=== PATIENT | female | born 1935 | race Caucasian/White ===

== ENCOUNTER → 2016-07-31 | Outpatient (CLI) | payer OTHER, MEDICARE ==
[~2016-07-31] MED LIST: ACT30 PO; ADVIN25050 INH; ALBUAER2 INH; ASPEC81 PO; ASPI81TA28 PO; ATOR-24 PO; CLC100 PO; DOCU-94 PO; FLUO20CA35 PO; FURO-85 PO; GABA-113 PO; GABA1CAP PO; GABA300C19 PO; GLC500 PO; HYDR-4079 PO; LISI40TA PO; LSX20 PO; METF-384 PO; METO25TA3 PO; MRLP17 PO; MULT-506 PO; MULTTAB58 PO; NRN/600 PO; NTRGSL/4 SL; OXYC-57 PO; POTA10CA28 PO; PRAM1AER EXT; PRAV20TA PO; PRAV40TA PO; PRLSR20 PO; PROM25TA9 PO; SENN-65 PO; VERA240T20 PO; probiotic PO
--- NOTE | 2016-07-31 13:24 | MAMMOGRAPHY REPORT ---
BILATERAL DIGITAL SCREENING MAMMOGRAM WITH CAD: 07/31/2016 TECHNIQUE: Current study was also evaluated with a Computer Aided Detection (CAD) system. Bilatera l CC and MLO views were obtained. COMPARISON: Comparison is made to exams dated: 07/28/2015 mammogram, 05/31/2011 mammogram, 2 mammogram, 07/10/2013 mammogram, 07/22/2014 mammogram, and 07/17/2013 mammogram - [facility]. BREAST COMPOSITION: There are scattered areas of fibroglandular density in both breasts. FINDINGS: No suspicious masses, calcifications, or areas of architectural distortion are noted in e ither breast. There has been no significant interval change compared to prior exams. IMPRESSION: ACR BI-RADS CATEGORY 1: NEGATIVE There is no mammographic evidence of malignancy. A 1 year screening mammogram is recommended. The p atient will receive written notification of the results. Approximately 10% of breast cancers are not detected with mammography. A negative mammographic repor t should not delay biopsy if a clinically suggestive mass is present. Cristal Barlow M.D. ah/:07/31/2016 11:55:19 Lane Marker Installer: Caroline DACOSTA(R)(M), [facility] letter sent: Normal 1/2 BI-RADS Code: ACR BI-RADS Category 1: Negative
== END | disposition home or self-care (01) ==
LOC: C.MAMM 10:20
PROVIDERS: ATTEND Family Medicine
DX: Z12.31 Encounter for screening mammogram for malignant neoplasm of breast (principal)

== ENCOUNTER 2016-12-06 13:40 | Inpatient (IN) | payer OTHER, MEDICARE ==
[~2016-12-06] VITALS: Ht 160 cm; Wt 83.7 kg
[~2016-12-06 13:40] MED LIST changes: -ASPI81TA28 PO; -ATOR-24 PO; -DOCU-94 PO; -FURO-85 PO; -GABA-113 PO; +GABA-1218 PO; -GABA300C19 PO; -HYDR-4079 PO; -METF-384 PO; -METO25TA3 PO; -MULTTAB58 PO; -NRN/600 PO; -OXYC-57 PO; -PRAV40TA PO; -PROM25TA9 PO; -SENN-65 PO
[2016-12-06] MEDS ORDERED: SODIUM CHLORIDE 0.9% 1000ML 1,000 ML IV STA (13:59)
[2016-12-06] MEDS ORDERED: PRAV40TA PO (14:20)
[2016-12-06] MEDS ORDERED: DOCU-94 PO (14:20)
[2016-12-06] MEDS ORDERED: FLUO20CA35 PO (14:20)
[2016-12-06] MEDS ORDERED: GABA-113 PO (14:20)
[2016-12-06] MEDS ORDERED: SENN-65 PO (14:20)
[2016-12-06] MEDS ORDERED: ASPI81TA28 PO (14:20)
[2016-12-06] MEDS ORDERED: PROM25TA9 PO (14:20)
[2016-12-06] MEDS ORDERED: FURO-85 PO (14:21)
[2016-12-06] MEDS ORDERED: POTA10CA28 PO (14:21)
[2016-12-06] MEDS ORDERED: MULTTAB58 PO (14:21)
[2016-12-06] MEDS ORDERED: HYDR-4079 PO (14:21)
[2016-12-06] MEDS ORDERED: LISI40TA PO (14:21)
[2016-12-06] MEDS ORDERED: METF-384 PO (14:21)
[2016-12-06] MEDS ORDERED: VERA240T20 PO (14:21)
[2016-12-06] MEDS ORDERED: PRLSR20 PO (14:21)
[2016-12-06] MEDS ORDERED: ONDANSETRON 8 MG/54 ML D5W IV STA (14:30)
[2016-12-06 14:40] LABS: BASO % 0.2 %; BASO ABS # 0.02 K/uL (0-0.2); COMPLETE YES; EOS % 1.2 %; HEMATOCRIT 34.5 % (37-47); IG% 0.2 %; LYMPH % 15.8 %; MEAN CELL VOLUME 85.8 fL (80-100); MEAN CORPUSCULAR HEMOGLOBIN 27.6 pg (25-34); MEAN CORPUSCULAR HGB CONC 32.2 g/dl (32-36); MEAN PLATELET VOLUME 11.4 fL (7.4-10.4); MONO % 5.3 %; NEUT % 77.3 %; PLATELET COUNT 237 K/uL (130-400); RED BLOOD COUNT 4.02 M/uL (4.2-5.4); WHITE BLOOD COUNT 10.15 K/uL (4.8-10.8)
[2016-12-06] MEDS: HYDROmorphone INJ 0.5 MG/0.5 ML SYR IV PRN ×2 (14:52→16:33)
--- NOTE | 2016-12-06 15:29 | DIAGNOSTIC IMAGING REPORT ---
ABDOMEN AND PELVIS CT WITHOUT CONTRAST CT DOSE: 1327.31 mGy.cm HISTORY: Pain Acute LLQ pain, prior h/o of stones TECHNIQUE: Multiaxial CT images of the abdomen and pelvis were performed without the use of intravenous and oral contrast according to the standard department stone protocol. COMPARISON STUDY: None. FINDINGS: Nonspecific bibasilar interstitial and/or dependent atelectatic change. Findings suggesting mild hepatic cirrhosis. Spleen is uniform. External hernia is present. Adrenal glands are normal. Right kidney is negative for calcification or hydronephrosis. There is a right renal extrarenal pelvis. Left kidney demonstrates several calcifications. There is a 1 cm calcification within a distended left renal pelvis. There is a small amount of perinephric as well as periureteral infiltrative change. There is a 3 mm nonobstructing calcification at the lower aspect of left kidney with an additional 5 mm calcification in mid aspect left kidney. There is moderate left hydroureter. This distends to the level of the distal left ureter where 2 obstructing calcifications are present. These measure 2 and 4 mm respectively. Bladder is midline. There are no contained bladder calcifications. Bowel pattern is remarkable for chronic sigmoid diverticulosis. There is no evidence for acute diverticulitis. There is a trace amount of reactive fluid within the pelvic cul-de-sac region. IMPRESSION: 1.Two Obstructing calculi distal left ureter measuring 2 and 4 mm respectively. 2. 1 cm calcification within a moderately distended left renal pelvis. 3. Nonobstructing additional renal calcifications as described. 4. Mild hepatic cirrhosis. 5. Chronic sigmoid diverticulosis. 6. Trace free fluid within pelvic cul-de-sac most likely reactive Electronically signed by: Neri Shankar M.D. 12/06/2016 3:28 PM Dictated Date/Time: 12/06/2016 3:21 PM
[2016-12-06 15:39] LABS: ALKALINE PHOSPHATASE 84 U/L (45-117); ALT/SGPT 15 U/L (12-78); AST/SGOT 21 U/L (15-37); BLOOD UREA NITROGEN 24 mg/dl (7-18); BUN/CREATININE RATIO 17.3 (10-20); CALCIUM 10.1 mg/dl (8.5-10.1); CARBON DIOXIDE 28 mmol/L (21-32); CHLORIDE 106 mmol/L (98-107); GLUCOSE 116 mg/dl (70-99); POTASSIUM 4.6 mmol/L (3.5-5.1); SODIUM 142 mmol/L (136-145)
[2016-12-06 16:36] LABS: URINE APPEARANCE CLEAR (CLEAR); URINE BILIRUBIN NEG (NEG); URINE COLOR YELLOW; URINE NITRITE NEG (NEG); URINE SPECIFIC GRAVITY 1.015 (1.000-1.030); UROBILINOGEN NEG (NEG); ZZUR CULT IF INDIC CLEAN CATCH NO
[2016-12-06 16:37] LABS: MANUAL MICROSCOPIC REQUIRED? NO; REVIEW REQ? NO
[2016-12-06] MEDS ORDERED: TAMSULOSIN HCL 0.4 MG CAP PO SCH (17:30)
[2016-12-06] MEDS ORDERED: ONDANSETRON INJ 2 MG/ML 2 ML VIAL IV PRN (17:30)
[2016-12-06] MEDS ORDERED: NRN/600 PO (17:32)
[2016-12-06] MEDS ORDERED: ATOR-24 PO (17:32)
[2016-12-06] MEDS ORDERED: OXYC-57 PO (17:32)
[2016-12-06] MEDS ORDERED: METO25TA3 PO (17:32)
[2016-12-06] MEDS ORDERED: GLUCOSE 40% GEL 15 GM TUBE PO PRN (17:45)
[2016-12-06] MEDS ORDERED: GLUCOSE 10 TABS/TUBE PO PRN (17:45)
[2016-12-06] MEDS ORDERED: GLUCAGON FOR INJ 1 MG VIAL SQ PRN (17:45)
[2016-12-06] MEDS ORDERED: DEXTROSE 50% 50 ML SYR IV PRN (17:45)
--- NOTE | 2016-12-06 18:18 | History and Physical ---
History & Physical Date & Time of Service: Dec 06, 2016 ~ 17:15 Chief Complaint: Lower Left Side Pain Primary Care Physician: Steve Hooker III, M.D. History of Present Illness 81 year old female who presents to the ER with left sided back pain and LLQ abdominal pain. Patient reports she woke up this morning feeling in her usual state of health. Then around 0930, the pain came on suddenly. She reports the pain was #8/10 at its worst. She reports it started on the left lower side of her back and wrapped around to her abdomen. She reports nausea but denies vomiting. No fever or chills. She denies hematuria and urinary symptoms. No chest pain, lightheadedness, dizziness, diaphoresis, or syncope. She has chronic exertional shortness of breath which is unchanged. Chronic lower extremity edema which is unchanged as well. In the ER, CT abd/pelvis is showing two obstructing calculi distal left ureter measuring 2 and 4 mm respectively. Renal functions at baseline. She was given IVF, Zofran, and Dilaudid. Past Medical/Surgical History Medical Problems: (1) CAD (coronary artery disease) Permanent Comment: 1996 - PTCA to RCA 2011 - cath that showed patent RCA and no further disease Status: Chronic (2) Chronic back pain Status: Chronic (3) CKD stage 3 due to type 1 diabetes mellitus Status: Chronic (4) DM type 2 (diabetes mellitus, type 2) Status: Chronic (5) Dyslipidemia Status: Chronic (6) GERD (gastroesophageal reflux disease) Status: Chronic Surgical Problems: (1) S/P appendectomy Status: Chronic (2) S/P cholecystectomy Status: Chronic (3) S/P hysterectomy Status: Chronic Family History Diabetes mellitus MOTHER Social History Smoking Status: Former Smoker Alcohol Use: occasionally Immunizations History of Influenza Vaccine: Yes Influenza Vaccine Date: Feb 27, 2016 History of Tetanus Vaccine?: Yes Tetanus Immunization Date: Feb 01, 2015 History of Pneumococcal: Yes Pneumococcal Date: Dec 29, 2009 Multi-Drug Resistant Organisms History of MDRO: No Allergies Coded Allergies: Adhesives (Verified Allergy, Unknown, ALLERGY TO TAPE, 09/26/11) Home Medications Scheduled Aspirin (Aspirin Ec), 81 MG PO DAILY Atorvastatin (Lipitor), 1 TAB PO DAILY Docusate Sodium (Colace), 100 MG PO BID Fluoxetine (Prozac), 20 MG PO DAILY Gabapentin (Neurontin), 1 TAB PO BID Lisinopril (Zestril), 20 MG PO DAILY Metformin Hcl (Glucophage), 500 MG PO BID Metoprolol Succ (Toprol Xl) (Toprol-Xl), 25 MG PO DAILY Multiple Vitamin (Multivitamin), 1 TAB PO DAILY Omeprazole (Prilosec), 20 MG PO DAILY Senna/Docusate Sod (Senokot S), 1 TAB PO DAILY Scheduled PRN Furosemide (Lasix), 20 MG PO DAILY PRN for edema Oxycodone/Acetaminophen 5MG/325MG (Percocet 5MG/325MG), 1 TABLET PO Q6H PRN for Pain Potassium Chloride (Micro-K Ext Rel), 10 MEQ PO DAILY PRN for with Lasix Promethazine Hcl (Phenergan), 25 MG PO Q6H PRN for Nausea Review of Systems ROS per HPI, all other systems reviewed and negative Physical Exam Vital Signs Date Time Temp Pulse Resp B/P (MAP) Pulse Ox O2 Delivery O2 Flow Rate FiO2 12/06/16 17:06 56 20 126/69 92 Room Air 12/06/16 15:30 55 16 131/65 92 Room Air 12/06/16 14:15 52 12/06/16 13:57 36.3 51 20 150/73 96 Room Air General Appearance: no apparent distress Head: normocephalic Eyes: normal inspection ENT: hearing grossly normal Neck: supple, no JVD Respiratory/Chest: lungs clear, normal breath sounds, no respiratory distress Cardiovascular: regular rate, rhythm, normal peripheral pulses, + pertinent finding (+2-3 edema BLLE) Abdomen/GI: normal bowel sounds, soft, + tenderness (LLQ) Back: no CVA tenderness Extremities/Musculoskelatal: normal inspection, no calf tenderness Neurologic/Psych: no motor/sensory deficits, alert, normal mood/affect, oriented x 3 Skin: normal color, warm/dry Diagnostics Laboratory Results Results Past 24 Hours Test 12/06/16 14:30 12/06/16 16:23 Range/Units White Blood Count 10.15 4.8-10.8 K/uL Red Blood Count 4.02 4.2-5.4 M/uL Hemoglobin 11.1 12.0-16.0 g/dL Hematocrit 34.5 37-47 % Mean Corpuscular Volume 85.8 80-100 fL Mean Corpuscular Hemoglobin 27.6 25-34 pg Mean Corpuscular Hemoglobin Concent 32.2 32-36 g/dl Platelet Count 237 130-400 K/uL Mean Platelet Volume 11.4 7.4-10.4 fL Neutrophils (%) (Auto) 77.3 % Lymphocytes (%) (Auto) 15.8 % Monocytes (%) (Auto) 5.3 % Eosinophils (%) (Auto) 1.2 % Basophils (%) (Auto) 0.2 % Neutrophils # (Auto) 7.85 1.4-6.5 K/uL Lymphocytes # (Auto) 1.60 1.2-3.4 K/uL Monocytes # (Auto) 0.54 0.11-0.59 K/uL Eosinophils # (Auto) 0.12 0-0.5 K/uL Basophils # (Auto) 0.02 0-0.2 K/uL RDW Standard Deviation 50.1 36.4-46.3 fL RDW Coefficient of Variation 15.8 11.5-14.5 % Immature Granulocyte % (Auto) 0.2 % Immature Granulocyte # (Auto) 0.02 0.00-0.02 K/uL Sodium Level 142 136-145 mmol/L Potassium Level 4.6 3.5-5.1 mmol/L Chloride Level 106 98-107 mmol/L Carbon Dioxide Level 28 21-32 mmol/L Anion Gap 8.0 3-11 mmol/L Blood Urea Nitrogen 24 7-18 mg/dl Creatinine 1.40 0.60-1.20 mg/dl Est Creatinine Clear Calc Drug Dose 33.4 ml/min Estimated GFR () 41.3 Estimated GFR (Non- 35.6 BUN/Creatinine Ratio 17.3 10-20 Random Glucose 116 70-99 mg/dl Calcium Level 10.1 8.5-10.1 mg/dl Total Bilirubin 0.3 0.2-1 mg/dl Direct Bilirubin 0-0.2 mg/dl Aspartate Amino Transf (AST/SGOT) 21 15-37 U/L Alanine Aminotransferase (ALT/SGPT) 15 12-78 U/L Alkaline Phosphatase 84 45-117 U/L Total Protein 6.5 6.4-8.2 gm/dl Albumin 3.5 3.4-5.0 gm/dl Lipase 274 73-393 U/L Chemistry Specimen Hemolysis Urine Color YELLOW Urine Appearance CLEAR CLEAR Urine pH 5.0 4.5-7.5 Urine Specific [place] 1.015 1.000-1.030 Urine Protein NEG NEG Urine Glucose (UA) NEG NEG Urine Ketones NEG NEG Urine Occult Blood 3+ NEG Urine Nitrite NEG NEG Urine Bilirubin NEG NEG Urine Urobilinogen NEG NEG Urine Leukocyte Esterase TRACE NEG Urine WBC (Auto) 1-5 0-5 /hpf Urine RBC (Auto) 10-30 0-4 /hpf Urine Hyaline Casts (Auto) 1-5 0-5 /lpf Urine Epithelial Cells (Auto) 5-10 0-5 /lpf Urine Bacteria (Auto) NEG NEG Diagnostic Radiology CT ABD/PELVIS IMPRESSION: 1.Two Obstructing calculi distal left ureter measuring 2 and 4 mm respectively. 2. 1 cm calcification within a moderately distended left renal pelvis. 3. Nonobstructing additional renal calcifications as described. 4. Mild hepatic cirrhosis. 5. Chronic sigmoid diverticulosis. 6. Trace free fluid within pelvic cul-de-sac most likely reactive Impression Assessment and Plan RENAL CALCULI, LEFT HYDROURETER - admit to med/surg - patient presenting with left lower back and LLQ pain; CT in the ER showing 2 obstructing renal calculi with moderate hydroureter - no fever or leukocytosis, U/A does not suggest UTI, so will hold on antibiotics - renal functions at baseline - IVF, around the clock Toradol, Flomax, PRN morphine - strain urine - urology consult - NPO after midnight for possible cysto CAD - stable, no reports of chest pain - continue ASA, beta adolfo, and statin DM - hgb a1c 5.6 11/2016 - hold metformin and utilize SSI while hospitalized HTN - BP controlled, continue metoprolol and lisinopril CKD STAGE III - baseline creat runs in the low 1's - creat noted to be 1.4 today - continue to monitor, avoid nephrotoxic agents when able GERD - continue PPI DVT PROPHYLAXIS - SCDs due to microscopic hematuria in the setting of renal calculi and also due to possible cysto tomorrow DISPO - In my clinical judgment this beneficiary meets acute admission criteria, established by [facility], that includes being hospitalized through two midnights. Addendum: This is a 81 year old female with a PMH of CAD, DM2, CKD stage 3, HTN presents with L groin pain; found to have kidney stones (2mm and 4mm) with hydroureter on the L. She is comfortable now after medications Nausea, which subsided with medications no fevers/chills Plan: Give IVFs, pain control, Flomax, urology consult, strain urine VTE Prophylaxis VTE Risk Assessment Done? Y/N: Yes Risk Level: Moderate
[2016-12-06 20:45] VITALS: BP 117/68; PULSE 49; TEMP 36.9; O2SAT 96; Ht 160 cm; Wt 83.7 kg
[2016-12-06] MEDS ORDERED: INSULIN ASPART 100 UNITS/ML 3 ML PEN SC SCH (21:00)
[2016-12-06] MEDS: MoRPHine SULFATE 4 MG/ML 1 ML CARP\\VIAL IV PRN (21:53)
[2016-12-06] MEDS: SODIUM CHLORIDE 0.9% 1000ML 1,000 ML IV SCH (21:53)
[2016-12-06] MEDS: KETOROLAC TROMETHAMINE 15 MG/ML VIAL IV. SCH (21:58)
[2016-12-06] MEDS: DOCUSATE SODIUM 100 MG CAP PO SCH (22:00)
[2016-12-06] MEDS: GABAPENTIN 600 MG TAB PO SCH (22:00)
--- NOTE | 2016-12-06 22:06 | EMERGENCY ROOM VISIT NOTE ---
History Report prepared by Joel: Linnea Curiel Under the Supervision of: Dr. Steve Corea M.D. First contact with patient: 13:59 Chief Complaint: ABDOMINAL PAIN Stated Complaint: LOWER LEFT SIDE PAIN Nursing Triage Summary: triage nte: pt reports left abd pain since apporx 0900. pt reports nausea. History of Present Illness The patient is a 81 year old female who presents to the Emergency Room with complaints of constant abdominal pain starting five hours ago. The patient currently rates her pain as an 8/10 in severity. She states that she felt fine when she woke up this morning. She reports that she took a Percocet at home with no relief. She notes that she has Percocet for her back pain. She complains of nausea and chills. She denies new back pain, chest pain, shortness of breath, urinary symptoms, melena, hematochezia, fevers, and numbness of tingling in her legs. She states that she has never had this pain before. Source of History: patient Onset: five hours ago Position: abdomen Symptom Intensity: 8/10 Timing: constant Associated Symptoms: + chills, + nausea, No fevers, No chest pain, No SOB, No back pain, No melena, No hematochezia, No urinary symptoms Note: The patient denies any numbness and tingling in her legs. Review of Systems See HPI for pertinent positives and negatives. A total of ten systems were reviewed and were otherwise negative. Past Medical & Surgical Medical Problems: (1) CAD (coronary artery disease) (2) Chronic back pain (3) CKD stage 3 due to type 1 diabetes mellitus (4) DM type 2 (diabetes mellitus, type 2) (5) Dyslipidemia (6) GERD (gastroesophageal reflux disease) Surgical Problems: (1) S/P appendectomy (2) S/P cholecystectomy (3) S/P hysterectomy Family History No pertinent family history Social History Smoking Status: Former Smoker Alcohol Use: none Drug Use: none Marital Status: Housing Status: lives with significant other Occupation Status: retired Current/Historical Medications Scheduled Aspirin (Aspirin Ec), 81 MG PO DAILY Atorvastatin (Lipitor), 1 TAB PO DAILY Docusate Sodium (Colace), 100 MG PO BID Fluoxetine (Prozac), 20 MG PO DAILY Gabapentin (Neurontin), 1 TAB PO BID Lisinopril (Zestril), 20 MG PO DAILY Metformin Hcl (Glucophage), 500 MG PO BID Metoprolol Succ (Toprol Xl) (Toprol-Xl), 25 MG PO DAILY Multiple Vitamin (Multivitamin), 1 TAB PO DAILY Omeprazole (Prilosec), 20 MG PO DAILY Senna/Docusate Sod (Senokot S), 1 TAB PO DAILY Scheduled PRN Furosemide (Lasix), 20 MG PO DAILY PRN for edema Oxycodone/Acetaminophen 5MG/325MG (Percocet 5MG/325MG), 1 TABLET PO Q6H PRN for Pain Potassium Chloride (Micro-K Ext Rel), 10 MEQ PO DAILY PRN for with Lasix Promethazine Hcl (Phenergan), 25 MG PO Q6H PRN for Nausea Allergies Coded Allergies: Adhesives (Verified Allergy, Unknown, ALLERGY TO TAPE, 09/26/11) Physical Exam Vital Signs Date Time Temp Pulse Resp B/P (MAP) Pulse Ox O2 Delivery O2 Flow Rate FiO2 12/06/16 17:06 56 20 126/69 92 Room Air 12/06/16 15:30 55 16 131/65 92 Room Air 12/06/16 14:15 52 12/06/16 13:57 36.3 51 20 150/73 96 Room Air Physical Exam GENERAL: Awake, alert, uncomfortable appearing, in no distress HENT: Normocephalic, atraumatic. Oropharynx unremarkable. EYES: Normal conjunctiva. Sclera non-icteric. NECK: Supple. No nuchal rigidity. FROM. No JVD. RESPIRATORY: Clear to auscultation. CARDIAC: Bradycardiac rate, normal rhythm. Extremities warm and well perfused. Pulses equal. ABDOMEN: Soft, non-distended. Left lower quadrant tenderness to palpation. No rebound or guarding. No masses. RECTAL: Deferred. MUSCULOSKELETAL: Chest examination reveals no tenderness. The back is symmetrical on inspection without obvious abnormality. There is no CVA tenderness to palpation. No joint edema. LOWER EXTREMITIES: Calves are equal size bilaterally and non-tender. No edema. No discoloration. NEURO: Normal sensorium. No sensory or motor deficits noted. SKIN: No rash or jaundice noted. Medical Decision & Procedures ER Provider Diagnostic Interpretation: Radiology results as stated below per my review and radiologist interpretation: ABDOMEN AND PELVIS CT WITHOUT CONTRAST CT DOSE: 1327.31 mGy.cm HISTORY: Pain Acute LLQ pain, prior h/o of stones TECHNIQUE: Multiaxial CT images of the abdomen and pelvis were performed without the use of intravenous and oral contrast according to the standard department stone protocol. COMPARISON STUDY: None. FINDINGS: Nonspecific bibasilar interstitial and/or dependent atelectatic change. Findings suggesting mild hepatic cirrhosis. Spleen is uniform. External hernia is present. Adrenal glands are normal. Right kidney is negative for calcification or hydronephrosis. There is a right renal extrarenal pelvis. Left kidney demonstrates several calcifications. There is a 1 cm calcification within a distended left renal pelvis. There is a small amount of perinephric as well as periureteral infiltrative change. There is a 3 mm nonobstructing calcification at the lower aspect of left kidney with an additional 5 mm calcification in mid aspect left kidney. There is moderate left hydroureter. This distends to the level of the distal left ureter where 2 obstructing calcifications are present. These measure 2 and 4 mm respectively. Bladder is midline. There are no contained bladder calcifications. Bowel pattern is remarkable for chronic sigmoid diverticulosis. There is no evidence for acute diverticulitis. There is a trace amount of reactive fluid within the pelvic cul-de-sac region. IMPRESSION: 1.Two Obstructing calculi distal left ureter measuring 2 and 4 mm respectively. 2. 1 cm calcification within a moderately distended left renal pelvis. 3. Nonobstructing additional renal calcifications as described. 4. Mild hepatic cirrhosis. 5. Chronic sigmoid diverticulosis. 6. Trace free fluid within pelvic cul-de-sac most likely reactive Electronically signed by: Neri Shankar M.D. 12/06/2016 3:28 PM Dictated Date/Time: 12/06/2016 3:21 PM Laboratory Results 12/06/16 14:30 Red Blood Count 4.02, Mean Corpuscular Volume 85.8, Mean Corpuscular Hemoglobin 27.6, Mean Corpuscular Hemoglobin Concent 32.2, Mean Platelet Volume 11.4, Neutrophils (%) (Auto) 77.3, Lymphocytes (%) (Auto) 15.8, Monocytes (%) (Auto) 5.3, Eosinophils (%) (Auto) 1.2, Basophils (%) (Auto) 0.2, Neutrophils # (Auto) 7.85, Lymphocytes # (Auto) 1.60, Monocytes # (Auto) 0.54, Eosinophils # (Auto) 0.12, Basophils # (Auto) 0.02 12/06/16 14:30 Test 12/06/16 14:30 12/06/16 16:23 White Blood Count 10.15 K/uL (4.8-10.8) Red Blood Count 4.02 M/uL (4.2-5.4) Hemoglobin 11.1 g/dL (12.0-16.0) Hematocrit 34.5 % (37-47) Mean Corpuscular Volume 85.8 fL (80-100) Mean Corpuscular Hemoglobin 27.6 pg (25-34) Mean Corpuscular Hemoglobin Concent 32.2 g/dl (32-36) Platelet Count 237 K/uL (130-400) Mean Platelet Volume 11.4 fL (7.4-10.4) Neutrophils (%) (Auto) 77.3 % Lymphocytes (%) (Auto) 15.8 % Monocytes (%) (Auto) 5.3 % Eosinophils (%) (Auto) 1.2 % Basophils (%) (Auto) 0.2 % Neutrophils # (Auto) 7.85 K/uL (1.4-6.5) Lymphocytes # (Auto) 1.60 K/uL (1.2-3.4) Monocytes # (Auto) 0.54 K/uL (0.11-0.59) Eosinophils # (Auto) 0.12 K/uL (0-0.5) Basophils # (Auto) 0.02 K/uL (0-0.2) RDW Standard Deviation 50.1 fL (36.4-46.3) RDW Coefficient of Variation 15.8 % (11.5-14.5) Immature Granulocyte % (Auto) 0.2 % Immature Granulocyte # (Auto) 0.02 K/uL (0.00-0.02) Anion Gap 8.0 mmol/L (3-11) Est Creatinine Clear Calc Drug Dose 33.4 ml/min Estimated GFR () 41.3 Estimated GFR (Non- 35.6 BUN/Creatinine Ratio 17.3 (10-20) Calcium Level 10.1 mg/dl (8.5-10.1) Total Bilirubin 0.3 mg/dl (0.2-1) Direct Bilirubin mg/dl (0-0.2) Aspartate Amino Transf (AST/SGOT) 21 U/L (15-37) Alanine Aminotransferase (ALT/SGPT) 15 U/L (12-78) Alkaline Phosphatase 84 U/L (45-117) Total Protein 6.5 gm/dl (6.4-8.2) Albumin 3.5 gm/dl (3.4-5.0) Lipase 274 U/L (73-393) Chemistry Specimen Hemolysis Urine Color YELLOW Urine Appearance CLEAR (CLEAR) Urine pH 5.0 (4.5-7.5) Urine Specific [place] 1.015 (1.000-1.030) Urine Protein NEG (NEG) Urine Glucose (UA) NEG (NEG) Urine Ketones NEG (NEG) Urine Occult Blood 3+ (NEG) Urine Nitrite NEG (NEG) Urine Bilirubin NEG (NEG) Urine Urobilinogen NEG (NEG) Urine Leukocyte Esterase TRACE (NEG) Urine WBC (Auto) 1-5 /hpf (0-5) Urine RBC (Auto) 10-30 /hpf (0-4) Urine Hyaline Casts (Auto) 1-5 /lpf (0-5) Urine Epithelial Cells (Auto) 5-10 /lpf (0-5) Urine Bacteria (Auto) NEG (NEG) Laboratory results reviewed by me Medications Administered Medications (Trade) Dose Ordered Sig/Eunice Route Start Time Stop Time Status Last Admin Dose Admin Sodium Chloride 1,000 ml @ 125 mls/hr Q8H STAT IV 12/06/16 13:59 12/06/16 18:31 DC 12/06/16 14:52 125 MLS/HR Ondansetron HCl (Zofran 8mg Iv) 8 mg NOW STAT IV 12/06/16 14:30 12/06/16 14:32 DC 12/06/16 14:52 8 MG Hydromorphone HCl (Dilaudid Inj) 0.5 mg Q15M PRN IV 12/06/16 14:30 12/06/16 20:12 DC 12/06/16 16:33 0.5 MG ECG Indication: abdominal pain Rate (beats per minute): 54 Rhythm: sinus bradycardia Findings: no acute ischemic change, no ectopy ED Course 1359: Ordered NSS 1000 ml @ 125 mls/hr IV. 1426: The patient was evaluated in room B11. A complete history and physical exam was performed. 1430: Ordered Dilaudid Inj 0.5 mg PRN IV pain, Zofran 8mg Iv 8 mg IV. 1653: I reevaluated the patient and she was still in some pain.. 170: Discussed the patient's case Dr. Sofía Garrison. The patient will be evaluated for further treatment and disposition. Medical Decision Medication Reconciliation: I attest that I have personally reviewed the patient' s current medication list Blood pressure screening: Patient was found to have an elevated blood pressure and will be further evaluated for it by the hospitalist. Triage Nursing notes reviewed. The patient's presentation and history were concerning for LLQ abdominal pain. Etiologies such as renal colic, appendicitis, diverticulitis, mesenteric ischemia, aortic pathology, infections, inflammatory bowel disease, PUD, biliary pathology, UTI, as well as others were entertained. Be evaluated. She was uncomfortable. She had sudden onset of pain. She had an IV established and was given Dilaudid and Zofran for symptom control. She was hydrated. The patient underwent CT imaging. This showed that she had multiple stones within the left ureter. The patient did require additional analgesia. Her CBC showed a mild anemia. The patient's chem panel, LFTs, lipase and urinalysis were unremarkable except for hematuria. The patient appears to be dealing with ureterolithiasis. Given the situation she will need further evaluation and management in the hospital. I discussed this with the patient and family. They were in agreement. Consultation was made with the [facility] hospitalist. Patient was evaluated in the Emergency Room for further management. Consults Time Called: 170 Consulting Physician: Dr. Sofía Garrison Returned Call: 170 Discussed the patient's case Dr. Sofía Garrison. The patient will be evaluated for further treatment and disposition. Impression Primary Impression: Ureterolithiasis Additional Impressions: Hydronephrosis Abdominal pain, left lower quadrant Scribe Attestation The scribe's documentation has been prepared under my direction and personally reviewed by me in its entirety. I confirm that the note above accurately reflects all work, treatment, procedures, and medical decision making performed by me. Departure Information Dispostion Being Evaluated By Hospitalist Referrals Steve Hooker III, M.D. (PCP) Patient Instructions My [facility] Problem Qualifiers
[2016-12-06 22:43] VITALS: BP 100/65; PULSE 59; TEMP 36.6; O2SAT 94
[2016-12-06] MEDS ORDERED: NURSING DECISION MEDICATION ORDER SCH (23:15)
[2016-12-07] MEDS: KETOROLAC TROMETHAMINE 15 MG/ML VIAL IV. SCH ×4 (02:31→20:37)
[2016-12-07] MEDS: SODIUM CHLORIDE 0.9% 1000ML 1,000 ML IV SCH ×2 (03:54→13:36)
[2016-12-07] MEDS ORDERED: INSULIN ASPART 100 UNITS/ML 3 ML PEN SC SCH ×2 (06:00→12:00)
[2016-12-07 07:28] VITALS: BP 93/61; PULSE 53; TEMP 36.5; O2SAT 93
[2016-12-07 07:33] LABS: HEMATOCRIT 29.8 % (37-47); MEAN CELL VOLUME 86.4 fL (80-100); MEAN CORPUSCULAR HEMOGLOBIN 27.5 pg (25-34); MEAN CORPUSCULAR HGB CONC 31.9 g/dl (32-36); MEAN PLATELET VOLUME 11.5 fL (7.4-10.4); PLATELET COUNT 171 K/uL (130-400); RED BLOOD COUNT 3.45 M/uL (4.2-5.4); WHITE BLOOD COUNT 5.47 K/uL (4.8-10.8)
[2016-12-07] MEDS ORDERED: NURSING VERBAL MED ORDER ONE (08:30)
[2016-12-07 08:36] LABS: BUN/CREATININE RATIO 21.1 (10-20); CREATININE 1.3 mg/dl (0.60-1.20); POTASSIUM 4.1 mmol/L (3.5-5.1)
[2016-12-07 08:46] LABS: CALCIUM 8.4 mg/dl (8.5-10.1)
[2016-12-07] MEDS: DOCUSATE SODIUM 100 MG CAP PO SCH ×2 (08:55→20:38)
[2016-12-07] MEDS: METOPROLOL SUCC 25MG EXT REL TAB PO SCH (08:55)
[2016-12-07] MEDS: LISINOPRIL 20 MG TAB PO SCH (08:55)
[2016-12-07] MEDS: GABAPENTIN 600 MG TAB PO SCH ×2 (08:55→20:38)
[2016-12-07] MEDS: DOCUSATE SODIUM/SENNA 50/8.6MG TAB PO SCH (08:55)
[2016-12-07] MEDS: ATORVASTATIN 40 MG TAB PO SCH (08:56)
[2016-12-07] MEDS: TAMSULOSIN HCL 0.4 MG CAP PO SCH (08:56)
[2016-12-07] MEDS: FLUOXETINE HCL 20 MG CAP PO SCH (08:56)
[2016-12-07] MEDS: PANTOprazole SOD 40 MG TAB PO SCH (08:56)
[2016-12-07] MEDS: ASPIRIN 81 MG ECTAB PO SCH (08:56)
[2016-12-07] MEDS: MULTIVITAMIN TAB PO SCH (08:56)
--- NOTE | 2016-12-07 10:01 | Progress Note ---
Subjective Date of Service: Dec 07, 2016. Subjective Pt evaluation today including: conversation w/ patient, physical exam, lab review, review of studies, review of inpatient medication list Saw/examined the patient in room 381 No problems/issues to note currently No dysuria, urinary frequency, no hematuria Has not passed stones no fevers/chills, no nausea/vomiting Problem List Medical Problems: (1) Abdominal pain, left lower quadrant Status: Acute (2) Hydronephrosis Status: Acute (3) Ureterolithiasis Status: Acute Review of Systems Constitutional: No fever, No chills, No weakness Abdomen: No pain, No nausea, No vomiting, No diarrhea Female : No dysuria, No urinary frequency, No hematuria Medications Current Inpatient Medications Medications (Trade) Dose Ordered Sig/Eunice Route Start Time Stop Time Status Last Admin Dose Admin Acetaminophen (Tylenol Tab) 650 mg Q4H PRN PO 12/06/16 17:30 01/05/17 17:29 Ondansetron HCl (Zofran Inj) 4 mg Q6H PRN IV 12/06/16 17:30 01/05/17 17:29 Tamsulosin HCl (Flomax Cap) 0.4 mg QAM PO 12/07/16 09:00 01/06/17 08:59 12/07/16 08:56 0.4 MG Ketorolac Tromethamine (Toradol Inj) 15 mg Q6H IV. 12/06/16 20:00 12/11/16 19:59 12/07/16 08:58 15 MG Morphine Sulfate (MoRPHine SULFATE INJ) 4 mg Q4H PRN IV 12/06/16 17:30 12/20/16 17:29 12/06/16 21:53 4 MG Sodium Chloride 1,000 ml @ 100 mls/hr Q10H IV 12/06/16 17:30 01/05/17 17:29 12/07/16 03:54 100 MLS/HR Aspirin (Ecotrin Tab) 81 mg DAILY PO 12/07/16 09:00 01/06/17 08:59 12/07/16 08:56 81 MG Atorvastatin Calcium (Lipitor Tab) 40 mg DAILY PO 12/07/16 09:00 01/06/17 08:59 12/07/16 08:56 40 MG Docusate Sodium (coLACE CAP) 100 mg BID PO 12/06/16 21:00 01/05/17 20:59 12/07/16 08:55 100 MG Fluoxetine HCl (Prozac Cap) 20 mg DAILY PO 12/07/16 09:00 01/06/17 08:59 12/07/16 08:56 20 MG Gabapentin (Neurontin Tab) 600 mg BID PO 12/06/16 21:00 01/05/17 20:59 12/07/16 08:55 600 MG Lisinopril (Zestril Tab) 20 mg DAILY PO 12/07/16 09:00 01/06/17 08:59 12/07/16 08:55 20 MG Metoprolol Succinate (Toprol Xl Tab) 25 mg DAILY PO 12/07/16 09:00 01/06/17 08:59 Multivitamins (Multivitamin Tab) 1 tab DAILY PO 12/07/16 09:00 01/06/17 08:59 12/07/16 08:56 1 TAB Senna/Docusate Sodium (Senokot S Tab) 1 tab DAILY PO 12/07/16 09:00 01/06/17 08:59 12/07/16 08:55 1 TAB Pantoprazole Sodium (Protonix Tab) 40 mg DAILY PO 12/07/16 09:00 01/06/17 08:59 12/07/16 08:56 40 MG Glucose (Glucose 40% Gel) 15-30 GRAMS 15 GRAMS... UD PRN PO 12/06/16 17:45 01/05/17 17:44 Glucose (Glucose Chew Tab) 4-8 Tablets 4 Tabl... UD PRN PO 12/06/16 17:45 01/05/17 17:44 Dextrose (Dextrose 50% 50ML Syringe) 25-50ML OF 50% DW IV FOR... UD PRN IV 12/06/16 17:45 01/05/17 17:44 Glucagon (Glucagon Inj) 1 mg UD PRN SQ 12/06/16 17:45 01/05/17 17:44 Objective Vital Signs Date Time Temp Pulse Resp B/P (MAP) Pulse Ox O2 Delivery O2 Flow Rate FiO2 12/07/16 07:28 36.5 53 19 93/61 (72) 93 Room Air 12/07/16 07:20 Room Air 12/07/16 00:00 Room Air 12/06/16 22:55 Room Air 12/06/16 22:43 36.6 59 18 100/65 (77) 94 Room Air 12/06/16 20:45 36.9 49 16 117/68 96 Room Air 12/06/16 18:51 55 18 126/58 95 12/06/16 17:06 56 20 126/69 92 Room Air 12/06/16 15:30 55 16 131/65 92 Room Air 12/06/16 14:15 52 12/06/16 13:57 36.3 51 20 150/73 96 Room Air Physical Exam General Appearance: no apparent distress Respiratory/Chest: chest non-tender, lungs clear, normal breath sounds, no respiratory distress, no accessory muscle use Cardiovascular: regular rate, rhythm, no edema, no murmur Abdomen: normal bowel sounds, non tender, soft Extremities: normal inspection, no pedal edema Laboratory Results Last 24 Hours Test 12/06/16 14:30 12/06/16 16:23 12/06/16 19:49 12/06/16 23:48 White Blood Count 10.15 K/uL Red Blood Count 4.02 M/uL Hemoglobin 11.1 g/dL Hematocrit 34.5 % Mean Corpuscular Volume 85.8 fL Mean Corpuscular Hemoglobin 27.6 pg Mean Corpuscular Hemoglobin Concent 32.2 g/dl Platelet Count 237 K/uL Mean Platelet Volume 11.4 fL Neutrophils (%) (Auto) 77.3 % Lymphocytes (%) (Auto) 15.8 % Monocytes (%) (Auto) 5.3 % Eosinophils (%) (Auto) 1.2 % Basophils (%) (Auto) 0.2 % Neutrophils # (Auto) 7.85 K/uL Lymphocytes # (Auto) 1.60 K/uL Monocytes # (Auto) 0.54 K/uL Eosinophils # (Auto) 0.12 K/uL Basophils # (Auto) 0.02 K/uL RDW Standard Deviation 50.1 fL RDW Coefficient of Variation 15.8 % Immature Granulocyte % (Auto) 0.2 % Immature Granulocyte # (Auto) 0.02 K/uL Sodium Level 142 mmol/L Potassium Level 4.6 mmol/L Chloride Level 106 mmol/L Carbon Dioxide Level 28 mmol/L Anion Gap 8.0 mmol/L Blood Urea Nitrogen 24 mg/dl Creatinine 1.40 mg/dl Est Creatinine Clear Calc Drug Dose 33.4 ml/min Estimated GFR () 41.3 Estimated GFR (Non- 35.6 BUN/Creatinine Ratio 17.3 Random Glucose 116 mg/dl Calcium Level 10.1 mg/dl Total Bilirubin 0.3 mg/dl Direct Bilirubin mg/dl Aspartate Amino Transf (AST/SGOT) 21 U/L Alanine Aminotransferase (ALT/SGPT) 15 U/L Alkaline Phosphatase 84 U/L Total Protein 6.5 gm/dl Albumin 3.5 gm/dl Lipase 274 U/L Chemistry Specimen Hemolysis Urine Color YELLOW Urine Appearance CLEAR Urine pH 5.0 Urine Specific [place] 1.015 Urine Protein NEG Urine Glucose (UA) NEG Urine Ketones NEG Urine Occult Blood 3+ Urine Nitrite NEG Urine Bilirubin NEG Urine Urobilinogen NEG Urine Leukocyte Esterase TRACE Urine WBC (Auto) 1-5 /hpf Urine RBC (Auto) 10-30 /hpf Urine Hyaline Casts (Auto) 1-5 /lpf Urine Epithelial Cells (Auto) 5-10 /lpf Urine Bacteria (Auto) NEG Bedside Glucose 91 mg/dl 97 mg/dl Test 12/07/16 05:49 12/07/16 07:10 Bedside Glucose 107 mg/dl White Blood Count 5.47 K/uL Red Blood Count 3.45 M/uL Hemoglobin 9.5 g/dL Hematocrit 29.8 % Mean Corpuscular Volume 86.4 fL Mean Corpuscular Hemoglobin 27.5 pg Mean Corpuscular Hemoglobin Concent 31.9 g/dl RDW Standard Deviation 50.5 fL RDW Coefficient of Variation 16.0 % Platelet Count 171 K/uL Mean Platelet Volume 11.5 fL Sodium Level 140 mmol/L Potassium Level 4.1 mmol/L Chloride Level 108 mmol/L Carbon Dioxide Level 22 mmol/L Anion Gap 10.0 mmol/L Blood Urea Nitrogen 27 mg/dl Creatinine 1.30 mg/dl Est Creatinine Clear Calc Drug Dose 36.0 ml/min Estimated GFR () 45.2 Estimated GFR (Non- 39.0 BUN/Creatinine Ratio 21.1 Random Glucose 89 mg/dl Calcium Level 8.4 mg/dl Chemistry Specimen Hemolysis Assessment and Plan This is a 81 year old female with a PMH of CAD, DM2, CKD stage 3, HTN presents with L groin pain; found to have kidney stones (2mm and 4mm) with hydroureter on the L. L Renal Calculi, Hydroureter CT shows a 4mm and 2mm renal calculi on the L pain is controlled for now, continue IVFs, analgesics, Flomax strain urine appreciate urology input - will add diet for patient, no planned intervention CKD stage 3 creatinine improved from 1.4 to 1.3, which is around her baseline continue IVFs monitor creatinine CAD stable continue ASA, beta adolfo, and statin DM2 Ha1c = 5.6% we can stop the sliding scale, resume oral medications on discharge HTN BP controlled; continue lisinopril and metoprolol DVT ppx SCDs FULL CODE
[2016-12-07 15:31] VITALS: BP 97/63; PULSE 57; TEMP 36.5; O2SAT 96
--- NOTE | 2016-12-07 23:42 | Urology Consultation ---
History General Date of Service: Dec 07, 2016. Primary Care Physician: Steve Hooker III, M.D. Pt seen a urologist before?: No History of Present Illness 81 y/o Female presented to the ED with left sided flank pain which started earlier this morning. The pain was severe. 8/10. It was in the right flank and wrapped around the front of the abdomen. Nausea. No vomitting. No hematuria. No dysuria. Some SOB, stable. In the ED a CT scan was performed which showed a 2 and 4mm stone in the left distal ureter. There were also several other b/l non obstructing stones. She was admitted to the hospital and urology was consulted for eval and treat of stones. Currently her pain is better controlled. No fevers. No chills. HD stable. Cr: 1.3, WBC: 5.4 Imaging Imaging: CT Laboratory Labs were reviewed and are within normal limits unless listed below. Labs are available in the chart and at [facility] Problem List Medical Problems: (1) Abdominal pain, left lower quadrant Status: Acute (2) Hydronephrosis Status: Acute (3) Ureterolithiasis Status: Acute Past History chronic back pain, coronary artery disease, high cholesterol, hypertension Past Surgical History: appendectomy, cholecystectomy, hysterectomy Family History Diabetes mellitus MOTHER Social History Hx Tobacco Use In Past Year?: No Smoking: non-smoker Alcohol: no current use Marital status: Occupation status: retired Immunizations History of Influenza Vaccine: Yes Influenza Vaccine Date: Feb 27, 2016 History of Tetanus Vaccine?: Yes Tetanus Immunization Date: Feb 01, 2015 History of Pneumococcal: Yes Pneumococcal Date: Dec 29, 2009 History of MDRO No Allergies Coded Allergies: Adhesives (Verified Allergy, Unknown, ALLERGY TO TAPE, 09/26/11) Medications Home Medications: Home Meds and Scripts Medications Dose Route/Sig Max Daily Dose Days Date Category Dose Instructions Toprol-Xl (Metoprolol Succinate) 25 Mg Tabcr 25 Mg PO DAILY 12/06/16 Reported Lipitor (Atorvastatin Calcium) 40 Mg Tab 1 Tab PO DAILY 30 12/06/16 Reported Neurontin (Gabapentin) 600 Mg Tab 1 Tab PO BID 30 12/06/16 Reported Percocet 5MG/325MG (Oxycodone/Acetaminophen) Tab 1 Tablet PO Q6H PRN 12/06/16 Reported PAIN Lasix (Furosemide) 20 Mg Tab 20 Mg PO DAILY PRN 12/06/16 Reported Micro-K Ext Rel (Potassium Chloride) 10 Meq Capcr 10 Meq PO DAILY PRN 12/06/16 Reported Multivitamin (Multiple Vitamin) 1 Tab Tab 1 Tab PO DAILY 12/06/16 Reported Zestril (Lisinopril) 40 Mg Tab 20 Mg PO DAILY 12/06/16 Reported Prilosec (Omeprazole) 20 Mg Capcr 20 Mg PO DAILY 12/06/16 Reported Glucophage (Metformin Hcl) 1,000 Mg Tab 500 Mg PO BID 12/06/16 Reported Colace (Docusate Sodium) 100 Mg Cap 100 Mg PO BID 30 12/06/16 Reported Prozac (Fluoxetine HCl) 20 Mg Cap 20 Mg PO DAILY 12/06/16 Reported Aspirin Ec (Aspirin) 81 Mg Tab 81 Mg PO DAILY 12/06/16 Reported Senokot S (Senna/Docusate Sodium) 1 Tab Tab 1 Tab PO DAILY 12/06/16 Reported Phenergan (Promethazine HCl) 25 Mg Tab 25 Mg PO Q6H PRN 12/06/16 Reported Inpatient Medications: Current Inpatient Medications Medications (Trade) Dose Ordered Sig/Eunice Route Start Time Stop Time Status Last Admin Dose Admin Acetaminophen (Tylenol Tab) 650 mg Q4H PRN PO 12/06/16 17:30 01/05/17 17:29 Ondansetron HCl (Zofran Inj) 4 mg Q6H PRN IV 12/06/16 17:30 01/05/17 17:29 Tamsulosin HCl (Flomax Cap) 0.4 mg QAM PO 12/07/16 09:00 01/06/17 08:59 12/07/16 08:56 0.4 MG Ketorolac Tromethamine (Toradol Inj) 15 mg Q6H IV. 12/06/16 20:00 12/11/16 19:59 12/07/16 20:37 15 MG Morphine Sulfate (MoRPHine SULFATE INJ) 4 mg Q4H PRN IV 12/06/16 17:30 12/20/16 17:29 12/06/16 21:53 4 MG Sodium Chloride 1,000 ml @ 100 mls/hr Q10H IV 12/06/16 17:30 01/05/17 17:29 12/07/16 13:36 100 MLS/HR Aspirin (Ecotrin Tab) 81 mg DAILY PO 12/07/16 09:00 01/06/17 08:59 12/07/16 08:56 81 MG Atorvastatin Calcium (Lipitor Tab) 40 mg DAILY PO 12/07/16 09:00 01/06/17 08:59 12/07/16 08:56 40 MG Docusate Sodium (coLACE CAP) 100 mg BID PO 12/06/16 21:00 01/05/17 20:59 12/07/16 20:38 100 MG Fluoxetine HCl (Prozac Cap) 20 mg DAILY PO 12/07/16 09:00 01/06/17 08:59 12/07/16 08:56 20 MG Gabapentin (Neurontin Tab) 600 mg BID PO 12/06/16 21:00 01/05/17 20:59 12/07/16 20:38 600 MG Lisinopril (Zestril Tab) 20 mg DAILY PO 12/07/16 09:00 01/06/17 08:59 12/07/16 08:55 20 MG Metoprolol Succinate (Toprol Xl Tab) 25 mg DAILY PO 12/07/16 09:00 01/06/17 08:59 Multivitamins (Multivitamin Tab) 1 tab DAILY PO 12/07/16 09:00 01/06/17 08:59 12/07/16 08:56 1 TAB Senna/Docusate Sodium (Senokot S Tab) 1 tab DAILY PO 12/07/16 09:00 01/06/17 08:59 12/07/16 08:55 1 TAB Pantoprazole Sodium (Protonix Tab) 40 mg DAILY PO 12/07/16 09:00 01/06/17 08:59 12/07/16 08:56 40 MG Review of Systems Review of Systems Constitutional: No fever, No chills Eyes: No blurred vision Neurological: No dizzy Endocrine: No excessive thirst Gastrointestinal: + abdominal pain Cardiovascular: No chest pain Respiratory: + shortness of breath Skin: No rash Musculoskeletal: No joint pain Ears / Nose / Throat: No hearing loss Psychologic / Mental: No nervous Female : + frequent urination, + kidney stones All Other Systems: Reviewed and Negative Physical Exam Vital Signs: Vital Signs Past 12 Hours Date Time Temp Pulse Resp B/P (MAP) Pulse Ox O2 Delivery O2 Flow Rate FiO2 12/07/16 16:15 Room Air 12/07/16 15:31 36.5 57 18 97/63 (74) 96 Room Air Physical Exam: General Appearance: WD/WN, no apparent distress ENT: normal ENT inspection, hearing grossly normal Neck: supple, no adenopathy Respiratory/Chest: chest non-tender, lungs clear Cardiovascular: regular rate, rhythm Extremities: normal range of motion, non-tender, + pedal edema Neurologic/Psychiatric: apprentice 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 They are in the distal ureter. Her pain is better controlled. Her Cr is stable and her WBC is normal. It is possible that she will be able to pass the stones on her own. I rec observation for now. She is not an ideal surgical candidate. Increase hydration. Flomax. If she hasn't passed the stones by saturday then will order KUB to eval persistence. If stones still there and her pain continues, then will consider Ureterscopy on Saturday.
[2016-12-08 00:10] VITALS: BP 117/79; PULSE 64; TEMP 36.7; O2SAT 95
[2016-12-08] MEDS: SODIUM CHLORIDE 0.9% 1000ML 1,000 ML IV SCH ×3 (00:37→20:53)
[2016-12-08] MEDS: ACETAMINOPHEN 325 MG TAB PO PRN (00:37)
[2016-12-08] MEDS: KETOROLAC TROMETHAMINE 15 MG/ML VIAL IV. SCH ×2 (02:09→07:52)
[2016-12-08 07:15] VITALS: BP 111/71; PULSE 62; TEMP 36.6; O2SAT 96
[2016-12-08] MEDS: ASPIRIN 81 MG ECTAB PO SCH (08:28)
[2016-12-08] MEDS: METOPROLOL SUCC 25MG EXT REL TAB PO SCH (08:28)
[2016-12-08] MEDS: PANTOprazole SOD 40 MG TAB PO SCH (08:28)
[2016-12-08] MEDS: DOCUSATE SODIUM 100 MG CAP PO SCH ×2 (08:29→20:53)
[2016-12-08] MEDS: FLUOXETINE HCL 20 MG CAP PO SCH (08:29)
[2016-12-08] MEDS: DOCUSATE SODIUM/SENNA 50/8.6MG TAB PO SCH (08:29)
[2016-12-08] MEDS: LISINOPRIL 20 MG TAB PO SCH (08:29)
[2016-12-08] MEDS: TAMSULOSIN HCL 0.4 MG CAP PO SCH (08:30)
[2016-12-08] MEDS: GABAPENTIN 600 MG TAB PO SCH ×2 (08:30→20:53)
[2016-12-08] MEDS: MULTIVITAMIN TAB PO SCH (08:30)
[2016-12-08] MEDS: ATORVASTATIN 40 MG TAB PO SCH (08:30)
--- NOTE | 2016-12-08 10:36 | Progress Note ---
Subjective Date of Service: Dec 08, 2016. Subjective Pt evaluation today including: conversation w/ patient, physical exam, chart review, lab review Voiding: no voiding problems Pt states that she is feeling "miserable and terrible." She has yet to pass a sizeable stone. She is voiding w/o difficulty. Urine is clear. No hematuria. No dysuria. No fevers. No chills. No nausea. No vomitting. She is still concerning about recurrent pain and states that she continues to need to take pain medicine every few hours. Problem List Medical Problems: (1) Abdominal pain, left lower quadrant Status: Acute (2) Hydronephrosis Status: Acute (3) Ureterolithiasis Status: Acute Review of Systems All Other Systems: Reviewed and Negative Objective Vital Signs Date Time Temp Pulse Resp B/P (MAP) Pulse Ox O2 Delivery O2 Flow Rate FiO2 12/08/16 07:15 36.6 62 16 111/71 (84) 96 Room Air 12/08/16 00:33 Room Air 12/08/16 00:10 36.7 64 16 117/79 (92) 95 Room Air 12/07/16 16:15 Room Air 12/07/16 15:31 36.5 57 18 97/63 (74) 96 Room Air Physical Exam General Appearance: WD/WN Eyes: normal inspection Respiratory/Chest: lungs clear Cardiovascular: regular rate, rhythm Abdomen: non tender, soft Neurologic/Psychiatric: alert Assessment and Plan (1) Ureterolithiasis (2) Hydronephrosis She seemed to pass a few small sand pieces today. No sign of larger stones documented on CT scan. Rec repeating imaging later this afternoon. If stones are still visible and her pain is present, then proceed with cystoscopy and ureteroscopy and stent placement to remove stones in distal ureter on Saturday. She also has a large stone in the left renal pelvis which would need to be treated at a future date.
--- NOTE | 2016-12-08 11:18 | DIAGNOSTIC IMAGING REPORT ---
CT SCAN OF THE ABDOMEN AND PELVIS WITHOUT IV CONTRAST CLINICAL HISTORY: Nephrolithiasis and ureteral stone. COMPARISON STUDY: Abdominal CT dated 12/06/2016. TECHNIQUE: CT scan of the abdomen and pelvis is performed from the lung bases to the proximal femora. Images are reviewed in the axial, sagittal, and coronal planes. IV contrast was not administered for this examination. Automated dose control exposure was utilized. CT DOSE: 807.13 mGy.cm FINDINGS: Lung bases: The heart is normal in size and without pericardial effusion. There is lipomatous hypertrophy of the interatrial septum. A moderate hiatal hernia is identified. There are trace pleural effusions, right larger than left with bibasilar atelectasis. Liver: The unenhanced liver is normal in size and contour. There is questionable mild nodularity of the hepatic surface contour. Early change of cirrhosis is not excluded. There is mild central intrahepatic biliary ductal dilatation. Gallbladder: Surgically absent noting clips in the gallbladder fossa. Spleen: Normal in size and attenuation. There is a calcified splenic granuloma. Pancreas: The unenhanced pancreas is atrophic and grossly unremarkable. Adrenal glands: Unremarkable. Kidneys: The unenhanced kidneys are are atrophic. Foci of cortical scarring are seen in the left lower pole. There is a 5 mm obstructing calculus at the left vesicoureteral junction seen on image #[id number]. This causes mild to moderate left-sided hydroureteronephrosis. A 1.5 cm calculus is again seen in the left renal pelvis. There is associated stranding identified around the left renal pelvis and mild urothelial thickening. The 5 mm calculus in the interpolar left kidney seen on 12/06/2016 is no longer identified and may represent the distal ureteral calculus seen today. There is a punctate nonobstructing calculus in the left lower pole. No right renal calculi are identified and there is no right-sided hydronephrosis. There is no evidence of contour deforming renal mass lesion. Abdominal vasculature: The abdominal aorta is normal in course and caliber noting moderate to advanced atherosclerotic calcification. Bowel: The small bowel and colon are normal in course and caliber. There is mild to moderate colonic diverticulosis without CT evidence of acute diverticulitis. Colonic fecal retention is observed. The appendix is not identified and reported surgically absent. Peritoneum: There is no intraperitoneal free air or abdominal ascites. Trace fluid is again noted in the cul-de-sac. There is a small fat-containing umbilical hernia. Lymphadenopathy: None. Pelvic viscera: There is a 5 mm calculus within the bladder lumen seen on image #[id number]. This is new from previous. Foci of gas are seen within the bladder lumen, and are likely related to instrumentation. The uterus is surgically absent. No adnexal lesion is seen. There are small bilateral fat-containing inguinal hernias. Skeletal structures: The skeletal structures are osteopenic. There is mild lumbosacral spondylosis. No lytic or blastic lesions are seen. IMPRESSION: 1. There is a 5 mm calculus within the bladder lumen. This is new from 12/06/2016, and likely represents a recently passed left ureteral stone seen on 12/06/2016. 2. There is a 5 mm obstructing calculus identified at the left vesicoureteral junction on today's examination, which causes mild to moderate left-sided hydroureteronephrosis. The 5 mm calculus in the interpolar left kidney seen on 12/06/2016 is no longer present, and this likely corresponds to today's distal ureteral stone. 3. A 1.5 cm calculus is again seen in the left renal pelvis, and there is an additional punctate nonobstructing left lower pole calculus. 4. No right renal calculi are identified. 5. Trace pleural effusions, right larger left with associated atelectasis. 6. Mild to moderate colonic diverticulosis without CT evidence of acute diverticulitis. 7. Foci of gas within the bladder lumen are likely related to recent instrumentation. Clinical correlation will be required. 8. Additional findings as above. Electronically signed by: Patrick Britton M.D. 12/08/2016 11:17 AM Dictated Date/Time: 12/08/2016 11:04 AM
--- NOTE | 2016-12-08 12:40 | Progress Note ---
Internal Med Progress Note Date of Service: Dec 08, 2016. Provider Documentation: SUBJECTIVE: has mild left groin and suprapubic discomfort no nausea mentions pain is controlled with IV pain meds no fever or chills OBJECTIVE: Vital Signs-as noted below Exam: General-elderly female, pleasant , no apparent distress Eyes-sclera non icteric ENT-NAD Neck-no jVD noted Lungs-CTA Heart-regular S1/S2 Abdomen-soft ,mild left CVA tenderness/suprapubic discomfort Extremities-no lower ext edema Neuro-AAO x3, no focal neurological deficit Lab data as noted below. ASSESSMENT & PLAN: This is a 81 year old female with a PMH of CAD, DM2, CKD stage 3, HTN presents with L groin pain; found to have kidney stones (2mm and 4mm) with hydroureter on the L. L Renal Calculi, Hydroureter CT abdomen /pelvis 12/06/16 shows a 4mm and 2mm renal calculi on the L -pt is continues with IV fluids , pain control repeat CT abdomen /pelvis today 12/08/16 : 1. There is a 5 mm calculus within the bladder lumen. This is new from 12/06/2016, and likely represents a recently passed left ureteral stone seen on 12/06/2016. 2. There is a 5 mm obstructing calculus identified at the left vesicoureteral junction on today's examination, which causes mild to moderate left-sided hydroureteronephrosis. The 5 mm calculus in the interpolar left kidney seen on 12/06/2016 is no longer present, and this likely corresponds to today's distal ureteral stone. -appreciate input form Urology - plan for cystoscopy and ureteroscopy and stent placement to remove stones in distal ureter on Saturday12-09-16. -NPO past midnight - large stone 1.5 cm in the left renal pelvis -will need to be treated in a future date HARJEET on CKD stage 3 due to above creatinine improved from 1.4 to 1.3, which is around her baseline will hold ACEI /Toradol pt got Approx ~5 L of IVF so far CT abdomen /pelvis shows -bilateral trace pleural effusion R> L IVF rate reduced to 80 ml /hr DC after 1 more liter monitor renal function CAD stable continue ASA, beta adolfo, and statin DM2 Ha1c = 5.6% , resume oral medications on discharge HTN BP controlled; continue metoprolol hold ACEI DVT ppx moderate risk pharmacological anticoagulation avoided due to possible urologic procedure SCDs DISPOSITION Expected to be discharged home when medically stable Vital Signs: Date Time Temp Pulse Resp B/P (MAP) Pulse Ox O2 Delivery O2 Flow Rate FiO2 12/08/16 07:15 36.6 62 16 111/71 (84) 96 Room Air 12/08/16 00:33 Room Air 12/08/16 00:10 36.7 64 16 117/79 (92) 95 Room Air 12/07/16 16:15 Room Air 12/07/16 15:31 36.5 57 18 97/63 (74) 96 Room Air Lab Results: Results Past 24 Hours Test 12/08/16 12:22 Range/Units Bedside Glucose 123 70-90 mg/dl
[2016-12-08 15:00] VITALS: BP 97/65; PULSE 54; TEMP 36.3; O2SAT 99
[2016-12-08] MEDS: MoRPHine SULFATE 4 MG/ML 1 ML CARP\\VIAL IV PRN ×2 (15:58→23:49)
[2016-12-08 23:01] VITALS: BP 130/84; PULSE 61; TEMP 36.6; O2SAT 98
[2016-12-08 23:20] VITALS: BP 137/77; PULSE 61
--- NOTE | 2016-12-09 07:19 | DIAGNOSTIC IMAGING REPORT ---
KUB CLINICAL HISTORY: renal stone renal calcification COMPARISON STUDY: No previous studies for comparison. FINDINGS: 1.6 cm calcification mid to lower aspect left kidney. Renal and psoas shows otherwise are unremarkable. Bowel pattern is nonobstructive. Several pelvic vascular calcifications. IMPRESSION: Large solitary left renal calcification. Otherwise negative study Electronically signed by: Neri Shankar M.D. 12/09/2016 7:17 AM Dictated Date/Time: 12/09/2016 7:16 AM
[2016-12-09 07:20] VITALS: BP 132/78; PULSE 60; TEMP 36.3; O2SAT 97
[2016-12-09] MEDS: METOPROLOL SUCC 25MG EXT REL TAB PO SCH (08:13)
[2016-12-09] MEDS: MoRPHine SULFATE 4 MG/ML 1 ML CARP\\VIAL IV PRN (08:13)
[2016-12-09] MEDS: DOCUSATE SODIUM/SENNA 50/8.6MG TAB PO SCH (09:00)
[2016-12-09] MEDS: MULTIVITAMIN TAB PO SCH (09:00)
[2016-12-09] MEDS: GABAPENTIN 600 MG TAB PO SCH ×2 (09:00→20:29)
[2016-12-09] MEDS: ATORVASTATIN 40 MG TAB PO SCH (09:00)
[2016-12-09] MEDS: PANTOprazole SOD 40 MG TAB PO SCH (09:00)
[2016-12-09] MEDS: TAMSULOSIN HCL 0.4 MG CAP PO SCH (09:00)
[2016-12-09] MEDS: DOCUSATE SODIUM 100 MG CAP PO SCH ×2 (09:00→20:29)
[2016-12-09] MEDS: FLUOXETINE HCL 20 MG CAP PO SCH (09:00)
[2016-12-09] MEDS: SODIUM CHLORIDE 0.9% 1000ML 1,000 ML IV SCH ×2 (09:42→20:30)
--- NOTE | 2016-12-09 13:59 | Progress Note ---
Subjective Date of Service: Dec 09, 2016. Subjective Pt evaluation today including: conversation w/ patient, physical exam, lab review, review of studies, review of inpatient medication list Saw/examined the patient in room 381 L groin pain - intermittent, improved with meds No dysuria, no hematuria Problem List Medical Problems: (1) Abdominal pain, left lower quadrant Status: Acute (2) Hydronephrosis Status: Acute (3) Ureterolithiasis Status: Acute Review of Systems Constitutional: No fever, No chills Respiratory: No cough, No sputum, No shortness of breath Cardiac: No chest pain Abdomen: No pain, No nausea, No vomiting, No diarrhea Female : No dysuria, No urinary frequency, No hematuria Heme: No abnormal bleeding/bruising Medications Current Inpatient Medications Medications (Trade) Dose Ordered Sig/Eunice Route Start Time Stop Time Status Last Admin Dose Admin Acetaminophen (Tylenol Tab) 650 mg Q4H PRN PO 12/06/16 17:30 01/05/17 17:29 12/08/16 00:37 650 MG Ondansetron HCl (Zofran Inj) 4 mg Q6H PRN IV 12/06/16 17:30 01/05/17 17:29 Tamsulosin HCl (Flomax Cap) 0.4 mg QAM PO 12/07/16 09:00 01/06/17 08:59 12/08/16 08:30 0.4 MG Morphine Sulfate (MoRPHine SULFATE INJ) 4 mg Q4H PRN IV 12/06/16 17:30 12/20/16 17:29 12/09/16 08:13 4 MG Sodium Chloride 1,000 ml @ 80 mls/hr [id number] IV 12/06/16 17:30 01/05/17 17:29 12/08/16 20:53 80 MLS/HR Aspirin (Ecotrin Tab) 81 mg DAILY PO 12/07/16 09:00 01/06/17 08:59 Future Hold 12/08/16 08:28 81 MG Atorvastatin Calcium (Lipitor Tab) 40 mg DAILY PO 12/07/16 09:00 01/06/17 08:59 12/08/16 08:30 40 MG Docusate Sodium (coLACE CAP) 100 mg BID PO 12/06/16 21:00 01/05/17 20:59 6/24/17 20:53 100 MG Fluoxetine HCl (Prozac Cap) 20 mg DAILY PO 12/07/16 09:00 01/06/17 08:59 12/08/16 08:29 20 MG Gabapentin (Neurontin Tab) 600 mg BID PO 12/06/16 21:00 01/05/17 20:59 12/08/16 20:53 600 MG Metoprolol Succinate (Toprol Xl Tab) 25 mg DAILY PO 12/07/16 09:00 01/06/17 08:59 12/09/16 08:13 25 MG Multivitamins (Multivitamin Tab) 1 tab DAILY PO 12/07/16 09:00 01/06/17 08:59 12/08/16 08:30 1 TAB Senna/Docusate Sodium (Senokot S Tab) 1 tab DAILY PO 12/07/16 09:00 01/06/17 08:59 12/08/16 08:29 1 TAB Pantoprazole Sodium (Protonix Tab) 40 mg DAILY PO 12/07/16 09:00 01/06/17 08:59 12/08/16 08:28 40 MG Objective Vital Signs Date Time Temp Pulse Resp B/P (MAP) Pulse Ox O2 Delivery O2 Flow Rate FiO2 12/09/16 08:15 Room Air 12/09/16 07:20 36.3 60 16 132/78 (96) 97 12/08/16 23:20 61 137/77 (97) 12/08/16 23:01 36.6 61 18 130/84 (99) 98 Room Air 12/08/16 19:15 Room Air 12/08/16 15:40 Room Air 12/08/16 15:00 36.3 54 16 97/65 (76) 99 Room Air Physical Exam General Appearance: no apparent distress Respiratory/Chest: lungs clear, normal breath sounds, no respiratory distress, no accessory muscle use Cardiovascular: regular rate, rhythm, no edema, no murmur Abdomen: normal bowel sounds, non tender, soft Laboratory Results Last 24 Hours Test 12/08/16 16:49 12/08/16 20:35 12/09/16 06:13 12/09/16 12:04 Bedside Glucose 107 mg/dl 113 mg/dl 96 mg/dl 90 mg/dl Assessment and Plan This is a 81 year old female with a PMH of CAD, DM2, CKD stage 3, HTN presents with L groin pain; found to have kidney stones (2mm and 4mm) with hydroureter on the L. L Renal Calculi, Hydroureter 12/[address] shows residual stones continue Flomax + analgesics appreciate urology input possible d/c on 12/10 12/07 CT shows a 4mm and 2mm renal calculi on the L pain is controlled for now, continue IVFs, analgesics, Flomax strain urine appreciate urology input - will add diet for patient, no planned intervention CKD stage 3 creatinine improved from 1.4 to 1.3, which is around her baseline continue IVFs monitor creatinine CAD stable continue ASA, beta adolfo, and statin DM2 Ha1c = 5.6% we can stop the sliding scale, resume oral medications on discharge HTN BP controlled; continue lisinopril and metoprolol DVT ppx SCDs FULL CODE
--- NOTE | 2016-12-09 14:05 | Progress Note ---
Subjective Date of Service: Dec 09, 2016. Subjective Pt evaluation today including: conversation w/ patient Voiding: no voiding problems Pt feeling better today. Less pain and discomfort on the left side. CT scan yesterday showed that she passed 1 of the 2 distal stones. She did not notice it herself. KUB this AM did not show any distal ureteral stones. Only the large renal pelvis calcification. No nausea. No vomitting. No hem. No dys. Problem List Medical Problems: (1) Abdominal pain, left lower quadrant Status: Acute (2) Hydronephrosis Status: Acute (3) Ureterolithiasis Status: Acute Review of Systems All Other Systems: Reviewed and Negative Objective Vital Signs Date Time Temp Pulse Resp B/P (MAP) Pulse Ox O2 Delivery O2 Flow Rate FiO2 12/09/16 08:15 Room Air 12/09/16 07:20 36.3 60 16 132/78 (96) 97 12/08/16 23:20 61 137/77 (97) 12/08/16 23:01 36.6 61 18 130/84 (99) 98 Room Air 12/08/16 19:15 Room Air 12/08/16 15:40 Room Air 12/08/16 15:00 36.3 54 16 97/65 (76) 99 Room Air Physical Exam General Appearance: WD/WN Eyes: normal inspection Cardiovascular: regular rate, rhythm Abdomen: non tender Neurologic/Psychiatric: alert Skin: no rash Laboratory Results Last 24 Hours Test 12/08/16 16:49 12/08/16 20:35 12/09/16 06:13 12/09/16 12:04 Bedside Glucose 107 mg/dl 113 mg/dl 96 mg/dl 90 mg/dl Assessment and Plan (1) Ureterolithiasis (2) Hydronephrosis She is doing better today. Likely has passed both ureteral stones. Cr at baseline. Minimal discomfort. She still has a large left renal pelvis stone that will need to be treated at some point. Can f/u as outpt with Dr. Villasenor to further discuss in 2-4 weeks. OK to discharge from Urology point of view.
[2016-12-09 14:58] VITALS: BP 102/65; PULSE 57; TEMP 36.7; O2SAT 97
[2016-12-09 19:30] VITALS: O2SAT 97
[2016-12-09 23:10] VITALS: BP 147/84; PULSE 61; TEMP 36.8; O2SAT 95
[2016-12-10] MEDS: ACETAMINOPHEN 325 MG TAB PO PRN (00:03)
[2016-12-10 06:36] LABS: HEMATOCRIT 27.9 % (37-47); MEAN CELL VOLUME 86.1 fL (80-100); MEAN CORPUSCULAR HEMOGLOBIN 28.1 pg (25-34); MEAN CORPUSCULAR HGB CONC 32.6 g/dl (32-36); MEAN PLATELET VOLUME 10.9 fL (7.4-10.4); PLATELET COUNT 190 K/uL (130-400); RED BLOOD COUNT 3.24 M/uL (4.2-5.4); WHITE BLOOD COUNT 5.24 K/uL (4.8-10.8)
[2016-12-10 06:57] VITALS: BP 126/68; PULSE 58; TEMP 36.5; O2SAT 97
[2016-12-10 07:08] LABS: BUN/CREATININE RATIO 18.8 (10-20); CALCIUM 8.5 mg/dl (8.5-10.1); CREATININE 1.2 mg/dl (0.60-1.20); POTASSIUM 4.4 mmol/L (3.5-5.1)
[2016-12-10] MEDS: METOPROLOL SUCC 25MG EXT REL TAB PO SCH (09:00)
[2016-12-10] MEDS: TAMSULOSIN HCL 0.4 MG CAP PO SCH (09:12)
[2016-12-10] MEDS: MULTIVITAMIN TAB PO SCH (09:12)
[2016-12-10] MEDS: PANTOprazole SOD 40 MG TAB PO SCH (09:12)
[2016-12-10] MEDS: DOCUSATE SODIUM 100 MG CAP PO SCH (09:12)
--- NOTE | 2016-12-10 09:12 | Progress Note ---
Subjective Date of Service: Dec 10, 2016. Subjective Pt evaluation today including: conversation w/ patient, physical exam, lab review, review of studies, review of inpatient medication list Saw/examined the patient in room 381 She's doing well today, seated in a chair; reading a newspaper In no distress No pain, no nausea/vomiting, no fevers/chills Problem List Medical Problems: (1) Abdominal pain, left lower quadrant Status: Acute (2) Hydronephrosis Status: Acute (3) Ureterolithiasis Status: Acute Review of Systems Constitutional: No fever, No chills Abdomen: No pain, No nausea, No vomiting, No diarrhea Female : No dysuria, No urinary frequency, No hematuria Medications Current Inpatient Medications Medications (Trade) Dose Ordered Sig/Eunice Route Start Time Stop Time Status Last Admin Dose Admin Acetaminophen (Tylenol Tab) 650 mg Q4H PRN PO 12/06/16 17:30 01/05/17 17:29 12/10/16 00:03 650 MG Ondansetron HCl (Zofran Inj) 4 mg Q6H PRN IV 12/06/16 17:30 01/05/17 17:29 Tamsulosin HCl (Flomax Cap) 0.4 mg QAM PO 12/07/16 09:00 01/06/17 08:59 12/08/16 08:30 0.4 MG Morphine Sulfate (MoRPHine SULFATE INJ) 4 mg Q4H PRN IV 12/06/16 17:30 12/20/16 17:29 12/09/16 08:13 4 MG Aspirin (Ecotrin Tab) 81 mg DAILY PO 12/07/16 09:00 01/06/17 08:59 Future Hold 12/08/16 08:28 81 MG Atorvastatin Calcium (Lipitor Tab) 40 mg DAILY PO 12/07/16 09:00 01/06/17 08:59 12/08/16 08:30 40 MG Docusate Sodium (coLACE CAP) 100 mg BID PO 12/06/16 21:00 01/05/17 20:59 12/09/16 20:29 100 MG Fluoxetine HCl (Prozac Cap) 20 mg DAILY PO 12/07/16 09:00 01/06/17 08:59 12/08/16 08:29 20 MG Gabapentin (Neurontin Tab) 600 mg BID PO 12/06/16 21:00 01/05/17 20:59 12/09/16 20:29 600 MG Metoprolol Succinate (Toprol Xl Tab) 25 mg DAILY PO 12/07/16 09:00 01/06/17 08:59 12/09/16 08:13 25 MG Multivitamins (Multivitamin Tab) 1 tab DAILY PO 12/07/16 09:00 01/06/17 08:59 12/08/16 08:30 1 TAB Senna/Docusate Sodium (Senokot S Tab) 1 tab DAILY PO 12/07/16 09:00 01/06/17 08:59 12/08/16 08:29 1 TAB Pantoprazole Sodium (Protonix Tab) 40 mg DAILY PO 12/07/16 09:00 01/06/17 08:59 12/08/16 08:28 40 MG Objective Vital Signs Date Time Temp Pulse Resp B/P (MAP) Pulse Ox O2 Delivery O2 Flow Rate FiO2 12/10/16 07:10 Room Air 12/10/16 06:57 36.5 58 18 126/68 (87) 97 Room Air 12/10/16 00:00 Room Air 12/09/16 23:10 36.8 61 16 147/84 (105) 95 Room Air 12/09/16 19:30 97 Room Air 12/09/16 14:58 36.7 57 16 102/65 (77) 97 Room Air Physical Exam General Appearance: no apparent distress Respiratory/Chest: no respiratory distress, no accessory muscle use Abdomen: normal bowel sounds, non tender, soft Laboratory Results Last 24 Hours Test 12/09/16 12:04 12/09/16 17:02 12/09/16 20:46 12/10/16 06:01 Bedside Glucose 90 mg/dl 98 mg/dl 99 mg/dl White Blood Count 5.24 K/uL Red Blood Count 3.24 M/uL Hemoglobin 9.1 g/dL Hematocrit 27.9 % Mean Corpuscular Volume 86.1 fL Mean Corpuscular Hemoglobin 28.1 pg Mean Corpuscular Hemoglobin Concent 32.6 g/dl RDW Standard Deviation 51.0 fL RDW Coefficient of Variation 16.2 % Platelet Count 190 K/uL Mean Platelet Volume 10.9 fL Sodium Level 143 mmol/L Potassium Level 4.4 mmol/L Chloride Level 112 mmol/L Carbon Dioxide Level 24 mmol/L Anion Gap 7.0 mmol/L Blood Urea Nitrogen 23 mg/dl Creatinine 1.20 mg/dl Est Creatinine Clear Calc Drug Dose 39.0 ml/min Estimated GFR () 49.8 Estimated GFR (Non- 43.0 BUN/Creatinine Ratio 18.8 Random Glucose 85 mg/dl Calcium Level 8.5 mg/dl Test 12/10/16 08:09 Bedside Glucose 93 mg/dl Assessment and Plan This is a 81 year old female with a PMH of CAD, DM2, CKD stage 3, HTN presents with L groin pain; found to have kidney stones (2mm and 4mm) with hydroureter on the L. L Renal Calculi, Hydroureter 12/10 appreciate urology input will d/c home today outpatient urology follow-up due to the L renal pelvis stone outpatient PCP follow-up 12/[address] shows residual stones continue Flomax + analgesics appreciate urology input possible d/c on 12/10 12/07 CT shows a 4mm and 2mm renal calculi on the L pain is controlled for now, continue IVFs, analgesics, Flomax strain urine appreciate urology input - will add diet for patient, no planned intervention CKD stage 3 creatinine improved from 1.4 to 1.3, which is around her baseline continue IVFs monitor creatinine CAD stable continue ASA, beta adolfo, and statin DM2 Ha1c = 5.6% we can stop the sliding scale, resume oral medications on discharge HTN BP controlled; continue lisinopril and metoprolol DVT ppx SCDs FULL CODE
[2016-12-10] MEDS: GABAPENTIN 600 MG TAB PO SCH (09:14)
[2016-12-10] MEDS: ATORVASTATIN 40 MG TAB PO SCH (09:14)
[2016-12-10] MEDS: DOCUSATE SODIUM/SENNA 50/8.6MG TAB PO SCH (09:14)
[2016-12-10] MEDS: FLUOXETINE HCL 20 MG CAP PO SCH (09:15)
--- NOTE | 2016-12-10 09:20 | Discharge Instructions ---
Discharge Instructions Date of Service Dec 10, 2016. Admission Reason for Admission: Lower Left Side Pain Discharge Discharge Diagnosis / Problem: L renal calculi, hydroureter Discharge Goals Goal(s): Decrease discomfort, Improve function, Diagnostic testing, Therapeutic intervention Activity Recommendations Activity Limitations: resume your previous activity . Instructions / Follow-Up Instructions / Follow-Up Please follow-up with Dr. Hooker on December 14 at 11:05AM Please follow-up with Dr. Villasenor on January 03 at 12:15PM Current Hospital Diet Patient's current hospital diet: AHA Diet (Heart Healthy), Diabetes Type 2 Diet Discharge Diet Recommended Diet: AHA Diet (Heart Healthy), Diabetes Type 2 Diet Pending Studies Studies pending at discharge: no Medical Emergencies . Who to Call and When: Medical Emergencies: If at any time you feel your situation is an emergency, please call 911 immediately. . Non-Emergent Contact Non-Emergency issues call your: Primary Care Provider, Urologist . . "Provider Documentation" section prepared by Mari Lay. . VTE Core Measure Inpt VTE Proph given/why not?: SCD's
--- NOTE | 2016-12-10 09:22 | Discharge Summary ---
Discharge Summary Date of Service Dec 10, 2016. Discharge Summary Admission Date: Dec 06, 2016 at 17:26 Discharge Date: Dec 10, 2016 Discharge Disposition: Home Principal Diagnosis: L ureteral calculi, hydroureter Medication Reconciliation Continued Medications: Aspirin (Aspirin Ec) 81 Mg Tab 81 MG PO DAILY Atorvastatin (Lipitor) 40 Mg Tab 1 TAB PO DAILY for 30 Days, #30 TAB 5 Refills Docusate Sodium (Colace) 100 Mg Cap 100 MG PO BID for 30 Days, #60 CAP Fluoxetine (Prozac) 20 Mg Cap 20 MG PO DAILY, CAP Furosemide (Lasix) 20 Mg Tab 20 MG PO DAILY PRN for edema, TAB Gabapentin (Neurontin) 600 Mg Tab 1 TAB PO BID for 30 Days, #60 TAB 3 Refills Lisinopril (Zestril) 40 Mg Tab 20 MG PO DAILY, TAB Metformin Hcl (Glucophage) 1,000 Mg Tab 500 MG PO BID, TAB Metoprolol Succ (Toprol Xl) (Toprol-Xl) 25 Mg Tabcr 25 MG PO DAILY, #30 TAB Multiple Vitamin (Multivitamin) 1 Tab Tab 1 TAB PO DAILY, TAB Omeprazole (Prilosec) 20 Mg Capcr 20 MG PO DAILY, CAP Oxycodone/Acetaminophen 5MG/325MG (Percocet 5MG/325MG) Tab 1 TABLET PO Q6H PRN for Pain, TAB PAIN Potassium Chloride (Micro-K Ext Rel) 10 Meq Capcr 10 MEQ PO DAILY PRN for with Lasix, CAP Promethazine Hcl (Phenergan) 25 Mg Tab 25 MG PO Q6H PRN for Nausea, TAB Senna/Docusate Sod (Senokot S) 1 Tab Tab 1 TAB PO DAILY, TAB Admission Information HPI (per Admitting provider): 81 year old female who presents to the ER with left sided back pain and LLQ abdominal pain. Patient reports she woke up this morning feeling in her usual state of health. Then around 0930, the pain came on suddenly. She reports the pain was #8/10 at its worst. She reports it started on the left lower side of her back and wrapped around to her abdomen. She reports nausea but denies vomiting. No fever or chills. She denies hematuria and urinary symptoms. No chest pain, lightheadedness, dizziness, diaphoresis, or syncope. She has chronic exertional shortness of breath which is unchanged. Chronic lower extremity edema which is unchanged as well. In the ER, CT abd/pelvis is showing two obstructing calculi distal left ureter measuring 2 and 4 mm respectively. Renal functions at baseline. She was given IVF, Zofran, and Dilaudid. Physical Exam (per Admitting): General Appearance: no apparent distress Head: normocephalic Eyes: normal inspection ENT: hearing grossly normal Neck: supple, no JVD Respiratory/Chest: lungs clear, normal breath sounds, no respiratory distress Cardiovascular: regular rate, rhythm, normal peripheral pulses, + pertinent finding (+2-3 edema BLLE) Abdomen/GI: normal bowel sounds, soft, + tenderness (LLQ) Back: no CVA tenderness Extremities/Musculoskelatal: normal inspection, no calf tenderness Neurologic/Psych: no motor/sensory deficits, alert, normal mood/affect, oriented x 3 Skin: normal color, warm/dry Hospital Course This is a 81 year old female with a PMH of CAD, DM2, CKD stage 3, HTN presents with L groin pain; found to have kidney stones (2mm and 4mm) with hydroureter on the L. L Renal Calculi, Hydroureter 12/10 appreciate urology input will d/c home today outpatient urology follow-up due to the L renal pelvis stone outpatient PCP follow-up 12/[address] shows residual stones continue Flomax + analgesics appreciate urology input possible d/c on 12/10 12/07 CT shows a 4mm and 2mm renal calculi on the L pain is controlled for now, continue IVFs, analgesics, Flomax strain urine appreciate urology input - will add diet for patient, no planned intervention CKD stage 3 creatinine improved from 1.4 to 1.3, which is around her baseline continue IVFs monitor creatinine CAD stable continue ASA, beta adolfo, and statin DM2 Ha1c = 5.6% we can stop the sliding scale, resume oral medications on discharge HTN BP controlled; continue lisinopril and metoprolol DVT ppx SCDs FULL CODE Total time spent on discharge = 25 minutes This includes examination of the patient, discharge planning, medication reconciliation, and communication with other providers. Discharge Instructions Please follow-up with Dr. Hooker on December 14 at 11:05AM Please follow-up with Dr. Villasenor on January 03 at 12:15PM
[2016-12-10 10:25] VITALS: BP 126/68; PULSE 58; TEMP 36.5; O2SAT 97
== END 2016-12-10 11:05 | disposition home or self-care (01) | DRG 694 ==
LOC: C.EDB 13:41 → C.MSN 17:26 → EDBEDREQSVC 17:52 → ENRESERV 17:53
PROVIDERS: ADMIT Family Medicine; ATTEND Family Medicine
DX: N20.0 Calculus of kidney (principal); N13.4 Hydroureter; N18.3 Chronic kidney disease, stage 3 (moderate); I25.10 Atherosclerotic heart disease of native coronary artery without angina pectoris; G89.29 Other chronic pain; E78.5 Hyperlipidemia, unspecified; K21.9 Gastro-esophageal reflux disease without esophagitis; E11.22 Type 2 diabetes mellitus with diabetic chronic kidney disease; Z90.49 Acquired absence of other specified parts of digestive tract; Z90.710 Acquired absence of both cervix and uterus; Z87.891 Personal history of nicotine dependence; Z79.82 Long term (current) use of aspirin

== ENCOUNTER → 2017-08-02 | Outpatient (CLI) | payer OTHER, MEDICARE ==
[~2017-08-02] MED LIST changes: -ACT30 PO; -ADVIN25050 INH; -ALBUAER2 INH; -ASPEC81 PO; +ASPI81TA28 PO; +ATOR-24 PO; -CLC100 PO; +DOCU-94 PO; +FURO-85 PO; -GABA-1218 PO; -GABA1CAP PO; -GLC500 PO; -LSX20 PO; +METF-384 PO; +METO25TA3 PO; -MRLP17 PO; -MULT-506 PO; +MULTTAB58 PO; +NRN/600 PO; -NTRGSL/4 SL; +OXYC-57 PO; -PRAM1AER EXT; -PRAV20TA PO; +PROM25TA9 PO; +SENN-65 PO; -VERA240T20 PO; -probiotic PO
--- NOTE | 2017-08-02 14:59 | MAMMOGRAPHY REPORT ---
BILATERAL DIGITAL SCREENING MAMMOGRAM TOMOSYNTHESIS WITH CAD: 08/02/2017 CLINICAL HISTORY: Routine screening. Patient has no complaints. TECHNIQUE: Breast tomosynthesis in addition to standard 2D mammography was performed. Current study was also evaluated with a Computer Aided Detection (CAD) system. COMPARISON: Comparison is made to exams dated: 07/31/2016 mammogram, 07/28/2015 mammogram, 07/22/2014 ul trasound, 07/22/2014 mammogram, 01/15/2014 ultrasound, and 01/15/2014 mammogram - [facility]. BREAST COMPOSITION: There are scattered areas of fibroglandular density in both breasts. FINDINGS: No suspicious masses, calcifications, or areas of architectural distortion are noted in ei ther breast. There has been no significant interval change compared to prior exams. IMPRESSION: ACR BI-RADS CATEGORY 1: NEGATIVE There is no mammographic evidence of malignancy. A 1 year screening mammogram is recommended. The pa tient will receive written notification of the results. Approximately 10% of breast cancers are not detected with mammography. A negative mammographic report should not delay biopsy if a clinically suggestive mass is present. Cristal Barlow M.D. /:08/02/2017 12:26:22 English Language Arts Teacher: Saumya DACOSTA(Jeannine)(Lidya), [facility] letter sent: Normal 1/2 BI-RADS Code: ACR BI-RADS Category 1: Negative
== END | disposition home or self-care (01) ==
LOC: C.MAMM 10:41
PROVIDERS: ATTEND Family Medicine
DX: Z12.31 Encounter for screening mammogram for malignant neoplasm of breast (principal)

== ENCOUNTER 2019-08-20 16:27 | Inpatient (IN) ==
[2019-08-20] MEDS ORDERED: ASPIRIN CHEW 324 MG PO STA (16:38)
--- NOTE | 2019-08-20 16:59 | XRay Report ---
XR chest 2V PA/lateral HISTORY: 84 years-old Female Chest Pain acute atypical chest pain with cardiac palpitations COMPARISON: CT abdomen and pelvis 12/08/2016 TECHNIQUE: PA and lateral views of the chest FINDINGS: Cardiac silhouette is mildly enlarged. Small to moderate hiatal hernia redemonstrated. Calcified plaq ue of the thoracic aortic arch. No pneumothorax, pleural effusion, airspace consolidation or overt pu lmonary edema. Lungs are mildly hyperinflated. Cholecystectomy. Multiple healed remote left-sided rib fractures. Degenerative changes of the shoulders and spine. IMPRESSION: 1. Cardiomegaly without acute process. 2. Hiatal hernia. ACT 112: Negative or not required by law. The above report was generated using voice recognition software. It may contain grammatical, syntax o r spelling errors. Results electronically sent 08/20/2019 4:57 PM to: Isma Trinidad Electronically signed by: Edy Pierce M.D. 08/20/2019 4:57 PM
[2019-08-20 17:22] LABS: Basophils # (auto) 0.02 K/uL (0-0.2); Basophils % (auto) 0.3 %; Eosinophils # (auto) 0.19 K/uL (0-0.5); Eosinophils % (auto) 2.5 %; Hematocrit (blood only) 39.9 % (37-47); Hemoglobin 12.4 g/dL (12.0-16.0); Immature Granulocytes # (auto) 0.01 K/uL (0.00-0.02); Immature Granulocytes % (auto) 0.1 %; Lymphocytes # (auto) 2.61 K/uL (1.2-3.4); Lymphocytes % (auto) 34.2 %; Mean Corpuscular Hemoglobin 25.5 pg (25-34); Mean Corpuscular Hgb Conc 31.1 g/dL (32-36); Mean Corpuscular Volume 82.1 fL (80-100); Monocytes # (auto) 0.43 K/uL (0.11-0.59); Monocytes % (auto) 5.6 %; Neutrophils # (auto) 4.37 K/uL (1.4-6.5); Neutrophils % (auto) 57.3 %; Platelet Count 279 K/uL (130-400); RDW Coefficient of Variation 16.2 % (11.5-14.5); RDW Standard Deviation 48.5 fL (36.4-46.3); Red Blood Count 4.86 M/uL (4.2-5.4); White Blood Count 7.63 K/uL (4.8-10.8)
[2019-08-20 17:33] LABS: INR 1.2 (0.9-1.1); Partial Thromboplastin Time 28.2 Seconds (21.0-31.0)
[2019-08-20 17:38] LABS: BUN Creatinine Ratio 15.4 (10-20); Blood Urea Nitrogen 27 mg/dl (7-18); Calcium 9.2 mg/dl (8.5-10.1); Carbon Dioxide 27 mmol/L (21-32); Chloride 106 mmol/L (98-107); Est GFR (African American) 30.5; Est GFR (Non-African American) 26.3; Glucose 112 mg/dl (70-99); Lipase 196 U/L (73-393); Potassium 3.7 mmol/L (3.5-5.1); Sodium 138 mmol/L (136-145)
[2019-08-20 17:43] LABS: NT Pro B Type Natriuretic Pept 7176 pg/ml (0-1800); Troponin I < 0.015 ng/ml (0-0.045)
[2019-08-20] MEDS ORDERED: Heparin IV Standard *NO* Bolus ONE (17:52)
[2019-08-20] MEDS: HEPARIN SODIUM/DEXTROSE 25,000 UNITS/500 ML BAG IV SCH (18:33)
--- NOTE | 2019-08-20 19:11 | History & Physical Report ---
Date of Service August 20, 2019 Assessment & Plan (1) A-fib: (2) Chest pain: This is an 84-year-old female who has significant PMH of CAD, HTN, HLD, T2DM, asthma, GERD, history of sacroiliitis, CKD stage III baseline creatinine 1.7, depression who presents to ED secondary to CHOUDHARY and chest tightness x2 weeks. Patient with new onset atrial fibrillation diagnosed on 08/18/2019. She is symptomatic of this rhythm with CHOUDHARY, chest tightness and fatigue. [id number] (age, sex, HTN, DM, CAD, CHF) Admit to telemetry Consult cardiology hold eliquis Continue IV heparin drip Increase metoprolol tartrate 25 mg every 6 hours for improved rate control Replete electrolytes including magnesium and potassium keeping above 2.0 and 4.0 respectively N.p.o. after midnight must r/o DVT/PE with venous Doppler and VQ scan given recent report of travel to [place] and increased edema during trip echocardiogram done 08/17 TSH WNL on 08/17 trend troponin no s/sx of volume overload on exam (3) Hypomagnesemia: Magnesium 1.4 Replete repeat mag level in a.m. (4) CAD (coronary artery disease): History of PTCA and balloon angioplasty in Follows [facility] cardiology Continue ASA, statin, lisinopril, metoprolol, Imdur Cycle troponins Recent echocardiogram on 08/17 revealed EF 55% without wall motion abnormality (5) Diastolic CHF: euvolemic Lasix increased to 40mg daily x 3 days (starting 08/19) then to return to 20mg daily continue 40mg for now with KCL then resume to home dose pro bnp [id number] today (was [id number] in outpt clinic) continue lisinopril, metoprolol (6) DM type 2 (diabetes mellitus, type 2): Last A1c 6.2 on 03/09/2019 Admitting glucose 112 AC/at bedtime per protocol NovoLog sliding scale per protocol (7) HTN (hypertension): Blood pressure stable Continue lisinopril, Lasix, metoprolol (8) Dyslipidemia: Continue statin (9) CKD stage 3 due to type 1 diabetes mellitus: Baseline creatinine 1.7 BUN/creatinine 27 and 1.77 today Monitor BMP (10) GERD (gastroesophageal reflux disease): Continue PPI (11) Chronic back pain: hx of sacroilitis on oxycodone apap 10mg q6hr prn (12) DVT prophylaxis: IV heparin Disposition: admit to tele Follow up: PCP Dr. Hooker upon discharge along with appropriate cardiology follow up Pt was seen and examined in collaboration with Dr. Morris, please see addendum History of Present Illness Chief Complaint: CHOUDHARY and chest tightness x2 weeks. Primary Care Provider: Steve Hooker MD This is an 84-year-old female who has significant PMH of CAD, HTN, HLD, T2DM, asthma, GERD, history of sacroiliitis, CKD stage III baseline creatinine 1.7, depression who presents to ED secondary to CHOUDHARY and chest tightness x2 weeks. Over the past 2 weeks she complains of feeling overall very fatigued, dyspnea on exertion, chest tightness, "like something sitting on my chest," and overall decreased appetite. Symptoms started after she took a 300 mile trip to [place] with her son and returned at 48 hours. After the trip she complained of increased lower extremity ankle and feet swelling. It then persisted into increasingly shortness of breath with exertion. "Even walking short distances makes me extremely short of breath and I have to take a break. "Associated with the shortness of breath is chest tightness and heaviness feeling like something is sitting on her chest. She does complain of heart palpitations. She denies any recent illness, fever, chills, sweats, lightheadedness, dizziness, cough, hemoptysis, nausea, vomiting, abdominal pain, dysuria, increased urgency with urination, melena, hematochezia. She does have increased frequency with urination secondary to Lasix. She does elicit to having 2-3 episodes of diarrhea this morning. Of significance starting today she was told to increase her Lasix from 20 mg daily to 40 mg daily x3 days and then return back to 20 mg daily. Denies weight gain or loss. She was seen and evaluated by cardiology Yanna Pyle on 08/18/2019 in which she did complain of CHOUDHARY. An EKG was performed which revealed patient to be in atrial fibrillation with RVR. She was started on Eliquis 2.5 mg twice daily as well as metoprolol tartrate 25 mg twice daily and attempts to avoid hospitalization as patient was resistant. She also had a outpatient echocardiogram which revealed EF 55%, left atrium mildly enlarged, mild AV sclerosis, grade 1 diastolic dysfunction. TSH on 08/17 was 1.13. In ED she remains in atrial fibrillation with RVR. She is hemodynamically stable. ED provider discussed case with cradle slide maker who recommended stopping Eliquis and starting IV heparin. Lab studies revealed WBC 7.63, H&H 12.4 39.9, platelet 279, BUN 27, creatinine 1.77, K3.7, glucose 112, proBNP 7176, troponin WNL. Chest x-ray revealed cardiomegaly but no acute cardiopulmonary abnormality. Allergies Allergy/AdvReac Type Severity Reaction Status Date / Time metoclopramide Allergy Intermediate neuro Verified 08/20/19 18:50 complications adhesive Allergy Unknown ALLERGY TO Verified 09/26/11 10:30 TAPE naproxen [From Naprosyn] Allergy Unknown Verified 08/20/19 18:50 doxycycline AdvReac Mild n/v Verified 08/20/19 18:50 Home Medications Home Medications Medication Instructions Recorded Confirmed Type albuterol sulfate [Ventolin HFA] 2 puff INHALATION QID 08/20/19 08/20/19 History apixaban [Eliquis] 2.5 mg PO BID 08/20/19 08/20/19 History aspirin 81 mg PO MOWEFR 08/20/19 08/20/19 History atorvastatin 40 mg PO DAILY 08/20/19 08/20/19 History diclofenac sodium 4 g TOPICAL QID 08/20/19 08/20/19 History docusate sodium 100 mg PO BID 08/20/19 08/20/19 History fluoxetine 20 mg PO DAILY 08/20/19 08/20/19 History furosemide 40 mg PO DAILY 08/20/19 08/20/19 History isosorbide mononitrate 30 mg PO QAM 08/20/19 08/20/19 History lactobacillus combination no.4 0 mmu cells PO DAILY 08/20/19 08/20/19 History [Probiotic] lisinopril 5 mg PO DAILY 08/20/19 08/20/19 History magnesium oxide 400 mg PO DAILY 08/20/19 08/20/19 History metoprolol tartrate 25 mg PO BID 08/20/19 08/20/19 History omeprazole 20 mg PO QAM 08/20/19 08/20/19 History ondansetron 4 mg PO QID PRN 08/20/19 08/20/19 History oxycodone-acetaminophen 1 tab PO Q6H PRN 08/20/19 08/20/19 History potassium chloride [Klor-Con M10] 10 meq PO DAILY 08/20/19 08/20/19 History timolol maleate 1 drp OPB DAILY 08/20/19 08/20/19 History Past Med/Surg History Medical History (Updated 08/20/19 @ 19:37 by Tianna Rashid PA-C) A-fib (Acute) CAD (coronary artery disease) (Chronic) "1996 - PTCA to RCA 2011 - cath that showed patent RCA and no further disease" Chest pain (Acute) Chronic back pain (Chronic) CKD stage 3 due to type 1 diabetes mellitus (Chronic) Diastolic CHF DM type 2 (diabetes mellitus, type 2) (Chronic) DVT prophylaxis Dyslipidemia (Chronic) GERD (gastroesophageal reflux disease) (Chronic) History of nephrolithiasis Sacroiliitis Surgical History History of cystoscopy History of lithotripsy History of PTCA S/P appendectomy (Chronic) S/P cholecystectomy (Chronic) S/P hysterectomy (Chronic) Family History Aunt Breast cancer Mother Diabetes Coronary heart disease Father Silicosis Social History (Updated 08/20/19 @ 19:15 by Tianna Rashid PA-C) Preferred Language: Upper Sorbian Communication Ability: Effective Visual Impairment: Partially Limited marital status: / Current Living Situation: Alone Feels Safe at Home: Yes Smoking Status: Former smoker packs per day: 0.5 ; Years Smoked: 40 ; Smoking End Date: 1994 ; Hx Alcohol Use: No Hx Substance Use: No Review of Systems Review of Systems: All systems reviewed & are unremarkable except as noted in HPI & below Physical Exam Physical Exam: Constitutional: WD/WN, F, elderly, vitals as above, NAD, sitting up in bed, pleasant, conversing easily Head: Normocephalic, Atraumatic Eyes: PERRL, conjunctivae normal, anicteric sclerae ENMT: external ear and nose normal, oropharynx normal Neck: trachea midline, no thyromegaly normal visual inspection Respiratory: normal respiratory effort, lungs clear to auscultation, no wheeze, rales, rhonchi. Normal insp/exp effort, no accessory muscle use Cardiovascular: IRR/IRR, 1/6 [place] noted best RUSB, b/l lower trace edema, no erythema, negative homans Vessels: no JVD or carotid bruit Chest: normal inspection of chest Abdomen: obese abd, normal bowel sounds, soft, nontender, no hepatosplenomegaly Musculoskeletal: no cyanosis or clubbing, extremities motor strength 5/5 Skin: no rashes, warm and dry normal turgor Neurologic: PERRL, EOMI, accommodation nl, no face palsy, no dysarthria CN's II-XI intact bilaterally and moves all extremities Psychiatric: A+Ox3, euthymic affect Lymphatic: no cervical or axillary lymphadenopathy : deferred Results & Data Vital Signs (Past 12 Hours) Vital Signs Temp Pulse Pulse Resp BP BP Pulse Ox 08/20/19 18:50 132 H 21 99 08/20/19 18:40 118 H 17 99 08/20/19 18:30 119 H 22 94 08/20/19 18:21 125 H 22 97 08/20/19 18:13 110 H 122 H 26 H 121/86 121/86 95 08/20/19 18:10 115 H 16 98 08/20/19 18:00 119 H 17 97 08/20/19 17:50 123 H 20 97 08/20/19 17:40 128 H 16 98 08/20/19 17:31 126 H 24 121/74 98 08/20/19 17:30 122 H 20 95 08/20/19 17:20 120 H 20 95 08/20/19 17:13 120 H 23 98 08/20/19 17:11 121 H 19 139/84 97 08/20/19 16:30 36.6 C 113 H 18 109/66 96 Laboratory Results Short CBC 08/20/19 08/20/19 Range/Units 17:11 17:11 WBC 7.63 (4.8-10.8) K/uL Hgb 12.4 (12.0-16.0) g/dL Hct 39.9 (37-47) % Plt Count 279 (130-400) K/uL Creatinine 1.77 H (0.6-1.2) mg/dl BMP 08/20/19 17:11 Sodium 138 Potassium 3.7 Chloride 106 Carbon Dioxide 27 BUN 27 H Creatinine 1.77 H Glucose 112 H Calcium 9.2 Cardiac Enzymes 08/20/19 Range/Units 17:11 Troponin I < 0.015 (0-0.045) ng/ml Diagnostic Findings CXR: IMPRESSION: 1. Cardiomegaly without acute process. 2. Hiatal hernia. Medications Administered Heparin Sodium/Dextrose (Heparin Sodium/Dextrose) 25,000 units in 500 mls @ 0.02 mls/hr IV .Q24H [facility]; Protocol Stop: 09/19/19 17:59 Last Admin: 08/20/19 18:33 Dose: 1,200 units/hr, 24 mls/hr Documented by: [id number] Cosigned by: [id number] Discontinued Medications Aspirin (Aspirin) 324 mg PO NOW STA Stop: 08/20/19 16:39 Last Admin: 08/20/19 18:44 Dose: 324 mg Documented by: [id number] ECG Rate (beats per minute): 120 Rhythm: atrial fibrillation Code Status & VTE Plan Code Status Full Code VTE Prophylaxis Plan VTE Prophylaxis will be ordered: Yes Supervising Physician Co-Signing Physician Notes Attending addendum: The patient was seen and examined in telemetry unit She is an 84-year-old female with significant past medical history of CAD, hypertension, hyperlipidemia, type 2 diabetes, asthma, GERD and CKD apparently has been complaining of chest tightness with palpitation for the last 2 weeks. 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 Has been on Eliquis since start of this month We will hold Eliquis and started on intravenous heparin US legs and VQ scan ordered Beta-adolfo to control heart rate for now Cardiology consulted Agree with assessment and plan as outlined above by AMI [address] (1) A-fib Atrial fibrillation type: unspecified Qualified Code(s): I48.91 - Unspecified atrial fibrillation (2) Chest pain Chest pain type: unspecified Qualified Code(s): R07.9 - Chest pain, unspecified
[2019-08-20] MEDS ORDERED: POTASSIUM CHLORIDE 20 MEQ TABCR PO STA (19:13)
[2019-08-20 19:14] LABS: Magnesium 1.4 mg/dl (1.8-2.4)
[2019-08-20 19:25] LABS: D Dimer 1280 ug/L FEU (0-500)
[2019-08-20] MEDS: METOPROLOL TARTRATE 25 MG TAB PO SCH (19:32)
--- NOTE | 2019-08-20 19:53 | Emergency Department Note ---
Entered by Holly Fishman acting as a scribe for Isma Trinidad History of Present Illness General Chief complaint: Cardiac Assessment Stated complaint: IRREGULAR HEARTBEAT, HEAVINESS, WEAKNESS Time Seen by Provider: 08/20/19 16:33 Source: patient and family (son) History of Present Illness Onset (ago): week(s) (1) Location: head (general) Pain Consistency: + constant Quality: + other (weakness) Associated symptoms: + denies other symptoms (coughing up blood, blood in urine or stool, loss of consciousness), + chest pain and + shortness of breath The patient is a 84 year old female who presents to the Emergency Room with complaints of constant weakness beginning one week ago. She notes it is difficult to make coffee and do other tasks. The patient reports chest tightness and shortness of breath over the past week as well. She denies coughing up blood, blood in her stool or urine, and loss of consciousness. The patient reports she was diagnosed with an irregular heartbeat by Dr. Magallanes. The patient's son states the patient had an ultrasound yesterday. He notes they received a call today telling them it was normal, but because the patient still did not feel well the patient should go to the ER. Home Medications Home Medications Medication Instructions Recorded Confirmed Type albuterol sulfate [Ventolin HFA] 2 puff INHALATION QID 08/20/19 08/20/19 History apixaban [Eliquis] 2.5 mg PO BID 08/20/19 08/20/19 History aspirin 81 mg PO MOWEFR 08/20/19 08/20/19 History atorvastatin 40 mg PO DAILY 08/20/19 08/20/19 History diclofenac sodium 4 g TOPICAL QID 08/20/19 08/20/19 History docusate sodium 100 mg PO BID 08/20/19 08/20/19 History fluoxetine 20 mg PO DAILY 08/20/19 08/20/19 History furosemide 40 mg PO DAILY 08/20/19 08/20/19 History isosorbide mononitrate 30 mg PO QAM 08/20/19 08/20/19 History lactobacillus combination no.4 0 mmu cells PO DAILY 08/20/19 08/20/19 History [Probiotic] lisinopril 5 mg PO DAILY 08/20/19 08/20/19 History magnesium oxide 400 mg PO DAILY 08/20/19 08/20/19 History metoprolol tartrate 25 mg PO BID 08/20/19 08/20/19 History omeprazole 20 mg PO QAM 08/20/19 08/20/19 History ondansetron 4 mg PO QID PRN 08/20/19 08/20/19 History oxycodone-acetaminophen 1 tab PO Q6H PRN 08/20/19 08/20/19 History potassium chloride [Klor-Con M10] 10 meq PO DAILY 08/20/19 08/20/19 History timolol maleate 1 drp OPB DAILY 08/20/19 08/20/19 History Allergies Allergy/AdvReac Type Severity Reaction Status Date / Time metoclopramide Allergy Intermediate neuro Verified 08/20/19 18:50 complications adhesive Allergy Unknown ALLERGY TO Verified 09/26/11 10:30 TAPE naproxen [From Naprosyn] Allergy Unknown Verified 08/20/19 18:50 doxycycline AdvReac Mild n/v Verified 08/20/19 18:50 Past Med/Surg History Medical History (Updated 08/20/19 @ 19:37 by Tianna Rashid PA-C) A-fib (Acute) CAD (coronary artery disease) (Chronic) "1996 - PTCA to RCA 2011 - cath that showed patent RCA and no further disease" Chest pain (Acute) Chronic back pain (Chronic) CKD stage 3 due to type 1 diabetes mellitus (Chronic) Diastolic CHF DM type 2 (diabetes mellitus, type 2) (Chronic) DVT prophylaxis Dyslipidemia (Chronic) GERD (gastroesophageal reflux disease) (Chronic) History of nephrolithiasis Sacroiliitis Surgical History History of cystoscopy History of lithotripsy History of PTCA S/P appendectomy (Chronic) S/P cholecystectomy (Chronic) S/P hysterectomy (Chronic) Family History Aunt Breast cancer Mother Diabetes Coronary heart disease Father Silicosis Social History (Updated 08/20/19 @ 19:15 by Tianna Rashid PA-C) Preferred Language: Belarusian Communication Ability: Effective Visual Impairment: Partially Limited marital status: / Current Living Situation: Alone Feels Safe at Home: Yes Smoking Status: Former smoker packs per day: 0.5 ; Years Smoked: 40 ; Smoking End Date: 1994 ; Hx Alcohol Use: No Hx Substance Use: No Review of Systems See HPI for pertinent positives & negatives. and A total of 10 systems reviewed and were otherwise negative Physical Exam Vital Signs Vital Signs - 24 hr 08/20/19 16:30 08/20/19 17:11 08/20/19 17:13 Temperature 36.6 C Temperature Source Oral Pulse Rate 113 H 121 H 120 H Pulse Rate [Apical] Pulse Rate from SpO2 Sensor 135 H 92 H Respiratory Rate 18 19 23 Respiratory Effort / Characteristics Respiratory Depth Blood Pressure 109/66 139/84 Blood Pressure [Left Arm] Blood Pressure Mean 80 89 Blood Pressure Mean [Left Arm] Blood Pressure Position Sitting Pulse Oximetry 96 97 98 Oxygen Delivery Method Room Air Room Air Sepsis Recent Fever Within 48 Hours No Sepsis New/Unexplained Change in Mental Status No Sepsis Action Taken by Nursing No Action Required 08/20/19 17:20 08/20/19 17:30 08/20/19 17:31 Temperature Temperature Source Pulse Rate 120 H 122 H 126 H Pulse Rate [Apical] Pulse Rate from SpO2 Sensor 137 H 118 H 110 H Respiratory Rate 20 20 24 Respiratory Effort / Characteristics Respiratory Depth Blood Pressure 121/74 Blood Pressure [Left Arm] Blood Pressure Mean 79 Blood Pressure Mean [Left Arm] Blood Pressure Position Pulse Oximetry 95 95 98 Oxygen Delivery Method Room Air Room Air Room Air Sepsis Recent Fever Within 48 Hours Sepsis New/Unexplained Change in Mental Status Sepsis Action Taken by Nursing 08/20/19 17:40 08/20/19 17:50 08/20/19 18:00 Temperature Temperature Source Pulse Rate 128 H 123 H 119 H Pulse Rate [Apical] Pulse Rate from SpO2 Sensor 103 H 111 H 107 H Respiratory Rate 16 20 17 Respiratory Effort / Characteristics Respiratory Depth Blood Pressure Blood Pressure [Left Arm] Blood Pressure Mean Blood Pressure Mean [Left Arm] Blood Pressure Position Pulse Oximetry 98 97 97 Oxygen Delivery Method Room Air Room Air Room Air Sepsis Recent Fever Within 48 Hours Sepsis New/Unexplained Change in Mental Status Sepsis Action Taken by Nursing 08/20/19 18:10 08/20/19 18:13 08/20/19 18:21 Temperature Temperature Source Pulse Rate 115 H 110 H 125 H Pulse Rate [Apical] 122 H Pulse Rate from SpO2 Sensor 87 120 H 113 H Respiratory Rate 16 26 H 22 Respiratory Effort / Characteristics Non-Labored Respiratory Depth Normal Blood Pressure 121/86 Blood Pressure [Left Arm] 121/86 Blood Pressure Mean 96 Blood Pressure Mean [Left Arm] 97 Blood Pressure Position Pulse Oximetry 98 95 97 Oxygen Delivery Method Room Air Room Air Room Air Sepsis Recent Fever Within 48 Hours Sepsis New/Unexplained Change in Mental Status Sepsis Action Taken by Nursing 08/20/19 18:30 08/20/19 18:40 08/20/19 18:50 Temperature Temperature Source Pulse Rate 119 H 118 H 132 H Pulse Rate [Apical] Pulse Rate from SpO2 Sensor 122 H 98 H 125 H Respiratory Rate 22 17 21 Respiratory Effort / Characteristics Respiratory Depth Blood Pressure Blood Pressure [Left Arm] Blood Pressure Mean Blood Pressure Mean [Left Arm] Blood Pressure Position Pulse Oximetry 94 99 99 Oxygen Delivery Method Room Air Room Air Room Air Sepsis Recent Fever Within 48 Hours Sepsis New/Unexplained Change in Mental Status Sepsis Action Taken by Nursing 08/20/19 19:29 Temperature Temperature Source Pulse Rate Pulse Rate [Apical] Pulse Rate from SpO2 Sensor Respiratory Rate Respiratory Effort / Characteristics Respiratory Depth Blood Pressure Blood Pressure [Left Arm] Blood Pressure Mean Blood Pressure Mean [Left Arm] Blood Pressure Position Pulse Oximetry Oxygen Delivery Method Room Air Sepsis Recent Fever Within 48 Hours Sepsis New/Unexplained Change in Mental Status Sepsis Action Taken by Nursing GENERAL: She is oriented to person, place, and time. She appears well-developed and well-nourished. She does not appear distressed. HENT: Exam performed. Head: Normocephalic and atraumatic. Right Ear: External ear normal. No mastoid tenderness. Left Ear: External ear normal. No mastoid tenderness. Mouth/Throat: The oropharynx is clear and moist. No trismus in the jaw. No dental abscesses or uvula swelling. No oropharyngeal exudate or tonsillar absc esses. EYES: Conjunctivae and EOM are normal. Pupils are equal, round, and reactive to light. Right eye exhibits no discharge. Left eye exhibits no discharge. No scleral icterus. NECK: Normal range of motion. Neck supple. No JVD present. No spinous process tenderness present. No carotid bruit present. No rigidity. No tracheal deviation and normal range of motion present. No Brudzinski's sign and no Kernig's sign noted. CV: Tachycardic rate, irregular rhythm, normal heart sounds and intact distal pulses. There is no peripheral edema. Palpable radial pulses bue. PULM/CHEST: Effort normal and breath sounds normal. No respiratory distress. No stridor. She has no wheezes. She has no rales. Chest Wall: She exhibits no tenderness. ABD: The abdomen is soft. Bowel sounds are normal. She has no distension. No mass is present. There is no tenderness. There is no rebound, no guarding, no Kee's sign and no tenderness at McBurney's point. Rovsig negative MUSC/SKEL: Normal range of motion. There is no peripheral edema, tenderness or deformity. LYMPH: No cervical adenopathy. NEURO: She is alert and oriented to person, place, and time. She has normal strength. No cranial nerve deficit or sensory deficit. Coordination and gait normal. GCS eye subscore is 4. GCS verbal subscore is 5. GCS motor subscore is 6. cerbellar tests wnl. SKIN: Skin is warm and dry. She is not diaphoretic. PSYCH: She has a normal mood and affect. Her behavior is normal. Judgment and thought content normal. Course Course 1630: Past medical records reviewed. The patient has a history of CAD, hyperlipidemia, diabetes, CKD stage 3, a appendectomy and a cholecystectomy. The patient was evaluated in room B12. A complete history and physical exam was performed. 1708: I spoke with the patient's daughter at bedside. She states the patient was recently diagnosed with a-fib and was started on Eliquis and metoprolol. 1730: David, the sample case porter, obtained the patient's records from [facility]. Per the cardiology note by Yanna Hardwick on August 18, 2019: On February 14, 2017: The stress echo is negative for inducible ischemia. Equivocal 0.51 mm horizontal/down sloping ST segment depression is supraventricu lar tachycardia was noted during stress. Start Eliquis 2.5mg - 1 tablet in the morning and 1 tablet in the evening. Start metoprolol 25mg - 1 tablet in the morning and 1 tablet in the evening. Echo on August 19, 2019: The qualitative LV ejection fraction is 55-59% (normal). 1750: Vital signs stable. Labs and imaging within normal limits. I spoke with Dr. Azul - [facility] Hospitalist who agrees the patient needs to be admitted. He recommends to stop Eliquis and switch to a heparin drip with no bolus. The [facility] hospitalist team will be notified. Administered Medications Heparin Sodium/Dextrose (Heparin Sodium/Dextrose) 25,000 units in 500 mls @ 0.02 mls/hr IV .Q24H HOLA; Protocol Stop: 09/19/19 17:59 Last Admin: 08/20/19 18:33 Dose: 1,200 units/hr, 24 mls/hr Documented by: [id number] Cosigned by: [id number] Metoprolol Tartrate (Lopressor) 25 mg PO Q6H HOLA Stop: 09/19/19 18:59 Last Admin: 08/20/19 19:32 Dose: 25 mg Documented by: [id number] Discontinued Medications Aspirin (Aspirin) 324 mg PO NOW STA Stop: 08/20/19 16:39 Last Admin: 08/20/19 18:44 Dose: 324 mg Documented by: [id number] Potassium Chloride (Klor-Con M20) 40 meq PO NOW STA Stop: 08/20/19 19:14 Last Admin: 08/20/19 19:32 Dose: 40 meq Documented by: [id number] Critical Care Time Critical Care Time: Yes Total Critical Care Time: 36 I have personally spent 36 minutes of critical care time in the direct management of this patient. This includes bedside care, interpretation of diagnostic studies, and testing, discussion with consultants, patient, and family members, and other required patient management activities. This 36 minutes is in excess of all separately billable procedures. Medical Decision Making Medical Records Attestation: I reviewed the patient's medical records. Home Medications Current Medication List: was personally reviewed by me Laboratory Data Attestation: I reviewed the patient's lab results. Result diagrams: 08/20/19 17:11 08/20/19 17:11 Lab Results 08/20/19 08/20/19 08/20/19 Range/Units 17:11 17:11 17:11 WBC 7.63 (4.8-10.8) K/uL RBC 4.86 (4.2-5.4) M/uL Hgb 12.4 (12.0-16.0) g/dL Hct 39.9 (37-47) % MCV 82.1 (80-100) fL MCH 25.5 (25-34) pg MCHC 31.1 L (32-36) g/dL RDW Std Deviation 48.5 H (36.4-46.3) fL RDW Coeff of Tab 16.2 H (11.5-14.5) % Plt Count 279 (130-400) K/uL MPV 11.0 H (7.4-10.4) fL Immature Gran % (Auto) 0.1 % Neut % (Auto) 57.3 % Lymph % (Auto) 34.2 % Irion % (Auto) 5.6 % Eos % (Auto) 2.5 % Baso % (Auto) 0.3 % Immature Gran # (Auto) 0.01 (0.00-0.02) K/uL Neut # (Auto) 4.37 (1.4-6.5) K/uL Lymph # (Auto) 2.61 (1.2-3.4) K/uL Irion # (Auto) 0.43 (0.11-0.59) K/uL Eos # (Auto) 0.19 (0-0.5) K/uL Baso # (Auto) 0.02 (0-0.2) K/uL PT 12.0 (9.0-12.0) Seconds INR 1.2 H (0.9-1.1) APTT 28.2 (21.0-31.0) Seconds PTT Ratio 1.0 D-Dimer (0-500) ug/L FEU Sodium 138 (136-145) mmol/L Potassium 3.7 (3.5-5.1) mmol/L Chloride 106 (98-107) mmol/L Carbon Dioxide 27 (21-32) mmol/L Anion Gap 5.0 (3-11) BUN 27 H (7-18) mg/dl Creatinine 1.77 H (0.6-1.2) mg/dl Est Cr Clr Drug Dosing Not Reportable Est GFR ( Amer) 30.5 Est GFR (Non-Af Amer) 26.3 BUN/Creatinine Ratio 15.4 (10-20) Glucose 112 H (70-99) mg/dl Calcium 9.2 (8.5-10.1) mg/dl Magnesium 1.4 L (1.8-2.4) mg/dl Troponin I < 0.015 (0-0.045) ng/ml NT-Pro-B Natriuret Pep 7176 H (0-1800) pg/ml Lipase 196 (73-393) U/L 08/20/19 Range/Units 17:11 WBC (4.8-10.8) K/uL RBC (4.2-5.4) M/uL Hgb (12.0-16.0) g/dL Hct (37-47) % MCV (80-100) fL MCH (25-34) pg MCHC (32-36) g/dL RDW Std Deviation (36.4-46.3) fL RDW Coeff of Tab (11.5-14.5) % Plt Count (130-400) K/uL MPV (7.4-10.4) fL Immature Gran % (Auto) % Neut % (Auto) % Lymph % (Auto) % Irion % (Auto) % Eos % (Auto) % Baso % (Auto) % Immature Gran # (Auto) (0.00-0.02) K/uL Neut # (Auto) (1.4-6.5) K/uL Lymph # (Auto) (1.2-3.4) K/uL Irion # (Auto) (0.11-0.59) K/uL Eos # (Auto) (0-0.5) K/uL Baso # (Auto) (0-0.2) K/uL PT (9.0-12.0) Seconds INR (0.9-1.1) APTT (21.0-31.0) Seconds PTT Ratio D-Dimer 1280 H* (0-500) ug/L FEU Sodium (136-145) mmol/L Potassium (3.5-5.1) mmol/L Chloride (98-107) mmol/L Carbon Dioxide (21-32) mmol/L Anion Gap (3-11) BUN (7-18) mg/dl Creatinine (0.6-1.2) mg/dl Est Cr Clr Drug Dosing Est GFR ( Amer) Est GFR (Non-Af Amer) BUN/Creatinine Ratio (10-20) Glucose (70-99) mg/dl Calcium (8.5-10.1) mg/dl Magnesium (1.8-2.4) mg/dl Troponin I (0-0.045) ng/ml NT-Pro-B Natriuret Pep (0-1800) pg/ml Lipase (73-393) U/L Imaging Data Radiologist's Impression: Radiology results as stated below per my review and the radiologist's interpretation: XR chest 2V PA/lateral HISTORY: 84 years-old Female Chest Pain acute atypical chest pain with cardiac palpitations COMPARISON: CT abdomen and pelvis 12/08/2016 TECHNIQUE: PA and lateral views of the chest FINDINGS: Cardiac silhouette is mildly enlarged. Small to moderate hiatal hernia redemonstrated. Calcified plaque of the thoracic aortic arch. No pneumothorax, pleural effusion, airspace consolidation or overt pulmonary edema. Lungs are mildly hyperinflated. Cholecystectomy. Multiple healed remote left-sided rib fractures. Degenerative changes of the shoulders and spine. IMPRESSION: 1. Cardiomegaly without acute process. 2. Hiatal hernia. ACT 112: Negative or not required by law. The above report was generated using voice recognition software. It may contain grammatical, syntax or spelling errors. Results electronically sent 08/20/2019 4:57 PM to: Isma Trinidad Electronically signed by: Edy Pierce M.D. 08/20/2019 4:57 PM ECG Data Attestation: I personally reviewed and interpreted this ECG as follows: Indication: + chest pain Rate (beats per minute): 120 Rhythm: + atrial fibrillation ECG Intervals/blocks: + Normal QRS and + Normal QT-c ECG ST segments: no ST depression and no ST elevation Blood Pressure Blood Pressure Findings: Elevated blood pressure Blood Pressure Disposition: further management by hospitalist [facility] Narrative Continuous Cardiac Monitoring: An order was placed for continuous cardiac monitoring. The monitor shows a rate of 120 with a-fib. 1730: David, the sample case porter, obtained the patient's records from [facility]. Per the cardiology note by Yanna Hardwick on August 18, 2019: On February 14, 2017: The stress echo is negative for inducible ischemia. Equivocal 0.51 mm horizontal/down sloping ST segment depression is supraventricular tachycardia was noted during stress. Start Eliquis 2.5mg - 1 tablet in the morning and 1 tablet in the evening. Start metoprolol 25mg - 1 tablet in the morning and 1 tablet in the evening. Echo on August 19, 2019: The qualitative LV ejection fraction is 55-59% (normal). 1750: Vital signs stable. Labs and imaging within normal limits. I spoke with Dr. Azul - [facility] Hospitalist who agrees the patient needs to be admitted. He recommends to stop Eliquis and switch to a heparin drip with no bolus. The [facility] hospitalist team will be notified. Impression & Plan Chest pain, A-fib Discharge Plan Visit Data Chief Complaint: Cardiac Assessment Stated Complaint: IRREGULAR HEARTBEAT, HEAVINESS, WEAKNESS ED Provider: Isma Trinidad Discharge Problem: Chest pain, A-fib Patient Disposition: Being Evaluated by Hospitalist Discharge Instructions Interventions: ED Discharge Assessment Last Done: 08/20/19 19:29 Forms Stand Alone Forms: My [facility] [employer] Prescriptions Prescriptions: No Action atorvastatin 40 mg tablet 40 mg PO DAILY RF: 0 isosorbide mononitrate 30 mg tablet extended release 24 hr 30 mg PO QAM RF: 0 aspirin 81 mg Tablet,Delayed Release (Dr/Ec) 81 mg PO MOWEFR RF: 0 oxycodone-acetaminophen 10-325 mg tablet 1 tab PO Q6H PRN (Reason: Pain) RF: 0 omeprazole 20 mg capsule,delayed release(DR/EC) 20 mg PO QAM RF: 0 lisinopril 5 mg tablet 5 mg PO DAILY RF: 0 albuterol sulfate [Ventolin HFA] 90 mcg/actuation HFA aerosol inhaler 2 puff inhalation QID RF: 0 ondansetron 4 mg tablet,disintegrating 4 mg PO QID PRN (Reason: Nausea) RF: 0 fluoxetine 20 mg capsule 20 mg PO DAILY RF: 0 timolol maleate 0.25 % gel forming solution 1 drp OPB DAILY RF: 0 potassium chloride [Klor-Con M10] 10 mEq tablet,ER particles/crystals 10 meq PO DAILY RF: 0 metoprolol tartrate 25 mg tablet 25 mg PO BID RF: 0 Eliquis 2.5 mg tablet 2.5 mg PO BID RF: 0 Probiotic 3 billion cell Capsule 0 mmu cells PO DAILY RF: 0 docusate sodium 100 mg Capsule 100 mg PO BID RF: 0 furosemide 20 mg tablet 40 mg PO DAILY RF: 0 diclofenac sodium 1 % gel 4 g TOPICAL QID RF: 0 magnesium oxide 400 mg magnesium Tablet 400 mg PO DAILY RF: 0 Referrals Referrals: Steve Hooker MD [Primary Care Provider] - Discharge Problem: Chest pain Qualifiers: Chest pain type: unspecified Qualified Code(s): R07.9 - Chest pain, unspecified A-fib Qualifiers: Atrial fibrillation type: unspecified Qualified Code(s): I48.91 - Unspecified atrial fibrillation The scribe's documentation has been prepared under my direction and personally reviewed by me in its entirety. I confirm that the note above accurately reflects all work, treatment, procedures, and medical decision making performed by me.
[2019-08-20] MEDS ORDERED: GLUCOSE 10 TABS/TUBE PO PRN (20:12)
[2019-08-20] MEDS ORDERED: GLUCAGON FOR INJ 1 MG VIAL SQ PRN (20:12)
[2019-08-20] MEDS ORDERED: DEXTROSE 50% 50 ML SYRINGE IV PRN (20:12)
[2019-08-20] MEDS ORDERED: CARBOHYDRATES FOR HYPOGLYCEMIA PO PRN (20:12)
[2019-08-20] MEDS ORDERED: ONDANSETRON INJ 2 MG/ML 2 ML VIAL IV PRN (20:12)
[2019-08-20] MEDS ORDERED: ALBUTEROL HFA 8 GM INHALER INH PRN (20:12)
[2019-08-20] MEDS ORDERED: POLYETHYLENE (MIRALAX) 17 GM PACK PO PRN (20:12)
[2019-08-20] MEDS ORDERED: OXYCODONE/ACETAMINOPHEN 10-325 TAB PO PRN (20:12)
[2019-08-20] MEDS ORDERED: GLUCOSE 40% GEL 15 GM TUBE PO PRN (20:12)
[2019-08-20] MEDS: INSULIN ASPART 100 UNITS/ML 3 ML PEN SC SCH (20:48)
[2019-08-20] MEDS: MAGNESIUM SULFATE / D5W 1 GM/100 ML BAG IV SCH ×2 (21:38→23:15)
--- NOTE | 2019-08-20 22:50 | Nuclear Medicine Report ---
NM pul vent and perfuse CLINICAL HISTORY: 84 years-old Female with elevated DDIMER, new onset afib, r/o PE. Acute atrial fib rillation with elevated d-dimer COMPARISON STUDY: Chest radiographs of same day. TECHNIQUE: Initially, ventilation images of both lungs are obtained following the inhalation of 32.8 mCi of aerosolized technetium 99m DTPA. Subsequently, perfusion images of both lungs were obtained fo llowing the IV administration of 6.2 mCi of technetium 99m MAA. Ventilation and perfusion images were acquired in the anterior, posterior, and oblique projections. FINDINGS: A chest x-ray performed same day demonstrates no acute disease. Central clumping of radiotracer on the ventilation images limits the study. Additionally, there is a moderate amount of ingested tracer material within the esophagus and stomach. Moderate sized matched perfusion defects are noted within the left upper lobe and lingula. No large mismatched ventilation/p erfusion defects identified. Additionally, small matched perfusion defects are seen within the right upper lobe. IMPRESSION: 1. Limited exam as above. 2. Low probability for pulmonary embolus. ACT 112: Negative or not required by law. The above report was generated using voice recognition software. It may contain grammatical, syntax o r spelling errors. Results electronically sent 08/20/2019 10:49 PM to: Tianna Rashid PA-C Electronically signed by: Edy Pierce M.D. 08/20/2019 10:49 PM
[2019-08-20 23:50] LABS: Partial Thromboplastin Ratio 1.5; Partial Thromboplastin Time 39.5 Seconds (21.0-31.0)
[2019-08-21] MEDS ORDERED: HEPARIN IV BOLUS 5,000 UNITS in SYRINGE 0 ML IV ONE (00:06)
[2019-08-21] MEDS: METOPROLOL TARTRATE 25 MG TAB PO SCH ×3 (00:46→20:26)
[2019-08-21 06:23] LABS: Hematocrit (blood only) 37.4 % (37-47); Hemoglobin 11.7 g/dL (12.0-16.0); Mean Corpuscular Hemoglobin 25.9 pg (25-34); Mean Corpuscular Hgb Conc 31.3 g/dL (32-36); Mean Corpuscular Volume 82.7 fL (80-100); Mean Platelet Volume 11.7 fL (7.4-10.4); Platelet Count 239 K/uL (130-400); RDW Coefficient of Variation 16.3 % (11.5-14.5); RDW Standard Deviation 49.1 fL (36.4-46.3); Red Blood Count 4.52 M/uL (4.2-5.4); White Blood Count 6.69 K/uL (4.8-10.8)
[2019-08-21 06:42] LABS: Partial Thromboplastin Ratio > 5.1
[2019-08-21 06:54] LABS: Partial Thromboplastin Time > 139.0 Seconds (21.0-31.0)
[2019-08-21 06:55] LABS: BUN Creatinine Ratio 17.4 (10-20); Calcium 9.4 mg/dl (8.5-10.1); Creatinine Clr Calc Pharmacy 28.2 ml/min; Est GFR (African American) 34.4; Est GFR (Non-African American) 29.7; Potassium 4.1 mmol/L (3.5-5.1)
[2019-08-21 06:59] LABS: Troponin I 0.016 ng/ml (0-0.045)
--- NOTE | 2019-08-21 07:09 | Ultrasound Report ---
BILATERAL LOWER EXTREMITY VENOUS DOPPLER HISTORY: Leg swelling. elevated ddimer, swelling COMPARISON STUDY: None. FINDINGS: There is normal compressibility, flow, and augmentation within the bilateral lower extremit y deep venous systems. IMPRESSION: No DVT within the right or left lower extremity. ACT 112: Negative or not required by law. Results electronically sent 08/21/2019 7:07 AM to: Tianna Rashid PA-C Electronically signed by: Jean Myrick M.D. 08/21/2019 7:07 AM
[2019-08-21] MEDS ORDERED: METOPROLOL TARTRATE 1 MG/ML VIAL IV PRN (07:55)
[2019-08-21] MEDS: POTASSIUM CHLORIDE 10 MEQ TABCR PO SCH (08:19)
[2019-08-21] MEDS: ASPIRIN 81 MG ECTAB PO SCH (08:19)
[2019-08-21] MEDS: PANTOprazole 40 MG TAB PO SCH (08:19)
[2019-08-21] MEDS: MAGNESIUM OXIDE 400 MG TAB PO SCH (08:20)
[2019-08-21] MEDS: ISOSORBIDE MONO EXTENDED REL 30 MG TABCR PO SCH (08:20)
[2019-08-21] MEDS: ATORVASTATIN 40 MG TAB PO SCH (08:20)
[2019-08-21] MEDS: FLUOXETINE HCL 20 MG CAP PO SCH (08:20)
[2019-08-21] MEDS: lisinopriL 5 MG TAB PO SCH (08:20)
[2019-08-21] MEDS: FUROSEMIDE 40 MG TAB PO SCH (08:20)
[2019-08-21] MEDS: TIMOLOL GFS 0.25% OPH SOLN 74 DROPS/5 ML BTL OPB SCH (08:21)
[2019-08-21 08:41] LABS: Partial Thromboplastin Ratio 2.7
[2019-08-21] MEDS: INSULIN ASPART 100 UNITS/ML 3 ML PEN SC SCH ×4 (09:07→20:27)
--- NOTE | 2019-08-21 09:57 | Cardiology Consultation ---
Date of Consultation August 21, 2019 Assessment & Plan (1) Diastolic CHF: (2) A-fib: (3) CAD (coronary artery disease): (4) DM type 2 (diabetes mellitus, type 2): (5) CKD stage 3 due to type 1 diabetes mellitus: The patient is currently comfortable at rest but states if she gets up to walk around she rapidly becomes short of breath. Her heart rates are better controlled. For today, I am going to switch her over to IV Lasix for better diuresis. The patient is very symptomatic from her atrial fibrillation. I explained to her the various options including rate control with anticoagulation versus antiarrhythmic therapy and attempted cardioversion. In a shared decision making process the patient would like to be converted to normal sinus rhythm. I plan to load her over the weekend with amiodarone and then early next week perform a TRISH cardioversion. History of Present Illness Attending Physician: Kaelyn Huddleston MD History of Present Illness This is an 84-year-old female who recently traveled to [place] for a visit with her son. She returned the next day. Soon after returning she did not feel well having an irregular heartbeat and dyspnea on exertion. Earlier this week she was seen in our practice by Yanna Pyle and found to have atrial fibrillation with RVR. She was started on Eliquis and metoprolol. The following day an echocardiogram was obtained which showed preserved left ventricular systolic function and no significant valvular pathology. She continued to feel poorly and it was recommended that she come to the emergency department where she has been admitted. Her heart rates are better controlled but she remains in atrial fibrillation. The patient does have a history of DVT in the left lower extremity. A lung perfusion scan as well as lower extremity Dopplers were negative this admission. She has a history of prior coronary artery disease and in 1996 balloon angioplasty of the right coronary artery. She had a repeat cardiac catheterization in 2011 that showed no progression of her coronary artery disease. Problem List: 1. Coronary Atherosclerosis with prior intervention with balloon angioplasty of the right coronary artery 1996. 2. Repeat cardiac catheterization December 2011 no progression coronary disease. 3. Hypertension, hypertensive heart disease. 4. Hyperlipidemia. 5. Type II diabetes mellitus. 6. Asthmatic lung disease. 7. Irritable bowel syndrome. 8. Polymyalgia rheumatica. Allergies Allergy/AdvReac Type Severity Reaction Status Date / Time metoclopramide Allergy Intermediate neuro Verified 08/20/19 18:50 complications adhesive Allergy Unknown ALLERGY TO Verified 09/26/11 10:30 TAPE naproxen [From Naprosyn] Allergy Unknown Verified 08/20/19 18:50 doxycycline AdvReac Mild n/v Verified 08/20/19 18:50 Home Medications Home Medications Medication Instructions Recorded Confirmed Type albuterol sulfate [Ventolin HFA] 2 puff INHALATION QID 08/20/19 08/20/19 History apixaban [Eliquis] 2.5 mg PO BID 08/20/19 08/20/19 History aspirin 81 mg PO MOWEFR 08/20/19 08/20/19 History atorvastatin 40 mg PO DAILY 08/20/19 08/20/19 History diclofenac sodium 4 g TOPICAL QID 08/20/19 08/20/19 History docusate sodium 100 mg PO BID 08/20/19 08/20/19 History fluoxetine 20 mg PO DAILY 08/20/19 08/20/19 History furosemide 40 mg PO DAILY 08/20/19 08/20/19 History isosorbide mononitrate 30 mg PO QAM 08/20/19 08/20/19 History lactobacillus combination no.4 0 mmu cells PO DAILY 08/20/19 08/20/19 History [Probiotic] lisinopril 5 mg PO DAILY 08/20/19 08/20/19 History magnesium oxide 400 mg PO DAILY 08/20/19 08/20/19 History metoprolol tartrate 25 mg PO BID 08/20/19 08/20/19 History omeprazole 20 mg PO QAM 08/20/19 08/20/19 History ondansetron 4 mg PO QID PRN 08/20/19 08/20/19 History oxycodone-acetaminophen 1 tab PO Q6H PRN 08/20/19 08/20/19 History potassium chloride [Klor-Con M10] 10 meq PO DAILY 08/20/19 08/20/19 History timolol maleate 1 drp OPB DAILY 08/20/19 08/20/19 History Patient History Medical History A-fib (Acute) CAD (coronary artery disease) (Chronic) "1996 - PTCA to RCA 2011 - cath that showed patent RCA and no further disease" Chest pain (Acute) Chronic back pain (Chronic) CKD stage 3 due to type 1 diabetes mellitus (Chronic) Diastolic CHF DM type 2 (diabetes mellitus, type 2) (Chronic) DVT prophylaxis Dyslipidemia (Chronic) GERD (gastroesophageal reflux disease) (Chronic) History of nephrolithiasis Sacroiliitis Surgical History History of cystoscopy History of lithotripsy History of PTCA S/P appendectomy (Chronic) S/P cholecystectomy (Chronic) S/P hysterectomy (Chronic) Family History Aunt Breast cancer Mother Diabetes Coronary heart disease Father Silicosis Social History Preferred Language: Azeri Communication Ability: Effective Visual Impairment: Partially Limited Consumer Loan Specialist Required: No Beliefs That Will Affect Care: None marital status: / Current Living Situation: Family Other Information That Helps Us Care for You: No Feels Safe at Home: Yes Safety Concerns: Feels Safe At This Time Smoking Status: Unknown if ever smoked Hx Alcohol Use: No Hx Substance Use: No Review of Systems Review of Systems: All systems reviewed & are unremarkable except as noted in HPI & below Nothing additional to add Physical Exam Physical Exam: General: no acute distress and stated age Head: normocephalic, no masses, lesions, tenderness or abnormalities Eyes: conjunctiva are pink and non-injected, sclera clear Neck: supple, no adenopathy, no bruits, normal jugular venous pulse, no hepatojugular reflux Chest: normal shape and normal respiratory effort Lungs: clear to auscultation and percussion Cardiac Exam: - irregular rate & rhythm, no murmurs gallops or rubs - normal S1, normal S2 Pulses: 2(+) throughout Abdomen: abdomen soft, non-tender, no abnormal masses and no hepatosplenomegaly Musculoskeletal: no gait disturbance, no joint inflammation, no deforming arthritis Extremities: no edema and no cyanosis Neuro: grossly normal exam Results & Data ([facility]) Vital Signs (Past 12 Hours) Vital Signs Temp Pulse Resp BP Pulse Ox 08/21/19 06:59 36.5 C 79 17 126/59 L 97 08/21/19 06:17 97 H 100/70 08/21/19 03:27 36.4 C L 98 H 16 106/72 97 08/20/19 23:54 36.3 C L 93 H 16 103/73 98 Laboratory Results Current Inpatient Medications Acetaminophen (Tylenol) 650 mg PO Q4H PRN PRN Reason: Pain or Fever Stop: 09/19/19 20:11 Albuterol (Ventolin Hfa) 2 puffs INH QID PRN PRN Reason: sob/wheezing Stop: 09/19/19 20:11 Aspirin (Ecotrin Ectab) 81 mg PO MoWeFr@0900 [facility] Stop: 09/20/19 08:59 Last Admin: 08/21/19 08:19 Dose: 81 mg Documented by: Atorvastatin Calcium (Lipitor) 40 mg PO DAILY [facility] Stop: 09/20/19 08:59 Last Admin: 08/21/19 08:20 Dose: 40 mg Documented by: Dextrose (Dextrose 50%) 25 - 50 ml IV UD PRN; Protocol PRN Reason: Hypoglycemia Protocol Stop: 09/19/19 20:11 Fluoxetine HCl (Prozac) 20 mg PO DAILY [facility] Stop: 09/20/19 08:59 Last Admin: 08/21/19 08:20 Dose: 20 mg Documented by: Furosemide (Lasix) 40 mg PO DAILY [facility] Stop: 09/20/19 08:59 Last Admin: 08/21/19 08:20 Dose: 40 mg Documented by: Glucagon (Glucagen) 1 mg SQ UD PRN; Protocol PRN Reason: Hypoglycemia Protocol Stop: 09/19/19 20:11 Glucose (Dex4 Glucose) 4 - 8 tabs PO UD PRN; Protocol PRN Reason: Hypoglycemia Protocol Stop: 09/19/19 20:11 Glucose (Glucose 40%) 15 - 30 gm PO UD PRN; Protocol PRN Reason: Hypoglycemia Protocol Stop: 09/19/19 20:11 Heparin Sodium/Dextrose (Heparin Sodium/Dextrose) 25,000 units in 500 mls @ 0 mls/hr IV .Q0M [facility]; Protocol Stop: 09/19/19 17:59 Last Titration: 08/21/19 09:06 Dose: 1,250 units/hr, 25 mls/hr Documented by: Insulin Aspart (Novolog Flexpen) 0 units SC ACHS [facility] Stop: 09/19/19 20:59 Last Admin: 08/21/19 09:07 Dose: 1 units Documented by: Isosorbide Mononitrate (Imdur Extended Rel) 30 mg PO QAM [facility] Stop: 09/20/19 08:59 Last Admin: 08/21/19 08:20 Dose: 30 mg Documented by: Lisinopril (Zestril) 5 mg PO DAILY [facility] Stop: 09/20/19 08:59 Last Admin: 08/21/19 08:20 Dose: 5 mg Documented by: Magnesium Oxide (Mag-Ox) 400 mg PO DAILY [facility] Stop: 09/20/19 08:59 Last Admin: 08/21/19 08:20 Dose: 400 mg Documented by: Metoprolol Tartrate (Lopressor) 25 mg PO Q6H [facility] Stop: 09/19/19 18:59 Last Admin: 08/21/19 06:17 Dose: 25 mg Laboratory Results - last 24 hr 08/20/19 08/20/19 08/20/19 17:11 17:11 17:11 WBC 7.63 RBC 4.86 Hgb 12.4 Hct 39.9 MCV 82.1 MCH 25.5 MCHC 31.1 L RDW Std Deviation 48.5 H RDW Coeff of Tab 16.2 H Plt Count 279 MPV 11.0 H Immature Gran % (Auto) 0.1 Neut % (Auto) 57.3 Lymph % (Auto) 34.2 [place] % (Auto) 5.6 Eos % (Auto) 2.5 Baso % (Auto) 0.3 Immature Gran # (Auto) 0.01 Neut # (Auto) 4.37 Lymph # (Auto) 2.61 [place] # (Auto) 0.43 Eos # (Auto) 0.19 Baso # (Auto) 0.02 PT 12.0 INR 1.2 H APTT 28.2 PTT Ratio 1.0 D-Dimer Sodium 138 Potassium 3.7 Chloride 106 Carbon Dioxide 27 Anion Gap 5.0 BUN 27 H Creatinine 1.77 H Est Cr Clr Drug Dosing Not Reportable Est GFR ( Amer) 30.5 Est GFR (Non-Af Amer) 26.3 BUN/Creatinine Ratio 15.4 Glucose 112 H POC Glucose Calcium 9.2 Magnesium 1.4 L Troponin I < 0.015 NT-Pro-B Natriuret Pep 7176 H Lipase 196 03/05/20 03/05/20 03/05/20 17:11 20:16 23:24 WBC RBC Hgb Hct MCV MCH MCHC RDW Std Deviation RDW Coeff of Tab Plt Count MPV Immature Gran % (Auto) Neut % (Auto) Lymph % (Auto) [place] % (Auto) Eos % (Auto) Baso % (Auto) Immature Gran # (Auto) Neut # (Auto) Lymph # (Auto) [place] # (Auto) Eos # (Auto) Baso # (Auto) PT INR APTT PTT Ratio D-Dimer 1280 H* Sodium Potassium Chloride Carbon Dioxide Anion Gap BUN Creatinine Est Cr Clr Drug Dosing Est GFR ( Amer) Est GFR (Non-Af Amer) BUN/Creatinine Ratio Glucose POC Glucose 110 H Calcium Magnesium Troponin I < 0.015 NT-Pro-B Natriuret Pep Lipase 08/20/19 08/21/19 08/21/19 23:24 06:02 06:02 WBC 6.69 RBC 4.52 Hgb 11.7 L Hct 37.4 MCV 82.7 MCH 25.9 MCHC 31.3 L RDW Std Deviation 49.1 H RDW Coeff of Tab 16.3 H Plt Count 239 MPV 11.7 H Immature Gran % (Auto) Neut % (Auto) Lymph % (Auto) [place] % (Auto) Eos % (Auto) Baso % (Auto) Immature Gran # (Auto) Neut # (Auto) Lymph # (Auto) [place] # (Auto) Eos # (Auto) Baso # (Auto) PT INR APTT 39.5 H PTT Ratio 1.5 D-Dimer Sodium 138 Potassium 4.1 Chloride 108 H Carbon Dioxide 24 Anion Gap 7.0 BUN 28 H Creatinine 1.60 H Est Cr Clr Drug Dosing 28.2 Est GFR ( Amer) 34.4 Est GFR (Non-Af Amer) 29.7 BUN/Creatinine Ratio 17.4 Glucose 113 H POC Glucose Calcium 9.4 Magnesium 2.0 Troponin I 0.016 NT-Pro-B Natriuret Pep Lipase 08/21/19 08/21/19 08/21/19 06:02 07:22 08:09 WBC RBC Hgb Hct MCV MCH MCHC RDW Std Deviation RDW Coeff of Tab Plt Count MPV Immature Gran % (Auto) Neut % (Auto) Lymph % (Auto) [place] % (Auto) Eos % (Auto) Baso % (Auto) Immature Gran # (Auto) Neut # (Auto) Lymph # (Auto) [place] # (Auto) Eos # (Auto) Baso # (Auto) PT INR APTT > 139.0 H* 72.0 H* PTT Ratio > 5.1 2.7 D-Dimer Sodium Potassium Chloride Carbon Dioxide Anion Gap BUN Creatinine Est Cr Clr Drug Dosing Est GFR ( Amer) Est GFR (Non-Af Amer) BUN/Creatinine Ratio Glucose POC Glucose 113 H Calcium Magnesium Troponin I NT-Pro-B Natriuret Pep Lipase Diagnostic Findings Echocardiogram August 19, 2019 Interpretation Summary The examination is limited quality but adequate for evaluation of the referral indication. The rhythm during the transthoracic echo examination was atrial fibrillation with rapid ventricular response. The qualitative LV ejection fraction is 55-59% (normal). The left atrium is mildly enlarged (35-41 ml/m^2). Mild aortic valve sclerosis is present. Mild tricuspid regurgitation is present. There is no evidence of pulmonary hypertension. Compared to last available study changes are noted as follows: Atrial fibrillation now present. Medications Administered Current Inpatient Medications Documented by: (1) A-fib Atrial fibrillation type: unspecified Qualified Code(s): I48.91 - Unspecified atrial fibrillation
--- NOTE | 2019-08-21 10:11 | Hospitalist Progress Note ---
Date of Service August 21, 2019 Assessment & Plan (1) Atrial fibrillation with RVR: presented with symptomatic afib rvr ( /CHOUDHARY and chest tightness x2 weeks. started on IV heparin lopressor dose increased to 25 mg PO Q6 hrs cardiology consulted appreciate input (2) Chest pain: possible due to rapid afib History of PTCA and balloon angioplasty in Follows [facility] cardiology-consult appreciated Continue ASA, statin, lisinopril, metoprolol, Imdur Recent echocardiogram on 08/17 revealed EF 55% without wall motion abnormality (3) Hypomagnesemia: Magnesium 1.4 Replete repeat mag level in a.m. (4) CAD (coronary artery disease): (5) Diastolic CHF: hx of HFpEF -as per recent ECHO presents with vol overload possible due to rapid afib reports of increased lower ext swelling , orthopnea pro bnp [id number] ordered for Lasix 40 mg IV by cardiology continue lisinopril, metoprolol monitor vol status (6) DM type 2 (diabetes mellitus, type 2): Last A1c 6.2 on 03/09/2019 Admitting glucose 112 NovoLog sliding scale per protocol (7) HTN (hypertension): Blood pressure stable Continue lisinopril, Lasix, metoprolol (8) Dyslipidemia: Continue statin (9) CKD stage 3 due to type 1 diabetes mellitus: Baseline creatinine 1.7 Monitor BMP (10) GERD (gastroesophageal reflux disease): Continue PPI (11) Chronic back pain: hx of sacroilitis on oxycodone apap 10mg q6hr prn-continued (12) DVT prophylaxis: IV heparin Disposition: cont to monitor in PCU Follow up: PCP Dr. Hooker upon discharge along with appropriate cardiology follow up Admission and Anticipated Discharge Date Admission Date: August 20, 2019 Subjective pt reports of episode of Chest heaviness /SOB this AM feels better now , + palpitation , no dizzy spell or lightheadedness HR remains in 110 Afib - Review of Systems Review of Systems: All systems reviewed & are unremarkable except as noted in HPI & below Respiratory: + dyspnea and + dyspnea on exertion; no sputum production Cardiovascular: + chest pain, + dyspnea, + orthopnea, + palpitations and + edema; no radiating jaw, neck or arm pain and no lightheadedness Physical Exam Constitutional: WD/WN, vitals as above no acute distress Eyes: PERRL, conjunctivae normal, anicteric sclerae ENMT: external ear and nose normal, oropharynx normal Neck: trachea midline, no thyromegaly Respiratory: normal respiratory effort, lungs clear to auscultation Cardiovascular: Rate/Rhythm: + tachycardic; + abnormal rate Gastrointestinal (Abdomen): normal bowel sounds, soft, nontender, no hepatosplenomegaly Musculoskeletal: no cyanosis or clubbing, extremities motor strength 5/5 Skin: no rashes, warm and dry Neurologic: PERRL, EOMI, accommodation nl, no face palsy, no dysarthria Psychiatric: A+Ox3, euthymic affect Results & Data ([facility]) Vital Signs (Past 12 Hours) Vital Signs Temp Pulse Resp BP Pulse Ox 08/21/19 06:59 36.5 C 79 17 126/59 L 97 08/21/19 06:17 97 H 100/70 08/21/19 03:27 36.4 C L 98 H 16 106/72 97 08/20/19 23:54 36.3 C L 93 H 16 103/73 98 (1) Chest pain Chest pain type: unspecified Qualified Code(s): R07.9 - Chest pain, unspecified
[2019-08-21] MEDS: AMIODARONE 200 MG TAB PO SCH ×2 (11:05→17:09)
[2019-08-21 15:23] LABS: Partial Thromboplastin Ratio 2.5
[2019-08-21 15:28] LABS: Partial Thromboplastin Time 69.6 Seconds (21.0-31.0)
[2019-08-21] MEDS: HEPARIN SODIUM/DEXTROSE 25,000 UNITS/500 ML BAG IV SCH (15:31)
--- NOTE | 2019-08-21 15:44 | Electrocardiogram Report ---
Test Reason : Blood Pressure : / mmHG Vent. Rate : 120 BPM Atrial Rate : 147 BPM P-R Int : 000 ms QRS Dur : 066 ms QT Int : 314 ms P-R-T Axes : 000 050 079 degrees QTc Int : 443 ms Atrial fibrillation with rapid ventricular response Low voltage QRS Septal infarct , age undetermined T wave abnormality, consider inferior ischemia Abnormal ECG When compared with ECG of 06-DEC-2016 14:10, Atrial fibrillation has replaced Sinus rhythm Vent. rate has increased BY 66 BPM T wave inversion now evident in Inferior leads Nonspecific T wave abnormality now evident in Anterolateral leads Confirmed by Huey Gibbs ([id number]) on 08/21/2019 3:43:44 PM Referred By: Adam Magallanes Confirmed By:Huey Gibbs
--- NOTE | 2019-08-21 15:51 | Electrocardiogram Report ---
Test Reason : Blood Pressure : / mmHG Vent. Rate : 098 BPM Atrial Rate : 000 BPM P-R Int : 000 ms QRS Dur : 074 ms QT Int : 358 ms P-R-T Axes : 000 037 051 degrees QTc Int : 457 ms Atrial fibrillation with a competing junctional pacemaker Low voltage QRS Abnormal ECG When compared with ECG of 20-AUG-2019 17:05, (unconfirmed) Criteria for Septal infarct are no longer Present T wave inversion no longer evident in Inferior leads Nonspecific T wave abnormality no longer evident in Anterolateral leads Confirmed by Huey Gibbs ([id number]) on 08/21/2019 3:50:48 PM Referred By: Adam Magallanes Confirmed By:Huey Gibbs
[2019-08-21 22:01] LABS: Partial Thromboplastin Ratio 1.9
[2019-08-21 22:03] LABS: Partial Thromboplastin Time 53.8 Seconds (21.0-31.0)
[2019-08-22 07:32] LABS: Partial Thromboplastin Ratio 3.3
[2019-08-22 07:39] LABS: BUN Creatinine Ratio 19.5 (10-20); Calcium 9.1 mg/dl (8.5-10.1); Creatinine Clr Calc Pharmacy 26.4 ml/min; Est GFR (African American) 31.3; Potassium 4.1 mmol/L (3.5-5.1)
[2019-08-22 07:41] LABS: Partial Thromboplastin Time 90.7 Seconds (21.0-31.0)
[2019-08-22] MEDS: TIMOLOL GFS 0.25% OPH SOLN 74 DROPS/5 ML BTL OPB SCH (08:17)
[2019-08-22] MEDS: INSULIN ASPART 100 UNITS/ML 3 ML PEN SC SCH ×4 (08:18→21:22)
[2019-08-22] MEDS: FUROSEMIDE 40 MG TAB PO SCH (08:20)
[2019-08-22] MEDS: AMIODARONE 200 MG TAB PO SCH (08:20)
[2019-08-22] MEDS: ISOSORBIDE MONO EXTENDED REL 30 MG TABCR PO SCH (08:20)
[2019-08-22] MEDS: PANTOprazole 40 MG TAB PO SCH (08:20)
[2019-08-22] MEDS: lisinopriL 5 MG TAB PO SCH (08:21)
[2019-08-22] MEDS: ATORVASTATIN 40 MG TAB PO SCH (08:21)
[2019-08-22] MEDS: MAGNESIUM OXIDE 400 MG TAB PO SCH (08:21)
[2019-08-22] MEDS: METOPROLOL TARTRATE 25 MG TAB PO SCH (08:21)
[2019-08-22] MEDS: FLUOXETINE HCL 20 MG CAP PO SCH (08:21)
[2019-08-22] MEDS: POTASSIUM CHLORIDE 10 MEQ TABCR PO SCH (08:21)
--- NOTE | 2019-08-22 09:04 | Cardiology Progress Note ---
Date of Service August 22, 2019 Assessment & Plan (1) Diastolic CHF: (2) A-fib: (3) CAD (coronary artery disease): (4) DM type 2 (diabetes mellitus, type 2): (5) CKD stage 3 due to type 1 diabetes mellitus: The patient remains in atrial fibrillation. I plan to increase her amiodarone to 400 mg 3 times daily today. She will be loaded over the weekend and will undergo a TRISH guided cardioversion on Saturday. I also believe she is still in some mild diastolic heart failure and I will give her additional Lasix today. Subjective The patient feels about the same. She is short of breath with activity. Comfortable at rest. She remains in atrial fibrillation with better heart rate control. Review of Systems Review of Systems: All systems reviewed & are unremarkable except as noted in HPI & below Nothing additional to add. Physical Exam Physical Exam: General: no acute distress and stated age Head: normocephalic, no masses, lesions, tenderness or abnormalities Eyes: conjunctiva are pink and non-injected, sclera clear Neck: supple, no adenopathy, no bruits, normal jugular venous pulse, no hepatojugular reflux Chest: normal shape and normal respiratory effort Lungs: clear to auscultation and percussion Cardiac Exam: - irregular rate & rhythm, no murmurs gallops or rubs - normal S1, normal S2 Pulses: 2(+) throughout Abdomen: abdomen soft, non-tender, no abnormal masses and no hepatosplenomegaly Musculoskeletal: no gait disturbance, no joint inflammation, no deforming arthritis Extremities: no edema and no cyanosis Neuro: grossly normal exam Results & Data Vital Signs (Past 12 Hours) Vital Signs Temp Pulse Pulse Pulse Resp BP Pulse Ox 08/22/19 07:55 36.3 C L 88 97 H 20 113/75 91 08/22/19 07:37 101 H 08/22/19 03:32 36.7 C 109 H 19 112/80 99 08/22/19 01:27 117 H 08/21/19 23:23 36.7 C 83 18 114/84 95 Laboratory Results Laboratory Results - last 24 hr 08/21/19 08/21/19 08/21/19 11:17 14:54 16:06 APTT 69.6 H* PTT Ratio 2.5 Sodium Potassium Chloride Carbon Dioxide Anion Gap BUN Creatinine Est Cr Clr Drug Dosing Est GFR ( Amer) Est GFR (Non-Af Amer) BUN/Creatinine Ratio Glucose POC Glucose 136 H 100 H Calcium 08/21/19 08/21/19 08/22/19 19:55 21:22 06:50 APTT 53.8 H* PTT Ratio 1.9 Sodium 137 Potassium 4.1 Chloride 106 Carbon Dioxide 25 Anion Gap 6.0 BUN 34 H Creatinine 1.73 H Est Cr Clr Drug Dosing 26.4 Est GFR ( Amer) 31.3 Est GFR (Non-Af Amer) 27.0 BUN/Creatinine Ratio 19.5 Glucose 111 H POC Glucose 104 H Calcium 9.1 08/22/19 06:50 APTT 90.7 H* PTT Ratio 3.3 Sodium Potassium Chloride Carbon Dioxide Anion Gap BUN Creatinine Est Cr Clr Drug Dosing Est GFR ( Amer) Est GFR (Non-Af Amer) BUN/Creatinine Ratio Glucose POC Glucose Calcium Medications Administered Current Inpatient Medications Acetaminophen (Tylenol) 650 mg PO Q4H PRN PRN Reason: Pain or Fever Stop: 09/19/19 20:11 Albuterol (Ventolin Hfa) 2 puffs INH QID PRN PRN Reason: sob/wheezing Stop: 09/19/19 20:11 Amiodarone HCl (Cordarone) 400 mg PO TIDM [facility] Stop: 09/21/19 11:59 Aspirin (Ecotrin Ectab) 81 mg PO MoWeFr@0900 [facility] Stop: 09/20/19 08:59 Last Admin: 08/21/19 08:19 Dose: 81 mg Documented by: Atorvastatin Calcium (Lipitor) 40 mg PO DAILY [facility] Stop: 09/20/19 08:59 Last Admin: 08/22/19 08:21 Dose: 40 mg Documented by: Dextrose (Dextrose 50%) 25 - 50 ml IV UD PRN; Protocol PRN Reason: Hypoglycemia Protocol Stop: 09/19/19 20:11 Fluoxetine HCl (Prozac) 20 mg PO DAILY [facility] Stop: 09/20/19 08:59 Last Admin: 08/22/19 08:21 Dose: 20 mg Documented by: Furosemide (Lasix) 40 mg PO DAILY [facility] Stop: 09/20/19 08:59 Last Admin: 08/22/19 08:20 Dose: 40 mg Documented by: Glucagon (Glucagen) 1 mg SQ UD PRN; Protocol PRN Reason: Hypoglycemia Protocol Stop: 09/19/19 20:11 Glucose (Dex4 Glucose) 4 - 8 tabs PO UD PRN; Protocol PRN Reason: Hypoglycemia Protocol Stop: 09/19/19 20:11 Glucose (Glucose 40%) 15 - 30 gm PO UD PRN; Protocol PRN Reason: Hypoglycemia Protocol Stop: 09/19/19 20:11 Heparin Sodium/Dextrose (Heparin Sodium/Dextrose) 25,000 units in 500 mls @ 21 mls/hr IV .[id number] [facility]; Protocol Stop: 09/19/19 17:59 Last Titration: 08/22/19 08:13 Dose: 1,050 units/hr, 21 mls/hr Documented by: Furosemide 20 mg/ Syringe 2 mls @ 4 mls/min IV 0915 [facility] Stop: 08/22/19 09:16 Insulin Aspart (Novolog Flexpen) 0 units SC ACHS [facility] Stop: 09/19/19 20:59 Last Admin: 08/22/19 08:18 Dose: 2 units Documented by: Isosorbide Mononitrate (Imdur Extended Rel) 30 mg PO QAM [facility] Stop: 09/20/19 08:59 Last Admin: 08/22/19 08:20 Dose: 30 mg Documented by: Lisinopril (Zestril) 5 mg PO DAILY [facility] Stop: 09/20/19 08:59 Last Admin: 08/22/19 08:21 Dose: 5 mg Documented by: Magnesium Oxide (Mag-Ox) 400 mg PO DAILY [facility] Stop: 09/20/19 08:59 Last Admin: 08/22/19 08:21 Dose: 400 mg Documented by: Metoprolol Tartrate (Lopressor) 5 mg IV Q6 PRN PRN Reason: For Heartrate > 100 BPM Stop: 09/20/19 07:54 Last Admin: 08/21/19 12:00 Dose: 5 mg Documented by: Metoprolol Tartrate (Lopressor) 25 mg PO BID [facility] Stop: 09/20/19 20:59 Last Admin: 08/22/19 08:21 Dose: 25 mg Documented by: Miscellaneous (Carbohydrates For Hypoglycemia) 15 - 30 gm PO UD PRN PRN Reason: Hypoglycemia Protocol Stop: 09/19/19 20:11 Ondansetron HCl (Zofran) 4 mg IV Q6H PRN PRN Reason: Nausea Stop: 09/19/19 20:11 Oxycodone/Acetaminophen (Percocet 10/325mg) 1 tab PO Q6H PRN PRN Reason: Pain Stop: 09/03/19 20:11 Pantoprazole Sodium (Protonix) 40 mg PO QAM [facility] Stop: 09/20/19 08:59 Last Admin: 08/22/19 08:20 Dose: 40 mg Documented by: Polyethylene Glycol (Miralax Powder Packet) 17 gm PO DAILY PRN PRN Reason: Constipation Stop: 09/19/19 20:11 Last Admin: 08/21/19 20:30 Dose: 17 gm Documented by: Potassium Chloride (Klor-Con M10) 10 meq PO DAILY [facility] Stop: 09/20/19 08:59 Last Admin: 08/22/19 08:21 Dose: 10 meq Documented by: Timolol Maleate (Timoptic-Xe 0.25% Oph Soln) 1 drops OPB DAILY [facility] Stop: 09/20/19 08:59 Last Admin: 08/22/19 08:17 Dose: 1 drops Documented by: (1) A-fib Atrial fibrillation type: unspecified Qualified Code(s): I48.91 - Unspecified atrial fibrillation
[2019-08-22] MEDS ORDERED: FUROSEMIDE 20 MG in SYRINGE 0 ML IV ONE (09:15)
[2019-08-22] MEDS: HEPARIN SODIUM/DEXTROSE 25,000 UNITS/500 ML BAG IV SCH (15:51)
[2019-08-22 15:57] LABS: Partial Thromboplastin Time 55.4 Seconds (21.0-31.0)
--- NOTE | 2019-08-22 18:05 | Hospitalist Progress Note ---
Date of Service August 22, 2019 Assessment & Plan (1) Atrial fibrillation with RVR: presented with symptomatic afib rvr ( /CHOUDHARY and chest tightness x2 weeks. Patient started on p.o. amiodarone,-given amiodarone p.o. loading dose Developed marked bradycardia : Treat in low 50s with 3-second pause-patient remains symptomatic Appreciate cardiology, amiodarone and beta-adolfo Continue to monitor in telemetry Denies of any dizzy spell lightheadedness no orthopnea still have speech shortness of breath with active Continue IV heparin (2) Chest pain: No further symptoms, On admission complaint of chest heaviness possible due to rapid afib History of PTCA and balloon angioplasty in Follows [facility] cardiology-consult appreciated Continue ASA, statin, lisinopril, Imdur To adolfo kept on hold for bradycardia sinus pause Recent echocardiogram on 08/17 revealed EF 55% without wall motion abnormality (3) Hypomagnesemia: Corrected (4) CAD (coronary artery disease): History of PTCA and balloon angioplasty in Follows [facility] cardiology Continue ASA, statin, lisinopril, metoprolol, Imdur No evidence of acute cardiac ischemia Recent echocardiogram on 08/17 revealed EF 55% without wall motion abnormality (5) Diastolic CHF: hx of HFpEF -as per recent ECHO presents with vol overload possible due to rapid afib reports of increased lower ext swelling , orthopnea pro bnp [id number] ordered for Lasix 40 mg IV by cardiology continue lisinopril, metoprolol monitor vol status (6) DM type 2 (diabetes mellitus, type 2): Last A1c 6.2 on 03/09/2019 Admitting glucose 112 NovoLog sliding scale per protocol (7) HTN (hypertension): Blood pressure stable Continue lisinopril, Lasix, blood on hold for bradycardia arrhythmia/sinus pause (8) Dyslipidemia: Continue statin (9) CKD stage 3 due to type 1 diabetes mellitus: Baseline creatinine 1.7 Monitor BMP (10) GERD (gastroesophageal reflux disease): Continue PPI (11) Chronic back pain: hx of sacroilitis on oxycodone apap 10mg q6hr prn-continued (12) DVT prophylaxis: IV heparin Disposition: cont to monitor in PCU Follow up: PCP Dr. Hooker upon discharge along with appropriate cardiology follow up Admission and Anticipated Discharge Date Admission Date: August 20, 2019 Subjective The patient feels about the same. She is short of breath with activity. Comfortable at rest. She remains in atrial fibrillation with better heart rate control. Physical Exam Constitutional: WD/WN, vitals as above no acute distress Eyes: PERRL, conjunctivae normal, anicteric sclerae ENMT: external ear and nose normal, oropharynx normal Neck: trachea midline, no thyromegaly Respiratory: normal respiratory effort, lungs clear to auscultation Cardiovascular: Rate/Rhythm: + tachycardic; + abnormal rate Gastrointestinal (Abdomen): normal bowel sounds, soft, nontender, no hepatosplenomegaly Musculoskeletal: no cyanosis or clubbing, extremities motor strength 5/5 Skin: no rashes, warm and dry Neurologic: PERRL, EOMI, accommodation nl, no face palsy, no dysarthria Psychiatric: A+Ox3, euthymic affect Results & Data ([facility]) Vital Signs (Past 12 Hours) Vital Signs Temp Pulse Pulse Pulse Pulse Resp BP 08/22/19 16:00 36.5 C 65 18 97/65 L 08/22/19 15:19 80 08/22/19 13:08 08/22/19 11:40 36.4 C L 67 18 80/56 L 08/22/19 07:55 36.3 C L 88 97 H 20 113/75 08/22/19 07:37 101 H BP Pulse Ox 08/22/19 16:00 97 08/22/19 15:19 08/22/19 13:08 100/67 08/22/19 11:40 95 08/22/19 07:55 91 08/22/19 07:37 (1) Chest pain Chest pain type: unspecified Qualified Code(s): R07.9 - Chest pain, unspecified
[2019-08-23 07:26] LABS: Hemoglobin 11.5 g/dL (12.0-16.0); Mean Corpuscular Hemoglobin 25.6 pg (25-34); Mean Corpuscular Hgb Conc 31.1 g/dL (32-36); Mean Corpuscular Volume 82.4 fL (80-100); Mean Platelet Volume 11.6 fL (7.4-10.4); Platelet Count 225 K/uL (130-400); RDW Coefficient of Variation 16.1 % (11.5-14.5); RDW Standard Deviation 48.2 fL (36.4-46.3); Red Blood Count 4.49 M/uL (4.2-5.4); White Blood Count 6.61 K/uL (4.8-10.8)
[2019-08-23 07:53] LABS: BUN Creatinine Ratio 18.1 (10-20); Calcium 9.4 mg/dl (8.5-10.1); Creatinine Clr Calc Pharmacy 25.5 ml/min; Est GFR (African American) 30.7; Est GFR (Non-African American) 26.5; Partial Thromboplastin Ratio 2.2; Potassium 3.9 mmol/L (3.5-5.1)
[2019-08-23 08:01] LABS: Partial Thromboplastin Time 60.1 Seconds (21.0-31.0)
[2019-08-23] MEDS: INSULIN ASPART 100 UNITS/ML 3 ML PEN SC SCH ×4 (08:12→20:00)
[2019-08-23] MEDS: PANTOprazole 40 MG TAB PO SCH (08:56)
[2019-08-23] MEDS: POTASSIUM CHLORIDE 10 MEQ TABCR PO SCH (08:56)
[2019-08-23] MEDS: FLUOXETINE HCL 20 MG CAP PO SCH (08:56)
[2019-08-23] MEDS: ATORVASTATIN 40 MG TAB PO SCH (08:57)
[2019-08-23] MEDS: FUROSEMIDE 40 MG TAB PO SCH (08:57)
[2019-08-23] MEDS: MAGNESIUM OXIDE 400 MG TAB PO SCH (08:57)
[2019-08-23] MEDS: lisinopriL 5 MG TAB PO SCH (08:57)
[2019-08-23] MEDS: TIMOLOL GFS 0.25% OPH SOLN 74 DROPS/5 ML BTL OPB SCH (08:58)
[2019-08-23] MEDS: ISOSORBIDE MONO EXTENDED REL 30 MG TABCR PO SCH (08:58)
--- NOTE | 2019-08-23 10:14 | Cardiology Progress Note ---
Date of Service August 23, 2019 Assessment & Plan (1) Diastolic CHF: (2) A-fib: (3) CAD (coronary artery disease): (4) DM type 2 (diabetes mellitus, type 2): (5) CKD stage 3 due to type 1 diabetes mellitus: The patient's heart rates have improved today off of the metoprolol. Amiodarone will be resumed. She is in persistent atrial fibrillation which is symptomatic with chest discomfort when her heart rates are high. I discussed the option of a transesophageal echocardiogram followed by early cardioversion. I explained the risk, benefit and intent of the cardioversion and TRISH to her and she is willing to proceed. It will be scheduled tomorrow. We will consult anesthesia to help us with the procedure. She will be n.p.o. after midnight except for medications. Subjective The patient has no new complaints today. She still feels her heart racing whenever the rates are elevated. Review of Systems Review of Systems: All systems reviewed & are unremarkable except as noted in HPI & below Nothing additional. Physical Exam Physical Exam: General: no acute distress and stated age Head: normocephalic, no masses, lesions, tenderness or abnormalities Eyes: conjunctiva are pink and non-injected, sclera clear Neck: supple, no adenopathy, no bruits, normal jugular venous pulse, no hepatojugular reflux Chest: normal shape and normal respiratory effort Lungs: clear to auscultation and percussion Cardiac Exam: - irregular rate & rhythm, no murmurs gallops or rubs - normal S1, normal S2 Pulses: 2(+) throughout Abdomen: abdomen soft, non-tender, no abnormal masses and no hepatosplenomegaly Musculoskeletal: no gait disturbance, no joint inflammation, no deforming arthritis Extremities: no edema and no cyanosis Neuro: grossly normal exam Results & Data Vital Signs (Past 12 Hours) Vital Signs Temp Pulse Pulse Pulse Resp BP Pulse Ox 08/23/19 07:32 104 H 08/23/19 07:29 36.5 C 85 18 119/86 98 08/23/19 03:46 36.4 C L 92 H 18 116/79 97 08/22/19 23:34 78 08/22/19 23:20 36.4 C L 103 H 17 104/72 98 Laboratory Results Laboratory Results - last 24 hr 08/22/19 08/22/19 08/22/19 12:03 15:22 16:35 WBC RBC Hgb Hct MCV MCH MCHC RDW Std Deviation RDW Coeff of Tab Plt Count MPV APTT 55.4 H* PTT Ratio 2.0 Sodium Potassium Chloride Carbon Dioxide Anion Gap BUN Creatinine Est Cr Clr Drug Dosing Est GFR ( Amer) Est GFR (Non-Af Amer) BUN/Creatinine Ratio Glucose POC Glucose 111 H 99 Calcium 08/22/19 08/23/19 08/23/19 20:25 06:39 06:39 WBC RBC Hgb Hct MCV MCH MCHC RDW Std Deviation RDW Coeff of Tab Plt Count MPV APTT 60.1 H* PTT Ratio 2.2 Sodium 136 Potassium 3.9 Chloride 103 Carbon Dioxide 25 Anion Gap 9.0 BUN 32 H Creatinine 1.76 H Est Cr Clr Drug Dosing 25.5 Est GFR ( Amer) 30.7 Est GFR (Non-Af Amer) 26.5 BUN/Creatinine Ratio 18.1 Glucose 108 H POC Glucose 116 H Calcium 9.4 08/23/19 08/23/19 06:39 07:21 WBC 6.61 RBC 4.49 Hgb 11.5 L Hct 37.0 MCV 82.4 MCH 25.6 MCHC 31.1 L RDW Std Deviation 48.2 H RDW Coeff of Tab 16.1 H Plt Count 225 MPV 11.6 H APTT PTT Ratio Sodium Potassium Chloride Carbon Dioxide Anion Gap BUN Creatinine Est Cr Clr Drug Dosing Est GFR ( Amer) Est GFR (Non-Af Amer) BUN/Creatinine Ratio Glucose POC Glucose 109 H Calcium Medications Administered Current Inpatient Medications Acetaminophen (Tylenol) 650 mg PO Q4H PRN PRN Reason: Pain or Fever Stop: 09/19/19 20:11 Albuterol (Ventolin Hfa) 2 puffs INH QID PRN PRN Reason: sob/wheezing Stop: 09/19/19 20:11 Amiodarone HCl (Cordarone) 400 mg PO TIDM [facility] Stop: 09/21/19 11:59 Aspirin (Ecotrin Ectab) 81 mg PO MoWeFr@0900 [facility] Stop: 09/20/19 08:59 Last Admin: 08/21/19 08:19 Dose: 81 mg Documented by: Atorvastatin Calcium (Lipitor) 40 mg PO DAILY [facility] Stop: 09/20/19 08:59 Last Admin: 08/23/19 08:57 Dose: 40 mg Documented by: Dextrose (Dextrose 50%) 25 - 50 ml IV UD PRN; Protocol PRN Reason: Hypoglycemia Protocol Stop: 09/19/19 20:11 Fluoxetine HCl (Prozac) 20 mg PO DAILY [facility] Stop: 09/20/19 08:59 Last Admin: 08/23/19 08:56 Dose: 20 mg Documented by: Furosemide (Lasix) 40 mg PO DAILY [facility] Stop: 09/20/19 08:59 Last Admin: 08/23/19 08:57 Dose: 40 mg Documented by: Glucagon (Glucagen) 1 mg SQ UD PRN; Protocol PRN Reason: Hypoglycemia Protocol Stop: 09/19/19 20:11 Glucose (Dex4 Glucose) 4 - 8 tabs PO UD PRN; Protocol PRN Reason: Hypoglycemia Protocol Stop: 09/19/19 20:11 Glucose (Glucose 40%) 15 - 30 gm PO UD PRN; Protocol PRN Reason: Hypoglycemia Protocol Stop: 09/19/19 20:11 Heparin Sodium/Dextrose (Heparin Sodium/Dextrose) 25,000 units in 500 mls @ 21 mls/hr IV .[id number] [facility]; Protocol Stop: 09/19/19 17:59 Last Titration: 08/23/19 08:13 Dose: 21 units/hr, 0.4 mls/hr Documented by: Insulin Aspart (Novolog Flexpen) 0 units SC ACHS [facility] Stop: 09/19/19 20:59 Last Admin: 08/23/19 08:12 Dose: 1 units Documented by: Isosorbide Mononitrate (Imdur Extended Rel) 30 mg PO QAM [facility] Stop: 09/20/19 08:59 Last Admin: 08/23/19 08:58 Dose: 30 mg Documented by: Lisinopril (Zestril) 5 mg PO DAILY [facility] Stop: 09/20/19 08:59 Last Admin: 08/23/19 08:57 Dose: 5 mg Documented by: Magnesium Oxide (Mag-Ox) 400 mg PO DAILY [facility] Stop: 09/20/19 08:59 Last Admin: 08/23/19 08:57 Dose: 400 mg Documented by: Metoprolol Tartrate (Lopressor) 5 mg IV Q6 PRN PRN Reason: For Heartrate > 100 BPM Stop: 09/20/19 07:54 Last Admin: 08/21/19 12:00 Dose: 5 mg Documented by: Metoprolol Tartrate (Lopressor) 25 mg PO BID [facility] Stop: 09/20/19 20:59 Last Admin: 08/22/19 08:21 Dose: 25 mg Documented by: Miscellaneous (Carbohydrates For Hypoglycemia) 15 - 30 gm PO UD PRN PRN Reason: Hypoglycemia Protocol Stop: 09/19/19 20:11 Ondansetron HCl (Zofran) 4 mg IV Q6H PRN PRN Reason: Nausea Stop: 09/19/19 20:11 Oxycodone/Acetaminophen (Percocet 10/325mg) 1 tab PO Q6H PRN PRN Reason: Pain Stop: 09/03/19 20:11 Pantoprazole Sodium (Protonix) 40 mg PO QAM [facility] Stop: 09/20/19 08:59 Last Admin: 08/23/19 08:56 Dose: 40 mg Documented by: Polyethylene Glycol (Miralax Powder Packet) 17 gm PO DAILY PRN PRN Reason: Constipation Stop: 09/19/19 20:11 Last Admin: 08/21/19 20:30 Dose: 17 gm Documented by: Potassium Chloride (Klor-Con M10) 10 meq PO DAILY [facility] Stop: 09/20/19 08:59 Last Admin: 08/23/19 08:56 Dose: 10 meq Documented by: Timolol Maleate (Timoptic-Xe 0.25% Oph Soln) 1 drops OPB DAILY [facility] Stop: 09/20/19 08:59 Last Admin: 08/23/19 08:58 Dose: 1 drops Documented by: (1) A-fib Atrial fibrillation type: unspecified Qualified Code(s): I48.91 - Unspecified atrial fibrillation
--- NOTE | 2019-08-23 11:24 | Anesthesiology Consultation ---
Date of Service August 23, 2019 Assessment & Plan Chart Review Chart Review: Acceptable Risk for Surgery and Patient NOT seen in Pre Admission Testing Consults Requested none ASA ASA4 History Height/Weight Height: 5 ft 2 in Weight: 88.9 kg Allergies Allergy/AdvReac Type Severity Reaction Status Date / Time metoclopramide Allergy Intermediate neuro Verified 08/20/19 18:50 complications adhesive Allergy Unknown ALLERGY TO Verified 09/26/11 10:30 TAPE naproxen [From Naprosyn] Allergy Unknown Verified 08/20/19 18:50 doxycycline AdvReac Mild n/v Verified 08/20/19 18:50 Medications Home Medications Medication Instructions Recorded Confirmed Last Taken albuterol sulfate [Ventolin HFA] 2 puff INHALATION QID 08/20/19 08/20/19 Unknown apixaban [Eliquis] 2.5 mg PO BID 08/20/19 08/20/19 Unknown aspirin 81 mg PO MOWEFR 08/20/19 08/20/19 Unknown atorvastatin 40 mg PO DAILY 08/20/19 08/20/19 Unknown diclofenac sodium 4 g TOPICAL QID 08/20/19 08/20/19 Unknown docusate sodium 100 mg PO BID 08/20/19 08/20/19 Unknown fluoxetine 20 mg PO DAILY 08/20/19 08/20/19 Unknown furosemide 40 mg PO DAILY 08/20/19 08/20/19 Unknown isosorbide mononitrate 30 mg PO QAM 08/20/19 08/20/19 Unknown lactobacillus combination no.4 0 mmu cells PO DAILY 08/20/19 08/20/19 Unknown [Probiotic] lisinopril 5 mg PO DAILY 08/20/19 08/20/19 Unknown magnesium oxide 400 mg PO DAILY 08/20/19 08/20/19 Unknown metoprolol tartrate 25 mg PO BID 08/20/19 08/20/19 Unknown omeprazole 20 mg PO QAM 08/20/19 08/20/19 Unknown ondansetron 4 mg PO QID PRN 08/20/19 08/20/19 Unknown oxycodone-acetaminophen 1 tab PO Q6H PRN 08/20/19 08/20/19 Unknown potassium chloride [Klor-Con M10] 10 meq PO DAILY 08/20/19 08/20/19 Unknown timolol maleate 1 drp OPB DAILY 08/20/19 08/20/19 Unknown Active Medications Generic Name Dose Route Start Last Admin Trade Name Freq PRN Reason Stop Dose Admin Aspirin 81 mg 08/21/19 09:00 08/21/19 08:19 Ecotrin Ectab PO 09/20/19 08:59 81 mg MoWeFr@0900 [facility] Administration Atorvastatin Calcium 40 mg 08/21/19 09:00 08/23/19 08:57 Lipitor PO 09/20/19 08:59 40 mg DAILY [facility] Administration Fluoxetine HCl 20 mg 08/21/19 09:00 08/23/19 08:56 Prozac PO 09/20/19 08:59 20 mg DAILY [facility] Administration Furosemide 40 mg 08/21/19 09:00 08/23/19 08:57 Lasix PO 09/20/19 08:59 40 mg DAILY [facility] Administration Heparin Sodium/Dextrose 25,000 units in 500 mls @ 21 mls/hr 08/20/19 18:00 08/23/19 08:13 Heparin Sodium/Dextrose IV 09/19/19 17:59 21 units/hr .[id number] [facility] 0.4 mls/hr Titration Protocol 1,050 UNITS/HR Insulin Aspart 0 units 08/20/19 21:00 08/23/19 08:12 Novolog Flexpen SC 09/19/19 20:59 1 units ACHS [facility] Administration Isosorbide Mononitrate 30 mg 08/21/19 09:00 08/23/19 08:58 Imdur Extended Rel PO 09/20/19 08:59 30 mg QAM [facility] Administration Lisinopril 5 mg 08/21/19 09:00 08/23/19 08:57 Zestril PO 09/20/19 08:59 5 mg DAILY [facility] Administration Magnesium Oxide 400 mg 08/21/19 09:00 08/23/19 08:57 Mag-Ox PO 09/20/19 08:59 400 mg DAILY [facility] Administration Metoprolol Tartrate 5 mg 08/21/19 07:55 08/21/19 12:00 Lopressor IV 09/20/19 07:54 5 mg Q6 PRN Administration For Heartrate > 100 BPM Metoprolol Tartrate 25 mg 08/21/19 21:00 08/22/19 08:21 Lopressor PO 09/20/19 20:59 25 mg BID [facility] Administration Pantoprazole Sodium 40 mg 08/21/19 09:00 08/23/19 08:56 Protonix PO 09/20/19 08:59 40 mg QAM [facility] Administration Polyethylene Glycol 17 gm 08/20/19 20:12 08/21/19 20:30 Miralax Powder Packet PO 09/19/19 20:11 17 gm DAILY PRN Administration Constipation Potassium Chloride 10 meq 08/21/19 09:00 08/23/19 08:56 Klor-Con M10 PO 09/20/19 08:59 10 meq DAILY [facility] Administration Timolol Maleate 1 drops 08/21/19 09:00 08/23/19 08:58 Timoptic-Xe 0.25% Oph Soln OPB 09/20/19 08:59 1 drops DAILY [facility] Administration Past Medical History Medical History A-fib (Acute) CAD (coronary artery disease) (Chronic) "1996 - PTCA to RCA 2011 - cath that showed patent RCA and no further disease" Chest pain (Acute) Chronic back pain (Chronic) CKD stage 3 due to type 1 diabetes mellitus (Chronic) Diastolic CHF DM type 2 (diabetes mellitus, type 2) (Chronic) DVT prophylaxis Dyslipidemia (Chronic) GERD (gastroesophageal reflux disease) (Chronic) History of nephrolithiasis Sacroiliitis Exercise / Class Metabolic Activity III < 4 Walking/Shop/Light housework Past Family History Family History Aunt Breast cancer Mother Diabetes Coronary heart disease Father Silicosis Past Surgical History Surgical History History of cystoscopy History of lithotripsy History of PTCA S/P appendectomy (Chronic) S/P cholecystectomy (Chronic) S/P hysterectomy (Chronic) Past Anesthesia History No Hx of Anesthesia Complications and No Family Hx of Anesthesia Complications History of PONV No Hx of PONV and No Hx of Motion Sickness Social History Smoking Status: Unknown if ever smoked Smoking End Date: 1994 Hx Alcohol Use: No Hx Substance Use: No Physical Exam Vital Signs Last Vital Signs Temp 36.5 C 08/23/19 07:29 Pulse 104 H 08/23/19 07:32 Resp 18 08/23/19 07:29 BP 119/86 08/23/19 07:29 Pulse Ox 98 08/23/19 07:29 Testing Laboratory Results 08/23/19 06:39 08/23/19 06:39 PT 12.0 Seconds (9.0-12.0) 08/20/19 17:11 INR 1.2 (0.9-1.1) H 08/20/19 17:11 APTT 60.1 Seconds (21.0-31.0) H* 08/23/19 06:39 08/23/19 08/23/19 11:12 07:21 POC Glucose 149 H 109 H Electrocardiogram Date: 08/22/19 Findings: + AFIB @ (at 78;Low Voltage QRS) Chest X-Ray Date: 08/20/19 Findings: + cardiomegaly and + atherosclerosis of thoracic aorta Hiatal Hernia
--- NOTE | 2019-08-23 12:36 | Hospitalist Progress Note ---
Date of Service August 23, 2019 Assessment & Plan (1) Atrial fibrillation with RVR: Remains in A. fib/a flutter: Appreciate input from cardiology, amiodarone resumed Patient will be continued on PCU, continue IV heparin n.p.o. past midnight Plan for TRISH cardioversion in a.m. presented with symptomatic afib rvr ( /CHOUDHARY and chest tightness x2 weeks. (2) Chest pain: No further symptoms, On admission complaint of chest heaviness possible due to rapid afib History of PTCA and balloon angioplasty in Follows [facility] cardiology-consult appreciated Continue ASA, statin, lisinopril, Imdur Recent echocardiogram on 08/17 revealed EF 55% without wall motion abnormality Plan for TRISH cardioversion in a.m. (3) Hypomagnesemia: Corrected (4) CAD (coronary artery disease): History of PTCA and balloon angioplasty in Follows [facility] cardiology Continue ASA, statin, lisinopril, Imdur No evidence of acute cardiac ischemia Recent echocardiogram on 08/17 revealed EF 55% without wall motion abnormality (5) Diastolic CHF: hx of HFpEF -as per recent ECHO presents with vol overload possible due to rapid afib reports of increased lower ext swelling , orthopnea pro bnp [id number] ordered for Lasix 40 mg IV by cardiology continue lisinopril, metoprolol monitor vol status (6) DM type 2 (diabetes mellitus, type 2): Last A1c 6.2 on 03/09/2019 Admitting glucose 112 NovoLog sliding scale per protocol (7) HTN (hypertension): Blood pressure stable Continue lisinopril, Lasix, (8) Dyslipidemia: Continue statin (9) CKD stage 3 due to type 1 diabetes mellitus: Baseline creatinine 1.7 Monitor BMP (10) GERD (gastroesophageal reflux disease): Continue PPI (11) Chronic back pain: hx of sacroilitis on oxycodone apap 10mg q6hr prn-continued (12) DVT prophylaxis: IV heparin Disposition: cont to monitor in PCU Follow up: PCP Dr. Hooker upon discharge along with appropriate cardiology follow up Admission and Anticipated Discharge Date Admission Date: August 20, 2019 Subjective Patient continues to have shortness of breath, still very dyspneic with minimal activity, walking to bathroom Experiencing intermittent palpitation, No resting chest heaviness or chest pressure, no shortness of breath at rest, no orthopnea Remains in A. fib/a flutter in telemetry Review of Systems Review of Systems: All systems reviewed & are unremarkable except as noted in HPI & below Cardiovascular: + chest pain with activity, + dyspnea on exertion, + palpitations and + lightheadedness; no syncope Physical Exam Constitutional: WD/WN, vitals as above no acute distress Eyes: PERRL, conjunctivae normal, anicteric sclerae ENMT: external ear and nose normal, oropharynx normal Neck: trachea midline, no thyromegaly Respiratory: normal respiratory effort, lungs clear to auscultation Cardiovascular: Rate/Rhythm: + tachycardic; + abnormal rate Gastrointestinal (Abdomen): normal bowel sounds, soft, nontender, no hepatosplenomegaly Musculoskeletal: no cyanosis or clubbing, extremities motor strength 5/5 Skin: no rashes, warm and dry Neurologic: PERRL, EOMI, accommodation nl, no face palsy, no dysarthria Psychiatric: A+Ox3, euthymic affect Results & Data ([facility]) Vital Signs (Past 12 Hours) Vital Signs Temp Pulse Pulse Pulse Resp BP Pulse Ox 08/23/19 11:50 36.4 C L 87 17 102/69 98 08/23/19 07:32 104 H 08/23/19 07:29 36.5 C 85 18 119/86 98 08/23/19 03:46 36.4 C L 92 H 18 116/79 97 (1) Chest pain Chest pain type: unspecified Qualified Code(s): R07.9 - Chest pain, unspecified
[2019-08-23] MEDS: AMIODARONE 200 MG TAB PO SCH ×2 (13:21→17:04)
[2019-08-23] MEDS: HEPARIN SODIUM/DEXTROSE 25,000 UNITS/500 ML BAG IV SCH (15:15)
[2019-08-24 07:20] LABS: Partial Thromboplastin Ratio 2.1
[2019-08-24 07:21] LABS: Partial Thromboplastin Time 59.5 Seconds (21.0-31.0)
[2019-08-24] MEDS ORDERED: ePHEDrine sulfate 50 MG/ML AMP IV PRN (07:45)
[2019-08-24] MEDS ORDERED: ATROPINE SULFATE 0.1 MG/ML 10ML SYR IV PRN (07:45)
[2019-08-24] MEDS ORDERED: PROPOFOL IV EMULSION 10 MG/ML 20 ML VIAL IV ONE (08:34)
[2019-08-24] MEDS ORDERED: LIDOCAINE HCL 2% 2 ML VIAL/AMP(20MG/ML) INFIL ONE (08:34)
[2019-08-24] MEDS: FUROSEMIDE 40 MG TAB PO SCH (08:57)
[2019-08-24] MEDS: FLUOXETINE HCL 20 MG CAP PO SCH (08:57)
[2019-08-24] MEDS: INSULIN ASPART 100 UNITS/ML 3 ML PEN SC SCH ×4 (08:57→20:15)
[2019-08-24] MEDS: ATORVASTATIN 40 MG TAB PO SCH (08:57)
[2019-08-24] MEDS: AMIODARONE 200 MG TAB PO SCH ×3 (08:57→17:20)
[2019-08-24] MEDS: POTASSIUM CHLORIDE 10 MEQ TABCR PO SCH (08:57)
[2019-08-24] MEDS: lisinopriL 5 MG TAB PO SCH (08:58)
[2019-08-24] MEDS: PANTOprazole 40 MG TAB PO SCH (08:58)
[2019-08-24] MEDS: ASPIRIN 81 MG ECTAB PO SCH (08:58)
[2019-08-24] MEDS: ISOSORBIDE MONO EXTENDED REL 30 MG TABCR PO SCH (08:58)
[2019-08-24] MEDS: MAGNESIUM OXIDE 400 MG TAB PO SCH (08:58)
[2019-08-24] MEDS: TIMOLOL GFS 0.25% OPH SOLN 74 DROPS/5 ML BTL OPB SCH (08:59)
[2019-08-24] MEDS: APIXABAN 2.5 MG TAB PO SCH ×2 (09:15→19:14)
--- NOTE | 2019-08-24 09:52 | Cardioversion ---
Date of Service August 24, 2019 Electrical Cardioversion Rpt Electrical Cardioversion Report After informed consent was obtained, the patient was sedated by anesthesia. Transesophageal echocardiogram was performed weeks excluded contraindications to a cardioversion. Patient then received 200 J of synchronized energy which converted her to a normal sinus rhythm. The patient was recovered and returned to her room in stable condition.
--- NOTE | 2019-08-24 09:54 | Cardiology Progress Note ---
Date of Service August 24, 2019 Assessment & Plan (1) Diastolic CHF: (2) Atrial fibrillation with RVR: (3) CAD (coronary artery disease): The patient underwent a successful cardioversion today. I will stop her heparin and start her on Eliquis. If all goes well and she maintained sinus rhythm, we will arrange for discharge tomorrow. Subjective The patient was seen post cardioversion. She is doing well and has no current complaints. She is maintaining sinus rhythm. Review of Systems Review of Systems: All systems reviewed & are unremarkable except as noted in HPI & below Nothing additional to add. Physical Exam Physical Exam: General: no acute distress and stated age Head: normocephalic, no masses, lesions, tenderness or abnormalities Eyes: conjunctiva are pink and non-injected, sclera clear Neck: supple, no adenopathy, no bruits, normal jugular venous pulse, no hepatojugular reflux Chest: normal shape and normal respiratory effort Lungs: clear to auscultation and percussion Cardiac Exam: - regular rate & rhythm, no murmurs gallops or rubs - normal S1, normal S2 Pulses: 2(+) throughout Abdomen: abdomen soft, non-tender, no abnormal masses and no hepatosplenomegaly Musculoskeletal: no gait disturbance, no joint inflammation, no deforming arthritis Extremities: no edema and no cyanosis Neuro: grossly normal exam Results & Data Vital Signs (Past 12 Hours) Vital Signs Temp Pulse Pulse Pulse Resp BP Pulse Ox 08/24/19 08:45 60 14 119/74 95 08/24/19 08:30 65 14 126/95 98 08/24/19 07:36 72 16 150/103 H 99 08/24/19 04:00 36.4 C L 75 18 121/84 97 08/24/19 00:00 93 H 08/23/19 23:16 36.5 C 96 H 18 133/74 96 Laboratory Results Laboratory Results - last 24 hr 08/23/19 08/23/19 08/23/19 11:12 16:19 20:44 APTT PTT Ratio POC Glucose 149 H 106 H 102 H 08/24/19 08/24/19 06:24 07:05 APTT 59.5 H* PTT Ratio 2.1 POC Glucose 122 H Medications Administered Current Inpatient Medications Acetaminophen (Tylenol) 650 mg PO Q4H PRN PRN Reason: Pain or Fever Stop: 09/19/19 20:11 Albuterol (Ventolin Hfa) 2 puffs INH QID PRN PRN Reason: sob/wheezing Stop: 09/19/19 20:11 Amiodarone HCl (Cordarone) 400 mg PO TIDM [facility] Stop: 09/21/19 11:59 Last Admin: 08/24/19 08:57 Dose: 400 mg Documented by: Apixaban (Eliquis) 2.5 mg PO BID [facility] Stop: 09/23/19 08:59 Last Admin: 08/24/19 09:15 Dose: 2.5 mg Documented by: Aspirin (Ecotrin Ectab) 81 mg PO MoWeFr@0900 [facility] Stop: 09/20/19 08:59 Last Admin: 08/24/19 08:58 Dose: 81 mg Documented by: Atorvastatin Calcium (Lipitor) 40 mg PO DAILY [facility] Stop: 09/20/19 08:59 Last Admin: 08/24/19 08:57 Dose: 40 mg Documented by: Atropine Sulfate (Atropine Sulfate) 0.5 mg IV Q1M PRN PRN Reason: PACU Use-HR<40 &/or Bradycardi Stop: 08/24/19 15:45 Dextrose (Dextrose 50%) 25 - 50 ml IV UD PRN; Protocol PRN Reason: Hypoglycemia Protocol Stop: 09/19/19 20:11 Ephedrine Sulfate (Ephedrine Sulfate) 5 mg IV Q5M PRN PRN Reason: PACU Use Only-SBP<90 mmHg Stop: 08/24/19 15:45 Fluoxetine HCl (Prozac) 20 mg PO DAILY [facility] Stop: 09/20/19 08:59 Last Admin: 08/24/19 08:57 Dose: 20 mg Documented by: Furosemide (Lasix) 40 mg PO DAILY [facility] Stop: 09/20/19 08:59 Last Admin: 08/24/19 08:57 Dose: 40 mg Documented by: Glucagon (Glucagen) 1 mg SQ UD PRN; Protocol PRN Reason: Hypoglycemia Protocol Stop: 09/19/19 20:11 Glucose (Dex4 Glucose) 4 - 8 tabs PO UD PRN; Protocol PRN Reason: Hypoglycemia Protocol Stop: 09/19/19 20:11 Glucose (Glucose 40%) 15 - 30 gm PO UD PRN; Protocol PRN Reason: Hypoglycemia Protocol Stop: 09/19/19 20:11 Insulin Aspart (Novolog Flexpen) 0 units SC ACHS [facility] Stop: 09/19/19 20:59 Last Admin: 08/24/19 08:57 Dose: Not Given Documented by: Isosorbide Mononitrate (Imdur Extended Rel) 30 mg PO QAM [facility] Stop: 09/20/19 08:59 Last Admin: 08/24/19 08:58 Dose: 30 mg Documented by: Lisinopril (Zestril) 5 mg PO DAILY [facility] Stop: 09/20/19 08:59 Last Admin: 08/24/19 08:58 Dose: 5 mg Documented by: Magnesium Oxide (Mag-Ox) 400 mg PO DAILY [facility] Stop: 09/20/19 08:59 Last Admin: 08/24/19 08:58 Dose: 400 mg Documented by: Metoprolol Tartrate (Lopressor) 5 mg IV Q6 PRN PRN Reason: For Heartrate > 100 BPM Stop: 09/20/19 07:54 Last Admin: 08/21/19 12:00 Dose: 5 mg Documented by: Metoprolol Tartrate (Lopressor) 25 mg PO BID [facility] Stop: 09/20/19 20:59 Last Admin: 08/22/19 08:21 Dose: 25 mg Documented by: Miscellaneous (Carbohydrates For Hypoglycemia) 15 - 30 gm PO UD PRN PRN Reason: Hypoglycemia Protocol Stop: 09/19/19 20:11 Ondansetron HCl (Zofran) 4 mg IV Q6H PRN PRN Reason: Nausea Stop: 09/19/19 20:11 Oxycodone/Acetaminophen (Percocet 10/325mg) 1 tab PO Q6H PRN PRN Reason: Pain Stop: 09/03/19 20:11 Pantoprazole Sodium (Protonix) 40 mg PO QAM [facility] Stop: 09/20/19 08:59 Last Admin: 08/24/19 08:58 Dose: 40 mg Documented by: Polyethylene Glycol (Miralax Powder Packet) 17 gm PO DAILY PRN PRN Reason: Constipation Stop: 09/19/19 20:11 Last Admin: 08/21/19 20:30 Dose: 17 gm Documented by: Potassium Chloride (Klor-Con M10) 10 meq PO DAILY [facility] Stop: 09/20/19 08:59 Last Admin: 08/24/19 08:57 Dose: 10 meq Documented by: Timolol Maleate (Timoptic-Xe 0.25% Oph Soln) 1 drops OPB DAILY [facility] Stop: 09/20/19 08:59 Last Admin: 08/24/19 08:59 Dose: 1 drops Documented by:
--- NOTE | 2019-08-24 10:27 | Anesthesiology Progress Note ---
Date of Service August 24, 2019 Anesthesia Post Procedure Vital Signs Vital Signs: Temp Pulse Pulse Pulse Resp BP Pulse Ox 08/24/19 08:45 60 14 119/74 95 08/24/19 08:30 65 14 126/95 98 08/24/19 07:36 72 16 150/103 H 99 08/24/19 04:00 36.4 C L 75 18 121/84 97 08/24/19 00:00 93 H 08/23/19 23:16 36.5 C 96 H 18 133/74 96 08/23/19 19:37 36.4 C L 86 18 129/83 97 08/23/19 15:44 79 08/23/19 15:33 36.4 C L 89 17 105/72 95 08/23/19 11:50 36.4 C L 87 17 102/69 98 Transfer of Care Handoff Completed per policy Notes Mental Status: alert / awake / arousable Patient Amnestic to Procedure: Yes Nausea / Vomiting: adequately controlled Pain: adequately controlled Airway Patency, RR, SpO2: stable & adequate BP & HR: stable & adequate Hydration State: stable & adequate Anesthetic Complications: no major complications apparent
--- NOTE | 2019-08-24 11:56 | Hospitalist Progress Note ---
Date of Service August 24, 2019 Assessment & Plan (1) Atrial fibrillation with RVR: Remains in A. fib/a flutter: Appreciate input from cardiology, amiodarone resumed on 400 mg p.o. 3 times daily s/p TRISH cardioversion today IV heparin d/chikis started on Eliquis presented with symptomatic afib rvr ( /CHOUDHARY and chest tightness x2 weeks. (2) Chest pain: No further symptoms, On admission complaint of chest heaviness possible due to rapid afib History of PTCA and balloon angioplasty in Follows [facility] cardiology-consult appreciated Continue ASA, statin, lisinopril, Imdur Recent echocardiogram on 08/17 revealed EF 55% without wall motion abnormality s/p successful TRISH cardioversion today (3) Hypomagnesemia: Corrected (4) CAD (coronary artery disease): History of PTCA and balloon angioplasty in Follows [facility] cardiology Continue ASA, statin, lisinopril, Imdur No evidence of acute cardiac ischemia Recent echocardiogram on 08/17 revealed EF 55% without wall motion abnormality (5) Diastolic CHF: hx of HFpEF -as per recent ECHO presents with vol overload possible due to rapid afib reports of increased lower ext swelling , orthopnea pro bnp 7176 cont PO lasix 40 mg daily continue lisinopril, metoprolol monitor vol status (6) DM type 2 (diabetes mellitus, type 2): Last A1c 6.2 on 03/09/2019 Admitting glucose 112 NovoLog sliding scale per protocol (7) HTN (hypertension): Blood pressure stable Continue lisinopril, Lasix, (8) Dyslipidemia: Continue statin (9) CKD stage 3 due to type 1 diabetes mellitus: Baseline creatinine 1.7 Monitor BMP (10) GERD (gastroesophageal reflux disease): Continue PPI (11) Chronic back pain: hx of sacroilitis on oxycodone apap 10mg q6hr prn-continued (12) DVT prophylaxis: eliquis Disposition: cont to monitor in PCU possible dc home tomorrow Follow up: PCP Dr. Hooker upon discharge along with appropriate cardiology follow up Admission and Anticipated Discharge Date Admission Date: August 20, 2019 Anticipated date of discharge: 08/25/19 Subjective Status post cardioversion this morning Remains in sinus with rate controlled in 70s Patient reports of improvement of energy, Minimum dyspnea on exertion, no orthopnea, no complaint of palpitation dizzy spell lightheadedness Continue to monitor patient in telemetry for next 24 hours Review of Systems Review of Systems: All systems reviewed & are unremarkable except as noted in HPI & below Cardiovascular: no chest pain, no chest pain with activity, no dyspnea, no dyspnea at rest, no orthopnea, no palpitations, no lightheadedness, no syncope and no edema Physical Exam Constitutional: WD/WN, vitals as above no acute distress Eyes: PERRL, conjunctivae normal, anicteric sclerae ENMT: external ear and nose normal, oropharynx normal Neck: trachea midline, no thyromegaly Respiratory: normal respiratory effort, lungs clear to auscultation Cardiovascular: RRR, no murmur, no edema Gastrointestinal (Abdomen): normal bowel sounds, soft, nontender, no hepatosplenomegaly Musculoskeletal: no cyanosis or clubbing, extremities motor strength 5/5 Skin: no rashes, warm and dry Neurologic: PERRL, EOMI, accommodation nl, no face palsy, no dysarthria Psychiatric: A+Ox3, euthymic affect Results & Data ([facility]) Vital Signs (Past 12 Hours) Vital Signs Temp Pulse Pulse Pulse Resp BP Pulse Ox 08/24/19 08:45 60 14 119/74 95 08/24/19 08:30 65 14 126/95 98 08/24/19 07:36 72 16 150/103 H 99 08/24/19 04:00 36.4 C L 75 18 121/84 97 08/24/19 00:00 93 H (1) Chest pain Chest pain type: unspecified Qualified Code(s): R07.9 - Chest pain, unspecified
--- NOTE | 2019-08-24 12:17 | Electrocardiogram Report ---
Test Reason : Blood Pressure : / mmHG Vent. Rate : 106 BPM Atrial Rate : 312 BPM P-R Int : 000 ms QRS Dur : 068 ms QT Int : 362 ms P-R-T Axes : 000 075 071 degrees QTc Int : 480 ms Atrial fibrillation with rapid ventricular response Low voltage QRS Nonspecific ST abnormality Abnormal ECG When compared with ECG of 21-AUG-2019 06:14, No significant change was found Confirmed by Dashawn Cortez ([id number]) on 08/24/2019 12:17:11 PM Referred By: Adam Magallanes Confirmed By:Dashawn Cortez
--- NOTE | 2019-08-24 12:35 | Electrocardiogram Report ---
Test Reason : Blood Pressure : / mmHG Vent. Rate : 078 BPM Atrial Rate : 067 BPM P-R Int : 000 ms QRS Dur : 072 ms QT Int : 420 ms P-R-T Axes : 000 021 074 degrees QTc Int : 478 ms Atrial fibrillation Low voltage QRS Abnormal ECG When compared with ECG of 22-AUG-2019 06:59, (unconfirmed) No significant change was found Confirmed by Dashawn Cortez ([id number]) on 08/24/2019 12:34:57 PM Referred By: Adam Magallanes Confirmed By:Dashawn Cortez
--- NOTE | 2019-08-24 16:43 | Electrocardiogram Report ---
Test Reason : Blood Pressure : / mmHG Vent. Rate : 065 BPM Atrial Rate : 065 BPM P-R Int : 196 ms QRS Dur : 070 ms QT Int : 462 ms P-R-T Axes : 070 017 075 degrees QTc Int : 480 ms Normal sinus rhythm with sinus arrhythmia Low voltage QRS Borderline ECG When compared with ECG of 22-AUG-2019 11:03, Sinus rhythm has replaced Atrial fibrillation Confirmed by Dashawn Cortez ([id number]) on 08/24/2019 4:43:00 PM Referred By: Adam Magallanes Confirmed By:Dashawn Cortez
[2019-08-24] MEDS: ACETAMINOPHEN 325 MG TAB PO PRN ×2 (19:14→23:39)
--- NOTE | 2019-08-25 08:03 | Anesthesiology Progress Note ---
Date of Service August 25, 2019 Anesthesia Post Procedure Vital Signs Vital Signs: Temp Pulse Pulse Pulse Resp BP BP 08/25/19 07:21 64 08/25/19 07:18 36.5 C 71 20 104/67 08/25/19 03:50 36.6 C 58 L 16 104/72 08/24/19 23:23 63 08/24/19 23:07 36.3 C L 62 18 122/78 08/24/19 18:37 36.4 C L 94 H 19 120/81 08/24/19 15:29 36.8 C 63 20 97/61 L 08/24/19 11:11 36.7 C 61 19 111/72 08/24/19 08:45 60 14 119/74 08/24/19 08:30 65 14 126/95 Pulse Ox 08/25/19 07:21 08/25/19 07:18 92 08/25/19 03:50 96 08/24/19 23:23 08/24/19 23:07 96 08/24/19 18:37 95 08/24/19 15:29 95 08/24/19 11:11 96 08/24/19 08:45 95 08/24/19 08:30 98 Notes Mental Status: alert / awake / arousable and participated in evaluation Nausea / Vomiting: adequately controlled Pain: adequately controlled Airway Patency, RR, SpO2: stable & adequate BP & HR: stable & adequate Hydration State: stable & adequate
[2019-08-25] MEDS: INSULIN ASPART 100 UNITS/ML 3 ML PEN SC SCH ×2 (08:46→11:58)
[2019-08-25] MEDS: APIXABAN 2.5 MG TAB PO SCH (08:47)
[2019-08-25] MEDS: ISOSORBIDE MONO EXTENDED REL 30 MG TABCR PO SCH (08:47)
[2019-08-25] MEDS: ATORVASTATIN 40 MG TAB PO SCH (08:48)
[2019-08-25] MEDS: AMIODARONE 200 MG TAB PO SCH ×2 (08:48→11:57)
[2019-08-25] MEDS: lisinopriL 5 MG TAB PO SCH (08:48)
[2019-08-25] MEDS: MAGNESIUM OXIDE 400 MG TAB PO SCH (08:48)
[2019-08-25] MEDS: POTASSIUM CHLORIDE 10 MEQ TABCR PO SCH (08:48)
[2019-08-25] MEDS: PANTOprazole 40 MG TAB PO SCH (08:49)
[2019-08-25] MEDS: FLUOXETINE HCL 20 MG CAP PO SCH (08:49)
[2019-08-25] MEDS: FUROSEMIDE 40 MG TAB PO SCH (08:49)
[2019-08-25] MEDS: TIMOLOL GFS 0.25% OPH SOLN 74 DROPS/5 ML BTL OPB SCH (08:49)
--- NOTE | 2019-08-25 12:29 | Hospitalist Progress Note ---
Date of Service August 25, 2019 Assessment & Plan (1) Atrial fibrillation with RVR: presented with symptomatic afib rvr ( /CHOUDHARY and chest tightness x2 weeks. s/p TRISH cardioversion on 08/24/2019 Patient remains in normal sinus rhythm with rate controlled since cardioversion Cardiology consulted, appreciate input started on Eliquis Patient reports of improvement of energy, resolution of palpitation dizzy spell no dyspnea on exertion Had a good night sleep last night Patient will be discharged home with amiodarone 200 mg p.o. daily Outpatient follow-up with cardiology scheduled on 09/09/2019 with Neri Carrizales PA-C at [facility] cardiology suite (2) Chest pain: No further symptoms, On admission complaint of chest heaviness possible due to rapid afib Has completely resolved History of PTCA and balloon angioplasty in Follows [facility] cardiology-consult appreciated Continue ASA, statin, lisinopril, Imdur Recent echocardiogram on 08/17 revealed EF 55% without wall motion abnormality s/p successful TRISH cardioversion this admission (3) Hypomagnesemia: Corrected (4) CAD (coronary artery disease): History of PTCA and balloon angioplasty in Follows [facility] cardiology Continue ASA, statin, lisinopril, Imdur No evidence of acute cardiac ischemia Recent echocardiogram on 08/17 revealed EF 55% without wall motion abnormality (5) Diastolic CHF: hx of HFpEF -as per recent ECHO presents with vol overload possible due to rapid afib reports of increased lower ext swelling , orthopnea pro bnp 7176 cont PO lasix 40 mg daily continue lisinopril, metoprolol Stable volume status (6) DM type 2 (diabetes mellitus, type 2): Last A1c 6.2 on 03/09/2019 Admitting glucose 112 NovoLog sliding scale per protocol (7) HTN (hypertension): Blood pressure stable Continue lisinopril, Lasix, (8) Dyslipidemia: Continue statin (9) CKD stage 3 due to type 1 diabetes mellitus: Baseline creatinine 1.7 Monitor BMP (10) GERD (gastroesophageal reflux disease): Continue PPI (11) Chronic back pain: hx of sacroilitis on oxycodone apap 10mg q6hr prn-continued (12) DVT prophylaxis: eliquis Disposition: Plan to discharge home today Follow up: Hospital follow-up scheduled with family physician, and cardiology Admission and Anticipated Discharge Date Admission Date: August 20, 2019 Anticipated date of discharge: 08/25/19 Subjective Feels much better, able to have a good night sleep last night No complaint of shortness of breath dyspnea on exertion, Feelings of palpitation, dizzy spell has completely resolved Remains in sinus rhythm with rate controlled overnight Stable to be discharged home today Review of Systems Review of Systems: All systems reviewed & are unremarkable except as noted in HPI & below Respiratory: no cough, no dyspnea, no dyspnea on exertion, no sputum production and no wheezing Cardiovascular: no chest pain, no dyspnea at rest, no orthopnea, no palpitations, no lightheadedness and no syncope Neurologic: no dizziness and no syncope Physical Exam Constitutional: WD/WN, vitals as above no acute distress Eyes: PERRL, conjunctivae normal, anicteric sclerae ENMT: external ear and nose normal, oropharynx normal Neck: trachea midline, no thyromegaly Respiratory: normal respiratory effort, lungs clear to auscultation Cardiovascular: RRR, no murmur, no edema Gastrointestinal (Abdomen): normal bowel sounds, soft, nontender, no hepatosplenomegaly Musculoskeletal: no cyanosis or clubbing, extremities motor strength 5/5 Skin: no rashes, warm and dry Neurologic: PERRL, EOMI, accommodation nl, no face palsy, no dysarthria Psychiatric: A+Ox3, euthymic affect Results & Data ([facility]) Vital Signs (Past 12 Hours) Vital Signs Temp Pulse Pulse Resp BP BP Pulse Ox 08/25/19 11:31 36.6 C 58 L 18 113/74 96 08/25/19 07:24 36.3 C L 61 18 118/71 95 08/25/19 07:21 64 08/25/19 03:50 36.6 C 58 L 16 104/72 96 (1) Chest pain Chest pain type: unspecified Qualified Code(s): R07.9 - Chest pain, unspecified
--- NOTE | 2019-08-25 13:02 | Cardiology Progress Note ---
Date of Service August 25, 2019 Assessment & Plan (1) Diastolic CHF: (2) Atrial fibrillation with RVR: (3) CAD (coronary artery disease): The patient is maintaining sinus rhythm. She should return home on a reduced dose of amiodarone to 200 mg twice daily. Continue with the Eliquis. I will arrange follow-up as an outpatient. Subjective The patient has no complaints today. She wants to go home and I think that is appropriate. Review of Systems Review of Systems: All systems reviewed & are unremarkable except as noted in HPI & below Nothing additional to add. Physical Exam Physical Exam: General: no acute distress and stated age Head: normocephalic, no masses, lesions, tenderness or abnormalities Eyes: conjunctiva are pink and non-injected, sclera clear Neck: supple, no adenopathy, no bruits, normal jugular venous pulse, no hepatojugular reflux Chest: normal shape and normal respiratory effort Lungs: clear to auscultation and percussion Cardiac Exam: - regular rate & rhythm, no murmurs gallops or rubs - normal S1, normal S2 Pulses: 2(+) throughout Abdomen: abdomen soft, non-tender, no abnormal masses and no hepatosplenomegaly Musculoskeletal: no gait disturbance, no joint inflammation, no deforming arthritis Extremities: no edema and no cyanosis Neuro: grossly normal exam Results & Data Vital Signs (Past 12 Hours) Vital Signs Temp Pulse Pulse Resp BP BP Pulse Ox 08/25/19 11:31 36.6 C 58 L 18 113/74 96 08/25/19 07:24 36.3 C L 61 18 118/71 95 08/25/19 07:21 64 08/25/19 03:50 36.6 C 58 L 16 104/72 96 Laboratory Results Laboratory Results - last 24 hr 08/24/19 08/24/19 08/25/19 16:12 20:11 07:00 POC Glucose 121 H 108 H 129 H 08/25/19 11:03 POC Glucose 131 H Medications Administered Current Inpatient Medications Acetaminophen (Tylenol) 650 mg PO Q4H PRN PRN Reason: Pain or Fever Stop: 09/19/19 20:11 Last Admin: 08/24/19 23:39 Dose: 650 mg Documented by: Albuterol (Ventolin Hfa) 2 puffs INH QID PRN PRN Reason: sob/wheezing Stop: 09/19/19 20:11 Amiodarone HCl (Cordarone) 200 mg PO BIDM [facility] Stop: 09/24/19 16:59 Apixaban (Eliquis) 2.5 mg PO BID [facility] Stop: 09/23/19 08:59 Last Admin: 08/25/19 08:47 Dose: 2.5 mg Documented by: Aspirin (Ecotrin Ectab) 81 mg PO MoWeFr@0900 [facility] Stop: 09/20/19 08:59 Last Admin: 08/24/19 08:58 Dose: 81 mg Documented by: Atorvastatin Calcium (Lipitor) 40 mg PO DAILY [facility] Stop: 09/20/19 08:59 Last Admin: 08/25/19 08:48 Dose: 40 mg Documented by: Dextrose (Dextrose 50%) 25 - 50 ml IV UD PRN; Protocol PRN Reason: Hypoglycemia Protocol Stop: 09/19/19 20:11 Fluoxetine HCl (Prozac) 20 mg PO DAILY [facility] Stop: 09/20/19 08:59 Last Admin: 08/25/19 08:49 Dose: 20 mg Documented by: Furosemide (Lasix) 40 mg PO DAILY [facility] Stop: 09/20/19 08:59 Last Admin: 08/25/19 08:49 Dose: 40 mg Documented by: Glucagon (Glucagen) 1 mg SQ UD PRN; Protocol PRN Reason: Hypoglycemia Protocol Stop: 09/19/19 20:11 Glucose (Dex4 Glucose) 4 - 8 tabs PO UD PRN; Protocol PRN Reason: Hypoglycemia Protocol Stop: 09/19/19 20:11 Glucose (Glucose 40%) 15 - 30 gm PO UD PRN; Protocol PRN Reason: Hypoglycemia Protocol Stop: 09/19/19 20:11 Insulin Aspart (Novolog Flexpen) 0 units SC ACHS [facility] Stop: 09/19/19 20:59 Last Admin: 08/25/19 11:58 Dose: 1 units Documented by: Isosorbide Mononitrate (Imdur Extended Rel) 30 mg PO QAM [facility] Stop: 09/20/19 08:59 Last Admin: 08/25/19 08:47 Dose: 30 mg Documented by: Lisinopril (Zestril) 5 mg PO DAILY [facility] Stop: 09/20/19 08:59 Last Admin: 08/25/19 08:48 Dose: 5 mg Documented by: Magnesium Oxide (Mag-Ox) 400 mg PO DAILY [facility] Stop: 09/20/19 08:59 Last Admin: 08/25/19 08:48 Dose: 400 mg Documented by: Metoprolol Tartrate (Lopressor) 5 mg IV Q6 PRN PRN Reason: For Heartrate > 100 BPM Stop: 09/20/19 07:54 Last Admin: 08/21/19 12:00 Dose: 5 mg Documented by: Metoprolol Tartrate (Lopressor) 25 mg PO BID [facility] Stop: 09/20/19 20:59 Last Admin: 08/22/19 08:21 Dose: 25 mg Documented by: Miscellaneous (Carbohydrates For Hypoglycemia) 15 - 30 gm PO UD PRN PRN Reason: Hypoglycemia Protocol Stop: 09/19/19 20:11 Ondansetron HCl (Zofran) 4 mg IV Q6H PRN PRN Reason: Nausea Stop: 09/19/19 20:11 Oxycodone/Acetaminophen (Percocet 10/325mg) 1 tab PO Q6H PRN PRN Reason: Pain Stop: 09/03/19 20:11 Pantoprazole Sodium (Protonix) 40 mg PO QAM [facility] Stop: 09/20/19 08:59 Last Admin: 08/25/19 08:49 Dose: 40 mg Documented by: Polyethylene Glycol (Miralax Powder Packet) 17 gm PO DAILY PRN PRN Reason: Constipation Stop: 09/19/19 20:11 Last Admin: 08/21/19 20:30 Dose: 17 gm Documented by: Potassium Chloride (Klor-Con M10) 10 meq PO DAILY [facility] Stop: 09/20/19 08:59 Last Admin: 08/25/19 08:48 Dose: 10 meq Documented by: Timolol Maleate (Timoptic-Xe 0.25% Oph Soln) 1 drops OPB DAILY [facility] Stop: 09/20/19 08:59 Last Admin: 08/25/19 08:49 Dose: 1 drops Documented by:
--- NOTE | 2019-08-25 15:18 | Discharge Summary ---
Date of Service August 25, 2019 Admission HPI Per Admitting Provider This is an 84-year-old female who has significant PMH of CAD, HTN, HLD, T2DM, asthma, GERD, history of sacroiliitis, CKD stage III baseline creatinine 1.7, depression who presents to ED secondary to CHOUDHARY and chest tightness x2 weeks. Over the past 2 weeks she complains of feeling overall very fatigued, dyspnea on exertion, chest tightness, "like something sitting on my chest," and overall decreased appetite. Symptoms started after she took a 300 mile trip to [place] with her son and returned at 48 hours. After the trip she complained of increased lower extremity ankle and feet swelling. It then persisted into increasingly shortness of breath with exertion. "Even walking short distances makes me extremely short of breath and I have to take a break. "Associated with the shortness of breath is chest tightness and heaviness feeling like something is sitting on her chest. She does complain of heart palpitations. She denies any recent illness, fever, chills, sweats, lightheadedness, dizziness, cough, he moptysis, nausea, vomiting, abdominal pain, dysuria, increased urgency with urination, melena, hematochezia. She does have increased frequency with urination secondary to Lasix. She does elicit to having 2-3 episodes of diarrhea this morning. Of significance starting today she was told to increase her Lasix from 20 mg daily to 40 mg daily x3 days and then return back to 20 mg daily. Denies weight gain or loss. She was seen and evaluated by cardiology Yanna Pyle on 08/18/2019 in which she did complain of CHOUDHARY. An EKG was performed which revealed patient to be in atrial fibrillation with RVR. She was started on Eliquis 2.5 mg twice daily as well as metoprolol tartrate 25 mg twice daily and attempts to avoid hospitalization as patient was resistant. She also had a outpatient echocardiog jesús which revealed EF 55%, left atrium mildly enlarged, mild AV sclerosis, grade 1 diastolic dysfunction. TSH on 08/17 was 1.13. In ED she remains in atrial fibrillation with RVR. She is hemodynamically stable. ED provider discussed case with property management bookkeeper who recommended stopping Eliquis and starting IV heparin. Lab studies revealed WBC 7.63, H&H 12.4 39.9, platelet 279, BUN 27, creatinine 1.77, K3.7, glucose 112, proBNP 7176, troponin WNL. Chest x-ray revealed cardiomegaly but no acute cardiopulmonary abnormality. Principal Diagnosis Atrial fibrillation with RVR, Status post successful cardioversion with normal sinus heart rate and rhythm Discharge Exam Constitutional WD/WN, vitals as above no acute distress Eyes PERRL, conjunctivae normal, anicteric sclerae ENMT external ear and nose normal, oropharynx normal Neck trachea midline, no thyromegaly Respiratory normal respiratory effort, lungs clear to auscultation Cardiovascular RRR, no murmur, no edema Rate/Rhythm: + tachycardic; + abnormal rate Gastrointestinal (Abdomen) normal bowel sounds, soft, nontender, no hepatosplenomegaly Musculoskeletal no cyanosis or clubbing, extremities motor strength 5/5 Skin no rashes, warm and dry Neurologic PERRL, EOMI, accommodation nl, no face palsy, no dysarthria Psychiatric A+Ox3, euthymic affect Discharge Data Allergies Allergy/AdvReac Type Severity Reaction Status Date / Time metoclopramide Allergy Intermediate neuro Verified 08/20/19 18:50 complications adhesive Allergy Unknown ALLERGY TO Verified 09/26/11 10:30 TAPE naproxen [From Naprosyn] Allergy Unknown Verified 08/20/19 18:50 doxycycline AdvReac Mild n/v Verified 08/20/19 18:50 Consultations 08/20/19 17:53 ED Decision to Admit Stat 08/20/19 20:12 Consult Cardiology Routine 08/23/19 10:05 Consult Anesthesiology Routine 08/23/19 10:08 Consult Anesthesiology Routine Procedures Performed Operation Date: 08/24/19 07:30 Actual Procedures s Echo Color Flow - Oskar Elizabeth DO s Echo Doppler Complete - Oskar Elizabeth DO p Echo Transesophageal - DO curt Carcamo Cardioversion - Oskar Elizabeth DO Ordered Studies 08/20/19 19:25 US venous doppler [facility] Urgent Hospital Course (1) Atrial fibrillation with RVR: presented with symptomatic afib rvr ( /CHOUDHARY and chest tightness x2 weeks. s/p TRISH cardioversion on 08/24/2019 Patient remains in normal sinus rhythm with rate controlled since cardioversion Cardiology consulted, appreciate input started on Eliquis Patient reports of improvement of energy, resolution of palpitation dizzy spell no dyspnea on exertion Had a good night sleep last night Patient will be discharged home with amiodarone 200 mg p.o. daily Outpatient follow-up with cardiology scheduled on 09/09/2019 with Neri Carrizales PA-C at [facility] cardiology suite (2) Chest pain: No further symptoms, On admission complaint of chest heaviness possible due to rapid afib Has completely resolved History of PTCA and balloon angioplasty in Follows [facility] cardiology-consult appreciated Continue ASA, statin, lisinopril, Imdur Recent echocardiogram on 08/17 revealed EF 55% without wall motion abnormality s/p successful TRISH cardioversion this admission (3) Hypomagnesemia: Corrected (4) CAD (coronary artery disease): History of PTCA and balloon angioplasty in Follows [facility] cardiology Continue ASA, statin, lisinopril, Imdur No evidence of acute cardiac ischemia Recent echocardiogram on 08/17 revealed EF 55% without wall motion abnormality (5) Diastolic CHF: hx of HFpEF -as per recent ECHO presents with vol overload possible due to rapid afib reports of increased lower ext swelling , orthopnea pro bnp 7176 cont PO lasix 40 mg daily continue lisinopril, metoprolol Stable volume status (6) DM type 2 (diabetes mellitus, type 2): Last A1c 6.2 on 03/09/2019 Admitting glucose 112 NovoLog sliding scale per protocol (7) HTN (hypertension): Blood pressure stable Continue lisinopril, Lasix, (8) Dyslipidemia: Continue statin (9) CKD stage 3 due to type 1 diabetes mellitus: Baseline creatinine 1.7 Monitor BMP (10) GERD (gastroesophageal reflux disease): Continue PPI (11) Chronic back pain: hx of sacroilitis on oxycodone apap 10mg q6hr prn-continued (12) DVT prophylaxis: eliquis Disposition: Plan to discharge home today Follow up: Hospital follow-up scheduled with family physician, and cardiology Total Time Total Time Spent Total Time Spent (In Minutes): 35 minutes Total Time Includes: Examination of the Patient, Discharge Planning, Medication Reconciliation and Communication With Other Providers Discharge Plan Discharge Items Patient Disposition: Home - Self-Care Reason For Visit: AFIB RVR,CHEST PAIN,SHORTNESS OF BREATH Discharge Diagnosis: Atrial fibrillation with RVR, Status post successful cardioversion with normal sinus heart rate and rhythm Activity: Resume your previous activity Non-emergency contact: Primary Care Provider Call non-emergency contact if: you have any medication questions Follow-up/Referrals: Neri Carrizales [Physician Blood Bank Laboratory Professional] - 09/09/19 9:45 am (Please follow up at [facility] with LUIS MIGUEL Lenz on SaturdaySeptember 08 at 9:45 am. Please arrive 15 minutes early for your appointment. *If you are unable to keep this appointment, please call the office to re- schedule at [phone]. ) Steve Hooker MD [Primary Care Provider] - 08/28/19 1:15 pm (Hospital follow-up with Fe Perea PA-C on 08/28/2019 at 1:[address] Hooker is out of office till end of this month) Diet: Carb Consistent or DM2 and Heart Healthy Addtl Attending Provider Instructions: Cardiology follow-up as scheduled with Neri CALLAWAY on 09/09/2019 at [facility] cardiology suite at 9:45 AM Pending Studies at Discharge: No Stand-Alone Forms: My [facility] Vigme, Smoking Cessation Medications and DC Order Prescriptions: New amiodarone 200 mg Tablet 200 mg PO BIDM 30 Days Qty: 60 RF: 2 Continued atorvastatin 40 mg tablet 40 mg PO DAILY RF: 0 isosorbide mononitrate 30 mg tablet extended release 24 hr 30 mg PO QAM RF: 0 aspirin 81 mg Tablet,Delayed Release (Dr/Ec) 81 mg PO MOWEFR RF: 0 oxycodone-acetaminophen 10-325 mg tablet 1 tab PO Q6H PRN (Reason: Pain) RF: 0 omeprazole 20 mg capsule,delayed release(DR/EC) 20 mg PO QAM RF: 0 lisinopril 5 mg tablet 5 mg PO DAILY RF: 0 albuterol sulfate [Ventolin HFA] 90 mcg/actuation HFA aerosol inhaler 2 puff inhalation QID RF: 0 ondansetron 4 mg tablet,disintegrating 4 mg PO QID PRN (Reason: Nausea) RF: 0 fluoxetine 20 mg capsule 20 mg PO DAILY RF: 0 timolol maleate 0.25 % gel forming solution 1 drp OPB DAILY RF: 0 potassium chloride [Klor-Con M10] 10 mEq tablet,ER particles/crystals 10 meq PO DAILY RF: 0 metoprolol tartrate 25 mg tablet 25 mg PO BID RF: 0 Probiotic 3 billion cell Capsule 0 mmu cells PO DAILY RF: 0 docusate sodium 100 mg Capsule 100 mg PO BID RF: 0 furosemide 20 mg tablet 40 mg PO DAILY RF: 0 diclofenac sodium 1 % gel 4 g TOPICAL QID RF: 0 magnesium oxide 400 mg magnesium Tablet 400 mg PO DAILY RF: 0 Eliquis 2.5 mg tablet 2.5 mg PO BID 30 Days Qty: 60 RF: 0 Discharge Orders: Discharge Order (Routine); Ordered 08/25/19 Ordered By: Kaelyn Huddleston Admission Data Admit Date/Time: 08/20/19 18:17 Attending Provider: Kaelyn Huddleston Admit Provider: Mery Morris Primary Care Provider: Steve Hooker Other Providers: Mery Morris ; Alpesh Azul ; Chapo Marques Other Interventions: Discharge Summary Assessment (RN) Last Done: 08/25/19 14:17
[2019-08-25] MEDS ORDERED: AMIODARONE 200 MG TAB PO SCH (17:00)
== END 2019-08-25 15:30 | disposition home or self-care (01) | DRG 309 ==
LOC: ED 16:27 → SUATTDRO 18:17 → 2S 18:17

== ENCOUNTER 2019-11-13 12:03 | Inpatient (IN) ==
--- NOTE | 2019-11-13 12:30 | Emergency Department Note ---
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 On arrival to the emergency department the patient reports she has been short of breath for the past several days. The patient was recently admitted to [facility] over concerns of congestive heart failure as well as tachybradycardia syndrome. She denies any fevers or chills. Home Medications Home Medications Medication Instructions Recorded Confirmed Type Probiotic 3 mmu cells PO DAILY 08/20/19 11/13/19 History albuterol sulfate [Ventolin HFA] 2 puff INHALATION QID 08/20/19 11/13/19 History aspirin 81 mg PO MOWEFR 08/20/19 11/13/19 History atorvastatin 40 mg PO DAILY 08/20/19 11/13/19 History diclofenac sodium 4 g TOPICAL QID 08/20/19 11/13/19 History docusate sodium 100 mg PO BID 08/20/19 11/13/19 History fluoxetine 20 mg PO DAILY 08/20/19 11/13/19 History furosemide 40 mg PO DAILY 08/20/19 11/13/19 History isosorbide mononitrate 30 mg PO QAM 08/20/19 11/13/19 History lisinopril 5 mg PO DAILY 08/20/19 11/13/19 History magnesium oxide 400 mg PO DAILY 08/20/19 11/13/19 History metoprolol tartrate 12.5 mg PO BID 08/20/19 11/13/19 History omeprazole 20 mg PO QAM 08/20/19 11/13/19 History potassium chloride [Klor-Con M10] 10 meq PO DAILY 08/20/19 11/13/19 History timolol maleate 1 drp OPB DAILY 08/20/19 11/13/19 History Eliquis 2.5 mg PO BID 30 Days #60 tab 08/25/19 11/13/19 Rx amiodarone 200 mg PO BIDM 30 Days #60 tab 08/25/19 11/13/19 Rx oxycodone-acetaminophen 1 tab PO Q6H PRN 11/13/19 11/13/19 History Allergies Allergy/AdvReac Type Severity Reaction Status Date / Time metoclopramide Allergy Intermediate neuro Verified 11/13/19 12:56 complications adhesive Allergy Unknown ALLERGY TO Verified 11/13/19 12:56 TAPE naproxen [From Naprosyn] Allergy Unknown Verified 11/13/19 12:56 doxycycline AdvReac Mild n/v Verified 11/13/19 12:56 Past Med/Surg History Medical History CAD (coronary artery disease) (Chronic) "1996 - PTCA to RCA 2011 - cath that showed patent RCA and no further disease" Chronic back pain (Chronic) CKD stage 3 due to type 1 diabetes mellitus (Chronic) Diastolic CHF (Chronic) DM type 2 (diabetes mellitus, type 2) (Chronic) Dyslipidemia (Chronic) GERD (gastroesophageal reflux disease) (Chronic) History of nephrolithiasis Polymyalgia rheumatica (Chronic) Surgical History History of cystoscopy History of lithotripsy History of PTCA S/P appendectomy S/P cholecystectomy S/P hysterectomy Family History Aunt Breast cancer Mother Diabetes Coronary heart disease Father Silicosis Social History Preferred Language: Romanian Communication Ability: Unable Visual Impairment: Partially Limited Fire Control Technician B Required: No Beliefs That Will Affect Care: None marital status: / Current Living Situation: Alone Other Information That Helps Us Care for You: No Feels Safe at Home: Yes Safety Concerns: Feels Safe At This Time Smoking Status: Former smoker packs per day: 0.5 ; Do You Dip or Chew Tobacco: No ; Second Hand Exposure: No ; Tobacco Cessation Education Requested by Patient: No Hx Alcohol Use: No Hx Substance Use: No Review of Systems A total of 10 systems reviewed and were otherwise negative Physical Exam Vital Signs Vital Signs - 24 hr 11/13/19 12:03 11/13/19 12:05 11/13/19 12:09 Temperature 36.8 C Temperature Source Oral Pulse Rate 55 L 55 L 54 L Pulse Rate from SpO2 Sensor 52 L Pulse Rhythm Regular Regular Respiratory Rate 20 20 20 Respiratory Effort / Characteristics Spontaneous SOB on Exertion Respiratory Depth Normal Respiratory Pattern Regular Blood Pressure 107/62 107/62 Blood Pressure Mean 77 70 Pulse Oximetry 99 99 99 Oxygen Delivery Method Room Air Room Air Room Air Sepsis Recent Fever Within 48 Hours No Sepsis New/Unexplained Change in Mental Status No Sepsis Action Taken by Nursing No Action Required 11/13/19 13:02 Temperature Temperature Source Pulse Rate Pulse Rate from SpO2 Sensor 54 L Pulse Rhythm Respiratory Rate 14 Respiratory Effort / Characteristics Respiratory Depth Respiratory Pattern Blood Pressure 107/54 L Blood Pressure Mean 71 Pulse Oximetry 99 Oxygen Delivery Method Room Air Sepsis Recent Fever Within 48 Hours Sepsis New/Unexplained Change in Mental Status Sepsis Action Taken by Nursing VITAL SIGNS - Vital signs and nursing notes were reviewed. GENERAL - 84-year-old female appearing stated age who is in no acute distress. Communicates well with provider and answers questions appropriately. SKIN - Without rashes. HEAD - NC/AT. EYES - PERRL with EOMI bilaterally. Sclera anicteric. Palpebral conjunctiva pink and moist with no injection noted. EARS - No deformities of external structures noted on gross examination bilaterally. No pain elicited with palpation of the tragus bilaterally. External auditory canals without discharge or otorrhea. Tympanic membranes pearly logan without retraction or bulging. No fluid or purulent material visualized behind the TM. Handle of malleus, umbo, cone of light, pars tensa/flaccid all easily visualized. NOSE - Midline and without cyanosis. No epistaxis or purulent drainage noted. Septum midline without deviation or septal hematoma noted. MOUTH/OROPHARYNX - Without perioral cyanosis. Buccal mucosa pink and moist and without leukoplakia. Tongue midline with equal elevation of palate bilaterally. No tonsillar hypertrophy, erythema, or exudates noted. dentition noted. NECK - Neck with FROM. Supple to palpation. lymphadenopathy noted. No nuchal rigidity. LUNGS - Chest wall symmetric without accessory muscle use, intercostals retractions, or central cyanosis. Normal vesicular breath sounds CTA B/L. No wheezes, rales, or rhonchi appreciated. CARDIAC - RRR with S1/S2. No murmur, rubs, or gallops appreciated. ABDOMEN - Abdominal contour without pulsations or visible masses. BS normoactive all four quadrants. No tenderness, palpable masses, hepatosplenomegaly, or ascites noted. EXTREMITIES - No clubbing or peripheral cyanosis. No pretibial edema present. +3/5 radial, posterior tibial, and dorsalis pedis pulses palpated throughout. +5/5 strength noted in UE/LE bilaterally. NEUROLOGIC - Cranial nerves II through XII grossly intact. Sensory intact to light touch throughout. Patellar reflexes +2/4. PSYCH - A&Ox3 and cooperates fully with examiner. Pt is very pleasant and interacts well with examiner. Course Administered Medications Atorvastatin Calcium (Lipitor) 40 mg PO DAILY [facility] Stop: 12/14/19 08:59 Last Admin: 11/14/19 08:21 Dose: 40 mg Documented by: [id number] Bisacodyl (Dulcolax) 10 mg PO DAILY PRN PRN Reason: Constipation Stop: 12/13/19 21:13 Last Admin: 11/13/19 22:47 Dose: 10 mg Documented by: [id number] Docusate Sodium (Colace) 100 mg PO BID [facility] Stop: 12/13/19 20:59 Last Admin: 11/14/19 08:20 Dose: 100 mg Documented by: [id number] Admin: 11/13/19 22:08 Dose: Not Given Documented by: [id number] Fluoxetine HCl (Prozac) 20 mg PO DAILY [facility] Stop: 12/14/19 08:59 Last Admin: 11/14/19 08:21 Dose: 20 mg Documented by: [id number] Heparin Sodium/Dextrose (Heparin Sodium/Dextrose) 25,000 units in 500 mls @ 21 mls/hr IV .[id number] [facility]; Protocol Stop: 12/13/19 20:59 Last Titration: 11/14/19 11:24 Dose: 1,050 units/hr, 21 mls/hr Documented by: [id number] Cosigned by: [id number] Titration: 11/14/19 04:25 Dose: 1,100 units/hr, 22 mls/hr Documented by: [id number] Cosigned by: [id number] Titration: 11/13/19 23:14 Dose: 1,150 units/hr, 23 mls/hr Documented by: [id number] Cosigned by: [id number] Admin: 11/13/19 21:05 Dose: 1,150 units/hr, 23 mls/hr Documented by: [id number] Cosigned by: [id number] Insulin Aspart (Novolog Flexpen) 0 units SC ACHS [facility] Stop: 12/13/19 16:29 Last Admin: 11/14/19 11:47 Dose: Not Given Documented by: [id number] Admin: 11/14/19 07:58 Dose: Not Given Documented by: [id number] Cosigned by: [id number] Admin: 11/13/19 21:07 Dose: Not Given Documented by: [id number] Cosigned by: [id number] Admin: 11/13/19 17:22 Dose: Not Given Documented by: [id number] Cosigned by: [id number] Pantoprazole Sodium (Protonix) 40 mg PO QAM [facility] Stop: 12/14/19 08:59 Last Admin: 11/14/19 08:21 Dose: 40 mg Documented by: [id number] Timolol Maleate (Timoptic-Xe 0.25% Oph Soln) 1 drops OPB DAILY [facility] Stop: 12/14/19 08:59 Last Admin: 11/14/19 08:19 Dose: Not Given Documented by: [id number] Discontinued Medications Heparin Sodium/Dextrose () 1 ea IV Q30M [facility]OLA; Protocol Stop: 11/13/19 21:01 Last Admin: 11/13/19 21:07 Dose: 1 ea Documented by: [id number] Sodium Chloride (Nss) 500 mls @ 999 mls/hr IV .Q31M ONE Stop: 11/13/19 13:44 Last Infusion: 11/13/19 14:15 Dose: 0 mls/hr Documented by: [id number] Admin: 11/13/19 13:36 Dose: 999 mls/hr Documented by: [id number] Sodium Chloride (Nss 1000ml) 1,000 mls @ 80 mls/hr IV .[id number] [facility]OL[facility] Stop: 11/14/19 05:14 Last Infusion: 11/14/19 06:02 Dose: 0 mls/hr Documented by: [id number] Admin: 11/14/19 05:34 Dose: Not Given Documented by: [id number] Admin: 11/13/19 17:20 Dose: 80 mls/hr Documented by: [id number] Menthol (Nice) Confirm Administered Dose 24 paulino BUCCAL .STK-MED ONE Stop: 11/14/19 03:36 Last Admin: 11/14/19 04:25 Dose: 24 paulino Documented by: [id number] Medical Decision Making Differential Diagnosis Reactive airway disease, pneumonia, pneumothorax, COPD, CHF, infections, cardiac ischemia, pulmonary embolism, musculoskeletal, gastrointestinal, as well as other pathologies. Medical Records Attestation: I reviewed the patient's medical records. Home Medications Current Medication List: was personally reviewed by me Laboratory Data Attestation: I reviewed the patient's lab results. Result diagrams: 11/14/19 03:16 11/14/19 03:16 Lab Results 11/13/19 11/13/19 11/13/19 Range/Units 12:40 12:40 12:40 WBC 6.80 (4.8-10.8) K/uL RBC 4.16 L (4.2-5.4) M/uL Hgb 11.2 L (12.0-16.0) g/dL Hct 34.6 L (37-47) % MCV 83.2 (80-100) fL MCH 26.9 (25-34) pg MCHC 32.4 (32-36) g/dL RDW Std Deviation 53.1 H (36.4-46.3) fL RDW Coeff of Tab 17.5 H (11.5-14.5) % Plt Count 283 (130-400) K/uL MPV 10.3 (7.4-10.4) fL Immature Gran % (Auto) 0.1 % Neut % (Auto) 56.5 % Lymph % (Auto) 32.4 % [place] % (Auto) 7.4 % Eos % (Auto) 3.2 % Baso % (Auto) 0.4 % Immature Gran # (Auto) 0.01 (0.00-0.02) K/uL Neut # (Auto) 3.84 (1.4-6.5) K/uL Lymph # (Auto) 2.20 (1.2-3.4) K/uL [place] # (Auto) 0.50 (0.11-0.59) K/uL Eos # (Auto) 0.22 (0-0.5) K/uL Baso # (Auto) 0.03 (0-0.2) K/uL PT 11.8 (9.0-12.0) Seconds INR 1.1 (0.9-1.1) APTT 30.1 (21.0-31.0) Seconds PTT Ratio 1.1 Sodium 134 L (136-145) mmol/L Potassium 4.5 (3.5-5.1) mmol/L Chloride 104 (98-107) mmol/L Carbon Dioxide 24 (21-32) mmol/L Anion Gap 7.0 (3-11) BUN 38 H (7-18) mg/dl Creatinine 2.93 H (0.6-1.2) mg/dl Est Cr Clr Drug Dosing 15.5 ml/min Est GFR ( Amer) 16.6 Est GFR (Non-Af Amer) 14.3 BUN/Creatinine Ratio 13.0 (10-20) Glucose 106 H (70-99) mg/dl Calcium 9.4 (8.5-10.1) mg/dl Total Bilirubin 0.3 (0.2-1) mg/dl AST 28 (15-37) U/L ALT 59 (12-78) U/L Alkaline Phosphatase 126 H (45-117) U/L Total Creatine Kinase 32 (26-192) U/L CK-MB (CK-2) < 1.0 (0.5-3.6) ng/ml CK/CKMB % Calc TNP Troponin I < 0.015 (0-0.045) ng/ml Total Protein 6.7 (6.4-8.2) gm/dl Albumin 3.4 (3.4-5.0) gm/dl Globulin 3.3 (2.5-4.0) gm/dl Albumin/Globulin Ratio 1.0 (0.9-2) Lipase 123 (73-393) U/L Imaging Data Radiologist's Impression: [facility], [place] MIGUEL [phone] XRay Report Patient: BRUNO BAUTISTA Admit Date: 11/13/19 MR#: [id number] Address1: [address] [facility] Acct ID:[id number] Address2: Date: 1935 [facility] Zip: [place] [address] Age: 84 Location: ED Sex: F Room/Bed: Att Phy: Diagnosis: CHEST PAIN Dianna Phy: Steve Hooker III, MD Service Date: 11/13/19 Fam Phy: Interpreting Phy: Jean Myrick MD Admit Phy: Ordering Phy: Noel Sesay MD cc: ~ XR chest 1V portable HISTORY: Atypical Chest Pain COMPARISON: Chest 08/20/2019. FINDINGS: The heart remains top normal in size. No focal lung consolidations to suggest pneumonia. No evidence for pulmonary edema. No pleural effusions. No pneumothorax. Old, healed left-sided rib fractures. Small hiatus hernia is also noted. IMPRESSION: No significant change compared to the prior study. No acute process. ACT 112: Negative or not required by law. Electronically signed by: Jean Myrick M.D. 11/13/2019 12:30 PM Dictated: 11/13/19 1223 Transcribed: 11/13/19 1223 ECG Data Attestation: I personally reviewed and interpreted this ECG as follows: Indication: + bradycardia Rate (beats per minute): 53 ECG Intervals/blocks: + First degree AV block ECG ST segments: no ST depression and no ST elevation ECG Findings: + Q waves (Inferior) Comparison ECG Date: from (08/24/2019) Change: no significant change Prescription Drug Monitoring [place] Drug Monitoring [place] reviewed and no issues identified Blood Pressure Blood Pressure Findings: Low blood pressure MDM Narrative Patient was seen and evaluated as above in room C4. Review was performed of nursing notes and vital signs. I did review pertinent previous visits and patient history. After obtaining a thorough history and physical examination the above work up was performed. This is an 84-year-old female who presents to the emergency department comp laining of shortness of breath. There was concerned that the patient is in a third-degree heart block at her senior oracle adf developer office. Here in the emergency department she is in a first-degree heart block. She also has acute kidney injury. She was given a normal saline bolus here in the emergency department. I did discuss her case with both cardiology as well as the hospitalist service who did agree to admit the patient. Patient is in agreement with the treatment plan. An order was placed for continuous cardiac monitoring. The monitor shows a rate of 55 with Normal SInus rhythm. I attest that I have personally reviewed the patient medication list. The patient was evaluated during the global COVID-19 pandemic, and that diagnosis was suspected/considered upon their initial presentation. Their evaluation, treatment and testing was consistent with current guidelines for patients who present with complaints or symptoms that may be related to COVID- 19. Impression & Plan Tachy-amy syndrome, Polymyalgia rheumatica, Acute kidney injury superimposed on CKD Discharge Plan Visit Data *Final* Discharge Date/Time: 11/13/19 14:21 Chief Complaint: Shortness of Breath/Dyspnea ED Provider: Noel Sesay Discharge Problem: Tachy-amy syndrome, Polymyalgia rheumatica, Acute kidney injury superimposed on CKD Patient Disposition: Admitted As Inpatient Discharge Instructions Interventions: ED Discharge Assessment Last Done: 11/13/19 14:21
[2019-11-13 12:50] LABS: Basophils # (auto) 0.03 K/uL (0-0.2); Basophils % (auto) 0.4 %; Eosinophils # (auto) 0.22 K/uL (0-0.5); Eosinophils % (auto) 3.2 %; Hematocrit (blood only) 34.6 % (37-47); Hemoglobin 11.2 g/dL (12.0-16.0); Immature Granulocytes # (auto) 0.01 K/uL (0.00-0.02); Immature Granulocytes % (auto) 0.1 %; Lymphocytes % (auto) 32.4 %; Mean Corpuscular Hemoglobin 26.9 pg (25-34); Mean Corpuscular Hgb Conc 32.4 g/dL (32-36); Mean Corpuscular Volume 83.2 fL (80-100); Mean Platelet Volume 10.3 fL (7.4-10.4); Monocytes % (auto) 7.4 %; Neutrophils # (auto) 3.84 K/uL (1.4-6.5); Neutrophils % (auto) 56.5 %; Platelet Count 283 K/uL (130-400); RDW Coefficient of Variation 17.5 % (11.5-14.5); RDW Standard Deviation 53.1 fL (36.4-46.3); Red Blood Count 4.16 M/uL (4.2-5.4)
[2019-11-13 13:08] LABS: Alanine Aminotransferase 59 U/L (12-78); Albumin Level 3.4 gm/dl (3.4-5.0); Aspartate Aminotransferase 28 U/L (15-37); Blood Urea Nitrogen 38 mg/dl (7-18); Calcium 9.4 mg/dl (8.5-10.1); Carbon Dioxide 24 mmol/L (21-32); Chloride 104 mmol/L (98-107); Creatinine Clr Calc Pharmacy 15.5 ml/min; Est GFR (African American) 16.6; Est GFR (Non-African American) 14.3; Glucose 106 mg/dl (70-99); Lipase 123 U/L (73-393); Potassium 4.5 mmol/L (3.5-5.1); Sodium 134 mmol/L (136-145)
--- NOTE | 2019-11-13 13:09 | Cardiology Consultation ---
Date of Consultation November 13, 2019 Assessment & Plan (1) Tachy-amy syndrome: (2) Symptomatic bradycardia: The patient was admitted with symptomatic atrial fibrillation with rapid ventricular rate on 08/20/2019. At that time she was on metoprolol tartrate 25 mg twice daily, Eliquis 2.5 mg tw ice daily. She subsequently underwent direct-current cardioversion, and was discharged on low-dose metoprolol succinate 12.5 mg daily, amiodarone 200 mg twice daily. She has remained on uninterrupted Eliquis, and took her most recent dose this morning, 11/13/2019. Initial EKG performed at the office this morning is concerning for third-degree AV block with slow ventricular response, ventricular rate 45 bpm. She has since converted back to sinus bradycardia 55 bpm with first-degree AV block, [place] interval 222 ms. At this point, I think she likely has declared herself as having tachycardia-bradycardia syndrome. On physical exam, she is not volume overloaded. She does have mild ankle edema, but I think this is multifactorial and related to venous insufficiency, and the patient states that her edema is currently quite good compared to her typical baseline, she states that this is very minimal for her. At this time, I recommend admission to the [facility] service, PCU, with plans to hold her Eliquis, hold her metoprolol and hold her amiodarone for now. We will plan on initiating unfractioned heparin infusion without bolus tonight at 9 PM. I anticipate possible pacemaker early next week after the weekend. We will update her transthoracic echocardiogram. History of Present Illness History of Present Illness Rhea Quijano Jeanne is an 84 year old female seen in cardiology consultation in ED room C4 per the request of Dr Sesay for complaint of exertional fatigue and shortness of breath, with bradycardia. Rhea's primary county health officer is Dr. Magallanes of our practice. Her recent history dates back to August, when she was found to be in symptomatic atrial fibrillation with elevated ventricular rates, refractory to outpatient treatment. She eventually was hospitalized underwent transesophageal echocardiogram guided direct current cardioversion with successful conversion to sinus rhythm. In the meantime, she has been on metoprolol succinate 12.5 mg daily, and amiodarone 200 mg twice daily. At the time of her follow-up visit as an outpatient on 09/07/2019, EKG revealed sinus rhythm at 69 bpm with premature atrial complexes mild inferolateral repolarization changes. Compared to the prior tracing performed 08/18/2019, sinus rhythm has replaced atrial fibrillation and the ventricular rate had increased by 60 bpm. She had been directed to reduce her amiodarone to 200 mg daily. After the cardioversion she initially felt improved, however over the last 3 to 4 weeks, she has felt progressively worse with dizziness, activity intolerance, and exertional shortness of breath with activity such as climbing a flight of stairs. She states that if she tries to climb a flight of stairs she has to sit down and rest. She had been assessed by telemedicine appointment on 11/09 with recognition of her symptoms, and was therefore seen in person by Yanna Pyle PA-C of our practice earlier this morning. EKG on arrival to her appointment today revealed complete heart block at 45 bpm, with noted AV disassociation. Hypotension was also noted on presentation to the outpatient clinic with blood pressure of 80/54. She was transferred to the emergency department at [facility] via EMS. A 12-lead EKG was performed in route by EMS, and revealed that she had reverted back to sinus bradycardia. She was assessed by the undersigned upon arrival to the emergency department, and EKG performed at [facility] on 11/13/2019 at 12:11 PM revealed sinus bradycardia at 53 bpm with first-degree AV block, WY interval 222 ms. The previously noted inferior lateral repolarization changes had resolved. Her blood pressure is also improved to 107/62. During my assessment, she had no acute distress, with symptoms as outlined above, no resting symptoms. Problem List: 1. Coronary heart disease with prior intervention, balloon angioplasty of the right coronary artery in 1996 2. Repeat cardiac catheterization, December,, no progression of her coronary heart disease 3. Hypertension, hypertensive heart disease with chronic diastolic dysfunction diastolic heart failure 4. Chronic lower extremity edema 5. Dyslipidemia 6. Type 2 diabetes mellitus 7. Asthmatic lung disease 8. Polymyalgia rheumatica 9. Paroxysmal atrial fibrillation, status post TRISH guided direct current cardioversion, 08/24/2019, amiodarone initiation. Allergies Allergy/AdvReac Type Severity Reaction Status Date / Time metoclopramide Allergy Intermediate neuro Verified 11/13/19 12:56 complications adhesive Allergy Unknown ALLERGY TO Verified 11/13/19 12:56 TAPE naproxen [From Naprosyn] Allergy Unknown Verified 11/13/19 12:56 doxycycline AdvReac Mild n/v Verified 11/13/19 12:56 Home Medications Home Medications Medication Instructions Recorded Confirmed Type Probiotic 0 mmu cells PO DAILY 08/20/19 08/20/19 History albuterol sulfate [Ventolin HFA] 2 puff INHALATION QID 08/20/19 08/20/19 History aspirin 81 mg PO MOWEFR 08/20/19 08/20/19 History atorvastatin 40 mg PO DAILY 08/20/19 08/20/19 History diclofenac sodium 4 g TOPICAL QID 08/20/19 08/20/19 History docusate sodium 100 mg PO BID 08/20/19 08/20/19 History fluoxetine 20 mg PO DAILY 08/20/19 08/20/19 History furosemide 40 mg PO DAILY 08/20/19 08/20/19 History isosorbide mononitrate 30 mg PO QAM 08/20/19 08/20/19 History lisinopril 5 mg PO DAILY 08/20/19 08/20/19 History magnesium oxide 400 mg PO DAILY 08/20/19 08/20/19 History metoprolol tartrate 25 mg PO BID 08/20/19 08/20/19 History omeprazole 20 mg PO QAM 08/20/19 08/20/19 History potassium chloride [Klor-Con M10] 10 meq PO DAILY 08/20/19 08/20/19 History timolol maleate 1 drp OPB DAILY 08/20/19 08/20/19 History Eliquis 2.5 mg PO BID 30 Days #60 tab 08/25/19 Rx amiodarone 200 mg PO BIDM 30 Days #60 tab 08/25/19 Rx Patient History Medical History A-fib (Acute) CAD (coronary artery disease) (Chronic) "1996 - PTCA to RCA 2011 - cath that showed patent RCA and no further disease" Chest pain (Acute) Chronic back pain (Chronic) CKD stage 3 due to type 1 diabetes mellitus (Chronic) Diastolic CHF DM type 2 (diabetes mellitus, type 2) (Chronic) DVT prophylaxis Dyslipidemia (Chronic) GERD (gastroesophageal reflux disease) (Chronic) History of nephrolithiasis Sacroiliitis Surgical History History of cystoscopy History of lithotripsy History of PTCA S/P appendectomy (Chronic) S/P cholecystectomy (Chronic) S/P hysterectomy (Chronic) Family History Aunt Breast cancer Mother Diabetes Coronary heart disease Father Silicosis Social History Preferred Language: Bermudian Communication Ability: Effective Visual Impairment: Partially Limited Lathe Set Up Person Required: No Beliefs That Will Affect Care: None marital status: / Current Living Situation: Family Feels Safe at Home: Yes Smoking Status: Former smoker packs per day: 0.5 ; Hx Alcohol Use: No Hx Substance Use: No Review of Systems Review of Systems: All systems reviewed & are unremarkable except as noted in HPI & below Physical Exam Physical Exam: Temp Pulse Resp BP Pulse Ox 36.8 C 55 L 20 107/62 99 11/13/19 12:03 11/13/19 12:05 11/13/19 12:05 11/13/19 12:03 11/13/19 12:05 Constitutional: WD/WN, vitals as above Respiratory: normal respiratory effort, lungs clear to auscultation Cardiovascular: Rate/Rhythm: regular rhythm and + bradycardic Heart Sounds: no murmur Vessels: no JVD Extremities: + edema (1+ ankle edema, venous varicose veins noted) Gastrointestinal (Abdomen): normal bowel sounds, soft, nontender, no hepatosplenomegaly Neurologic: PERRL, EOMI, accommodation nl, no face palsy, no dysarthria Results & Data ([facility]) Vital Signs (Past 12 Hours) Vital Signs Temp Pulse Resp BP Pulse Ox 11/13/19 12:05 55 L 20 99 11/13/19 12:03 36.8 C 55 L 20 107/62 99 Laboratory Results CBC 11/13/19 Range/Units 12:40 WBC 6.80 (4.8-10.8) K/uL RBC 4.16 L (4.2-5.4) M/uL Hgb 11.2 L (12.0-16.0) g/dL Hct 34.6 L (37-47) % Plt Count 283 (130-400) K/uL Neut # (Auto) 3.84 (1.4-6.5) K/uL Lymph # (Auto) 2.20 (1.2-3.4) K/uL [place] # (Auto) 0.50 (0.11-0.59) K/uL Eos # (Auto) 0.22 (0-0.5) K/uL Baso # (Auto) 0.03 (0-0.2) K/uL Intake and Output 11/12/19 11/13/19 11/13/19 22:59 06:59 14:59 Other: Weight 90.3 kg Patient Weight 11/14/19 06:59 Weight 90.3 kg Diagnostic Findings Outpatient transthoracic echocardiogram performed 08/19/2019, Lisa Staton Atrial fibrillation with rapid ventricular response was present at the time of the study. Qualitative ejection fraction was normal, 55 to 59% Mild aortic valve sclerosis without stenosis was present. Mild tricuspid regurgitation was present. No evidence of pulmonary hypertension
[2019-11-13 13:13] LABS: Alkaline Phosphatase 126 U/L (45-117); Bilirubin,Total 0.3 mg/dl (0.2-1); Creatine Kinase 32 U/L (26-192); Creatine Kinase MB < 1.0 ng/ml (0.5-3.6); Globulin 3.3 gm/dl (2.5-4.0); INR 1.1 (0.9-1.1); Partial Thromboplastin Ratio 1.1; Partial Thromboplastin Time 30.1 Seconds (21.0-31.0); Prothrombin Time 11.8 Seconds (9.0-12.0); Total Protein 6.7 gm/dl (6.4-8.2); Troponin I < 0.015 ng/ml (0-0.045)
[2019-11-13] MEDS ORDERED: SODIUM CHLORIDE 0.9% 500 ML IV ONE (13:14)
--- NOTE | 2019-11-13 14:15 | History & Physical Report ---
Date of Service November 13, 2019 Assessment & Plan (1) Tachy-amy syndrome: (2) Symptomatic bradycardia: This is an 84yo F with a PMH of paroxysmal A fib on Eliquis, CAD, HTN, DM II, polymyalgia rheumatica and other medical problems listed below who presents from clinic after being found to have complete heart block. History of recent A fib with RVR, recently underwent OP cardioversion. Found to have complete heart block today in clinic Repeat EKG in [facility] with sinus bradycardia with first-degree AV block Evaluated by Dr. Sheppard in ED, planning on possible pacemaker placement early next week 2/2 tachycardia-bradycardia syndrome Admit to PCU, holding Eliquis and starting unfractionated heparin infusion without bolus tonight at 9 PM Holding metoprolol and amiodarone Pacers at bedside (3) Acute kidney injury superimposed on CKD: Cr elevated at 2.98 (was 1.76 during previous admission) In setting of poor fluid intake per patient, also with recent hypotension and bradycardia causing hypoperfusion of kidneys Hold lisinopril and Lasix. Gentle fluids in ED Monitor with daily BMP (4) CAD (coronary artery disease): H/o remote angioplasty. Repeat cardiac cath in 2011 showed stable disease No acute ST or T wave changes Continue aspirin, statin (5) DM type 2 (diabetes mellitus, type 2): Diet controlled BSG ACHS, SSI ordered (6) Diastolic CHF: Euvolemic. Holding lasix in setting of HARJEET, metoprolol in setting of heart block (7) Chronic back pain: H/o sacroiliitis. Continue home dose oxycodone DVT Ppx: IV heparin Code status: FULL PCP: Daniel Dispo: Admit to PCU. Discharge planning ordered. Patient seen in collaboration with Dr. Morris. Please see addendum. History of Present Illness Chief Complaint: bradycardia, sent from clinic Primary Care Provider: Steve Hooker MD This is an 84yo F with a PMH of paroxysmal A fib on Eliquis, CAD, HTN, DM II, polymyalgia rheumatica and other medical problems listed below who presents from clinic after being found to have complete heart block. Patient was hospitalized two months ago when she was found to be in symptomatic atrial fibrillation with RVR. Underwent outpatient cardioversion with some improvement but over the past month she has felt increasingly symptomatic with exertion. Endorses increased fatigue, lightheadedness, dizzy, intermittent chest pain and shortness of breath with exertional activities including just walking around her home. States that she is able to get up and use the restroom but then needs to rest before continuing on around her house. Feels completely asymptomatic at rest. At this morning's clinic visit, EKG on arrival revealed complete heart block at 45 bpm with associated hypotension with blood pressure 80/54. Was transferred to ED via EMS for further evaluation. EKG performed in [facility] ED showed sinus bradycardia at 53 bpm with first-degree AV block and improved blood pressure to 107/62. Was evaluated in the ED by Dr. Sheppard, who will repeat TTE and plan for pacemaker placement early next week. Will be admitted and monitored on telemetry closely until then. Upon my evaluation, patient was asymptomatic and resting comfortably. Denies any fever, chills, lightheadedness, headache, c ough, chest pain, shortness of breath, nausea, vomiting, abdominal pain, dysuria or diarrhea. Has chronic constipation with last bowel movement 2 days ago. Has been taking laxatives. Took all of her morning medications with the exception of Lasix and potassium. Allergies Allergy/AdvReac Type Severity Reaction Status Date / Time metoclopramide Allergy Intermediate neuro Verified 11/13/19 12:56 complications adhesive Allergy Unknown ALLERGY TO Verified 11/13/19 12:56 TAPE naproxen [From Naprosyn] Allergy Unknown Verified 11/13/19 12:56 doxycycline AdvReac Mild n/v Verified 11/13/19 12:56 Home Medications Home Medications Medication Instructions Recorded Confirmed Type Probiotic 3 mmu cells PO DAILY 08/20/19 11/13/19 History albuterol sulfate [Ventolin HFA] 2 puff INHALATION QID 08/20/19 11/13/19 History aspirin 81 mg PO MOWEFR 08/20/19 11/13/19 History atorvastatin 40 mg PO DAILY 08/20/19 11/13/19 History diclofenac sodium 4 g TOPICAL QID 08/20/19 11/13/19 History docusate sodium 100 mg PO BID 08/20/19 11/13/19 History fluoxetine 20 mg PO DAILY 08/20/19 11/13/19 History furosemide 40 mg PO DAILY 08/20/19 11/13/19 History isosorbide mononitrate 30 mg PO QAM 08/20/19 11/13/19 History lisinopril 5 mg PO DAILY 08/20/19 11/13/19 History magnesium oxide 400 mg PO DAILY 08/20/19 11/13/19 History metoprolol tartrate 12.5 mg PO BID 08/20/19 11/13/19 History omeprazole 20 mg PO QAM 08/20/19 11/13/19 History potassium chloride [Klor-Con M10] 10 meq PO DAILY 08/20/19 11/13/19 History timolol maleate 1 drp OPB DAILY 08/20/19 11/13/19 History Eliquis 2.5 mg PO BID 30 Days #60 tab 08/25/19 11/13/19 Rx amiodarone 200 mg PO BIDM 30 Days #60 tab 08/25/19 11/13/19 Rx oxycodone-acetaminophen 1 tab PO Q6H PRN 11/13/19 11/13/19 History Past Med/Surg History Medical History (Updated 11/13/19 @ 14:20 by Caroline Reis PA-C) CAD (coronary artery disease) (Chronic) "1996 - PTCA to RCA 2011 - cath that showed patent RCA and no further disease" Chronic back pain (Chronic) CKD stage 3 due to type 1 diabetes mellitus (Chronic) Diastolic CHF (Chronic) DM type 2 (diabetes mellitus, type 2) (Chronic) Dyslipidemia (Chronic) GERD (gastroesophageal reflux disease) (Chronic) History of nephrolithiasis Polymyalgia rheumatica (Chronic) Surgical History History of cystoscopy History of lithotripsy History of PTCA S/P appendectomy S/P cholecystectomy S/P hysterectomy Family History Aunt Breast cancer Mother Diabetes Coronary heart disease Father Silicosis Social History Preferred Language: [place] Citizen Communication Ability: Effective Visual Impairment: Partially Limited Kettle Loader Required: No Beliefs That Will Affect Care: None marital status: / Current Living Situation: Alone Other Information That Helps Us Care for You: No Feels Safe at Home: Yes Safety Concerns: Feels Safe At This Time Smoking Status: Former smoker packs per day: 0.5 ; Do You Dip or Chew Tobacco: No ; Second Hand Exposure: No ; Tobacco Cessation Education Requested by Patient: No Hx Alcohol Use: No Hx Substance Use: No Review of Systems Review of Systems: At least ten systems reviewed and negative except as noted in the HPI. Physical Exam Physical Exam: General Appearance: WD/WN, vitals as above, NAD, sitting up in bed, pleasant, conversing easily Head: normocephalic, atraumatic Eyes: normal inspection, PERRL, conjunctivae normal, anicteric sclerae ENT: external ear and nose normal, oropharynx normal Neck: trachea midline, no thyromegaly normal visual inspection Respiratory: normal respiratory effort, lungs clear to auscultation, no wheeze, rales, rhonchi. Normal insp/exp effort, no accessory muscle use Cardiovascular: bradycardic rate, regular rhythm, no murmur appreciated, normal peripheral pulses. Vessels: no JVD or carotid bruit Chest: normal inspection of chest Abdomen/GI: normal bowel sounds, soft, nontender, no hepatosplenomegaly Extremities/Musculoskeletal: no cyanosis or clubbing, extremities motor strength 5/5, BLE non-pitting edema Neurologic: PERRL, EOMI, accommodation nl, no face palsy, no dysarthria, CN's II-XI intact bilaterally and moves all extremities Psychiatric: A+Ox3, euthymic affect Skin: no rashes, normal color, warm/dry Results & Data Results & Data ([facility]) Vital Signs (Past 12 Hours) Vital Signs Temp Pulse Resp BP Pulse Ox 11/13/19 13:02 14 107/54 L 99 11/13/19 12:09 54 L 20 107/62 99 11/13/19 12:05 55 L 20 99 11/13/19 12:03 36.8 C 55 L 20 107/62 99 Laboratory Results Short CBC 11/13/19 Range/Units 12:40 WBC 6.80 (4.8-10.8) K/uL Hgb 11.2 L (12.0-16.0) g/dL Hct 34.6 L (37-47) % Plt Count 283 (130-400) K/uL BMP 11/13/19 12:40 Sodium 134 L Potassium 4.5 Chloride 104 Carbon Dioxide 24 BUN 38 H Creatinine 2.93 H Glucose 106 H Calcium 9.4 Cardiac Enzymes 11/13/19 Range/Units 12:40 Total Creatine Kinase 32 (26-192) U/L CK-MB (CK-2) < 1.0 (0.5-3.6) ng/ml Troponin I < 0.015 (0-0.045) ng/ml Liver Function 11/13/19 Range/Units 12:40 Total Bilirubin 0.3 (0.2-1) mg/dl AST 28 (15-37) U/L ALT 59 (12-78) U/L Alkaline Phosphatase 126 H (45-117) U/L Albumin 3.4 (3.4-5.0) gm/dl Diagnostic Findings IMPRESSION: No significant change compared to the prior study. No acute process. ECG Rhythm: sinus bradycardia Findings: + 1st degree AV block Code Status & VTE Plan VTE Prophylaxis Plan VTE Prophylaxis will be ordered: Yes Supervising Physician Co-Signing Physician Notes Attending addendum The patient was seen and examined in telemetry unit She came to ER with exertional fatigue and shortness of breath and noted to have significant bradyarrhythmia She denies any symptoms at rest On examination Lying in bed comfortably Hemodynamically stable Chestclear to auscultate bilaterally Heart [id number] Abdomenbenign, bowel sounds present Extremities -trace edema bilaterally SUPERVIS[employer]DEL [employer]KING-alert, awake and oriented x3 Admission labs, EKG and imaging studies reviewed She is a status post recent electrical cardioversion on 23 August for A. fib with RVR EKG showed sinus bradycardia with a rate of 53 and first-degree AV block, suggestive of tachybradycardia syndrome with heart rate of 89 We will give cautious amount of intravenous fluid for dehydration with renal impairment Cardiology consulted Agree with assessment and plan as outlined above by AMI Velasquez Dr
[2019-11-13] MEDS ORDERED: ACETAMINOPHEN 325 MG TAB PO PRN (14:48)
[2019-11-13] MEDS ORDERED: GLUCAGON FOR INJ 1 MG VIAL SQ PRN (14:56)
[2019-11-13] MEDS ORDERED: GLUCOSE 40% GEL 15 GM TUBE PO PRN (14:56)
[2019-11-13] MEDS ORDERED: CARBOHYDRATES FOR HYPOGLYCEMIA PO PRN (14:56)
[2019-11-13] MEDS ORDERED: GLUCOSE 10 TABS/TUBE PO PRN (14:56)
[2019-11-13] MEDS ORDERED: DEXTROSE 50% 50 ML SYRINGE IV PRN (14:56)
--- NOTE | 2019-11-13 16:50 | Communication Note ---
Date of Service: November 13, 2019 Pt remains in Sinus bradycardia in the 50's. Echo reveals normal LVEF. I have reduced the rate of the Normal saline IV fluids fro 125 ml/hr to 80 ml/hr x 1 liter. Can reassess volume status and renal function on 11/13.
--- NOTE | 2019-11-13 17:03 | Electrocardiogram Report ---
Test Reason : Blood Pressure : / mmHG Vent. Rate : 053 BPM Atrial Rate : 053 BPM P-R Int : 222 ms QRS Dur : 082 ms QT Int : 466 ms P-R-T Axes : 076 012 093 degrees QTc Int : 437 ms Sinus bradycardia with 1st degree A-V block Low voltage QRS Cannot rule out Inferior infarct , age undetermined Poor R wave progression, consider anterior WI vs. lead placement vs. LVH Abnormal ECG When compared with ECG of 24-AUG-2019 08:26, No significant change was found Confirmed by Huey Gibbs ([id number]) on 11/13/2019 5:02:37 PM Referred By: ED Confirmed By:Huey Gibbs
[2019-11-13] MEDS: SODIUM CHLORIDE 0.9% 1000ML 1,000 ML IV SCH (17:20)
[2019-11-13] MEDS: INSULIN ASPART 100 UNITS/ML 3 ML PEN SC SCH ×2 (17:22→21:07)
[2019-11-13] MEDS ORDERED: Heparin IV Standard *NO* Bolus IV SCH (21:00)
[2019-11-13] MEDS: HEPARIN SODIUM/DEXTROSE 25,000 UNITS/500 ML BAG IV SCH (21:05)
[2019-11-13] MEDS ORDERED: bisacodyL 5 MG TABEC PO PRN (21:14)
[2019-11-13] MEDS: DOCUSATE SODIUM 100 MG CAP PO SCH (22:08)
[2019-11-14 03:35] LABS: Hematocrit (blood only) 30.2 % (37-47); Hemoglobin 9.6 g/dL (12.0-16.0); Mean Corpuscular Hemoglobin 26.4 pg (25-34); Mean Corpuscular Hgb Conc 31.8 g/dL (32-36); Mean Corpuscular Volume 83.2 fL (80-100); Mean Platelet Volume 9.7 fL (7.4-10.4); Platelet Count 244 K/uL (130-400); RDW Coefficient of Variation 17.3 % (11.5-14.5); RDW Standard Deviation 53.2 fL (36.4-46.3); Red Blood Count 3.63 M/uL (4.2-5.4); White Blood Count 6.12 K/uL (4.8-10.8)
[2019-11-14] MEDS ORDERED: COUGH DROP (SUGAR FREE) LOZ 24 LOZ/1 BOX BUCCAL ONE (03:35)
[2019-11-14 03:55] LABS: Partial Thromboplastin Ratio 2.6
[2019-11-14 04:01] LABS: BUN Creatinine Ratio 12.5 (10-20); Calcium 8.5 mg/dl (8.5-10.1); Creatinine Clr Calc Pharmacy 18.6 ml/min; Est GFR (African American) 21.2; Est GFR (Non-African American) 18.3; Potassium 3.8 mmol/L (3.5-5.1)
[2019-11-14 04:16] LABS: Partial Thromboplastin Time 71.9 Seconds (21.0-31.0)
[2019-11-14] MEDS: SODIUM CHLORIDE 0.9% 1000ML 1,000 ML IV SCH (05:34)
[2019-11-14] MEDS: INSULIN ASPART 100 UNITS/ML 3 ML PEN SC SCH ×4 (07:58→21:09)
[2019-11-14] MEDS: TIMOLOL GFS 0.25% OPH SOLN 74 DROPS/5 ML BTL OPB SCH (08:19)
[2019-11-14] MEDS: DOCUSATE SODIUM 100 MG CAP PO SCH ×2 (08:20→20:30)
[2019-11-14] MEDS: PANTOprazole 40 MG TAB PO SCH (08:21)
[2019-11-14] MEDS: ATORVASTATIN 40 MG TAB PO SCH (08:21)
[2019-11-14] MEDS: FLUOXETINE HCL 20 MG CAP PO SCH (08:21)
[2019-11-14] MEDS ORDERED: POLYETHYLENE (MIRALAX) 17 GM PACK PO PRN (09:23)
[2019-11-14 11:20] LABS: Partial Thromboplastin Ratio 2.4
--- NOTE | 2019-11-14 11:36 | Cardiology Progress Note ---
Date of Service November 14, 2019 Assessment & Plan (1) Tachy-amy syndrome: (2) Symptomatic bradycardia: (3) Paroxysmal atrial fibrillation: The natural history and pathophysiology of atrial fibrillation and tachycardiabradycardia syndrome discussed. Recommend dual-chamber pacemaker insertion. Hold amiodarone and Eliquis at this time. Continue IV heparin bridging. Tentative plan for permanent pacemaker implantation Saturday11/16/19. Subjective Patient seen and examined at the bedside. Feeling well today. Reports significant lightheadedness, dizziness, and near syncope at home. Telemetry demonstrates sinus bradycardia since admission. No recurrent atrial fibrillation. Amiodarone on hold since admission. Eliquis discontinued in anticipation of pacemaker implantation. IV heparin infusing. Review of Systems Review of Systems: All systems reviewed & are unremarkable except as noted in HPI & below Physical Exam Constitutional: well developed, well nourished and + obese Respiratory: normal respiratory effort; no respiratory distress, no labored breathing and no retractions Cardiovascular: Rate/Rhythm: regular rate and + bradycardic Heart Sounds: normal S1 and normal S2 Vessels: no JVD and no carotid bruit Extremities: no edema Gastrointestinal (Abdomen): Inspection/Auscultation: abdomen normal to inspection and normal bowel sounds; abdomen not distended Percussion/Palpation: abdomen soft; abdomen nontender, no guarding and abdomen not rigid Skin: no rashes, warm and dry Neurologic: moves all extremities; no focal motor deficits Speech / Cognition: normal speech Motor/Sensory: no tremor Psychiatric: A+Ox3, euthymic affect Results & Data Vital Signs (Past 12 Hours) Vital Signs Temp Pulse Pulse Resp BP Pulse Ox 11/14/19 09:28 55 L 11/14/19 07:57 36.5 C 56 L 18 147/81 H 98 11/14/19 04:07 36.4 C L 54 L 18 119/75 98 11/13/19 23:58 36.5 C 54 L 18 119/75 98
--- NOTE | 2019-11-14 13:03 | Hospitalist Progress Note ---
Date of Service November 14, 2019 Assessment & Plan (1) Tachy-amy syndrome: Dizziness with lightheadedness and syncopal episode at home History of atrial fibrillation with RVR and subsequent DC cardioversion during recent admission to the hospital Was on amiodarone and small dose of beta-adolfo Noted to have bradyarrhythmias with associated symptoms as mentioned earlier Appreciate cardiology input and recommendation Likely to have PPM placement on Saturday (2) Symptomatic bradycardia: This is an 84yo F with a PMH of paroxysmal A fib on Eliquis, CAD, HTN, DM II, polymyalgia rheumatica and other medical problems listed below who presents from clinic after being found to have complete heart block. History of recent A fib with RVR, recently underwent OP cardioversion. Found to have complete heart block today in clinic Repeat EKG in [facility] with sinus bradycardia with first-degree AV block Evaluated by Dr. Sheppard in ED, planning on possible pacemaker placement early next week 2/2 tachycardia-bradycardia syndrome Admit to PCU, holding Eliquis and starting unfractionated heparin infusion without bolus tonight at 9 PM Holding metoprolol and amiodarone Pacers at bedside As above (3) Acute kidney injury superimposed on CKD: Cr elevated at 2.98 (was 1.76 during previous admission) In setting of poor fluid intake per patient, also with recent hypotension and bradycardia causing hypoperfusion of kidneys Hold lisinopril and Lasix. Gentle fluids in ED Monitor with daily BMP Creatinine is slightly improved at 2.39 Advised to drink more fluids We will continue intravenous fluid as minimum (4) CAD (coronary artery disease): H/o remote angioplasty. Repeat cardiac cath in 2011 showed stable disease No acute ST or T wave changes Continue aspirin, statin No acute cardiac symptoms (5) DM type 2 (diabetes mellitus, type 2): Diet controlled BSG ACHS, SSI ordered (6) Diastolic CHF: Euvolemic. Holding lasix in setting of HARJEET, metoprolol in setting of heart block No acute fluid overload (7) Chronic back pain: H/o sacroiliitis. Continue home dose oxycodone DVT Ppx: IV heparin for now Code status: FULL PCP: Daniel Dispo: Admit to PCU. Discharge planning ordered. Admission and Anticipated Discharge Date Admission Date: November 13, 2019 Subjective The patient was seen and examined in telemetry unit She was admitted with dizzy spells and shortness of breath while ambulating Noted to have tachybradycardia syndrome and was admitted for pacemaker placement Remains stable in the telemetry unit Monitor is showing sinus rhythm without any significant bradyarrhythmias Review of Systems Review of Systems: All systems reviewed and are unremarkable except as noted below Cardiovascular: no chest pain, no dyspnea on exertion and no palpitations Physical Exam Physical Exam: Lying in bed comfortably Constitutional: well developed, well nourished and + ill appearing; no acute distress Eyes: PERRL, conjunctivae normal, anicteric sclerae ENMT: external ear and nose normal, oropharynx normal Neck: trachea midline, no thyromegaly Respiratory: normal respiratory effort; no respiratory distress Auscult ation: lungs clear to auscultation bilaterally Cardiovascular: Rate/Rhythm: regular rate and regular rhythm Heart Sounds: no murmur Extremities: + edema (Trace edema bilaterally) Gastrointestinal (Abdomen): Inspection/Auscultation: abdomen normal to inspection and normal bowel sounds; abdomen not distended Percussion/Palpation: abdomen soft; abdomen nontender Musculoskeletal: Denies any acute arthritis in any joints Neurologic: moves all extremities; no focal motor deficits Generally weak but otherwise alert, awake and oriented x3 Lymphatic: no cervical or axillary lymphadenopathy Results & Data Results & Data ([facility]) Vital Signs (Past 12 Hours) Vital Signs Temp Pulse Pulse Resp BP Pulse Ox 11/14/19 11:51 36.7 C 72 18 120/80 93 11/14/19 09:28 55 L 11/14/19 07:57 36.5 C 56 L 18 147/81 H 98 11/14/19 04:07 36.4 C L 54 L 18 119/75 98 Laboratory Results Short CBC 11/14/19 Range/Units 03:16 WBC 6.12 (4.8-10.8) K/uL Hgb 9.6 L (12.0-16.0) g/dL Hct 30.2 L (37-47) % Plt Count 244 (130-400) K/uL BMP 11/13/19 11/14/19 12:40 03:16 Sodium 134 L 138 Potassium 4.5 3.8 D Chloride 104 109 H Carbon Dioxide 24 24 BUN 38 H 30 H Creatinine 2.93 H 2.39 H D Glucose 106 H 89 Calcium 9.4 8.5 Cardiac Enzymes 05/29/20 Range/Units 12:40 Total Creatine Kinase 32 (26-192) U/L CK-MB (CK-2) < 1.0 (0.5-3.6) ng/ml Troponin I < 0.015 (0-0.045) ng/ml Liver Function 11/13/19 Range/Units 12:40 Total Bilirubin 0.3 (0.2-1) mg/dl AST 28 (15-37) U/L ALT 59 (12-78) U/L Alkaline Phosphatase 126 H (45-117) U/L Albumin 3.4 (3.4-5.0) gm/dl Medications Administered Current Inpatient Medications Acetaminophen (Tylenol) 650 mg PO Q4H PRN PRN Reason: Pain or Fever Stop: 12/13/19 14:47 Atorvastatin Calcium (Lipitor) 40 mg PO DAILY [facility] Stop: 12/14/19 08:59 Last Admin: 11/14/19 08:21 Dose: 40 mg Documented by: Bisacodyl (Dulcolax) 10 mg PO DAILY PRN PRN Reason: Constipation Stop: 12/13/19 21:13 Last Admin: 11/13/19 22:47 Dose: 10 mg Documented by: Dextrose (Dextrose 50%) 25 - 50 ml IV UD PRN; Protocol PRN Reason: Hypoglycemia Protocol Stop: 12/13/19 14:55 Docusate Sodium (Colace) 100 mg PO BID [facility] Stop: 12/13/19 20:59 Last Admin: 11/14/19 08:20 Dose: 100 mg Documented by: Fluoxetine HCl (Prozac) 20 mg PO DAILY [facility] Stop: 12/14/19 08:59 Last Admin: 11/14/19 08:21 Dose: 20 mg Documented by: Glucagon (Glucagen) 1 mg SQ UD PRN; Protocol PRN Reason: Hypoglycemia Protocol Stop: 12/13/19 14:55 Glucose (Dex4 Glucose) 4 - 8 tabs PO UD PRN; Protocol PRN Reason: Hypoglycemia Protocol Stop: 12/13/19 14:55 Glucose (Glucose 40%) 15 - 30 gm PO UD PRN; Protocol PRN Reason: Hypoglycemia Protocol Stop: 12/13/19 14:55 Heparin Sodium/Dextrose (Heparin Sodium/Dextrose) 25,000 units in 500 mls @ 21 mls/hr IV .[id number] [facility]; Protocol Stop: 12/13/19 20:59 Last Titration: 11/14/19 11:24 Dose: 1,050 units/hr, 21 mls/hr Documented by: Insulin Aspart (Novolog Flexpen) 0 units SC ACHS [facility] Stop: 12/13/19 16:29 Last Admin: 11/14/19 11:47 Dose: Not Given Documented by: Lactobacillus Acidophilus (Floranex) 4 tab PO TIDM [facility] Stop: 12/14/19 16:59 Miscellaneous (Carbohydrates For Hypoglycemia) 15 - 30 gm PO UD PRN PRN Reason: Hypoglycemia Protocol Stop: 12/13/19 14:55 Oxycodone/Acetaminophen (Percocet 10/325mg) 1 tab PO Q6H PRN PRN Reason: Pain Stop: 11/27/19 14:53 Pantoprazole Sodium (Protonix) 40 mg PO QAM [facility] Stop: 12/14/19 08:59 Last Admin: 11/14/19 08:21 Dose: 40 mg Documented by: Polyethylene Glycol (Miralax Powder Packet) 17 gm PO DAILY PRN PRN Reason: Constipation Stop: 12/14/19 09:22 Timolol Maleate (Timoptic-Xe 0.25% Oph Soln) 1 drops OPB DAILY [facility] Stop: 12/14/19 08:59 Last Admin: 11/14/19 08:19 Dose: Not Given Documented by:
--- NOTE | 2019-11-14 14:23 | Cardiology Consultation ---
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 When she was in atrial fibrillation her heart rate was fast, she was having difficulty with chest discomfort due to her coronary artery disease and she was very short of breath. With control of her heart rate she still felt very poorly in atrial fibrillation. With conversion to sinus rhythm even on low doses of medications her heart rate was slow and she felt poorly. Now off of rate controlling medications (although there is some lingering effect of amiodarone) she still is bradycardic and still feels poorly with activities. I do not think we will be able to control her rhythm and her rate with medications alone. (2) Paroxysmal atrial fibrillation: She developed atrial fibrillation which required conversion, we do not know that she has had other episodes unless they were brief. Over the long run she should be on anticoagulation and will need medications for rate control as it is very likely she will go back into atrial fibrillation. Low doses of medications however cause sinus bradycardia. (3) Symptomatic bradycardia: She has symptomatic bradycardia with fatigue and difficulty with exertion and presented to the office on low-dose beta-blockade and amiodarone in a junctional rhythm. At this point I do not see a reasonable option other than pacemaker implantation. I think she has intact AV conduction therefore a standard dual-chamber system would be in order, and that would allow use of medications for control of her atrial arrhythmia. I have tentatively scheduled her for pacemaker implantation on the morning of November 16, 2019. (4) CAD (coronary artery disease): She has coronary artery disease and with rapid heart rate was having symptoms suggestive of ischemia. We need to make sure her heart rate is controlled. (5) CKD stage 3 due to type 1 diabetes mellitus: Her creatinine was somewhat elevated on admission this time, this may have been due to her bradycardia and hypoperfusion of her kidneys. Pacing may help with this as well History of Present Illness Reason for Consultation: Tachybradycardia syndrome Attending Physician: Mery Morris MD History of Present Illness This is an 84-year-old woman who has a history of diabetes mellitus, chronic kidney disease and coronary artery disease including angioplasty of her right coronary artery in 1996, repeat catheterization 2011 showed patent vessels. She presented with a feeling of an irregular heartbeat, dyspnea on exertion and just in general feeling poorly in early August 2019. She was found to have atrial fibrillation with a rapid heart rate and was started on Eliquis and metoprolol as an outpatient, echocardiography showed normal left ventricular function and no significant valvular abnormalities. She continued to feel poorly and was sent to the emergency room on August 20, 2019. There she was in atrial fibrillation with a heart rate averaging around 100 bpm on electrocardiography. She was started on oral amiodarone but developed bradycardia (during atrial fibrillation) including a 3-second pause. She therefore underwent cardioversion on August 24, 2019. She was discharged on August 25, 2019 metoprolol tartrate 25 mg twice a day for rate control and amiodarone 200 mg twice daily. She was sent to the emergency room on November 13, 2019 with symptomatic bradycardia that has continued. Her beta-blockade and her amiodarone have been discontinued on admission. Her Eliquis was stopped and she is now on heparin. At the time of my evaluation she was still feeling fatigued, she tells me that she has extremely low energy ever since the atrial fibrillation started in early August, having very little ability to even walk her normal distances and having some lightheadedness and dizziness and shortness of breath as well. She has not had any palpitations or feelings of irregular heart rate since her cardioversion. Allergies Allergy/AdvReac Type Severity Reaction Status Date / Time metoclopramide Allergy Intermediate neuro Verified 11/13/19 12:56 complications adhesive Allergy Unknown ALLERGY TO Verified 11/13/19 12:56 TAPE naproxen [From Naprosyn] Allergy Unknown Verified 11/13/19 12:56 doxycycline AdvReac Mild n/v Verified 11/13/19 12:56 Home Medications Home Medications Medication Instructions Recorded Confirmed Type Probiotic 3 mmu cells PO DAILY 08/20/19 11/13/19 History albuterol sulfate [Ventolin HFA] 2 puff INHALATION QID 08/20/19 11/13/19 History aspirin 81 mg PO MOWEFR 08/20/19 11/13/19 History atorvastatin 40 mg PO DAILY 08/20/19 11/13/19 History diclofenac sodium 4 g TOPICAL QID 08/20/19 11/13/19 History docusate sodium 100 mg PO BID 08/20/19 11/13/19 History fluoxetine 20 mg PO DAILY 08/20/19 11/13/19 History furosemide 40 mg PO DAILY 08/20/19 11/13/19 History isosorbide mononitrate 30 mg PO QAM 08/20/19 11/13/19 History lisinopril 5 mg PO DAILY 08/20/19 11/13/19 History magnesium oxide 400 mg PO DAILY 08/20/19 11/13/19 History metoprolol tartrate 12.5 mg PO BID 08/20/19 11/13/19 History omeprazole 20 mg PO QAM 08/20/19 11/13/19 History potassium chloride [Klor-Con M10] 10 meq PO DAILY 08/20/19 11/13/19 History timolol maleate 1 drp OPB DAILY 08/20/19 11/13/19 History Eliquis 2.5 mg PO BID 30 Days #60 tab 08/25/19 11/13/19 Rx amiodarone 200 mg PO BIDM 30 Days #60 tab 08/25/19 11/13/19 Rx oxycodone-acetaminophen 1 tab PO Q6H PRN 11/13/19 11/13/19 History Patient History Medical History CAD (coronary artery disease) (Chronic) "1996 - PTCA to RCA 2011 - cath that showed patent RCA and no further disease" Chronic back pain (Chronic) CKD stage 3 due to type 1 diabetes mellitus (Chronic) Diastolic CHF (Chronic) DM type 2 (diabetes mellitus, type 2) (Chronic) Dyslipidemia (Chronic) GERD (gastroesophageal reflux disease) (Chronic) History of nephrolithiasis Polymyalgia rheumatica (Chronic) Surgical History History of cystoscopy History of lithotripsy History of PTCA S/P appendectomy S/P cholecystectomy S/P hysterectomy Family History Aunt Breast cancer Mother Diabetes Coronary heart disease Father Silicosis Social History Preferred Language: Kiswahili Communication Ability: Unable Visual Impairment: Partially Limited Assistant Director Of Nursing Required: No Beliefs That Will Affect Care: None marital status: / Current Living Situation: Alone Other Information That Helps Us Care for You: No Feels Safe at Home: Yes Safety Concerns: Feels Safe At This Time Smoking Status: Former smoker packs per day: 0.5 ; Do You Dip or Chew Tobacco: No ; Second Hand Exposure: No ; Tobacco Cessation Education Requested by Patient: No Hx Alcohol Use: No Hx Substance Use: No Physical Exam Physical Exam: Constitutional: Alert, cooperative and in no distress. HEENT: Unremarkable Neck: No jugular venous distention, carotid pulses are normal and equal bilaterally without bruits. Pulmonary: Clear to auscultation bilaterally. Cardiac: Regular slow rhythm with no murmur, gallop or rub. Abdomen: Soft, nontender with normal bowel sounds. Extremities: No edema. Distal pulses intact. Neurologic: No focal findings. Gait is steady. Skin: No rash, ecchymoses or petechiae. Results & Data ([facility]) Vital Signs (Past 12 Hours) Vital Signs Temp Pulse Pulse Resp BP Pulse Ox 11/14/19 11:51 36.7 C 72 18 120/80 93 11/14/19 09:28 55 L 11/14/19 07:57 36.5 C 56 L 18 147/81 H 98 11/14/19 04:07 36.4 C L 54 L 18 119/75 98 Laboratory Results Coagulation 11/14/19 11/14/19 Range/Units 03:16 10:26 APTT 71.9 H* 67.0 H* (21.0-31.0) Seconds CBC 11/14/19 Range/Units 03:16 WBC 6.12 (4.8-10.8) K/uL RBC 3.63 L (4.2-5.4) M/uL Hgb 9.6 L (12.0-16.0) g/dL Hct 30.2 L (37-47) % Plt Count 244 (130-400) K/uL Comprehensive Metabolic Panel 11/14/19 Range/Units 03:16 Sodium 138 (136-145) mmol/L Potassium 3.8 D (3.5-5.1) mmol/L Chloride 109 H (98-107) mmol/L Carbon Dioxide 24 (21-32) mmol/L BUN 30 H (7-18) mg/dl Creatinine 2.39 H D (0.6-1.2) mg/dl Glucose 89 (70-99) mg/dl Calcium 8.5 (8.5-10.1) mg/dl Intake and Output 11/13/19 11/14/19 11/14/19 22:59 06:59 14:59 Intake Total 1218.667 / 1718.667 153.633 / 153.633 Output Total 0 / 0 Balance 0 / 5795.272 3853.667 / 1718.667 153.633 / 153.633 Intake: IV 1168.667 / 1668.667 153.633 / 153.633 HEPARIN SODIUM/DEXTROSE 25,000 168.667 / 168.667 153.633 / 153.633 units In 500 ml @ 1,100 UNITS/ HR 22 mls/hr IV .[id number] [facility] Rx #:[id number] Nss 1000ML 1,000 ml @ 80 mls/hr 1000 / 1000 IV .[id number] [facility] Rx#:[id number] Oral 50 / 50 Output: Stool 0 / 0 Emesis 0 / 0 Other: # Unmeasured Voids 2 2 Weight 87.6 kg Diagnostic Findings Review of electrocardiograms includes August 20, 2019 when she presented in atrial fibrillation with a heart rate of 120 bpm. Subsequently she had cardioversion. September 07, 2019 her electrocardiogram shows sinus rhythm at 70 bpm. On presentation to the [facility] office on November 13, 2019 she was in a junctional rhythm with conducted PACs and an overall heart rate of 45 bpm. Here she has been in sinus bradycardia, 11/13/2019 she was in sinus bradycardia at 53 bpm, 11/14/2019 bradycardia at 58 bpm. Telemetry monitoring demonstrates sinus bradycardia typically in the 50s. No significant arrhythmias, no atrial fibrillation. PG Care Time/CCT Total # of Minutes Spent Total Time Spent with Patient: Total time spent is greater than 50% in coordination of care (as documented) at patient's floor/unit and/or counseling patient: Coding Level of Care Code 47969 Initial Inpt Care Lvl 3 Diagnoses Tachy-amy syndrome I49.5 Paroxysmal atrial fibrillation I48.0 Symptomatic bradycardia R00.1 CAD (coronary artery disease) I25.10 CKD stage 3 due to type 1 diabetes mellitus E10.22; N18.3
[2019-11-14] MEDS: LACTOBACILLUS ACIDOPHILUS (FLORANEX) TAB PO SCH (16:56)
[2019-11-14 18:33] LABS: Partial Thromboplastin Ratio 2.3
[2019-11-14 18:34] LABS: Partial Thromboplastin Time 63.7 Seconds (21.0-31.0)
[2019-11-14] MEDS: HEPARIN SODIUM/DEXTROSE 25,000 UNITS/500 ML BAG IV SCH (20:29)
--- NOTE | 2019-11-15 07:32 | Electrocardiogram Report ---
Test Reason : Blood Pressure : / mmHG Vent. Rate : 058 BPM Atrial Rate : 058 BPM P-R Int : 230 ms QRS Dur : 088 ms QT Int : 408 ms P-R-T Axes : 083 078 103 degrees QTc Int : 400 ms Sinus bradycardia with 1st degree A-V block Low voltage QRS Cannot rule out Anterior infarct (cited on or before 13-NOV-2019) Abnormal ECG When compared with ECG of 13-NOV-2019 12:11, Minimal criteria for Inferior infarct are no longer Present Confirmed by Dashawn Cortez ([id number]) on 11/15/2019 7:31:57 AM Referred By: REFERRED SELF Confirmed By:Dashawn Cortez
[2019-11-15 07:41] LABS: Hematocrit (blood only) 31.4 % (37-47); Hemoglobin 10.2 g/dL (12.0-16.0); Mean Corpuscular Hemoglobin 26.6 pg (25-34); Mean Corpuscular Hgb Conc 32.5 g/dL (32-36); Mean Corpuscular Volume 81.8 fL (80-100); Mean Platelet Volume 9.8 fL (7.4-10.4); Platelet Count 240 K/uL (130-400); RDW Coefficient of Variation 17.2 % (11.5-14.5); RDW Standard Deviation 51.6 fL (36.4-46.3); Red Blood Count 3.84 M/uL (4.2-5.4); White Blood Count 5.21 K/uL (4.8-10.8)
[2019-11-15 08:01] LABS: Partial Thromboplastin Ratio 2.6
[2019-11-15 08:04] LABS: Partial Thromboplastin Time 71.5 Seconds (21.0-31.0)
[2019-11-15 08:08] LABS: BUN Creatinine Ratio 13.1 (10-20); Calcium 9.2 mg/dl (8.5-10.1); Creatinine Clr Calc Pharmacy 27.8 ml/min; Est GFR (African American) 34.4; Est GFR (Non-African American) 29.7
[2019-11-15] MEDS: INSULIN ASPART 100 UNITS/ML 3 ML PEN SC SCH ×4 (08:09→20:17)
[2019-11-15] MEDS: ATORVASTATIN 40 MG TAB PO SCH (08:10)
[2019-11-15] MEDS: LACTOBACILLUS ACIDOPHILUS (FLORANEX) TAB PO SCH ×3 (08:10→16:32)
[2019-11-15] MEDS: DOCUSATE SODIUM 100 MG CAP PO SCH ×2 (08:10→20:16)
[2019-11-15] MEDS: PANTOprazole 40 MG TAB PO SCH (08:10)
[2019-11-15] MEDS: FLUOXETINE HCL 20 MG CAP PO SCH (08:10)
[2019-11-15] MEDS: TIMOLOL GFS 0.25% OPH SOLN 74 DROPS/5 ML BTL OPB SCH (08:11)
--- NOTE | 2019-11-15 08:27 | Cardiology Progress Note ---
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 When she was in atrial fibrillation her heart rate was fast, she was having difficulty with chest discomfort due to her coronary artery disease and she was very short of breath. With control of her heart rate she still felt very poorly in atrial fibrillation. With conversion to sinus rhythm even on low doses of medications her heart rate was slow and she felt poorly. Now off of rate controlling medications (although there is some lingering effect of amiodarone) she still is bradycardic and still feels poorly with activities. I do not think we will be able to control her rhythm and her rate with medications alone. (2) Paroxysmal atrial fibrillation: She developed atrial fibrillation which required conversion, we do not know that she has had other episodes unless they were brief. Over the long run she should be on anticoagulation and will need medications for rate control as it is very likely she will go back into atrial fibrillation. Low doses of medications however cause sinus bradycardia. (3) Symptomatic bradycardia: She has symptomatic bradycardia with fatigue and difficulty with exertion and presented to the office on low-dose beta-blockade and amiodarone in a junctional rhythm. At this point I do not see a reasonable option other than pacemaker implantation. I think she has intact AV conduction therefore a standard dual-chamber system would be in order, and that would allow use of medications for control of her atrial arrhythmia. I discussed the indications, procedure, risks and alternatives of pacemaker implantation with her and she understands and agrees to proceed. Consent obtained. I also discussed sedation with her and she is agreeable and signed consent. I have tentatively scheduled her for pacemaker implantation on the morning of November 16, 2019. I will discontinue her heparin this evening as she has remained in sinus rhythm so far. (4) CAD (coronary artery disease): She has coronary artery disease and with rapid heart rate was having symptoms suggestive of angina. We need to make sure her heart rate is controlled. (5) CKD stage 3 due to type 1 diabetes mellitus: Her creatinine was somewhat elevated over baseline on admission this time, this may have been due to her bradycardia and hypoperfusion of her kidneys. Pacing may help with this as well Admission and Anticipated Discharge Date Admission Date: November 13, 2019 Subjective She continues to feel tired and fatigued, she is on sotalol and her heart rate is in the 50s. Otherwise she has no cardiac complaints. Physical Exam Physical Exam: Constitutional: Alert, cooperative and in no distress. HEENT: Unremarkable Neck: No jugular venous distention, carotid pulses are normal and equal bilaterally without bruits. Pulmonary: Clear to auscultation bilaterally. Cardiac: Regular slow rhythm with no murmur, gallop or rub. Abdomen: Soft, nontender with normal bowel sounds. Extremities: No edema. Distal pulses intact. Neurologic: No focal findings. Gait is steady. Skin: No rash, ecchymoses or petechiae. Results & Data ([facility]) Vital Signs (Past 12 Hours) Vital Signs Temp Pulse Pulse Resp BP Pulse Ox 11/15/19 08:01 36.5 C 51 L 18 133/85 97 11/15/19 07:21 55 L 11/15/19 04:27 36.4 C L 53 L 18 120/78 97 11/15/19 00:13 36.5 C 58 L 18 126/81 97 Laboratory Results Coagulation 11/14/19 11/14/19 11/15/19 Range/Units 10:26 17:55 07:32 APTT 67.0 H* 63.7 H* 71.5 H* (21.0-31.0) Seconds CBC 11/15/19 Range/Units 07:32 WBC 5.21 (4.8-10.8) K/uL RBC 3.84 L (4.2-5.4) M/uL Hgb 10.2 L (12.0-16.0) g/dL Hct 31.4 L (37-47) % Plt Count 240 (130-400) K/uL Comprehensive Metabolic Panel 11/15/19 Range/Units 07:32 Sodium 139 (136-145) mmol/L Potassium 4.0 (3.5-5.1) mmol/L Chloride 108 H (98-107) mmol/L Carbon Dioxide 25 (21-32) mmol/L BUN 21 H (7-18) mg/dl Creatinine 1.60 H D (0.6-1.2) mg/dl Glucose 93 (70-99) mg/dl Calcium 9.2 (8.5-10.1) mg/dl Intake and Output 11/14/19 11/15/19 11/15/19 22:59 06:59 14:59 Intake Total 657.70 / 1491.483 270.15 / 1491.483 25.55 / 25.55 Balance 657.70 / 1486.483 270.15 / 1486.483 25.55 / 25.55 Intake: IV 177.70 / 551.483 220.15 / 551.483 25.55 / 25.55 HEPARIN SODIUM/DEXTROSE 25,000 177.70 / 551.483 220.15 / 551.483 25.55 / 25.55 units In 500 ml @ 1,050 UNITS/ HR 21 mls/hr IV .[id number] [facility] Rx #:[id number] Oral 480 / 940 50 / 940 Other: # Unmeasured Voids 2 Weight 87.3 kg Diagnostic Findings Telemetry: Sinus bradycardia predominantly in the 50s. No atrial fibrillation. PG Care Time/CCT Total # of Minutes Spent Total Time Spent with Patient: Total time spent is greater than 50% in coordination of care (as documented) at patient's floor/unit and/or counseling patient: Coding Level of Care Code 97126 Subseq Hosp Care Lvl 3 Diagnoses Tachy-amy syndrome I49.5 Paroxysmal atrial fibrillation I48.0 Symptomatic bradycardia R00.1 CAD (coronary artery disease) I25.10 CKD stage 3 due to type 1 diabetes mellitus E10.22; N18.3
[2019-11-15] MEDS: HEPARIN SODIUM/DEXTROSE 25,000 UNITS/500 ML BAG IV SCH (09:27)
--- NOTE | 2019-11-15 11:56 | Electrocardiogram Report ---
Test Reason : Blood Pressure : / mmHG Vent. Rate : 056 BPM Atrial Rate : 056 BPM P-R Int : 212 ms QRS Dur : 084 ms QT Int : 440 ms P-R-T Axes : 083 076 100 degrees QTc Int : 424 ms Sinus bradycardia with 1st degree A-V block Low voltage QRS Nonspecific T wave abnormality Abnormal ECG When compared with ECG of 14-NOV-2019 07:24, Minimal criteria for Anterior infarct are no longer Present Nonspecific T wave abnormality, improved in Lateral leads Confirmed by Dashawn Cortez ([id number]) on 11/15/2019 11:56:02 AM Referred By: REFERRED SELF Confirmed By:Dashawn Cortez
--- NOTE | 2019-11-15 12:02 | Cardiology Progress Note ---
Date of Service November 15, 2019 Assessment & Plan (1) Tachy-amy syndrome: (2) Symptomatic bradycardia: (3) Acute kidney injury superimposed on CKD: (4) Paroxysmal atrial fibrillation: Patient remains in sinus rhythm since admission. Creatinine trending downward today with IV hydration and bedrest. Metoprolol and amiodarone on hold since admission. Scheduled for dual-chamber pacemaker implantation in a.m. IV heparin discontinued. N.p.o. except medications after midnight. Subjective Patient seen and examined at the bedside. Sinus bradycardia on telemetry overnight. No symptoms at rest. IV heparin discontinued. Offers no co ncerns/complaints this time. Review of Systems Review of Systems: All systems reviewed & are unremarkable except as noted in HPI & below Physical Exam Constitutional: well developed, well nourished and + obese Respiratory: normal respiratory effort; no respiratory distress, no labored breathing and no retractions Cardiovascular: Rate/Rhythm: regular rate and + bradycardic Heart Sounds: normal S1 and normal S2 Vessels: no JVD and no carotid bruit Extremities: no edema Gastrointestinal (Abdomen): Inspection/Auscultation: abdomen normal to inspection and normal bowel sounds; abdomen not distended Percussion/Palpation: abdomen soft; abdomen nontender, no guarding and abdomen not rigid Skin: no rashes, warm and dry Neurologic: moves all extremities; no focal motor deficits Speech / Cognition: normal speech Motor/Sensory: no tremor Psychiatric: A+Ox3, euthymic affect Results & Data Vital Signs (Past 12 Hours) Vital Signs Temp Pulse Pulse Resp BP Pulse Ox 11/15/19 08:01 36.5 C 51 L 18 133/85 97 11/15/19 07:21 55 L 11/15/19 04:27 36.4 C L 53 L 18 120/78 97 11/15/19 00:13 36.5 C 58 L 18 126/81 97
--- NOTE | 2019-11-15 14:09 | Hospitalist Progress Note ---
Date of Service November 15, 2019 Assessment & Plan (1) Tachy-amy syndrome: Dizziness with lightheadedness and syncopal episode at home History of atrial fibrillation with RVR and subsequent DC cardioversion during recent admission to the hospital Was on amiodarone and small dose of beta-adolfo Noted to have bradyarrhythmias with associated symptoms as mentioned earlier Appreciate cardiology input and recommendation Will have permanent pacemaker placement tomorrow He will be n.p.o. after midnight (2) Symptomatic bradycardia: This is an 84yo F with a PMH of paroxysmal A fib on Eliquis, CAD, HTN, DM II, polymyalgia rheumatica and other medical problems listed below who presents from clinic after being found to have complete heart block. History of recent A fib with RVR, recently underwent OP cardioversion. Found to have complete heart block today in clinic Repeat EKG in [facility] with sinus bradycardia with first-degree AV block Evaluated by Dr. Sheppard in ED, planning on possible pacemaker placement early next week 2/2 tachycardia-bradycardia syndrome Admit to PCU, holding Eliquis and starting unfractionated heparin infusion without bolus tonight at 9 PM Holding metoprolol and amiodarone Pacers at bedside As above (3) Acute kidney injury superimposed on CKD: Cr elevated at 2.98 (was 1.76 during previous admission) In setting of poor fluid intake per patient, also with recent hypotension and bradycardia causing hypoperfusion of kidneys Hold lisinopril and Lasix. Gentle fluids in ED Monitor with daily BMP Creatinine is slightly improved at 2.39 Advised to drink more fluids We will continue intravenous fluid as minimum Kidney function has improved a lot (4) CAD (coronary artery disease): H/o remote angioplasty. Repeat cardiac cath in 2011 showed stable disease No acute ST or T wave changes Continue aspirin, statin No acute cardiac symptoms (5) DM type 2 (diabetes mellitus, type 2): Diet controlled BSG ACHS, SSI ordered (6) Diastolic CHF: Euvolemic. Holding lasix in setting of HARJEET, metoprolol in setting of heart block No acute fluid overload (7) Chronic back pain: H/o sacroiliitis. Continue home dose oxycodone DVT Ppx: IV heparin for now Code status: FULL PCP: Daniel Dispo: Admit to PCU. Discharge planning ordered. Likely to go home following insertion of pacemaker Admission and Anticipated Discharge Date Admission Date: November 13, 2019 Subjective The patient was seen and examined in telemetry unit She was admitted with dizzy spells and shortness of breath while ambulating Noted to have tachybradycardia syndrome and was admitted for pacemaker placement Remains stable in the telemetry unit Monitor is showing sinus rhythm without any significant bradyarrhythmias 11/15/2019 The patient was seen and examined in telemetry unit She remains stable at rest No significant arrhythmias noted on monitor and she denies any symptoms Review of Systems Review of Systems: All systems reviewed and are unremarkable except as noted below Cardiovascular: no chest pain, no dyspnea at rest and no palpitations Physical Exam Physical Exam: Lying in bed comfortably Constitutional: well developed, well nourished and + ill appearing; no acute distress Eyes: PERRL, conjunctivae normal, anicteric sclerae ENMT: external ear and nose normal, oropharynx normal Neck: trachea midline, no thyromegaly Respiratory: normal respiratory effort; no respiratory distress Auscultation: lungs clear to auscultation bilaterally Cardiovascular: Rate/Rhythm: regular rate and regular rhythm Heart Sounds: no murmur Extremities: + edema (Trace edema bilaterally) Gastrointestinal (Abdomen): Inspection/Auscultation: abdomen normal to inspection and normal bowel sounds; abdomen not distended Percussion/Pa lpation: abdomen soft; abdomen nontender Musculoskeletal: No acute arthritis involving any joints Neurologic: moves all extremities; no focal motor deficits Lymphatic: no cervical or axillary lymphadenopathy Results & Data Results & Data ([facility]) Vital Signs (Past 12 Hours) Vital Signs Temp Pulse Pulse Resp BP Pulse Ox 11/15/19 11:56 36.6 C 57 L 20 152/85 H 97 11/15/19 08:01 36.5 C 51 L 18 133/85 97 11/15/19 07:21 55 L 11/15/19 04:27 36.4 C L 53 L 18 120/78 97 Laboratory Results Short CBC 11/15/19 Range/Units 07:32 WBC 5.21 (4.8-10.8) K/uL Hgb 10.2 L (12.0-16.0) g/dL Hct 31.4 L (37-47) % Plt Count 240 (130-400) K/uL BMP 11/15/19 07:32 Sodium 139 Potassium 4.0 Chloride 108 H Carbon Dioxide 25 BUN 21 H Creatinine 1.60 H D Glucose 93 Calcium 9.2 Medications Administered Current Inpatient Medications Acetaminophen (Tylenol) 650 mg PO Q4H PRN PRN Reason: Pain or Fever Stop: 12/13/19 14:47 Atorvastatin Calcium (Lipitor) 40 mg PO DAILY HOLA Stop: 12/14/19 08:59 Last Admin: 11/15/19 08:10 Dose: 40 mg Documented by: Bisacodyl (Dulcolax) 10 mg PO DAILY PRN PRN Reason: Constipation Stop: 12/13/19 21:13 Last Admin: 11/13/19 22:47 Dose: 10 mg Documented by: Cefazolin Sodium (Ancef) 2,000 mg IV PREOP HOLA; Protocol Stop: 11/16/19 12:00 Dextrose (Dextrose 50%) 25 - 50 ml IV UD PRN; Protocol PRN Reason: Hypoglycemia Protocol Stop: 12/13/19 14:55 Docusate Sodium (Colace) 100 mg PO BID HOLA Stop: 12/13/19 20:59 Last Admin: 11/15/19 08:10 Dose: 100 mg Documented by: Fluoxetine HCl (Prozac) 20 mg PO DAILY HOLA Stop: 12/14/19 08:59 Last Admin: 11/15/19 08:10 Dose: 20 mg Documented by: Glucagon (Glucagen) 1 mg SQ UD PRN; Protocol PRN Reason: Hypoglycemia Protocol Stop: 12/13/19 14:55 Glucose (Dex4 Glucose) 4 - 8 tabs PO UD PRN; Protocol PRN Reason: Hypoglycemia Protocol Stop: 12/13/19 14:55 Glucose (Glucose 40%) 15 - 30 gm PO UD PRN; Protocol PRN Reason: Hypoglycemia Protocol Stop: 12/13/19 14:55 Lactated Ringer's (Lr) 1,000 mls @ 15 mls/hr IV .Q24H HOLA Stop: 11/19/19 02:39 Insulin Aspart (Novolog Flexpen) 0 units SC ACHS HOLA Stop: 12/13/19 16:29 Last Admin: 11/15/19 11:49 Dose: Not Given Documented by: Lactobacillus Acidophilus (Floranex) 4 tab PO TIDM HOLA Stop: 12/14/19 16:59 Last Admin: 11/15/19 11:48 Dose: 4 tab Documented by: Miscellaneous (Carbohydrates For Hypoglycemia) 15 - 30 gm PO UD PRN PRN Reason: Hypoglycemia Protocol Stop: 12/13/19 14:55 Oxycodone/Acetaminophen (Percocet 10/325mg) 1 tab PO Q6H PRN PRN Reason: Pain Stop: 11/27/19 14:53 Pantoprazole Sodium (Protonix) 40 mg PO QAM HOLA Stop: 12/14/19 08:59 Last Admin: 11/15/19 08:10 Dose: 40 mg Documented by: Polyethylene Glycol (Miralax Powder Packet) 17 gm PO DAILY PRN PRN Reason: Constipation Stop: 12/14/19 09:22 Timolol Maleate (Timoptic-Xe 0.25% Oph Soln) 1 drops OPB DAILY HOLA Stop: 12/14/19 08:59 Last Admin: 11/15/19 08:11 Dose: Not Given Documented by:
[2019-11-16] MEDS ORDERED: CEFAZOLIN 250 MG/ML 1 GM VIAL IV SCH (06:00)
[2019-11-16 07:26] LABS: Calcium 9.1 mg/dl (8.5-10.1); Creatinine Clr Calc Pharmacy 28.5 ml/min; Est GFR (African American) 35.5; Est GFR (Non-African American) 30.6; Potassium 4.2 mmol/L (3.5-5.1)
[2019-11-16] MEDS ORDERED: LACTATED RINGER'S 1,000 ML IV SCH (08:00)
[2019-11-16] MEDS: FLUOXETINE HCL 20 MG CAP PO SCH (08:10)
[2019-11-16] MEDS: ATORVASTATIN 40 MG TAB PO SCH (08:10)
[2019-11-16] MEDS: DOCUSATE SODIUM 100 MG CAP PO SCH ×2 (08:11→20:56)
[2019-11-16] MEDS: LACTOBACILLUS ACIDOPHILUS (FLORANEX) TAB PO SCH ×3 (08:11→16:56)
[2019-11-16] MEDS: PANTOprazole 40 MG TAB PO SCH (08:11)
[2019-11-16] MEDS: TIMOLOL GFS 0.25% OPH SOLN 74 DROPS/5 ML BTL OPB SCH (08:13)
[2019-11-16] MEDS: INSULIN ASPART 100 UNITS/ML 3 ML PEN SC SCH ×4 (09:30→20:57)
--- NOTE | 2019-11-16 09:42 | Cardiology Progress Note ---
Date of Service November 16, 2019 Assessment & Plan (1) Tachy-amy syndrome: She has classic symptomatic tachybradycardia syndrome. When she was in atrial fibrillation her heart rate was fast, she was having difficulty with chest discomfort due to her coronary artery disease and she was very short of breath. With control of her heart rate she still felt very poorly in atrial fibrillation. With conversion to sinus rhythm even on low doses of medications her heart rate was slow and she felt poorly. Now off of rate controlling medications (although there is some lingering effect of amiodarone) she still is bradycardic and still feels poorly with activities. I do not think we will be able to control her rhythm and her rate with medications alone. (2) Paroxysmal atrial fibrillation: She developed atrial fibrillation which required conversion, we do not know that she has had other episodes unless they were brief. Over the long run she should be on anticoagulation and will need medications for rate control as it is very likely she will go back into atrial fibrillation. Low doses of medications however cause sinus bradycardia. (3) Symptomatic bradycardia: She has symptomatic bradycardia with fatigue and difficulty with exertion and presented to the office on low-dose beta-blockade and amiodarone in a junctional rhythm. At this point I do not see a reasonable option other than pacemaker implantation. I think she has intact AV conduction therefore a standard dual-chamber system would be in order, and that would allow use of medications for control of her atrial arrhythmia. I discussed the procedure and sedation yesterday with her and obtained consent, she has no questions today and is agreeable to proceed. (4) CAD (coronary artery disease): She has coronary artery disease and with rapid heart rate was having symptoms suggestive of angina. We need to make sure her heart rate is controlled. (5) CKD stage 3 due to type 1 diabetes mellitus: Her creatinine was somewhat elevated over baseline on admission this time, this may have been due to her bradycardia and hypoperfusion of her kidneys. That has improved substantially. Pacing may maintain appropriate renal perfusion. Admission and Anticipated Discharge Date Admission Date: November 13, 2019 Subjective She continues to feel fatigue, no other complaints. Physical Exam Physical Exam: Constitutional: Alert, cooperative and in no distress. HEENT: Unremarkable Neck: No jugular venous distention, carotid pulses are normal and equal bilaterally without bruits. Pulmonary: Clear to auscultation bilaterally. Cardiac: Regular slow rhythm with no murmur, gallop or rub. Abdomen: Soft, nontender with normal bowel sounds. Extremities: No edema. Distal pulses intact. Neurologic: No focal findings. Gait is steady. Skin: No rash, ecchymoses or petechiae. Results & Data ([facility]) Vital Signs (Past 12 Hours) Vital Signs Temp Pulse Resp BP BP Pulse Ox 11/16/19 07:06 36.8 C 56 L 18 165/87 H 97 11/16/19 03:15 36.6 C 64 17 136/84 96 11/15/19 23:48 36.7 C 59 L 18 135/74 97 Laboratory Results Comprehensive Metabolic Panel 11/16/19 Range/Units 06:37 Sodium 141 (136-145) mmol/L Potassium 4.2 (3.5-5.1) mmol/L Chloride 110 H (98-107) mmol/L Carbon Dioxide 24 (21-32) mmol/L BUN 19 H (7-18) mg/dl Creatinine 1.56 H (0.6-1.2) mg/dl Glucose 100 H (70-99) mg/dl Calcium 9.1 (8.5-10.1) mg/dl Intake and Output 11/15/19 11/16/19 11/16/19 22:59 06:59 14:59 Other: Other Intake Source NPO Weight 87.1 kg Diagnostic Findings Telemetry: Sinus bradycardia predominantly, some sinus rhythm. No atrial fibrillation. PG Care Time/CCT Total # of Minutes Spent Total Time Spent with Patient: Total time spent is greater than 50% in coordination of care (as documented) at patient's floor/unit and/or counseling patient: Coding Level of Care Code 15925 Subseq Hosp Care Lvl 2 Diagnoses Tachy-amy syndrome I49.5 Paroxysmal atrial fibrillation I48.0 Symptomatic bradycardia R00.1 CAD (coronary artery disease) I25.10 CKD stage 3 due to type 1 diabetes mellitus E10.22; N18.3
[2019-11-16] MEDS ORDERED: BACITRACIN OINT 0.9 GM PKT ONE (09:55)
[2019-11-16] MEDS ORDERED: LIDOCAINE HCL 1% 20 ML VIAL ONE ×2 (09:55→10:51)
[2019-11-16] MEDS ORDERED: BACITRACIN INJ 50,000 UNIT VIAL ONE (09:55)
[2019-11-16] MEDS ORDERED: MIDAZOLAM HCL 5 MG/ML 1 ML VIAL ONE (10:07)
[2019-11-16] MEDS ORDERED: CEFAZOLIN 250 MG/ML 1 GM VIAL ONE (10:07)
[2019-11-16] MEDS ORDERED: fentaNYL citrate 100 MCG/2 ML VIAL ONE (10:07)
--- NOTE | 2019-11-16 10:18 | Pre Anesthesia Assessment ---
Date of Service November 16, 2019 Pre Sedation Assessment Vital Signs Temp Pulse Pulse Resp BP BP Pulse Ox 11/16/19 07:30 51 L 11/16/19 07:06 36.8 C 56 L 18 165/87 H 97 11/16/19 03:15 36.6 C 64 17 136/84 96 11/15/19 23:48 36.7 C 59 L 18 135/74 97 11/15/19 19:55 37.2 C 62 20 158/84 H 93 11/15/19 15:43 36.9 C 51 L 16 132/78 99 11/15/19 14:47 56 L 11/15/19 11:56 36.6 C 57 L 20 152/85 H 97 Cardiovascular RRR, no murmur, no edema Respiratory normal respiratory effort, lungs clear to auscultation Pre-Sedation Airway Assessment Smoking Status: Former smoker Short, Thick Neck: No Thyromental Distance: > or= 3.5 Finger Breadths Oral Cavity: + Dentures Mallampati Class: III ASA: ASA3 NPO Status Date of Last Intake of Fluids: 11/15/19 Date of Last Intake of Solid Food: 11/15/19 Procedure Planning Contraindications for Sedation: none Current Medications Reviewed: Yes Notes The planned sedation has been discussed with the patient. Informed Consent was obtained. I have identified the patient, determined the appropriateness of sedation and have assessed the patient immediately prior to the procedure. All medicine(s) and interventions are by my order.
[2019-11-16] MEDS ORDERED: ACETAMINOPHEN W/CODEINE #3 1 TAB PO PRN (11:49)
[2019-11-16] MEDS ORDERED: ACETAMINOPHEN 325 MG TAB PO PRN (11:49)
--- NOTE | 2019-11-16 11:49 | Electrophysiology Report ---
Date of Service November 16, 2019 Electrophysiology Procedure Electrophysiology Procedure Report Preoperative diagnosis: Sick sinus syndrome Postoperative diagnosis: Same Procedure: Dual-chamber pacemaker implantation Surgeon: Dashawn Cortez MD Estimated blood loss: 30 cc Complications: None Disposition: [employer] recovery Procedure details: After obtaining informed consent for the procedure, the patient was brought to the laboratory and prepped and draped in the standard sterile manner. The left prepectoral region was anesthetized with 1% lidocaine local anesthetic and left axillary venipuncture was performed by percutaneous technique and a guidewire placed through the left subclavian vein into the superior vena cava. The area was further infiltrated with 1% lidocaine local anesthetic and a 5 cm incision was made parallel to the left clavicle and 2 cm below it and carried down to the anterior pectoralis fascia. A pacemaker pocket was formed by blunt dissection anterior to the pectoralis fascia and a bacitracin-soaked sponge (50,000 units in 50 cc normal saline solution) was placed in the pocket. An 8 [employer] Medtronic lead introducer was placed over the guidewire into the left subclavian vein, the dilator and guidewire were removed and a bipolar active fixation steroid tipped ventricular lead was advanced through the introducer into the superior vena cava. A guidewire was placed through the introducer and the introducer was stripped from the lead and guidewire. Another 8 [employer] Medtronic lead introducer was placed over the guidewire into the left subclavian vein, the dilator and guidewire were removed and a bipolar active fixation steroid tipped atrial lead was advanced through the introducer into the superior vena cava. A guidewire was placed back through the introducer and the introducer was stripped from the lead and guidewire. Using a curved stylette the ventricular lead was advanced through the right ventricular outflow tract into the pulmonary artery and then using a straight stylette was positioned in the right ventricular apex. The screw was extended fixing the lead in position. Pacing and sensing thresholds were evaluated in bipolar configuration and are recorded on the implant data sheet. Using a curved stylette the atrial lead was positioned in the region of the atrial appendage and the screw extended fixing the lead in position. Pacing and sensing thresholds were evaluated in bipolar configuration and are recorded on the impl ant data sheet. Once the leads were in position they were attached to the anterior pectoralis fascia using 2 sutures of 2-0 silk around each lead collar. The bacitracin- soaked sponge was removed from the pocket, hemostasis was obtained, the pacemaker was attached to the leads and placed in the pocket with the leads coiled beneath it. The incision was closed with a running double subcutaneous closure of 3-0 Vicryl absorbable suture, followed by running subcuticular skin closure of 4-0 Vicryl absorbable suture. Bacitracin ointment was placed on the incision and a pressure dressing applied. [facility] Electrophysiology codes Indication for Procedure (1) Tachy-amy syndrome: Pacing Procedure 1: Pacin Insert/Replace Pacer A & V PG Moderate Sedation Codes Moderate Sedation Codes Procedure 1: Sedation/Anesthesia: 20303 Mod Sedation by the same physician;Init15 Min Child Age 5 & Up Procedure 2: Sedation/Anesthesia: 19677 Mod Sedation by the same physician; Ea [id number] Minutes
--- NOTE | 2019-11-16 12:08 | Post Anesthesia Assessment ---
Date of Service November 16, 2019 Post Sedation Assessment Vital Signs Temp Pulse Pulse Resp BP BP Pulse Ox 11/16/19 12:04 60 20 165/88 H 99 11/16/19 11:50 63 20 179/102 H 99 11/16/19 07:30 51 L 11/16/19 07:06 36.8 C 56 L 18 165/87 H 97 11/16/19 03:15 36.6 C 64 17 136/84 96 11/15/19 23:48 36.7 C 59 L 18 135/74 97 11/15/19 19:55 37.2 C 62 20 158/84 H 93 11/15/19 15:43 36.9 C 51 L 16 132/78 99 11/15/19 14:47 56 L Recovery Score Activity: Moves 4 extremities Respiration: Deep Breath/Cough Circulation: +/-20% PreAnes Value Consciousness: Fully Awake Oxygen Saturation: > 92% On Room Air Post Anesthesia Score: 10 Discharge Sedation Level of Care: Fast Track Phase II Post Sedation Plan On clinical assessment, the patient appears to have tolerated the sedation without complications. Patient is recovering as anticipated. Patient will continue to be monitored by nursing and may be discharged when sedation discharge criteria are met per below protocol. Upon Completions of procedure up to 15 minutes continue every 5 minute vital signs and the P.A.R. score; then discharge to a Phase I or Fast Track to Phase II per the following guidelines: * Discharge Patient to appropriate Phase II area if PAR is 8 or greater or return to pre- procedure baseline. The post - procedure orders will be as directed. * If PAR score is less than 8 or not return to pre-procedure baseline then patient will follow Phase I monitoring till PAR is reached for Phase II. The Phase I may be done in procedure room or may call to secure a Phase I area. * If naloxone or flumazenil are used for reversal, hold in Phase I for continued monitoring from when last reversal dose was given for a minimum of 60 minutes or longer pending the nurse and/or physician discretion of patient condition before discharge to Phase II. Please call the Sedation Physician to re-evaluate and complete post-note for discharge to Phase II area. Do NOT discharge from procedure sedation or Phase 1 until post- sedation evaluation note is complete by procedure /sedation MD Sedation Discharge Instructions to be given to the patient at discharge to home.
[2019-11-16] MEDS: METOPROLOL TARTRATE 25 MG TAB PO SCH ×2 (12:30→20:56)
--- NOTE | 2019-11-16 13:32 | Hospitalist Progress Note ---
Date of Service November 16, 2019 Assessment & Plan (1) Tachy-amy syndrome: Dizziness with lightheadedness and syncopal episode at home History of atrial fibrillation with RVR and subsequent DC cardioversion during recent admission to the hospital Was on amiodarone and small dose of beta-adolfo Noted to have bradyarrhythmias with associated symptoms as mentioned earlier Appreciate cardiology input and recommendation Will have permanent pacemaker placement tomorrow He will be n.p.o. after midnight Status post permanent pacemaker placement Complains some pain at surgery site Likely be discharged tomorrow (2) Symptomatic bradycardia: This is an 84yo F with a PMH of paroxysmal A fib on Eliquis, CAD, HTN, DM II, polymyalgia rheumatica and other medical problems listed below who presents from clinic after being found to have complete heart block. History of recent A fib with RVR, recently underwent OP cardioversion. Found to have complete heart block today in clinic Repeat EKG in [facility] with sinus bradycardia with first-degree AV block Evaluated by Dr. Sheppard in ED, planning on possible pacemaker placement early next week 2/2 tachycardia-bradycardia syndrome Admit to PCU, holding Eliquis and starting unfractionated heparin infusion wi thout bolus tonight at 9 PM Holding metoprolol and amiodarone Pacers at bedside Will get EKG-showed atrial paced rhythm (3) Acute kidney injury superimposed on CKD: Cr elevated at 2.98 (was 1.76 during previous admission) In setting of poor fluid intake per patient, also with recent hypotension and bradycardia causing hypoperfusion of kidneys Hold lisinopril and Lasix. Gentle fluids in ED Monitor with daily BMP Creatinine is slightly improved at 2.39 Advised to drink more fluids We will continue intravenous fluid as minimum Kidney function has improved a lot Kidney function is at her baseline (4) CAD (coronary artery disease): H/o remote angioplasty. Repeat cardiac cath in 2011 showed stable disease No acute ST or T wave changes Continue aspirin, statin No acute cardiac symptoms (5) DM type 2 (diabetes mellitus, type 2): Diet controlled BSG ACHS, SSI ordered (6) Diastolic CHF: Euvolemic. Holding lasix in setting of HARJEET, metoprolol in setting of heart block No acute fluid overload (7) Chronic back pain: H/o sacroiliitis. Continue home dose oxycodone DVT Ppx: IV heparin for now Code status: FULL PCP: Daniel Dispo: Admit to PCU. Discharge planning ordered. Discharge home tomorrow Admission and Anticipated Discharge Date Admission Date: November 13, 2019 Subjective The patient was seen and examined in telemetry unit She was admitted with dizzy spells and shortness of breath while ambulating Noted to have tachybradycardia syndrome and was admitted for pacemaker placement Remains stable in the telemetry unit Monitor is showing sinus rhythm without any significant bradyarrhythmias 11/15/2019 The patient was seen and examined in telemetry unit She remains stable at rest No significant arrhythmias noted on monitor and she denies any symptoms 11/16/2019 The patient was seen and examined in telemetry unit She is a status post permanent pacemaker placement Complains to have some pain at the insertion site but otherwise denies any other symptoms Review of Systems Review of Systems: All systems reviewed and are unremarkable except as noted below Cardiovascular: + chest pain (At the operation site for PPM ) Physical Exam Physical Exam: Lying in a bed without any acute symptoms Constitutional: well developed, well nourished and + ill appearing; no acute distress Eyes: PERRL, conjunctivae normal, anicteric sclerae ENMT: external ear and nose normal, oropharynx normal Neck: trachea midline, no thyromegaly Respiratory: normal respiratory effort; no respiratory distress Auscu ltation: lungs clear to auscultation bilaterally and + diminished lung sounds (At the bases) Cardiovascular: Rate/Rhythm: regular rate and regular rhythm Heart Sounds: no murmur Extremities: + edema (Trace edema bilaterally) Status post permanent pacemaker placement left anterior upper chest wall Gastrointestinal (Abdomen): Inspection/Auscultation: abdomen normal to inspection and normal bowel sounds; abdomen not distended Percussion/Palpation: abdomen soft; abdomen nontender Musculoskeletal: Denies any acute arthritis involving any joints Neurologic: moves all extremities; no focal motor deficits Alert, awake and oriented x3 Lymphatic: no cervical or axillary lymphadenopathy Results & Data Results & Data ([facility]) Vital Signs (Past 12 Hours) Vital Signs Temp Pulse Pulse Resp BP BP Pulse Ox 11/16/19 13:05 62 16 137/74 98 11/16/19 12:35 55 L 16 149/81 H 96 11/16/19 12:20 71 14 170/99 H 94 11/16/19 12:17 36.6 C 71 14 170/99 H 94 11/16/19 12:04 60 20 165/88 H 99 11/16/19 11:50 63 20 179/102 H 99 11/16/19 07:30 51 L 11/16/19 07:06 36.8 C 56 L 18 165/87 H 97 11/16/19 03:15 36.6 C 64 17 136/84 96 Laboratory Results BMP 11/16/19 06:37 Sodium 141 Potassium 4.2 Chloride 110 H Carbon Dioxide 24 BUN 19 H Creatinine 1.56 H Glucose 100 H Calcium 9.1 Medications Administered Current Inpatient Medications Acetaminophen (Tylenol) 650 mg PO Q4H PRN PRN Reason: Pain or Fever Stop: 12/13/19 14:47 Acetaminophen (Tylenol) 650 mg PO Q4H PRN PRN Reason: Mild pain (rating 1,2,3) Stop: 12/16/19 11:48 Acetaminophen/Codeine Phosphate (Tylenol W/Codeine #3) 1 - 2 tab PO Q4H PRN PRN Reason: Moderate-Severe Pain Stop: 12/16/19 11:48 Atorvastatin Calcium (Lipitor) 40 mg PO DAILY [facility] Stop: 12/14/19 08:59 Last Admin: 11/16/19 08:10 Dose: 40 mg Documented by: Bisacodyl (Dulcolax) 10 mg PO DAILY PRN PRN Reason: Constipation Stop: 12/13/19 21:13 Last Admin: 11/13/19 22:47 Dose: 10 mg Documented by: Dextrose (Dextrose 50%) 25 - 50 ml IV UD PRN; Protocol PRN Reason: Hypoglycemia Protocol Stop: 12/13/19 14:55 Docusate Sodium (Colace) 100 mg PO BID [facility] Stop: 12/13/19 20:59 Last Admin: 11/16/19 08:11 Dose: 100 mg Documented by: Fluoxetine HCl (Prozac) 20 mg PO DAILY [facility] Stop: 12/14/19 08:59 Last Admin: 11/16/19 08:10 Dose: 20 mg Documented by: Glucagon (Glucagen) 1 mg SQ UD PRN; Protocol PRN Reason: Hypoglycemia Protocol Stop: 12/13/19 14:55 Glucose (Dex4 Glucose) 4 - 8 tabs PO UD PRN; Protocol PRN Reason: Hypoglycemia Protocol Stop: 12/13/19 14:55 Glucose (Glucose 40%) 15 - 30 gm PO UD PRN; Protocol PRN Reason: Hypoglycemia Protocol Stop: 12/13/19 14:55 Insulin Aspart (Novolog Flexpen) 0 units SC ACHS [facility] Stop: 12/13/19 16:29 Last Admin: 11/16/19 12:31 Dose: Not Given Documented by: Lactobacillus Acidophilus (Floranex) 4 tab PO TIDM [facility] Stop: 12/14/19 16:59 Last Admin: 11/16/19 12:30 Dose: 4 tab Documented by: Metoprolol Tartrate (Lopressor) 12.5 mg PO BID [facility] Stop: 12/16/19 11:59 Last Admin: 11/16/19 12:30 Dose: 12.5 mg Documented by: Miscellaneous (Carbohydrates For Hypoglycemia) 15 - 30 gm PO UD PRN PRN Reason: Hypoglycemia Protocol Stop: 12/13/19 14:55 Oxycodone/Acetaminophen (Percocet 10/325mg) 1 tab PO Q6H PRN PRN Reason: Pain Stop: 11/27/19 14:53 Pantoprazole Sodium (Protonix) 40 mg PO QAM [facility] Stop: 12/14/19 08:59 Last Admin: 11/16/19 08:11 Dose: 40 mg Documented by: Polyethylene Glycol (Miralax Powder Packet) 17 gm PO DAILY PRN PRN Reason: Constipation Stop: 12/14/19 09:22 Timolol Maleate (Timoptic-Xe 0.25% Oph Soln) 1 drops OPB DAILY [facility] Stop: 12/14/19 08:59 Last Admin: 11/16/19 08:13 Dose: Not Given Documented by:
--- NOTE | 2019-11-16 13:36 | Cardiology Progress Note ---
Date of Service November 16, 2019 Assessment & Plan (1) Tachy-amy syndrome: (2) Symptomatic bradycardia: (3) Acute kidney injury superimposed on CKD: (4) Paroxysmal atrial fibrillation: Pacemaker implanted today without complication. Restart amiodarone at reduced dose, 200 mg daily. Continue metoprolol 12.5 mg twice daily. Restart Eliquis in 48 hours per discussion with electrophysiology. Repeat BMP in a.m. Plan discharge in 24 hours. Subjective Patient seen and examined at the bedside. Pacemaker implanted this a.m. without complication. Low-dose beta-adolfo restarted. Patient tolerating midday meal. Denies chest discomfort, abdominal discomfort, nausea, palpitations, lightheadedness, or dizziness. Sinus rhythm / Atrial paced on telemetry. Offers no other concerns or complaints at this time. Review of Systems Review of Systems: All systems reviewed & are unremarkable except as noted in HPI & below Physical Exam Constitutional: well developed, well nourished and + obese Respiratory: normal respiratory effort; no respiratory distress, no labored breathing and no retractions Cardiovascular: Rate/Rhythm: regular rate and + bradycardic Heart Sounds: normal S1 and normal S2 Vessels: no JVD and no carotid bruit Extremities: no edema Chest (Breasts): Additional Comments: Left sided pacemaker surgical site clean, dry, intact. Gastrointestinal (Abdomen): Inspection/Auscultation: abdomen normal to inspection and normal bowel sounds; abdomen not distended Percussion/Palpation: abdomen soft; abdomen nontender, no guarding and abdomen not rigid Skin: no rashes, warm and dry Neurologic: moves all extremities; no focal motor deficits Speech / Cognition: normal speech Motor/Sensory: no tremor Psychiatric: A+Ox3, euthymic affect Results & Data Vital Signs (Past 12 Hours) Vital Signs Temp Pulse Pulse Resp BP BP Pulse Ox 11/16/19 13:05 62 16 137/74 98 11/16/19 12:35 55 L 16 149/81 H 96 11/16/19 12:20 71 14 170/99 H 94 11/16/19 12:17 36.6 C 71 14 170/99 H 94 11/16/19 12:04 60 20 165/88 H 99 11/16/19 11:50 63 20 179/102 H 99 11/16/19 07:30 51 L 11/16/19 07:06 36.8 C 56 L 18 165/87 H 97 11/16/19 03:15 36.6 C 64 17 136/84 96
[2019-11-16] MEDS: OXYCODONE/ACETAMINOPHEN 10-325 TAB PO PRN ×2 (17:01→23:25)
[2019-11-17] MEDS: OXYCODONE/ACETAMINOPHEN 10-325 TAB PO PRN ×2 (06:26→12:59)
[2019-11-17] MEDS: INSULIN ASPART 100 UNITS/ML 3 ML PEN SC SCH ×2 (07:45→11:43)
--- NOTE | 2019-11-17 08:37 | XRay Report ---
TWO VIEW CHEST CLINICAL HISTORY: Cardiac pacemaker implantation. FINDINGS: PA and lateral chest radiographs are compared to study dated 11/13/2019. A 2-lead cardiac pa cemaker has been placed. Leads project over the right atrial appendage and the right ventricle. The h eart is mildly enlarged noting atherosclerotic calcification of the thoracic aorta. The pulmonary vas culature is noncongested. A hiatal hernia is noted. Chronic interstitial thickening is similar to pre vious. There is bibasilar scarring/atelectasis. No airspace consolidation or pleural effusion is iden tified. There is no pneumothorax. The skeletal structures are osteopenic. There are healed left-sided rib fractures. Surgical clips are noted in the upper abdomen. IMPRESSION: 1. A 2-lead cardiac pacemaker has been placed as above. No pneumothorax is seen post procedure. 2. There is no radiographic evidence of congestive failure. 3. No airspace consolidation or pleural effusion is identified. 4. Hiatal hernia. ACT 112: Negative or not required by law. Electronically signed by: Patrick Britton M.D. 11/17/2019 8:35 AM
[2019-11-17] MEDS: DOCUSATE SODIUM 100 MG CAP PO SCH (08:43)
[2019-11-17] MEDS: METOPROLOL TARTRATE 25 MG TAB PO SCH (08:43)
[2019-11-17] MEDS: FLUOXETINE HCL 20 MG CAP PO SCH (08:43)
[2019-11-17] MEDS: TIMOLOL GFS 0.25% OPH SOLN 74 DROPS/5 ML BTL OPB SCH (08:44)
[2019-11-17] MEDS: PANTOprazole 40 MG TAB PO SCH (08:44)
[2019-11-17] MEDS: ATORVASTATIN 40 MG TAB PO SCH (08:44)
[2019-11-17] MEDS: LACTOBACILLUS ACIDOPHILUS (FLORANEX) TAB PO SCH ×2 (08:44→11:34)
[2019-11-17] MEDS ORDERED: AMIODARONE 200 MG TAB PO SCH (09:00)
--- NOTE | 2019-11-17 09:17 | Cardiology Progress Note ---
Date of Service November 17, 2019 Assessment & Plan (1) Status post placement of cardiac pacemaker: She is doing very well post pacemaker implantation, the device is working well and there appear to be no complications. She is stable for discharge from my standpoint. Follow-up with Lisa. (2) Tachy-amy syndrome: She has classic symptomatic tachybradycardia syndrome. When she was in atrial fibrillation her heart rate was fast, she was having difficulty with chest discomfort due to her coronary artery disease and she was very short of breath. With control of her heart rate she still felt very poorly in atrial fibrillation. With conversion to sinus rhythm even on low doses of medications her heart rate was slow and she felt poorly. Prior to pacemaker implantation off of rate controlling medications (although there is some lingering effect of amiodarone) she still was bradycardic and still felt poorly with activities. She seems to feel better now with appropriate heart rate control. Admission and Anticipated Discharge Date Admission Date: November 13, 2019 Subjective She feels well and is anxious to go home. She has no significant incisional discomfort and feels good. Physical Exam Physical Exam: The incision is clean and dry, no drainage, no swelling. No bleeding. Dressing changed. Results & Data ([facility]) Vital Signs (Past 12 Hours) Vital Signs Temp Pulse Pulse Resp BP Pulse Ox 11/17/19 07:51 36.9 C 59 L 17 136/80 94 11/17/19 07:01 61 11/17/19 02:31 37.1 C 60 18 137/78 97 11/16/19 23:46 36.4 C L 60 18 127/75 98 11/16/19 23:37 60 Diagnostic Findings Postop ECG: Atrial pacing with intact AV conduction. Telemetry: Predominantly atrial pacing, intact AV conduction, normal operation. Chest x-ray: Good lead position, no pneumothorax Device evaluation: Excellent pacing and sensing characteristics. PG Care Time/CCT Total # of Minutes Spent Total Time Spent with Patient: Total time spent is greater than 50% in cool roofing installer rdination of care (as documented) at patient's floor/unit and/or counseling patient: Coding Level of Care Code 97433 Post Operative Follow-Up Diagnoses Status post placement of cardiac pacemaker Z95.0 Tachy-amy syndrome I49.5 CPT Codes Implantable Defib dual lead programming - 59120 ([id number])
--- NOTE | 2019-11-17 11:44 | Electrocardiogram Report ---
Test Reason : Blood Pressure : / mmHG Vent. Rate : 060 BPM Atrial Rate : 060 BPM P-R Int : 222 ms QRS Dur : 078 ms QT Int : 424 ms P-R-T Axes : 000 026 078 degrees QTc Int : 424 ms Atrial-paced rhythm with prolonged AV conduction Low voltage QRS Cannot rule out Anterior infarct , age undetermined Abnormal ECG When compared with ECG of 15-NOV-2019 06:38, Electronic atrial pacemaker has replaced Sinus rhythm Minimal criteria for Anterior infarct are now Present Nonspecific T wave abnormality no longer evident in Anterior leads Confirmed by Dashawn Cortez ([id number]) on 11/17/2019 11:44:16 AM Referred By: REFERRED SELF Confirmed By:Dashawn Cortez
--- NOTE | 2019-11-17 12:07 | Hospitalist Progress Note ---
Date of Service November 17, 2019 Assessment & Plan (1) Tachy-amy syndrome: Dizziness with lightheadedness and syncopal episode at home History of atrial fibrillation with RVR and subsequent DC cardioversion during recent admission to the hospital Was on amiodarone and small dose of beta-adolfo Noted to have bradyarrhythmias with associated symptoms as mentioned earlier Appreciate cardiology input and recommendation Will have permanent pacemaker placement tomorrow He will be n.p.o. after midnight Status post permanent pacemaker placement Complains some pain at surgery site Likely be discharged tomorrow No events in telemetry, pacemaker is working and check Will be discharged home this afternoon (2) Symptomatic bradycardia: This is an 84yo F with a PMH of paroxysmal A fib on Eliquis, CAD, HTN, DM II, polymyalgia rheumatica and other medical problems listed below who presents from clinic after being found to have complete heart block. History of recent A fib with RVR, recently underwent OP cardioversion. Found to have complete heart block today in clinic Repeat EKG in [facility] with sinus bradycardia with first-degree AV block Evaluated by Dr. Sheppard in ED, planning on possible pacemaker placement early next week 2/2 tachycardia-bradycardia syndrome Admit to PCU, holding Eliquis and starting unfractionated heparin infusion without bolus tonight at 9 PM Holding metoprolol and amiodarone Pacers at bedside Will get EKG-showed atrial paced rhythm No more bradycardia (3) Acute kidney injury superimposed on CKD: Cr elevated at 2.98 (was 1.76 during previous admission) In setting of poor fluid intake per patient, also with recent hypotension and bradycardia causing hypoperfusion of kidneys Hold lisinopril and Lasix. Gentle fluids in ED Monitor with daily BMP Creatinine is slightly improved at 2.39 Advised to drink more fluids We will continue intravenous fluid as minimum Kidney function has improved a lot Kidney function is at her baseline Kidney function has been improving and is back to her baseline (4) CAD (coronary artery disease): H/o remote angioplasty. Repeat cardiac cath in 2011 showed stable disease No acute ST or T wave changes Continue aspirin, statin No acute cardiac symptoms (5) DM type 2 (diabetes mellitus, type 2): Diet controlled BSG ACHS, SSI ordered (6) Diastolic CHF: Euvolemic. Holding lasix in setting of HARJEET, metoprolol in setting of heart block No acute fluid overload (7) Chronic back pain: H/o sacroiliitis. Continue home dose oxycodone DVT Ppx: IV heparin for now Code status: FULL PCP: Daniel Dispo: Admit to PCU. Discharge planning ordered. Discharge home this afternoon Admission and Anticipated Discharge Date Admission Date: November 13, 2019 Subjective The patient was seen and examined in telemetry unit She was admitted with dizzy spells and shortness of breath while ambulating Noted to have tachybradycardia syndrome and was admitted for pacemaker placement Remains stable in the telemetry unit Monitor is showing sinus rhythm without any significant bradyarrhythmias 11/15/2019 The patient was seen and examined in telemetry unit She remains stable at rest No significant arrhythmias noted on monitor and she denies any symptoms 11/16/2019 The patient was seen and examined in telemetry unit She is a status post permanent pacemaker placement Complains to have some pain at the insertion site but otherwise denies any other symptoms 11/17/2019 Patient was seen and examined in telemetry unit She has been feeling a lot better and denies any pain and wants to go home today She has been ambulating without any dizziness Review of Systems Review of Systems: All systems reviewed and are unremarkable except as noted below Cardiovascular: + chest pain (At the operation site for PPM ) Physical Exam Physical Exam: Lying in a bed without any acute symptoms Constitutional: well developed, well nourished and + ill appearing; no acute distress Eyes: PERRL, conjunctivae normal, anicteric sclerae ENMT: external ear and nose normal, oropharynx normal Neck: trachea midline, no thyromegaly Respiratory: normal respiratory effort; no respiratory distress Auscultation: lungs clear to auscultation bilaterally and + diminished lung sounds (At the bases) Cardiovascular: Rate/Rhythm: regular rate and regular rhythm Heart Sounds: no murmur Extremities: + edema (Trace to 1+ edema bilaterally) Gastrointestinal (Abdomen): Inspection/Auscultation: abdomen normal to inspection and normal bowel sounds; abdomen not distended Percussion/Palpation: abdomen soft; abdomen nontender Neurologic: moves all extremities; no focal motor deficits Lymphatic: no cervical or axillary lymphadenopathy Results & Data Results & Data ([facility]) Vital Signs (Past 12 Hours) Vital Signs Temp Pulse Pulse Resp BP BP Pulse Ox 11/17/19 11:59 36.8 C 59 L 18 124/77 93 11/17/19 07:51 36.9 C 59 L 17 136/80 94 11/17/19 07:01 61 11/17/19 02:31 37.1 C 60 18 137/78 97 Medications Administered Current Inpatient Medications Acetaminophen (Tylenol) 650 mg PO Q4H PRN PRN Reason: Pain or Fever Stop: 12/13/19 14:47 Acetaminophen (Tylenol) 650 mg PO Q4H PRN PRN Reason: Mild pain (rating 1,2,3) Stop: 12/16/19 11:48 Acetaminophen/Codeine Phosphate (Tylenol W/Codeine #3) 1 - 2 tab PO Q4H PRN PRN Reason: Moderate-Severe Pain Stop: 12/16/19 11:48 Amiodarone HCl (Cordarone) 200 mg PO QAM [facility] Stop: 12/17/19 08:59 Last Admin: 11/17/19 08:43 Dose: 200 mg Documented by: Atorvastatin Calcium (Lipitor) 40 mg PO DAILY [facility] Stop: 12/14/19 08:59 Last Admin: 11/17/19 08:44 Dose: 40 mg Documented by: Bisacodyl (Dulcolax) 10 mg PO DAILY PRN PRN Reason: Constipation Stop: 12/13/19 21:13 Last Admin: 11/13/19 22:47 Dose: 10 mg Documented by: Dextrose (Dextrose 50%) 25 - 50 ml IV UD PRN; Protocol PRN Reason: Hypoglycemia Protocol Stop: 12/13/19 14:55 Docusate Sodium (Colace) 100 mg PO BID [facility] Stop: 12/13/19 20:59 Last Admin: 11/17/19 08:43 Dose: 100 mg Documented by: Fluoxetine HCl (Prozac) 20 mg PO DAILY [facility] Stop: 12/14/19 08:59 Last Admin: 11/17/19 08:43 Dose: 20 mg Documented by: Glucagon (Glucagen) 1 mg SQ UD PRN; Protocol PRN Reason: Hypoglycemia Protocol Stop: 12/13/19 14:55 Glucose (Dex4 Glucose) 4 - 8 tabs PO UD PRN; Protocol PRN Reason: Hypoglycemia Protocol Stop: 12/13/19 14:55 Glucose (Glucose 40%) 15 - 30 gm PO UD PRN; Protocol PRN Reason: Hypoglycemia Protocol Stop: 12/13/19 14:55 Insulin Aspart (Novolog Flexpen) 0 units SC ACHS [facility] Stop: 12/13/19 16:29 Last Admin: 11/17/19 11:43 Dose: Not Given Documented by: Lactobacillus Acidophilus (Floranex) 4 tab PO TIDM [facility] Stop: 12/14/19 16:59 Last Admin: 11/17/19 11:34 Dose: Not Given Documented by: Metoprolol Tartrate (Lopressor) 12.5 mg PO BID [facility] Stop: 12/16/19 11:59 Last Admin: 11/17/19 08:43 Dose: 12.5 mg Documented by: Miscellaneous (Carbohydrates For Hypoglycemia) 15 - 30 gm PO UD PRN PRN Reason: Hypoglycemia Protocol Stop: 12/13/19 14:55 Oxycodone/Acetaminophen (Percocet 10/325mg) 1 tab PO Q6H PRN PRN Reason: Pain Stop: 11/27/19 14:53 Last Admin: 11/17/19 06:26 Dose: 1 tab Documented by: Pantoprazole Sodium (Protonix) 40 mg PO QAM [facility] Stop: 12/14/19 08:59 Last Admin: 11/17/19 08:44 Dose: 40 mg Documented by: Polyethylene Glycol (Miralax Powder Packet) 17 gm PO DAILY PRN PRN Reason: Constipation Stop: 12/14/19 09:22 Timolol Maleate (Timoptic-Xe 0.25% Oph Soln) 1 drops OPB DAILY [facility] Stop: 12/14/19 08:59 Last Admin: 11/17/19 08:44 Dose: Not Given Documented by:
--- NOTE | 2019-11-17 13:00 | Cardiology Progress Note ---
Date of Service November 17, 2019 Assessment & Plan (1) Tachy-amy syndrome: (2) Symptomatic bradycardia: (3) Acute kidney injury superimposed on CKD: (4) Paroxysmal atrial fibrillation: Pacemaker implanted 11/16/19 without complication. Continue amiodarone at reduced dose, 200 mg daily. Continue metoprolol 12.5 mg twice daily. Restart Eliquis in tomorrow 11/18/19. Wound check in 1 week. Pacemaker threshold testing in 6 weeks. No further inpatient cardiology testing or intervention at this time. Cardiology will sign off. Subjective Patient seen and examined at the bedside. Denies chest pain or shortness of breath. Telemetry demonstrates atrial paced rhythm. No evidence of recurrent atrial fibrillation. Chest x-ray without evidence of pneumothorax. Tolerating diet medications. Offers no other concerns/complaints at this time. Review of Systems Review of Systems: All systems reviewed & are unremarkable except as noted in HPI & below Physical Exam Constitutional: well developed, well nourished and + obese Respiratory: normal respiratory effort; no respiratory distress, no labored breathing and no retractions Cardiovascular: Rate/Rhythm: regular rate and + bradycardic Heart Sounds: normal S1 and normal S2 Vessels: no JVD and no carotid bruit Extremities: no edema Gastrointestinal (Abdomen): Inspection/Auscultation: abdomen normal to inspection and normal bowel sounds; abdomen not distended Percussion/P alpation: abdomen soft; abdomen nontender, no guarding and abdomen not rigid Skin: no rashes, warm and dry Neurologic: moves all extremities; no focal motor deficits Speech / Cognition: normal speech Motor/Sensory: no tremor Psychiatric: A+Ox3, euthymic affect Results & Data Vital Signs (Past 12 Hours) Vital Signs Temp Pulse Pulse Resp BP BP Pulse Ox 11/17/19 11:59 36.8 C 59 L 18 124/77 93 11/17/19 07:51 36.9 C 59 L 17 136/80 94 11/17/19 07:01 61 11/17/19 02:31 37.1 C 60 18 137/78 97
--- NOTE | 2019-11-17 17:49 | Discharge Summary ---
Date of Service November 17, 2019 Admission HPI Per Admitting Provider This is an 84yo F with a PMH of paroxysmal A fib on Eliquis, CAD, HTN, DM II, polymyalgia rheumatica and other medical problems listed below who presents from clinic after being found to have complete heart block. Patient was hospitalized two months ago when she was found to be in symptomatic atrial fibrillation with RVR. Underwent outpatient cardioversion with some improvement but over the past month she has felt increasingly symptomatic with exertion. Endorses increased fatigue, lightheadedness, dizzy, intermittent chest pain and shortness of breath with exertional activities including just walking around her home. States that she is able to get up and use the restroom but then needs to rest before continuing on around her house. Feels completely asymptomatic at rest. At this morning's clinic visit, EKG on arrival revealed complete heart block at 45 bpm with associated hypotension with blood pressure 80/54. Was transferred to ED via EMS for further evaluation. EKG performed in [facility] ED showed sinus bradycardia at 53 bpm with first-degree AV block and improved blood pressure to 107/62. Was evaluated in the ED by Dr. Sheppard, who will repeat TTE and plan for pacemaker placement early next week. Will be admitted and monitored on telemetry closely until then. Upon my evaluation, patient was asymptomatic and resting comfortably. Denies any fever, chills, lightheadedness, headache, cough, chest pain, shortness of breath, nausea, vomiting, abdominal pain, dysuria or diarrhea. Has chronic constipation with last bowel movement 2 days ago. Has been taking laxatives. Took all of her morning medications with the exception of Lasix and potassium. Admission Exam Per Admitting Provider Physical Exam: General Appearance: WD/WN, vitals as above, NAD, sitting up in bed, pleasant, conversing easily Head: normocephalic, atraumatic Eyes: normal inspection, PERRL, conjunctivae normal, anicteric sclerae ENT: external ear and nose normal, oropharynx normal Neck: trachea midline, no thyromegaly normal visual inspection Respiratory: normal respiratory effort, lungs clear to auscultation, no wheeze, rales, rhonchi. Normal insp/exp effort, no accessory muscle use Cardiovascular: bradycardic rate, regular rhythm, no murmur appreciated, normal peripheral pulses. Vessels: no JVD or carotid bruit Chest: normal inspection of chest Abdomen/GI: normal bowel sounds, soft, nontender, no hepatosplenomegaly Extremities/Musculoskeletal: no cyanosis or clubbing, extremities motor strength 5/5, BLE non-pitting edema Neurologic: PERRL, EOMI, accommodation nl, no face palsy, no dysarthria, CN's II-XI intact bilaterally and moves all extremities Psychiatric: A+Ox3, euthymic affect Skin: no rashes, normal color, warm/dry Principal Diagnosis Tachybradycardia syndrome status post PPM placement Discharge Exam Constitutional well developed, well nourished and + ill appearing; no acute distress Eyes PERRL, conjunctivae normal, anicteric sclerae ENMT external ear and nose normal, oropharynx normal Neck trachea midline, no thyromegaly Respiratory normal respiratory effort; no respiratory distress Auscultation: lungs clear to auscultation bilaterally and + diminished lung sounds (At the bases) Cardiovascular Rate/Rhythm: regular rate and regular rhythm Heart Sounds: no murmur Extremities: + edema (Trace to 1+ edema bilaterally) Gastrointestinal (Abdomen) Inspection/Auscultation: abdomen normal to inspection and normal bowel sounds; abdomen not distended Percussion/Palpation: abdomen soft; abdomen nontender Neurologic moves all extremities; no focal motor deficits Lymphatic no cervical or axillary lymphadenopathy Discharge Data Allergies Allergy/AdvReac Type Severity Reaction Status Date / Time metoclopramide Allergy Intermediate neuro Verified 11/13/19 12:56 complications adhesive Allergy Unknown ALLERGY TO Verified 11/13/19 12:56 TAPE naproxen [From Naprosyn] Allergy Unknown Verified 11/13/19 12:56 doxycycline AdvReac Mild n/v Verified 11/13/19 12:56 Consultations 11/13/19 12:11 Consult Cardiology Stat 11/13/19 13:05 ED Decision to Admit Stat 11/13/19 14:48 Consult Case Management - Discharge Planning Routine 11/13/19 16:19 Consult Cardiac Electrophysiology Routine Procedures Performed Operation Date: 11/16/19 10:00 Actual Procedures p Pacer with A/V Leads (Dual) - Dashawn Cortez MD Ordered Studies 11/16/19 06:52 CL Cath Imgs for PACS use only Routine Hospital Course (1) Tachy-amy syndrome: Dizziness with lightheadedness and syncopal episode at home History of atrial fibrillation with RVR and subsequent DC cardioversion during recent admission to the hospital Was on amiodarone and small dose of beta-adolfo Noted to have bradyarrhythmias with associated symptoms as mentioned earlier Appreciate cardiology input and recommendation Will have permanent pacemaker placement tomorrow He will be n.p.o. after midnight Status post permanent pacemaker placement Complains some pain at surgery site Likely be discharged tomorrow No events in telemetry, pacemaker is working and check Will be discharged home this afternoon (2) Symptomatic bradycardia: This is an 84yo F with a PMH of paroxysmal A fib on Eliquis, CAD, HTN, DM II, polymyalgia rheumatica and other medical problems listed below who presents from clinic after being found to have complete heart block. History of recent A fib with RVR, recently underwent OP cardioversion. Found to have complete heart block today in clinic Repeat EKG in [facility] with sinus bradycardia with first-degree AV block Evaluated by Dr. Sheppard in ED, planning on possible pacemaker placement early next week 2/2 tachycardia-bradycardia syndrome Admit to PCU, holding Eliquis and starting unfractionated heparin infusion without bolus tonight at 9 PM Holding metoprolol and amiodarone Pacers at bedside Will get EKG-showed atrial paced rhythm No more bradycardia (3) Acute kidney injury superimposed on CKD: Cr elevated at 2.98 (was 1.76 during previous admission) In setting of poor fluid intake per patient, also with recent hypotension and bradycardia causing hypoperfusion of kidneys Hold lisinopril and Lasix. Gentle fluids in ED Monitor with daily BMP Creatinine is slightly improved at 2.39 Advised to drink more fluids We will continue intravenous fluid as minimum Kidney function has improved a lot Kidney function is at her baseline Kidney function has been improving and is back to her baseline (4) CAD (coronary artery disease): H/o remote angioplasty. Repeat cardiac cath in 2011 showed stable disease No acute ST or T wave changes Continue aspirin, statin No acute cardiac symptoms (5) DM type 2 (diabetes mellitus, type 2): Diet controlled BSG ACHS, SSI ordered (6) Diastolic CHF: Euvolemic. Holding lasix in setting of HARJEET, metoprolol in setting of heart block No acute fluid overload (7) Chronic back pain: H/o sacroiliitis. Continue home dose oxycodone DVT Ppx: IV heparin for now Code status: FULL PCP: Daniel Dispo: Admit to PCU. Discharge planning ordered. Discharge home this afternoon Total Time Total Time Spent Total Time Spent (In Minutes): 35 minutes Total Time Includes: Examination of the Patient, Discharge Planning, Medication Reconciliation and Communication With Other Providers Discharge Plan Discharge Items Patient Disposition: Home - Home Health Services Reason For Visit: CHEST PAIN Discharge Diagnosis: Tachybradycardia syndrome status post PPM placement Condition on Discharge: Good Activity: As commented below Non-emergency contact: Primary Care Provider Call non-emergency contact if: you have any medication questions and your symptoms worsen Follow-up/Referrals: Steve Hooker MD [Primary Care Provider] - 11/24/19 10:20 am (11/24/2019 10:20 AM Provider Naima Cho MD Department General Internal Medicine [facility] Please check pacemaker wound during follow-up. Please have regular follow-up appointment with access services representative ) Diet: Carb Consistent or DM2 and Heart Healthy Addtl Attending Provider Instructions: Please take precaution to avoid falls Addtl Ripper Operator Provider Instructions: ACTIVITY RECOMMENDATIONS: * Do not raise affected arm over head for 2 weeks. SPECIAL CARE INSTRUCTIONS: * If bleeding occurs, apply direct pressure to area for 5 minutes. * Call your doctor if you have severe pain, fever, drainage or bleeding at site. * Keep dressing on and dry for 48 hours then remove. * Keep any scheduled doctor's appointment. * Implant Card - hand held device with website information given. SKIN IRRITATION: * You may experience some redness and/or swelling in the area where radiation was administered. If any skin irritation occurs, please contact your family physician. FOLLOW UP VISIT: Keep any scheduled doctor appointments. Pending Studies at Discharge: No Stand-Alone Forms: [facility] knowNormal, Smoking Cessation Medications and DC Order Prescriptions: Continued atorvastatin 40 mg tablet 40 mg PO DAILY RF: 0 isosorbide mononitrate 30 mg tablet extended release 24 hr 30 mg PO QAM RF: 0 aspirin 81 mg Tablet,Delayed Release (Dr/Ec) 81 mg PO MOWEFR RF: 0 omeprazole 20 mg capsule,delayed release(DR/EC) 20 mg PO QAM RF: 0 lisinopril 5 mg tablet 5 mg PO DAILY RF: 0 albuterol sulfate [Ventolin HFA] 90 mcg/actuation HFA aerosol inhaler 2 puff inhalation QID RF: 0 fluoxetine 20 mg capsule 20 mg PO DAILY RF: 0 timolol maleate 0.25 % gel forming solution 1 drp OPB DAILY RF: 0 potassium chloride [Klor-Con M10] 10 mEq tablet,ER particles/crystals 10 meq PO DAILY RF: 0 metoprolol tartrate 25 mg tablet 12.5 mg PO BID RF: 0 Probiotic 3 billion cell Capsule 3 mmu cells PO DAILY RF: 0 docusate sodium 100 mg Capsule 100 mg PO BID RF: 0 furosemide 20 mg tablet 40 mg PO DAILY RF: 0 diclofenac sodium 1 % gel 4 g TOPICAL QID RF: 0 magnesium oxide 400 mg magnesium Tablet 400 mg PO DAILY RF: 0 Eliquis 2.5 mg tablet 2.5 mg PO BID 30 Days Qty: 60 RF: 0 oxycodone-acetaminophen 10-325 mg tablet 1 tab PO Q6H PRN (Reason: Pain) RF: 0 Changed amiodarone 200 mg Tablet 200 mg PO DAILY 30 Days Qty: 60 RF: 2 Discharge Orders: Discharge Order (Routine); Ordered 11/17/19 Ordered By: Mery Mooney/Other Patient Handouts: Discharge Instructions for Pacemaker Implantation Admission Data Admit Date/Time: 11/13/19 13:23 Attending Provider: Mery Morris Admit Provider: Mery Morris Primary Care Provider: Steve Hooker Other Providers: Carson Sheppard ; Mery Morris ; Dashawn Cortez ; [facility] Other Interventions: Discharge Summary Assessment (RN) Last Done: 11/17/19 13:11 DC Date/Time DO NOT enter until pt leaves facility: 11/17/19 15:17
== END 2019-11-17 15:17 | disposition home health service (06) | DRG 243 ==
LOC: ED 12:03 → 2S 13:23

== ENCOUNTER 2020-06-10 13:46 | Inpatient (IN) ==
--- NOTE | 2020-06-10 14:15 | Emergency Department Note ---
History of Present Illness General Chief complaint: Illness Stated complaint: ILLNESS Time Seen by Provider: 06/10/20 13:55 Source: patient History of Present Illness Provider complaint: Left-sided weakness and pain Onset (ago): day(s) Location: head, upper extremity, lower extremity and left Severity: moderate Pain Consistency: + intermittent Maximum Pain Intensity: 5 Quality: + other ("pain") Relieved By: + none Exacerbated By: + none Associated symptoms: + shortness of breath (Chronic shortness of breath which is unchanged) and + weakness; no chest pain, no cough, no fever/chills, no headaches and no nausea/vomiting This is an 85-year-old female who presents with pain and shaking to the left side of her head, arm and leg. She states it started about a week ago. She states initially it was just her leg. She would get intermittent episodes where she will have pain from her toes all the way up into her hip. She cannot describe the pain. She rates it as severe. It was associated with some weakness to the leg. She states the episodes last about 2 to 3 minutes. She was having them infrequently but yesterday had 7 episodes and had 1 prior to arrival. She states over the past 2 days it also involved her left arm and her head. She states she does not have a headache but she feels like the left side of her head is shaking. She denies any visual complaints, difficulty swallowing or numbness. She states she normally walks with a cane. [facility] She denies any fever, vomiting, chest pain, abdominal pain, diarrhea, cough or cold symptoms, headache or known exposure to COVID-19. She does state that she has a history of chronic back pain and was told she had sciatica in the past but this does not feel similar. She states she was seen by her doctor who has her scheduled for an MRI on the of her lumbar spine. She states that she h as chronic shortness of breath which is unchanged. Home Medications Medication Instructions Recorded Confirmed Type Probiotic 3 mmu cells PO QAM 08/20/19 06/10/20 History albuterol sulfate [Ventolin HFA] 2 puff INHALATION QID 08/20/19 06/10/20 History aspirin 81 mg PO MOWEFR 08/20/19 06/10/20 History atorvastatin 40 mg PO QAM 08/20/19 06/10/20 History diclofenac sodium 4 g TOPICAL QID 08/20/19 06/10/20 History docusate sodium 100 mg PO BID 08/20/19 06/10/20 History fluoxetine 20 mg PO QAM 08/20/19 06/10/20 History furosemide 40 mg PO QAM 08/20/19 06/10/20 History isosorbide mononitrate 30 mg PO QAM 08/20/19 06/10/20 History lisinopril 5 mg PO QAM 08/20/19 06/10/20 History magnesium oxide 400 mg PO QAM 08/20/19 06/10/20 History metoprolol tartrate 12.5 mg PO BID 08/20/19 06/10/20 History omeprazole 20 mg PO QAM 08/20/19 06/10/20 History potassium chloride [Klor-Con M10] 10 meq PO QAM 08/20/19 06/10/20 History Eliquis 2.5 mg PO BID 30 Days #60 tab 08/25/19 06/10/20 Rx oxycodone-acetaminophen 1 tab PO Q6H PRN 11/13/19 06/10/20 History amiodarone 200 mg PO QAM 06/03/20 06/10/20 History Allergies Allergy/AdvReac Type Severity Reaction Status Date / Time metoclopramide Allergy Intermediate neuro Verified 06/10/20 14:49 complications adhesive Allergy Unknown ALLERGY TO Verified 06/10/20 14:49 TAPE naproxen [From Naprosyn] Allergy Unknown Verified 06/10/20 14:49 doxycycline AdvReac Mild n/v Verified 06/10/20 14:49 Past Med/Surg History Medical History (Updated 06/10/20 @ 18:06 by Elmer Kramer MD) CAD (coronary artery disease) "1996 - PTCA to RCA 2011 - cath that showed patent RCA and no further disease" Chronic back pain CKD stage 3 due to type 1 diabetes mellitus Diastolic CHF DM type 2 (diabetes mellitus, type 2) Dyslipidemia GERD (gastroesophageal reflux disease) History of nephrolithiasis Polymyalgia rheumatica Surgical History History of cystoscopy History of lithotripsy History of PTCA S/P appendectomy S/P cholecystectomy S/P hysterectomy Family History Aunt Breast cancer Mother Diabetes Coronary heart disease Father Silicosis Social History Smoking Status: Former smoker packs per day: 0.5; Years Smoked: 40; Second Hand Exposure: No; Hx Alcohol Use: No Hx Substance Use: No Preferred Language: Estonian Communication Ability: Unable Visual Impairment: Partially Limited 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 and A total of 10 systems reviewed and were otherwise negative Physical Exam Vital Signs Vital Signs - 24 hr 06/10/20 13:47 06/10/20 14:28 06/10/20 14:30 Temperature 36.2 C L Temperature Source Temporal Artery Scan Pulse Rate 119 H 60 60 Pulse Rate from SpO2 Sensor Respiratory Rate 20 17 16 Blood Pressure 173/91 H Blood Pressure Mean 118 Pulse Oximetry 94 Oxygen Delivery Method Room Air Room Air Room Air Sepsis Recent Fever Within 48 Hours No Sepsis New/Unexplained Change in Mental Status No Sepsis Action Taken by Nursing No Action Required 06/10/20 14:32 06/10/20 14:40 06/10/20 14:50 Temperature Temperature Source Pulse Rate 60 60 60 Pulse Rate from SpO2 Sensor 60 60 60 Respiratory Rate 15 15 16 Blood Pressure 181/95 H Blood Pressure Mean 129 Pulse Oximetry 98 97 94 Oxygen Delivery Method Room Air Room Air Room Air Sepsis Recent Fever Within 48 Hours Sepsis New/Unexplained Change in Mental Status Sepsis Action Taken by Nursing 06/10/20 15:00 06/10/20 15:10 06/10/20 15:19 Temperature Temperature Source Pulse Rate 60 60 66 Pulse Rate from SpO2 Sensor 60 60 66 Respiratory Rate 16 15 22 Blood Pressure 164/91 H Blood Pressure Mean 123 Pulse Oximetry 95 97 98 Oxygen Delivery Method Room Air Room Air Room Air Sepsis Recent Fever Within 48 Hours Sepsis New/Unexplained Change in Mental Status Sepsis Action Taken by Nursing 06/10/20 15:20 06/10/20 15:30 06/10/20 15:31 Temperature Temperature Source Pulse Rate 68 60 60 Pulse Rate from SpO2 Sensor 68 60 60 Respiratory Rate 16 13 14 Blood Pressure 167/93 H Blood Pressure Mean 125 Pulse Oximetry 97 97 97 Oxygen Delivery Method Room Air Room Air Room Air Sepsis Recent Fever Within 48 Hours Sepsis New/Unexplained Change in Mental Status Sepsis Action Taken by Nursing 06/10/20 15:40 06/10/20 15:50 06/10/20 16:00 Temperature Temperature Source Pulse Rate 60 60 104 H Pulse Rate from SpO2 Sensor 60 60 Respiratory Rate 13 12 14 Blood Pressure Blood Pressure Mean Pulse Oximetry 97 99 Oxygen Delivery Method Room Air Room Air Room Air Sepsis Recent Fever Within 48 Hours Sepsis New/Unexplained Change in Mental Status Sepsis Action Taken by Nursing 06/10/20 16:01 06/10/20 16:10 06/10/20 16:20 Temperature Temperature Source Pulse Rate 75 97 H Pulse Rate from SpO2 Sensor 74 60 73 Respiratory Rate 17 19 18 Blood Pressure 186/111 H Blood Pressure Mean 139 Pulse Oximetry 94 98 97 Oxygen Delivery Method Room Air Room Air Room Air Sepsis Recent Fever Within 48 Hours Sepsis New/Unexplained Change in Mental Status Sepsis Action Taken by Nursing 06/10/20 16:30 06/10/20 16:40 06/10/20 16:50 Temperature Temperature Source Pulse Rate 63 60 59 L Pulse Rate from SpO2 Sensor 63 60 60 Respiratory Rate 18 20 14 Blood Pressure Blood Pressure Mean Pulse Oximetry 99 99 98 Oxygen Delivery Method Room Air Room Air Room Air Sepsis Recent Fever Within 48 Hours Sepsis New/Unexplained Change in Mental Status Sepsis Action Taken by Nursing 06/10/20 17:00 06/10/20 17:01 Temperature Temperature Source Pulse Rate 60 60 Pulse Rate from SpO2 Sensor Respiratory Rate 15 15 Blood Pressure 200/91 H Blood Pressure Mean 105 Pulse Oximetry Oxygen Delivery Method Room Air Room Air Sepsis Recent Fever Within 48 Hours Sepsis New/Unexplained Change in Mental Status Sepsis Action Taken by Nursing Constitutional: Vital signs reviewed. Eyes: Pupils are equal round reactive to light. Conjunctiva are noninjected. ENT: Pharynx is clear without erythema or exudate. Mucous membranes are moist. Neck supple without meningeal signs. Respiratory: Clear to auscultation bilaterally. Breath sounds are equal bilaterally. Cardiovascular: Regular rate and rhythm. No rubs or gallops. GI: Soft, nondistended and nontender. Bowel sounds are present. Musculoskeletal: Bilateral lower extremity edema. No lower extremity tenderness. Integumentary: No cyanosis. or jaundice. Neurologic: The patient is awake and alert. Cranial nerves II-XII are intact. Motor is 5 out of 5 all extremities, although difficult to assess proximal lower extremities. Sensation is intact to light touch all extremities. Normal speech. No pronator drift. No limb ataxia. Psychiatric: Anxious. Course Administered Medications Discontinued Medications Ioversol (Optiray 320 125ml) 116 ml IV ONCE ONE Stop: 06/10/20 17:09 Last Admin: 06/10/20 17:09 Dose: 116 ml Documented by: [id number] Critical Care Time Critical Care Time: Yes Total Critical Care Time: 35 I have personally spent approximately 35 minutes of critical care time in the direct management of this patient. This includes bedside care, interpretation of diagnostic studies, and testing, discussion with consultants, patient, and family members, and other required patient management activities. These minutes are in excess of all separately billable procedures. Medical Decision Making Differential Diagnosis Neuropathy, intracranial mass, intracranial hemorrhage, CVA, simple partial seizure, metabolic derangement Medical Records Attestation: I reviewed the patient's medical records. I did perform a limited focused review of portions of the patient's old chart on the electronic medical record. The patient was seen here on the for leg shaking and pain. She had a work-up here including x-rays of her lumbar spine and chest, CT of the head and Doppler of her left leg. She also had blood work as well. She was seen by Dr. Hooker in follow-up on the . She has an MRI of her lumbar spine planned. Home Medications Current Medication List: was personally reviewed by me Laboratory Data Attestation: I reviewed the patient's lab results. Result diagrams: 06/10/20 14:19 06/10/20 14:19 Lab Results 06/10/20 06/10/20 06/10/20 Range/Units 14:19 14:19 14:19 WBC 6.32 (4.8-10.8) K/uL RBC 4.55 (4.2-5.4) M/uL Hgb 12.9 (12.0-16.0) g/dL Hct 40.4 (37-47) % MCV 88.8 (80-100) fL MCH 28.4 (25-34) pg MCHC 31.9 L (32-36) g/dL RDW Std Deviation 49.5 H (36.4-46.3) fL RDW Coeff of Tab 15.4 H (11.5-14.5) % Plt Count 200 (130-400) K/uL MPV 10.9 H (7.4-10.4) fL Immature Gran % (Auto) 0.2 % Neut % (Auto) 64.6 % Lymph % (Auto) 24.1 % Young % (Auto) 8.1 % Eos % (Auto) 2.7 % Baso % (Auto) 0.3 % Neut # (Auto) 4.09 (1.4-6.5) K/uL Lymph # (Auto) 1.52 (1.2-3.4) K/uL Young # (Auto) 0.51 (0.11-0.59) K/uL Eos # (Auto) 0.17 (0-0.5) K/uL Baso # (Auto) 0.02 (0-0.2) K/uL Immature Gran # (Auto) 0.01 (0.00-0.02) K/uL PT 11.3 (9.0-12.0) Seconds INR 1.1 (0.9-1.1) APTT 25.6 (21.0-31.0) Seconds PTT Ratio 0.9 Sodium 137 (136-145) mmol/L Potassium 4.5 (3.5-5.1) mmol/L Chloride 104 (98-107) mmol/L Carbon Dioxide 27 (21-32) mmol/L Anion Gap 6.0 (3-11) BUN 18 (7-18) mg/dl Creatinine 1.43 H (0.6-1.2) mg/dl Est Cr Clr Drug Dosing 31.8 ml/min Est GFR ( Amer) 39.2 Est GFR (Non-Af Amer) 33.8 BUN/Creatinine Ratio 12.7 (10-20) Glucose 99 (70-99) mg/dl Calcium 9.2 (8.5-10.1) mg/dl Magnesium 1.9 (1.8-2.4) mg/dl Total Bilirubin 0.4 (0.2-1) mg/dl AST 23 (15-37) U/L ALT 21 (12-78) U/L Alkaline Phosphatase 98 (45-117) U/L Troponin I < 0.015 (0-0.045) ng/ml Total Protein 6.8 (6.4-8.2) gm/dl Albumin 3.4 (3.4-5.0) gm/dl Globulin 3.4 (2.5-4.0) gm/dl Albumin/Globulin Ratio 1.0 (0.9-2) Specimen Hemolysis Imaging Data Radiologist's Impression: CT head/brain wo con CLINICAL HISTORY: Left arm and leg weakness. Suspected acute stroke. COMPARISON STUDY: Head CT dated 06/03/2020 TECHNIQUE: Axial CT of the brain is performed from the vertex to the skull base. IV contrast was not administered for this examination. A dose lowering technique was utilized adhering to the principles of ALARA. CT DOSE: FINDINGS: There is a right parietal apex hypodensity which was not present on the preceding examination. This likely represents a subacute infarct. An MRI could be obtained in follow-up to confirm this impression as deemed clinically necessary. There is no evidence of acute hemorrhage. There is no evidence of midline shift. No calvarial fractures are visualized. There are patchy white matter hypodensities likely on a small vessel basis. There is no evidence of pathologic ventricular dilatation. There is a polyp/retention cyst within the right sphenoid. IMPRESSION: 1. Interval development of a right parietal apex hypodensity, likely representing a subacute infarct. An MRI could be obtained in follow-up as deemed clinically necessary. 2. No evidence of acute hemorrhage. ACT 112: Negative or not required by law. Electronically signed by: Trav Jefferson M.D. 06/10/2020 5:22 PM Dictated: 06/10/201718 Transcribed: 06/10/201718 CT angio neck with con CLINICAL HISTORY: Acute right hemispheric stroke COMPARISON STUDY: No previous studies for comparison. TECHNIQUE: CT angiography was performed from the aortic arch to the skull base. MIP imaging was performed. The patient was scanned in a dynamic helical fashion during intravenous administration of 116 cc of Optiray 320. A dose lowering technique was utilized adhering to the principles of ALARA. CT DOSE: Technique: CT angiogram of the carotid and vertebral arteries was obtained using intravenous contrast and 3-D reconstruction. NASCET criteria was utilized. Findings: The right carotid revealed no evidence of aneurysm and no evidence of dissection. There is no evidence of hemodynamic significant stenosis. Atheromatous calcifications are visualized in the region of the carotid siphon The left carotid revealed no evidence of hemodynamic significant stenosis. There is no evidence of aneurysm. There is no evidence of dissection. Atheromatous calcifications are visualized in the region of the carotid siphon. The right vertebral artery is dominant. There is no evidence of hemodynamically significant vertebral artery stenosis. The left vertebral artery originates from the aortic arch. 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 IMPRESSION: No evidence of hemodynamically significant carotid or vertebral artery stenosis. No evidence of dissection. ACT 112: Negative or not required by law. Electronically signed by: Trav Jefferson M.D. 06/10/2020 5:27 PM Dictated: 06/10/201721 Transcribed: 06/10/201721 CT angio head w con CLINICAL HISTORY: Acute right hemispheric stroke TECHNIQUE: CT angiography of the head was performed in a dynamic helical fashion during intravenous administration of 116 cc of Optiray 320. MIP imaging was performed. A dose lowering technique was utilized adhering to the principles of ALARA. CT DOSE: 1078.29 mGy.cm COMPARISON STUDY: No previous studies for comparison. FINDINGS: Incidental note is made of a right vertebral artery fenestration near the level of the foramen magnum. There is a right parietal vertex hyperdensity suspicious for a subacute infarct. There are no lesion suspicious for aneurysm. There are no major intracranial branch occlusions. The dural venous sinuses appear patent. There is subtle "luxury perfusion" in the region of the suspected subacute right parietal infarct. IMPRESSION: 1. No evidence of aneurysm 2. No evidence of major intracranial branch occlusion or stenosis 3. Subtle luxury perfusion in the region of the suspected subacute right parietal infarct ACT 112: Negative or not required by law. Electronically signed by: Trav Jefferson M.D. 06/10/2020 5:33 PM Dictated: 06/10/201726 Transcribed: 06/10/201726 [facility] Narrative I did evaluate the patient as noted above. The patient is presenting with strokelike symptoms which started about 8 days ago. She had 7 episodes of pain with weakness and shaking in her left arm leg and head yesterday. She had an episode prior to arrival. On exam she has no neurologic deficit except lorri ateral proximal limb weakness. She has good distal strength in both legs. There is no sensory deficit. Cranial nerves are intact. IV access was established. I did place an order for continuous cardiac monitoring. The monitor showed a paced rhythm with a rate of 61 bpm. I did order and personally review the patient's 12-lead EKG as described above. She has a paced rhythm without any obvious signs of ischemia. I did order and review the patient's blood work as noted in the electronic medical record. CBC and electrolytes are unremarkable. Creatinine is at baseline at 1.4. I did order a CT of the head and CT angiogram of the head and neck. I did review the images myself as well as the radiology report as described above. She appears to have a subacute infarct in the right parietal apex. I did discuss the test results with the patient. I did discuss case with Dr. Segal of neurology. She is on Eliquis and aspirin. He recommended loading her on a gram of Keppra. I did order a gram of IV Keppra. I did order a rapid Covid test. I did discuss the case with the hospitalist and family independence case manager. The patient is not a IV TPA candidate due to the timeframe of her symptoms. Impression & Plan Acute cerebrovascular accident, Anticoagulated, Seizure-like activity Discharge Plan Visit Data Chief Complaint: Illness Stated Complaint: ILLNESS ED Provider: Elmer Kramer Discharge Problem: Acute cerebrovascular accident, Anticoagulated, Seizure-like activity Patient Disposition: Being Evaluated by Hospitalist Forms Stand Alone Forms: My [facility] Prescriptions Prescriptions: No Action atorvastatin 40 mg tablet 40 mg PO QAM RF: 0 isosorbide mononitrate 30 mg tablet extended release 24 hr 30 mg PO QAM RF: 0 aspirin 81 mg Tablet,Delayed Release (Dr/Ec) 81 mg PO MOWEFR RF: 0 omeprazole 20 mg capsule,delayed release(DR/EC) 20 mg PO QAM RF: 0 lisinopril 5 mg tablet 5 mg PO QAM RF: 0 albuterol sulfate [Ventolin HFA] 90 mcg/actuation HFA aerosol inhaler 2 puff inhalation QID RF: 0 fluoxetine 20 mg capsule 20 mg PO QAM RF: 0 potassium chloride [Klor-Con M10] 10 mEq tablet,ER particles/crystals 10 meq PO QAM RF: 0 metoprolol tartrate 25 mg tablet 12.5 mg PO BID RF: 0 Probiotic 3 billion cell Capsule 3 mmu cells PO QAM RF: 0 docusate sodium 100 mg Capsule 100 mg PO BID RF: 0 furosemide 20 mg tablet 40 mg PO QAM RF: 0 diclofenac sodium 1 % gel 4 g TOPICAL QID RF: 0 magnesium oxide 400 mg magnesium Tablet 400 mg PO QAM RF: 0 Eliquis 2.5 mg tablet 2.5 mg PO BID 30 Days Qty: 60 RF: 0 oxycodone-acetaminophen 10-325 mg tablet 1 tab PO Q6H PRN (Reason: Pain) RF: 0 amiodarone 200 mg tablet 200 mg PO QAM RF: 0 Referrals Referrals: Steve Hooker MD [Primary Care Provider] -
[2020-06-10 14:36] LABS: Basophils # (auto) 0.02 K/uL (0-0.2); Basophils % (auto) 0.3 %; Eosinophils # (auto) 0.17 K/uL (0-0.5); Eosinophils % (auto) 2.7 %; Hematocrit (blood only) 40.4 % (37-47); Hemoglobin 12.9 g/dL (12.0-16.0); Immature Granulocytes # (auto) 0.01 K/uL (0.00-0.02); Immature Granulocytes % (auto) 0.2 %; Lymphocytes # (auto) 1.52 K/uL (1.2-3.4); Lymphocytes % (auto) 24.1 %; Mean Corpuscular Hemoglobin 28.4 pg (25-34); Mean Corpuscular Hgb Conc 31.9 g/dL (32-36); Mean Corpuscular Volume 88.8 fL (80-100); Mean Platelet Volume 10.9 fL (7.4-10.4); Monocytes # (auto) 0.51 K/uL (0.11-0.59); Monocytes % (auto) 8.1 %; Neutrophils # (auto) 4.09 K/uL (1.4-6.5); Neutrophils % (auto) 64.6 %; Platelet Count 200 K/uL (130-400); RDW Coefficient of Variation 15.4 % (11.5-14.5); RDW Standard Deviation 49.5 fL (36.4-46.3); Red Blood Count 4.55 M/uL (4.2-5.4); White Blood Count 6.32 K/uL (4.8-10.8)
[2020-06-10 14:47] LABS: INR 1.1 (0.9-1.1); Partial Thromboplastin Ratio 0.9; Partial Thromboplastin Time 25.6 Seconds (21.0-31.0); Prothrombin Time 11.3 Seconds (9.0-12.0)
[2020-06-10 15:19] LABS: Alanine Aminotransferase 21 U/L (12-78); Albumin Level 3.4 gm/dl (3.4-5.0); Alkaline Phosphatase 98 U/L (45-117); Aspartate Aminotransferase 23 U/L (15-37); BUN Creatinine Ratio 12.7 (10-20); Bilirubin,Total 0.4 mg/dl (0.2-1); Blood Urea Nitrogen 18 mg/dl (7-18); Calcium 9.2 mg/dl (8.5-10.1); Carbon Dioxide 27 mmol/L (21-32); Chloride 104 mmol/L (98-107); Creatinine Clr Calc Pharmacy 31.8 ml/min; Est GFR (African American) 39.2; Est GFR (Non-African American) 33.8; Globulin 3.4 gm/dl (2.5-4.0); Glucose 99 mg/dl (70-99); Magnesium 1.9 mg/dl (1.8-2.4); Potassium 4.5 mmol/L (3.5-5.1); Sodium 137 mmol/L (136-145); Total Protein 6.8 gm/dl (6.4-8.2); Troponin I < 0.015 ng/ml (0-0.045)
[2020-06-10] MEDS ORDERED: OPTIRAY 320 125ml IV ONE (17:08)
--- NOTE | 2020-06-10 17:23 | CT Scan Report ---
CT head/brain wo con CLINICAL HISTORY: Left arm and leg weakness. Suspected acute stroke. COMPARISON STUDY: Head CT dated 06/03/2020 TECHNIQUE: Axial CT of the brain is performed from the vertex to the skull base. IV contrast was not administered for this examination. A dose lowering technique was utilized adhering to the principles of ALARA. CT DOSE: FINDINGS: There is a right parietal apex hypodensity which was not present on the preceding examination. This l ikely represents a subacute infarct. An MRI could be obtained in follow-up to confirm this impression as deemed clinically necessary. There is no evidence of acute hemorrhage. There is no evidence of mi dline shift. No calvarial fractures are visualized. There are patchy white matter hypodensities likely on a small vessel basis. There is no evidence of pathologic ventricular dilatation. There is a polyp/retention cyst within the right sphenoid. IMPRESSION: 1. Interval development of a right parietal apex hypodensity, likely representing a subacute infarct. An MRI could be obtained in follow-up as deemed clinically necessary. 2. No evidence of acute hemorrhage. ACT 112: Negative or not required by law. Electronically signed by: Trav Jefferson M.D. 06/10/2020 5:22 PM
--- NOTE | 2020-06-10 17:28 | CT Scan Report ---
CT angio neck with con CLINICAL HISTORY: Acute right hemispheric stroke COMPARISON STUDY: No previous studies for comparison. TECHNIQUE: CT angiography was performed from the aortic arch to the skull base. MIP imaging was perfo rmed. The patient was scanned in a dynamic helical fashion during intravenous administration of 116 c c of Optiray 320. A dose lowering technique was utilized adhering to the principles of ALARA. CT DOSE: Technique: CT angiogram of the carotid and vertebral arteries was obtained using intravenous contrast and 3-D reconstruction. NASCET criteria was utilized. Findings: The right carotid revealed no evidence of aneurysm and no evidence of dissection. There is no evidenc e of hemodynamic significant stenosis. Atheromatous calcifications are visualized in the region of th e carotid siphon The left carotid revealed no evidence of hemodynamic significant stenosis. There is no evidence of an eurysm. There is no evidence of dissection. Atheromatous calcifications are visualized in the region of the carotid siphon. The right vertebral artery is dominant. There is no evidence of hemodynamically significant vertebral artery stenosis. The left vertebral artery originates from the aortic arch. There is a right vertebr al artery fenestration near the level the foramen magnum. IMPRESSION: No evidence of hemodynamically significant carotid or vertebral artery stenosis. No evidence of disse ction. ACT 112: Negative or not required by law. Electronically signed by: Trav Jefferson M.D. 06/10/2020 5:27 PM
--- NOTE | 2020-06-10 17:34 | CT Scan Report ---
CT angio head w con CLINICAL HISTORY: Acute right hemispheric stroke TECHNIQUE: CT angiography of the head was performed in a dynamic helical fashion during intravenous a dministration of 116 cc of Optiray 320. MIP imaging was performed. A dose lowering technique was util ized adhering to the principles of ALARA. CT DOSE: 1078.29 mGy.cm COMPARISON STUDY: No previous studies for comparison. FINDINGS: Incidental note is made of a right vertebral artery fenestration near the level of the foramen magnum . There is a right parietal vertex hyperdensity suspicious for a subacute infarct. There are no lesio n suspicious for aneurysm. There are no major intracranial branch occlusions. The dural venous sinuse s appear patent. There is subtle "luxury perfusion" in the region of the suspected subacute right par ietal infarct. IMPRESSION: 1. No evidence of aneurysm 2. No evidence of major intracranial branch occlusion or stenosis 3. Subtle luxury perfusion in the region of the suspected subacute right parietal infarct ACT 112: Negative or not required by law. Electronically signed by: Trav Jefferson M.D. 06/10/2020 5:33 PM
--- NOTE | 2020-06-10 17:41 | Emergency Department Note ---
History of Present Illness General Chief complaint: Illness Stated complaint: ILLNESS Time Seen by Provider: 06/10/20 13:55 Source: patient History of Present Illness Maximum Pain Intensity: 5 Home Medications Medication Instructions Recorded Confirmed Type Probiotic 3 mmu cells PO QAM 08/20/19 06/10/20 History albuterol sulfate [Ventolin HFA] 2 puff INHALATION QID 08/20/19 06/10/20 History aspirin 81 mg PO MOWEFR 08/20/19 06/10/20 History atorvastatin 40 mg PO QAM 08/20/19 06/10/20 History diclofenac sodium 4 g TOPICAL QID 08/20/19 06/10/20 History docusate sodium 100 mg PO BID 08/20/19 06/10/20 History fluoxetine 20 mg PO QAM 08/20/19 06/10/20 History furosemide 40 mg PO QAM 08/20/19 06/10/20 History isosorbide mononitrate 30 mg PO QAM 08/20/19 06/10/20 History lisinopril 5 mg PO QAM 08/20/19 06/10/20 History magnesium oxide 400 mg PO QAM 08/20/19 06/10/20 History metoprolol tartrate 12.5 mg PO BID 08/20/19 06/10/20 History omeprazole 20 mg PO QAM 08/20/19 06/10/20 History potassium chloride [Klor-Con M10] 10 meq PO QAM 08/20/19 06/10/20 History Eliquis 2.5 mg PO BID 30 Days #60 tab 08/25/19 06/10/20 Rx oxycodone-acetaminophen 1 tab PO Q6H PRN 11/13/19 06/10/20 History amiodarone 200 mg PO QAM 06/03/20 06/10/20 History Allergies Allergy/AdvReac Type Severity Reaction Status Date / Time metoclopramide Allergy Intermediate neuro Verified 06/10/20 14:49 complications adhesive Allergy Unknown ALLERGY TO Verified 06/10/20 14:49 TAPE naproxen [From Naprosyn] Allergy Unknown Verified 06/10/20 14:49 doxycycline AdvReac Mild n/v Verified 06/10/20 14:49 Past Med/Surg History Medical History CAD (coronary artery disease) "1997 - PTCA to RCA 2012 - cath that showed patent RCA and no further disease" Chronic back pain CKD stage 3 due to type 1 diabetes mellitus Diastolic CHF DM type 2 (diabetes mellitus, type 2) Dyslipidemia GERD (gastroesophageal reflux disease) History of nephrolithiasis Polymyalgia rheumatica Surgical History History of cystoscopy History of lithotripsy History of PTCA S/P appendectomy S/P cholecystectomy S/P hysterectomy Family History Aunt Breast cancer Mother Diabetes Coronary heart disease Father Silicosis Social History Smoking Status: Former smoker packs per day: 0.5; Years Smoked: 40; Second Hand Exposure: No; Hx Alcohol Use: No Hx Substance Use: No Preferred Language: Maltese Communication Ability: Unable Visual Impairment: Partially Limited Geophysics Scientist Required: No Beliefs That Will Affect Care: None marital status: / Current Living Situation: Alone Feels Safe at Home: Yes Assistive Devices: Walker Physical Exam Vital Signs Vital Signs - 24 hr 06/10/20 13:47 06/10/20 14:28 06/10/20 14:30 Temperature 36.2 C L Temperature Source Temporal Artery Scan Pulse Rate 119 H 60 60 Pulse Rate from SpO2 Sensor Respiratory Rate 20 17 16 Blood Pressure 173/91 H Blood Pressure Mean 118 Pulse Oximetry 94 Oxygen Delivery Method Room Air Room Air Room Air Sepsis Recent Fever Within 48 Hours No Sepsis New/Unexplained Change in Mental Status No Sepsis Action Taken by Nursing No Action Required 06/10/20 14:32 06/10/20 14:40 06/10/20 14:50 Temperature Temperature Source Pulse Rate 60 60 60 Pulse Rate from SpO2 Sensor 60 60 60 Respiratory Rate 15 15 16 Blood Pressure 181/95 H Blood Pressure Mean 129 Pulse Oximetry 98 97 94 Oxygen Delivery Method Room Air Room Air Room Air Sepsis Recent Fever Within 48 Hours Sepsis New/Unexplained Change in Mental Status Sepsis Action Taken by Nursing 06/10/20 15:00 06/10/20 15:10 06/10/20 15:19 Temperature Temperature Source Pulse Rate 60 60 66 Pulse Rate from SpO2 Sensor 60 60 66 Respiratory Rate 16 15 22 Blood Pressure 164/91 H Blood Pressure Mean 123 Pulse Oximetry 95 97 98 Oxygen Delivery Method Room Air Room Air Room Air Sepsis Recent Fever Within 48 Hours Sepsis New/Unexplained Change in Mental Status Sepsis Action Taken by Nursing 06/10/20 15:20 06/10/20 15:30 06/10/20 15:31 Temperature Temperature Source Pulse Rate 68 60 60 Pulse Rate from SpO2 Sensor 68 60 60 Respiratory Rate 16 13 14 Blood Pressure 167/93 H Blood Pressure Mean 125 Pulse Oximetry 97 97 97 Oxygen Delivery Method Room Air Room Air Room Air Sepsis Recent Fever Within 48 Hours Sepsis New/Unexplained Change in Mental Status Sepsis Action Taken by Nursing 06/10/20 15:40 06/10/20 15:50 06/10/20 16:00 Temperature Temperature Source Pulse Rate 60 60 104 H Pulse Rate from SpO2 Sensor 60 60 Respiratory Rate 13 12 14 Blood Pressure Blood Pressure Mean Pulse Oximetry 97 99 Oxygen Delivery Method Room Air Room Air Room Air Sepsis Recent Fever Within 48 Hours Sepsis New/Unexplained Change in Mental Status Sepsis Action Taken by Nursing 06/10/20 16:01 06/10/20 16:10 06/10/20 16:20 Temperature Temperature Source Pulse Rate 75 97 H Pulse Rate from SpO2 Sensor 74 60 73 Respiratory Rate 17 19 18 Blood Pressure 186/111 H Blood Pressure Mean 139 Pulse Oximetry 94 98 97 Oxygen Delivery Method Room Air Room Air Room Air Sepsis Recent Fever Within 48 Hours Sepsis New/Unexplained Change in Mental Status Sepsis Action Taken by Nursing 06/10/20 16:30 06/10/20 16:40 06/10/20 16:50 Temperature Temperature Source Pulse Rate 63 60 59 L Pulse Rate from SpO2 Sensor 63 60 60 Respiratory Rate 18 20 14 Blood Pressure Blood Pressure Mean Pulse Oximetry 99 99 98 Oxygen Delivery Method Room Air Room Air Room Air Sepsis Recent Fever Within 48 Hours Sepsis New/Unexplained Change in Mental Status Sepsis Action Taken by Nursing 06/10/20 17:00 06/10/20 17:01 Temperature Temperature Source Pulse Rate 60 60 Pulse Rate from SpO2 Sensor Respiratory Rate 15 15 Blood Pressure 200/91 H Blood Pressure Mean 105 Pulse Oximetry Oxygen Delivery Method Room Air Room Air Sepsis Recent Fever Within 48 Hours Sepsis New/Unexplained Change in Mental Status Sepsis Action Taken by Nursing Course Administered Medications Discontinued Medications Ioversol (Optiray 320 125ml) 116 ml IV ONCE ONE Stop: 06/10/20 17:09 Last Admin: 06/10/20 17:09 Dose: 116 ml Documented by: [id number] Medical Decision Making Laboratory Data Result diagrams: 06/10/20 14:19 06/10/20 14:19 Lab Results 06/10/20 06/10/20 06/10/20 Range/Units 14:19 14:19 14:19 WBC 6.32 (4.8-10.8) K/uL RBC 4.55 (4.2-5.4) M/uL Hgb 12.9 (12.0-16.0) g/dL Hct 40.4 (37-47) % MCV 88.8 (80-100) fL MCH 28.4 (25-34) pg MCHC 31.9 L (32-36) g/dL RDW Std Deviation 49.5 H (36.4-46.3) fL RDW Coeff of Tab 15.4 H (11.5-14.5) % Plt Count 200 (130-400) K/uL MPV 10.9 H (7.4-10.4) fL Immature Gran % (Auto) 0.2 % Neut % (Auto) 64.6 % Lymph % (Auto) 24.1 % [place] % (Auto) 8.1 % Eos % (Auto) 2.7 % Baso % (Auto) 0.3 % Neut # (Auto) 4.09 (1.4-6.5) K/uL Lymph # (Auto) 1.52 (1.2-3.4) K/uL [place] # (Auto) 0.51 (0.11-0.59) K/uL Eos # (Auto) 0.17 (0-0.5) K/uL Baso # (Auto) 0.02 (0-0.2) K/uL Immature Gran # (Auto) 0.01 (0.00-0.02) K/uL PT 11.3 (9.0-12.0) Seconds INR 1.1 (0.9-1.1) APTT 25.6 (21.0-31.0) Seconds PTT Ratio 0.9 Sodium 137 (136-145) mmol/L Potassium 4.5 (3.5-5.1) mmol/L Chloride 104 (98-107) mmol/L Carbon Dioxide 27 (21-32) mmol/L Anion Gap 6.0 (3-11) BUN 18 (7-18) mg/dl Creatinine 1.43 H (0.6-1.2) mg/dl Est Cr Clr Drug Dosing 31.8 ml/min Est GFR ( Amer) 39.2 Est GFR (Non-Af Amer) 33.8 BUN/Creatinine Ratio 12.7 (10-20) Glucose 99 (70-99) mg/dl Calcium 9.2 (8.5-10.1) mg/dl Magnesium 1.9 (1.8-2.4) mg/dl Total Bilirubin 0.4 (0.2-1) mg/dl AST 23 (15-37) U/L ALT 21 (12-78) U/L Alkaline Phosphatase 98 (45-117) U/L Troponin I < 0.015 (0-0.045) ng/ml Total Protein 6.8 (6.4-8.2) gm/dl Albumin 3.4 (3.4-5.0) gm/dl Globulin 3.4 (2.5-4.0) gm/dl Albumin/Globulin Ratio 1.0 (0.9-2) Specimen Hemolysis Imaging Data Radiologist's Impression: CT head/brain wo con CLINICAL HISTORY: Left arm and leg weakness. Suspected acute stroke. COMPARISON STUDY: Head CT dated 06/03/2020 TECHNIQUE: Axial CT of the brain is performed from the vertex to the skull base. IV contrast was not administered for this examination. A dose lowering technique was utilized adhering to the principles of ALARA. CT DOSE: FINDINGS: There is a right parietal apex hypodensity which was not present on the preceding examination. This likely represents a subacute infarct. An MRI could be obtained in follow-up to confirm this impression as deemed clinically necessary. There is no evidence of acute hemorrhage. There is no evidence of mi dline shift. No calvarial fractures are visualized. There are patchy white matter hypodensities likely on a small vessel basis. There is no evidence of pathologic ventricular dilatation. There is a polyp/retention cyst within the right sphenoid. IMPRESSION: 1. Interval development of a right parietal apex hypodensity, likely representing a subacute infarct. An MRI could be obtained in follow-up as deemed clinically necessary. 2. No evidence of acute hemorrhage. ACT 112: Negative or not required by law. Electronically signed by: Trav Jefferson M.D. 06/10/2020 5:22 PM Dictated: 06/10/201718 Transcribed: 06/10/201718 Discharge Plan Visit Data Chief Complaint: Illness Stated Complaint: ILLNESS ED Provider: Elmer Kramer Prescriptions Prescriptions: No Action atorvastatin 40 mg tablet 40 mg PO QAM RF: 0 isosorbide mononitrate 30 mg tablet extended release 24 hr 30 mg PO QAM RF: 0 aspirin 81 mg Tablet,Delayed Release (Dr/Ec) 81 mg PO MOWEFR RF: 0 omeprazole 20 mg capsule,delayed release(DR/EC) 20 mg PO QAM RF: 0 lisinopril 5 mg tablet 5 mg PO QAM RF: 0 albuterol sulfate [Ventolin HFA] 90 mcg/actuation HFA aerosol inhaler 2 puff inhalation QID RF: 0 fluoxetine 20 mg capsule 20 mg PO QAM RF: 0 potassium chloride [Klor-Con M10] 10 mEq tablet,ER particles/crystals 10 meq PO QAM RF: 0 metoprolol tartrate 25 mg tablet 12.5 mg PO BID RF: 0 Probiotic 3 billion cell Capsule 3 mmu cells PO QAM RF: 0 docusate sodium 100 mg Capsule 100 mg PO BID RF: 0 furosemide 20 mg tablet 40 mg PO QAM RF: 0 diclofenac sodium 1 % gel 4 g TOPICAL QID RF: 0 magnesium oxide 400 mg magnesium Tablet 400 mg PO QAM RF: 0 Eliquis 2.5 mg tablet 2.5 mg PO BID 30 Days Qty: 60 RF: 0 oxycodone-acetaminophen 10-325 mg tablet 1 tab PO Q6H PRN (Reason: Pain) RF: 0 amiodarone 200 mg tablet 200 mg PO QAM RF: 0
[2020-06-10] MEDS ORDERED: levETIRAcetam 1,000 MG in 0.9 % SODIUM CHLORIDE 100 ML IV STA (18:02)
--- NOTE | 2020-06-10 18:54 | History & Physical Report ---
Date of Service June 10, 2020 Assessment & Plan (1) Seizure-like activity: Episodes of shaking involving the left-sided extremities likely secondary to partial seizures Likely secondary to acute right parietal infarct Discussed with the neurologist and she has been started with intravenous Keppra Seizure precaution (2) Acute cerebrovascular accident: CT scan of the head on 03 June for a similar presentation was negative CT scan of the head today showed right parietal apex hypodensity likely representing a subacute infarct Has minimal weakness involving the left-sided extremities without any other symptoms and/or sequelae CTA of the head and neck have been unremarkable She does not have any problem with swallowing We will get MRI of the brain and echocardiogram She has been on Eliquis and aspirin and getting statin as well PT and OT evaluation (3) Paroxysmal atrial fibrillation: Rate is controlled Continue with current medications (4) Diastolic CHF: No evidence of CHF on chest x-ray We will continue the diuretics (5) CKD stage 3 due to type 1 diabetes mellitus: CKD seems to be stable (6) DM type 2 (diabetes mellitus, type 2): We will put her on sliding scale insulin coverage (7) CAD (coronary artery disease): No acute symptoms (8) HTN (hypertension): Remains on the upper side We will continue her current medications and maintain blood pressure towards the upper side (9) Chronic back pain: Has history of chronic back pain No signs of radiculopathy at this time Outpatient work-up (10) Polymyalgia rheumatica: Acute findings DVT prophylaxis Has been on Eliquis CODE STATUS Full Discussed with the daughter History of Present Illness Chief Complaint: Episodes of shaking involving the left-sided extremities Primary Care Provider: Steve Hooker MD She is an 85-year-old female significant past medical history of atrial fibrillation on anticoagulation, diastolic CHF, CKD stage III, type 2 diabetes, CAD, hyperlipidemia, hypertension, polymyalgia rheumatica and chronic back pain apparently has been complaining of shaking episodes involving the left-sided extremities more than 1 week. She has had pain involving the left lower extremity with shaking episode and was seen in the ER with 18 of this month. She has had CT of the head and ultrasound of the lower extremities which were unremarkable and she was sent home with an appointment with the primary care physician for outpatient work-up. She has had a few episodes of shaking involving the left-sided extremities and during one of the episode she suffered a fall without any significant injury or loss of consciousness. She has been having frequent episodes of shaking with last for about 2 to 3 minutes and this morning she has had 7 episodes of that kind without any loss of consciousness. She denies any visual symptoms, any nausea and/or vomiting, any chest pain or shortness of breath, and she does not have any significant weakness following any of the episodes. Her only associated symptoms where mild headache and numbness involving the left-sided extremities following the episode. Denies any significant weakness involving the left side extremities as well and she does not have any problem with swallowing or any facial asymmetry. Her CT scan of the head did show right parietal subacute/acute infarct and from that point she was admitted to telemetry unit for continuation of care with the diagnosis of seizure. Her COVID-19 test was negative. Allergies Allergy/AdvReac Type Severity Reaction Status Date / Time metoclopramide Allergy Intermediate neuro Verified 06/10/20 14:49 complications adhesive Allergy Unknown ALLERGY TO Verified 06/10/20 14:49 TAPE naproxen [From Naprosyn] Allergy Unknown Verified 06/10/20 14:49 doxycycline AdvReac Mild n/v Verified 06/10/20 14:49 Home Medications Medication Instructions Recorded Confirmed Type Probiotic 3 mmu cells PO QAM 08/20/19 06/10/20 History albuterol sulfate [Ventolin HFA] 2 puff INHALATION QID 08/20/19 06/10/20 History aspirin 81 mg PO MOWEFR 08/20/19 06/10/20 History atorvastatin 40 mg PO QAM 08/20/19 06/10/20 History diclofenac sodium 4 g TOPICAL QID 08/20/19 06/10/20 History docusate sodium 100 mg PO BID 08/20/19 06/10/20 History fluoxetine 20 mg PO QAM 08/20/19 06/10/20 History furosemide 40 mg PO QAM 08/20/19 06/10/20 History isosorbide mononitrate 30 mg PO QAM 08/20/19 06/10/20 History lisinopril 5 mg PO QAM 08/20/19 06/10/20 History magnesium oxide 400 mg PO QAM 08/20/19 06/10/20 History metoprolol tartrate 12.5 mg PO BID 08/20/19 06/10/20 History omeprazole 20 mg PO QAM 08/20/19 06/10/20 History potassium chloride [Klor-Con M10] 10 meq PO QAM 08/20/19 06/10/20 History Eliquis 2.5 mg PO BID 30 Days #60 tab 08/25/19 06/10/20 Rx oxycodone-acetaminophen 1 tab PO Q6H PRN 11/13/19 06/10/20 History amiodarone 200 mg PO QAM 06/03/20 06/10/20 History Past Med/Surg History Medical History (Updated 06/10/20 @ 18:06 by Elmer Kramer MD) CAD (coronary artery disease) "1996 - PTCA to RCA 2011 - cath that showed patent RCA and no further disease" Chronic back pain CKD stage 3 due to type 1 diabetes mellitus Diastolic CHF DM type 2 (diabetes mellitus, type 2) Dyslipidemia GERD (gastroesophageal reflux disease) History of nephrolithiasis Polymyalgia rheumatica Surgical History History of cystoscopy History of lithotripsy History of PTCA S/P appendectomy S/P cholecystectomy S/P hysterectomy Family History Aunt Breast cancer Mother Diabetes Coronary heart disease Father Silicosis Social History Smoking Status: Former smoker packs per day: 0.5; Years Smoked: 40; Second Hand Exposure: No; Hx Alcohol Use: No Hx Substance Use: No Preferred Language: Occitan Communication Ability: Unable Visual Impairment: Partially Limited Offal Trimmer Required: No Beliefs That Will Affect Care: None marital status: / Current Living Situation: Alone Feels Safe at Home: Yes Assistive Devices: Walker Review of Systems Review of Systems: All systems reviewed & are unremarkable except as noted in HPI & below Physical Exam Physical Exam: Lying in bed comfortably but very anxious Constitutional: well developed, well nourished and + obese; no acute distress and not ill appearing Eyes: PERRL, conjunctivae normal, anicteric sclerae ENMT: external ear and nose normal, oropharynx normal Neck: trachea midline, no thyromegaly Respiratory: no respiratory distress Auscultation: lungs clear to auscultation bilaterally Cardiovascular: Rate/Rhythm: + irregularly irregular Heart Sounds: no murmur Extremities: + edema (1+ edema bilaterally) Gastrointestinal (Abdomen): Inspection/Auscultation: abdomen normal to inspection and normal bowel sounds; abdomen not distended Percuss ion/Palpation: abdomen soft; abdomen nontender Musculoskeletal: Moderate arthritis involving the left knee Neurologic: Alert, awake and oriented x3. Minimal weakness involving the left sided extremities and possible decreased sensation involving left-sided extremities mostly the leg. Psychiatric: A+Ox3, euthymic affect Lymphatic: no cervical or axillary lymphadenopathy Results & Data Results & Data ([facility]) Vital Signs (Past 12 Hours) Vital Signs Temp Pulse Resp BP Pulse Ox 06/10/20 17:01 60 15 200/91 H 06/10/20 17:00 60 15 06/10/20 16:50 59 L 14 98 06/10/20 16:40 60 20 99 06/10/20 16:30 63 18 99 06/10/20 16:20 97 H 18 97 06/10/20 16:10 19 98 06/10/20 16:01 75 17 186/111 H 94 06/10/20 16:00 104 H 14 06/10/20 15:50 60 12 99 06/10/20 15:40 60 13 97 06/10/20 15:31 60 14 97 06/10/20 15:30 60 13 167/93 H 97 06/10/20 15:20 68 16 97 06/10/20 15:19 66 22 164/91 H 98 06/10/20 15:10 60 15 97 06/10/20 15:00 60 16 95 06/10/20 14:50 60 16 94 06/10/20 14:40 60 15 97 06/10/20 14:32 60 15 181/95 H 98 06/10/20 14:30 60 16 06/10/20 14:28 60 17 06/10/20 13:47 36.2 C L 119 H 20 173/91 H 94 Laboratory Results Short CBC 06/10/20 Range/Units 14:19 WBC 6.32 (4.8-10.8) K/uL Hgb 12.9 (12.0-16.0) g/dL Hct 40.4 (37-47) % Plt Count 200 (130-400) K/uL BMP 06/10/20 14:19 Sodium 137 Potassium 4.5 Chloride 104 Carbon Dioxide 27 BUN 18 Creatinine 1.43 H Glucose 99 Calcium 9.2 Cardiac Enzymes 06/10/20 Range/Units 14:19 Troponin I < 0.015 (0-0.045) ng/ml Liver Function 06/10/20 Range/Units 14:19 Total Bilirubin 0.4 (0.2-1) mg/dl AST 23 (15-37) U/L ALT 21 (12-78) U/L Alkaline Phosphatase 98 (45-117) U/L Albumin 3.4 (3.4-5.0) gm/dl
[2020-06-10] MEDS ORDERED: lisinopril 5 MG TAB PO ONE (19:24)
[2020-06-10] MEDS ORDERED: levETIRAcetam 500 MG in 0.9 % SODIUM CHLORIDE 100 ML IV SCH (21:00)
[2020-06-10] MEDS ORDERED: oxyCODONE/ACETAMINOPHEN 10-325 TAB ONE (21:05)
[2020-06-10] MEDS: METOPROLOL TARTRATE 25 MG TAB PO SCH (23:18)
[2020-06-10] MEDS: DOCUSATE SODIUM 100 MG CAP PO SCH (23:18)
[2020-06-10] MEDS: ASPIRIN 81 MG ECTAB PO SCH (23:18)
[2020-06-10] MEDS: APIXABAN 2.5 MG TAB PO SCH (23:18)
[2020-06-10] MEDS: DICLOFENAC SOD 1% GEL 100 GM TUBE EXT SCH (23:21)
[2020-06-10] MEDS: ALBUTEROL HFA 8 GM INHALER INH SCH (23:31)
[2020-06-11] MEDS ORDERED: PERFLUTREN LIPID MICROSPHERE (DEFINITY) IV ONE (07:38)
[2020-06-11] MEDS: ALBUTEROL HFA 8 GM INHALER INH SCH ×4 (07:49→19:55)
[2020-06-11] MEDS: DOCUSATE SODIUM 100 MG CAP PO SCH ×2 (08:03→19:53)
[2020-06-11] MEDS: METOPROLOL TARTRATE 25 MG TAB PO SCH ×2 (08:03→19:54)
[2020-06-11] MEDS: FUROSEMIDE 40 MG TAB PO SCH (08:04)
[2020-06-11] MEDS: ISOSORBIDE MONO EXTENDED REL 30 MG TABCR PO SCH (08:04)
[2020-06-11] MEDS: APIXABAN 2.5 MG TAB PO SCH ×2 (08:04→19:54)
[2020-06-11] MEDS: FLUoxetine HCL 20 MG CAP PO SCH (08:05)
[2020-06-11] MEDS: lisinopril 5 MG TAB PO SCH (08:05)
[2020-06-11] MEDS: AMIODARONE 200 MG TAB PO SCH (08:05)
[2020-06-11] MEDS: POTASSIUM CHLORIDE 10 MEQ TABCR PO SCH (08:05)
[2020-06-11] MEDS: ADVANCED PROBIOTIC 1250 MG CAPSULE PO SCH (08:06)
[2020-06-11] MEDS: MAGNESIUM OXIDE 400 MG TAB PO SCH (08:06)
[2020-06-11] MEDS: ATORVASTATIN 40 MG TAB PO SCH (08:06)
[2020-06-11] MEDS: PANTOprazole 40 MG TAB PO SCH (08:07)
[2020-06-11] MEDS: levETIRAcetam 500 MG in 0.9 % SODIUM CHLORIDE 100 ML IV SCH ×2 (08:07→21:15)
[2020-06-11 09:09] LABS: Basophils # (auto) 0.01 K/uL (0-0.2); Basophils % (auto) 0.2 %; Eosinophils # (auto) 0.13 K/uL (0-0.5); Hematocrit (blood only) 38.8 % (37-47); Hemoglobin 12.3 g/dL (12.0-16.0); Immature Granulocytes # (auto) 0.01 K/uL (0.00-0.02); Immature Granulocytes % (auto) 0.2 %; Lymphocytes # (auto) 1.09 K/uL (1.2-3.4); Lymphocytes % (auto) 25.5 %; Mean Corpuscular Hemoglobin 28.2 pg (25-34); Mean Corpuscular Hgb Conc 31.7 g/dL (32-36); Mean Platelet Volume 10.6 fL (7.4-10.4); Monocytes # (auto) 0.27 K/uL (0.11-0.59); Monocytes % (auto) 6.3 %; Neutrophils # (auto) 2.76 K/uL (1.4-6.5); Neutrophils % (auto) 64.8 %; Platelet Count 193 K/uL (130-400); RDW Coefficient of Variation 15.4 % (11.5-14.5); RDW Standard Deviation 49.5 fL (36.4-46.3); Red Blood Count 4.36 M/uL (4.2-5.4); White Blood Count 4.27 K/uL (4.8-10.8)
--- NOTE | 2020-06-11 09:20 | Hospitalist Progress Note ---
Date of Service June 11, 2020 Assessment & Plan (1) Seizure-like activity: Episodes of shaking involving the left-sided extremities likely secondary to partial seizures Likely secondary to acute right parietal infarct seen on CT head Continue Cyril Appreciate neurologist recommendation Get EEG Follow-up MRI (2) Acute cerebrovascular accident: CT scan of the head on 03 June 2020 for a similar presentation was negative CT scan of the head today showed right parietal apex hypodensity likely representing a subacute infarct Has minimal weakness involving the left-sided extremities CTA of the head and neck have been unremarkable We will follow-up MRI findings Get MRI brain with contrast We will follow-up neurologist recommendations Continue aspirin, Eliquis and statin PT/OT Echo result noted (3) Paroxysmal atrial fibrillation: Rate is controlled Continue with current medications (4) Diastolic CHF: No evidence of CHF on chest x-ray Continue the diuretics (5) CKD stage 3 due to type 1 diabetes mellitus: Stable (6) DM type 2 (diabetes mellitus, type 2): Continue insulin coverage per sliding scale (7) CAD (coronary artery disease): Continue home meds (8) HTN (hypertension): Controlled (9) Chronic back pain: Has history of chronic back pain No signs of radiculopathy at this time Outpatient work-up (10) Polymyalgia rheumatica: DVT prophylaxis On Eliquis CODE STATUS Full Admission and Anticipated Discharge Date Admission Date: June 10, 2020 Subjective Patient seen and examined Still reports mild left lower leg weakness. Reports left extremity facial numbness has resolved Has not had any more shaking episodes since admission Denies any headache, dizziness Denies any slurred speech Denies any difficulty swallowing or painful swallowing Denied any loss of consciousness Review of Systems Review of Systems: All systems reviewed & are unremarkable except as noted in Subjective Physical Exam Constitutional: + well hydrated and + obese; no acute distress Elderly woman Eyes: PERRL, conjunctivae normal, anicteric sclerae ENMT: external ear and nose normal, oropharynx normal Respiratory: normal respiratory effort, lungs clear to auscultation Cardiovascular: Rate/Rhythm: regular rate and regular rhythm S1-S2 Gastrointestinal (Abdomen): normal bowel sounds, soft, nontender, no hepatosplenomegaly Musculoskeletal: No pedal edema Neurologic: PERRL Normal accommodation. No dysdiadochokinesia Sensation intact on face and extremities Strength appears normal in all extremities Psychiatric: A+Ox3, euthymic affect Results & Data Results & Data ([facility]) Vital Signs (Past 12 Hours) Vital Signs Temp Pulse Pulse Resp BP BP Pulse Ox 06/11/20 07:55 36.6 C 60 18 147/82 H 96 06/11/20 07:15 61 06/11/20 04:23 36.5 C 61 18 119/78 93 06/10/20 23:34 60 16 96 06/10/20 21:50 36.6 C 60 20 154/79 H 96 06/10/20 21:37 61 19 177/89 H 06/10/20 21:30 65 19 97 Laboratory Results Laboratory Results - last 24 hr 06/10/20 06/11/20 06/11/20 Unknown 08:30 08:30 WBC 4.27 L RBC 4.36 Hgb 12.3 Hct 38.8 MCV 89.0 MCH 28.2 MCHC 31.7 L RDW Std Deviation 49.5 H RDW Coeff of Tab 15.4 H Plt Count 193 MPV 10.6 H Immature Gran % (Auto) 0.2 Neut % (Auto) 64.8 Lymph % (Auto) 25.5 [place] % (Auto) 6.3 Eos % (Auto) 3.0 Baso % (Auto) 0.2 Neut # (Auto) 2.76 Lymph # (Auto) 1.09 L [place] # (Auto) 0.27 Eos # (Auto) 0.13 Baso # (Auto) 0.01 Immature Gran # (Auto) 0.01 Sodium 139 Potassium 4.0 Chloride 105 Carbon Dioxide 29 Anion Gap 6.0 BUN 17 Creatinine 1.39 H Est Cr Clr Drug Dosing 32.1 Est GFR ( Amer) 40.5 Est GFR (Non-Af Amer) 35.0 BUN/Creatinine Ratio 12.0 Glucose 113 H Calcium 9.5 Phosphorus 3.6 Magnesium 1.7 L Triglycerides 101 Cholesterol 157 LDL Cholesterol, Calc 63 VLDL Cholesterol, Calc 20 HDL Cholesterol 74 Cholesterol/HDL Ratio 2 SARS-CoV-2 Ag (Rapid) Negative Diagnostic Findings CT Head There is a right parietal apex hypodensity which was not present on the pr eceding examination. This likely represents a subacute infarct. An MRI could be obtained in follow-up to confirm this impression as deemed clinically necessary. There is no evidence of acute hemorrhage. There is no evidence of midline shift. No calvarial fractures are visualized. There are patchy white matter hypodensities likely on a small vessel basis. There is no evidence of pathologic ventricular dilatation. There is a polyp/retention cyst within the right sphenoid. IMPRESSION: 1. Interval development of a right parietal apex hypodensity, likely representing a subacute infarct. An MRI could be obtained in follow-up as deemed clinically necessary. 2. No evidence of acute hemorrhage.
[2020-06-11 09:37] LABS: Calcium 9.5 mg/dl (8.5-10.1); Creatinine Clr Calc Pharmacy 32.1 ml/min; Est GFR (African American) 40.5; Magnesium 1.7 mg/dl (1.8-2.4); Phosphorus 3.6 mg/dl (2.5-4.9)
[2020-06-11] MEDS: DICLOFENAC SOD 1% GEL 100 GM TUBE EXT SCH ×4 (10:57→19:55)
--- NOTE | 2020-06-11 13:05 | Consultation Report ---
DATE OF CONSULTATION: 06/11/2020 NEUROLOGY CONSULTATION NOTE CHIEF COMPLAINT: Involuntary jerking of the left upper and lower extremity. HISTORY OF PRESENT ILLNESS: An 85-year-old woman with a history of atrial fibrillation on Eliquis, diastolic congestive heart failure, chronic kidney disease stage III, type 2 diabetes, coronary artery disease, hyperlipidemia, and hypertension, presenting to the Emergency Department yesterday for shaking episodes involving the left arm and the left leg. These episodes have been going on for about 1 week. She also noted having pain in the left leg with shaking and was seen in the ER on June 03 of this month. At that time, she did have a head CT noncontrast as well as an ultrasound of the lower extremities. There were no acute findings noted on the CT of the head. There was no evidence of a venous clot. The patient noted having one shaking episode involving the left upper and lower extremity, which caused her to fall without any loss of consciousness. She has been having frequent episodes of shaking that last anywhere from 2-3 minutes and this morning, she had an episode lasting for almost several minutes. None of these episodes involve a loss of consciousness. She did note having a mild headache and numbness involving the left upper and lower extremity with the episode. She denies any significant weakness involving the left side. She had no dysphagia or facial asymmetry. A CT head noncontrast was performed in the ER upon arrival and showed a hypodensity in the right parietal lobe or MCA distribution concerning for a subacute to acute ischemic stroke. COVID testing was negative. Neurology was consulted upon admission, patient was admitted for further stroke evaluation and loaded with [facility] for concern for symptomatic seizures. ALLERGIES: INCLUDE METOCLOPRAMIDE, ADHESIVE TAPE, NAPROXEN, DOXYCYCLINE. HOME MEDICATIONS: Probiotic, albuterol, aspirin 81 mg daily, atorvastatin 40 mg daily, diclofenac, Colace, fluoxetine 20 mg daily, Lasix 40 mg in the morning, isosorbide mononitrate, lisinopril, magnesium oxide, metoprolol, omeprazole, potassium, Eliquis 2.5 mg twice daily, oxycodone as needed, amiodarone 200 mg in the morning. PAST MEDICAL HISTORY: Coronary artery disease status post stent, chronic back pain, chronic kidney disease stage III, type 1 diabetes, diastolic heart failure, gastroesophageal reflux disease, nephrolithiasis, polymyalgia rheumatica. PAST SURGICAL HISTORY: Cystoscopy, lithotripsy, PTCA, appendectomy, cholecystectomy, hysterectomy. FAMILY HISTORY: Her aunt has breast cancer. Her mother is and had diabetes and coronary artery disease. Her father is and had scoliosis. SOCIAL HISTORY: She is a former smoker. She has [id number] smoking history and smoked half a pack a day. She denies any alcohol. She is . She uses a walker. REVIEW OF SYSTEMS: All systems was reviewed and unremarkable except as noted above in the HPI. PHYSICAL EXAMINATION: VITAL SIGNS: Blood pressure 147/82, pulse is 60, respiratory rate is 18, temperature is 36.6 degrees Celsius, oxygen saturation is 96% on room air. GENERAL: The patient appears normally developed, appears stated age, no distress. Obese woman. HEENT: Face is normocephalic and atraumatic. Normal conjunctivae. NECK: Supple. LUNGS: Respiratory effort is normal. CARDIOVASCULAR: Normal cardiac pulses. ABDOMEN: Nondistended. SKIN: No skin rash. PSYCHIATRIC: Normal mood and normal affect. NEUROLOGIC: She is awake, alert and oriented to person, place and time. Her attention is normal. Her knowledge is appropriate. Comprehension is intact and she can repeat. Her speech is clear. Eyes are midline. Extraocular muscles are intact. Pupils are symmetric. Facial sensation is intact. Chronic left facial droop. Intact hearing. Palate is symmetric. Shoulder shrug is normal. Tongue is midline. Gait deferred. No ataxia with [id number] testing, no tremor or myoclonic jerks. Sensation is intact to light touch. Muscle tone is normal. Motor strength testing shows intact strength in the upper and lower extremities with some give way weakness in both legs, no ankle clonus, negative Malachi sign. DIAGNOSTIC TESTING AND LABORATORY VALUES: WBC 4.27, hemoglobin 12.3, platelet count is 193. INR is 1.1. Sodium is 139, potassium 4.0, chloride is 105, carbon dioxide 29, BUN is 17, creatinine 1.39, glucose is 113, magnesium is 1.7, AST and ALT are normal, alkaline phosphatase is normal. Troponin is negative. Triglycerides are 101. LDL cholesterol 63, HDL cholesterol 74. Urinalysis on 06/03/2020 showed 2+ leukocyte esterase and calcium oxalate crystals were present. Cardiac echocardiogram performed this morning, the ejection fraction was 60-65% with no evidence of a cardiac thrombus. IMAGING: Head CT noncontrast performed on 06/03/2020 showed no acute intracranial findings. Head CT noncontrast on 06/10/2020 showed interval development of a right parietal apex hypodensity likely representing a subacute infarct. No evidence of acute hemorrhage. Head and neck CTA performed on 06/10/2020 showed no evidence of an aneurysm. There was no evidence of major intracranial branch occlusion or stenosis. There was a subtle luxury perfusion in the region of the suspected subacute right parietal infarct. There was no evidence of hemodynamically significant carotid or vertebral artery stenosis. No evidence of a dissection. 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 Head and neck CTA showed no evidence of any high grade stenosis or large vessel occlusion. The appearance and location of the stroke would support an embolic etiology. I would recommend switching her NOAC (Eliquis) to Coumadin. I believe the patient would benefit from a Cardiology consultation particularly weighing in on the consideration of switching to Coumadin . In regards to presumed symptomatic seizures likely due to the subacute ischemic stroke, I agree with continuing Keppra at a dose of 500 mg twice daily. If the episodes persist, may need to increase Keppra as tolerated and may need to consider an ambulatory EEG. The patient will require Neurology followup in 8 weeks after discharge. CHELLED
--- NOTE | 2020-06-11 13:25 | Electrocardiogram Report ---
Test Reason : Blood Pressure : / mmHG Vent. Rate : 061 BPM Atrial Rate : 061 BPM P-R Int : 242 ms QRS Dur : 076 ms QT Int : 432 ms P-R-T Axes : 065 029 042 degrees QTc Int : 434 ms Poor data quality, interpretation may be adversely affected Atrial-paced rhythm with prolonged AV conduction Low voltage QRS Poor R wave progression, consider anterior IL vs. lead placement vs. LVH Abnormal ECG When compared with ECG of 03-JUN-2020 16:09, Minimal criteria for Anterior infarct are now Present Confirmed by Huey Gibbs ([id number]) on 06/11/2020 1:25:22 PM Referred By: REFERRED SELF Confirmed By:Huey Gibbs
--- NOTE | 2020-06-11 14:13 | Magnetic Resonance Report ---
MRI OF THE BRAIN WITHOUT CONTRAST CLINICAL HISTORY: Acute stroke. COMPARISON STUDY: Head CT and CTA of the head June 10, 2020. TECHNIQUE: Utilizing a 1.5 Juanis magnet and dedicated coil, multiplanar, multiecho imaging of the bra in was performed without IV contrast. FINDINGS: There are no foci of restricted diffusion to suggest acute infarct. No acute intracranial h emorrhage is present. Note is made of moderate white matter T2 hyperintensity within the right pariet al lobe which corresponds to the finding on head CT and CTA of the head of June 10, 2020. Cortex appears preserved. Calvarial signal is normal. Mucous retention cyst within the sinuses are noted. Ve ntricular system is unremarkable. Basal cisterns are patent. There are no extra axial collections. Fl ow-voids for the major intracranial vessels are present. No intracranial masses are identified on thi s unenhanced examination. IMPRESSION: 1. No evidence for acute infarction. 2. Moderate white matter T2 hyperintensity within the right parietal lobe which corresponds to the fi nding on head CT and CTA of the head of June 10, 2020. Preserved cortex. This may reflect a subac demetrius infarct. However, the MR appearance is nonspecific and other etiologies such as an infectious pro cess with cerebritis is within the differential. Short-term follow-up MRI of the brain with and witho ut contrast is recommended. ACT 112: Negative or not required by law. Electronically signed by: Hardik Fernandez M.D. 06/11/2020 2:12 PM
--- NOTE | 2020-06-11 15:30 | Neurology Progress Note ---
Date of Service June 11, 2020 Assessment & Plan Admission and Anticipated Discharge Date Admission Date: June 10, 2020 Subjective MRI brain completed. Lesion in right parietal lobe shows T2 and FLAIR hyperintensity without diffusion restriction. This would be atypical for acute embolic stroke given the CT head findings on 06/03. Differential diagnosis certainly includes signal changes secondary to recurrent seizure given the clinical history. - Recommend to continue home Eliquis for secondary stroke prevention. - Recommend MRI brain with contrast - Recommend Routine EEG. Discussed with sound effects technician scientific publications editor. - Continue Keppra 500 mg twice daily - Please check a CK level. - Seizure precautions - Neurology will continue to follow. Results & Data ([facility]) Vital Signs (Past 12 Hours) Vital Signs Temp Pulse Pulse Resp BP Pulse Ox 06/11/20 12:52 36.7 C 61 18 103/61 95 06/11/20 11:03 65 14 96 06/11/20 07:55 36.6 C 60 18 147/82 H 96 06/11/20 07:15 61 06/11/20 04:23 36.5 C 61 18 119/78 93
[2020-06-11] MEDS ORDERED: MAGNESIUM SULFATE / D5W 1 GM/100 ML BAG IV ONE (15:45)
[2020-06-11 16:39] LABS: C Reactive Protein 0.34 mg/dl (0-0.29)
[2020-06-11] MEDS: oxyCODONE/ACETAMINOPHEN 10-325 TAB PO PRN (19:51)
[2020-06-12] MEDS: ALBUTEROL HFA 8 GM INHALER INH SCH ×4 (07:02→18:31)
[2020-06-12 07:41] LABS: Hemoglobin 11.8 g/dL (12.0-16.0); Mean Corpuscular Hemoglobin 28.6 pg (25-34); Mean Corpuscular Hgb Conc 32.8 g/dL (32-36); Mean Corpuscular Volume 87.4 fL (80-100); Platelet Count 192 K/uL (130-400); RDW Coefficient of Variation 15.6 % (11.5-14.5); RDW Standard Deviation 50.4 fL (36.4-46.3); Red Blood Count 4.12 M/uL (4.2-5.4); White Blood Count 6.16 K/uL (4.8-10.8)
[2020-06-12 08:01] LABS: BUN Creatinine Ratio 15.2 (10-20); Calcium 9.5 mg/dl (8.5-10.1); Creatinine Clr Calc Pharmacy 30.7 ml/min; Est GFR (African American) 38.5; Est GFR (Non-African American) 33.2
[2020-06-12] MEDS: levETIRAcetam 500 MG in 0.9 % SODIUM CHLORIDE 100 ML IV SCH (08:40)
[2020-06-12] MEDS: AMIODARONE 200 MG TAB PO SCH (08:41)
[2020-06-12] MEDS: MAGNESIUM OXIDE 400 MG TAB PO SCH (08:41)
[2020-06-12] MEDS: PANTOprazole 40 MG TAB PO SCH (08:41)
[2020-06-12] MEDS: ATORVASTATIN 40 MG TAB PO SCH (08:41)
[2020-06-12] MEDS: APIXABAN 2.5 MG TAB PO SCH ×2 (08:41→20:44)
[2020-06-12] MEDS: DOCUSATE SODIUM 100 MG CAP PO SCH ×2 (08:41→20:44)
[2020-06-12] MEDS: lisinopril 5 MG TAB PO SCH (08:41)
[2020-06-12] MEDS: FLUoxetine HCL 20 MG CAP PO SCH (08:41)
[2020-06-12] MEDS: ISOSORBIDE MONO EXTENDED REL 30 MG TABCR PO SCH (08:41)
[2020-06-12] MEDS: FUROSEMIDE 40 MG TAB PO SCH (08:41)
[2020-06-12] MEDS: POTASSIUM CHLORIDE 10 MEQ TABCR PO SCH (08:41)
[2020-06-12] MEDS: ADVANCED PROBIOTIC 1250 MG CAPSULE PO SCH (08:41)
[2020-06-12] MEDS: METOPROLOL TARTRATE 25 MG TAB PO SCH ×2 (08:42→20:44)
[2020-06-12] MEDS: DICLOFENAC SOD 1% GEL 100 GM TUBE EXT SCH ×4 (08:42→20:45)
[2020-06-12] MEDS: oxyCODONE/ACETAMINOPHEN 10-325 TAB PO PRN ×2 (08:45→16:33)
--- NOTE | 2020-06-12 10:44 | Hospitalist Progress Note ---
Date of Service June 12, 2020 Assessment & Plan (1) Seizure-like activity: Episodes of shaking involving the left-sided extremities likely secondary to partial seizures EEG routine this morning did not show epileptiform activity Neurologist recommendations appreciated Continue asael (2) Acute cerebrovascular accident: CT scan of the head on 03 June 2020 for a similar presentation was negative CT scan of the head today showed right parietal apex hypodensity likely representing a subacute infarct Has minimal weakness involving the left-sided extremities CTA of the head and neck have been unremarkable MRI brain w/o co showed T2 white matter lesion in right parietal lobe Discussed with neurologist. Recommended MRI brain w co for better evaluation PT/OT evaluation noted. Patient lives alone and will need home care CM to arrange for that tomorrow Continue aspirin, Eliquis and statin Echo result noted (3) Paroxysmal atrial fibrillation: Rate is controlled Continue with current medications (4) Diastolic CHF: No evidence of CHF on chest x-ray Continue the diuretics (5) CKD stage 3 due to type 1 diabetes mellitus: Stable (6) DM type 2 (diabetes mellitus, type 2): Continue insulin coverage per sliding scale (7) CAD (coronary artery disease): Continue home meds (8) HTN (hypertension): Controlled (9) Chronic back pain: Has history of chronic back pain No signs of radiculopathy at this time Outpatient work-up (10) Polymyalgia rheumatica: DVT prophylaxis On Eliquis Bowel regimen for constipation CODE STATUS Full Admission and Anticipated Discharge Date Admission Date: June 10, 2020 Subjective Patient seen and examined Patient has not had any more shaking episodes since admission. She does report mild weakness in the legs Patient also reports constipation today. Denies nausea, vomiting, abdominal pain, anorexia Review of Systems Review of Systems: All systems reviewed & are unremarkable except as noted in Subjective Physical Exam Constitutional: + well hydrated and + obese; no acute distress Eyes: PERRL, conjunctivae normal, anicteric sclerae ENMT: external ear and nose normal, oropharynx normal Respiratory: normal respiratory effort, lungs clear to auscultation Cardiovascular: Rate/Rhythm: regular rate and regular rhythm S1-S2 Gastrointestinal (Abdomen): normal bowel sounds, soft, nontender, no hepatosplenomegaly Musculoskeletal: no cyanosis or clubbing, extremities motor strength 5/5 Neurologic: PERRL, EOMI, accommodation nl, no face palsy, no dysarthria Sensation intact on face and extremities Strength appears normal in all extremities Psychiatric: A+Ox3, euthymic affect Results & Data Results & Data ([facility]) Vital Signs (Past 12 Hours) Vital Signs Temp Pulse Pulse Resp BP BP Pulse Ox 06/12/20 08:05 36.5 C 60 18 137/81 95 06/12/20 07:03 80 16 95 06/12/20 04:05 36.5 C 79 18 144/80 H 96 06/11/20 23:40 36.4 C L 65 16 135/71 97 Laboratory Results Laboratory Results - last 24 hr 06/11/20 06/11/20 06/12/20 15:45 15:45 07:26 WBC 6.16 RBC 4.12 L Hgb 11.8 L Hct 36.0 L MCV 87.4 MCH 28.6 MCHC 32.8 RDW Std Deviation 50.4 H RDW Coeff of Tab 15.6 H Plt Count 192 MPV 10.0 ESR 9 Sodium Potassium Chloride Carbon Dioxide Anion Gap BUN Creatinine Est Cr Clr Drug Dosing Est GFR ( Amer) Est GFR (Non-Af Amer) BUN/Creatinine Ratio Glucose Calcium Total Creatine Kinase 63 C-Reactive Protein 0.34 H 06/12/20 07:26 WBC RBC Hgb Hct MCV MCH MCHC RDW Std Deviation RDW Coeff of Tab Plt Count MPV ESR Sodium 140 Potassium 4.0 Chloride 104 Carbon Dioxide 31 Anion Gap 5.0 BUN 22 H Creatinine 1.45 H Est Cr Clr Drug Dosing 30.7 Est GFR ( Amer) 38.5 Est GFR (Non-Af Amer) 33.2 BUN/Creatinine Ratio 15.2 Glucose 92 Calcium 9.5 Total Creatine Kinase C-Reactive Protein Diagnostic Findings MRI Brain w/co There are no foci of restricted diffusion to suggest acute infarct. No acute intracranial hemorrhage is present. Note is made of moderate white matter T2 hyperintensity within the right parietal lobe which corresponds to the finding on head CT and CTA of the head of June 10, 2020. Cortex appears preserved. Calvarial signal is normal. Mucous retention cyst within the sinuses are noted. Ventricular system is unremarkable. Basal cisterns are patent. There are no extra axial collections. Flow-voids for the major intracranial vessels are present. No intracranial masses are identified on this unenhanced examination. IMPRESSION: 1. No evidence for acute infarction. 2. Moderate white matter T2 hyperintensity within the right parietal lobe which corresponds to the finding on head CT and CTA of the head of June 10, 2020. Preserved cortex. This may reflect a subacute infarct. However, the MR appearance is nonspecific and other etiologies such as an infectious process with cerebritis is within the differential. Short-term follow-up MRI of the brain with and without contrast is recommended.
--- NOTE | 2020-06-12 10:48 | Electroencephalogram ---
EEG Procedure Note Date of Service June 12, 2020 Start / End Times Start Time: 10:01 End Time: 10:21 Referring Physician David Raymundo, DO History An 85 year old woman admitted with presumed focal seizures from a right parietal lesion. EEG performed for evaluation of epileptiform activity. Home Medication List Medication Instructions Recorded Confirmed Type Probiotic 3 mmu cells PO QAM 08/20/19 06/10/20 History albuterol sulfate [Ventolin HFA] 2 puff INHALATION QID 08/20/19 06/10/20 History aspirin 81 mg PO MOWEFR 08/20/19 06/10/20 History atorvastatin 40 mg PO QAM 08/20/19 06/10/20 History diclofenac sodium 4 g TOPICAL QID 08/20/19 06/10/20 History docusate sodium 100 mg PO BID 08/20/19 06/10/20 History fluoxetine 20 mg PO QAM 08/20/19 06/10/20 History furosemide 40 mg PO QAM 08/20/19 06/10/20 History isosorbide mononitrate 30 mg PO QAM 08/20/19 06/10/20 History lisinopril 5 mg PO QAM 08/20/19 06/10/20 History magnesium oxide 400 mg PO QAM 08/20/19 06/10/20 History metoprolol tartrate 12.5 mg PO BID 08/20/19 06/10/20 History omeprazole 20 mg PO QAM 08/20/19 06/10/20 History potassium chloride [Klor-Con M10] 10 meq PO QAM 08/20/19 06/10/20 History Eliquis 2.5 mg PO BID 30 Days #60 tab 08/25/19 06/10/20 Rx oxycodone-acetaminophen 1 tab PO Q6H PRN 11/13/19 06/10/20 History amiodarone 200 mg PO QAM 06/03/20 06/10/20 History Inpatient Medication List Albuterol (Albuterol Hfa 8 Gm Inhaler) 2 puffs INH QIDR [facility] Stop: 07/10/20 22:21 Last Admin: 06/12/20 07:02 Dose: 2 puffs Documented by: [id number] Admin: 06/11/20 19:55 Dose: 2 puffs Documented by: [id number] Admin: 06/11/20 15:29 Dose: 2 puffs Documented by: [id number] Admin: 06/11/20 11:02 Dose: 2 puffs Documented by: [id number] Admin: 06/11/20 07:49 Dose: Not Given Documented by: [id number] Admin: 06/10/20 23:31 Dose: 2 puffs Documented by: [id number] Amiodarone HCl ([facility]arone 200 Mg Tab) [facility] Stop: 07/11/20 08:59 Last Admin: 06/12/20 08:41 Dose: 200 mg Documented by: [id number] Admin: 06/11/20 08:05 Dose: 200 mg Documented by: [id number] Apixaban (Apixaban 2.5 Mg Tab) 2.5 mg PO BID [facility] Stop: 07/10/20 22:21 Last Admin: 06/12/20 08:41 Dose: 2.5 mg Documented by: [id number] Admin: 06/11/20 19:54 Dose: 2.5 mg Documented by: [id number] Admin: 06/11/20 08:04 Dose: 2.5 mg Documented by: [id number] Admin: 06/10/20 23:18 Dose: 2.5 mg Documented by: [id number] Aspirin (Aspirin 81 Mg Ectab) 81 mg PO [id number] [facility] Stop: 07/10/20 22:21 Last Admin: 06/10/20 23:18 Dose: 81 mg Documented by: [id number] Atorvastatin Calcium (Atorvastatin 40 Mg Tab) 40 mg PO [facility] Stop: 07/11/20 08:59 Last Admin: 06/12/20 08:41 Dose: 40 mg Documented by: [id number] Admin: 06/11/20 08:06 Dose: 40 mg Documented by: [id number] Diclofenac Sodium (Diclofenac Sod 1% Gel 100 Gm Tube) 4 gm EXT QID [facility] Stop: 07/10/20 22:21 Last Admin: 06/12/20 08:42 Dose: 4 gm Documented by: [id number] Admin: 06/11/20 19:55 Dose: 4 gm Documented by: [id number] Admin: 06/11/20 17:13 Dose: 4 gm Documented by: [id number] Admin: 06/11/20 13:55 Dose: 4 gm Documented by: [id number] Admin: 06/11/20 10:57 Dose: Not Given Documented by: [id number] Admin: 06/10/20 23:21 Dose: Not Given Documented by: [id number] Docusate Sodium (Docusate Sodium 100 Mg Cap) 100 mg PO BID [facility] Stop: 07/10/20 22:21 Last Admin: 06/12/20 08:41 Dose: 100 mg Documented by: [id number] Admin: 06/11/20 19:53 Dose: 100 mg Documented by: [id number] Admin: 06/11/20 08:03 Dose: 100 mg Documented by: [id number] Admin: 06/10/20 23:18 Dose: 100 mg Documented by: [id number] Fluoxetine HCl (Fluoxetine Hcl 20 Mg Cap) 20 mg PO QAM [facility] Stop: 07/11/20 08:59 Last Admin: 06/12/20 08:41 Dose: 20 mg Documented by: [id number] Admin: 06/11/20 08:05 Dose: 20 mg Documented by: [id number] Furosemide (Furosemide 40 Mg Tab) [facility] Stop: 07/11/20 08:59 Last Admin: 06/12/20 08:41 Dose: 40 mg Documented by: [id number] Admin: 06/11/20 08:04 Dose: 40 mg Documented by: [id number] Levetiracetam 500 mg/ Sodium (Chloride) 105 mls @ 440 mls/hr IV BID [facility] Stop: 07/11/20 08:59 Last Infusion: 06/12/20 09:30 Dose: 0 mls/hr Documented by: [id number] Admin: 06/12/20 08:40 Dose: 440 mls/hr Documented by: [id number] Infusion: 06/11/20 21:34 Dose: 0 mls/hr Documented by: [id number] Admin: 06/11/20 21:15 Dose: 440 mls/hr Documented by: [id number] Infusion: 06/11/20 09:22 Dose: 0 mls/hr Documented by: [id number] Admin: 06/11/20 08:07 Dose: 440 mls/hr Documented by: [id number] Isosorbide Mononitrate (Isosorbide Martin Extended Rel 30 Mg Tabcr) 30 mg PO QAM [facility] Stop: 07/11/20 08:59 Last Admin: 06/12/20 08:41 Dose: 30 mg Documented by: [id number] Admin: 06/11/20 08:04 Dose: 30 mg Documented by: [id number] Lactobacillus Acidoph/Casei/Rhamnos (Advanced Probiotic 1250 Mg Capsule) 2 cap PO [facility] Stop: 07/11/20 08:59 Last Admin: 06/12/20 08:41 Dose: 2 cap Documented by: [id number] Admin: 06/11/20 08:06 Dose: 2 cap Documented by: [id number] Lisinopril (Lisinopril 5 Mg Tab) 5 mg PO [facility] Stop: 07/11/20 08:59 Last Admin: 06/12/20 08:41 Dose: 5 mg Documented by: [id number] Admin: 06/11/20 08:05 Dose: 5 mg Documented by: [id number] Magnesium Oxide (Magnesium Oxide 400 Mg Tab) 400 mg PO [facility] Stop: 07/11/20 08:59 Last Admin: 06/12/20 08:41 Dose: 400 mg Documented by: [id number] Admin: 06/11/20 08:06 Dose: 400 mg Documented by: [id number] Metoprolol Tartrate (Metoprolol Tartrate 25 Mg Tab) 12.5 mg PO BID [facility] Stop: 07/10/20 22:21 Last Admin: 06/12/20 08:42 Dose: 12.5 mg Documented by: [id number] Admin: 06/11/20 19:54 Dose: 12.5 mg Documented by: [id number] Admin: 06/11/20 08:03 Dose: 12.5 mg Documented by: [id number] Admin: 06/10/20 23:18 Dose: 12.5 mg Documented by: [id number] Oxycodone/Acetaminophen (Oxycodone/Acetaminophen 10-325 Tab) 1 tab PO Q6H PRN PRN Reason: Pain Stop: 06/24/20 22:21 Last Admin: 06/12/20 08:45 Dose: 1 tab Documented by: [id number] Admin: 06/11/20 19:51 Dose: 1 tab Documented by: [id number] Pantoprazole Sodium (Pantoprazole 40 Mg Tab) 40 mg PO [facility] Stop: 07/11/20 08:59 Last Admin: 06/12/20 08:41 Dose: 40 mg Documented by: [id number] Admin: 06/11/20 08:07 Dose: 40 mg Documented by: [id number] Potassium Chloride (Potassium Chloride 10 Meq Tabcr) 10 meq PO [facility] Stop: 07/11/20 08:59 Last Admin: 06/12/20 08:41 Dose: 10 meq Documented by: [id number] Admin: 06/11/20 08:05 Dose: 10 meq Documented by: [id number] Discontinued Medications Levetiracetam 1,000 mg/ Sodium (Chloride) 110 mls @ 440 mls/hr IV NOW STA Stop: 06/10/20 18:16 Last Infusion: 06/10/20 19:36 Dose: 0 mls/hr Documented by: [id number] Admin: 06/10/20 18:46 Dose: 440 mls/hr Documented by: [id number] Levetiracetam 500 mg/ Sodium (Chloride) 105 mls @ 440 mls/hr IV BID [facility] Stop: 07/10/20 20:59 Last Admin: 06/10/20 22:50 Dose: Not Given Documented by: [id number] Magnesium Sulfate/Dextrose (Magnesium Sulfate / D5w) 1 gm in 100 mls @ 50 mls/hr IV ONE ONE Stop: 06/11/20 17:44 Last Infusion: 06/11/20 18:12 Dose: 0 mls/hr Documented by: [id number] Admin: 06/11/20 16:12 Dose: 50 mls/hr Documented by: [id number] Ioversol (Optiray 320 125ml) 116 ml IV ONCE ONE Stop: 06/10/20 17:09 Last Admin: 06/10/20 17:09 Dose: 116 ml Documented by: [id number] Lisinopril (Lisinopril 5 Mg Tab) 5 mg PO NOW ONE Stop: 06/10/20 19:25 Last Admin: 06/10/20 20:05 Dose: 5 mg Documented by: [id number] Oxycodone/Acetaminophen (Oxycodone/Acetaminophen 10-325 Tab) Confirm Administered Dose 1 tab .ROUTE .STK-MED ONE Stop: 06/10/20 21:06 Last Admin: 06/10/20 21:06 Dose: 1 tab Documented by: [id number] Perflutren Lipid Microsphere (Perflutren Lipid Microsphere (Definity)) 2 ml IV ONCE ONE Stop: 06/11/20 07:39 Last Admin: 06/11/20 07:38 Dose: 2 ml Documented by: [id number] Description This is a 21 electrode EEG with a single channel dedicated to limited EKG. The electrodes were placed in accordance with the International 10-20 system. REPORT: At the onset of the EEG the patient is drowsy. The background is symmetric. The posterior dominant rhythm is 7 Hz. There is some intermittent 2-3 Hz delta activity. Drowsiness is characterized by reduced eye blink, increased theta/delta activity, and decreased myogenic artifact. No stage II sleep transient are recorded. Photic stimulation does not induce any abnormalities. IMPRESSION: This is an abnormal awake and drowsy routine EEG due to mild background slowing suggestive of a mild non specific encephalopathy. There is no evidence of focal slowing or epileptiform activity.
[2020-06-12] MEDS: POLYETHYLENE (MIRALAX) 17 GM PACK PO SCH (11:34)
--- NOTE | 2020-06-12 11:44 | Progress Notes ---
DATE: 06/12/2020 CHIEF COMPLAINT: Seizure like activity. SUBJECTIVE: The patient was seen and examined. No acute events overnight. The patient had a routine EEG performed this morning. MRI brain was completed yesterday. Has had no noted seizure-like events since admission. OBJECTIVE: VITAL SIGNS: Blood pressure 137/81, pulse 60, respiratory rate 18, temperature is 36.5 degrees Celsius, oxygen saturation is 95% on room air. PHYSICAL EXAMINATION: GENERAL: The patient appears normally developed and appears her stated age. She is an obese woman. She is in no acute distress. LUNGS: Respiratory effort is normal. NEUROLOGIC: She is awake, alert and oriented to person, place and time. Her attention is normal. Knowledge is appropriate. Comprehension is intact. Pupils are symmetric. Facial sensation is intact. Shoulder shrug is normal. Tongue is midline. No ataxia with jbryal-qi-vwai testing, no tremor. Sensation is intact to light touch. Muscle tone is normal. Motor strength testing reveals no focal weakness, although giveway weakness in both legs. No ankle clonus and a negative Malachi sign. DIAGNOSTIC TESTING AND LABORATORY VALUES: WBC 6.16, hemoglobin 11.8, platelet count 192. ESR is 9. Sodium 140, potassium 4.0, BUN 22, creatinine 1.45, glucose is 92. CRP is 0.34. Patient had a routine EEG performed this morning which showed no evidence of epileptiform activity or focal slowing. There was mild generalized background slowing suggestive of a mild nonspecific encephalopathy. MRI of the brain performed on 06/11/2020. This was performed without contrast. This was an abnormal study. There was no evidence of an acute infarction. There was a moderate white matter T2 hyperintensity within the right parietal lobe, which corresponds to the recent CT head findings. There was some preservation of the cortex. This may reflect a subacute infarct. However, the MRI appearance is nonspecific. Another etiology such as an infectious process such as a cerebritis is within the differential. Short-term follow up with the MRI of the brain is recommended. ASSESSMENT AND PLAN: An 85-year-old woman with multiple medical comorbidities including paroxysmal atrial fibrillation, on Eliquis 2.5 mg twice daily as well as known coronary artery disease on aspirin, admitted with a presumed seizure-like activity involving the left side of her body. Recent MRI of the brain without contrast shows a T2 white matter lesion in the right parietal lobe, which is nonspecific. This is new since 05/2018. MRI of the brain shows no diffusion restriction with cortical enhancement suggestive of a subacute stroke. Recommend to continue Keppra 500 mg twice daily for seizure prophylaxis. Routine EEG showed no evidence of epileptiform activity or focal slowing. Recommend switching Eliquis to coumadin for secondary stroke prevention, goal INR 2-3. Will need repeat MRI brain w/wo in 2-3 months. Neurology will continue to follow. MTDD
[2020-06-12] MEDS ORDERED: GADOBUTROL 65ML VIAL IV ONE (14:34)
--- NOTE | 2020-06-12 14:38 | Magnetic Resonance Report ---
MRI OF THE BRAIN WITHOUT AND WITH IV CONTRAST CLINICAL HISTORY: Stroke. Abnormal noncontrast MRI study. COMPARISON STUDY: MRI dated 04/11/2020 TECHNIQUE: Pre and postcontrast images were acquired in the axial sagittal and coronal planes. Follow ing the IV administration of 9 mL of Gadavist contrast, additional enhanced images were obtained. FINDINGS: There is cortical gyriform enhancement within the right parietal vertex corresponding to the focus of T2 hyperintensity described on the noncontrast MRI study dated 06/11/2020. This likely represents gy ral enhancement in a subacute infarct. While infectious/inflammatory conditions, and neoplastic lesio ns can appear similar, these are felt to be statistically less likely. A two-month follow-up contrast enhanced MRI study is recommended. IMPRESSION: 1. Cortical gyriform enhancement within the right parietal vertex corresponding to the recently descr ibed focus of T2 hyperintensity. As stated above, gyral enhancement in a subacute infarct is favored. Clinical correlation, and a two-month follow-up contrast-enhanced MRI study is recommended. ACT 112: Negative or not required by law. Electronically signed by: Trav Jefferson M.D. 06/12/2020 2:37 PM
[2020-06-12] MEDS ORDERED: SODIUM CHLORIDE 0.9% 500 ML IV SCH (19:45)
[2020-06-12] MEDS: levETIRAcetam 500 MG TAB PO SCH (20:43)
[2020-06-13] MEDS: oxyCODONE/ACETAMINOPHEN 10-325 TAB PO PRN ×2 (04:26→15:13)
[2020-06-13] MEDS: ALBUTEROL HFA 8 GM INHALER INH SCH ×3 (07:27→14:41)
[2020-06-13] MEDS: APIXABAN 2.5 MG TAB PO SCH (08:00)
[2020-06-13] MEDS: DOCUSATE SODIUM 100 MG CAP PO SCH (08:01)
[2020-06-13] MEDS: ISOSORBIDE MONO EXTENDED REL 30 MG TABCR PO SCH (08:01)
[2020-06-13] MEDS: ATORVASTATIN 40 MG TAB PO SCH (08:01)
[2020-06-13] MEDS: POLYETHYLENE (MIRALAX) 17 GM PACK PO SCH (08:01)
[2020-06-13] MEDS: FLUoxetine HCL 20 MG CAP PO SCH (08:02)
[2020-06-13] MEDS: PANTOprazole 40 MG TAB PO SCH (08:02)
[2020-06-13] MEDS: METOPROLOL TARTRATE 25 MG TAB PO SCH (08:03)
[2020-06-13] MEDS: POTASSIUM CHLORIDE 10 MEQ TABCR PO SCH (08:05)
[2020-06-13] MEDS: lisinopril 5 MG TAB PO SCH (08:05)
[2020-06-13] MEDS: ASPIRIN 81 MG ECTAB PO SCH (08:05)
[2020-06-13] MEDS: AMIODARONE 200 MG TAB PO SCH (08:05)
[2020-06-13] MEDS: FUROSEMIDE 40 MG TAB PO SCH (08:06)
[2020-06-13] MEDS: MAGNESIUM OXIDE 400 MG TAB PO SCH (08:06)
[2020-06-13] MEDS: levETIRAcetam 500 MG TAB PO SCH (08:06)
[2020-06-13] MEDS: ADVANCED PROBIOTIC 1250 MG CAPSULE PO SCH (08:06)
[2020-06-13] MEDS: DICLOFENAC SOD 1% GEL 100 GM TUBE EXT SCH ×3 (08:07→17:24)
--- NOTE | 2020-06-13 11:22 | Hospitalist Progress Note ---
Date of Service June 13, 2020 Assessment & Plan (1) Seizure-like activity: Episodes of shaking involving the left-sided extremities likely secondary to partial seizures EEG did not show epileptiform activity Neurologist recommendations appreciated Continue keppra 500mg twice daily on discharge (2) Acute cerebrovascular accident: CT scan of the head on 03 June 2020 for a similar presentation was negative CT scan of the head today showed right parietal apex hypodensity likely representing a subacute infarct CTA of the head and neck have been unremarkable MRI brain w/o co showed T2 white matter lesion in right parietal lobe Reviewed images including MRI brain with contrast with neurologist Neurologist recommend changing Eliquis to Coumadin. Discussed this with patient Eliquis discontinued. Coumadin started Monitor INR Will need follow-up with anticoagulation clinic Continue aspirin, statin Echo report noted PT/OT evaluation noted Patient and family wants to be discharged to rehab. sustainable products marketing manager working on this (3) Paroxysmal atrial fibrillation: Rate is controlled Continue with current medications (4) Diastolic CHF: No evidence of CHF on chest x-ray Continue the diuretics (5) CKD stage 3 due to type 1 diabetes mellitus: Stable (6) DM type 2 (diabetes mellitus, type 2): Continue insulin coverage per sliding scale A1c from 02/2019 was 6.2 Not on any antidiabetic Get A1c (7) CAD (coronary artery disease): Continue home meds Aspirin, statin (8) HTN (hypertension): Controlled Continue home med Lisinopril. metoprolol (9) Chronic back pain: Has history of chronic back pain No signs of radiculopathy at this time Outpatient work-up (10) Polymyalgia rheumatica: DVT prophylaxis Warfarin started Continue Bowel regimen for constipation CODE STATUS Full Called son and updated him on the plan, findings and medication changes sustainable products marketing manager working on placement Admission and Anticipated Discharge Date Admission Date: June 10, 2020 Subjective Patient seen and examined. Reports no new complaints. Reports occasional tremors especially in the left leg. No more seizure episode Review of Systems Review of Systems: All systems reviewed & are unremarkable except as noted in Subjective Physical Exam Constitutional: + well hydrated and + obese; no acute distress Eyes: PERRL, conjunctivae normal, anicteric sclerae ENMT: external ear and nose normal, oropharynx normal Respiratory: normal respiratory effort, lungs clear to auscultation Cardiovascular: Rate/Rhythm: regular rate and regular rhythm S1-S2 Gastrointestinal (Abdomen): normal bowel sounds, soft, nontender, no hepatosplenomegaly Musculoskeletal: no cyanosis or clubbing, extremities motor strength 5/5 Neurologic: PERRL, EOMI, accommodation nl, no face palsy, no dysarthria Psychiatric: A+Ox3, euthymic affect Results & Data Results & Data ([facility]) Vital Signs (Past 12 Hours) Vital Signs Temp Pulse Pulse Resp BP Pulse Ox 06/13/20 10:42 36.6 C 73 18 134/77 95 06/13/20 07:40 36.9 C 59 L 18 130/77 94 06/13/20 07:28 60 16 93 06/13/20 03:33 36.8 C 20 125/73 94 06/13/20 01:32 61 06/13/20 01:03 128/77
[2020-06-13 13:01] LABS: Estimated Average Glucose 128 mg/dl; Hemoglobin A1C 6.1 % (4.5-5.6)
[2020-06-13] MEDS ORDERED: WARFARIN SOD 5 MG TAB PO SCH (16:00)
--- NOTE | 2020-06-13 16:32 | Discharge Summary ---
Date of Service June 13, 2020 Admission HPI Per Admitting Provider She is an 85-year-old female significant past medical history of atrial fibrillation on anticoagulation, diastolic CHF, CKD stage III, type 2 diabetes, CAD, hyperlipidemia, hypertension, polymyalgia rheumatica and chronic back pain apparently has been complaining of shaking episodes involving the left-sided extremities more than 1 week. She has had pain involving the left lower extremity with shaking episode and was seen in the ER with 18th of this month. She has had CT of the head and ultrasound of the lower extremities which were unremarkable and she was sent home with an appointment with the primary care physician for outpatient work-up. She has had a few episodes of shaking involving the left-sided extremities and during one of the episode she suffered a fall without any significant injury or loss of consciousness. She has been having frequent episodes of shaking with last for about 2 to 3 minutes and this morning she has had 7 episodes of that kind without any loss of consciousness. She denies any visual symptoms, any nausea and/or vomiting, any chest pain or shortness of breath, and she does not have any significant weakness following any of the episodes. Her only associated symptoms where mild headache and numbness involving the left-sided extremities following the episode. Denies any significant weakness involving the left side extremities as well and she does not have any problem with swallowing or any facial asymmetry. Her CT scan of the head did show right parietal subacute/acute infarct and from that point she was admitted to telemetry unit for continuation of care with the diagnosis of seizure. Her COVID-19 test was negative. Admission Exam Per Admitting Provider Physical Exam: Lying in bed comfortably but very anxious Constitutional: well developed, well nourished and + obese; no acute distress and not ill appearing Eyes: PERRL, conjunctivae normal, anicteric sclerae ENMT: external ear and nose normal, oropharynx normal Neck: trachea midline, no thyromegaly Respiratory: no respiratory distress Auscultation: lungs clear to auscultation bilaterally Cardiovascular: Rate/Rhythm: + irregularly irregular Heart Sounds: no murmur Extremities: + edema (1+ edema bilaterally) Gastrointestinal (Abdomen): Inspection/Auscultation: abdomen normal to inspection and normal bowel sounds; abdomen not distended Percussion/Palpation: abdomen soft; abdomen nontender Musculoskeletal: Moderate arthritis involving the left knee Neurologic: Alert, awake and oriented x3. Minimal weakness involving the left sided extremities and possible decreased sensation involving left-sided extremities mostly the leg. Psychiatric: A+Ox3, euthymic affect Lymphatic: no cervical or axillary lymphadenopathy Principal Diagnosis Right parietal CVA Possible seizure Discharge Exam Constitutional + well hydrated and + obese; no acute distress Eyes PERRL, conjunctivae normal, anicteric sclerae ENMT external ear and nose normal, oropharynx normal Respiratory normal respiratory effort, lungs clear to auscultation Cardiovascular Rate/Rhythm: regular rate and regular rhythm S1 S2 Gastrointestinal (Abdomen) normal bowel sounds, soft, nontender, no hepatosplenomegaly Musculoskeletal no cyanosis or clubbing, extremities motor strength 5/5 Neurologic PERRL, EOMI, accommodation nl, no face palsy, no dysarthria Psychiatric A+Ox3, euthymic affect Discharge Data Allergies Allergy/AdvReac Type Severity Reaction Status Date / Time metoclopramide Allergy Intermediate neuro Verified 06/10/20 14:49 complications adhesive Allergy Unknown ALLERGY TO Verified 06/10/20 14:49 TAPE naproxen [From Naprosyn] Allergy Unknown Verified 06/10/20 14:49 doxycycline AdvReac Mild n/v Verified 06/10/20 14:49 Consultations 06/10/20 18:02 ED Decision to Admit Stat 06/11/20 07:44 Consult Neurology Routine Ordered Studies 06/10/20 14:13 CT angio head w con Stat Incidental note is made of a right vertebral artery fenestration near the level of the foramen magnum. There is a right parietal vertex hyperdensity suspicious for a subacute infarct. There are no lesion suspicious for aneurysm. There are no major intracranial branch occlusions. The dural venous sinuses appear patent. There is subtle "luxury perfusion" in the region of the suspected subacute right parietal infarct. IMPRESSION: 1. No evidence of aneurysm 2. No evidence of major intracranial branch occlusion or stenosis 3. Subtle luxury perfusion in the region of the suspected subacute right parietal infarct CT angio neck with con Stat The right carotid revealed no evidence of aneurysm and no evidence of dissection. There is no evidence of hemodynamic significant stenosis. Atheromatous calcifications are visualized in the region of the carotid siphon The left carotid revealed no evidence of hemodynamic significant stenosis. There is no evidence of aneurysm. There is no evidence of dissection. Atheromatous calcifications are visualized in the region of the carotid siphon. The right vertebral artery is dominant. There is no evidence of hemodynamically significant vertebral artery stenosis. The left vertebral artery originates from the aortic arch. 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 IMPRESSION: No evidence of hemodynamically significant carotid or vertebral artery stenosis. No evidence of dissection. CT head/brain wo con Stat There is a right parietal apex hypodensity which was not present on the preceding examination. This likely represents a subacute infarct. An MRI could be obtained in follow-up to confirm this impression as deemed clinically necessary. There is no evidence of acute hemorrhage. There is no evidence of midline shift. No calvarial fractures are visualized. There are patchy white matter hypodensities likely on a small vessel basis. There is no evidence of pathologic ventricular dilatation. There is a polyp/retention cyst within the right sphenoid. IMPRESSION: 1. Interval development of a right parietal apex hypodensity, likely representing a subacute infarct. An MRI could be obtained in follow-up as deemed clinically necessary. 2. No evidence of acute hemorrhage. 06/11/20 13:15 MR brain wo con Routine There are no foci of restricted diffusion to suggest acute infarct. No acute intracranial hemorrhage is present. Note is made of moderate white matter T2 hyperintensity within the right parietal lobe which corresponds to the finding on head CT and CTA of the head of June 10, 2020. Cortex appears preserved. Calvarial signal is normal. Mucous retention cyst within the sinuses are noted. Ventricular system is unremarkable. Basal cisterns are patent. There are no extra axial collections. Flow-voids for the major intracranial vessels are present. No intracranial masses are identified on this unenhanced examination. IMPRESSION: 1. No evidence for acute infarction. 2. Moderate white matter T2 hyperintensity within the right parietal lobe which corresponds to the finding on head CT and CTA of the head of June 10, 2020. Preserved cortex. This may reflect a subacute infarct. However, the MR appearance is nonspecific and other etiologies such as an infectious process with cerebritis is within the differential. Short-term follow-up MRI of the brain with and without contrast is recommended. 06/12/20 09:00 MR brain wo/w con Routine There is cortical gyriform enhancement within the right parietal vertex corresponding to the focus of T2 hyperintensity described on the noncontrast MRI study dated 06/11/2020. This likely represents gyral enhancement in a subacute infarct. While infectious/inflammatory conditions, and neoplastic lesions can appear similar, these are felt to be statistically less likely. A two-month follow-up contrast enhanced MRI study is recommended. IMPRESSION: 1. Cortical gyriform enhancement within the right parietal vertex corresponding to the recently described focus of T2 hyperintensity. As stated above, gyral enhancement in a subacute infarct is favored. Clinical correlation, and a two- month follow-up contrast-enhanced MRI study is recommended. Hospital Course (1) Seizure-like activity: Episodes of shaking involving the left-sided extremities likely secondary to partial seizures EEG did not show epileptiform activity Neurologist recommendations appreciated Continue keppra 500mg twice daily on discharge (2) CVA (cerebral vascular accident): Subacute Right parietal infarct CT scan of the head on 03 June 2020 for a similar presentation was negative CT scan of the head today showed right parietal apex hypodensity likely representing a subacute infarct CTA of the head and neck have been unremarkable MRI brain w/o co showed T2 white matter lesion in right parietal lobe Was evaluated by Neurologist Neurologist recommend changing Eliquis to Coumadin. Discussed this with patient Eliquis discontinued. Coumadin started at 5mg daily Will need follow-up with anticoagulation clinic Continue aspirin, statin Other stroke work up including Echo, PT/OT evaluation completed Patient discharged to rehab Needs to follow up with Neurology outpatient (3) Paroxysmal atrial fibrillation: Rate is controlled Continue with current medications (4) Diastolic CHF: Euvolemic Continue the diuretics (5) CKD stage 3 due to type 1 diabetes mellitus: Stable (6) DM type 2 (diabetes mellitus, type 2): Diet controlled A1c was 6.1 (7) CAD (coronary artery disease): Continue home meds Aspirin, statin (8) HTN (hypertension): Controlled Continue home med Lisinopril and metoprolol (9) Polymyalgia rheumatica: DVT prophylaxis Warfarin started Continue Bowel regimen for constipation CODE STATUS Full Called son and updated him on the plan, findings and medication changes manager rail working on placement (10) Chronic back pain: Has history of chronic back pain No signs of radiculopathy at this time Outpatient work-up Total Time Total Time Spent Total Time Spent (In Minutes): 45 Total Time Includes: Examination of the Patient, Discharge Planning, Medication Reconciliation and Communication With Other Providers Discharge Plan Discharge Items Patient Disposition: Transfer Inpatient Rehab Fac Reason For Visit: Seizure like episode Discharge Diagnosis: Stroke Possible seizure Activity: As commented below Activity Comment: Per PT recommendations Driving/Machine Use: Patient does not drive Non-emergency contact: Primary Care Provider and Neurologist Call non-emergency contact if: you have any medication questions and your symptoms worsen Follow-up/Referrals: Steve Hooker MD [Primary Care Provider] - Diet: Carb Consistent or DM2 and Heart Healthy Ambulatory Orders: Prothrombin Time INR (Routine) Timeframe: 2 Days Location: Determined by Patient Ordered By: Carmen Beaulieu Attending Provider Instructions: Mrs Angel. You came to the hospital complaining of leg shaking You were extensively evaluated and noted to have a stroke. Your eliquis was discontinued and you were started on warfarin. As we discussed, warfarin is a blood thinner. A blood test called INR is used to monitor levels and adjust warfarin dose as needed. The goal INR for you is 2 - 3. You were evaluated by Physical therapist and being discharged to rehab. It is very important that they check your INR in 2 days to monitor and adjust warfarin as needed. They may need to also check more frequently while you are at rehab. You also need to follow up with Anticoagulation clinic for management of the warfarin. You were also started on Keppra 500mg twice daily. Please follow up with Neurology in office in 4-6 weeks It was a pleasure taking care of you. Pending Studies at Discharge: No Stand-Alone Forms: My [facility] Skilled Items Patient informed of condition?: Yes DNR: No Discharge Level of Care: Acute rehab Communicable Disease: No Discharge Prognosis: Stable Lines: None Urinary Catheter: No Medications and DC Order Prescriptions: New warfarin 5 mg Tablet 5 mg PO DAILY@1600 30 Days Qty: 30 RF: 0 polyethylene glycol 3350 [Miralax] 17 gram Powder In Packet 17 g PO DAILY PRN (Reason: constipation) Qty: 30 RF: 0 levetiracetam [Keppra] 500 mg Tablet 500 mg PO BID 30 Days Qty: 60 RF: 0 Continued oxycodone-acetaminophen 10-325 mg tablet 1 tab PO Q6H PRN (Reason: Pain) Qty: 8 RF: 0 atorvastatin 40 mg tablet 40 mg PO QAM RF: 0 isosorbide mononitrate 30 mg tablet extended release 24 hr 30 mg PO QAM RF: 0 aspirin 81 mg Tablet,Delayed Release (Dr/Ec) 81 mg PO MOWEFR RF: 0 omeprazole 20 mg capsule,delayed release(DR/EC) 20 mg PO QAM RF: 0 lisinopril 5 mg tablet 5 mg PO QAM RF: 0 albuterol sulfate [Ventolin HFA] 90 mcg/actuation HFA aerosol inhaler 2 puff inhalation QID RF: 0 fluoxetine 20 mg capsule 20 mg PO QAM RF: 0 potassium chloride [Klor-Con M10] 10 mEq tablet,ER particles/crystals 10 meq PO QAM RF: 0 metoprolol tartrate 25 mg tablet 12.5 mg PO BID RF: 0 Probiotic 3 billion cell Capsule 3 mmu cells PO QAM RF: 0 docusate sodium 100 mg Capsule 100 mg PO BID RF: 0 furosemide 20 mg tablet 40 mg PO QAM RF: 0 diclofenac sodium 1 % gel 4 g TOPICAL QID RF: 0 magnesium oxide 400 mg magnesium Tablet 400 mg PO QAM RF: 0 amiodarone 200 mg tablet 200 mg PO QAM RF: 0 Discontinued Eliquis 2.5 mg tablet 2.5 mg PO BID 30 Days Qty: 60 RF: 0 Discharge Orders: Discharge Order (Routine); Ordered 06/13/20 Ordered By: Carmen Mooney/Other Patient Handouts: Managing Type 2 Diabetes Admission Data Admit Date/Time: 06/10/20 18:54 Attending Provider: Carmen Lemon I. Admit Provider: Mery Morris Primary Care Provider: Steve Hooker Other Providers: Mery Morris ; David Raymundo ; [facility] Other Interventions: Discharge Summary Assessment (RN) Last Done: 06/13/20 16:50
--- NOTE | 2020-06-13 17:46 | Progress Notes ---
DATE: 06/13/2020 NEUROLOGY PROGRESS NOTE An 85-year-old woman. SUBJECTIVE: The patient was seen and examined at bedside this afternoon. She was taking a nap prior to entering the room. She reports feeling better today and hopeful that she may be able to go to a rehab in the next day or so. She denies any new complaints or concerns. Eliquis was stopped today with plans to initiate warfarin tonight. The patient is agreeable. I did review her recent MRI brain with her this afternoon. She had no further questions. OBJECTIVE: VITAL SIGNS: Blood pressure 91/56, pulse is 60, respiratory rate 18, temperature is 36.4 degrees Celsius. NEUROLOGIC: The patient is awake, alert, oriented to person, place and time. She appears stated age, in no distress. She is following commands and her speech is clear. Sensation is intact to light touch. She has no tremor or myoclonic jerks. She has no ataxia with [id number] testing. Her face is symmetric. Her eyes are midline. Extraocular muscles are intact. She has no neglect on the left or right side. DIAGNOSTIC TESTING AND LABORATORY VALUES: WBC 6.16, hemoglobin is 11.8, platelet count is 192. Sodium 140, potassium 4.0, chloride 104, BUN 22, creatinine 1.45. Hemoglobin A1c 6.1. MRI of the brain with contrast performed on 06/12/2020: There is cortical gyriform enhancement within the right parietal vertex corresponding to the recently described focus of T2 hyperintensity. Gyral enhancement in a subacute infarct is favored. ASSESSMENT AND PLAN: Ms. Diaz is an 85-year-old woman with multiple medical comorbidities including paroxysmal atrial fibrillation, on Eliquis, coronary artery disease, on aspirin and chronic kidney disease, admitted with presumed symptomatic seizure due to an embolic right middle cerebral artery or parietal lobe ischemic stroke. The patient was compliant with her Eliquis. Therefore, this would be a failure of Eliquis for secondary stroke prevention. We will switch to Coumadin starting today. Goal INR is 2-3. Dose will need to be titrated after leaving the hospital, [facility] The patient follows here in [facility] and the [facility] clinic will be able to assist with this. The patient is agreeable to the use of Coumadin. I will plan to see the patient back in 8 weeks. We will continue Keppra 500 mg twice daily. I will plan to repeat her MRI brain with and without contrast in about 3 months. The patient is okay to be discharged from a neurological standpoint. Please contact me with any additional questions or concerns.
== END 2020-06-13 17:45 | DRG 66 ==
LOC: ED 13:46 → SUATTDRO 18:54 → 2S 18:54 → 2W 06-12 14:59

== ENCOUNTER 2022-06-28 13:12 | Inpatient (IN) ==
--- NOTE | 2022-06-28 13:55 | Emergency Department Note ---
Impression & Plan Weakness, Need for physical therapy assessment ED Provider Note NAME: BRUNO BAUTISTA AGE: 87 SEX: F : 1935 ARRIVES VIA: Walk-In INFORMANT: Patient, ED PROVIDER(S): Luis Armando Ceja MD CHIEF COMPLAINT: Weakness, fatigue MEDICAL DECISION MAKING: Patient presents with her son at bedside events and they are concerned she has had progressively worsening weakness and fatigue. Blood work is obtained. They did iterate that they would like to consider [facility] additional rehab and PT and OT. EKG obtained. Patient has a normal white count hemoglobin and platelet count. The patient had complained of some mild headache and was ordered some Tylenol. The patient's INR is therapeutic 2.5. The patient's kidney function with creatinine 1.39. Calcium 10.6. Urinalysis does show blood no bacteria. COVID-negative. I did have case management speak with the patient. They would like to pursue rehab. The patient was admitted to the medicine service for PT OT and likely rehab. I did speak with Carola Lancaster PA-C and the patient was admitted by Dr. Peters. Prior /Outside records reviewed: None Differential diagnosis: Infection, dehydration, metabolic abnormality, hypo/hyperglycemia, electrolyte disturbance, anemia, hypoxia, cardiac sources, intracerebral event, toxicologic, neurologic, as well as other pathologies. Diagnostics, as interpreted by me: ECG: None Cardiac monitoring: An order was placed for continuous cardiac monitoring. The monitor shows a rate of 75 with sinus rhythm. Patient was placed on pulse oximetry Medical decision rules: None Imaging studies: See below HPI: Patient presents due to concern for weakness and fatigue which is gotten progressively worse over months. The patient denies any chest pain shortness of breath and has had associated nausea but no vomiting. Occasional loose stools and the patient does admit to occasional blood with wiping which she thinks is related to hemorrhoids. Patient [place] any abdominal pains. The patient may have lost several pounds over the last several months but no significant weight loss. Patient states that she is drinking well but not eating well. Patient denies any chest pains or shortness of breath patient will occasionally have a nonproductive cough. No head or neck pain. No numbness ting or focal weakness. No recent falls. Patient does live by her self PAST MEDICAL HISTORY: See Below PAST SURGICAL HISTORY: See Below SOCIAL HISTORY: See Below HOME MEDICATIONS: See Below ALLERGIES: See Below VITALS: See Below PHYSICAL EXAMINATION: GENERAL: NAD, wearing a mask, non-toxic. EYE EXAM: Normal conjunctiva. PERRL, no anisocoria and EOM's grossly intact w/o pain. NECK: Supple, no nuchal rigidity, no adenopathy, non-tender. No signs of meningismus. FROM of the neck with good chin to chest and neck extension. No stridor. LUNGS: Clear to auscultation. Normal chest wall mechanics. HEART: NSR, no MRG. ABDOMEN: Abdomen soft, non-tender, normo-active bowel sounds, no masses, no r ebound or guarding. BACK: No CVA TTP. SKIN: No rashes and no bruising. UPPER EXTREMITIES: Upper extremities are grossly normal. LOWER EXTREMITIES: Grossly normal, no edema. NEURO EXAM: A&O x3, cranial nerves II-XII grossly intact, normal speech, moves all 4 extremities. Past Med/Surg History Medical History (Updated 06/28/22 @ 19:30 by Luis Armando Ceja MD) CAD (coronary artery disease) "1996 - PTCA to RCA 2012 - cath that showed patent RCA and no further disease" Chronic back pain CKD stage 3 due to type 1 diabetes mellitus Diastolic CHF DM type 2 (diabetes mellitus, type 2) Dyslipidemia GERD (gastroesophageal reflux disease) History of nephrolithiasis Polymyalgia rheumatica Surgical History History of cystoscopy History of lithotripsy History of PTCA S/P appendectomy S/P cholecystectomy S/P hysterectomy Family History Aunt Breast cancer Mother Diabetes Coronary heart disease Father Silicosis Social History Smoking Status: Former smoker Tobacco Type: Cigarettes packs per day: 0.5; Second Hand Exposure: No; Hx Alcohol Use: Yes Alcohol type: other Hx Substance Use: No Preferred Language: Turkish Communication Ability: Effective Visual Impairment: Partially Limited Cob Sawyer Required: No Beliefs That Will Affect Care: None marital status: / Current Living Situation: Alone Other Information That Helps Us Care for You: No Feels Safe at Home: Yes Safety Concerns: Feels Safe At This Time Assistive Devices: Cane, Denture - Upper, Denture - Lower and Walker Allergies Allergies Allergy/AdvReac Type Severity Reaction Status Date / Time metoclopramide Allergy Intermediate neuro Verified 06/28/22 16:58 complications adhesive Allergy Unknown ALLERGY TO Verified 06/28/22 16:58 TAPE naproxen [From Naprosyn] AdvReac Intermediate CAN'T Verified 06/28/22 16:58 TOLERATE, DEPRESSED, EMOTIONAL doxycycline AdvReac Mild n/v Verified 06/28/22 16:58 Home Meds Home Medications Medication Instructions Recorded Confirmed albuterol sulfate 90 mcg/actuation 2 puff inhalation QID PRN 08/20/19 06/28/22 aerosol inhaler (Ventolin HFA) Shortness Of Breath aspirin 81 mg tablet,delayed 81 mg PO 3XWK 08/20/19 06/28/22 release atorvastatin 40 mg tablet 40 mg PO QAM 08/20/19 06/28/22 diclofenac sodium 1 % topical gel 4 g topical QID PRN Pain 08/20/19 06/28/22 isosorbide mononitrate 30 mg 30 mg PO QAM 08/20/19 06/28/22 tablet,extended release 24 hr lactobacillus combination no.4 3 3 mmu cells PO QAM 08/20/19 06/28/22 billion cell capsule (Probiotic) magnesium oxide 400 mg PO QAM 08/20/19 06/28/22 omeprazole 20 mg capsule,delayed 20 mg PO DAILYBB 08/20/19 06/28/22 release potassium chloride 10 mEq 10 meq PO QAM 08/20/19 06/28/22 tablet,extended release(part/cryst) (Klor-Con M) amiodarone 200 mg tablet 100 mg PO QAM 06/03/20 06/28/22 acetaminophen 500 mg tablet 1,000 mg PO Q6H PRN Pain 06/20/21 06/28/22 (Tylenol Extra Strength) biotin 10,000 mcg capsule 10,000 mcg PO DAILY 06/20/21 06/28/22 levetiracetam 500 mg tablet 500 mg PO BID 06/20/21 06/28/22 metoprolol succinate 25 mg 12.5 mg PO DAILY 06/20/21 06/28/22 tablet,extended release 24 hr multivitamin-ferrous 1 tab PO DAILY 06/20/21 06/28/22 fumarate-folic acid 18 mg-400 mcg tablet (Centrum) oxycodone-acetaminophen 10 mg-325 1 tab PO Q6H PRN Pain 06/20/21 06/28/22 mg tablet simethicone 80 mg chewable tablet 80 mg PO Q8H PRN Gastric Reflux 06/20/21 06/28/22 trazodone 50 mg tablet 25 mg PO HS 06/20/21 06/28/22 warfarin 4 mg tablet See Rx Instructions .Route .COMPLEX 06/20/21 06/28/22 docusate sodium 100 mg capsule 200 mg PO DAILY 06/28/22 06/28/22 duloxetine 60 mg capsule,delayed 60 mg PO QAM 06/28/22 06/28/22 release Previous Rx's Medication Instructions Recorded polyethylene glycol 3350 17 gram 17 g PO DAILY PRN constipation #30 06/13/20 oral powder packet (Miralax) ea Results & Data (ED) Vital Signs Vital Signs - 24 hr 06/28/22 13:20 06/28/22 14:04 06/28/22 14:13 Temperature 36.0 C L Temperature Source Temporal Artery Scan Pulse Rate 81 Pulse Rate [Apical] Respiratory Rate 18 Respiratory Effort / Characteristics Respiratory Depth Blood Pressure 138/104 H Blood Pressure [Left Arm] Blood Pressure Mean 115 Blood Pressure Mean [Left Arm] Pulse Oximetry 95 95 Oxygen Delivery Method Room Air Room Air Sepsis Recent Fever Within 48 Hours No Sepsis New/Unexplained Change in Mental Status No Sepsis Action Taken by Nursing No Action Required 06/28/22 14:13 Temperature Temperature Source Pulse Rate Pulse Rate [Apical] 71 Respiratory Rate 18 Respiratory Effort / Characteristics Non-Labored Spontaneous Respiratory Depth Normal Blood Pressure Blood Pressure [Left Arm] 164/103 H Blood Pressure Mean Blood Pressure Mean [Left Arm] 123 Pulse Oximetry 95 Oxygen Delivery Method Room Air Sepsis Recent Fever Within 48 Hours Sepsis New/Unexplained Change in Mental Status Sepsis Action Taken by [place] Medications Current Medication List: was personally reviewed by me Laboratory Data Attestation: I reviewed the patient's lab results. 06/28/22 13:43 06/28/22 13:43 Lab Results 06/28/22 06/28/22 06/28/22 Range/Units 13:43 13:43 13:43 WBC 8.29 (4.8-10.8) K/ul RBC 5.25 H (3.93-5.22) M/uL Hgb 15.1 (12.0-16.0) g/dl Hct 46.6 H (34.1-44.9) % MCV 88.8 (80.0-100.0) fL MCH 28.8 (25.0-34.0) pg MCHC 32.4 (32.0-36.0) g/dL RDW Std Deviation 46.1 (36.4-46.3) fL RDW Coeff of Tab 14.4 (11.5-14.5) % Plt Count 356 (130-400) K/uL MPV 10.0 (9.4-12.3) fL Immature Gran % (Auto) 0.4 % Neut % (Auto) 55.4 % Lymph % (Auto) 31.5 % [place] % (Auto) 6.8 % Eos % (Auto) 5.3 % Baso % (Auto) 0.6 % Neut # (Auto) 4.60 (1.4-6.5) K/uL Lymph # (Auto) 2.61 (1.2-3.4) K/uL [place] # (Auto) 0.56 (0.24-0.82) K/uL Eos # (Auto) 0.44 (0-0.50) K/uL Baso # (Auto) 0.05 (0-0.2) K/uL Immature Gran # (Auto) 0.03 H (0.00-0.02) K/uL PT (9.0-12.0) Seconds INR (0.9-1.1) Sodium 139 (136-145) mmol/L Potassium 4.4 (3.5-5.1) mmol/L Chloride 105 (98-107) mmol/L Carbon Dioxide 28 (21-32) mmol/L Anion Gap 6 (3-11) BUN 18 (6-23) mg/dl Creatinine 1.39 H (0.6-1.2) mg/dl Est Cr Clr Drug Dosing 30.3 ml/min Est GFR ( Amer) 40.0 ml/min Est GFR (Non-Af Amer) 34.5 ml/min BUN/Creatinine Ratio 12.9 (10-20) Glucose 114 H (70-99(Fasting)) mg/dl Calcium 10.6 H (8.5-10.1) mg/dl Total Bilirubin 0.6 (0.2-1.0) mg/dl AST 21 (13-39) U/L ALT 18 (7-52) U/L Alkaline Phosphatase 123 H (34-104) U/L Troponin I High Sens 9.9 (0-14) pg/ml Total Protein 6.6 (6.0-8.3) gm/dl Albumin 3.6 (3.4-5.0) gm/dl Globulin 3.0 (2.5-4.0) gm/dl Albumin/Globulin Ratio 1.2 (0.9-2) TSH 2.101 (0.300-4.500) uIu/ml Urine Color Urine Appearance (Clear) Urine pH (4.5-7.5) Ur Specific [place] (1.000-1.030) Urine Protein (Negative) Urine Glucose (UA) (Negative) Urine Ketones (Negative) Urine Blood (Negative) Urine Nitrite (Negative) Urine Bilirubin (Negative) Urine Urobilinogen (Negative) Ur Leukocyte Esterase (Negative) Urine WBC (Auto) (0-5) /hpf Urine RBC (Auto) (0-4) /hpf U Hyaline Cast (Auto) (0-5) /lpf U Epithel Cells (Auto) (0-5) /lpf Urine Bacteria (Auto) (Negative) SARS-CoV-2, RNA, NAAT (NEGATIVE) 06/28/22 06/28/22 06/28/22 Range/Units 13:43 14:15 16:23 WBC (4.8-10.8) K/ul RBC (3.93-5.22) M/uL Hgb (12.0-16.0) g/dl Hct (34.1-44.9) % MCV (80.0-100.0) fL MCH (25.0-34.0) pg MCHC (32.0-36.0) g/dL RDW Std Deviation (36.4-46.3) fL RDW Coeff of Tab (11.5-14.5) % Plt Count (130-400) K/uL MPV (9.4-12.3) fL Immature Gran % (Auto) % Neut % (Auto) % Lymph % (Auto) % [place] % (Auto) % Eos % (Auto) % Baso % (Auto) % Neut # (Auto) (1.4-6.5) K/uL Lymph # (Auto) (1.2-3.4) K/uL [place] # (Auto) (0.24-0.82) K/uL Eos # (Auto) (0-0.50) K/uL Baso # (Auto) (0-0.2) K/uL Immature Gran # (Auto) (0.00-0.02) K/uL PT 25.1 H (9.0-12.0) Seconds INR 2.5 H (0.9-1.1) Sodium (136-145) mmol/L Potassium (3.5-5.1) mmol/L Chloride (98-107) mmol/L Carbon Dioxide (21-32) mmol/L Anion Gap (3-11) BUN (6-23) mg/dl Creatinine (0.6-1.2) mg/dl Est Cr Clr Drug Dosing ml/min Est GFR ( Amer) ml/min Est GFR (Non-Af Amer) ml/min BUN/Creatinine Ratio (10-20) Glucose (70-99(Fasting)) mg/dl Calcium (8.5-10.1) mg/dl Total Bilirubin (0.2-1.0) mg/dl AST (13-39) U/L ALT (7-52) U/L Alkaline Phosphatase (34-104) U/L Troponin I High Sens (0-14) pg/ml Total Protein (6.0-8.3) gm/dl Albumin (3.4-5.0) gm/dl Globulin (2.5-4.0) gm/dl Albumin/Globulin Ratio (0.9-2) TSH (0.300-4.500) uIu/ml Urine Color Dark Yellow Urine Appearance Cloudy A (Clear) Urine pH 5.5 (4.5-7.5) Ur Specific [place] 1.025 (1.000-1.030) Urine Protein 1+ H (Negative) Urine Glucose (UA) Negative (Negative) Urine Ketones Negative (Negative) Urine Blood 3+ H (Negative) Urine Nitrite Negative (Negative) Urine Bilirubin Negative (Negative) Urine Urobilinogen Negative (Negative) Ur Leukocyte Esterase Trace H (Negative) Urine WBC (Auto) 10-30 H (0-5) /hpf Urine RBC (Auto) >30 H (0-4) /hpf U Hyaline Cast (Auto) 5-10 H (0-5) /lpf U Epithel Cells (Auto) >30 H (0-5) /lpf Urine Bacteria (Auto) Negative (Negative) SARS-CoV-2, RNA, NAAT NEGATIVE (NEGATIVE) Administered Medications Discontinued Medications Acetaminophen (Acetaminophen 500 Mg Tab) 500 mg PO NOW STA Stop: 06/28/22 15:47 Last Admin: 06/28/22 15:51 Dose: 500 mg Documented By: HJW Imaging Data Radiologist's Impression: Chest X-Ray 06/28/22 14:04 XR chest 1V portable CLINICAL HISTORY: weakness COMPARISON STUDY: Chest radiograph June 03, 2020. FINDINGS: Dual lead left subclavian pacer is in place. Lung volumes are normal. Lungs are clear. There is no pneumothorax or pleural effusion. Cardiac size is normal. Hiatal hernia is again noted. There is no evidence for pulmonary edema. Several old left-sided rib fractures are incidentally noted. IMPRESSION: No acute cardiopulmonary findings. ACT 112: Negative or not required by law. Electronically signed by: Hardik Fernandez M.D. 06/28/2022 2:57 PM Discharge Plan Visit Data Chief Complaint: Weakness Stated Complaint: WEAKNESS, GENERALIZED PAIN, CAT BITE, DIZZY ED Provider: Luis Armando Ceja Discharge Problem: Weakness, Need for physical therapy assessment Patient Disposition: Admitted As Inpatient Discharge Instructions Interventions: ED Discharge Assessment Last Done: 06/28/22 18:31
[2022-06-28 14:24] LABS: Basophils # (auto) 0.05 K/uL (0-0.2); Basophils % (auto) 0.6 %; Eosinophils # (auto) 0.44 K/uL (0-0.50); Eosinophils % (auto) 5.3 %; Hematocrit (blood only) 46.6 % (34.1-44.9); Hemoglobin 15.1 g/dl (12.0-16.0); Immature Granulocytes # (auto) 0.03 K/uL (0.00-0.02); Immature Granulocytes % (auto) 0.4 %; Lymphocytes # (auto) 2.61 K/uL (1.2-3.4); Lymphocytes % (auto) 31.5 %; Mean Corpuscular Hemoglobin 28.8 pg (25.0-34.0); Mean Corpuscular Hgb Conc 32.4 g/dL (32.0-36.0); Mean Corpuscular Volume 88.8 fL (80.0-100.0); Monocytes # (auto) 0.56 K/uL (0.24-0.82); Monocytes % (auto) 6.8 %; Neutrophils % (auto) 55.4 %; Platelet Count 356 K/uL (130-400); RDW Coefficient of Variation 14.4 % (11.5-14.5); RDW Standard Deviation 46.1 fL (36.4-46.3); Red Blood Count 5.25 M/uL (3.93-5.22); White Blood Count 8.29 K/ul (4.8-10.8)
[2022-06-28 14:51] LABS: Troponin I High Sensitivity 9.9 pg/ml (0-14)
[2022-06-28 14:55] LABS: Albumin Globulin Ratio 1.2 (0.9-2); Albumin Level 3.6 gm/dl (3.4-5.0); BUN Creatinine Ratio 12.9 (10-20); Bilirubin,Total 0.6 mg/dl (0.2-1.0); Calcium 10.6 mg/dl (8.5-10.1); Creatinine Clr Calc Pharmacy 30.3 ml/min; Est GFR (Non-African American) 34.5 ml/min; Potassium 4.4 mmol/L (3.5-5.1); Total Protein 6.6 gm/dl (6.0-8.3)
--- NOTE | 2022-06-28 14:58 | XRay Report ---
XR chest 1V portable CLINICAL HISTORY: weakness COMPARISON STUDY: Chest radiograph June 03, 2020. FINDINGS: Dual lead left subclavian pacer is in place. Lung volumes are normal. Lungs are clear. Ther e is no pneumothorax or pleural effusion. Cardiac size is normal. Hiatal hernia is again noted. There is no evidence for pulmonary edema. Several old left-sided rib fractures are incidentally noted. IMPRESSION: No acute cardiopulmonary findings. ACT 112: Negative or not required by law. Electronically signed by: Hardik Fernandez M.D. 06/28/2022 2:57 PM
--- NOTE | 2022-06-28 15:09 | Electrocardiogram Report ---
Test Reason : Blood Pressure : / mmHG Vent. Rate : 063 BPM Atrial Rate : 050 BPM P-R Int : 000 ms QRS Dur : 070 ms QT Int : 400 ms P-R-T Axes : 000 011 195 degrees QTc Int : 409 ms Poor data quality, interpretation may be adversely affected Ventricular-paced rhythm Underlying rhythm atrial fibrillation Abnormal ECG When compared with ECG of 20-JUN-2021 20:00, Electronic ventricular pacemaker now present Sinus rhythm no longer present Confirmed by Sarthak Dickson ([id number]) on 06/28/2022 3:09:23 PM Referred By: Confirmed By:Sarthak Dickson
[2022-06-28] MEDS ORDERED: ACETAMINOPHEN 500 MG TAB PO STA (15:46)
--- NOTE | 2022-06-28 16:33 | History & Physical Report ---
Date of Service June 28, 2022 Assessment & Plan (1) Weakness: Plan: - Admit to med surg - PT/OT consults placed - pt at least will need inpatient rehab with possible placement - Follow urine culture as pt notes increased incontinence. UA appears slightly dirty but no bacteria, WBC 10-30, Does not appear to be infectious, afebrile, no wbc, cxr negative, does not endorse any infectious-like symptoms on admission. - no fall history but will place on fall precautions (2) Paroxysmal atrial fibrillation: (3) Diastolic CHF: (4) CAD (coronary artery disease): (5) Dyslipidemia: (6) HTN (hypertension): (7) Anticoagulated: Plan: - Rate controlled, ventricularly paced - Cont home meds including amiodarone, aspirin, isosorbide mononitrate - Continue coumadin - Daily INR - EKG reviewed personally, ventricularly paced with underlying afib (8) DM type 2 (diabetes mellitus, type 2): Plan: - ISS with accuchecks achs - Last a1c 6.2 on 11/14/21 - recheck with am labs - Patient is not on any medications, and does not use diabetic diet, monitor glucose (9) CKD stage 3 due to type 1 diabetes mellitus: Plan: -History of such, creatinine 1.39, BUN 18 appears to be at baseline (10) GERD (gastroesophageal reflux disease): Plan: - Stable (11) Polymyalgia rheumatica: Plan: - Noted, no recent needs for prednisone for any flares DVT PPx: - teds, scds, Coumadin CODE: Full code Dispo: From home, likely to remain in the hospital x 1-2 days. PT/OT consults A total of 77 minutes were spent with greater than 50% of that time face to face with the patient, personally reviewing all current laboratories, imaging studies, past medication reconciliation, outpatient chart review, and discussion with specialists to collaborate care for the patient with attending. Please see attending documentation for corrections and/or additions. History of Present Illness Primary Care Provider: Steve Hooker MD This is a 87-year-old female with PMHx of Atrial fib on coumadin, chronic diastolic CHF, HTN, HLD, DM type II, cardiac pacemaker, hx of TIA in 2020, polymyalgia rheumatica, asthma, osteoporosis, GERD, urinary incontinence, who presents to the hospital with worsening weakness. Pt lives at home by herself and her daughter, Saray, has urged her to come to the ER. Pt reports feeling like she is "washed up and falling apart". She says things at home have been worsening over the past few months. About 1 week ago pt was scratched by a cat, and has a right hand blister and her skin was bright red with infection streaking up her arm. She went to [facility] and was given an IV antibiotic there and sent home with a course of antibiotics x 5 days (Augmentin 875 mg BID x 5d) - finished that this morning or last night. Pt denies fever, chills or sweats now and reports her arm does not hurt anymore. She admits to having headaches on a daily basis for the past 1-2 weeks, location is all over, and is taking tylenol which alleviates some of the pain. Her headache currently is better now s/p Tylenol in the ER, and rates it 5/10. Pt also reports that her memory is not great, feels forgetful. Generalized weakness has been worsening over the past few months as well. Denies any falls, uses a cane/walker and/or rollator for ambulation assistance. In the past she has participated with outpatient PT/OT and where the therapist comes to her house. The last time she had PT was a few months ago, and does not participate in it herself because a lot of the therapy moves hurt her, therefore she doesn't want to do them without motivation. She has chronic back, hip, knee pain which she takes Tylenol for. Allergies Allergy/AdvReac Type Severity Reaction Status Date / Time metoclopramide Allergy Intermediate neuro Verified 06/28/22 16:58 complications adhesive Allergy Unknown ALLERGY TO Verified 06/28/22 16:58 TAPE naproxen [From Naprosyn] AdvReac Intermediate CAN'T Verified 06/28/22 16:58 TOLERATE, DEPRESSED, EMOTIONAL doxycycline AdvReac Mild n/v Verified 06/28/22 16:58 Home Medications Medication Instructions Recorded Confirmed Type albuterol sulfate 90 mcg/actuation 2 puff inhalation QID PRN 08/20/19 06/28/22 History aerosol inhaler (Ventolin HFA) Shortness Of Breath aspirin 81 mg tablet,delayed 81 mg PO [id number] 08/20/19 06/28/22 History release atorvastatin 40 mg tablet 40 mg PO QAM 08/20/19 06/28/22 History diclofenac sodium 1 % topical gel 4 g topical QID PRN Pain 08/20/19 06/28/22 His tory isosorbide mononitrate 30 mg 30 mg PO QAM 08/20/19 06/28/22 History tablet,extended release 24 hr lactobacillus combination no.4 3 3 mmu cells PO QAM 08/20/19 06/28/22 History billion cell capsule (Probiotic) magnesium oxide 400 mg PO QAM 08/20/19 06/28/22 History omeprazole 20 mg capsule,delayed 20 mg PO DAILYBB 08/20/19 06/28/22 History release potassium chloride 10 mEq 10 meq PO QAM 08/20/19 06/28/22 History tablet,extended release(part/cryst) (Klor-Con M) amiodarone 200 mg tablet 100 mg PO QAM 06/03/20 06/28/22 History polyethylene glycol 3350 17 gram 17 g PO DAILY PRN constipation #30 06/13/20 06/28/22 Rx oral powder packet (Miralax) ea acetaminophen 500 mg tablet 1,000 mg PO Q6H PRN Pain 06/20/21 06/28/22 History (Tylenol Extra Strength) biotin 10,000 mcg capsule 10,000 mcg PO DAILY 06/20/21 06/28/22 History levetiracetam 500 mg tablet 500 mg PO BID 06/20/21 06/28/22 History metoprolol succinate 25 mg 12.5 mg PO DAILY 06/20/21 06/28/22 History tablet,extended release 24 hr multivitamin-ferrous 1 tab PO DAILY 06/20/21 06/28/22 History fumarate-folic acid 18 mg-400 mcg tablet (Centrum) oxycodone-acetaminophen 10 mg-325 1 tab PO Q6H PRN Pain 06/20/21 06/28/22 History mg tablet simethicone 80 mg chewable tablet 80 mg PO Q8H PRN Gastric Reflux 06/20/21 06/28/22 History trazodone 50 mg tablet 25 mg PO HS 06/20/21 06/28/22 History warfarin 4 mg tablet See Rx Instructions .Route .COMPLEX 06/20/21 06/28/22 History docusate sodium 100 mg capsule 200 mg PO DAILY 06/28/22 06/28/22 History duloxetine 60 mg capsule,delayed 60 mg PO QAM 06/28/22 06/28/22 History release Past Med/Surg History Medical History CAD (coronary artery disease) "1996 - PTCA to RCA 2011 - cath that showed patent RCA and no further disease" Chronic back pain CKD stage 3 due to type 1 diabetes mellitus Diastolic CHF DM type 2 (diabetes mellitus, type 2) Dyslipidemia GERD (gastroesophageal reflux disease) History of nephrolithiasis Polymyalgia rheumatica Surgical History History of cystoscopy History of lithotripsy History of PTCA S/P appendectomy S/P cholecystectomy S/P hysterectomy Family History Aunt Breast cancer Mother Diabetes Coronary heart disease Father Silicosis Social History Smoking Status: Former smoker Tobacco Type: Cigarettes packs per day: 0.5; Second Hand Exposure: No; Hx Alcohol Use: Yes Alcohol type: other Hx Substance Use: No Preferred Language: Mozambican Communication Ability: Effective Visual Impairment: Partially Limited Clinical Documentation Consultant Required: No Beliefs That Will Affect Care: None marital status: / Current Living Situation: Alone Other Information That Helps Us Care for You: No Feels Safe at Home: Yes Safety Concerns: Feels Safe At This Time Assistive Devices: Cane, Denture - Upper, Denture - Lower and Walker Review of Systems Review of Systems: Constitutional: No fever, sweats or chills Eyes: No diplopia, no worsening or blurred vision ENT: normal hearing, no trouble swallowing Respiratory: No cough, sputum, dyspnea at rest or on exertion Cardiovascular: No chest pain, tightness or palpitations Abdomen: No pain, nausea, vomiting, diarrhea or constipation Musculoskeletal: +chronic hip, back and knee joint pain, no calf pain, swelling Neurologic: + generalized weakness, numbness/tingling, as per HPI re balance problems Psychiatric: No anxiety or depression Skin: No rash or itch Physical Exam Physical Exam: General: awake, alert, no apparent distress, obese with BMI of 32.6 Head: Normocephalic, atraumatic ENT: PERRL, EOMI, no pharyngeal exudate, mucous membranes moist Chest: Clear to auscultation, on room air, no adventitious breath sounds Cardiac: Ventricularly paced rhythm, no murmur, no JVD, normal peripheral pulses, good capillary refill Abdominal: NABS x 4 quadrants, soft, nondistended, nontender to palpation, no rebound or guarding Extremities: Normal inspection, +peripheral edema BLE at feet and ankles, non pitting, + chronic skin changes from coumadin, no erythema, calfs nontender to palpation Psych: Normal mood and affect Neuro: AAO x 3, strength intact bilaterally and rated 5/5, no motor deficits, speech is clear, no peripheral sensory deficits Results & Data Results & Data ([facility]) Vital Signs (Past 12 Hours) Vital Signs Temp Pulse Pulse Resp BP BP Pulse Ox 06/28/22 14:13 71 18 164/103 H 95 06/28/22 14:13 95 06/28/22 14:04 95 06/28/22 13:20 36.0 C L 81 18 138/104 H O2 Del Method 06/28/22 14:13 Room Air 06/28/22 14:13 Room Air 06/28/22 14:04 Room Air 06/28/22 13:20 Laboratory Results 06/28/22 06/28/22 06/28/22 14:15 13:43 13:43 WBC RBC Hgb Hct MCV MCH MCHC RDW Std Deviation RDW Coeff of Tab Plt Count MPV Immature Gran % (Auto) Neut % (Auto) Lymph % (Auto) [place] % (Auto) Eos % (Auto) Baso % (Auto) Neut # (Auto) Lymph # (Auto) [place] # (Auto) Eos # (Auto) Baso # (Auto) Immature Gran # (Auto) Sodium 139 Potassium 4.4 Chloride 105 Carbon Dioxide 28 Anion Gap 6 BUN 18 Creatinine 1.39 H Est Cr Clr Drug Dosing 30.3 Est GFR ( Amer) 40.0 Est GFR (Non-Af Amer) 34.5 BUN/Creatinine Ratio 12.9 Glucose 114 H Calcium 10.6 H Total Bilirubin 0.6 AST 21 ALT 18 Alkaline Phosphatase 123 H Troponin I High Sens 9.9 Total Protein 6.6 Albumin 3.6 Globulin 3.0 Albumin/Globulin Ratio 1.2 TSH 2.101 SARS-CoV-2, RNA, NAAT NEGATIVE 06/28/22 13:43 WBC 8.29 RBC 5.25 H Hgb 15.1 Hct 46.6 H MCV 88.8 MCH 28.8 MCHC 32.4 RDW Std Deviation 46.1 RDW Coeff of Tab 14.4 Plt Count 356 MPV 10.0 Immature Gran % (Auto) 0.4 Neut % (Auto) 55.4 Lymph % (Auto) 31.5 [place] % (Auto) 6.8 Eos % (Auto) 5.3 Baso % (Auto) 0.6 Neut # (Auto) 4.60 Lymph # (Auto) 2.61 [place] # (Auto) 0.56 Eos # (Auto) 0.44 Baso # (Auto) 0.05 Immature Gran # (Auto) 0.03 H Sodium Potassium Chloride Carbon Dioxide Anion Gap BUN Creatinine Est Cr Clr Drug Dosing Est GFR ( Amer) Est GFR (Non-Af Amer) BUN/Creatinine Ratio Glucose Calcium Total Bilirubin AST ALT Alkaline Phosphatase Troponin I High Sens Total Protein Albumin Globulin Albumin/Globulin Ratio TSH SARS-CoV-2, RNA, NAAT Diagnostic Findings Chest X-Ray 06/28/22 14:04 XR chest 1V portable CLINICAL HISTORY: weakness COMPARISON STUDY: Chest radiograph June 03, 2020. FINDINGS: Dual lead left subclavian pacer is in place. Lung volumes are normal. Lungs are clear. There is no pneumothorax or pleural effusion. Cardiac size is normal. Hiatal hernia is again noted. There is no evidence for pulmonary edema. Several old left-sided rib fractures are incidentally noted. IMPRESSION: No acute cardiopulmonary findings. ACT 112: Negative or not required by law. Electronically signed by: Hardik Fernandez M.D. 06/28/2022 2:57 PM ECG Additional Comments: 28-JUN-2022 13:35:24 [facility]-EDSTAT ROUTINE RETRIEVAL Poor data quality, interpretation may be adversely affected Ventricular-paced rhythm Underlying rhythm atrial fibrillation Abnormal ECG When compared with ECG of 20-JUN-2021 20:00, Electronic ventricular pacemaker now present Sinus rhythm no longer present Confirmed by Sarthak Dickson ([id number]) on 06/28/2022 3:09:23 PM 25mm/s10mm/[id number] 241CID: 3Confirmed By: Sarthak Laurent. rate 63 BPM DC interval * ms QRS duration 70 ms QT/QTc 400/409 ms Code Status & VTE Plan Code Status Full code-discussed with the patient at bedside Supervising Physician Co-Signing Physician Notes I have seen and examined the patient and have discussed the case with the provider above. I agree with the assessment and plan as stated with the following exceptions. 87 yo F who feels she is deteriorating physically and mentally over the past month. She reports urinating "all the time because of my kidney issue" and she is reporting memory loss that is concerning her. She is on coumadin for a history of atrial fibrillation and her right arm is a dark purple color compared with her right. She reports that a cat scratched her two weeks ago and she took a course of oral antibiotics. There are no other symptoms that are concerning her at this point. Her blood pressure was reading high, however, when it is being taken she is grimacing and tensing against the pressure of the cuff. On the left side, she did this and her BP reading was >170, however, on the right she was calm and did not tense up and BP was 156/89. On physical she is in NAD, obese and elderly. She has some erythema on her face in patches including her eyebrows and skin on right arm is erythematous/purple as noted above. Color change appears chronic and is cool to touch as opposed to any acute cellulitis. Cardiac auscultation reveals S1/2 without m/g/r and there is no peripheral edema or JVD. She examines as euvolemic. Lungs are clear to auscultation throughout. Axillary LNs were not palpable on her right axilla. Workup for her generalized weakness and nonspecific symptoms included normal CBC, INR 2.5 on coumadin, normal chemistry with a chemistry of 1.4 which is her baseline. Blood glucose is normal. Calcium slightly elevated at 10.6, liver panel WNL with mild elevation of alk phos. HS trop is normal and urinalysis reveals active sediment with blood and protein. No bacteria and trace LE is seen. (She has a h/o gross hematuria last fall and her doctor of nursing practice ordered renal US that showed a probable left renal stone. She has consistently had microscopic hematuria for at least two years per record review. She also had proteinuria at that time and PTH was elevated to 162.) 87 yo female with generalized weakness and memory issues. Her blood pressure is likely elevated as a result of the situation. Will add a low dose norvasc to her regimen for now and continue to monitor. Regarding her history of cat scratch with subsequent infection, will order blood cultures to ensure no bacteria got into her blood. Her arm is dark purple in color likely related to recent inflammation in the setting of coumadin use. It is concerning that she has ongoing hematuria and proteinuria. She may benefit from cystoscopy to rule out concerning causes of her hematuria which has traditionally been blamed on a renal stone, given her overall decline. Consider urology consult. Additionally, will repeat protein/creat ratio now for monitoring of her proteinuria. Consider nephrology consult. Will assess her functional status with PT and OT to better understand her needs and go from there. TSH within norm al limits. Will order additional workup to evaluate her hypercalcemia. Also, Keppra may be causing side effects, although she has been on this fdc. Would keep on board now but consider in the differential. Trazodone may also be causing some issues with side effects or polypharmacy. Otherwise continue plan as noted above. DO Fran
[2022-06-28 16:44] LABS: Appearance Urine Cloudy (Clear); Bacteria Urine Automated Negative (Negative); Bilirubin Urine Negative (Negative); Blood Urine 3+ (Negative); Color Urine Dark Yellow; Epithelial Cell Urine Auto >30 /lpf (0-5); Glucose Urine UA Negative (Negative); Ketones Urine Negative (Negative); Leukocyte Esterase Urine Trace (Negative); Nitrite Urine Negative (Negative); Protein Urine 1+ (Negative); RBC Urine Automated >30 /hpf (0-4); Specific Gravity Urine 1.025 (1.000-1.030); Urobilinogen Urine Negative (Negative); pH Urine 5.5 (4.5-7.5)
[2022-06-28 18:09] LABS: INR 2.5 (0.9-1.1); Prothrombin Time 25.1 Seconds (9.0-12.0)
[2022-06-28] MEDS ORDERED: oxyCODONE/ACETAMINOPHEN 10-325 TAB PO PRN (19:13)
[2022-06-28] MEDS ORDERED: ALBUTEROL HFA 8 GM INHALER INH PRN (19:13)
[2022-06-28] MEDS ORDERED: WARFARIN SOD 4 MG TAB PO ONE (19:13)
[2022-06-28] MEDS ORDERED: DICLOFENAC SOD 1% GEL 100 GM TUBE EXT PRN (19:13)
[2022-06-28] MEDS: traZODone HCL 50 MG TAB PO SCH (20:30)
[2022-06-28] MEDS: levETIRAcetam 500 MG TAB PO SCH (20:31)
[2022-06-28] MEDS: amLODIPine BESYLATE 5 MG TAB PO SCH (20:31)
[2022-06-28 21:27] LABS: Bacteria Urine Automated Negative (Negative); Epithelial Cell Urine Auto >30 /lpf (0-5); RBC Urine Automated >30 /hpf (0-4)
[2022-06-28 21:29] LABS: Creatinine Urine Random 169.5 mg/dl; Protein Creatinine Ratio Urine 0.3 (0-0.2); Total Protein Urine Random 49.5 mg/dl (0-11.9)
[2022-06-29] MEDS: ACETAMINOPHEN 500 MG TAB PO PRN ×2 (03:02→22:44)
[2022-06-29] MEDS: PANTOprazole 40 MG TAB PO SCH (06:02)
[2022-06-29] MEDS: ISOSORBIDE MONO EXTENDED REL 30 MG TABCR PO SCH (08:52)
[2022-06-29] MEDS: levETIRAcetam 500 MG TAB PO SCH ×2 (08:52→20:21)
[2022-06-29] MEDS: METOPROLOL SUCC 25MG EXT REL TAB PO SCH (08:53)
[2022-06-29] MEDS: DOCUSATE SODIUM 100 MG CAP PO SCH (08:53)
[2022-06-29] MEDS: MAGNESIUM OXIDE 400 MG TAB PO SCH (08:53)
[2022-06-29] MEDS: AMIODARONE 200 MG TAB PO SCH (08:53)
[2022-06-29] MEDS: ATORVASTATIN 40 MG TAB PO SCH (08:54)
[2022-06-29] MEDS: DULoxetine HCL 60 MG CAP PO SCH (08:54)
[2022-06-29] MEDS: ASPIRIN 81 MG ECTAB PO SCH (08:54)
[2022-06-29] MEDS ORDERED: POTASSIUM CHLORIDE 10 MEQ TABCR PO SCH (09:00)
[2022-06-29] MEDS ORDERED: INFLUENZA VACCINE HIGH DOSE PF 65+ 0.7 ML SYR IM ONE (09:00)
[2022-06-29] MEDS ORDERED: cefTRIAXone SODIUM 1,000 MG in DEXTROSE 5% AD-VAN 50 ML IV SCH (09:30)
[2022-06-29] MEDS ORDERED: cefTRIAXone SODIUM 2,000 MG in DEXTROSE 5% 50 ML IV SCH (09:45)
[2022-06-29 10:11] LABS: INR 2.2 (0.9-1.1); Prothrombin Time 22.1 Seconds (9.0-12.0)
--- NOTE | 2022-06-29 12:49 | Consultation Report ---
NEPHROLOGY CONSULTATION NOTE DATE OF SERVICE: 06/29/2022. REASON FOR CONSULTATION: Microscopic hematuria and proteinuria. HISTORY OF PRESENT ILLNESS: The patient is an 87-year-old female who was admitted yesterday through the Emergency Department where she presented with weakness of generalized type. The patient lives at home by herself and her daughter, was advised to come to the Emergency Department. It seems like she has been getting progressively weak for the last few months and unable to take care of herself at home. She also had a scratch by a cat about a week ago for which she has been taking antibiotics. Workup done in the Emergency Department showed some microscopic hematuria as well as mild proteinuria with a protein to creatinine ratio of 0.3. She recently did have a urinary tract infection back in 06/20/2022, and did receive antibiotics. Recently had a CT abdomen and pelvis done, which also showed mild left hydronephrosis with recently passed kidney stone. The patient is really not able to give me any meaningful history. Her creatinine is about 1.4, which is close to her baseline. At this point, she appears to be hemodynamically stable and arrangements are being done to transfer to a rehab place. She does not have any significant lower extremity edema and her albumin is close to normal. ALLERGIES: Reviewed. MEDICATIONS: Home medication list was reviewed in detail and is as per the reconciliation list and H and P. PAST MEDICAL AND SURGICAL HISTORY: Includes coronary artery disease with history of angioplasty, chronic back pain, CKD stage III, due to diabetes, with a baseline creatinine, which fluctuates, but in the low 1s, history of diastolic congestive heart failure, dyslipidemia, gastroesophageal reflux disease, history of kidney stone with history of lithotripsy in the past as well as history of cystoscopy, history of angioplasty, appendicectomy, cholecystectomy and hysterectomy. FAMILY HISTORY: Negative for renal disease or dialysis. SOCIAL HISTORY: Former smoker. No regular alcohol now. No smoking. She is a , lives alone. She uses cane as well as walker for ambulation. REVIEW OF SYSTEMS: Very hard to obtain as the patient really does not recall anything that happened prior to hospital admission. She says she was getting very weak and unable to take care of herself at home. PHYSICAL EXAMINATION: GENERAL: Elderly white female who is awake, alert and oriented x3, but unable to recall recent events that led to hospitalization. Unable to tell me any meaningful history as well as her medical history. VITAL SIGNS: Blood pressure 160/82, pulse rate 63, temperature 36.5, 95% on room air, respiratory rate 18. HEENT: Mucous membrane is moist. NECK: Supple. No jugular venous distention. CHEST: Bilaterally clear to auscultation. CARDIOVASCULAR: S1 and S2, regular. ABDOMEN: Soft, nontender, slightly obese. EXTREMITIES: Show trace edema. LABORATORY TEST: Urine test shows blood, lots of WBCs, RBCs, hyaline casts, epithelial cells. Urine protein to creatinine ratio was 0.3. Serum albumin is 3.6. Creatinine on admission yesterday was 1.39. Electrolytes were otherwise unremarkable other than slightly high calcium of 10.6, but the ionized calcium was normal this morning. PTH is also pending. Phosphorus is pending. ASSESSMENT AND PLAN: An 87-year-old female admitted with nonspecific symptoms including generalized weakness. I have been consulted for microscopic hematuria and proteinuria. 1. Microscopic hematuria. 2. Proteinuria. However, both of these findings are very nonspecific and of no significant clinical relevance at this point of time. Proteinuria is only 0.3 by the ratio which in an 87-year-old is really not significant and does not signify any underlying kidney disease. This is not a case of nephrotic syndrome and does not warrant any further workup. Also the presence of microscopic hematuria is very common in female at this age. Also she recently passed a kidney stone as well as had a urinary tract infection. It is quite possible she has urinary tract infection at this time also, but the urine culture is pending at this time. No further workup is needed other than to follow the urine culture report as well as blood culture report and treat if positive. Given that she had a left sided hydronephrosis on the recent CT scan done 10 days ago, I do want to repeat a renal ultrasound just to rule out hydronephrosis. She had kidney stone on the CT scan, which in itself can cause some microscopic hematuria. However, this does not need a full serological workup to rule out glomerulonephritis. Job ID: [id number] [facility]
[2022-06-29] MEDS ORDERED: WARFARIN SOD 6 MG TAB PO SCH (16:00)
--- NOTE | 2022-06-29 17:42 | Hospitalist Progress Note ---
Date of Service June 29, 2022 Assessment & Plan (1) Weakness: Plan: Patient is an 87-year-old female with history of generalized weakness, ongoing memory issues. Generalized weakness Ongoing memory issues ? Undiagnosed dementia ? Meds contributing Urine culture not suggestive of UTI Normal TSH Check vitamin B12 May need neurology evaluation as outpatient PT/OT Fall precautions check CT head Avoid narcotics as able Recent cat scratch Completed p.o. antibiotic course as outpatient Blood cultures pending No indication for antibiotics currently Mild hematuria Mild proteinuria H/O Obstructive uropathy secondary to recent renal calculus Hematuria, proteinuria likely secondary to elderly, renal stone --CT ABD from 06/20/21:Mild left-sided hydroureteronephrosis is likely secondary to a recently passed 5 mm calculus within the dependent urinary bladder. Nonobstructing bilateral nephrolithiasis. No bowel obstruction or bowel wall thickening. Moderate hiatal hernia. Single focus of air within the urinary bladder lumen may be secondary to instrumentation versus gas forming organism. Correlate with urinalysis. -- Urine culture negative for UTI Renal ultrasound pending Appreciate nephrology input (2) Paroxysmal atrial fibrillation: Plan: Continue amiodarone, metoprolol On Coumadin for anticoagulation Monitor INR (3) Diastolic CHF: Plan: Previously on Lasix Patient stopped taking Lasix voluntarily Advised to take Lasix as needed if leg edema worsens (4) CAD (coronary artery disease): Plan: Continue aspirin, statin, metoprolol, isosorbide (5) Dyslipidemia: Plan: On statin (6) HTN (hypertension): Plan: Added amlodipine for better blood pressure control Continue metoprolol Also on isosorbide (7) Anticoagulated: Plan: Management as above (8) DM type 2 (diabetes mellitus, type 2): Plan: - Last a1c 6.2 on 11/14/21 - - Patient is not on any medications, and does not use diabetic diet, monitor glucose -Update HbA1C - (9) CKD stage 3 due to type 1 diabetes mellitus: Plan: Monitor renal function Mild hypercalcemia Ionized calcium within normal limits Phosphorus normal PTH Normal Vitamin D levels normal Monitor calcium levels (10) GERD (gastroesophageal reflux disease): Plan: On PPI (11) Polymyalgia rheumatica: Plan: Stable DVT Px: Coumadin CODE STATUS: Full code Disposition PT OT prior to discharge Admission and Anticipated Discharge Date Admission Date: June 28, 2022 Subjective Patient is seen and examined at bedside States having generalized weakness Ongoing memory issues ~ 2 yrs as per patient Also mild leg edema Denies any chest pain, dyspnea, dizziness, nausea, abdominal pain No other complaints Review of Systems Review of Systems: All systems reviewed & are unremarkable except as noted in Subjective Physical Exam Physical Exam: Physical Exam: Vitals signs as noted above General Appearance:Moderately built and nourished, no apparent distress, Elderly Head: normocephalic, Atraumatic Eyes: normal inspection, EOMI Neck: supple, Trachea midline Respiratory/Chest: Normal breath sounds, CTA, No accessory muscle use Cardiovascular: S1, S2, No murmur Abdomen/GI:Soft, Non tender, Bowel sounds present Extremities/Musculoskeletal:normal inspection, Trace edema Neurologic/Psych:AAOX1, grossly no focal neurological deficits, +Memory issues Skin: normal color, warm Results & Data Results & Data ([facility]) Vital Signs (Past 12 Hours) Vital Signs Temp Pulse Resp BP Pulse Ox O2 Del Method 06/29/22 15:25 65 18 170/98 H 96 Room Air 06/29/22 15:23 97 06/29/22 08:34 160/82 H 06/29/22 08:18 36.5 C 63 18 186/103 H 95 Room Air
[2022-06-29] MEDS: POLYETHYLENE (MIRALAX) 17 GM PACK PO PRN (18:03)
[2022-06-29] MEDS: traZODone HCL 50 MG TAB PO SCH (20:20)
[2022-06-29] MEDS: amLODIPine BESYLATE 5 MG TAB PO SCH (20:21)
--- NOTE | 2022-06-29 20:43 | Ultrasound Report ---
US renal/blad retro comp HISTORY: 87 years-old Female kiney stone and f/u ecent Hydronephrosis follow-up study in a patient w ith nephrolithiasis and left hydronephrosis. COMPARISON: CT June 20, 2021 TECHNIQUE: Multiple real-time sonographic images of the kidneys and bladder were obtained assessing g rayscale appearance and color flow FINDINGS: Limited exam secondary to patient body habitus. The right kidney measures 9.0 cm in length. The left kidney measures 9.5 cm in length. Resolution of the previously described left-sided hydronephrosis. No renal calculi are identified by ultrasound. Decompressed or bladder. Ureteral jets are not identified. IMPRESSION: 1. Resolution of the previously described left-sided hydronephrosis. 2. No renal calculi are identified by ultrasound. 3. Decompressed urinary bladder. ACT 112: Negative or not required by law. The above report was generated using voice recognition software. It may contain grammatical, syntax o r spelling errors. Electronically signed by: Andrea Pierce M.D. 06/29/2022 8:41 PM
[2022-06-30] MEDS ORDERED: MELATONIN 3 MG TAB PO PRN (02:02)
[2022-06-30] MEDS: PANTOprazole 40 MG TAB PO SCH (05:35)
[2022-06-30 07:26] LABS: Hematocrit (blood only) 41.1 % (34.1-44.9); Hemoglobin 13.7 g/dl (12.0-16.0); Mean Corpuscular Hemoglobin 28.7 pg (25.0-34.0); Mean Corpuscular Hgb Conc 33.3 g/dL (32.0-36.0); Mean Corpuscular Volume 86.2 fL (80.0-100.0); Mean Platelet Volume 9.9 fL (9.4-12.3); Platelet Count 292 K/uL (130-400); RDW Coefficient of Variation 14.1 % (11.5-14.5); RDW Standard Deviation 43.8 fL (36.4-46.3); Red Blood Count 4.77 M/uL (3.93-5.22); White Blood Count 8.08 K/ul (4.8-10.8)
[2022-06-30 07:41] LABS: Prothrombin Time 30.3 Seconds (9.0-12.0)
[2022-06-30 07:52] LABS: BUN Creatinine Ratio 16.1 (10-20); Calcium 9.7 mg/dl (8.5-10.1); Creatinine Clr Calc Pharmacy 28.8 ml/min; Est GFR (African American) 38.6 ml/min; Est GFR (Non-African American) 33.3 ml/min; Magnesium 1.6 mg/dl (1.7-2.4); Potassium 3.9 mmol/L (3.5-5.1)
[2022-06-30] MEDS: POLYETHYLENE (MIRALAX) 17 GM PACK PO PRN (08:03)
[2022-06-30] MEDS: METOPROLOL SUCC 25MG EXT REL TAB PO SCH (09:25)
[2022-06-30] MEDS: DOCUSATE SODIUM 100 MG CAP PO SCH (09:26)
[2022-06-30] MEDS: amLODIPine BESYLATE 5 MG TAB PO SCH (09:26)
[2022-06-30] MEDS: levETIRAcetam 500 MG TAB PO SCH ×2 (09:26→20:03)
[2022-06-30] MEDS: MAGNESIUM OXIDE 400 MG TAB PO SCH (09:26)
[2022-06-30] MEDS: AMIODARONE 200 MG TAB PO SCH (09:26)
[2022-06-30] MEDS: DULoxetine HCL 60 MG CAP PO SCH (09:26)
[2022-06-30] MEDS: ATORVASTATIN 40 MG TAB PO SCH (09:26)
[2022-06-30] MEDS: ISOSORBIDE MONO EXTENDED REL 30 MG TABCR PO SCH (09:26)
[2022-06-30 09:59] LABS: Estimated Average Glucose 128 mg/dl; Hemoglobin A1C 6.1 % (4.5-5.6)
[2022-06-30] MEDS ORDERED: MAGNESIUM SULFATE / D5W 1 GM/100 ML BAG IV ONE (10:27)
[2022-06-30] MEDS: LIDOCAINE 5% 1 PATCH TD SCH (12:54)
--- NOTE | 2022-06-30 13:18 | CT Scan Report ---
CT head/brain wo con CLINICAL HISTORY: H/O CVA, worsening memory Technique: Contiguous axial CT images of the head were acquired from the base of the skull to the danielle dg without intravenous contrast administration. Images were viewed in brain, subdural and bone windo ws. Automated dose lowering techniques and/or adjustment according to patient size were utilized for this exam. Comparison: Comparison is made to CTA head 06/10/2020 Findings: Areas of decreased attenuation are present in the periventricular and subcortical white matter bilate rally consistent with small vessel ischemic disease. Generalized cerebral atrophy with commensurate e nlargement of the ventricles, sulci, and cisterns is also present. There is no acute intracranial hem orrhage or evidence of acute territorial infarction. No shift of the midline structures, mass effect, or extra-axial abnormalities are shown. Atherosclerotic calcifications are present in the intracran ial segments of the internal carotid arteries. Mucous retention cyst is seen in the right sphenoid sinus. The orbits appear normal. There are no ac demetrius fractures of the calvaria or scalp swelling. Impression: No acute intracranial hemorrhage, no evidence of acute territorial infarction or other acute intracra nial disease process. ACT 112: Negative or not required by law. Electronically signed by: Niraj Chamorro M.D. 06/30/2022 1:16 PM
[2022-06-30] MEDS: FUROSEMIDE 20 MG TAB PO SCH (14:15)
[2022-06-30] MEDS ORDERED: WARFARIN SOD 4 MG TAB PO ONE (16:00)
--- NOTE | 2022-06-30 16:03 | Hospitalist Progress Note ---
Date of Service June 30, 2022 Assessment & Plan (1) Weakness: Plan: Patient is an 87-year-old female with history of generalized weakness, ongoing memory issues. Generalized weakness Ongoing memory issues ? Undiagnosed dementia ? Meds contributing Urine culture not suggestive of UTI CT head:No acute intracranial hemorrhage, no evidence of acute territorial infarction or other acute intracranial disease process. Normal TSH, vitamin B12 May need neurology evaluation as outpatient PT/OT Fall precautions Avoid narcotics as able Recent cat scratch Completed p.o. antibiotic course as outpatient Blood cultures: No growth to date No indication for antibiotics currently Mild hematuria Mild proteinuria H/O Obstructive uropathy secondary to recent renal calculus Hematuria, proteinuria likely secondary to elderly, renal stone --CT ABD from 06/20/21:Mild left-sided hydroureteronephrosis is likely secondary to a recently passed 5 mm calculus within the dependent urinary bladder. Nonobstructing bilateral nephrolithiasis. No bowel obstruction or bowel wall thickening. Moderate hiatal hernia. Single focus of air within the urinary bladder lumen may be secondary to instrumentation versus gas forming organism. Correlate with urinalysis. -- Urine culture negative for UTI -Renal ultrasound:Resolution of the previously described left-sided hydronephrosis. No renal calculi are identified by ultrasound. Decompressed urinary bladder. Appreciate nephrology input Hypomagnesemia Chronic Replete electrolytes as needed Monitor (2) Paroxysmal atrial fibrillation: Plan: Continue amiodarone, metoprolol On Coumadin for anticoagulation Monitor INR (3) Diastolic CHF: Plan: Previously on Lasix Patient stopped taking Lasix voluntarily Advised to take Lasix as needed if leg edema worsens Restarted lasix 20mg Q72H (4) CAD (coronary artery disease): Plan: Continue aspirin, statin, metoprolol, isosorbide (5) Dyslipidemia: Plan: On statin (6) HTN (hypertension): Plan: Added amlodipine for better blood pressure control Continue metoprolol Also on isosorbide (7) Anticoagulated: Plan: Management as above (8) DM type 2 (diabetes mellitus, type 2): Plan: -HbA1C:6.1 - Patient is not on any medications, and does not use diabetic diet, monitor glucose (9) CKD stage 3 due to type 1 diabetes mellitus: Plan: Monitor renal function Mild hypercalcemia Ionized calcium within normal limits Phosphorus normal PTH Normal Vitamin D levels normal Monitor calcium levels (10) GERD (gastroesophageal reflux disease): Plan: On PPI (11) Polymyalgia rheumatica: Plan: Stable DVT Px: Coumadin CODE STATUS: Full code Disposition PT OT prior to discharge Admission and Anticipated Discharge Date Admission Date: June 28, 2022 Subjective Patient is seen and examined at bedside Reports generalized body ache and weakness Chronic leg edema Denies any chest pain, dyspnea, dizziness, nausea, abdominal pain No other complaints Review of Systems Review of Systems: All systems reviewed & are unremarkable except as noted in Subjective Physical Exam Physical Exam: Physical Exam: Vitals signs as noted above General Appearance:Moderately built and nourished, no apparent distress, Elderly Head: normocephalic, Atraumatic Eyes: normal inspection, EOMI Neck: supple, Trachea midline Respiratory/Chest: Normal breath sounds, CTA, No accessory muscle use Cardiovascular: S1, S2, No murmur Abdomen/GI:Soft, Non tender, Bowel sounds present Extremities/Musculoskeletal:normal inspection, Trace edema Neurologic/Psych:AAOX1, grossly no focal neurological deficits, +Memory issues Skin: normal color, warm Results & Data Results & Data ([facility]) Vital Signs (Past 12 Hours) Vital Signs Temp Pulse Resp BP Pulse Ox O2 Del Method 06/30/22 07:19 36.5 C 64 18 145/81 H 95 Room Air Laboratory Results Short CBC 06/30/22 Range/Units 06:44 WBC 8.08 (4.8-10.8) K/ul Hgb 13.7 (12.0-16.0) g/dl Hct 41.1 (34.1-44.9) % Plt Count 292 (130-400) K/uL BMP 06/30/22 06:44 Sodium 140 Potassium 3.9 Chloride 105 Carbon Dioxide 30 BUN 23 Creatinine 1.43 H Glucose 103 H Calcium 9.7
[2022-06-30] MEDS: WARFARIN SOD 4 MG TAB PO SCH (18:05)
[2022-06-30] MEDS: predniSONE 10 MG TABLET PO SCH (18:05)
[2022-06-30] MEDS: WARFARIN SOD 2 MG TAB PO SCH (18:05)
[2022-06-30] MEDS: traZODone HCL 50 MG TAB PO SCH (20:02)
[2022-07-01] MEDS: PANTOprazole 40 MG TAB PO SCH (05:57)
[2022-07-01] MEDS ORDERED: SIMETHICONE 80 MG CHEW PO STA (06:39)
[2022-07-01 06:55] LABS: Hemoglobin 14.8 g/dl (12.0-16.0); Mean Corpuscular Hemoglobin 29.1 pg (25.0-34.0); Mean Corpuscular Hgb Conc 33.6 g/dL (32.0-36.0); Mean Corpuscular Volume 86.4 fL (80.0-100.0); Mean Platelet Volume 9.9 fL (9.4-12.3); Platelet Count 337 K/uL (130-400); RDW Coefficient of Variation 14.1 % (11.5-14.5); RDW Standard Deviation 44.3 fL (36.4-46.3); Red Blood Count 5.09 M/uL (3.93-5.22); White Blood Count 8.76 K/ul (4.8-10.8)
[2022-07-01 07:16] LABS: BUN Creatinine Ratio 21.6 (10-20); Calcium 10.1 mg/dl (8.5-10.1); Est GFR (African American) 45.4 ml/min; Est GFR (Non-African American) 39.2 ml/min; Magnesium 1.8 mg/dl (1.7-2.4); Potassium 4.3 mmol/L (3.5-5.1)
[2022-07-01 07:33] LABS: INR 3.4 (0.9-1.1); Prothrombin Time 33.5 Seconds (9.0-12.0)
[2022-07-01] MEDS: predniSONE 10 MG TABLET PO SCH (09:36)
[2022-07-01] MEDS: METOPROLOL SUCC 25MG EXT REL TAB PO SCH (09:36)
[2022-07-01] MEDS: ATORVASTATIN 40 MG TAB PO SCH (09:36)
[2022-07-01] MEDS: MAGNESIUM OXIDE 400 MG TAB PO SCH (09:36)
[2022-07-01] MEDS: ISOSORBIDE MONO EXTENDED REL 30 MG TABCR PO SCH (09:36)
[2022-07-01] MEDS: AMIODARONE 200 MG TAB PO SCH (09:37)
[2022-07-01] MEDS: LIDOCAINE 5% 1 PATCH TD SCH (09:37)
[2022-07-01] MEDS: DOCUSATE SODIUM 100 MG CAP PO SCH (09:37)
[2022-07-01] MEDS: DULoxetine HCL 60 MG CAP PO SCH (09:37)
[2022-07-01] MEDS: levETIRAcetam 500 MG TAB PO SCH ×2 (09:42→20:00)
--- NOTE | 2022-07-01 10:54 | Nephrology Progress Note ---
Date of Service July 01, 2022 Assessment & Plan (1) Acute kidney injury superimposed on CKD: Plan: Patient with acute kidney injury in setting of recent ureteral stone. Creatinine increased to 1.4 but downtrending to 1.2 today. Electrolytes are stable. -Encourage adequate hydration. Patient should be drinking at least 64 ounces of fluids daily even on discharge. (2) Hematuria: Plan: Patient with microscopic hematuria likely related to the recent kidney stone which passed. Repeat renal ultrasound did not show obstructive kidney stones. From renal standpoint patient can be discharged and will need a repeat urine microscopy as an outpatient a week from discharge. -Renal will sign off case. Patient can be booked to follow-up with nephrology as an outpatient for additional work-up. Admission and Anticipated Discharge Date Admission Date: June 28, 2022 Subjective Seen for hematuria and proteinuria. She feels better today. Her energy level is improving. Appetite is good. No gross hematuria Review of Systems Review of Systems: All other systems were reviewed and negative except as noted in HPI Physical Exam Physical Exam: General exam: Appears comfortable, no acute distress HEENT: Pupils are equal and reactive to light Neck: No JVD, neck is supple trachea is midline Respiratory system: Clear breath sounds bilaterally. Gastrointestinal: Abdomen is soft, non distended, non tender, bowel sounds are present CVS: Regular rate and rhythm. No murmurs, rubs or gallops Musculoskeletal: No joint or muscle tenderness Extremities: Non tender, no edema, peripheral pulses are present Neuro: Oriented, no tremors, no focal neurological deficits Skin: No rashes Results & Data ([facility]) Vital Signs (Past 12 Hours) Vital Signs Temp Pulse Resp BP Pulse Ox O2 Del Method 07/01/22 08:06 36.7 C 67 18 141/95 H 96 Room Air Laboratory Results 07/01/22 06:37 07/01/22 06:37 WBC 8.76 RBC 5.09 MCV 86.4 MCH 29.1 MCHC 33.6 RDW Std Deviation 44.3 RDW Coeff of Tab 14.1 Plt Count 337 MPV 9.9
--- NOTE | 2022-07-01 16:16 | Hospitalist Progress Note ---
Date of Service July 01, 2022 Assessment & Plan (1) Weakness: Plan: Patient is an 87-year-old female with history of generalized weakness, ongoing memory issues. Generalized weakness Ongoing memory issues ? Undiagnosed dementia ? Meds contributing Urine culture not suggestive of UTI CT head:No acute intracranial hemorrhage, no evidence of acute territorial infarction or other acute intracranial disease process. Normal TSH, vitamin B12 May need neurology evaluation as outpatient PT/OT Fall precautions Avoid narcotics as able Likely needs Rehab placement Recent cat scratch Completed p.o. antibiotic course as outpatient Blood cultures: No growth to date No indication for antibiotics currently Mild hematuria Mild proteinuria H/O Obstructive uropathy secondary to recent renal calculus Hematuria, proteinuria likely secondary to elderly, renal stone --CT ABD from 06/20/21:Mild left-sided hydroureteronephrosis is likely secondary to a recently passed 5 mm calculus within the dependent urinary bladder. Nonobstructing bilateral nephrolithiasis. No bowel obstruction or bowel wall thickening. Moderate hiatal hernia. Single focus of air within the urinary bladder lumen may be secondary to instrumentation versus gas forming organism. Correlate with urinalysis. -- Urine culture negative for UTI -Renal ultrasound:Resolution of the previously described left-sided hydronephrosis. No renal calculi are identified by ultrasound. Decompressed urinary bladder. Appreciate nephrology input -Needs UA rechecked in 1 week as outpatient Hypomagnesemia Chronic Replete electrolytes as needed Monitor (2) Paroxysmal atrial fibrillation: Plan: Continue amiodarone, metoprolol On Coumadin for anticoagulation Monitor INR: 3.4 (3) Diastolic CHF: Plan: Previously on Lasix Patient stopped taking Lasix voluntarily Advised to take Lasix as needed if leg edema worsens Restarted lasix 20mg Q72H (4) CAD (coronary artery disease): Plan: Continue aspirin, statin, metoprolol, isosorbide (5) Dyslipidemia: Plan: On statin (6) HTN (hypertension): Plan: Added amlodipine for better blood pressure control Continue metoprolol Also on isosorbide (7) Anticoagulated: Plan: Management as above (8) DM type 2 (diabetes mellitus, type 2): Plan: -HbA1C:6.1 - Patient is not on any medications, and does not use diabetic diet, monitor glucose (9) CKD stage 3 due to type 1 diabetes mellitus: Plan: Monitor renal function Mild hypercalcemia Ionized calcium within normal limits Phosphorus normal PTH Normal Vitamin D levels normal Monitor calcium levels (10) GERD (gastroesophageal reflux disease): Plan: On PPI (11) Polymyalgia rheumatica: Plan: Stable Continue Prednisone 10mg for now DVT Px: Hold Coumadin INR supratherapeutic CODE STATUS: Full code Disposition PT OT prior to discharge Admission and Anticipated Discharge Date Admission Date: June 28, 2022 Subjective Patient is seen and examined at bedside No new complaints Less generalized pain today Chronic leg edema Denies any chest pain, dyspnea, dizziness, nausea, abdominal pain Review of Systems Review of Systems: All systems reviewed & are unremarkable except as noted in Subjective Physical Exam Physical Exam: Physical Exam: Vitals signs as noted above General Appearance:Moderately built and nourished, no apparent distress, Elderly Head: normocephalic, Atraumatic Eyes: normal inspection, EOMI Neck: supple, Trachea midline Respiratory/Chest: Normal breath sounds, CTA, No accessory muscle use Cardiovascular: S1, S2, No murmur Abdomen/GI:Soft, Non tender, Bowel sounds present Extremities/Musculoskeletal:normal inspection, Trace edema Neurologic/Psych:AAOX1, grossly no focal neurological deficits, +Memory issues Skin: normal color, warm Results & Data Results & Data ([facility]) Vital Signs (Past 12 Hours) Vital Signs Temp Pulse Resp BP Pulse Ox O2 Del Method 07/01/22 15:20 36.4 C L 61 18 151/92 H 98 Room Air 07/01/22 08:06 36.7 C 67 18 141/95 H 96 Room Air Laboratory Results Short CBC 07/01/22 Range/Units 06:37 WBC 8.76 (4.8-10.8) K/ul Hgb 14.8 (12.0-16.0) g/dl Hct 44.0 (34.1-44.9) % Plt Count 337 (130-400) K/uL BMP 07/01/22 06:37 Sodium 137 Potassium 4.3 Chloride 103 Carbon Dioxide 28 BUN 27 H Creatinine 1.25 H Glucose 127 H Calcium 10.1
[2022-07-01] MEDS: amLODIPine BESYLATE 5 MG TAB PO SCH (19:59)
[2022-07-01] MEDS: traZODone HCL 50 MG TAB PO SCH (20:01)
[2022-07-02] MEDS: PANTOprazole 40 MG TAB PO SCH (05:40)
[2022-07-02 08:05] LABS: Creatinine Clr Calc Pharmacy 30.5 ml/min; Est GFR (African American) 41.4 ml/min; Est GFR (Non-African American) 35.7 ml/min; Potassium 3.9 mmol/L (3.5-5.1)
[2022-07-02] MEDS: ASPIRIN 81 MG ECTAB PO SCH (08:07)
[2022-07-02] MEDS: ATORVASTATIN 40 MG TAB PO SCH (08:07)
[2022-07-02] MEDS: AMIODARONE 200 MG TAB PO SCH (08:07)
[2022-07-02] MEDS: DOCUSATE SODIUM 100 MG CAP PO SCH (08:07)
[2022-07-02] MEDS: ISOSORBIDE MONO EXTENDED REL 30 MG TABCR PO SCH (08:07)
[2022-07-02] MEDS: levETIRAcetam 500 MG TAB PO SCH ×2 (08:07→19:57)
[2022-07-02] MEDS: LIDOCAINE 5% 1 PATCH TD SCH (08:08)
[2022-07-02] MEDS: METOPROLOL SUCC 25MG EXT REL TAB PO SCH (08:09)
[2022-07-02] MEDS: MAGNESIUM OXIDE 400 MG TAB PO SCH (08:09)
[2022-07-02] MEDS: predniSONE 10 MG TABLET PO SCH (08:10)
[2022-07-02] MEDS: DULoxetine HCL 60 MG CAP PO SCH (08:11)
[2022-07-02 08:13] LABS: INR 4.8 (0.9-1.1); Prothrombin Time 47.3 Seconds (9.0-12.0)
[2022-07-02] MEDS ORDERED: WARFARIN SOD 6 MG TAB PO SCH (16:00)
--- NOTE | 2022-07-02 17:48 | Hospitalist Progress Note ---
Date of Service July 02, 2022 Assessment & Plan (1) Weakness: Plan: Patient is an 87-year-old female with history of generalized weakness, ongoing memory issues. Generalized weakness Ongoing memory issues ? Undiagnosed dementia ? Meds contributing Urine culture not suggestive of UTI CT head:No acute intracranial hemorrhage, no evidence of acute territorial infarction or other acute intracranial disease process. Normal TSH, vitamin B12 May need neurology evaluation as outpatient PT/OT Fall precautions Avoid narcotics as able Waiting for placement Recent cat scratch Completed p.o. antibiotic course as outpatient Blood cultures: No growth to date No indication for antibiotics currently Mild hematuria Mild proteinuria H/O Obstructive uropathy secondary to recent renal calculus Hematuria, proteinuria likely secondary to elderly, renal stone --CT ABD from 06/20/21:Mild left-sided hydroureteronephrosis is likely secondary to a recently passed 5 mm calculus within the dependent urinary bladder. Nonobstructing bilateral nephrolithiasis. No bowel obstruction or bowel wall thickening. Moderate hiatal hernia. Single focus of air within the urinary bladder lumen may be secondary to instrumentation versus gas forming organism. Correlate with urinalysis. -- Urine culture negative for UTI -Renal ultrasound:Resolution of the previously described left-sided hydronephrosis. No renal calculi are identified by ultrasound. Decompressed urinary bladder. Appreciate nephrology input -Needs UA rechecked in 1 week as outpatient Hypomagnesemia Chronic Replete electrolytes as needed Monitor (2) Paroxysmal atrial fibrillation: Plan: Continue amiodarone, metoprolol On Coumadin for anticoagulation Monitor INR: 3.4>4.8 Denies any bleeding issues (3) Diastolic CHF: Plan: Previously on Lasix Patient stopped taking Lasix voluntarily Advised to take Lasix as needed if leg edema worsens Restarted lasix 20mg Q72H (4) CAD (coronary artery disease): Plan: Continue aspirin, statin, metoprolol, isosorbide (5) Dyslipidemia: Plan: On statin (6) HTN (hypertension): Plan: Added amlodipine for better blood pressure control Continue metoprolol Also on isosorbide (7) Anticoagulated: Plan: Management as above (8) DM type 2 (diabetes mellitus, type 2): Plan: -HbA1C:6.1 - Patient is not on any medications, and does not use diabetic diet, monitor glucose (9) CKD stage 3 due to type 1 diabetes mellitus: Plan: Monitor renal function Mild hypercalcemia Ionized calcium within normal limits Phosphorus normal PTH Normal Vitamin D levels normal Monitor calcium levels (10) GERD (gastroesophageal reflux disease): Plan: On PPI (11) Polymyalgia rheumatica: Plan: Stable Taper down prednisone as able DVT Px: Hold Coumadin INR supratherapeutic CODE STATUS: Full code Disposition PT OT prior to discharge Admission and Anticipated Discharge Date Admission Date: June 28, 2022 Subjective Patient is seen and examined at bedside States feeling tired and feels sleepy this morning " I watched game overnight" Denies any significant generalized pain Chronic leg edema Denies any chest pain, dyspnea, dizziness, nausea, abdominal pain Waiting for placement Review of Systems Review of Systems: All systems reviewed & are unremarkable except as noted in Subjective Physical Exam Physical Exam: Physical Exam: Vitals signs as noted above General Appearance:Moderately built and nourished, no apparent distress, Elderly Head: normocephalic, Atraumatic Eyes: normal inspection, EOMI Neck: supple, Trachea midline Respiratory/Chest: Normal breath sounds, CTA, No accessory muscle use Cardiovascular: S1, S2, No murmur Abdomen/GI:Soft, Non tender, Bowel sounds present Extremities/Musculoskeletal:normal inspection, Trace edema Neurologic/Psych:AAOX1, grossly no focal neurological deficits, +Memory issues Skin: normal color, warm Results & Data Results & Data ([facility]) Vital Signs (Past 12 Hours) Vital Signs Temp Pulse Resp BP BP Pulse Ox O2 Del Method 07/02/22 14:31 36.5 C 60 18 149/82 H 95 Room Air 07/02/22 06:59 36.4 C L 74 18 168/98 H 97 Room Air Laboratory Results [facility] 07/02/22 07:24 Sodium 138 Potassium 3.9 Chloride 105 Carbon Dioxide 30 BUN 31 H Creatinine 1.35 H Glucose 103 H Calcium 10.0
[2022-07-02] MEDS: traZODone HCL 50 MG TAB PO SCH (19:58)
[2022-07-02] MEDS: amLODIPine BESYLATE 5 MG TAB PO SCH (19:58)
[2022-07-03] MEDS: PANTOprazole 40 MG TAB PO SCH (05:42)
[2022-07-03 08:03] LABS: INR 4.2 (0.9-1.1); Prothrombin Time 41.7 Seconds (9.0-12.0)
[2022-07-03] MEDS: ACETAMINOPHEN 500 MG TAB PO PRN ×2 (08:17→19:41)
[2022-07-03] MEDS: ATORVASTATIN 40 MG TAB PO SCH (08:18)
[2022-07-03] MEDS: DULoxetine HCL 60 MG CAP PO SCH (08:18)
[2022-07-03] MEDS: METOPROLOL SUCC 25MG EXT REL TAB PO SCH (08:18)
[2022-07-03] MEDS: predniSONE 5 MG TAB PO SCH (08:18)
[2022-07-03] MEDS: levETIRAcetam 500 MG TAB PO SCH ×2 (08:18→19:43)
[2022-07-03] MEDS: DOCUSATE SODIUM 100 MG CAP PO SCH (08:19)
[2022-07-03] MEDS: MAGNESIUM OXIDE 400 MG TAB PO SCH (08:19)
[2022-07-03] MEDS: ISOSORBIDE MONO EXTENDED REL 30 MG TABCR PO SCH (08:19)
[2022-07-03] MEDS: LIDOCAINE 5% 1 PATCH TD SCH (08:19)
[2022-07-03] MEDS: AMIODARONE 200 MG TAB PO SCH (08:19)
[2022-07-03] MEDS: ALUMINUM/MAGNESIUM/SIMETH (MAALOX MAX) 30 ML UDC PO PRN (10:49)
[2022-07-03] MEDS: FUROSEMIDE 20 MG TAB PO SCH (11:56)
--- NOTE | 2022-07-03 17:09 | Hospitalist Progress Note ---
Date of Service July 03, 2022 Assessment & Plan (1) Weakness: Plan: Patient is an 87-year-old female with history of generalized weakness, ongoing memory issues. Generalized weakness Ongoing memory issues ? Undiagnosed dementia ? Meds contributing Urine culture not suggestive of UTI CT head:No acute intracranial hemorrhage, no evidence of acute territorial infarction or other acute intracranial disease process. Normal TSH, vitamin B12 May need neurology evaluation as outpatient PT/OT Fall precautions Avoid narcotics as able Waiting for placement Monitor Recent cat scratch Completed p.o. antibiotic course as outpatient Blood cultures: No growth to date No indication for antibiotics currently Mild hematuria Mild proteinuria H/O Obstructive uropathy secondary to recent renal calculus Hematuria, proteinuria likely secondary to elderly, renal stone --CT ABD from 06/20/21:Mild left-sided hydroureteronephrosis is likely secondary to a recently passed 5 mm calculus within the dependent urinary bladder. Nonobstructing bilateral nephrolithiasis. No bowel obstruction or bowel wall thickening. Moderate hiatal hernia. Single focus of air within the urinary bladder lumen may be secondary to instrumentation versus gas forming organism. Correlate with urinalysis. -- Urine culture negative for UTI -Renal ultrasound:Resolution of the previously described left-sided hydronephrosis. No renal calculi are identified by ultrasound. Decompressed urinary bladder. Appreciate nephrology input -Needs UA rechecked in 1 week as outpatient Hypomagnesemia Chronic Replete electrolytes as needed Monitor (2) Paroxysmal atrial fibrillation: Plan: Continue amiodarone, metoprolol On Coumadin for anticoagulation Monitor INR: 3.4>4.8>4.2 Denies any bleeding issues (3) Diastolic CHF: Plan: Previously on Lasix Patient stopped taking Lasix voluntarily Advised to take Lasix as needed if leg edema worsens Restarted lasix 20mg Q72H (4) CAD (coronary artery disease): Plan: Continue aspirin, statin, metoprolol, isosorbide (5) Dyslipidemia: Plan: On statin (6) HTN (hypertension): Plan: Added amlodipine for better blood pressure control Continue metoprolol Also on isosorbide (7) Anticoagulated: Plan: Management as above (8) DM type 2 (diabetes mellitus, type 2): Plan: -HbA1C:6.1 - Patient is not on any medications, and does not use diabetic diet, monitor glucose (9) CKD stage 3 due to type 1 diabetes mellitus: Plan: Monitor renal function Mild hypercalcemia Ionized calcium within normal limits Phosphorus normal PTH Normal Vitamin D levels normal Monitor calcium levels (10) GERD (gastroesophageal reflux disease): Plan: On PPI (11) Polymyalgia rheumatica: Plan: Stable On prednisone taper course DVT Px: Hold Coumadin INR supratherapeutic CODE STATUS: Full code Disposition PT OT prior to discharge Admission and Anticipated Discharge Date Admission Date: June 28, 2022 Subjective Patient is seen and examined at bedside States having headache earlier this morning which improved with Tylenol No other complaints Denies any chest pain, dyspnea, dizziness, nausea, abdominal pain Waiting for placement Review of Systems Review of Systems: All systems reviewed & are unremarkable except as noted in Subjective Physical Exam Physical Exam: Physical Exam: Vitals signs as noted above General Appearance:Moderately built and nourished, no apparent distress, Elderly Head: normocephalic, Atraumatic Eyes: normal inspection, EOMI Neck: supple, Trachea midline Respiratory/Chest: Normal breath sounds, CTA, No accessory muscle use Cardiovascular: S1, S2, No murmur Abdomen/GI:Soft, Non tender, Bowel sounds present Extremities/Musculoskeletal:normal inspection, Trace edema Neurologic/Psych:AAOX1, grossly no focal neurological deficits, +Memory issues Skin: normal color, warm Results & Data Results & Data ([facility]) Vital Signs (Past 12 Hours) Vital Signs Temp Pulse Resp BP BP Pulse Ox O2 Del Method 07/03/22 15:25 36.4 C L 61 18 142/84 H 95 Room Air 07/03/22 10:29 143/86 H 07/03/22 07:39 36.4 C L 66 18 163/110 H 96 Room Air
[2022-07-03] MEDS: traZODone HCL 50 MG TAB PO SCH (19:43)
[2022-07-03] MEDS: amLODIPine BESYLATE 5 MG TAB PO SCH (19:44)
[2022-07-04] MEDS: PANTOprazole 40 MG TAB PO SCH (05:46)
[2022-07-04] MEDS: LIDOCAINE 5% 1 PATCH TD SCH (07:54)
[2022-07-04] MEDS: AMIODARONE 200 MG TAB PO SCH (07:55)
[2022-07-04] MEDS: MAGNESIUM OXIDE 400 MG TAB PO SCH (07:55)
[2022-07-04] MEDS: ISOSORBIDE MONO EXTENDED REL 30 MG TABCR PO SCH (07:55)
[2022-07-04] MEDS: DULoxetine HCL 60 MG CAP PO SCH (07:55)
[2022-07-04] MEDS: DOCUSATE SODIUM 100 MG CAP PO SCH (07:55)
[2022-07-04] MEDS: METOPROLOL SUCC 25MG EXT REL TAB PO SCH (07:55)
[2022-07-04] MEDS: hydrALAZINE 10 MG TAB PO PRN (07:56)
[2022-07-04] MEDS: ASPIRIN 81 MG ECTAB PO SCH (07:56)
[2022-07-04] MEDS: ATORVASTATIN 40 MG TAB PO SCH (07:56)
[2022-07-04] MEDS: predniSONE 5 MG TAB PO SCH (07:57)
[2022-07-04] MEDS: levETIRAcetam 500 MG TAB PO SCH ×2 (07:57→19:45)
[2022-07-04 08:15] LABS: INR 2.2 (0.9-1.1); Prothrombin Time 22.4 Seconds (9.0-12.0)
[2022-07-04 08:35] LABS: Calcium 9.5 mg/dl (8.5-10.1)
[2022-07-04 08:41] LABS: BUN Creatinine Ratio 31.3 (10-20); Creatinine Clr Calc Pharmacy 32.2 ml/min; Est GFR (African American) 44.1 ml/min; Est GFR (Non-African American) 38.1 ml/min
[2022-07-04] MEDS: ACETAMINOPHEN 500 MG TAB PO PRN ×2 (12:15→18:58)
--- NOTE | 2022-07-04 15:38 | Hospitalist Progress Note ---
Date of Service July 04, 2022 Assessment & Plan (1) Weakness: Plan: Patient is an 87-year-old female with history of generalized weakness, ongoing memory issues. Generalized weakness Ongoing memory issues ? Undiagnosed dementia ? Meds contributing Urine culture not suggestive of UTI CT head:No acute intracranial hemorrhage, no evidence of acute territorial infarction or other acute intracranial disease process. Normal TSH, vitamin B12 May need neurology evaluation as outpatient Continue PT/OT Fall precautions Avoid narcotics as able Waiting for placement Recent cat scratch Completed p.o. antibiotic course as outpatient Blood cultures: No growth to date No indication for antibiotics currently Mild hematuria Mild proteinuria H/O Obstructive uropathy secondary to recent renal calculus Hematuria, proteinuria likely secondary to elderly, renal stone --CT ABD from 06/20/21:Mild left-sided hydroureteronephrosis is likely secondary to a recently passed 5 mm calculus within the dependent urinary bladder. Nonobstructing bilateral nephrolithiasis. No bowel obstruction or bowel wall thickening. Moderate hiatal hernia. Single focus of air within the urinary bladder lumen may be secondary to instrumentation versus gas forming organism. Correlate with urinalysis. -- Urine culture negative for UTI -Renal ultrasound:Resolution of the previously described left-sided hydronephrosis. No renal calculi are identified by ultrasound. Decompressed urinary bladder. Appreciate nephrology input -Needs UA rechecked in 1 week as outpatient Hypomagnesemia Chronic Replete electrolytes as needed Monitor (2) Paroxysmal atrial fibrillation: Plan: Continue amiodarone, metoprolol On Coumadin for anticoagulation Monitor INR: 3.4>4.8>4.2>2.2 Denies any bleeding issues Resume Coumadin at lower dose today (3) Diastolic CHF: Plan: Previously on Lasix Patient stopped taking Lasix voluntarily Advised to take Lasix as needed if leg edema worsens Restarted lasix 20mg Q72H (4) CAD (coronary artery disease): Plan: Continue aspirin, statin, metoprolol, isosorbide (5) Dyslipidemia: Plan: On statin (6) HTN (hypertension): Plan: Added amlodipine for better blood pressure control Continue metoprolol Also on isosorbide (7) Anticoagulated: Plan: Management as above (8) DM type 2 (diabetes mellitus, type 2): Plan: -HbA1C:6.1 - Patient is not on any medications, and does not use diabetic diet, monitor glucose (9) CKD stage 3 due to type 1 diabetes mellitus: Plan: Monitor renal function Mild hypercalcemia Ionized calcium within normal limits Phosphorus normal PTH Normal Vitamin D levels normal Monitor calcium levels (10) GERD (gastroesophageal reflux disease): Plan: On PPI (11) Polymyalgia rheumatica: Plan: Stable On prednisone taper course DVT Px: Coumadin CODE STATUS: Full code Disposition Waiting for placement Admission and Anticipated Discharge Date Admission Date: June 28, 2022 Subjective Patient is seen and examined at bedside Generalized pain has improved per patient Denies any chest pain, dyspnea, dizziness, nausea, abdominal pain Waiting for placement Review of Systems Review of Systems: All systems reviewed & are unremarkable except as noted in Subjective Physical Exam Physical Exam: Physical Exam: Vitals signs as noted above General Appearance:Moderately built and nourished, no apparent distress, Elderly Head: normocephalic, Atraumatic Eyes: normal inspection, EOMI Neck: supple, Trachea midline Respiratory/Chest: Normal breath sounds, CTA, No accessory muscle use Cardiovascular: S1, S2, No murmur Abdomen/GI:Soft, Non tender, Bowel sounds present Extremities/Musculoskeletal:normal inspection, Trace edema Neurologic/Psych:AAOX1, grossly no focal neurological deficits, +Memory issues Skin: normal color, warm Results & Data Results & Data ([facility]) Vital Signs (Past 12 Hours) Vital Signs Temp Pulse Resp BP Pulse Ox O2 Del Method 07/04/22 15:14 36.5 C 60 16 132/75 95 Room Air 07/04/22 07:25 36.4 C L 61 16 143/86 H 93 Room Air Laboratory Results [facility] 07/04/22 07:19 Sodium 138 Potassium 4.0 Chloride 105 Carbon Dioxide 28 BUN 40 H Creatinine 1.28 H Glucose 95 Calcium 9.5
[2022-07-04] MEDS: WARFARIN SOD 2 MG TAB PO SCH (15:49)
[2022-07-04] MEDS: amLODIPine BESYLATE 5 MG TAB PO SCH (19:45)
[2022-07-04] MEDS: traZODone HCL 50 MG TAB PO SCH (19:45)
[2022-07-05] MEDS: PANTOprazole 40 MG TAB PO SCH (05:42)
[2022-07-05] MEDS: levETIRAcetam 500 MG TAB PO SCH (08:16)
[2022-07-05] MEDS: ATORVASTATIN 40 MG TAB PO SCH (08:16)
[2022-07-05] MEDS: DULoxetine HCL 60 MG CAP PO SCH (08:16)
[2022-07-05] MEDS: AMIODARONE 200 MG TAB PO SCH (08:17)
[2022-07-05] MEDS: hydrALAZINE 10 MG TAB PO PRN (08:17)
[2022-07-05] MEDS: METOPROLOL SUCC 25MG EXT REL TAB PO SCH (08:18)
[2022-07-05] MEDS: ISOSORBIDE MONO EXTENDED REL 30 MG TABCR PO SCH (08:18)
[2022-07-05] MEDS: MAGNESIUM OXIDE 400 MG TAB PO SCH (08:18)
[2022-07-05] MEDS: DOCUSATE SODIUM 100 MG CAP PO SCH (08:19)
[2022-07-05] MEDS: LIDOCAINE 5% 1 PATCH TD SCH (08:19)
[2022-07-05 09:14] LABS: INR 1.5 (0.9-1.1); Prothrombin Time 16.1 Seconds (9.0-12.0)
[2022-07-05] MEDS: ALUMINUM/MAGNESIUM/SIMETH (MAALOX MAX) 30 ML UDC PO PRN (10:45)
[2022-07-05] MEDS: ACETAMINOPHEN 500 MG TAB PO PRN (10:46)
--- NOTE | 2022-07-05 11:11 | Hospitalist Progress Note ---
Date of Service July 05, 2022 Assessment & Plan (1) Weakness: Plan: Patient is an 87-year-old female with history of generalized weakness, ongoing memory issues. Generalized weakness Ongoing memory issues ? Undiagnosed dementia ? Meds contributing Urine culture not suggestive of UTI CT head:No acute intracranial hemorrhage, no evidence of acute territorial infarction or other acute intracranial disease process. Normal TSH, vitamin B12 May need neurology evaluation as outpatient Continue PT/OT Fall precautions Avoid narcotics as able Likely discharge to Rehab today Recent cat scratch Completed p.o. antibiotic course as outpatient Blood cultures: No growth to date No indication for antibiotics currently Mild hematuria Mild proteinuria H/O Obstructive uropathy secondary to recent renal calculus Hematuria, proteinuria likely secondary to elderly, renal stone --CT ABD from 06/20/21:Mild left-sided hydroureteronephrosis is likely secondary to a recently passed 5 mm calculus within the dependent urinary bladder. Nonobstructing bilateral nephrolithiasis. No bowel obstruction or bowel wall thickening. Moderate hiatal hernia. Single focus of air within the urinary bladder lumen may be secondary to instrumentation versus gas forming organism. Correlate with urinalysis. -- Urine culture negative for UTI -Renal ultrasound:Resolution of the previously described left-sided hydronephros is. No renal calculi are identified by ultrasound. Decompressed urinary bladder. Appreciate nephrology input -Needs UA rechecked in 1 week as outpatient Hypomagnesemia Chronic Replete electrolytes as needed Monitor (2) Paroxysmal atrial fibrillation: Plan: Continue amiodarone, metoprolol On Coumadin for anticoagulation Monitor INR: 3.4>4.8>4.2>2.2>1.5 Denies any bleeding issues Adjusted Coumadin dose (3) Diastolic CHF: Plan: Previously on Lasix Patient stopped taking Lasix voluntarily Advised to take Lasix as needed if leg edema worsens Restarted lasix 20mg Q72H (4) CAD (coronary artery disease): Plan: Continue aspirin, statin, metoprolol, isosorbide (5) Dyslipidemia: Plan: On statin (6) HTN (hypertension): Plan: Added amlodipine for better blood pressure control Continue metoprolol Also on isosorbide (7) Anticoagulated: Plan: Management as above (8) DM type 2 (diabetes mellitus, type 2): Plan: -HbA1C:6.1 - Patient is not on any medications, and does not use diabetic diet, monitor glucose (9) CKD stage 3 due to type 1 diabetes mellitus: Plan: Monitor renal function Mild hypercalcemia Ionized calcium within normal limits Phosphorus normal PTH Normal Vitamin D levels normal Monitor calcium levels Resolved (10) GERD (gastroesophageal reflux disease): Plan: On PPI (11) Polymyalgia rheumatica: Plan: Stable Completed low dose prednisone taper course DVT Px: Coumadin CODE STATUS: Full code Disposition Rehab once accepted Admission and Anticipated Discharge Date Admission Date: June 28, 2022 Subjective Patient is seen and examined at bedside Feels sleepy No other complaints Denies any chest pain, dyspnea, dizziness, nausea, abdominal pain Plan to discharge to Rehab once accepted Review of Systems Review of Systems: All systems reviewed & are unremarkable except as noted in Subjective Physical Exam Physical Exam: Physical Exam: Vitals signs as noted above General Appearance:Moderately built and nourished, no apparent distress, Elderly Head: normocephalic, Atraumatic Eyes: normal inspection, EOMI Neck: supple, Trachea midline Respiratory/Chest: Normal breath sounds, CTA, No accessory muscle use Cardiovascular: S1, S2, No murmur Abdomen/GI:Soft, Non tender, Bowel sounds present Extremities/Musculoskeletal:normal inspection, Trace edema Neurologic/Psych:AAOX1, grossly no focal neurological deficits, +Memory issues Skin: normal color, warm Results & Data Results & Data ([facility]) Vital Signs (Past 12 Hours) Vital Signs Temp Pulse Resp BP Pulse Ox O2 Del Method 07/05/22 07:15 36.4 C L 68 18 154/85 H 97 Room Air
--- NOTE | 2022-07-05 15:03 | Discharge Summary ---
Date of Service July 05, 2022 Admission HPI Per Admitting Provider This is a 87-year-old female with PMHx of Atrial fib on coumadin, chronic diastolic CHF, HTN, HLD, DM type II, cardiac pacemaker, hx of TIA in 2020, polymyalgia rheumatica, asthma, osteoporosis, GERD, urinary incontinence, who presents to the hospital with worsening weakness. Pt lives at home by herself and her daughter, Saray, has urged her to come to the ER. Pt reports feeling like she is "washed up and falling apart". She says things at home have been worsening over the past few months. About 1 week ago pt was scratched by a cat, and has a right hand blister and her skin was bright red with infection streaking up her arm. She went to [facility] and was given an IV antibiotic there and sent home with a course of antibiotics x 5 days (Augmentin 875 mg BID x 5d) - finished that this morning or last night. Pt denies fever, chills or sweats now and reports her arm does not hurt anymore. She admits to having headaches on a daily basis for the past 1-2 weeks, location is all over, and is taking tylenol which alleviates some of the pain. Her headache currently is better now s/p Tylenol in the ER, and rates it 5/10. Pt also reports that her memory is not great, feels forgetful. Generalized weakness has been worsening over the past few months as well. Denies any falls, uses a cane/walker and/or rollator for ambulation assistance. In the past she has participated with outpatient PT/OT and where the therapist comes to her house. The last time she had PT was a few months ago, and does not participate in it herself because a lot of the therapy moves hurt her, therefore she doesn't want to do them without motivation. She has chronic back, hip, knee pain which she takes Tylenol for. Admission Exam Per Admitting Provider Physical Exam Physical Exam: General: awake, alert, no apparent distress, obese with BMI of 32.6 Head: Normocephalic, atraumatic ENT: PERRL, EOMI, no pharyngeal exudate, mucous membranes moist Chest: Clear to auscultation, on room air, no adventitious breath sounds Cardiac: Ventricularly paced rhythm, no murmur, no JVD, normal peripheral pulses, good capillary refill Abdominal: NABS x 4 quadrants, soft, nondistended, nontender to palpation, no rebound or guarding Extremities: Normal inspection, +peripheral edema BLE at feet and ankles, non pitting, + chronic skin changes from coumadin, no erythema, calfs nontender to palpation Psych: Normal mood and affect Neuro: AAO x 3, strength intact bilaterally and rated 5/5, no motor deficits, speech is clear, no peripheral sensory deficits Principal Diagnosis Generalized weakness Polymyalgia rheumatica Hematuria, proteinuria Suspected dementia Discharge Data Allergies Allergy/AdvReac Type Severity Reaction Status Date / Time metoclopramide Allergy Intermediate neuro Verified 06/28/22 16:58 complications adhesive Allergy Unknown ALLERGY TO Verified 06/28/22 16:58 TAPE naproxen [From Naprosyn] AdvReac Intermediate CAN'T Verified 06/28/22 16:58 TOLERATE, DEPRESSED, EMOTIONAL doxycycline AdvReac Mild n/v Verified 06/28/22 16:58 Consultations 06/28/22 16:15 ED Decision to Admit Stat 06/29/22 09:33 Consult Nephrology Routine Procedures Performed Laboratory Results WBC 8.76 K/ul (4.8-10.8) 07/01/22 06:37 RBC 5.09 M/uL (3.93-5.22) 07/01/22 06:37 Hgb 14.8 g/dl (12.0-16.0) 07/01/22 06:37 Hct 44.0 % (34.1-44.9) 07/01/22 06:37 MCV 86.4 fL (80.0-100.0) 07/01/22 06:37 MCH 29.1 pg (25.0-34.0) 07/01/22 06:37 MCHC 33.6 g/dL (32.0-36.0) 07/01/22 06:37 RDW Std Deviation 44.3 fL (36.4-46.3) 07/01/22 06:37 RDW Coeff of Tab 14.1 % (11.5-14.5) 07/01/22 06:37 Plt Count 337 K/uL (130-400) 07/01/22 06:37 MPV 9.9 fL (9.4-12.3) 07/01/22 06:37 Immature Gran % (Auto) 0.4 % 06/28/22 13:43 Neut % (Auto) 55.4 % 06/28/22 13:43 Lymph % (Auto) 31.5 % 06/28/22 13:43 [place] % (Auto) 6.8 % 06/28/22 13:43 Eos % (Auto) 5.3 % 06/28/22 13:43 Baso % (Auto) 0.6 % 06/28/22 13:43 Neut # (Auto) 4.60 K/uL (1.4-6.5) 06/28/22 13:43 Lymph # (Auto) 2.61 K/uL (1.2-3.4) 06/28/22 13:43 [place] # (Auto) 0.56 K/uL (0.24-0.82) 06/28/22 13:43 Eos # (Auto) 0.44 K/uL (0-0.50) 06/28/22 13:43 Baso # (Auto) 0.05 K/uL (0-0.2) 06/28/22 13:43 Immature Gran # (Auto) 0.03 K/uL (0.00-0.02) H 06/28/22 13:43 PT 16.1 Seconds (9.0-12.0) H 07/05/22 08:11 INR 1.5 (0.9-1.1) H 07/05/22 08:11 Sodium 138 mmol/L (136-145) 07/04/22 07:19 Potassium 4.0 mmol/L (3.5-5.1) 07/04/22 07:19 Chloride 105 mmol/L (98-107) 07/04/22 07:19 Carbon Dioxide 28 mmol/L (21-32) 07/04/22 07:19 Anion Gap 5 (3-11) 07/04/22 07:19 BUN 40 mg/dl (6-23) H 07/04/22 07:19 Creatinine 1.28 mg/dl (0.6-1.2) H 07/04/22 07:19 Est Cr Clr Drug Dosing 32.2 ml/min 07/04/22 07:19 Est GFR ( Amer) 44.1 ml/min 07/04/22 07:19 Est GFR (Non-Af Amer) 38.1 ml/min 07/04/22 07:19 BUN/Creatinine Ratio 31.3 (10-20) H 07/04/22 07:19 Glucose 95 mg/dl (70-99(Fasting)) 07/04/22 07:19 POC Glucose 92 mg/dl (70-99) 07/04/22 08:07 Estimat Average Glucose 128 mg/dl 06/30/22 06:44 Hemoglobin A1c 6.1 % (4.5-5.6) H 06/30/22 06:44 Calcium 9.5 mg/dl (8.5-10.1) 07/04/22 07:19 Ionized Calcium 1.29 mmol/L (1.12-1.32) 06/29/22 08:36 Phosphorus 2.9 mg/dl (2.5-4.9) 06/29/22 11:19 Magnesium 1.8 mg/dl (1.7-2.4) 07/01/22 06:37 Total Bilirubin 0.6 mg/dl (0.2-1.0) 06/28/22 13:43 AST 21 U/L (13-39) 06/28/22 13:43 ALT 18 U/L (7-52) 06/28/22 13:43 Alkaline Phosphatase 123 U/L (34-104) H 06/28/22 13:43 Troponin I High Sens 9.9 pg/ml (0-14) 06/28/22 13:43 Total Protein 6.6 gm/dl (6.0-8.3) 06/28/22 13:43 Albumin 3.6 gm/dl (3.4-5.0) 06/28/22 13:43 Globulin 3.0 gm/dl (2.5-4.0) 06/28/22 13:43 Albumin/Globulin Ratio 1.2 (0.9-2) 06/28/22 13:43 Vitamin B12 732 pg/ml (180-914) 06/30/22 06:44 25-OH Vitamin D Total 58.6 ng/ml (30-100) 06/29/22 08:36 TSH 2.101 uIu/ml (0.300-4.500) 06/28/22 13:43 PTH Intact 77.7 pg/ml (12.0-88.0) 06/29/22 11:19 Urine Color Dark Yellow 06/28/22 16:23 Urine Appearance Cloudy (Clear) A 06/28/22 16: Urine pH 5.5 (4.5-7.5) 06/28/22 16:23 Ur Specific [place] 1.025 (1.000-1.030) 06/28/22 16:23 Urine Protein 1+ (Negative) H 06/28/22 16:23 Urine Glucose (UA) Negative (Negative) 06/28/22 16: Urine Ketones Negative (Negative) 06/28/22 16: Urine Blood 3+ (Negative) H 06/28/22 16: Urine Nitrite Negative (Negative) 06/28/22 16: Urine Bilirubin Negative (Negative) 06/28/22 16: Urine Urobilinogen Negative (Negative) 06/28/22 16:23 Ur Leukocyte Esterase Trace (Negative) H 06/28/22 16:23 Urine WBC (Auto) 10-30 /hpf (0-5) H 06/28/22 20:55 Urine RBC (Auto) >30 /hpf (0-4) H 06/28/22 20:55 U Hyaline Cast (Auto) 1-5 /lpf (0-5) 06/28/22 20:55 U Epithel Cells (Auto) >30 /lpf (0-5) H 06/28/22 20:55 Urine Bacteria (Auto) Negative (Negative) 06/28/22 20:55 Ur Random Creatinine 169.5 mg/dl 06/28/22 20:55 U Random Total Protein 49.5 mg/dl (0-11.9) H 06/28/22 20:55 Protein/Creatinin Ratio 0.3 (0-0.2) H 06/28/22 20:55 SARS-CoV-2, RNA, NAAT NEGATIVE (NEGATIVE) 06/28/22 14:15 Impressions Chest X-Ray 06/28/22 14:04 XR chest 1V portable CLINICAL HISTORY: weakness COMPARISON STUDY: Chest radiograph June 03, 2020. FINDINGS: Dual lead left subclavian pacer is in place. Lung volumes are normal. Lungs are clear. There is no pneumothorax or pleural effusion. Cardiac size is normal. Hiatal hernia is again noted. There is no evidence for pulmonary edema. Several old left-sided rib fractures are incidentally noted. IMPRESSION: No acute cardiopulmonary findings. ACT 112: Negative or not required by law. Electronically signed by: Hardik Fernandez M.D. 06/28/2022 2:57 PM Renal Ultrasound 06/29/22 11:51 US renal/blad retro comp HISTORY: 87 years-old Female kiney stone and f/u ecent Hydronephrosis follow-up study in a patient with nephrolithiasis and left hydronephrosis. COMPARISON: CT June 20, 2021 TECHNIQUE: Multiple real-time sonographic images of the kidneys and bladder were obtained assessing grayscale appearance and color flow FINDINGS: Limited exam secondary to patient body habitus. The right kidney measures 9.0 cm in length. The left kidney measures 9.5 cm in length. Resolution of the previously described left-sided hydronephrosis. No renal calculi are identified by ultrasound. Decompressed or bladder. Ureteral jets are not identified. IMPRESSION: 1. Resolution of the previously described left-sided hydronephrosis. 2. No renal calculi are identified by ultrasound. 3. Decompressed urinary bladder. ACT 112: Negative or not required by law. The above report was generated using voice recognition software. It may contain grammatical, syntax or spelling errors. Electronically signed by: Andrea Pierce M.D. 06/29/2022 8:[address] 06/29/22 18:01 CT head/brain wo con CLINICAL HISTORY: H/O CVA, worsening memory Technique: Contiguous axial CT images of the head were acquired from the base of the skull to the vertex without intravenous contrast administration. Images were viewed in brain, subdural and bone windows. Automated dose lowering techniques and/or adjustment according to patient size were utilized for this exam. Comparison: Comparison is made to CTA head 06/10/2020 Findings: Areas of decreased attenuation are present in the periventricular and subcortical white matter bilaterally consistent with small vessel ischemic disease. Generalized cerebral atrophy with commensurate enlargement of the ventricles, sulci, and cisterns is also present. There is no acute intracranial hemorrhage or evidence of acute territorial infarction. No shift of the midline structures, mass effect, or extra-axial abnormalities are shown. Atherosclerotic calcifications are present in the intracranial segments of the internal carotid arteries. Mucous retention cyst is seen in the right sphenoid sinus. The orbits appear normal. There are no acute fractures of the calvaria or scalp swelling. Impression: No acute intracranial hemorrhage, no evidence of acute territorial infarction or other acute intracranial disease process. ACT 112: Negative or not required by law. Electronically signed by: Niraj Chamorro M.D. 06/30/2022 1:16 PM Ordered Studies 06/29/22 11:51 US renal/blad retro comp Routine 06/29/22 18:01 CT head/brain wo con Routine Hospital Course (1) Weakness: Patient is an 87-year-old female with history of generalized weakness, ongoing memory issues. Generalized weakness Ongoing memory issues ? Undiagnosed dementia ? Meds contributing Urine culture not suggestive of UTI CT head:No acute intracranial hemorrhage, no evidence of acute territorial infarction or other acute intracranial disease process. Normal TSH, vitamin B12 May need neurology evaluation as outpatient Continue PT/OT Fall precautions Avoid narcotics as able Likely discharge to Rehab today Recent cat scratch Completed p.o. antibiotic course as outpatient Blood cultures: No growth to date No indication for antibiotics currently Mild hematuria Mild proteinuria H/O Obstructive uropathy secondary to recent renal calculus Hematuria, proteinuria likely secondary to elderly, renal stone --CT ABD from 06/20/21:Mild left-sided hydroureteronephrosis is likely secondary to a recently passed 5 mm calculus within the dependent urinary bladder. Nonobstructing bilateral nephrolithiasis. No bowel obstruction or bowel wall thickening. Moderate hiatal hernia. Single focus of air within the urinary bladder lumen may be secondary to instrumentation versus gas forming organism. Correlate with urinalysis. -- Urine culture negative for UTI -Renal ultrasound:Resolution of the previously described left-sided hydronephrosis. No renal calculi are identified by ultrasound. Decompressed uri nary bladder. Appreciate nephrology input -Needs UA rechecked in 1 week as outpatient Hypomagnesemia Chronic Replete electrolytes as needed Monitor (2) Paroxysmal atrial fibrillation: Continue amiodarone, metoprolol On Coumadin for anticoagulation Monitor INR: 3.4>4.8>4.2>2.2>1.5 Denies any bleeding issues Adjusted Coumadin dose (3) Diastolic CHF: Previously on Lasix Patient stopped taking Lasix voluntarily Advised to take Lasix as needed if leg edema worsens Restarted lasix 20mg Q72H (4) CAD (coronary artery disease): Continue aspirin, statin, metoprolol, isosorbide (5) Dyslipidemia: On statin (6) HTN (hypertension): Added amlodipine for better blood pressure control Continue metoprolol Also on isosorbide (7) Anticoagulated: Management as above (8) DM type 2 (diabetes mellitus, type 2): -HbA1C:6.1 - Patient is not on any medications, and does not use diabetic diet, monitor glucose (9) CKD stage 3 due to type 1 diabetes mellitus: Monitor renal function Mild hypercalcemia Ionized calcium within normal limits Phosphorus normal PTH Normal Vitamin D levels normal Monitor calcium levels Resolved (10) GERD (gastroesophageal reflux disease): On PPI (11) Polymyalgia rheumatica: Stable Completed low dose prednisone taper course DVT Px: Coumadin CODE STATUS: Full code Disposition Rehab once accepted Total Time Total Time Spent Total Time Spent (In Minutes): 45 minutes Discharge Plan Discharge Items Patient Disposition: Transfer Assisted Fac Reason For Visit: WEAKNESS Discharge Diagnosis: Generalized weakness Polymyalgia rheumatica Hematuria, proteinuria Suspected dementia Activity: Per Instructions section Exercise/Sports: Gradually increase as tolerated Non-emergency contact: Primary Care Provider Call non-emergency contact if: you have any medication questions, your symptoms worsen, your pain is concerning for you and you have a fever Follow-up/Referrals: Steve Hooker MD [Primary Care Provider] - Diet: Carb Consistent or DM2 and Heart Healthy Addtl Attending Provider Instructions: Follow-up with your primary care physician Dr. Hooker in 1 week Follow-up with Coumadin clinic for monitoring of PT/INR and adjusting Coumadin dose as needed Consider following with your grocery carrier for polymyalgia rheumatica as needed --- Repeat urinalysis in 1 week to monitor hematuria/proteinuria as recommended by your appeals reviewer veteran. If abnormal, follow-up with your primary care physician/appeals reviewer veteran for further recommendations --- Get blood test (PT/INR) in 2 days and follow-up with Coumadin clinic for adjustment of your Coumadin dose. Your PT/INR today (07/05/22) is 1.5 -- Medication changes 1) start taking amlodipine 5 mg daily for better control of blood pressure. 2) Take Lasix 20 mg 2 times a week as advised (Saturday, Saturday) Seek immediate medical attention if your symptoms reoccur or worsen Please take all medications as instructed on discharge list below. Please call if you have any questions or problems. You can reach a [facility] hospitalist on duty at [facility] 24 hours a day by calling [phone] Pending Studies at Discharge: No Stand-Alone Forms: My [facility] Skilled Items Patient informed of condition?: Yes DNR: No Discharge Level of Care: Skilled Communicable Disease: No Discharge Prognosis: Stable Lines: None Urinary Catheter: No Medications and DC Order Prescriptions: New amlodipine [Norvasc] 5 mg Tablet 5 mg PO HS Qty: 30 0RF furosemide 20 mg Tablet 20 mg PO Q72H Qty: 30 0RF Continued polyethylene glycol 3350 [Miralax] 17 gram Powder In Packet 17 g PO DAILY PRN (Reason: constipation) Qty: 30 0RF atorvastatin 40 mg tablet 40 mg PO QAM isosorbide mononitrate 30 mg tablet extended release 24 hr 30 mg PO QAM aspirin 81 mg Tablet,Delayed Release (Dr/Ec) 81 mg PO [id number] Rx Instructions: TAKE THIS MEDICATION EVERY SATURDAY,SATURDAY AND SATURDAY omeprazole 20 mg capsule,delayed release(DR/EC) 20 mg PO DAILYBB albuterol sulfate [Ventolin HFA] 90 mcg/actuation HFA aerosol inhaler 2 puff inhalation QID PRN (Reason: Shortness Of Breath) potassium chloride [Klor-Con M10] 10 mEq tablet,ER particles/crystals 10 meq PO QAM Rx Instructions: TAKE DAILY WITH FUROSEMIDE, TAKE AN ADDITIONAL TABLET WHEN TAKING ADDITIONAL FUROSEMIDE Probiotic 3 billion cell Capsule 3 mmu cells PO QAM diclofenac sodium 1 % gel 4 g TOPICAL QID PRN (Reason: Pain) Rx Instructions: APPLY DIRECTED TO RIGHT HIP magnesium oxide 400 mg magnesium Tablet 400 mg PO QAM amiodarone 200 mg tablet 100 mg PO QAM duloxetine 60 mg capsule,delayed release(DR/EC) 60 mg PO QAM docusate sodium [Doc-Q-Lace] 100 mg Capsule 200 mg PO DAILY trazodone 50 mg tablet 25 mg PO HS simethicone 80 mg Tablet,Chewable 80 mg PO Q8H PRN (Reason: Gastric Reflux) levetiracetam 500 mg tablet 500 mg PO BID acetaminophen [Tylenol Extra Strength] 500 mg Tablet 1,000 mg PO Q6H PRN (Reason: Pain) warfarin 4 mg Tablet See Rx Instructions .ROUTE .COMPLEX Rx Instructions: 4 mg orally; TAKES 6 MG ON MONDAYS ONLY, THEN 4 MG ALL OTHER DAYS. oxycodone-acetaminophen 10-325 mg Tablet 1 tab PO Q6H PRN (Reason: Pain) biotin 10,000 mcg Capsule 10,000 mcg PO DAILY metoprolol succinate 25 mg tablet extended release 24 hr 12.5 mg PO DAILY Centrum 18-400 mg-mcg Tablet 1 tab PO DAILY Discharge Orders: Discharge Order (Routine); Ordered 07/05/22 Ordered By: Italo Mooney/Other Patient Handouts: Managing Type 2 Diabetes, [facility] for Diabetes Admission Data Admit Date/Time: 06/28/22 17:35 Attending Provider: Italo Dennis Admit Provider: Aranza Peters Primary Care Provider: Steve Hooker Other Providers: Aranza Peters ; [facility] ; [place]
[2022-07-05] MEDS: WARFARIN SOD 4 MG TAB PO SCH (15:23)
== END 2022-07-05 16:40 | DRG 948 ==
LOC: ED 13:12 → SUATTDRO 17:35 → 3N 17:35

== ENCOUNTER 2022-09-21 13:25 | Inpatient (IN) ==
[2022-09-21] MEDS: MoRPHine SULFATE 2 MG/ML CARP IV PRN ×3 (14:00→16:15)
--- NOTE | 2022-09-21 14:07 | Emergency Department Note ---
Impression & Plan Closed fracture of left hip, Fall ED Provider Note CHIEF COMPLAINT: Left hip pain, fall HISTORY OF PRESENT ILLNESS: This 87-year-old female patient presents to the emergency department via ambulance for evaluation of left hip pain after fall. The patient was getting up from her recliner when she stumbled on a blanket that was on the floor. She fell, striking her left hip on the ground. At that time, she was unable to get up so EMS was summoned. The patient has a shortened and externally rotated left lower extremity with pain at the left hip which radiates toward the knee. No history of hip fracture or replacement. She denies any dizziness, lightheadedness, nausea, vomiting, chest pain. She does chronically take oxycodone, but is uncertain whether or not she took it today. The patient did not have breakfast or lunch yet today. The patient was unable to ambulate and is unable to move the left hip. The patient states she did not strike her head. REVIEW OF SYSTEMS: A 10 system review of systems was performed with positives and pertinent negatives listed in the history of present illness. All other systems were reviewed and are negative. ALLERGIES: Reglan, adhesive, naproxen, doxycycline PHYSICAL EXAM: VITALS: Vitals are noted on the nurse's note and reviewed by myself. Vital signs stable. GENERAL: This is an 87-year-old female, in no acute distress, nondiaphoretic, well-developed well-nourished. SKIN: The skin was without rashes, erythema, edema, or bruising. There is no tenting of the skin. Capillary refill less than 2 seconds. HEAD: Normocephalic atraumatic. EYES: Conjunctivae without injection, sclerae without icterus. NOSE: Patent, turbinates without inflammation or discharge. No sinus tenderness. MOUTH: Mucous membranes moist. Tonsils are not enlarged. Pharynx without erythema or exudate. Uvula midline. Airway patent. Tongue does not deviate. NECK: Supple without nuchal rigidity. No lymphadenopathy. Cervical spine is nontender. No JVD. HEART: Regular rate and rhythm without murmurs gallops or rubs. LUNGS: Clear to auscultation bilaterally without wheezes, rales or rhonchi. No retractions or accessory muscle use. ABDOMEN: Positive bowel sounds x 4. Soft, nontender, without masses or organomegaly. Kee sign negative. No guarding or rebound tenderness. MUSCULOSKELETAL: There is tenderness to palpation over the left hip. Limited range of motion of the left lower extremity at the hip due to pain. The left lower extremity is shortened and externally rotated. No muscle atrophy, erythema, or edema noted. Otherwise, full range of motion without joint tenderness in all extremities. Strength 5/5 throughout. NEURO: Patient was alert and oriented to person place and time. Normal sensation to light and sharp touch. Deep tendon reflexes 2+ throughout. No focal neurological deficits. EMERGENCY DEPARTMENT COURSE: The patient was seen and evaluated as above. Patient presents via ambulance for evaluation of left hip pain. She also notes later on throughout her stay some left lower leg pain below the knee. X-rays were performed and reviewed by myself and radiologist as noted. IV access obtained, labs drawn. Patient was medicated with IV morphine. X-rays were concerning for left hip fracture, per my interpretation. I did consult with the general manager in training. I spoke with Sabine Colvin PA-C with [facility] hospitalist who agreed to the admission. I did reach out to Dr. Burgess, [facility] orthopedic surgeon on-call. He did agree to consult on the patient. I discussed case with my attending physician. Labs reviewed and without leukocytosis, anemia, thrombocytopenia. Renal, hepati c function and electrolytes without significant abnormality. Urinalysis appears to be contaminated specimen. COVID-19 testing was negative. Please see hospitalist and orthopedics dictation regarding ongoing management care of this patient Differential diagnosis include fracture, subluxation, dislocation, contusion, ligamentous injury, neurovascular, infection, as well as other pathologies. I attest that I have personally reviewed the patient's current medication list. Patient was found to have normal blood pressure on screening and does not require follow-up. The chart was completed utilizing [employer] Speech voice recognition software. Grammatical errors, random word insertions, pronoun errors, and incomplete sentences are an occasional consequence of this system due to software limit ations, ambient noise, and hardware issues. Any formal questions or concerns about the content, text, or information contained within the body of this dictation should be directly addressed to the provider for clarification. Past Med/Surg History Medical History (Updated 09/21/22 @ 18:13 by Nuria Springer PA-C) CAD (coronary artery disease) "1996 - PTCA to RCA 2012 - cath that showed patent RCA and no further disease" Chronic back pain CKD stage 3 due to type 1 diabetes mellitus Diastolic CHF DM type 2 (diabetes mellitus, type 2) Dyslipidemia GERD (gastroesophageal reflux disease) History of nephrolithiasis Polymyalgia rheumatica Surgical History History of cystoscopy History of lithotripsy History of PTCA S/P appendectomy S/P cholecystectomy S/P hysterectomy Family History Aunt Breast cancer Mother Diabetes Coronary heart disease Father Silicosis Social History Smoking Status: Former smoker Tobacco Type: Cigarettes packs per day: 0.5; Smoking End Date: Quit in 1994; Second Hand Exposure: No; Hx Alcohol Use: Yes Alcohol type: other Alcohol Intake Frequency: Monthly or Less Hx Substance Use: No Preferred Language: Lao Communication Ability: Effective Visual Impairment: Partially Limited Regulatory Affairs Associate Required: No Beliefs That Will Affect Care: None marital status: / Current Living Situation: Alone Feels Safe at Home: Yes Assistive Devices: Cane and Walker Allergies Allergies Allergy/AdvReac Type Severity Reaction Status Date / Time metoclopramide Allergy Intermediate neuro Verified 06/28/22 16:58 complications adhesive Allergy Unknown ALLERGY TO Verified 06/28/22 16:58 TAPE naproxen [From Naprosyn] AdvReac Intermediate CAN'T Verified 06/28/22 16:58 TOLERATE, DEPRESSED, EMOTIONAL doxycycline AdvReac Mild n/v Verified 06/28/22 16:58 Home Meds Home Medications Medication Instructions Recorded Confirmed albuterol sulfate 90 mcg/actuation 2 puff inhalation QID PRN 08/20/19 09/21/22 aerosol inhaler (Ventolin HFA) Shortness Of Breath aspirin 81 mg tablet,delayed 81 mg PO 3XWK 08/20/19 09/21/22 release atorvastatin 40 mg tablet 40 mg PO QAM 08/20/19 09/21/22 diclofenac sodium 1 % topical gel 4 g topical QID 08/20/19 09/21/22 isosorbide mononitrate 30 mg 30 mg PO QAM 08/20/19 09/21/22 tablet,extended release 24 hr magnesium oxide 400 mg PO QAM 08/20/19 09/21/22 omeprazole 20 mg capsule,delayed 20 mg PO DAILYBB 08/20/19 09/21/22 release potassium chloride 10 mEq 10 meq PO UD 08/20/19 09/21/22 tablet,extended release(part/cryst) (Klor-Con M) amiodarone 200 mg tablet 100 mg PO QAM 06/03/20 09/21/22 acetaminophen 500 mg tablet 1,000 mg PO Q6H PRN Pain 06/20/21 09/21/22 (Tylenol Extra Strength) biotin 10,000 mcg capsule 10,000 mcg PO DAILY 06/20/21 09/21/22 levetiracetam 500 mg tablet 500 mg PO BID 06/20/21 09/21/22 metoprolol succinate 25 mg 12.5 mg PO DAILY 06/20/21 09/21/22 tablet,extended release 24 hr multivitamin-ferrous 1 tab PO DAILY 06/20/21 09/21/22 fumarate-folic acid 18 mg-400 mcg tablet (Centrum) oxycodone-acetaminophen 10 mg-325 1 tab PO Q6H PRN Severe Pain 06/20/21 09/21/22 mg tablet (Scale Score 7-10) trazodone 50 mg tablet 25 mg PO HS 06/20/21 09/21/22 warfarin 4 mg tablet 4 mg PO UD 06/20/21 09/21/22 docusate sodium 100 mg capsule 200 mg PO DAILY 06/28/22 09/21/22 duloxetine 60 mg capsule,delayed 60 mg PO QAM 06/28/22 09/21/22 release Previous Rx's Medication Instructions Recorded furosemide 20 mg tablet 20 mg PO Q72H #30 tabs 07/05/22 Results & Data (ED) Vital Signs Vital Signs - 24 hr 09/21/22 13:30 09/21/22 13:31 09/21/22 13:59 Temperature 36.3 C L Temperature Source Oral Pulse Rate 70 74 55 L Pulse Rhythm Regular Respiratory Rate 20 Respiratory Effort / Characteristics Non-Labored Respiratory Depth Normal Blood Pressure 148/94 H Blood Pressure Mean 112 Pulse Oximetry 94 95 Oxygen Delivery Method Room Air Room Air Sepsis Recent Fever Within 48 Hours No Sepsis New/Unexplained Change in Mental Status N/A Sepsis Action Taken by Nursing No Action Required Laboratory Data 09/21/22 14:03 09/21/22 14:03 Lab Results 09/21/22 09/21/22 09/21/22 Range/Units 13:54 14:03 14:03 WBC 8.10 (4.8-10.8) K/ul RBC 4.60 (4.20-5.40) M/uL Hgb 13.7 (12.0-16.0) g/dl Hct 40.4 (37.0-47.0) % MCV 87.8 (80.0-100.0) fL MCH 29.8 (25.0-34.0) pg MCHC 33.9 (32.0-36.0) g/dL RDW Std Deviation 48.5 H (36.4-46.3) fL RDW Coeff of Tab 15.1 H (11.5-14.5) % Plt Count 190 (130-400) K/uL MPV 11.2 (9.4-12.4) fL Immature Gran % (Auto) 0.4 % Neut % (Auto) 72.5 % Lymph % (Auto) 19.9 % Gilliam % (Auto) 4.9 % Eos % (Auto) 1.9 % Baso % (Auto) 0.4 % Neut # (Auto) 5.88 (1.40-6.50) K/uL Lymph # (Auto) 1.61 (1.2-3.4) K/uL Gilliam # (Auto) 0.40 (0.11-0.59) K/uL Eos # (Auto) 0.15 (0-0.50) K/uL Baso # (Auto) 0.03 (0-0.2) K/uL Immature Gran # (Auto) 0.03 (0.01-0.20) K/uL PT 26.6 H (9.0-12.0) Seconds INR 2.6 H (0.9-1.1) APTT 30.5 (21.0-31.0) Seconds PTT Ratio 1.1 Sodium (136-145) mmol/L Potassium (3.5-5.1) mmol/L Chloride (98-107) mmol/L Carbon Dioxide (21-32) mmol/L Anion Gap (3-11) BUN (6-23) mg/dl Creatinine (0.6-1.2) mg/dl Est Cr Clr Drug Dosing ml/min Est GFR ( Amer) ml/min Est GFR (Non-Af Amer) ml/min BUN/Creatinine Ratio (10-20) Glucose (70-99(Fasting)) mg/dl Calcium (8.6-10.3) mg/dl Total Bilirubin (0.2-1.0) mg/dl AST (13-39) U/L ALT (7-52) U/L Alkaline Phosphatase (34-104) U/L Total Protein (6.0-8.3) gm/dl Albumin (3.4-5.0) gm/dl Globulin (2.5-4.0) gm/dl Albumin/Globulin Ratio (0.9-2) Urine Color Yellow Urine Appearance Cloudy A (Clear) Urine pH 5.0 (4.5-7.5) Ur Specific [place] 1.013 (1.000-1.030) Urine Protein 1+ H (Negative) Urine Glucose (UA) Negative (Negative) Urine Ketones Negative (Negative) Urine Blood 2+ H (Negative) Urine Nitrite Negative (Negative) Urine Bilirubin Negative (Negative) Urine Urobilinogen Negative (Negative) Ur Leukocyte Esterase 2+ H (Negative) Urine WBC (Auto) >30 H (0-5) /hpf Urine RBC (Auto) 0-4 (0-4) /hpf U Hyaline Cast (Auto) 1-5 (0-5) /lpf U Epithel Cells (Auto) 5-10 H (0-5) /lpf Urine Bacteria (Auto) Negative (Negative) Urine Yeast Not Reportable SARS-CoV-2, RNA, NAAT (NEGATIVE) 09/21/22 09/21/22 Range/Units 14:03 15:00 WBC (4.8-10.8) K/ul RBC (4.20-5.40) M/uL Hgb (12.0-16.0) g/dl Hct (37.0-47.0) % MCV (80.0-100.0) fL MCH (25.0-34.0) pg MCHC (32.0-36.0) g/dL RDW Std Deviation (36.4-46.3) fL RDW Coeff of Tab (11.5-14.5) % Plt Count (130-400) K/uL MPV (9.4-12.4) fL Immature Gran % (Auto) % Neut % (Auto) % Lymph % (Auto) % Gilliam % (Auto) % Eos % (Auto) % Baso % (Auto) % Neut # (Auto) (1.40-6.50) K/uL Lymph # (Auto) (1.2-3.4) K/uL Gilliam # (Auto) (0.11-0.59) K/uL Eos # (Auto) (0-0.50) K/uL Baso # (Auto) (0-0.2) K/uL Immature Gran # (Auto) (0.01-0.20) K/uL PT (9.0-12.0) Seconds INR (0.9-1.1) APTT (21.0-31.0) Seconds PTT Ratio Sodium 138 (136-145) mmol/L Potassium 4.0 (3.5-5.1) mmol/L Chloride 107 (98-107) mmol/L Carbon Dioxide 23 (21-32) mmol/L Anion Gap 8 (3-11) BUN 26 H (6-23) mg/dl Creatinine 1.36 H (0.6-1.2) mg/dl Est Cr Clr Drug Dosing 32.0 ml/min Est GFR ( Amer) 41.0 ml/min Est GFR (Non-Af Amer) 35.4 ml/min BUN/Creatinine Ratio 19.1 (10-20) Glucose 119 H (70-99(Fasting)) mg/dl Calcium 9.5 (8.6-10.3) mg/dl Total Bilirubin 0.5 (0.2-1.0) mg/dl AST 17 (13-39) U/L ALT 8 (7-52) U/L Alkaline Phosphatase 77 (34-104) U/L Total Protein 5.9 L (6.0-8.3) gm/dl Albumin 3.7 (3.4-5.0) gm/dl Globulin 2.2 L (2.5-4.0) gm/dl Albumin/Globulin Ratio 1.7 (0.9-2) Urine Color Urine Appearance (Clear) Urine pH (4.5-7.5) Ur Specific [place] (1.000-1.030) Urine Protein (Negative) Urine Glucose (UA) (Negative) Urine Ketones (Negative) Urine Blood (Negative) Urine Nitrite (Negative) Urine Bilirubin (Negative) Urine Urobilinogen (Negative) Ur Leukocyte Esterase (Negative) Urine WBC (Auto) (0-5) /hpf Urine RBC (Auto) (0-4) /hpf U Hyaline Cast (Auto) (0-5) /lpf U Epithel Cells (Auto) (0-5) /lpf Urine Bacteria (Auto) (Negative) Urine Yeast SARS-CoV-2, RNA, NAAT NEGATIVE (NEGATIVE) Administered Medications Acetaminophen (Ofirmev) 1,000 mg in 100 mls @ 400 mls/hr IV Q8H HOLA Stop: 09/22/22 17:14 Last Admin: 09/21/22 17:31 Dose: 400 mls/hr Documented By: [id number] Discontinued Medications Morphine Sulfate (Morphine Sulfate 2 Mg/Ml Carp) 2 mg IV Q1H PRN PRN Reason: Moderate Pain (Rating 3,4,5,6) Stop: 10/05/22 13:37 Last Admin: 09/21/22 16:15 Dose: 2 mg Documented By: Admin: 09/21/22 15:27 Dose: 2 mg Documented By: Admin: 09/21/22 14:00 Dose: 2 mg Documented By: [facility] [place] Imaging Data Radiologist's Impression: Hip X-Ray 09/21/22 13:38 XR hip LT min 2V CLINICAL HISTORY: fall, short/ext rotated left leg, hip pain TECHNIQUE: 2 views of the left hip and single frontal view of the pelvis were obtained. Comparison: None available at the time of this dictation. FINDINGS: There is a comminuted intratrochanteric fracture of the left hip. Evaluation is limited by body habitus. Soft tissue swelling is seen. IMPRESSION: Comminuted fracture of the left hip is seen. ACT 112: Negative or not required by law. Electronically signed by: Niraj Chamorro M.D. 09/21/2022 2:50 PM Chest X-Ray 09/21/22 13:39 XR chest 1V portable CLINICAL HISTORY: fall TECHNIQUE: Single frontal radiograph of the chest was obtained. Comparison: Comparison is made to chest radiograph 06/28/2022 FINDINGS: Dual lead pacemaker is seen. The cardiomediastinal silhouette is normal. The lungs are clear. No evidence of pleural effusion or pneumothorax. IMPRESSION: No acute chest disease. ACT 112: Negative or not required by law. Electronically signed by: Niraj Chamorro M.D. 09/21/2022 2:48 PM Tibia/Fibula X-Ray 09/21/22 15:20 XR tibia fibula LT 2V CLINICAL HISTORY: proximal tib/fib pain, fall TECHNIQUE: 2 radiographic views of the left leg were obtained. Comparison: None available at the time of this dictation. FINDINGS: There is no evidence of an acute fracture. Old healed mid shaft fibular fracture Osteophyte formation and joint space narrowing is seen. Soft tissue swelling is seen in the anterior proximal portion of the leg. Vascular calcifications are also noted. IMPRESSION: Soft tissue swelling and degenerative changes without evidence of acute fracture. ACT 112: Negative or not required by law. Electronically signed by: Niraj Chamorro M.D. 09/21/2022 4:10 PM Discharge Plan Visit Data Chief Complaint: Hip Pain Stated Complaint: FALL, L HIP PAIN ED Provider: Cj Mazariegos ED Midlevel Provider: Nuria Springer Discharge Problem: Closed fracture of left hip, Fall Patient Disposition: Admitted As Inpatient Discharge Instructions Interventions: ED Discharge Assessment Last Done: 09/21/22 16:12
[2022-09-21 14:29] LABS: Basophils # (auto) 0.03 K/uL (0-0.2); Basophils % (auto) 0.4 %; Eosinophils # (auto) 0.15 K/uL (0-0.50); Eosinophils % (auto) 1.9 %; Hematocrit (blood only) 40.4 % (37.0-47.0); Hemoglobin 13.7 g/dl (12.0-16.0); Immature Granulocytes # (auto) 0.03 K/uL (0.01-0.20); Immature Granulocytes % (auto) 0.4 %; Lymphocytes # (auto) 1.61 K/uL (1.2-3.4); Lymphocytes % (auto) 19.9 %; Mean Corpuscular Hemoglobin 29.8 pg (25.0-34.0); Mean Corpuscular Hgb Conc 33.9 g/dL (32.0-36.0); Mean Corpuscular Volume 87.8 fL (80.0-100.0); Mean Platelet Volume 11.2 fL (9.4-12.4); Monocytes % (auto) 4.9 %; Neutrophils # (auto) 5.88 K/uL (1.40-6.50); Neutrophils % (auto) 72.5 %; Platelet Count 190 K/uL (130-400); RDW Coefficient of Variation 15.1 % (11.5-14.5); RDW Standard Deviation 48.5 fL (36.4-46.3)
[2022-09-21 14:36] LABS: Appearance Urine Cloudy (Clear); Bacteria Urine Automated Negative (Negative); Bilirubin Urine Negative (Negative); Blood Urine 2+ (Negative); Color Urine Yellow; Glucose Urine UA Negative (Negative); Ketones Urine Negative (Negative); Leukocyte Esterase Urine 2+ (Negative); Nitrite Urine Negative (Negative); Protein Urine 1+ (Negative); Specific Gravity Urine 1.013 (1.000-1.030); Urobilinogen Urine Negative (Negative); WBC Urine Automated >30 /hpf (0-5)
[2022-09-21 14:44] LABS: Albumin Globulin Ratio 1.7 (0.9-2); Albumin Level 3.7 gm/dl (3.4-5.0); BUN Creatinine Ratio 19.1 (10-20); Bilirubin,Total 0.5 mg/dl (0.2-1.0); Calcium 9.5 mg/dl (8.6-10.3); Est GFR (Non-African American) 35.4 ml/min; Globulin 2.2 gm/dl (2.5-4.0); Total Protein 5.9 gm/dl (6.0-8.3)
--- NOTE | 2022-09-21 14:49 | XRay Report ---
XR chest 1V portable CLINICAL HISTORY: fall TECHNIQUE: Single frontal radiograph of the chest was obtained. Comparison: Comparison is made to chest radiograph 06/28/2022 FINDINGS: Dual lead pacemaker is seen. The cardiomediastinal silhouette is normal. The lungs are clear. No evid ence of pleural effusion or pneumothorax. IMPRESSION: No acute chest disease. ACT 112: Negative or not required by law. Electronically signed by: Niraj Chamorro M.D. 09/21/2022 2:48 PM
--- NOTE | 2022-09-21 14:52 | XRay Report ---
XR hip LT min 2V CLINICAL HISTORY: fall, short/ext rotated left leg, hip pain TECHNIQUE: 2 views of the left hip and single frontal view of the pelvis were obtained. Comparison: None available at the time of this dictation. FINDINGS: There is a comminuted intratrochanteric fracture of the left hip. Evaluation is limited by body habit us. Soft tissue swelling is seen. IMPRESSION: Comminuted fracture of the left hip is seen. ACT 112: Negative or not required by law. Electronically signed by: Niraj Chamorro M.D. 09/21/2022 2:50 PM
[2022-09-21 14:54] LABS: INR 2.6 (0.9-1.1); Partial Thromboplastin Ratio 1.1; Partial Thromboplastin Time 30.5 Seconds (21.0-31.0); Prothrombin Time 26.6 Seconds (9.0-12.0)
[2022-09-21 14:58] LABS: RBC Urine Automated 0-4 /hpf (0-4)
--- NOTE | 2022-09-21 15:41 | History & Physical Report ---
Date of Service September 21, 2022 Assessment & Plan (1) Fall: (2) Closed fracture of left hip: Plan: Patient is 87 y/o F with PMH PAF s/p cardioversion in 2019 anticoagulated on Coumadin, CAD s/p balloon angioplasty RCA in 1996, chronic diastolic heart failure, tachybrady syndrome s/p pacemaker, HTN, dyslipidemia, DM II, CKD III, CVA, seizure, PMR, GERD presented to ER with c/o tripping on blanket today causing fall and left hip pain today. CT head: No acute intracranial hemorrhage or skull fractures. Scalp swelling is seen in the left frontal soft tissues. CT C-spine: No acute fracture or subluxation CXR: No acute infiltrate Hip x-ray:Comminuted fracture of the left hip Left tibia/fibular x-ray: Soft tissue swelling and degenerative changes without evidence of acute fracture Mechanical fall causing left hip fracture Scheduled Tylenol for the first 24 hours, oxycodone, morphine as needed pain Bedrest N.p.o. midnight Ortho consult Cardiology consult for preop evaluation CBC, BMP, INR in a.m. (3) Abnormal finding on urinalysis: Plan: UA: 2+ leuk esterase,>30 WBC, 5-10 epithelial. No urinary symptoms reported Urine culture pending Rocephin pending culture results (4) Paroxysmal atrial fibrillation: Plan: S/p cardioversion 2019. Anticoagulated on Coumadin INR: 2.6 Hold Coumadin. Pending Ortho evaluation and consideration for possible surgery may need to allow INR to trend down vs giving vitamin K Continue amiodarone, metoprolol succinate (5) Chronic diastolic heart failure: Plan: Appears euvolemic Hold Lasix (6) CAD (coronary artery disease): Plan: S/p balloon angioplasty to RCA in 1996. Cardiac cath 2011 no progression coronary artery disease EKG: Paced rhythm Continue aspirin, atorvastatin, isosorbide, and metoprolol succinate (7) DM type 2 (diabetes mellitus, type 2): Plan: A1c: 6.1 on 06/30/2022 Not on medications at home NovoLog sliding scale per protocol (8) Tachy-amy syndrome: Plan: S/p pacemaker in 2019 Paced rhythm on EKG (9) HTN (hypertension): Plan: Continue metoprolol succinate (10) CKD (chronic kidney disease), stage III: Plan: Cr: 1.36. Baseline~1.3 Monitor renal functions, avoid nephrotoxic agents when possible (11) CVA (cerebral vascular accident): Plan: Continue aspirin, statin Coumadin on hold secondary to possible surgical procedure (12) Seizure-like activity: Plan: History of seizure-like activity Continue Keppra DVT Prophylaxis SCDs Full Code as per discussion with pt Follows with Dr Hooker for routine care Pt was seen and care coordinated with Dr Lemon. See addendum I spent a total of 78 minutes reviewing notes, outpatient records, labs, medication, coordinating, documenting and providing care for this patient excluding time spent in the performance of separately billed services. History of Present Illness Chief Complaint: Fall, left hip pain Primary Care Provider: [facility] Patient is 87 y/o F with PMH PAF s/p cardioversion in 2019 anticoagulated on Coumadin, CAD s/p balloon angioplasty RCA in 1996, chronic diastolic heart failure, tachybrady syndrome s/p pacemaker, HTN, dyslipidemia, DM II, CKD III, CVA, seizure, PMR, GERD presented to ER with c/o fall and left hip pain today. Patient states tripped over blanket when getting up out of chair and fell onto left side/left buttock. Had immediate pain to left hip. Patient unsure if hit her head. She is unsure if had syncope, LOC. She denies dizziness, chest pain, shortness of breath. Patient reports her son was in house and heard patient fall and was able to get to patient fairly quickly. Patient unable to stand, she was transported to ER via EMS. Uses cane and walker at home. Reports last fall over 1 year ago. Last BM 2 days ago. Patient with limited activity at baseline. Reports chronic SOB when walking around the house. Denies fever/chills, diaphoresis, N/V/D/C, CAI, dizziness, vision changes, neck pain, CP, SOB, palpitations, cough, rhinorrhea, abdominal pain, paresthesias, extremity edema, rashes, urinary symptoms. In ER found to have left hip fracture. Allergies Allergy/AdvReac Type Severity Reaction Status Date / Time metoclopramide Allergy Intermediate neuro Verified 06/28/22 16:58 complications adhesive Allergy Unknown ALLERGY TO Verified 06/28/22 16:58 TAPE naproxen [From Naprosyn] AdvReac Intermediate CAN'T Verified 06/28/22 16:58 TOLERATE, DEPRESSED, EMOTIONAL doxycycline AdvReac Mild n/v Verified 06/28/22 16:58 Home Medications Medication Instructions Recorded Confirmed Type albuterol sulfate 90 mcg/actuation 2 puff inhalation QID PRN 08/20/19 09/21/22 History aerosol inhaler (Ventolin HFA) Shortness Of Breath aspirin 81 mg tablet,delayed 81 mg PO [id number] 08/20/19 09/21/22 History release atorvastatin 40 mg tablet 40 mg PO QAM 08/20/19 09/21/22 History diclofenac sodium 1 % topical gel 4 g topical QID 08/20/19 09/21/22 History isosorbide mononitrate 30 mg 30 mg PO QAM 08/20/19 09/21/22 History tablet,extended release 24 hr magnesium oxide 400 mg PO QAM 08/20/19 09/21/22 History omeprazole 20 mg capsule,delayed 20 mg PO DAILYBB 08/20/19 09/21/22 History release potassium chloride 10 mEq 10 meq PO UD 08/20/19 09/21/22 History tablet,extended release(part/cryst) (Klor-Con M) amiodarone 200 mg tablet 100 mg PO QAM 06/03/20 09/21/22 History acetaminophen 500 mg tablet 1,000 mg PO Q6H PRN Pain 06/20/21 09/21/22 History (Tylenol Extra Strength) biotin 10,000 mcg capsule 10,000 mcg PO DAILY 06/20/21 09/21/22 History levetiracetam 500 mg tablet 500 mg PO BID 06/20/21 09/21/22 History metoprolol succinate 25 mg 12.5 mg PO DAILY 06/20/21 09/21/22 History tablet,extended release 24 hr multivitamin-ferrous 1 tab PO DAILY 06/20/21 09/21/22 History fumarate-folic acid 18 mg-400 mcg tablet (Centrum) oxycodone-acetaminophen 10 mg-325 1 tab PO Q6H PRN Severe Pain 06/20/21 09/21/22 History mg tablet (Scale Score 7-10) trazodone 50 mg tablet 25 mg PO HS 06/20/21 09/21/22 History warfarin 4 mg tablet 4 mg PO UD 06/20/21 09/21/22 History docusate sodium 100 mg capsule 200 mg PO DAILY 06/28/22 09/21/22 History duloxetine 60 mg capsule,delayed 60 mg PO QAM 06/28/22 09/21/22 History release furosemide 20 mg tablet 20 mg PO Q72H #30 tabs 07/05/22 09/21/22 Rx Past Med/Surg History Medical History (Updated 09/21/22 @ 20:01 by Patsy Colvin PA-C) CAD (coronary artery disease) "1996 - PTCA to RCA 2011 - cath that showed patent RCA and no further disease" Chronic back pain Chronic diastolic heart failure CKD stage 3 due to type 1 diabetes mellitus Diastolic CHF DM type 2 (diabetes mellitus, type 2) Dyslipidemia GERD (gastroesophageal reflux disease) History of nephrolithiasis Polymyalgia rheumatica Surgical History History of cystoscopy History of lithotripsy History of PTCA S/P appendectomy S/P cholecystectomy S/P hysterectomy Family History Aunt Breast cancer Mother Diabetes Coronary heart disease Father Silicosis Social History Smoking Status: Former smoker Tobacco Type: Cigarettes packs per day: 0.5; Smoking End Date: Quit in 1994; Second Hand Exposure: No; Hx Alcohol Use: No Hx Substance Use: No Preferred Language: Albanian Communication Ability: Effective Visual Impairment: Partially Limited Bag Turner Required: No Beliefs That Will Affect Care: None marital status: / Current Living Situation: Alone Current Living Situation Comment: daughter/ son has been staying with her for past month. Feels Safe at Home: Yes Safety Concerns: Feels Safe At This Time Assistive Devices: Cane, Denture - Upper, Denture - Lower, Glasses and Walker Review of Systems Review of Systems: All systems reviewed & are unremarkable except as noted in HPI & below Physical Exam Physical Exam: PE per Dr Lemon Results & Data Results & Data Vital Signs (Past 12 Hours) Vital Signs Temp Pulse Resp BP Pulse Ox O2 Del Method 09/21/22 13:59 55 L 95 Room Air 09/21/22 13:31 74 09/21/22 13:30 36.3 C L 70 20 148/94 H 94 Room Air Laboratory Results Short CBC 09/21/22 Range/Units 14:03 WBC 8.10 (4.8-10.8) K/ul Hgb 13.7 (12.0-16.0) g/dl Hct 40.4 (37.0-47.0) % Plt Count 190 (130-400) K/uL BMP 09/21/22 14:03 Sodium 138 Potassium 4.0 Chloride 107 Carbon Dioxide 23 BUN 26 H Creatinine 1.36 H Glucose 119 H Calcium 9.5 Liver Function 09/21/22 Range/Units 14:03 Total Bilirubin 0.5 (0.2-1.0) mg/dl AST 17 (13-39) U/L ALT 8 (7-52) U/L Alkaline Phosphatase 77 (34-104) U/L Albumin 3.7 (3.4-5.0) gm/dl Urine 09/21/22 Range/Units 13:54 Urine Color Yellow Urine Appearance Cloudy A (Clear) Urine pH 5.0 (4.5-7.5) Ur Specific Doran 1.013 (1.000-1.030) Urine Protein 1+ H (Negative) Urine Glucose (UA) Negative (Negative) Diagnostic Findings Hip X-Ray 09/21/22 13:38 XR hip LT min 2V CLINICAL HISTORY: fall, short/ext rotated left leg, hip pain TECHNIQUE: 2 views of the left hip and single frontal view of the pelvis were obtained. Comparison: None available at the time of this dictation. FINDINGS: There is a comminuted intratrochanteric fracture of the left hip. Evaluation is limited by body habitus. Soft tissue swelling is seen. IMPRESSION: Comminuted fracture of the left hip is seen. ACT 112: Negative or not required by law. Electronically signed by: Niraj Chamorro M.D. 09/21/2022 2:50 PM Chest X-Ray 09/21/22 13:39 XR chest 1V portable CLINICAL HISTORY: fall TECHNIQUE: Single frontal radiograph of the chest was obtained. Comparison: Comparison is made to chest radiograph 06/28/2022 FINDINGS: Dual lead pacemaker is seen. The cardiomediastinal silhouette is normal. The lungs are clear. No evidence of pleural effusion or pneumothorax. IMPRESSION: No acute chest disease. ACT 112: Negative or not required by law. Electronically signed by: Niraj Chamorro M.D. 09/21/2022 2:48 PM Tibia/Fibula X-Ray 09/21/22 15:20 XR tibia fibula LT 2V CLINICAL HISTORY: proximal tib/fib pain, fall TECHNIQUE: 2 radiographic views of the left leg were obtained. Comparison: None available at the time of this dictation. FINDINGS: There is no evidence of an acute fracture. Old healed mid shaft fibular fracture Osteophyte formation and joint space narrowing is seen. Soft tissue swelling is seen in the anterior proximal portion of the leg. Vascular calcifications are also noted. IMPRESSION: Soft tissue swelling and degenerative changes without evidence of acute fracture. ACT 112: Negative or not required by law. Electronically signed by: Niraj Chamorro M.D. 09/21/2022 4:[address] 09/21/22 15:54 CT OF THE CERVICAL SPINE WITHOUT CONTRAST CLINICAL HISTORY: Fall. Evaluate for fracture. COMPARISON STUDY: Cervical spine CT October 25, 2010 and CTA of the neck June 10, 2020. TECHNIQUE: Helical axial images of the cervical spine were obtained without IV contrast. Sagittal and coronal reconstructions were viewed. Automated exposure control was utilized for the study. A dose lowering technique was utilized adhering to the principles of ALARA. FINDINGS: Alignment of the cervical spine is anatomic. Vertebral body heights are maintained. No acute cervical spine fracture or subluxation is present. There is no prevertebral edema. Facet joints are intact. Moderate multilevel degenerative disc disease and facet arthrosis is present. Left subclavian pacer is incidentally noted. IMPRESSION: No acute cervical spine fracture or subluxation. ACT 112: Negative or not required by law. Electronically signed by: Hardik Fernandez M.D. 09/21/2022 4:[address] 09/21/22 15:54 CT head/brain wo con CLINICAL HISTORY: fall Technique: Contiguous axial CT images of the head were acquired from the base of the skull to the vertex without intravenous contrast administration. Images were viewed in brain, subdural and bone windows. Automated dose lowering techniques and/or adjustment according to patient size were utilized for this exam. Comparison: Comparison is made to CT head 06/30/2022 Findings: Areas of decreased attenuation are present in the periventricular and subcortical white matter bilaterally consistent with small vessel ischemic disease. Generalized cerebral atrophy with commensurate enlargement of the ventricles, sulci, and cisterns is also present. There is no acute intracranial hemorrhage or evidence of acute territorial infarction. No shift of the midline structures, mass effect, or extra-axial abnormalities are shown. Atherosclerotic calcifications are present in the intracranial segments of the internal carotid arteries. Imaged portions of the paranasal sinuses and mastoid air cells are clear. The orbits appear normal. There are no acute fractures of the calvaria. Scalp swelling is seen in the left frontal soft tissues. Impression: No acute intracranial hemorrhage or skull fractures. Scalp swelling is seen in the left frontal soft tissues. ACT 112: Negative or not required by law. Electronically signed by: Niraj Chamorro M.D. 09/21/2022 4:35 PM ECG Rate (beats per minute): 70 Findings: + paced rhythm Supervising Physician Co-Signing Physician Notes History and physical exam performed by me notable for 32-fadq-wyg-year-old woman who presents with fall and left hip pain. Reported mechanical fall after tripping on her blanket falling on her left side. Denies head trauma or loss of consciousness. Reports chronic exertional dyspnea On exam, General: Obese elderly woman in no distress Eyes: PERRL, conjunctivae normal, not pale, anicteric sclerae, EOM intact bilaterally ENMT: External ear and nose normal, oropharynx normal Respiratory: Normal respiratory effort, no respiratory distress, lungs clear to auscultation, no crackles and no wheezes Cardiovascular: RRR S1 S2 Gastrointestinal (Abdomen): Abdomen is not distended, soft, non-tender to palpation, no guarding, no palpable hepatosplenomegaly, normal bowel sounds Musculoskeletal: Tenderness over left hip. Trace pedal edema Genitourinary: [place] in situ Neurologic: Alert and oriented x 3, No focal weakness, sensation grossly intact Psychiatric: Euthymic affect Labs notable for INR of 2.6 [on warfarin], creatinine of 1.36 [baseline] UA had 2+ leukocyte esterase, more than 30 WBC X-ray showed comminuted left hip fracture. Fall Fall appears mechanical based on history. Left hip fracture. We will hold patient's Coumadin for now in view of possible surgical procedure. Ortho consult Get CT head/Neck Will need cardiology clearance for surgery based on patient's history Will get PT/OT eval later Will give empirical ceftriaxone for possible UTI for now based on UA. Follow up urine culture Other plans as detailed by Patsy Colvin PA-C
--- NOTE | 2022-09-21 16:11 | XRay Report ---
XR tibia fibula LT 2V CLINICAL HISTORY: proximal tib/fib pain, fall TECHNIQUE: 2 radiographic views of the left leg were obtained. Comparison: None available at the time of this dictation. FINDINGS: There is no evidence of an acute fracture. Old healed mid shaft fibular fracture Osteophyte formation and joint space narrowing is seen. Soft tissue swelling is seen in the anterior proximal portion of the leg. Vascular calcifications are also noted. IMPRESSION: Soft tissue swelling and degenerative changes without evidence of acute fracture. ACT 112: Negative or not required by law. Electronically signed by: Niraj Chamorro M.D. 09/21/2022 4:10 PM
--- NOTE | 2022-09-21 16:36 | CT Scan Report ---
CT head/brain wo con CLINICAL HISTORY: fall Technique: Contiguous axial CT images of the head were acquired from the base of the skull to the danielle dg without intravenous contrast administration. Images were viewed in brain, subdural and bone [facility]. Automated dose lowering techniques and/or adjustment according to patient size were utilized for this exam. Comparison: Comparison is made to CT head 06/30/2022 Findings: Areas of decreased attenuation are present in the periventricular and subcortical white matter bilate rally consistent with small vessel ischemic disease. Generalized cerebral atrophy with commensurate e nlargement of the ventricles, sulci, and cisterns is also present. There is no acute intracranial hem orrhage or evidence of acute territorial infarction. No shift of the midline structures, mass effect, or extra-axial abnormalities are shown. Atherosclerotic calcifications are present in the intracran ial segments of the internal carotid arteries. Imaged portions of the paranasal sinuses and mastoid air cells are clear. The orbits appear normal. There are no acute fractures of the calvaria. Scalp swelling is seen in the left frontal soft tissue s. Impression: No acute intracranial hemorrhage or skull fractures. Scalp swelling is seen in the left frontal soft tissues. ACT 112: Negative or not required by law. Electronically signed by: Niraj Chamorro M.D. 09/21/2022 4:35 PM
--- NOTE | 2022-09-21 16:37 | CT Scan Report ---
CT OF THE CERVICAL SPINE WITHOUT CONTRAST CLINICAL HISTORY: Fall. Evaluate for fracture. COMPARISON STUDY: Cervical spine CT October 25, 2010 and CTA of the neck June 10, 2020. TECHNIQUE: Helical axial images of the cervical spine were obtained without IV contrast. Sagittal a nd coronal reconstructions were viewed. Automated exposure control was utilized for the study. A do se lowering technique was utilized adhering to the principles of ALARA. FINDINGS: Alignment of the cervical spine is anatomic. Vertebral body heights are maintained. No acut e cervical spine fracture or subluxation is present. There is no prevertebral edema. Facet joints are intact. Moderate multilevel degenerative disc disease and facet arthrosis is present. Left subclavi an pacer is incidentally noted. IMPRESSION: No acute cervical spine fracture or subluxation. ACT 112: Negative or not required by law. Electronically signed by: Hardik Fernandez M.D. 09/21/2022 4:36 PM
[2022-09-21] MEDS ORDERED: ONDANSETRON INJ 2 MG/ML 2 ML VIAL IV PRN (16:43)
[2022-09-21] MEDS ORDERED: MAGNESIUM HYDROXIDE SUSP 30 ML UDC PO PRN (16:43)
--- NOTE | 2022-09-21 16:52 | Electrocardiogram Report ---
Test Reason : Blood Pressure : / mmHG Vent. Rate : 070 BPM Atrial Rate : 441 BPM P-R Int : 000 ms QRS Dur : 164 ms QT Int : 480 ms P-R-T Axes : 000 269 082 degrees QTc Int : 518 ms Ventricular-paced rhythm Abnormal ECG When compared with ECG of 28-JUN-2022 13:35, Vent. rate has increased BY 7 BPM Confirmed by Sarthak Dickson ([id number]) on 09/21/2022 4:52:26 PM Referred By: REFERRED SELF Confirmed By:Sarthak Dickson
[2022-09-21] MEDS ORDERED: NALOXONE HCL 0.4 MG/1 ML VIAL/CARP IV PRN (16:59)
[2022-09-21] MEDS ORDERED: bisacodyL 10 MG SUPP PR PRN (16:59)
[2022-09-21] MEDS ORDERED: GLUCOSE 10 TAB/TUBE PO PRN (17:10)
[2022-09-21] MEDS ORDERED: DEXTROSE 50% 50 ML SYRINGE IV PRN (17:10)
[2022-09-21] MEDS ORDERED: GLUCOSE 40% GEL 15 GM TUBE PO PRN (17:10)
[2022-09-21] MEDS ORDERED: CARBOHYDRATES FOR HYPOGLYCEMIA PO PRN (17:10)
[2022-09-21] MEDS ORDERED: GLUCAGON FOR INJ 1 MG VIAL SQ PRN (17:10)
[2022-09-21] MEDS: ACETAMINOPHEN 1,000 MG/100 ML VIAL IV SCH (17:31)
[2022-09-21] MEDS: cefTRIAXone SODIUM 2,000 MG in DEXTROSE 5% 50 ML IV SCH (18:13)
[2022-09-21] MEDS ORDERED: TRANEXAMIC ACID / 0.7% NACL 1,000 MG/100 ML BAG IV ONE (19:13)
[2022-09-21] MEDS ORDERED: TRANEXAMIC ACID IV ONE (19:30)
[2022-09-21] MEDS ORDERED: SODIUM CHLORIDE 0.9% IV ONE (19:30)
--- NOTE | 2022-09-21 20:37 | Orthopedic Consultation ---
Date of Service September 21, 2022 Assessment & Plan (1) Closed intertrochanteric fracture of left femur: 87-year-old female community ambulator with walker sustained fall at home resulting immediate pain and inability to bear weight. She has an unstable intertrochanteric fracture of the left hip. Reviewed the diagnosis, prognosis and recommended treatment of surgery with the patient and her son Neal by phone. I recommend surgical stabilization with a trochanteric fixation nail as soon as medically safe to do so. -N.p.o. at midnight possible surgery tomorrow -Appreciate medical work-up and clearance for surgery -Recommend vitamin K this evening to reverse Coumadin. -I ordered TXA for this evening and will use perioperatively. -Currently nonweightbearing to the left lower extremity, likely will need bedrest until surgery -Informed consent reviewed and documented with both the patient and her son by phone. -Tentatively posted for surgery tomorrow, pending clearance I reviewed the risks and benefits surgery in detail. The risks we discussed included but not limited to infection, blood loss requiring transfusion, neurovascular injury, nonunion, malunion, hardware complications, pain syndromes, blood clots, and complications related to anesthesia. The patient and her son asked appropriate questions, demonstrated a good understanding, and desire to proceed with surgery as I recommend. History of Present Illness Reason for Consultation: Left hip fracture Requesting Physician: . Attending Physician: Carmen Lemon MD 87 y/o F with PMH PAF s/p cardioversion in 2019 anticoagulated on Coumadin, CAD s/p balloon angioplasty RCA in 1996, chronic diastolic heart failure, tachybrady syndrome s/p pacemaker, HTN, dyslipidemia, DM II, CKD III, CVA, seizure, PMR, GERD presented to ER with c/o tripping on blanket today causing fall and left hip pain today. She reports that she is a household walker with a cane and a community ambulator with a walker. Primarily use for back pain and other medical issues. She denies previous hip arthritis symptoms requiring treatment. She is in si gnificant pain with any movement. Pain is isolated to the left hip. Allergies Allergy/AdvReac Type Severity Reaction Status Date / Time metoclopramide Allergy Intermediate neuro Verified 06/28/22 16:58 complications adhesive Allergy Unknown ALLERGY TO Verified 06/28/22 16:58 TAPE naproxen [From Naprosyn] AdvReac Intermediate CAN'T Verified 06/28/22 16:58 TOLERATE, DEPRESSED, EMOTIONAL doxycycline AdvReac Mild n/v Verified 06/28/22 16:58 Home Medications Medication Instructions Recorded Confirmed Type albuterol sulfate 90 mcg/actuation 2 puff inhalation QID PRN 08/20/19 09/21/22 History aerosol inhaler (Ventolin HFA) Shortness Of Breath aspirin 81 mg tablet,delayed 81 mg PO 3XWK 08/20/19 09/21/22 History release atorvastatin 40 mg tablet 40 mg PO QAM 08/20/19 09/21/22 History diclofenac sodium 1 % topical gel 4 g topical QID 08/20/19 09/21/22 History isosorbide mononitrate 30 mg 30 mg PO QAM 08/20/19 09/21/22 History tablet,extended release 24 hr magnesium oxide 400 mg PO QAM 08/20/19 09/21/22 History omeprazole 20 mg capsule,delayed 20 mg PO DAILYBB 08/20/19 09/21/22 History release potassium chloride 10 mEq 10 meq PO UD 08/20/19 09/21/22 History tablet,extended release(part/cryst) (Klor-Con M) amiodarone 200 mg tablet 100 mg PO QAM 06/03/20 09/21/22 History acetaminophen 500 mg tablet 1,000 mg PO Q6H PRN Pain 06/20/21 09/21/22 History (Tylenol Extra Strength) biotin 10,000 mcg capsule 10,000 mcg PO DAILY 06/20/21 09/21/22 History levetiracetam 500 mg tablet 500 mg PO BID 06/20/21 09/21/22 History metoprolol succinate 25 mg 12.5 mg PO DAILY 06/20/21 09/21/22 History tablet,extended release 24 hr multivitamin-ferrous 1 tab PO DAILY 06/20/21 09/21/22 History fumarate-folic acid 18 mg-400 mcg tablet (Centrum) oxycodone-acetaminophen 10 mg-325 1 tab PO Q6H PRN Severe Pain 06/20/21 09/21/22 History mg tablet (Scale Score 7-10) trazodone 50 mg tablet 25 mg PO HS 06/20/21 09/21/22 History warfarin 4 mg tablet 4 mg PO UD 06/20/21 09/21/22 History docusate sodium 100 mg capsule 200 mg PO DAILY 06/28/22 09/21/22 History duloxetine 60 mg capsule,delayed 60 mg PO QAM 06/28/22 09/21/22 History release furosemide 20 mg tablet 20 mg PO Q72H #30 tabs 07/05/22 09/21/22 Rx Past Med/Surg History Medical History CAD (coronary artery disease) "1996 - PTCA to RCA 2011 - cath that showed patent RCA and no further disease" Chronic back pain Chronic diastolic heart failure CKD stage 3 due to type 1 diabetes mellitus Diastolic CHF DM type 2 (diabetes mellitus, type 2) Dyslipidemia GERD (gastroesophageal reflux disease) History of nephrolithiasis Polymyalgia rheumatica Surgical History History of cystoscopy History of lithotripsy History of PTCA S/P appendectomy S/P cholecystectomy S/P hysterectomy Family History Aunt Breast cancer Mother Diabetes Coronary heart disease Father Silicosis Social History Smoking Status: Former smoker Tobacco Type: Cigarettes packs per day: 0.5; Smoking End Date: Quit in 1994; Second Hand Exposure: No; Hx Alcohol Use: No Hx Substance Use: No Preferred Language: [place]atian Communication Ability: Effective Visual Impairment: Partially Limited Ingredient Mixer Required: No Beliefs That Will Affect Care: None marital status: / Current Living Situation: Alone Current Living Situation Comment: daughter/ son has been staying with her for past month. Feels Safe at Home: Yes Safety Concerns: Feels Safe At This Time Assistive Devices: Cane, Denture - Upper, Denture - Lower, Glasses and Walker Review of Systems All systems reviewed & are unremarkable except as noted in HPI & below. Physical Exam Overall good insight of her diagnosis and treatment options. LLE: No obvious bruising or skin compromise about the hip. Irritable with logroll. Positive DF/PF/EHL. DNVI. Bilateral upper extremities: Mild chronic bruising, full active range of motion without pain. RLE: Atraumatic and neurovascular intact Constitutional WD/WN, vitals as above Respiratory normal respiratory effort; no respiratory distress Cardiovascular Extremities: normal capillary refill; no edema Chest (Breasts) Chest: normal inspection of chest Skin no rashes, warm and dry Psychiatric A+Ox3, euthymic affect Results & Data Results & Data Laboratory Results H & H 09/21/22 Range/Units 14:03 Hgb 13.7 (12.0-16.0) g/dl Hct 40.4 (37.0-47.0) % Coagulation 09/21/22 Range/Units 14:03 INR 2.6 H (0.9-1.1) Diagnostic Findings Radiographs of the left hip demonstrate a displaced peritrochanteric fracture extending to the lesser trochanter with moderate comminution. PG Care Time/CCT Total # of Minutes Spent Total Time Spent with Patient: Total time spent is greater than 50% in coordination of care (as documented) at patient's floor/unit and/or counseling patient: Coding Level of Care Code 91615 IN/OBS CONSULT LVL 4,60M (57 - DECISION FOR SURGERY) Diagnoses Closed intertrochanteric fracture of left femur S72.142A
[2022-09-21] MEDS ORDERED: PHYTONADIONE 5 MG TAB PO STA (20:44)
[2022-09-21] MEDS: traZODone HCL 50 MG TAB PO SCH (21:46)
[2022-09-21] MEDS: levETIRAcetam 500 MG TAB PO SCH (21:46)
[2022-09-21] MEDS: DOCUSATE SODIUM/SENNA 50/8.6MG TAB PO SCH (21:46)
[2022-09-21] MEDS: INSULIN ASPART PER UNIT CHARGE SC SCH (21:46)
[2022-09-22] MEDS: ACETAMINOPHEN 1,000 MG/100 ML VIAL IV SCH ×2 (01:04→09:15)
[2022-09-22] MEDS ORDERED: Nursing to Pharmacy Communication SCH (05:00)
[2022-09-22] MEDS ORDERED: ceFAZolin 2000MG 2,000 MG/15 ML SYR IV SCH (06:00)
[2022-09-22] MEDS ORDERED: TRANEXAMIC ACID / 0.7% NACL 1,000 MG/100 ML BAG IV SCH ×2 (06:00→06:30)
[2022-09-22 06:47] LABS: Hematocrit (blood only) 36.9 % (37.0-47.0); Hemoglobin 12.2 g/dl (12.0-16.0); Mean Corpuscular Hgb Conc 33.1 g/dL (32.0-36.0); Mean Corpuscular Volume 90.7 fL (80.0-100.0); Mean Platelet Volume 11.2 fL (9.4-12.4); Platelet Count 188 K/uL (130-400); RDW Coefficient of Variation 15.5 % (11.5-14.5); RDW Standard Deviation 50.4 fL (36.4-46.3); Red Blood Count 4.07 M/uL (4.20-5.40); White Blood Count 8.25 K/ul (4.8-10.8)
[2022-09-22] MEDS: MoRPHine SULFATE 2 MG/ML CARP IV PRN ×4 (06:49→20:22)
[2022-09-22 06:56] LABS: BUN Creatinine Ratio 18.8 (10-20); Calcium 8.8 mg/dl (8.6-10.3); Creatinine Clr Calc Pharmacy 27.9 ml/min; Est GFR (African American) 35.3 ml/min; Est GFR (Non-African American) 30.5 ml/min; Potassium 3.9 mmol/L (3.5-5.1)
[2022-09-22 07:02] LABS: Prothrombin Time 30.5 Seconds (9.0-12.0)
[2022-09-22 07:11] LABS: Estimated Average Glucose 123 mg/dl; Hemoglobin A1C 5.9 % (4.5-5.6)
[2022-09-22] MEDS ORDERED: PHYTONADIONE 5 MG in DEXTROSE 5% 50 ML IV STA (07:18)
[2022-09-22] MEDS ORDERED: SODIUM CHLORIDE 0.9% 250 ML IV PRN (07:21)
[2022-09-22] MEDS: INSULIN ASPART PER UNIT CHARGE SC SCH ×4 (07:37→20:52)
[2022-09-22] MEDS: MAGNESIUM OXIDE 400 MG TAB PO SCH (07:38)
[2022-09-22] MEDS: AMIODARONE 200 MG TAB PO SCH (07:38)
[2022-09-22] MEDS: levETIRAcetam 500 MG TAB PO SCH ×2 (07:41→20:51)
[2022-09-22] MEDS: ATORVASTATIN 40 MG TAB PO SCH (07:41)
[2022-09-22] MEDS: DULoxetine HCL 60 MG CAP PO SCH (07:41)
[2022-09-22] MEDS: PANTOprazole 40 MG TAB PO SCH (07:41)
[2022-09-22] MEDS: ISOSORBIDE MONO EXTENDED REL 30 MG TABCR PO SCH (07:41)
[2022-09-22] MEDS: METOPROLOL SUCC 25MG EXT REL TAB PO SCH (07:41)
--- NOTE | 2022-09-22 08:03 | Orthopedic Progress Note ---
Date of Service September 22, 2022 Assessment & Plan (1) Closed intertrochanteric fracture of left femur: 87 yo F w CAD, CHF, Warfarin anticoag for Afib, Pacemaker, DM2 admitted with Left Intertrochanteric Femur Fracture. Indicated for fracture stabilization with cephalomedullary nail. Surgery pending anticoagulation reversal. - Surgery postponed for INR 3.0 this am - Diet can resume today. NPO tomorrow - INR check at 1700 - If INR above 2, recommend IV Vit K dosing to avoid delay of surgery greater than 48 hrs - INR check at 0600 tomorrow Subjective 'Miserable' because she is stuck in bed. Pain tolerable unless she moves. Appetite ok. Review of Systems All systems reviewed & are unremarkable except as noted in HPI & below. Physical Exam RLE: exam unchanged. DNVI Constitutional WD/WN, vitals as above no acute distress and not intoxicated appearing Respiratory normal respiratory effort; no labored breathing Cardiovascular Extremities: normal capillary refill Results & Data Results & Data Laboratory Results H & H 09/21/22 09/22/22 Range/Units 14:03 06:11 Hgb 13.7 12.2 (12.0-16.0) g/dl Hct 40.4 36.9 L (37.0-47.0) % Coagulation 09/21/22 09/22/22 Range/Units 14:03 06:11 INR 2.6 H 3.0 H (0.9-1.1) Diagnostic Findings . PG Care Time/CCT Total # of Minutes Spent Total Time Spent with Patient: Total time spent is greater than 50% in coordination of care (as documented) at patient's floor/unit and/or counseling patient: Coding Level of Care Code 02982 SUB INP/OBS CARE 3/50MIN Diagnoses Closed intertrochanteric fracture of left femur S72.142A
[2022-09-22] MEDS: oxyCODONE HCL IR 5 MG TAB (IMMEDIATE RELEASE) PO PRN ×2 (11:04→22:52)
--- NOTE | 2022-09-22 11:31 | Cardiology Consultation ---
Date of Consultation September 22, 2022 Assessment & Plan (1) Preop cardiovascular exam: (2) Closed intertrochanteric fracture of left femur: (3) Chronic diastolic heart failure: (4) Chronic atrial fibrillation: (5) Anticoagulated: Plan 87-year-old female appears stable/compensated from a cardiovascular perspective. No signs/symptoms of volume overload. Heart rate controlled with ventricular paced rhythm on telemetry. Her INR is 3.0 today and she received 1 dose of vitamin K this morning. A repeat INR is planned for this afternoon with additional vitamin K if needed. Perioperative cardiovascular risk is considered moderate. No further cardiac testing or intervention is recommended at this time prior to surgery. Continue beta-adolfo uninterrupted perioperatively. Resume anticoagulation when bleeding risk is deemed acceptable by the operating surgeon. Thank you for allow me to participate in the care of your patient. History of Present Illness Reason for Consultation: Preoperative cardiovascular evaluation Requesting Physician: Dr. Olvera Attending Physician: Butch Olvera MD History of Present Illness 87-year-old female presented to the emergency department secondary to mechanical fall with resultant left hip fracture. Complex cardiovascular history noted below. She is chronically anticoagulated due to history of atrial fibrillation. INR 3.0 today. Surgery postponed until tomorrow 09/23/2022. Feeling well from a cardiovascular perspective. Denies chest pain or unusual shortness of breath. Function capacity and chronic dyspnea on exertion unchanged over the past several months. Recently evaluated in the cardiology clinic 09/13/2022 with stable cardiac status reported at that time. Complex cardiovascular history listed below. Patient is currently resting comfortably. Lying supine. Aside from left hip discomfort, she offers no concerns/complaints. Cardiac history is copied from the [facility] record: 1. Coronary Atherosclerosis with prior intervention with balloon angioplasty of the right coronary artery 1996. 2. Repeat cardiac catheterization December 2011 no progression coronary disease. 3. Hypertension, hypertensive heart disease with chronic diastolic heart failure 4. Hyperlipidemia. 5. Type II diabetes mellitus. 6. Asthmatic lung disease. 7. Irritable bowel syndrome. 8. Polymyalgia rheumatica. 9. Paroxysmal atrial fibrillation status post TRISH guided synchronized cardioversion August 24, 2019 on antiarrhythmic therapy with amiodarone 10. Tachy-amy syndrome status post dual-chamber pacemaker insertion November 16, 2019, [employer] [place] XT DR MONIQUE 11. 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 CKD stage 3 Allergies Allergy/AdvReac Type Severity Reaction Status Date / Time metoclopramide Allergy Intermediate neuro Verified 06/28/22 16:58 complications adhesive Allergy Unknown ALLERGY TO Verified 06/28/22 16:58 TAPE naproxen [From Naprosyn] AdvReac Intermediate CAN'T Verified 06/28/22 16:58 TOLERATE, DEPRESSED, EMOTIONAL doxycycline AdvReac Mild n/v Verified 06/28/22 16:58 Home Medications Medication Instructions Recorded Confirmed Type albuterol sulfate 90 mcg/actuation 2 puff inhalation QID PRN 08/20/19 09/21/22 History aerosol inhaler (Ventolin HFA) Shortness Of Breath aspirin 81 mg tablet,delayed 81 mg PO 3XWK 08/20/19 09/21/22 History release atorvastatin 40 mg tablet 40 mg PO QAM 08/20/19 09/21/22 History diclofenac sodium 1 % topical gel 4 g topical QID 08/20/19 09/21/22 History isosorbide mononitrate 30 mg 30 mg PO QAM 08/20/19 09/21/22 History tablet,extended release 24 hr magnesium oxide 400 mg PO QAM 08/20/19 09/21/22 History omeprazole 20 mg capsule,delayed 20 mg PO DAILYBB 08/20/19 09/21/22 History release potassium chloride 10 mEq 10 meq PO UD 08/20/19 09/21/22 History tablet,extended release(part/cryst) (Klor-Con M) amiodarone 200 mg tablet 100 mg PO QAM 06/03/20 09/21/22 History acetaminophen 500 mg tablet 1,000 mg PO Q6H PRN Pain 06/20/21 09/21/22 History (Tylenol Extra Strength) biotin 10,000 mcg capsule 10,000 mcg PO DAILY 06/20/21 09/21/22 History levetiracetam 500 mg tablet 500 mg PO BID 06/20/21 09/21/22 History metoprolol succinate 25 mg 12.5 mg PO DAILY 06/20/21 09/21/22 History tablet,extended release 24 hr multivitamin-ferrous 1 tab PO DAILY 06/20/21 09/21/22 History fumarate-folic acid 18 mg-400 mcg tablet (Centrum) oxycodone-acetaminophen 10 mg-325 1 tab PO Q6H PRN Severe Pain 06/20/21 09/21/22 History mg tablet (Scale Score 7-10) trazodone 50 mg tablet 25 mg PO HS 06/20/21 09/21/22 History warfarin 4 mg tablet 4 mg PO UD 06/20/21 09/21/22 History docusate sodium 100 mg capsule 200 mg PO DAILY 06/28/22 09/21/22 History duloxetine 60 mg capsule,delayed 60 mg PO QAM 06/28/22 09/21/22 History release furosemide 20 mg tablet 20 mg PO Q72H #30 tabs 07/05/22 09/21/22 Rx Patient History Medical History CAD (coronary artery disease) "1996 - PTCA to RCA 2011 - cath that showed patent RCA and no further disease" Chronic back pain Chronic diastolic heart failure CKD stage 3 due to type 1 diabetes mellitus Diastolic CHF DM type 2 (diabetes mellitus, type 2) Dyslipidemia GERD (gastroesophageal reflux disease) History of nephrolithiasis Polymyalgia rheumatica Surgical History History of cystoscopy History of lithotripsy History of PTCA S/P appendectomy S/P cholecystectomy S/P hysterectomy Family History Aunt Breast cancer Mother Diabetes Coronary heart disease Father Silicosis Social History Smoking Status: Former smoker Tobacco Type: Cigarettes packs per day: 0.5; Smoking End Date: Quit in 1994; Second Hand Exposure: No; Hx Alcohol Use: No Hx Substance Use: No Preferred Language: American Communication Ability: Effective Visual Impairment: Partially Limited Plodder Operator Required: No Beliefs That Will Affect Care: None marital status: / Current Living Situation: Alone Current Living Situation Comment: daughter/ son has been staying with her for past month. Feels Safe at Home: Yes Safety Concerns: Feels Safe At This Time Assistive Devices: Cane, Denture - Upper, Denture - Lower, Glasses and Walker Review of Systems Review of Systems: All systems reviewed & are unremarkable except as noted in Subjective Physical Exam Constitutional: well developed and well nourished; no acute distress Respiratory: normal respiratory effort; no respiratory distress, no labored breathing and no retractions Auscultation: lungs clear to auscultation bilaterally; no crackles, no rales, no rhonchi and no wheezes Cardiovascular: Rate/Rhythm: regular rate Heart Sounds: normal S1 and normal S2; no murmur Vessels: radial pulses present; no JVD and no carotid bruit Gastrointestinal (Abdomen): Inspection/Auscultation: abdomen normal to inspection and normal bowel sounds; abdomen not distended Neurologic: CN's II-XI intact bilaterally and moves all extremities; no focal motor deficits Motor/Sensory: no tremor Psychiatric: A+Ox3, euthymic affect Results & Data Vital Signs (Past 12 Hours) Vital Signs Temp Pulse Pulse Resp BP BP Pulse Ox 09/22/22 09:42 60 09/22/22 07:46 36.5 C 68 19 136/77 95 09/22/22 04:00 36.5 C 60 18 128/74 95 09/22/22 01:24 60 O2 Del Method 09/22/22 09:42 09/22/22 07:46 Room Air 09/22/22 04:00 Room Air 09/22/22 01:24 Laboratory Results Cardiac Enzymes 09/21/22 Range/Units 14:03 AST 17 (13-39) U/L Coagulation 09/21/22 09/22/22 Range/Units 14:03 06:11 PT 26.6 H 30.5 H (9.0-12.0) Seconds APTT 30.5 (21.0-31.0) Seconds CBC 09/21/22 09/22/22 Range/Units 14:03 06:11 WBC 8.10 8.25 (4.8-10.8) K/ul RBC 4.60 4.07 L (4.20-5.40) M/uL Hgb 13.7 12.2 (12.0-16.0) g/dl Hct 40.4 36.9 L (37.0-47.0) % Plt Count 190 188 (130-400) K/uL Neut # (Auto) 5.88 (1.40-6.50) K/uL Lymph # (Auto) 1.61 (1.2-3.4) K/uL [place] # (Auto) 0.40 (0.11-0.59) K/uL Eos # (Auto) 0.15 (0-0.50) K/uL Baso # (Auto) 0.03 (0-0.2) K/uL Comprehensive Metabolic Panel 09/21/22 09/22/22 Range/Units 14:03 06:11 Sodium 138 138 (136-145) mmol/L Potassium 4.0 3.9 (3.5-5.1) mmol/L Chloride 107 104 (98-107) mmol/L Carbon Dioxide 23 27 (21-32) mmol/L BUN 26 H 29 H (6-23) mg/dl Creatinine 1.36 H 1.54 H (0.6-1.2) mg/dl Glucose 119 H 96 (70-99(Fasting)) mg/dl Calcium 9.5 8.8 (8.6-10.3) mg/dl AST 17 (13-39) U/L ALT 8 (7-52) U/L Alkaline Phosphatase 77 (34-104) U/L Total Protein 5.9 L (6.0-8.3) gm/dl Albumin 3.7 (3.4-5.0) gm/dl Intake and Output 09/21/22 09/22/22 09/22/22 22:59 06:59 14:59 Intake Total 228.7 / 428.7 200 / 428.7 150.5 / 150.5 Output Total 550 / 550 Balance 228.7 / -121.3 -350 / -121.3 150.5 / 150.5 Intake: IV 228.7 / 328.7 100 / 328.7 150.5 / 150.5 Acetaminophen 1,000 mg In 100 100 / 200 100 / 200 100 / 100 ml @ 400 mls/hr IV Q8H [facility] Rx#: [id number] Phytonadione 5 mg In Dextrose 5 50.5 / 50.5 % 50 ml @ 101 mls/hr IV NOW STA Rx#:[id number] Tranexamic Acid 870 mg In 58.7 / 58.7 Sodium Chloride 0.9% 50 ml @ 234.8 mls/hr IV ONCE ONE Rx#: [id number] cefTRIAXone SODIUM 2,000 mg In 70 / 70 Dextrose 5% 50 ml @ 100 mls/hr IV Q24H [facility] Rx#:[id number] Oral 100 / 100 Output: Urine Amount (Catheter) 550 / 550 [place]/Indwelling 550 / 550 Other: Other Intake Source NPO/SIPS/WITH MEDS Weight 86.8 kg 84.5 kg 84.5 kg Weight Measurement Method Built in [facility] Built in [facility] Patient Weight 09/23/22 06:59 Weight 84.5 kg Diagnostic Findings Telemetry reveals atrial fibrillation with a ventricular paced rhythm at 60 bpm. Pseudofusion beats noted. ECG: Atrial fibrillation with ventricular pacing.
--- NOTE | 2022-09-22 11:31 | Hospitalist Progress Note ---
Date of Service September 22, 2022 Assessment & Plan (1) Fall: (2) Closed fracture of left hip: (3) Abnormal finding on urinalysis: (4) Paroxysmal atrial fibrillation: (5) Chronic diastolic heart failure: (6) CAD (coronary artery disease): (7) DM type 2 (diabetes mellitus, type 2): (8) Tachy-amy syndrome: (9) HTN (hypertension): (10) CKD (chronic kidney disease), stage III: (11) CVA (cerebral vascular accident): (12) Seizure-like activity: Plan Patient is 87 y/o F with PMH PAF s/p cardioversion in 2019 anticoagulated on Coumadin, CAD s/p balloon angioplasty RCA in 1996, chronic diastolic heart failure, tachybrady syndrome s/p pacemaker, HTN, dyslipidemia, DM II, CKD III, CVA, seizure, PMR, GERD presented to ER 09/21 with c/o tripping on blanket today causing fall and left hip fracture. CT head: No acute intracranial hemorrhage or skull fractures. Scalp swelling is seen in the left frontal soft tissues. CT C-spine: No acute fracture or subluxation CXR: No acute infiltrate Hip x-ray:Comminuted fracture of the left hip Left tibia/fibular x-ray: Soft tissue swelling and degenerative changes without evidence of acute fracture Mechanical fall with closed left hip fracture -Seen by orthopedics- Surgery could not be done today because of elevated INR still at 3 despite 5 mg of vitamin K yesterday. Another 5 mg vitamin K was given earlier this morning in anticipation of surgery today, however surgery postponed for tomorrow. Recheck INR. -Continue pain management, bowel regimen, bedrest, n.p.o. after midnight -OR tomorrow -PT OT evaluation afterwards Abnormal UA-concern for UTI. On Rocephin pending urine culture results Paroxysmal atrial fibrillation:S/p cardioversion 2019. Anticoagulated on Coumadin - Holding Coumadin for surgery, reversing INR. - Continue amiodarone, metoprolol succinate Chronic diastolic heart failure: Appears euvolemic, Hold Lasix tomorrow for surgery. Patient takes Lasix every 72 hours at home. CAD (coronary artery disease): S/p balloon angioplasty to RCA in 1996. Cardiac cath 2011 no progression coronary artery disease; EKG: Paced rhythm - Continue aspirin, atorvastatin, isosorbide, and metoprolol succinate DM type 2 (diabetes mellitus, type 2): A1c: 6.1 on 06/30/2022; Not on medications at home - NovoLog sliding scale per protocol Tachy-amy syndrome: S/p pacemaker in 2019; Paced rhythm on EKG HTN (hypertension): Continue metoprolol succinate CKD (chronic kidney disease), stage III: Cr: 1.36. Baseline~1.3; Monitor renal functions, avoid nephrotoxic agents when possible CVA (cerebral vascular accident): Continue aspirin, statin History of seizure disorder: Continue Keppra DVT prophylaxis-INR therapeutic, Coumadin on hold, SCD Disposition- Hip surgery tomorrow, will need PT OT evaluation and rehab afterwards Admission and Anticipated Discharge Date Admission Date: September 21, 2022 Subjective Patient was seen and examined at bedside. Complaining of pain whenever she tries to move. States her pain is unbearable and would like to get the surgery done as soon as possible. She is surprised she has no ecchymosis given that she bruises easily and is on anticoagulation. Surgery could not be done today because of elevated INR despite overnight vitamin K. Denies any chest pain, palpitations, dizziness, shortness of breath, nausea or vomiting. Review of Systems Review of Systems: All systems reviewed & are unremarkable except as noted in Subjective Physical Exam Physical Exam: General: Lying comfortably in bed, not in distress, on room air HEENT: EOMI, LASHA, MMM Chest: Clear breath sounds bilaterally, no wheezes or crackles CVS: Regular rate and rhythm, normal heart sounds, no murmur Abdomen: Soft, non tender, not distended, normal bowel sounds Neuro: Awake, alert, oriented, conversing well, non focal Extremities: No cyanosis, clubbing or edema Genitourinary: [place] with clear urine Skin: No ecchymosis noted Results & Data Results & Data Vital Signs (Past 12 Hours) Vital Signs Temp Pulse Pulse Resp BP BP Pulse Ox 09/22/22 09:42 60 09/22/22 07:46 36.5 C 68 19 136/77 95 09/22/22 04:00 36.5 C 60 18 128/74 95 09/22/22 01:24 60 O2 Del Method 09/22/22 09:42 09/22/22 07:46 Room Air 09/22/22 04:00 Room Air 09/22/22 01:24 Laboratory Results Short CBC 09/21/22 09/22/22 Range/Units 14:03 06:11 WBC 8.10 8.25 (4.8-10.8) K/ul Hgb 13.7 12.2 (12.0-16.0) g/dl Hct 40.4 36.9 L (37.0-47.0) % Plt Count 190 188 (130-400) K/uL BMP 09/21/22 09/22/22 14:03 06:11 Sodium 138 138 Potassium 4.0 3.9 Chloride 107 104 Carbon Dioxide 23 27 BUN 26 H 29 H Creatinine 1.36 H 1.54 H Glucose 119 H 96 Calcium 9.5 8.8 Liver Function 09/21/22 Range/Units 14:03 Total Bilirubin 0.5 (0.2-1.0) mg/dl AST 17 (13-39) U/L ALT 8 (7-52) U/L Alkaline Phosphatase 77 (34-104) U/L Albumin 3.7 (3.4-5.0) gm/dl Urine 09/21/22 Range/Units 13:54 Urine Color Yellow Urine Appearance Cloudy A (Clear) Urine pH 5.0 (4.5-7.5) Ur Specific [place] 1.013 (1.000-1.030) Urine Protein 1+ H (Negative) Urine Glucose (UA) Negative (Negative) Medications Administered Current Inpatient Medications Amiodarone HCl (Amiodarone 200 Mg Tab) [facility] [place] Stop: 10/22/22 08:59 Last Admin: 09/22/22 07:38 Dose: 100 mg Aspirin (Aspirin 81 Mg Ectab) 81 mg PO MoWeFr@0900 [facility] Stop: 10/24/22 08:59 Atorvastatin Calcium (Atorvastatin 40 Mg Tab) 40 mg PO QAM [facility] Stop: 10/22/22 08:59 Last Admin: 09/22/22 07:41 Dose: 40 mg Bisacodyl (Bisacodyl 10 Mg Supp) 10 mg RI DAILY PRN PRN Reason: Constipation Stop: 10/21/22 16:58 Dextrose (Dextrose 50% 50 Ml Syringe) 25 - 50 ml IV UD PRN; Protocol PRN Reason: Hypoglycemia Protocol Stop: 10/21/22 17:09 Duloxetine HCl (Duloxetine Hcl 60 Mg Cap) 60 mg PO QAM [facility] Stop: 10/22/22 08:59 Last Admin: 09/22/22 07:41 Dose: 60 mg Glucagon (Glucagon For Inj 1 Mg Vial) 1 mg SQ UD PRN; Protocol PRN Reason: Hypoglycemia Protocol Stop: 10/21/22 17:09 Glucose (Glucose 10 Tab/Tube) 4 - 8 tab PO UD PRN; Protocol PRN Reason: Hypoglycemia Treatment Stop: 10/21/22 17:09 Glucose (Glucose 40% Gel 15 Gm Tube) 15 - 30 gm PO UD PRN; Protocol PRN Reason: Hypoglycemia Protocol Stop: 10/21/22 17:09 Cefazolin Sodium (Ancef 2000mg) 2,000 mg in 15 mls @ 3.75 mls/min IV PREOP [facility]; Protocol Stop: 09/22/22 14:00 Tranexamic Acid (Tranexamic Acid / 0.7% Nacl) 1,000 mg in 100 mls @ 600 mls/hr IV TODAY@0630 [facility] Stop: 09/22/22 14:00 Tranexamic Acid (Tranexamic Acid / 0.7% Nacl) 1,000 mg in 100 mls @ 600 mls/hr IV TODAY@06 [facility] Stop: 09/22/22 14:00 Ceftriaxone Sodium 2,000 mg/ (Dextrose) 70 mls @ 100 mls/hr IV Q24H [facility]; Protocol Stop: 09/26/22 17:14 Last Infusion: 09/21/22 22:32 Dose: Infused Acetaminophen (Ofirmev) 1,000 mg in 100 mls @ 400 mls/hr IV Q8H [facility] Stop: 09/22/22 17:14 Last Infusion: 09/22/22 09:53 Dose: Infused Sodium Chloride (Nss) 250 mls @ 15 mls/hr IV .[id number] PRN PRN Reason: For Transfusion Duration Stop: 09/22/22 17:21 Insulin Aspart (Insulin Aspart Per Unit Charge) 0 units SC ACHS [facility] Stop: 10/21/22 20:59 Last Admin: 09/22/22 07:37 Dose: Not Given Isosorbide Mononitrate (Isosorbide [place] Extended Rel 30 Mg Tabcr) 30 mg PO QAM [facility] Stop: 10/22/22 08:59 Last Admin: 09/22/22 07:41 Dose: 30 mg Levetiracetam (Levetiracetam 500 Mg Tab) 500 mg PO BID [facility] Stop: 10/21/22 20:59 Last Admin: 09/22/22 07:41 Dose: 500 mg Magnesium Hydroxide (Magnesium Hydroxide Susp 30 Ml Udc) 30 ml PO Q12H PRN PRN Reason: Constipation Stop: 10/21/22 16:42 Magnesium Oxide (Magnesium Oxide 400 Mg Tab) 400 mg PO QAM [facility] Stop: 10/22/22 08:59 Last Admin: 09/22/22 07:38 Dose: 400 mg Metoprolol Succinate (Metoprolol Succ 25mg Ext Rel Tab) 12.5 mg PO DAILY [facility] Stop: 10/22/22 08:59 Last Admin: 09/22/22 07:41 Dose: 12.5 mg Miscellaneous (Carbohydrates For Hypoglycemia ) 15 - 30 gm PO UD PRN PRN Reason: Hypoglycemia Protocol Stop: 10/21/22 17:09 Morphine Sulfate (Morphine Sulfate 2 Mg/Ml Carp) 2 mg IV Q3H PRN PRN Reason: Severe Pain (Scale 7, 8, 9,10) Stop: 10/05/22 16:58 Last Admin: 09/22/22 10:24 Dose: 2 mg Naloxone HCl (Naloxone Hcl 0.4 Mg/1 Ml Vial/Carp) 0.1 mg IV UD PRN PRN Reason: Opiate Overdose Stop: 10/21/22 16:58 Ondansetron HCl (Ondansetron Inj 2 Mg/Ml 2 Ml Vial) 4 mg IV Q6H PRN PRN Reason: Nausea Stop: 10/21/22 16:42 Oxycodone HCl (Oxycodone Hcl Ir 5 Mg Tab (Immediate Release)) 5 mg PO Q4H PRN PRN Reason: MODERATE Pain (4,5,6) & Pre PT Stop: 10/05/22 16:58 Last Admin: 09/22/22 11:04 Dose: 5 mg Pantoprazole Sodium (Pantoprazole 40 Mg Tab) 40 mg PO DAILYBB [facility] Stop: 10/22/22 06:29 Last Admin: 09/22/22 07:41 Dose: 40 mg Polyethylene Glycol (Polyethylene (Miralax) 17 Gm Pack) 17 gm PO DAILY PRN PRN Reason: Constipation Stop: 10/21/22 16:42 Senna/Docusate Sodium (Docusate Sodium/Senna 50/8.6mg Tab) 2 tab PO HS [facility] Stop: 10/21/22 20:59 Last Admin: 09/21/22 21:46 Dose: 2 tab Trazodone HCl (Trazodone Hcl 50 Mg Tab) 25 mg PO [facility] Stop: 10/21/22 20:59 Last Admin: 09/21/22 21:46 Dose: 25 mg
[2022-09-22] MEDS: POLYETHYLENE (MIRALAX) 17 GM PACK PO PRN (12:47)
--- NOTE | 2022-09-22 17:03 | Anesthesiology Consultation ---
Date of Service September 22, 2022 Assessment & Plan Chart Review Chart Review: Acceptable Risk for Surgery and Patient NOT seen in Pre Admission Testing Consults Requested none ASA ASA4 Proposed Anesthesia Anesthesia Type: General Anesthesia Line Insertion: Arterial line History Surgery Operation Date: 09/23/22 07:30 Proposed Procedures p Intramedullary Sergio Femur(Left) - Noel Burgess MD Height/Weight Height: 5 ft 3 in Weight: 84.5 kg Allergies Allergy/AdvReac Type Severity Reaction Status Date / Time metoclopramide Allergy Intermediate neuro Verified 06/28/22 16:58 complications adhesive Allergy Unknown ALLERGY TO Verified 06/28/22 16:58 TAPE naproxen [From Naprosyn] AdvReac Intermediate CAN'T Verified 06/28/22 16:58 TOLERATE, DEPRESSED, EMOTIONAL doxycycline AdvReac Mild n/v Verified 06/28/22 16:58 Medications Home Medications Medication Instructions Recorded Confirmed Last Taken albuterol sulfate 90 mcg/actuation 2 puff inhalation QID PRN 08/20/19 09/21/22 06/07/20 aerosol inhaler (Ventolin HFA) Shortness Of Breath aspirin 81 mg tablet,delayed 81 mg PO 3XWK 08/20/19 09/21/22 06/19/21 release atorvastatin 40 mg tablet 40 mg PO QAM 08/20/19 09/21/22 06/20/21 diclofenac sodium 1 % topical gel 4 g topical QID 08/20/19 09/21/22 06/10/20 11:30 isosorbide mononitrate 30 mg 30 mg PO QAM 08/20/19 09/21/22 06/20/21 tablet,extended release 24 hr magnesium oxide 400 mg PO QAM 08/20/19 09/21/22 06/20/21 omeprazole 20 mg capsule,delayed 20 mg PO DAILYBB 08/20/19 09/21/22 06/20/21 release potassium chloride 10 mEq 10 meq PO UD 08/20/19 09/21/22 06/20/21 tablet,extended release(part/cryst) (Klor-Con M) amiodarone 200 mg tablet 100 mg PO QAM 06/03/20 09/21/22 06/20/21 acetaminophen 500 mg tablet 1,000 mg PO Q6H PRN Pain 06/20/21 09/21/22 Unknown (Tylenol Extra Strength) biotin 10,000 mcg capsule 10,000 mcg PO DAILY 06/20/21 09/21/22 06/20/21 levetiracetam 500 mg tablet 500 mg PO BID 06/20/21 09/21/22 06/20/21 metoprolol succinate 25 mg 12.5 mg PO DAILY 06/20/21 09/21/22 06/20/21 tablet,extended release 24 hr multivitamin-ferrous 1 tab PO DAILY 06/20/21 09/21/22 06/20/21 fumarate-folic acid 18 mg-400 mcg tablet (Centrum) oxycodone-acetaminophen 10 mg-325 1 tab PO Q6H PRN Severe Pain 06/20/21 09/21/22 Unknown mg tablet (Scale Score 7-10) trazodone 50 mg tablet 25 mg PO HS 06/20/21 09/21/22 06/20/21 warfarin 4 mg tablet 4 mg PO UD 06/20/21 09/21/22 06/20/21 docusate sodium 100 mg capsule 200 mg PO DAILY 06/28/22 09/21/22 Unknown duloxetine 60 mg capsule,delayed 60 mg PO QAM 06/28/22 09/21/22 Unknown release furosemide 20 mg tablet 20 mg PO Q72H #30 tabs 07/05/22 09/21/22 Unknown Active Medications Generic Name Dose Route Start Last Admin Trade Name Filippoq PRN Reason Stop Dose Admin Amiodarone HCl 100 mg 09/22/22 09:00 09/22/22 07:38 Amiodarone 200 Mg Tab PO 10/22/22 08:59 100 mg QAM [facility] Administration Atorvastatin Calcium 40 mg 09/22/22 09:00 09/22/22 07:41 Atorvastatin 40 Mg Tab PO 10/22/22 08:59 40 mg QAM [facility] Administration Duloxetine HCl 60 mg 09/22/22 09:00 09/22/22 07:41 Duloxetine Hcl 60 Mg Cap PO 10/22/22 08:59 60 mg QAM [facility] Administration Ceftriaxone Sodium 2,000 mg/ 70 mls @ 100 mls/hr 09/21/22 17:15 09/21/22 22:32 Dextrose IV 09/26/22 17:14 Infused Q24H [facility] Infusion Protocol Acetaminophen 1,000 mg in 100 mls @ 400 mls/hr 09/21/22 17:15 09/22/22 09:53 Ofirmev IV 09/22/22 17:14 Infused Q8H [facility] Infusion Insulin Aspart 0 units 09/21/22 21:00 09/22/22 12:42 Insulin Aspart Per Unit Charge SC 10/21/22 20:59 3 units ACHS [facility] Administration Isosorbide Mononitrate 30 mg 09/22/22 09:00 09/22/22 07:41 Isosorbide [place] Extended Rel 30 Mg Tabcr PO 10/22/22 08:59 30 mg QAM [facility] Administration Levetiracetam 500 mg 09/21/22 21:00 09/22/22 07:41 Levetiracetam 500 Mg Tab PO 10/21/22 20:59 500 mg BID [facility] Administration Magnesium Oxide 400 mg 09/22/22 09:00 09/22/22 07:38 Magnesium Oxide 400 Mg Tab PO 10/22/22 08:59 400 mg QAM [facility] Administration Metoprolol Succinate 12.5 mg 09/22/22 09:00 09/22/22 07:41 Metoprolol Succ 25mg Ext Rel Tab PO 10/22/22 08:59 12.5 mg DAILY [facility] Administration Morphine Sulfate 2 mg 09/21/22 16:59 09/22/22 16:37 Morphine Sulfate 2 Mg/Ml Carp IV 10/05/22 16:58 2 mg Q3H PRN Administration Severe Pain (Scale 7, 8, 9,10) Oxycodone HCl 5 mg 09/21/22 16:59 09/22/22 11:04 Oxycodone Hcl Ir 5 Mg Tab (Immediate Release) PO 10/05/22 16:58 5 mg Q4H PRN Administration MODERATE Pain (4,5,6) & Pre PT Pantoprazole Sodium 40 mg 09/22/22 06:30 09/22/22 07:41 Pantoprazole 40 Mg Tab PO 10/22/22 06:29 40 mg DAILYBB [facility] Administration Polyethylene Glycol 17 gm 09/21/22 16:43 09/22/22 12:47 Polyethylene (Miralax) 17 Gm Pack PO 10/21/22 16:42 17 gm DAILY PRN Administration Constipation Senna/Docusate Sodium 2 tab 09/21/22 21:00 09/21/22 21:46 Docusate Sodium/Senna 50/8.6mg Tab PO 10/21/22 20:59 2 tab HS [facility] Administration Trazodone HCl 25 mg 09/21/22 21:00 09/21/22 21:46 Trazodone Hcl 50 Mg Tab PO 10/21/22 20:59 25 mg HS [facility] Administration Past Medical History Medical History CAD (coronary artery disease) "1996 - PTCA to RCA 2011 - cath that showed patent RCA and no further disease" Chronic back pain Chronic diastolic heart failure CKD stage 3 due to type 1 diabetes mellitus Diastolic CHF DM type 2 (diabetes mellitus, type 2) Dyslipidemia GERD (gastroesophageal reflux disease) History of nephrolithiasis Polymyalgia rheumatica Exercise / Class Metabolic Activity III < 4 Walking/Shop/Light housework Past Family History Family History Aunt Breast cancer Mother Diabetes Coronary heart disease Father Silicosis Past Surgical History Surgical History History of cystoscopy History of lithotripsy History of PTCA S/P appendectomy S/P cholecystectomy S/P hysterectomy Past Anesthesia History No Hx of Anesthesia Complications and No Family Hx of Anesthesia Complications History of PONV No Hx of PONV and No Hx of Motion Sickness Social History Smoking Status: Former smoker Smoking End Date: Quit in 1994 Hx Alcohol Use: No Alcohol type: other alcohol intake frequency: holidays/special occasions only Hx Substance Use: No substance use type: does not use Physical Exam Vital Signs Last Vital Signs Temp 36.6 C 09/22/22 16:27 Pulse 58 L 09/22/22 16:27 Resp 20 09/22/22 16:27 BP 124/76 09/22/22 16:27 Pulse Ox 93 09/22/22 16:27 O2 Del Method Room Air 09/22/22 16:27 Testing Laboratory Results 09/22/22 06:11 09/22/22 06:11 PT 30.5 Seconds (9.0-12.0) H 09/22/22 06:11 INR 3.0 (0.9-1.1) H 09/22/22 06:11 APTT 30.5 Seconds (21.0-31.0) 09/21/22 14:03 Hemoglobin A1c 5.9 % (4.5-5.6) H 09/22/22 06:11 Urine Color Yellow 09/21/22 13:54 Urine Appearance Cloudy (Clear) A 09/21/22 13:54 Urine pH 5.0 (4.5-7.5) 09/21/22 13:54 Ur Specific [place] 1.013 (1.000-1.030) 09/21/22 13:54 Urine Protein 1+ (Negative) H 09/21/22 13:54 Urine Glucose (UA) Negative (Negative) 09/21/22 13:54 Urine Ketones Negative (Negative) 09/21/22 13:54 Urine Nitrite Negative (Negative) 09/21/22 13:54 Ur Leukocyte Esterase 2+ (Negative) H 09/21/22 13:54 Urine WBC (Auto) >30 /hpf (0-5) H 09/21/22 13:54 Urine RBC (Auto) 0-4 /hpf (0-4) 09/21/22 13:54 U Hyaline Cast (Auto) 1-5 /lpf (0-5) 09/21/22 13:54 U Epithel Cells (Auto) 5-10 /lpf (0-5) H 09/21/22 13:54 Urine Bacteria (Auto) Negative (Negative) 09/21/22 13:54 Blood Type O Positive 09/21/22 17:41 Antibody Screen NEGATIVE 09/21/22 17:41 09/21/22 13:54 Urine Culture - Preliminary Urine,Straight Cath Proteus species 09/22/22 09/22/22 09/22/22 16:49 12:06 07:31 POC Glucose 113 H 165 H 86 Electrocardiogram Date: 09/21/22 V-Paced @ 70 Chest X-Ray Date: 09/21/22 Findings: + NAD dual lead pacer present Echocardiogram Date: 06/11/20 EF: 60% LV Function: normal RWMA: + none Other Findings: + LVH (mild) Valvular Disease: + no significant valvular disease, + AI (mild) and + MR (mild)
[2022-09-22] MEDS: cefTRIAXone SODIUM 2,000 MG in DEXTROSE 5% 50 ML IV SCH (17:42)
--- NOTE | 2022-09-22 18:39 | Communication Note ---
Date of Service: September 22, 2022 Awaiting correction of INR for surgery to proceed. INR this am,3.0.
[2022-09-22 18:50] LABS: INR 1.7 (0.9-1.1); Prothrombin Time 17.2 Seconds (9.0-12.0)
[2022-09-22] MEDS: DOCUSATE SODIUM/SENNA 50/8.6MG TAB PO SCH (20:51)
[2022-09-22] MEDS: traZODone HCL 50 MG TAB PO SCH (20:51)
[2022-09-23] MEDS: MoRPHine SULFATE 2 MG/ML CARP IV PRN ×4 (00:25→22:49)
[2022-09-23] MEDS: PANTOprazole 40 MG TAB PO SCH (05:47)
[2022-09-23] MEDS ORDERED: INSULIN ASPART PER UNIT CHARGE SC SCH (06:00)
[2022-09-23 06:53] LABS: Hemoglobin 12.1 g/dl (12.0-16.0); Mean Corpuscular Hemoglobin 30.3 pg (25.0-34.0); Mean Corpuscular Hgb Conc 33.6 g/dL (32.0-36.0); Mean Platelet Volume 11.3 fL (9.4-12.4); Platelet Count 177 K/uL (130-400); RDW Coefficient of Variation 15.1 % (11.5-14.5); RDW Standard Deviation 49.4 fL (36.4-46.3); White Blood Count 8.61 K/ul (4.8-10.8)
[2022-09-23 07:13] LABS: Creatinine Clr Calc Pharmacy 34.3 ml/min; Est GFR (African American) 45.4 ml/min; Est GFR (Non-African American) 39.2 ml/min
[2022-09-23] MEDS: DULoxetine HCL 60 MG CAP PO SCH (07:14)
[2022-09-23] MEDS: levETIRAcetam 500 MG TAB PO SCH ×2 (07:14→20:34)
[2022-09-23 07:15] LABS: INR 1.2 (0.9-1.1); Prothrombin Time 12.4 Seconds (9.0-12.0)
[2022-09-23] MEDS: ISOSORBIDE MONO EXTENDED REL 30 MG TABCR PO SCH (07:15)
[2022-09-23] MEDS: MAGNESIUM OXIDE 400 MG TAB PO SCH (07:15)
[2022-09-23] MEDS: ATORVASTATIN 40 MG TAB PO SCH (07:15)
[2022-09-23] MEDS: METOPROLOL SUCC 25MG EXT REL TAB PO SCH (07:15)
[2022-09-23] MEDS: AMIODARONE 200 MG TAB PO SCH (07:15)
[2022-09-23] MEDS ORDERED: fentaNYL citrate PF 100 MCG/2 ML VIAL ONE ×3 (07:40→10:17)
--- NOTE | 2022-09-23 07:46 | Orthopedic Progress Note ---
Date of Service September 23, 2022 Assessment & Plan (1) Closed intertrochanteric fracture of left femur: 87 yo F w CAD, CHF, Warfarin anticoag for Afib, Pacemaker, DM2 admitted with Left Intertrochanteric Femur Fracture. Indicated for fracture stabilization with cephalomedullary nail. Cleared for surgery today. -Expect weightbearing as tolerated -Resume warfarin therapy postoperatively and will need to be bridged -PT/OT: We will need their recommendations for further disposition postop -Antibiotic perioperative prophylaxis for 24 hours today Subjective Reports she is ready to go to surgery today. No issues overnight. Review of Systems All systems reviewed & are unremarkable except as noted in HPI & below. Physical Exam RLE: Exam is unchanged. Neurovascular intact. Constitutional WD/WN, vitals as above no acute distress and not intoxicated appearing Respiratory normal respiratory effort; no labored breathing Cardiovascular Extremities: normal capillary refill Results & Data Results & Data Laboratory Results H & H 09/21/22 09/22/22 09/23/22 Range/Units 14:03 06:11 06:19 Hgb 13.7 12.2 12.1 (12.0-16.0) g/dl Hct 40.4 36.9 L 36.0 L (37.0-47.0) % Coagulation 09/21/22 09/22/22 09/22/22 Range/Units 14:03 06:11 18:00 INR 2.6 H 3.0 H 1.7 H (0.9-1.1) 09/23/22 Range/Units 06:19 INR 1.2 H (0.9-1.1) Diagnostic Findings . PG Care Time/CCT Total # of Minutes Spent Total Time Spent with Patient: Total time spent is greater than 50% in coordination of care (as documented) at patient's floor/unit and/or counseling patient: Coding Level of Care Code 73885 SUB INP/OBS CARE 3/50MIN Diagnoses Closed intertrochanteric fracture of left femur S72.142A
[2022-09-23] MEDS ORDERED: ePHEDrine sulfate 50 MG/ML AMP IV PRN (07:57)
[2022-09-23] MEDS ORDERED: PROMETHAZINE HCL 12.5 MG in SODIUM CHLORIDE 0.9% 50 ML IV PRN (07:57)
[2022-09-23] MEDS ORDERED: NALOXONE HCL 0.4 MG/1 ML VIAL/CARP IV PRN (07:57)
[2022-09-23] MEDS ORDERED: ONDANSETRON INJ 2 MG/ML 2 ML VIAL IV PRN (07:57)
[2022-09-23] MEDS ORDERED: FLUMAZENIL 0.1 MG/1 ML 10 ML VIAL IV PRN (07:57)
[2022-09-23] MEDS ORDERED: ATROPINE SULFATE 0.1 MG/ML 10ML SYR IV PRN (07:57)
[2022-09-23] MEDS ORDERED: HYDROmorphone INJ 1 MG/ML SYRINGE IV PRN (07:57)
[2022-09-23] MEDS ORDERED: ceFAZolin 330 MG/ML 1 GM VIAL ONE (08:25)
[2022-09-23] MEDS ORDERED: BUPIVACAINE/EPINEPHRINE 0.5% MPF 1:200,000 30 ML VIAL ONE ×2 (08:29→08:42)
[2022-09-23] MEDS ORDERED: ONDANSETRON INJ 2 MG/ML 2 ML VIAL ONE (08:48)
[2022-09-23] MEDS ORDERED: PROPOFOL IV EMULSION 10 MG/ML 20 ML VIAL IV ONE (08:48)
[2022-09-23] MEDS ORDERED: PHENYLEPHRINE 100MCG/ML 5ML SYR ONE (08:48)
[2022-09-23] MEDS ORDERED: LIDOCAINE 2% MPF LOCAL 5 ML VIAL ONE (08:48)
[2022-09-23] MEDS ORDERED: TRANEXAMIC ACID / 0.7% NACL 1000MG/100ML BAG IV ONE (09:03)
[2022-09-23] MEDS ORDERED: ceFAZolin 2000MG 2,000 MG/15 ML SYR IV ONE (09:09)
--- NOTE | 2022-09-23 09:34 | Fluoroscopy Report ---
FL hip LT 2-3V CLINICAL HISTORY: LEFT HIP IN NAIL COMPARISON STUDY: Left hip radiographs September 21, 2022. FLUOROSCOPY TIME: 1 minute and 48 seconds. Ka, r: 21.12 mGy FLUOROSCOPIC IMAGES: 4 FINDINGS: Fluoroscopy was provided during open reduction and internal fixation of the intertrochanter ic fracture of the left femur with intramedullary kelley and trochanteric nail. Fracture alignment has i mproved. Lesser trochanter is displaced. A linear density projecting over the subtrochanteric region of the left femur on AP image was on the patient. IMPRESSION: Fluoroscopy provided during open reduction and internal fixation of the intertrochanteri c fracture of the left femur. ACT 112: Negative or not required by law. Electronically signed by: Hardik Fernandez M.D. 09/23/2022 9:32 AM
--- NOTE | 2022-09-23 10:07 | Operative Report ---
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 11.0 mm titanium helical blade of 100 mm length. Distal interlock screw measuring 50 mm. Specimens none Anesthesia Type MAC Spinal Regional Complications none Disposition Accompanied Patient To Recovery: No Disposition: Surgical ICU Indications 87-year-old female admitted with a displaced comminuted intertrochanteric femur fracture on the left. She was evaluated and I recommended surgical stabilization with a cephalomedullary nail. Surgery was delayed due to chronic anticoagulation. Once vitamin K therapy achieved appropriate INR, we proceeded with surgery. I reviewed the risks and benefits of surgery in detail with the patient and her son, Neal, and informed consent was obtained as they wish to proceed. Description of Procedure On the day of surgery should be was greeted in the preoperative holding area and the informed consent was reviewed and confirmed. The surgical site was then identified by the patient and signed by myself. The patient was taken to the operating placed by the OR table and anesthesia was induced. The patient is then positioned on the fracture table. All ciera prominences were well padded. The operative foot was placed in the fracture boot with abundant padding. The well leg was secured. We then positioned the lower extremities in a scissor fashion with a non-op leg flexed down to allow visualization with fluoroscopy which was confirmed before we prepped and draped. Surgical timeout was called and verified by all present. Antibiotics were infused, and equipment was available and functional. The procedure was initiated with a closed reduction maneuvers. Gentle in-line traction pulled the fracture out to length. The limb was then internally rotated to reduce the proximal femur. Flexion and adduction were used to adjust the reduction and allow access to the greater trochanter. We had adequate reduction prior to prepping and draping. The leg was then prepped and draped in usual sterile fashion. Surgical timeout was reconfirmed. We initiated the surgical internal fixation portion with finding the start point with the tip of the greater trochanter. Fluoroscopic guidance was used and a small poke hole was established. The start point was confirmed on fluoroscopy in AP and lateral planes and the pin was advanced using a mallet. An incision was made about the pin to allow access for the reamers. The pin was then advanced past the lesser trochanter, and its position was confirmed using AP and lateral fluoroscopy. Using the protective sleeve, the opening reamer was advanced under power with fluoroscopic guidance over the guidepin. It was advanced slowly. The reduction wire was then advanced down the distal femur to the level of the superior pole of the patella. Measurement was taken from the tip of the trochanter down to the end of the guidewire, and the nail length was selected. We then began sequential reaming. We started with 11 and used fluoroscopy to guide our reaming. We advanced the reaming in gradual increments up to a 12.5. An 11 mm nail was loaded onto the jig and advanced manually down the canal, while ensuring maintenance of the reduction on fluoroscopy. We then tapped it down into place until we achieve the good position for our cephalo-medullary screw. The cannula was placed on the jig to allow positioning of the cephalo-medullary screw. The skin incision was made in the appropriate spot. The jig cannulas were then placed against the lateral cortex. The cephalo-medullary screw guidepin was advanced towards the femoral head. The center-center position was confirmed on fluoroscopy in AP and lateral planes. The length of the screw was measured off the guide. The helical blade screw was then opened on the back table and prepared on the screwdriver. The lateral cortical opening drill, followed by the triple drill reamer for the helical blade was advanced under fluoroscopic guidance. The helical blade was advanced over the guidepin to appropriate position. The helical blade was locked in rotation and then the traction was taken off. Fluoroscopy confirmed maintenance of reduction and adequate position of the implant. The compression sleeve was then advanced against the lateral femur to improve the trochanteric-shaft reduction and compress the intertrochanteric region fracture. Attention was then directed distally to perform the interlock screws in using perfect [place] technique. 1 interlock screw was placed with a 5 mm diameter. The length was measured using a depth gauge, with fluoroscopic guidance. This completed the fixation. This completed the fixation of the fracture. Fluoroscopy was used in both AP and lateral planes to evaluate the entirety of the fracture and implant. Reduction and implant positions were acceptable. The wounds were then thoroughly irrigated with bulb syringe and normal saline. The deep fascial layer was approximated with #1 Vicryl suture. The dermal layer was approximated using 2-0 Vicryl suture. The final skin closure was completed with guicho. Wounds were dressed with sterile Xeroform, sterile gauze, and Ioban/Tegaderm over ABDs. The patient tolerated procedure well, awoke from anesthesia without complication, was extubated in the operating room, and transferred to the PACU in stable condition. Disposition: The patient be weightbearing as tolerated. I recommended routine DVT prophylaxis consisting of low molecular weight heparin to bridge until she r eaches therapeutic level of Coumadin. 24 hours of antibiotic prophylaxis should be continued. I attest to the content of the Intraoperative Record and any orders documented therein. Any exceptions are noted below.
[2022-09-23] MEDS: fentaNYL citrate PF 100 MCG/2 ML VIAL IV PRN ×2 (10:23→10:28)
--- NOTE | 2022-09-23 11:11 | XRay Report ---
XR femur LT 2V routine CLINICAL HISTORY: Postoperative evaluation. COMPARISON: Left hip radiograph September 21, 2022. FINDINGS: There are postoperative findings consistent with open reduction and internal fixation of t he intertrochanteric fracture of the left femur with intramedullary kelley and trochanteric nail. Fractu re alignment has improved. Lesser trochanter remains displaced. There is a distal screw. No unexpecte d radiopaque foreign bodies are present. There are skin guicho. IMPRESSION: Postoperative findings consistent with internal fixation of the intertrochanteric fractur e of the left femur. ACT 112: Negative or not required by law. Electronically signed by: Hardik Fernandez M.D. 09/23/2022 11:10 AM
--- NOTE | 2022-09-23 11:17 | Anesthesiology Progress Note ---
Date of Service September 23, 2022 Anesthesia Post Procedure Vital Signs Vital Signs: Temp Pulse Pulse Pulse Resp BP BP 09/23/22 10:55 83 13 138/71 09/23/22 10:45 36.4 C L 87 15 136/64 09/23/22 10:35 79 16 139/81 09/23/22 10:25 85 20 127/82 09/23/22 10:15 76 18 153/90 H 09/23/22 10:05 79 16 151/88 H 09/23/22 09:55 36.0 C L 85 18 168/90 H 09/23/22 07:13 36.8 C 65 19 139/85 09/23/22 07:00 66 09/23/22 03:08 37.1 C 75 18 159/82 H 09/22/22 22:14 65 09/22/22 23:07 36.8 C 69 18 145/83 H 09/22/22 19:24 36.6 C 68 18 157/93 H 09/22/22 16:27 36.6 C 58 L 20 124/76 09/22/22 16:08 62 09/22/22 11:51 36.7 C 64 20 157/82 H Pulse Ox O2 Del Method O2 Flow Rate 09/23/22 10:55 96 Oxymask 2 09/23/22 10:45 97 Oxymask 2 09/23/22 10:35 100 Oxymask 2 09/23/22 10:25 97 Oxymask 2 09/23/22 10:15 96 Oxymask 4 09/23/22 10:05 100 Oxymask 4 09/23/22 09:55 100 Oxymask 6 09/23/22 07:13 95 Room Air 09/23/22 07:00 09/23/22 03:08 94 Room Air 09/22/22 22:14 09/22/22 23:07 95 Room Air 09/22/22 19:24 93 Room Air 09/22/22 16:27 93 Room Air 09/22/22 16:08 09/22/22 11:51 95 Room Air Pain Intensity Left Hip: Pain Intensity: 6 Transfer of Care Handoff Completed per policy Notes Mental Status: alert / awake / arousable Patient Amnestic to Procedure: Yes Nausea / Vomiting: adequately controlled Pain: adequately controlled Airway Patency, RR, SpO2: stable & adequate BP & HR: stable & adequate Hydration State: stable & adequate Anesthetic Complications: no major complications apparent
[2022-09-23] MEDS ORDERED: Nursing to Pharmacy Communication SCH (11:30)
--- NOTE | 2022-09-23 13:38 | Hospitalist Progress Note ---
Date of Service September 23, 2022 Assessment & Plan (1) Closed fracture of left hip: (2) Paroxysmal atrial fibrillation: (3) Chronic diastolic heart failure: (4) CAD (coronary artery disease): (5) DM type 2 (diabetes mellitus, type 2): (6) Tachy-amy syndrome: (7) HTN (hypertension): (8) CKD (chronic kidney disease), stage III: (9) CVA (cerebral vascular accident): (10) Seizure-like activity: (11) Urinary tract infection due to Proteus: Plan Patient is 87 y/o F with PMH PAF s/p cardioversion in 2019 anticoagulated on Coumadin, CAD s/p balloon angioplasty RCA in 1996, chronic diastolic heart failure, tachybrady syndrome s/p pacemaker, HTN, dyslipidemia, DM II, CKD III, CVA, seizure, PMR, GERD presented to ER 09/21 with c/o tripping on blanket today causing fall and left hip fracture. CT head: No acute intracranial hemorrhage or skull fractures. Scalp swelling is seen in the left frontal soft tissues. CT C-spine: No acute fracture or subluxation CXR: No acute infiltrate Hip x-ray:Comminuted fracture of the left hip Left tibia/fibular x-ray: Soft tissue swelling and degenerative changes without evidence of acute fracture Mechanical fall with closed left hip fracture status post ORIF 09/23 - Surgery was delayed due to elevated INR requiring reversal of Coumadin with vitamin K. -Status post open reduction and internal fixation of fracture today by orthopedics -Recommendations noted. Pain management, bowel regimen, PT evaluation. sc lovenox resumed by orthopedics along with coumadin Proteus UTI. Pansensitive. On Rocephin D3/5 pending sensitivities Paroxysmal atrial fibrillation:S/p cardioversion 2019. Anticoagulated on Coumadin - Resuming Coumadin - Continue amiodarone, metoprolol succinate Chronic diastolic heart failure: Appears euvolemic, on intermittent Lasix at home. CAD (coronary artery disease): S/p balloon angioplasty to RCA in 1996. Cardiac cath 2011 no progression coronary artery disease; EKG: Paced rhythm - Continue aspirin, atorvastatin, isosorbide, and metoprolol succinate DM type 2 (diabetes mellitus, type 2): A1c: 6.1 on 06/30/2022; Not on medications at home - NovoLog sliding scale per protocol Tachy-amy syndrome: S/p pacemaker in 2020; Paced rhythm on EKG HTN (hypertension): Continue metoprolol succinate CKD (chronic kidney disease), stage III: Cr at baseline. Baseline~1.3; Monitor renal functions, avoid nephrotoxic agents when possible CVA (cerebral vascular accident): Continue aspirin, statin History of seizure disorder: Continue Keppra DVT prophylaxis- sc lovenox with Coumadin until INR therapeutic as per ortho Disposition- pending PT/OT evaluation Updated son at bedside Admission and Anticipated Discharge Date Admission Date: September 21, 2022 Subjective Patient was seen and examined after the surgery. Patient is drowsy from anesthesia. She wakes up to voice-states she would like to get more sleep. Denies any issues. No fever, nausea or vomiting. Review of Systems Review of Systems: All systems reviewed & are unremarkable except as noted in Subjective Physical Exam Physical Exam: General: Drowsy, lying comfortably in bed, not in distress, on supplemental oxygen Chest: Clear breath sounds bilaterally, no wheezes or crackles CVS: Irregular, normal heart sounds, no murmur Abdomen: Soft, non tender, not distended, normal bowel sounds Neuro: Drowsy, awakes to verbal stimuli and answers briefly appropriately Extremities: No cyanosis, clubbing or edema Genitourinary: [place] with clear urine Skin: Left thigh incision site clean dry covered with dressing and ice pack Results & Data Results & Data Vital Signs (Past 12 Hours) Vital Signs Temp Pulse Pulse Pulse Pulse Resp BP 09/23/22 13:16 79 09/23/22 12:30 36.8 C 83 17 143/92 H 09/23/22 13:13 36.1 C L 68 16 134/83 09/23/22 11:52 35.8 C L 82 17 152/89 H 09/23/22 11:36 36.5 C 82 20 146/88 H 09/23/22 11:21 36.8 C 78 17 135/72 09/23/22 11:04 36.6 C 79 19 135/88 09/23/22 10:55 83 13 138/71 09/23/22 10:45 36.4 C L 87 15 136/64 09/23/22 10:35 79 16 139/81 09/23/22 10:25 85 20 127/82 09/23/22 10:15 76 18 153/90 H 09/23/22 10:05 79 16 151/88 H 09/23/22 09:55 36.0 C L 85 18 168/90 H 09/23/22 07:13 36.8 C 65 19 09/23/22 07:00 66 09/23/22 03:08 37.1 C 75 18 159/82 H BP Pulse Ox O2 Del Method O2 Flow Rate 09/23/22 13:16 09/23/22 12:30 95 Oxymask 2 09/23/22 13:13 96 Room Air 09/23/22 11:52 98 Oxymask 2 09/23/22 11:36 97 Room Air 09/23/22 11:21 98 Oxymask 2 09/23/22 11:04 95 Oxymask 2 09/23/22 10:55 96 Oxymask 2 09/23/22 10:45 97 Oxymask 2 09/23/22 10:35 100 Oxymask 2 09/23/22 10:25 97 Oxymask 2 09/23/22 10:15 96 Oxymask 4 09/23/22 10:05 100 Oxymask 4 09/23/22 09:55 100 Oxymask 6 09/23/22 07:13 139/85 95 Room Air 09/23/22 07:00 09/23/22 03:08 94 Room Air Laboratory Results Short CBC 09/23/22 Range/Units 06:19 WBC 8.61 (4.8-10.8) K/ul Hgb 12.1 (12.0-16.0) g/dl Hct 36.0 L (37.0-47.0) % Plt Count 177 (130-400) K/uL BMP 09/23/22 06:19 Sodium 138 Potassium 4.0 Chloride 104 Carbon Dioxide 29 BUN 25 H Creatinine 1.25 H Glucose 120 H Calcium 9.0 Medications Administered Current Inpatient Medications Amiodarone HCl (Amiodarone 200 Mg Tab) 100 mg PO [facility] Stop: 10/22/22 08:59 Last Admin: 09/23/22 07:15 Dose: 100 mg Aspirin (Aspirin 81 Mg Ectab) 81 mg PO [id number] [facility] Stop: 10/24/22 08:59 Atorvastatin Calcium ([facility]atin 40 Mg Tab) [facility] Stop: 10/22/22 08:59 Last Admin: 09/23/22 07:15 Dose: 40 mg Atropine Sulfate (Atropine Sulfate 0.1 Mg/Ml 10ml Syr) 0.5 mg IV Q1M PRN PRN Reason: PACU Use-HR<40 &/or Bradycardi Stop: 09/23/22 15:58 Bisacodyl (Bisacodyl 10 Mg Supp) 10 mg NM DAILY PRN PRN Reason: Constipation Stop: 10/21/22 16:58 Dextrose (Dextrose 50% 50 Ml Syringe) 25 - 50 ml IV UD PRN; Protocol PRN Reason: Hypoglycemia Protocol Stop: 10/21/22 17:09 Duloxetine HCl (Duloxetine Hcl 60 Mg Cap) 60 mg PO QAM [facility] Stop: 10/22/22 08:59 Last Admin: 09/23/22 07:14 Dose: 60 mg Enoxaparin Sodium (Enoxaparin Inj 40 Mg/0.4 Ml Syr) 40 mg SQ Q24H [facility] Stop: 10/23/22 21:59 Ephedrine Sulfate (Ephedrine Sulfate 50 Mg/Ml Amp) 5 mg IV Q5M PRN PRN Reason: PACU Use Only-SBP<90 mmHg Stop: 09/23/22 15:58 Fentanyl Citrate (Fentanyl Citrate Pf 100 Mcg/2 Ml Vial) 25 mcg IV Q5M PRN PRN Reason: PACU Use Only-Pain Stop: 09/23/22 15:58 Last Admin: 09/23/22 10:28 Dose: 25 mcg Flumazenil (Flumazenil 0.1 Mg/1 Ml 10 Ml Vial) 0.2 mg IV Q2M PRN PRN Reason: PACU Use Only-Benzo Reversal Stop: 09/23/22 15:58 Glucagon (Glucagon For Inj 1 Mg Vial) 1 mg SQ UD PRN; Protocol PRN Reason: Hypoglycemia Protocol Stop: 10/21/22 17:09 Glucose (Glucose 10 Tab/Tube) 4 - 8 tab PO UD PRN; Protocol PRN Reason: Hypoglycemia Treatment Stop: 10/21/22 17:09 Glucose (Glucose 40% Gel 15 Gm Tube) 15 - 30 gm PO UD PRN; Protocol PRN Reason: Hypoglycemia Protocol Stop: 10/21/22 17:09 Hydromorphone HCl (Hydromorphone Inj 1 Mg/Ml Syringe) 0.25 mg IV Q5M PRN PRN Reason: PACU Use Only-Pain Stop: 09/23/22 15:58 Promethazine HCl 12.5 mg/ (Sodium Chloride) 50.5 mls @ 204 mls/hr IV ONCE PRN PRN Reason: PACU Use Only-Nausea/Vomiting Stop: 09/23/22 15:58 Cefazolin Sodium (Ancef 2000mg) 2,000 mg in 15 mls @ 3.75 mls/min IV Q8H [facility]; Protocol Stop: 09/24/22 00:03 Insulin Aspart (Insulin Aspart Per Unit Charge) 0 units SC ACHS [facility] Stop: 10/23/22 16:29 Isosorbide Mononitrate (Isosorbide [place] Extended Rel 30 Mg Tabcr) 30 mg PO QAM [facility] Stop: 10/22/22 08:59 Last Admin: 09/23/22 07:15 Dose: 30 mg Levetiracetam (Levetiracetam 500 Mg Tab) 500 mg PO BID [facility] Stop: 10/21/22 20:59 Last Admin: 09/23/22 07:14 Dose: 500 mg Magnesium Hydroxide (Magnesium Hydroxide Susp 30 Ml Udc) 30 ml PO Q12H PRN PRN Reason: Constipation Stop: 10/21/22 16:42 Magnesium Oxide (Magnesium Oxide 400 Mg Tab) [facility] Stop: 10/22/22 08:59 Last Admin: 09/23/22 07:15 Dose: 400 mg Metoprolol Succinate (Metoprolol Succ 25mg Ext Rel Tab) 12.5 mg PO DAILY [facility] Stop: 10/22/22 08:59 Last Admin: 09/23/22 07:15 Dose: 12.5 mg Miscellaneous (Carbohydrates For Hypoglycemia ) 15 - 30 gm PO UD PRN PRN Reason: Hypoglycemia Protocol Stop: 10/21/22 17:09 Morphine Sulfate (Morphine Sulfate 2 Mg/Ml Carp) 2 mg IV Q3H PRN PRN Reason: Severe Pain (Scale 7, 8, 9,10) Stop: 10/05/22 16:58 Last Admin: 09/23/22 12:41 Dose: 2 mg Naloxone HCl (Naloxone Hcl 0.4 Mg/1 Ml Vial/Carp) 0.1 mg IV UD PRN PRN Reason: Opiate Overdose Stop: 10/21/22 16:58 Naloxone HCl (Naloxone Hcl 0.4 Mg/1 Ml Vial/Carp) 0.2 mg IV Q2M PRN PRN Reason: PACU Use Only-Opiate Reversal Stop: 09/23/22 15:58 Ondansetron HCl (Ondansetron Inj 2 Mg/Ml 2 Ml Vial) 4 mg IV Q6H PRN PRN Reason: Nausea Stop: 10/21/22 16:42 Ondansetron HCl (Ondansetron Inj 2 Mg/Ml 2 Ml Vial) 4 mg IV ONCE PRN PRN Reason: PACU Use Only-Nausea/Vomiting Stop: 09/23/22 15:58 Oxycodone HCl (Oxycodone Hcl Ir 5 Mg Tab (Immediate Release)) 5 mg PO Q4H PRN PRN Reason: MODERATE Pain (4,5,6) & Pre PT Stop: 10/05/22 16:58 Last Admin: 09/22/22 22:52 Dose: 5 mg Pantoprazole Sodium (Pantoprazole 40 Mg Tab) [facility] Stop: 10/22/22 06:29 Last Admin: 09/23/22 05:47 Dose: 40 mg Polyethylene Glycol (Polyethylene (Miralax) 17 Gm Pack) 17 gm PO DAILY PRN PRN Reason: Constipation Stop: 10/21/22 16:42 Last Admin: 09/22/22 12:47 Dose: 17 gm Senna/Docusate Sodium (Docusate Sodium/Senna 50/8.6mg Tab) 2 tab PO [facility] Stop: 10/21/22 20:59 Last Admin: 09/22/22 20:51 Dose: 2 tab Trazodone HCl (Trazodone Hcl 50 Mg Tab) 25 mg PO [facility] Stop: 10/21/22 20:59 Last Admin: 09/22/22 20:51 Dose: 25 mg Warfarin Sodium (Warfarin Sod 4 Mg Tab) 4 mg PO [id number] [facility] Stop: 10/23/22 15:59 Warfarin Sodium (Warfarin Sod 6 Mg Tab) 6 mg PO [id number] [facility] Stop: 10/24/22 15:59
[2022-09-23] MEDS: oxyCODONE HCL IR 5 MG TAB (IMMEDIATE RELEASE) PO PRN (15:24)
[2022-09-23] MEDS: WARFARIN SOD 4 MG TAB PO SCH (17:21)
[2022-09-23] MEDS: ceFAZolin 2000MG 2,000 MG/15 ML SYR IV SCH ×2 (17:21→23:03)
[2022-09-23] MEDS: INSULIN ASPART PER UNIT CHARGE SC SCH ×2 (17:22→20:35)
[2022-09-23] MEDS: traZODone HCL 50 MG TAB PO SCH (20:34)
[2022-09-23] MEDS: DOCUSATE SODIUM/SENNA 50/8.6MG TAB PO SCH (20:35)
[2022-09-23] MEDS: ENOXAPARIN INJ 40 MG/0.4 ML SYR SQ SCH (21:30)
[2022-09-24] MEDS: oxyCODONE HCL IR 5 MG TAB (IMMEDIATE RELEASE) PO PRN ×3 (02:18→14:43)
[2022-09-24] MEDS: PANTOprazole 40 MG TAB PO SCH (06:05)
[2022-09-24] MEDS: MoRPHine SULFATE 2 MG/ML CARP IV PRN ×2 (06:07→11:10)
[2022-09-24 07:45] LABS: Basophils # (auto) 0.02 K/uL (0-0.2); Basophils % (auto) 0.2 %; Eosinophils # (auto) 0.03 K/uL (0-0.50); Eosinophils % (auto) 0.3 %; Hematocrit (blood only) 32.8 % (37.0-47.0); Hemoglobin 10.9 g/dl (12.0-16.0); Immature Granulocytes # (auto) 0.05 K/uL (0.01-0.20); Immature Granulocytes % (auto) 0.6 %; Lymphocytes # (auto) 2.11 K/uL (1.2-3.4); Lymphocytes % (auto) 23.8 %; Mean Corpuscular Hgb Conc 33.2 g/dL (32.0-36.0); Mean Corpuscular Volume 90.4 fL (80.0-100.0); Neutrophils # (auto) 5.84 K/uL (1.40-6.50); Neutrophils % (auto) 66.1 %; Platelet Count 195 K/uL (130-400); RDW Coefficient of Variation 15.1 % (11.5-14.5); RDW Standard Deviation 49.6 fL (36.4-46.3); Red Blood Count 3.63 M/uL (4.20-5.40); White Blood Count 8.85 K/ul (4.8-10.8)
[2022-09-24] MEDS: INSULIN ASPART PER UNIT CHARGE SC SCH ×4 (07:58→20:53)
[2022-09-24 08:02] LABS: BUN Creatinine Ratio 22.8 (10-20); Est GFR (African American) 46.3 ml/min; Magnesium 1.7 mg/dl (1.7-2.4); Phosphorus 2.8 mg/dl (2.5-4.9); Potassium 4.2 mmol/L (3.5-5.1)
[2022-09-24 08:20] LABS: INR 1.1 (0.9-1.1); Prothrombin Time 12.1 Seconds (9.0-12.0)
[2022-09-24] MEDS: AMIODARONE 200 MG TAB PO SCH (08:22)
[2022-09-24] MEDS: ISOSORBIDE MONO EXTENDED REL 30 MG TABCR PO SCH (08:23)
[2022-09-24] MEDS: ASPIRIN 81 MG ECTAB PO SCH (08:23)
[2022-09-24] MEDS: DULoxetine HCL 60 MG CAP PO SCH (08:23)
[2022-09-24] MEDS: ATORVASTATIN 40 MG TAB PO SCH (08:23)
[2022-09-24] MEDS: MAGNESIUM OXIDE 400 MG TAB PO SCH (08:23)
[2022-09-24] MEDS: levETIRAcetam 500 MG TAB PO SCH ×2 (08:24→20:52)
[2022-09-24] MEDS: METOPROLOL SUCC 25MG EXT REL TAB PO SCH (08:24)
--- NOTE | 2022-09-24 12:39 | Hospitalist Progress Note ---
Date of Service September 24, 2022 Assessment & Plan (1) Closed fracture of left hip: (2) Paroxysmal atrial fibrillation: (3) Chronic diastolic heart failure: (4) CAD (coronary artery disease): (5) DM type 2 (diabetes mellitus, type 2): (6) Tachy-amy syndrome: (7) HTN (hypertension): (8) CKD (chronic kidney disease), stage III: (9) CVA (cerebral vascular accident): (10) Seizure-like activity: (11) Urinary tract infection due to Proteus: Plan Patient is 87 y/o F with PMH PAF s/p cardioversion in 2019 anticoagulated on Coumadin, CAD s/p balloon angioplasty RCA in 1996, chronic diastolic heart failure, tachybrady syndrome s/p pacemaker, HTN, dyslipidemia, DM II, CKD III, CVA, seizure, PMR, GERD presented to ER 09/21 with c/o tripping on blanket today causing fall and left hip fracture. CT head: No acute intracranial hemorrhage or skull fractures. Scalp swelling is seen in the left frontal soft tissues. CT C-spine: No acute fracture or subluxation CXR: No acute infiltrate Hip x-ray:Comminuted fracture of the left hip Left tibia/fibular x-ray: Soft tissue swelling and degenerative changes without evidence of acute fracture Mechanical fall with closed left hip fracture status post ORIF 09/23 - Surgery was delayed due to elevated INR requiring reversal of Coumadin with vitamin K. -Status post closed reduction and internal fixation of fracture 09/23 by orthopedics -Recommendations noted. Pain management, bowel regimen, PT evaluation Proteus UTI. Pansensitive. On Rocephin D3/5. Change to keflex at discharge Paroxysmal atrial fibrillation:S/p cardioversion 2019. Anticoagulated on Coumadin - Resumed on Coumadin - Continue amiodarone, metoprolol succinate Chronic diastolic heart failure: Appears euvolemic, on intermittent Lasix at home. CAD (coronary artery disease): S/p balloon angioplasty to RCA in 1996. Cardiac cath 2011 no progression coronary artery disease; EKG: Paced rhythm - Continue aspirin, atorvastatin, isosorbide, and metoprolol succinate DM type 2 (diabetes mellitus, type 2): A1c: 6.1 on 06/30/2022; Not on medications at home - NovoLog sliding scale per protocol Tachy-amy syndrome: S/p pacemaker in 2019; Paced rhythm on EKG HTN (hypertension): Continue metoprolol succinate CKD (chronic kidney disease), stage III: Cr at baseline. Baseline~1.3; Monitor renal functions, avoid nephrotoxic agents when possible CVA (cerebral vascular accident): Continue aspirin, statin History of seizure disorder: Continue Keppra DVT prophylaxis- sc lovenox with Coumadin until INR therapeutic as per ortho Disposition- pending PT/OT evaluation Admission and Anticipated Discharge Date Admission Date: September 21, 2022 Subjective Patient was seen and examined at bedside. She feels tired. She had physical therapy and could not do much. Pain is controlled. She had decent oral intake. Passing gas but not had a bowel movement yet. Review of Systems Review of Systems: All systems reviewed & are unremarkable except as noted in Subjective Physical Exam Physical Exam: General: Lying comfortably in bed, not in distress, on room air Chest: Clear breath sounds bilaterally, no wheezes or crackles CVS: Irregular, normal heart sounds, no murmur Abdomen: Soft, non tender, not distended, normal bowel sounds Neuro: Awake, alert, answers questions appropriately Extremities: No cyanosis, clubbing or edema Genitourinary: [place] with clear urine Skin: Left thigh incision site clean dry covered with dressing and ice pack Results & Data Results & Data Vital Signs (Past 12 Hours) Vital Signs Temp Pulse Pulse Resp BP Pulse Ox O2 Del Method 09/24/22 09:30 36.5 C 73 16 141/83 H 94 Room Air 09/24/22 07:35 Room Air 09/24/22 06:01 76 09/24/22 04:03 36.7 C 70 20 142/83 H 93 Room Air Laboratory Results Short CBC 09/24/22 Range/Units 07:06 WBC 8.85 (4.8-10.8) K/ul Hgb 10.9 L (12.0-16.0) g/dl Hct 32.8 L (37.0-47.0) % Plt Count 195 (130-400) K/uL BMP 09/24/22 07:06 Sodium 134 L Potassium 4.2 Chloride 102 Carbon Dioxide 25 BUN 28 H Creatinine 1.23 H Glucose 127 H Calcium 9.0 Medications Administered Current Inpatient Medications Amiodarone HCl (Amiodarone 200 Mg Tab) 100 mg PO QAM [facility] Stop: 10/22/22 08:59 Last Admin: 09/24/22 08:22 Dose: 100 mg Aspirin (Aspirin 81 Mg Ectab) 81 mg PO MoWeFr@0900 [facility] Stop: 10/24/22 08:59 Last Admin: 09/24/22 08:23 Dose: 81 mg Atorvastatin Calcium (Atorvastatin 40 Mg Tab) [facility] Stop: 10/22/22 08:59 Last Admin: 09/24/22 08:23 Dose: 40 mg Bisacodyl (Bisacodyl 10 Mg Supp) 10 mg IA DAILY PRN PRN Reason: Constipation Stop: 10/21/22 16:58 Dextrose (Dextrose 50% 50 Ml Syringe) 25 - 50 ml IV UD PRN; Protocol PRN Reason: Hypoglycemia Protocol Stop: 10/21/22 17:09 Duloxetine HCl (Duloxetine Hcl 60 Mg Cap) 60 mg PO [facility] Stop: 10/22/22 08:59 Last Admin: 09/24/22 08:23 Dose: 60 mg Enoxaparin Sodium (Enoxaparin Inj 40 Mg/0.4 Ml Syr) 40 mg SQ Q24H [facility] Stop: 10/23/22 21:59 Last Admin: 09/23/22 21:30 Dose: 40 mg Glucagon (Glucagon For Inj 1 Mg Vial) 1 mg SQ UD PRN; Protocol PRN Reason: Hypoglycemia Protocol Stop: 10/21/22 17:09 Glucose (Glucose 10 Tab/Tube) 4 - 8 tab PO UD PRN; Protocol PRN Reason: Hypoglycemia Treatment Stop: 10/21/22 17:09 Glucose (Glucose 40% Gel 15 Gm Tube) 15 - 30 gm PO UD PRN; Protocol PRN Reason: Hypoglycemia Protocol Stop: 10/21/22 17:09 Insulin Aspart (Insulin Aspart Per Unit Charge) 0 units SC [facility] Stop: 10/23/22 16:29 Last Admin: 09/24/22 12:10 Dose: 3 units Isosorbide Mononitrate (Isosorbide [place] Extended Rel 30 Mg Tabcr) [facility] Stop: 10/22/22 08:59 Last Admin: 09/24/22 08:23 Dose: 30 mg Levetiracetam (Levetiracetam 500 Mg Tab) 500 mg PO BID [facility] Stop: 10/21/22 20:59 Last Admin: 09/24/22 08:24 Dose: 500 mg Magnesium Hydroxide (Magnesium Hydroxide Susp 30 Ml Udc) 30 ml PO Q12H PRN PRN Reason: Constipation Stop: 10/21/22 16:42 Magnesium Oxide (Magnesium Oxide 400 Mg Tab) 400 mg PO QAM [facility] Stop: 10/22/22 08:59 Last Admin: 09/24/22 08:23 Dose: 400 mg Metoprolol Succinate (Metoprolol Succ 25mg Ext Rel Tab) 12.5 mg PO DAILY [facility] Stop: 10/22/22 08:59 Last Admin: 09/24/22 08:24 Dose: 12.5 mg Miscellaneous (Carbohydrates For Hypoglycemia ) 15 - 30 gm PO UD PRN PRN Reason: Hypoglycemia Protocol Stop: 10/21/22 17:09 Morphine Sulfate (Morphine Sulfate 2 Mg/Ml Carp) 2 mg IV Q3H PRN PRN Reason: Severe Pain (Scale 7, 8, 9,10) Stop: 10/05/22 16:58 Last Admin: 09/24/22 11:10 Dose: 2 mg Naloxone HCl (Naloxone Hcl 0.4 Mg/1 Ml Vial/Carp) 0.1 mg IV UD PRN PRN Reason: Opiate Overdose Stop: 10/21/22 16:58 Ondansetron HCl (Ondansetron Inj 2 Mg/Ml 2 Ml Vial) 4 mg IV Q6H PRN PRN Reason: Nausea Stop: 10/21/22 16:42 Oxycodone HCl (Oxycodone Hcl Ir 5 Mg Tab (Immediate Release)) 5 mg PO Q4H PRN PRN Reason: MODERATE Pain (4,5,6) & Pre PT Stop: 10/05/22 16:58 Last Admin: 09/24/22 08:21 Dose: 5 mg Pantoprazole Sodium (Pantoprazole 40 Mg Tab) 40 mg PO DAILYBB [facility] Stop: 10/22/22 06:29 Last Admin: 09/24/22 06:05 Dose: 40 mg Polyethylene Glycol (Polyethylene (Miralax) 17 Gm Pack) 17 gm PO DAILY PRN PRN Reason: Constipation Stop: 10/21/22 16:42 Last Admin: 09/22/22 12:47 Dose: 17 gm Senna/Docusate Sodium (Docusate Sodium/Senna 50/8.6mg Tab) 2 tab PO HS [facility] Stop: 10/21/22 20:59 Last Admin: 09/23/22 20:35 Dose: 2 tab Trazodone HCl (Trazodone Hcl 50 Mg Tab) 25 mg PO [facility] Stop: 10/21/22 20:59 Last Admin: 09/23/22 20:34 Dose: 25 mg Warfarin Sodium (Warfarin Sod 4 Mg Tab) 4 mg PO SuTuThSa@1600 [facility] Stop: 10/23/22 15:59 Last Admin: 09/23/22 17:21 Dose: 4 mg Warfarin Sodium (Warfarin Sod 6 Mg Tab) 6 mg PO MoWeFr@1600 [facility] Stop: 10/24/22 15:59
[2022-09-24] MEDS ORDERED: cefTRIAXone SODIUM 1,000 MG in DEXTROSE 5% AD-VAN 50 ML IV SCH (12:45)
--- NOTE | 2022-09-24 12:55 | Orthopedic Progress Note ---
Date of Service September 24, 2022 Assessment & Plan (1) Closed intertrochanteric fracture of left femur: 87 yo F w POD 1 from left cephalomedullary nail for intertrochanteric fracture. Making progress as expected. -PT/OT: Weightbearing and range of motion as tolerated. -Complete 24 antibiotic prophylaxis today -Pain control per the primary team -Bridge Lovenox to Coumadin and then discontinue Lovenox for DVT prophylaxis -Leave dressing in place/reinforce until postop day 3 or before transfer. At that point, dressing change can be done daily or with hygiene. Dispo: Per PT/OT recommendations. She will follow-up with orthopedics in 2-3 weeks for staple removal and repeat x-rays. Discharge instructions placed. Please contact me via [place] text for any questions. Subjective Reports she still has continued pain in the left hip but only when she tries to move. Appetite is good. Review of Systems All systems reviewed & are unremarkable except as noted in HPI & below. Physical Exam LLE: Dressing is clean and dry and intact. Distally neurovascular intact. Constitutional WD/WN, vitals as above no acute distress and not intoxicated appearing Respiratory normal respiratory effort; no labored breathing Cardiovascular Extremities: normal capillary refill Results & Data Results & Data Laboratory Results . Diagnostic Findings Postoperative radiographs show no complications PG Care Time/CCT Total # of Minutes Spent Total Time Spent with Patient: Total time spent is greater than 50% in coordination of care (as documented) at patient's floor/unit and/or counseling patient: Coding Level of Care Code 12005 Post Operative Follow-Up Diagnoses Closed intertrochanteric fracture of left femur S72.142A
[2022-09-24] MEDS: cefTRIAXone SODIUM 2,000 MG in DEXTROSE 5% 50 ML IV SCH (13:34)
[2022-09-24] MEDS: WARFARIN SOD 6 MG TAB PO SCH (16:37)
[2022-09-24] MEDS: traZODone HCL 50 MG TAB PO SCH (20:52)
[2022-09-24] MEDS: DOCUSATE SODIUM/SENNA 50/8.6MG TAB PO SCH (20:52)
[2022-09-24] MEDS: ENOXAPARIN INJ 40 MG/0.4 ML SYR SQ SCH (21:08)
[2022-09-25] MEDS: oxyCODONE HCL IR 5 MG TAB (IMMEDIATE RELEASE) PO PRN ×2 (05:22→15:50)
[2022-09-25] MEDS: PANTOprazole 40 MG TAB PO SCH (05:47)
[2022-09-25 06:14] LABS: Hematocrit (blood only) 30.9 % (37.0-47.0); Hemoglobin 10.3 g/dl (12.0-16.0); Mean Corpuscular Hemoglobin 30.2 pg (25.0-34.0); Mean Corpuscular Hgb Conc 33.3 g/dL (32.0-36.0); Mean Corpuscular Volume 90.6 fL (80.0-100.0); Mean Platelet Volume 11.6 fL (9.4-12.4); Nucleated RBC # (auto) 0.03 K/uL (0-0.12); Nucleated RBC % (auto) 0.3 %; Platelet Count 226 K/uL (130-400); RDW Coefficient of Variation 15.4 % (11.5-14.5); RDW Standard Deviation 50.1 fL (36.4-46.3); Red Blood Count 3.41 M/uL (4.20-5.40); White Blood Count 10.35 K/ul (4.8-10.8)
[2022-09-25 06:23] LABS: BUN Creatinine Ratio 23.8 (10-20); Calcium 9.3 mg/dl (8.6-10.3); Creatinine Clr Calc Pharmacy 34.2 ml/min; Est GFR (Non-African American) 38.8 ml/min; Potassium 4.2 mmol/L (3.5-5.1)
[2022-09-25 06:35] LABS: INR 1.3 (0.9-1.1); Prothrombin Time 14.1 Seconds (9.0-12.0)
[2022-09-25] MEDS: INSULIN ASPART PER UNIT CHARGE SC SCH ×4 (08:15→20:59)
[2022-09-25] MEDS: POLYETHYLENE (MIRALAX) 17 GM PACK PO PRN (08:39)
[2022-09-25] MEDS: AMIODARONE 200 MG TAB PO SCH (08:39)
[2022-09-25] MEDS: DULoxetine HCL 60 MG CAP PO SCH (08:39)
[2022-09-25] MEDS: levETIRAcetam 500 MG TAB PO SCH ×2 (08:40→20:59)
[2022-09-25] MEDS: MAGNESIUM OXIDE 400 MG TAB PO SCH (08:40)
[2022-09-25] MEDS: ATORVASTATIN 40 MG TAB PO SCH (08:40)
[2022-09-25] MEDS: ISOSORBIDE MONO EXTENDED REL 30 MG TABCR PO SCH (08:40)
[2022-09-25] MEDS: METOPROLOL SUCC 25MG EXT REL TAB PO SCH (08:40)
[2022-09-25] MEDS: MoRPHine SULFATE 2 MG/ML CARP IV PRN (10:00)
[2022-09-25] MEDS: cefTRIAXone SODIUM 2,000 MG in DEXTROSE 5% 50 ML IV SCH (12:09)
[2022-09-25] MEDS: WARFARIN SOD 4 MG TAB PO SCH (15:48)
--- NOTE | 2022-09-25 16:39 | Hospitalist Progress Note ---
Date of Service September 25, 2022 Assessment & Plan (1) Closed fracture of left hip: (2) Paroxysmal atrial fibrillation: (3) Chronic diastolic heart failure: (4) CAD (coronary artery disease): (5) DM type 2 (diabetes mellitus, type 2): (6) Tachy-amy syndrome: (7) HTN (hypertension): (8) CKD (chronic kidney disease), stage III: (9) CVA (cerebral vascular accident): (10) Seizure-like activity: (11) Urinary tract infection due to Proteus: Plan Patient is 87 y/o F with PMH PAF s/p cardioversion in 2019 anticoagulated on Coumadin, CAD s/p balloon angioplasty RCA in 1996, chronic diastolic heart failure, tachybrady syndrome s/p pacemaker, HTN, dyslipidemia, DM II, CKD III, CVA, seizure, PMR, GERD presented to ER 09/21 with c/o tripping on blanket today causing fall and left hip fracture. CT head: No acute intracranial hemorrhage or skull fractures. Scalp swelling is seen in the left frontal soft tissues. CT C-spine: No acute fracture or subluxation CXR: No acute infiltrate Hip x-ray:Comminuted fracture of the left hip Left tibia/fibular x-ray: Soft tissue swelling and degenerative changes without evidence of acute fracture Mechanical fall with closed left hip fracture status post ORIF 09/23 - Surgery was delayed due to elevated INR requiring reversal of Coumadin with vitamin K. -Status post closed reduction and internal fixation of fracture 09/23 by orthopedics -Recommendations noted. Pain management, bowel regimen, PT evaluation- recommended however family would like her to go to [facility]. CM following. Proteus UTI. Pansensitive. On Rocephin D4/5. Paroxysmal atrial fibrillation:S/p cardioversion 2019. Anticoagulated on Coumadin - Resumed on Coumadin 09/23. INR daily to adjust coumadin - Continue amiodarone, metoprolol succinate Chronic diastolic heart failure: Appears euvolemic, on intermittent Lasix at home. CAD (coronary artery disease): S/p balloon angioplasty to RCA in 1996. Cardiac cath 2011 no progression coronary artery disease; EKG: Paced rhythm - Continue aspirin, atorvastatin, isosorbide, and metoprolol succinate DM type 2 (diabetes mellitus, type 2): A1c: 6.1 on 06/30/2022; Not on medications at home - NovoLog sliding scale per protocol Tachy-amy syndrome: S/p pacemaker in 2019; Paced rhythm on EKG HTN (hypertension): Continue metoprolol succinate CKD (chronic kidney disease), stage III: Cr at baseline. Baseline~1.3; Monitor renal functions, avoid nephrotoxic agents when possible CVA (cerebral vascular accident): Continue aspirin, statin History of seizure disorder: Continue Keppra DVT prophylaxis- sc lovenox with Coumadin until INR therapeutic as per ortho Disposition- Stable for discharge to rehab. CM following. Admission and Anticipated Discharge Date Admission Date: September 21, 2022 Subjective Patient was seen and examined at bedside. States she is tired. Pain is controlled. Denies any fever, chills, chest pain or shortness of breath. Appetite is fair. Normal oral intake. Passed gas but no bowel movement yet Review of Systems Review of Systems: All systems reviewed & are unremarkable except as noted in Subjective Physical Exam Physical Exam: General: Sitting in chair, not in distress, on room air Chest: Clear breath sounds bilaterally, no wheezes or crackles CVS: Irregular, normal heart sounds, no murmur Abdomen: Soft, non tender, not distended, normal bowel sounds Neuro: Awake, alert, answers questions appropriately Extremities: No cyanosis, clubbing or edema Genitourinary: [place] with clear urine Skin: Left thigh incision site clean dry Results & Data Results & Data Vital Signs (Past 12 Hours) Vital Signs Temp Pulse Pulse Resp BP BP Pulse Ox 09/25/22 16:00 36.4 C L 74 20 131/68 09/25/22 14:18 85 09/25/22 11:59 36.4 C L 89 18 107/73 95 09/25/22 08:39 141/86 H 09/25/22 08:00 36.7 C 75 20 151/113 H 95 09/25/22 06:00 76 O2 Del Method 09/25/22 16:00 09/25/22 14:18 09/25/22 11:59 Room Air 09/25/22 08:39 09/25/22 08:00 Room Air 09/25/22 06:00 Laboratory Results Short CBC 09/25/22 Range/Units 05:44 WBC 10.35 (4.8-10.8) K/ul Hgb 10.3 L (12.0-16.0) g/dl Hct 30.9 L (37.0-47.0) % Plt Count 226 (130-400) K/uL BMP 09/25/22 05:44 Sodium 135 L Potassium 4.2 Chloride 101 Carbon Dioxide 27 BUN 30 H Creatinine 1.26 H Glucose 136 H Calcium 9.3 Medications Administered Current Inpatient Medications Amiodarone HCl ([facility] 200 Mg Tab) [facility] Stop: 10/22/22 08:59 Last Admin: 09/25/22 08:39 Dose: 100 mg Aspirin (Aspirin 81 Mg Ectab) 81 mg PO MoWeFr@0900 [facility] Stop: 10/24/22 08:59 Last Admin: 09/24/22 08:23 Dose: 81 mg Atorvastatin Calcium (Atorvastatin 40 Mg Tab) [facility] Stop: 10/22/22 08:59 Last Admin: 09/25/22 08:40 Dose: 40 mg Bisacodyl (Bisacodyl 10 Mg Supp) 10 mg MD DAILY PRN PRN Reason: Constipation Stop: 10/21/22 16:58 Dextrose (Dextrose 50% 50 Ml Syringe) 25 - 50 ml IV UD PRN; Protocol PRN Reason: Hypoglycemia Protocol Stop: 10/21/22 17:09 Duloxetine HCl (Duloxetine Hcl 60 Mg Cap) 60 mg PO [facility] Stop: 10/22/22 08:59 Last Admin: 09/25/22 08:39 Dose: 60 mg Enoxaparin Sodium (Enoxaparin Inj 40 Mg/0.4 Ml Syr) 40 mg SQ Q24H [facility] Stop: 10/23/22 21:59 Last Admin: 09/24/22 21:08 Dose: 40 mg Glucagon (Glucagon For Inj 1 Mg Vial) 1 mg SQ UD PRN; Protocol PRN Reason: Hypoglycemia Protocol Stop: 10/21/22 17:09 Glucose (Glucose 10 Tab/Tube) 4 - 8 tab PO UD PRN; Protocol PRN Reason: Hypoglycemia Treatment Stop: 10/21/22 17:09 Glucose (Glucose 40% Gel 15 Gm Tube) 15 - 30 gm PO UD PRN; Protocol PRN Reason: Hypoglycemia Protocol Stop: 10/21/22 17:09 Ceftriaxone Sodium 2,000 mg/ (Dextrose) 70 mls @ 140 mls/hr IV Q24H [facility] Stop: 09/27/22 12:59 Last Infusion: 09/25/22 12:39 Dose: Infused Insulin Aspart (Insulin Aspart Per Unit Charge) 0 units SC ACHS [facility] Stop: 10/23/22 16:29 Last Admin: 09/25/22 12:13 Dose: 1 units Isosorbide Mononitrate (Isosorbide [place] Extended Rel 30 Mg Tabcr) 30 mg PO QAM [facility] Stop: 10/22/22 08:59 Last Admin: 09/25/22 08:40 Dose: 30 mg Levetiracetam (Levetiracetam 500 Mg Tab) 500 mg PO BID [facility] Stop: 10/21/22 20:59 Last Admin: 09/25/22 08:40 Dose: 500 mg Magnesium Hydroxide (Magnesium Hydroxide Susp 30 Ml Udc) 30 ml PO Q12H PRN PRN Reason: Constipation Stop: 10/21/22 16:42 Last Admin: 09/25/22 08:42 Dose: 30 ml Magnesium Oxide (Magnesium Oxide 400 Mg Tab) 400 mg PO QAM [facility] Stop: 10/22/22 08:59 Last Admin: 09/25/22 08:40 Dose: 400 mg Metoprolol Succinate (Metoprolol Succ 25mg Ext Rel Tab) 12.5 mg PO DAILY [facility] Stop: 10/22/22 08:59 Last Admin: 09/25/22 08:40 Dose: 12.5 mg Miscellaneous (Carbohydrates For Hypoglycemia ) 15 - 30 gm PO UD PRN PRN Reason: Hypoglycemia Protocol Stop: 10/21/22 17:09 Morphine Sulfate (Morphine Sulfate 2 Mg/Ml Carp) 2 mg IV Q3H PRN PRN Reason: Severe Pain (Scale 7, 8, 9,10) Stop: 10/05/22 16:58 Last Admin: 09/25/22 10:00 Dose: 2 mg Naloxone HCl (Naloxone Hcl 0.4 Mg/1 Ml Vial/Carp) 0.1 mg IV UD PRN PRN Reason: Opiate Overdose Stop: 10/21/22 16:58 Ondansetron HCl (Ondansetron Inj 2 Mg/Ml 2 Ml Vial) 4 mg IV Q6H PRN PRN Reason: Nausea Stop: 10/21/22 16:42 Oxycodone HCl (Oxycodone Hcl Ir 5 Mg Tab (Immediate Release)) 5 mg PO Q4H PRN PRN Reason: MODERATE Pain (4,5,6) & Pre PT Stop: 10/05/22 16:58 Last Admin: 09/25/22 15:50 Dose: 5 mg Pantoprazole Sodium (Pantoprazole 40 Mg Tab) [facility] Stop: 10/22/22 06:29 Last Admin: 09/25/22 05:47 Dose: 40 mg Polyethylene Glycol (Polyethylene (Miralax) 17 Gm Pack) 17 gm PO DAILY PRN PRN Reason: Constipation Stop: 10/21/22 16:42 Last Admin: 09/25/22 08:39 Dose: 17 gm Senna/Docusate Sodium (Docusate Sodium/Senna 50/8.6mg Tab) 2 tab PO [facility] Stop: 10/21/22 20:59 Last Admin: 09/24/22 20:52 Dose: 2 tab Trazodone HCl (Trazodone Hcl 50 Mg Tab) 25 mg PO [facility] Stop: 10/21/22 20:59 Last Admin: 09/24/22 20:52 Dose: 25 mg Warfarin Sodium (Warfarin Sod 4 Mg Tab) 4 mg PO SuTuThSa@1600 [facility] Stop: 10/23/22 15:59 Last Admin: 09/25/22 15:48 Dose: 4 mg Warfarin Sodium (Warfarin Sod 6 Mg Tab) 6 mg PO MoWeFr@1600 [facility] Stop: 10/24/22 15:59 Last Admin: 09/24/22 16:37 Dose: 6 mg
[2022-09-25] MEDS ORDERED: POLYETHYLENE (MIRALAX) 17 GM PACK PO ONE (17:15)
[2022-09-25] MEDS: traZODone HCL 50 MG TAB PO SCH (20:58)
[2022-09-25] MEDS: DOCUSATE SODIUM/SENNA 50/8.6MG TAB PO SCH (20:58)
[2022-09-25] MEDS: ENOXAPARIN INJ 40 MG/0.4 ML SYR SQ SCH (21:01)
[2022-09-26] MEDS: PANTOprazole 40 MG TAB PO SCH (05:34)
[2022-09-26 07:58] LABS: Hemoglobin 10.1 g/dl (12.0-16.0); Mean Corpuscular Hemoglobin 30.6 pg (25.0-34.0); Mean Corpuscular Hgb Conc 33.7 g/dL (32.0-36.0); Mean Corpuscular Volume 90.9 fL (80.0-100.0); Mean Platelet Volume 11.3 fL (9.4-12.4); Nucleated RBC # (auto) 0.04 K/uL (0-0.12); Nucleated RBC % (auto) 0.4 %; Platelet Count 271 K/uL (130-400); RDW Coefficient of Variation 15.7 % (11.5-14.5); RDW Standard Deviation 51.7 fL (36.4-46.3); White Blood Count 10.09 K/ul (4.8-10.8)
[2022-09-26 08:18] LABS: BUN Creatinine Ratio 27.4 (10-20); Calcium 9.4 mg/dl (8.6-10.3); Creatinine Clr Calc Pharmacy 38.5 ml/min; Est GFR (African American) 51.3 ml/min; Est GFR (Non-African American) 44.3 ml/min; Potassium 4.6 mmol/L (3.5-5.1)
[2022-09-26 08:23] LABS: INR 2.1 (0.9-1.1); Prothrombin Time 21.7 Seconds (9.0-12.0)
--- NOTE | 2022-09-26 08:37 | Orthopedic Progress Note ---
Date of Service September 26, 2022 Assessment & Plan (1) Closed intertrochanteric fracture of left femur: 87 yo F w POD 3 from left cephalomedullary nail for intertrochanteric fracture. Making progress as expected. Slow to make progress due to blood loss and pain, as expected. -PT/OT: Weightbearing and range of motion as tolerated. -Pain control per the primary team -Bridge Lovenox to Coumadin and then discontinue Lovenox for DVT prophylaxis -Daily dressing as needed. Dispo: She will follow-up with orthopedics in 2-3 weeks postop for staple removal and repeat x-rays. Discharge instructions placed. Please contact me via [place] text for any questions. Subjective Reports expected pain. Difficult to use bedside commode. Feels fatigued Review of Systems All systems reviewed & are unremarkable except as noted in HPI & below. Physical Exam LLE: dressing without evidence of drainage. Compartments soft. DNVI. Constitutional WD/WN, vitals as above no acute distress and not intoxicated appearing Respiratory normal respiratory effort; no labored breathing Cardiovascular Extremities: normal capillary refill Results & Data Results & Data Laboratory Results . H & H 09/21/22 09/22/22 09/23/22 Range/Units 14:03 06:11 06:19 Hgb 13.7 12.2 12.1 (12.0-16.0) g/dl Hct 40.4 36.9 L 36.0 L (37.0-47.0) % 09/24/22 09/25/22 09/26/22 Range/Units 07:06 05:44 07:17 Hgb 10.9 L 10.3 L 10.1 L (12.0-16.0) g/dl Hct 32.8 L 30.9 L 30.0 L (37.0-47.0) % Coagulation 09/21/22 09/22/22 09/22/22 Range/Units 14:03 06:11 18:00 INR 2.6 H 3.0 H 1.7 H (0.9-1.1) 09/23/22 09/24/22 09/25/22 Range/Units 06:19 07:06 05:44 INR 1.2 H 1.1 1.3 H (0.9-1.1) 09/26/22 Range/Units 07:17 INR 2.1 H (0.9-1.1) Diagnostic Findings . PG Care Time/CCT Total # of Minutes Spent Total Time Spent with Patient: Total time spent is greater than 50% in coordination of care (as documented) at patient's floor/unit and/or counseling patient: Coding Level of Care Code 93392 Post Operative Follow-Up Diagnoses Closed intertrochanteric fracture of left femur S72.142A
[2022-09-26] MEDS: levETIRAcetam 500 MG TAB PO SCH ×2 (08:43→21:52)
[2022-09-26] MEDS: AMIODARONE 200 MG TAB PO SCH (08:43)
[2022-09-26] MEDS: METOPROLOL SUCC 25MG EXT REL TAB PO SCH (08:44)
[2022-09-26] MEDS: ASPIRIN 81 MG ECTAB PO SCH (08:45)
[2022-09-26] MEDS: ATORVASTATIN 40 MG TAB PO SCH (08:45)
[2022-09-26] MEDS: DULoxetine HCL 60 MG CAP PO SCH (08:45)
[2022-09-26] MEDS: MAGNESIUM OXIDE 400 MG TAB PO SCH (08:45)
[2022-09-26] MEDS: ISOSORBIDE MONO EXTENDED REL 30 MG TABCR PO SCH (08:46)
[2022-09-26] MEDS: oxyCODONE HCL IR 5 MG TAB (IMMEDIATE RELEASE) PO PRN ×2 (08:51→14:20)
--- NOTE | 2022-09-26 09:01 | Hospitalist Progress Note ---
Date of Service September 26, 2022 Assessment & Plan (1) Closed fracture of left hip: (2) Paroxysmal atrial fibrillation: (3) Chronic diastolic heart failure: (4) CAD (coronary artery disease): (5) DM type 2 (diabetes mellitus, type 2): (6) Tachy-amy syndrome: (7) HTN (hypertension): (8) CKD (chronic kidney disease), stage III: (9) CVA (cerebral vascular accident): (10) Seizure-like activity: (11) Urinary tract infection due to Proteus: Plan Patient is 87 y/o F with PMH PAF s/p cardioversion in 2019 anticoagulated on Coumadin, CAD s/p balloon angioplasty RCA in 1996, chronic diastolic heart failure, tachybrady syndrome s/p pacemaker, HTN, dyslipidemia, DM II, CKD III, CVA, seizure, PMR, GERD presented to ER 09/21 with c/o tripping on blanket causing fall and left hip fracture. CT head: No acute intracranial hemorrhage or skull fractures. Scalp swelling is seen in the left frontal soft tissues. CT C-spine: No acute fracture or subluxation CXR: No acute infiltrate Hip x-ray:Comminuted fracture of the left hip Left tibia/fibular x-ray: Soft tissue swelling and degenerative changes without evidence of acute fracture Mechanical fall with closed left hip fracture status post ORIF 09/23 - Surgery was delayed due to elevated INR requiring reversal of Coumadin with vitamin K. -Status post closed reduction and internal fixation of fracture 09/23 by orthopedics -Recommendations noted. Pain management, bowel regimen, PT evaluation- recommended SNF (vs. poss[facility]). CM following. Likely DC to [facility] UTI. Pansensitive. On Rocephin D5/5. Paroxysmal atrial fibrillation:S/p cardioversion 2019. Anticoagulated on Coumadin - Resumed on Coumadin 09/23. INR daily to adjust coumadin - Continue amiodarone, metoprolol succinate Chronic diastolic heart failure: Appears euvolemic, on intermittent Lasix at home. CAD (coronary artery disease): S/p balloon angioplasty to RCA in 1996. Cardiac cath 2011 no progression coronary artery disease; EKG: Paced rhythm - Continue aspirin, atorvastatin, isosorbide, and metoprolol succinate DM type 2 (diabetes mellitus, type 2): A1c: 6.1 on 06/30/2022; Not on medications at home - NovoLog sliding scale per protocol Tachy-amy syndrome: S/p pacemaker in 2019; Paced rhythm on EKG HTN (hypertension): Continue metoprolol succinate CKD (chronic kidney disease), stage III: Cr at baseline. Baseline~1.3; Monitor renal functions, avoid nephrotoxic agents when possible CVA (cerebral vascular accident): Continue aspirin, statin History of seizure disorder: Continue Keppra DVT prophylaxis- sc lovenox with Coumadin until INR therapeutic as per ortho, INR therap. today Disposition- Stable for discharge to rehab. CM following. Admission and Anticipated Discharge Date Admission Date: September 21, 2022 Subjective Patient seen in follow-up of left hip fracture, status postsurgical repair Currently sitting up in the chair, in no acute distress. Reports pain in left hip. Denies any fever, chills, chest pain or shortness of breath. Denies abd. pain. Review of Systems Review of Systems: All systems reviewed & are unremarkable except as noted in Subjective Physical Exam Physical Exam: General: elderly obese F , sitting up in chair, in NAD, on room air Chest: Clear breath sounds bilaterally, no wheezes or crackles CVS: Irregular, normal heart sounds, no murmur Abdomen: Soft, non tender, not distended, normal bowel sounds Neuro: Awake, alert, answers questions appropriately Extremities: moves extremities, +LLE edema, surgical dressings applied over L hip Skin: warm, dry Results & Data Results & Data Vital Signs (Past 12 Hours) Vital Signs Temp Pulse Pulse Resp BP Pulse Ox O2 Del Method 09/26/22 08:00 36.7 C 88 18 148/76 H 94 Room Air 09/26/22 07:24 75 09/26/22 03:04 36.7 C 74 18 159/85 H 97 Room Air 09/25/22 22:12 77 09/25/22 22:54 36.7 C 79 18 140/82 97 Room Air Laboratory Results 09/26/22 09/26/22 09/26/22 Range/Units 08:04 07:17 07:17 WBC (4.8-10.8) K/ul RBC (4.20-5.40) M/uL Hgb (12.0-16.0) g/dl Hct (37.0-47.0) % MCV (80.0-100.0) fL MCH (25.0-34.0) pg MCHC (32.0-36.0) g/dL RDW Std Deviation (36.4-46.3) fL RDW Coeff of Tab (11.5-14.5) % Plt Count (130-400) K/uL MPV (9.4-12.4) fL Absolute Nucleated RBC (0-0.12) K/uL Nucleated RBC % (auto) % PT 21.7 H (9.0-12.0) Seconds INR 2.1 H (0.9-1.1) Sodium 136 (136-145) mmol/L Potassium 4.6 (3.5-5.1) mmol/L Chloride 100 (98-107) mmol/L Carbon Dioxide 31 (21-32) mmol/L Anion Gap 5 (3-11) BUN 31 H (6-23) mg/dl Creatinine 1.13 (0.6-1.2) mg/dl Est Cr Clr Drug Dosing 38.5 ml/min Est GFR ( Amer) 51.3 ml/min Est GFR (Non-Af Amer) 44.3 ml/min BUN/Creatinine Ratio 27.4 H (10-20) Glucose 140 H (70-99(Fasting)) mg/dl POC Glucose 140 H (70-99) mg/dl Calcium 9.4 (8.6-10.3) mg/dl 09/26/22 09/25/22 09/25/22 Range/Units 07:17 20:19 16:38 WBC 10.09 (4.8-10.8) K/ul RBC 3.30 L (4.20-5.40) M/uL Hgb 10.1 L (12.0-16.0) g/dl Hct 30.0 L (37.0-47.0) % MCV 90.9 (80.0-100.0) fL MCH 30.6 (25.0-34.0) pg MCHC 33.7 (32.0-36.0) g/dL RDW Std Deviation 51.7 H (36.4-46.3) fL RDW Coeff of Tab 15.7 H (11.5-14.5) % Plt Count 271 (130-400) K/uL MPV 11.3 (9.4-12.4) fL Absolute Nucleated RBC 0.04 (0-0.12) K/uL Nucleated RBC % (auto) 0.4 % PT (9.0-12.0) Seconds INR (0.9-1.1) Sodium (136-145) mmol/L Potassium (3.5-5.1) mmol/L Chloride (98-107) mmol/L Carbon Dioxide (21-32) mmol/L Anion Gap (3-11) BUN (6-23) mg/dl Creatinine (0.6-1.2) mg/dl Est Cr Clr Drug Dosing ml/min Est GFR ( Amer) ml/min Est GFR (Non-Af Amer) ml/min BUN/Creatinine Ratio (10-20) Glucose (70-99(Fasting)) mg/dl POC Glucose 137 H 117 H (70-99) mg/dl Calcium (8.6-10.3) mg/dl 09/25/22 Range/Units 11:50 WBC (4.8-10.8) K/ul RBC (4.20-5.40) M/uL Hgb (12.0-16.0) g/dl Hct (37.0-47.0) % MCV (80.0-100.0) fL MCH (25.0-34.0) pg MCHC (32.0-36.0) g/dL RDW Std Deviation (36.4-46.3) fL RDW Coeff of Tab (11.5-14.5) % Plt Count (130-400) K/uL MPV (9.4-12.4) fL Absolute Nucleated RBC (0-0.12) K/uL Nucleated RBC % (auto) % PT (9.0-12.0) Seconds INR (0.9-1.1) Sodium (136-145) mmol/L Potassium (3.5-5.1) mmol/L Chloride (98-107) mmol/L Carbon Dioxide (21-32) mmol/L Anion Gap (3-11) BUN (6-23) mg/dl Creatinine (0.6-1.2) mg/dl Est Cr Clr Drug Dosing ml/min Est GFR ( Amer) ml/min Est GFR (Non-Af Amer) ml/min BUN/Creatinine Ratio (10-20) Glucose (70-99(Fasting)) mg/dl POC Glucose 154 H (70-99) mg/dl Calcium (8.6-10.3) mg/dl Medications Administered Current Inpatient Medications Amiodarone HCl (Amiodarone 200 Mg Tab) 100 mg PO QAM [facility] Stop: 10/22/22 08:59 Last Admin: 09/26/22 08:43 Dose: 100 mg Aspirin (Aspirin 81 Mg Ectab) 81 mg PO [id number]@0900 [facility] Stop: 10/24/22 08:59 Last Admin: 09/26/22 08:45 Dose: 81 mg Atorvastatin Calcium (Atorvastatin 40 Mg Tab) 40 mg PO QAM [facility] Stop: 10/22/22 08:59 Last Admin: 09/26/22 08:45 Dose: 40 mg Bisacodyl (Bisacodyl 10 Mg Supp) 10 mg [place] DAILY PRN PRN Reason: Constipation Stop: 10/21/22 16:58 Last Admin: 09/26/22 03:15 Dose: 10 mg Dextrose (Dextrose 50% 50 Ml Syringe) 25 - 50 ml IV UD PRN; Protocol PRN Reason: Hypoglycemia Protocol Stop: 10/21/22 17:09 Duloxetine HCl (Duloxetine Hcl 60 Mg Cap) 60 mg PO [facility] Stop: 10/22/22 08:59 Last Admin: 09/26/22 08:45 Dose: 60 mg Enoxaparin Sodium (Enoxaparin Inj 40 Mg/0.4 Ml Syr) 40 mg SQ Q24H [facility] Stop: 10/23/22 21:59 Last Admin: 09/25/22 21:01 Dose: 40 mg Glucagon (Glucagon For Inj 1 Mg Vial) 1 mg SQ UD PRN; Protocol PRN Reason: Hypoglycemia Protocol Stop: 10/21/22 17:09 Glucose (Glucose 10 Tab/Tube) 4 - 8 tab PO UD PRN; Protocol PRN Reason: Hypoglycemia Treatment Stop: 10/21/22 17:09 Glucose (Glucose 40% Gel 15 Gm Tube) 15 - 30 gm PO UD PRN; Protocol PRN Reason: Hypoglycemia Protocol Stop: 10/21/22 17:09 Ceftriaxone Sodium 2,000 mg/ (Dextrose) 70 mls @ 140 mls/hr IV Q24H [facility] Stop: 09/27/22 12:59 Last Infusion: 09/25/22 12:39 Dose: Infused Insulin Aspart (Insulin Aspart Per Unit Charge) 0 units SC ACHS [facility] Stop: 10/23/22 16:29 Last Admin: 09/25/22 20:59 Dose: Not Given Isosorbide Mononitrate (Isosorbide Henry Extended Rel 30 Mg Tabcr) 30 mg PO QAM [facility] Stop: 10/22/22 08:59 Last Admin: 09/26/22 08:46 Dose: 30 mg Levetiracetam (Levetiracetam 500 Mg Tab) 500 mg PO BID [facility] Stop: 10/21/22 20:59 Last Admin: 09/26/22 08:43 Dose: 500 mg Magnesium Hydroxide (Magnesium Hydroxide Susp 30 Ml Udc) 30 ml PO Q12H PRN PRN Reason: Constipation Stop: 10/21/22 16:42 Last Admin: 09/25/22 08:42 Dose: 30 ml Magnesium Oxide (Magnesium Oxide 400 Mg Tab) 400 mg PO QAM [facility] Stop: 10/22/22 08:59 Last Admin: 09/26/22 08:45 Dose: 400 mg Metoprolol Succinate (Metoprolol Succ 25mg Ext Rel Tab) 12.5 mg PO DAILY [facility] Stop: 10/22/22 08:59 Last Admin: 09/26/22 08:44 Dose: 12.5 mg Miscellaneous (Carbohydrates For Hypoglycemia ) 15 - 30 gm PO UD PRN PRN Reason: Hypoglycemia Protocol Stop: 10/21/22 17:09 Morphine Sulfate (Morphine Sulfate 2 Mg/Ml Carp) 2 mg IV Q3H PRN PRN Reason: Severe Pain (Scale 7, 8, 9,10) Stop: 10/05/22 16:58 Last Admin: 09/25/22 10:00 Dose: 2 mg Naloxone HCl (Naloxone Hcl 0.4 Mg/1 Ml Vial/Carp) 0.1 mg IV UD PRN PRN Reason: Opiate Overdose Stop: 10/21/22 16:58 Ondansetron HCl (Ondansetron Inj 2 Mg/Ml 2 Ml Vial) 4 mg IV Q6H PRN PRN Reason: Nausea Stop: 10/21/22 16:42 Oxycodone HCl (Oxycodone Hcl Ir 5 Mg Tab (Immediate Release)) 5 mg PO Q4H PRN PRN Reason: MODERATE Pain (4,5,6) & Pre PT Stop: 10/05/22 16:58 Last Admin: 09/25/22 15:50 Dose: 5 mg Pantoprazole Sodium ([facility] 40 Mg Tab) [facility]: 10/22/22 06:29 Last Admin: 09/26/22 05:34 Dose: 40 mg Polyethylene Glycol (Polyethylene (Miralax) 17 Gm Pack) 17 gm PO DAILY PRN PRN Reason: Constipation Stop: 10/21/22 16:42 Last Admin: 09/25/22 08:39 Dose: 17 gm Senna/Docusate Sodium (Docusate Sodium/Senna 50/8.6mg Tab) 2 tab PO [facility] Stop: 10/21/22 20:59 Last Admin: 09/25/22 20:58 Dose: 2 tab Trazodone HCl (Trazodone Hcl 50 Mg Tab) 25 mg PO [facility] Stop: 10/21/22 20:59 Last Admin: 09/25/22 20:58 Dose: 25 mg Warfarin Sodium (Warfarin Sod 4 Mg Tab) 4 mg PO SuTuThSa@1600 [facility] Stop: 10/23/22 15:59 Last Admin: 09/25/22 15:48 Dose: 4 mg Warfarin Sodium (Warfarin Sod 6 Mg Tab) 6 mg PO MoWeFr@1600 [facility] Stop: 10/24/22 15:59 Last Admin: 09/24/22 16:37 Dose: 6 mg
[2022-09-26] MEDS: INSULIN ASPART PER UNIT CHARGE SC SCH ×4 (09:21→21:44)
[2022-09-26] MEDS: cefTRIAXone SODIUM 2,000 MG in DEXTROSE 5% 50 ML IV SCH (12:10)
[2022-09-26] MEDS: WARFARIN SOD 6 MG TAB PO SCH (16:29)
[2022-09-26] MEDS: ADVANCED PROBIOTIC 1250 MG CAPSULE PO SCH (17:08)
[2022-09-26] MEDS: traZODone HCL 50 MG TAB PO SCH (21:53)
[2022-09-26] MEDS: DOCUSATE SODIUM/SENNA 50/8.6MG TAB PO SCH (21:53)
[2022-09-27] MEDS: oxyCODONE HCL IR 5 MG TAB (IMMEDIATE RELEASE) PO PRN ×2 (00:52→09:36)
[2022-09-27] MEDS: PANTOprazole 40 MG TAB PO SCH (05:50)
[2022-09-27 06:31] LABS: Hematocrit (blood only) 29.1 % (37.0-47.0); Hemoglobin 9.6 g/dl (12.0-16.0); Mean Corpuscular Hemoglobin 30.6 pg (25.0-34.0); Mean Corpuscular Volume 92.7 fL (80.0-100.0); Mean Platelet Volume 10.8 fL (9.4-12.4); Nucleated RBC # (auto) 0.08 K/uL (0-0.12); Platelet Count 262 K/uL (130-400); RDW Coefficient of Variation 15.9 % (11.5-14.5); RDW Standard Deviation 52.4 fL (36.4-46.3); Red Blood Count 3.14 M/uL (4.20-5.40); White Blood Count 8.29 K/ul (4.8-10.8)
[2022-09-27 06:50] LABS: BUN Creatinine Ratio 29.2 (10-20); Calcium 9.4 mg/dl (8.6-10.3); Creatinine Clr Calc Pharmacy 40.5 ml/min; Est GFR (African American) 55.4 ml/min; Est GFR (Non-African American) 47.8 ml/min; Magnesium 1.9 mg/dl (1.7-2.4); Phosphorus 2.5 mg/dl (2.5-4.9); Potassium 4.5 mmol/L (3.5-5.1)
[2022-09-27 07:02] LABS: INR 2.7 (0.9-1.1); Prothrombin Time 27.2 Seconds (9.0-12.0)
[2022-09-27] MEDS: ATORVASTATIN 40 MG TAB PO SCH (08:00)
[2022-09-27] MEDS: levETIRAcetam 500 MG TAB PO SCH (08:01)
[2022-09-27] MEDS: ADVANCED PROBIOTIC 1250 MG CAPSULE PO SCH (08:02)
[2022-09-27] MEDS: METOPROLOL SUCC 25MG EXT REL TAB PO SCH (08:03)
[2022-09-27] MEDS: DULoxetine HCL 60 MG CAP PO SCH (08:05)
[2022-09-27] MEDS: ISOSORBIDE MONO EXTENDED REL 30 MG TABCR PO SCH (08:05)
[2022-09-27] MEDS: AMIODARONE 200 MG TAB PO SCH (08:06)
[2022-09-27] MEDS: MAGNESIUM OXIDE 400 MG TAB PO SCH (08:07)
[2022-09-27] MEDS: INSULIN ASPART PER UNIT CHARGE SC SCH ×2 (09:35→13:24)
[2022-09-27] MEDS ORDERED: ACETAMINOPHEN 325 MG TAB PO PRN (09:38)
--- NOTE | 2022-09-27 09:57 | Discharge Summary ---
Date of Service September 27, 2022 Admission HPI Per Admitting Provider Patient is 87 y/o F with PMH PAF s/p cardioversion in 2019 anticoagulated on Coumadin, CAD s/p balloon angioplasty RCA in 1996, chronic diastolic heart failure, tachybrady syndrome s/p pacemaker, HTN, dyslipidemia, DM II, CKD III, CVA, seizure, PMR, GERD presented to ER with c/o fall and left hip pain today. Patient states tripped over blanket when getting up out of chair and fell onto left side/left buttock. Had immediate pain to left hip. Patient unsure if hit her head. She is unsure if had syncope, LOC. She denies dizziness, chest pain, shortness of breath. Patient reports her son was in house and heard patient fall and was able to get to patient fairly quickly. Patient unable to stand, she was transported to ER via EMS. Uses cane and walker at home. Reports last fall over 1 year ago. Last BM 2 days ago. Patient with limited activity at baseline. Reports chronic SOB when walking around the house. Denies fever/chills, diaphoresis, N/V/D/C, CAI, dizziness, vision changes, neck pain, CP, SOB, palpitations, cough, rhinorrhea, abdominal pain, paresthesias, extremity edema, rashes, urinary symptoms. In ER found to have left hip fracture. Admission Exam Per Admitting Provider General: Obese elderly woman in no distress Eyes: PERRL, conjunctivae normal, not pale, anicteric sclerae, EOM intact bilaterally ENMT: External ear and nose normal, oropharynx normal Respiratory: Normal respiratory effort, no respiratory distress, lungs clear to auscultation, no crackles and no wheezes Cardiovascular: RRR S1 S2 Gastrointestinal (Abdomen): Abdomen is not distended, soft, non-tender to palpation, no guarding, no palpable hepatosplenomegaly, normal bowel sounds Musculoskeletal: Tenderness over left hip. Trace pedal edema Genitourinary: [place] in situ Neurologic: Alert and oriented x 3, No focal weakness, sensation grossly intact Psychiatric: Euthymic affect Principal Diagnosis Left hip fracture s/p surgical repair UTI Discharge Exam General: elderly obese F, in NAD, on room air Chest: Clear breath sounds bilaterally, no wheezes or crackles CVS: Irregular, normal heart sounds, no murmur Abdomen: Soft, non tender, not distended, normal bowel sounds Neuro: Awake, alert, answers questions appropriately Extremities: moves extremities, +LLE edema, surgical dressings applied over L hip Skin: warm, dry Discharge Data Allergies Allergy/AdvReac Type Severity Reaction Status Date / Time metoclopramide Allergy Intermediate neuro Verified 06/28/22 16:58 complications adhesive Allergy Unknown ALLERGY TO Verified 06/28/22 16:58 TAPE naproxen [From Naprosyn] AdvReac Intermediate CAN'T Verified 06/28/22 16:58 TOLERATE, DEPRESSED, EMOTIONAL doxycycline AdvReac Mild n/v Verified 06/28/22 16:58 Procedures Performed Operation Date: 09/23/22 07:30 Actual Procedures p Left hip fracture closed reduction and internal fixation(Left) - Noel Burgess MD Ordered Studies 09/21/22 15:54 CT cervical spine wo con Stat FINDINGS: Alignment of the cervical spine is anatomic. Vertebral body heights are maintained. No acute cervical spine fracture or subluxation is present. There is no prevertebral edema. Facet joints are intact. Moderate multilevel degenerative disc disease and facet arthrosis is present. Left subclavian pacer is incidentally noted. IMPRESSION: No acute cervical spine fracture or subluxation. CT head/brain wo con Stat Findings: Areas of decreased attenuation are present in the periventricular and subcortical white matter bilaterally consistent with small vessel ischemic disease. Generalized cerebral atrophy with commensurate enlargement of the ventricles, sulci, and cisterns is also present. There is no acute intracranial hemorrhage or evidence of acute territorial infarction. No shift of the midline structures, mass effect, or extra-axial abnormalities are shown. Atherosclerotic calcifications are present in the intracranial segments of the internal carotid arteries. Imaged portions of the paranasal sinuses and mastoid air cells are clear. The orbits appear normal. There are no acute fractures of the calvaria. Scalp swelling is seen in the left frontal soft tissues. Impression: No acute intracranial hemorrhage or skull fractures. Scalp swelling is seen in the left frontal soft tissues. 09/23/22 FL hip LT 2-3V Routine Hospital Course (1) Closed fracture of left hip: (2) Paroxysmal atrial fibrillation: (3) Chronic diastolic heart failure: (4) CAD (coronary artery disease): (5) DM type 2 (diabetes mellitus, type 2): (6) Tachy-amy syndrome: (7) HTN (hypertension): (8) CKD (chronic kidney disease), stage III: (9) CVA (cerebral vascular accident): (10) Seizure-like activity: (11) Urinary tract infection due to Proteus: Plan Patient is 87 y/o F with PMH PAF s/p cardioversion in 2019 anticoagulated on Coumadin, CAD s/p balloon angioplasty RCA in 1996, chronic diastolic heart failure, tachybrady syndrome s/p pacemaker, HTN, dyslipidemia, DM II, CKD III, CVA, seizure, PMR, GERD presented to ER 09/21 with c/o tripping on blanket causing fall and left hip fracture. CT head: No acute intracranial hemorrhage or skull fractures. Scalp swelling is seen in the left frontal soft tissues. CT C-spine: No acute fracture or subluxation CXR: No acute infiltrate Hip x-ray:Comminuted fracture of the left hip Left tibia/fibular x-ray: Soft tissue swelling and degenerative changes without evidence of acute fracture Mechanical fall with closed left hip fracture status post ORIF 09/23 - Surgery was delayed due to elevated INR requiring reversal of Coumadin with vitamin K. -Status post closed reduction and internal fixation of fracture 09/23 by orthopedics -Recommendations noted. Pain management, bowel regimen, PT evaluation- plan to DC to [facility] UTI. Pansensitive. Finished Abx treatment w/ Rocephin. Paroxysmal atrial fibrillation:S/p cardioversion 2019. Anticoagulated on Coumadin - Resumed on Coumadin 09/23. INR daily to adjust coumadin while inpt, current INR 2.7 - recommend frequent check of INR after DC, recommend 4 mg warfarin daily for now - adjust as needed - Continue amiodarone, metoprolol succinate Chronic diastolic heart failure: Appears euvolemic, on intermittent Lasix at home. CAD (coronary artery disease): S/p balloon angioplasty to RCA in 1996. Cardiac cath 2011 no progression coronary artery disease; EKG: Paced rhythm - Continue aspirin, atorvastatin, isosorbide, and metoprolol succinate DM type 2 (diabetes mellitus, type 2): A1c: 6.1 on 06/30/2022; Not on medications at home - NovoLog sliding scale per protocol Tachy-amy syndrome: S/p pacemaker in 2019; Paced rhythm on EKG HTN (hypertension): Continue metoprolol succinate CKD (chronic kidney disease), stage III: Cr at baseline. Baseline~1.3; Monitor renal functions, avoid nephrotoxic agents when possible. Current Cr 1 CVA (cerebral vascular accident): Continue aspirin, statin History of seizure disorder: Continue Keppra DVT prophylaxis- Coumadin, INR therapeutic Disposition- Plan to DC to [facility] Total Time Total Time Spent Total Time Spent (In Minutes): 40 Discharge Plan Discharge Items Patient Disposition: Transfer [facility] Fac Reason For Visit: HIP FRACTURE Discharge Diagnosis: Left hip fracture s/p surgical repair UTI Activity: Per Instructions section Non-emergency contact: Primary Care Provider and Surgeon Call non-emergency contact if: you have any medication questions and your symptoms worsen Follow-up/Referrals: Noel Burgess MD [Surgeon] - (Lorie removed at 2-3 weeks after Surgery. Please call for a followup appointment.) [facility] [Non-Staff] - Diet: Carb Consistent or DM2 and Heart Healthy Addtl Attending Provider Instructions: Orthopaedic Instructions after Hip Fracture Surgery: Please keep your wound clean and dry. Do not remove any of the lorie. [place] were removed at your follow-up appointment with orthopedic surgery. Please continue daily dressing changes until your follow-up appointment. If there is no drainage onto the dressing for total of 24 hours, you may shower after 5 days from surgery. Allow soap and water to run over the incision, no scrubbing, and pat dry. Do not submerse (sitting in bathtub, hot tub, jacuzzi, pool, etc) the wound for at least 3 weeks. You may bear weight on your lower extremities as tolerated. Please use the walker or as instructed by physical therapy. For pain control please use Tylenol as needed. You may also have a stronger pain medication prescribed to you at discharge. You can also apply ice to the surgical site. Resume your previous Coumadin medication, which should also protect against dangerous blood clot development (DVT). Orthopedic clinic follow-up should be in 2-3 weeks after surgery for repeat x- ray. Placitas can be removed at the orthopedic follow-up. If necessary, lorie can be removed by a nurse at home or at a nursing facility upon our order. Please contact the clinic. Addtl Tsa Screener Provider Instructions: Please read instructions per orthopedic surgery, as above. For pain, you can take Tylenol up to 3000 mg a day. For more severe pain, you can take oxycodone, as prescribed. Recommend taking probiotics for next several days. For now recommend to continue with warfarin 4 mg daily. Check INR frequently, for now, about every other day to make sure that INR is not supratherapeutic. Adjust warfarin as needed. Pending Studies at Discharge: No Stand-Alone Forms: My [facility] Skilled Items Patient informed of condition?: Yes DNR: No Discharge Level of Care: Skilled Communicable Disease: No Discharge Prognosis: Stable Lines: None Urinary Catheter: No Medications and DC Order Prescriptions: New acetaminophen 325 mg Tablet 650 mg PO Q4H PRN (Reason: pain) Qty: 20 0RF oxycodone 5 mg Tablet 5 mg PO Q4H PRN (Reason: pain) Qty: 7 0RF Advanced Probiotic 625 mg (10 billion cell) Capsule 2 cap PO DAILY Qty: 10 0RF Continued atorvastatin 40 mg tablet 40 mg PO QAM isosorbide mononitrate 30 mg tablet extended release 24 hr 30 mg PO QAM aspirin 81 mg Tablet,Delayed Release (Dr/Ec) 81 mg PO [id number] Rx Instructions: TAKE THIS MEDICATION EVERY SATURDAY,SATURDAY AND SATURDAY omeprazole 20 mg capsule,delayed release(DR/EC) 20 mg PO DAILYBB albuterol sulfate [Ventolin HFA] 90 mcg/actuation HFA aerosol inhaler 2 puff inhalation QID PRN (Reason: Shortness Of Breath) potassium chloride [Klor-Con M10] 10 mEq tablet,ER particles/crystals 10 meq PO UD Rx Instructions: TAKE WHEN TAKING FUROSEMIDE, TAKE AN ADDITIONAL TABLET WHEN TAKING ADDITIONAL FUROSEMIDE diclofenac sodium 1 % gel 4 g TOPICAL QID Rx Instructions: APPLY DIRECTED TO RIGHT HIP magnesium oxide 400 mg magnesium Tablet 400 mg PO QAM amiodarone 200 mg tablet 100 mg PO QAM duloxetine 60 mg capsule,delayed release(DR/EC) 60 mg PO QAM docusate sodium 100 mg Capsule 200 mg PO DAILY furosemide 20 mg Tablet 20 mg PO Q72H Qty: 30 0RF trazodone 50 mg tablet 25 mg PO HS levetiracetam 500 mg tablet 500 mg PO BID acetaminophen [Tylenol Extra Strength] 500 mg Tablet 1,000 mg PO Q6H PRN (Reason: Pain) warfarin 4 mg Tablet 4 mg PO UD Rx Instructions: 6mg on Sat, Sat, Fri. 4mg sun, , dick, sat oxycodone-acetaminophen 10-325 mg Tablet 1 tab PO Q6H PRN (Reason: Severe Pain (Scale Score 7-10)) biotin 10,000 mcg Capsule 10,000 mcg PO DAILY metoprolol succinate 25 mg tablet extended release 24 hr 12.5 mg PO DAILY Centrum 18-400 mg-mcg Tablet 1 tab PO DAILY Discharge Orders: Discharge Order (Routine); Ordered 09/27/22 Ordered By: Ludin Mooney/Other Patient Handouts: Managing Type 2 Diabetes Admission Data Admit Date/Time: 09/21/22 15:43 Attending Provider: Ludin Hall Admit Provider: Carmen Lemon I. Primary Care Provider: Steve Hooker Other Providers: [facility] ; Moon Portillo [facility] ; [facility] ; Butch Olvera
== END 2022-09-27 14:00 | DRG 481 ==
LOC: ED 13:25 → SUATTDRO 15:43 → 2N 15:43

== ENCOUNTER 2023-06-26 17:50 | Inpatient (IN) ==
[2023-06-26] MEDS ORDERED: SODIUM CHLORIDE 0.9% 1,000 ML IV SCH (18:15)
--- NOTE | 2023-06-26 18:16 | Emergency Department Note ---
Impression & Plan Acute confusion, HARJEET (acute kidney injury), Acute UTI, Dehydration ED Provider Note NAME: BRUNO BAUTISTA AGE: 88 SEX: F : 1935 ARRIVES VIA: Ambulance INFORMANT: [Patient][nursing, ems] ED PROVIDER(S): [Patrick Burr MD] CHIEF COMPLAINT: Altered mental status HISTORY OF PRESENT ILLNESS: The patient is an 88-year-old female who presents with a few days of increasing confusion and some complaints of burning with urination. The patient has a history of confusion with UTI and the family was concerned that there may be infection. The patient complains of allover body pain but this is chronic. She denies fever or cough. No fever reported by EMS. No reported vomiting. The patient is a poor historian, no further history obtainable at this point. PMHx/PSHx/Social Hx: See Below PHYSICAL EXAM: GENERAL: Patient is in no acute distress. HEENT: No acute trauma, normocephalic atraumatic, mucous membranes dry, no nasal congestion. NECK: No stridor, no adenopathy, no meningismus, trachea is midline. LUNGS: Clear to auscultation bilaterally, no wheeze, no rhonchi, breath sounds equal. HEART: Without murmurs gallops or rubs, rhythm seems regular with an occasional extra beat. ABDOMEN: Soft, nontender, no peritonitis. EXTREMITIES: No cyanosis, full range of motion of all the joints without pain or difficulty. Mild bilateral pedal edema with some chronic skin change. NEUROLOGIC: Awake, follows simple commands, no speech slur. She does seem sleepy. No obvious extremity deficit. SKIN: No jaundice, no diaphoresis. DIFFERENTIAL DIAGNOSIS: Dehydration, renal or liver failure, UTI, sepsis or bacteremia, stroke or TIA, among others. EMERGENCY DEPARTMENT PROCEDURES: MEDICAL DECISION MAKING: There is no leukocytosis or concerning anemia. There is a normal platelet count. INR is elevated at 2.4, consistent with her warfarin use. There was evidence for some acute kidney injury with a creatinine of 1.55. No electrolyte abnormality in need of emergent correction. Lactic acid level was not elevated making severe sepsis less likely. There were some very subtle liver enzyme elevations. Ammonia level was not elevated. The patient appeared to be in a euthyroid state. ECG shows a ventricular pacemaker, no obvious ischemia. Cardiac enzyme testing x 1 is not consistent with acute cardiac injury. Urinalysis does show findings of infection. COVID, influenza and RSV test were negative. Chest film does not show mediastinal widening, pneumonia or pneumothorax. Brain CT shows no acute bleed or mass effect. Patient received IV saline, 1 L. She was given IV ceftriaxone as antibiotic coverage. Patient presents with some confusion. She appears to be dehydrated, she has a UTI. She has had similar presentations in the past secondary to urinary infections. Given her confusion and findings of infection, hospitalization is indicated. I spoke with the patient and her son. I spoke with case management and the on- call hospitalist. Prior/Outside records/notes reviewed: Today's EMS notes. ECG per my interpretation: Indication was weakness. The ECG shows a ventricular pacemaker with a rate of 68. No concerning ST elevation, no PVCs. The QTc was 504. Continuous Cardiac Monitoring per my interpretation: An order was placed for continuous cardiac monitoring. The monitor shows a rate of 77 with ventricular pacing. Imaging/x-ray results per my interpretation: Chest x-ray does not show pneumonia, CHF or mediastinal widening. Chronic Medical/Social conditions affecting care: Advanced age. Care/Management discussed with: Case management, the on-call hospitalist. Level of care consideration(s): After review of the information above and other included data: --I believe the patient requires escalation of care to admission DISPOSITION: Admission Past Med/Surg History Medical History Chronic diastolic heart failure Polymyalgia rheumatica Diastolic CHF History of nephrolithiasis Chronic back pain GERD (gastroesophageal reflux disease) CKD stage 3 due to type 1 diabetes mellitus DM type 2 (diabetes mellitus, type 2) Dyslipidemia CAD (coronary artery disease) "1996 - PTCA to RCA 2011 - cath that showed patent RCA and no further disease" Surgical History History of cystoscopy History of lithotripsy History of PTCA S/P appendectomy S/P cholecystectomy S/P hysterectomy Family History Aunt Breast cancer Mother Diabetes Coronary heart disease Father Silicosis Social History Smoking Status: Former smoker Tobacco Type: Cigarettes packs per day: 0.5; Second Hand Exposure: No; Do You Dip or Chew Tobacco: No; Hx Alcohol Use: No Hx Substance Use: No Preferred Language: Monegasque Communication Ability: Effective Visual Impairment: Partially Limited Bridge Saw Operator Required: No Beliefs That Will Affect Care: None marital status: / Current Living Situation: Alone Current Living Situation Comment: daughter/ son has been staying with her for past month. Feels Safe at Home: Yes Assistive Devices: Cane, Denture - Upper, Denture - Lower, Glasses and Walker Allergies Allergies Allergy/AdvReac Type Severity Reaction Status Date / Time metoclopramide Allergy Intermediate neuro Verified 06/26/23 18:42 complications adhesive Allergy Unknown ALLERGY TO Verified 06/26/23 18:42 TAPE doxycycline AdvReac Intermediate NAUSEA/VOMI Verified 06/26/23 18:42 TING naproxen [From Naprosyn] AdvReac Intermediate CAN'T Verified 06/26/23 18:42 TOLERATE, DEPRESSED, EMOTIONAL Home Meds Home Medications Medication Instructions Recorded Confirmed albuterol sulfate 90 mcg/actuation 2 puff inhalation QID PRN 08/20/19 06/26/23 aerosol inhaler (Ventolin HFA) Shortness Of Breath aspirin 81 mg tablet,delayed 81 mg PO 3XWK 08/20/19 06/26/23 release atorvastatin 40 mg tablet 40 mg PO HS 08/20/19 06/26/23 diclofenac sodium 1 % topical gel 4 g topical QID 08/20/19 06/26/23 isosorbide mononitrate 30 mg 30 mg PO QAM 08/20/19 06/26/23 tablet,extended release 24 hr magnesium oxide 400 mg PO QAM 08/20/19 06/26/23 omeprazole 20 mg capsule,delayed 20 mg PO DAILYBB 08/20/19 06/26/23 release potassium chloride 10 mEq 10 meq PO UD 08/20/19 06/26/23 tablet,extended release(part/cryst) (Klor-Con M) acetaminophen 500 mg tablet 1,000 mg PO Q6H PRN Pain 06/20/21 06/26/23 (Tylenol Extra Strength) biotin 10,000 mcg capsule 10,000 mcg PO DAILY 06/20/21 06/26/23 levetiracetam 500 mg tablet 500 mg PO BID 06/20/21 06/26/23 metoprolol succinate 25 mg 6.25 mg PO DAILY 06/20/21 06/26/23 tablet,extended release 24 hr multivitamin-ferrous 1 tab PO HS 06/20/21 06/26/23 fumarate-folic acid 18 mg-400 mcg tablet (Centrum) oxycodone-acetaminophen 10 mg-325 1 tab PO Q6H PRN Severe Pain 06/20/21 06/26/23 mg tablet (Scale Score 7-10) trazodone 50 mg tablet 25 mg PO HS 06/20/21 06/26/23 warfarin 4 mg tablet 4 - 6 mg PO DIRECTED 06/20/21 06/26/23 docusate sodium 100 mg capsule 200 mg PO BID 06/28/22 06/26/23 duloxetine 60 mg capsule,delayed 60 mg PO QAM 06/28/22 06/26/23 release L.acidop,casei,lactis,rham-B.lact,trisha 1 cap PO HS 06/26/23 06/26/23 625 mg (10 billion cell) capsule (Advanced Probiotic) cetirizine 10 mg tablet (Zyrtec) 10 mg PO HS 06/26/23 06/26/23 cholecalciferol (vitamin D3) 50 50 mcg PO DAILY 06/26/23 06/26/23 mcg (2,000 unit) capsule (Vitamin D3) polyethylene glycol 3350 17 17 g PO DAILY PRN Constipation 06/26/23 06/26/23 gram/dose oral powder (Miralax) simethicone 80 mg chewable tablet 80 mg PO Q8H PRN GAS DISCOMFORT 06/26/23 06/26/23 torsemide 20 mg tablet 20 mg PO BID 06/26/23 06/26/23 Results & Data (ED) Vital Signs Vital Signs - 24 hr 06/26/23 17:56 06/26/23 17:57 06/26/23 17:57 Temperature Temperature Source Pulse Rate Pulse Rate from SpO2 Sensor Respiratory Rate Respiratory Depth Blood Pressure 129/90 Blood Pressure Mean 95 Pulse Oximetry Oxygen Delivery Method Room Air Room Air Sepsis Recent Fever Within 48 Hours Sepsis New/Unexplained Change in Mental Status Sepsis Action Taken by Nursing 06/26/23 17:57 06/26/23 17:58 06/26/23 18:00 Temperature Temperature Source Pulse Rate 77 74 Pulse Rate from SpO2 Sensor Respiratory Rate 15 Respiratory Depth Blood Pressure 133/87 Blood Pressure Mean 97 Pulse Oximetry Oxygen Delivery Method Sepsis Recent Fever Within 48 Hours Sepsis New/Unexplained Change in Mental Status Sepsis Action Taken by Nursing 06/26/23 18:00 06/26/23 18:03 06/26/23 18:10 Temperature 36.9 C Temperature Source Oral Pulse Rate 68 77 77 Pulse Rate from SpO2 Sensor 78 Respiratory Rate 16 12 21 Respiratory Depth Normal Blood Pressure 129/90 Blood Pressure Mean 103 Pulse Oximetry 93 96 Oxygen Delivery Method Room Air Sepsis Recent Fever Within 48 Hours No Sepsis New/Unexplained Change in Mental Status No Sepsis Action Taken by Nursing No Action Required 06/26/23 18:12 06/26/23 18:20 06/26/23 18:30 Temperature Temperature Source Pulse Rate 73 77 Pulse Rate from SpO2 Sensor 76 Respiratory Rate 15 20 Respiratory Depth Blood Pressure Blood Pressure Mean Pulse Oximetry 93 95 Oxygen Delivery Method Room Air Sepsis Recent Fever Within 48 Hours Sepsis New/Unexplained Change in Mental Status Sepsis Action Taken by Nursing 06/26/23 18:40 06/26/23 18:42 06/26/23 18:42 Temperature Temperature Source Pulse Rate 77 75 Pulse Rate from SpO2 Sensor Respiratory Rate 14 22 Respiratory Depth Blood Pressure 147/96 H Blood Pressure Mean 109 Pulse Oximetry Oxygen Delivery Method Sepsis Recent Fever Within 48 Hours Sepsis New/Unexplained Change in Mental Status Sepsis Action Taken by Nursing 06/26/23 18:50 06/26/23 19:10 06/26/23 19:11 Temperature Temperature Source Pulse Rate 64 76 Pulse Rate from SpO2 Sensor Respiratory Rate 22 12 Respiratory Depth Blood Pressure 149/87 H Blood Pressure Mean 103 Pulse Oximetry Oxygen Delivery Method Sepsis Recent Fever Within 48 Hours Sepsis New/Unexplained Change in Mental Status Sepsis Action Taken by Nursing 06/26/23 19:11 06/26/23 19:20 06/26/23 19:30 Temperature Temperature Source Pulse Rate 85 76 78 Pulse Rate from SpO2 Sensor 80 75 81 Respiratory Rate 17 14 14 Respiratory Depth Blood Pressure Blood Pressure Mean Pulse Oximetry 91 95 96 Oxygen Delivery Method Sepsis Recent Fever Within 48 Hours Sepsis New/Unexplained Change in Mental Status Sepsis Action Taken by Nursing 06/26/23 19:40 06/26/23 19:48 06/26/23 19:48 Temperature Temperature Source Pulse Rate 74 75 Pulse Rate from SpO2 Sensor 75 77 Respiratory Rate 22 16 Respiratory Depth Blood Pressure 132/94 Blood Pressure Mean 110 Pulse Oximetry 96 97 Oxygen Delivery Method Sepsis Recent Fever Within 48 Hours Sepsis New/Unexplained Change in Mental Status Sepsis Action Taken by Nursing 06/26/23 19:50 06/26/23 20:00 06/26/23 20:00 Temperature Temperature Source Pulse Rate 79 73 Pulse Rate from SpO2 Sensor 76 Respiratory Rate 19 15 Respiratory Depth Blood Pressure 146/96 H Blood Pressure Mean 109 Pulse Oximetry 96 76 L Oxygen Delivery Method Room Air Sepsis Recent Fever Within 48 Hours Sepsis New/Unexplained Change in Mental Status Sepsis Action Taken by Nursing 06/26/23 20:10 06/26/23 20:20 06/26/23 20:30 Temperature Temperature Source Pulse Rate 79 78 73 Pulse Rate from SpO2 Sensor 75 76 77 Respiratory Rate 20 18 18 Respiratory Depth Blood Pressure Blood Pressure Mean Pulse Oximetry 95 92 89 L Oxygen Delivery Method Sepsis Recent Fever Within 48 Hours Sepsis New/Unexplained Change in Mental Status Sepsis Action Taken by Nursing 06/26/23 20:40 06/26/23 20:50 06/26/23 21:00 Temperature Temperature Source Pulse Rate 78 114 H 95 H Pulse Rate from SpO2 Sensor 77 77 Respiratory Rate 17 12 18 Respiratory Depth Blood Pressure Blood Pressure Mean Pulse Oximetry 93 95 Oxygen Delivery Method Sepsis Recent Fever Within 48 Hours Sepsis New/Unexplained Change in Mental Status Sepsis Action Taken by Nursing 06/26/23 21:00 06/26/23 21:10 06/26/23 21:20 Temperature Temperature Source Pulse Rate 80 71 Pulse Rate from SpO2 Sensor 80 80 Respiratory Rate 16 16 Respiratory Depth Blood Pressure 127/81 Blood Pressure Mean 99 Pulse Oximetry 97 96 Oxygen Delivery Method Room Air Sepsis Recent Fever Within 48 Hours Sepsis New/Unexplained Change in Mental Status Sepsis Action Taken by Nursing 06/26/23 21:30 06/26/23 21:40 06/26/23 21:58 Temperature Temperature Source Pulse Rate 79 75 81 Pulse Rate from SpO2 Sensor Respiratory Rate 21 16 15 Respiratory Depth Blood Pressure Blood Pressure Mean Pulse Oximetry Oxygen Delivery Method Sepsis Recent Fever Within 48 Hours Sepsis New/Unexplained Change in Mental Status Sepsis Action Taken by Nursing 06/26/23 22:00 06/26/23 22:10 06/26/23 22:20 Temperature Temperature Source Pulse Rate 82 Pulse Rate from SpO2 Sensor Respiratory Rate 10 L 16 16 Respiratory Depth Blood Pressure Blood Pressure Mean Pulse Oximetry Oxygen Delivery Method Sepsis Recent Fever Within 48 Hours Sepsis New/Unexplained Change in Mental Status Sepsis Action Taken by Nursing 06/26/23 22:30 06/26/23 22:40 06/26/23 22:50 Temperature Temperature Source Pulse Rate 81 75 Pulse Rate from SpO2 Sensor Respiratory Rate 14 21 14 Respiratory Depth Blood Pressure Blood Pressure Mean Pulse Oximetry Oxygen Delivery Method Sepsis Recent Fever Within 48 Hours Sepsis New/Unexplained Change in Mental Status Sepsis Action Taken by Nursing 06/26/23 22:56 06/26/23 22:56 Temperature Temperature Source Pulse Rate 77 Pulse Rate from SpO2 Sensor Respiratory Rate 15 Respiratory Depth Blood Pressure 131/79 Blood Pressure Mean 89 Pulse Oximetry 97 Oxygen Delivery Method Room Air Sepsis Recent Fever Within 48 Hours Sepsis New/Unexplained Change in Mental Status Sepsis Action Taken by [facility] Medications Current Medication List: was personally reviewed by me Laboratory Data Attestation: I reviewed the patient's lab results. 06/26/23 18:06 06/26/23 18:40 Lab Results 06/26/23 06/26/23 06/26/23 Range/Units 18:06 18:10 18:13 WBC 7.07 (4.8-10.8) K/ul RBC 4.86 (4.20-5.40) M/uL Hgb 15.2 (12.0-16.0) g/dl Hct 45.9 (37.0-47.0) % MCV 94.4 (80.0-100.0) fL MCH 31.3 (25.0-34.0) pg MCHC 33.1 (32.0-36.0) g/dL RDW Std Deviation 48.4 H (36.4-46.3) fL RDW Coeff of Tab 14.0 (11.5-14.5) % Plt Count 224 (130-400) K/uL MPV 10.6 (9.4-12.4) fL Immature Gran % (Auto) 0.3 % Neut % (Auto) 55.0 % Lymph % (Auto) 33.2 % [place] % (Auto) 7.4 % Eos % (Auto) 3.7 % Baso % (Auto) 0.4 % Neut # (Auto) 3.89 (1.40-6.50) K/uL Lymph # (Auto) 2.35 (1.20-3.40) K/uL [place] # (Auto) 0.52 (0.11-0.59) K/uL Eos # (Auto) 0.26 (0.00-0.50) K/uL Baso # (Auto) 0.03 (0.00-0.20) K/uL Immature Gran # (Auto) 0.02 (0.01-0.20) K/uL PT (9.0-12.0) Seconds INR (0.9-1.1) APTT (21-31) Seconds PTT Ratio Sodium Cancelled Potassium Cancelled Chloride Cancelled Carbon Dioxide Cancelled Anion Gap Cancelled BUN Cancelled Creatinine Cancelled Est Cr Clr Drug Dosing Cancelled Est GFR ( Amer) Cancelled Est GFR (Non-Af Amer) Cancelled BUN/Creatinine Ratio Cancelled Glucose Cancelled Lactate (0.4-2.0) mmol/L Calcium Cancelled Magnesium Cancelled Total Bilirubin Cancelled AST Cancelled ALT Cancelled Alkaline Phosphatase Cancelled Ammonia (18-72) umol/L Troponin I High Sens 6.3 (0-14) pg/ml Total Protein Cancelled Albumin Cancelled Globulin Cancelled Albumin/Globulin Ratio Cancelled TSH 1.903 (0.300-4.500) uIu/ml Urine Color Yellow Urine Appearance Clear (Clear) Urine pH 7.5 (4.5-7.5) Ur Specific [place] 1.008 (1.000-1.030) Urine Protein Negative (Negative) Urine Glucose (UA) Negative (Negative) Urine Ketones Negative (Negative) Urine Blood Negative (Negative) Urine Nitrite Negative (Negative) Urine Bilirubin Negative (Negative) Urine Urobilinogen Negative (Negative) Ur Leukocyte Esterase 2+ H (Negative) Urine WBC (Auto) >30 H (0-5) /hpf Urine RBC (Auto) 0-4 (0-4) /hpf U Hyaline Cast (Auto) 5-10 H (0-5) /lpf U Epithel Cells (Auto) 0-5 (0-5) /lpf Urine Bacteria (Auto) Negative (Negative) SARS-CoV-2 (PCR) NEGATIVE (Negative) Influenza Type A (PCR) Negative (Neg) Influenza Type B (PCR) Negative (Neg) RSV (RT-PCR) Negative (Neg) 06/26/23 Range/Units 18:40 WBC (4.8-10.8) K/ul RBC (4.20-5.40) M/uL Hgb (12.0-16.0) g/dl Hct (37.0-47.0) % MCV (80.0-100.0) fL MCH (25.0-34.0) pg MCHC (32.0-36.0) g/dL RDW Std Deviation (36.4-46.3) fL RDW Coeff of Tab (11.5-14.5) % Plt Count (130-400) K/uL MPV (9.4-12.4) fL Immature Gran % (Auto) % Neut % (Auto) % Lymph % (Auto) % [place] % (Auto) % Eos % (Auto) % Baso % (Auto) % Neut # (Auto) (1.40-6.50) K/uL Lymph # (Auto) (1.20-3.40) K/uL [place] # (Auto) (0.11-0.59) K/uL Eos # (Auto) (0.00-0.50) K/uL Baso # (Auto) (0.00-0.20) K/uL Immature Gran # (Auto) (0.01-0.20) K/uL PT 25.2 H (9.0-12.0) Seconds INR 2.4 H (0.9-1.1) APTT 37 H (21-31) Seconds PTT Ratio 1.3 Sodium 141 Potassium 3.8 Chloride 101 Carbon Dioxide 33 H Anion Gap 7 BUN 29 H Creatinine 1.55 H Est Cr Clr Drug Dosing 25.5 Est GFR ( Amer) 34.8 Est GFR (Non-Af Amer) 30.0 BUN/Creatinine Ratio 18.7 Glucose 112 H Lactate 1.4 (0.4-2.0) mmol/L Calcium 9.6 Magnesium 2.1 Total Bilirubin 0.4 AST 49 H ALT 21 Alkaline Phosphatase 120 H Ammonia 26.0 (18-72) umol/L Troponin I High Sens (0-14) pg/ml Total Protein 6.4 Albumin 3.7 Globulin 2.7 Albumin/Globulin Ratio 1.4 TSH (0.300-4.500) uIu/ml Urine Color Urine Appearance (Clear) Urine pH (4.5-7.5) Ur Specific [place] (1.000-1.030) Urine Protein (Negative) Urine Glucose (UA) (Negative) Urine Ketones (Negative) Urine Blood (Negative) Urine Nitrite (Negative) Urine Bilirubin (Negative) Urine Urobilinogen (Negative) Ur Leukocyte Esterase (Negative) Urine WBC (Auto) (0-5) /hpf Urine RBC (Auto) (0-4) /hpf U Hyaline Cast (Auto) (0-5) /lpf U Epithel Cells (Auto) (0-5) /lpf Urine Bacteria (Auto) (Negative) SARS-CoV-2 (PCR) (Negative) Influenza Type A (PCR) (Neg) Influenza Type B (PCR) (Neg) RSV (RT-PCR) (Neg) Administered Medications Sodium Chloride (1/2 Nss) 1,000 mls @ 60 mls/hr IV .[id number] ONE Stop: 06/27/23 13:24 Last Admin: 06/26/23 21:26 Dose: 60 mls/hr Documented By: MARIA DEL ROSARIO Discontinued Medications Sodium Chloride (Nss) 1,000 mls @ 999 mls/hr IV .[id number] HOLA Stop: 06/26/23 19:15 Last Infusion: 06/26/23 19:21 Dose: Infused Documented By: MARIA DEL ROSARIO Admin: 06/26/23 18:22 Dose: 999 mls/hr Documented By: ALONA Ceftriaxone Sodium (Rocephin) 2,000 mg in 50 mls @ 100 mls/hr IV NOW STA Stop: 06/26/23 19:31 Last Infusion: 06/26/23 19:54 Dose: Infused Documented By: MARIA DEL ROSARIO Admin: 06/26/23 19:11 Dose: 100 mls/hr Documented By: MARIA DEL ROSARIO Imaging Data Radiologist's Impression: Chest X-Ray 06/26/23 18:12 XR chest 1V portable CLINICAL HISTORY: weakness COMPARISON STUDY: Chest radiograph September 21, 2022. FINDINGS: Lung volumes are normal. Lungs are clear. There is no pneumothorax or pleural effusion. Cardiac size is stable. Left subclavian pacer is in place. Mediastinal contours are normal. There is no evidence for pulmonary edema. Old left-sided rib fractures are incidentally noted. IMPRESSION: No acute cardiopulmonary findings. ACT 112: Negative or not required by law. Electronically signed by: Hardik Fernandez M.D. 06/26/2023 6:[address] 06/26/23 18:12 CT OF THE HEAD WITHOUT CONTRAST CLINICAL HISTORY: Confusion. COMPARISON STUDY: MRI of the brain June 12, 2020. Head CT September 18, 2022. CT DOSE: 547.75 mGy.cm TECHNIQUE: Helical axial images of the head were obtained without IV contrast. Automated exposure control was utilized for the study. A dose lowering technique was utilized adhering to the principles of ALARA. FINDINGS: No acute intracranial hemorrhage, midline shift or mass effect is present. The ventricular system is stable. White matter hypodensities are unchanged and favor small vessel disease. The basal cisterns are patent. No extra-axial collections are present. There are no findings to suggest acute dural sinus thrombosis or acute territorial infarct. No calvarial fractures are identified IMPRESSION: No acute intracranial findings. ACT 112: Negative or not required by law. Electronically signed by: Hardik Fernandez M.D. 06/26/2023 7:35 PM Discharge Plan Visit Data Chief Complaint: Altered Mental Status Stated Complaint: CONFUSION, URINARY SYMPTOMS ED Provider: Patrick Burr Discharge Problem: Acute confusion, HARJEET (acute kidney injury), Acute UTI, Dehydration Patient Disposition: Admitted As Inpatient Condition: Fair Forms Stand Alone Forms: [facility] Prescriptions Prescriptions: No Action atorvastatin 40 mg tablet 40 mg PO HS isosorbide mononitrate 30 mg tablet extended release 24 hr 30 mg PO QAM aspirin 81 mg Tablet,Delayed Release (Dr/Ec) 81 mg PO 3XWK Rx Instructions: TAKE THIS MEDICATION EVERY SATURDAY,SATURDAY AND SATURDAY omeprazole 20 mg capsule,delayed release(DR/EC) 20 mg PO DAILYBB albuterol sulfate [Ventolin HFA] 90 mcg/actuation HFA aerosol inhaler 2 puff inhalation QID PRN (Reason: Shortness Of Breath) potassium chloride [Klor-Con M10] 10 mEq tablet,ER particles/crystals 10 meq PO UD Rx Instructions: TAKE WHEN TAKING FUROSEMIDE, TAKE AN ADDITIONAL TABLET WHEN TAKING ADDITIONAL FUROSEMIDE diclofenac sodium 1 % gel 4 g TOPICAL QID Rx Instructions: APPLY DIRECTED TO RIGHT HIP magnesium oxide 400 mg magnesium Tablet 400 mg PO QAM duloxetine 60 mg capsule,delayed release(DR/EC) 60 mg PO QAM docusate sodium 100 mg Capsule 200 mg PO BID trazodone 50 mg tablet 25 mg PO HS levetiracetam 500 mg tablet 500 mg PO BID acetaminophen [Tylenol Extra Strength] 500 mg Tablet 1,000 mg PO Q6H PRN (Reason: Pain) warfarin 4 mg Tablet 4 - 6 mg PO DIRECTED oxycodone-acetaminophen 10-325 mg Tablet 1 tab PO Q6H PRN (Reason: Severe Pain (Scale Score 7-10)) biotin 10,000 mcg Capsule 10,000 mcg PO DAILY metoprolol succinate 25 mg tablet extended release 24 hr 6.25 mg PO DAILY Centrum 18-400 mg-mcg Tablet 1 tab PO HS torsemide 20 mg tablet 20 mg PO BID cetirizine [Zyrtec] 10 mg Tablet 10 mg PO HS polyethylene glycol 3350 [Miralax] 17 gram/dose Powder 17 g PO DAILY PRN (Reason: Constipation) simethicone 80 mg Tablet,Chewable 80 mg PO Q8H PRN (Reason: GAS DISCOMFORT) cholecalciferol (vitamin D3) [Vitamin D3] 50 mcg (2,000 unit) Capsule 50 mcg PO DAILY Advanced Probiotic 625 mg (10 billion cell) capsule 1 cap PO HS Referrals Referrals: Steve Hooker MD [Primary Care Provider] -
--- NOTE | 2023-06-26 18:32 | XRay Report ---
XR chest 1V portable CLINICAL HISTORY: weakness COMPARISON STUDY: Chest radiograph September 21, 2022. FINDINGS: Lung volumes are normal. Lungs are clear. There is no pneumothorax or pleural effusion. Car diac size is stable. Left subclavian pacer is in place. Mediastinal contours are normal. There is no evidence for pulmonary edema. Old left-sided rib fractures are incidentally noted. IMPRESSION: No acute cardiopulmonary findings. ACT 112: Negative or not required by law. Electronically signed by: Hardik Fernandez M.D. 06/26/2023 6:31 PM
[2023-06-26 18:43] LABS: Appearance Urine Clear (Clear); Bacteria Urine Automated Negative (Negative); Bilirubin Urine Negative (Negative); Blood Urine Negative (Negative); Color Urine Yellow; Epithelial Cell Urine Auto 0-5 /lpf (0-5); Glucose Urine UA Negative (Negative); Ketones Urine Negative (Negative); Leukocyte Esterase Urine 2+ (Negative); Nitrite Urine Negative (Negative); Protein Urine Negative (Negative); RBC Urine Automated 0-4 /hpf (0-4); Specific Gravity Urine 1.008 (1.000-1.030); Urobilinogen Urine Negative (Negative); WBC Urine Automated >30 /hpf (0-5); pH Urine 7.5 (4.5-7.5)
[2023-06-26 18:55] LABS: Basophils # (auto) 0.03 K/uL (0.00-0.20); Basophils % (auto) 0.4 %; Eosinophils # (auto) 0.26 K/uL (0.00-0.50); Eosinophils % (auto) 3.7 %; Hematocrit (blood only) 45.9 % (37.0-47.0); Hemoglobin 15.2 g/dl (12.0-16.0); Immature Granulocytes # (auto) 0.02 K/uL (0.01-0.20); Immature Granulocytes % (auto) 0.3 %; Lymphocytes # (auto) 2.35 K/uL (1.20-3.40); Lymphocytes % (auto) 33.2 %; Mean Corpuscular Hemoglobin 31.3 pg (25.0-34.0); Mean Corpuscular Hgb Conc 33.1 g/dL (32.0-36.0); Mean Corpuscular Volume 94.4 fL (80.0-100.0); Mean Platelet Volume 10.6 fL (9.4-12.4); Monocytes # (auto) 0.52 K/uL (0.11-0.59); Monocytes % (auto) 7.4 %; Neutrophils # (auto) 3.89 K/uL (1.40-6.50); Platelet Count 224 K/uL (130-400); RDW Standard Deviation 48.4 fL (36.4-46.3); Red Blood Count 4.86 M/uL (4.20-5.40); White Blood Count 7.07 K/ul (4.8-10.8)
[2023-06-26] MEDS ORDERED: cefTRIAXone SODIUM 2,000 MG/50 ML BAG IV STA (19:02)
[2023-06-26 19:10] LABS: Troponin I High Sensitivity 6.3 pg/ml (0-14)
[2023-06-26 19:16] LABS: Thyroid Stimulating Hormone 1.903 uIu/ml (0.300-4.500)
[2023-06-26 19:17] LABS: Influenza A virus by PCR Negative (Neg); Influenza B virus by PCR Negative (Neg); RSV by PCR Negative (Neg); SARS CoV2 RNA(COVID-19) Ceph NEGATIVE (Negative)
--- NOTE | 2023-06-26 19:37 | CT Scan Report ---
CT OF THE HEAD WITHOUT CONTRAST CLINICAL HISTORY: Confusion. COMPARISON STUDY: MRI of the brain June 12, 2020. Head CT September 18, 2022. CT DOSE: 547.75 mGy.cm TECHNIQUE: Helical axial images of the head were obtained without IV contrast. Automated exposure con trol was utilized for the study. A dose lowering technique was utilized adhering to the principles o f ALARA. FINDINGS: No acute intracranial hemorrhage, midline shift or mass effect is present. The ventricular system is stable. White matter hypodensities are unchanged and favor small vessel disease. The basal cisterns are patent. No extra-axial collections are present. There are no findings to suggest acute d ural sinus thrombosis or acute territorial infarct. No calvarial fractures are identified IMPRESSION: No acute intracranial findings. ACT 112: Negative or not required by law. Electronically signed by: Hardik Fernandez M.D. 06/26/2023 7:35 PM
[2023-06-26 20:08] LABS: Albumin Globulin Ratio 1.4 (0.9-2); Albumin Level 3.7 gm/dl (3.4-5.0); BUN Creatinine Ratio 18.7 (10-20); Bilirubin,Total 0.4 mg/dl (0.2-1.0); Calcium 9.6 mg/dl (8.6-10.3); Creatinine Clr Calc Pharmacy 25.5 ml/min; Est GFR (African American) 34.8 ml/min; Globulin 2.7 gm/dl (2.5-4.0); Magnesium 2.1 mg/dl (1.7-2.4); Potassium 3.8 mmol/L (3.5-5.1); Total Protein 6.4 gm/dl (6.0-8.3)
[2023-06-26 20:12] LABS: INR 2.4 (0.9-1.1); Partial Thromboplastin Ratio 1.3; Partial Thromboplastin Time 37 Seconds (21-31); Prothrombin Time 25.2 Seconds (9.0-12.0)
[2023-06-26] MEDS ORDERED: SODIUM CHLORIDE 0.45 % 1,000 ML IV ONE (20:45)
--- NOTE | 2023-06-27 02:00 | History & Physical Report ---
Date of Service June 27, 2023 Assessment & Plan (1) Encephalopathy: Plan: Delirium on dementia Secondary to complicated UTI No sepsis for now chronic diastolic heart failure (EF 60 to 65%, TTE 2019), patient on the dry side hx CAD SSS status post PPM on Coumadin, INR therapeutic valvular heart disease (mild AR/MR/TR) hx CVA hypertension, elevated secondary to discomfort hyperlipidemia on statin Rx COPD, stable lung status DM 2 diet-controlled, well-controlled as of recent hemoglobin A1c of 5.21 November 2022 hypothyroidism, euthyroid as of today's TSH CRI, at baseline seizure disorder, stable on regimen past tobacco abuse Medical telemetry Urine CS, Ceftriaxone PT OT eval once medically stable DVT prophylaxis. Coumadin INR goal between 2 and 3 Full code as per son, Mr. Daniel Diaz. He requests updates from providers through [phone]. Text document was generated using [employer] voice recognition software. It may contain grammatical or spelling errors. Kindly contact undersigned for clarification of any documentation item in question. History of Present Illness Chief Complaint: I do not know as per patient UTI, confusion as per family Primary Care Provider: Steve Hooker MD History obtained from patient, family, and records. Limited history from patient secondary to confusion. Medical history significant for chronic diastolic heart failure (EF 60 to 65%, TTE 2019), CAD status post angioplasty, SSS status post PPM on Coumadin, valvular heart disease (mild AR/MR/TR), CVA, hypertension, hyperlipidemia, COPD, GERD, DM 2 diet-controlled, hypothyroidism, CRI (baseline creatinine 1.4-1.5), recurrent UTIs, PMR, seizure disorder, dementia as per records, anxiety/mood disorder, past tobacco abuse. Last confinement September 2022 for left hip fracture status post surgery and Proteus UTI status post antibiotic Rx. [facility] before transitioning home. Patient noted to be more confused than usual the last few days. Patient with dysuria and transient abdominal and back pain complaints. Patient denies headache, chest pain. Transient SOB as per patient. Does not know why she is in the hospital. Patient brought to ER for evaluation. IV ceftriaxone administered at the ER. Patient mentation much better after antibiotics as per son. 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 Allergies Allergy/AdvReac Type Severity Reaction Status Date / Time metoclopramide Allergy Intermediate neuro Verified 06/26/23 18:42 complications adhesive Allergy Unknown ALLERGY TO Verified 06/26/23 18:42 TAPE doxycycline AdvReac Intermediate NAUSEA/VOMI Verified 06/26/23 18:42 TING naproxen [From Naprosyn] AdvReac Intermediate CAN'T Verified 06/26/23 18:42 TOLERATE, DEPRESSED, EMOTIONAL Home Medications Medication Instructions Recorded Confirmed Type albuterol sulfate 90 mcg/actuation 2 puff inhalation QID PRN 08/20/19 06/26/23 History aerosol inhaler (Ventolin HFA) Shortness Of Breath aspirin 81 mg tablet,delayed 81 mg PO 3XWK 08/20/19 06/26/23 History release atorvastatin 40 mg tablet 40 mg PO HS 08/20/19 06/26/23 History diclofenac sodium 1 % topical gel 4 g topical QID 08/20/19 06/26/23 History isosorbide mononitrate 30 mg 30 mg PO QAM 08/20/19 06/26/23 History tablet,extended release 24 hr magnesium oxide 400 mg PO QAM 08/20/19 06/26/23 History omeprazole 20 mg capsule,delayed 20 mg PO DAILYBB 08/20/19 06/26/23 History release potassium chloride 10 mEq 10 meq PO UD 08/20/19 06/26/23 History tablet,extended release(part/cryst) (Klor-Con M) acetaminophen 500 mg tablet 1,000 mg PO Q6H PRN Pain 06/20/21 06/26/23 History (Tylenol Extra Strength) biotin 10,000 mcg capsule 10,000 mcg PO DAILY 06/20/21 06/26/23 History levetiracetam 500 mg tablet 500 mg PO BID 06/20/21 06/26/23 History metoprolol succinate 25 mg 6.25 mg PO DAILY 06/20/21 06/26/23 History tablet,extended release 24 hr multivitamin-ferrous 1 tab PO HS 06/20/21 06/26/23 History fumarate-folic acid 18 mg-400 mcg tablet (Centrum) oxycodone-acetaminophen 10 mg-325 1 tab PO Q6H PRN Severe Pain 06/20/21 06/26/23 History mg tablet (Scale Score 7-10) trazodone 50 mg tablet 25 mg PO HS 06/20/21 06/26/23 History warfarin 4 mg tablet 4 - 6 mg PO DIRECTED 06/20/21 06/26/23 History docusate sodium 100 mg capsule 200 mg PO BID 06/28/22 06/26/23 History duloxetine 60 mg capsule,delayed 60 mg PO QAM 06/28/22 06/26/23 History release L.acidop,casei,lactis,rham-B.lact,trisha 1 cap PO HS 06/26/23 06/26/23 History 625 mg (10 billion cell) capsule (Advanced Probiotic) cetirizine 10 mg tablet (Zyrtec) 10 mg PO HS 06/26/23 06/26/23 History cholecalciferol (vitamin D3) 50 50 mcg PO DAILY 06/26/23 06/26/23 History mcg (2,000 unit) capsule (Vitamin D3) polyethylene glycol 3350 17 17 g PO DAILY PRN Constipation 06/26/23 06/26/23 History gram/dose oral powder (Miralax) simethicone 80 mg chewable tablet 80 mg PO Q8H PRN GAS DISCOMFORT 06/26/23 06/26/23 History torsemide 20 mg tablet 20 mg PO BID 06/26/23 06/26/23 History Past Med/Surg History Medical History Chronic diastolic heart failure Polymyalgia rheumatica Diastolic CHF History of nephrolithiasis Chronic back pain GERD (gastroesophageal reflux disease) CKD stage 3 due to type 1 diabetes mellitus DM type 2 (diabetes mellitus, type 2) Dyslipidemia CAD (coronary artery disease) "1996 - PTCA to RCA 2011 - cath that showed patent RCA and no further disease" Surgical History History of cystoscopy History of lithotripsy History of PTCA S/P appendectomy S/P cholecystectomy S/P hysterectomy Family History Aunt Breast cancer Mother Diabetes Coronary heart disease Father Silicosis Social History Smoking Status: Former smoker Tobacco Type: Cigarettes packs per day: 0.5; Second Hand Exposure: No; Do You Dip or Chew Tobacco: No; Tobacco Cessation Education Requested by Patient: No Hx Alcohol Use: No Hx Substance Use: No Preferred Language: Icelandic Communication Ability: Effective Visual Impairment: Partially Limited Melt Down Furnace Operator Required: No Beliefs That Will Affect Care: None marital status: / Current Living Situation: Alone Current Living Situation Comment: Daugher/son staying with her Other Information That Helps Us Care for You: No Feels Safe at Home: Yes Safety Concerns: Feels Safe At This Time Assistive Devices: Cane, Denture - Upper, Denture - Lower, Glasses and Walker Review of Systems Review of Systems: Could not be reliably obtained secondary to confusion Physical Exam Physical Exam: GENERAL: Disoriented, no respiratory distress SKIN: Normal color, warm HEENT: [place] palpebral conjunctivae, no ptosis, dry buccal mucosa NECK : Supple, no tenderness CHEST : Decreased breath sounds, no tenderness HEART : RRR, systolic murmur ABDOMEN: Some distention, nontender EXTREMITIES : Minimal LE swelling, no LE tenderness, no other conspicuous deformities noted NEUROLOGIC : Disoriented, no facial asymmetry, gait and stance not assessed Results & Data Results & Data Vital Signs (Past 12 Hours) Vital Signs Temp Pulse Resp BP Pulse Ox O2 Del Method 06/27/23 01:15 66 06/26/23 22:56 131/79 97 Room Air 06/26/23 22:56 77 15 06/26/23 22:50 75 14 06/26/23 22:40 81 21 06/26/23 22:30 14 06/26/23 22:20 16 06/26/23 22:10 16 06/26/23 22:00 82 10 L 06/26/23 21:58 81 15 06/26/23 21:40 75 16 06/26/23 21:30 79 21 06/26/23 21:20 71 16 96 Room Air 06/26/23 21:10 80 16 97 06/26/23 21:00 127/81 06/26/23 21:00 95 H 18 95 06/26/23 20:50 114 H 12 06/26/23 20:40 78 17 93 06/26/23 20:30 73 18 89 L 06/26/23 20:20 78 18 92 06/26/23 20:10 79 20 95 06/26/23 20:00 146/96 H 06/26/23 20:00 73 15 76 L 06/26/23 19:50 79 19 96 Room Air 06/26/23 19:48 132/94 06/26/23 19:48 75 16 97 06/26/23 19:40 74 22 96 06/26/23 19:30 78 14 96 06/26/23 19:20 76 14 95 06/26/23 19:11 85 17 91 06/26/23 19:11 149/87 H 06/26/23 19:10 76 12 06/26/23 18:50 64 22 06/26/23 18:42 147/96 H 06/26/23 18:42 75 22 06/26/23 18:40 77 14 06/26/23 18:30 77 20 06/26/23 18:20 73 15 95 06/26/23 18:12 93 Room Air 06/26/23 18:10 77 21 96 06/26/23 18:03 36.9 C 77 12 129/90 93 Room Air 06/26/23 18:00 68 16 06/26/23 18:00 133/87 06/26/23 17:58 74 06/26/23 17:57 77 15 06/26/23 17:57 Room Air 06/26/23 17:57 Room Air 06/26/23 17:56 129/90 Laboratory Results Laboratory Results WBC 7.07 K/ul (4.8-10.8) 06/26/23 18:06 RBC 4.86 M/uL (4.20-5.40) 06/26/23 18:06 Hgb 15.2 g/dl (12.0-16.0) 06/26/23 18:06 Hct 45.9 % (37.0-47.0) 06/26/23 18:06 MCV 94.4 fL (80.0-100.0) 06/26/23 18:06 MCH 31.3 pg (25.0-34.0) 06/26/23 18:06 MCHC 33.1 g/dL (32.0-36.0) 06/26/23 18:06 RDW Std Deviation 48.4 fL (36.4-46.3) H 06/26/23 18:06 RDW Coeff of Tab 14.0 % (11.5-14.5) 06/26/23 18:06 Plt Count 224 K/uL (130-400) 06/26/23 18:06 MPV 10.6 fL (9.4-12.4) 06/26/23 18:06 Immature Gran % (Auto) 0.3 % 06/26/23 18:06 Neut % (Auto) 55.0 % 06/26/23 18:06 Lymph % (Auto) 33.2 % 06/26/23 18:06 [place] % (Auto) 7.4 % 06/26/23 18:06 Eos % (Auto) 3.7 % 06/26/23 18:06 Baso % (Auto) 0.4 % 06/26/23 18:06 Neut # (Auto) 3.89 K/uL (1.40-6.50) 06/26/23 18:06 Lymph # (Auto) 2.35 K/uL (1.20-3.40) 06/26/23 18:06 [place] # (Auto) 0.52 K/uL (0.11-0.59) 06/26/23 18:06 Eos # (Auto) 0.26 K/uL (0.00-0.50) 06/26/23 18:06 Baso # (Auto) 0.03 K/uL (0.00-0.20) 06/26/23 18:06 Immature Gran # (Auto) 0.02 K/uL (0.01-0.20) 06/26/23 18:06 PT 25.2 Seconds (9.0-12.0) H 06/26/23 18:40 INR 2.4 (0.9-1.1) H 06/26/23 18:40 APTT 37 Seconds (21-31) H 06/26/23 18:40 PTT Ratio 1.3 06/26/23 18:40 Sodium 141 mmol/L (136-145) 06/26/23 18:40 Potassium 3.8 mmol/L (3.5-5.1) 06/26/23 18:40 Chloride 101 mmol/L (98-107) 06/26/23 18:40 Carbon Dioxide 33 mmol/L (21-32) H 06/26/23 18:40 Anion Gap 7 (3-11) 06/26/23 18:40 BUN 29 mg/dl (6-23) H 06/26/23 18:40 Creatinine 1.55 mg/dl (0.6-1.2) H 06/26/23 18:40 Est Cr Clr Drug Dosing 25.5 ml/min 06/26/23 18:40 Est GFR ( Amer) 34.8 ml/min 06/26/23 18:40 Est GFR (Non-Af Amer) 30.0 ml/min 06/26/23 18:40 BUN/Creatinine Ratio 18.7 (10-20) 06/26/23 18:40 Glucose 112 mg/dl (70-99(Fasting)) H 06/26/23 18:40 Lactate 1.4 mmol/L (0.4-2.0) 06/26/23 18:40 Calcium 9.6 mg/dl (8.6-10.3) 06/26/23 18:40 Magnesium 2.1 mg/dl (1.7-2.4) 06/26/23 18:40 Total Bilirubin 0.4 mg/dl (0.2-1.0) 06/26/23 18:40 AST 49 U/L (13-39) H 06/26/23 18:40 ALT 21 U/L (7-52) 06/26/23 18:40 Alkaline Phosphatase 120 U/L (34-104) H 06/26/23 18:40 Ammonia 26.0 umol/L (18-72) 06/26/23 18:40 Troponin I High Sens 6.3 pg/ml (0-14) 06/26/23 18:06 Total Protein 6.4 gm/dl (6.0-8.3) 06/26/23 18:40 Albumin 3.7 gm/dl (3.4-5.0) 06/26/23 18:40 Globulin 2.7 gm/dl (2.5-4.0) 06/26/23 18:40 Albumin/Globulin Ratio 1.4 (0.9-2) 06/26/23 18:40 TSH 1.903 uIu/ml (0.300-4.500) 06/26/23 18:06 Urine Color Yellow 06/26/23 18:10 Urine Appearance Clear (Clear) 06/26/23 18:10 Urine pH 7.5 (4.5-7.5) 06/26/23 18:10 Ur Specific [place] 1.008 (1.000-1.030) 06/26/23 18:10 Urine Protein Negative (Negative) 06/26/23 18:10 Urine Glucose (UA) Negative (Negative) 06/26/23 18:10 Urine Ketones Negative (Negative) 06/26/23 18:10 Urine Blood Negative (Negative) 06/26/23 18:10 Urine Nitrite Negative (Negative) 06/26/23 18:10 Urine Bilirubin Negative (Negative) 06/26/23 18:10 Urine Urobilinogen Negative (Negative) 06/26/23 18:10 Ur Leukocyte Esterase 2+ (Negative) H 06/26/23 18:10 Urine WBC (Auto) >30 /hpf (0-5) H 06/26/23 18:10 Urine RBC (Auto) 0-4 /hpf (0-4) 06/26/23 18:10 U Hyaline Cast (Auto) 5-10 /lpf (0-5) H 06/26/23 18:10 U Epithel Cells (Auto) 0-5 /lpf (0-5) 06/26/23 18:10 Urine Bacteria (Auto) Negative (Negative) 06/26/23 18:10 SARS-CoV-2 (PCR) NEGATIVE (Negative) 06/26/23 18:13 Influenza Type A (PCR) Negative (Neg) 06/26/23 18:13 Influenza Type B (PCR) Negative (Neg) 06/26/23 18:13 RSV (RT-PCR) Negative (Neg) 06/26/23 18:13 Impressions Chest X-Ray 06/26/23 18:12 XR chest 1V portable CLINICAL HISTORY: weakness COMPARISON STUDY: Chest radiograph September 21, 2022. FINDINGS: Lung volumes are normal. Lungs are clear. There is no pneumothorax or pleural effusion. Cardiac size is stable. Left subclavian pacer is in place. Mediastinal contours are normal. There is no evidence for pulmonary edema. Old l eft-sided rib fractures are incidentally noted. IMPRESSION: No acute cardiopulmonary findings. ACT 112: Negative or not required by law. Electronically signed by: Hardik Fernandez M.D. 06/26/2023 6:[address] 06/26/23 18:12 CT OF THE HEAD WITHOUT CONTRAST CLINICAL HISTORY: Confusion. COMPARISON STUDY: MRI of the brain June 12, 2020. Head CT September 18, 2022. CT DOSE: 547.75 mGy.cm TECHNIQUE: Helical axial images of the head were obtained without IV contrast. Automated exposure control was utilized for the study. A dose lowering techni que was utilized adhering to the principles of ALARA. FINDINGS: No acute intracranial hemorrhage, midline shift or mass effect is present. The ventricular system is stable. White matter hypodensities are unchanged and favor small vessel disease. The basal cisterns are patent. No extra-axial collections are present. There are no findings to suggest acute dural sinus thrombosis or acute territorial infarct. No calvarial fractures are identified IMPRESSION: No acute intracranial findings. ACT 112: Negative or not required by law. Electronically signed by: Hardik Fernandez M.D. 06/26/2023 7:[address] abdomen pelvis: 1. Interval resolution of the previously noted left perinephric fat stranding. Similar left pelviectasis without calyceal dilatation. Interval increase in size in the previously noted nephrolithiasis in the inferior pole the left kidney, now measuring 9 mm. Punctate nonobstructive nephrolithiasis also noted bilaterally. Right pelviectasis without calyceal dilatation. No ureteral stones. No bladder calcifications. 2. No evidence for bowel obstruction. Evaluation of the bowel mucosa is slightly limited without contrast; however, no definite focal asymmetry suggested. At least moderate stool burden. No free intraperitoneal fluid or pneumoperitoneum. 3. Common bile duct is prominent measuring 12 cm in diameter. Intrahepatic biliary dilatation is new from the previous examination. This is likely related to cholecystectomy; however, please correlate with bilirubin levels. If there is concern for biliary stasis, MRCP or endoscopic evaluation is recommended. 4. Patchy opacities in the right lower lobe, new from the previous exam. This may represent atelectasis; however, right lower lobe pneumonia is not excluded. Diagnostic Findings EKG as per my interpretation : Rate 70, paced rhythm
[2023-06-27] MEDS ORDERED: PROMETHAZINE HCL 6.25 MG in SODIUM CHLORIDE 0.9% 50 ML IV PRN (02:09)
--- OUTSIDE RECORDS SUMMARY | 2023-06-27 02:51 | External Medical Summary | Summary of Care ---
Author Name Unknown Organization [facility] Address [address] [place] [address] Phone [phone] Care Team Providers Care Ring Packer Name Role Phone Nhung LOPEZ MD, Steve Langston Primary Care Provider [phone] Reason for Visit * Reason Onset Date Comments Medication Refill 06/13/2023 Encounter Details Date Type Department Care Team (Late st Contact Info) Description 06/13/2023 Refill Family Practice [facility] [place] [address] [facility] [place] [address] Steve Hooker III, MD [address] [facility] [place] [address] Pain Allergies Active Allergy Reactions Criticality Noted Date Comments Adhesive Tape 07/05/2022 Doxycycline Nausea/vomiting 11/03/2010 Metoclopramide Hcl Neuro complications (Please comment) 12/07/2010 Developed worsening tremor and lip smacking. Naproxen 01/23/2012 Can not tolerate-gets very emotional and depressed documented as of this encounter (statuses as of 06/14/2023) Medications Medication Sig Dispensed Refills Start Date End Date Status ASPIRIN 81 MG PO TABS 1 TABLET BY MOUTH MWF 0 0 6 Active PROBIOTIC PO CAPS daily 0 Active DOCQLACE 100 MG PO CAPSIndications:Ab dominal pain, right upper quadrant TAKE TWO CAPSULES BY MOUTH DAILY 120 Cap 3 3 Active Additional Information Patient taking differently: 200 mgOralBID (.AM/PM), Reported on 09/13/2022 Polyethylene Glycol 3350 17 GM/SCOOP Oral Powder Take 17 g by mouth daily as needed for Constipation. 0 Active acetaminophen (TYLENOL) 500 MG Tablet Take 2 Tablets by mouth every 6 hours as needed for Pain. 100 Tab 0 0 Active Multiple Vitamins-Minerals (CENTRUM ADULTS) TABS Take by mouth daily. 0 Active Simethicone 80 MG Oral Tablet Chewable (Mylicon) Take 1 Tablet by mouth every 8 hours as needed for Gas. 0 Active OneTouch Delica Lancets 30GIndications:Typ e 2 diabetes mellitus with hemoglobin A1c goal of less than 8.0% ([facility]) Use to test once daily DX E11.9 100 Each 3 1 Active Biotin 94528 MCG Oral Tablet Take 1 Tablet by mouth daily. 0 Active OneTouch Ultra Blue In Vitro Strip (Glucose Blood) Use to test once daily DX E11.9 100 Strip 3 2 Active Cetirizine HCl 10 MG Oral Tablet Take 1 Tablet by mouth in the morning. 0 3 Active DULoxetine HCl 60 MG Oral Capsule Delayed Release Particles (Cymbalta)Indicati ons:Moderate persistent asthma without complication TAKE ONE CAPSULE BY MOUTH EVERY MORNING DO NOT CUT, CRUSH OR CHEW 90 Capsule 3 3 09/18/19 24 Active Magnesium Oxide 400 MG Oral TabletIndications: ASCVD (arteriosclerotic cardiovascular disease) TAKE ONE TABLET BY MOUTH EVERY MORNING 90 Tablet 3 3 09/13/19 24 Active Diclofenac Sodium 1 % External Gel (Voltaren) APPLY 4 GRAMS TOPICALLY TO RIGHT HIP FOUR TIMES A DAY 350 g 3 3 09/03/19 24 Active Potassium Chloride Elvi ER 10 MEQ Oral Tablet Extended ReleaseIndications :ASCVD (arteriosclerotic cardiovascular disease) TAKE ONE TABLET BY MOUTH EVERY DAY WITH FUROSEMIDE. TAKE AND ADDITIONAL TABLET WHEN TAKING ADDITIONAL FUROSEMIDE 135 Tablet 2 3 08/26/19 24 Active Additional Information Patient taking differently: Taking 1 tab daily, Reported on 03/13/2023 Vitamin D 50 MCG (2000 UT) Oral Tablet Take 2,000 Units by mouth in the morning. 0 Active traZODone HCl 50 MG Oral Tablet (Desyrel) TAKE 1/2 TABLET BY MOUTH AT BEDTIME 45 Tablet 2 3 Active Metoprolol Succinate ER 25 MG Oral Tablet Extended Release 24 Hour (toPROL XL) Take 1 Tablet by mouth in the morning. 100 Tablet 3 3 Active Albuterol Sulfate HFA 108 (90 Base) MCG/ACT Inhalation Aerosol Solution INHALE TWO PUFFS BY MOUTH FOUR TIMES A DAY NEEDED FOR SHORTNESS OF BREATH 54 g 1 3 04/12/20 24 Active Warfarin Sodium 4 MG Oral Tablet (Coumadin) TAKE ONE TO ONE AND ONE-HALF TABLETS BY MOUTH EVERY DAY DIRECTED BY ANTICOAGULATION PHARMACIST 135 Tablet 2 3 Active Omeprazole 20 MG Oral Capsule Delayed Release (PriLOSEC) TAKE ONE CAPSULE BY MOUTH IN THE MORNING. 30 MINUTES BEFORE THE FIRST MEAL OF THE DAY 100 Capsule 1 3 05/19/20 24 Active DIURETIC TITRATION PLAN If no improvement on day 3, contact heart failure managing provider. 1 Each 0 3 Active Isosorbide Mononitrate ER 30 MG Oral Tablet Extended Release 24 Hour (Imdur)Indications :CHOUDHARY (dyspnea on exertion) TAKE ONE TABLET BY MOUTH EVERY DAY IN THE MORNING 100 Tablet 3 3 Active Atorvastatin Calcium 40 MG Oral Tablet (Lipitor) TAKE ONE TABLET BY MOUTH EVERY DAY 100 Tablet 3 3 Active levETIRAcetam 500 MG Oral Tablet (Keppra) Take 1 Tablet by mouth in the morning and 1 Tablet before bedtime. 180 Tablet 1 3 Active Torsemide 20 MG Oral Tablet (Demadex) Take 1 Tablet by mouth in the morning and 1 Tablet in the evening. 90 Tablet 1 3 Active oxyCODONE-Acetamin ophen 10-325 MG Oral TabletIndications: Pain Take 1 Tablet by mouth every 6 hours as needed for Severe Pain 120 Tablet 0 3 Active oxyCODONE-Acetamin ophen 10-325 MG Oral TabletIndications: Pain Take 1 Tablet by mouth every 6 hours as needed for Pain, Severe. 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 07/19/2021 Last Assessment & Plan: "RED FLAG" Diabetic symptoms: Other: none Goal HgbA1c <8 Diabetic Complications Vascular (examples: PVD, PAD, CAD, CVA) Renal (example: CKD, Proteinuria, Dialysis) Medication Regimen Lifestyle Modification / Monitoring ONLY DM Secondary Prevention Moderate-High Intensity Statin Aspirin Additional Comments Stable 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 07/19/2021 Last Assessment & Plan: "RED FLAG" HF Symptoms: Leg Swelling (Examples: "I can't wear certain socks or shoes", "My pants feel tight") Medication Regimen: Beta Zayra Therapy: Metoprolol Succinate (ER) MARISABEL Inhibitor/ARB Therapy: none Diuretic therapy: Torsemide SGLT2 Inhibitor: none Remote Patient Monitoring Vendor: [facility] Device(s): Connected Scale Self - Management Plan Double dose of Torsemide for 3 days Exacerbation Plan BMP Additional Comments: Stable today Cardiac pacemaker in situ 03/25/2020 Unspecified open-angle glaucoma, stage unspecifi ed 12/09/2019 Gastroesophageal reflux disease without esophagi tis 07/24/2019 Hyperparathyroidism, secondary renal 10/17/2018 Moderate persistent asthma without complication 03/11/2018 Last Assessment & Plan: -use albuterol MDI as needed -no recent exacerbation Spondylosis of lumbar region without myelopathy or radiculopathy 03/11/2018 Venous insufficiency 12/14/2016 MEDICATION USE AGREEMENT 06/22/2014 Overview: Signed 12/22/13 Steve Hooker III, MD [facility] [place] Facet arthropathy, lumbar 10/07/2013 Type 2 diabetes mellitus wit h hemoglobin A1c goal of less than 8.0% 07/15/2013 Overview: ICD-10 update of inactive term History of tobacco use 02/18/2013 Hearing loss 02/18/2013 ADVANCE DIRECTIVE INFORMATION 08/09/2010 Overview: No, Advance Directive brochure given to patient at prior appointment. DYSLIPIDEMIA, GOAL LDL BELOW 70 05/30/2009 Overview: Per Lipid Taxonomy. 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, not intractable, without status epilepticus 07/06/2020 07/19/2021 Chronic diastolic heart failure 05/31/2020 05/26/2023 Type 2 diabetes mellitus wit h diabetic peripheral angiopathy without gangrene 12/09/2019 0 07/19/2021 Atrial fibrillation with RVR 12/09/2019 05/26/2023 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 3 chronic kidney disease 12/09/201906/26 Sacroiliitis 07/24/2019 11/21/2022 Nephrolithiasis 04/08/2018 04/21/2019 Type 2 diabetes mellitus wit h stage 3 chronic kidney disease and hypertension 03/11/2018 06/26/19 Inflammatory spondylopathy of lumbar region 09/05/2017 11/21/2022 Type 2 diabetes mellitus wit h chronic kidney disease and hypertension 05/29/2017 03/11/2018 Chronic kidney disease due t o type 2 diabetes mellitus 11/16/2016 03/11/2018 HTN, goal below 130/80 11/28/201502/26 Overview: Per HTN Protocol Kidney disease, chronic, sta ge III (GFR 30-59 ml/min) 10/03/2015 01/22/2017 Overview: Per CKD protocol #1 Asthma in remission 08/04/2014 03/11/20 18 Hypertension goal BP (blood pressure) < 140/80 10/12/2013 12/01/2015 Overview: Per HTN Protocol Right facial swelling 02/18/20132017 Chronic rhinitis 02/18/2013 06/13/2018 COPD, moderate 12/29/2012 12/29/2012 HTN, goal below 140/90 06/30/201210/07 HTN, goal below 140/80 02/04/201206/30 Overview: Per HTN Protocol #27. Asthma, mild persistent. Mod restrictive ds. 1 08/04/2014 Benign neoplasm of colon 02/24/2010 Overview: adenomatousa/repeat colonoscopy in 5 yrs HTN, GOAL BELOW 130/80 07/13/200902/06 Overview: Per HTN Taxonomy. Type 2 diabetes mellitus wit h hemoglobin A1c goal of less than 7.0% 04/14/2009 07/15/2013 Overview: Per Diabetes Taxonomy. ICD-10 update of inactive term Type 2 diabetes mellitus wit h hemoglobin A1c goal of less than 7.0% 01/03/2005 04/14/2009 Overview: Per Diabetes Taxonomy. ICD-10 update of inactive term Other specified glaucoma 05/05/2003 HYPERTENSIVE HRT DIS NOS 09/05/2002 Overview: Per Heart Failure Taxonomy Protocol. COPD, severity to be determined 12/10/2000 12/29/2012 Overview: PFT 10/2009 -- Moderate restrictive/obstructive lung disease, significant response to albuterol, mild hyperinflation HTN, goal below 140/90 07/13 Overview: Per HTN Taxonomy. Mixed dyslipidemia Overview: Per Lipid Taxonomy. Polymyalgia rheumatica 06/30 DEEP PHLEBITIS-LEG NEC 05/04 BENIGN NEOPLASM LG BOWEL documented as of this encounter (statuses as of 06/14/2023) Immunizations Name Administration Dates Next Due COVID-19 mRNA, LNP-s, No Pre serve, 2-Dose Series ([employer]) 06/01/2021,10/15/2020,09/24/2020 Covid-19, Mrna, Lnp-s, Pf, B ivalent, 10 Mcg, IM, 5-11 yrs (Pfizer) 07/12/2022 H1N1 2009 Influenza, IM 06/28/2009 PPD 07/06/2022 Pneumococcal Conjugate Vacc, 13 Valent (Prevnar) 08/04/2014 Pneumococcal Polysaccharide PPV23 (Pneumovax) 12/29/2009 Season Influenza, Quad, PF, Adjuvanted, 65+ Yrs, IM (FLUAD) 06/08/2020 Seasonal Influenza, PF, 6 M & above, IM , (FluLaval or Fluzone) 03/11/2018,05/29/2017 Seasonal Influenza, Quadriva lent Hd (Fluzone Hd) 04/03/2023,03/27/2021 Seasonal Influenza, Quadriva lent Hd, 65+ Yrs 07/10/2022 Seasonal Influenza, Quadriva lent, No Preserve, IM 02/27/2016 Seasonal Influenza, Split, I IV3, With Preserve, Inj 05/04/2014,02/25/2013,02/27/2012,04/11,04/04/2010,06/13/2009,04/05/2008 ,03/26/2007,04/15/2006 Seasonal Influenza, Trivalen t, Adjuvanted, 65+ yrs 04/21/2019 TD - Tetanus/Diptheria (ADULT) 11/20/2007 TDAP (age 10 and older)(Boostrix) 02/01/2015 Varicella Zoster Vaccine (Adult) 02/23/2015 Zoster Vaccine Recombinant (Shingrix) 11/14/2018 ,10/30/2018,05/30/2018 documented as of this encounter Social History Tobacco Use Types Packs/Day Years Used Date Smoking Tobacco: Former Cigarettes 0.5 40 Q uit: 02/11/1995 Smokeless Tobacco: Never Alcohol Use Standard Drinks/Week Comments Yes 0 (1 standard drink = 0.6 oz pur e alcohol) every now and then per patient PHQ-2 Answer Date Recorded PHQ-2 Score 0 04/19/2018 Hunger Vital Sign Answer Date Recorded Within the past 12 months, y ou worried that your food would run out before you got the money to buy more. Never true 05/24/20 23 Within the past 12 months, t he food you bought just didn't last and you didn't have money to get more. Never true 05/24/2023 Sex and Gender Information Value Date Recorded Sex Assigned at Female 09/15/2018 10:33 AM EDT Gender Identity Female 09/15/2018 10:33 AM EDT Sexual Orientation Straight 09/15/2018 10 :33 AM EDT Job Start Date Occupation Industry Not on file Not on file Not on file documented as of this encounter Miscellaneous Notes * Telephone Encounter - Lindsey Smart MD - 06/14/2023 10:09 AM ESTSigned Prescriptions: Disp Refills oxyCODONE-Acetaminophen 10-325 MG Oral Tab*120 Ta*0 Sig: Take 1 Tablet by mouth every 6 hours as needed for Pain, Severe. Authorizing Provider: LINDSEY SMART * Telephone Encounter - Andrea Cabral [facility] - 06/14/2023 9:57 AM ESTPending Prescriptions: Disp Refills oxyCODONE-Acetaminophen 10-325 MG Oral Tab*120 Ta*0 Sig: Take 1 Tablet by mouth every 6 hours as needed for Pain, Severe. * Telephone Encounter - Andrea Cabral RPh - 06/14/2023 9:55 AM EST I have reviewed the patients controlled substance dispensing history in the Prescription Drug Monitoring Program in compliance with the [facility] regulations before prescribing a controlled substance. PDMP checked on 06/14/2023. Pending Prescriptions: Disp Refills oxyCODONE-Acetaminophen 10-325 MG Oral Ta*120 Ta*0 Sig: Take 1 Tablet by mouth every 6 hours as needed for Pain, Severe. Last Visit: 08/21/2022 (in office), 11/21/2022 (telemedicine) Next Visit: Visit date not found Date medication was last filled: 05/18 Date medication is due for refill: 06/16 Pharmacy: [facility] Is this request for a controlled substance? Yes and Urine Drug Screen Not completed Toxicology results: Results for orders placed or performed in visit on 10/09/18 TOX SCREEN, URINE, W/ CONFIRMATION Result Value Amphetamine NEGATIVE Benzodiazepines NEGATIVE Cannabinoids NEGATIVE Cocaine Metabolite NEGATIVE HYDROCODONE NEGATIVE Morphine / Codeine NEGATIVE METHADONE METABOLITE NEGATIVE OXYCODONE POSITIVE (A) TOX COMMENT THE ABOVE SCREENING RESULTS ARE PRESUMPTIVE AND CAN ONLY BE USED FOR MEDICAL PURPOSES. POSITIVE RESULTS REFLEX TO CONFIRMATORY TESTING. Cutoff Concentration *Note: Due to a large number of results and/or encounters for the requested time period, some results have not been displayed. A complete set of results can be found in Results Review. Please approve if appropriate. Thanks, Edy Cabral, PharmD Clinical Pharmacist [facility]) ([facility]) [phone] 06/14/2023 9:55 AM * Telephone Encounter - Brooke Robledo, cooker casing - 06/13/2023 3:45 PM EST Did you pend patient's preferred pharmacy and medication before forwarding?yes Pharmacy: [facility] Pending Prescriptions: Disp Refills oxyCODONE-Acetaminophen 10-325 MG Oral Ta*120 Ta*0 Sig: Take 1 Tablet by mouth every 6 hours as needed for Pain, Severe. Last Visit: 08/21/2022 (in office), 11/21/2022 (telemedicine) Next Visit: Visit date not found If no future appointments scheduled, and last appointment is greater than a year ago, please schedule patient for a follow-up appointment Last date the medication was ordered: 05/17 Is this request for a controlled substance?Yes, What was the last refill date 05/18 w/ quantity 120 and dosage 10 325 mg and Urine Drug Screen Not completed Urine Drug Screen: Results for orders placed or performed in visit on 10/09/18 TOX SCREEN, URINE, W/ CONFIRMATION Result Value Amphetamine NEGATIVE Benzodiazepines NEGATIVE Cannabinoids NEGATIVE Cocaine Metabolite NEGATIVE HYDROCODONE NEGATIVE Morphine / Codeine NEGATIVE METHADONE METABOLITE NEGATIVE OXYCODONE POSITIVE (A) TOX COMMENT THE ABOVE SCREENING RESULTS ARE PRESUMPTIVE AND CAN ONLY BE USED FOR MEDICAL PURPOSES. POSITIVE RESULTS REFLEX TO CONFIRMATORY TESTING. Cutoff Concentration *Note: Due to a large number of results and/or encounters for the requested time period, some results have not been displayed. A complete set of results can be found in Results Review. Patient Phone Numbers Labs: Lab Results Component Value Date/Time CREAT 1.4 (H) 12/17/2022 10:44 AM CREAT 1.30 (A) 06/03/2020 12:00 AM CREAT 1.5 (H) 03/23/2020 03:39 PM CREAT 0.7 08/21/1996 08:30 AM POTASSIUM 4.3 12/17/2022 10:44 AM POTASSIUM 4.2 06/03/2020 12:00 AM POTASSIUM 4.2 03/23/2020 03:39 PM POTASSIUM 4.3 08/21/1996 08:30 AM TSH 2.04 12/21/2021 12:27 PM TSH 1.320 06/03/2020 12:00 AM TSH 1.79 03/23/2020 03:39 PM TSH 1.24 08/28/1996 02:50 PM LDLCALC 65 01/14/2023 10:05 AM LDLCALC 69 03/23/2020 03:39 PM LDLCALC 111. 08/21/1996 08:30 AM LDLDIRECT NOT APPLICABLE 03/23/2020 03:39 PM LDLDIRECT 102 03/09/2019 03:08 PM ALT 16 12/21/2021 12:27 PM ALT 18 03/23/2020 03:39 PM ALT 21 08/21/1996 08:30 AM HGBA1C 5.7 (H) 11/27/2022 10:55 AM HGBA1C 5.6 03/27/2021 11:49 AM HGBA1C 6.1 (A) 11/26/2019 12:00 AM HGBA1C 6.2 (H) 03/09/2019 03:08 PM documented in this encounter Plan of Treatment Upcoming Encounters Date Type Department Care Team (Late st Contact Info) Description 06/25/2023 8:40 AM EST Laboratory Lab Mobile Phlebotomy [facility] [address] [place] [address] [facility] [address] [place] [address] 06/26/2023 6:00 AM EST Anticoagulation Pharmacy Call Center [phone] [facility] [place] [address] [address], [facility] [address] [facility] [place] [phone] 07/01/2023 8:30 AM EST Home Visit [facility], [facility] [address] [facility] [place] [address] RN [address] [facility] [place] [address] Health Maintenance Due Date Last Done Comments Hepatitis B (1 of 3 - Risk 3-dose series) 1997 Depression Screening 09/16/2019 09/15/2018 Diabetic Foot Exam 09/12/2021 09/12/2020, 0 12/09/2019, 01/07/2019, Additional history exists *BISPHONATE OR OTHER ACCEPTABLE MEDICATION NEEDED FOR OSTEOPOROSIS (REFER TO SMARTSET #1146) 02/17/2022 Albumin/Creatinine Ratio 07/27/2022 022, 01/15/2020, 04/07/2019, Additional history exists COVID-19 Vaccine ( season) 2023 07/12/2022, 06/01/2021, 10/15/2020, Additional history exists CKD PHOS USE SMARTSET 67665 03/02/202302/15, 07/04/2021, 09/12/2020, Additional history exists HbA1c 05/29/2023 11/27/2022, 10/17, 07/25/2021, Additional history exists CKD HGB USE SMARTSET 38408 12/18/202312/17, 12/17/2022, 11/27/2022, Additional history exists DXA Scan 12/27/2023 12/26/2021, 05/17, 05/26/2014, Additional history exists Diabetic Eye Exam 06/07/2024 06/07/2023, , 01/13/2021, Additional history exists DTaP,Tdap,and Td Vaccines (2 - Td or Tdap) 02/01/2025 02/01/2015, 11/20/2007, 09/21/1998 Pneumococcal Vaccine: 65+ Years Completed 08/04/2014, 12/29/2009 Zoster Vaccines Completed 11/14/2018, 10/15, 05/30/2018, Additional history exists VITAMIN D LEVEL ONCE IN A LIFETIME-USE SMARTSET# [id number] Completed 07/04/2021, 09/12/2020, 01/11/2020, Additional history exists Influenza Vaccine (FLU shot) Completed , 07/10/2022, 03/27/2021, Additional history exists GARDASIL-HPV IMMUNIZATION SERIES Aged Out No longer eligible based on patient's age to complete this topic MENINGOCOCCAL (MENACTRA/MENVEO) Aged Out No longer eligible based on patient's age to complete this topic documented as of this encounter Medical Devices Not on filedocumented as of this encounter Visit Diagnoses Diagnosis Pain Generalized pain documented in this encounter Advance Directives Latest Code Status on File Code Status Date Activated Date Inactivated Comments Full Code 03/22/2017 8:49 AM 03/22/2017 4:00 PM This order reflects the patients wishes and were consensually agreed upon. Code Status History Code Status Date Activated Date Inactivated Comments Full Code 03/08/2017 6:30 AM 03/08/2017 2:35 PM This order reflects the patients wishes and were consensually agreed upon. Care Teams Ring Packer Relationship Specialty Start Date End Date Steve Hooker III, MD [address] [facility] [place] [address] PCP - General 01/30/1996 documented as of this encounter
--- OUTSIDE RECORDS SUMMARY | 2023-06-27 02:51 | External Medical Summary ---
Author Name Unknown Address Unknown Organization [id number]:[facility] [place] [address] Laboratory Report Ordering Provider Test Date Status LOURDES DE GUZMAN 06/11/2023 12:15:00 Final Standing order for pt/inr. < br/>Please draw pt/inr every 1 to 4 weeks as requested
Results to [facility]

Warfarin Therapy
INR: 2.0-3.0 conventional anticoagulation
INR: 2.5-3.5 high intensity anticoagulation Observation Date Value Abnormality Reference (Units ) Status PT 06/11/2023 12:15:00 24.2 Above high normal 11 .6-15.2 (seconds) Final INR 06/11/2023 12:15:00 2.1 Above high normal 0. 8-1.2 Final Performing Location [place] [address]
--- OUTSIDE RECORDS SUMMARY | 2023-06-27 02:51 | External Medical Summary | Summary of Care ---
Author Name Unknown Organization [facility] Address [address] [place] [address] Phone [phone] Care Team Providers Care Hospital Receptionist Name Role Phone Nhung LOPEZ MD, Steve Langston Primary Care Provider [phone] Reason for Visit * Reason Comments Dosage Adjustment Via Phone (anticoag Cl inic) Encounter Details Date Type Department Care Team (Latest Contact Info) Description 06/12/2023 6:00 AM [facility] Anticoagulation Pharmacy Call Center WB [phone] [facility] [place] [address] [facility] [address] [facility] [place] [address] Anticoagulation management encounter* Allergies Active Allergy Reactions Criticality Noted Date Comments Adhesive Tape 07/05/2022 Doxycycline Nausea/vomiting 11/03/2010 Metoclopramide Hcl Neuro complications (Please comment) 12/07/2010 Developed worsening tremor and lip smacking. Naproxen 01/23/2012 Can not tolerate-gets very emotional and depressed documented as of this encounter (statuses as of 06/12/2023) Medications Medication Sig Dispensed Refills Start Date End Date Status ASPIRIN 81 MG PO TABS 1 TABLET BY MOUTH MWF 0 0 6 Active PROBIOTIC PO CAPS daily 0 Active DOCQLACE 100 MG PO CAPSIndications:Abd ominal pain, right upper quadrant TAKE TWO CAPSULES [...] ADULTS) TABS Take by mouth daily. 0 Acti ve Simethicone 80 MG Oral Tablet Chewable (Mylicon) Take 1 Tablet by mouth every 8 hours as needed for Gas. 0 Active OneTouch Delica Lancets 30GIndications:Type 2 diabetes mellitus with hemoglobin A1c goal of less than 8.0% ([facility]) Use to test once daily DX E11.9 100 Each 3 1 Active Biotin 00224 MCG Oral Tablet Take 1 Tablet by mouth daily. 0 Active OneTouch Ultra Blue In Vitro Strip (Glucose Blood) Use to test once daily DX E11.9 100 Strip 3 2 Active Cetirizine HCl 10 MG Oral Tablet Take 1 Tablet by mouth in the morning. 0 3 Active DULoxetine HCl 60 MG Oral Capsule Delayed Release Particles (Cymbalta)Indicatio ns:Moderate persistent asthma without complication TAKE ONE CAPSULE BY MOUTH EVERY MORNING DO NOT CUT, CRUSH OR CHEW 90 Capsule 3 3 09/18/19 24 Active Magnesium Oxide 400 MG Oral TabletIndications:A SCVD (arteriosclerotic cardiovascular disease) TAKE ONE TABLET BY MOUTH EVERY MORNING 90 Tablet 3 3 09/13/19 24 Active Diclofenac Sodium 1 % External Gel (Voltaren) APPLY 4 GRAMS TOPICALLY TO RIGHT HIP FOUR TIMES A DAY 350 g 3 3 09/03/19 24 Active Potassium Chloride Elvi ER 10 MEQ Oral Tablet Extended ReleaseIndications: ASCVD (arteriosclerotic cardiovascular disease) TAKE ONE TABLET [...] ANTICOAGULATION PHARMACIST 135 Tablet 2 3 Active oxyCODONE-Acetamino phen 10-325 MG Oral TabletIndications:P ain Take 1 Tablet by mouth every 6 hours as needed for Pain, Severe. 120 Tablet 0 3 Active Omeprazole 20 MG Oral Capsule [...] MG Oral Tablet Extended Release 24 Hour (Imdur)Indications: CHOUDHARY (dyspnea on exertion) TAKE ONE TABLET BY [...] the evening. 90 Tablet 1 3 Active documented as of this encounter (statuses as of 06/12/2023) Active Problems Problem Noted Date Diagnosed Date [...] SGLT2 Inhibitor: none Remote Patient Monitoring Vendor: [facility] Device(s): Connected Scale Self - Management Plan [...] 12/22/13 Steve Hooker III, MD [facility] [place] Facet arthropathy, lumbar 10/07/2013 Type 2 diabetes [...] as of this encounter (statuses as of 06/12/2023) Resolved Problems Problem Noted Date Diagnosed Date [...] as of this encounter (statuses as of 06/12/2023) Immunizations Name Administration Dates Next Due COVID-19 mRNA, LNP-s, No Pre serve, 2-Dose Series (Pfizer) 06/01/2021,10/15/2020,09/24/2020 Covid-19, Mrna, Lnp-s, Pf, B ivalent, [...] on file documented as of this encounter Progress Notes * Lea Campos CPhT - 06/12/2023 11:50 AM EST Contacts Type Contact Phone/Fax 06/12/2023 11:48 AM EST Phone (Outgoing) RUFINO BARRIENTOS (Emergency Contact) [phone] Left Message Subjective Advised patient to contact Anticoagulation Clinic if any unusual bruising or bleeding, recent illness, changes in medication, or questions/concerns. PT/INR results, Coumadin dose instructions, and next PT/INR date communicated as noted by Pharmacist: Yes Lea Campos CPhT 06/12/2023, 11:50 AM * Lea Espana [facility] - 06/12/2023 9:10 AM EST Coumadin Clinic (region specific) Objective Current Warfarin Dose As of 06/12/2023 Warfarin maintenance plan: 6 mg (4 mg x 1.5) every Mon; 4 mg (4 mg x 1) all other days INR Result As of 06/12/2023 INR goal: 2.0-3.0 INR used for dosin.1 (06/11/2023) Assessment & Plan Warfarin Plan As of 06/12/2023 Full warfarin instructions: 6 mg every Mon; 4 mg all other days No change documented: Lea Espana RPh Next INR check: 06/25/2023 Repeat PT/INR in 2 week(s) Weekly dose: not changed Additional Dosing Information: Description GML - Call Rufino with results/dosing Amiodarone decreased 01/2021 Tech to contact patient with dose instructions as noted. Lea Espana RPh 06/12/2023, 9:10 AM documented in this encounter Plan of Treatment Upcoming Encounters Date Type Department Care Team (Late st Contact Info) Description 06/25/2023 8:40 AM EST Laboratory Lab Mobile Phlebotomy [facility] [address] [place] [address] [facility] Mobile Home Draw [address] [place] [address] 06/26/2023 6:00 AM EST Anticoagulation Pharmacy Call Center [phone] [place] [address] [facility] [address] [place] [address] Health Maintenance Due Date Last Done Comments Hepatitis B (1 of 3 - Risk 3-dose series) 1997 Depression Screening 09/16/2019 09/15/2018 Diabetic Foot Exam 09/12/2021 09/12/2020, 0 12/09/2019, 01/07/2019, Additional history exists *BISPHONATE OR OTHER ACCEPTABLE MEDICATION NEEDED FOR OSTEOPOROSIS (REFER TO SMARTSET #1146) 02/17/2022 Albumin/Creatinine Ratio 07/27/20222 022, 01/15/2020, 04/07/2019, Additional history exists COVID-19 Vaccine ( season) 2023 07/12/2022, 06/01/2021, 10/15/2020, Additional history exists CKD PHOS USE SMARTSET 09459 03/02/202302/15, 07/04/2021, 09/12/2020, Additional history exists HbA1c 05/29/2023 11/27/2022, 10/17, 07/25/2021, Additional history exists CKD HGB USE SMARTSET 40610 12/18/202312/17, 12/17/2022, 11/27/2022, Additional history exists DXA Scan 12/27/2023 12/26/2021, 05/17, 05/26/2014, Additional history exists Diabetic Eye Exam 06/07/2024 06/07/2023, , 01/13/2021, Additional history exists DTaP,Tdap,and Td Vaccines (2 - Td or Tdap) 02/01/2025 02/01/2015, 11/20/2007, 09/21/1998 Pneumococcal Vaccine: 65+ Years Completed 08/04/2014, 12/29/2009 Zoster Vaccines Completed 11/14/2018, 10/15, 05/30/2018, Additional history exists VITAMIN D LEVEL ONCE IN A LIFETIME-USE SMARTSET# 13386 Completed 07/04/2021, 09/12/2020, 01/11/2020, Additional history exists [...] as of this encounter Visit Diagnoses Diagnosis Anticoagulation management encounter- Primary Encounter for therapeutic drug monitoring documented in this encounter Advance Directives Latest [...] and were consensually agreed upon. Care Teams Hospital Receptionist Relationship Specialty Start Date End Date Steve Hooker III, MD [address] [facility] [place] [facility] [place] [address] PCP - General 01/30/1996 documented as of this encounter
--- OUTSIDE RECORDS SUMMARY | 2023-06-27 02:51 | External Medical Summary | Summary of Care ---
Author Name Unknown Organization [facility] Address [address] [place] [address] Phone [phone] Care Team Providers Care Gritting Machine Operator Name Role Phone Nhung LOPEZ MD, John E Primary Care Provider [phone] Encounter Details Date Type Department Care Team (Late st Contact Info) Description 06/11/2023 Orders Only Family Practice [facility] [place] [address] [place] [address] Steve Hooker III, MD [address] [facility] [place] [address] Allergies Active Allergy Reactions Criticality Noted Date Comments Adhesive Tape 07/05/2022 Doxycycline Nausea/vomiting 11/03/2010 Metoclopramide Hcl Neuro complications (Please comment) 12/07/2010 Developed worsening tremor and lip smacking. Naproxen 01/23/2012 Can not tolerate-gets very emotional and depressed documented as of this encounter (statuses as of 06/11/2023) Medications Medication Sig Dispensed Refills Start Date [...] hemoglobin A1c goal of less than 8.0% ([facility]) Use to test once daily DX E11.9 100 Each 3 1 Active Biotin 52613 MCG Oral Tablet Take 1 Tablet by [...] as of this encounter (statuses as of 06/11/2023) Active Problems Problem Noted Date Diagnosed Date [...] SGLT2 Inhibitor: none Remote Patient Monitoring Vendor: [facility] Device(s): Connected Scale Self - Management Plan [...] 12/22/13 Steve Hooker III, MD [facility] [place] Facet arthropathy, lumbar 10/07/2013 Type 2 diabetes [...] as of this encounter (statuses as of 06/11/2023) Resolved Problems Problem Noted Date Diagnosed Date [...] as of this encounter (statuses as of 06/11/2023) Immunizations Name Administration Dates Next Due COVID-19 mRNA, LNP-s, No Pre serve, 2-Dose Series ([employer]o) 06/01/2021,10/15/2020,09/24/2020 Covid-19, Mrna, Lnp-s, Pf, B ivalent, [...] on file documented as of this encounter Plan of Treatment Upcoming Encounters Date Type Department Care Team (Latest Contact Info) Description 06/11/2023 9:30 AM EST Laboratory Lab Mobile Phlebotomy [facility] [place] [place] [address] [place] [address] [facility], [facility] Mobile Home Draw [address] [place] [address] rodent exterminator current use of anticoagulant therapy 06/13/2023 6:00 AM EST Anticoagulation Pharmacy Call Center WB [phone] Public [place] [address] [facility] [address] [facility] [place] [address] Health Maintenance Due Date Last Done Comments [...] Additional history exists CKD PHOS USE SMARTSET 30685 03/02/202302/15, 07/04/2021, 09/12/2020, Additional history exists HbA1c 05/29/2023 11/27/2022, 10/17, 07/25/2021, Additional history exists CKD HGB USE SMARTSET 66574 12/18/202312/17, 12/17/2022, 11/27/2022, Additional history exists DXA Scan 12/27/2023 12/26/2021, 05/17, 05/26/2014, Additional history exists Diabetic Eye Exam 06/11/2024 06/07/2023, , 01/13/2021, Additional history exists DTaP,Tdap,and Td Vaccines (2 - Td or Tdap) 02/01/2025 02/01/2015, 11/20/2007, 09/21/1998 Pneumococcal Vaccine: 65+ Years Completed 08/04/2014, 12/29/2009 Zoster Vaccines Completed 11/14/2018, 10/15, 05/30/2018, Additional history exists VITAMIN D LEVEL ONCE IN A LIFETIME-USE SMARTSET# 60672 Completed 07/04/2021, 09/12/2020, 01/11/2020, Additional history exists Influenza Vaccine (FLU shot) Completed , 07/10/2022, 03/27/2021, Additional history exists GARDASIL-HPV IMMUNIZATION SERIES Aged Out No longer eligible based on patient's age to complete this topic MENINGOCOCCAL (MENACTRA/MENVEO) Aged Out No longer eligible based on patient's age to complete this topic documented as of this encounter Medical Devices Not on filedocumented as of this encounter Procedures Procedure Name Priority Date/Time Associated Diagnosis Comments DIABETIC EYE EXAM Routine 06/07/2023 documented in this encounter Results * DIABETIC EYE EXAM (06/07/2023) 06/07/2023 History Per Patient OTHER OUTSIDE LAB (SEE SCANNED REPORT) documented in this encounter Advance Directives Latest [...] and were consensually agreed upon. Care Teams Gritting Machine Operator Relationship Specialty Start Date End Date Steve Hooker III, MD [address] [place] [address] PCP - General 01/30/1996 documented as of this encounter
--- OUTSIDE RECORDS SUMMARY | 2023-06-27 02:52 | External Medical Summary | Summary of Care ---
Author Name Unknown Organization [facility] Address [address] [place] [address] Phone [phone] Care Team Providers Care Property Controller Name Role Phone Nhung LOPEZ MD, Christiano Langston Primary Care Provider [phone] Reason for Visit * Reason Comments Medication Refill Encounter Details Date Type Department Care Team (Late st Contact Info) Description 06/03/2023 Refill Family Practice [facility] [address] [place] [address] Christiano Harkins III, MD [address] [place] [address] CHOUDHARY (dyspnea on exertion) Allergies Active Allergy Reactions Criticality Noted Date Comments Adhesive Tape 07/05/2022 Doxycycline Nausea/vomiting 11/03/2010 Metoclopramide Hcl Neuro complications (Please comment) 12/07/2010 Developed worsening tremor and lip smacking. Naproxen 01/23/2012 Can not tolerate-gets very emotional and depressed documented as of this encounter (statuses as of 06/04/2023) Medications Medication Sig Dispensed Refills Start Date [...] hemoglobin A1c goal of less than 8.0% ([facility]) Use to test once daily DX E11.9 100 Each 3 1 Active Biotin 05728 MCG Oral Tablet Take 1 Tablet by [...] AT BEDTIME 45 Tablet 2 3 Active Torsemide 20 MG Oral Tablet (Demadex) Take 1 Tablet by mouth in the morning and 1 Tablet in the evening. 90 Tablet 1 3 Active Metoprolol Succinate ER 25 MG [...] ANTICOAGULATION PHARMACIST 135 Tablet 2 3 Active oxyCODONE-Acetamin ophen 10-325 MG Oral [...] (Lipitor) TAKE ONE TABLET BY MOUTH EVERY MORNING 100 Tablet 3 3 Active levETIRAcetam 500 MG Oral Tablet (Keppra) Take 1 Tablet by mouth in the morning and 1 Tablet before bedtime. 180 Tablet 1 3 Active Isosorbide Mononitrate ER 30 MG Oral Tablet Extended Release 24 Hour (Imdur)Indications :CHOUDHARY (dyspnea on exertion) TAKE ONE TABLET BY MOUTH EVERY DAY IN THE MORNING 90 Tablet 2 3 06/03/20 23 Discontinu ed(Refill) Atorvastatin Calcium 40 MG Oral Tablet (Lipitor) TAKE ONE TABLET BY MOUTH EVERY MORNING 90 Tablet 1 3 06/03/20 23 Discontinu ed(Refill) documented as of this encounter (statuses as of 06/04/2023) Active Problems Problem Noted Date Diagnosed Date [...] SGLT2 Inhibitor: none Remote Patient Monitoring Vendor: [facility] Device(s): Connected Scale Self - Management Plan [...] MEDICATION USE AGREEMENT 06/22/2014 Overview: Signed 12/22/13 Christiano Harkins III, MD [facility] [place] Facet arthropathy, lumbar 10/07/2013 Type 2 diabetes [...] as of this encounter (statuses as of 06/04/2023) Resolved Problems Problem Noted Date Diagnosed Date Resolved Date Hypothyroidism 09/12/2020 11/08/2021 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 07/06/2020 0508/2020 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 [...] as of this encounter (statuses as of 06/04/2023) Immunizations Name Administration Dates Next Due COVID-19 mRNA, LNP-s, No Pre serve, 2-Dose Series ([employer]) 06/01/2021,10/15/2020,09/24/2020 Covid-19, Mrna, Lnp-s, Pf, B ivalent, [...] encounter Miscellaneous Notes * Telephone Encounter - Stefanie Pfeiffer, [facility] - 06/04/2023 1:55 PM ESTSigned Prescriptions: Disp Refills Isosorbide Mononitrate ER 30 MG Oral Table*100 Ta*3 Sig: TAKE ONE TABLET BY MOUTH EVERY DAY IN THE MORNINGAuthorizing Provider: CHRISTIANO HARKINS III User: STEFANIE PFEIFFER Atorvastatin Calcium 40 MG Oral Tablet (Li*100 Ta*3 Sig: TAKE ONE TABLET BY MOUTH EVERY MORNINGAuthorizing Provider: CHRISTIANO HARKINS III User: STEFANIE PFEIFFER documented in this encounter Plan of Treatment Upcoming Encounters Date Type Department Care Team (Late st Contact Info) Description 06/11/2023 9:30 AM EST Laboratory Lab Mobile Phlebotomy [facility] [address] [place] [address] [facility], [facility] Mobile Home Draw [address] [place] [address] 06/13/2023 6:00 AM EST Anticoagulation Pharmacy Call Center [address] [place] [address] [facility], [facility] [address] [place] [address] Health Maintenance Due Date Last Done Comments Hepatitis B (1 of 3 - Risk 3-dose series) 1997 Depression Screening 09/16/2019 09/15/2018 Diabetic Foot Exam 09/12/2021 09/12/2020, 0 12/09/2019, 01/07/2019, Additional history exists *BISPHONATE OR OTHER ACCEPTABLE MEDICATION NEEDED FOR OSTEOPOROSIS (REFER TO SMARTSET #1146) 02/17/2022 Albumin/Creatinine Ratio 07/27/20222 022, 01/15/2020, 04/07/2019, Additional history exists COVID-19 Vaccine () 02/15/2023 07/12/2022, 06/01/2021, 10/15/2020, Additional history exists CKD PHOS USE SMARTSET 91624 03/02/202302/15, 07/04/2021, 09/12/2020, Additional history exists HbA1c 05/29/2023 11/27/2022, 10/17, 07/25/2021, Additional history exists Diabetic Eye Exam 07/20/2023 07/20/2022, , 07/13/2019, Additional history exists CKD HGB USE SMARTSET 84586 12/18/202312/17, 12/17/2022, 11/27/2022, Additional history exists DXA Scan 12/27/2023 12/26/2021, 05/17, 05/26/2014, Additional history exists DTaP,Tdap,and Td Vaccines (2 - Td or Tdap) 02/01/2025 02/01/2015, 11/20/2007, 09/21/1998 Pneumococcal Vaccine: 65+ Years Completed 08/04/2014, 12/29/2009 Zoster Vaccines Completed 11/14/2018, 10/15, 05/30/2018, Additional history exists VITAMIN D LEVEL ONCE IN A LIFETIME-USE SMARTSET# 75068 Completed 07/04/2021, 09/12/2020, 01/11/2020, Additional history exists [...] as of this encounter Visit Diagnoses Diagnosis CHOUDHARY (dyspnea on exertion) Other dyspnea and respiratory abnormality documented in this encounter Advance Directives Latest [...] and were consensually agreed upon. Care Teams Property Controller Relationship Specialty Start Date End Date Christiano Harkins III, MD [address] [place] [address] [place] [address] PCP - General 01/30/1996 documented as of this encounter
--- OUTSIDE RECORDS SUMMARY | 2023-06-27 02:52 | External Medical Summary | Summary of Care ---
Author Name Unknown Organization [facility] Address [address] [place] [address] Phone [phone] Care Team Providers Care Drying And Winding Supervisor Name Role Phone Nhung LOPEZ MD, Christiano Langston Primary Care Provider [phone] Reason for Visit * Reason Comments Medication Refill Encounter Details Date Type Department Care Team (Late st Contact Info) Description 06/03/2023 Refill [facility] [address] [place] [address] Paul Anderson PA-C [address] [place] [address] Allergies Active Allergy Reactions Criticality Noted Date Comments Adhesive Tape 07/05/2022 Doxycycline Nausea/vomiting 11/03/2010 Metoclopramide Hcl Neuro complications (Please comment) 12/07/2010 Developed worsening tremor and lip smacking. Naproxen 01/23/2012 Can not tolerate-gets very emotional and depressed documented as of this encounter (statuses as of 06/05/2023) Medications Medication Sig Dispensed Refills Start Date [...] goal of less than 8.0% ([facility]) Use to test once daily DX E11.9 100 Each 3 1 Active Biotin 82240 MCG Oral Tablet Take 1 Tablet by [...] the evening. 90 Tablet 1 3 Active Torsemide 20 MG Oral Tablet (Demadex) Take 1 Tablet by mouth in the morning and 1 Tablet in the evening. 90 Tablet 1 3 06/03/20 23 Discontinu ed(Refill) documented as of this encounter (statuses as of 06/05/2023) Active Problems Problem Noted Date Diagnosed Date [...] SGLT2 Inhibitor: none Remote Patient Monitoring Vendor: [facility] Device(s): Connected Scale Self - Management Plan [...] 12/22/13 Christiano Harkins III, MD [facility] [place] Facet arthropathy, lumbar 10/07/2013 Type 2 diabetes [...] as of this encounter (statuses as of 06/05/2023) Resolved Problems Problem Noted Date Diagnosed Date [...] chronic kidney disease and hypertension 03/11/2018 06/26/19 23 Inflammatory spondylopathy of lumbar region 09/05/2017 11/21/2022 [...] as of this encounter (statuses as of 06/05/2023) Immunizations Name Administration Dates Next Due COVID-19 mRNA, LNP-s, No Pre serve, 2-Dose Series ([employer]up) 06/01/2021,10/15/2020,09/24/2020 Covid-19, Mrna, Lnp-s, Pf, B ivalent, [...] encounter Miscellaneous Notes * Telephone Encounter - Christiano Harkins III, MD - 06/05/2023 7:42 AM ESTSigned Prescriptions: Disp Refills Torsemide 20 MG Oral Tablet (Demadex) 90 Tab*1 Sig: Take 1 Tablet by mouth in the morning and 1 Tablet in the evening. Authorizing Provider: CHRISTIANO HARKINS III * Telephone Encounter - Jeni Alicea LPN - 06/04/2023 3:55 PM ESTPending Prescriptions: Disp Refills Torsemide 20 MG Oral Tablet (Demadex) 90 Tab*1 Sig: Take 1 Tablet by mouth in the morning and 1 Tablet in the evening. * Telephone Encounter - Urbano Parham [facility] - 06/04/2023 7:49 AM EST Pending Prescriptions: Disp Refills Torsemide 20 MG Oral Tablet (Demadex) 90 Tab*1 Sig: Take 1 Tablet by mouth in the morning and 1 Tablet in the evening. documented in this encounter Plan of Treatment Upcoming Encounters Date Type Department Care Team (Late st Contact Info) Description 06/11/2023 9:30 AM EST Laboratory Lab [place] [facility] [address] [place] [address] [facility], [facility] Mobile Home Draw [address] [place] [address] 06/13/2023 6:00 AM EST Anticoagulation Pharmacy Call Center [phone] [facility] [place] [address] [facility] [address] [place] [address] Health Maintenance Due Date Last Done Comments [...] Additional history exists CKD PHOS USE SMARTSET 75100 03/02/202302/15, 07/04/2021, 09/12/2020, Additional history exists HbA1c 05/29/2023 11/27/2022, 10/17, 07/25/2021, Additional history exists Diabetic Eye Exam 07/20/2023 07/20/2022, , 07/13/2019, Additional history exists CKD HGB USE SMARTSET 31346 12/18/202312/17, 12/17/2022, 11/27/2022, Additional history exists DXA Scan 12/27/2023 12/26/2021, 05/17, 05/26/2014, Additional history exists DTaP,Tdap,and Td Vaccines (2 - Td or Tdap) 02/01/2025 02/01/2015, 11/20/2007, 09/21/1998 Pneumococcal Vaccine: 65+ Years Completed 08/04/2014, 12/29/2009 Zoster Vaccines Completed 11/14/2018, 10/15, 05/30/2018, Additional history exists VITAMIN D LEVEL ONCE IN A LIFETIME-USE SMARTSET# 78099 Completed 07/04/2021, 09/12/2020, 01/11/2020, Additional history exists Influenza Vaccine (FLU shot) Completed , 07/10/2022, 03/27/2021, Additional history exists GARDASIL-HPV IMMUNIZATION SERIES Aged Out No longer eligible based on patient's age to complete this topic MENINGOCOCCAL (MENACTRA/MENVEO) Aged Out No longer eligible based on patient's age to complete this topic documented as of this encounter Medical Devices Not on filedocumented as of this encounter Advance Directives Latest Code Status [...] and were consensually agreed upon. Care Teams Drying And Winding Supervisor Relationship Specialty Start Date End Date Christiano Harkins III, MD [address] [place] [address] PCP - General 01/30/1996 documented as of this encounter
--- OUTSIDE RECORDS SUMMARY | 2023-06-27 02:52 | External Medical Summary ---
Author Name Unknown Address Unknown Organization [id number]:[facility] [place] [address] Laboratory Report Ordering Provider Test Date Status LOURDES DE GUZMAN 05/30/2023 11:20:41 Final Standing order for pt/inr. < br/>Please draw pt/inr every 1 to 4 weeks as requested
Results to [facility]

Warfarin Therapy
INR: 2.0-3.0 conventional anticoagulation
INR: 2.5-3.5 high intensity anticoagulation Observation Date Value Abnormality Reference (Units ) Status PT 05/30/2023 11:20:41 17.8 Above high normal 11 .6-15.2 (seconds) Final INR 05/30/2023 11:20:41 1.4 Above high normal 0. 8-1.2 Final Performing Location [facility] [place] [address]
--- OUTSIDE RECORDS SUMMARY | 2023-06-27 02:52 | External Medical Summary | Summary of Care ---
Author Name Unknown Organization [facility] Address [address] [place] [address] Phone [phone] Care Team Providers Care Color Mixer Name Role Phone Nhung LOPEZ MD, Steve Langston Primary Care Provider [phone] Encounter Details Date Type Department Care Team (Late st Contact Info) Description 06/07/2023 Result Scan Unspecified Department Adam Magallanes MD [address] [place] [address] <No scans attached> Allergies Active Allergy Reactions Criticality Noted Date Comments Adhesive Tape 07/05/2022 Doxycycline Nausea/vomiting 11/03/2010 Metoclopramide Hcl Neuro complications (Please comment) 12/07/2010 Developed worsening tremor and lip smacking. 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 DM peripheral angiopathy 05/26/2023 Advanced care planning/counseling discussion Last Assessment & Plan: -patient does not have living will in writing -would like to make decisions based on the circumstances of the situation -encouraged patient and family to fill out documentation left by IMER GONSALEZ Unspecified dementia, unspec ified severity, without behavioral [...] Inhibitor: none Remote Patient Monitoring Vendor: [facility] [place] Device(s): Digital River Scale Self - Management Plan Double dose [...] 12/22/13 Steve Hooker III, MD [facility] Facet arthropathy, lumbar 10/07/2013 Type 2 diabetes [...] as of this encounter (statuses as of 06/07/2023) Resolved Problems Problem Noted Date Diagnosed Date [...] 07/13 Overview: Per HTN Taxonomy. Mixed dyslipidemia 9 Overview: Per Lipid Taxonomy. Polymyalgia rheumatica 06/30 DEEP PHLEBITIS-LEG NEC 05/04 BENIGN NEOPLASM LG BOWEL documented as of this encounter (statuses as of 06/07/2023) Immunizations Name Administration Dates Next Due COVID-19 mRNA, LNP-s, No Pre serve, 2-Dose Series (Armut) 06/01/2021,10/15/2020,09/24/2020 Covid-19, Mrna, Lnp-s, Pf, B ivalent, [...] 9:30 AM EST Laboratory Lab Mobile Phlebotomy [facility] [address] [place] [address] [facility], [facility] Mobile Home Draw [address] [place] [address] 06/13/2023 6:00 AM EST Anticoagulation Pharmacy Call Center [address] [place] [address] [facility] [address] [place] [address] Health Maintenance Due Date Last Done Comments [...] Additional history exists CKD PHOS USE SMARTSET 87013 03/02/202302/15, 07/04/2021, 09/12/2020, Additional history exists HbA1c 05/29/2023 11/27/2022, 10/17, 07/25/2021, Additional history exists Diabetic Eye Exam 07/20/2023 07/20/2022, , 07/13/2019, Additional history exists CKD HGB USE SMARTSET 78843 12/18/202312/17, 12/17/2022, 11/27/2022, Additional history exists DXA Scan 12/27/2023 12/26/2021, 05/17, 05/26/2014, Additional history exists DTaP,Tdap,and Td Vaccines (2 - Td or Tdap) 02/01/2025 02/01/2015, 11/20/2007, 09/21/1998 Pneumococcal Vaccine: 65+ Years Completed 08/04/2014, 12/29/2009 Zoster Vaccines Completed 11/14/2018, 10/15, 05/30/2018, Additional history exists VITAMIN D LEVEL ONCE IN A LIFETIME-USE SMARTSET# 84975 Completed 07/04/2021, 09/12/2020, 01/11/2020, Additional history exists [...] Procedure Name Priority Date/Time Associated Diagnosis Comments CARDIOLOGY SCANNED RESULT 06/07/2023 documented in this encounter Results * CARDIOLOGY SCANNED RESULT (06/07/2023) 06/07/2023 Adam Magallanes MD OTHER documented in this encounter Advance Directives Latest [...] and were consensually agreed upon. Care Teams Color Mixer Relationship Specialty Start Date End Date Steve Hooker III, MD [address] [place] [address] PCP - General 01/30/1996 documented as of this encounter
--- OUTSIDE RECORDS SUMMARY | 2023-06-27 02:52 | External Medical Summary | Summary of Care ---
Author Name Unknown Organization [facility] Address [address] [place] [address] Phone [phone] Care Team Providers Care Color Sprayer Name Role Phone Nhung LOPEZ MD, Steve Langston Primary Care Provider [phone] Reason for Visit * Reason Comments Dosage Adjustment Via Phone (anticoag Cl inic) Encounter Details Date Type Department Care Team (Latest Contact Info) Description 05/31/2023 6:00 AM [facility] Anticoagulation Pharmacy Call Center [facility] [phone] [facility] [address] [facility] [address] [facility] [place] [address] Anticoagulation management encounter* Allergies Active Allergy Reactions Criticality Noted Date Comments Adhesive Tape 07/05/2022 Doxycycline Nausea/vomiting 11/03/2010 Metoclopramide Hcl Neuro complications (Please comment) 12/07/2010 Developed worsening tremor and lip smacking. Naproxen 01/23/2012 Can not tolerate-gets very emotional and depressed documented as of this encounter (statuses as of 05/31/2023) Medications Medication Sig Dispensed Refills Start Date [...] E11.9 100 Each 3 1 Active Biotin 22418 MCG Oral Tablet Take 1 Tablet by [...] Taking 1 tab daily, Reported on 03/13/2023 Isosorbide Mononitrate ER 30 MG Oral Tablet Extended Release 24 Hour (Imdur)Indications: CHOUDHARY (dyspnea on exertion) TAKE ONE TABLET BY MOUTH EVERY DAY IN THE MORNING 90 Tablet 2 3 08/26/19 24 Active Atorvastatin Calcium 40 MG Oral Tablet (Lipitor) TAKE ONE TABLET BY MOUTH EVERY MORNING 90 Tablet 1 3 12/25/19 24 Active Vitamin D 50 MCG (2000 UT) Oral Tablet Take 2,000 Units by mouth in the morning. 0 Active traZODone HCl 50 MG Oral Tablet (Desyrel) TAKE 1/2 TABLET BY MOUTH AT BEDTIME 45 Tablet 2 3 Active levETIRAcetam 500 MG Oral Tablet [...] managing provider. 1 Each 0 3 Active documented as of this encounter (statuses as of 05/31/2023) Active Problems Problem Noted Date Diagnosed Date [...] SGLT2 Inhibitor: none Remote Patient Monitoring Vendor: [facility] [place] Device(s): Connected Scale Self - Management Plan [...] 12/22/13 Steve Hooker III, MD [facility] Facet arthropathy, lumbar 10/07/2013 Type 2 diabetes [...] as of this encounter (statuses as of 05/31/2023) Resolved Problems Problem Noted Date Diagnosed Date [...] as of this encounter (statuses as of 05/31/2023) Immunizations Name Administration Dates Next Due COVID-19 mRNA, LNP-s, No Pre serve, 2-Dose Series (SonicPollen) 06/01/2021,10/15/2020,09/24/2020 Covid-19, Mrna, Lnp-s, Pf, B ivalent, [...] Progress Notes * Lea Campos CPhT - 05/31/2023 8:44 AM EST Contacts Type Contact Phone/Fax 05/31/2023 08:41 AM EST Phone (Outgoing) RUFINO BARRIENTOS (Emergency Contact) [phone] Left Message Subjective Advised patient to contact Anticoagulation Clinic if any unusual bruising or bleeding, recent illness, changes in medication, or questions/concerns. PT/INR results, Coumadin dose instructions, and next PT/INR date communicated as noted by Pharmacist: Yes Lea Campos CPhT 05/31/2023, 8:44 AM * Lea Espana [facility] - 05/31/2023 7:47 AM EST Images from the original note were not included. Coumadin Clinic (region specific) Objective Current Warfarin Dose As of 05/31/2023 Warfarin maintenance plan: 4 mg (4 mg x 1) every day INR Result As of 05/31/2023 INR goal: 2.0-3.0 INR used for dosin.4 (05/30/2023) Assessment & Plan Warfarin Plan As of 05/31/2023 Full warfarin instructions: 05/31: 8 mg; Otherwise 6 mg every Mon; 4 mg all other days Next INR check: 06/12/2023 Repeat PT/INR in 1.5 week(s) Weekly dose: increased Additional Dosing Information: Description [facility] - Call Rufino with results/dosing Amiodarone decreased 01/2021 Tech to contact patient with dose instructions as noted. Lea Espana RPh 05/31/2023, 7:47 AM documented in this encounter Plan of Treatment Upcoming Encounters Date Type Department Care Team (Late st Contact Info) Description 06/11/2023 9:30 AM EST Laboratory Lab Mobile Phlebotomy [facility] [address] [place] [address] [facility] [place] [place], [facility] Mobile Home Draw [address] [place] [address] Health Maintenance Due Date Last Done Comments [...] Additional history exists CKD PHOS USE SMARTSET 55923 03/02/202302/15, 07/04/2021, 09/12/2020, Additional history exists HbA1c 05/29/2023 11/27/2022, 05/06/2021, 07/25/2021, Additional history exists Diabetic Eye Exam 07/20/2023 07/20/2022, , 07/13/2019, Additional history exists CKD HGB USE SMARTSET 39119 12/18/202312/17, 12/17/2022, 11/27/2022, Additional history exists DXA Scan 12/27/2023 12/26/2021, 05/17, 05/26/2014, Additional history exists DTaP,Tdap,and Td Vaccines (2 - Td or Tdap) 02/01/2025 02/01/2015, 11/20/2007, 09/21/1998 Pneumococcal Vaccine: 65+ Years Completed 08/04/2014, 12/29/2009 Zoster Vaccines Completed 11/14/2018, 10/15, 05/30/2018, Additional history exists VITAMIN D LEVEL ONCE IN A LIFETIME-USE SMARTSET# 82810 Completed 07/04/2021, 09/12/2020, 01/11/2020, Additional history exists [...] were consensually agreed upon. Care Teams Color Sprayer Relationship Specialty Start Date End Date Steve Hooker III, MD [address] [place] [address] PCP - General 01/30/1996 documented as of this encounter
--- OUTSIDE RECORDS SUMMARY | 2023-06-27 02:52 | External Medical Summary | Summary of Care ---
Author Name Unknown Organization [facility] Address [address] [place] [address] Phone [phone] Care Team Providers Care Tool Filer Hand Name Role Phone Nhung LOPEZ MD, Christiano Langston Primary Care Provider [phone] Reason for Visit * Reason Comments Medication Refill Encounter Details Date Type Department Care Team (Late st Contact Info) Description 06/03/2023 Refill Family Practice [facility] [place] [address] [facility] [place] [address] Fe Perea PA-C [address] [facility] [place] [address] Allergies Active Allergy Reactions Criticality Noted Date [...] hemoglobin A1c goal of less than 8.0% ([facility]) Use to test once daily DX E11.9 100 Each 3 1 Active Biotin 75171 MCG Oral Tablet Take 1 Tablet by [...] managing provider. 1 Each 0 3 Active levETIRAcetam 500 MG Oral Tablet (Keppra) Take 1 Tablet by mouth in the morning and 1 Tablet before bedtime. 180 Tablet 1 3 Active levETIRAcetam 500 MG Oral Tablet (Keppra) Take 1 Tablet by mouth in the morning and 1 Tablet before bedtime. 180 Tablet 1 3 06/03/20 23 Discontinu ed(Refill) [...] Inhibitor: none Remote Patient Monitoring Vendor: [facility] [place] Device(s): Connected Scale Self - Management [...] 12/22/13 Christiano Harkins III, MD [facility] [place] Facet arthropathy, lumbar 10/07/2013 Type 2 diabetes [...] of inactive term Other specified glaucoma 05/05/2003 09/ HYPERTENSIVE HRT DIS NOS 09/05/2002 Overview: Per [...] mRNA, LNP-s, No Pre serve, 2-Dose Series ([employer]) 06/01/2021,10/15/2020,09/24/2020 Covid-19, Mrna, Lnp-s, Pf, B ivalent, [...] Encounter - Christiano Harkins III, MD - 06/04/2023 12:11 PM ESTSigned Prescriptions: Disp Refills levETIRAcetam 500 MG Oral Tablet (Keppra) 180 Ta*1 Sig: Take 1 Tablet by mouth in the morning and 1 Tablet before bedtime. Authorizing Provider: CHRISTIANO HARKINS III * Telephone Encounter - Marisel Chavez LPN - 06/04/2023 8:08 AM ESTPending Prescriptions: Disp Refills levETIRAcetam 500 MG Oral Tablet (Keppra) 180 Ta*1 Sig: Take 1 Tablet by mouth in the morning and 1 Tablet before bedtime. * Telephone Encounter - Marisel Chavez LPN - 06/04/2023 8:08 AM ESTPending Prescriptions: Disp Refills levETIRAcetam 500 MG Oral Tablet (Keppra) 180 Ta*1 Sig: Take 1 Tablet by mouth in the morning and 1 Tablet before bedtime. * Telephone Encounter - Marisel Chavez LPN - 06/04/2023 8:06 AM EST Pending Prescriptions: Disp Refills levETIRAcetam 500 MG Oral Tablet (Keppra) 180 Ta*1 Sig: Take 1 Tablet by mouth in the morning and 1 Tablet before bedtime. Last Visit: 08/21/2022 (in office), 11/21/2022 (telemedicine) Next Visit: Visit date not found Last date the medication was ordered: 01/23/23 Patient Active Problem List Diagnosis Code S/P angioplasty with stent Z95.820 ADVANCE DIRECTIVE INFORMATION ATHEROSCLEROTIC CORONARY DISEASE I25.10 DYSLIPIDEMIA, GOAL LDL BELOW 70 E78.5 History of tobacco use Z87.891 Hearing loss H91.90 Type 2 diabetes mellitus with hemoglobin A1c goal of less than 8.0% ([facility]) E11.9 Facet arthropathy, lumbar M47.816 MEDICATION USE AGREEMENT SK4871 Venous insufficiency I87.2 Moderate persistent asthma without complication J45.40 Spondylosis of lumbar region without myelopathy or radiculopathy M47.816 Hyperparathyroidism, 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 Gastroesophageal reflux disease without esophagitis K21.9 Unspecified open-angle glaucoma, stage unspecified H40.10X0 Cardiac pacemaker in situ Z95.0 Hemiplegia, 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[facility]) I69.359 Major depressive disorder, recurrent episode, mild ([facility]) F33.0 Paroxysmal atrial fibrillation ([facility]) I48.0 Polymyalgia rheumatica ([facility]) M35.3 Type 2 diabetes mellitus with stage 3b chronic kidney disease ([facility]) E11.22, N18.32 Hypertensive heart and kidney 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 and stage 3b chronic kidney disease ([facility]) I13.0, I50.32, N18.32 Age-related osteoporosis without current pathological fracture M81.0 Unspecified dementia, unspecified severity, without behavioral disturbance, psychotic disturbance, mood disturbance, and anxiety ([facility]) F03.90 Advanced care planning/counseling discussion Z71.89 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 DM peripheral angiopathy ([facility]) E11.51 Labs: Lab Results Component Value Date/Time CREATININE 0.7 08/21/1996 08:30 AM CREATININE - [facility] 1.4 (H) 12/17/2022 10:44 AM CREATININE - [facility] 1.5 (H) 03/23/2020 03:39 PM CREATININE MARIZA 298 03/11/2018 10:38 AM CREATININE, RANDOM URINE - [facility] 225 03/05/2022 02:33 PM CREATININE, RANDOM URINE - [facility] 357 01/15/2020 12:29 PM CREATININE-OUTSIDE LAB 1.30 (A) 06/03/2020 12:00 AM Lab Results Component Value Date/Time POTASSIUM 4.3 08/21/1996 08:30 AM POTASSIUM - [facility] 4.3 12/17/2022 10:44 AM POTASSIUM - [facility] 4.2 03/23/2020 03:39 PM POTASSIUM-OUTSIDE LAB 4.2 06/03/2020 12:00 AM Lab Results Component Value Date/Time TSH - [facility] 2.04 12/21/2021 12:27 PM TSH - [facility] 1.79 03/23/2020 03:39 PM TSH - OUTSIDE LAB 1.320 06/03/2020 12:00 AM Lab Results Component Value Date/Time LDL (CALCULATED) 111. 08/21/1996 08:30 AM LDL (DIRECT MEASURE)-OUTSIDE LAB 82 11/26/2019 12:00 AM LDL CHOLESTEROL (CALCULATED) - [facility] 65 01/14/2023 10:05 AM LDL CHOLESTEROL (CALCULATED) - [facility] 69 03/23/2020 03:39 PM LDL CHOLESTEROL (CALCULATED) - [facility] 64 03/09/2016 10:02 AM LDL CHOLESTEROL (DIRECT MEASURE) - [facility] NOT APPLICABLE 03/23/2020 03:39 PM LDL CHOLESTEROL (DIRECT MEASURE) - [facility] 102 03/09/2019 03:08 PM LDL CHOLESTEROL (DIRECT MEASURE) - [facility] 100 03/11/2018 10:33 AM Lab Results Component Value Date/Time ALT 21 08/21/1996 08:30 AM ALT - [facility] 16 12/21/2021 12:27 PM ALT - [facility] 18 03/23/2020 03:39 PM Hemoglobin AIC Results: Lab Results Component Value Date/Time HEMOGLOBIN A1C - [facility] 5.7 (H) 11/27/2022 10:55 AM HEMOGLOBIN A1C - [facility] 6.2 (H) 11/14/2021 09:36 AM HEMOGLOBIN A1C - [facility] 6.0 (H) 07/25/2021 10:09 AM HEMOGLOBIN A1C - [facility] 6.2 (H) 03/09/2019 03:08 PM HEMOGLOBIN A1C - [facility] 6.2 (H) 09/30/2018 11:49 AM HEMOGLOBIN A1C - [facility] 6.1 (H) 03/11/2018 10:33 AM HEMOGLOBIN A1C POCT - [facility] 5.6 03/27/2021 11:49 AM * Telephone Encounter - Koki [place] - 06/03/2023 9:30 PM ESTPending Prescriptions: Disp Refills levETIRAcetam 500 MG Oral Tablet (Keppra) 180 Ta*1 Sig: Take 1 Tablet by mouth in the morning and 1 Tablet before bedtime. documented in this encounter Plan of Treatment Upcoming Encounters Date Type Department Care Team (Late st Contact Info) Description 06/11/2023 9:30 AM EST Laboratory Lab Mobile Phlebotomy [facility] [address] [place] [address] [facility] [place], [facility] Mobile Home Draw [address] [place] [address] 06/13/2023 6:00 AM EST Anticoagulation Pharmacy Call Center [address] [place] [address] [facility] [address] [place] [address] Health Maintenance Due Date Last Done Comments [...] Additional history exists CKD PHOS USE SMARTSET 26892 03/02/202302/15, 07/04/2021, 09/12/2020, Additional history exists HbA1c 05/29/2023 11/27/2022, 10/17, 07/25/2021, Additional history exists Diabetic Eye Exam 07/20/2023 07/20/2022, , 07/13/2019, Additional history exists CKD HGB USE SMARTSET 20768 12/18/202312/17, 12/17/2022, 11/27/2022, Additional history exists DXA Scan 12/27/2023 12/26/2021, 05/17, 05/26/2014, Additional history exists DTaP,Tdap,and Td Vaccines (2 - Td or Tdap) 02/01/2025 02/01/2015, 11/20/2007, 09/21/1998 Pneumococcal Vaccine: 65+ Years Completed 08/04/2014, 12/29/2009 Zoster Vaccines Completed 11/14/2018, 10/15, 05/30/2018, Additional history exists VITAMIN D LEVEL ONCE IN A LIFETIME-USE SMARTSET# 05923 Completed 07/04/2021, 09/12/2020, 01/11/2020, Additional history exists [...] and were consensually agreed upon. Care Teams Tool Filer Hand Relationship Specialty Start Date End Date Christiano Harkins III, MD [address] [facility] [place] [address] PCP - General 01/30/1996 documented as of this encounter
--- OUTSIDE RECORDS SUMMARY | 2023-06-27 02:53 | External Medical Summary | Summary of Care ---
Author Name Unknown Organization [facility] Address [address] [place] [address] Phone [phone] Care Team Providers Care Information Systems Audit Manager Name Role Phone Nhung LOPEZ MD, Steve Langston Primary Care Provider [phone] Reason for Visit * Reason Comments [facility]: Telehealth Encounter Details Date Type Department Care Team ([facility] st Contact Info) Description 05/24/2023 1:30 PM EST Telemedicine [facility], [facility] [address] [place] [address] Vanessa Cullen CRNP [address] [place] [address] Lea Pace, [facility] [employer] [address], [place] [id number] Hypertensive heart and kidney 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 and stage 3b chronic kidney disease (HCC)*; Advanced care planning/counseling discussion; ATHEROSCLEROTIC CORONARY DISEASE; Paroxysmal atrial fibrillation (HCC); 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HCC); Cardiac pacemaker in situ; Type 2 diabetes mellitus with stage 3b chronic kidney disease, without long-term current use of insulin (HCC); DM peripheral angiopathy (HCC) Allergies Active Allergy Reactions Criticality Noted Date Comments Adhesive Tape 07/05/2022 Doxycycline Nausea/vomiting 11/03/2010 Metoclopramide Hcl Neuro complications (Please comment) 12/07/2010 Developed worsening tremor and lip smacking. Naproxen 01/23/2012 Can not tolerate-gets very emotional and depressed documented as of this encounter (statuses as of 05/26/2023) Medications Medication Sig Dispensed Refills Start Date [...] hemoglobin A1c goal of less than 8.0% ([facility]) Use to test once daily DX E11.9 100 Each 3 1 Active Biotin 76425 MCG Oral Tablet Take 1 Tablet by [...] managing provider. 1 Each 0 3 Active Diclofenac Sodium 1 % External Gel Apply topically to affected area once for [address] Apply [address] PLACE 4 GRAM TOPICALLY ON THE SKIN 4 TIMES A DAY TO RIGHT HIP 350 g 3 1 05/24/20 23 Discontinu ed(Medicat ion List Clean Up) oxyCODONE-Acetamin ophen 5-325 MG Oral Tablet (Percocet) Take 2 Tablets by mouth every 6 hours as needed for Pain, Moderate (Pain). Can take 1 regular strength Tylenol every 6 hours as well 240 Tablet 0 3 05/24/20 Discontinu ed(Medicat ion List Clean Up) documented as of this encounter (statuses as of 05/26/2023) Active Problems Problem Noted Date Diagnosed Date [...] SGLT2 Inhibitor: none Remote Patient Monitoring Vendor: [facility] Device(s): Connected Scale Self - Management Plan [...] 12/22/13 Steve Hooker III, MD [facility] Facet arthropathy, lumbar 10/07/2013 Type 2 diabetes [...] as of this encounter (statuses as of 05/26/2023) Resolved Problems Problem Noted Date Diagnosed Date [...] as of this encounter (statuses as of 05/26/2023) Immunizations Name Administration Dates Next Due COVID-19 mRNA, LNP-s, No Pre serve, 2-Dose Series ([facility]) 06/01/2021,10/15/2020,09/24/2020 Covid-19, Mrna, Lnp-s, Pf, B ivalent, 10 Mcg, IM, 5-11 yrs (Pfizer) 07/12/2022 H1N1 2009 Influenza, IM 06/28/2009 PPD 07/06/2022 Pneumococcal Conjugate Vacc, 13 Valent (Prevnar) 08/04/2014 Pneumococcal Polysaccharide PPV23 (Pneumovax) 12/29/2009 SEASONAL INFLUENZA, PF, 6 M & Above, IM , (FLULAVAL or FLUZONE) 03/11/2018,05/29/2017 Season Influenza, Quad, PF, Adjuvanted, 65+ Yrs, IM (FLUAD) 06/08/2020 Seasonal Influenza, Quadriva lent Hd (Fluzone Hd) [...] on file documented as of this encounter Last Filed Vital Signs Vital Sign Reading Time Taken Comments Blood Pressure 120/70 05/24/2023 1:54 PM EST Pulse 81 05/24/2023 1:54 PM EST Temperature 36.5 C (97.7 F) 05/24/2023 1:54 PM ES T Respiratory Rate - - Oxygen Saturation 95% 05/24/2023 1:54 PM EST Inhaled Oxygen Concentration - - Weight - - Height - - Body Mass Index - - documented in this encounter Progress Notes * Lea Pace [facility] [employer] [facility] - 05/24/2023 2:38 PM EST Telemedicine visit: Yes Patient location: HOME. I was in a hospital or clinic location. After connecting through televideo,patient was verified with two unique identifiers. Patient (or authorized legal dental sales representative) was then informed that this was a Telemedicine visit and being conducted confidentially over secure lines. Methods to assure confidentiality were taken. Patient acknowledged consent and understanding of pr ivacy and security of the Telemedicine visit. The patient agreed to participate. [facility] [employer] [facility] ([place]) documentation: LELAND facilitated telehealth visit with provider Vanessa Cullen- LELAND gave number for [facility] for patients daughter to call to help get services in the home Lea Bonilla [facility] [employer] [facility] [email or web address] * Vanessa Cullen CRNP - 05/24/2023 1:30 PM EST Images from the original note were not included. [facility] Problem Oriented Charting Provider Visit Date: 05/24/2023 Time: 2:01 PM [facility] Sub-Program: Focused Care Management (3-9 months) [facility] Episode Start Date: No linked episodes Assessment and Plan #1 Hypertensive heart and kidney 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 and stage 3b chronic kidney disease (HCC) (Primary) Assessment & Plan: "RED FLAG" HF Symptoms: Leg Swelling (Examples: "I can't wear certain socks or shoes", "My pants feel tight") Medication Regimen: Beta Zayra Therapy: Metoprolol Succinate (ER) MARISABEL Inhibitor/ARB Therapy: none Diuretic therapy: Torsemide SGLT2 Inhibitor: none Remote Patient Monitoring Vendor: [facility] Device(s): Connected Scale Self - Management Plan Double dose of Torsemide for 3 days Exacerbation Plan BMP Additional Comments: Stable today #2 Advanced care planning/counseling discussion #3 ATHEROSCLEROTIC CORONARY DISEASE Assessment & Plan: Followed by cardiology Continue imdur, atorvastatin, asa and metoprolol #4 Paroxysmal atrial fibrillation (HCC) Assessment & Plan: Rate controlled metoprolol Warfarin stroke prophylaxis #5 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HCC) #6 Cardiac pacemaker in situ #7 Type 2 diabetes mellitus with stage 3b chronic kidney disease, without long- term current use of insulin ([facility]) Assessment & Plan: "RED FLAG" Diabetic symptoms: Other: none Goal HgbA1c <8 Diabetic Complications Vascular (examples: PVD, PAD, CAD, CVA) Renal (example: CKD, Proteinuria, Dialysis) Medication Regimen Lifestyle Modification / Monitoring ONLY DM Secondary Prevention Moderate-High Intensity Statin Aspirin Additional Comments Stable #8 DM peripheral angiopathy ([facility]) Other orders - DIURETIC TITRATION PLAN; If no improvement on day 3, contact heart failure managing provider. Dispense: 1 Each; Refill: 0 Additional Medical Decision Making: Stable, RN to monitor. Will plan provider recheck in 8 weeks. Pt plans to keep all scheduled appts. Reports family is very supportive. Check-out note: [facility] scheduling--please schedule 8 week telemedicine recheck with Luis Armando Clemons Scheduled appointments in the next 60 days: Future Appointments-next 60 days Date/Time Provider Specialty Dept Phone 05/24/2023 1:30 PM Lea Pace, Community Health Solder Cream Maker; Vanessa Cullen CRNP [facility] [phone] A total of 22 minutes was spent face to face (via video-based telemedicine if designated as a telemedicine visit) Subjective Subjective Is this a Telemedicine Visit? Yes, Patient location: HOME. I was not in a hospital or clinic location. After connecting through televideo, patient was verified with two unique identifiers. Patient (or authorized legal dental sales representative) was then informed that this was a Telemedicine visit and being conducted confidentially over secure lines. Methods to assure confidentiality were taken. Patient acknowledged consent and understanding of privacy and security of the Telemedicine visit. The patient agreed to participate. Reason For [facility] Visit: Follow-Up 3 month Current Concerns: Rhea Diaz is a 88 year old female [facility]. PMH--hospitalized in September 2022 with mechanical fall/left hip fracture with closed reduction internal fixation, CAD, hypertension, chronic diastolic heart failure, P AFib status post TRISH guided synchronized cardioversion on antiarrhythmic therapy with amiodarone, tachy-amy syndrome status post pac emaker 2019, parietal stroke 2019, CKD 3, hyperlipidemia, dm 2, asthma, polymyalgia rheumatica, dementia She was last seen by nephrology in February 2022-felt CKD likely due to diabetic nephropathy, hypertension advanced age. Followed by Cardiology with last appointment in March Today's concerns are: Feels crappy. Does not feel sick, "I feel like this most days. Just getting to be old." Lives in home alone in one story home. Son helps with groceries. Her son stopped this am got her cereal and prepared her bowl fruit. Son stops at least 5 days a week, every day after work Independent with dressing, sponge bath--afraid to get in bathtub/shower, Has shower bench but does not feel comfortable using it. Wt--[facility]-- 05/23-165.6 05/21 166.6 05/18 167.4 Additional Review of Systems Constitutional: Negative for activity change and appetite change. Respiratory: Positive for shortness of breath (with exertion). Cardiovascular: Negative for chest pain. Gastrointestinal: Negative for constipation and diarrhea. Genitourinary: Negative for difficulty urinating. Musculoskeletal: Positive for arthralgias (since L hip fracture). Negative for gait problem and myalgias. Denies any falls since hip fracture Objective Objective Vitals: 05/24/23 1354 Temp: 36.5 C (97.7 F) Pulse: 81 SpO2: 95% BP: 120/70 Last Weights: Wt Readings from Last 10 Encounters: 04/03/23 76.4 kg (168 lb 8 oz) 12/27/22 79.4 kg (175 lb) 09/13/22 82.3 kg (181 lb 8 oz) 08/21/22 82.2 kg (181 lb 1.9 oz) 07/20/22 82 kg (180 lb 12.8 oz) 03/02/22 85 kg (187 lb 6.4 oz) 02/14/22 86.4 kg (190 lb 6.4 oz) 12/21/21 85.7 kg (189 lb) 11/08/21 86.2 kg (190 lb) 10/09/21 86.9 kg (191 lb 8 oz) ] Last BPs: BP Readings from Last 4 Encounters: 05/24/23 120/70 04/03/23 124/68 03/13/23 120/64 02/26/23 144/80 Physical Exam Vitals reviewed. Constitutional: General: She is not in acute distress. Appearance: She is not toxic-appearing. HENT: Head: Normocephalic. Cardiovascular: Comments: Unable to auscultate heart sounds Pulmonary: Effort: Pulmonary effort is normal. No respiratory distress. Breath sounds: Normal breath sounds. Musculoskeletal: Right lower leg: No edema. Left lower leg: No edema. Skin: Coloration: Skin is not pale. Neurological: General: No focal deficit present. Mental Status: She is alert. Psychiatric: Mood and Affect: Mood normal. Behavior: Behavior normal. Thought Content: Thought content normal. Judgment: Judgment normal. Lab Review: I have reviewed the following results: BMP results Recent Labs Units 12/17/22 1044 11/27/22 1055 03/02/22 1614 SODIUM - [facility] mmol/L 141 141 138 POTASSIUM - [facility] mmol/L 4.3 3.9 4.2 CHLORIDE - [facility] mmol/L 102 103 101 CO2 - [facility] mmol/L 29 27 30 CREATININE - [facility] mg/dL 1.4* 1.5* 1.3* BUN - [facility] mg/dL 22* 20 23* Lipid panel results Recent Labs Units 01/14/23 1005 CHOLESTEROL - [facility] mg/dL 144 LDL CHOLESTEROL (CALCULATED) - [facility] mg/dL 65 HDL CHOLESTEROL - [facility] mg/dL 50 TRIGLYCERIDES - [facility] mg/dL 146 CBC results Recent Labs Units 12/17/22 1044 11/27/22 1055 03/02/22 1614 WBC AUTO - [facility] K/uL 5.98 5.85 7.78 HGB - [facility] g/dL 13.6 14.1 15.2 HCT - [facility] % 43.8 44.8 46.9* PLATELET AUTO - [facility] K/uL 226 252 208 HbA1c results Recent Labs Units 11/27/22 1055 11/14/21 0936 07/25/21 1009 HEMOGLOBIN A1C - [facility] % 5.7* 6.2* 6.0* TSH results Recent Labs Units 12/21/21 1227 10/09/21 1401 TSH - [facility] uIU/mL 2.04 2.34 Vitamin D results Recent Labs Units 07/04/21 1038 25-HYDROXY VITAMIN D - [facility] ng/mL 46 Hepatic panel results Recent Labs Units 12/21/21 1227 10/09/21 1401 PROTEIN - [facility] g/dL 6.1 6.3 BILIRUBIN, TOTAL - [facility] mg/dL 0.4 0.3 ALKALINE PHOSPHATASE - [facility] U/L 117 191* AST - [facility] U/L 16 145* ALT - [facility] U/L 16 203* Protein/cr ratio results No results for input(s): "PROCRRATIO" in the last 15826 hours. Medication Review "Bottles Out" medication review performed today and medication list in EMR updated Mobility Evaluation: MAHC10 Assessment: Assistive Devices Used in the Home: Walker (standard or rollator) SDoH: NO SOCIAL DETERMINATE NEEDS IDENTIFIED Advance Care Planning Advance Care Planning Negrete Information: Aligning Care With What Matters Most: After reviewing the preceding "Discerning What Matters Most" conversation, the following decisions were discussed: Interventions/Choices:: CPR; Intubation/mechanical ventilation; Non-invasive ventilation or BIPAP; Antibiotic therapy (05/26/2023 8:34 AM) CPR decision: : Patient chooses CPR (05/26/2023 8:34 AM) Intubation/Mechanical Ventilation decision: : Patient chooses Intubation/mechanical ventilation (05/26/2023 8:34 AM) Non-invasive ventilation or BIPAP decision: : Patient chooses non-invasive ventilation. Select interventions below (12/03/2022 11:13 AM) Non-Invasive Ventilation Interventions:: NIV (12/03/2022 11:13 AM) Antibiotic therapy decision: : Patient chooses Antibiotic therapy (05/26/2023 8:34 AM) Artificial nutrition decision: : Undecided about Artificial nutrition (12/03/2022 11:13 AM) IV hydration decision: : Patient chooses IV hydration (12/03/2022 11:13 AM) Surgical procedure(s) decision: : Patient chooses Surgical procedure (12/03/2022 11:13 AM) Blood transfusion decision: : Patient chooses Blood transfusion (12/03/2022 11:13 AM) Lab draw decision: : Patient chooses Lab draws (12/03/2022 11:13 AM) Dialysis decision: : Undecided about Dialysis (12/03/2022 11:13 AM) Source: Content from [employer] Program KACI Mosley 8:58 AM *Communication sent to PCP (via [facility] if non[facility]), [facility] Care Team members,relevant Specialty Care Physicians* documented in this encounter Miscellaneous Notes * Assessment & Plan Note - Vanessa Cullen CRNP - 05/26/2023 8:47 AM EST Associated Problem(s): Unspecified dementia, unspecified severity, without behavioral disturbance, psychotic disturbance, mood disturbance, and anxiety (HCC) No medication Appropriate today--stable, no safety concerns at this time. * Assessment & Plan Note - Vanessa Cullen CRNP - 05/26/2023 8:46 AM EST Associated Problem(s): Type 2 diabetes mellitus with stage 3b chronic kidney disease (HCC) "RED FLAG" Diabetic symptoms: Other: none Goal HgbA1c <8 Diabetic Complications Vascular (examples: PVD, PAD, CAD, CVA) Renal (example: CKD, Proteinuria, Dialysis) Medication Regimen Lifestyle Modification / Monitoring ONLY DM Secondary Prevention Moderate-High Intensity Statin Aspirin Additional Comments Stable * Assessment & Plan Note - Vanesas Cullen CRNP - 05/26/2023 8:44 AM EST Associated Problem(s): Paroxysmal atrial fibrillation (HCC) Rate controlled metoprolol Warfarin stroke prophylaxis * Assessment & Plan Note - Vanessa Cullen CRNP - 05/26/2023 8:42 AM EST Associated Problem(s): Hypertensive heart and kidney 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 and stage 3b chronic kidney disease (HCC) "RED FLAG" HF Symptoms: Leg Swelling (Examples: "I can't wear certain socks or shoes", "My pants feel tight") Medication Regimen: Beta Zayra Therapy: Metoprolol Succinate (ER) MARISABEL Inhibitor/ARB Therapy: none Diuretic therapy: Torsemide SGLT2 Inhibitor: none Remote Patient Monitoring Vendor: [facility] Device(s): Connected Scale Self - Management Plan Double dose of Torsemide for 3 days Exacerbation Plan BMP Additional Comments: Stable today * Assessment & Plan Note - Vanessa Cullen CRNP - 05/26/2023 8:38 AM EST Associated Problem(s): ATHEROSCLEROTIC CORONARY DISEASE Followed by cardiology Continue imdur, atorvastatin, asa and metoprolol * ACP (Advance Care Planning) - Vanessa Cullen CRNP - 05/26/2023 8:34 AM EST Patient-centered Communication 05/26/2023 The patient/surrogate voluntarily agreed to participate in advance care planning discussion. They were advised that this is a separate service which may incur out of pocket cost in the form of copayment and/or deductibles. Location: Home Individual(s) present for conversation: Patient Decisions Synopsis SmartLink Most Recent Value Past ~10 years 05/26/2023 08:34 Decisions CPR decision: Patient chooses CPR 05/26/2023 Patient chooses CPR Intubation/Mechanical Ventilation decision: Patient chooses Intubation/mechanical ventilation 05/26/2023 Patient chooses Intubation/mechanical ventilation Non-invasive ventilation or BIPAP decision: Patient chooses non-invasive ventilation. Select interventions below 12/03/2022 Non-Invasive Ventilation Interventions: NIV 12/03/2022 Antibiotic therapy decision: Patient chooses Antibiotic therapy 05/26/2023 Patient chooses Antibiotic therapy Artificial nutrition decision: Undecided about Artificial nutrition 12/03/2022 IV hydration decision: Patient chooses IV hydration 12/03/2022 Surgical procedure(s) decision: Patient chooses Surgical procedure 12/03/2022 Blood transfusion decision: Patient chooses Blood transfusion 12/03/2022 Lab draw decision: Patient chooses Lab draws 12/03/2022 Dialysis decision: Undecided about Dialysis 12/03/2022 Additional Comments Synopsis Clixtr Most Recent Value Past ~10 years 05/26/2023 08:34 Additional Comments Additional Comments: Pt would like interventions, would not want life prolonged if no hope of recovery. 05/26/2023 Pt would like interventions, would not want life prolonged if no hope of recovery. Discerning What Matters Most to the Patient: Tink Most Recent Value Past ~10 years 12/27/2022 16:41 Discerning What Matters Most to the Patient In their own words, patient's UNDERSTANDING of their illness is: patient and family have good understanding of patients chronic medical condtions 12/27/2022 patient and family have good understanding of patients chronic medical condtions Their current SYMPTOMS include: Reduced overall well being 12/27/2022 Reduced overall well being They say their illness has CHANGED THEIR LIFE by: Less enjoyment (quality of life) 12/27/2022 Less enjoyment (quality of life) The patient thinks COMPLICATIONS in the future may be: More hospitalizations 12/27/2022 More hospitalizations The patient's HOPES are: Maintain current functional abilities 12/27/2022 Maintain current functional abilities Source: Content from [employer] Program Aligning Care With What Matters Most: Tink Most Recent Value Past ~10 years 05/26/2023 08:34 Aligning Care With What Matters Most Interventions/Choices: CPR;Intubation/mechanical ventilation;Non-invasive ventilation or BIPAP;Antibiotic therapy 05/26/2023 CPR;Intubation/mechanical ventilation;Non-invasive ventilation or BIPAP;Antibiotic therapy Rationale for Decisions Source: Content from [employer] Cho[employer] Program 15 minutes spent in direct [id number] discussion today, KACI Mosley documented in this encounter Plan of Treatment Upcoming Encounters Date Type Department Care Team (Late st Contact Info) Description 05/30/2023 8:40 AM EST Laboratory Lab [place] [facility] [address] [place] [address] [facility] [place] Mobile Home Draw [address] [place] [address] 05/31/2023 6:00 AM EST Anticoagulation Pharmacy Call Center [phone] [place] [address] [facility], [facility] [address] [place] [address] Health Maintenance Due Date Last Done Comments [...] Additional history exists CKD PHOS USE SMARTSET 49927 03/02/202302/15, 07/04/2021, 09/12/2020, Additional history exists HbA1c 05/29/2023 11/27/2022, 10/17, 07/25/2021, Additional history exists Diabetic Eye Exam 07/20/2023 07/20/2022, , 07/13/2019, Additional history exists CKD HGB USE SMARTSET 14558 12/18/202312/17, 12/17/2022, 11/27/2022, Additional history exists DXA Scan 12/27/2023 12/26/2021, 05/17, 05/26/2014, Additional history exists DTaP,Tdap,and Td Vaccines (2 - Td or Tdap) 02/01/2025 02/01/2015, 11/20/2007, 09/21/1998 Pneumococcal Vaccine: 65+ Years Completed 08/04/2014, 12/29/2009 Zoster Vaccines Completed 11/14/2018, 10/15, 05/30/2018, Additional history exists VITAMIN D LEVEL ONCE IN A LIFETIME-USE SMARTSET# [id number] Completed 07/04/2021, 09/12/2020, 01/11/2020, Additional history exists [...] as of this encounter Visit Diagnoses Diagnosis Hypertensive heart and kidney 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 and stage 3b chronic kidney disease (HCC)- Primary Advanced care planning/counseling discussion Other specified counseling ATHEROSCLEROTIC CORONARY DISEASE Unspecified cardiovascular disease Paroxysmal atrial fibrillation (HCC) Atrial fibrillation 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HCC) Sinoatrial node dysfunction Cardiac pacemaker in situ Type 2 diabetes mellitus with stage 3b chronic kidney disease, without long-term current use of insulin (HCC) DM peripheral angiopathy (HCC) Type II or unspecified type diabetes mellitus with peripheral circulatory disorders, not stated as uncontrolled documented in this encounter Advance Directives Latest [...] and were consensually agreed upon. Care Teams Information Systems Audit Manager Relationship Specialty Start Date End Date Nhung III, Steve E, MD [address] [facility] [place] [address] PCP - General 01/30/1996 documented as of this encounter
--- OUTSIDE RECORDS SUMMARY | 2023-06-27 02:53 | External Medical Summary | Summary of Care ---
Author Name Unknown Organization [facility] Address [address] [place] [address] Phone [phone] Care Team Providers Care Quality Measurement Specialist Name Role Phone Nhugn LOPEZ MD, Steve Langston Primary Care Provider [phone] Reason for Visit * Reason Comments Dosage Adjustment Via Phone (anticoag Cl inic) Encounter Details Date Type Department Care Team (Latest Contact Info) Description 05/15/2023 6:00 AM EST Anticoagulation Pharmacy Call Center [phone] [place] [address] [facility], [facility] [address] [facility] [place] [address] Atrial fibrillation with RVR ([facility])* Allergies Active Allergy Reactions Criticality Noted Date Comments Adhesive Tape 07/05/2022 Doxycycline Nausea/vomiting 11/03/2010 Metoclopramide Hcl Neuro complications (Please comment) 12/07/2010 Developed worsening tremor and lip smacking. Naproxen 01/23/2012 Can not tolerate-gets very emotional and depressed documented as of this encounter (statuses as of 05/15/2023) Medications Medication Sig Dispensed Refills Start Date [...] DX E11.9 100 Each 3 1 Active Diclofenac Sodium 1 % External Gel Apply topically to affected area once for [address] 4 GRAM TOPICALLY ON THE SKIN 4 TIMES A DAY TO RIGHT HIP 350 g 3 1 Active Biotin 12023 MCG Oral Tablet Take 1 Tablet by mouth daily. 0 Active OneTouch Ultra Blue In Vitro Strip (Glucose Blood) Use to test once daily DX E11.9 100 Strip 3 2 Active Cetirizine HCl 10 MG Oral Tablet Take 1 Tablet by mouth in the morning. 0 3 Active Omeprazole 20 MG Oral Capsule Delayed Release (PriLOSEC) TAKE ONE CAPSULE BY MOUTH IN THE MORNING. 30 MINUTES BEFORE THE FIRST MEAL OF THE DAY 100 Capsule 1 3 12/08/19 24 Active DULoxetine HCl 60 MG Oral Capsule [...] by mouth in the morning. 0 Active oxyCODONE-Acetamino phen 5-325 MG Oral Tablet (Percocet) Take 2 Tablets by mouth every 6 hours as needed for Pain, Moderate (Pain). Can take 1 regular strength Tylenol every 6 hours as well 240 Tablet 0 3 Active traZODone HCl 50 MG Oral Tablet [...] 54 g 1 3 04/12/20 24 Active oxyCODONE-Acetamino phen 10-325 MG Oral TabletIndications:P ain Take 1 Tablet by mouth every 6 hours as needed for Pain, Severe. 120 Tablet 0 3 Active Warfarin Sodium 4 MG Oral Tablet (Coumadin) Take 1 to 1&1/2 tablets daily as directed by anticoagulation pharmacist 135 Tablet 2 3 Active documented as of this encounter (statuses as of 05/15/2023) Active Problems Problem Noted Date Diagnosed Date Advanced care planning/counseling discussion Last Assessment & Plan: -patient does not have living will in writing -would like to make decisions based on the circumstances of the situation -encouraged patient and family to fill out documentation left by RN CM Unspecified dementia, unspec ified severity, without behavioral disturbance, psychotic disturbance, mood disturbance, and anxiety 07/20/2022 Last Assessment & Plan: Stable, interactive today Age-related osteoporosis wit hout current pathological fracture 02/14/2022 Hemiplegia, 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, recurrent episode, mi ld 07/19/2021 Paroxysmal atrial fibrillation 07/19/2021 Last Assessment & Plan: Amiodarone, coumadin Polymyalgia rheumatica 07/19/2021 Type 2 diabetes 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 07/19/2021 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 07/19/2021 Last Assessment & Plan: "RED FLAG" HF Symptoms: Leg Swelling (Examples: "I can't wear certain socks or shoes", "My pants feel tight") Abdominal Bloating (Examples: "I can't wear certain pants", "My belly feels hard", "I look ") Medication Regimen: Beta Zayra Therapy: Metoprolol Succinate (ER) MARISABEL Inhibitor/ARB Therapy: Other: imdur Diuretic therapy: Torsemide Self - Management Plan Add additional 1 tab to morning dose of Torsemide x 3 days Exacerbation Plan BMP Pro-BNP Chest X-Ray Additional Comments: Chronic diastolic heart failure 05/31/2020 Cardiac pacemaker in situ 03/25/2020 Atrial fibrillation with RVR 12/09/2019 Unspecified open-angle glaucoma, stage unspecifi ed 12/09/2019 Gastroesophageal reflux disease without esophagi tis 07/24/2019 Hyperparathyroidism, secondary renal 10/17/2018 Moderate persistent asthma without complication 03/11/2018 Last Assessment & Plan: -use albuterol MDI as needed -no recent exacerbation Spondylosis of lumbar region without myelopathy or radiculopathy 03/11/2018 Venous insufficiency 12/14/2016 MEDICATION USE AGREEMENT 06/22/2014 Overview: Signed 12/22/13 Steve Hooker III, MD [facility] Facet arthropathy, lumbar 10/07/2013 Type 2 diabetes [...] angioplasty with stent 09/05/2002 ATHEROSCLEROTIC CORONARY DISEASE documented as of this encounter (statuses as of 05/15/2023) Resolved Problems Problem Noted Date Diagnosed Date Resolved Date Hypothyroidism 09/12/2020 11/08/2021 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 07/06/202010/15 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, not intractable, without status epilepticus 07/06/2020 07/19/2021 Type 2 diabetes mellitus wit h diabetic peripheral angiopathy without gangrene 12/09/2019 0 07/19/2021 Hypertensive heart and kidne y disease with [...] as of this encounter (statuses as of 05/15/2023) Immunizations Name Administration Dates Next Due COVID-19 mRNA, LNP-s, No Pre serve, 2-Dose Series ([employer]) 06/01/2021,10/15/2020,09/24/2020 Covid-19, Mrna, Lnp-s, Pf, B ivalent, [...] Answer Date Recorded PHQ-2 Score 0 04/19/2018 Sex and Gender Information Value Date Recorded Sex Assigned at Female 09/15/2018 10:33 AM EDT Gender Identity Female 09/15/2018 10:33 AM EDT Sexual Orientation Straight 09/15/2018 10 :33 AM EDT Job Start Date Occupation Industry Not on file Not on file Not on file documented as of this encounter Progress Notes * Lea Campos CPhT - 05/15/2023 11:00 AM EST Contacts Type Contact Phone/Fax 05/15/2023 10:58 AM EST Phone (Outgoing) RUFINO BARRIENTOS (Emergency Contact) [phone] Left Message Subjective Advised patient to contact Anticoagulation Clinic if any unusual bruising or bleeding, recent illness, changes in medication, or questions/concerns. PT/INR results, Coumadin dose instructions, and next PT/INR date communicated as noted by Pharmacist: Yes Lea Campos CPhT 05/15/2023, 11:00 AM * Lea Espana RPh - 05/15/2023 8:52 AM EST Coumadin Clinic (region specific) Objective Current Warfarin Dose As of 05/15/2023 Warfarin maintenance plan: 4 mg (4 mg x 1) every day INR Result As of 05/15/2023 INR goal: 2.0-3.0 INR used for dosin.5 (05/14/2023) Assessment & Plan Warfarin Plan As of 05/15/2023 Full warfarin instructions: 4 mg every day No change documented: Lea Espana RP Next INR check: 05/21/2023 Repeat PT/INR in 1 week(s) Weekly dose: not changed Additional Dosing Information: Description GML - Call Rufino with results/dosing Amiodarone decreased 01/2021 Tech to contact patient with dose instructions as noted. Lea Espana RPh 05/15/2023, 8:52 AM documented in this encounter Plan of Treatment Upcoming Encounters Date Type Department Care Team (Late st Contact Info) Description 05/21/2023 9:10 AM EST Laboratory Lab Mobile Phlebotomy [facility] [address] [place] [address] [facility], [facility] Mobile Home Draw [address] [place] [address] 05/22/2023 6:00 AM EST Anticoagulation Pharmacy Call Center [phone] [place] [address] [facility] [address] [place] [address] 05/24/2023 1:30 PM EST Telemedicine [facility] 132 [facility] [place] [address] Vanessa Cullen CRNP [address] [place] [address] Lea Pace, Community Health Echocardiography Tech [address] [place] [address] 09/23/2023 3:30 PM EDT Office Visit Cardiology, [facility] 132 [facility] [place] [address] Adam Magallanes MD 132 [facility] [place] [address] Health Maintenance Due Date Last Done Comments [...] Additional history exists CKD PHOS USE SMARTSET 72697 03/02/202302/15, 07/04/2021, 09/12/2020, Additional history exists HbA1c 05/29/2023 11/27/2022, 10/17, 07/25/2021, Additional history exists Diabetic Eye Exam 07/20/2023 07/20/2022, , 07/13/2019, Additional history exists CKD HGB USE SMARTSET 76740 12/18/202312/17, 12/17/2022, 11/27/2022, Additional history exists DXA Scan 12/27/2023 12/26/2021, 05/17, 05/26/2014, Additional history exists DTaP,Tdap,and Td Vaccines (2 - Td or Tdap) 02/01/2025 02/01/2015, 11/20/2007, 09/21/1998 Pneumococcal Vaccine: 65+ Years Completed 08/04/2014, 12/29/2009 Zoster Vaccines Completed 11/14/2018, 10/15, 05/30/2018, Additional history exists VITAMIN D LEVEL ONCE IN A LIFETIME-USE SMARTSET# 77101 Completed 07/04/2021, 09/12/2020, 01/11/2020, Additional history exists [...] as of this encounter Visit Diagnoses Diagnosis Atrial fibrillation with RVR (HCC)- Primary Atrial fibrillation documented in this encounter Advance Directives Latest [...] and were consensually agreed upon. Care Teams Quality Measurement Specialist Relationship Specialty Start Date End Date Steve Hooker III, MD [address] [place] [address] PCP - General 01/30/1996 documented as of this encounter
--- OUTSIDE RECORDS SUMMARY | 2023-06-27 02:53 | External Medical Summary | Summary of Care ---
Author Name Unknown Organization [facility] Address [address] [place] [address] Phone [phone] Care Team Providers Care Assignment Editor Name Role Phone Nhung LOPEZ MD, Christiano Langston Primary Care Provider [phone] Reason for Visit * Reason Comments Medication Refill Encounter Details Date Type Department Care Team (Late st Contact Info) Description 05/20/2023 Refill Family Practice [facility] 200 [facility] [place] [address] Christiano Harkins III, MD 200 [facility] [address] Allergies Active Allergy Reactions Criticality Noted Date Comments Adhesive Tape 07/05/2022 Doxycycline Nausea/vomiting 11/03/2010 Metoclopramide Hcl Neuro complications (Please comment) 12/07/2010 Developed worsening tremor and lip smacking. Naproxen 01/23/2012 Can not tolerate-gets very emotional and depressed documented as of this encounter (statuses as of 05/20/2023) Medications Medication Sig Dispensed Refills Start Date [...] goal of less than 8.0% ([facility]) Use to test once daily DX E11.9 100 Each 3 1 Active Diclofenac Sodium 1 % External Gel Apply topically to affected area once for [address] GRAM TOPICALLY ON THE SKIN 4 TIMES A DAY TO RIGHT HIP 350 g 3 1 Active Biotin 44741 MCG Oral Tablet Take 1 Tablet by [...] by mouth in the morning. 0 Active oxyCODONE-Acetamin ophen 5-325 MG Oral Tablet (Percocet) [...] 100 Capsule 1 3 05/19/20 24 Active Omeprazole 20 MG Oral Capsule Delayed Release (PriLOSEC) TAKE ONE CAPSULE BY MOUTH IN THE MORNING. 30 MINUTES BEFORE THE FIRST MEAL OF THE DAY 100 Capsule 1 3 05/20/20 23 Discontinu ed(Refill) documented as of this encounter (statuses as of 05/20/2023) Active Problems Problem Noted Date Diagnosed Date [...] Plan: Stable, interactive today Age-related osteoporosis wit justine current pathological fracture 02/14/2022 Hemiplegia, post-stroke 07/19/2021 [...] 12/22/13 Christiano Harkins III, MD [facility] [place] Facet arthropathy, lumbar 10/07/2013 Type 2 diabetes [...] as of this encounter (statuses as of 05/20/2023) Resolved Problems Problem Noted Date Diagnosed Date Resolved Date Hypothyroidism 09/12/2020 11/08/2021 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 07/06/2020 05/08/2020 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 30 MINUTES BEFORE THE FIRST MEAL OF THE DAYAuthorizing Provider: CHRISTIANO HARKINS III User: CHITO CHO * Telephone Encounter - Chiot Cho RPh - 05/20/2023 1:09 PM EST Per refill protocol patient needs magnesium and vitamin B-12 labs on file within the past 2 years while using PPIs. Lab work ordered. Patient may obtain with next routine labs. Thanks, Chito Cho, PharmD Clinical Pharmacist [facility] ([facility]) [phone] 05/20/2023 1:09 PM documented in this encounter Plan of Treatment Upcoming Encounters Date Type Department Care Team (Late st Contact Info) Description 05/21/2023 9:10 AM EST Laboratory Lab Mobile Phlebotomy [facility] [address] [place] [address] [facility], [facility] Mobile Home Draw [address] [place] [address] 05/22/2023 6:00 AM EST Anticoagulation Pharmacy Call Center [address] [place] [address] [facility] [address] [place] [address] 05/24/2023 1:30 PM EST Telemedicine [facility], [facility] [address] [place] [address] Vanessa Cullen CRNP [address] [place] [address] Lea Pace, Community Health Relay Operator [address] [place] [address] Health Maintenance Due Date Last Done Comments [...] Additional history exists CKD PHOS USE SMARTSET 98771 03/02/202302/15, 07/04/2021, 09/12/2020, Additional history exists HbA1c 05/29/2023 11/27/2022, 05/3 06/2021, 07/25/2021, Additional history exists Diabetic Eye Exam 07/20/2023 07/20/2022, , 07/13/2019, Additional history exists CKD HGB USE SMARTSET 99709 12/18/202312/17, 12/17/2022, 11/27/2022, Additional history exists DXA Scan 12/27/2023 12/26/2021, 05/17, 05/26/2014, Additional history exists DTaP,Tdap,and Td Vaccines (2 - Td or Tdap) 02/01/2025 02/01/2015, 11/20/2007, 09/21/1998 Pneumococcal Vaccine: 65+ Years Completed 08/04/2014, 12/29/2009 Zoster Vaccines Completed 11/14/2018, 10/15, 05/30/2018, Additional history exists VITAMIN D LEVEL ONCE IN A LIFETIME-USE SMARTSET# 21074 Completed 07/04/2021, 09/12/2020, 01/11/2020, Additional history exists [...] and were consensually agreed upon. Care Teams Assignment Editor Relationship Specialty Start Date End Date Christiano Harkins III, MD [address] [facility] [address] PCP - General 01/30/1996 documented as of this encounter
--- OUTSIDE RECORDS SUMMARY | 2023-06-27 02:53 | External Medical Summary ---
Author Name Unknown Address Unknown Organization K01:[facility] [address] [place] [place] [address] Laboratory Report Ordering Provider Test Date Status LOURDES DE GUZMAN 05/23/2023 12:23:00 Final Standing order for pt/inr. < br/>Please draw pt/inr every 1 to 4 weeks as requested
Results to [facility]

Warfarin Therapy
INR: 2.0-3.0 conventional anticoagulation
INR: 2.5-3.5 high intensity anticoagulation Observation Date Value Abnormality Reference (Units ) Status PT 05/23/2023 12:23:00 14.2 11.6-15.2 (seconds) Final INR 05/23/2023 12:23:00 1.1 0.8-1.2 Final Performing Location [facility] [address] [place] [address]
--- OUTSIDE RECORDS SUMMARY | 2023-06-27 02:53 | External Medical Summary | Summary of Care ---
Author Name Unknown Organization [facility] Address [address] [place] [address] Phone [phone] Care Team Providers Care Commissioned Security Officer Name Role Phone Nhung LOPEZ MD, Christiano Langsotn Primary Care Provider [phone] Reason for Visit * Reason Onset Date Comments Medication Refill 05/14/2023 Encounter Details Date Type Department Care Team (Late st Contact Info) Description 05/14/2023 Refill Family Practice [facility] [place] 200 [facility] [place] [address] Christiano Harkins III, MD [address] [facility] [place] [address] Allergies Active Allergy Reactions Criticality Noted Date Comments Adhesive Tape 07/05/2022 Doxycycline Nausea/vomiting 11/03/2010 Metoclopramide Hcl Neuro complications (Please comment) 12/07/2010 Developed worsening tremor and lip smacking. Naproxen 01/23/2012 Can not tolerate-gets very emotional and depressed documented as of this encounter (statuses as of 05/14/2023) Medications Medication Sig Dispensed Refills Start Date [...] goal of less than 8.0% ([facility]) Use to test once daily DX E11.9 100 Each 3 1 Active Diclofenac Sodium 1 % External Gel Apply topically to affected area once for [address] dose. [address] 4 GRAM TOPICALLY ON THE SKIN 4 TIMES A DAY TO RIGHT HIP 350 g 3 1 Active Biotin 54740 MCG Oral Tablet Take 1 Tablet by [...] 54 g 1 3 04/12/20 24 Active oxyCODONE-Acetamin ophen 10-325 MG Oral TabletIndications: Pain Take 1 Tablet by mouth every 6 hours as needed for Pain, Severe. 120 Tablet 0 3 Active Warfarin Sodium 4 MG Oral Tablet (Coumadin) Take 1 to 1&1/2 tablets daily as directed by anticoagulation pharmacist 135 Tablet 2 3 Active Warfarin Sodium 4 MG Oral Tablet (Coumadin) Take 1 to 1&1/2 tablets daily as directed by anticoagulation pharmacist 135 Tablet 3 2 05/14/20 23 Discontinu ed(Refill) documented as of this encounter (statuses as of 05/14/2023) Active Problems Problem Noted Date Diagnosed Date [...] 12/22/13 Christiano Harkins III, MD [facility] [place] Facet arthropathy, lumbar 10/07/2013 Type 2 diabetes [...] as of this encounter (statuses as of 05/14/2023) Resolved Problems Problem Noted Date Diagnosed Date [...] as of this encounter (statuses as of 05/14/2023) Immunizations Name Administration Dates Next Due COVID-19 mRNA, LNP-s, No Pre serve, 2-Dose Series ([employer]) 06/01/2021,10/15/2020,09/24/2020 Covid-19, Mrna, Lnp-s, Pf, B ivalent, [...] encounter Miscellaneous Notes * Telephone Encounter - Jono [facility] - 05/14/2023 5:21 PM ESTSigned Prescriptions: Disp Refills Warfarin Sodium 4 MG Oral Tablet (Coumadin)135 Ta*2 Sig: Take 1 to 1&1/2 tablets daily as directed by anticoagulation pharmacistAuthorizing Provider: CHRISTIANO HARKINS III User: JONO YORK documented in this encounter Plan of Treatment Upcoming Encounters Date Type Department Care Team (Late st Contact Info) Description 05/15/2023 6:00 AM EST Anticoagulation Pharmacy Call Center [address] [place] [address] [facility] [address] 60 [facility] [place] [address] 05/24/2023 1:30 PM EST Telemedicine [facility], [facility] [address] [facility] [place] [address] Vanessa Cullen CRNP [address] [place] [address] Lea Pace, Community Health Basket Patcher [address] [place] [address] 09/23/2023 3:30 PM EDT Office Visit [facility] [place] [address] Adam Magallanes MD [address] [place] [address] Health Maintenance Due Date Last Done Comments [...] Additional history exists CKD PHOS USE SMARTSET 91727 03/02/202302/15, 07/04/2021, 09/12/2020, Additional history exists HbA1c 05/29/2023 11/27/2022, 10/17, 07/25/2021, Additional history exists Diabetic Eye Exam 07/20/2023 07/20/2022, , 07/13/2019, Additional history exists CKD HGB USE SMARTSET 16908 12/18/202312/17, 12/17/2022, 11/27/2022, Additional history exists DXA Scan 12/27/2023 12/26/2021, 05/17, 05/26/2014, Additional history exists DTaP,Tdap,and Td Vaccines (2 - Td or Tdap) 02/01/2025 02/01/2015, 11/20/2007, 09/21/1998 Pneumococcal Vaccine: 65+ Years Completed 08/04/2014, 12/29/2009 Zoster Vaccines Completed 11/14/2018, 10/15, 05/30/2018, Additional history exists VITAMIN D LEVEL ONCE IN A LIFETIME-USE SMARTSET# [id number] Completed 07/04/2021, 09/12/2020, 01/11/2020, Additional history exists [...] and were consensually agreed upon. Care Teams Commissioned Security Officer Relationship Specialty Start Date End Date Christiano Harkins III, MD [address] [facility] [place] [address] PCP - General 01/30/1996 documented as of this encounter
--- OUTSIDE RECORDS SUMMARY | 2023-06-27 02:53 | External Medical Summary | Summary of Care ---
Author Name Unknown Organization [facility] Address [address] [place] [address] Phone [phone] Care Team Providers Care Research Statistician Name Role Phone Nhung LOPEZ MD, Steve Langston Primary Care Provider [phone] Reason for Visit * Reason Comments Dosage Adjustment Via Phone (anticoag Cl inic) Encounter Details Date Type Department Care Team (Latest Contact Info) Description 05/24/2023 6:00 AM EST Anticoagulation Pharmacy Call Center [phone] [address] [address] [facility], [facility] [address] [place] [address] Atrial fibrillation with RVR ([facility])* Allergies Active Allergy Reactions Criticality Noted Date Comments Adhesive Tape 07/05/2022 Doxycycline Nausea/vomiting 11/03/2010 Metoclopramide Hcl Neuro complications (Please comment) 12/07/2010 Developed worsening tremor and lip smacking. Naproxen 01/23/2012 Can not tolerate-gets very emotional and depressed documented as of this encounter (statuses as of 05/24/2023) Medications Medication Sig Dispensed Refills Start Date [...] goal of less than 8.0% ([facility]) Use to test once daily DX E11.9 100 Each 3 1 Active Diclofenac Sodium 1 % External Gel Apply topically to affected area once for [address] GRAM TOPICALLY ON THE SKIN 4 TIMES A DAY TO RIGHT HIP 350 g 3 1 Active Biotin 57301 MCG Oral Tablet Take 1 Tablet by [...] 100 Capsule 1 3 05/19/20 24 Active documented as of this encounter (statuses as of 05/24/2023) Active Problems Problem Noted Date Diagnosed Date [...] 12/22/13 Steve Hooker III, MD [facility] [place] Facet arthropathy, lumbar 10/07/2013 Type 2 diabetes [...] as of this encounter (statuses as of 05/24/2023) Resolved Problems Problem Noted Date Diagnosed Date [...] as of this encounter (statuses as of 05/24/2023) Immunizations Name Administration Dates Next Due COVID-19 mRNA, LNP-s, No Pre serve, 2-Dose Series (LoopNet) 06/01/2021,10/15/2020,09/24/2020 Covid-19, Mrna, Lnp-s, Pf, B ivalent, [...] as of this encounter Progress Notes * Lacey Herr PHARM Tech - 05/24/2023 10:20 AM EST Contacts Type Contact Phone/Fax 05/24/2023 10:17 AM EST Phone (Outgoing) RUFINO BARRIENTOS (Emergency Contact) [phone] Left Message Subjective Advised patient to contact Anticoagulation Clinic if any unusual bruising or bleeding, recent illness, changes in medication, or questions/concerns. PT/INR results, Coumadin dose instructions, and next PT/INR date communicated as noted by Pharmacist: Yes SARAI DOUGLASS 05/24/2023, 10:20 AM * Lea Espana [facility] - 05/24/2023 9:44 AM EST Images from the original note were not included. Coumadin Clinic (region specific) Objective Current Warfarin Dose As of 05/24/2023 Warfarin maintenance plan: 4 mg (4 mg x 1) every day INR Result As of 05/24/2023 INR goal: 2.0-3.0 INR used for dosin.1 (05/23/2023) Assessment & Plan Warfarin Plan As of 05/24/2023 Full warfarin instructions: 12/8: 8 mg; 05/25: 8 mg; Otherwise 4 mg every day Next INR check: 05/30/2023 Repeat PT/INR in 1 week(s) Weekly dose: not changed Additional Dosing Information: Description GML - Call Rufino with results/dosing Amiodarone decreased 01/2021 Tech to contact patient with dose instructions as noted. Lea Espana RPh 05/24/2023, 9:45 AM documented in this encounter Plan of Treatment Upcoming Encounters Date Type Department Care Team (Late st Contact Info) Description 05/24/2023 1:30 PM EST Telemedicine [facility], [facility] [address] [place] [address] Vanessa Cullen CRNP [address] [facility] [address] Lea Pace, [facility] [employer] [address] [place] [address] 05/30/2023 8:40 AM EST Laboratory Lab Mobile Phlebotomy [facility] [place] [address] [place] [address] [facility], [facility] Mobile Home Draw [address] [place] [address] Health Maintenance Due Date Last Done Comments [...] Additional history exists CKD PHOS USE SMARTSET 00234 03/02/202302/15, 07/04/2021, 09/12/2020, Additional history exists HbA1c 05/29/2023 11/27/2022, 0506/2021, 07/25/2021, Additional history exists Diabetic Eye Exam 07/20/2023 07/20/2022, , 07/13/2019, Additional history exists CKD HGB USE SMARTSET 62644 12/18/202312/17, 12/17/2022, 11/27/2022, Additional history exists DXA Scan 12/27/2023 12/26/2021, 05/17, 05/26/2014, Additional history exists DTaP,Tdap,and Td Vaccines (2 - Td or Tdap) 02/01/2025 02/01/2015, 11/20/2007, 09/21/1998 Pneumococcal Vaccine: 65+ Years Completed 08/04/2014, 12/29/2009 Zoster Vaccines Completed 11/14/2018, 10/15, 05/30/2018, Additional history exists VITAMIN D LEVEL ONCE IN A LIFETIME-USE SMARTSET# 21024 Completed 07/04/2021, 09/12/2020, 01/11/2020, Additional history exists [...] and were consensually agreed upon. Care Teams Research Statistician Relationship Specialty Start Date End Date Steve Hooker III, MD [address] [place] [address] PCP - General 01/30/1996 documented as of this encounter
--- OUTSIDE RECORDS SUMMARY | 2023-06-27 02:53 | External Medical Summary | Summary of Care ---
Author Name Unknown Organization [facility] Address [address] [place] [address] Phone [phone] Care Team Providers Care Global Consumer Sector Vice President Name Role Phone Nhung LOPEZ MD, Steve Langston Primary Care Provider [phone] Reason for Visit * Reason Onset Date Comments Medication Refill 05/16/2023 Encounter Details Date Type Department Care Team (Late st Contact Info) Description 05/16/2023 Refill Family Practice [facility] [place] [address] [facility] [place] [address] Steve Hooker III, MD [address] [facility] [place] [address] Pain Allergies Active Allergy Reactions Criticality Noted Date Comments Adhesive Tape 07/05/2022 Doxycycline Nausea/vomiting 11/03/2010 Metoclopramide Hcl Neuro complications (Please comment) 12/07/2010 Developed worsening tremor and lip smacking. Naproxen 01/23/2012 Can not tolerate-gets very emotional and depressed documented as of this encounter (statuses as of 05/17/2023) Medications Medication Sig Dispensed Refills Start Date [...] hemoglobin A1c goal of less than 8.0% ([facility]) Use to test once daily DX E11.9 100 Each 3 1 Active Diclofenac Sodium 1 % External Gel Apply topically to affected area once for [address] dose. [address] 4 GRAM TOPICALLY ON THE SKIN 4 TIMES A DAY TO RIGHT HIP 350 g 3 1 Active Biotin 98218 MCG Oral Tablet Take 1 Tablet by [...] Pain, Severe. 120 Tablet 0 3 Active oxyCODONE-Acetamin ophen 10-325 MG Oral TabletIndications: Pain Take 1 Tablet by mouth every 6 hours as needed for Pain, Severe. 120 Tablet 0 3 05/16/20 23 Discontinu ed(Refill) documented as of this encounter (statuses as of 05/17/2023) Active Problems Problem Noted Date Diagnosed Date [...] 12/22/13 Steve Hooker III, MD [facility] [place] Facet arthropathy, lumbar 10/07/2013 Type 2 diabetes [...] as of this encounter (statuses as of 05/17/2023) Resolved Problems Problem Noted Date Diagnosed Date [...] as of this encounter (statuses as of 05/17/2023) Immunizations Name Administration Dates Next Due COVID-19 mRNA, LNP-s, No Pre serve, 2-Dose Series (Quosis) 06/01/2021,10/15/2020,09/24/2020 Covid-19, Mrna, Lnp-s, Pf, B ivalent, [...] encounter Miscellaneous Notes * Telephone Encounter - Sierra Benton DO - 05/17/2023 4:28 PM EST Signed Prescriptions: Disp Refills oxyCODONE-Acetaminophen 10-325 MG Oral Tab*120 Ta*0 Sig: Take 1 Tablet by mouth every 6 hours as needed for Pain, Severe. Authorizing Provider: SIERRA BENTON * Telephone Encounter - Sofía Thompson [facility] - 05/16/2023 3:22 PM ESTPending Prescriptions: Disp Refills oxyCODONE-Acetaminophen 10-325 MG Oral Tab*120 Ta*0 Sig: Take 1 Tablet by mouth every 6 hours as needed for Pain, Severe. * Telephone Encounter - Sofía Thompson [facility] - 05/16/2023 3:21 PM EST I have reviewed the patients controlled substance dispensing history in the Prescription Drug Monitoring Program in compliance with the [facility] regulations before prescribing a controlled substance. PDMP checked on 05/16/2023. Pending Prescriptions: Disp Refills oxyCODONE-Acetaminophen 10-325 MG Oral Ta*120 Ta*0 Sig: Take 1 Tablet by mouth every 6 hours as needed for Pain, Severe. Last Visit: 08/21/2022 (in office), 11/21/2022 (telemedicine) Next Visit: Visit date not found Date medication was last filled: 04/20/23 Date medication is due for refill: 05/19/23 Pharmacy: [facility] Is this request for a controlled [...] RESULTS REFLEX TO CONFIRMATORY TESTING. Cutoff Concentration Results for orders placed or performed in visit on 03/11/18 OPIOIDS/BENZO COMPLIANCE MONITORING TEST Result Value URINE DRUG SCREEN RESULT Amphetamine NEGATIVE Barbiturates NEGATIVE Benzodiazepines NEGATIVE Cannabinoids NEGATIVE Cocaine Metabolite NEGATIVE METHADONE METABOLITE NEGATIVE Morphine / Codeine NEGATIVE OXYCODONE POSITIVE (A) COMMENT THE ABOVE SCREENING RESULTS ARE PRESUMPTIVE AND CAN ONLY BE USED FOR MEDICAL PURPOSES. CONFIRMATORY TESTING IS AVAILABLE UPON REQUEST. Cutoff Concentration URINE VALID INTERP NORMAL CREATININE MARIZA [address] MARIZA 52 pH MARIZA 4.7 *Note: Due to a large number of results and/or encounters for the requested time period, some results have not been displayed. A complete set of results can be found in Results Review. Please approve if appropriate. Thank you, Sofía Thompson, PharmD Clinical Pharmacist Centralized Clinical Pharmacy Services (CCPS) 05/16/23 3:21 PM [phone] * Telephone Encounter - Daniela [place] PHARM Tech - 05/16/2023 12:13 PM EST Did you pend patient's preferred pharmacy and medication before forwarding?yes Pharmacy: [facility] Pending Prescriptions: Disp Refills oxyCODONE-Acetaminophen 10-325 [...] appointment Last date the medication was ordered: 04/17/2023 Is this request for a controlled substance?Yes, What was the last refill date 04/17/2023 w/ [id number] and dosage 10-325mg and Urine Drug Screen was completed Urine Drug Screen: Results for orders [...] RESULTS REFLEX TO CONFIRMATORY TESTING. Cutoff Concentration Results for orders placed or performed in visit on 03/11/18 OPIOIDS/BENZO COMPLIANCE MONITORING TEST Result Value URINE DRUG SCREEN RESULT Amphetamine NEGATIVE Barbiturates NEGATIVE Benzodiazepines NEGATIVE Cannabinoids NEGATIVE Cocaine Metabolite NEGATIVE METHADONE METABOLITE NEGATIVE Morphine / Codeine NEGATIVE OXYCODONE POSITIVE (A) COMMENT THE ABOVE SCREENING RESULTS ARE PRESUMPTIVE AND CAN ONLY BE USED FOR MEDICAL PURPOSES. CONFIRMATORY TESTING IS AVAILABLE UPON REQUEST. Cutoff Concentration URINE VALID INTERP NORMAL CREATININE MARIZA 298 [address] MARIZA 52 pH MARIZA 4.7 *Note: Due to a large number of [...] 9:10 AM EST Laboratory Lab Mobile Phlebotomy [facility] [address] [place] [facility] [place] [address] [facility], [facility] Mobile Home Draw [address] [place] [address] 05/22/2023 6:00 AM EST Anticoagulation Pharmacy Call Center WB [phone] [place] [address] [facility] 58 60 [facility] [place] [address] 05/24/2023 1:30 PM EST Telemedicine [facility], [facility] [address] [place] [address] Vanessa Cullen CRNP [address] [place] [address] Lea Pace, [facility] Private Inquiry Agent [address] [place] [address] Health Maintenance Due Date Last Done Comments [...] Additional history exists CKD PHOS USE SMARTSET 04815 03/02/202302/15, 07/04/2021, 09/12/2020, Additional history exists HbA1c 05/29/2023 11/27/2022, 10/17, 07/25/2021, Additional history exists Diabetic Eye Exam 07/20/2023 07/20/2022, , 07/13/2019, Additional history exists CKD HGB USE SMARTSET 27252 12/18/202312/17, 12/17/2022, 11/27/2022, Additional history exists DXA Scan 12/27/2023 12/26/2021, 05/17, 05/26/2014, Additional history exists DTaP,Tdap,and Td Vaccines (2 - Td or Tdap) 02/01/2025 02/01/2015, 11/20/2007, 09/21/1998 Pneumococcal Vaccine: 65+ Years Completed 08/04/2014, 12/29/2009 Zoster Vaccines Completed 11/14/2018, 10/15, 05/30/2018, Additional history exists VITAMIN D LEVEL ONCE IN A LIFETIME-USE SMARTSET# 92573 Completed 07/04/2021, 09/12/2020, 01/11/2020, Additional history exists [...] and were consensually agreed upon. Care Teams Global Consumer Sector Vice President Relationship Specialty Start Date End Date Steve Hooker III, MD [address] [place] [address] PCP - General 01/30/1996 documented as of this encounter
--- OUTSIDE RECORDS SUMMARY | 2023-06-27 02:54 | External Medical Summary ---
Author Name Unknown Address Unknown Organization K01:[facility] - [address] [place] [address] Laboratory Report Ordering Provider Test Date Status LOURDES DE GUZMAN 04/29/2023 10:14:00 Final Standing order for pt/inr. < br/>Please draw pt/inr every 1 to 4 weeks as requested
Results to [facility] Anticoagulation Clinic

Warfarin Therapy
INR: 2.0-3.0 conventional anticoagulation
INR: 2.5-3.5 high intensity anticoagulation Observation Date Value Abnormality Reference (Units ) Status PT 04/29/2023 10:14:00 50.5 Above high normal 11.6-15.2 (seconds) Final INR 04/29/2023 10:14:00 5.5 Above upper panic limits 0.8-1.2 Final Performing Location [facility] - [address] [place] [address]
--- OUTSIDE RECORDS SUMMARY | 2023-06-27 02:54 | External Medical Summary | Summary of Care ---
Author Name Unknown Organization [facility] Address [address] [place] [address] Phone [phone] Care Team Providers Care Customer Account Executive Name Role Phone Nhung LOPEZ MD, Steve Langston Primary Care Provider [phone] Reason for Visit * Reason Comments Dosage Adjustment Via Phone (anticoag Cl inic) Encounter Details Date Type Department Care Team (Latest Contact Info) Description 04/23/2023 6:00 AM EST Anticoagulation Pharmacy Call Center [phone] [place] [address] [address] [facility] [address] [facility] [place] [address] Atrial fibrillation with RVR ([facility])* Allergies Active Allergy Reactions Criticality Noted Date Comments Adhesive Tape 07/05/2022 Doxycycline Nausea/vomiting 11/03/2010 Metoclopramide Hcl Neuro complications (Please comment) 12/07/2010 Developed worsening tremor and lip smacking. Naproxen 01/23/2012 Can not tolerate-gets very emotional and depressed documented as of this encounter (statuses as of 04/23/2023) Medications Medication Sig Dispensed Refills Start Date [...] hemoglobin A1c goal of less than 8.0% ([facility]) Use to test once daily DX E11.9 100 Each 3 1 Active Diclofenac Sodium 1 % External Gel Apply topically to affected area once for [address]. [address] GRAM TOPICALLY ON THE SKIN 4 TIMES A DAY TO RIGHT HIP 350 g 3 1 Active Biotin 05511 MCG Oral Tablet Take 1 Tablet by mouth daily. 0 Active Warfarin Sodium 4 MG Oral Tablet (Coumadin) Take 1 to 1&1/2 tablets daily as directed by anticoagulation pharmacist 135 Tablet 3 2 Active OneTouch Ultra Blue In Vitro Strip [...] Pain, Severe. 120 Tablet 0 3 Active documented as of this encounter (statuses as of 04/23/2023) Active Problems Problem Noted Date Diagnosed Date [...] 12/22/13 Steve Hooker III, MD [facility] [place] Facet arthropathy, lumbar 10/07/2013 Type 2 diabetes [...] as of this encounter (statuses as of 04/23/2023) Resolved Problems Problem Noted Date Diagnosed Date [...] as of this encounter (statuses as of 04/23/2023) Immunizations Name Administration Dates Next Due COVID-19 mRNA, LNP-s, No Pre serve, 2-Dose Series (Boxever) 06/01/2021,10/15/2020,09/24/2020 Covid-19, Mrna, Lnp-s, Pf, B ivalent, [...] as of this encounter Progress Notes * Gracie Bauer PHARM Tech - 04/23/2023 9:46 AM EST Contacts Type Contact Phone/Fax 04/23/2023 09:44 AM EST Phone (Outgoing) RUFINO BARRIENTOS (Emergency Contact) [phone] Left Message Subjective Advised patient to contact Anticoagulation Clinic if any unusual bruising or bleeding, recent illness, changes in medication, or questions/concerns. PT/INR results, Coumadin dose instructions, and next PT/INR date communicated as noted by Pharmacist: Yes SARAI GORDON 04/23/2023, 9:46 AM * Lea Espana [facility] - 04/23/2023 7:56 AM EST Images from the original note were not included. Coumadin Clinic (region specific) Objective Current Warfarin Dose As of 04/23/2023 Warfarin maintenance plan: 6 mg (4 mg x 1.5) every Mon, Fri; 4 mg (4 mg x 1) all other days INR Result As of 04/23/2023 INR goal: 2.0-3.0 INR used for dosin.8 (04/22/2023) Assessment & Plan Warfarin Plan As of 04/23/2023 Full warfarin instructions: 04/23: Hold; 04/24: Hold; Otherwise 6 mg every Mon; 4 mg all other days Next INR check: 04/29/2023 Repeat PT/INR in 1 week(s) Weekly dose: decreased Additional Dosing Information: Description GML - Call Rufino with results/dosing Amiodarone decreased 01/2021 Tech to contact patient with dose instructions as noted. Lea Espana RPh 04/23/2023, 7:56 AM documented in this encounter Plan of Treatment Upcoming Encounters Date Type Department Care Team (Late st Contact Info) Description 04/29/2023 9:40 AM EST Laboratory Lab Mobile [place]bot[place] [facility] [address] [place] [address] [facility] Mobile Home Draw [address] [place] [address] 04/30/2023 6:00 AM EST Anticoagulation Pharmacy Call Center [address] [place] [address] [facility] [address] [place] [address] 04/30/2023 4:00 PM EST Home Visit [facility] [address] [place] [address] [place] [address] 09/23/2023 3:30 PM EDT Office Visit Cardiology, [facility] [address] [address] Adam Magallanes MD [address] [place] [address] Health Maintenance Due Date Last Done Comments [...] Additional history exists CKD PHOS USE SMARTSET 26097 03/02/202302/15, 07/04/2021, 09/12/2020, Additional history exists HbA1c 05/29/2023 11/27/2022, 10/17, 07/25/2021, Additional history exists Diabetic Eye Exam 07/20/2023 07/20/2022, , 07/13/2019, Additional history exists CKD HGB USE SMARTSET 14724 12/18/202312/17, 12/17/2022, 11/27/2022, Additional history exists DXA Scan 12/27/2023 12/26/2021, 05/17, 05/26/2014, Additional history exists DTaP,Tdap,and Td Vaccines (2 - Td or Tdap) 02/01/2025 02/01/2015, 11/20/2007, 09/21/1998 Pneumococcal Vaccine: 65+ Years Completed 08/04/2014, 12/29/2009 Zoster Vaccines Completed 11/14/2018, 10/15, 05/30/2018, Additional history exists VITAMIN D LEVEL ONCE IN A LIFETIME-USE SMARTSET# 29343 Completed 07/04/2021, 09/12/2020, 01/11/2020, Additional history exists [...] and were consensually agreed upon. Care Teams Customer Account Executive Relationship Specialty Start Date End Date Steve Hooker III, MD [address] [facility] [place] [address] PCP - General 01/30/1996 documented as of this encounter
--- OUTSIDE RECORDS SUMMARY | 2023-06-27 02:54 | External Medical Summary | Summary of Care ---
Author Name Unknown Organization [facility] Address [address] [place] [address] Phone [phone] Care Team Providers Care Inside Polisher Name Role Phone Nhung LOPEZ MD, Steve Langston Primary Care Provider [phone] Reason for Visit * Reason Onset Date Comments Hospital Call 04/22/2023 Encounter Details Date Type Department Care Team ([facility] st Contact Info) Description 04/22/2023 Telephone Pharmacy, [place] [address] [place], [place] [id number] [facility] [address] [place] [address] Hospital Call Allergies Active Allergy Reactions Criticality Noted Date [...] hemoglobin A1c goal of less than 8.0% ([facility]) Use to test once daily DX E11.9 100 Each 3 1 Active Diclofenac Sodium 1 % External Gel Apply topically to affected area once for [address] dose. [address] 4 GRAM TOPICALLY ON THE SKIN 4 TIMES A DAY TO RIGHT HIP 350 g 3 1 Active Biotin 09220 MCG Oral Tablet Take 1 Tablet by [...] 12/22/13 Steve Hooker III, MD [facility] [place] Facet arthropathy, lumbar 10/07/2013 Type 2 diabetes [...] mRNA, LNP-s, No Pre serve, 2-Dose Series (Kontron) 06/01/2021,10/15/2020,09/24/2020 Covid-19, Mrna, Lnp-s, Pf, B ivalent, 10 Mcg, IM, 5-11 yrs (Pfizer) 07/12/2022 H1N1 2009 Influenza, IM 06/28/2009 PPD 07/06/2022 Pneumococcal Conjugate Vacc, 13 Valent (Prevnar) 08/04/2014 Pneumococcal Conjugate Vacci ne, 7 Valent 03/27/2002 Pneumococcal Polysaccharide PPV23 (Pneumovax) 12/29/2009 SEASONAL INFLUENZA, PF, 6 M & Above, IM , (FLULAVAL or FLUZONE) 03/11/2018,05/29/2017 Season Influenza, Quad, PF, Adjuvanted, 65+ Yrs, IM (FLUAD) 06/08/2020 Seasonal Influenza, Quadriva lent Hd (Fluzone Hd) 04/03/2023,03/27/2021 Seasonal Influenza, Quadriva lent Hd, 65+ Yrs 07/10/2022 Seasonal Influenza, Quadriva lent, No Preserve, IM 02/27/2016 Seasonal Influenza, Split, I IV3, With Preserve, Inj 05/04/2014,02/25/2013,02/27/2012,03/18,04/04/2010,06/13/2009,04/05/20 08,03/26/2007,04/15/2006,03/27/2005,1 06/21/2002,03/27/2002,05/27/2000 05/28/2001 Seasonal Influenza, Trivalen t, Adjuvanted, 65+ yrs 04/21/2019 TD - Tetanus/Diptheria (ADULT) 11/20/2007,1998 TDAP (age 10 and older)(Boostrix) 02/01/2015 Varicella [...] encounter Miscellaneous Notes * Telephone Encounter - Nini Berg RPh - 04/23/2023 7:59 AM EST Noted - thank you; please see ACC encounter from today for warfarin dosing plan and communication with patient/EC. Thanks, Nini Berg PharmD Clinical Pharmacist Centralized Clinical Pharmacy Services (CCPS) (Formerly Telepharmacy) [phone] 04/23/2023 7:59 AM * Telephone Encounter - Kian Singleton RPh - 04/22/2023 11:27 PM EST [phone] (home) INR= 5.8 Goal INR 2-3 Received a call from lab at 2329 re elevated INR. Did not call pt due to the lateness of the call. Anticoagulation Clinic pharmacist will contact patient in morning with further dosing instructions. Kian Singleton RPh Clinical Pharmacist Medication Therapy Management Clinic 04/22/2023, 11:28 PM documented in this encounter Plan of Treatment Upcoming Encounters Date Type Department Care Team (Late st Contact Info) Description 04/30/2023 4:00 PM EST Home Visit [facility], [facility] [address] [place] [address], RN [address] [place] [address] 09/23/2023 3:30 PM EDT Office Visit Cardiology, [facility] [address] [place] [address] Adam Magallanes MD [address] [place] [address] Health Maintenance Due Date Last Done Comments [...] Additional history exists CKD PHOS USE SMARTSET 61832 03/02/202302/15, 07/04/2021, 09/12/2020, Additional history exists HbA1c 05/29/2023 11/27/2022, 10/17, 07/25/2021, Additional history exists Diabetic Eye Exam 07/20/2023 07/20/2022, , 07/13/2019, Additional history exists CKD HGB USE SMARTSET 98876 12/18/202312/17, 12/17/2022, 11/27/2022, Additional history exists DXA Scan 12/27/2023 12/26/2021, 05/17, 05/26/2014, Additional history exists DTaP,Tdap,and Td Vaccines (2 - Td or Tdap) 02/01/2025 02/01/2015, 11/20/2007, 09/21/1998 Pneumococcal Vaccine: 65+ Years Completed 08/04/2014, 12/29/2009 Zoster Vaccines Completed 11/14/2018, 10/15, 05/30/2018, Additional history exists VITAMIN D LEVEL ONCE IN A LIFETIME-USE SMARTSET# 17492 Completed 07/04/2021, 09/12/2020, 01/11/2020, Additional history exists [...] and were consensually agreed upon. Care Teams Inside Polisher Relationship Specialty Start Date End Date Steve Hooker III, MD [address] [place] [address] PCP - General 01/30/1996 documented as of this encounter
--- OUTSIDE RECORDS SUMMARY | 2023-06-27 02:54 | External Medical Summary | Summary of Care ---
Author Name Unknown Organization [facility] Address [address] [place] [address] Phone [phone] Care Team Providers Care Adult School Teacher Name Role Phone Nhung LOPEZ MD, Steve Langston Primary Care Provider [phone] Reason for Visit * Reason Comments Dosage Adjustment Via Phone (anticoag Cl inic) Encounter Details Date Type Department Care Team (Latest Contact Info) Description 05/07/2023 6:00 PM EST Anticoagulation Pharmacy Call Center WB [address] [facility] [place] [address] [facility], [facility] [address] [place] [address] Atrial fibrillation with RVR ([facility])* Allergies Active Allergy Reactions Criticality Noted Date Comments Adhesive Tape 07/05/2022 Doxycycline Nausea/vomiting 11/03/2010 Metoclopramide Hcl Neuro complications (Please comment) 12/07/2010 Developed worsening tremor and lip smacking. Naproxen 01/23/2012 Can not tolerate-gets very emotional and depressed documented as of this encounter (statuses as of 05/07/2023) Medications Medication Sig Dispensed Refills Start Date [...] A1c goal of less than 8.0% ([facility]) Use to test once daily DX E11.9 100 Each 3 1 Active Diclofenac Sodium 1 % External Gel Apply topically to affected area once for [address] GRAM TOPICALLY ON THE SKIN 4 TIMES A DAY TO RIGHT HIP 350 g 3 1 Active Biotin 48187 MCG Oral Tablet Take 1 Tablet by [...] as of this encounter (statuses as of 05/07/2023) Active Problems Problem Noted Date Diagnosed Date [...] 12/22/13 Steve Hooker III, MD [facility] [place] Facet arthropathy, lumbar 10/07/2013 Type 2 diabetes [...] as of this encounter (statuses as of 05/07/2023) Resolved Problems Problem Noted Date Diagnosed Date [...] as of this encounter (statuses as of 05/07/2023) Immunizations Name Administration Dates Next Due COVID-19 mRNA, LNP-s, No Pre serve, 2-Dose Series (2,10E+07) 06/01/2021,10/15/2020,09/24/2020 Covid-19, Mrna, Lnp-s, Pf, B ivalent, [...] as of this encounter Progress Notes * Urbano Kurtz PHARM Tech - 05/07/2023 4:27 PM EST Contacts Type Contact Phone/Fax 05/07/2023 04:25 PM EST Phone (Outgoing) RUFINO BARRIENTOS (Emergency Contact) [phone] Left Message Subjective Advised patient to contact Anticoagulation Clinic if any unusual bruising or PT/INR results, Coumadin dose instructions, and next PT/INR date communicated as noted by Pharmacist: Yes SARAI Holden 05/07/2023, 4:27 PM * Lea Espana [facility] - 05/07/2023 3:51 PM EST Images from the original note were not included. Coumadin Clinic (region specific) Objective Current Warfarin Dose As of 05/07/2023 Warfarin maintenance plan: 4 mg (4 mg x 1) every day INR Result As of 05/07/2023 INR goal: 2.0-3.0 INR used for dosin.3 (05/07/2023) Assessment & Plan Warfarin Plan As of 05/07/2023 Full warfarin instructions: 05/07: 6 mg; Otherwise 4 mg every day Next INR check: 05/14/2023 Repeat PT/INR in 1 week(s) Weekly dose: not changed Additional Dosing Information: Description GML - Call Rufino with results/dosing Amiodarone decreased 01/2021 Tech to contact patient with dose instructions as noted. Lea Espana RPh 05/07/2023, 3:51 PM documented in this encounter Plan of Treatment Upcoming Encounters Date Type Department Care Team (Late st Contact Info) Description 05/15/2023 6:00 AM EST Anticoagulation Pharmacy Call Center [address] [place] [address] Ccps, [facility] 58 60 [facility] [address] 05/24/2023 1:30 PM EST Telemedicine [facility], [facility] [address] [place] [address] Vanessa Cullen CRNP [address] [place] [address] Lea Pace, Community Health Chief Commercial Officer [address] [place], [place] [id number] 09/23/2023 3:30 PM EDT Office Visit Cardiology, [facility] [address] [place] [address] Adam Magallanes MD [address] [place] [address] Health Maintenance Due Date Last Done Comments [...] Additional history exists CKD PHOS USE SMARTSET 56329 03/02/202302/15, 07/04/2021, 09/12/2020, Additional history exists HbA1c 05/29/2023 11/27/2022, 10/17, 07/25/2021, Additional history exists Diabetic Eye Exam 07/20/2023 07/20/2022, , 07/13/2019, Additional history exists CKD HGB USE SMARTSET 36004 12/18/202312/17, 12/17/2022, 11/27/2022, Additional history exists DXA Scan 12/27/2023 12/26/2021, 05/17, 05/26/2014, Additional history exists DTaP,Tdap,and Td Vaccines (2 - Td or Tdap) 02/01/2025 02/01/2015, 11/20/2007, 09/21/1998 Pneumococcal Vaccine: 65+ Years Completed 08/04/2014, 12/29/2009 Zoster Vaccines Completed 11/14/2018, 10/15, 05/30/2018, Additional history exists VITAMIN D LEVEL ONCE IN A LIFETIME-USE SMARTSET# 06295 Completed 07/04/2021, 09/12/2020, 01/11/2020, Additional history exists [...] and were consensually agreed upon. Care Teams Adult School Teacher Relationship Specialty Start Date End Date Steve Hooker III, MD [address] [place] [address] PCP - General 01/30/1996 documented as of this encounter
--- OUTSIDE RECORDS SUMMARY | 2023-06-27 02:54 | External Medical Summary | Summary of Care ---
Author Name Unknown Organization [facility] Address [address] [place] [address] Phone [phone] Care Team Providers Care Nuclear Radiation Engineer Name Role Phone Nhung LOPEZ MD, Steve Langston Primary Care Provider [phone] Reason for Visit * Reason Comments Dosage Adjustment Via Phone (anticoag Cl inic) Encounter Details Date Type Department Care Team (Latest Contact Info) Description 04/30/2023 6:00 AM EST Anticoagulation Pharmacy Call Center [address] Public [place] [address] [facility] [address] [facility] [place] [address] Atrial fibrillation with RVR ([facility])* Allergies Active Allergy Reactions Criticality Noted Date Comments Adhesive Tape 07/05/2022 Doxycycline Nausea/vomiting 11/03/2010 Metoclopramide Hcl Neuro complications (Please comment) 12/07/2010 Developed worsening tremor and lip smacking. Naproxen 01/23/2012 Can not tolerate-gets very emotional and depressed documented as of this encounter (statuses as of 04/30/2023) Medications Medication Sig Dispensed Refills Start Date [...] hemoglobin A1c goal of less than 8.0% ([facility]) Use to test once daily DX E11.9 100 Each 3 1 Active Diclofenac Sodium 1 % External Gel Apply topically to affected area once for [address] dose. [address] GRAM TOPICALLY ON THE SKIN 4 TIMES A DAY TO RIGHT HIP 350 g 3 1 Active Biotin 46535 MCG Oral Tablet Take 1 Tablet by [...] as of this encounter (statuses as of 04/30/2023) Active Problems Problem Noted Date Diagnosed Date [...] 12/22/13 Steve Hooker III, MD [facility] [place] Facet arthropathy, lumbar 10/07/2013 Type 2 diabetes [...] as of this encounter (statuses as of 04/30/2023) Resolved Problems Problem Noted Date Diagnosed Date [...] as of this encounter (statuses as of 04/30/2023) Immunizations Name Administration Dates Next Due COVID-19 mRNA, LNP-s, No Pre serve, 2-Dose Series ([employer]) 06/01/2021,10/15/2020,09/24/2020 Covid-19, Mrna, Lnp-s, Pf, B ivalent, [...] as of this encounter Progress Notes * Kristen Howell PHARM Tech - 04/30/2023 8:16 AM EST Subjective Advised patient to contact Anticoagulation Clinic if any unusual bruising or bleeding, recent illness, changes in medication, or questions/concerns. PT/INR results, Coumadin dose instructions, and next PT/INR date communicated as noted by Pharmacist: Yes SARAI SCHAFFER 04/30/2023, 8:16 AM * Lea Espana [facility] - 04/30/2023 7:44 AM EST Images from the original note were not included. Coumadin Clinic (region specific) Objective Current Warfarin Dose As of 04/30/2023 Warfarin maintenance plan: 4 mg (4 mg x 1) every day INR Result As of 04/30/2023 INR goal: 2.0-3.0 INR used for dosin.5 (04/29/2023) Assessment & Plan Warfarin Plan As of 04/30/2023 Full warfarin instructions: 04/30: Hold; 05/01: Hold; Otherwise 4 mg every day Next INR check: 05/08/2023 Repeat PT/INR in 1.5 week(s) Weekly dose: decreased Additional Dosing Information: Description GML - Call Saray with results/dosing Amiodarone decreased 01/2021 Tech to contact patient with dose instructions as noted. Lea Espana RPh 04/30/2023, 7:45 AM documented in this encounter Plan of Treatment Upcoming Encounters Date Type Department Care Team (Late st Contact Info) Description 04/30/2023 4:00 PM EST Home Visit [facility], [facility] 132 [facility] [place] [address] [facility] Nurse Triage 132 [facility] [place] [address] 05/07/2023 9:10 AM EST Laboratory Lab Mobile Phlebotomy [facility] [address] [place] [address] [facility], [facility] Mobile Home Draw [address] [place] [address] 05/08/2023 6:00 PM EST Anticoagulation Pharmacy Call Center [address] [place] [address] [facility], [facility] [address] [place] [address] 05/24/2023 1:30 PM EST Telemedicine [facility], [facility] 132 [facility] [place] [address] Vanessa Cullen CRNP [address] [facility] [place] [address] Lea Pace, Community Health Police Investigator [address] [place] [address] 09/23/2023 3:30 PM EDT Office Visit Cardiology, [facility] [address] [place] [address] Adam Magallanes MD [address] [facility] [place] [address] Health Maintenance Due Date Last Done Comments [...] Additional history exists CKD PHOS USE SMARTSET 27756 03/02/202302/15, 07/04/2021, 09/12/2020, Additional history exists HbA1c 05/29/2023 11/27/2022, 0506/2021, 07/25/2021, Additional history exists Diabetic Eye Exam 07/20/2023 07/20/2022, , 07/13/2019, Additional history exists CKD HGB USE SMARTSET 80734 12/18/202312/17, 12/17/2022, 11/27/2022, Additional history exists DXA Scan 12/27/2023 12/26/2021, 05/17, 05/26/2014, Additional history exists DTaP,Tdap,and Td Vaccines (2 - Td or Tdap) 02/01/2025 02/01/2015, 11/20/2007, 09/21/1998 Pneumococcal Vaccine: 65+ Years Completed 08/04/2014, 12/29/2009 Zoster Vaccines Completed 11/14/2018, 10/15, 05/30/2018, Additional history exists VITAMIN D LEVEL ONCE IN A LIFETIME-USE SMARTSET# 88925 Completed 07/04/2021, 09/12/2020, 01/11/2020, Additional history exists [...] and were consensually agreed upon. Care Teams Nuclear Radiation Engineer Relationship Specialty Start Date End Date Steve Hooker III, MD [address] [place] [address] PCP - General 01/30/1996 documented as of this encounter
--- OUTSIDE RECORDS SUMMARY | 2023-06-27 02:54 | External Medical Summary | Summary of Care ---
Author Name Unknown Organization [facility] Address [address] [place] [address] Phone [phone] Care Team Providers Care Health Information Assistant Name Role Phone Nhung LOPEZ MD, Steve Langston Primary Care Provider [phone] Reason for Visit * Reason Onset Date Comments [facility]: Maintenance 05/01/2023 Encounter Details Date Type Department Care Team ([facility] Contact Info) Description 05/01/2023 3:00 PM EST Scheduled Telephone [facility], [facility] [address] [place] [address] [facility] Nurse Triage [address] [place] [address] Allergies Active Allergy Reactions Criticality Noted Date Comments Adhesive Tape 07/05/2022 Doxycycline Nausea/vomiting 11/03/2010 Metoclopramide Hcl Neuro complications (Please comment) 12/07/2010 Developed worsening tremor and lip smacking. Naproxen 01/23/2012 Can not tolerate-gets very emotional and depressed documented as of this encounter (statuses as of 05/01/2023) Medications Medication Sig Dispensed Refills Start Date [...] goal of less than 8.0% ([facility]) Use to test once daily DX E11.9 100 Each 3 1 Active Diclofenac Sodium 1 % External Gel Apply topically to affected area once for [address]. [address] GRAM TOPICALLY ON THE SKIN 4 TIMES A DAY TO RIGHT HIP 350 g 3 1 Active Biotin 75595 MCG Oral Tablet Take 1 Tablet by [...] as of this encounter (statuses as of 05/01/2023) Active Problems Problem Noted Date Diagnosed Date [...] 12/22/13 Steve Hooker III, MD [facility] [place] Facet arthropathy, lumbar 10/07/2013 Type 2 diabetes [...] as of this encounter (statuses as of 05/01/2023) Resolved Problems Problem Noted Date Diagnosed Date [...] as of this encounter (statuses as of 05/01/2023) Immunizations Name Administration Dates Next Due COVID-19 mRNA, LNP-s, No Pre serve, 2-Dose Series ([employer]) 06/01/2021,10/15/2020,09/24/2020 Covid-19, Mrna, Lnp-s, Pf, B ivalent, [...] encounter Miscellaneous Notes * Telephone Encounter - Nerissa Soto RN - 05/01/2023 3:31 PM EST Images from the original note were not included. [facility] Access Services Representative Monthly Visit Date: 05/01/2023 Time: 3:31 PM Name: Rhea Diaz : 1935 Spoke with Rhea, introduced myself, agreed to telephonic assessment, aware that call is being recorded for training purposes. Problems/Symptoms: HPI: Rhea reports having pain in her left hip/leg, aching, 8/10 pain since she had her surgery several months ago, takes oxycodone, voltaren gel with some relief. Denies fever/chills, no open areas/rashes to body, appetite is good, sleeps good at night Constitutional: no weight loss, reports weight fluctuates 2-3 lbs, denies any HF symptoms, no weakness, and + fatigue, sleeps well at night and takes naps all day Resp: no cough, no sputum, no wheezing, no hemoptysis, and + dyspnea with exertion Cardiac: no chest pain, no orthopnea, no dyspnea on exertion, no palpitations, + PND, and + mild edema to BLE's, legs wrapped weekly by [employer] [facility] GI: no pain, no heartburn, no diarrhea, no constipation, no blood/melena, no nausea, no vomiting, LBM was today, urinating wnl's Musculoskeletal: no swelling and + joint pain of left hip and back pain, left knee pain Neuro: no falling, no numbness or tingling, no vertigo, and + memory loss forgetful at times Medication Reconciliation: Does patient take medications as ordered: Yes, daughter was managing her medications but had surgery and now her son is managing her medications Per last [facility] HV, patient is taking Torsemide twice daily Follow up with Vanessa Cullen in May Nerissa Soto RN 05/01/2023 documented in this encounter Plan of Treatment Upcoming Encounters Date Type Department Care Team (Late st Contact Info) Description 05/07/2023 9:10 AM EST Laboratory Lab Mobile Phlebotomy [facility] [address] [place] [address] [facility], [facility] Mobile Home Draw [address] [place] [address] 05/08/2023 6:00 PM EST Anticoagulation Pharmacy Call Center [address] [place] [address] Ccps, [facility] [address] [place] [address] 05/24/2023 1:30 PM EST Telemedicine [facility], [facility] [address] [place] [address] Vanessa Cullen CRNP 132 [facility] [place] [address] Lea Pace, Community Health Knurling Machine Operator [address] [place] [address] 09/23/2023 3:30 PM EDT Office Visit Cardiology, [facility] [address] [place] [address] Adam Magallanes MD 132 [facility] [place] [address] Health Maintenance Due Date Last Done Comments [...] Additional history exists CKD PHOS USE SMARTSET 96917 03/02/202302/15, 07/04/2021, 09/12/2020, Additional history exists HbA1c 05/29/2023 11/27/2022, 0506/2021, 07/25/2021, Additional history exists Diabetic Eye Exam 07/20/2023 07/20/2022, , 07/13/2019, Additional history exists CKD HGB USE SMARTSET 90607 12/18/202312/17, 12/17/2022, 11/27/2022, Additional history exists DXA Scan 12/27/2023 12/26/2021, 05/17, 05/26/2014, Additional history exists DTaP,Tdap,and Td Vaccines (2 - Td or Tdap) 02/01/2025 02/01/2015, 11/20/2007, 09/21/1998 Pneumococcal Vaccine: 65+ Years Completed 08/04/2014, 12/29/2009 Zoster Vaccines Completed 11/14/2018, 10/15, 05/30/2018, Additional history exists VITAMIN D LEVEL ONCE IN A LIFETIME-USE SMARTSET# 24751 Completed 07/04/2021, 09/12/2020, 01/11/2020, Additional history exists [...] and were consensually agreed upon. Care Teams Health Information Assistant Relationship Specialty Start Date End Date Steve Hooker III, MD [address] [place] [address] PCP - General 01/30/1996 documented as of this encounter
--- OUTSIDE RECORDS SUMMARY | 2023-06-27 02:54 | External Medical Summary ---
Author Name Unknown Address Unknown Organization [facility] [address] [place] [address] Laboratory Report Ordering Provider Test Date Status LOURDES DE GUZMAN 05/07/2023 11:08:00 Final Standing order for pt/inr. < br/>Please draw pt/inr every 1 to 4 weeks as requested
Results to [facility] Anticoagulation Clinic

Warfarin Therapy
INR: 2.0-3.0 conventional anticoagulation
INR: 2.5-3.5 high intensity anticoagulation Observation Date Value Abnormality Reference (Units ) Status PT 05/07/2023 11:08:00 16.0 Above high normal 11 .6-15.2 (seconds) Final INR 05/07/2023 11:08:00 1.3 Above high normal 0. 8-1.2 Final Performing Location [facility] [address] [place] [address]
--- OUTSIDE RECORDS SUMMARY | 2023-06-27 02:54 | External Medical Summary | Summary of Care ---
Author Name Unknown Organization [facility] Address [address] [place] [address] Phone [phone] Care Team Providers Care Poultry Trimmer Name Role Phone Nhung LOPEZ MD, Steve Langston Primary Care Provider [phone] Reason for Visit * Reason Onset Date Comments [facility]: Maintenance 04/30/2023 Encounter Details Date Type Department Care Team ([facility] Contact Info) Description 04/30/2023 11:00 AM EST Scheduled Telephone [facility], [facility] [address] [place] [address] [facility] Nurse Triage [address] [place] [address] Allergies Active Allergy Reactions Criticality Noted Date [...] goal of less than 8.0% ([facility]) Use to test once daily DX E11.9 100 Each 3 1 Active Biotin 43073 MCG Oral Tablet Take 1 Tablet by [...] 12/22/13 Steve Hooker III, MD [facility] [place] Facet arthropathy, lumbar 10/07/2013 Type 2 diabetes [...] mRNA, LNP-s, No Pre serve, 2-Dose Series ([employer]) 06/01/2021,10/15/2020,09/24/2020 Covid-19, Mrna, Lnp-s, Pf, B ivalent, [...] Telephone Encounter - Nerissa Soto RN - 04/30/2023 3:00 PM EST [facility] Digital Sales Director Monthly Visit Date: 04/30/2023 Time: 3:00 PM Name: Rhea Diaz : 1935 Phone call to Rhea, numerous attempts, no answer, left message requesting a return call [facility] Triage case work aide. Will attempt to call patient tomorrow. Nerissa Soto RN 04/30/2023 documented in this encounter Plan of Treatment Upcoming Encounters Date Type Department Care Team (Late st Contact Info) Description 05/01/2023 3:00 PM EST Scheduled Telephone [facility], [facility] 132 [facility] [place] [address] [facility]riage [facility] [address] 05/07/2023 9:10 AM EST Laboratory Lab Mobile Phlebotomy [facility] [address] [place] [address] [facility], [facility] Mobile Home Draw [address] [place] [address] 05/08/2023 6:00 PM EST Anticoagulation Pharmacy Call Center [address] [facility] [place] [address] Ccps, [facility] [address] 60 [facility] [place] [address] 05/24/2023 1:30 PM EST Telemedicine [facility], [facility] 132 [facility] [place] [address] Vanessa Cullen CRNP 132 [facility] [place] [address] Lea Pace, Community Health Commercial Green Retrofit Architect [address] [facility], [place] [address] 09/23/2023 3:30 PM EDT Office Visit Cardiology, [facility] 132 [facility] [place] [address] Adam aMgallanes MD 132 [facility] [place] [address] Health Maintenance Due Date Last Done Comments [...] Additional history exists CKD PHOS USE SMARTSET 37941 03/02/202302/15, 07/04/2021, 09/12/2020, Additional history exists HbA1c 05/29/2023 11/27/2022, 10/17, 07/25/2021, Additional history exists Diabetic Eye Exam 07/20/2023 07/20/2022, , 07/13/2019, Additional history exists CKD HGB USE SMARTSET 08547 12/18/202312/17, 12/17/2022, 11/27/2022, Additional history exists DXA Scan 12/27/2023 12/26/2021, 05/17, 05/26/2014, Additional history exists DTaP,Tdap,and Td Vaccines (2 - Td or Tdap) 02/01/2025 02/01/2015, 11/20/2007, 09/21/1998 Pneumococcal Vaccine: 65+ Years Completed 08/04/2014, 12/29/2009 Zoster Vaccines Completed 11/14/2018, 10/15, 05/30/2018, Additional history exists VITAMIN D LEVEL ONCE IN A LIFETIME-USE SMARTSET# 69443 Completed 07/04/2021, 09/12/2020, 01/11/2020, Additional history exists [...] and were consensually agreed upon. Care Teams Poultry Trimmer Relationship Specialty Start Date End Date Steve Hooker III, MD [address] [facility] [place] [address] PCP - General 01/30/1996 documented as of this encounter
--- OUTSIDE RECORDS SUMMARY | 2023-06-27 02:54 | External Medical Summary | Summary of Care ---
Author Name Unknown Organization [facility] Address [address] [place] [address] Phone [phone] Care Team Providers Care Qualified Craft Worker Electrician Name Role Phone Nhung LOPEZ MD, Steve Langston Primary Care Provider [phone] Reason for Visit * Reason Onset Date Comments Health Maintenance 05/14/2023 Encounter Details Date Type Department Care Team ([facility] st Contact Info) Description 05/14/2023 Telephone Family Practice [facility] [place] [address] [facility] [place] [address] Steve Hooker III, MD [address] [facility] [place] [address] Health Maintenance Allergies Active Allergy Reactions Criticality Noted Date [...] hemoglobin A1c goal of less than 8.0% ([facility]) Use to test once daily DX E11.9 100 Each 3 1 Active Diclofenac Sodium 1 % External Gel Apply topically to affected area once for [address] 4 GRAM TOPICALLY ON THE SKIN 4 TIMES A DAY TO RIGHT HIP 350 g 3 1 Active Biotin 21292 MCG Oral Tablet Take 1 Tablet by [...] 12/22/13 Steve Hooker III, MD [facility] [place] Facet arthropathy, lumbar 10/07/2013 Type 2 diabetes [...] mRNA, LNP-s, No Pre serve, 2-Dose Series ([employer]) 06/01/2021,10/15/2020,09/24/2020 Covid-19, Mrna, Lnp-s, Pf, B ivalent, [...] encounter Miscellaneous Notes * Telephone Encounter - Alicia LongLETTY - 05/14/2023 8:20 AM EST Care Gaps Comprehensive Care Outreach Last Office/Telemedicine Visit: 08/21/2022 (in office), 11/21/2022 (telemedicine) Next Office Visit: Visit date not found Hemoglobin AIC Results: Lab Results Component Value [...] POCT - [facility] 5.6 03/27/2021 11:49 AM Reviewed Health Maintenance below: Health Maintenance Topic Date Due Hepatitis B (1 of 3 - Risk 3-dose series) Never done Depression Screening 09/16/2019 Diabetic Foot Exam 09/12/2021 *BISPHONATE OR OTHER ACCEPTABLE MEDICATION NEEDED FOR OSTEOPOROSIS (REFER TO SMARTSET #1146) Never done Albumin/Creatinine Ratio 07/27/2022 COVID-19 Vaccine () 02/15/2023 CKD PHOS USE SMARTSET 99310 03/02/2023 HbA1c 05/29/2023 Diabetic Eye Exam 07/20/2023 Ov labs Care Gap Outreach Action Taken: spoke to daughter about appt. She said she wasn't awake yet to takemy number. documented in this encounter Plan of Treatment Upcoming Encounters Date Type Department Care Team (Late st Contact Info) Description 05/14/2023 12:50 PM EST Laboratory Lab Mobile Phlebotomy [facility] [address] [place] [address] [facility], [facility] Mobile Home Draw [address] [place] [address] intermediate current use of anticoagulant therapy 05/15/2023 6:00 AM EST Anticoagulation Pharmacy Call Center [address] [place] [address] [facility] [address] [facility] [place] [address] 05/24/2023 1:30 PM EST Telemedicine [facility] [place], [facility] [address] [place] [address] Vanessa Cullen CRNP [address] [place] [address] Lea Pace, Community Health Privacy Attorney [address] [facility] [place] [address] 09/23/2023 3:30 PM EDT Office Visit Cardiology, [facility] [address] [place] [address] Adam Magallanes MD [address] [place] [address] Health Maintenance Due Date Last Done Comments [...] Additional history exists CKD PHOS USE SMARTSET 04305 03/02/202302/15, 07/04/2021, 09/12/2020, Additional history exists HbA1c 05/29/2023 11/27/2022, 10/17, 07/25/2021, Additional history exists Diabetic Eye Exam 07/20/2023 07/20/2022, , 07/13/2019, Additional history exists CKD HGB USE SMARTSET 12970 12/18/202312/17, 12/17/2022, 11/27/2022, Additional history exists DXA Scan 12/27/2023 12/26/2021, 05/17, 05/26/2014, Additional history exists DTaP,Tdap,and Td Vaccines (2 - Td or Tdap) 02/01/2025 02/01/2015, 11/20/2007, 09/21/1998 Pneumococcal Vaccine: 65+ Years Completed 08/04/2014, 12/29/2009 Zoster Vaccines Completed 11/14/2018, 10/15, 05/30/2018, Additional history exists VITAMIN D LEVEL ONCE IN A LIFETIME-USE SMARTSET# [id number] Completed 07/04/2021, 09/12/2020, 01/11/2020, Additional history exists [...] and were consensually agreed upon. Care Teams Qualified Craft Worker Electrician Relationship Specialty Start Date End Date Steve Hooker III, MD [address] [place] [address] PCP - General 01/30/1996 documented as of this encounter
--- OUTSIDE RECORDS SUMMARY | 2023-06-27 02:54 | External Medical Summary ---
Author Name Unknown Address Unknown Organization K01:[facility] - [address] [place] [address] Laboratory Report Ordering Provider Test Date Status LOURDES DE GUZMAN 05/14/2023 11:48:00 Final Standing order for pt/inr. < br/>Please draw pt/inr every 1 to 4 weeks as requested
Results to [facility]

Warfarin Therapy
INR: 2.0-3.0 conventional anticoagulation
INR: 2.5-3.5 high intensity anticoagulation Observation Date Value Abnormality Reference (Units ) Status PT 05/14/2023 11:48:00 27.2 Above high normal 11 .6-15.2 (seconds) Final INR 05/14/2023 11:48:00 2.5 Above high normal 0. 8-1.2 Final Performing Location [facility] - [address] [place] [address]
--- OUTSIDE RECORDS SUMMARY | 2023-06-27 02:54 | External Medical Summary | Summary of Care ---
Author Name Unknown Organization [facility] Address [address] [place] [address] Phone [phone] Care Team Providers Care Occupational Health Technician Name Role Phone Nhung LOPEZ MD, Steve Langston Primary Care Provider [phone] Reason for Visit * Reason Onset Date Comments Appointment 04/24/2023 Encounter Details Date Type Department Care Team ([facility] Contact Info) Description 04/24/2023 Telephone [facility], [facility] [address] [place] [address] Services, Scheduling [address] [place] [address] Appointment (/) Allergies Active Allergy Reactions Criticality Noted Date Comments Adhesive Tape 07/05/2022 Doxycycline Nausea/vomiting 11/03/2010 Metoclopramide Hcl Neuro complications (Please comment) 12/07/2010 Developed worsening tremor and lip smacking. Naproxen 01/23/2012 Can not tolerate-gets very emotional and depressed documented as of this encounter (statuses as of 04/24/2023) Medications Medication Sig Dispensed Refills Start Date [...] hemoglobin A1c goal of less than 8.0% ([facility]) Use to test once daily DX E11.9 100 Each 3 1 Active Diclofenac Sodium 1 % External Gel Apply topically to affected area once for [address] GRAM TOPICALLY ON THE SKIN 4 TIMES A DAY TO RIGHT HIP 350 g 3 1 Active Biotin 86467 MCG Oral Tablet Take 1 Tablet by [...] as of this encounter (statuses as of 04/24/2023) Active Problems Problem Noted Date Diagnosed Date [...] 12/22/13 Steve Hooker III, MD [facility] [place] Facet arthropathy, lumbar 10/07/2013 Type 2 diabetes [...] as of this encounter (statuses as of 04/24/2023) Resolved Problems Problem Noted Date Diagnosed Date [...] as of this encounter (statuses as of 04/24/2023) Immunizations Name Administration Dates Next Due COVID-19 [...] encounter Miscellaneous Notes * Telephone Encounter - Yajaira De La Torre OSA - 04/24/2023 9:18 AM EST Per Request to schedule 3 month telemed... Called lmom to confirm if 05/24 at 1:30pm is a good date and time. documented in this encounter Plan of Treatment Upcoming Encounters Date Type Department Care Team (Late st Contact Info) Description 04/29/2023 9:40 AM EST Laboratory Lab [place] [facility] [address] [place] [address] [facility], [facility] Mobile Home Draw [address] [place] [address] 04/30/2023 6:00 AM EST Anticoagulation Pharmacy Call Center [address] [facility] [place] [address] [facility] [address] [facility] [place] [address] 04/30/2023 4:00 PM EST [facility] [address] [place] [address], [facility] [address] [place] [address] 05/24/2023 1:30 PM EST Telemedicine [facility], [facility] [address] [place] [address] Vanessa Cullen CRNP [address] [place] [address] Lea Pace, Community Health Paperboard Machine Operator [address] [place] [address] 09/23/2023 3:30 PM EDT Office Visit Cardiology, [facility] [address] [place] [address] Adam Magallanes MD [address] [place] [address] Health Maintenance Due Date Last Done Comments [...] Additional history exists CKD PHOS USE SMARTSET 75831 03/02/202302/15, 07/04/2021, 09/12/2020, Additional history exists HbA1c 05/29/2023 11/27/2022, 10/17, 07/25/2021, Additional history exists Diabetic Eye Exam 07/20/2023 07/20/2022, , 07/13/2019, Additional history exists CKD HGB USE SMARTSET 40403 12/18/202312/17, 12/17/2022, 11/27/2022, Additional history exists DXA Scan 12/27/2023 12/26/2021, 05/17, 05/26/2014, Additional history exists DTaP,Tdap,and Td Vaccines (2 - Td or Tdap) 02/01/2025 02/01/2015, 11/20/2007, 09/21/1998 Pneumococcal Vaccine: 65+ Years Completed 08/04/2014, 12/29/2009 Zoster Vaccines Completed 11/14/2018, 10/15, 05/30/2018, Additional history exists VITAMIN D LEVEL ONCE IN A LIFETIME-USE SMARTSET# 95460 Completed 07/04/2021, 09/12/2020, 01/11/2020, Additional history exists [...] and were consensually agreed upon. Care Teams Occupational Health Technician Relationship Specialty Start Date End Date Steve Hooker III, MD [address] [place] [address] PCP - General 01/30/1996 documented as of this encounter
--- OUTSIDE RECORDS SUMMARY | 2023-06-27 02:55 | External Medical Summary | Summary of Care ---
Author Name Unknown Organization [facility] Address [address] [place] [address] Phone [phone] Care Team Providers Care Paper And Pulp Mill Operator Name Role Phone Nhung LOPEZ MD, Steve Langston Primary Care Provider [phone] Reason for Visit * Reason Onset Date Comments Hospital Call 04/22/2023 Encounter Details Date Type Department Care Team ([facility] st Contact Info) Description 04/22/2023 Telephone Pharmacy, [place] [address], [place] [id number] [facility] [address] [place] [address] Hospital Call Allergies Active Allergy Reactions Criticality Noted Date Comments Adhesive Tape 07/05/2022 Doxycycline Nausea/vomiting 11/03/2010 Metoclopramide Hcl Neuro complications (Please comment) 12/07/2010 Developed worsening tremor and lip smacking. Naproxen 01/23/2012 Can not tolerate-gets very emotional and depressed documented as of this encounter (statuses as of 04/22/2023) Medications Medication Sig Dispensed Refills Start Date [...] A1c goal of less than 8.0% ([facility]) Use to test once daily DX E11.9 100 Each 3 1 Active Diclofenac Sodium 1 % External Gel Apply topically to affected area once for [address] GRAM TOPICALLY ON THE SKIN 4 TIMES A DAY TO RIGHT HIP 350 g 3 1 Active Biotin 52725 MCG Oral Tablet Take 1 Tablet by [...] as of this encounter (statuses as of 04/22/2023) Active Problems Problem Noted Date Diagnosed Date [...] 12/22/13 Steve Hooker III, MD [facility] [place] Facet arthropathy, lumbar 10/07/2013 Type 2 diabetes [...] as of this encounter (statuses as of 04/22/2023) Resolved Problems Problem Noted Date Diagnosed Date [...] as of this encounter (statuses as of 04/22/2023) Immunizations Name Administration Dates Next Due COVID-19 mRNA, LNP-s, No Pre serve, 2-Dose Series ([employer]) 06/01/2021,10/15/2020,09/24/2020 Covid-19, Mrna, Lnp-s, Pf, B ivalent, [...] encounter Miscellaneous Notes * Telephone Encounter - Kian Singleton RPh - 04/22/2023 11:27 PM EST [phone] (home) INR= 5.8 Goal INR 2-3 Received a call from lab at 2329 re elevated INR. Did not call pt due to the lateness of the call. Anticoagulation Clinic pharmacist will contact patient in morning with further dosing instructions. Kian Singleton [facility] Clinical Pharmacist Med[facility] Therapy [facility] 04/22/2023, 11:28 PM documented in this encounter Plan of Treatment Upcoming Encounters Date Type Department Care Team (Late st Contact Info) Description 04/23/2023 6:00 AM EST Anticoagulation Pharmacy Call Center [address] [facility] [place] [address] [facility] [address] [facility] [place] [address] 04/30/2023 4:00 PM EST Home Visit [facility] [address] [place] [address], [facility] [address] [place] [address] 09/23/2023 3:30 PM EDT Office Visit Cardiology, [facility] [address] [place] [address] Adam Magallanes MD [address] [place] [address] Health Maintenance Due Date Last Done Comments [...] Additional history exists CKD PHOS USE SMARTSET 32649 03/02/202302/15, 07/04/2021, 09/12/2020, Additional history exists HbA1c 05/29/2023 11/27/2022, 10/17, 07/25/2021, Additional history exists Diabetic Eye Exam 07/20/2023 07/20/2022, , 07/13/2019, Additional history exists CKD HGB USE SMARTSET 30018 12/18/202312/17, 12/17/2022, 11/27/2022, Additional history exists DXA Scan 12/27/2023 12/26/2021, 05/17, 05/26/2014, Additional history exists DTaP,Tdap,and Td Vaccines (2 - Td or Tdap) 02/01/2025 02/01/2015, 11/20/2007, 09/21/1998 Pneumococcal Vaccine: 65+ Years Completed 08/04/2014, 12/29/2009 Zoster Vaccines Completed 11/14/2018, 10/15, 05/30/2018, Additional history exists VITAMIN D LEVEL ONCE IN A LIFETIME-USE SMARTSET# 36453 Completed 07/04/2021, 09/12/2020, 01/11/2020, Additional history exists [...] and were consensually agreed upon. Care Teams Paper And Pulp Mill Operator Relationship Specialty Start Date End Date Steve Hooker III, MD [address] [place] [address] PCP - General 01/30/1996 documented as of this encounter
--- OUTSIDE RECORDS SUMMARY | 2023-06-27 02:55 | External Medical Summary | Summary of Care ---
Author Name Unknown Organization [facility] Address [address] [place] [address] Phone [phone] Care Team Providers Care Tmd Teacher Name Role Phone Nhung LOPEZ MD, Steve Langston Primary Care Provider [phone] Reason for Visit * Reason Onset Date Comments Follow Up 6 1/2 month foll ow up. Edema and SOB ongoing but no worse. Denies chest pain, palpitations and dizziness. Medication Administration 04/03/2023 Flu an d/or Pneumo Inj Encounter Details Date Type Department Care Team Description 04/03/2023 Office Visit Cardiology, [facility] [address] [facility] [id number] Neri Carrizales PA-C [address] [facility] [place] [address] Need for prophylactic vaccination and inoculation against influenza*; Persistent atrial fibrillation (HCC); Cardiac pacemaker in situ; ASCVD (arteriosclerotic cardiovascular disease); Sinoatrial node dysfunction (HCC); Chronic diastolic heart failure (HCC) Allergies Active Allergy Reactions Severity Noted Date Comments Adhesive Tape 07/05/2022 Doxycycline Nausea/vomiting 11/03/2010 Metoclopramide Hcl Neuro complications (Please comment) 12/07/2010 Developed worsening tremor and lip smacking. Naproxen 01/23/2012 Can not tolerate-gets very emotional and depressed documented as of this encounter (statuses as of 04/05/2023) Medications Medication Sig Dispensed Refills Start Date End Date Status ASPIRIN 81 MG PO TABS 1 TABLET BY MOUTH MWF 0 0 03/27/20 06 Active PROBIOTIC PO CAPS daily 0 Active DOCQLACE 100 MG PO CAPSIndications:A bdominal pain, right upper quadrant TAKE TWO CAPSULES BY MOUTH DAILY 120 Cap 3 02/26/20 13 Active Additional Information Patient taking differently: 200 mgOralBID (.AM/PM), Reported on 09/13/2022 Polyethylene Glycol 3350 17 GM/SCOOP Oral Powder Take 17 g by mouth daily as needed for Constipation. 0 Active acetaminophen (TYLENOL) 500 MG Tablet Take 2 Tablets by mouth every 6 hours as needed for Pain. 100 Tab 0 12/25/19 20 Active Multiple Vitamins-Minerals (CENTRUM ADULTS) TABS Take by mouth daily. 0 Active Simethicone 80 MG Oral Tablet Chewable (Mylicon) Take 1 Tablet by mouth every 8 hours as needed for Gas. 0 Active OneTouch Delica Lancets 30GIndications:Ty pe 2 diabetes mellitus with hemoglobin A1c goal of less than 8.0% ([facility]) Use to test once daily DX E11.9 100 Each 3 07/20/19 21 Active Diclofenac Sodium 1 % External Gel Apply topically to affected area once for [address] dose[address] Apply to PLACE 4 GRAM TOPICALLY ON THE SKIN 4 TIMES A DAY TO RIGHT HIP 350 g 3 12/09/19 21 Active Biotin 16655 MCG Oral Tablet Take 1 Tablet by mouth daily. 0 Active Warfarin Sodium 4 MG Oral Tablet (Coumadin) Take 1 to 1&1/2 tablets daily as directed by anticoagulation pharmacist 135 Tablet 3 11/26/19 22 Active OneTouch Ultra Blue In Vitro Strip (Glucose Blood) Use to test once daily DX E11.9 100 Strip 3 12/20/19 22 Active Cetirizine HCl 10 MG Oral Tablet Take 1 Tablet by mouth in the morning. 0 07/16/19 23 Active Omeprazole 20 MG Oral Capsule Delayed Release (PriLOSEC) TAKE ONE CAPSULE BY MOUTH IN THE MORNING. 30 MINUTES BEFORE THE FIRST MEAL OF THE DAY 100 Capsule 1 12/09/19 23 024 Active DULoxetine HCl 60 MG Oral Capsule Delayed Release Particles (Cymbalta)Indicat ions:Moderate persistent asthma without complication TAKE ONE CAPSULE BY MOUTH EVERY MORNING DO NOT CUT, CRUSH OR CHEW 90 Capsule 3 09/19/19 23 024 Active Magnesium Oxide 400 MG Oral TabletIndications :ASCVD (arteriosclerotic cardiovascular disease) TAKE ONE TABLET BY MOUTH EVERY MORNING 90 Tablet 3 09/14/19 23 024 Active Diclofenac Sodium 1 % External Gel (Voltaren) APPLY 4 GRAMS TOPICALLY TO RIGHT HIP FOUR TIMES A DAY 350 g 3 09/04/19 23 024 Active Albuterol Sulfate HFA 108 (90 Base) MCG/ACT Inhalation Aerosol Solution INHALE TWO PUFFS BY MOUTH FOUR TIMES A DAY NEEDED FOR SHORTNESS OF BREATH 54 g 1 09/04/19 23 024 Active Potassium Chloride Elvi ER 10 MEQ Oral Tablet Extended ReleaseIndication s:ASCVD (arteriosclerotic cardiovascular disease) TAKE ONE TABLET BY MOUTH EVERY DAY WITH FUROSEMIDE. TAKE AND ADDITIONAL TABLET WHEN TAKING ADDITIONAL FUROSEMIDE 135 Tablet 2 08/27/19 23 024 Active Additional Information Patient taking differently: Taking 1 tab daily, Reported on 03/13/2023 Isosorbide Mononitrate ER 30 MG Oral Tablet Extended Release 24 Hour (Imdur)Indication s:CHOUDHARY (dyspnea on exertion) TAKE ONE TABLET BY MOUTH EVERY DAY IN THE MORNING 90 Tablet 2 08/27/19 23 024 Active Atorvastatin Calcium 40 MG Oral Tablet (Lipitor) TAKE ONE TABLET BY MOUTH EVERY MORNING 90 Tablet 1 12/26/19 23 024 Active Vitamin D 50 MCG (2000 UT) Oral Tablet Take 2,000 Units by mouth in the morning. 0 Active oxyCODONE-Acetami nophen 5-325 MG Oral Tablet (Percocet) Take 2 Tablets by mouth every 6 hours as needed for Pain, Moderate (Pain). Can take 1 regular strength Tylenol every 6 hours as well 240 Tablet 0 01/15/20 23 Active traZODone HCl 50 MG Oral Tablet (Desyrel) TAKE 1/2 TABLET BY MOUTH AT BEDTIME 45 Tablet 2 01/17/20 23 Active levETIRAcetam 500 MG Oral Tablet (Keppra) Take 1 Tablet by mouth in the morning and 1 Tablet before bedtime. 180 Tablet 1 01/24/20 23 Active Torsemide 20 MG Oral Tablet (Demadex) Take 1 Tablet by mouth in the morning and 1 Tablet in the evening. 90 Tablet 1 02/28/20 23 Active oxyCODONE-Acetami nophen 10-325 MG Oral TabletIndications :Pain Take 1 Tablet by mouth every 6 hours as needed for Severe Pain 120 Tablet 0 03/19/20 23 Active Metoprolol Succinate ER 25 MG Oral Tablet Extended Release 24 Hour (toPROL XL) Take 1 Tablet by mouth in the morning. 100 Tablet 3 04/03/20 23 Active Tacrolimus 0.1 % External Ointment (Protopic) APPLY TOPICALLY TO AFFECTED AREA TWICE DAILY APPLY TO FACE 60 g 5 04/04/20 22 023 Additional Information Patient not taking.Reported on 09/13/2022 Amiodarone HCl 200 MG Oral Tablet (Cordarone)Indica tions:Paroxysmal atrial fibrillation (HCC) TAKE ONE -HALF TABLET BY MOUTH EVERY DAY 50 Tablet 3 12/26/19 23 023 Discontinued Metoprolol Succinate ER 25 MG Oral Tablet Extended Release 24 Hour (toPROL XL) TAKE ONE-HALF TABLET BY MOUTH EVERY DAY 50 Tablet 0 12/28/19 23 023 Discontinued(Re fill) documented as of this encounter (statuses as of 04/05/2023) Active Problems Problem Noted Date Advanced care planning/counseling lj dutton 12/27/2022 Last Assessment & Plan: -patient does not have living will in writing -would like to make decisions based on the circumstances of the situation -encouraged patient and family to fill out documentation left by RN WALLACE Unspecified dementia, unspec ified severity, without behavioral disturbance, psychotic disturbance, mood disturbance, and anxiety 07/20/2022 Last Assessment & Plan: Stable, interactive today Age-related osteoporosis without current pathological fracture 02/14/2022 Hemiplegia, 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, recurrent epi sode, mild 07/19/2021 Paroxysmal atrial fibrillation Last Assessment & Plan: Amiodarone, coumadin Polymyalgia rheumatica 07/19/2021 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 07/19/2021 Hypertensive heart and kidne [...] X-Ray Additional Comments: Chronic diastolic heart failure 05/31/20 Cardiac pacemaker in situ 03/25/2020 Atrial fibrillation with RVR 12/09/2019 Unspecified open-angle glaucoma, stage u nspecified 12/09/2019 Gastroesophageal reflux disease without esophagitis 07/24/2019 Hyperparathyroidism, secondary renal 08/2018 Moderate persistent asthma without compl ication 03/11/2018 Last Assessment & Plan: -use albuterol MDI as needed -no recent exacerbation Spondylosis of lumbar region without mye lopathy or radiculopathy 03/11/2018 Venous insufficiency 12/14/2016 MEDICATION USE AGREEMENT 06/22/2014 Overview: Signed 12/22/13 Steve Hooker III, MD [facility] [place] Facet arthropathy, lumbar 10/07/2013 Type 2 diabetes mellitus with hemoglobin A1c goal of less than 8.0% 07/15/2013 Overview: ICD-10 update of inactive term History of tobacco use 02/18/2013 Hearing loss 02/18/2013 ADVANCE DIRECTIVE INFORMATION 08/09/2010 Overview: No, Advance Directive brochure given to patient at prior appointment. DYSLIPIDEMIA, GOAL LDL BELOW 70 05/30/20 Overview: Per Lipid Taxonomy. 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, not intractable, without status epilepticus 07/06/2020 07/19/2021 Type 2 diabetes mellitus wit h diabetic peripheral angiopathy without gangrene 12/09/2019 07/19/2021 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 3 chronic kidney disease 12/09/2019 06/26/2022 Sacroiliitis 07/24/2019 11/21/2022 Nephrolithiasis 04/08/2018 04/21/2019 Type 2 diabetes mellitus wit h stage 3 chronic kidney disease and hypertension 03/11/2018 06/26/2022 Inflammatory spondylopathy of lumbar region 08/1611/21/2022 Type 2 diabetes mellitus wit h chronic kidney disease and hypertension 05/29/2017 03/11/2018 Chronic kidney disease due to type 2 diabetes me llitus 11/16/2016 03/11/2018 HTN, goal below 130/80 11/28/2015 6 Overview: Per HTN Protocol Kidney disease, chronic, stage III (GFR 30-59 ml /min) 10/03/2015 01/22/2017 Overview: Per CKD protocol #1 Asthma in remission 08/04/2014 03/11/2018 Hypertension goal BP (blood pressure) < 140/80 0 10/12/2013 12/01/2015 Overview: Per HTN Protocol Right facial swelling 02/18/2013 12/06/2017 Chronic rhinitis 02/18/2013 06/13/2018 COPD, moderate 12/29/2012 12/29/2012 HTN, goal below 140/90 06/30/2012 4 HTN, goal below 140/80 02/04/2012 3 Overview: Per HTN Protocol #27. Asthma, mild persistent. Mod restrictive ds. 08/04/2014 Benign neoplasm of colon 02/24/2010 018 Overview: adenomatousa/repeat colonoscopy in 5 yrs HTN, GOAL BELOW 130/80 07/13/2009 2 Overview: Per HTN Taxonomy. Type 2 diabetes mellitus wit h hemoglobin A1c goal of less than 7.0% 04/14/2009 07/15/2013 Overview: Per Diabetes Taxonomy. ICD-10 update of inactive term Type 2 diabetes mellitus wit h hemoglobin A1c goal of less than 7.0% 01/03/2005 04/14/2009 Overview: Per Diabetes Taxonomy. ICD-10 update of inactive term Other specified glaucoma 05/05/2003 018 HYPERTENSIVE HRT DIS NOS 09/05/2002 009 Overview: Per Heart Failure Taxonomy Protocol. COPD, severity to be determined 12/10/2000 12/29/2012 Overview: PFT 10/2009 -- Moderate restrictive/obstructive lung disease, significant response to albuterol, mild hyperinflation HTN, goal below 140/90 0 Overview: Per HTN Taxonomy. Mixed dyslipidemia 05/30/2009 Overview: Per Lipid Taxonomy. Polymyalgia rheumatica 3 DEEP PHLEBITIS-LEG NEC 4 BENIGN NEOPLASM LG BOWEL 018 documented as of this encounter (statuses as of 04/05/2023) Immunizations Name Administration Dates Next Due COVID-19 mRNA, LNP-s, No Pre serve, 2-Dose Series ([employer]) 06/01/2021,10/15/2020,09/24/2020 Covid-19, Mrna, Lnp-s, Pf, B ivalent, [...] alcohol) every now and then per patient Sex Assigned at Date Recorded Female 09/15/2018 10:33 AM EDT Job Start Date Occupation Industry Not on file Not on file Not on file documented as of this encounter Last Filed Vital Signs Vital Sign Reading Time Taken Comments Blood Pressure 124/68 04/03/2023 2:35 PM EDT Pulse 64 04/03/2023 2:35 PM EDT Temperature - - Respiratory Rate 18 04/03/2023 2:35 PM EDT Oxygen Saturation - - Inhaled Oxygen Concentration - - Weight 76.4 kg (168 lb 8 oz) 04/03/2023 2:35 PM EDT Height - - Body Mass Index 30.33 08/21/2022 1:08 PM EST documented in this encounter Patient Instructions * Patient Instructions* Noel Hart LPN - 04/03/2023 2:37 PM EDT ~~PATIENT INSTRUCTIONS FOR FLU SHOT~~ Possible side effects of influenza vaccine, (flu shot), are usually mild and include: 1. Soreness or redness at injection site 2. Low grade fever 3. Body aches You may use Tylenol/Acetaminophen as needed for these symptoms. LET YOUR DOCTOR KNOW IMMEDIATELY IF YOU HAVE DIFFICULTY BREATHING OR SWALLOWING, EXPERIENCE ITCHINGOF FEET OR HANDS, HAVE SWELLING OF EYES, FACE OR INSIDE OF NOSE. documented in this encounter Progress Notes * Noel Hart LPN - 04/03/2023 2:37 PM EDT PRE - ADMINISTRATION DOCUMENTATION Are you experiencing any cold symptoms or fever? No Have you had Guillain-[place] Syndrome (an illness that causes paralysis) within the last 6 weeks? No Have you had the flu shot in the past? YES Have you ever had a reaction to the flu shot? No Noel Hart LPN, 04/03/2023 2:37 PM Immunization Administration Documentation Time Out Procedure Performed: Yes Patient Identified (Ask Name/Date of ): Yes Does the patient have a fever greater than 101 degrees today? No Patient allergic to latex? No VFC Stock: No Immunization(s) verified: Yes, Immunization Name: Flu, VIS Sheet(s) given: Yes Verified Side and Site: Yes Verified Shot(s) with Parent(s)/Patient: Yes * Neri Carrizales PA-C - 04/03/2023 2:34 PM EDT History of Present Illness: Rhea Diaz is a 88-year-old female followed by Dr. Magallanes, heretoday for routine cardiology follow-up. Patient last seen in this office by Dr. Magallanes on September 13, 2022. Patient hospitalized in September 2022 with a mechanical fall with resultant left hip fracture status post September 23, 2022 closed reduction and internal fixation with a long trochanteric fixation nailby Dr. Burgess. Course complicated by UTI. Went to [facility] x 3 weeks post discharge. Considerable memory impairment noted. Chest pressure every now and then, without rhyme or reason, not associated with activity. No palpitations. No unusual shortness of breath. Legs are wrapped every week via Home Health. Notes not liking to take diuretic therapy due to urinary incontinence/frequency. No nocturnal cough, orthopnea, or PND. No lightheadedness, dizziness, near syncope, or syncope. No epistaxis, hemoptysis, melena, hematochezia, or hematuria. Medications managed by daughter (not present today). Chronic stable myalgias and arthralgias. Issues Coronary Atherosclerosis with prior intervention with balloon angioplasty of the right coronary artery 1996. Repeat cardiac catheterization December 2011 no progression coronary disease. 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 Type II diabetes mellitus. Asthmatic lung disease. Irritable bowel syndrome. Polymyalgia rheumatica. Patient Active Problem List Diagnosis Code S/P angioplasty with stent Z95.820 ADVANCE DIRECTIVE INFORMATION ATHEROSCLEROTIC CORONARY DISEASE I25.10 DYSLIPIDEMIA, GOAL LDL BELOW 70 E78.5 History of tobacco use Z87.891 Hearing loss H91.90 Type 2 diabetes mellitus with hemoglobin A1c goal of less than 8.0% ([facility]) E11.9 Facet arthropathy, lumbar M47.816 MEDICATION USE AGREEMENT [id number] Venous insufficiency I87.2 Moderate persistent asthma without complication J45.40 Spondylosis of lumbar region without myelopathy or radiculopathy M47.816 Hyperparathyroidism, secondary renal ([facility]) N25.81 Gastroesophageal reflux disease without esophagitis K21.9 Atrial fibrillation with RVR ([facility]) I48.91 Unspecified open-angle glaucoma, stage unspecified H40.10X0 Cardiac pacemaker in situ Z95.0 Chronic diastolic heart failure ([facility]) I50.32 Hemiplegia, 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[facility]) I69.359 Major depressive disorder, recurrent episode, mild ([facility]) F33.0 Paroxysmal atrial fibrillation ([facility]) I48.0 Polymyalgia rheumatica ([facility]) M35.3 Type 2 diabetes mellitus with stage 3b chronic kidney disease (HCC) E11.22, N18.32 Hypertensive heart and kidney 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 and stage 3b chronic kidney disease (HCC) I13.0, I50.32, N18.32 Age-related osteoporosis without current pathological fracture M81.0 Unspecified dementia, unspecified severity, without behavioral disturbance, psychotic disturbance, mood disturbance, and anxiety (HCC) F03.90 Advanced care planning/counseling discussion Z71.89 Past Medical History: Diagnosis Date Asthma, mild persistent. Mod restrictive ds. 02/05/2011 Benign neoplasm of colon 02/24/10 adenomatousa/repeat colonoscopy in 5 yrs CAD (coronary artery disease) 1994 s/p angioplasty Closed fracture of fibula Diaphragmatic hernia DM type 2, goal A1c below 7 Esophageal reflux GLAUCOMA NEC 05/05/2003 Intermittent asthma with reliever use up to twice per week 10/2009 Other, multiple and ill-defined closed fractures of lower limb 09/2009 Phlebitis and thrombophlebitis of other deep vessels of lower extremities was on coumadin Past Surgical History: Procedure Laterality Date COLONOSCOPY 08/06/03 negative for residual/no new polyps/[place] COLONOSCOPY THRU STOMA, W/BIOPSY 02/24/10 adenomatousa/repeat colonoscopy in 5 yrs COLONOSCOPY, DIAGNOSTIC (RECTUM) 09/29/2013 COLONOSCOPY FLEXIBLE PROXIMAL DIAGNOSTIC performed by Aidan Ferrera DO at ENDOSCOPY [facility] CORONARY ARTERY DILATION, BALLOON 1994 PTC CYSTO/URETERO W/LITHOTRIPSY Left 03/08/2017 CYSTOURETHROSCOPY URETEROSCOPY WITH LITHOTRIPSY AND STENT INSERTION performed by Lea Villasenor MD at OR [facility] CYSTO/URETERO W/LITHOTRIPSY Left 03/22/2017 CYSTOURETHROSCOPY URETEROSCOPY WITH LITHOTRIPSY AND STENT INSERTION performed by Lea Villasenor MD at OR [facility] CYSTOSCOPY 05-16-2015 DIABETIC EYE EXAM 03/10/13 EGD, FLEXIBLE, DIAGNOSTIC 10/09/2010 hiatal hernia HEMORRHOIDECTOMY, SIMPLE, 1 COLUMN 10/16/2013 HEMORRHOIDECTOMY EXTERNAL AND INTERNAL SIMPLE performed by Neri Heaton MD at OR [facility] INFORMATION 11.7.02 intravitreal kenalog injection left eye for macular edema INFORMATION foot surgery bilateral INJECT DX/THER SUBSTANCE INTERLAMINAR LUMBAR/SACRAL W IMAGE GUIDE 04/13/2019 INJECTION SPINE LUMBAR OR SACRAL performed by Fredrick Mcdaniels DO at OR [facility] KNEE ARTHROSCOPY, DIAGNOSTIC Left L-/S-SPINE PARAVERTEBRAL FACET INJ,1 LEVEL 03/02/2019 L-/S-SPINE PARAVERTEBRAL FACET INJ, 1 LEVEL performed by Fredrick Deansins, DO at OR [facility] L-/S-SPINE PARAVERTEBRAL FACET INJ,1 LEVEL 06/01/2019 L-/S-SPINE PARAVERTEBRAL FACET INJ, 1 LEVEL performed by Fredrick Lus, DO at OR [facility] LAPAROSCOPY; CHOLECYSTECTOMY 08/17/10 Dr. Messina LIGATE/CUT OVIDUCT(S) 1965 Tubal Ligation MAMMOGRAM - BILATERAL 05/07/03 birad code 2 MAMMOGRAM - BILATERAL 05/13/06 Birad code 2/benign findings MAMMOGRAM - BILATERAL 05/17/08 birad 2 MAMMOGRAM DIAGNOSTIC BILATERAL 05/21/09 birad code 2 MAMMOGRAM OUTSIDE PROCEDURE 01/15/14 MAMMOGRAM SCREENING BILATERAL 05/30/10 birad code 2 MAMMOGRAM SCREENING-BILATERAL 05/08/04 birad code 2/yearly MAMMOGRAM SCREENING-BILATERAL 05/09/05 birad code 2/yearly mammograms MAMMOGRAM SCREENING-BILATERAL 05/14/07 birad code 2, benign, yearly recommended PFT COMPLETE B/A 10/26/09 moderate restrictive lung ds, sig reversibility, mild hyperinflation REMOVAL OF APPENDIX 1960 Appendectomy SACROILIAC JOINT INJECT W/GUIDANCE 06/18/2019 INJECTION SACROILIAC JOINT performed by Fredrick Mcdaniels, DO at OR [facility] SLEEP STUDY, W/O CPAP (APNEA SCREEN) 03/2007 negative STRESS ECHO (DOBUTAMINE) 10/26/09 LVH, EF 65-70%, mild L ventricular wall thickness, LV diastolic dysfunction- stage I, L atrium mildenlarged TOTAL HYSTERECTOMY 1977 [place] (Total Abdominal Hysterectomy) Family History Problem Relation Age of Onset Heart Disorder Mother Diabetes Mother @74 Lung Disorder Father silicosis-@55 Dementia Brother Lung Disorder Brother Diabetes Daughter Depression Son Depression Son Other (Other) Son neck problems, hernia Depression Son Anxiety Disorder Son Breast Cancer Aunt (Unspecified) Breast Cancer Aunt (Unspecified) breast-@67 Social History Socioeconomic History Marital status: Spouse name: Not on file Number of children: 4 Years of education: 12 Highest education level: Not on file Occupational History 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: [employer]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 04/11/2011 Steve Hooker III, MD Social Determinants of Health Financial Resource Strain: Not on file Food Insecurity: Not on file Transportation Needs: Not on file Physical Activity: Not on file Stress: Not on file Social Connections: Not on file Intimate Partner Violence: Not on file Housing Stability: Not on file Complete Review of Systems is as stated above, negative, or noncontributory. Review of patient's allergies indicates: Allergen Reactions Adhesive Tape Doxycycline Nausea/vomiting Metoclopramide Hcl Neuro complications (Please comment) Developed worsening tremor and lip smacking. Naprosyn [Naproxen] Can not tolerate-gets very emotional and depressed Current Outpatient Medications Medication Sig Dispense Refill ASPIRIN 81 MG PO TABS 1 TABLET BY MOUTH MWF 0 0 DOCQLACE 100 MG PO CAPS TAKE TWO CAPSULES BY MOUTH DAILY (Patient taking differently: Take 2 Capsules by mouth in the morning and 2 Capsules before bedtime.) 120 Cap 3 Polyethylene Glycol 3350 17 GM/SCOOP Oral Powder Take 17 g by mouth daily as needed for Constipation. acetaminophen (TYLENOL) 500 MG Tablet Take 2 Tablets by mouth every 6 hours as needed for Pain. 100Tab 0 Multiple Vitamins-Minerals (CENTRUM ADULTS) TABS Take by mouth daily. Simethicone 80 MG Oral Tablet Chewable (Mylicon) Take 1 Tablet by mouth every 8 hours as needed forGas. Biotin 93069 MCG Oral Tablet Take 1 Tablet by mouth daily. Warfarin Sodium 4 MG Oral Tablet (Coumadin) Take 1 to 1&1/2 tablets daily as directed by anticoagulation pharmacist 135 Tablet 3 Cetirizine HCl 10 MG Oral Tablet Take 1 Tablet by mouth in the morning. Omeprazole 20 MG Oral Capsule Delayed Release (PriLOSEC) TAKE ONE CAPSULE BY MOUTH IN THE MORNING. 30 MINUTES BEFORE THE FIRST MEAL OF THE DAY 100 Capsule 1 DULoxetine HCl 60 MG Oral Capsule Delayed Release Particles (Cymbalta) TAKE ONE CAPSULE BY MOUTH EVERY MORNING DO NOT CUT, CRUSH OR CHEW 90 Capsule 3 Magnesium Oxide 400 MG Oral Tablet TAKE ONE TABLET BY MOUTH EVERY MORNING 90 Tablet 3 Diclofenac Sodium 1 % External Gel (Voltaren) APPLY 4 GRAMS TOPICALLY TO RIGHT HIP FOUR TIMES A NXA888 g 3 Albuterol Sulfate HFA 108 (90 Base) MCG/ACT Inhalation Aerosol Solution INHALE TWO PUFFS BY MOUTH FOUR TIMES A DAY NEEDED FOR SHORTNESS OF BREATH 54 g 1 Potassium Chloride Elvi ER 10 MEQ Oral Tablet Extended Release TAKE ONE TABLET BY MOUTH EVERY DAY WITH FUROSEMIDE. TAKE AND ADDITIONAL TABLET WHEN TAKING ADDITIONAL FUROSEMIDE (Patient taking differently: Taking 1 tab daily) 135 Tablet 2 Isosorbide Mononitrate ER 30 MG Oral Tablet Extended Release 24 Hour (Imdur) TAKE ONE TABLET BY MOUTH EVERY DAY IN THE MORNING 90 Tablet 2 Atorvastatin Calcium 40 MG Oral Tablet (Lipitor) TAKE ONE TABLET BY MOUTH EVERY MORNING 90 Tablet 1 Amiodarone HCl 200 MG Oral Tablet (Cordarone) TAKE ONE -HALF TABLET BY MOUTH EVERY DAY 50 Tablet 3 Metoprolol Succinate ER 25 MG Oral Tablet Extended Release 24 Hour (toPROL XL) TAKE ONE-HALF TABLETBY MOUTH EVERY DAY (Patient taking differently: 0.5 Tablets.) 50 Tablet 0 Vitamin D 50 MCG (2000 UT) Oral Tablet Take 2,000 Units by mouth in the morning. oxyCODONE-Acetaminophen 5-325 MG Oral Tablet (Percocet) Take 2 Tablets by mouth every 6 hours as needed for Pain, Moderate (Pain). Can take 1 regular strength Tylenol every 6 hours as well 240 Tablet0 traZODone HCl 50 MG Oral Tablet (Desyrel) TAKE 1/2 TABLET BY MOUTH AT BEDTIME 45 Tablet 2 levETIRAcetam 500 MG Oral Tablet (Keppra) Take 1 Tablet by mouth in the morning and 1 Tablet beforebedtime. 180 Tablet 1 Torsemide 20 MG Oral Tablet (Demadex) Take 1 Tablet by mouth in the morning and 1 Tablet in the evening. 90 Tablet 1 oxyCODONE-Acetaminophen 10-325 MG Oral Tablet Take 1 Tablet by mouth every 6 hours as needed for Severe Pain 120 Tablet 0 PROBIOTIC PO CAPS daily OneTouch Delica Lancets 30G Use to test once daily DX E11.9 100 Each 3 Diclofenac Sodium 1 % External Gel Apply topically to affected area once for 1 dose. Apply to [address]4 GRAM TOPICALLY ON THE SKIN 4 TIMES A DAY TO RIGHT HIP 350 g 3 OneTouch Ultra Blue In Vitro Strip (Glucose Blood) Use to test once daily DX E11.9 100 Strip 3 Tacrolimus 0.1 % External Ointment (Protopic) APPLY TOPICALLY TO AFFECTED AREA TWICE DAILY APPLY TOFACE (Patient not taking: Reported on 09/13/2022) 60 g 5 No current facility-administered medications for this visit. OBJECTIVE/PHYSICAL EXAMINATION: BP 124/68 | Pulse 64 | Resp 18 | Wt 76.4 kg (168 lb 8 oz) | BMI 30.33 kg/m | BSA 1.84 m General: Alert and oriented to person and place. Accompanied by son. No acute distress. Pleasant. Comfortable. Cooperative. Eyes: PER. Conjunctiva pink, sclera clear. HENT: Normocephalic. Atraumatic. Neck: No carotid bruits. No JVD. No HJR. Heart: Irregularly irregular. Systolic murmur. Lungs: Diminished. Clear to auscultation. Abdomen: +BS. Soft. Nontender. No masses. No organomegaly. Extremities: Legs wrapped bilaterally. Mild edema only. No clubbing. No cyanosis Pulses: radial=2/4, posterior tibial=0/4. Limited neurological examination: No focal deficit. IMPRESSION: Complex 88-year-old female returning today in routine follow-up. Pacemaker interrogation on February 28, 2023 personally reviewed, revealing persistent atrial fibrillation since December 2021 with a controlled average ventricular response. AP 0.5%. 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 Options of management discussedwith patient and son. Blood pressure appropriately controlled. Volume status is compensated. Patient without significant anginal symptoms. Via shared decision making will discontinue amiodarone, concurrently increasing metoprolol succinate from 12.5 mg/day to 25 mg/day. CC: [facility], RE: above changes. Cardiology follow-up as previously scheduled with Dr. Magallanes in September 2023 or as needed. ER with emergencies. Neri Carrizales PA-C Department of Cardiology documented in this encounter Nursing Notes * Noel Hart LPN - 04/03/2023 2:34 PM EDT Patient identified by full name and date of Chief Complaint Patient presents with Follow Up 6 1/2 month follow up. Edema and SOB ongoing but no worse. Denies chest pain, palpitations and dizziness. Examination Room: 1 Name: Rhea Diaz Date of : (1935). Reason for Visit: 6 month follow up Interim Hospitalization(s): Denies Problems/Concerns: See chief complaint Chest Pain/SOB: See chief complaint [facility] Discussed: Yes [facility] is a way you can talk to your provider online through e-mail. Would you like to sign up? I can activate it for you? ALREADY ACTIVE Patient was instructed to not get up on the exam table until directed and assisted by their provider; patient is to remain seated in the chair/ wheelchair/ exam table for fall prevention and safety reasons. Patient is aware to have assistance to step down off exam table with personnel. Patient voiced full comprehension of instructions. documented in this encounter Plan of Treatment Upcoming Encounters Date Type Specialty Care Team Description 04/08/2023 Laboratory Laboratory Processing [facility] Mobile Home Draw [address] [place] [address] 04/09/2023 Anticoagulation Pharmacy [facility] [address] [place] [address] 04/17/2023 [facility] Visit [facility] [address] RN [address] [place] [address] 09/23/2023 Office Visit Cardiology Adam Magallanes MD [address] [place] [address] Health Maintenance Due Date Last Done Comments Depression Screening 09/16/2019 09/15/2018 Diabetic Foot Exam 09/12/2021 09/12/2020, 0 12/09/2019, 01/07/2019, Additional history exists *BISPHONATE OR OTHER ACCEPTABLE MEDICATION NEEDED FOR OSTEOPOROSIS (REFER TO SMARTSET #1146) 02/17/2022 Albumin/Creatinine Ratio 07/27/2022 022, 01/15/2020, 04/07/2019, Additional history exists COVID-19 Vaccine ( season) 2023 07/12/2022, 06/01/2021, 10/15/2020, Additional history exists CKD PHOS USE SMARTSET 72282 03/02/202302/15, 07/04/2021, 09/12/2020, Additional history exists HbA1c 05/29/2023 11/27/2022, 10/17, 07/25/2021, Additional history exists DIABETES-EYE EXAM 07/20/2023 07/20/2022, , 07/13/2019, Additional history exists CKD HGB USE SMARTSET 61992 12/18/202312/17, 12/17/2022, 11/27/2022, Additional history exists DXA Scan 12/27/2023 12/26/2021, 05/17, 05/26/2014, Additional history exists DTaP,Tdap,and Td Vaccines (2 - Td or Tdap) 02/01/2025 02/01/2015, 11/20/2007, 09/21/1998 Pneumococcal Vaccine: 65+ Years Completed 08/04/2014, 12/29/2009 Zoster Vaccines Completed 11/14/2018, 10/15, 05/30/2018, Additional history exists VITAMIN D LEVEL ONCE IN A LIFETIME-USE SMARTSET# 54316 Completed 07/04/2021, 09/12/2020, 01/11/2020, Additional history exists Influenza Vaccine (FLU shot) Completed , 07/10/2022, 03/27/2021, Additional history exists GARDASIL-HPV IMMUNIZATION SERIES Aged Out No longer eligible based on patient's age to complete this topic Hepatitis B Aged Out No longer eligi ble based on patient's age to complete this topic MENINGOCOCCAL (MENACTRA/MENVEO) Aged Out No longer eligible based on patient's age to complete this topic documented as of this encounter Medical Devices Not on filedocumented as of this encounter Visit Diagnoses Diagnosis Need for prophylactic vaccination and inoculation against influenza- Primary Persistent atrial fibrillation (HCC) Atrial fibrillation Cardiac pacemaker in situ ASCVD (arteriosclerotic cardiovascular disease) Unspecified cardiovascular disease Sinoatrial node dysfunction (HCC) Sinoatrial node dysfunction Chronic diastolic heart failure (HCC) Chronic diastolic heart failure documented in this encounter Advance Directives Latest [...] and were consensually agreed upon. Care Teams Tmd Teacher Relationship Specialty Start Date End Date Steve Hooker III, MD [address] [place] [address] PCP - General 01/30/1996 documented as of this encounter
--- OUTSIDE RECORDS SUMMARY | 2023-06-27 02:55 | External Medical Summary | Summary of Care ---
Author Name Unknown Organization [facility] Address [address] [place] [address] Phone [phone] Care Team Providers Care Career Services Manager Name Role Phone Nhung LOPEZ MD, Steve Langston Primary Care Provider [phone] Reason for Visit * Reason Comments Dosage Adjustment Via Phone (anticoag Cl inic) Encounter Details Date Type Department Care Team (Latest Contact Info) Description 04/09/2023 6:00 AM EDT Anticoagulation Pharmacy Call Center [phone] [place] [address] [facility] [address] [facility] [place] [address] Atrial fibrillation with RVR ([facility])* Allergies Active Allergy Reactions Criticality Noted Date Comments Adhesive Tape 07/05/2022 Doxycycline Nausea/vomiting 11/03/2010 Metoclopramide Hcl Neuro complications (Please comment) 12/07/2010 Developed worsening tremor and lip smacking. Naproxen 01/23/2012 Can not tolerate-gets very emotional and depressed documented as of this encounter (statuses as of 04/09/2023) Medications Medication Sig Dispensed Refills Start Date [...] A1c goal of less than 8.0% ([facility]) Use to test once daily DX E11.9 100 Each 3 1 Active Diclofenac Sodium 1 % External Gel Apply topically to affected area once for [address] GRAM TOPICALLY ON THE SKIN 4 TIMES A DAY TO RIGHT HIP 350 g 3 1 Active Biotin 01058 MCG Oral Tablet Take 1 Tablet by [...] 350 g 3 3 09/03/19 24 Active Albuterol Sulfate HFA 108 (90 Base) MCG/ACT Inhalation Aerosol Solution INHALE TWO PUFFS BY MOUTH FOUR TIMES A DAY NEEDED FOR SHORTNESS OF BREATH 54 g 1 3 09/03/19 24 Active Potassium Chloride Elvi [...] the evening. 90 Tablet 1 3 Active oxyCODONE-Acetamino phen 10-325 MG Oral TabletIndications:P ain Take 1 Tablet by mouth every 6 hours as needed for Severe Pain 120 Tablet 0 3 Active Metoprolol Succinate ER 25 MG Oral Tablet Extended Release 24 Hour (toPROL XL) Take 1 Tablet by mouth in the morning. 100 Tablet 3 3 Active documented as of this encounter (statuses as of 04/09/2023) Active Problems Problem Noted Date Diagnosed Date [...] 12/22/13 Steve Hooker III, MD [facility] Facet arthropathy, lumbar 10/07/2013 Type 2 diabetes [...] as of this encounter (statuses as of 04/09/2023) Resolved Problems Problem Noted Date Diagnosed Date [...] as of this encounter (statuses as of 04/09/2023) Immunizations Name Administration Dates Next Due COVID-19 mRNA, LNP-s, No Pre serve, 2-Dose Series ([employer]) 06/01/2021,10/15/2020,09/24/2020 Covid-19, Mrna, Lnp-s, Pf, B [...] as of this encounter Progress Notes * Miguel A De La Rosa CPhT - 04/09/2023 2:29 PM EDT Contacts Type Contact Phone/Fax 04/09/2023 02:23 PM EDT Phone (Outgoing) RUFINO BARRIENTOS (Emergency Contact) [phone] Left Message Subjective Advised patient to contact Anticoagulation Clinic if any unusual bruising or bleeding, recent illness, changes in medication, or questions/concerns. PT/INR results, Coumadin dose instructions, and next PT/INR date communicated as noted by Pharmacist: Yes Miguel A De La Rosa CPhT 04/09/2023, 2:29 PM * Lea Espana [facility] - 04/09/2023 9:53 AM EDT Images from the original note were not included. Coumadin Clinic (region specific) Objective Current Warfarin Dose As of 04/09/2023 Warfarin maintenance plan: 6 mg (4 mg x 1.5) every Mon, Fri; 4 mg (4 mg x 1) all other days INR Result As of 04/09/2023 INR goal: 2.0-3.0 INR used for dosin.1 (04/08/2023) Assessment & Plan Warfarin Plan As of 04/09/2023 Full warfarin instructions: 04/09: Hold; Otherwise 6 mg every Mon, Fri; 4 mg all other days Next INR check: 04/22/2023 Repeat PT/INR in 2 week(s) Weekly dose: not changed Additional Dosing Information: Description GML - Call Rufino with results/dosing Amiodarone decreased 01/2021 Tech to contact patient with dose instructions as noted. Lea Espana RPh 04/09/2023, 9:53 AM documented in this encounter Plan of Treatment Upcoming Encounters Date Type Department Care Team (Late st Contact Info) Description 04/17/2023 10:00 AM EDT Home Visit [facility] [address] [place] [address], [facility] [address] [place] [address] 04/22/2023 9:40 AM EST Laboratory Lab Mobile Phlebotomy [facility] [address] [place] [address] [facility] Mobile Home Draw [address] [place] [address] 04/23/2023 6:00 AM EST Anticoagulation Pharmacy Call Center [phone] [facility] [place] [address] [facility] [address] [facility] [place] [address] 09/23/2023 3:30 PM EDT Office Visit Cardiology, [facility] [address] [place] [address] Adam Magallanes MD [address] [place] [address] Health Maintenance Due Date Last Done Comments [...] Additional history exists CKD PHOS USE SMARTSET 61044 03/02/202302/15, 07/04/2021, 09/12/2020, Additional history exists HbA1c 05/29/2023 11/27/2022, 10/17, 07/25/2021, Additional history exists DIABETES-EYE EXAM 07/20/2023 07/20/2022, , 07/13/2019, Additional history exists CKD HGB USE SMARTSET 41182 12/18/202312/17, 12/17/2022, 11/27/2022, Additional history exists DXA Scan 12/27/2023 12/26/2021, 05/17, 05/26/2014, Additional history exists DTaP,Tdap,and Td Vaccines (2 - Td or Tdap) 02/01/2025 02/01/2015, 11/20/2007, 09/21/1998 Pneumococcal Vaccine: 65+ Years Completed 08/04/2014, 12/29/2009 Zoster Vaccines Completed 11/14/2018, 10/15, 05/30/2018, Additional history exists VITAMIN D LEVEL ONCE IN A LIFETIME-USE SMARTSET# 52405 Completed 07/04/2021, 09/12/2020, 01/11/2020, Additional history exists [...] and were consensually agreed upon. Care Teams Career Services Manager Relationship Specialty Start Date End Date Setve Hooker III, MD [address] [place] [address] PCP - General 01/30/1996 documented as of this encounter
--- OUTSIDE RECORDS SUMMARY | 2023-06-27 02:55 | External Medical Summary ---
Author Name Unknown Address Unknown Organization K01:LABORATORY [facility] [place] - [address] [place] [address] Laboratory Report Ordering Provider Test Date Status LOURDES DE GUZMAN 04/08/2023 10:52:00 Final Standing order for pt/inr. < br/>Please draw pt/inr every 1 to 4 weeks as requested
Results to [facility]tico[facility]

Warfarin Therapy
INR: 2.0-3.0 conventional anticoagulation
INR: 2.5-3.5 high intensity anticoagulation Observation Date Value Abnormality Reference (Units ) Status PT 04/08/2023 10:52:00 31.8 Above high normal 11 .6-15.2 (seconds) Final INR 04/08/2023 10:52:00 3.1 Above high normal 0. 8-1.2 Final Performing Location LABORATORY [facility] - [address] [place] [address]
--- OUTSIDE RECORDS SUMMARY | 2023-06-27 02:55 | External Medical Summary | Summary of Care ---
Author Name Unknown Organization [facility] Address [address] [place] [address] Phone [phone] Care Team Providers Care Java Technical Architect Name Role Phone Nhung LOPEZ MD, Steve Langston Primary Care Provider [phone] Reason for Visit * Reason Onset Date Comments Appointment 04/16/2023 Encounter Details Date Type Department Care Team ([facility] Contact Info) Description 04/16/2023 Telephone [facility] [address] [place] [address] Lisa Kim, Community Health Senior Manager [place] Appointment Allergies Active Allergy Reactions Criticality Noted Date Comments Adhesive Tape 07/05/2022 Doxycycline Nausea/vomiting 11/03/2010 Metoclopramide Hcl Neuro complications (Please comment) 12/07/2010 Developed worsening tremor and lip smacking. Naproxen 01/23/2012 Can not tolerate-gets very emotional and depressed documented as of this encounter (statuses as of 04/16/2023) Medications Medication Sig Dispensed Refills Start Date [...] goal of less than 8.0% ([facility]) Use to test once daily DX E11.9 100 Each 3 1 Active Diclofenac Sodium 1 % External Gel Apply topically to affected area once for [address] dose. [address] 4 GRAM TOPICALLY ON THE SKIN 4 TIMES A DAY TO RIGHT HIP 350 g 3 1 Active Biotin 82534 MCG Oral Tablet Take 1 Tablet by [...] 54 g 1 3 04/12/20 24 Active documented as of this encounter (statuses as of 04/16/2023) Active Problems Problem Noted Date Diagnosed Date [...] 12/22/13 Steve Hooker III, MD [facility] Facet arthropathy, lumbar 10/07/2013 Type 2 diabetes [...] as of this encounter (statuses as of 04/16/2023) Resolved Problems Problem Noted Date Diagnosed Date [...] as of this encounter (statuses as of 04/16/2023) Immunizations Name Administration Dates Next Due COVID-19 [...] encounter Miscellaneous Notes * Telephone Encounter - Lisa Kim, Community Health Senior Manager [place] - 04/16/2023 12:14 PM EDT Outbound call to Saray to make her aware we had to reschedule the appointment for 04/17/23 to 04/30/23 @ 4:00 pm. Left a voicemail asking them to call and confirm the appointment ROSELINE Alejandro documented in this encounter Plan of Treatment Upcoming Encounters Date Type Department Care Team (Late st Contact Info) Description 04/22/2023 9:40 AM EST Laboratory Lab [place] [address] [place] [address] [facility] Mobile Home Draw [address] [place] [address] 04/23/2023 6:00 AM EST Anticoagulation Pharmacy Call Center [phone] [place] [address] [facility], [facility] [place] [address] [facility] [place] [address] 04/30/2023 4:00 PM EST [facility] Visit [facility], [facility] [address] [facility] [place] [address], [facility] [address] [place] [address] 09/23/2023 3:30 PM EDT Office Visit Cardiology, [facility] [address] [place] [address] Adam Magallanes MD [address] [place] [address] Health Maintenance Due Date Last Done Comments [...] Additional history exists CKD PHOS USE SMARTSET 84759 03/02/202302/15, 07/04/2021, 09/12/2020, Additional history exists HbA1c 05/29/2023 11/27/2022, 0506/2021, 07/25/2021, Additional history exists Diabetic Eye Exam 07/20/2023 07/20/2022, , 07/13/2019, Additional history exists CKD HGB USE SMARTSET 65363 12/18/202312/17, 12/17/2022, 11/27/2022, Additional history exists DXA Scan 12/27/2023 12/26/2021, 05/17, 05/26/2014, Additional history exists DTaP,Tdap,and Td Vaccines (2 - Td or Tdap) 02/01/2025 02/01/2015, 11/20/2007, 09/21/1998 Pneumococcal Vaccine: 65+ Years Completed 08/04/2014, 12/29/2009 Zoster Vaccines Completed 11/14/2018, 10/15, 05/30/2018, Additional history exists VITAMIN D LEVEL ONCE IN A LIFETIME-USE SMARTSET# 00336 Completed 07/04/2021, 09/12/2020, 01/11/2020, Additional history exists [...] and were consensually agreed upon. Care Teams Java Technical Architect Relationship Specialty Start Date End Date Steve Hooker III, MD [address] [facility] [place] [address] PCP - General 01/30/1996 documented as of this encounter
--- OUTSIDE RECORDS SUMMARY | 2023-06-27 02:55 | External Medical Summary | Summary of Care ---
Author Name Unknown Organization [facility] Address [address] [place] [address] Phone [phone] Care Team Providers Care Personnel Technician Name Role Phone Nhung LOPEZ MD, Christiano Langston Primary Care Provider [phone] Reason for Visit * Reason Comments Medication Refill Encounter Details Date Type Department Care Team (Late st Contact Info) Description 04/13/2023 Refill Family Practice [facility] [address] [facility] [address] Christiano Harkins III, MD [address] [place] [address] Allergies Active Allergy Reactions Criticality Noted Date Comments Adhesive Tape 07/05/2022 Doxycycline Nausea/vomiting 11/03/2010 Metoclopramide Hcl Neuro complications (Please comment) 12/07/2010 Developed worsening tremor and lip smacking. Naproxen 01/23/2012 Can not tolerate-gets very emotional and depressed documented as of this encounter (statuses as of 04/13/2023) Medications Medication Sig Dispensed Refills Start Date [...] HIP 350 g 3 1 Active Biotin 98681 MCG Oral Tablet Take 1 Tablet by [...] 54 g 1 3 04/12/20 24 Active Albuterol Sulfate HFA 108 (90 Base) MCG/ACT Inhalation Aerosol Solution INHALE TWO PUFFS BY MOUTH FOUR TIMES A DAY NEEDED FOR SHORTNESS OF BREATH 54 g 1 3 04/13/20 23 Discontinu ed(Refill) documented as of this encounter (statuses as of 04/13/2023) Active Problems Problem Noted Date Diagnosed Date [...] hard", "I look ") Medication Regimen: Beta Zayar Therapy: Metoprolol Succinate (ER) MARISABEL Inhibitor/ARB Therapy: [...] 12/22/13 Christiano Harkins III, MD [facility] [place] Facet arthropathy, lumbar 10/07/2013 Type 2 diabetes [...] as of this encounter (statuses as of 04/13/2023) Resolved Problems Problem Noted Date Diagnosed Date [...] as of this encounter (statuses as of 04/13/2023) Immunizations Name Administration Dates Next Due COVID-19 mRNA, LNP-s, No Pre serve, 2-Dose Series ([employer]) 06/01/2021,10/15/2020,09/24/2020 Covid-19, Mrna, Lnp-s, Pf, B [...] encounter Miscellaneous Notes * Telephone Encounter - Jean Paul Clancy [facility] - 04/13/2023 10:35 AM EDT Signed Prescriptions: Disp Refills Albuterol Sulfate HFA 108 (90 Base) MCG/AC*54 g 1 Sig: INHALE TWO PUFFS BY MOUTH FOUR TIMES A DAY NEEDED FOR SHORTNESS OF BREATHAuthorizing Provider: CHRISTIANO HARKINS III User: JEAN PAUL CLANCY Electronically signed by Jean Paul Clancy [facility] at 04/13/2023 10:35 AM EDT documented in this encounter Plan of Treatment Upcoming Encounters Date Type Department Care Team (Late st Contact Info) Description 04/17/2023 10:00 AM EDT Home Visit [facility] at [facility] [address] [place] [address] [place] [address] 04/22/2023 9:40 AM EST Laboratory Lab Mobile Phlebotomy [facility] [address] [place] [address] [facility] Mobile Home Draw [address] [facility] [place] [address] 04/23/2023 6:00 AM EST Anticoagulation Pharmacy Call Center [phone] [place] [address] [facility], [facility] [address] [facility] [place] [address] 09/23/2023 3:30 PM EDT Office Visit Cardiology, [facility] [address] [place] [address] Adam Magallanes MD [address] [place] [address] Health Maintenance Due Date Last Done Comments [...] Additional history exists CKD PHOS USE SMARTSET 83304 03/02/202302/15, 07/04/2021, 09/12/2020, Additional history exists HbA1c 05/29/2023 11/27/2022, 0506/2021, 07/25/2021, Additional history exists DIABETES-EYE EXAM 07/20/2023 07/20/2022, , 07/13/2019, Additional history exists CKD HGB USE SMARTSET 08085 12/18/202312/17, 12/17/2022, 11/27/2022, Additional history exists DXA Scan 12/27/2023 12/26/2021, 05/17, 05/26/2014, Additional history exists DTaP,Tdap,and Td Vaccines (2 - Td or Tdap) 02/01/2025 02/01/2015, 11/20/2007, 09/21/1998 Pneumococcal Vaccine: 65+ Years Completed 08/04/2014, 12/29/2009 Zoster Vaccines Completed 11/14/2018, 10/15, 05/30/2018, Additional history exists VITAMIN D LEVEL ONCE IN A LIFETIME-USE SMARTSET# 07297 Completed 07/04/2021, 09/12/2020, 01/11/2020, Additional history exists [...] and were consensually agreed upon. Care Teams Personnel Technician Relationship Specialty Start Date End Date Nhung LOPEZ, Christiano Langston MD [address] [facility] [place] [address] PCP - General 01/30/1996 documented as of this encounter
--- OUTSIDE RECORDS SUMMARY | 2023-06-27 02:55 | External Medical Summary ---
Author Name Unknown Address Unknown Organization K01:LABORATORY [facility] [place] - [address] [place] [address] Laboratory Report Ordering Provider Test Date Status LOURDES DE GUZMAN 04/22/2023 11:05:00 Final Standing order for pt/inr. < br/>Please draw pt/inr every 1 to 4 weeks as requested
Results to [facility]ticoagulation [facility]

Warfarin Therapy
INR: 2.0-3.0 conventional anticoagulation
INR: 2.5-3.5 high intensity anticoagulation Observation Date Value Abnormality Reference (Units ) Status PT 04/22/2023 11:05:00 52.4 Above high normal 11.6-15.2 (seconds) Final INR 04/22/2023 11:05:00 5.8 Above upper panic limits 0.8-1.2 Final Performing Location LABORATORY [facility] [place] - [address] [place] [address]
--- OUTSIDE RECORDS SUMMARY | 2023-06-27 02:56 | External Medical Summary | Summary of Care ---
Author Name Unknown Organization [facility] Address [address] [place] [address] Phone [phone] Care Team Providers Care Ancillary Services Manager Therapy Name Role Phone Nhung LOPEZ MD, Steve Langston Primary Care Provider [phone] Reason for Visit * Reason Onset Date Comments Medication Problem 01/11/2023 Encounter Details Date Type Department Care Team Description 01/11/2023 Telephone Pharmacy, [facility] [address] [place] [address] Juan Diego Vee, [facility] [address] [place] [address] Medication Problem Allergies Active Allergy Reactions Severity Noted Date Comments Adhesive Tape 07/05/2022 Doxycycline Nausea/vomiting 11/03/2010 Metoclopramide Hcl Neuro complications (Please comment) 12/07/2010 Developed worsening tremor and lip smacking. Naproxen 01/23/2012 Can not tolerate-gets very emotional and depressed documented as of this encounter (statuses as of 03/13/2023) Medications Medication Sig Dispensed Refills Start Date [...] A1c goal of less than 8.0% ([facility]) Use to test once daily DX E11.9 100 Each 3 1 Active Diclofenac Sodium 1 % External Gel Apply topically to affected area once for [address] PLACE 4 GRAM TOPICALLY ON THE SKIN 4 TIMES A DAY TO RIGHT HIP 350 g 3 1 Active Biotin 28385 MCG Oral Tablet Take 1 Tablet by mouth daily. 0 Active Warfarin Sodium 4 MG Oral Tablet (Coumadin) Take 1 to 1&1/2 tablets daily as directed by anticoagulation pharmacist 135 Tablet 3 2 Active OneTouch Ultra Blue In Vitro Strip (Glucose Blood) Use to test once daily DX E11.9 100 Strip 3 2 Active Tacrolimus 0.1 % External Ointment (Protopic) APPLY TOPICALLY TO AFFECTED AREA TWICE DAILY APPLY TO FACE 60 g 5 2 04/04/20 23 Active Additional Information Patient not taking.Reported on 09/13/2022 Pimecrolimus 1 % External Cream (Elidel) APPLY TOPICALLY TO AFFECTED AREA 2 TIMES PER DAY 60 g 2 2 03/30/20 23 Active Additional Information Patient not taking.Reported on 09/13/2022 Cetirizine HCl 10 MG Oral Tablet Take [...] 90 Tablet 1 3 12/25/19 24 Active Amiodarone HCl 200 MG Oral Tablet (Cordarone)Indicat ions:Paroxysmal atrial fibrillation (HCC) TAKE ONE -HALF TABLET BY MOUTH EVERY DAY 50 Tablet 3 3 12/25/19 24 Active Metoprolol Succinate ER 25 MG Oral Tablet Extended Release 24 Hour (toPROL XL) TAKE ONE-HALF TABLET BY MOUTH EVERY DAY 50 Tablet 0 3 12/27/19 24 Active Additional Information Patient taking differently: 12.5 mg, Reported on 03/13/2023 Vitamin D 50 MCG (1999 UT) Oral Tablet Take 2,000 Units by mouth in the morning. 0 Active oxyCODONE-Acetamin ophen 5-325 MG Oral Tablet (Percocet) Take 2 Tablets by mouth every 6 hours as needed for Pain, Moderate (Pain). Can take 1 regular strength Tylenol every 6 hours as well 240 Tablet 0 3 Active Torsemide 20 MG Oral Tablet (Demadex) Take 1 Tablet by mouth in the morning and 1 Tablet in the evening. 90 Tablet 1 3 02/28/20 23 Discontinu ed(Refill) traZODone HCl 50 MG Oral Tablet (Desyrel) TAKE 1/2 TABLET BY MOUTH AT BEDTIME 45 Tablet 2 2 01/15/20 23 Discontinu ed(Refill) levETIRAcetam 500 MG Oral Tablet (Keppra) TAKE ONE TABLET BY MOUTH TWICE A DAY 180 Tablet 1 2 01/23/20 23 Discontinu ed(Refill) oxyCODONE-Acetamin ophen 10-325 MG Oral TabletIndications: Pain Take 1 Tablet by mouth every 6 hours as needed for severe Pain 120 Tablet 0 3 02/16/20 23 Discontinu ed(Refill) documented as of this encounter (statuses as of 03/13/2023) Active Problems Problem Noted Date Advanced care [...] epi sode, mild 07/19/2021 Paroxysmal atrial fibrillation 2 Last Assessment & Plan: Amiodarone, coumadin Polymyalgia [...] Overview: Signed 12/22/13 Steve Hooker III, MD [facility] [place] Facet arthropathy, lumbar 10/07/2013 Type 2 diabetes [...] as of this encounter (statuses as of 03/13/2023) Resolved Problems Problem Noted Date Resolved Date [...] as of this encounter (statuses as of 03/13/2023) Immunizations Name Administration Dates Next Due COVID-19 mRNA, LNP-s, No Pre serve, 2-Dose Series (Pfizer) 06/01/2021,10/15/2020,09/24/2020 Covid-19, Mrna, Lnp-s, Pf, B ivalent, 10 Mcg, IM, 5-11 yrs (Pfizer) 07/12/2022 H1N1 2009 Influenza, IM 06/28/2009 PPD 07/06/2022 Pneumococcal Conjugate Vacc, 13 Valent (Prevnar) 08/04/2014 Pneumococcal Polysaccharide PPV23 (Pneumovax) 12/29/2009 Season Influenza, Quad, PF, Adjuvanted, 65+ Yrs, IM (FLUAD) 06/08/2020 Seasonal Influenza, PF, 6 mo ns & Above, IM , (Flulaval) 03/11/2018,05/29/2017 Seasonal Influenza, Quadriva lent Hd (Fluzone Hd) 03/27/2021 Seasonal Influenza, Quadriva lent Hd, 65+ Yrs [...] encounter Miscellaneous Notes * Telephone Encounter - Juan Diego Vee RPh - 01/11/2023 12:39 PM EDT Oxycodone is on backorder. I have none in stock. Please advise. documented in this encounter Plan of Treatment Upcoming Encounters Date Type Specialty Care Team Description 03/25/2023 Laboratory Laboratory Processing [facility] [place], [facility] Mobile Home Draw [address] [place] [address] 03/26/2023 [facility] [address] [facility] [place] [address] 04/03/2023 Office Visit Cardiology Neri Carrizales PA-C [address] [place] [address] 04/17/2023 Home Visit [facility] [address] RN [address] [place] [address] 09/23/2023 Office Visit Cardiology Adam Magallanes MD [address] [place] [address] Health Maintenance Due Date Last Done Comments Depression Screening 09/16/2019 09/15/2018 Diabetic Foot Exam 09/12/2021 09/12/2020, 0 12/09/2019, 01/07/2019, Additional history exists *BISPHONATE OR OTHER ACCEPTABLE MEDICATION NEEDED FOR OSTEOPOROSIS (REFER TO SMARTSET #1146) 02/17/2022 Albumin/Creatinine Ratio 07/27/20222 022, 01/15/2020, 04/07/2019, Additional history exists COVID-19 Vaccine (4 - Pfizer risk series) 09/06/2022 07/12/2022, 06/01/2021, 10/15/2020, Additional history exists Influenza Vaccine (FLU shot) (#1) 2023 07/10/2022, 03/27/2021, 06/08/2020, Additional history exists CKD PHOS USE SMARTSET 47516 03/02/202302/15, 07/04/2021, 09/12/2020, Additional history exists HbA1c 05/29/2023 11/27/2022, 10/17, 07/25/2021, Additional history exists DIABETES-EYE EXAM 07/20/2023 07/20/2022, , 07/13/2019, Additional history exists CKD HGB USE SMARTSET 85039 12/18/202312/17, 12/17/2022, 11/27/2022, Additional history exists DXA Scan 12/27/2023 12/26/2021, 05/17, 05/26/2014, Additional history exists DTaP,Tdap,and Td Vaccines (2 - Td or Tdap) 02/01/2025 02/01/2015, 11/20/2007, 09/21/1998 Pneumococcal Vaccine: 65+ Years Completed 08/04/2014, 12/29/2009 Zoster Vaccines Completed 11/14/2018, 10/15, 05/30/2018, Additional history exists VITAMIN D LEVEL ONCE IN A LIFETIME-USE SMARTSET# 30113 Completed 07/04/2021, 09/12/2020, 01/11/2020, Additional history exists GARDASIL-HPV IMMUNIZATION SERIES Aged [...] and were consensually agreed upon. Care Teams Ancillary Services Manager Therapy Relationship Specialty Start Date End Date Steve Hooker III, MD [address] [place] [address] PCP - General 01/30/1996 documented as of this encounter
--- OUTSIDE RECORDS SUMMARY | 2023-06-27 02:56 | External Medical Summary ---
Author Name Unknown Address Unknown Organization K01:[facility] [address] [place] [address] Laboratory Report Ordering Provider Test Date Status LOURDES DE GUZMAN 03/25/2023 10:57:00 Final Standing order for pt/inr. < br/>Please draw pt/inr every 1 to 4 weeks as requested
Results to [facility]

Warfarin Therapy
INR: 2.0-3.0 conventional anticoagulation
INR: 2.5-3.5 high intensity anticoagulation Observation Date Value Abnormality Reference (Units ) Status PT 03/25/2023 10:57:00 27.6 Above high normal 11 .6-15.2 (seconds) Final INR 03/25/2023 10:57:00 2.5 Above high normal 0. 8-1.2 Final Performing Location [facility] [address] [place] [address]
--- OUTSIDE RECORDS SUMMARY | 2023-06-27 02:56 | External Medical Summary | Summary of Care ---
Author Name Unknown Organization [facility] Address [address] [place] [address] Phone [phone] Care Team Providers Care Cherry Cutter Name Role Phone Nhung LOPEZ MD, Steve Langston Primary Care Provider [phone] Encounter Details Date Type Department Care Team Description 03/18/2023 Result Scan Unspecified Department Adam Magallanes MD [address] [facility] [place] [address] <No scans attached> Allergies Active Allergy Reactions Severity Noted Date Comments Adhesive Tape 07/05/2022 Doxycycline Nausea/vomiting 11/03/2010 Metoclopramide Hcl Neuro complications (Please comment) 12/07/2010 Developed worsening tremor and lip smacking. Naproxen 01/23/2012 Can not tolerate-gets very emotional and depressed documented as of this encounter (statuses as of 03/18/2023) Medications Medication Sig Dispensed Refills Start Date [...] HIP 350 g 3 1 Active Biotin 28226 MCG Oral Tablet Take 1 Tablet by [...] Active Amiodarone HCl 200 MG Oral Tablet (Cordarone)Indicati ons:Paroxysmal atrial fibrillation (HCC) TAKE ONE -HALF TABLET [...] BY MOUTH AT BEDTIME 45 Tablet 2 08/02/202 3 Active levETIRAcetam 500 MG Oral Tablet (Keppra) Take 1 Tablet by mouth in the morning and 1 Tablet before bedtime. 180 Tablet 1 3 Active oxyCODONE-Acetamino phen 10-325 MG Oral TabletIndications:P ain Take 1 Tablet by mouth every 6 hours as needed for Pain, Severe. 120 Tablet 0 3 Active Torsemide 20 MG Oral Tablet (Demadex) Take 1 Tablet by mouth in the morning and 1 Tablet in the evening. 90 Tablet 1 3 Active documented as of this encounter (statuses as of 03/18/2023) Active Problems Problem Noted Date Advanced care planning/counseling gerry nato 12/27/2022 Last Assessment & Plan: -patient does [...] 12/22/13 Steve Hooker III, MD [facility] [place] Facet arthropathy, lumbar 10/07/2013 Type 2 diabetes mellitus with hemoglobin A1c goal of less than 8.0% 07/15/2013 Overview: ICD-10 update of inactive term History of tobacco use 02/18/2013 Hearing loss 02/18/2013 ADVANCE DIRECTIVE INFORMATION 08/09/2010 Overview: No, Advance Directive brochure given to patient at prior appointment. DYSLIPIDEMIA, GOAL LDL BELOW 70 05/30/20 09 Overview: Per Lipid Taxonomy. S/P angioplasty with stent 09/05/2002 ATHEROSCLEROTIC CORONARY DISEASE documented as of this encounter (statuses as of 03/18/2023) Resolved Problems Problem Noted Date Resolved Date [...] as of this encounter (statuses as of 03/18/2023) Immunizations Name Administration Dates Next Due COVID-19 mRNA, LNP-s, No Pre serve, 2-Dose Series ([employer]) 06/01/2021,10/15/2020,09/24/2020 Covid-19, Mrna, Lnp-s, Pf, B ivalent, [...] Care Team Description 03/25/2023 Laboratory Laboratory Processing [facility] [place], [facility] Mobile Home Draw [address] [place] [address] 03/26/2023 [facility] [address] [place] [address] 04/03/2023 Office Visit Cardiology Neri Carrizales PA-C [address] [place] [address] 04/17/2023 Home Visit [facility] [address] RN [address] [place] [address] 09/23/2023 Office Visit Cardiology Adam Magallanes MD [address] [place] [address] Health Maintenance Due Date Last Done Comments [...] Additional history exists CKD PHOS USE SMARTSET 90071 03/02/202302/15, 07/04/2021, 09/12/2020, Additional history exists HbA1c 05/29/2023 11/27/2022, 10/17, 07/25/2021, Additional history exists DIABETES-EYE EXAM 07/20/2023 07/20/2022, , 07/13/2019, Additional history exists CKD HGB USE SMARTSET 73336 12/18/202312/17, 12/17/2022, 11/27/2022, Additional history exists DXA Scan 12/27/2023 12/26/2021, 05/17, 05/26/2014, Additional history exists DTaP,Tdap,and Td Vaccines (2 - Td or Tdap) 02/01/2025 02/01/2015, 11/20/2007, 09/21/1998 Pneumococcal Vaccine: 65+ Years Completed 08/04/2014, 12/29/2009 Zoster Vaccines Completed 11/14/2018, 10/15, 05/30/2018, Additional history exists VITAMIN D LEVEL ONCE IN A LIFETIME-USE SMARTSET# 63253 Completed 07/04/2021, 09/12/2020, 01/11/2020, Additional history exists [...] Date/Time Associated Diagnosis Comments CARDIOLOGY SCANNED RESULT 03/18/2023 documented in this encounter Results * CARDIOLOGY SCANNED RESULT (03/18/2023) 03/18/2023 Adam Magallanes MD OTHER documented in this [...] and were consensually agreed upon. Care Teams Cherry Cutter Relationship Specialty Start Date End Date Steve Hooker III, MD [address] [place] [address], [place] [address] PCP - General 01/30/1996 documented as of this encounter
--- OUTSIDE RECORDS SUMMARY | 2023-06-27 02:56 | External Medical Summary | Summary of Care ---
Author Name Unknown Organization [facility] Address [address] [place] [address] Phone [phone] Care Team Providers Care Chemistry Research Assistant Name Role Phone Nhung LOPEZ MD, Steve Langston Primary Care Provider [phone] Reason for Visit * Reason Comments Dosage Adjustment Via Phone (anticoag Cl inic) Encounter Details Date Type Department Care Team Description 03/13/2023 Anticoagulation Pharmacy Call Center [address] [place] [address] [facility] [address] [place] [address] Atrial fibrillation with RVR ([facility])* Allergies Active Allergy Reactions Severity Noted Date [...] goal of less than 8.0% ([facility]) Use to test once daily DX E11.9 100 Each 3 1 Active Diclofenac Sodium 1 % External Gel Apply topically to affected area once for 1 dose. Apply to PL[address] 4 GRAM TOPICALLY ON THE SKIN 4 TIMES A DAY TO RIGHT HIP 350 g 3 1 Active Biotin 71870 MCG Oral Tablet Take 1 Tablet by [...] 24 Active Additional Information Patient taking differently: TAKE TWO TABLET BY MOUTH DAILY WITH FUROSEMIDE., Reported on 12/03/2022 Isosorbide Mononitrate ER 30 MG Oral Tablet [...] 24 Active Additional Information Patient taking differently: 3.125 mg, Reported on 12/27/2022 Vitamin D 50 MCG (1999 UT) Oral [...] 12/22/13 Steve Hooker III, MD [facility] [place] Facet arthropathy, lumbar 10/07/2013 Type 2 diabetes [...] mRNA, LNP-s, No Pre serve, 2-Dose Series ([employer] DTS) 06/01/2021,10/15/2020,09/24/2020 Covid-19, Mrna, Lnp-s, Pf, B ivalent, [...] of this encounter Progress Notes * Lea Espana RPh - 03/13/2023 9:10 AM EDT Noted, will continue to monitor and adjust accordingly. Lea Espana Rph, Pharm.D. Clinical Pharmacist [facility] ([facility]) (formerly Telepharmacy) [phone] 03/13/2023,9:10 AM g * SARAI Ramirez Tech - 03/13/2023 8:27 AM EDT Contacts Type Contact Phone/Fax 03/13/2023 08:09 AM EDT Phone (Outgoing) RUFINO BARRIENTOS (Emergency Contact) [phone] Subjective Patient Findings Positives: Change in health (Pt has gradually been losing weight going from 187 in May to 170 currently and seems to contiunue to gradually lose over time (pt is still eating and has an appetite, just gradually losing weight per Rufino)), Change in medications (Changed from Furosemide to torsemide about a month or 2 ago) Negatives: Signs/symptoms of thrombosis, Signs/symptoms of bleeding, Change in alcohol use, Change in activity, Upcoming invasive procedure, Missed doses, Extra doses, Change in diet/appetite, Bruising Advised patient to contact Anticoagulation Clinic if any unusual bruising or bleeding, recent illness, changes in medication, or questions/concerns. PT/INR results, Coumadin dose instructions, and next PT/INR date communicated as noted by Pharmacist: Yes SARAI RAMIREZ 03/13/2023, 8:27 AM * Lea Espana RPh - 03/13/2023 7:54 AM EDT Images from the original note were not included. Coumadin Clinic (region specific) Objective Current Warfarin Dose As of 03/13/2023 Warfarin maintenance plan: 6 mg (4 mg x 1.5) every Mon, Wed, Fri; 4 mg (4 mg x 1) all other days INR Result As of 03/13/2023 INR goal: 2.0-3.0 INR used for dosin.3 (03/12/2023) Assessment & Plan Warfarin Plan As of 03/13/2023 Full warfarin instructions: 03/13: Hold; Otherwise 6 mg every Mon, Fri; 4 mg all other days Next INR check: 03/25/2023 Repeat PT/INR in 1.5 week(s) Weekly dose: decreased Additional Dosing Information: Description GML - Call Rufino with results/dosing Amiodarone decreased 01/2021 Tech to contact patient with dose instructions as noted. Lea Espana RPh 03/13/2023, 7:54 AM documented in this encounter Plan of Treatment Upcoming Encounters Date Type Specialty Care Team Description 03/13/2023 Home Visit [facility] [address], [facility] [address] [place] [address] 03/25/2023 Laboratory Laboratory Processing [facility], [facility] Mobile Home Draw [address] [place] [address] 03/26/2023 [facility] [address] [place] [address] 04/03/2023 Office Visit Cardiology Neri Carrizales PA-C [address] [place] [address] 09/23/2023 Office Visit Cardiology Adam Magallanes MD [address] [place] [address] Health Maintenance Due Date Last Done Comments [...] Additional history exists CKD PHOS USE SMARTSET 93806 03/02/2023 09/11/2021, 07/04/2021, 09/12/2020, Additional history exists HbA1c 05/29/2023 11/27/2022, 10/17, 07/25/2021, Additional history exists DIABETES-EYE EXAM 07/20/2023 07/20/2022, , 07/13/2019, Additional history exists CKD HGB USE SMARTSET 13966 12/18/202312/17, 12/17/2022, 11/27/2022, Additional history exists DXA Scan 12/27/2023 12/26/2021, 05/17, 05/26/2014, Additional history exists DTaP,Tdap,and Td Vaccines (2 - Td or Tdap) 02/01/2025 02/01/2015, 11/20/2007, 09/21/1998 Pneumococcal Vaccine: 65+ Years Completed 08/04/2014, 12/29/2009 Zoster Vaccines Completed 11/14/2018, 10/15, 05/30/2018, Additional history exists VITAMIN D LEVEL ONCE IN A LIFETIME-USE SMARTSET# [id number] Completed 07/04/2021, 09/12/2020, 01/11/2020, Additional history exists [...] and were consensually agreed upon. Care Teams Chemistry Research Assistant Relationship Specialty Start Date End Date Steve Hooker III, MD [address] [place] [address] [place] [address] PCP - General 01/30/1996 documented as of this encounter
--- OUTSIDE RECORDS SUMMARY | 2023-06-27 02:56 | External Medical Summary | Summary of Care ---
Author Name Unknown Organization [facility] Address [address] [place] [facility] [place] [address] Phone [phone] Care Team Providers Care Client Services Director Name Role Phone Nhung LOPEZ MD, Steve Langston Primary Care Provider [phone] Reason for Visit * Reason Comments [facility]: Maintenance Encounter Details Date Type Department Care Team Description 03/13/2023 Home Visit [facility], [facility] [place] [address], [facility] [address] [facility], [place] [address] Allergies Active Allergy Reactions Severity Noted Date Comments Adhesive Tape 07/05/2022 Doxycycline Nausea/vomiting 11/03/2010 Metoclopramide Hcl Neuro complications (Please comment) 12/07/2010 Developed worsening tremor and lip smacking. Naproxen 01/23/2012 Can not tolerate-gets very emotional and depressed documented as of this encounter (statuses as of 03/15/2023) Medications Medication Sig Dispensed Refills Start Date [...] HIP 350 g 3 1 Active Biotin 80100 MCG Oral Tablet Take 1 Tablet by [...] as of this encounter (statuses as of 03/15/2023) Active Problems Problem Noted Date Advanced care [...] 12/22/13 Steve Hooker III, MD [facility] Facet arthropathy, lumbar 10/07/2013 Type 2 diabetes [...] as of this encounter (statuses as of 03/15/2023) Resolved Problems Problem Noted Date Resolved Date [...] as of this encounter (statuses as of 03/15/2023) Immunizations Name Administration Dates Next Due COVID-19 mRNA, LNP-s, No Pre serve, 2-Dose Series ([employer]) 06/01/2021,10/15/2020,09/24/2020 Covid-19, Mrna, Lnp-s, Pf, B ivalent, [...] Sign Reading Time Taken Comments Blood Pressure 120/64 03/13/2023 10:57 AM EDT Pulse 60 03/13/2023 10:57 AM EDT Temperature 36.6 C (97.8 F) 03/13/2023 10:57 AM E DT Respiratory Rate 18 03/13/2023 10:57 AM EDT Oxygen Saturation 94% 03/13/2023 10:57 AM EDT Inhaled Oxygen Concentration - - Weight - - Height - - Body Mass Index - - documented in this encounter Progress Notes * Fernanda Lane RN - 03/13/2023 10:23 AM EDT Images from the original note were not included. [facility] [employer] Rig [employer] Helper Visit Date: 03/13/2023 Time: 10:23 AM Name: Rhea Quijano Joe : 1935 Current Concerns: Patient seen for follow up- CHF, Afib, Pacemaker, DM2 [facility] seeing patient weekly per daughter. Coban wraps to BLE- edema much improved. Taking Torsemide BID- confirmed by daughter over the phone along with potassium daily. Receives medications through [employer] mail order- not a local pharmacy. Discrepancy- see t/e encounter 02/27- questioning if patient taking diuretic. Daughter unable to be present d/t issues with back- having surgery 03/22. Daughter fills pillbox weekly. VS wnl Lungs clear bilaterally Sob with exertion Wraps intact to BLE Weights fluctuate but reports being asymptomatic Voiding without difficulty Bowels wnl- per report Appetite good Taking fluids well Problems/Symptoms: Review of Systems Constitutional: Negative. HENT: Negative. Eyes: Negative. Respiratory: Positive for shortness of breath. Cardiovascular: Positive for leg swelling. Gastrointestinal: Negative. Endocrine: Negative. Genitourinary: Negative. Musculoskeletal: Negative. Allergic/Immunologic: Negative. Neurological: Negative. Hematological: Negative. Psychiatric/Behavioral: Negative. Physical Exam: BP 120/64 (BP Site: Left Arm, BP Position: Sitting, BP Cuff Size: Regular) | Pulse 60 | Temp 36.6 C (97.8 F) (Tympanic) | Resp 18 | SpO2 94% Pain 6- left leg from hip to ankle- chronic per patient Physical Exam Constitutional: Appearance: Normal appearance. Cardiovascular: Rate and Rhythm: Normal rate. Pulses: Normal pulses. Heart sounds: Normal heart sounds. Pulmonary: Effort: Pulmonary effort is normal. Breath sounds: Normal breath sounds. Abdominal: General: Bowel sounds are normal. Palpations: Abdomen is soft. Musculoskeletal: General: Normal range of motion. Right lower leg: Edema present. Left lower leg: Edema present. Skin: General: Skin is warm and dry. Neurological: General: No focal deficit present. Mental Status: She is alert and oriented to person, place, and time. Psychiatric: Mood and Affect: Mood normal. Behavior: Behavior normal. [facility] [place] Completed this Visit: No. Routine visit Treatment/Plan: Low na diet Elevate ble- edema [facility]- wraps Continue medications as prescribed Keep all upcoming MD appointments Fall precautions- walker Home Interventions Provided: Reinforced current Plan of Care, including self-management and medication regimen Patient's Goals of Care: To be able to move around Pain control Walk by myself Patient's 'Red Flags': Increased swelling in LE Redness/warmth/discomfort in BLE Sob above baseline Patient Needs to Remember: Call [facility] with any medical concerns/ red flags Referrals Needed: N/a Follow Up: Is there cellular connectivity/connectivity in the home? Yes Does the patient have internet in the home? No Patient encouraged to call the intake phone number for all urgent but not emergent issues. Scheduled to follow up with patient in 6 weeks. Fernanda Davis RN 03/13/2023 10:23 AM documented in this encounter Plan of Treatment Upcoming Encounters Date Type Specialty Care Team Description 03/25/2023 Laboratory Laboratory Processing [facility] [facility] Draw [address] [place] [address] 03/26/2023 [facility] [address] [place] [address] 04/03/2023 Office Visit Cardiology Neri Carrizales PA-C [address] [place] [address] 04/17/2023 Home Visit [facility] Fernanda Lane RN [address] [place] [address] 09/23/2023 Office Visit Cardiology Adam Magallanes MD [address] [place] [address] Health Maintenance Due Date Last Done Comments [...] Additional history exists CKD PHOS USE SMARTSET 25159 03/02/202302/15, 07/04/2021, 09/12/2020, Additional history exists HbA1c 05/29/2023 11/27/2022, 10/17, 07/25/2021, Additional history exists DIABETES-EYE EXAM 07/20/2023 07/20/2022, , 07/13/2019, Additional history exists CKD HGB USE SMARTSET 50561 12/18/202312/17, 12/17/2022, 11/27/2022, Additional history exists DXA Scan 12/27/2023 12/26/2021, 05/17, 05/26/2014, Additional history exists DTaP,Tdap,and Td Vaccines (2 - Td or Tdap) 02/01/2025 02/01/2015, 11/20/2007, 09/21/1998 Pneumococcal Vaccine: 65+ Years Completed 08/04/2014, 12/29/2009 Zoster Vaccines Completed 11/14/2018, 10/15, 05/30/2018, Additional history exists VITAMIN D LEVEL ONCE IN A LIFETIME-USE SMARTSET# 61182 Completed 07/04/2021, 09/12/2020, 01/11/2020, Additional history exists [...] and were consensually agreed upon. Care Teams Client Services Director Relationship Specialty Start Date End Date Steve Hooker III, MD [address] [place] [address], [place] [address] PCP - General 01/30/1996 documented as of this encounter
--- OUTSIDE RECORDS SUMMARY | 2023-06-27 02:56 | External Medical Summary | Summary of Care ---
Author Name Unknown Organization [facility] Address [address] [place] [address] Phone [phone] Care Team Providers Care Quality Assurance Director Name Role Phone Nhung LOPEZ MD, Christiano Langston Primary Care Provider [phone] Reason for Visit * Reason Onset Date Comments Medication Refill 03/18/2023 Encounter Details Date Type Department Care Team Description 03/18/2023 Refill [facility] [place] [address] [place] [address] Christiano Harkins III, MD [address] [place] [address] Pain Allergies Active Allergy Reactions Severity Noted Date Comments Adhesive Tape 07/05/2022 Doxycycline Nausea/vomiting 11/03/2010 Metoclopramide Hcl Neuro complications (Please comment) 12/07/2010 Developed worsening tremor and lip smacking. Naproxen 01/23/2012 Can not tolerate-gets very emotional and depressed documented as of this encounter (statuses as of 03/19/2023) Medications Medication Sig Dispensed Refills Start Date [...] hemoglobin A1c goal of less than 8.0% ([facility]) Use to test once daily DX E11.9 100 Each 3 1 Active Diclofenac Sodium 1 % External Gel Apply topically to affected area once for [address] Apply to PLACE 4 GRAM TOPICALLY ON THE SKIN 4 TIMES A DAY TO RIGHT HIP 350 g 3 1 Active Biotin 41117 MCG Oral Tablet Take 1 Tablet by [...] for Pain, Severe. 120 Tablet 0 3 03/18/20 23 Discontinu ed(Refill) documented as of this encounter (statuses as of 03/19/2023) Active Problems Problem Noted Date Advanced care [...] Overview: Signed 12/22/13 Christiano Harkins III, MD [facility] [place] Facet arthropathy, lumbar 10/07/2013 Type 2 diabetes [...] as of this encounter (statuses as of 03/19/2023) Resolved Problems Problem Noted Date Resolved Date [...] 5 yrs HTN, GOAL BELOW 130/80 07/13/2009 08/23/201 2 Overview: Per HTN Taxonomy. Type 2 [...] as of this encounter (statuses as of 03/19/2023) Immunizations Name Administration Dates Next Due COVID-19 mRNA, LNP-s, No Pre serve, 2-Dose Series ([employer]) 06/01/2021,10/15/2020,09/24/2020 Covid-19, Mrna, Lnp-s, Pf, B ivalent, [...] Encounter - Christiano Harkins III, MD - 03/19/2023 12:53 PM EDTSigned Prescriptions: Disp Refills oxyCODONE-Acetaminophen 10-325 MG Oral Tab*120 Ta*0 Sig: Take 1 Tablet by mouth every 6 hours as needed for Pain, Severe.Authorizing Provider: CHRISTIANO HARKINS III----- * Telephone Encounter - Sarthak Lopez [facility] - 03/19/2023 12:47 PM EDT Pending Prescriptions: Disp Refills oxyCODONE-Acetaminophen 10-325 MG Oral Tab*120 Ta*0 Sig: Take 1 Tablet by mouth every 6 hours as needed for Pain, Severe. * Telephone Encounter - Sarthak Lopez [facility] - 03/19/2023 12:47 PM EDT I have reviewed the patients controlled substance dispensing history in the Prescription Drug Monitoring Program in compliance with the [facility] regulations before prescribing a controlled substance. PDMP checked on 03/19/2023. Pending Prescriptions: Disp Refills oxyCODONE-Acetaminophen 10-325 MG Oral Ta*120 Ta*0 Sig: Take 1 Tablet by mouth every 6 hours as needed for Pain, Severe. Last Visit: 08/21/2022 (in office), 11/21/2022 (telemedicine) Next Visit: Visit date not found Date medication was last filled: 02/19 Date medication is due for refill: 03/19 Pharmacy: [facility] Is this request for a [...] Results Review. Please approve if appropriate. Thanks, Sarthak Lopez, PharmD Clinical Pharmacist [facility](formerly telepharmacy) [phone] 03/19/2023, 12:47 PM * Telephone Encounter - Beth Denson CPhT - 03/18/2023 12:49 PM EDT Did you pend patient's preferred pharmacy and medication before forwarding?yes [facility] Pending Prescriptions: Disp Refills oxyCODONE-Acetaminophen 10-325 [...] appointment Last date the medication was ordered: 02/18/2023 Is this request for a controlled substance?Yes, What was the last refill date 02/18/2023 w/ quantity 120 and dosage 10-325 and Urine Drug Screen was completed Urine [...] Care Team Description 03/25/2023 Laboratory Laboratory Processing [facility] [place] Home Draw [address] [facility] [place] [address] 03/26/2023 [facility] [address] [facility] [place] [address] 04/03/2023 Office Visit Cardiology Neri Carrizales PA-C [address] [place] [address] 04/17/2023 Home Visit [facility] Fernanda Lane RN [address] [place] [address] 09/23/2023 Office Visit Cardiology Adam Magallanes MD [address] [place] [address] Health Maintenance Due Date Last Done Comments Depression Screening 09/16/2019 09/15/2018 Diabetic Foot Exam 09/12/2021 09/12/2020, 0 12/09/2019, 01/07/2019, Additional history exists *BISPHONATE OR OTHER ACCEPTABLE MEDICATION NEEDED FOR OSTEOPOROSIS (REFER TO SMARTSET #1146) 02/17/2022 Albumin/Creatinine Ratio 07/27/20222 022, 01/15/2020, 04/07/2019, Additional history exists COVID-19 Vaccine ( season) 2023 07/12/2022, 06/01/2021, 10/15/2020, Additional history exists Influenza Vaccine (FLU shot) (#1) 2023 07/10/2022, 03/27/2021, 06/08/2020, Additional history exists CKD PHOS USE SMARTSET 72792 03/02/202302/15, 07/04/2021, 09/12/2020, Additional history exists HbA1c 05/29/2023 11/27/2022, 10/17, 07/25/2021, Additional history exists DIABETES-EYE EXAM 07/20/2023 07/20/2022, , 07/13/2019, Additional history exists CKD HGB USE SMARTSET 75536 12/18/202312/17, 12/17/2022, 11/27/2022, Additional history exists DXA Scan 12/27/2023 12/26/2021, 05/17, 05/26/2014, Additional history exists DTaP,Tdap,and Td Vaccines (2 - Td or Tdap) 02/01/2025 02/01/2015, 11/20/2007, 09/21/1998 Pneumococcal Vaccine: 65+ Years Completed 08/04/2014, 12/29/2009 Zoster Vaccines Completed 11/14/2018, 10/15, 05/30/2018, Additional history exists VITAMIN D LEVEL ONCE IN A LIFETIME-USE SMARTSET# [id number] Completed 07/04/2021, 09/12/2020, 01/11/2020, Additional history exists [...] were consensually agreed upon. Care Teams Quality Assurance Director Relationship Specialty Start Date End Date Christiano Harkins III, MD [address] [place] [address] PCP - General 01/30/1996 documented as of this encounter
--- OUTSIDE RECORDS SUMMARY | 2023-06-27 02:56 | External Medical Summary | Summary of Care ---
Author Name Unknown Organization [facility] Address [address] [place] [address] Phone [phone] Care Team Providers Care Stone Decorator Name Role Phone Nhung LOPEZ MD, Steve Langston Primary Care Provider [phone] Reason for Visit * Reason Comments Dosage Adjustment Via Phone (anticoag Cl inic) Encounter Details Date Type Department Care Team Description 03/26/2023 Anticoagulation Pharmacy Call Center [address] [place] [address] [facility] [address] [place] [address] Atrial fibrillation with RVR ([facility])* Allergies Active Allergy Reactions Severity Noted Date Comments Adhesive Tape 07/05/2022 Doxycycline Nausea/vomiting 11/03/2010 Metoclopramide Hcl Neuro complications (Please comment) 12/07/2010 Developed worsening tremor and lip smacking. Naproxen 01/23/2012 Can not tolerate-gets very emotional and depressed documented as of this encounter (statuses as of 03/26/2023) Medications Medication Sig Dispensed Refills Start Date [...] HIP 350 g 3 1 Active Biotin 70993 MCG Oral Tablet Take 1 Tablet by [...] Severe Pain 120 Tablet 0 3 Active documented as of this encounter (statuses as of 03/26/2023) Active Problems Problem Noted Date Advanced care [...] 12/22/13 Steve Hooker III, MD [facility] [place] Facet arthropathy, lumbar 10/07/2013 Type 2 diabetes [...] as of this encounter (statuses as of 03/26/2023) Resolved Problems Problem Noted Date Resolved Date [...] as of this encounter (statuses as of 03/26/2023) Immunizations Name Administration Dates Next Due COVID-19 mRNA, LNP-s, No Pre serve, 2-Dose Series ([employer]) 06/01/2021,10/15/2020,09/24/2020 Covid-19, Mrna, Lnp-s, Pf, B ivalent, [...] Progress Notes * Lea Campos CPhT - 03/26/2023 8:21 AM EDT Contacts Type Contact Phone/Fax 03/26/2023 08:19 AM EDT Phone (Outgoing) RUFINO BARRIENTOS (Emergency Contact) [phone] Left Message Subjective Advised patient to contact Anticoagulation Clinic if any unusual bruising or bleeding, recent illness, changes in medication, or questions/concerns. PT/INR results, Coumadin dose instructions, and next PT/INR date communicated as noted by Pharmacist: Yes Lea Campos CPhT 03/26/2023, 8:21 AM * Lea Espana RP - 03/26/2023 8:10 AM EDT Coumadin Clinic (region specific) Objective Current Warfarin Dose As of 03/26/2023 Warfarin maintenance plan: 6 mg (4 mg x 1.5) every Mon, Fri; 4 mg (4 mg x 1) all other days INR Result As of 03/26/2023 INR goal: 2.0-3.0 INR used for dosin.5 (03/25/2023) Assessment & Plan Warfarin Plan As of 03/26/2023 Full warfarin instructions: 6 mg every Mon, Fri; 4 mg all other days No change documented: Lea Espana RPh Next INR check: 04/08/2023 Repeat PT/INR in 2 week(s) Weekly dose: not changed Additional Dosing Information: Description GML - Call Rufino with results/dosing Amiodarone decreased 01/2021 Tech to contact patient with dose instructions as noted. Lea Espana RPh 03/26/2023, 8:10 AM documented in this encounter Plan of Treatment Upcoming Encounters Date Type Specialty Care Team Description 04/03/2023 Office Visit Cardiology Neri Carrizales PA-C [address] [place] [address] 04/17/2023 Home Visit [facility] [address]anda [address] RN [address] [place] [address] 09/23/2023 Office Visit Cardiology Adam Magallanes MD [address] [place] [address] Health Maintenance Due Date Last Done Comments [...] Additional history exists CKD PHOS USE SMARTSET 90658 03/02/202302/15, 07/04/2021, 09/12/2020, Additional history exists HbA1c 05/29/2023 11/27/2022, 10/17, 07/25/2021, Additional history exists DIABETES-EYE EXAM 07/20/2023 07/20/2022, , 07/13/2019, Additional history exists CKD HGB USE SMARTSET 14635 12/18/202312/17, 12/17/2022, 11/27/2022, Additional history exists DXA Scan 12/27/2023 12/26/2021, 05/17, 05/26/2014, Additional history exists DTaP,Tdap,and Td Vaccines (2 - Td or Tdap) 02/01/2025 02/01/2015, 11/20/2007, 09/21/1998 Pneumococcal Vaccine: 65+ Years Completed 08/04/2014, 12/29/2009 Zoster Vaccines Completed 11/14/2018, 10/15, 05/30/2018, Additional history exists VITAMIN D LEVEL ONCE IN A LIFETIME-USE SMARTSET# [id number] Completed 07/04/2021, 09/12/2020, 01/11/2020, Additional history exists [...] and were consensually agreed upon. Care Teams Stone Decorator Relationship Specialty Start Date End Date Steve Hooker III, MD [address] [place] [address] PCP - General 01/30/1996 documented as of this encounter
--- OUTSIDE RECORDS SUMMARY | 2023-06-27 02:56 | External Medical Summary ---
Author Name Unknown Address Unknown Organization [id number]:[facility] [place] [address] [place] [address] Laboratory Report Ordering Provider Test Date Status LOURDES DE GUZMAN 03/12/2023 11:00:00 Final Standing order for pt/inr. < br/>Please draw pt/inr every 1 to 4 weeks as requested
Results to [facility]

Warfarin Therapy
INR: 2.0-3.0 conventional anticoagulation
INR: 2.5-3.5 high intensity anticoagulation Observation Date Value Abnormality Reference (Units ) Status PT 03/12/2023 11:00:00 33.6 Above high normal 11 .6-15.2 (seconds) Final INR 03/12/2023 11:00:00 3.3 Above high normal 0. 8-1.2 Final Performing Location [facility] [place] [facility] [address] [place] [address]
--- OUTSIDE RECORDS SUMMARY | 2023-06-27 02:57 | External Medical Summary | Summary of Care ---
Author Name Unknown Organization [facility] Address [address] [place] [address] Phone [phone] Care Team Providers Care Rollway Man Name Role Phone Nhung LOPEZ MD, Steve Langston Primary Care Provider [phone] Reason for Visit * Reason Comments Dosage Adjustment Via Phone (anticoag Cl inic) Encounter Details Date Type Department Care Team Description 02/13/2023 Anticoagulation Pharmacy Call Center [address] [place] [address] [facility] [address] [place] [address] Atrial fibrillation with RVR ([facility])* Allergies Active Allergy Reactions Severity Noted Date Comments Adhesive Tape 07/05/2022 Doxycycline Nausea/vomiting 11/03/2010 Metoclopramide Hcl Neuro complications (Please comment) 12/07/2010 Developed worsening tremor and lip smacking. Naproxen 01/23/2012 Can not tolerate-gets very emotional and depressed documented as of this encounter (statuses as of 02/13/2023) Medications Medication Sig Dispensed Refills Start Date End Date Status ASPIRIN 81 MG PO TABS 1 TABLET BY MOUTH MWF 0 0 6 Active PROBIOTIC PO CAPS daily 0 Active DOCQLACE 100 MG PO CAPSIndications:Abd ominal pain, right upper quadrant TAKE TWO CAPSULES BY MOUTH DAILY 120 Cap 3 3 Active Additional Information Patient taking differently: 200 mgOralBID(AM/PM), Reported on 09/13/2022 Polyethylene Glycol 3350 17 [...] HIP 350 g 3 1 Active Biotin 16259 MCG Oral Tablet Take 1 Tablet by [...] mouth in the morning. 0 3 Active Torsemide 20 MG Oral Tablet (Demadex) Take 1 Tablet by mouth in the morning and 1 Tablet in the evening. 90 Tablet 1 3 Active Omeprazole 20 MG Oral Capsule [...] Reported on 12/27/2022 Vitamin D 50 MCG (2000 UT) Oral Tablet Take 2,000 Units by mouth in the morning. 0 Active oxyCODONE-Acetamino phen 10-325 MG Oral TabletIndications:P ain Take 1 Tablet by mouth every 6 hours as needed for severe Pain 120 Tablet 0 3 Active oxyCODONE-Acetamino phen 5-325 MG Oral Tablet [...] before bedtime. 180 Tablet 1 3 Active documented as of this encounter (statuses as of 02/13/2023) Active Problems Problem Noted Date Advanced care planning/counseling lj gardneron 12/27/2022 Last Assessment & Plan: -patient does not have living will in writing -would like to make decisions based on the circumstances of the situation -encouraged patient and family to fill out documentation left by RN CM Unspecified dementia, unspec ified severity, without behavioral disturbance, psychotic disturbance, mood disturbance, and anxiety 07/20/2022 Age-related osteoporosis without current pathological fracture 02/14/2022 Hemiplegia, 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, recurrent epi sode, mild 07/19/2021 Paroxysmal atrial fibrillation 2 Polymyalgia rheumatica 07/19/2021 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 07/19/2021 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 07/19/2021 Chronic diastolic heart failure 05/31/20 20 Cardiac pacemaker in situ 03/25/2020 Atrial fibrillation [...] Steve Hooker III, MD [facility] [place] Facet arthropathy, lumbar 10/07/2013 Type 2 diabetes [...] as of this encounter (statuses as of 02/13/2023) Resolved Problems Problem Noted Date Resolved Date [...] as of this encounter (statuses as of 02/13/2023) Immunizations Name Administration Dates Next Due COVID-19 mRNA, LNP-s, No Pre serve, 2-Dose Series ([employer]) 06/01/2021,10/15/2020,09/24/2020 Covid-19, Mrna, Lnp-s, Pf, B ivalent, [...] as of this encounter Progress Notes * SARAI Cristina - 02/13/2023 8:03 AM EDT Contacts Type Contact Phone/Fax 02/13/2023 07:59 AM EDT Phone (Outgoing) RUFINO BARRIENTOS (Emergency Contact) [phone] Left Message Subjective Advised patient to contact Anticoagulation Clinic if any unusual bruising or bleeding, recent illness, changes in medication, or questions/concerns. PT/INR results, Coumadin dose instructions, and next PT/INR date communicated as noted by Pharmacist: Yes SARAI CRISTINA 02/13/2023, 8:03 AM * Lea Espana RPh - 02/13/2023 7:49 AM EDT Coumadin Clinic (region specific) Objective Current Warfarin Dose As of 02/13/2023 Warfarin maintenance plan: 6 mg (4 mg x 1.5) every Mon, Wed, Fri; 4 mg (4 mg x 1) all other days INR Result As of 02/13/2023 INR goal: 2.0-3.0 INR used for dosin.9 (2023) Assessment & Plan Warfarin Plan As of 02/13/2023 Full warfarin instructions: 6 mg every Mon, Wed, Fri; 4 mg all other days No change documented: Lea Espana RPh Next INR check: 02/26/2023 Repeat PT/INR in 2 week(s) Weekly dose: not changed Additional Dosing Information: Description GML - Call Rufino with results/dosing Amiodarone decreased 01/2021 Tech to contact patient with dose instructions as noted. Lea Espana RPh 02/13/2023, 7:49 AM documented in this encounter Plan of Treatment Upcoming Encounters Date Type Specialty Care Team Description 02/26/2023 Laboratory Laboratory Processing [facility], [facility] Mobile Home Draw [address], [place] [id number] 02/26/2023 Telemedicine [facility] Mickie Berry PA-C [address] [place] [address] Sheyla Bauer, Community Health Education Coordinator [address] [place] [address] 02/27/2023 [facility] [address] [place] [address] 03/13/2023 Home Visit [facility] [address], RN [address] [place] [address] 04/03/2023 Office Visit Cardiology Neri Carrizales PA-C [address] [place] [address] 09/23/2023 Office Visit Cardiology Adam Magallanes MD [address] [place] [address] Health Maintenance Due Date Last Done Comments Depression Screening, Annual for Pts 12 and Over 09/16/2019 09/15/2018 DIABETES-FOOT EXAM 09/12/2021 09/12/2020, 0 12/09/2019, 01/07/2019, Additional history exists *BISPHONATE OR OTHER ACCEPTABLE MEDICATION NEEDED FOR OSTEOPOROSIS (REFER TO SMARTSET #1146) 02/17/2022 Albumin/Creatinine Ratio 07/27/2022 022, 01/15/2020, 04/07/2019, Additional history exists COVID-19 Vaccine (4 - Pfizer risk series) 09/06/2022 07/12/2022, 06/01/2021, 10/15/2020, Additional history exists Influenza Vaccine (FLU shot) (#1) 2023 07/10/2022, 03/27/2021, 06/08/2020, Additional history exists CKD PHOS USE SMARTSET 02824 03/02/202302/15, 07/04/2021, 09/12/2020, Additional history exists HbA1c 05/29/2023 11/27/2022, 10/17, 07/25/2021, Additional history exists DIABETES-EYE EXAM 07/20/2023 07/20/2022, , 07/13/2019, Additional history exists CKD HGB USE SMARTSET 28715 12/18/202312/17, 12/17/2022, 11/27/2022, Additional history exists DXA Scan 12/27/2023 12/26/2021, 05/17, 05/26/2014, Additional history exists DTaP,Tdap,and Td Vaccines (2 - Td or Tdap) 02/01/2025 02/01/2015, 11/20/2007, 09/21/1998 Pneumococcal Vaccine: 65+ Years Completed 08/04/2014, 12/29/2009 Zoster Vaccines Completed 11/14/2018, 10/15, 05/30/2018, Additional history exists VITAMIN D LEVEL ONCE IN A LIFETIME-USE SMARTSET# [id number] Completed 07/04/2021, 09/12/2020, 01/11/2020, Additional history exists [...] and were consensually agreed upon. Care Teams Rollway Man Relationship Specialty Start Date End Date Steve Hooker III, MD [address] [place] [address] PCP - General 01/30/1996 documented as of this encounter
--- OUTSIDE RECORDS SUMMARY | 2023-06-27 02:57 | External Medical Summary ---
Author Name Unknown Address Unknown Organization K01:[facility] [place] [address] [place] [address] Laboratory Report Ordering Provider Test Date Status LOURDES DE GUZMAN 02/26/2023 10:45:00 Final Standing order for pt/inr. < br/>Please draw pt/inr every 1 to 4 weeks as requested
Results to [facility]

Warfarin Therapy
INR: 2.0-3.0 conventional anticoagulation
INR: 2.5-3.5 high intensity anticoagulation Observation Date Value Abnormality Reference (Units ) Status PT 02/26/2023 10:45:00 35.0 Above high normal 11 .6-15.2 (seconds) Final INR 02/26/2023 10:45:00 3.5 Above high normal 0. 8-1.2 Final Performing Location [facility] [place] [address] [place] [address]
--- OUTSIDE RECORDS SUMMARY | 2023-06-27 02:57 | External Medical Summary | Summary of Care ---
Author Name Unknown Organization [facility] Address [address] [place] [facility] [place] [place] [address] Phone [phone] Care Team Providers Care Reading Intervention Teacher Name Role Phone Nhung LOPEZ MD, Steve Langston Primary Care Provider [phone] Reason for Visit * Reason Onset Date Comments [facility]: Maintenance 02/27/2023 Encounter Details Date Type Department Care Team Description 02/27/2023 Telephone [facility], [place] [address] [place] [address] [facility], Nurse [facility] [address] [place] [address] [facility]: Maintenance Allergies Active Allergy Reactions Severity Noted Date Comments Adhesive Tape 07/05/2022 Doxycycline Nausea/vomiting 11/03/2010 Metoclopramide Hcl Neuro complications (Please comment) 12/07/2010 Developed worsening tremor and lip smacking. Naproxen 01/23/2012 Can not tolerate-gets very emotional and depressed documented as of this encounter (statuses as of 02/27/2023) Medications Medication Sig Dispensed Refills Start Date [...] HIP 350 g 3 1 Active Biotin 24870 MCG Oral Tablet Take 1 Tablet by [...] before bedtime. 180 Tablet 1 3 Active oxyCODONE-Acetamin ophen 10-325 [...] Tablet 1 3 02/28/20 23 Discontinu ed(Refill) documented as of this encounter (statuses as of 02/27/2023) Active Problems Problem Noted Date Advanced care [...] 12/22/13 Steve Hooker III, MD [facility] [place] Facet arthropathy, lumbar 10/07/2013 Type 2 diabetes [...] as of this encounter (statuses as of 02/27/2023) Resolved Problems Problem Noted Date Resolved Date [...] as of this encounter (statuses as of 02/27/2023) Immunizations Name Administration Dates Next Due COVID-19 mRNA, LNP-s, No Pre serve, 2-Dose Series ([employer] 06/01/2021,10/15/2020,09/24/2020 Covid-19, Mrna, Lnp-s, Pf, B ivalent, 10 Mcg, IM, 5-11 yrs (Pfizer) 07/12/2022 H1N1 2009 Influenza, IM 06/28/2009 PPD 07/06/2022 Pneumococcal Conjugate Vacc, 13 Valent (Prevnar) 08/04/2014 Pneumococcal Conjugate Vacci ne, 7 Valent 03/27/2002 Pneumococcal Polysaccharide PPV23 (Pneumovax) 12/29/2009 Season Influenza, [...] as of this encounter Miscellaneous Notes * Addendum Note - Paul Anderson PA-C - 02/27/2023 1:56 PM EDTAddended by: PAUL ANDERSON on: 02/27/2023 01:56 PM Modules accepted: Orders * Telephone Encounter - Paul Anderson PA-C - 02/27/2023 1:50 PM EDT [facility] [place] [facility] Phone Encounter Thank you for your assistance in the care of this patient today. It appears that the patient may not have picked up her prescription refill in December. If this is correct she has done very well over last month and half. I renewed the prescription however I am not sure that she really going to need. I would jorge the primary [facility] team to evaluate the situation before she actually starts taking the diuretic again. That point I raw for encourage the primary [facility] team to developed a DTP if appropriate. At this time I am not recommending any medicine changes. This note was prepared with the help of fluency and if there is any mis-spelled words , sentences or something which doesn't represent the content of the subject that could be technical error and please refer to the author for clarification. * Telephone Encounter - Bernadette Méndez LPN - 02/27/2023 11:18 AM EDT Images from the original note were not included. AMC (Advanced Monitored Caregiving) Weight Trigger AMC Data: Baseline Weight: none Trigger Weight: 167.4 lbs; weight increased 5 lbs in 1 days. Spoke to patient Denies any increased SOB or edema Last BM 2 days ago is taking laxatives and watching salt sodium intake Patient hasn't taken her torsemide for awhile not sure when last had dose. She never received it Iplaced call to pharmacy to follow up regarding torsemide spoke to [facility] they state they need new script sent to them will forward to [facility]/Care team Symptom review: Increased or worsening SOB from baseline: No Increased or worsening cough from baseline: No Orthopnea: No Increased or worsening edema in BLE/abdominal fullness: No Reviewed current diuretic use: Name of Medication: Torsemide Dose: 20mg Frequency: BID Patient has a DTP (Diuretic Titration Protocol (DTP) ordered: No Diet review: Patient has had any foods high in sodium: No Fluid review: Fluid restriction: Yes, adherent to restriction: Yes Plan/Treatment: Route to RMC (Remote Medical Coordinator) Education Review: Reviewed HF symptom monitoring: -Weigh self daily in am, post-void and record -Do not add salt to food, avoid foods high in sodium -Limit fluids to 2 liters per day -Report the following: ->2 lb weight gain in one day or 5 lbs in a week to PCP -increased edema in feet, abdomen or hands -increased SOB and cough, especially if at night -increased fatigue or vertigo Call back instructions discussed with patient. documented in this encounter Plan of Treatment Upcoming Encounters Date Type Specialty Care Team Description 03/12/2023 Laboratory Laboratory Processing [facility], [facility] Mobile Home Draw [address] [place] [address] 03/13/2023 [facility] [address] [facility] [place] [address] 03/13/2023 Home Visit [facility] [address], RN [address] [place] [address] 04/03/2023 Office Visit Cardiology Neri Carrizales PA-C [address] [place] [address] 09/23/2023 Office Visit Cardiology Adam Magallanes MD [address] [place] [address] Health Maintenance Due Date Last Done Comments [...] Additional history exists CKD PHOS USE SMARTSET 24766 03/02/202302/15, 07/04/2021, 09/12/2020, Additional history exists HbA1c 05/29/2023 11/27/2022, 10/17, 07/25/2021, Additional history exists DIABETES-EYE EXAM 07/20/2023 07/20/2022, , 07/13/2019, Additional history exists CKD HGB USE SMARTSET 52266 12/18/202312/17, 12/17/2022, 11/27/2022, Additional history exists DXA Scan 12/27/2023 12/26/2021, 05/17, 05/26/2014, Additional history exists DTaP,Tdap,and Td Vaccines (2 - Td or Tdap) 02/01/2025 02/01/2015, 11/20/2007, 09/21/1998 Pneumococcal Vaccine: 65+ Years Completed 08/04/2014, 12/29/2009 Zoster Vaccines Completed 11/14/2018, 10/15, 05/30/2018, Additional history exists VITAMIN D LEVEL ONCE IN A LIFETIME-USE SMARTSET# [id number] Completed 07/04/2021, 09/12/2020, 01/11/2020, Additional history exists [...] and were consensually agreed upon. Care Teams Reading Intervention Teacher Relationship Specialty Start Date End Date Steve Hooker III, MD [address] [facility] [place] [address] PCP - General 01/30/1996 documented as of this encounter
--- OUTSIDE RECORDS SUMMARY | 2023-06-27 02:57 | External Medical Summary | Summary of Care ---
Author Name Unknown Organization [facility] Address [address] [place] [address] Phone [phone] Care Team Providers Care Parts Driver Name Role Phone Nhung LOPEZ MD, Steve Langston Primary Care Provider [phone] Reason for Visit * Reason Onset Date Comments [facility]: Maintenance 02/27/2023 Encounter Details Date Type Department Care Team Description 02/27/2023 Telephone [facility], [place] [address] [place] [address] [facility], Nurse [facility] [address] [place] [address] [facility]: Maintenance Allergies Active Allergy [...] A1c goal of less than 8.0% ([facility]) Use to test once daily DX E11.9 100 Each 3 1 Active Diclofenac Sodium 1 % External Gel Apply topically to affected area once for [address] 4 GRAM TOPICALLY ON THE SKIN 4 TIMES A DAY TO RIGHT HIP 350 g 3 1 Active Biotin 85396 MCG Oral Tablet Take 1 Tablet by [...] 12/22/13 Steve Hooker III, MD [facility] [place] Facet arthropathy, lumbar 10/07/2013 Type 2 diabetes [...] mRNA, LNP-s, No Pre serve, 2-Dose Series ([employer]) 06/01/2021,10/15/2020,09/24/2020 Covid-19, Mrna, Lnp-s, Pf, B ivalent, [...] encounter Miscellaneous Notes * Telephone Encounter - Bernadette Méndez, CARGO TRIMMER - 02/27/2023 11:18 AM EDT Images from [...] last had dose. She never received it I placed call to pharmacy to follow up regarding torsemide spoke to [facility] they state theyneed new script sent to them will forward to [facility]/Care team Symptom review: Increased or worsening SOB [...] Care Team Description 03/12/2023 Laboratory Laboratory Processing [facility], [facility] Mobile [facility] Draw [address] [facility] [address] 03/13/2023 [facility] [address] [facility] [place] [address] 03/13/2023 Home Visit [facility] [address], IMRE [address] [place] [address] 04/03/2023 Office Visit Cardiology Neri Carrizales PA-C [address] [place] [address] 09/23/2023 Office Visit Cardiology Adam Magallanes MD [address] [place] [address] Health Maintenance Due Date Last Done Comments [...] Additional history exists CKD PHOS USE SMARTSET 22763 03/02/202302/15, 07/04/2021, 09/12/2020, Additional history exists HbA1c 05/29/2023 11/27/2022, 10/17, 07/25/2021, Additional history exists DIABETES-EYE EXAM 07/20/2023 07/20/2022, , 07/13/2019, Additional history exists CKD HGB USE SMARTSET 66310 12/18/202312/17, 12/17/2022, 11/27/2022, Additional history exists DXA Scan 12/27/2023 12/26/2021, 05/17, 05/26/2014, Additional history exists DTaP,Tdap,and Td Vaccines (2 - Td or Tdap) 02/01/2025 02/01/2015, 11/20/2007, 09/21/1998 Pneumococcal Vaccine: 65+ Years Completed 08/04/2014, 12/29/2009 Zoster Vaccines Completed 11/14/2018, 10/15, 05/30/2018, Additional history exists VITAMIN D LEVEL ONCE IN A LIFETIME-USE SMARTSET# [id number] Completed 07/04/2021, 09/12/2020, 01/11/2020, Additional history exists [...] and were consensually agreed upon. Care Teams Parts Driver Relationship Specialty Start Date End Date Steve Hooker III, MD [address] [place] [address], [place] [address] PCP - General 01/30/1996 documented as of this encounter
--- OUTSIDE RECORDS SUMMARY | 2023-06-27 02:57 | External Medical Summary | Summary of Care ---
Author Name Unknown Organization [facility] Address [address] [place] [address] Phone [phone] Care Team Providers Care Elevator Operator Freight Name Role Phone Nhung LOPEZ MD, Steve Langston Primary Care Provider [phone] Reason for Visit * Reason Comments [facility]: Telehealth [facility]: Maintenance Encounter Details Date Type Department Care Team Description 02/26/2023 Telemedicine [facility], [place] [address] [place] [address] Mickie Berry, PAElverC [address] [place] [address] Sheyla Bauer, Community Health Chemical Treatment Operator [address] [place] [address] Paroxysmal atrial fibrillation (HCC)*; Hypertensive heart and kidney 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 and stage 3b chronic kidney disease (HCC); 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 disturbance, psychotic disturbance, mood disturbance, or anxiety, unspecified dementia severity (HCC); Cardiac pacemaker in situ; Hemiplegia, 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HCC); Major depressive disorder, recurrent episode, mild (HCC); Polymyalgia rheumatica (HCC) Allergies Active Allergy Reactions Severity Noted [...] hemoglobin A1c goal of less than 8.0% ([facility]) Use to test once daily DX E11.9 100 Each 3 1 Active Diclofenac Sodium 1 % External Gel Apply topically to affected area once for [address] PLACE 4 GRAM TOPICALLY ON THE SKIN 4 TIMES A DAY TO RIGHT HIP 350 g 3 1 Active Biotin 90856 MCG Oral Tablet Take 1 Tablet by [...] Additional Comments: Chronic diastolic heart failure 05/31/20 20 Cardiac [...] 12/22/13 Steve Hooker III, MD [facility] Facet arthropathy, lumbar 10/07/2013 Type 2 diabetes [...] mRNA, LNP-s, No Pre serve, 2-Dose Series (Nasseo) 06/01/2021,10/15/2020,09/24/2020 Covid-19, Mrna, Lnp-s, Pf, B ivalent, [...] Sign Reading Time Taken Comments Blood Pressure 144/80 02/26/2023 10:00 AM EDT Pulse 68 02/26/2023 10:00 AM EDT Temperature 36 C (96.8 F) 02/26/2023 10:00 AM EDT Respiratory Rate 18 02/26/2023 10:00 AM EDT Oxygen Saturation 98% 02/26/2023 10:00 AM EDT Inhaled Oxygen Concentration - - Weight - - Height - - Body Mass Index - - documented in this encounter Progress Notes * Mickie Berry PA-C - 02/26/2023 10:15 AM EDT Images from the original note were not included. [facility] Problem Oriented Charting Provider Visit Date: 02/26/2023 Time: 10:15 AM [facility] Sub-Program: Focused Care Management (3-9 months) [facility] Episode Start Date: Noted: 11/20/2022 Assessment and Plan #1 Paroxysmal atrial fibrillation (HCC) Assessment & Plan: Amiodarone, coumadin #2 Hypertensive heart and kidney 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 and stage 3b chronic kidney disease (HCC) Assessment & Plan: "RED FLAG" HF Symptoms: [...] Plan BMP Pro-BNP Chest X-Ray Additional Comments: #3 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 disturbance, psychotic disturbance, mood disturbance, or anxiety, unspecified dementia severity (HCC) Assessment & Plan: Stable, interactive today #4 Cardiac pacemaker in situ #5 Hemiplegia, 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HCC) #6 Major depressive disorder, recurrent episode, mild (HCC) #7 Polymyalgia rheumatica (HCC) Check-out note: Please help in scheduling the recommended follow up as listed below: [facility] AP (see care team) within approx 3 months for Telemedicine Visit Scheduled appointments in the next 60 days: Future Appointments-next 60 days Date/Time Provider Specialty Dept Phone 02/27/2023 6:00 AM [facility] [phone] 03/13/2023 11:[address] RN [facility] [phone] 04/03/2023 2:30 PM (Arrive by 2:15 PM) Nrei Carrizales PA-C Cardiology [phone] 09/23/2023 3:30 PM (Arrive by 3:15 PM) Adam Magallanes MD Cardiology [phone] A total of 25 minutes was spent face to face (via video-based telemedicine if designated as a telemedicine visit) Subjective Subjective Is this a Telemedicine Visit? Yes, Patient location: HOME. I was not in a hospital or clinic location. After connecting through televideo, patient was verified with two unique identifiers. Patient (or authorized legal customer service representative) was then informed that this was a Telemedicine visit and being conducted confidentially over secure lines. Methods to assure confidentiality were taken. Patient acknowledged consent and understanding of privacy and security of the Telemedicine visit. The patient agreed to participate. Reason For [facility] Visit: Follow-Up Current Concerns: Dementia, A. Fib, CHF Rhea Diaz is a 88 year old female seen today for a [facility] provider visit. No recent utilization Today's concerns are: Left leg pain, not new. Additional Review of Systems Constitutional: Positive for fatigue. Negative for activity change and appetite change. HENT: Positive for dental problem (dentures, leaves them in). Negative for rhinorrhea, sinus pressure, sinus pain, sore throat and trouble swallowing. Eyes: Negative for visual disturbance. + glasses Respiratory: Negative for cough, shortness of breath and wheezing. Cardiovascular: Negative for leg swelling. Legs are wrapped with unna boots, changed weekly Gastrointestinal: Negative for blood in stool, constipation, diarrhea, nausea and vomiting. Endocrine: Negative. Genitourinary: Negative. Musculoskeletal: Positive for back pain and gait problem (uses a walker). Left leg pain Skin: Negative. Allergic/Immunologic: Negative. Neurological: Positive for dizziness and weakness. Negative for light-headedness and headaches. Hematological: Negative. Psychiatric/Behavioral: Negative. Objective Objective Vitals: 02/26/23 1000 Temp: 36 C (96.8 F) Pulse: 68 Resp: 18 SpO2: 98% BP: 144/80 Last Weights: Wt Readings from Last 3 Encounters: 12/27/22 79.4 kg (175 lb) 09/13/22 82.3 kg (181 lb 8 oz) 08/21/22 82.2 kg (181 lb 1.9 oz) Last BPs: BP Readings from Last 4 Encounters: 02/26/23 144/80 01/23/23 124/78 12/27/22 128/72 12/17/22 138/88 PE NOT COMPLETED BECAUSE OF CONNECTIVITY ISSUES Physical Exam Cardiovascular: Rate and Rhythm: Normal rate. Rhythm irregular. Lab Review: I have reviewed the following results: BMP results Recent Labs Units 12/17/22 1044 11/27/22 1055 03/02/22 1614 SODIUM - [facility] mmol/L 141 141 138 POTASSIUM - [facility] mmol/L 4.3 3.9 4.2 CHLORIDE - [facility] mmol/L 102 103 101 CO2 - [facility] mmol/L 29 27 30 CREATININE - [facility] mg/dL 1.4* 1.5* 1.3* BUN - [facility] mg/dL 22* 20 23* CBC results Recent Labs Units 12/17/22 1044 [...] 1401 TSH - [facility] uIU/mL 2.04 2.34 Medication Review "Bottles Out" medication review not performed today due to telehealth, but with medication list reviewed and updated in the EMR as appropriate Mobility Evaluation: MAHC10 Assessment: MAHC-10 ([facility]) Fall Risk Assessment Tool Age 65+: Yes (02/26/23 1000) Diagnosis (3 or more co-existing): Yes (02/26/23 1000) Prior history of falls within 3 months: No (02/26/23 1000) Incontinence: Yes (02/26/23 1000) Visual impairment: No (02/26/23999) Impaired functional mobility: No (02/26/23999) Environmental hazards: No (02/26/23999) Poly Pharmacy (4 or more prescriptions - any type): Yes (02/26/23999) Pain affecting level of function: No (02/26/23999) Cognitive impairment: No (02/26/23999) Score - a score of 4 or more is considered at risk for fallin (02/26/23999) Assistive Devices Used in the Home: Walker (standard or rollator) Mickie Berry PA-C 10:15 AM *Communication sent to PCP (via [employer] if [facility]), [facility] Care Team members,relevant Specialty Care Physicians* * Sheyla Bauer, [facility] Health Chemical Treatment Operator - 02/26/2023 10:13 AM EDT Community Health Chemical Treatment Operator Visit Date: 02/26/2023 Time: 10:13 AM Name: Rhea Diaz : 1935 Rhea was reclining in her lift chair when I arrived. Her son Neal was there helping her aroundthe house. Referral Source: Provider Source of Information: Patient Spoken language: barbadian Patient can read in [place]: Yes. Administrative Technician needed: No. COVID-19 screening completed: Yes Vitals: Vital signs completed: Yes, vital signs within normal range. BP 144/80 | Pulse 68 | Temp 36 C (96.8 F) (Infrared ) | Resp 18 | SpO2 98% Condition Changes: Changes in health or social status since last visit: na The patient has new concerns since last visit: No Progress towards goals since last visit: To be able to move around-somewhat able to move around Pain control-so so Walk by myself-uses walker Medications: Medication review completed? No, provider [facility] They are in a weekly pill box Does the patient have barriers to medication adherence? No. Patient reports difficulty paying for medications or might in the future: No. Telehealth: This is a telehealth visit: Yes. Type of telehealth visit: Return/Routine Visit conducted with: Physician/AP Symptoms Surveys and Evaluations: MAHC10 completed this visit: Yes. Score is 4 or more? No Last flowsheet values for MAHC10: Age 65+: 1 (02/26/2023 10:00 AM) Diagnosis (3 or more co-existing): 1 (02/26/2023 10:00 AM) Prior history of falls within 3 months: 0 (02/26/2023 10:00 AM) Incontinence: 1 (02/26/2023 10:00 AM) Visual impairment: 0 (02/26/2023 10:00 AM) Impaired functional mobility: 0 (02/26/2023 10:00 AM) Environmental hazards: 0 (02/26/2023 10:00 AM) Poly Pharmacy (4 or more prescriptions - any type): 1 (02/26/2023 10:00 AM) Pain affecting level of function: 0 (02/26/2023 10:00 AM) Cognitive impairment: 0 (02/26/2023 10:00 AM) Score - a score of 4 or more is considered at risk for fallin (02/26/2023 10:00 AM) Transition of Care: Discharge instructions reviewed with patient/caregiver Plan: Reinforced patient's three red flags by the care team Increased swelling in LE Redness/warmth/discomfort in BLE Sob above baseline Reviewed red flags through teach back method. . Reviewed fall prevention and safety education. She admits she doesn;t always use her walker. She has been having left leg pain from him hip all the waydown. Reviewed the POC for exacerbation. Follow Up: Patient encouraged to call the intake phone number for all urgent but not emergent issues. Scheduled to follow up with patient on 03/13/2023 with Fernanda. Sheyla Bauer Community Health Chemical Treatment Operator 02/26/2023 10:13 AM documented in this encounter Miscellaneous Notes * Assessment & Plan Note - Mickie Berry PA-C - 02/27/2023 10:12 PM EDTAssociated Problem(s): Paroxysmal atrial fibrillation (HCC) Amiodarone, coumadin * Assessment & Plan Note - Mickie Berry PA-C - 02/27/2023 10:11 PM EDTAssociated Problem(s): Hypertensive heart and kidney disease with [...] Plan BMP Pro-BNP Chest X-Ray Additional Comments: * Assessment & Plan Note - Mickie Berry PA-C - 02/27/2023 10:10 PM EDTAssociated Problem(s): Unspecified dementia, unspecified severity, without behavioral disturbance, psychotic disturbance, mood disturbance, and anxiety (HCC) Stable, interactive today documented in this encounter Plan of Treatment Upcoming Encounters Date Type Specialty Care Team Description 03/12/2023 Laboratory Laboratory Processing [facility], [facility] Mobile Home Draw [address] [place] [address] 03/13/2023 [facility] [address] [facility] [place] [address] 03/13/2023 Home Visit [facility] Fernanda [address] RN [address] [facility] [place] [address] 04/03/2023 Office Visit Cardiology Neri Carrizales PA-C [address] [place] [address] 09/23/2023 Office Visit Cardiology Adam Magallanes MD [address] [place] [address] Health Maintenance Due Date Last Done Comments [...] Additional history exists CKD PHOS USE SMARTSET 80345 03/02/202302/15, 07/04/2021, 09/12/2020, Additional history exists HbA1c 05/29/2023 11/27/2022, 0506/2021, 07/25/2021, Additional history exists DIABETES-EYE EXAM 07/20/2023 07/20/2022, , 07/13/2019, Additional history exists CKD HGB USE SMARTSET 06614 12/18/202312/17, 12/17/2022, 11/27/2022, Additional history exists DXA Scan 12/27/2023 12/26/2021, 05/17, 05/26/2014, Additional history exists DTaP,Tdap,and Td Vaccines (2 - Td or Tdap) 02/01/2025 02/01/2015, 11/20/2007, 09/21/1998 Pneumococcal Vaccine: 65+ Years Completed 08/04/2014, 12/29/2009 Zoster Vaccines Completed 11/14/2018, 10/15, 05/30/2018, Additional history exists VITAMIN D LEVEL ONCE IN A LIFETIME-USE SMARTSET# [id number] Completed 07/04/2021, 09/12/2020, 01/11/2020, Additional history exists [...] as of this encounter Visit Diagnoses Diagnosis Paroxysmal atrial fibrillation (HCC)- Primary Atrial fibrillation Hypertensive heart and kidney 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 and stage 3b chronic kidney disease (HCC) 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 disturbance, psychotic disturbance, mood disturbance, or anxiety, unspecified dementia severity (HCC) Cardiac pacemaker in situ Hemiplegia, 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HCC) Hemiplegia affecting unspecified side, 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 Care Teams Elevator Operator Freight Relationship Specialty Start Date End Date Nhung LOPEZ, Steve Langston MD [address] [place] [address], [place] [address] PCP - General 01/30/1996 documented as of this encounter
--- OUTSIDE RECORDS SUMMARY | 2023-06-27 02:57 | External Medical Summary | Summary of Care ---
Author Name Unknown Organization [facility] Address [address] [facility] [place] [address] Phone [phone] Care Team Providers Care Lead Generation Marketing Manager Name Role Phone Nhung LOPEZ MD, Steve Langston Primary Care Provider [phone] Reason for Visit * Reason Onset Date Comments [facility]: Maintenance 02/26/2023 Encounter Details Date Type Department Care Team Description 02/26/2023 Telephone [facility], [facility] [address] [facility] [place] [address] [facility], Nurse [facility] [address] [place] [address] [facility]: Maintenance Allergies Active Allergy Reactions Severity Noted Date Comments Adhesive Tape 07/05/2022 Doxycycline Nausea/vomiting 11/03/2010 Metoclopramide Hcl Neuro complications (Please comment) 12/07/2010 Developed worsening tremor and lip smacking. Naproxen 01/23/2012 Can not tolerate-gets very emotional and depressed documented as of this encounter (statuses as of 02/26/2023) Medications Medication Sig Dispensed Refills Start Date [...] HIP 350 g 3 1 Active Biotin 86613 MCG Oral Tablet Take 1 Tablet by [...] as of this encounter (statuses as of 02/26/2023) Active Problems Problem Noted Date Advanced care [...] 12/22/13 Steve Hooker III, MD [facility] [place] Facet arthropathy, lumbar 10/07/2013 Type 2 diabetes [...] as of this encounter (statuses as of 02/26/2023) Resolved Problems Problem Noted Date Resolved Date [...] as of this encounter (statuses as of 02/26/2023) Immunizations Name Administration Dates Next Due COVID-19 mRNA, LNP-s, No Pre serve, 2-Dose Series (quietrevolution) 06/01/2021,10/15/2020,09/24/2020 Covid-19, Mrna, Lnp-s, Pf, B ivalent, [...] encounter Miscellaneous Notes * Telephone Encounter - Hanh Alexander RN - 02/26/2023 11:47 AM EDT Daniel, patient son calling that the person who was just there left a bag. She was heading to [place]. to make aware. Hanh Alexander. RN [facility] mat sewer [phone] documented in this encounter Plan of Treatment Upcoming Encounters Date Type Specialty Care Team Description 02/27/20[facility] [address] [facility] [place] [address] 03/13/2023 Home Visit [facility] Fernanda Lane RN [address] [place] [address] 04/03/2023 Office Visit Cardiology Neri Carrizales PA-C [address] [place] [address] 09/23/2023 Office Visit Cardiology Adam Magallanes MD [address] [place] [address] Health Maintenance Due Date Last Done Comments [...] Additional history exists CKD PHOS USE SMARTSET 67850 03/02/202302/15, 07/04/2021, 09/12/2020, Additional history exists HbA1c 05/29/2023 11/27/2022, 10/17, 07/25/2021, Additional history exists DIABETES-EYE EXAM 07/20/2023 07/20/2022, , 07/13/2019, Additional history exists CKD HGB USE SMARTSET 73035 12/18/202312/17, 12/17/2022, 11/27/2022, Additional history exists DXA Scan 12/27/2023 12/26/2021, 05/17, 05/26/2014, Additional history exists DTaP,Tdap,and Td Vaccines (2 - Td or Tdap) 02/01/2025 02/01/2015, 11/20/2007, 09/21/1998 Pneumococcal Vaccine: 65+ Years Completed 08/04/2014, 12/29/2009 Zoster Vaccines Completed 11/14/2018, 10/15, 05/30/2018, Additional history exists VITAMIN D LEVEL ONCE IN A LIFETIME-USE SMARTSET# 68544 Completed 07/04/2021, 09/12/2020, 01/11/2020, Additional history exists [...] and were consensually agreed upon. Care Teams Lead Generation Marketing Manager Relationship Specialty Start Date End Date Steve Hooker III, MD [address] [place] [address] PCP - General 01/30/1996 documented as of this encounter
--- OUTSIDE RECORDS SUMMARY | 2023-06-27 02:57 | External Medical Summary | Summary of Care ---
Author Name Unknown Organization [facility] Address [address] [place] [address] Phone [phone] Care Team Providers Care Nail Setter Name Role Phone Nhung LOPEZ MD, Christiano Langston Primary Care Provider [phone] Reason for Visit * Reason Onset Date Comments Medication Refill 02/15/2023 Encounter Details Date Type Department Care Team Description 02/15/2023 Refill [facility] [place] [address] [place] [address] Christiano Harkins III, MD [address] [place] [address] Pain Allergies Active Allergy Reactions Severity Noted Date Comments Adhesive Tape 07/05/2022 Doxycycline Nausea/vomiting 11/03/2010 Metoclopramide Hcl Neuro complications (Please comment) 12/07/2010 Developed worsening tremor and lip smacking. Naproxen 01/23/2012 Can not tolerate-gets very emotional and depressed documented as of this encounter (statuses as of 02/18/2023) Medications Medication Sig Dispensed Refills Start Date [...] HIP 350 g 3 1 Active Biotin 90868 MCG Oral Tablet Take 1 Tablet by [...] as of this encounter (statuses as of 02/18/2023) Active Problems Problem Noted Date Advanced care [...] 12/22/13 Christiano Harkins III, MD [facility] [place] Facet arthropathy, lumbar 10/07/2013 Type 2 diabetes [...] as of this encounter (statuses as of 02/18/2023) Resolved Problems Problem Noted Date Resolved Date [...] as of this encounter (statuses as of 02/18/2023) Immunizations Name Administration Dates Next Due COVID-19 [...] Encounter - Christiano Harkins III, MD - 02/18/2023 6:17 AM EDTSigned Prescriptions: Disp Refills oxyCODONE-Acetaminophen 10-325 MG Oral Tab*120 Ta*0 Sig: Take 1 Tablet by mouth every 6 hours as needed for Pain, Severe.Authorizing Provider: CHRISTIANO HARKINS III----- * Telephone Encounter - Paul Villarreal [facility] - 02/15/2023 3:51 PM EDT Pending Prescriptions: Disp Refills oxyCODONE-Acetaminophen 10-325 MG Oral Tab*120 Ta*0 Sig: Take 1 Tablet by mouth every 6 hours as needed for Pain, Severe. * Telephone Encounter - Paul Villarreal [facility] - 02/15/2023 3:50 PM EDT I have reviewed the patients controlled substance dispensing history in the Prescription Drug Monitoring Program in compliance with the [facility] regulations before prescribing a controlled substance. PDMP checked on 02/15/2023. Pending Prescriptions: Disp Refills oxyCODONE-Acetaminophen 10-325 MG Oral Ta*120 Ta*0 Sig: Take 1 Tablet by mouth every 6 hours as needed for Pain, Severe. Last Visit: 08/21/2022 (in office), 11/21/2022 (telemedicine) Next Visit: Visit date not found Date medication was last filled: 01/14/23 Date medication is due for refill: 02/11/23 Pharmacy: [facility] Is this request for a controlled substance? Yes and Urine Drug Screen Not completed Please approve if appropriate. Thanks, Paul Villarreal, RadhaD Clinical Pharmacist [facility] ([facility]) (formerly Telepharmacy) [phone] 02/15/2023, 3:50 PM * Telephone Encounter - RADHA Verma Tech - 02/15/2023 2:36 PM EDT Did you pend patient's preferred pharmacy and medication before forwarding?yes Pharmacy: [facility] Pending Prescriptions: Disp Refills oxyCODONE-Acetaminophen 10-325 [...] appointment Last date the medication was ordered: 01/11 Is this request for a controlled substance?Yes, What was the last refill date 01/11 w/ quantity 120 and dosage 48538 and Urine Drug Screen Not completed Urine [...] Care Team Description 02/26/2023 Laboratory Laboratory Processing [facility] Mobile Home Draw [address] [place] [address] 02/26/2023 Telemedicine [facility] Mickie Berry PA-C [address] [place] [address] Sheyla Bauer, Community Health Nurse Gynecology [address] [place] [address] 02/27/2023 [facility] [address] [place] [address] 03/13/2023 Home Visit [facility] [address], RN [address] [place] [address] 04/03/2023 Office Visit Cardiology Neri Carrizales PA-C [address] [place] [address] 09/23/2023 Office Visit Cardiology Adam Magallanes MD [address] [place] [address] Health Maintenance Due Date Last Done Comments [...] Additional history exists CKD PHOS USE SMARTSET 16797 03/02/202302/15, 07/04/2021, 09/12/2020, Additional history exists HbA1c 05/29/2023 11/27/2022, 10/17, 07/25/2021, Additional history exists DIABETES-EYE EXAM 07/20/2023 07/20/2022, , 07/13/2019, Additional history exists CKD HGB USE SMARTSET 58360 12/18/202312/17, 12/17/2022, 11/27/2022, Additional history exists DXA Scan 12/27/2023 12/26/2021, 05/17, 05/26/2014, Additional history exists DTaP,Tdap,and Td Vaccines (2 - Td or Tdap) 02/01/2025 02/01/2015, 11/20/2007, 09/21/1998 Pneumococcal Vaccine: 65+ Years Completed 08/04/2014, 12/29/2009 Zoster Vaccines Completed 11/14/2018, 10/15, 05/30/2018, Additional history exists VITAMIN D LEVEL ONCE IN A LIFETIME-USE SMARTSET# 47735 Completed 07/04/2021, 09/12/2020, 01/11/2020, Additional history exists [...] and were consensually agreed upon. Care Teams Nail Setter Relationship Specialty Start Date End Date Christiano Harkins III, MD [address] [place] [address] PCP - General 01/30/1996 documented as of this encounter
--- OUTSIDE RECORDS SUMMARY | 2023-06-27 02:57 | External Medical Summary | Summary of Care ---
Author Name Unknown Organization [facility] Address [address] [place] [address] Phone [phone] Care Team Providers Care Maintenance Service Supervisor Name Role Phone Nhung LOPEZ MD, Steve Langston Primary Care Provider [phone] Reason for Visit * Reason Comments Dosage Adjustment Via Phone (anticoag Cl inic) Encounter Details Date Type Department Care Team Description 01/29/2023 Anticoagulation Pharmacy Call Center [address] [place] [address] [facility] [address] [place] [address] Atrial fibrillation with RVR ([facility])* Allergies Active Allergy Reactions Severity Noted Date Comments Adhesive Tape 07/05/2022 Doxycycline Nausea/vomiting 11/03/2010 Metoclopramide Hcl Neuro complications (Please comment) 12/07/2010 Developed worsening tremor and lip smacking. Naproxen 01/23/2012 Can not tolerate-gets very emotional and depressed documented as of this encounter (statuses as of 01/29/2023) Medications Medication Sig Dispensed Refills Start Date [...] HIP 350 g 3 1 Active Biotin 64611 MCG Oral Tablet Take 1 Tablet by [...] as of this encounter (statuses as of 01/29/2023) Active Problems Problem Noted Date Advanced care [...] 12/22/13 Steve Hooker III, MD [facility] Facet arthropathy, lumbar 10/07/2013 Type 2 diabetes [...] as of this encounter (statuses as of 01/29/2023) Resolved Problems Problem Noted Date Resolved Date [...] as of this encounter (statuses as of 01/29/2023) Immunizations Name Administration Dates Next Due COVID-19 mRNA, LNP-s, No Pre serve, 2-Dose Series (Kidzloop) 06/01/2021,10/15/2020,09/24/2020 Covid-19, Mrna, Lnp-s, Pf, B ivalent, 10 Mcg, IM, 5-11 yrs (Kidzloop) 07/12/2022 H1N1 2009 Influenza, IM 06/28/2009 PPD 07/06/2022 Pneumococcal Conjugate Vacc, 13 Valent (Prevnar) 08/04/2014 Pneumococcal Polysaccharide PPV23 (Pneumovax) 12/29/2009 Seasonal Influenza, Quadriva lent Hd (Fluzone Hd) 03/27/2021 Seasonal Influenza, Quadriva lent Hd, 65+ Yrs 07/10/2022 Seasonal Influenza, Quadriva lent, No Preserve, 6 Mons & Above, IM 03/11/2018,05/29/2017 Seasonal Influenza, Quadriva lent, No Preserve, Adjuvanted, 65+ Yrs, IM 06/08/2020 Seasonal Influenza, Quadriva lent, No Preserve, IM [...] this encounter Progress Notes * Lea Espana [facility] - 01/29/2023 9:28 AM EDT Agree with plan. Lea Espana [facility], Pharm.D. Clinical Pharmacist Telepharmacy [phone] 01/29/2023,9:28 AM * Tim Higgins, Pharmacy Special Education Science Teacher - 01/29/2023 9:20 AM EDT Images from the original note were not included. Medication Therapy Disease Management - Anticoagulation Patient: Rhea Greerutcheon | : 1935 Subjective Contacts Type Contact Phone/Fax 01/29/2023 10:55 AM EDT Phone (Outgoing) RUFINO BARRIENTOS (Emergency Contact) [phone] Left Message Patient-Reported Symptoms: Objective Current Warfarin Dose As of 01/29/2023 Warfarin maintenance plan: 6 mg (4 mg x 1.5) every Mon, Wed, Fri; 4 mg (4 mg x 1) all other days INR Result As of 01/29/2023 INR goal: 2.0-3.0 INR used for dosin.2 (01/28/2023) Assessment & Plan Warfarin Plan As of 01/29/2023 Full warfarin instructions: 01/29: Hold; Otherwise 6 mg every Mon, Wed, Fri; 4 mg all other days Next INR check: 2023 Repeat PT/INR in 2 week(s) Weekly dose: not changed Additional Dosing Information: Description GML - Call Rufino with results/dosing Amiodarone decreased 01/2021 Tim Higgins, Pharmacy Special Education Science Teacher Clinical Pharmacist 01/29/2023, 9:20 AM documented in this encounter Plan of Treatment Upcoming Encounters Date Type Specialty Care Team Description 2023 Laboratory Laboratory Processing [facility], [facility] Home Draw [address] [place], [place] [id number] 02/13/2023 [facility] [address] [place] [address] 02/15/2023 Telemedicine [facility] Vanessa Cullen CRNP [address] [place] [address] [facility] Aisle Cashier [address] [place] [address] 03/13/2023 Home Visit [facility] [address], IMER [address] [place] [address] 04/03/2023 Office Visit Cardiology Neri Carrizales PA-C [address] [place] [address] 09/23/2023 Office Visit Cardiology Adam Magallanes MD [address] [place] [address] Health Maintenance Due Date Last Done Comments [...] Additional history exists CKD PHOS USE SMARTSET 68426 03/02/202302/15, 07/04/2021, 09/12/2020, Additional history exists HbA1c 05/29/2023 11/27/2022, 10/17, 07/25/2021, Additional history exists DIABETES-EYE EXAM 07/20/2023 07/20/2022, , 07/13/2019, Additional history exists CKD HGB USE SMARTSET 06381 12/18/202312/17, 12/17/2022, 11/27/2022, Additional history exists DXA Scan 12/27/2023 12/26/2021, 05/17, 05/26/2014, Additional history exists DTaP,Tdap,and Td Vaccines (2 - Td or Tdap) 02/01/2025 02/01/2015, 11/20/2007, 09/21/1998 Pneumococcal Vaccine: 65+ Years Completed 08/04/2014, 12/29/2009 Zoster Vaccines Completed 11/14/2018, 10/15, 05/30/2018, Additional history exists VITAMIN D LEVEL ONCE IN A LIFETIME-USE SMARTSET# [id number] Completed 07/04/2021, 09/12/2020, 01/11/2020, Additional history exists [...] and were consensually agreed upon. Care Teams Maintenance Service Supervisor Relationship Specialty Start Date End Date Steve Hooker III, MD [address] [place] [address], [place] [address] PCP - General 01/30/1996 documented as of this encounter"
--- OUTSIDE RECORDS SUMMARY | 2023-06-27 02:57 | External Medical Summary | Summary of Care ---
Author Name Unknown Organization [facility] Address [address] [place] [address] Phone [phone] Care Team Providers Care Mortgage Loan Funder Name Role Phone Nhung LOPEZ MD, Steve Langston Primary Care Provider [phone] Reason for Visit * Reason Comments Dosage Adjustment Via Phone (anticoag Cl inic) Encounter Details Date Type Department Care Team Description 02/27/2023 Anticoagulation Pharmacy Call Center [address] [place] [address] [facility] [address] [place] [address] Atrial fibrillation with RVR ([facility])* Allergies Active Allergy Reactions Severity Noted Date [...] HIP 350 g 3 1 Active Biotin 07218 MCG Oral Tablet Take 1 Tablet by [...] TO FACE 60 g 5 2 04/04/20 Active Additional Information Patient not taking.Reported on 09/13/2022 Pimecrolimus 1 % External Cream (Elidel) APPLY TOPICALLY TO AFFECTED AREA 2 TIMES PER DAY 60 g 2 2 03/30/20 Active Additional Information Patient not taking.Reported on [...] 12/22/13 Steve Hooker III, MD [facility] [place] [facility] Facet arthropathy, lumbar 10/07/2013 Type 2 diabetes [...] Miguel A De La Rosa CPhT - 02/27/2023 8:07 AM EDT Contacts Type Contact Phone/Fax 02/27/2023 08:02 AM EDT Phone (Outgoing) RUFINO BARRIENTOS (Emergency Contact) [phone] spoke with rufino Subjective Patient Findings Negatives: Signs/symptoms of thrombosis, Signs/symptoms of bleeding, Change in health, Change in alcohol use, Change in activity, Upcoming invasive procedure, Missed doses, Extra doses, Change in medications, Change in diet/appetite, Bruising Advised patient to contact Anticoagulation Clinic if any unusual bruising or bleeding, recent illness, changes in medication, or questions/concerns. PT/INR results, Coumadin dose instructions, and next PT/INR date communicated as noted by Pharmacist: Yes Miguel A De La Rosa CPhT 02/27/2023, 8:07 AM * Lea Espan[facility] - 02/27/2023 7:58 AM EDT Coumadin Clinic (region specific) Objective Current Warfarin Dose As of 02/27/2023 Warfarin maintenance plan: 6 mg (4 mg x 1.5) every Mon, Wed, Fri; 4 mg (4 mg x 1) all other days INR Result As of 02/27/2023 INR goal: 2.0-3.0 INR used for dosin.5 (02/26/2023) Assessment & Plan Warfarin Plan As of 02/27/2023 Full warfarin instructions: 02/27: Hold; Otherwise 6 mg every Mon, Wed, Fri; 4 mg all other days Next INR check: 03/12/2023 Repeat PT/INR in 2 week(s) Weekly dose: not changed Additional Dosing Information: Description GML - Call Rufino with results/dosing Amiodarone decreased 01/2021 Tech to contact patient with dose instructions as noted. Lea Espana RPh 02/27/2023, 7:58 AM documented in this encounter Plan of Treatment Upcoming Encounters Date Type Specialty Care Team Description 03/13[facility] [address] [facility] [place] [address] 03/13/2023 Home Visit [facility] Fernanda Lane RN [address] [place] [address] 04/03/2023 Office Visit Cardiology Neri Carrizales PA-C [address] [place] [address] 09/23/2023 Office Visit Cardiology Adam Magallanes MD [address] [place] [address] Health Maintenance Due Date Last Done Comments [...] Additional history exists CKD PHOS USE SMARTSET 13068 03/02/202302/15, 07/04/2021, 09/12/2020, Additional history exists HbA1c 05/29/2023 11/27/2022, 05/06/2021, 07/25/2021, Additional history exists DIABETES-EYE EXAM 07/20/2023 07/20/2022, , 07/13/2019, Additional history exists CKD HGB USE SMARTSET 63702 12/18/202312/17, 12/17/2022, 11/27/2022, Additional history exists DXA Scan 12/27/2023 12/26/2021, 05/17, 05/26/2014, Additional history exists DTaP,Tdap,and Td Vaccines (2 - Td or Tdap) 02/01/2025 02/01/2015, 11/20/2007, 09/21/1998 Pneumococcal Vaccine: 65+ Years Completed 08/04/2014, 12/29/2009 Zoster Vaccines Completed 11/14/2018, 10/15, 05/30/2018, Additional history exists VITAMIN D LEVEL ONCE IN A LIFETIME-USE SMARTSET# [id number] Completed 07/04/2021, 09/12/2020, 01/11/2020, Additional history exists [...] and were consensually agreed upon. Care Teams Mortgage Loan Funder Relationship Specialty Start Date End Date Steve Hooker III, MD [address] [place] [address] PCP - General 01/30/1996 documented as of this encounter
--- OUTSIDE RECORDS SUMMARY | 2023-06-27 02:57 | External Medical Summary ---
Author Name Unknown Address Unknown Organization K01:[facility] [place] [address] [place] [address] Laboratory Report Ordering Provider Test Date Status LOURDES DE GUZMAN 2023 10:02:00 Final Standing order for pt/inr. < br/>Please draw pt/inr every 1 to 4 weeks as requested
Results to [facility]

Warfarin Therapy
INR: 2.0-3.0 conventional anticoagulation
INR: 2.5-3.5 high intensity anticoagulation Observation Date Value Abnormality Reference (Units ) Status PT 2023 10:02:00 30.7 Above high normal 11 .6-15.2 (seconds) Final INR 2023 10:02:00 2.9 Above high normal 0. 8-1.2 Final Performing Location [facility] [place] [address] [place] [address]
--- OUTSIDE RECORDS SUMMARY | 2023-06-27 02:58 | External Medical Summary ---
Author Name Unknown Address Unknown Organization [id number]:[facility] [place] - [address] [facility] [address] Laboratory Report Ordering Provider Test Date Status BABATUNDE FERRARI 01/14/2023 10:05:00 Final Observation Date Value Abnormality Reference (Units ) Status Triglyceride 01/14/2023 10:05:00 146 <=174 ( mg/dL) Final Triglyceride Reference Range s (mg/dL):
<150 Acceptable
150-174 Borderline high
175-499 High
>=500 Very high Cholesterol 01/14/2023 10:05:00 144 <200 (mg /dL) Final Total Cholesterol Reference Ranges (mg/dL):
<200 Desirable
200-239 Borderline high
>=240 High HDL 01/14/2023 10:05:00 50 >49 (mg/dL ) Final HDL Cholesterol Reference Ra nges (mg/dL):
>=60 High (Desirable)
<50 Low (Undesirable) For Females
<40 Low (Undesirable) For Males NON-HDL CHOLESTEROL 01/14/2023 10:05:00 94 <=159 (mg/dL) Final Non-HDL Cholesterol Referenc e Range (mg/dL):
<100 Target level for high risk ASCVD patient
<130 Optimal for general population
130-159 Near optimal for general population
160-189 Borderline High
190-219 High
>=220 Very High LDL, (calculated) 01/14/2023 10:05:00 65 <= 129 (mg/dL) Final LDL Cholesterol Reference Ra nges (mg/dL):
<70 Target level for high risk ASCVD patient
<100 Optimal for general population
100-129 Near optimal for general population
130-159 Borderline high
160-189 High
>=190 Very high Performing Location [facility] [place] - [address] [facility] [address]
--- OUTSIDE RECORDS SUMMARY | 2023-06-27 02:58 | External Medical Summary | Summary of Care ---
Author Name Unknown Organization [facility] Address [address] [place] [address] Phone [phone] Care Team Providers Care Ingot Supervisor Name Role Phone Nhung LOPEZ MD, John E Primary Care Provider [phone] Reason for Visit * Reason Comments Medication Refill Encounter Details Date Type Department Care Team Description 01/15/2023 Refill Family Practice [facility] [place] [address] [facility] [place] [address] Christiano Harkins III, MD [address] [place] [address] Allergies Active Allergy Reactions Severity Noted Date Comments Adhesive Tape 07/05/2022 Doxycycline Nausea/vomiting 11/03/2010 Metoclopramide Hcl Neuro complications (Please comment) 12/07/2010 Developed worsening tremor and lip smacking. Naproxen 01/23/2012 Can not tolerate-gets very emotional and depressed documented as of this encounter (statuses as of 01/16/2023) Medications Medication Sig Dispensed Refills Start Date [...] A1c goal of less than 8.0% ([facility]) Use to test once daily DX E11.9 100 Each 3 1 Active Biotin 90662 MCG Oral Tablet Take 1 Tablet by [...] 90 Tablet 2 3 08/26/19 24 Active levETIRAcetam 500 MG Oral Tablet (Keppra) TAKE ONE TABLET BY MOUTH TWICE A DAY 180 Tablet 1 2 04/30/20 23 Active Atorvastatin Calcium 40 MG Oral Tablet [...] in the morning. 0 Active oxyCODONE-Acetamin ophen 10-325 MG Oral TabletIndications: Pain Take 1 Tablet by mouth every 6 hours as needed for severe Pain 120 Tablet 0 3 Active oxyCODONE-Acetamin ophen 5-325 MG Oral Tablet (Percocet) Take 2 Tablets by mouth every 6 hours as needed for Pain, Moderate (Pain). Can take 1 regular strength Tylenol every 6 hours as well 240 Tablet 0 3 Active traZODone HCl 50 MG Oral Tablet (Desyrel) TAKE 1/2 TABLET BY MOUTH AT BEDTIME 45 Tablet 2 3 Active traZODone HCl 50 MG Oral Tablet (Desyrel) Take 1 Tablet by mouth at bedtime. TAKE 1/2 TABLET BY MOUTH AT BEDTIME 45 Tablet 2 3 01/16/20 23 Discontinu ed(Refill) documented as of this encounter (statuses as of 01/16/2023) Active Problems Problem Noted Date Advanced care [...] 12/22/13 Christiano Harkins III, MD [facility] [place] Facet arthropathy, lumbar 10/07/2013 Type 2 diabetes [...] as of this encounter (statuses as of 01/16/2023) Resolved Problems Problem Noted Date Resolved Date [...] as of this encounter (statuses as of 01/16/2023) Immunizations Name Administration Dates Next Due COVID-19 mRNA, LNP-s, No Pre serve, 2-Dose Series (Pinstant Karma) 06/01/2021,10/15/2020,09/24/2020 Covid-19, Mrna, Lnp-s, Pf, B ivalent, [...] Notes * Telephone Encounter - Jean Paul Fatima [facility] - 01/16/2023 12:35 PM EDTSigned Prescriptions: Disp Refills traZODone HCl 50 MG Oral Tablet (Desyrel) 45 Tab*2 Sig: TAKE 1/2 TABLET BY MOUTH AT BEDTIME Authorizing Provider: CHRISTIANO HARKINS III User: JEAN PAUL FATIMA * Telephone Encounter - Jean Paul Fatima [facility] - 01/16/2023 12:33 PM EDT No dosage change noted on yesterdays refill encounter. Resent at current dose. Thank you, Jean Paul Fatima, PharmD Clinical Pharmacist [facility] ([facility]) (Formerly Telepharmacy) [phone] 01/16/2023, 12:34 PM documented in this encounter Plan of Treatment Upcoming Encounters Date Type Specialty Care Team Description 01/23/2023 Home Visit [facility] [address], RN [address] [place] [address] 01/28/2023 Laboratory Laboratory Processing [facility] Draw [address] [place] [address] 01/29/2023 [facility] [address] [facility] [address] 02/15/2023 Telemedicine [facility] Vanessa Cullen CRNP [address] [place] [address] [facility] [address] [place] [address] 04/03/2023 Office Visit Cardiology Neri Carrizales PA-C [address] [place] [address] 09/23/2023 Office Visit Cardiology Adam Magallanes MD [address] [place] [address] Health Maintenance Due Date Last Done Comments [...] Additional history exists CKD PHOS USE SMARTSET 46482 03/02/202302/15, 07/04/2021, 09/12/2020, Additional history exists HbA1c 05/29/2023 11/27/2022, 05/3 06/2021, 07/25/2021, Additional history exists DIABETES-EYE EXAM 07/20/2023 07/20/2022, , 07/13/2019, Additional history exists CKD HGB USE SMARTSET 05466 12/18/202312/17, 12/17/2022, 11/27/2022, Additional history exists DXA Scan 12/27/2023 12/26/2021, 05/17, 05/26/2014, Additional history exists DTaP,Tdap,and Td Vaccines (2 - Td or Tdap) 02/01/2025 02/01/2015, 11/20/2007, 09/21/1998 Pneumococcal Vaccine: 65+ Years Completed 08/04/2014, 12/29/2009 Zoster Vaccines Completed 11/14/2018, 10/15, 05/30/2018, Additional history exists VITAMIN D LEVEL ONCE IN A LIFETIME-USE SMARTSET# 58127 Completed 07/04/2021, 09/12/2020, 01/11/2020, Additional history exists [...] and were consensually agreed upon. Care Teams Ingot Supervisor Relationship Specialty Start Date End Date Christiano Harkins III, MD [address] [place] [address] PCP - General 01/30/1996 documented as of this encounter
--- OUTSIDE RECORDS SUMMARY | 2023-06-27 02:58 | External Medical Summary | Summary of Care ---
Author Name Unknown Organization [facility] Address [address] [place] [address] Phone [phone] Care Team Providers Care Cyber Systems Engineer Name Role Phone Nhung LOPEZ MD, Christiano Langston Primary Care Provider [phone] Reason for Visit * Reason Onset Date Comments Medication Refill 01/10/2023 Encounter Details Date Type Department Care Team Description 01/10/2023 Refill [facility] Practice [facility] [place] [address] [place] [address] Christiano Harkins III, MD [address] [place] [address] Pain Allergies Active Allergy Reactions Severity Noted Date Comments Adhesive Tape 07/05/2022 Doxycycline Nausea/vomiting 11/03/2010 Metoclopramide Hcl Neuro complications (Please comment) 12/07/2010 Developed worsening tremor and lip smacking. Naproxen 01/23/2012 Can not tolerate-gets very emotional and depressed documented as of this encounter (statuses as of 01/12/2023) Medications Medication Sig Dispensed Refills Start Date [...] hemoglobin A1c goal of less than 8.0% ([facility]) Use to test once daily DX E11.9 100 Each 3 1 Active Diclofenac Sodium 1 % External Gel Apply topically to affected area once for [address] 4 GRAM TOPICALLY ON THE SKIN 4 TIMES A DAY TO RIGHT HIP 350 g 3 1 Active Biotin 00719 MCG Oral Tablet Take 1 Tablet by [...] 90 Tablet 2 3 08/26/19 24 Active traZODone HCl 50 MG Oral Tablet (Desyrel) TAKE 1/2 TABLET BY MOUTH AT BEDTIME 45 Tablet 2 2 06/05/20 23 Active levETIRAcetam 500 MG Oral Tablet [...] every 6 hours as needed for severe pain. 120 Tablet 0 3 01/11/20 23 Discontinu ed(Refill) documented as of this encounter (statuses as of 01/12/2023) Active Problems Problem Noted Date Advanced care [...] 12/22/13 Christiano Harkins III, MD [facility] [place] Facet arthropathy, lumbar 10/07/2013 Type 2 diabetes [...] as of this encounter (statuses as of 01/12/2023) Resolved Problems Problem Noted Date Resolved Date [...] as of this encounter (statuses as of 01/12/2023) Immunizations Name Administration Dates Next Due COVID-19 mRNA, LNP-s, No Pre serve, 2-Dose Series (Goodreads) 06/01/2021,10/15/2020,09/24/2020 Covid-19, Mrna, Lnp-s, Pf, B ivalent, 10 Mcg, IM, 5-11 yrs (Pfizer) 07/12/2022 H1N1 2009 Influenza, IM 06/28/2009 PPD 07/06/2022 Pneumococcal Conjugate Vacc, 13 Valent (Prevnar) 08/04/2014 Pneumococcal Conjugate Vacci ne, 7 Valent 03/27/2002 Pneumococcal Polysaccharide PPV23 (Pneumovax) 12/29/2009 Seasonal Influenza, [...] encounter Miscellaneous Notes * Telephone Encounter - Vesta Mancilla CPhT - 01/12/2023 10:40 AM EDT Pt's daughter calling stating the pharmacy does not have her mothers medication in stock. Advised daughter to call pharmacies that would be the most convenient to see if they have the medication in stock. Pt's daughter stated she will call around. Thank you, Shannan Mancilla Injection Operator I [facility] (Formerly Telepharmacy) 01/12/2023,10:41 AM * Telephone Encounter - Christiano Harkins III, MD - 01/11/2023 12:17 PM EDTSigned Prescriptions: Disp Refills oxyCODONE-Acetaminophen 10-325 MG Oral Tab*120 Ta*0 Sig: Take 1 Tablet by mouth every 6 hours as needed for Pain, Severe.Authorizing Provider: CHRISTIANO HARKINS III----- * Telephone Encounter - Katherine Vides [facility] - 01/11/2023 11:45 AM EDTPending Prescriptions: Disp Refills oxyCODONE-Acetaminophen 10-325 MG Oral Tab*120 Ta*0 Sig: Take 1 Tablet by mouth every 6 hours as needed for Pain, Severe. * Telephone Encounter - Katherine Vides [facility] - 01/11/2023 11:45 AM EDT I have reviewed the patients controlled substance dispensing history in the Prescription Drug Monitoring Program in compliance with the [facility] regulations before prescribing a controlled substance. PDMP checked on 01/11/2023. Pending Prescriptions: Disp Refills oxyCODONE-Acetaminophen 10-325 MG Oral Ta*120 Ta*0 Sig: Take 1 Tablet by mouth every 6 hours as needed for Pain, Severe. Last Visit: 08/21/2022 (in office), 11/21/2022 (telemedicine) Next Visit: Visit date not found Date medication was last filled: 12/10/22 Date medication is due for refill: 01/08/23 Pharmacy: [facility] Is this request for a [...] Results Review. Please approve if appropriate. Thanks, Katherine Vides Clinical Pharmacist [facility] ([facility]) (Formerly Telepharmacy) [phone] 01/11/2023, 11:45 AM * Telephone Encounter - Brooke Robledo - 01/10/2023 1:12 PM EDT Did you pend patient's preferred pharmacy and medication before forwarding?yes Pharmacy: [facility] Pending Prescriptions: Disp Refills oxyCODONE-Acetaminophen [...] appointment Last date the medication was ordered: *12/10 Is this request for a controlled substance?Yes, What was the last refill date 12/10 w/ quantity 120 and dosage 10 325 [...] PM TSH 1.24 08/28/1996 02:50 PM LDLCALC 69 03/23/2020 03:39 PM LDLCALC 111. [...] Encounters Date Type Specialty Care Team Description 01/14/2023 Laboratory Laboratory Processing [facility], [facility] Mobile Home Draw [address] [facility] [place] [address] 01/15/2023 [facility] [address] [facility] [place] [address] 01/23/2023 Home Visit [facility] Fernanda Lane, RN [address] [place] [address] 02/15/2023 Telemedicine [facility] Vanessa Cullen CRNP [address] [place] [address] Ruben Trinidad Community Health Binder Selector [address] [place], [place] [id number] 04/03/2023 Office Visit Cardiology Neri Carrizales PA-C [address] [place] [address] 09/23/2023 Office Visit Cardiology Adam Magallanes MD [address] [place] [address] Health Maintenance Due Date Last Done Comments [...] Additional history exists CKD PHOS USE SMARTSET 43478 03/02/2023 09/11/2021, 07/04/2021, 09/12/2020, Additional history exists HbA1c 05/29/2023 11/27/2022, 10/17, 07/25/2021, Additional history exists DIABETES-EYE EXAM 07/20/2023 07/20/2022, , 07/13/2019, Additional history exists CKD HGB USE SMARTSET 60411 12/18/202312/17, 12/17/2022, 11/27/2022, Additional history exists DXA Scan 12/27/2023 12/26/2021, 05/17, 05/26/2014, Additional history exists DTaP,Tdap,and Td Vaccines (2 - Td or Tdap) 02/01/2025 02/01/2015, 11/20/2007, 09/21/1998 Pneumococcal Vaccine: 65+ Years Completed 08/04/2014, 12/29/2009 Zoster Vaccines Completed 11/14/2018, 10/15, 05/30/2018, Additional history exists VITAMIN D LEVEL ONCE IN A LIFETIME-USE SMARTSET# [id number] Completed 07/04/2021, 09/12/2020, 01/11/2020, Additional history exists [...] and were consensually agreed upon. Care Teams Cyber Systems Engineer Relationship Specialty Start Date End Date Christiano Harkins III, MD [address] [place] [address], [place] [address] PCP - General 01/30/1996 documented as of this encounter
--- OUTSIDE RECORDS SUMMARY | 2023-06-27 02:58 | External Medical Summary | Summary of Care ---
Author Name Unknown Organization [facility] Address [address] [place] [address] Phone [phone] Care Team Providers Care Ram Car Operator Name Role Phone Nhung LOPEZ MD, Steve Langston Primary Care Provider [phone] Reason for Visit * Reason Comments [facility]: Maintenance Encounter Details Date Type Department Care Team Description 01/23/2023 Home Visit [facility], [facility] [address] [place] [address], IMER [address] [place] [address] Allergies Active Allergy Reactions Severity Noted Date Comments Adhesive Tape 07/05/2022 Doxycycline Nausea/vomiting 11/03/2010 Metoclopramide Hcl Neuro complications (Please comment) 12/07/2010 Developed worsening tremor and lip smacking. Naproxen 01/23/2012 Can not tolerate-gets very emotional and depressed documented as of this encounter (statuses as of 01/25/2023) Medications Medication Sig Dispensed Refills Start Date [...] goal of less than 8.0% ([facility]) Use to test once daily DX E11.9 100 Each 3 1 Active Diclofenac Sodium 1 % External Gel Apply topically to affected area once for 1 dose. Apply [address] 4 GRAM TOPICALLY ON THE SKIN 4 TIMES A DAY TO RIGHT HIP 350 g 3 1 Active Biotin 28068 MCG Oral Tablet Take 1 Tablet by [...] AT BEDTIME 45 Tablet 2 3 Active documented as of this encounter (statuses as of 01/25/2023) Active Problems Problem Noted Date Advanced care [...] 12/22/13 Steve Hooker III, MD [facility] [place] Facet arthropathy, lumbar 10/07/2013 Type 2 diabetes [...] as of this encounter (statuses as of 01/25/2023) Resolved Problems Problem Noted Date Resolved Date [...] as of this encounter (statuses as of 01/25/2023) Immunizations Name Administration Dates Next Due COVID-19 mRNA, LNP-s, No Pre serve, 2-Dose Series ([employer]) 06/01/2021,10/15/2020,09/24/2020 Covid-19, Mrna, Lnp-s, Pf, B ivalent, [...] Sign Reading Time Taken Comments Blood Pressure 124/78 01/23/2023 11:12 AM EDT Pulse 62 01/23/2023 11:12 AM EDT Temperature 36.6 C (97.8 F) 01/23/2023 11:12 AM E DT Respiratory Rate 18 01/23/2023 11:12 AM EDT Oxygen Saturation 98% 01/23/2023 11:12 AM EDT Inhaled Oxygen Concentration - - Weight - - Height - - Body Mass Index - - documented in this encounter Progress Notes * Fernanda Lane, IMER - 01/23/2023 10:56 AM EDT Images from the original note were not included. [facility] Revenue Accounting Manager Visit Date: 01/23/2023 Time: 10:56 AM Name: Rhea Diaz : 1935 Current Concerns: Patient seen for follow up- CHF, Afib, Pacemaker, DM2 Continues with [facility]- last PT visit this week per patient. Unna boots to BLE weekly. Reports doing well Pain in left hip controlled with prn Percocet VS wnl Lungs clear bilaterally Sob with exertion Nonpitting edema to BLE- improved since switching to Torsemide and addition of Unna Boots Voiding without difficulty Bowels wnl Appetite good Taking fluids well. Problems/Symptoms: Review of Systems Constitutional: Negative. HENT: Negative. Eyes: Negative. Respiratory: Positive for shortness of breath. Cardiovascular: Positive for leg swelling. Gastrointestinal: Negative. Endocrine: Negative. Genitourinary: Negative. Musculoskeletal: Positive for arthralgias and gait problem. Skin: Negative. Hematological: Negative. Psychiatric/Behavioral: Negative. Physical Exam: BP 124/78 (BP Site: Left Arm, BP Position: Sitting, BP Cuff Size: Regular) | Pulse 62 | Temp 36.6 C (97.8 F) (Tympanic) | Resp 18 | SpO2 98% Pain 6- left hip Physical Exam Constitutional: Appearance: Normal appearance. Cardiovascular: Rate and Rhythm: Normal rate and regular rhythm. Pulses: Normal pulses. Heart sounds: Normal heart sounds. Pulmonary: Effort: Pulmonary effort is normal. Breath sounds: Normal breath sounds. Abdominal: General: Bowel sounds are normal. Palpations: Abdomen is soft. Musculoskeletal: General: Normal range of motion. Skin: General: Skin is warm and dry. Capillary Refill: Capillary refill takes 2 to 3 seconds. Neurological: General: No focal deficit present. Mental Status: She is oriented to person, place, and time. Psychiatric: Mood and Affect: Mood normal. Behavior: Behavior normal. [facility] Completed this Visit: No. Routine visit Treatment/Plan: Continue medications as prescribed Keep all upcoming MD appointments Fall precautions- walker Fluids encouraged Low na diet Elevate ble- edema RN CM follow up in 6 weeks Home Interventions Provided: Reinforced current Plan of Care, including self-management and medication regimen Patient's Goals of Care: 1. To be able to move around 2. Pain control 3. Walk by myself Patient's 'Red Flags': 4. Increased swelling in LE 5. Redness/warmth/discomfort in BLE 6. Sob above baseline Patient Needs to Remember: Call [facility] with any medical concerns/ red flags Referrals Needed: n/a Follow Up: Is there cellular connectivity/connectivity in the home? Yes Does the patient have internet in the home? Yes Patient encouraged to call the intake phone number for all urgent but not emergent issues. Scheduled to follow up with patient in 6 weeks. Fernanda Davis RN 01/23/2023 10:56 AM documented in this encounter Plan of Treatment Upcoming Encounters Date Type Specialty Care Team Description 01/28/2023 Laboratory Laboratory Processing [facility] Mobile Home Draw [address] [place] [address] 01/29/2023 Anticoagulation Pharmacy [facility] [address] [place] [address] 02/15/2023 Telemedicine [facility] Vanessa Cullen CRNP [address] [place] [address] Ruben Trinidad, Community Health Bag Builder [address] [place] [address] 03/13/2023 Home Visit [facility] [address], [facility] [address] [place] [address] 04/03/2023 Office Visit Cardiology Neri Carrizales PA-C [address] [place] [address] 09/23/2023 Office Visit Cardiology Adam Magallanes MD [address] [place] [address] Health Maintenance Due Date Last Done Comments [...] Additional history exists CKD PHOS USE SMARTSET 61638 03/02/202302/15, 07/04/2021, 09/12/2020, Additional history exists HbA1c 05/29/2023 11/27/2022, 0506/2021, 07/25/2021, Additional history exists DIABETES-EYE EXAM 07/20/2023 07/20/2022, , 07/13/2019, Additional history exists CKD HGB USE SMARTSET 22061 12/18/202312/17, 12/17/2022, 11/27/2022, Additional history exists DXA Scan 12/27/2023 12/26/2021, 05/17, 05/26/2014, Additional history exists DTaP,Tdap,and Td Vaccines (2 - Td or Tdap) 02/01/2025 02/01/2015, 11/20/2007, 09/21/1998 Pneumococcal Vaccine: 65+ Years Completed 08/04/2014, 12/29/2009 Zoster Vaccines Completed 11/14/2018, 10/15, 05/30/2018, Additional history exists VITAMIN D LEVEL ONCE IN A LIFETIME-USE SMARTSET# 30174 Completed 07/04/2021, 09/12/2020, 01/11/2020, Additional history exists [...] and were consensually agreed upon. Care Teams Ram Car Operator Relationship Specialty Start Date End Date Steve Hooker III, MD [address] [place] [address] [place] [address] PCP - General 01/30/1996 documented as of this encounter"
--- OUTSIDE RECORDS SUMMARY | 2023-06-27 02:58 | External Medical Summary ---
Author Name Unknown Address Unknown Organization [id number]:LABORATORY [facility] - [address] [place] [address] Laboratory Report Ordering Provider Test Date Status LOURDES DE GUZMAN 01/14/2023 10:05:00 Final Standing order for pt/inr. < br/>Please draw pt/inr every 1 to 4 weeks as requested
Results to [facility]

Warfarin Therapy
INR: 2.0-3.0 conventional anticoagulation
INR: 2.5-3.5 high intensity anticoagulation Observation Date Value Abnormality Reference (Units ) Status PT 01/14/2023 10:05:00 27.2 Above high normal 11 .6-15.2 (seconds) Final INR 01/14/2023 10:05:00 2.5 Above high normal 0. 8-1.2 Final Performing Location LABORATORY [facility] - [address] [place] [address]
--- OUTSIDE RECORDS SUMMARY | 2023-06-27 02:58 | External Medical Summary ---
Author Name Unknown Address Unknown Organization K01:LABORATORY [facility] - [address] [place] [address] Laboratory Report Ordering Provider Test Date Status LOURDES DE GUZMAN 01/28/2023 11:11:57 Final Standing order for pt/inr. < br/>Please draw pt/inr every 1 to 4 weeks as requested
Results to [facility]

Warfarin Therapy
INR: 2.0-3.0 conventional anticoagulation
INR: 2.5-3.5 high intensity anticoagulation Observation Date Value Abnormality Reference (Units ) Status PT 01/28/2023 11:11:57 33.1 Above high normal 11 .6-15.2 (seconds) Final INR 01/28/2023 11:11:57 3.2 Above high normal 0. 8-1.2 Final Performing Location LABORATORY [facility] - [address] [place] [address]
--- OUTSIDE RECORDS SUMMARY | 2023-06-27 02:58 | External Medical Summary | Summary of Care ---
Author Name Unknown Organization [facility] Address [address] [place] [address] Phone [phone] Care Team Providers Care Wax Cutter Name Role Phone Nhung LOPEZ MD, Steve Langston Primary Care Provider [phone] Reason for Visit * Reason Comments Dosage Adjustment Via Phone (anticoag Cl inic) Encounter Details Date Type Department Care Team Description 01/15/2023 Anticoagulation Pharmacy Call Center [address] [facility] [place] [address] [facility] [address] [place] [address] Atrial fibrillation with RVR ([facility] Allergies Active Allergy Reactions Severity Noted Date Comments Adhesive Tape 07/05/2022 Doxycycline Nausea/vomiting 11/03/2010 Metoclopramide Hcl Neuro complications (Please comment) 12/07/2010 Developed worsening tremor and lip smacking. Naproxen 01/23/2012 Can not tolerate-gets very emotional and depressed documented as of this encounter (statuses as of 01/15/2023) Medications Medication Sig Dispensed Refills Start Date [...] hemoglobin A1c goal of less than 8.0% ([facility]) Use to test once daily DX E11.9 100 Each 3 1 Active Diclofenac Sodium 1 % External Gel Apply topically to affected area once for [address]. [address] GRAM TOPICALLY ON THE SKIN 4 TIMES A DAY TO RIGHT HIP 350 g 3 1 Active Biotin 61988 MCG Oral Tablet Take 1 Tablet by [...] as of this encounter (statuses as of 01/15/2023) Active Problems Problem Noted Date Advanced care [...] 12/22/13 Steve Hooker III, MD [facility] [place] Facet arthropathy, lumbar 10/07/2013 Type 2 diabetes [...] as of this encounter (statuses as of 01/15/2023) Resolved Problems Problem Noted Date Resolved Date [...] as of this encounter (statuses as of 01/15/2023) Immunizations Name Administration Dates Next Due COVID-19 mRNA, LNP-s, No Pre serve, 2-Dose Series (ALENTY) 06/01/2021,10/15/2020,09/24/2020 Covid-19, Mrna, Lnp-s, Pf, B ivalent, [...] of this encounter Progress Notes * SARAI Ramirez - 01/15/2023 10:06 AM EDT Contacts Type Contact Phone/Fax 01/15/2023 10:05 AM EDT Phone (Outgoing) RUFINO BARRIENTOS (Emergency Contact) [phone] Left Message Advised patient to contact Anticoagulation Clinic if any unusual bruising or bleeding, recent illness, changes in medication, or questions/concerns. PT/INR results, Coumadin dose instructions, and next PT/INR date communicated as noted by Pharmacist: Yes SARAI RAMIREZ 01/15/2023, 10:06 AM * Lea Espana RPh - 01/15/2023 8:25 AM EDT Coumadin Clinic (region specific) Current Warfarin Dose As of 01/15/2023 Warfarin maintenance plan: 6 mg (4 mg x 1.5) every Mon, Wed, Fri; 4 mg (4 mg x 1) all other days INR Result As of 01/15/2023 INR goal: 2.0-3.0 INR used for dosin.5 (01/14/2023) Warfarin Plan As of 01/15/2023 Full warfarin instructions: 6 mg every Mon, Wed, Fri; 4 mg all other days No change documented: Lea Espana RPh Next INR check: 01/28/2023 Repeat PT/INR in 2 week(s) Weekly dose: not changed Additional Dosing Information: Description GML - Call Rufino with results/dosing Amiodarone decreased 01/2021 Tech to contact patient with dose instructions as noted. Lea Espana RPh 01/15/2023, 8:25 AM documented in this encounter Plan of Treatment Upcoming Encounters Date Type Specialty Care Team Description 01/23/2023 Home Visit [facility] Fernanda aLne, IMER [address] [facility] [place] [address] 01/28/2023 Laboratory Laboratory Processing [facility], [facility] Mobile Home Draw [address] [place], [place] [id number] 01/29/2023 [facility] [address] [place] [address] 02/15/2023 Telemedicine [facility] Vanessa Cullen CRNP [address] [place] [address] Ruben Trinidad [facility] Metallurgical Specialist [address] [place] [address] 04/03/2023 Office Visit Cardiology Neri Carrizales PA-C [address] [place] [address] 09/23/2023 Office Visit Cardiology Adam Magallanes MD [address] [place] [address] Health Maintenance Due Date Last Done Comments [...] Additional history exists CKD PHOS USE SMARTSET 43230 03/02/202302/15, 07/04/2021, 09/12/2020, Additional history exists HbA1c 05/29/2023 11/27/2022, 10/17, 07/25/2021, Additional history exists DIABETES-EYE EXAM 07/20/2023 07/20/2022, , 07/13/2019, Additional history exists CKD HGB USE SMARTSET 21934 12/18/202312/17, 12/17/2022, 11/27/2022, Additional history exists DXA Scan 12/27/2023 12/26/2021, 05/17, 05/26/2014, Additional history exists DTaP,Tdap,and Td Vaccines (2 - Td or Tdap) 02/01/2025 02/01/2015, 11/20/2007, 09/21/1998 Pneumococcal Vaccine: 65+ Years Completed 08/04/2014, 12/29/2009 Zoster Vaccines Completed 11/14/2018, 10/15, 05/30/2018, Additional history exists VITAMIN D LEVEL ONCE IN A LIFETIME-USE SMARTSET# [id number] Completed 07/04/2021, 09/12/2020, 01/11/2020, Additional history exists [...] and were consensually agreed upon. Care Teams Wax Cutter Relationship Specialty Start Date End Date Steve Hooker III, MD [address] [place] [address] PCP - General 01/30/1996 documented as of this encounter
--- OUTSIDE RECORDS SUMMARY | 2023-06-27 02:59 | External Medical Summary | Summary of Care ---
Author Name Unknown Organization [facility] Address [address] [place] [address] Phone [phone] Care Team Providers Care Customer Sales Distributor Name Role Phone Nhung LOPEZ MD, Steve Langston Primary Care Provider [phone] Reason for Visit * Reason Onset Date Comments Appointment 01/04/2023 Encounter Details Date Type Department Care Team Description 01/04/2023 Telephone [facility] [place] [address] [place], [place] [id number] Services, Scheduling [address] [place] [address] Appointment (//) Allergies Active Allergy Reactions Severity Noted Date Comments Adhesive Tape 07/05/2022 Doxycycline Nausea/vomiting 11/03/2010 Metoclopramide Hcl Neuro complications (Please comment) 12/07/2010 Developed worsening tremor and lip smacking. Naproxen 01/23/2012 Can not tolerate-gets very emotional and depressed documented as of this encounter (statuses as of 01/04/2023) Medications Medication Sig Dispensed Refills Start Date [...] hemoglobin A1c goal of less than 8.0% ([facility]) Use to test once daily DX E11.9 100 Each 3 1 Active Diclofenac Sodium 1 % External Gel Apply topically to affected area once for [address] GRAM TOPICALLY ON THE SKIN 4 TIMES A DAY TO RIGHT HIP 350 g 3 1 Active Biotin 84495 MCG Oral Tablet Take 1 Tablet by [...] mouth in the morning. 0 3 Active oxyCODONE-Acetamino phen 10-325 MG Oral TabletIndications:P ain Take 1 Tablet by mouth every 6 hours as needed for severe pain. 120 Tablet 0 3 Active Torsemide 20 [...] by mouth in the morning. 0 Active documented as of this encounter (statuses as of 01/04/2023) Active Problems Problem Noted Date Advanced care [...] 12/22/13 Steve Hooker III, MD [facility] Facet arthropathy, lumbar 10/07/2013 Type 2 diabetes [...] as of this encounter (statuses as of 01/04/2023) Resolved Problems Problem Noted Date Resolved Date [...] 05/30/2009 Overview: Per Lipid Taxonomy. Polymyalgia rheumatica 01/14/201 3 DEEP PHLEBITIS-LEG NEC 4 BENIGN NEOPLASM LG BOWEL 018 documented as of this encounter (statuses as of 01/04/2023) Immunizations Name Administration Dates Next Due COVID-19 mRNA, LNP-s, No Pre serve, 2-Dose Series ([employer]) 06/01/2021,10/15/2020,09/24/2020 Covid-19, Mrna, Lnp-s, Pf, B ivalent, [...] encounter Miscellaneous Notes * Telephone Encounter - ROSELINE Sanches - 01/04/2023 9:10 AM EDT Request to ayesha Pickard form this appt on 02/15 with K H?arris and I did and entered Jeannine Trinidad as her fill infor same day and time documented in this encounter Plan of Treatment Upcoming Encounters Date Type Specialty Care Team Description 01/08/2023 Home Visit [facility] [address], IMER [address] [facility], [place] [address] 01/08/2023 Laboratory Laboratory Processing [facility] Draw [address] [place] [address] 01/09/2023 [facility] [address] [place] [address] 02/15/2023 Telemedicine [facility] Vanessa Cullen CRNP [address] [place] [address] Ruben Trinidad Community [facility] Skylights Assembler [address] [place] [address] 04/03/2023 Office Visit Cardiology Neri Carrizales PA-C [address] [place] [address] 09/23/2023 Office Visit Cardiology Adam Magallanes MD [address] [place] [address] Health Maintenance Due Date Last Done Comments [...] Additional history exists CKD PHOS USE SMARTSET 34378 03/02/202302/15, 07/04/2021, 09/12/2020, Additional history exists HbA1c 05/29/2023 11/27/2022, 0506/2021, 07/25/2021, Additional history exists DIABETES-EYE EXAM 07/20/2023 07/20/2022, , 07/13/2019, Additional history exists CKD HGB USE SMARTSET 64583 12/18/202312/17, 12/17/2022, 11/27/2022, Additional history exists DXA Scan 12/27/2023 12/26/2021, 05/17, 05/26/2014, Additional history exists DTaP,Tdap,and Td Vaccines (2 - Td or Tdap) 02/01/2025 02/01/2015, 11/20/2007, 09/21/1998 Pneumococcal Vaccine: 65+ Years Completed 08/04/2014, 12/29/2009 Zoster Vaccines Completed 11/14/2018, 10/15, 05/30/2018, Additional history exists VITAMIN D LEVEL ONCE IN A LIFETIME-USE SMARTSET# 53349 Completed 07/04/2021, 09/12/2020, 01/11/2020, Additional history exists [...] were consensually agreed upon. Care Teams Customer Sales Distributor Relationship Specialty Start Date End Date Steve Hooker III, MD [address] [place] [address], [place] [address] PCP - General 01/30/1996 documented as of this encounter
--- OUTSIDE RECORDS SUMMARY | 2023-06-27 02:59 | External Medical Summary | Summary of Care ---
Author Name Unknown Organization [facility] Address [address] [place] [address] Phone [phone] Care Team Providers Care Coating Machine Helper Name Role Phone Nhung LOPEZ MD, Christiano Langston Primary Care Provider [phone] Reason for Visit * Reason Onset Date Comments Medication Refill 01/10/2023 Encounter Details Date Type Department Care Team Description 01/10/2023 Refill [facility] [place] [address] [place] [address] Christiano Harkins III, MD [address] [facility] [place] [address] Pain Allergies Active Allergy Reactions Severity Noted Date Comments Adhesive Tape 07/05/2022 Doxycycline Nausea/vomiting 11/03/2010 Metoclopramide Hcl Neuro complications (Please comment) 12/07/2010 Developed worsening tremor and lip smacking. Naproxen 01/23/2012 Can not tolerate-gets very emotional and depressed documented as of this encounter (statuses as of 01/11/2023) Medications Medication Sig Dispensed Refills Start Date [...] goal of less than 8.0% ([facility]) Use to test once daily DX E11.9 100 Each 3 1 Active Diclofenac Sodium 1 % External Gel Apply topically to affected area once for [address] dose. Apply [address] 4 GRAM TOPICALLY ON THE SKIN 4 TIMES A DAY TO RIGHT HIP 350 g 3 1 Active Biotin 45101 MCG Oral Tablet Take 1 Tablet by [...] as of this encounter (statuses as of 01/11/2023) Active Problems Problem Noted Date Advanced care [...] 12/22/13 Christiano Harkins III, MD [facility] [place] Facet arthropathy, lumbar 10/07/2013 Type 2 diabetes [...] as of this encounter (statuses as of 01/11/2023) Resolved Problems Problem Noted Date Resolved Date [...] as of this encounter (statuses as of 01/11/2023) Immunizations Name Administration Dates Next Due COVID-19 mRNA, LNP-s, No Pre serve, 2-Dose Series ([employer]) 06/01/2021,10/15/2020,09/24/2020 Covid-19, Mrna, Lnp-s, Pf, B ivalent, [...] III----- * Telephone Encounter - Katherine Vides [facility] - 01/11/2023 11:45 AM EDTPending Prescriptions: Disp Refills oxyCODONE-Acetaminophen 10-325 MG Oral Tab*120 Ta*0 Sig: Take 1 Tablet by mouth every 6 hours as needed for Pain, Severe. * Telephone Encounter - Katherine Vides [facility] - 01/11/2023 11:45 AM EDT I have reviewed the patients controlled substance dispensing history in the Prescription Drug Monitoring Program in compliance with the [facility] regulations before prescribing a controlled substance. PDMP checked on 01/11/2023. Pending Prescriptions: Disp Refills oxyCODONE-Acetaminophen 10-325 MG Oral Ta*120 Ta*0 Sig: Take 1 Tablet by mouth every 6 hours as needed for Pain, Severe. Last Visit: 08/21/2022 (in office), 11/21/2022 (telemedicine) Next Visit: Visit date not found Date medication was last filled: 12/10/22 Date medication is due for refill: 01/08/23 [facility] Is this request for a [...] Centralized Clinical Pharmacy Services (CCPS) (Formerly Telepharmacy) [phone] 01/11/2023, 11:45 AM * Telephone Encounter - Brooke Robledo - 01/10/2023 1:12 PM EDT Did you pend patient's preferred pharmacy and medication before forwarding?yes Pharmacy: [facility] Pending Prescriptions: Disp Refills oxyCODONE-Acetaminophen 10-325 [...] Care Team Description 01/14/2023 Laboratory Laboratory [place] [facility] [facility] Mobile Home Draw [address] [place] [address] 01/15/2023 [facility] [address] [place] [address] 01/23/2023 Home Visit [facility] [address] [place] [address] 02/15/2023 Telemedicine [facility] Vanessa Cullen CRNP [address] [place] [address] Ruben Trinidad Community Health Supervisor Jewelry Department [address] [place] [address] 04/03/2023 Office Visit Cardiology Neri Carrizales PA-C [address] [place] [address] 09/23/2023 Office Visit Cardiology Adam Magallanes MD [address] [place] [address] Health Maintenance Due Date Last Done Comments [...] Additional history exists CKD PHOS USE SMARTSET 22497 03/02/202302/15, 07/04/2021, 09/12/2020, Additional history exists HbA1c 05/29/2023 11/27/2022, 0506/2021, 07/25/2021, Additional history exists DIABETES-EYE EXAM 07/20/2023 07/20/2022, , 07/13/2019, Additional history exists CKD HGB USE SMARTSET 86983 12/18/202312/17, 12/17/2022, 11/27/2022, Additional history exists DXA Scan 12/27/2023 12/26/2021, 05/17, 05/26/2014, Additional history exists DTaP,Tdap,and Td Vaccines (2 - Td or Tdap) 02/01/2025 02/01/2015, 11/20/2007, 09/21/1998 Pneumococcal Vaccine: 65+ Years Completed 08/04/2014, 12/29/2009 Zoster Vaccines Completed 11/14/2018, 10/15, 05/30/2018, Additional history exists VITAMIN D LEVEL ONCE IN A LIFETIME-USE SMARTSET# [id number] Completed 07/04/2021, 09/12/2020, 01/11/2020, Additional history exists [...] and were consensually agreed upon. Care Teams Coating Machine Helper Relationship Specialty Start Date End Date Christiano Harkins III, MD [address] [place] [address], [place] [address] PCP - General 01/30/1996 documented as of this encounter
--- OUTSIDE RECORDS SUMMARY | 2023-06-27 02:59 | External Medical Summary | Summary of Care ---
Author Name Unknown Organization [facility] Address [address] [place] [address] Phone [phone] Care Team Providers Care Agricultural Chemist Name Role Phone Nhung LOPEZ MD, Steve Langston Primary Care Provider [phone] Reason for Visit * Reason Onset Date Comments Home Health 01/04/2023 Encounter Details Date Type Department Care Team Description 01/04/2023 Telephone Family Practice [facility] [place] [address] [facility] [address] Steve Hooker III, MD [address] [place] [address] Home Health Allergies Active Allergy Reactions Severity Noted Date [...] HIP 350 g 3 1 Active Biotin 66351 MCG Oral Tablet Take 1 Tablet by [...] Steve Hooker III, MD [facility] [place] Facet arthropathy, lumbar 10/07/2013 Type 2 diabetes [...] mRNA, LNP-s, No Pre serve, 2-Dose Series ([employer]) 06/01/2021,10/15/2020,09/24/2020 Covid-19, Mrna, Lnp-s, Pf, B ivalent, [...] encounter Miscellaneous Notes * Telephone Encounter - Racheal Boo LPN - 01/04/2023 2:31 PM EDT Provider to address: NA . Reason for Call: Home Health Contact: Telephone Call Contact Type: Care Coordination Outcome: Titi Mendez nurse calling to see when patient had her last PT INR done and when the nextdraw is. Informed, no further questions. Total Time including non face to face (minutes): 5 * Telephone Encounter - ROSELINE Wan - 01/04/2023 2:28 PM EDT Reason for patient's call: INR questions Caller was transferred to Racheal at the nurse line. documented in this encounter Plan of Treatment Upcoming Encounters Date Type Specialty Care Team Description 01/08/2023 Home Visit [facility] [address], RN [address] [facility] [place] [address] 01/08/2023 Laboratory Laboratory Processing [facility] Mobile Home Draw [address] [place] [address] 01/09/2023 Anticoagulation Pharmacy Telepharmacy, [facility] [address] [facility] [place] [address] 02/15/2023 Telemedicine [facility] Vanessa Cullen CRNP [address] [facility] [address] Ruben Trinidad Community [facility] Broaching Machine Operator [address] [place] [address] 04/03/2023 Office Visit Cardiology Neri Carrizales PA-C [address] [place] [address] 09/23/2023 Office Visit Cardiology Adam Magallanes MD [address] [place] [address] Health Maintenance Due Date Last Done Comments [...] Additional history exists CKD PHOS USE SMARTSET 31198 03/02/202302/15, 07/04/2021, 09/12/2020, Additional history exists HbA1c 05/29/2023 11/27/2022, 10/17, 07/25/2021, Additional history exists DIABETES-EYE EXAM 07/20/2023 07/20/2022, , 07/13/2019, Additional history exists CKD HGB USE SMARTSET 25971 12/18/202312/17, 12/17/2022, 11/27/2022, Additional history exists DXA Scan 12/27/2023 12/26/2021, 05/17, 05/26/2014, Additional history exists DTaP,Tdap,and Td Vaccines (2 - Td or Tdap) 02/01/2025 02/01/2015, 11/20/2007, 09/21/1998 Pneumococcal Vaccine: 65+ Years Completed 08/04/2014, 12/29/2009 Zoster Vaccines Completed 11/14/2018, 10/15, 05/30/2018, Additional history exists VITAMIN D LEVEL ONCE IN A LIFETIME-USE SMARTSET# 71438 Completed 07/04/2021, 09/12/2020, 01/11/2020, Additional history exists [...] and were consensually agreed upon. Care Teams Agricultural Chemist Relationship Specialty Start Date End Date Steve Hooker III, MD [address] [place] [address] PCP - General 01/30/1996 documented as of this encounter
--- OUTSIDE RECORDS SUMMARY | 2023-06-27 02:59 | External Medical Summary | Summary of Care ---
Author Name Unknown Organization [facility] Address [address] [place] [address] Phone [phone] Care Team Providers Care Investigator Welfare Name Role Phone Nhung LOPEZ MD, Steve Langston Primary Care Provider [phone] Reason for Visit * Reason Onset Date Comments Appointment 01/08/2023 Encounter Details Date Type Department Care Team Description 01/08/2023 Telephone [facility], [facility] [address] [place] [address] Lisa Kim, Community Health Pet Care Worker Appointment Allergies Active Allergy Reactions Severity Noted Date Comments Adhesive Tape 07/05/2022 Doxycycline Nausea/vomiting 11/03/2010 Metoclopramide Hcl Neuro complications (Please comment) 12/07/2010 Developed worsening tremor and lip smacking. Naproxen 01/23/2012 Can not tolerate-gets very emotional and depressed documented as of this encounter (statuses as of 01/08/2023) Medications Medication Sig Dispensed Refills Start Date [...] HIP 350 g 3 1 Active Biotin 97600 MCG Oral Tablet Take 1 Tablet by [...] as of this encounter (statuses as of 01/08/2023) Active Problems Problem Noted Date Advanced care [...] 12/22/13 Steve Hooker III, MD [facility] [place] Facet arthropathy, lumbar 10/07/2013 Type 2 diabetes [...] as of this encounter (statuses as of 01/08/2023) Resolved Problems Problem Noted Date Resolved Date [...] as of this encounter (statuses as of 01/08/2023) Immunizations Name Administration Dates Next Due COVID-19 mRNA, LNP-s, No Pre serve, 2-Dose Series ([employer]) 06/01/2021,10/15/2020,09/24/2020 Covid-19, Mrna, Lnp-s, Pf, B ivalent, [...] encounter Miscellaneous Notes * Telephone Encounter - Mayito [facility] Pet Care Worker - 01/08/2023 8:56 AM EDT Outbound call to daughter to make her aware we needed to schedule appointment, daughter wanted me to call back and leave a voicemail for her as she was driving Left her the voicemail with time and date 01/23/2023 @ 2:00 pm Asked her to call back and confirm appointment is ok Lisa Kim, ROSELINE documented in this encounter Plan of Treatment Upcoming Encounters Date Type Specialty Care Team Description 01/09/2023 [facility] Tele[facility], [facility] [address] [place] [address] 01/10/2023 Laboratory Laboratory Processing [facility] [facility] Mobile Home Draw [address] [place] [address] 01/23/2023 Home Visit [facility] [place] [address] [address] [place] [address] 02/15/2023 Telemedicine [facility] Vanessa Cullen CRNP [address] [place] [address] Ruben Trinidad [facility] Health Pet Care Worker [address] [place] [address] 04/03/2023 Office Visit Cardiology Neri Carrizales PA-C [address] [place] [address] 09/23/2023 Office Visit Cardiology Adam Magallanes MD [address] [place] [address] Health Maintenance Due Date Last Done Comments [...] Additional history exists CKD PHOS USE SMARTSET 13485 03/02/202302/15, 07/04/2021, 09/12/2020, Additional history exists HbA1c 05/29/2023 11/27/2022, 10/17, 07/25/2021, Additional history exists DIABETES-EYE EXAM 07/20/2023 07/20/2022, , 07/13/2019, Additional history exists CKD HGB USE SMARTSET 84900 12/18/202312/17, 12/17/2022, 11/27/2022, Additional history exists DXA Scan 12/27/2023 12/26/2021, 05/17, 05/26/2014, Additional history exists DTaP,Tdap,and Td Vaccines (2 - Td or Tdap) 02/01/2025 02/01/2015, 11/20/2007, 09/21/1998 Pneumococcal Vaccine: 65+ Years Completed 08/04/2014, 12/29/2009 Zoster Vaccines Completed 11/14/2018, 10/15, 05/30/2018, Additional history exists VITAMIN D LEVEL ONCE IN A LIFETIME-USE SMARTSET# 08430 Completed 07/04/2021, 09/12/2020, 01/11/2020, Additional history exists [...] and were consensually agreed upon. Care Teams Investigator Welfare Relationship Specialty Start Date End Date Steve Hooker III, MD [address] [place] [address] PCP - General 01/30/1996 documented as of this encounter
--- OUTSIDE RECORDS SUMMARY | 2023-06-27 02:59 | External Medical Summary | Summary of Care ---
Author Name Unknown Organization [facility] Address [address] [place] [facility] [place] [address] Phone [phone] Care Team Providers Care Inspector Watch Train Name Role Phone Nhung LOPEZ MD, Steve Langston Primary Care Provider [phone] Reason for Visit * Reason Onset Date Comments [facility]: Maintenance 01/03/2023 Encounter Details Date Type Department Care Team Description 01/03/2023 Telephone [facility], [place] [address] [place] [address] [facility], Nurse [facility] [address] [place] [address] [facility]: Maintenance Allergies Active Allergy Reactions Severity Noted Date Comments Adhesive Tape 07/05/2022 Doxycycline Nausea/vomiting 11/03/2010 Metoclopramide Hcl Neuro complications (Please comment) 12/07/2010 Developed worsening tremor and lip smacking. Naproxen 01/23/2012 Can not tolerate-gets very emotional and depressed documented as of this encounter (statuses as of 01/03/2023) Medications Medication Sig Dispensed Refills Start Date [...] hemoglobin A1c goal of less than 8.0% ([facility]) Use to test once daily DX E11.9 100 Each 3 1 Active Diclofenac Sodium 1 % External Gel Apply topically to affected area once for [address] dose. [address] GRAM TOPICALLY ON THE SKIN 4 TIMES A DAY TO RIGHT HIP 350 g 3 1 Active Biotin 51508 MCG Oral Tablet Take 1 Tablet by [...] as of this encounter (statuses as of 01/03/2023) Active Problems Problem Noted Date Advanced care [...] 12/22/13 Steve Hooker III, MD [facility] [place] Facet arthropathy, lumbar 10/07/2013 Type 2 diabetes [...] as of this encounter (statuses as of 01/03/2023) Resolved Problems Problem Noted Date Resolved Date [...] as of this encounter (statuses as of 01/03/2023) Immunizations Name Administration Dates Next Due COVID-19 mRNA, LNP-s, No Pre serve, 2-Dose Series ([employer]) 06/01/2021,10/15/2020,09/24/2020 Covid-19, Mrna, Lnp-s, Pf, B ivalent, [...] Miscellaneous Notes * Telephone Encounter - Bernadette Méndez LPN - 01/03/2023 9:20 AM EDT Images from the original note were not included. [facility] Weight Trigger [facility] Data: Baseline Weight: None Trigger Weight: 172.2 lbs; Spoke to daughter who states weight not accurate on 01/02 They were having issues with power States she is fine Denies any increased SOB, edema or chest pain Taking medications as directed No bowel or bladder issues Encouraged to call with any urgent issue Weight adjusted in [facility] documented in this encounter Plan of Treatment Upcoming Encounters Date Type Specialty Care Team Description 01/08/2023 Home Visit [facility] [address], RN [address] [facility] [address] 01/08/2023 Laboratory Laboratory Processing [facility], [facility] Mobile Home Draw [address] [place] [address] 01/09/2023 [facility] Pharmacy Telepharmacy, [facility] [address] [facility] [address] 02/15/2023 Telemedicine [facility] Vanessa Cullen CRNP [address] [place] [address] Emily Pickard, Community Health Mobile Health Vehicle Operator [address] [place] [address] [place] [address] 04/03/2023 Office Visit Cardiology Neri Carrizales PAElverC [address] [place] [address] 09/23/2023 Office Visit Cardiology Adam Magallanes MD [address] [place] [address] Health Maintenance Due Date Last Done Comments [...] Additional history exists CKD PHOS USE SMARTSET 93585 03/02/202302/15, 07/04/2021, 09/12/2020, Additional history exists HbA1c 05/29/2023 11/27/2022, 10/17, 07/25/2021, Additional history exists DIABETES-EYE EXAM 07/20/2023 07/20/2022, , 07/13/2019, Additional history exists CKD HGB USE SMARTSET 84239 12/18/202312/17, 12/17/2022, 11/27/2022, Additional history exists DXA Scan 12/27/2023 12/26/2021, 05/17, 05/26/2014, Additional history exists DTaP,Tdap,and Td Vaccines (2 - Td or Tdap) 02/01/2025 02/01/2015, 11/20/2007, 09/21/1998 Pneumococcal Vaccine: 65+ Years Completed 08/04/2014, 12/29/2009 Zoster Vaccines Completed 11/14/2018, 10/15, 05/30/2018, Additional history exists VITAMIN D LEVEL ONCE IN A LIFETIME-USE SMARTSET# 15190 Completed 07/04/2021, 09/12/2020, 01/11/2020, Additional history exists [...] and were consensually agreed upon. Care Teams Inspector Watch Train Relationship Specialty Start Date End Date Steve Hooker III, MD [address] [place] [address], [place] [address] PCP - General 01/30/1996 documented as of this encounter
--- NOTE | 2023-06-27 03:58 | CT Scan Report ---
Exam(s): CT ABDOMEN + PELVIS Without Contrast EXAM: CT Abdomen and Pelvis Without Intravenous Contrast CLINICAL HISTORY: abd/back pain, recurrent uti. TECHNIQUE: Axial computed tomography images of the abdomen and pelvis without intravenous contrast. Automated exposure control was utilized for the study. A dose lowering technique was utilized adhering to the principles of ALARA. COMPARISON: CT abdomen and pelvis without contrast dated 06/20/2021 FINDINGS: Lung bases: Patchy opacities in the right lower lobe, new.. ABDOMEN: Liver: Unremarkable. Gallbladder and bile ducts: Cholecystectomy. Common bile duct is prominent measuring 12 cm in diameter. Intrahepatic biliary dilatation is new from the previous examination. No common bile duct stone is seen. Pancreas: Unremarkable. No ductal dilation. Spleen: Unremarkable. No splenomegaly. Adrenals: Unremarkable. No mass. Kidneys and ureters: Interval resolution of the previously noted left perinephric fat stranding. Similar left pelviectasis without calyceal dilatation. Interval increase in size in the previously noted nephrolithiasis in the inferior pole the left kidney, now measuring 9 mm. Punctate nonobstructive nephrolithiasis also noted bilaterally. Right pelviectasis without calyceal dilatation. No ureteral stones. Stomach and bowel: Similar hiatal hernia. No evidence for bowel obstruction. Evaluation of the bowel mucosa is slightly limited without contrast; however, no definite focal asymmetry suggested. At least moderate stool burden. PELVIS: Appendix: The appendix is not clearly delineated. No secondary findings to suggest acute appendicitis. Bladder: Unremarkable. No stones. Reproductive: Unremarkable as visualized. ABDOMEN and PELVIS: Intraperitoneal space: Unremarkable. No free air. No significant fluid collection. Bones/joints: No acute fracture. No dislocation. Soft tissues: Unremarkable. Vasculature: Extensive atherosclerotic calcification aorta, stable. No abdominal aortic aneurysm. Lymph nodes: Unremarkable. No enlarged lymph nodes. IMPRESSION: 1. Interval resolution of the previously noted left perinephric fat stranding. Similar left pelviectasis without calyceal dilatation. Interval increase in size in the previously noted nephrolithiasis in the inferior pole the left kidney, now measuring 9 mm. Punctate nonobstructive nephrolithiasis also noted bilaterally. Right pelviectasis without calyceal dilatation. No ureteral stones. No bladder calcifications. 2. No evidence for bowel obstruction. Evaluation of the bowel mucosa is slightly limited without contrast; however, no definite focal asymmetry suggested. At least moderate stool burden. No free intraperitoneal fluid or pneumoperitoneum. 3. Common bile duct is prominent measuring 12 cm in diameter. Intrahepatic biliary dilatation is new from the previous examination. This is likely related to cholecystectomy; however, please correlate with bilirubin levels. If there is concern for biliary stasis, MRCP or endoscopic evaluation is recommended. 4. Patchy opacities in the right lower lobe, new from the previous exam. This may represent atelectasis; however, right lower lobe pneumonia is not excluded. Electronically signed by: Urbano Miller MD 06/27/23 03:58 AM
[2023-06-27] MEDS ORDERED: GLUCOSE 40% GEL 15 GM TUBE PO PRN (04:47)
[2023-06-27] MEDS ORDERED: CARBOHYDRATES FOR HYPOGLYCEMIA PO PRN (04:47)
[2023-06-27] MEDS ORDERED: DEXTROSE 50% 50 ML SYRINGE IV PRN (04:47)
[2023-06-27] MEDS ORDERED: POLYETHYLENE (MIRALAX) 17 GM PACK PO PRN (04:47)
[2023-06-27] MEDS ORDERED: GLUCAGON FOR INJ 1 MG VIAL SQ PRN (04:47)
[2023-06-27] MEDS ORDERED: GLUCOSE 10 TAB/TUBE PO PRN (04:47)
[2023-06-27] MEDS ORDERED: ACETAMINOPHEN 325 MG TAB PO PRN (04:47)
[2023-06-27] MEDS: PANTOprazole 40 MG TAB PO SCH (05:32)
[2023-06-27] MEDS: INSULIN ASPART PER UNIT CHARGE SC SCH ×2 (05:37→13:45)
[2023-06-27 07:11] LABS: Basophils # (auto) 0.04 K/uL (0.00-0.20); Basophils % (auto) 0.7 %; Eosinophils % (auto) 3.5 %; Hematocrit (blood only) 44.9 % (37.0-47.0); Hemoglobin 15.2 g/dl (12.0-16.0); Immature Granulocytes # (auto) 0.02 K/uL (0.01-0.20); Immature Granulocytes % (auto) 0.4 %; Lymphocytes # (auto) 2.05 K/uL (1.20-3.40); Lymphocytes % (auto) 36.2 %; Mean Corpuscular Hemoglobin 31.7 pg (25.0-34.0); Mean Corpuscular Hgb Conc 33.9 g/dL (32.0-36.0); Mean Corpuscular Volume 93.7 fL (80.0-100.0); Mean Platelet Volume 10.2 fL (9.4-12.4); Monocytes # (auto) 0.49 K/uL (0.11-0.59); Monocytes % (auto) 8.7 %; Neutrophils # (auto) 2.86 K/uL (1.40-6.50); Neutrophils % (auto) 50.5 %; Platelet Count 207 K/uL (130-400); RDW Coefficient of Variation 14.1 % (11.5-14.5); RDW Standard Deviation 48.3 fL (36.4-46.3); Red Blood Count 4.79 M/uL (4.20-5.40); White Blood Count 5.66 K/ul (4.8-10.8)
[2023-06-27 07:32] LABS: BUN Creatinine Ratio 18.4 (10-20); Calcium 9.5 mg/dl (8.6-10.3); Est GFR (Non-African American) 33.6 ml/min; Potassium 3.9 mmol/L (3.5-5.1)
[2023-06-27 07:51] LABS: INR 3.3 (0.9-1.1); Prothrombin Time 33.5 Seconds (9.0-12.0)
[2023-06-27] MEDS: DOCUSATE SODIUM 100 MG CAP PO SCH ×2 (08:55→20:18)
[2023-06-27] MEDS: DULoxetine HCL 60 MG CAP PO SCH (08:56)
[2023-06-27] MEDS: METOPROLOL SUCC 25MG EXT REL TAB PO SCH (08:56)
[2023-06-27] MEDS: levETIRAcetam 500 MG TAB PO SCH ×2 (08:56→20:18)
[2023-06-27] MEDS: ISOSORBIDE MONO EXTENDED REL 30 MG TABCR PO SCH (08:56)
[2023-06-27] MEDS: DICLOFENAC SOD 1% GEL 100 GM TUBE EXT SCH ×4 (09:08→20:18)
--- NOTE | 2023-06-27 12:47 | Electrocardiogram Report ---
Test Reason : Blood Pressure : / mmHG Vent. Rate : 068 BPM Atrial Rate : 064 BPM P-R Int : 000 ms QRS Dur : 164 ms QT Int : 474 ms P-R-T Axes : 000 -85 080 degrees QTc Int : 504 ms Ventricular-paced rhythm Abnormal ECG When compared with ECG of 21-SEP-2022 13:31, Vent. rate has decreased BY 2 BPM Confirmed by Sarthak Dickson ([id number]) on 06/27/2023 12:47:12 PM Referred By: REFERRED SELF Confirmed By:Sarthak Dickson
--- NOTE | 2023-06-27 17:42 | Communication Note ---
Date of Service: June 27, 2023 Pt seen in the early AM. Was AAOx3 (knew name, hospital and location, year and month but was fuzzy on the date). Denied acute concerns. ISS discontinued due to episodes of hypoglycemia Blood and urine cultures pending-follow. Continue Rocephin. PT/OT orders placed. For further details, please see H & P from the same date of service.
[2023-06-27] MEDS: cefTRIAXone SODIUM 2,000 MG in DEXTROSE 5 % MINI-B 50 ML IV SCH (19:02)
[2023-06-27] MEDS: CEROVITE ADV FORMULA TAB PO SCH (20:18)
[2023-06-27] MEDS: ADVANCED PROBIOTIC 1250 MG CAPSULE PO SCH (20:18)
[2023-06-27] MEDS: ATORVASTATIN 40 MG TAB PO SCH (20:18)
[2023-06-27] MEDS: CETIRIZINE HCL 10 MG TABLET PO SCH (20:18)
[2023-06-28] MEDS: PANTOprazole 40 MG TAB PO SCH (05:35)
[2023-06-28 07:19] LABS: Basophils # (auto) 0.02 K/uL (0.00-0.20); Basophils % (auto) 0.3 %; Eosinophils # (auto) 0.24 K/uL (0.00-0.50); Eosinophils % (auto) 3.6 %; Hematocrit (blood only) 43.6 % (37.0-47.0); Hemoglobin 14.2 g/dl (12.0-16.0); Immature Granulocytes # (auto) 0.02 K/uL (0.01-0.20); Immature Granulocytes % (auto) 0.3 %; Lymphocytes # (auto) 2.15 K/uL (1.20-3.40); Lymphocytes % (auto) 32.3 %; Mean Corpuscular Hemoglobin 31.1 pg (25.0-34.0); Mean Corpuscular Hgb Conc 32.6 g/dL (32.0-36.0); Mean Corpuscular Volume 95.6 fL (80.0-100.0); Mean Platelet Volume 10.2 fL (9.4-12.4); Monocytes # (auto) 0.52 K/uL (0.11-0.59); Monocytes % (auto) 7.8 %; Neutrophils # (auto) 3.71 K/uL (1.40-6.50); Neutrophils % (auto) 55.7 %; Platelet Count 211 K/uL (130-400); RDW Coefficient of Variation 14.1 % (11.5-14.5); RDW Standard Deviation 48.9 fL (36.4-46.3); Red Blood Count 4.56 M/uL (4.20-5.40); White Blood Count 6.66 K/ul (4.8-10.8)
[2023-06-28 07:42] LABS: INR 3.3 (0.9-1.1); Prothrombin Time 33.7 Seconds (9.0-12.0)
[2023-06-28 08:07] LABS: BUN Creatinine Ratio 15.9 (10-20); Calcium 9.9 mg/dl (8.6-10.3); Creatinine Clr Calc Pharmacy 26.1 ml/min; Est GFR (African American) 35.9 ml/min; Magnesium 1.9 mg/dl (1.7-2.4); Phosphorus 2.9 mg/dl (2.5-4.9)
[2023-06-28] MEDS: ISOSORBIDE MONO EXTENDED REL 30 MG TABCR PO SCH ×2 (08:25→19:58)
[2023-06-28] MEDS: levETIRAcetam 500 MG TAB PO SCH ×2 (08:25→19:58)
[2023-06-28] MEDS: METOPROLOL SUCC 25MG EXT REL TAB PO SCH (08:26)
[2023-06-28] MEDS: DOCUSATE SODIUM 100 MG CAP PO SCH ×2 (08:27→20:13)
[2023-06-28] MEDS: DULoxetine HCL 60 MG CAP PO SCH ×2 (08:27→19:58)
[2023-06-28] MEDS: DICLOFENAC SOD 1% GEL 100 GM TUBE EXT SCH ×4 (08:29→20:00)
[2023-06-28] MEDS ORDERED: ASPIRIN 81 MG ECTAB PO SCH (09:00)
--- NOTE | 2023-06-28 19:14 | Hospitalist Progress Note ---
Date of Service June 28, 2023 Assessment & Plan (1) Encephalopathy: (2) Acute UTI: (3) HARJEET (acute kidney injury): (4) Acute confusion: (5) DM type 2 (diabetes mellitus, type 2): (6) CAD (coronary artery disease): (7) Dyslipidemia: (8) Seizure-like activity: (9) Chronic diastolic heart failure: Plan Pt is an 88yoF with PMHx significant for chronic diastolic heart failure (EF 60 to 65%, TTE 2019), CAD status post angioplasty, SSS status post PPM on Coumadin, valvular heart disease (mild AR/MR/TR), CVA, hypertension, hyperlipidemia, COPD, GERD, DM 2 diet-controlled, hypothyroidism, CRI (baseline creatinine 1.4-1.5), recurrent UTIs, PMR, seizure disorder, dementia per records, anxiety/mood disorder admitted with concerns for AMS in setting of complicated UTI. Altered Mental Status Delirium on dementia Complicated UTI WBC wnl Secondary to complicated UTI UA suggestive of infection, urine Cx pending Chest XRAY and Head CT unremarkable Abd/pelvis CT with no acute changes, does note atelactasis> possible pneumonia at lung bases Consider a procalcitonin level On IV Rocephin, continue. Narrow based on culture results Pt currently AAOx3 chronic diastolic heart failure EF 60 to 65%, TTE 2019 Appears on the dry side gentle limited fluid rehydration Holding home torsemide Acute on Chronic Kidney Disease Cr 1.55 on admission Was 1 in September 2022 Holding home torsemide as above gentle limited fluid rehydration as above Avoid nephrotoxic meds and contrast as able Otherwise as above hx CAD SSS status post PPM hx of atrial fibrillation on Coumadin and BB INR therapeutic on admission at 2.2, now elevated at 3.3 Holding home coumadin at this time hyperlipidemia Continue statin Rx COPD stable DM 2 diet-controlled well-controlled as of recent hemoglobin A1c of 5.21 November 2022 Holding ISS at this time due to episodes of hypoglycemia Hypoglycemia protocol hypothyroidism euthyroid as of today's TSH Stable seizure disorder stable on regimen PT OT eval once medically stable DVT prophylaxis. Coumadin INR goal between 2 and 3 Full code as per son, Mr. Daniel Diaz. He requests updates from providers through [phone] Admission and Anticipated Discharge Date Admission Date: June 27, 2023 Subjective Pt was upset about not being able to go home. Discussed reasons for staying including culture results, and agreeable to staying. She is AAOx3. States that the dysuria at the end of her stream is improving. Son also called and updated, agreeable with mother staying. Review of Systems Review of Systems: All systems reviewed & are unremarkable except as noted in Subjective Physical Exam Physical Exam: General: Alert, oriented. No acute distress Skin: Areas of erythema on face, bruises noted on skin Psych: Appropriate mood and affect HEENT: NC/AT CV: RRR Resp: Breath sounds clear bilaterally, no increased effort of breathing. Abdomen: Soft, nontender Extremities: edema in lower extremities bilaterally. Results & Data Results & Data Vital Signs (Past 12 Hours) Vital Signs Temp Pulse Pulse Resp BP Pulse Ox O2 Del Method 06/28/23 15:30 36.4 C L 78 20 159/95 H 93 Room Air 06/28/23 11:55 36.5 C 62 18 139/88 97 Room Air 06/28/23 07:30 36.5 C 85 16 166/90 H 95 Room Air 06/28/23 05:38 79 06/28/23 04:18 36.6 C 86 20 136/86 100 Room Air
[2023-06-28] MEDS ORDERED: FAMOTIDINE 20 MG in SYRINGE 3 ML IV ONE (19:24)
[2023-06-28] MEDS ORDERED: oxyCODONE/ACETAMINOPHEN 5mg/325mg TAB PO STA (19:54)
[2023-06-28] MEDS ORDERED: MELATONIN 3 MG TAB PO PRN (19:55)
[2023-06-28] MEDS: ATORVASTATIN 40 MG TAB PO SCH (19:57)
[2023-06-28] MEDS: cefTRIAXone SODIUM 2,000 MG in DEXTROSE 5 % MINI-B 50 ML IV SCH (19:57)
[2023-06-28] MEDS: CETIRIZINE HCL 10 MG TABLET PO SCH (19:58)
[2023-06-28] MEDS: ADVANCED PROBIOTIC 1250 MG CAPSULE PO SCH (19:59)
[2023-06-28] MEDS: CEROVITE ADV FORMULA TAB PO SCH (20:00)
[2023-06-29] MEDS: PANTOprazole 40 MG TAB PO SCH (06:39)
[2023-06-29 06:51] LABS: Basophils # (auto) 0.03 K/uL (0.00-0.20); Basophils % (auto) 0.5 %; Eosinophils # (auto) 0.24 K/uL (0.00-0.50); Eosinophils % (auto) 3.6 %; Hematocrit (blood only) 39.5 % (37.0-47.0); Hemoglobin 13.1 g/dl (12.0-16.0); Immature Granulocytes # (auto) 0.02 K/uL (0.01-0.20); Immature Granulocytes % (auto) 0.3 %; Lymphocytes # (auto) 2.14 K/uL (1.20-3.40); Lymphocytes % (auto) 32.3 %; Mean Corpuscular Hgb Conc 33.2 g/dL (32.0-36.0); Mean Corpuscular Volume 93.6 fL (80.0-100.0); Mean Platelet Volume 10.3 fL (9.4-12.4); Monocytes # (auto) 0.51 K/uL (0.11-0.59); Monocytes % (auto) 7.7 %; Neutrophils # (auto) 3.68 K/uL (1.40-6.50); Neutrophils % (auto) 55.6 %; Platelet Count 215 K/uL (130-400); RDW Coefficient of Variation 13.9 % (11.5-14.5); Red Blood Count 4.22 M/uL (4.20-5.40); White Blood Count 6.62 K/ul (4.8-10.8)
[2023-06-29 07:06] LABS: BUN Creatinine Ratio 18.6 (10-20); Calcium 9.6 mg/dl (8.6-10.3); Creatinine Clr Calc Pharmacy 25.1 ml/min; Est GFR (African American) 34.5 ml/min; Est GFR (Non-African American) 29.8 ml/min; Magnesium 1.8 mg/dl (1.7-2.4); Phosphorus 3.3 mg/dl (2.5-4.9); Potassium 3.7 mmol/L (3.5-5.1)
[2023-06-29 07:16] LABS: Prothrombin Time 21.3 Seconds (9.0-12.0)
[2023-06-29] MEDS ORDERED: SODIUM CHLORIDE 0.9% 1,000 ML IV SCH (08:15)
[2023-06-29] MEDS: DOCUSATE SODIUM 100 MG CAP PO SCH (09:46)
[2023-06-29] MEDS: DICLOFENAC SOD 1% GEL 100 GM TUBE EXT SCH ×2 (09:46→15:01)
[2023-06-29] MEDS: METOPROLOL SUCC 25MG EXT REL TAB PO SCH (09:47)
[2023-06-29] MEDS: levETIRAcetam 500 MG TAB PO SCH (09:47)
[2023-06-29] MEDS ORDERED: NITROFURANTOIN MONOHYDRATE 100 MG CAP PO STA (13:48)
[2023-06-29] MEDS ORDERED: AMOXICILLIN 500 MG CAP PO STA (14:00)
--- NOTE | 2023-06-29 14:14 | Discharge Summary ---
Discharge Summary Date of Service June 29, 2023 Notes For Next Care Provider Please follow up on pt's INR. Was 2.0 on discharge. Please consider nephrology follow up for pt's kidney function. Please ensure resolution of UTI symptoms and stability of mental status. Intrahepatic biliary dilatation noted incidentally on CT abdomen pelvis, pt s/p cholecystectomy. Correlation with bilirubin levels recommended, bilirubin was 0.4 (normal). No concerns at this time but per radiology, "If there is concern for biliary stasis, MRCP or endoscopic evaluation is recommended." Medication Changes From Visit Amoxicillin 500mg BID x 5 days (renally dosed) Admission HPI Per Admitting Provider History obtained from patient, family, and records. Limited history from patient secondary to confusion. Medical history significant for chronic diastolic heart failure (EF 60 to 65%, TTE 2019), CAD status post angioplasty, SSS status post PPM on Coumadin, valvular heart disease (mild AR/MR/TR), CVA, hypertension, hyperlipidemia, COPD, GERD, DM 2 diet-controlled, hypothyroidism, CRI (baseline creatinine 1.4-1.5), recurrent UTIs, PMR, seizure disorder, dementia as per records, anxiety/mood disorder, past tobacco abuse. Last confinement September 2022 for left hip fracture status post surgery and Proteus UTI status post antibiotic Rx. [facility] before transitioning home. Patient noted to be more confused than usual the last few days. Patient with dysuria and transient abdominal and back pain complaints. Patient denies headache, chest pain. Transient SOB as per patient. Does not know why she is in the hospital. Patient brought to ER for evaluation. IV ceftriaxone administered at the ER. Patient mentation much better after antibiotics as per son. 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 Admission Exam Per Admitting Provider GENERAL: Disoriented, no respiratory distress SKIN: Normal color, warm HEENT: [place] palpebral conjunctivae, no ptosis, dry buccal mucosa NECK : Supple, no tenderness CHEST : Decreased breath sounds, no tenderness HEART : RRR, systolic murmur ABDOMEN: Some distention, nontender EXTREMITIES : Minimal LE swelling, no LE tenderness, no other conspicuous deformities noted NEUROLOGIC : Disoriented, no facial asymmetry, gait and stance not assessed Principal Dx & Hospital Course #1 = Principal Diagnosis (1) Encephalopathy: (2) Acute UTI: (3) HARJEET (acute kidney injury): (4) Acute confusion: (5) DM type 2 (diabetes mellitus, type 2): (6) CAD (coronary artery disease): (7) Dyslipidemia: (8) Seizure-like activity: (9) Chronic diastolic heart failure: Plan Pt is an 88yoF with PMHx significant for chronic diastolic heart failure (EF 60 to 65%, TTE 2019), CAD status post angioplasty, SSS status post PPM on Coumadin, valvular heart disease (mild AR/MR/TR), CVA, hypertension, hyperlipidemia, COPD, GERD, DM 2 diet-controlled, hypothyroidism, CRI (baseline creatinine 1.4-1.5), recurrent UTIs, PMR, seizure disorder, dementia per records, anxiety/mood disorder admitted with concerns for AMS in setting of complicated UTI. Altered Mental Status Delirium on dementia Complicated UTI WBC wnl Secondary to complicated UTI UA suggestive of infection, urine Cx grew E faecalis Chest XRAY and Head CT unremarkable Abd/pelvis CT with no acute changes, does note atelectasis> possible pneumonia at lung bases Treated with IV Rocephin, and discharged with 5 days of Amoxicillin (renally dosed) for treatment of E. Faecalis UTI. Pt AAOx3 on discharge PCP followup chronic diastolic heart failure EF 60 to 65%, TTE 2019 Appeared on the dry side gentle limited fluid rehydration Held home torsemide, resume at discharge PCP followup Acute on Chronic Kidney Disease Cr 1.55 on admission Was 1 in September 2022 Held home torsemide as above gentle limited fluid rehydration as above Avoid nephrotoxic meds and contrast as able Medications renally dosed Cr ~1.5 appears to be her new baseline PCP followup,consider nephrology follow up as well hx CAD SSS status post PPM hx of atrial fibrillation on Coumadin and BB INR therapeutic on admission at 2.2 Was elevated during hospitalization to 3.3 and warfarin was held Warfarin resumed on discharge PCP and coumadin clinic followup Intrahepatic biliary dilatation s/p cholecystectomy Noted incidentally on CT abdomen pelvis Correlation with bilirubin levels recommended, bilirubin was 0.4 (normal) No concerns at this time but per radiology, "If there is concern for biliary stasis, MRCP or endoscopic evaluation is recommended." hyperlipidemia Continue statin Rx COPD stable DM 2 diet-controlled well-controlled as of recent hemoglobin A1c of 5.21 November 2022 Holding ISS at this time due to episodes of hypoglycemia Hypoglycemia protocol initiated PCP followup hypothyroidism euthyroid as of TSH while hospitalized Stable seizure disorder stable on regimen, continue Discharge Exam General: Alert, oriented. No acute distress Skin: Areas of erythema on face, bruises noted on skin Psych: Appropriate mood and affect HEENT: NC/AT CV: RRR Resp: Breath sounds clear bilaterally, no increased effort of breathing. Abdomen: Soft, nontender Extremities: edema in lower extremities bilaterally. Updated Medication List Medication Instructions Recorded Confirmed Type albuterol sulfate 90 mcg/actuation 2 puff inhalation QID PRN 08/20/19 06/26/23 History aerosol inhaler (Ventolin HFA) Shortness Of Breath aspirin 81 mg tablet,delayed 81 mg PO 3XWK 08/20/19 06/26/23 History release atorvastatin 40 mg tablet 40 mg PO HS 08/20/19 06/26/23 History diclofenac sodium 1 % topical gel 4 g topical QID 08/20/19 06/26/23 History isosorbide mononitrate 30 mg 30 mg PO QAM 08/20/19 06/26/23 History tablet,extended release 24 hr magnesium oxide 400 mg PO QAM 08/20/19 06/26/23 History omeprazole 20 mg capsule,delayed 20 mg PO DAILYBB 08/20/19 06/26/23 History release potassium chloride 10 mEq 10 meq PO UD 08/20/19 06/26/23 History tablet,extended release(part/cryst) (Klor-Con M) acetaminophen 500 mg tablet 1,000 mg PO Q6H PRN Pain 06/20/21 06/26/23 History (Tylenol Extra Strength) biotin 10,000 mcg capsule 10,000 mcg PO DAILY 06/20/21 06/26/23 History levetiracetam 500 mg tablet 500 mg PO BID 06/20/21 06/26/23 History metoprolol succinate 25 mg 6.25 mg PO DAILY 06/20/21 06/26/23 History tablet,extended release 24 hr multivitamin-ferrous 1 tab PO HS 06/20/21 06/26/23 History fumarate-folic acid 18 mg-400 mcg tablet (Centrum) oxycodone-acetaminophen 10 mg-325 1 tab PO Q6H PRN Severe Pain 06/20/21 06/26/23 History mg tablet (Scale Score 7-10) trazodone 50 mg tablet 25 mg PO HS 06/20/21 06/26/23 History warfarin 4 mg tablet 4 - 6 mg PO DIRECTED 06/20/21 06/26/23 History docusate sodium 100 mg capsule 200 mg PO BID 06/28/22 06/26/23 History duloxetine 60 mg capsule,delayed 60 mg PO QAM 06/28/22 06/26/23 History release L.acidop,casei,lactis,rham-B.lact,trisha 1 cap PO HS 06/26/23 06/26/23 History 625 mg (10 billion cell) capsule (Advanced Probiotic) cetirizine 10 mg tablet (Zyrtec) 10 mg PO HS 06/26/23 06/26/23 History cholecalciferol (vitamin D3) 50 50 mcg PO DAILY 06/26/23 06/26/23 History mcg (2,000 unit) capsule (Vitamin D3) polyethylene glycol 3350 17 17 g PO DAILY PRN Constipation 06/26/23 06/26/23 History gram/dose oral powder (Miralax) simethicone 80 mg chewable tablet 80 mg PO Q8H PRN GAS DISCOMFORT 06/26/23 06/26/23 History torsemide 20 mg tablet 20 mg PO BID 06/26/23 06/26/23 History amoxicillin 500 mg tablet 500 mg PO BID #10 tabs 06/29/23 Rx Hospital Stay Data Consultations 06/26/23 19:38 ED Decision to Admit Stat Diagnostic Imagining Performed 06/26/23 18:12 CT head/brain wo con Stat 06/27/23 01:59 CT abd pelvis wo con Stat Chest X-Ray 06/26/23 18:12 XR chest 1V portable CLINICAL HISTORY: weakness COMPARISON STUDY: Chest radiograph September 21, 2022. FINDINGS: Lung volumes are normal. Lungs are clear. There is no pneumothorax or pleural effusion. Cardiac size is stable. Left subclavian pacer is in place. Mediastinal contours are normal. There is no evidence for pulmonary edema. Old left-sided rib fractures are incidentally noted. IMPRESSION: No acute cardiopulmonary findings. ACT 112: Negative or not required by law. Electronically signed by: Hardik Fernandez M.D. 06/26/2023 6:[address] 06/26/23 18:12 CT OF THE HEAD WITHOUT CONTRAST CLINICAL HISTORY: Confusion. COMPARISON STUDY: MRI of the brain June 12, 2020. Head CT September 18, 2022. CT DOSE: 547.75 mGy.cm TECHNIQUE: Helical axial images of the head were obtained without IV contrast. Automated exposure control was utilized for the study. A dose lowering technique was utilized adhering to the principles of ALARA. FINDINGS: No acute intracranial hemorrhage, midline shift or mass effect is present. The ventricular system is stable. White matter hypodensities are unchanged and favor small vessel disease. The basal cisterns are patent. No extra-axial collections are present. There are no findings to suggest acute dural sinus thrombosis or acute territorial infarct. No calvarial fractures are identified IMPRESSION: No acute intracranial findings. ACT 112: Negative or not required by law. Electronically signed by: Hardik Fernandez M.D. 06/26/2023 7:35 PM Abdomen/Pelvis CT 06/27/23 01:59 Exam(s): CT ABDOMEN + PELVIS Without Contrast EXAM: CT Abdomen and Pelvis Without Intravenous Contrast CLINICAL HISTORY: abd/back pain, recurrent uti. TECHNIQUE: Axial computed tomography images of the abdomen and pelvis without intravenous contrast. Automated exposure control was utilized for the study. A dose lowering technique was utilized adhering to the principles of ALARA. COMPARISON: CT abdomen and pelvis without contrast dated 06/20/2021 FINDINGS: Lung bases: Patchy opacities in the right lower lobe, new.. ABDOMEN: Liver: Unremarkable. Gallbladder and bile ducts: Cholecystectomy. Common bile duct is prominent measuring 12 cm in diameter. Intrahepatic biliary dilatation is new from the previous examination. No common bile duct stone is seen. Pancreas: Unremarkable. No ductal dilation. Spleen: Unremarkable. No splenomegaly. Adrenals: Unremarkable. No mass. Kidneys and ureters: Interval resolution of the previously noted left perinephric fat stranding. Similar left pelviectasis without calyceal dilatation. Interval increase in size in the previously noted nephrolithiasis in the inferior pole the left kidney, now measuring 9 mm. Punctate nonobstructive nephrolithiasis also noted bilaterally. Right pelviectasis without calyceal dilatation. No ureteral stones. Stomach and bowel: Similar hiatal hernia. No evidence for bowel obstruction. Evaluation of the bowel mucosa is slightly limited without contrast; however, no definite focal asymmetry suggested. At least moderate stool burden. PELVIS: Appendix: The appendix is not clearly delineated. No secondary findings to suggest acute appendicitis. Bladder: Unremarkable. No stones. Reproductive: Unremarkable as visualized. ABDOMEN and PELVIS: Intraperitoneal space: Unremarkable. No free air. No significant fluid collection. Bones/joints: No acute fracture. No dislocation. Soft tissues: Unremarkable. Vasculature: Extensive atherosclerotic calcification aorta, stable. No abdominal aortic aneurysm. Lymph nodes: Unremarkable. No enlarged lymph nodes. IMPRESSION: 1. Interval resolution of the previously noted left perinephric fat stranding. Similar left pelviectasis without calyceal dilatation. Interval increase in size in the previously noted nephrolithiasis in the inferior pole the left kidney, now measuring 9 mm. Punctate nonobstructive nephrolithiasis also noted bilaterally. Right pelviectasis without calyceal dilatation. No ureteral stones. No bladder calcifications. 2. No evidence for bowel obstruction. Evaluation of the bowel mucosa is slightly limited without contrast; however, no definite focal asymmetry suggested. At least moderate stool burden. No free intraperitoneal fluid or pneumoperitoneum. 3. Common bile duct is prominent measuring 12 cm in diameter. Intrahepatic biliary dilatation is new from the previous examination. This is likely related to cholecystectomy; however, please correlate with bilirubin levels. If there is concern for biliary stasis, MRCP or endoscopic evaluation is recommended. 4. Patchy opacities in the right lower lobe, new from the previous exam. This may represent atelectasis; however, right lower lobe pneumonia is not excluded. Electronically signed by: Urbano Miller MD 06/27/23 03:58 AM Discharge Instructions Given to Patient (Per Discharging Provider) Ms. Angel, You were admitted with confusion in the setting of a urinary tract infection. We are discharging you with 5 more days of the antibiotic amoxicillin to be taken twice a day. Your INR is 2.0 on the day of discharge, please resume your home warfarin on discharge. Please keep close follow up with the coumadin clinic and your primary care provider after discharge for continued monitoring. Please do not hesitate to come back to the emergency room should your symptoms return or worsen. It was a pleasure taking care of you while you were here. Total Time Total Time Spent Total Time Spent (In Minutes): > 30 minutes
== END 2023-06-29 16:53 | disposition home health service (06) | DRG 690 ==
LOC: ED 17:50 → EDINP 06-27 02:06 → SUATTDRO 06-27 02:06 → 2N 06-27 04:47
DX: M35.3 Polymyalgia rheumatica; E11.649 Type 2 diabetes mellitus with hypoglycemia without coma; E11.22 Type 2 diabetes mellitus with diabetic chronic kidney disease; Z87.891 Personal history of nicotine dependence; R41.0 Disorientation, unspecified; G40.909 Epilepsy, unspecified, not intractable, without status epilepticus; K21.9 Gastro-esophageal reflux disease without esophagitis; N39.0 Urinary tract infection, site not specified; E03.9 Hypothyroidism, unspecified; N18.30 Chronic kidney disease, stage 3 unspecified; E86.0 Dehydration; Z79.82 Long term (current) use of aspirin; Z79.01 Long term (current) use of anticoagulants; F03.90 Unspecified dementia, unspecified severity, without behavioral disturbance, psychotic disturbance, mood disturbance, and anxiety; N17.9 Acute kidney failure, unspecified; Z91.048 Other nonmedicinal substance allergy status; Z88.6 Allergy status to analgesic agent; I50.32 Chronic diastolic (congestive) heart failure; I13.0 Hypertensive heart and chronic kidney disease with heart failure and stage 1 through stage 4 chronic kidney disease, or unspecified chronic kidney disease; E78.5 Hyperlipidemia, unspecified; Z88.8 Allergy status to other drugs, medicaments and biological substances; G93.40 Encephalopathy, unspecified; Z95.5 Presence of coronary angioplasty implant and graft; Z79.899 Other long term (current) drug therapy; I25.10 Atherosclerotic heart disease of native coronary artery without angina pectoris

== ENCOUNTER 2024-10-05 17:01 | Inpatient (IN) ==
--- NOTE | 2024-10-05 18:12 | Emergency Department Note ---
Impression & Plan Generalized weakness, Acute kidney injury superimposed on chronic kidney disease, Acute confusion, Acute UTI (urinary tract infection) ED Provider Note HISTORY OF PRESENT ILLNESS: Patient is an 89-year-old female presenting with confusion and generalized weakness. Son reports that the patient has been progressively weaker and weaker over the last few days. He reports that today with occupational and physical therapy came to her house, she was too confused and too weak to participate in therapy. He states the patient was recently treated for urinary tract infection with outpatient antibiotics. Reports her last dose of antibiotics was 2 days ago. Reports that the patient's urine is still foul-smelling and they did an at-home urine test that showed concern for infection. Patient reports she feels like she is confused and sometimes gets confused as to what is going on. Denies any abdominal pain. No reported fevers. Denies any chest pain or shortness of breath. Son expresses concern about the patient's safety at home and they are requesting that the patient be admitted for PT/OT assessment and potential rehab placement. No reported falls or recent head injuries. Patient denies any numbness, tingling or focal weakness in extremities. Patient is on Coumadin. ROS: as above PHYSICAL EXAM: Constitutional: Patient appears in no acute distress. HENT: Head: Normocephalic and atraumatic. Eyes: EOMI, PERRL Mouth/Throat: Mucous membranes moist. Neck: Trachea midline. Neck supple. Cardiovascular: Paced rhythm. No murmurs, rubs or gallops. Intact distal pulses. Pulmonary/Chest: No respiratory distress. Breath sounds clear and equal bilaterally. No wheezes or rales. Abdominal: Abdomen soft, no tenderness, rebound or guarding. Musculoskeletal: No edema, tenderness or deformity noted. Skin: Warm and dry. No rash, erythema, pallor or cyanosis Psychiatric: Appropriate mood and affect for situation. Neurological: Alert and keenly responsive. CN II-XII grossly intact, moving all extremities equally and fully. MDM: - Vitals signs stable. - History obtained via patient and patient's son, given patient's confusion. History as above. - Chronic conditions affecting care: CAD (s/p PCI); DM-2; HLD; HTN; CHF; polymyalgia rheumatica - Differential diagnoses include, but are not limited to: UTI; pneumonia; viral syndrome; ACS; electrolyte abnormality; CVA; intracranial hemorrhage - Order placed for continuous cardiac monitoring. At this time, monitor showed rate of 83 bpm with paced rhythm, per my interpretation. - External medical records reviewed. Discharge summary dated 06/29/2023 was reviewed. Patient was admitted that time for acute encephalopathy secondary to UTI. Urine cultures from previous visits in the emergency department have been reviewed. Patient grew Enterococcus faecalis on 06/26/2023. She grew Citrobacter in 2022 and Proteus in 2022. The Enterococcus that grew on most recent culture was pansensitive except for tetracycline. - EKG image interpreted by myself showed ventricular paced rhythm. Rate 61 bpm. - Laboratory workup interpreted by myself showed normal WBC; stable electrolytes; HARJEET on CKD (Cr 1.88 - baseline around 1.5); normal troponin; subtherapeutic INR (1.4) - CXR image reviewed by myself is negative for pneumonia, per my interpretation. - CT head wo contrast negative for intracranial hemorrhage, per my interpretation. - UA showed evidence of infection. Patient given 2 g IV Rocephin. - Patient given 1L NS in ER for HARJEET. - Discussion was had with special education case manager about patient's case and need for admission - Hospitalist, Dr. Hensley, consulted for admission - Patient admitted to [facility] for further evaluation and management. ASSESSMENT AND PLAN: Diagnosis: generalized weakness; acute confusion; HARJEET on CKD; acute UTI Plan: admit Past Med/Surg History Problem List (Updated 10/05/24 @ 19:41 by Katherine Nguyễn MD) Acute UTI (urinary tract infection) (Acute) Acute confusion (Acute) Acute kidney injury superimposed on chronic kidney disease (Acute) Generalized weakness (Acute) Encephalopathy Dehydration (Acute) Acute UTI (Acute) HARJEET (acute kidney injury) (Acute) Acute confusion (Acute) Localized osteoarthritis of left knee Knee injury Urinary tract infection due to Proteus Chronic atrial fibrillation Preop cardiovascular exam Closed intertrochanteric fracture of left femur CKD (chronic kidney disease), stage III Chronic diastolic heart failure Abnormal finding on urinalysis Fall (Acute) Hematuria Weakness (Acute) Need for physical therapy assessment (Acute) Weakness (Acute) Chronic pain CVA (cerebral vascular accident) Warfarin therapy started Anticoagulated (Acute) Seizure-like activity (Acute) Status post placement of cardiac pacemaker Paroxysmal atrial fibrillation Acute kidney injury superimposed on CKD (Acute) Polymyalgia rheumatica (Chronic) 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Acute) Symptomatic bradycardia (Acute) Diastolic CHF (Chronic) Hypomagnesemia (Chronic) HTN (hypertension) (Chronic) Chronic back pain (Chronic) GERD (gastroesophageal reflux disease) (Chronic) CKD stage 3 due to type 1 diabetes mellitus (Chronic) DM type 2 (diabetes mellitus, type 2) (Chronic) Dyslipidemia (Chronic) CAD (coronary artery disease) (Chronic) "1996 - PTCA to RCA 2011 - cath that showed patent RCA and no further disease" Medical History History of nephrolithiasis Surgical History S/P hysterectomy S/P appendectomy S/P cholecystectomy History of lithotripsy History of cystoscopy History of PTCA Family History Aunt Breast cancer Mother Diabetes Coronary heart disease Father Silicosis Social History Smoking Status: Former smoker Tobacco Type: Cigarettes packs per day: 0.5; Second Hand Exposure: No; Do You Dip or Chew Tobacco: No; Hx Alcohol Use: No Hx Substance Use: No Preferred Language: Uzbek Communication Ability: Effective Visual Impairment: Partially Limited Ear Flap Binder Required: No Beliefs That Will Affect Care: None marital status: / Current Living Situation: Alone Current Living Situation Comment: Daugher/son staying with her Feels Safe at Home: Yes Assistive Devices: Walker Allergies Allergies Allergy/AdvReac Type Severity Reaction Status Date / Time metoclopramide Allergy Intermediate neuro Verified 06/26/23 18:42 complications adhesive Allergy Unknown ALLERGY TO Verified 06/26/23 18:42 TAPE doxycycline AdvReac Intermediate NAUSEA/VOMI Verified 06/26/23 18:42 TING naproxen [From Naprosyn] AdvReac Intermediate CAN'T Verified 06/26/23 18:42 TOLERATE, DEPRESSED, EMOTIONAL Home Meds Home Medications Medication Instructions Recorded Confirmed albuterol sulfate 90 mcg/actuation 2 puff inhalation QID PRN 08/20/19 06/26/23 aerosol inhaler (Ventolin HFA) Shortness Of Breath aspirin 81 mg tablet,delayed 81 mg PO 3XWK 08/20/19 06/26/23 release atorvastatin 40 mg tablet 40 mg PO HS 08/20/19 06/26/23 diclofenac sodium 1 % topical gel 4 g topical QID 08/20/19 06/26/23 isosorbide mononitrate 30 mg 30 mg PO QAM 08/20/19 06/26/23 tablet,extended release 24 hr magnesium oxide 400 mg PO QAM 08/20/19 06/26/23 omeprazole 20 mg capsule,delayed 20 mg PO DAILYBB 08/20/19 06/26/23 release potassium chloride 10 mEq 10 meq PO UD 08/20/19 06/26/23 tablet,extended release(part/cryst) (Klor-Con M) acetaminophen 500 mg tablet 1,000 mg PO Q6H PRN Pain 06/20/21 06/26/23 (Tylenol Extra Strength) biotin 10,000 mcg capsule 10,000 mcg PO DAILY 06/20/21 06/26/23 levetiracetam 500 mg tablet 500 mg PO BID 06/20/21 06/26/23 metoprolol succinate 25 mg 6.25 mg PO DAILY 06/20/21 06/26/23 tablet,extended release 24 hr multivitamin-ferrous 1 tab PO HS 06/20/21 06/26/23 fumarate-folic acid 18 mg-400 mcg tablet (Centrum) oxycodone-acetaminophen 10 mg-325 1 tab PO Q6H PRN Severe Pain 06/20/21 06/26/23 mg tablet (Scale Score 7-10) trazodone 50 mg tablet 25 mg PO HS 06/20/21 06/26/23 warfarin 4 mg tablet 4 - 6 mg PO DIRECTED 06/20/21 06/26/23 docusate sodium 100 mg capsule 200 mg PO BID 06/28/22 06/26/23 duloxetine 60 mg capsule,delayed 60 mg PO QAM 06/28/22 06/26/23 release L.acidop,casei,lactis,rham-B.lact,trisha 1 cap PO HS 06/26/23 06/26/23 625 mg (10 billion cell) capsule (Advanced Probiotic) cetirizine 10 mg tablet (Zyrtec) 10 mg PO HS 06/26/23 06/26/23 cholecalciferol (vitamin D3) 50 50 mcg PO DAILY 06/26/23 06/26/23 mcg (2,000 unit) capsule (Vitamin D3) polyethylene glycol 3350 17 17 g PO DAILY PRN Constipation 06/26/23 06/26/23 gram/dose oral powder (Miralax) simethicone 80 mg chewable tablet 80 mg PO Q8H PRN GAS DISCOMFORT 06/26/23 06/26/23 torsemide 20 mg tablet 20 mg PO BID 06/26/23 06/26/23 Previous Rx's Medication Instructions Recorded amoxicillin 500 mg tablet 500 mg PO BID #10 tabs 06/29/23 Results & Data (ED) Vital Signs Vital Signs - 24 hr 10/05/24 17:02 10/05/24 18:11 10/05/24 18:31 Temperature 36.7 C Temperature Source Temporal Artery Scan Pulse Rate 83 61 Pulse Rate [Apical] 60 Pulse Rhythm [Apical] Regular Pulse Strength [Apical] Normal Respiratory Rate 18 18 Respiratory Effort / Characteristics Non-Labored Spontaneous Non-Labored Spontaneous Respiratory Depth Normal Normal Respiratory Pattern Regular Regular Blood Pressure 122/81 Blood Pressure [Right Arm] 137/89 Blood Pressure Mean 94 Blood Pressure Mean [Right Arm] 105 Blood Pressure Position Sitting Blood Pressure Position [Right Arm] Lying Pulse Oximetry 99 98 Oxygen Delivery Method Room Air Room Air Sepsis Recent Fever Within 48 Hours No Sepsis New/Unexplained Change in Mental Status N/A Sepsis Action Taken by Nursing No Action Required 10/05/24 18:31 Temperature Temperature Source Pulse Rate Pulse Rate [Apical] Pulse Rhythm [Apical] Pulse Strength [Apical] Respiratory Rate Respiratory Effort / Characteristics Respiratory Depth Respiratory Pattern Blood Pressure Blood Pressure [Right Arm] Blood Pressure Mean Blood Pressure Mean [Right Arm] Blood Pressure Position Blood Pressure Position [Right Arm] Pulse Oximetry 98 Oxygen Delivery Method Room Air Sepsis Recent Fever Within 48 Hours Sepsis New/Unexplained Change in Mental Status Sepsis Action Taken by Nursing Laboratory Data 10/05/24 18:29 10/05/24 18:29 Lab Results 10/05/24 10/05/24 Range/Units 18:29 18:54 WBC 7.09 (4.8-10.8) K/ul RBC 4.65 (4.20-5.40) M/uL Hgb 13.8 (12.0-16.0) g/dl Hct 42.4 (37.0-47.0) % MCV 91.2 (80.0-100.0) fL MCH 29.7 (25.0-34.0) pg MCHC 32.5 (32.0-36.0) g/dL RDW Std Deviation 47.6 H (36.4-46.3) fL RDW Coeff of Tab 14.3 (11.5-14.5) % Plt Count 190 (130-400) K/uL MPV 11.0 (9.4-12.4) fL Immature Gran % (Auto) 0.1 % Neut % (Auto) 62.7 % Lymph % (Auto) 26.2 % [place] % (Auto) 6.6 % Eos % (Auto) 4.1 % Baso % (Auto) 0.3 % Neut # (Auto) 4.44 (1.40-6.50) K/uL Lymph # (Auto) 1.86 (1.20-3.40) K/uL [place] # (Auto) 0.47 (0.11-0.59) K/uL Eos # (Auto) 0.29 (0.00-0.50) K/uL Baso # (Auto) 0.02 (0.00-0.20) K/uL Immature Gran # (Auto) 0.01 (0.01-0.20) K/uL PT 15.1 H (9.0-12.0) Seconds INR 1.4 H (0.9-1.1) Sodium 138 (136-145) mmol/L Potassium 4.5 (3.5-5.1) mmol/L Chloride 102 (98-107) mmol/L Carbon Dioxide 34 H (21-32) mmol/L Anion Gap 2 L (3-11) BUN 32 H (6-23) mg/dl Creatinine 1.88 H (0.6-1.2) mg/dl Est Cr Clr Drug Dosing 21.1 ml/min eGFR 25.56 BUN/Creatinine Ratio 17.0 (10-20) Glucose 171 H (70-99(Fasting)) mg/dl Calcium 10.3 (8.6-10.3) mg/dl Total Bilirubin 0.5 (0.2-1.0) mg/dl AST 21 (13-39) U/L ALT 15 (7-52) U/L Alkaline Phosphatase 116 H (34-104) U/L Troponin I High Sens 3.6 (0-14) pg/ml Total Protein 6.3 (6.0-8.3) gm/dl Albumin 3.9 (3.4-5.0) gm/dl Globulin 2.4 L (2.5-4.0) gm/dl Albumin/Globulin Ratio 1.6 (0.9-2) Lipase 28 (11-82) U/L Urine Color Yellow Urine Appearance Slightly Cloudy (Clear) Urine pH 6.0 (4.5-7.5) Ur Specific [place] 1.015 (1.000-1.030) Urine Protein 1+ H (Negative) Urine Glucose (UA) Negative (Negative) Urine Ketones Negative (Negative) Urine Blood 2+ H (Negative) Urine Nitrite Negative (Negative) Urine Bilirubin Negative (Negative) Urine Urobilinogen Negative (Negative) Ur Leukocyte Esterase 1+ H (Negative) Urine RBC 6-10 H (0-2) /hpf Urine WBC >50 H (0-5) /hpf Ur Epithelial Cells 0-2 (0-2) /hpf Urine Bacteria 1+ H (None Seen) Administered Medications Sodium Chloride (Nss) 1,000 mls @ 999 mls/hr IV .Q1H1M ONE Stop: 10/05/24 20:17 Last Admin: 10/05/24 19:26 Dose: 999 mls/hr Documented By: ALEJANDRA Discharge Plan Visit Data Chief Complaint: Urinary Symptoms Stated Complaint: UTI ED Provider: Katherine Nguyễn Discharge Problem: Generalized weakness, Acute kidney injury superimposed on chronic kidney disease, Acute confusion, Acute UTI (urinary tract infection) Forms Stand Alone Forms: [facility] Prescriptions Prescriptions: No Action atorvastatin 40 mg tablet 40 mg PO HS isosorbide mononitrate 30 mg tablet extended release 24 hr 30 mg PO QAM aspirin 81 mg Tablet,Delayed Release (Dr/Ec) 81 mg PO 3XWK Rx Instructions: TAKE THIS MEDICATION EVERY SATURDAY,SATURDAY AND SATURDAY omeprazole 20 mg capsule,delayed release(DR/EC) 20 mg PO DAILYBB albuterol sulfate [Ventolin HFA] 90 mcg/actuation HFA aerosol inhaler 2 puff inhalation QID PRN (Reason: Shortness Of Breath) potassium chloride [Klor-Con M10] 10 mEq tablet,ER particles/crystals 10 meq PO UD Rx Instructions: TAKE WHEN TAKING FUROSEMIDE, TAKE AN ADDITIONAL TABLET WHEN TAKING ADDITIONAL FUROSEMIDE diclofenac sodium 1 % gel 4 g TOPICAL QID Rx Instructions: APPLY DIRECTED TO RIGHT HIP magnesium oxide 400 mg magnesium Tablet 400 mg PO QAM duloxetine 60 mg capsule,delayed release(DR/EC) 60 mg PO QAM docusate sodium 100 mg Capsule 200 mg PO BID trazodone 50 mg tablet 25 mg PO HS levetiracetam 500 mg tablet 500 mg PO BID acetaminophen [Tylenol Extra Strength] 500 mg Tablet 1,000 mg PO Q6H PRN (Reason: Pain) warfarin 4 mg Tablet 4 - 6 mg PO DIRECTED oxycodone-acetaminophen 10-325 mg Tablet 1 tab PO Q6H PRN (Reason: Severe Pain (Scale Score 7-10)) biotin 10,000 mcg Capsule 10,000 mcg PO DAILY metoprolol succinate 25 mg tablet extended release 24 hr 6.25 mg PO DAILY Centrum 18-400 mg-mcg Tablet 1 tab PO HS torsemide 20 mg tablet 20 mg PO BID cetirizine [Zyrtec] 10 mg Tablet 10 mg PO HS polyethylene glycol 3350 [Miralax] 17 gram/dose Powder 17 g PO DAILY PRN (Reason: Constipation) simethicone 80 mg Tablet,Chewable 80 mg PO Q8H PRN (Reason: GAS DISCOMFORT) cholecalciferol (vitamin D3) [Vitamin D3] 50 mcg (2,000 unit) Capsule 50 mcg PO DAILY Advanced Probiotic 625 mg (10 billion cell) capsule 1 cap PO HS amoxicillin 500 mg tablet 500 mg PO BID Qty: 10 0RF Referrals Referrals: Steve Hooker MD [Primary Care Provider] -
[2024-10-05 18:48] LABS: Basophils # (auto) 0.02 K/uL (0.00-0.20); Basophils % (auto) 0.3 %; Eosinophils # (auto) 0.29 K/uL (0.00-0.50); Eosinophils % (auto) 4.1 %; Hematocrit (blood only) 42.4 % (37.0-47.0); Hemoglobin 13.8 g/dl (12.0-16.0); Immature Granulocytes # (auto) 0.01 K/uL (0.01-0.20); Immature Granulocytes % (auto) 0.1 %; Lymphocytes # (auto) 1.86 K/uL (1.20-3.40); Lymphocytes % (auto) 26.2 %; Mean Corpuscular Hemoglobin 29.7 pg (25.0-34.0); Mean Corpuscular Hgb Conc 32.5 g/dL (32.0-36.0); Mean Corpuscular Volume 91.2 fL (80.0-100.0); Monocytes # (auto) 0.47 K/uL (0.11-0.59); Monocytes % (auto) 6.6 %; Neutrophils # (auto) 4.44 K/uL (1.40-6.50); Neutrophils % (auto) 62.7 %; Platelet Count 190 K/uL (130-400); RDW Coefficient of Variation 14.3 % (11.5-14.5); RDW Standard Deviation 47.6 fL (36.4-46.3); Red Blood Count 4.65 M/uL (4.20-5.40); White Blood Count 7.09 K/ul (4.8-10.8)
[2024-10-05 18:59] LABS: Albumin Globulin Ratio 1.6 (0.9-2); Albumin Level 3.9 gm/dl (3.4-5.0); Bilirubin,Total 0.5 mg/dl (0.2-1.0); Calcium 10.3 mg/dl (8.6-10.3); Creatinine Clr Calc Pharmacy 21.1 ml/min; Globulin 2.4 gm/dl (2.5-4.0); Potassium 4.5 mmol/L (3.5-5.1); Total Protein 6.3 gm/dl (6.0-8.3)
[2024-10-05 19:06] LABS: Troponin I High Sensitivity 3.6 pg/ml (0-14)
[2024-10-05 19:11] LABS: INR 1.4 (0.9-1.1); Prothrombin Time 15.1 Seconds (9.0-12.0)
[2024-10-05 19:13] LABS: Appearance Urine Slightly Cloudy (Clear); Bilirubin Urine Negative (Negative); Blood Urine 2+ (Negative); Color Urine Yellow; Glucose Urine UA Negative (Negative); Ketones Urine Negative (Negative); Leukocyte Esterase Urine 1+ (Negative); Nitrite Urine Negative (Negative); Protein Urine 1+ (Negative); Specific Gravity Urine 1.015 (1.000-1.030); Urobilinogen Urine Negative (Negative)
[2024-10-05 19:25] LABS: Epithelial Cell Urine 0-2 /hpf (0-2)
[2024-10-05 19:26] LABS: Bacteria Urine 1+ (None Seen); WBC Urine >50 /hpf (0-5)
[2024-10-05] MEDS: SODIUM CHLORIDE 0.9% 1,000 ML IV ONE (19:26)
[2024-10-05] MEDS: cefTRIAXone SODIUM 2,000 MG/50 ML BAG IV STA (19:41)
--- NOTE | 2024-10-05 19:46 | XRay Report ---
EXAM: XR chest 1V portable CLINICAL HISTORY: weakness TECHNIQUE: An X-ray image of the chest is obtained in PA projection. COMPARISON: 06/26/2023 CR FINDINGS: Pulmonary Parenchyma: Bilateral exaggerated bronchovascular markings with prominent pulmonary interstitium. No evidence of pleural effusion or pleural thickening. Heart and Mediastinum: Heart size and shape are normal. No mediastinal widening or masses. No hilar or mediastinal lymphadenopathy. Bony Thorax: Bony thorax appears intact without fractures or deformities. Soft Tissues: Soft tissues overlying the chest wall are unremarkable. A pacemaker is noted IMPRESSION: 1. Bilateral exaggerated bronchovascular markings with prominent pulmonary interstitium. 2. A pacemaker is noted 3. No interval changes detected. Electronically signed by Fili Red 10-05-2024 7:45 PM
--- NOTE | 2024-10-05 20:08 | History & Physical Report ---
Date of Service October 05, 2024 Assessment & Plan (1) Encephalopathy: Plan: Encephalopathy: Plan: Delirium on dementia Multifactorial complicated UTI/mild diverticulitis, no sepsis for now Uncontrolled hypertension ARF on CKD Narcotic/neuropsychotropic medications contributory chronic diastolic heart failure (EF 60 to 65%, TTE 2019), equivocal volume status hx CAD status post angioplasty SSS status post PPM on Coumadin, INR subtherapeutic valvular heart disease (mild AR/MR/TR) hx CVA hyperlipidemia, on statin Rx COPD, lung status at baseline DM 2 diet-controlled, well-controlled as of last hemoglobin A1c of 5.6 2022 hypothyroidism, euthyroid as of recent TSH last June, seizure disorder, stable on Keppra Need for placement past tobacco abuse Admit to med/tele CS, Zosyn Clear liquid diet for now Titrate home BP meds Monitor creatinine response to IVF Hold narcotics/neuropsychotropic medications until mentation back to baseline ISS BG goal 110-140, carb count coverage PT OT eval Social service re: discharge planning, patient family requesting for placement. DVT prophylaxis. Coumadin INR goal between 2 and 3 DNR as per son, Mr. Daniel Diaz. He requests updates from providers through [phone]. Text document was generated using [employer] voice recognition software. It may contain grammatical or spelling errors. Kindly contact undersigned for clarification of any documentation item in question. History of Present Illness Chief Complaint: Confusion as per records Primary Care Provider: Steve Hooker MD History obtained from patient, family, and records. Limited history from patient secondary to confusion. Medical history significant for chronic diastolic heart failure (EF 60 to 65%, TTE 2019), CAD status post angioplasty, SSS status post PPM on Coumadin, valvular heart disease (mild AR/MR/TR), CVA, hypertension, hyperlipidemia, COPD, GERD, DM 2 diet-controlled, hypothyroidism, CRI (baseline creatinine 1.4-1.5), recurrent UTIs, PMR, seizure disorder, dementia as per records, anxiety/mood di sorder, past tobacco abuse. Last confinement June 2023 for encephalopathy secondary to Enterococcus faecalis UTI. Patient with dysuria symptoms 3 weeks ago. Outpatient UA grew Enterococcus. Patient completed amoxicillin course. Patient noted to be increasingly confused over the last 2 days. Patient not eating well. Denies headache, chest pain, SOB. Achy abdominal pain. Patient brought to ER for evaluation. SBP 170s upon arrival at the ER. IV ceftriaxone administered at the ER. 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 Allergies Allergy/AdvReac Type Severity Reaction Status Date / Time metoclopramide Allergy Intermediate neuro Verified 06/26/23 18:42 complications adhesive Allergy Unknown ALLERGY TO Verified 06/26/23 18:42 TAPE doxycycline AdvReac Intermediate NAUSEA/VOMI Verified 06/26/23 18:42 TING naproxen [From Naprosyn] AdvReac Intermediate CAN'T Verified 06/26/23 18:42 TOLERATE, DEPRESSED, EMOTIONAL Home Medications Medication Instructions Recorded Confirmed Type aspirin 81 mg tablet,delayed 81 mg PO 3XWK 08/20/19 10/05/24 History release atorvastatin 40 mg tablet 40 mg PO HS 08/20/19 10/05/24 History isosorbide mononitrate 30 mg 30 mg PO QAM 08/20/19 10/05/24 History tablet,extended release 24 hr magnesium oxide 400 mg PO QAM 08/20/19 10/05/24 History omeprazole 20 mg capsule,delayed 20 mg PO DAILYBB 08/20/19 10/05/24 History release potassium chloride 10 mEq 10 meq PO UD 08/20/19 10/05/24 History tablet,extended release(part/cryst) (Klor-Con M) acetaminophen 500 mg tablet 1,000 mg PO Q6H PRN Pain 06/20/21 10/05/24 History (Tylenol Extra Strength) biotin 10,000 mcg capsule 10,000 mcg PO DAILY 06/20/21 10/05/24 History levetiracetam 500 mg tablet 500 mg PO BID 06/20/21 10/05/24 History metoprolol succinate 25 mg 25 mg PO DAILY 06/20/21 10/05/24 History tablet,extended release 24 hr multivitamin-ferrous 1 tab PO HS 06/20/21 10/05/24 History fumarate-folic acid 18 mg-400 mcg tablet (Centrum) oxycodone-acetaminophen 10 mg-325 1 tab PO Q6H PRN Severe Pain 06/20/21 10/05/24 History mg tablet (Scale Score 7-10) trazodone 50 mg tablet 25 mg PO HS 06/20/21 10/05/24 History warfarin 4 mg tablet 4 - 6 mg PO DIRECTED 06/20/21 10/05/24 History docusate sodium 100 mg capsule 200 mg PO BID 06/28/22 10/05/24 History duloxetine 60 mg capsule,delayed 60 mg PO QAM 06/28/22 10/05/24 History release L.acidop,casei,lactis,rham-B.lact,trisha 1 cap PO HS 06/26/23 10/05/24 History 625 mg (10 billion cell) capsule (Advanced Probiotic) cetirizine 10 mg tablet (Zyrtec) 10 mg PO HS 06/26/23 10/05/24 History cholecalciferol (vitamin D3) 50 50 mcg PO DAILY 06/26/23 10/05/24 History mcg (2,000 unit) capsule (Vitamin D3) polyethylene glycol 3350 17 17 g PO DAILY PRN Constipation 06/26/23 10/05/24 History gram/dose oral powder (Miralax) simethicone 80 mg chewable tablet 80 mg PO Q8H PRN GAS DISCOMFORT 06/26/23 10/05/24 History torsemide 20 mg tablet 20 mg PO BID 06/26/23 10/05/24 History bupropion HCl 100 mg tablet,12 hr 100 mg PO DAILY 10/05/24 10/05/24 History sustained-release triamcinolone acetonide 0.1 % 1 applic topical BID 10/05/24 10/05/24 History topical ointment Past Med/Surg History Problem List (Updated 10/06/24 @ 00:06 by Background Daemon) Acute UTI (urinary tract infection) (Acute) Acute confusion (Acute) Acute kidney injury superimposed on chronic kidney disease (Acute) Generalized weakness (Acute) Encephalopathy Dehydration (Acute) Acute UTI (Acute) HARJEET (acute kidney injury) (Acute) Acute confusion (Acute) Localized osteoarthritis of left knee Knee injury Urinary tract infection due to Proteus Chronic atrial fibrillation Preop cardiovascular exam Closed intertrochanteric fracture of left femur CKD (chronic kidney disease), stage III Chronic diastolic heart failure Abnormal finding on urinalysis Fall (Acute) Hematuria Weakness (Acute) Need for physical therapy assessment (Acute) Weakness (Acute) Chronic pain CVA (cerebral vascular accident) Warfarin therapy started Anticoagulated (Acute) Seizure-like activity (Acute) Status post placement of cardiac pacemaker Paroxysmal atrial fibrillation Acute kidney injury superimposed on CKD (Acute) Polymyalgia rheumatica (Chronic) 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Acute) Symptomatic bradycardia (Acute) Diastolic CHF (Chronic) Hypomagnesemia (Chronic) HTN (hypertension) (Chronic) Chronic back pain (Chronic) GERD (gastroesophageal reflux disease) (Chronic) CKD stage 3 due to type 1 diabetes mellitus (Chronic) DM type 2 (diabetes mellitus, type 2) (Chronic) Dyslipidemia (Chronic) CAD (coronary artery disease) (Chronic) "1996 - PTCA to RCA 2011 - cath that showed patent RCA and no further disease" Medical History History of nephrolithiasis Surgical History S/P hysterectomy S/P appendectomy S/P cholecystectomy History of lithotripsy History of cystoscopy History of PTCA Family History Aunt Breast cancer Mother Diabetes Coronary heart disease Father Silicosis Social History Smoking Status: Former smoker Tobacco Type: Cigarettes packs per day: 0.5; Second Hand Exposure: No; Do You Dip or Chew Tobacco: No; Hx Alcohol Use: No Hx Substance Use: No Preferred Language: Bangladeshi Communication Ability: Effective Visual Impairment: Partially Limited Operation Specialist Required: No Beliefs That Will Affect Care: None marital status: / Current Living Situation: Alone Current Living Situation Comment: children help with care but do not live with her Feels Safe at Home: Yes Assistive Devices: Denture - Upper, Denture - Lower, Glasses, Hearing Aid - Bilateral and Walker Review of Systems Review of Systems: Could not be reliably obtained secondary to confusion Physical Exam Physical Exam: GENERAL: Confused, morbidly obese, no respiratory distress SKIN: Pallor, warm HEENT: B spectacle, pale palpebral conjunctivae, no ptosis, dry buccal mucosa NECK : Supple, no tenderness CHEST : CTA, no tenderness HEART : RRR, systolic murmur ABDOMEN: Some distention, hypogastric tenderness EXTREMITIES : No LE swelling/tenderness, palpable pulses, no other conspicuous deformities noted NEUROLOGIC : Disoriented, no facial asymmetry, no other gross focality Results & Data Results & Data Vital Signs (Past 12 Hours) Vital Signs Temp Pulse Pulse Resp BP BP Pulse Ox 10/05/24 18:31 98 10/05/24 18:31 60 18 137/89 98 10/05/24 18:11 61 10/05/24 17:02 36.7 C 83 18 122/81 99 O2 Del Method 10/05/24 18:31 Room Air 10/05/24 18:31 Room Air 10/05/24 18:11 10/05/24 17:02 Room Air Laboratory Results Laboratory Results WBC 7.09 K/ul (4.8-10.8) 10/05/24 18: RBC 4.65 M/uL (4.20-5.40) 10/05/24 18: Hgb 13.8 g/dl (12.0-16.0) 10/05/24 18: Hct 42.4 % (37.0-47.0) 10/05/24 18: MCV 91.2 fL (80.0-100.0) 10/05/24 18: MCH 29.7 pg (25.0-34.0) 10/05/24 18: MCHC 32.5 g/dL (32.0-36.0) 10/05/24 18: RDW Std Deviation 47.6 fL (36.4-46.3) H 10/05/24: RDW Coeff of Tab 14.3 % (11.5-14.5) 10/05/24 18: Plt Count 190 K/uL (130-400) 10/05/24 18: MPV 11.0 fL (9.4-12.4) 10/05/24: Immature Gran % (Auto) 0.1 % 10/05/24 18: Neut % (Auto) 62.7 % 10/05/24: Lymph % (Auto) 26.2 % 10/05/24: [place] % (Auto) 6.6 % 10/05/24 18: Eos % (Auto) 4.1 % 10/05/24: Baso % (Auto) 0.3 % 10/05/24 18: Neut # (Auto) 4.44 K/uL (1.40-6.50) 10/05/24 18: Lymph # (Auto) 1.86 K/uL (1.20-3.40) 10/05/24 18: [place] # (Auto) 0.47 K/uL (0.11-0.59) 10/05/24 18: Eos # (Auto) 0.29 K/uL (0.00-0.50) 10/05/24 18: Baso # (Auto) 0.02 K/uL (0.00-0.20) 10/05/24 18: Immature Gran # (Auto) 0.01 K/uL (0.01-0.20) 10/05/24 18: PT 15.1 Seconds (9.0-12.0) H 10/05/24 18: INR 1.4 (0.9-1.1) H 10/05/24 18: Sodium 138 mmol/L (136-145) 10/05/24 18: Potassium 4.5 mmol/L (3.5-5.1) 10/05/24 18: Chloride 102 mmol/L (98-107) 10/05/24 18: Carbon Dioxide 34 mmol/L (21-32) H 10/05/24 18: Anion Gap 2 (3-11) L 10/05/24: BUN 32 mg/dl (6-23) H 10/05/24 18: Creatinine 1.88 mg/dl (0.6-1.2) H 10/05/24 18: Est Cr Clr Drug Dosing 21.1 ml/min 10/05/24 18: eGFR 25.56 10/05/24 18: BUN/Creatinine Ratio 17.0 (10-20) 10/05/24 18: Glucose 171 mg/dl (70-99(Fasting)) H 10/05/24 18: Calcium 10.3 mg/dl (8.6-10.3) 10/05/24 18: Magnesium 2.0 mg/dl (1.7-2.4) 10/05/24 18:29 Total Bilirubin 0.5 mg/dl (0.2-1.0) 10/05/24 18: AST 21 U/L (13-39) 10/05/24 18: ALT 15 U/L (7-52) 10/05/24 18: Alkaline Phosphatase 116 U/L (34-104) H 10/05/24 18: Troponin I High Sens 3.6 pg/ml (0-14) 10/05/24 18: Total Protein 6.3 gm/dl (6.0-8.3) 10/05/24 18: Albumin 3.9 gm/dl (3.4-5.0) 10/05/24 18: Globulin 2.4 gm/dl (2.5-4.0) L 10/05/24 18: Albumin/Globulin Ratio 1.6 (0.9-2) 10/05/24 18: Lipase 28 U/L (11-82) 10/05/24 18:29 Urine Color Yellow 10/05/24 18:54 Urine Appearance Slightly Cloudy (Clear) 10/05/24 18:54 Urine pH 6.0 (4.5-7.5) 10/05/24 18:54 Ur Specific [place] 1.015 (1.000-1.030) 10/05/24 18:54 Urine Protein 1+ (Negative) H 10/05/24 18:54 Urine Glucose (UA) Negative (Negative) 10/05/24 18:54 Urine Ketones Negative (Negative) 10/05/24 18:54 Urine Blood 2+ (Negative) H 10/05/24 18:54 Urine Nitrite Negative (Negative) 10/05/24 18:54 Urine Bilirubin Negative (Negative) 10/05/24 18:54 Urine Urobilinogen Negative (Negative) 10/05/24 18:54 Ur Leukocyte Esterase 1+ (Negative) H 10/05/24 18:54 Urine RBC 6-10 /hpf (0-2) H 10/05/24 18:54 Urine WBC >50 /hpf (0-5) H 10/05/24 18:54 Ur Epithelial Cells 0-2 /hpf (0-2) 10/05/24 18:54 Urine Bacteria 1+ (None Seen) H 10/05/24 18:54 Impressions Chest X-Ray 10/05/24 17:36 EXAM: XR chest 1V portable CLINICAL HISTORY: weakness TECHNIQUE: An X-ray image of the chest is obtained in PA projection. COMPARISON: 06/26/2023 CR FINDINGS: Pulmonary Parenchyma: Bilateral exaggerated bronchovascular markings with prominent pulmonary interstitium. No evidence of pleural effusion or pleural thickening. Heart and Mediastinum: Heart size and shape are normal. No mediastinal widening or masses. No hilar or mediastinal lymphadenopathy. Bony Thorax: Bony thorax appears intact without fractures or deformities. Soft Tissues: Soft tissues overlying the chest wall are unremarkable. A pacemaker is noted IMPRESSION: 1. Bilateral exaggerated bronchovascular markings with prominent pulmonary interstitium. 2. A pacemaker is noted 3. No interval changes detected. Electronically signed by Fili Red 10-05-2024 7:[address] head: 1. Microvascular white matter ischemic changes and senile changes. 2. No intra- or extra-axial hematomas or parenchymal territorial hypodense areas suggest an acute ischemic insult. 3. Early changes of stroke may not be detected on a CT scan. If there is a strong clinical suspicion of stroke, then an MRI with diffusion-weighted imaging is suggested. 4. Compared to the previous no significant interval change is seen. CT abdomen pelvis: 1. Mild acute diverticulitis of the terminal ileum. 2. Nonobstructing stone in the left renal pelvis measuring 1.1 cm. 3. Moderate hiatal hernia. Diagnostic Findings EKG as per my interpretation : Rate 60, paced rhythm
--- NOTE | 2024-10-05 20:24 | CT Scan Report ---
EXAM: CT head/brain wo con CLINICAL HISTORY: Weakness. TECHNIQUE: An axial non-contrast CT scan of the brain was performed from the skull base to the high parietal region. One of the following dose-reduction techniques was utilized for this exam. Automated exposure control, adjustment of the mA and/or kV according to patient size, and use of iterative reconstruction. "CT scan performed according to ALARA principles. Automated exposure control used during the exam." COMPARISON: 06/26/2023,09/21/2022 FINDINGS: Patchy hypodensities are seen in the bilateral cerebral deep and subcortical white matter regions and are non-specific but may represent chronic microvascular white matter ischemic changes. The ventricular system, cortical sulci, and basal cisterns are prominent and consistent with senile changes. Old lacunar infarct in the bilateral basal ganglia Anderson-white matter differentiation is maintained. Focal faint hyperdensity in the right frontal lobe could be partial voluming/artifact No midline shifts or deformity. No intracerebral or extra axial hematoma. Normal CT appearance of the posterior fossa structures, namely the cerebellar hemispheres, brainstem, and cerebellar peduncles. The bony structures in the skull base are unremarkable. There are no definite calvarium fractures. The scanned paranasal sinuses are clear. Hyperostosis frontalis interna noted IMPRESSION: 1. Microvascular white matter ischemic changes and senile changes. 2. No intra- or extra-axial hematomas or parenchymal territorial hypodense areas suggest an acute ischemic insult. 3. Early changes of stroke may not be detected on a CT scan. If there is a strong clinical suspicion of stroke, then an MRI with diffusion-weighted imaging is suggested. 4. Compared to the previous no significant interval change is seen. Electronically signed by Fili Red 10-05-2024 8:24 PM
[2024-10-05] MEDS: 4.5GM X1 IV STA (20:36)
[2024-10-05] MEDS ORDERED: POLYETHYLENE (MIRALAX) 17 GM PACK PO PRN (21:16)
[2024-10-05] MEDS ORDERED: oxyCODONE HCL IR 5 MG TAB (IMMEDIATE RELEASE) PO PRN (21:17)
[2024-10-05] MEDS ORDERED: PROMETHAZINE 6.25 MG/50.25 ML BAG IV PRN (21:17)
[2024-10-05] MEDS: METOPROLOL TARTRATE 1 MG/ML VIAL IV STA (22:40)
[2024-10-05] MEDS: DOCUSATE SODIUM 100 MG CAP PO SCH (22:40)
[2024-10-05] MEDS: levETIRAcetam 500 MG TAB PO SCH (23:30)
--- NOTE | 2024-10-05 23:35 | CT Scan Report ---
Exam(s): CT ABDOMEN + PELVIS Without Contrast EXAM: CT Abdomen and Pelvis Without Intravenous Contrast CLINICAL HISTORY: Reason for exam: abd back pain. TECHNIQUE: Axial computed tomography images of the abdomen and pelvis without intravenous contrast. CTDI is 25.73 mGy and DLP is 1057.19 mGy-cm. Automated exposure control was utilized for the study. A dose lowering technique was utilized adhering to the principles of ALARA. COMPARISON: 06/27/2023 FINDINGS: Mediastinum: Moderate hiatal hernia. ABDOMEN: Liver: Unremarkable. Gallbladder and bile ducts: Cholecystectomy. Pancreas: Unremarkable. Spleen: Unremarkable. Adrenals: Unremarkable. Kidneys and ureters: Nonobstructing stone in the left renal pelvis measuring 1.1 cm. No ureteral stone or obstructive uropathy. Stomach and bowel: Mild acute diverticulitis of the terminal ileum. PELVIS: Appendix: No findings to suggest acute appendicitis. Bladder: Unremarkable. Reproductive: Hysterectomy. ABDOMEN and PELVIS: Intraperitoneal space: Unremarkable. No free air. No significant fluid collection. Bones/joints: No acute fracture. Soft tissues: Unremarkable. Vasculature: Unremarkable. Lymph nodes: Unremarkable. IMPRESSION: 1. Mild acute diverticulitis of the terminal ileum. 2. Nonobstructing stone in the left renal pelvis measuring 1.1 cm. 3. Moderate hiatal hernia. Electronically signed by: Toro Herr MD 10/05/24 23:34 PM
--- OUTSIDE RECORDS SUMMARY | 2024-10-06 00:18 | External Medical Summary | Summary of Care ---
Author Name Unknown Organization [facility] Address [address] [place] [address] Phone [phone] Care Team Providers Care Assistant Office Manager Name Role Phone Nhung LOPEZ MD, Steve Langston Primary Care Provider [phone] Encounter Details Date Type Department Care Team (Late st Contact Info) Description 10/01/2024 4:20 PM EDT Home Visit Care Coordination and Integration [address], [place] [id number] Lea Pace, Community Health Optics Engineer [address] [place] [address] Allergies Active Allergy Reactions Criticality Noted Date Comments Adhesive Tape 07/05/2022 Doxycycline Nausea/vomiting 11/03/2010 Metoclopramide Hcl Neuro complications (Please comment) 12/07/2010 Developed worsening tremor and lip smacking. Naproxen 01/23/2012 Can not tolerate-gets very emotional and depressed documented as of this encounter (statuses as of 10/02/2024) Medications ASPIRIN 81 MG PO TABS Take by mouth. On Saturday, Saturday, Saturday only 0 0 03/27/20 06 Active PROBIOTIC PO CAPS daily Ac tive DOCQLACE 100 MG PO CAPSIndications:A bdominal pain, right upper quadrant TAKE TWO CAPSULES BY MOUTH DAILY 120 Cap 3 02/26/20 13 Active Additional Information Patient taking differently: 200 mgOralBID (.AM/PM), Reported on 09/30/2024 Polyethylene Glycol 3350 17 GM/SCOOP Oral Powder Take 17 g by mouth daily as needed for Constipation. Active acetaminophen (TYLENOL) 500 MG Tablet Take 2 Tablets by mouth every 6 hours as needed for Pain. 100 Tab 12/25/19 20 Active Multiple Vitamins-Minerals (CENTRUM ADULTS) TABS Take by mouth daily. Active Simethicone 80 MG Oral Tablet Chewable (Mylicon) Take 1 Tablet by mouth every 8 hours as needed for Gas. Active OneTouch Delica Lancets 30GIndications:Ty pe 2 diabetes mellitus with hemoglobin A1c goal of less than 8.0% ([facility]) Use to test once daily DX E11.9 100 Each 3 07/20/19 21 Active Additional Information Patient not taking.Reported on 05/29/2024 Biotin 44190 MCG Oral Tablet Take 1 Tablet by mouth daily. Active OneTouch Ultra Blue In Vitro Strip (Glucose Blood) Use to test once daily DX E11.9 100 Strip 3 12/20/19 22 Active Additional Information Patient not taking.Reported on 05/29/2024 Cetirizine HCl 10 MG Oral Tablet Take 1 Tablet by mouth in the morning. 07/16/19 23 Active Vitamin D 50 MCG (2000 UT) Oral Tablet Take 2,000 Units by mouth in the morning. Active DIURETIC TITRATION PLAN If no improvement on day 3, contact heart failure managing provider. 1 Each 05/26/20 23 Active Depend [id number] Use as directed. 30 Each 11 07/03/19 24 Active Triamcinolone Acetonide 0.1 % External Ointment (Aristocort)Indic ations:Atopic dermatitis, unspecified type Apply topically to affected area 2 times a day. 60 g 5 4 9:30 AM EDT 01/04/20 24 Active Warfarin Sodium 4 MG Oral Tablet (Coumadin) TAKE ONE TO ONE AND ONE-HALF TABLETS BY MOUTH EVERY DAY DIRECTED BY ANTICOAGULATION PHARMACIST 135 Tablet 3 5 12:55 PM EST 02/06/20 24 Active Omeprazole 20 MG Oral Capsule Delayed Release (PriLOSEC) TAKE ONE CAPSULE BY MOUTH IN THE MORNING 30 MINUTES BEFORE THE FIRST MEAL OF THE DAY 100 Capsule 1 5 2:33 PM EDT 06/19/19 25 026 Active Magnesium Oxide -Mg Supplement 400 (240 Mg) MG Oral Tablet (Mag-Ox) take 1 tablet by mouth every morning 90 Tablet 2 5 12:05 PM EST 10/10/19 24 Active levETIRAcetam 500 MG Oral Tablet (Keppra) Take 1 Tablet by mouth in the morning and 1 Tablet before bedtime. 180 Tablet 1 5 10:22 AM EST 07/14/19 25 Active Isosorbide Mononitrate ER 30 MG Oral Tablet Extended Release 24 Hour (Imdur)Indication s:CHOUDHARY (dyspnea on exertion) TAKE ONE TABLET BY MOUTH EVERY DAY IN THE MORNING 100 Tablet 1 5 2:13 PM EST 07/23/19 25 Active Atorvastatin Calcium 40 MG Oral Tablet (Lipitor) TAKE ONE TABLET BY MOUTH EVERY DAY 100 Tablet 3 5 12:55 PM EST 07/30/19 25 Active Metoprolol Succinate ER 25 MG Oral Tablet Extended Release 24 Hour (toPROL XL) Take 1 Tablet by mouth in the morning. 100 Tablet 5 10:09 AM EST 08/05/19 25 Active Potassium Chloride Elvi ER 10 MEQ Oral Tablet Extended ReleaseIndication s:ASCVD (arteriosclerotic cardiovascular disease) Take 1 Tablet by mouth daily. 100 Tablet 3 5 9:07 AM EST 08/10/19 25 Active DULoxetine HCl 60 MG Oral Capsule Delayed Release Particles (Cymbalta)Indicat ions:Moderate persistent asthma without complication TAKE ONE CAPSULE BY MOUTH EVERY MORNING DO NOT CUT, CRUSH OR CHEW 90 Capsule 3 5 3:41 PM EST 08/20/19 25 Active Torsemide 20 MG Oral Tablet (Demadex) Take 1 Tablet by mouth in the morning and 1 Tablet in the evening. 90 Tablet 1 5 7:40 AM EDT 08/25/19 25 Active oxyCODONE-Acetami nophen 10-325 MG Oral TabletIndications :Pain Take 1 Tablet by mouth every 6 hours as needed for Pain, Severe. 120 Tablet 5 11:47 AM EDT 09/30/19 25 Active buPROPion HCl ER (SR) 100 MG Oral Tablet Extended Release 12 Hour (Wellbutrin SR) Take 1 Tablet by mouth in the morning. 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 DM peripheral angiopathy 05/26/2023 Atherosclerosis of [place] ronary artery without angina pectoris 05/26/2023 Assessment & Plan (06/29/2024 12:17 PM EST): Advanced care planning/counseling discussion Assessment & Plan (09/01/2024 8:54 PM EDT): Assessment & Plan (12/27/2022 12:44 PM EDT): -patient does not have living will in writing -would like to make decisions based on the circumstances of the situation -encouraged patient and family to fill out documentation left by RN WALLACE Unspecified dementia, unspec ified severity, without behavioral disturbance, psychotic disturbance, mood disturbance, and anxiety 07/20/2022 Assessment & Plan (09/01/2024 8:54 PM EDT): Family assisting with IADLs Orders: HOME HEALTH REFERRAL OP Assessment & Plan (06/29/2024 12:17 PM EST): Mild, family assists with care and IADLs Assessment & Plan (08/07/2023 2:28 PM EST): Mild No safety concerns Assessment & Plan (05/26/2023 8:47 AM EST): No medication Appropriate today--stable, no safety concerns at this time. Assessment & Plan (02/27/2023 10:10 PM EDT): Stable, interactive today Age-related osteoporosis wit hout current pathological fracture 02/14/2022 Assessment & Plan (06/30/2024 8:36 AM EST): Continues vit d Looks like she was offered fosamax in the past, but did not start Hemiplegia, post-stroke 07/19/2021 Assessment & Plan (06/29/2024 12:17 PM EST): Using walker Assessment & Plan (08/07/2023 2:33 PM EST): Will order new rollator walker Major depressive disorder, recurrent episode, mi ld 07/19/2021 Assessment & Plan (06/29/2024 3:10 PM EST): Mood stable on cymbalta, wellbutrin Paroxysmal atrial fibrillation 07/19/2021 Assessment & Plan (06/29/2024 12:17 PM EST): Rate controlled Continue coumadin Assessment & Plan (08/07/2023 2:31 PM EST): Rate controlled metoprolol Warfarin stroke prophylaxis Assessment & Plan (05/26/2023 8:44 AM EST): Rate controlled metoprolol Warfarin stroke prophylaxis Assessment & Plan (02/27/2023 10:12 PM EDT): Amiodarone, coumadin 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 07/19/2021 Assessment & Plan (09/01/2024 8:54 PM EDT): Stable, continue torsemide Chronic leg swelling/lymphedema Assessment & Plan (06/29/2024 12:17 PM EST): "RED FLAG" HF Symptoms: Leg Swelling Increased dyspnea on exertion Medication Regimen: Beta Zayra Therapy: Metoprolol Succinate (ER) MARISABEL Inhibitor/ARB Therapy: No MARISABEL/ARB/ARNI secondary to: orthostasis Diuretic therapy: Torsemide SGLT2 Inhibitor: No Current SGLT2 (Describe in the Comments) Remote Patient Monitoring Vendor: RABT Device(s): Connected Scale Self - Management Plan Double dose of Torsemide for 3 days Exacerbation Plan Anticipated IV Lasix dose: 100 mg Additional Comments: Euvolemic today Chronic leg swelling Assessment & Plan (08/07/2023 2:28 PM EST): "RED FLAG" HF Symptoms: Leg Swelling (Examples: "I can't wear certain socks or shoes", "My pants feel tight") Medication Regimen: Beta Zayra Therapy: Metoprolol Succinate (ER) MARISABEL Inhibitor/ARB Therapy: none Diuretic therapy: Torsemide SGLT2 Inhibitor: none Remote Patient Monitoring Vendor: RABT Device(s): Connected Scale Self - Management Plan Double dose of Torsemide for 3 days Exacerbation Plan BMP Additional Comments: Stable today Ongoing leg swelling, wraps legs and elevates during the day Assessment & Plan (05/26/2023 8:42 AM EST): "RED FLAG" HF Symptoms: Leg Swelling (Examples: "I can't wear certain socks or shoes", "My pants feel tight") Medication Regimen: Beta Zayra Therapy: Metoprolol Succinate (ER) MARISABEL Inhibitor/ARB Therapy: none Diuretic therapy: Torsemide SGLT2 Inhibitor: none Remote Patient Monitoring Vendor: RABT Device(s): Connected Scale Self - Management Plan Double dose of Torsemide for 3 days Exacerbation Plan BMP Additional Comments: Stable today Assessment & Plan (02/27/2023 10:11 PM EDT): "RED FLAG" HF Symptoms: Leg Swelling (Examples: [...] Plan BMP Pro-BNP Chest X-Ray Additional Comments: Type 2 diabetes 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, without long-term current use of insulin 07/19/2021 Assessment & Plan (06/30/2024 10:22 AM EST): >>ASSESSMENT AND PLAN FOR TYPE 2 DIABETES MELLITUS WITH STAGE 3B CHRONIC KIDNEY DISEASE (HCC) WRITTEN ON 05/26/2023 8:46 AM BY MAYCO SOTO CRNP "RED FLAG" Diabetic symptoms: Other: none Goal HgbA1c <8 Diabetic Complications Vascular (examples: PVD, PAD, CAD, CVA) Renal (example: CKD, Proteinuria, Dialysis) Medication Regimen Lifestyle Modification / Monitoring ONLY DM Secondary Prevention Moderate-High Intensity Statin Aspirin Additional Comments Stable Assessment & Plan (06/30/2024 10:22 AM EST): >>ASSESSMENT AND PLAN FOR TYPE 2 DIABETES MELLITUS WITH STAGE 3B CHRONIC KIDNEY DISEASE (HCC) WRITTEN ON 06/29/2024 3:10 PM BY ALMA ROSA WASHBURN PA-C Hgba1c at goal Diet controlled Cardiac pacemaker in situ 03/25/2020 Unspecified open-angle glaucoma, stage unspecifi ed 12/09/2019 Assessment & Plan (06/29/2024 12:17 PM EST): Gastroesophageal reflux disease without esophagi tis 07/24/2019 Hyperparathyroidism, secondary renal 10/17/2018 Assessment & Plan (06/30/2024 8:36 AM EST): Continue vit d Moderate persistent asthma without complication 03/11/2018 Assessment & Plan (12/27/2022 4:41 PM EDT): -use albuterol MDI as needed -no recent exacerbation Spondylosis of lumbar region without myelopathy or radiculopathy 03/11/2018 Venous insufficiency 12/14/2016 MEDICATION USE AGREEMENT 06/22/2014 Overview (06/22/2014): Signed 12/22/13 Steve Hooker III, MD [facility] [place] Facet arthropathy, lumbar 10/07/2013 Type 2 diabetes mellitus wit h hemoglobin A1c goal of less than 8.0% 07/15/2013 Overview (10/13/2015): ICD-10 update of inactive term History of tobacco use 02/18/2013 Hearing loss 02/18/2013 DYSLIPIDEMIA, GOAL LDL BELOW 70 05/30/2009 Overview (05/30/2009): Per Lipid Taxonomy. S/P angioplasty with stent 09/05/2002 documented as of this encounter (statuses as of 10/02/2024) Resolved Problems Problem Noted Date Diagnosed Date Resolved Date 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 behavi oral disturbance, psychotic disturbance, mood disturbance, or anxiety 06/29/2024 07/29/2024 Type 2 diabetes mellitus wit h diabetic chronic kidney disease 08/07/2023 12/16/2023 Assessment & Plan (08/07/2023 2:30 PM EST): "RED FLAG" Diabetic symptoms: Rapid Weight Loss and Confusion Goal HgbA1c <8 Diabetic Complications Vascular (examples: PVD, PAD, CAD, CVA) Renal (example: CKD, Proteinuria, Dialysis) Medication Regimen Lifestyle Modification / Monitoring ONLY DM Secondary Prevention Moderate-High Intensity Statin Additional Comments A1c at goal Hypothyroidism 08/07/2023 08/07/2023 Polymyalgia rheumatica 07/19/202107/29 Hypothyroidism 09/12/2020 11/08/2021 Hypertensive heart and kidne [...] protocol #1 Asthma in remission 08/04/2014 03/11/20 Hypertension goal BP (blood pressure) < 140/80 10/12/2013 12/01/2015 Overview: Per HTN Protocol Right facial swelling 02/18/20132017 Chronic rhinitis 02/18/2013 06/13/2018 COPD, moderate 12/29/2012 12/29/2012 HTN, goal below 140/90 06/30/201210/07 HTN, goal below 140/80 02/04/201206/30 Overview: Per HTN Protocol #27. Asthma, mild persistent. Mod restrictive ds. 1 08/04/2014 ADVANCE DIRECTIVE INFORMATION 08/09/2010 04/20/2024 Overview (10/11/2004): No, Advance Directive brochure given to patient at prior appointment. Benign neoplasm of colon 02/24/2010 Overview (03/09/2010): adenomatousa/repeat colonoscopy in 5 yrs HTN, GOAL BELOW 130/80 07/13/200902/06 Overview (07/13/2009): Per HTN Taxonomy. Type 2 diabetes mellitus wit h hemoglobin A1c goal of less than 7.0% 04/14/2009 07/15/2013 Overview (10/11/2015): Per Diabetes Taxonomy. ICD-10 update of inactive term Type 2 diabetes mellitus wit h hemoglobin A1c goal of less than 7.0% 01/03/2005 04/14/2009 Overview (10/11/2015): Per Diabetes Taxonomy. ICD-10 update of inactive term Other specified glaucoma 05/05/2003 HYPERTENSIVE HRT DIS NOS 09/05/2002 Overview (02/03/2009): Per Heart Failure Taxonomy Protocol. COPD, severity to be determined 12/10/2000 12/29/2012 Overview (07/10/2010): PFT 10/2009 -- Moderate restrictive/obstructive lung disease, significant response to albuterol, mild hyperinflation ATHEROSCLEROTIC CORONARY DISEASE 12/16/2023 Assessment & Plan (05/26/2023 8:38 AM EST): Followed by cardiology Continue imdur, atorvastatin, asa and metoprolol HTN, goal below 140/90 07/13 Overview (07/13/2009): Per HTN Taxonomy. Mixed dyslipidemia 9 Overview (05/30/2009): Per Lipid Taxonomy. Polymyalgia rheumatica 06/30 DEEP PHLEBITIS-LEG NEC 05/04 BENIGN NEOPLASM LG BOWEL documented as of this encounter (statuses as of 10/02/2024) Immunizations Name Administration Dates Next Due COVID-19 mRNA, LNP-s, No Pre serve, 2-Dose Series (Re Pet) 06/01/2021,10/15/2020,09/24/2020 Covid-19, Mrna, Lnp-s, Pf, B ivalent, 10 Mcg, IM, 5-11 yrs (Re Pet) 07/12/2022 H1N1 2009 Influenza, IM 06/28/2009 PPD 07/06/2022 Pneumococcal Conjugate Vacc, 13 Valent (Prevnar) 08/04/2014 Pneumococcal Polysaccharide PPV23 (Pneumovax) 12/29/2009 RSV Vac., Bivalent, Perfusio n F, Pf,0.5 Ml (Abrysvo) 07/03/2023 Season Influenza, Quad, PF, Adjuvanted, 65+ Yrs, IM (FLUAD) 06/08/2020 Seasonal Influenza Vac., MDV , IM, 0.5 mL (Fluzone) 05/04/2014,02/25/2013,02/27/2012,04/11,04/04/2010,06/13/2009,04/05/2008 ,03/26/2007,04/15/2006 Seasonal Influenza, High Dos e, Trivalent, PF, IM (Fluzone HD) 05/29/2024 Seasonal Influenza, PF, 6 M & above, IM , (FluLaval or Fluzone) 03/11/2018,05/29/2017 Seasonal Influenza, Quadriva lent Hd (Fluzone Hd) 04/03/2023,03/27/2021 Seasonal Influenza, Quadriva lent Hd, 65+ Yrs 07/10/2022 Seasonal Influenza, Quadriva lent, No Preserve, IM 02/27/2016 Seasonal Influenza, Trivalen t, Adjuvanted, 65+ YRS, PF, (Fluad) 04/21/2019 TD - Tetanus/Diptheria (ADULT) 11/20/2007 TDAP (age 10 and older)(Boostrix) 02/01/2015 Varicella Zoster Vaccine Ariel lt (Zostavax) 02/23/2015 Zoster Vaccine Recombinant (Shingrix) 11/14/2018 ,10/30/2018,05/30/2018 documented as of this encounter Social History Tobacco Use Types Packs/Day Years Used Date Smoking Tobacco: Former Cigarettes 0.5 40 0 [birth year]11/1955 - 02/11/1995 Smokeless Tobacco: Never Alcohol Use Standard [...] the money to buy more. Never true 05/07/20 24 Within the past 12 months, t he food you bought just didn't last and you didn't have money to get more. Never true 05/07/2024 Childcare Answer Date Recorded Do you feel overwhelmed with taking care of a child, family member or friend? No 05/07/2024 Does your family need help f inding childcare? (Household - for ages 0-17 years) Not on file 05/07/2024 Clothing Answer Date Recorded Have you been unable to get clothing when it was really needed? No 05/07/2024 Is your family able to get c lothes or diapers when needed? (Household - for ages 0-17 years) Not on file 05/07/2024 Personal Safety Answer Date Recorded Do you feel unsafe or have concerns for your saf ety? No 05/07/2024 Do you have concerns for you r family's safety? (Household - for ages 0-17 years) Not on file 05/07/2024 Utilities Answer Date Recorded Do you have trouble paying y our heating, water, or electric bill? No 05/07/2024 Is your family able to pay t he heat, water, or electric bill? (Household - for ages 0-17 years) Not on file 05/07/2024 Does your family have access to good internet? (Household - for ages 0-17 years) Not on file 05/07/2024 Employment Status Answer Date Recorded Are you unemployed or without regular income? No 05/07/2024 Does the household have a re gular source of income? (Household - for ages 0-17 years) Not on file 05/07/2024 Social Connections Answer Date Recorded How often do you feel lonely or isolated from th ose around you? Never 05/07/2024 Financial Resource Strain Answer Date R ecorded Do you have any trouble payi ng for your medications, or do you think you might in the future? No 05/07/2024 Does your family have troubl e paying for medicine? (Household - for ages 0-17 years) Not on file 05/07/2024 Transportation Needs Answer Date Record ed Do you have trouble getting a ride to medical visits or work? (Adult - for ages 18 years and over) Not on file 05/07/2024 Does your family have a hard time getting a ride to doctors visits? (Household - for ages 0-17 years) Not on file 05/07/2024 Has lack of transportation k ept you from medical appointments, meetings, work, or from getting things needed for daily living? Check all that apply. No 05/07/2024 Do you (or your family) have trouble finding or paying for a ride (transportation)? (Household - for ages 0-17 years) Not on file 05/07/2024 Housing Stability Answer Date Recorded Do you currently live in a s helter or have no steady place to sleep at night? No 05/07/2024 Do you think you are at risk of becoming homeless? (Adult - for ages 18 years and over) Not on file 05/07/2024 Does your family worry about paying for your home or becoming homeless? (Household - for ages 0-17 years) Not on file 1 07/07/2023 Are you homeless or worried that you might be in the future? No 05/07/2024 Are you (or your family) vanessa eless or worried that you might be in the future? (Household - for ages 0-17 years) Not on file Food Insecurity Answer Date Recorded Do you need food for this week? No 05/07/2024 Are you able to get enough f ood for your family? (Household - for ages 0-17 years) Not on file 05/07/2024 Does your family need food t his week? (Household - for ages 0-17 years) Not on file 05/07/2024 Do you always have enough fo od for your family? (Household - for ages 0-17 years) Not on file 05/07/2024 Food Insecurity Answer Date Recorded Within the past 12 months, y ou worried that your food would run out before you got the money to buy more. Never true 05/07/20 24 Within the past 12 months, t he food you bought just didn't last and you didn't have money to get more. Never true 05/07/2024 Do you need food for this week? 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 Patient did not have return box or label. ThisCHW will take to [facility] and have it processed for return. Lea Pace- Community Health Worker 1 Support Services/[facility] [facility] [email or web address] documented in this encounter Plan of Treatment Upcoming Encounters Date Type Department Care Team (Late st Contact Info) Description 10/12/2024 7:05 AM EDT Laboratory Lab Mobile Phlebotomy [address] [place] [address] [facility] Mobile Home Draw [address] [place] [address] [place] [address] 10/13/2024 6:00 AM EDT Anticoagulation [facility], Alfredabhishek Guevara [address] [place] [address] [place] [address] [place] [address] 11/11/2024 9:30 AM EDT Home Visit [facility], [facility] [address] [place] [address], [facility] [address] [place] [address] Health Maintenance Due Date Last Done Comments Adult Wellness Visit 09/16/2019 09/15/2018 Depression Monitoring 09/16/2019 09/15/2018 Diabetic Foot Exam 09/12/2021 09/12/2020, 0 12/09/2019, 01/07/2019, Additional history exists *BISPHONATE OR OTHER ACCEPTABLE MEDICATION NEEDED FOR OSTEOPOROSIS (REFER TO SMARTSET #1146) 02/17/2022 DXA Scan 12/27/2023 12/26/2021, 12/15, 05/26/2014, Additional history exists COVID-19 Vaccine ( season) 2024 07/12/2022, 06/01/2021, 10/15/2020, Additional history exists Diabetic Eye Exam 06/07/2024 06/07/2023, , 06/07/2023, Additional history exists HbA1c 01/26/2025 07/29/2024, 04/17, 10/21/2023, Additional history exists DTap/Tdap Vaccines (2 - Td or Tdap) 02/01/2025 02/01/2015, 11/20/2007, 09/21/1998 CKD HGB USE SMARTSET 09747 05/29/202505/29, 08/27/2023, 08/27/2023, Additional history exists Albumin/Creatinine Ratio 07/29/2025 025, 07/27/2021, 01/15/2020, Additional history exists CKD PHOS USE SMARTSET 98798 07/29/202507/18, 10/21/2023, 03/02/2022, Additional history exists Pneumococcal Vaccine: 50+ Years Completed 08/04/2014, 12/29/2009 Zoster Vaccines Completed 11/14/2018, 10/15, 05/30/2018, Additional history exists VITAMIN D LEVEL ONCE IN A LIFETIME-USE SMARTSET# [id number] Completed 07/04/2021, 09/12/2020, 01/11/2020, Additional history exists Influenza Vaccine (FLU shot) Completed , 04/03/2023, 07/10/2022, Additional history exists HPV (Gardasil) Vaccine Aged Out No lo nger eligible based on patient's age to complete this topic Hepatitis B Vaccine Aged Out No longe r eligible based on patient's age to complete this topic MENINGOCOCCAL (MENACTRA/MENVEO) Aged Out No longer eligible based on patient's age to complete this topic Meningitis B Vaccine (Bexsero/Trumemba) Aged Out No longer eligible based on patient's age to complete this topic documented as of this encounter Medical Devices Implanted Type Area Director Dance Device Identifier Shelf Expiration Date Model / Serial / Lot Shoshana Xt Dr Mri-11/16/2019 Implanted: by Unique Hook DO (Quantity not on file) [employer] : CARDIAC SURGERY [id number] / [id number] / Description:[email or web address] AJR 09/30/24 1.5 OR 3T 1.5T - NOM 3T - NOM OR FLCOM, B1+YOAN MUST BE LESS THAN OR EQUAL TO 2.8 MICROTESLA WHEN THE ISOCENTER IS INFERIOR TO THE C7 VERTEBRA. SCANS CAN BE PERFORMED WITHOUT B1+YOAN RESTRICTION WHEN THE ISOCENTER IS AT OR SUPERIOR TO THE C7 VERTEBRA [facility] C[employer] Nov[employer] Mri-11/16/2019 Implanted: 020 by Unique Hook DO (Quantity not on file) [employer] : CARDIAC SURGERY [id number] / [id number] / Description:[email or web address] AJR 09/30/24 1.5 OR 3T 1.5T - NOM 3T - NOM OR FLCOM, B1+YOAN MUST BE LESS THAN OR EQUAL TO 2.8 MICROTESLA WHEN THE ISOCENTER IS INFERIOR TO THE C7 VERTEBRA. SCANS CAN BE PERFORMED WITHOUT B1+YOAN RESTRICTION WHEN THE ISOCENTER IS AT OR SUPERIOR TO THE C7 VERTEBRA 50 Capsurefix Novus Mri-11/16/2019 Implanted: 020 by Unique Hook DO (Quantity not on file) MED[employer] : CARDIAC SURGERY 5076-52 / [id number] / Description:[email or web address]://[email or web address].com/content/[email or web address] df AJR 09/30/24 1.5 OR 3T 1.5T - NOM 3T - NOM OR FLCOM, B1+YOAN MUST BE LESS THAN OR EQUAL TO 2.8 MICROTESLA WHEN THE ISOCENTER IS INFERIOR TO THE C7 VERTEBRA. SCANS CAN BE PERFORMED WITHOUT B1+YOAN RESTRICTION WHEN THE ISOCENTER IS AT OR SUPERIOR TO THE C7 VERTEBRA documented as of this encounter Advance Directives * Full Code (Latest Code Status on File) Date Activated Date Inactivated Comments 03/22/2017 8:49 AM 03/22/2017 4:00 PM This order r eflects the patients wishes and were consensually agreed upon. * Full Code Date Activated Date Inactivated Comments 03/08/2017 6:30 AM 03/08/2017 2:35 PM This order r eflects the patients wishes and were consensually agreed upon. Care Teams Assistant Office Manager Relationship Specialty Start Date End Date Steve Hooker III, MD [address] [place] [address] PCP - General 01/30/1996 documented as of this encounter
--- OUTSIDE RECORDS SUMMARY | 2024-10-06 00:18 | External Medical Summary | Summary of Care ---
Author Name Unknown Organization [facility] Address [address] [place] [address] Phone [phone] Care Team Providers Care Java Developer Name Role Phone Nhung LOPEZ MD, Steve Langston Primary Care Provider [phone] Reason for Visit * Reason Onset Date Comments Appointment 10/02/2024 MRI SCREEN/PACEM IFTIKHAR Encounter Details Date Type Department Care Team ([facility] Contact Info) Description 10/02/2024 Telephone Radiology, [address] [address] Ruben Pedro, RT Appointment (MRI SCREEN/PACEMAKER) Allergies Active Allergy Reactions Criticality Noted Date [...] Information Patient not taking.Reported on 05/29/2024 Biotin 74071 MCG Oral Tablet Take 1 Tablet by [...] provider. 1 Each 05/26/20 23 Active Depend Hnr-Zyvl-Rbavf-M Use as directed. 30 Each 11 07/03/19 [...] 05/26/2023 DM peripheral angiopathy 05/26/2023 Atherosclerosis of [place] ronary artery without angina pectoris 05/26/2023 [...] in the Comments) Remote Patient Monitoring Vendor: Tunii Device(s): Connected Scale Self - Management Plan [...] SGLT2 Inhibitor: none Remote Patient Monitoring Vendor: Tunii Device(s): Connected Scale Self - Management Plan [...] SGLT2 Inhibitor: none Remote Patient Monitoring Vendor: Tunii Device(s): Connected Scale Self - Management Plan [...] ON 06/29/2024 3:10 PM BY ALMA ROSA WSAHBURN PA-C Hgba1c at goal Diet controlled Cardiac [...] 12/22/13 Steve Hooker III, MD [facility] [place] Facet arthropathy, lumbar 10/07/2013 Type 2 diabetes [...] mRNA, LNP-s, No Pre serve, 2-Dose Series ([employer]) 06/01/2021,10/15/2020,09/24/2020 Covid-19, Mrna, Lnp-s, Pf, B ivalent, [...] 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 Not on file Not on 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 Not on file Not on file [employer] Not on file Not on file Not on file documented as of this encounter Miscellaneous Notes * Telephone Encounter - Ruben Pedro RT - 10/02/2024 8:31 AM EDT LEFT MESSAGE FOR PRE MRI SCREENING documented in this encounter Plan of Treatment Upcoming Encounters Date Type Department Care Team (Late st Contact Info) Description 10/12/2024 7:05 AM EDT Laboratory Lab Mobile Phlebotomy [address] [place] [address] [facility] Mobile Home Draw [address] [place] [address] [place] [address] 10/13/2024 6:00 AM EDT Anticoagulation Centralized [facility], Alfred Guevara [address] [place] [address] [place] [address] Ccps, [address] [place] [address] 11/11/2024 9:30 AM EDT [facility] [address] [place] [address], IM[facility] [address] [place] [address] Health Maintenance Due Date Last Done Comments [...] 02/01/2015, 11/20/2007, 09/21/1998 CKD HGB USE SMARTSET 34593 05/29/202505/29, 08/27/2023, 08/27/2023, Additional history exists Albumin/Creatinine Ratio 07/29/2025 025, 07/27/2021, 01/15/2020, Additional history exists CKD PHOS USE SMARTSET 37342 07/29/202507/18, 10/21/2023, 03/02/2022, Additional history exists Pneumococcal Vaccine: 50+ Years Completed 08/04/2014, 12/29/2009 Zoster Vaccines Completed 11/14/2018, 10/15, 05/30/2018, Additional history exists VITAMIN D LEVEL ONCE IN A LIFETIME-USE SMARTSET# 36658 Completed 07/04/2021, 09/12/2020, 01/11/2020, Additional history exists [...] this encounter Medical Devices Implanted Type Area Motor Vehicle Technician Device Identifier Shelf Expiration Date Model / Serial / Lot Shoshana Xt Mri-11/16/2019 Implanted: by Unique Hook DO (Quantity not on file) MEDTR[employer] : CARDIAC SURGERY [id number] / [id number] / Description:[email or web address]://[email or web address]/content/[email or web address] df AJR 09/30/24 1.5 OR 3T 1.5T - NOM 3T - NOM OR FLCOM, B1+YOAN MUST BE LESS THAN OR EQUAL TO 2.8 MICROTESLA WHEN THE ISOCENTER IS INFERIOR TO THE C7 VERTEBRA. SCANS CAN BE PERFORMED WITHOUT B1+YOAN RESTRICTION WHEN THE ISOCENTER IS AT OR SUPERIOR TO THE C7 VERTEBRA 5076 Jelani Watts Mri-11/16/2019 Implanted: 020 by Unique Hook DO (Quantity not on file) [employer] : CARDIAC SURGERY 5076-45 / [id number] / Description:[email or web address]://[email or web address]/content/[email or web address] df AJR 09/30/24 1.5 OR 3T 1.5T - NOM 3T - NOM OR FLCOM, B1+YOAN MUST BE LESS THAN OR EQUAL TO 2.8 MICROTESLA WHEN THE ISOCENTER IS INFERIOR TO THE C7 VERTEBRA. SCANS CAN BE PERFORMED WITHOUT B1+YOAN RESTRICTION WHEN THE ISOCENTER IS AT OR SUPERIOR TO THE C7 VERTEBRA 5076 Rohanfix Alexandrous Mri-11/16/2019 Implanted: 020 by Unique Hook DO (Quantity not on file) [employer] : CARDIAC SURGERY 5076-52 / [id number] / Description:[email or web address]://www.[email or web address].com/content/[email or web address] df AJR 09/30/24 1.5 OR [...] were consensually agreed upon. Care Teams Java Developer Relationship Specialty Start Date End Date Steve Hooker III, MD [address] [place] [address] PCP - General 01/30/1996 documented as of this encounter
--- OUTSIDE RECORDS SUMMARY | 2024-10-06 00:18 | External Medical Summary | Summary of Care ---
Author Name Unknown Organization [facility] Address [address] [place] [address] Phone [phone] Care Team Providers Care Bander Hand Name Role Phone Nhnug LOPEZ MD, Steve Langston Primary Care Provider [phone] Encounter Details Date Type Department Care Team (Late st Contact Info) Description 10/03/2024 Orders Only PATIENT PORTAL DO NOT DELETE THIS DEPT USED BY [place] [id number] Allergies Active Allergy Reactions Criticality Noted Date Comments Adhesive Tape 07/05/2022 Doxycycline Nausea/vomiting 11/03/2010 Metoclopramide Hcl Neuro complications (Please comment) 12/07/2010 Developed worsening tremor and lip smacking. Naproxen 01/23/2012 Can not tolerate-gets very emotional and depressed documented as of this encounter (statuses as of 10/03/2024) Medications ASPIRIN 81 MG PO TABS Take [...] hemoglobin A1c goal of less than 8.0% ([facility]) Use to test once daily DX E11.9 100 Each 3 07/20/19 21 Active Additional Information Patient not taking.Reported on 05/29/2024 Biotin 86081 MCG Oral Tablet Take 1 Tablet by [...] provider. 1 Each 05/26/20 23 Active Depend Snd-Uppe-Knatt-M Use as directed. 30 Each 11 07/03/19 [...] mouth in the morning. 100 Tablet 3 5 8:54 AM EDT 10/01/19 25 Active traZODone HCl 50 MG Oral Tablet (Desyrel) TAKE one-half TABLET BY MOUTH AT BEDTIME 50 Tablet 3 5 8:54 AM EDT 10/01/19 25 Active documented as of this encounter (statuses as of 10/03/2024) Active Problems Problem Noted Date Diagnosed Date [...] 05/26/2023 DM peripheral angiopathy 05/26/2023 Atherosclerosis of [place] ronary artery without angina pectoris 05/26/2023 [...] EDT): Stable, interactive today Age-related osteoporosis wit justine current pathological fracture 02/14/2022 Assessment & Plan [...] in the Comments) Remote Patient Monitoring Vendor: We R Interactive Device(s): Connected Scale Self - Management Plan [...] SGLT2 Inhibitor: none Remote Patient Monitoring Vendor: We R Interactive Device(s): Connected Scale Self - Management Plan [...] SGLT2 Inhibitor: none Remote Patient Monitoring Vendor: We R Interactive Device(s): Connected Scale Self - Management Plan [...] 12/22/13 Steve Hooker III, MD [facility] [place] Facet arthropathy, lumbar 10/07/2013 Type 2 diabetes mellitus wit h hemoglobin A1c goal of less than 8.0% 07/15/2013 Overview (10/13/2015): ICD-10 update of inactive term History of tobacco use 02/18/2013 Hearing loss 02/18/2013 DYSLIPIDEMIA, GOAL LDL BELOW 70 05/30/2009 Overview (05/30/2009): Per Lipid Taxonomy. 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 on file Not on vanda 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 Not on file Not on file [employer] Not on file Not on file Not on file documented as of this encounter Plan of Treatment Upcoming Encounters Date Type Department Care Team (Late st Contact Info) Description 10/12/2024 7:05 AM EDT Laboratory Lab Mobile Phlebotomy [address] [place] [address] [place], [facility] Mobile Home Draw [address] [place] [address] [place] [address] 10/13/2024 6:00 AM EDT Anticoagulation Centralized Clinical Pharmacy Services, Alfred Guevara [address] [place] [address] [place] [address] Ccps, [address] [place] [address] 11/11/2024 9:30 AM EDT [facility], [facility] [address] [place] [address], [facility] [address] [place] [address] Health Maintenance Due Date Last Done Comments [...] 02/01/2015, 11/20/2007, 09/21/1998 CKD HGB USE SMARTSET 15981 05/29/202505/29, 08/27/2023, 08/27/2023, Additional history exists Albumin/Creatinine Ratio 07/29/2025 025, 07/27/2021, 01/15/2020, Additional history exists CKD PHOS USE SMARTSET 20592 07/29/202507/18, 10/21/2023, 03/02/2022, Additional history exists Pneumococcal Vaccine: 50+ Years Completed 08/04/2014, 12/29/2009 Zoster Vaccines Completed 11/14/2018, 10/15, 05/30/2018, Additional history exists VITAMIN D LEVEL ONCE IN A LIFETIME-USE SMARTSET# 86082 Completed 07/04/2021, 09/12/2020, 01/11/2020, Additional history exists [...] this encounter Medical Devices Implanted Type Area Textile Coating Machine Operator Device Identifier Shelf Expiration Date Model / Serial / Lot Shoshana Xt Dr Mri-11/16/2019 Implanted: 020 by Unique Hook DO (Quantity not on file) [employer] : CARDIAC SURGERY [id number] / [id number] / Description:[email or web address]://[email or web address]/content/[email or web address] df AJR 09/30/24 1.5 OR 3T 1.5T - NOM 3T - NOM OR FLCOM, B1+YOAN MUST BE LESS THAN OR EQUAL TO 2.8 MICROTESLA WHEN THE ISOCENTER IS INFERIOR TO THE C7 VERTEBRA. SCANS CAN BE PERFORMED WITHOUT B1+YOAN RESTRICTION WHEN THE ISOCENTER IS AT OR SUPERIOR TO THE C7 VERTEBRA 5076 Capsurefix Novus Mri-11/16/2019 Implanted: 020 by Unique Hook DO (Quantity not on file) [employer] : CARDIAC SURGERY 5076-45 / [id number] / Description:[email or web address] df R 09/30/24 1.5 OR 3T 1.5T - NOM 3T - NOM OR FLCOM, B1+YOAN MUST BE LESS THAN OR EQUAL TO 2.8 MICROTESLA WHEN THE ISOCENTER IS INFERIOR TO THE C7 VERTEBRA. SCANS CAN BE PERFORMED WITHOUT B1+YOAN RESTRICTION WHEN THE ISOCENTER IS AT OR SUPERIOR TO THE C7 VERTEBRA 5076 Capsurefix Novus Mri-11/16/2019 Implanted: 020 by Unique Hook DO (Quantity not on file) [employer] : CARDIAC SURGERY 5076-52 / [id number] / Description:[email or web address]://www.[email or web address]/content/[email or web address] df R 09/30/24 1.5 OR 3T 1.5T - NOM [...] and were consensually agreed upon. Care Teams Bander Hand Relationship Specialty Start Date End Date Nhung III, Steve E, MD [address] [place] [address] PCP - General 01/30/1996 documented as of this encounter
--- OUTSIDE RECORDS SUMMARY | 2024-10-06 00:19 | External Medical Summary | Summary of Care ---
Author Name Unknown Organization [facility] Address [address] [facility] [place] [address] Phone [phone] Care Team Providers Care Solar Water Heater Installer Name Role Phone Nhung LOPEZ MD, Steve Langston Primary Care Provider [phone] Reason for Visit * Reason Comments Dosage Adjustment Via Phone (anticoag Cl inic) Encounter Details Date Type Department Care Team ([facility] st Contact Info) Description 09/29/2024 6:00 AM EDT Anticoagulation Centralized Clinical Pharmacy Services, Alfred Guevara [address] [place] [address] [place] [address] [place] [address] care home current use of anticoagulant therapy* Allergies Active Allergy Reactions Criticality Noted Date Comments Adhesive Tape 07/05/2022 Doxycycline Nausea/vomiting 11/03/2010 Metoclopramide Hcl Neuro complications (Please comment) 12/07/2010 Developed worsening tremor and lip smacking. Naproxen 01/23/2012 Can not tolerate-gets very emotional and depressed documented as of this encounter (statuses as of 09/29/2024) Medications ASPIRIN 81 MG PO TABS Take by mouth. On Saturday, Saturday, Saturday only 0 0 03/27/20 06 Active PROBIOTIC PO CAPS daily Ac tive DOCQLACE 100 MG PO CAPSIndications:A bdominal pain, right upper quadrant TAKE TWO CAPSULES BY MOUTH DAILY 120 Cap 3 02/26/20 13 Active Additional Information Patient taking differently: 200 mgOralBID (.AM/PM), Reported on 06/19/2024 Polyethylene Glycol 3350 17 GM/SCOOP Oral Powder [...] Information Patient not taking.Reported on 05/29/2024 Biotin 84282 MCG Oral Tablet Take 1 Tablet by [...] provider. 1 Each 05/26/20 23 Active Depend Smo-Igon-Xluwx-M Use as directed. 30 Each 11 07/03/19 24 Active buPROPion HCl ER (SR) 100 MG Oral Tablet Extended Release 12 Hour (Wellbutrin SR) Take 1 Tablet by mouth in the morning. 30 Tablet 11 5 12:05 PM EDT 09/08/19 24 Active Triamcinolone Acetonide 0.1 % External [...] 5 12:55 PM EST 02/06/20 24 Active traZODone HCl 50 MG Oral Tablet (Desyrel) TAKE 1/2 TABLET BY MOUTH AT BEDTIME 45 Tablet 1 5 12:05 PM EST 04/03/20 24 Active Omeprazole 20 MG Oral Capsule Delayed Release (PriLOSEC) TAKE ONE CAPSULE BY MOUTH IN THE MORNING 30 MINUTES BEFORE THE FIRST MEAL OF THE DAY 100 Capsule 1 5 9:11 AM EST 06/19/19 25 026 Active Magnesium Oxide -Mg [...] needed for Pain, Severe. 120 Tablet 5 12:05 PM EDT 08/30/19 25 Active documented as of this encounter (statuses as of 09/29/2024) Active Problems Problem Noted Date Diagnosed Date [...] 05/26/2023 DM peripheral angiopathy 05/26/2023 Atherosclerosis of [place] co ronary artery without angina pectoris 05/26/2023 [...] in the Comments) Remote Patient Monitoring Vendor: Futon Device(s): Connected Scale Self - Management Plan [...] SGLT2 Inhibitor: none Remote Patient Monitoring Vendor: Futon Device(s): Connected Scale Self - Management Plan [...] SGLT2 Inhibitor: none Remote Patient Monitoring Vendor: Futon Device(s): Connected Scale Self - Management Plan [...] 12/22/13 Steve Hooker III, MD [facility] [employer] Facet arthropathy, lumbar 10/07/2013 Type 2 diabetes mellitus wit h hemoglobin A1c goal of less than 8.0% 07/15/2013 Overview (10/13/2015): ICD-10 update of inactive term History of tobacco use 02/18/2013 Hearing loss 02/18/2013 DYSLIPIDEMIA, GOAL LDL BELOW 70 05/30/2009 Overview (05/30/2009): Per Lipid Taxonomy. S/P angioplasty with stent 09/05/2002 documented as of this encounter (statuses as of 09/29/2024) Resolved Problems Problem Noted Date Diagnosed Date [...] as of this encounter (statuses as of 09/29/2024) Immunizations Name Administration Dates Next Due COVID-19 mRNA, LNP-s, No Pre serve, 2-Dose Series ([employer]) 06/01/2021,10/15/2020,09/24/2020 Covid-19, Mrna, Lnp-s, Pf, B ivalent, [...] 05/07/2024 Does the household have a re lar source of income? 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 PT/INR results, Coumadin dose instructions, and next PT/INR date communicated as noted by Pharmacist: Yes Miguel A De La Rosa CPhT 09/29/2024, 8:14 AM * Lea Espana [facility] - 09/29/2024 8:05 AM EDT Images from the original note were not included. Coumadin Clinic (region specific) Objective Current Warfarin Dose As of 09/29/2024 Warfarin maintenance plan: 4 mg (4 mg x 1) every Tue, Myrna; 6 mg (4 mg x 1.5) all other days INR Result As of 09/29/2024 INR goal: 2.0-3.0 INR used for dosin.6 (09/28/2024) Assessment & Plan Warfarin Plan As of 09/29/2024 Full warfarin instructions: 09/29: Hold; Otherwise 4 mg every Tue, Myrna; 6 mg all other days Next INR check: 10/12/2024 Repeat PT/INR in 2 week(s) Weekly dose: not changed Additional Dosing Information: Description GML - Call Rufino with results/dosing Amiodarone decreased 01/2021 Tech to contact patient with dose instructions as noted. Lea Espana RPh 09/29/2024, 8:06 AM documented in this encounter Plan of Treatment Upcoming Encounters Date Type Department Care Team (Late st Contact Info) Description 10/01/2024 4:20 PM EDT Home Visit [facility] Coordination and Integration [address] [place] [address] Lea Pace, Community Health Sales Service Manager [address] [place] [address] 10/13/2024 6:00 AM EDT Anticoagulation Centralized Clinical Pharmacy Services, Alfred Guevara [address] [place] [address] [place] [address] [place] [address] 11/11/2024 9:30 AM EDT [facility] Visit [facility] [address] [place] [address], RN [address] [place] [address] Health Maintenance Due Date Last Done Comments [...] 02/01/2015, 11/20/2007, 09/21/1998 CKD HGB USE SMARTSET 59804 05/29/202505/29, 08/27/2023, 08/27/2023, Additional history exists Albumin/Creatinine Ratio 07/29/2025 025, 07/27/2021, 01/15/2020, Additional history exists CKD PHOS USE SMARTSET 86123 07/29/202507/18, 10/21/2023, 03/02/2022, Additional history exists Pneumococcal Vaccine: 50+ Years Completed 08/04/2014, 12/29/2009 Zoster Vaccines Completed 11/14/2018, 10/15, 05/30/2018, Additional history exists VITAMIN D LEVEL ONCE IN A LIFETIME-USE SMARTSET# 41630 Completed 07/04/2021, 09/12/2020, 01/11/2020, Additional history exists [...] as of this encounter Visit Diagnoses Diagnosis Advanced care planning/counseling discussion- Primary Other specified counseling Moderate persistent asthma without complication Unspecified asthma Paroxysmal atrial fibrillation (HCC)- Primary Atrial fibrillation Hypertensive heart and kidney 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 and stage 3b chronic kidney disease ([facility]) 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 disturbance, psychotic disturbance, mood disturbance, or anxiety, unspecified dementia severity ([facility]) Cardiac pacemaker in situ Hemiplegia, 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HCC) Hemiplegia affecting unspecified side, late effect of cerebrovascular disease Major depressive disorder, recurrent episode, mild (HCC) Major depressive disorder, recurrent episode, mild Polymyalgia rheumatica (HCC) Polymyalgia rheumatica Hypertensive heart and kidney 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 and stage 3b chronic kidney disease ([facility])- Primary Advanced care planning/counseling discussion Other specified counseling ATHEROSCLEROTIC CORONARY DISEASE Unspecified cardiovascular disease Paroxysmal atrial fibrillation (HCC) Atrial fibrillation 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[facility]) Sinoatrial node dysfunction Cardiac pacemaker in situ Type 2 diabetes mellitus with stage 3b chronic kidney disease, without long-term current use of insulin ([facility]) DM peripheral angiopathy ([facility]) Type II or unspecified type diabetes mellitus with peripheral circulatory disorders, not stated as uncontrolled Hypertensive heart and kidney 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 and stage 3b chronic kidney disease ([facility])- Primary 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 behavioral disturbance, psychotic disturbance, mood disturbance, or anxiety, unspecified dementia type ([facility]) Paroxysmal atrial fibrillation (HCC) Atrial fibrillation 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 status epilepticus, unspecified epilepsy type ([facility]) Type 2 diabetes mellitus with diabetic chronic kidney disease, unspecified CKD stage, unspecified whether longterm insulin use ([facility]) Open-angle glaucoma, unspecified glaucoma stage, unspecified laterality, unspecified open-angle glaucoma type Atherosclerosis of [place] coronary artery without angina pectoris, unspecified whether [place] or transplanted heart Hyperparathyroidism, secondary renal (HCC) Secondary hyperparathyroidism (of renal origin) Hemiplegia, 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HCC) Hemiplegia affecting unspecified side, late effect of cerebrovascular disease Urinary incontinence, unspecified type Hypertensive heart and kidney 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 and stage 3b chronic kidney disease ([facility])- Primary Hemiplegia, 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HCC) Hemiplegia affecting unspecified side, late effect of cerebrovascular disease 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 behavioral disturbance, psychotic disturbance, mood disturbance, or anxiety, unspecified dementia type ([facility]) Paroxysmal atrial fibrillation (HCC) Atrial fibrillation 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 status epilepticus, unspecified epilepsy type ([facility]) Type 2 diabetes mellitus with stage 3b chronic kidney disease, without long-term current use of insulin (HCC) Open-angle glaucoma, unspecified glaucoma stage, unspecified laterality, unspecified open-angle glaucoma type Major depressive disorder, recurrent episode, mild (HCC) Major depressive disorder, recurrent episode, mild Atherosclerosis of [place] coronary artery of [place] heart without angina pectoris Hyperparathyroidism, secondary renal (HCC) Secondary hyperparathyroidism (of renal origin) Age-related osteoporosis without current pathological fracture Senile osteoporosis Lymphedema Other lymphedema Fall in home, initial encounter- Primary Traumatic ecchymosis of right hip, initial encounter 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 behavioral disturbance, psychotic disturbance, mood disturbance, or anxiety, unspecified dementia type (HCC) Hypertensive heart and kidney 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 and stage 3b chronic kidney disease ([facility]) Advanced care planning/counseling discussion Other specified counseling lobsterman current use of anticoagulant therapy- Primary documented in this encounter Advance Directives * Full Code (Latest Code Status on File) Date Activated Date Inactivated Comments 03/22/2017 8:49 AM 03/22/2017 4:00 PM This order r eflects the patients wishes and were consensually agreed upon. * Full Code Date Activated Date Inactivated Comments 03/08/2017 6:30 AM 03/08/2017 2:35 PM This order r eflects the patients wishes and were consensually agreed upon. Care Teams Solar Water Heater Installer Relationship Specialty Start Date End Date Steve Hooker III, MD [address] [place] [address] PCP - General 01/30/1996 documented as of this encounter
--- OUTSIDE RECORDS SUMMARY | 2024-10-06 00:19 | External Medical Summary | Summary of Care ---
Author Name Unknown Organization [facility] Address [address] [place] [address] Phone [phone] Care Team Providers Care Acoustical Material Worker Name Role Phone Nhung LOPEZ MD, Steve Langston Primary Care Provider [phone] Reason for Visit * Reason Onset Date Comments Test Results 09/16/2024 Encounter Details Date Type Department Care Team ([facility] st Contact Info) Description 09/16/2024 Telephone Family Practice [facility] [place] [address] [facility] [place] [address] Steve Hooker III, MD [address] [place] [address] Test Results Allergies Active Allergy Reactions Criticality Noted Date Comments Adhesive Tape 07/05/2022 Doxycycline Nausea/vomiting 11/03/2010 Metoclopramide Hcl Neuro complications (Please comment) 12/07/2010 Developed worsening tremor and lip smacking. Naproxen 01/23/2012 Can not tolerate-gets very emotional and depressed documented as of this encounter (statuses as of 09/19/2024) Medications ASPIRIN 81 MG PO TABS Take [...] Information Patient not taking.Reported on 05/29/2024 Biotin 92353 MCG Oral Tablet Take 1 Tablet by [...] provider. 1 Each 05/26/20 23 Active Depend Xgn-Dcpy-Ulicw-M Use as directed. 30 Each 11 07/03/19 [...] Tablet in the evening. 90 Tablet 1 7:40 AM EDT 08/25/19 25 Active oxyCODONE-Acetami nophen 10-325 MG Oral TabletIndications :Pain Take 1 Tablet by mouth every 6 hours as needed for Pain, Severe. 120 Tablet 12:05 PM EDT 08/30/19 25 Active documented as of this encounter (statuses as of 09/19/2024) Active Problems Problem Noted Date Diagnosed Date [...] 05/26/2023 DM peripheral angiopathy 05/26/2023 Atherosclerosis of [place] co ronary artery without angina pectoris 05/26/2023 [...] in the Comments) Remote Patient Monitoring Vendor: Chestnut Medical Device(s): Connected Scale Self - Management Plan [...] SGLT2 Inhibitor: none Remote Patient Monitoring Vendor: [employer] Medical Device(s): Connected Scale Self - Management Plan [...] SGLT2 Inhibitor: none Remote Patient Monitoring Vendor: Chestnut Medical Device(s): Connected Scale Self - Management Plan [...] 12/22/13 Steve Hooker III, MD [facility] [place] Facet arthropathy, lumbar 10/07/2013 Type 2 diabetes mellitus wit h hemoglobin A1c goal of less than 8.0% 07/15/2013 Overview (10/13/2015): ICD-10 update of inactive term History of tobacco use 02/18/2013 Hearing loss 02/18/2013 DYSLIPIDEMIA, GOAL LDL BELOW 70 05/30/2009 Overview (05/30/2009): Per Lipid Taxonomy. S/P angioplasty with stent 09/05/2002 documented as of this encounter (statuses as of 09/19/2024) Resolved Problems Problem Noted Date Diagnosed Date [...] as of this encounter (statuses as of 09/19/2024) Immunizations Name Administration Dates Next Due COVID-19 mRNA, LNP-s, No Pre serve, 2-Dose Series ([employer]) 06/01/2021,10/15/2020,09/24/2020 Covid-19, Mrna, Lnp-s, Pf, B ivalent, 10 Mcg, IM, 5-11 yrs ([employer]) 07/12/2022 H1N1 2009 Influenza, IM 06/28/2009 PPD [...] 10 and older)(Boostrix) 02/01/2015 Varicella Zoster Vaccine Raiel lt (Zostavax) 02/23/2015 Zoster Vaccine Recombinant ([employer]) [...] 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 * Telephone Encounter - Tita Thomas LPN - 09/19/2024 12:35 PM EDT ----- Message from Steve Hooker MD sent at 09/19/2024 11:00 AM EDT ----- Call please UTI amoxicillin sent to [facility] pharmacy thank you * Telephone Encounter - Veronica Landeros LPN - 09/16/2024 8:19 AM EDT [facility] message sent. * Telephone Encounter - Veronica Landeros LPN - 09/16/2024 8:15 AM EDT ----- Message from Steve Hooker MD sent at 09/15/2024 2:04 PM EDT ----- Call please ?having urinary symptoms urine culture bacteria in the urine but not a specific organism to be treated documented in this encounter Plan of Treatment Upcoming Encounters Date Type Department Care Team (Late st Contact Info) Description 09/24/2024 7:00 AM EDT Laboratory Lab Mobile Phlebot[facility] [address] [place] [address] [facility] Mobile Home Draw [address] [place] [address] [place] [address] 09/25/2024 6:00 AM EDT Anticoagulation Centralized Clinical Pharmacy Services, Searcyabhishek Guevara [address] [place] [address] [place] [address] [address], [address] [place] [address] 10/01/2024 4:20 PM EDT Home Visit Care Coordination and Integration [address] [place] [address] Lea Pace, Community Health Brake Linings Coater [address] [place] [address] 11/11/2024 9:30 AM EDT [facility] [address] [place] [address], RN [address] [place] [address] Health Maintenance Due Date Last Done Comments [...] 02/01/2015, 11/20/2007, 09/21/1998 CKD HGB USE SMARTSET 94028 05/29/202505/29, 08/27/2023, 08/27/2023, Additional history exists Albumin/Creatinine Ratio 07/29/2025 025, 07/27/2021, 01/15/2020, Additional history exists CKD PHOS USE SMARTSET 84043 07/29/202507/18, 10/21/2023, 03/02/2022, Additional history exists Pneumococcal Vaccine: 50+ Years Completed 08/04/2014, 12/29/2009 Zoster Vaccines Completed 11/14/2018, 10/15, 05/30/2018, Additional history exists VITAMIN D LEVEL ONCE IN A LIFETIME-USE SMARTSET# 21873 Completed 07/04/2021, 09/12/2020, 01/11/2020, Additional history exists [...] filedocumented as of this encounter Advance Directives * [...] and were consensually agreed upon. Care Teams Acoustical Material Worker Relationship Specialty Start Date End Date Steve Hooker III, MD [address] [place] [address] PCP - General 01/30/1996 documented as of this encounter
--- OUTSIDE RECORDS SUMMARY | 2024-10-06 00:19 | External Medical Summary | Summary of Care ---
Author Name Unknown Organization [facility] [address] [place] [address] Phone [phone] Care Team Providers Care Microfilm Machine Operator Name Role Phone Nhung LOPEZ MD, Steve Langston Primary Care Provider [phone] Encounter Details Date Type Department Care Team (Late st Contact Info) Description 09/15/2024 Medication Management [facility] [address] [place] [address] Gracie Chávez, [facility] [address] [place], [place] [id number] Allergies Active Allergy Reactions Criticality Noted Date Comments Adhesive Tape 07/05/2022 Doxycycline Nausea/vomiting 11/03/2010 Metoclopramide Hcl Neuro complications (Please comment) 12/07/2010 Developed worsening tremor and lip smacking. Naproxen 01/23/2012 Can not tolerate-gets very emotional and depressed documented as of this encounter (statuses as of 09/16/2024) Medications ASPIRIN 81 MG PO TABS Take [...] Information Patient not taking.Reported on 05/29/2024 Biotin 04150 MCG Oral Tablet Take 1 Tablet by [...] provider. 1 Each 05/26/20 23 Active Depend Nxx-Pxvb-Xfdts-M Use as directed. 30 Each 11 07/03/19 [...] as of this encounter (statuses as of 09/16/2024) Active Problems Problem Noted Date Diagnosed Date [...] 05/26/2023 DM peripheral angiopathy 05/26/2023 Atherosclerosis of [place] co ronary artery without angina pectoris 05/26/2023 [...] in the Comments) Remote Patient Monitoring Vendor: [employer] Device(s): Connected Scale Self - Management Plan [...] SGLT2 Inhibitor: none Remote Patient Monitoring Vendor: C[employer] Device(s): Connected Scale Self - Management Plan [...] SGLT2 Inhibitor: none Remote Patient Monitoring Vendor: C[employer] Device(s): Connected Scale Self - Management Plan [...] 12/22/13 Steve Hooker III, MD [facility] [place] Facet arthropathy, lumbar 10/07/2013 Type 2 diabetes mellitus wit h hemoglobin A1c goal of less than 8.0% 07/15/2013 Overview (10/13/2015): ICD-10 update of inactive term History of tobacco use 02/18/2013 Hearing loss 02/18/2013 DYSLIPIDEMIA, GOAL LDL BELOW 70 05/30/2009 Overview (05/30/2009): Per Lipid Taxonomy. 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 [address] [place] [address], RN [address] [place] [address] Urinary frequency* 09/24/2024 7:00 AM EDT Laboratory Lab Mobile Phlebotomy [address] [place] [address] [facility] Mobile Home Draw [address] [place] [address] [place] [address] 09/25/2024 6:00 AM EDT Anticoagulation Centralized Clinical Pharmacy Services, Alfred Guevara [address] [place] [address] [place] [address] Ccps, [address] [place] [address] 11/11/2024 9:30 AM EDT [facility] Visit [facility] [address] [place] [address], RN [address] [place] [address] Health Maintenance Due Date Last Done Comments [...] 02/01/2015, 11/20/2007, 09/21/1998 CKD HGB USE SMARTSET 91042 05/29/202505/29, 08/27/2023, 08/27/2023, Additional history exists Albumin/Creatinine Ratio 07/29/2025 025, 07/27/2021, 01/15/2020, Additional history exists CKD PHOS USE SMARTSET 56476 07/29/202507/18, 10/21/2023, 03/02/2022, Additional history exists Pneumococcal Vaccine: 50+ Years Completed 08/04/2014, 12/29/2009 Zoster Vaccines Completed 11/14/2018, 10/15, 05/30/2018, Additional history exists VITAMIN D LEVEL ONCE IN A LIFETIME-USE SMARTSET# 25812 Completed 07/04/2021, 09/12/2020, 01/11/2020, Additional history exists [...] and were consensually agreed upon. Care Teams Microfilm Machine Operator Relationship Specialty Start Date End Date Steve Hooker III, MD [address] [facility] [place] [address] PCP - General 01/30/1996 documented as of this encounter
--- OUTSIDE RECORDS SUMMARY | 2024-10-06 00:19 | External Medical Summary ---
Author Name Unknown Address Unknown Organization K01:[facility] [place] [address] [place] [address] Laboratory Report Ordering Provider Test Date Status TORIN ALVARADO III 09/16/2024 10:11:56 Final <10,000 colonies/ml mixed no rmal jack Observation Date Value Abnormality Reference (Units ) Status Bacteria identified in Specimen by Culture 09/16/2024 10:11:56 [id number]^ENTEROC OCCUS SPECIES Abnormal Final 10,000 to 100,000 colonies/m L Enterococcus species Performing Location [facility] [place] [address] [place] [address] Ordering Provider Test Date Status TORIN ALVARADO III 09/16/2024 10:11:56 Final Observation Date Value Abnormality Reference (Units ) Status Ampicillin 09/16/2024 10:11:56 <=2 Susceptible Final Nitrofurantoin susceptibility 09/16/2024 10:11:56 <=16 Susceptible Final Tetracyclinesusceptibility 09/16/2024 10:11:56 >=16 Resistant Final Vancomycinsusceptibility 09/16/2024 10:11:56 1 Susceptible Final Test: Culture, Urine, Quanti tative
Specimen Source: Urine, Clean Catch
Specimen Type: Urine
Specimen Date: 09/16/2024 1011
Result Date: 09/19/2024 0753
Result Status: Final result
Abnormal: Yes
Resulting Lab: [facility] [place]
[address]
[place] [address]

CULTURE

10,000 to 100,000 colonies/mL Enterococcus species (Abnormal)

<10,000 colonies/ml mixed normal jack

SUSCEPTIBILITY

Enterococcus
species
METHOD MICROBROTH
DILUTIONS

AMPICILLIN <=2 Susceptible
NITROFURANTOIN <=16 Susceptible
TETRACYCLINE >=16 Resistant
VANCOMYCIN 1 Susceptible

null Performing Location [facility] [place] [address] [facility] [address]
--- OUTSIDE RECORDS SUMMARY | 2024-10-06 00:19 | External Medical Summary | Summary of Care ---
Author Name Unknown Organization [facility] Address [address] [place] [address] Phone [phone] Care Team Providers Care Service Order Taker Name Role Phone Nhung LOPEZ MD, Steve Langston Primary Care Provider [phone] Encounter Details Date Type Department Care Team ([facility] st Contact Info) Description 09/16/2024 1:30 PM EDT [facility] [address] [place] [address], RN [address] [facility] [place] [address] Urinary frequency* Allergies Active Allergy Reactions Criticality Noted Date Comments Adhesive Tape 07/05/2022 Doxycycline Nausea/vomiting 11/03/2010 Metoclopramide Hcl Neuro complications (Please comment) 12/07/2010 Developed worsening tremor and lip smacking. Naproxen 01/23/2012 Can not tolerate-gets very emotional and depressed documented as of this encounter (statuses as of 09/17/2024) Medications ASPIRIN 81 MG PO TABS Take [...] hemoglobin A1c goal of less than 8.0% ([facility]) Use to test once daily DX E11.9 100 Each 3 07/20/19 21 Active Additional Information Patient not taking.Reported on 05/29/2024 Biotin 26124 MCG Oral Tablet Take 1 Tablet by [...] provider. 1 Each 05/26/20 23 Active Depend Eqt-Dhyc-Yhkro-M Use as directed. 30 Each 11 07/03/19 [...] as of this encounter (statuses as of 09/17/2024) Active Problems Problem Noted Date Diagnosed Date [...] 05/26/2023 DM peripheral angiopathy 05/26/2023 Atherosclerosis of [place] co ronary artery without angina pectoris 05/26/2023 [...] in the Comments) Remote Patient Monitoring Vendor: Kutoto Device(s): Connected Scale Self - Management Plan [...] SGLT2 Inhibitor: none Remote Patient Monitoring Vendor: Kutoto Device(s): Connected Scale Self - Management Plan [...] SGLT2 Inhibitor: none Remote Patient Monitoring Vendor: Kutoto Device(s): Connected Scale Self - Management Plan [...] 12/22/13 Steve Hooker III, MD [facility] Facet arthropathy, lumbar 10/07/2013 Type 2 diabetes mellitus wit h hemoglobin A1c goal of less than 8.0% 07/15/2013 Overview (10/13/2015): ICD-10 update of inactive term History of tobacco use 02/18/2013 Hearing loss 02/18/2013 DYSLIPIDEMIA, GOAL LDL BELOW 70 05/30/2009 Overview (05/30/2009): Per Lipid Taxonomy. 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 Not on file Not on file [employer] Not on file Not on file Not on file documented as of this encounter Last Filed Vital Signs Vital Sign Reading Time Taken Comments Blood Pressure 128/80 09/16/2024 9:44 AM EDT Pulse 64 09/16/2024 9:44 AM EDT Temperature 36.1 °C (97 °F) 09/16/2024 9:44 AM EDT Respiratory Rate 18 09/16/2024 9:44 AM EDT Oxygen Saturation 99% 09/16/2024 9:44 AM EDT Inhaled Oxygen Concentration - - Weight - - Height - - Body Mass Index - - documented in this encounter Progress Notes * Fernanda Lane RN - 09/16/2024 9:34 AM EDT Current Concerns: Patient seen for follow up- CHF, Afib, Pacemaker, left hemiplegia post stroke, DM2, H/O UTI's. Receiving home health services- [facility] health- Unna boots Reports frequency- intermittent burning. Some odor noted. Per patient- she is to give urine specimen. UA obtained- dropped off at [facility] VS wnl Lungs clear bilaterally Sob with exertion Unna boots/ wraps intact LE Bowels wnl Appetite good Taking fluids well Physical Exam: Physical Exam Constitutional: Appearance: Normal appearance. Cardiovascular: Rate and Rhythm: Normal rate and regular rhythm. Pulses: Normal pulses. Pulmonary: Effort: Pulmonary effort is normal. Breath [...] and Affect: Mood normal. Behavior: Behavior normal. Review of Systems: Review of Systems Constitutional: Negative. Respiratory: Positive for shortness of breath. Cardiovascular: Positive for leg swelling. Gastrointestinal: Negative. Genitourinary: Positive for frequency. Musculoskeletal: Positive for arthralgias and gait problem. Hematological: Negative. Psychiatric/Behavioral: Negative. Care Plan Goal Progress: Orders Placed: Plan Urinalysis, Reflex to Culture (Not for Neutropenic Patients) Urinalysis, Reflex to Culture (Cup Only) Urinalysis, Reflex to Culture Medications Given: Care Gaps: Care Gaps Care gaps closed this contact: Education (09/16/24 1607) Type of education: Clinical/disease (09/16/24 3181) documented in this encounter Plan of Treatment Upcoming Encounters Date Type Department Care Team (Late st Contact Info) Description 09/24/2024 7:00 AM EDT Laboratory Lab [facility]le[facility] [address] [place] [address] [facility] Mobile Home Draw [address] [place] [address] [place] [address] 09/25/2024 6:00 AM EDT Anticoagulation [facility], [place] [address] [place] [address] [place] [address] [place] [address] 11/11/2024 9:30 AM EDT Home Visit [facility] [address] [place] [address] RN [address] [place] [address] Pending Results Name Type Priority Associated Diagnoses Date /Time CULTURE, URINE, QUANTITATIVE Lab Routine Urinary frequency 09/16/2024 10:11 AM EDT Health Maintenance Due Date Last Done Comments [...] 02/01/2015, 11/20/2007, 09/21/1998 CKD HGB USE SMARTSET 27064 05/29/202505/29, 08/27/2023, 08/27/2023, Additional history exists Albumin/Creatinine Ratio 07/29/2025 025, 07/27/2021, 01/15/2020, Additional history exists CKD PHOS USE SMARTSET 06536 07/29/202507/18, 10/21/2023, 03/02/2022, Additional history exists Pneumococcal Vaccine: 50+ Years Completed 08/04/2014, 12/29/2009 Zoster Vaccines Completed 11/14/2018, 10/15, 05/30/2018, Additional history exists VITAMIN D LEVEL ONCE IN A LIFETIME-USE SMARTSET# 34487 Completed 07/04/2021, 09/12/2020, 01/11/2020, Additional history exists [...] Procedure Name Priority Date/Time Associated Diagnosis Comments URINALYSIS, REFLEX TO CULTURE Routine 09/16/2024 10:11 AM EDT Urinary frequency URINALYSIS, REFLEX TO CULTURE (CUP ONLY) Routine 09/16/2024 10:11 AM EDT Urinary frequency URINALYSIS, REFLEX TO CULTURE (NOT FOR NEUTROPENIC PATIENTS) Routine 09/16/2024 10:11 AM EDT Urinary frequency documented in this encounter Results * (ABNORMAL) URINALYSIS, REFLEX TO CULTURE (09/16/2024 10:11 AM EDT) Color, Urine Light Yellow Colorless, Light Yellow, Yellow, Dark Yellow 09/16/2024 10:41 PM EDT LAB[facility]ORY [facility] Clarity, Urine Slightly Cloudy(A) Clear 09/16/2024 10:41 PM EDT [facility] Glucose, Urine Negative Negative mg/dL 09/16/2024 10:41 PM EDT [facility] Bilirubin, Urine Negative Negative 09/16/2024 10:41 PM EDT [facility] Ketone, Urine Negative Negative mg/dL 09/16/2024 10:41 PM EDT [facility] Specific [place], Urine 1.015 1.003 - 1.030 09/16/2024 10:41 PM EDT [facility] Blood, Urine Negative Negative 09/16/2024 10:41 PM EDT [facility] pH, Urine 8.0(H) 5.0 - 7.5 Units 09/16/2024 10:41 PM EDT [facility] Protein, Urine Trace(A) Negative mg/dL 09/16/2024 10:41 PM EDT [facility] Urobilinogen, Urine Normal Normal mg/dL 09/16/2024 10:41 PM EDT [facility] Nitrite, Urine Negative Negative 09/16/2024 10:41 PM EDT [place] [facility] [place] Esterase, Urine Large(A) Negative 09/16/2024 10:41 PM EDT [facility] [place] RBC, Urine 0-2 0 - 2 /HPF 09/16/2024 10:41 PM EDT [facility] [place] WBC, Urine 20-29(A) 0 - 2 /HPF 09/16/2024 10:41 PM EDT [facility] [facility] [place] Bacteria, Urine 101-150(A) 0 - 25 /HPF 09/16/2024 10:41 PM EDT [facility] [place] Amorphous Crystals, Urine Many(A) None /HPF 09/16/2024 10:41 PM EDT [facility] [place] Culture, Urine 09/16/2024 10:41 PM EDT [facility] [place] Comment:Quantitative urine c ulture to be performed Urine Urine specimen obtained by clean catch procedure / Unknown Non-blood Collection / Unknown 09/16/2024 10:11 AM EDT 09/16/2024 10:17 AM EDT us Steve Hooker III, MD LAB URINE ORDERABLES Final Result [facility] [facility] [place] [address] [place] [address] * URINALYSIS, REFLEX TO CULTURE (CUP ONLY) (09/16/2024 10:11 AM EDT) Urinalysis, Reflex to Culture Specimen Specimen collected and received 09/16/2024 12:01 PM EDT LABORATORY [facility] Urine Urine specimen obtained by clean catch procedure / Unknown Non-blood Collection / Unknown 09/16/2024 10:11 AM EDT 09/16/2024 10:17 AM EDT Steve Hooker III, MD LAB URINE ORDERABLES Final Result LABORATORY [address] [address] documented in this encounter Visit Diagnoses Diagnosis Advanced care planning/counseling discussion- Primary Other specified counseling Moderate persistent asthma without complication Unspecified asthma Paroxysmal atrial fibrillation (HCC)- Primary Atrial fibrillation Hypertensive heart and kidney 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 and stage 3b chronic kidney disease ([facility]) 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 disturbance, psychotic disturbance, mood disturbance, or anxiety, unspecified dementia severity ([facility]) Cardiac pacemaker in situ Hemiplegia, 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[facility]) Hemiplegia affecting unspecified side, late effect of cerebrovascular disease Major depressive disorder, recurrent episode, mild ([facility]) Major depressive disorder, recurrent episode, mild Polymyalgia rheumatica ([facility]) Polymyalgia rheumatica Hypertensive heart and kidney 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 and stage 3b chronic kidney disease ([facility])- Primary Advanced care planning/counseling discussion Other specified counseling ATHEROSCLEROTIC CORONARY DISEASE Unspecified cardiovascular disease Paroxysmal atrial fibrillation ([facility]) Atrial fibrillation 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[facility]) Sinoatrial node dysfunction Cardiac pacemaker in situ Type 2 diabetes mellitus with stage 3b chronic kidney disease, without long-term current use of insulin ([facility]) DM peripheral angiopathy ([facility]) Type II or unspecified type diabetes mellitus with peripheral circulatory disorders, not stated as uncontrolled Hypertensive heart and kidney 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 and stage 3b chronic kidney disease ([facility])- Primary 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 behavioral disturbance, psychotic disturbance, mood disturbance, or anxiety, unspecified dementia type ([facility]) Paroxysmal atrial fibrillation ([facility]) Atrial fibrillation 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 status epilepticus, unspecified epilepsy type ([facility]) Type 2 diabetes mellitus with diabetic chronic kidney disease, unspecified CKD stage, unspecified whether watermaster insulin use ([facility]) Open-angle glaucoma, unspecified glaucoma stage, unspecified laterality, unspecified open-angle glaucoma type Atherosclerosis of [place] si[place] coronary artery without angina pectoris, unspecified whether ogl[place] si[place] or transplanted heart Hyperparathyroidism, secondary renal (HCC) Secondary hyperparathyroidism (of renal origin) Hemiplegia, 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[facility]) Hemiplegia affecting unspecified side, late effect of cerebrovascular disease Urinary incontinence, unspecified type Hypertensive heart and kidney 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 and stage 3b chronic kidney disease ([facility])- Primary Hemiplegia, 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[facility]) Hemiplegia affecting unspecified side, late effect of cerebrovascular disease 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 behavioral disturbance, psychotic disturbance, mood disturbance, or anxiety, unspecified dementia type ([facility]) Paroxysmal atrial fibrillation (HCC) Atrial fibrillation 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 status epilepticus, unspecified epilepsy type ([facility]) Type 2 diabetes mellitus with stage 3b chronic kidney disease, without long-term current use of insulin ([facility]) Open-angle glaucoma, unspecified glaucoma stage, unspecified laterality, unspecified open-angle glaucoma type Major depressive disorder, recurrent episode, mild (HCC) Major depressive disorder, recurrent episode, mild Atherosclerosis of [place] si[place] coronary artery of [place]gl[place] sioux heart without angina pectoris Hyperparathyroidism, secondary renal [...] and stage 3b chronic kidney disease (HCC) Advanced care planning/counseling discussion Other specified counseling Urinary frequency- Primary documented in this encounter Advance Directives [...] and were consensually agreed upon. Care Teams Service Order Taker Relationship Specialty Start Date End Date Steve Hooker III, MD [address] [facility] [place] [address] PCP - General 01/30/1996 documented as of this encounter
--- OUTSIDE RECORDS SUMMARY | 2024-10-06 00:19 | External Medical Summary | Summary of Care ---
Author Name Unknown Organization [facility] Address [address] [place] [address] Phone [phone] Care Team Providers Care Crotch Piece Baster Name Role Phone Nhung LOPEZ MD, Steve Langston Primary Care Provider [phone] Reason for Visit * Reason Onset Date Comments FYI 09/09/2024 Encounter Details Date Type Department Care Team ([facility] Contact Info) Description 09/09/2024 Telephone Family Practice [facility] [place] [address] [facility] [place] [address] Steve Hooker III, MD [address] [place] [address] FYI Allergies Active Allergy Reactions Criticality Noted Date [...] Information Patient not taking.Reported on 05/29/2024 Biotin 26640 MCG Oral Tablet Take 1 Tablet by [...] provider. 1 Each 05/26/20 23 Active Depend Xln-Afse-Npdrz-M Use as directed. 30 Each 11 07/03/19 [...] 1 5 9:11 AM EST 06/19/19 25 2025 Active Magnesium Oxide -Mg Supplement 400 (240 [...] 5 12:05 PM EDT 08/30/19 25 Active Diclofenac Sodium 1 % External Gel (Voltaren) APPLY 4 GRAMS TOPICALLY TO RIGHT HIP FOUR TIMES A DAY 400 g 3 09/16/19 24 2024 documented as of this encounter (statuses as [...] 05/26/2023 DM peripheral angiopathy 05/26/2023 Atherosclerosis of enterprise co ronary artery without angina pectoris 05/26/2023 [...] in the Comments) Remote Patient Monitoring Vendor: Paratek Device(s): Connected Scale Self - Management Plan [...] SGLT2 Inhibitor: none Remote Patient Monitoring Vendor: Paratek Device(s): Connected Scale Self - Management Plan [...] SGLT2 Inhibitor: none Remote Patient Monitoring Vendor: Paratek Device(s): Connected Scale Self - Management Plan [...] 12/22/13 Steve Hooker III, MD [facility] [place] Facet arthropathy, lumbar 10/07/2013 Type 2 diabetes [...] mRNA, LNP-s, No Pre serve, 2-Dose Series (LaunchKey) 06/01/2021,10/15/2020,09/24/2020 Covid-19, Mrna, Lnp-s, Pf, B ivalent, [...] 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 * Telephone Encounter - Jeannette Gay LPN - 09/13/2024 3:21 PM EDT Left message for patient to return call to clinic. * Telephone Encounter - Steve Hooker III, MD - 09/13/2024 3:01 PM EDT Would want a urine call wonder patient's symptoms? Do not treat asymptomatic bacteriuria * Telephone Encounter - Ranjana Payne OSA - 09/09/2024 2:50 PM EDT Yvon from [employer] did a at home UTI test on the pt and it came back positive asking for something to be called in. If needing a Urine test, it would be be able to get done till next week saumyaey have no availability from other nurses. Please advise. Please call with plan of action before hand * Telephone Encounter - Tonya Martinez OSA - 09/09/2024 2:20 PM EDT Lissette from [facility] calling to advise that Pt had a 2-lb weight gain since visit with nurse yesterday; she reports that yesterday's weight was 161.4 and today's weight is 163.6. Phone number for Lissette is [phone] documented in this encounter Plan of Treatment Upcoming Encounters Date Type Department Care Team (Late st Contact Info) Description 09/16/2024 1:30 PM EDT [facility] [address] [facility] [place] [address], RN [address] [place] [address] 09/24/2024 7:00 AM EDT Laboratory Lab [facility] Phlebotomy [address] [place] [address] [facility] Mobile Home Draw [address] [place] [address] [place] [address] 09/25/2024 6:00 AM EDT Anticoagulation [facility], [facility] [address] [place] [address] [place] [address] [facility], [address] [place] [address] Health Maintenance Due Date Last Done Comments [...] 02/01/2015, 11/20/2007, 09/21/1998 CKD HGB USE SMARTSET 52723 05/29/202505/29, 08/27/2023, 08/27/2023, Additional history exists Albumin/Creatinine Ratio 07/29/2025 025, 07/27/2021, 01/15/2020, Additional history exists CKD PHOS USE SMARTSET 82492 07/29/202507/18, 10/21/2023, 03/02/2022, Additional history exists Pneumococcal Vaccine: 50+ Years Completed 08/04/2014, 12/29/2009 Zoster Vaccines Completed 11/14/2018, 10/15, 05/30/2018, Additional history exists VITAMIN D LEVEL ONCE IN A LIFETIME-USE SMARTSET# 84533 Completed 07/04/2021, 09/12/2020, 01/11/2020, Additional history exists [...] and were consensually agreed upon. Care Teams Crotch Piece Baster Relationship Specialty Start Date End Date Nhung LOPEZ, Steve Langston MD [address] [place] [address] PCP - General 01/30/1996 documented as of this encounter
--- OUTSIDE RECORDS SUMMARY | 2024-10-06 00:19 | External Medical Summary ---
Author Name Unknown Address Unknown Organization K01:LABORATORY [facility] [place] [address] [facility] [address] Laboratory Report Ordering Provider Test Date Status CHRISTIANOTORIN III 09/16/2024 10:11:56 Final Observation Date Value Abnormality Reference (Units) Status Color of Urine by Auto 09/16/2024 10:11:56 Light Yellow Colorless, Light Yellow, Yellow, Dark Yellow Final Clarity, Urine 09/16/2024 10:11:56 Slightly Cloudy Abnormal Clear Final Glucose [Mass/volume] in Urine by Automated test strip 09/16/2024 10:11:56 Negative Negative (mg/dL) Final Bilirubin.total [Presence] in Urine by Automated test strip 09/16/2024 10:11:56 Negative Negative Final Ketones [Mass/volume] in Urine by Automated test strip 09/16/2024 10:11:56 Negative Negative (mg/dL) Final Specific gravity, Urine 09/16/2024 10:11:56 1.015 1.003-1.030 Final Hemoglobin [Presence] in Urine by Automated test strip 09/16/2024 10:11:56 Negative Negative Final pH, Urine 09/16/2024 10:11:56 8.0 Above high normal 5.0-7.5 (Units) Final Protein [Mass/volume] in Urine by Automated test strip 09/16/2024 10:11:56 Trace Abnormal Negative (mg/dL) Final Urobilinogen [Mass/volume] in Urine by Automated test strip 09/16/2024 10:11:56 Normal Normal (mg/dL) Final Nitrite [Presence] in Urine by Automated test strip 09/16/2024 10:11:56 Negative Negative Final Leukocyte esterase [Presence] in Urine by Automated test strip 09/16/2024 10:11:56 Large Abnormal Negative Final RBC, Urine 09/16/2024 10:11:56 0-2 0-2 (/HPF) Final WBC, Urine 09/16/2024 10:11:56 20-29 Abnormal 0-2 (/HPF) Final Bacteria [#/area] in Urine sediment by Microscopy high power field 09/16/2024 10:11:56 101-150 Abnormal 0-25 (/HPF) Final Crystals.amorphous [#/area] in Urine sediment by Microscopy high power field 09/16/2024 10:11:56 Many Abnormal None (/HPF) Final CULTURE, URINE - [facility] 09/16/2024 10:11:56 Final Quantitative urine culture t o be performed Performing Location LABORATORY [facility] [place] - [address] [facility] [address]
--- OUTSIDE RECORDS SUMMARY | 2024-10-06 00:19 | External Medical Summary ---
Author Name Unknown Address Unknown Organization K01:LABORATORY [facility] [place] - [address] [place] [address] Laboratory Report Ordering Provider Test Date Status LOURDES DE GUZMAN 09/28/2024 09:00:00 Final Standing order for pt/inr. < br/>Please draw pt/inr every 1 to 4 weeks as requested
Results to [facility]

Warfarin Therapy
INR: 2.0-3.0 conventional anticoagulation
INR: 2.5-3.5 high intensity anticoagulation Observation Date Value Abnormality Reference (Units ) Status PT 09/28/2024 09:00:00 36.6 Above high normal 11 .6-15.2 (seconds) Final INR 09/28/2024 09:00:00 3.6 Above high normal 0. 8-1.2 Final Performing Location LABORATORY [facility] [place] - [address] [place] [address]
--- OUTSIDE RECORDS SUMMARY | 2024-10-06 00:19 | External Medical Summary | Summary of Care ---
Author Name Unknown Organization [facility] Address [address] [place] [address] Phone [phone] Care Team Providers Care Agronomist Name Role Phone Nhung LOPEZ MD, John E Primary Care Provider [phone] Reason for Referral * Precert (Within 10 days (routine)) - Authorized Specialty Diagnoses / Procedures Referred By Contfélix sim Referred To Contact Radiology Diagnoses Memory loss Abnormal mini-mental status exam Procedures MRI BRAIN MEMORY COGNITION WO CONTRAST Steve Hooker III, MD [address] [place] [address] Phone: tel: fax: Referral ID Status Reason Start Date Expiration Date V isits Requested Visits Authorized [id number] Authorized 09/30/2024 999 999 Reason for Visit * Reason Comments Memory Loss Encounter Details Date Type Department Care Team ([facility] Contact Info) Description 09/30/2024 12:00 PM EDT Office Visit Family Practice [facility] [place] [address] [place] [phone] Steve Hooker III, MD [address] [place] [id number] Memory loss*; Abnormal mini-mental status exam Allergies Active Allergy Reactions Criticality Noted Date Comments Adhesive Tape 07/05/2022 Doxycycline Nausea/vomiting 11/03/2010 Metoclopramide Hcl Neuro complications (Please comment) 12/07/2010 Developed worsening tremor and lip smacking. Naproxen 01/23/2012 Can not tolerate-gets very emotional and depressed documented as of this encounter (statuses as of 09/30/2024) Medications ASPIRIN 81 MG PO TABS Take [...] hemoglobin A1c goal of less than 8.0% ([facility]) Use to test once daily DX E11.9 100 Each 3 07/20/19 21 Active Additional Information Patient not taking.Reported on 05/29/2024 Biotin 88252 MCG Oral Tablet Take 1 Tablet by [...] provider. 1 Each 05/26/20 23 Active Depend Uii-Ymby-Seytk-M Use as directed. 30 Each 11 07/03/19 [...] 1 5 2:33 PM EDT 06/19/19 25 2025 Active Magnesium Oxide -Mg [...] TAKE 1/2 TABLET BY MOUTH AT BEDTIME 50 Tablet 3 10/01/19 25 Active buPROPion HCl ER (SR) 100 MG Oral Tablet Extended Release 12 Hour (Wellbutrin SR) Take 1 Tablet by mouth in the morning. 30 Tablet 11 5 12:05 PM EDT 09/08/19 24 2024 Disconti nued(Ref ill) traZODone HCl 50 MG Oral Tablet (Desyrel) TAKE 1/2 TABLET BY MOUTH AT BEDTIME 45 Tablet 1 5 12:05 PM EST 04/03/20 24 2024 Disconti nued(Ref ill) documented as of this encounter (statuses as of 09/30/2024) Active Problems Problem Noted Date Diagnosed Date [...] 05/26/2023 DM peripheral angiopathy 05/26/2023 Atherosclerosis of squaxin co ronary artery without angina pectoris 05/26/2023 [...] in the Comments) Remote Patient Monitoring Vendor: [facility] Device(s): Connected Scale [...] SGLT2 Inhibitor: none Remote Patient Monitoring Vendor: [employer] Device(s): Connected Scale Self - Management Plan [...] SGLT2 Inhibitor: none Remote Patient Monitoring Vendor: [employer] Device(s): Connected Scale Self - Management Plan [...] 12/22/13 Steve Hooker III, MD [facility] [place] Facet arthropathy, lumbar 10/07/2013 Type 2 diabetes mellitus wit h hemoglobin A1c goal of less than 8.0% 07/15/2013 Overview (10/13/2015): ICD-10 update of inactive term History of tobacco use 02/18/2013 Hearing loss 02/18/2013 DYSLIPIDEMIA, GOAL LDL BELOW 70 05/30/2009 Overview (05/30/2009): Per Lipid Taxonomy. S/P angioplasty with stent 09/05/2002 documented as of this encounter (statuses as of 09/30/2024) Resolved Problems Problem Noted Date Diagnosed Date [...] Overview (07/13/2009): Per HTN Taxonomy. Mixed dyslipidemia Overview (05/30/2009): Per Lipid Taxonomy. 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, secondary renal ([facility]) Gastroesophageal reflux disease without esophagitis Unspecified open-angle glaucoma, stage unspecified Cardiac pacemaker in situ Hemiplegia, 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[facility]) Major depressive disorder, recurrent episode, mild ([facility]) Paroxysmal atrial fibrillation ([facility]) Hypertensive heart and kidney 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 and stage 3b chronic kidney disease ([facility]) Age-related osteoporosis without current pathological fracture Unspecified dementia, unspecified severity, without behavioral disturbance, psychotic disturbance, mood disturbance, and anxiety ([facility]) Advanced care planning/counseling discussion 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 On Saturday, Saturday, Saturday only 0 0 PROBIOTIC PO CAPS daily DOCQLACE 100 MG PO CAPS TAKE TWO [...] every 8 hours as needed forGas. Biotin 35768 MCG Oral Tablet Take 1 Tablet by mouth daily. Cetirizine HCl 10 MG Oral Tablet Take 1 Tablet by mouth in the morning. Vitamin D 50 MCG (2000 UT) Oral Tablet Take 2,000 Units by mouth in the morning. DIURETIC TITRATION PLAN If no improvement on day 3, contact heart failure managing provider. 1 Each0 Depend Vcq-Ttra-Rhftz-M Use as directed. 30 Each 11 Triamcinolone Acetonide 0.1 % External Ointment (Aristocort) Apply topically to affected area 2 times a day. 60 g 5 Warfarin Sodium 4 MG Oral Tablet (Coumadin) TAKE ONE TO ONE AND ONE-HALF TABLETS BY MOUTH EVERY DAYAS DIRECTED BY ANTICOAGULATION PHARMACIST 135 Tablet 3 Omeprazole 20 MG Oral Capsule Delayed Release (PriLOSEC) TAKE ONE CAPSULE BY MOUTH IN THE MORNING 30 MINUTES BEFORE THE FIRST MEAL OF THE DAY 100 Capsule 1 Magnesium Oxide -Mg Supplement 400 (240 Mg) MG Oral Tablet (Mag-Ox) take 1 tablet by mouth every morning 90 Tablet 2 levETIRAcetam 500 MG Oral Tablet (Keppra) Take 1 Tablet by mouth in the morning and 1 Tablet beforebedtime. 180 Tablet 1 Isosorbide Mononitrate ER 30 MG Oral Tablet Extended Release 24 Hour (Imdur) TAKE ONE TABLET BY MOUTH EVERY DAY IN THE MORNING 100 Tablet 1 Atorvastatin Calcium 40 MG Oral Tablet (Lipitor) TAKE ONE TABLET BY MOUTH EVERY DAY 100 Tablet 3 Metoprolol Succinate ER 25 MG Oral Tablet Extended Release 24 Hour (toPROL XL) Take 1 Tablet by mouth in the morning. 100 Tablet 0 Potassium Chloride Elvi ER 10 MEQ Oral Tablet Extended Release Take 1 Tablet by mouth daily. 100 Tablet 3 DULoxetine HCl 60 MG Oral Capsule Delayed Release Particles (Cymbalta) TAKE ONE CAPSULE BY MOUTH EVERY MORNING DO NOT CUT, CRUSH OR CHEW 90 Capsule 3 Torsemide 20 MG Oral Tablet (Demadex) Take 1 Tablet by mouth in the morning and 1 Tablet in the evening. 90 Tablet 1 oxyCODONE-Acetaminophen 10-325 MG Oral Tablet Take 1 Tablet by mouth every 6 hours as needed for Pain, Severe. 120 Tablet 0 buPROPion HCl ER (SR) 100 MG Oral Tablet Extended Release 12 Hour (Wellbutrin SR) Take 1 Tablet by mouth in the morning. 100 Tablet 3 traZODone HCl 50 MG Oral Tablet (Desyrel) TAKE 1/2 TABLET BY MOUTH AT BEDTIME 50 Tablet 3 [employer] Lancets 30G Use to test once daily DX E11.9 (Patient not taking: Reported on 05/29/2024) 100 Each 3 OneTouch Ultra Blue In Vitro Strip (Glucose Blood) Use to test once daily DX E11.9 (Patient not taking: Reported on 05/29/2024) 100 Strip 3 No current facility-administered medications for this visit. Past Medical History: Diagnosis Date Asthma, mild [...] 09/29/2013 COLONOSCOPY FLEXIBLE PROXIMAL DIAGNOSTIC performed by Aiadn Ferrera DO at ENDOSCOPY [facility] CORONARY ARTERY DILATION, BALLOON 1994 PTCA CYSTO/URETERO W/LITHOTRIPSY Left 03/08/2017 CYSTOURETHROSCOPY URETEROSCOPY WITH LITHOTRIPSY AND STENT INSERTION performed by Lea Villasenor MD at OR [facility] CYSTO/URETERO W/LITHOTRIPSY Left 03/22/2017 CYSTOURETHROSCOPY URETEROSCOPY WITH LITHOTRIPSY AND STENT INSERTION performed by Lea Villasenor MD at OR [facility] CYSTOSCOPY 05-16-2015 DIABETIC EYE EXAM 03/10/13 EGD, FLEXIBLE, DIAGNOSTIC 10/09/2010 hiatal hernia HEMORRHOIDECTOMY, SIMPLE, 1 COLUMN 10/16/2013 HEMORRHOIDECTOMY EXTERNAL AND INTERNAL SIMPLE performed by Neri Heaton MD at OR [facility] INFORMATION 11.7.02 intravitreal kenalog injection left eye for macular edema INFORMATION foot surgery bilateral INJECT DX/THER SUBSTANCE INTERLAMINAR LUMBAR/SACRAL W IMAGE GUIDE 04/13/2019 INJECTION SPINE LUMBAR OR SACRAL performed by Fredrick Mcdaniels DO at OR [facility] KNEE ARTHROSCOPY, DIAGNOSTIC Left L-/S-SPINE PARAVERTEBRAL FACET INJ,1 LEVEL 03/02/2019 L-/S-SPINE PARAVERTEBRAL FACET INJ, 1 LEVEL performed by Fredrick Mcdaniels, at OR [facility] L-/S-SPINE PARAVERTEBRAL FACET INJ,1 LEVEL 06/01/2019 L-/S-SPINE PARAVERTEBRAL FACET INJ, 1 LEVEL performed by Fredrick Mcdaniels, at OR [facility] LAPAROSCOPY; CHOLECYSTECTOMY 08/17/10 Dr. Messina LIGATE/CUT OVIDUCT(S) [...] INJECTION SACROILIAC JOINT performed by Fredrick Mcdaniels, at OR [facility] SLEEP STUDY, W/O CPAP (APNEA SCREEN) 03/2007 negative STRESS ECHO (DOBUTAMINE) 10/26/09 LVH, EF 65-70%, mild L ventricular wall thickness, LV diastolic dysfunction- stage I, L atrium mildenlarged TOTAL HYSTERECTOMY 1977 [place] (Total Abdominal Hysterectomy) Review of patient's allergies indicates: Allergen Reactions Adhesive Tape Doxycycline Nausea/vomiting Metoclopramide Hcl Neuro complications (Please comment) Developed worsening tremor and lip smacking. Naprosyn [Naproxen] Can not tolerate-gets very emotional and depressed Objective: BP 135/85 | Pulse 60 | Wt 165 lb (74.8 kg) | BMI 29.70 kg/m² | BSA 1.82 m² Physical Exam: General: alert and no distress Heart: regular rate & rhythm, no murmur, and no gallops Lungs: lungs clear to auscultation ASSESSMENT/PLAN: Memory loss (Primary) - TSH WITH FREE T4 IF INDICATED; Future; Expected date: 09/30/2024 - VITAMIN B12; Future; Expected date: 09/30/2024 - CBC; Future; Expected date: 09/30/2024 - MRI BRAIN MEMORY COGNITION WO CONTRAST; Future; Expected date: 09/30/2024 Abnormal mini-mental status exam - TSH WITH FREE T4 IF INDICATED; Future; Expected date: 09/30/2024 - VITAMIN B12; Future; Expected date: 09/30/2024 - CBC; Future; Expected date: 09/30/2024 - MRI BRAIN MEMORY COGNITION WO CONTRAST; Future; Expected date: 09/30/2024 Other orders - buPROPion HCl ER (SR) 100 MG Oral Tablet Extended Release 12 Hour (Wellbutrin SR); Take 1 Tablet by mouth in the morning. - traZODone HCl 50 MG Oral Tablet (Desyrel); TAKE 1/2 TABLET BY MOUTH AT BEDTIME Further recommendations after studies discussed Aricept Steve Hooker III, MD * Aaliyah Centeno RN - 09/30/2024 11:54 AM EDT Pt has forgetfulness and confusion. documented in this encounter Plan of Treatment Upcoming Encounters Date Type Department Care Team (Late st Contact Info) Description 10/01/2024 4:20 PM EDT Home Visit Care Coordination and Integration [address] [place] [address] Lea Pace, [facility] Day Light Relief Operator [address] [place] [place] [address] 10/12/2024 7:05 AM EDT Laboratory Lab Mobile Phlebotomy [address] [place] [address] [facility] Mobile Home Draw [address] [place] [address] [place] [address] 10/13/2024 6:00 AM EDT Anticoagulation [facility], Alfred Guevara [address] [place] [address] [place] [address] [place] [address] 11/11/2024 9:30 AM EDT Home Visit [facility], [facility] [address] [place] [address], RN [address] [place] [address] [id number] Scheduled Orders Name Type Priority Associated Diagnoses Orde r Schedule TSH WITH FREE T4 IF INDICATED Lab Routine Memory loss Abnormal mini-mental status exam Expected: 09/30/2024 (Approximate), Expires: 09/30/2025 VITAMIN B12 Lab Routine Memory loss Abnormal mini-mental status exam Expected: 09/30/2024 (Approximate), Expires: 09/30/2025 CBC Lab Routine Memory loss Abnormal mini-mental status exam Expected: 09/30/2024 (Approximate), Expires: 09/30/2025 MRI BRAIN MEMORY COGNITION WO CONTRAST Medical Imaging Routine Memory loss Abnormal mini-mental status exam Expected: 09/30/2024, Expires: 10/30/2025 Health Maintenance Due Date Last Done Comments [...] 02/01/2015, 11/20/2007, 09/21/1998 CKD HGB USE SMARTSET 72075 05/29/202505/29, 08/27/2023, 08/27/2023, Additional history exists Albumin/Creatinine Ratio 07/29/2025 025, 07/27/2021, 01/15/2020, Additional history exists CKD PHOS USE SMARTSET 36897 07/29/202507/18, 10/21/2023, 03/02/2022, Additional history exists Pneumococcal Vaccine: 50+ Years Completed 08/04/2014, 12/29/2009 Zoster Vaccines Completed 11/14/2018, 10/15, 05/30/2018, Additional history exists VITAMIN D LEVEL ONCE IN A LIFETIME-USE SMARTSET# [id number] Completed 07/04/2021, 09/12/2020, 01/11/2020, Additional history exists [...] this encounter Medical Devices Implanted Type Area Nut Roaster Device Identifier Shelf Expiration Date Model / Serial / Lot Shoshana Xt Dr Mri-11/16/2019 Implanted: 020 by Unique Hook DO (Quantity not on file) [employer] : CARDIAC SURGERY [id number] / [id number] / Description:[email or web address] 09/30/24 1.5 OR [...] file) [employer] : CARDIAC SURGERY 5076-45 / [id number] / Description:[email or web address] AJR 09/30/24 1.5 OR [...] file) [employer] : CARDIAC SURGERY [id number] / [id number] / Description:[email or web address] AJR 09/30/24 1.5 OR 3T 1.5T - NOM 3T - NOM OR FLCOM, B1+YOAN MUST BE LESS THAN OR EQUAL TO 2.8 MICROTESLA WHEN THE ISOCENTER IS INFERIOR TO THE C7 VERTEBRA. 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[facility]) Sinoatrial node dysfunction Cardiac pacemaker in situ Type 2 diabetes mellitus with stage 3b chronic kidney disease, without long-term current use of insulin ([facility]) DM peripheral angiopathy ([facility]) Type II or unspecified type diabetes mellitus with peripheral circulatory disorders, not stated as uncontrolled Hypertensive heart and kidney 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 and stage 3b chronic kidney disease ([facility])- Primary 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 behavioral disturbance, psychotic disturbance, mood disturbance, or anxiety, unspecified dementia type ([facility]) Paroxysmal atrial fibrillation ([facility]) Atrial fibrillation 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 status epilepticus, unspecified epilepsy type ([facility]) Type 2 diabetes mellitus with diabetic chronic kidney disease, unspecified CKD stage, unspecified whether terminal press operator insulin use ([facility]) Open-angle glaucoma, unspecified glaucoma stage, unspecified laterality, unspecified open-angle glaucoma type 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, unspecified whether squaxin or transplanted heart Hyperparathyroidism, secondary renal ([facility]) Secondary hyperparathyroidism (of renal origin) Hemiplegia, 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[facility]) Hemiplegia affecting unspecified side, late effect of cerebrovascular disease Urinary incontinence, unspecified type Hypertensive heart and kidney 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 and stage 3b chronic kidney disease ([facility])- Primary Hemiplegia, 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[facility]) Hemiplegia affecting unspecified side, late effect of cerebrovascular disease 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 behavioral disturbance, psychotic disturbance, mood disturbance, or anxiety, unspecified dementia type ([facility]) Paroxysmal atrial fibrillation ([facility]) Atrial fibrillation 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 status epilepticus, unspecified epilepsy type ([facility]) Type 2 diabetes mellitus with stage 3b chronic kidney disease, without long-term current use of insulin ([facility]) Open-angle glaucoma, unspecified glaucoma stage, unspecified laterality, unspecified open-angle glaucoma type Major depressive disorder, recurrent episode, mild ([facility]) Major depressive disorder, recurrent episode, mild Atherosclerosis of squaxin coronary artery of squaxin heart without angina pectoris Hyperparathyroidism, secondary renal (HCC) Secondary hyperparathyroidism (of renal origin) Age-related osteoporosis without current pathological fracture Senile osteoporosis Lymphedema Other lymphedema Fall in home, initial encounter- Primary Traumatic ecchymosis of right hip, initial encounter 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 behavioral disturbance, psychotic disturbance, mood disturbance, or anxiety, unspecified dementia type ([facility]) Hypertensive heart and kidney 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 and stage 3b chronic kidney disease (HCC) Advanced care planning/counseling discussion Other specified counseling Memory loss- Primary Abnormal mini-mental status exam Altered mental status documented in this encounter Advance Directives * [...] and were consensually agreed upon. Care Teams Agronomist Relationship Specialty Start Date End Date Steve Hooker III, MD [address] [place] [address] PCP - General 01/30/1996 documented as of this encounter
--- OUTSIDE RECORDS SUMMARY | 2024-10-06 00:20 | External Medical Summary | Summary of Care ---
Author Name Unknown Organization [facility] Address [address] [place] [address] Phone [phone] Care Team Providers Care Pantry Cook Name Role Phone Nhung LOPEZ MD, Steve Langston Primary Care Provider [phone] Encounter Details Date Type Department Care Team ([facility] st Contact Info) Description 09/03/2024 Result Scan Unspecified Department Adam Magallanes MD [address] [place] [address] <No scans attached> Allergies Active Allergy Reactions Criticality Noted Date Comments Adhesive Tape 07/05/2022 Doxycycline Nausea/vomiting 11/03/2010 Metoclopramide Hcl Neuro complications (Please comment) 12/07/2010 Developed worsening tremor and lip smacking. Naproxen 01/23/2012 Can not tolerate-gets very emotional and depressed documented as of this encounter (statuses as of 09/04/2024) Medications ASPIRIN 81 MG PO TABS Take [...] goal of less than 8.0% ([facility]) Use to test once daily DX E11.9 100 Each 3 07/20/19 21 Active Additional Information Patient not taking.Reported on 05/29/2024 Biotin 81293 MCG Oral Tablet Take 1 Tablet by [...] provider. 1 Each 05/26/20 23 Active Depend Ahd-Hovh-Lyxee-M Use as directed. 30 Each 11 07/03/19 24 Active buPROPion HCl ER (SR) 100 MG Oral Tablet Extended Release 12 Hour (Wellbutrin SR) Take 1 Tablet by mouth in the morning. 30 Tablet 11 5 12:05 PM EDT 09/08/19 24 Active Diclofenac Sodium 1 % External Gel (Voltaren) APPLY 4 GRAMS TOPICALLY TO RIGHT HIP FOUR TIMES A DAY 400 g 3 09/16/19 24 025 Active Triamcinolone Acetonide 0.1 % External Ointment [...] as of this encounter (statuses as of 09/04/2024) Active Problems Problem Noted Date Diagnosed Date [...] 05/26/2023 DM peripheral angiopathy 05/26/2023 Atherosclerosis of [place] co ronary artery without angina pectoris 05/26/2023 [...] in the Comments) Remote Patient Monitoring Vendor: [employer] Device(s): Connected Scale Self - Management Plan [...] SGLT2 Inhibitor: none Remote Patient Monitoring Vendor: [employer] Device(s): Connected Scale Self - Management Plan [...] SGLT2 Inhibitor: none Remote Patient Monitoring Vendor: [employer] Device(s): Connected Scale Self - Management Plan [...] 12/22/13 Steve Hooker III, MD [facility] [place] Facet arthropathy, lumbar 10/07/2013 Type 2 diabetes mellitus wit h hemoglobin A1c goal of less than 8.0% 07/15/2013 Overview (10/13/2015): ICD-10 update of inactive term History of tobacco use 02/18/2013 Hearing loss 02/18/2013 DYSLIPIDEMIA, GOAL LDL BELOW 70 05/30/2009 Overview (05/30/2009): Per Lipid Taxonomy. 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 Not on file Not on file Not on file [employer] Not on file Not on file Not on file documented as of this encounter Plan of Treatment Upcoming Encounters Date Type Department Care Team (Late st Contact Info) Description 09/08/2024 7:30 AM EDT Laboratory Lab [facility] [address] [place] [address] [facility] Mobile Home Draw [address] [place] [address] [place] [address] 09/11/2024 6:00 AM EDT Anticoagulation Centralized Clinical Pharmacy Services, Alfred [address] [place] [address] [place] [address] 09/16/2024 1:30 PM EDT Home Visit ising at [facility] [address] [facility] [place] [address], RN 132 [facility] [place] [id number] Health Maintenance Due Date Last Done Comments [...] 02/01/2015, 11/20/2007, 09/21/1998 CKD HGB USE SMARTSET 43640 05/29/202505/29, 08/27/2023, 08/27/2023, Additional history exists Albumin/Creatinine Ratio 07/29/2025 025, 07/27/2021, 01/15/2020, Additional history exists CKD PHOS USE SMARTSET 36605 07/29/202507/18, 10/21/2023, 03/02/2022, Additional history exists Pneumococcal Vaccine: 50+ Years Completed 08/04/2014, 12/29/2009 Zoster Vaccines Completed 11/14/2018, 10/15, 05/30/2018, Additional history exists VITAMIN D LEVEL ONCE IN A LIFETIME-USE SMARTSET# 08732 Completed 07/04/2021, 09/12/2020, 01/11/2020, Additional history exists [...] Date/Time Associated Diagnosis Comments CARDIOLOGY SCANNED RESULT 09/03/2024 documented in this encounter Results * CARDIOLOGY SCANNED RESULT (09/03/2024) 09/03/2024 Adam Magallanes MD OTHER Final Result documented in this encounter Advance Directives * [...] and were consensually agreed upon. Care Teams Pantry Cook Relationship Specialty Start Date End Date Steve Hooker III, MD [address] [place] [address] PCP - General 01/30/1996 documented as of this encounter
--- OUTSIDE RECORDS SUMMARY | 2024-10-06 00:20 | External Medical Summary | Summary of Care ---
Author Name Unknown Organization [facility] Address [address] [place] [address] Phone [phone] Care Team Providers Care Answerer Name Role Phone Nhung LOPEZ MD, Steve Langston Primary Care Provider [phone] Reason for Visit * Reason Onset Date Comments Advice 08/28/2024 Encounter Details Date Type Department Care Team ([facility] st Contact Info) Description 08/28/2024 Telephone Family Practice [facility] [place] [address] [facility] [place] [address] Steve Hooker III, MD [address] [facility] [place] [address] Advice Allergies Active Allergy Reactions Criticality Noted Date Comments Adhesive Tape 07/05/2022 Doxycycline Nausea/vomiting 11/03/2010 Metoclopramide Hcl Neuro complications (Please comment) 12/07/2010 Developed worsening tremor and lip smacking. Naproxen 01/23/2012 Can not tolerate-gets very emotional and depressed documented as of this encounter (statuses as of 09/03/2024) Medications ASPIRIN 81 MG PO TABS Take [...] goal of less than 8.0% ([facility]) Use to test once daily DX E11.9 100 Each 3 07/20/19 21 Active Additional Information Patient not taking.Reported on 05/29/2024 Biotin 44247 MCG Oral Tablet Take 1 Tablet by [...] provider. 1 Each 05/26/20 23 Active Depend Pcv-Tfpo-Vfbel-M Use as directed. 30 Each 11 07/03/19 [...] as of this encounter (statuses as of 09/03/2024) Active Problems Problem Noted Date Diagnosed Date [...] 05/26/2023 DM peripheral angiopathy 05/26/2023 Atherosclerosis of [place] co ronary artery without angina pectoris 05/26/2023 [...] in the Comments) Remote Patient Monitoring Vendor: [employer] creations Device(s): Connected Scale Self - Management Plan [...] SGLT2 Inhibitor: none Remote Patient Monitoring Vendor: [employer] Device(s): Connected Scale Self - Management Plan [...] SGLT2 Inhibitor: none Remote Patient Monitoring Vendor: [employer] Device(s): Connected Scale Self - Management Plan [...] 12/22/13 Steve Hooker III, MD [facility] [place] Facet arthropathy, lumbar 10/07/2013 Type 2 diabetes mellitus wit h hemoglobin A1c goal of less than 8.0% 07/15/2013 Overview (10/13/2015): ICD-10 update of inactive term History of tobacco use 02/18/2013 Hearing loss 02/18/2013 DYSLIPIDEMIA, GOAL LDL BELOW 70 05/30/2009 Overview (05/30/2009): Per Lipid Taxonomy. 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 Verbal order given. Orders will be faxed for Nhung to sign. She also collected urine speciman and took it to [facility]. [facility] will fax results to us. FYI. * Telephone Encounter - Steve Hooker III, MD - 08/29/2024 8:29 AM EDT Getting physical therapy? Yes not that might be warranted my cut down falls * Telephone Encounter - Lisa Cardoso OSA - 08/28/2024 12:18 PM EDT Mary ( [facility] ) calling in to report fall yesterday , She was getting off recliner and fell and hit her head on tv . No bruising . Skin tear on right elbow and bruise on right hip. There are no open areas on head and didn't go to the ED . She will be sending information through fax as well documented in this encounter Plan of Treatment Upcoming Encounters Date Type Department Care Team (Late st Contact Info) Description 09/08/2024 7:30 AM EDT Laboratory Lab Mobile Phlebotomy [address] [place] [address] [facility] Mobile Home Draw [address] [place] [address] [place] [address] 09/11/2024 6:00 AM EDT Anticoagulation Centralized Clinical Pharmacy Services, Alfred Guevara [address] [place] [address] [place] [address] [address], [address] [place] [address] 09/16/2024 1:30 PM EDT [facility] Visit [facility], [facility] [address] [place] [address], IM[facility] [address] [place] [address] Health Maintenance Due Date Last Done Comments [...] 02/01/2015, 11/20/2007, 09/21/1998 CKD HGB USE SMARTSET 85528 05/29/202505/29, 08/27/2023, 08/27/2023, Additional history exists Albumin/Creatinine Ratio 07/29/2025 025, 07/27/2021, 01/15/2020, Additional history exists CKD PHOS USE SMARTSET 68838 07/29/202507/18, 10/21/2023, 03/02/2022, Additional history exists Pneumococcal Vaccine: 50+ Years Completed 08/04/2014, 12/29/2009 Zoster Vaccines Completed 11/14/2018, 10/15, 05/30/2018, Additional history exists VITAMIN D LEVEL ONCE IN A LIFETIME-USE SMARTSET# 22081 Completed 07/04/2021, 09/12/2020, 01/11/2020, Additional history exists [...] and were consensually agreed upon. Care Teams Answerer Relationship Specialty Start Date End Date Steve Hooker III, MD [address] [facility] [place] [address] PCP - General 01/30/1996 documented as of this encounter
--- OUTSIDE RECORDS SUMMARY | 2024-10-06 00:20 | External Medical Summary | Summary of Care ---
Author Name Unknown Organization [facility] Address [address] [facility] [place] [address] Phone [phone] Care Team Providers Care Literary Writer Name Role Phone Nhung LOPEZ MD, Steve Langston Primary Care Provider [phone] Reason for Visit * Reason Comments Dosage Adjustment Via Phone (anticoag Cl inic) Encounter Details Date Type Department Care Team ([facility] st Contact Info) Description 09/11/2024 6:00 AM EDT Anticoagulation Centralized Clinical Pharmacy Services, Alfred Guevara [address] [place] [address] [place] [address] [facility], [address] [place] [address] Anticoagulation management encounter* Allergies Active Allergy Reactions Criticality Noted Date Comments Adhesive Tape 07/05/2022 Doxycycline Nausea/vomiting 11/03/2010 Metoclopramide Hcl Neuro complications (Please comment) 12/07/2010 Developed worsening tremor and lip smacking. Naproxen 01/23/2012 Can not tolerate-gets very emotional and depressed documented as of this encounter (statuses as of 09/11/2024) Medications ASPIRIN 81 MG PO TABS Take [...] goal of less than 8.0% ([facility]) Use to test once daily DX E11.9 100 Each 3 07/20/19 21 Active Additional Information Patient not taking.Reported on 05/29/2024 Biotin 15029 MCG Oral Tablet Take 1 Tablet by [...] provider. 1 Each 05/26/20 23 Active Depend One-Jqkg-Frhby-M Use as directed. 30 Each 11 07/03/19 [...] as of this encounter (statuses as of 09/11/2024) Active Problems Problem Noted Date Diagnosed Date [...] 05/26/2023 DM peripheral angiopathy 05/26/2023 Atherosclerosis of [place] co ronary artery without angina pectoris 05/26/2023 [...] in the Comments) Remote Patient Monitoring Vendor: [employer] Device(s): Connected Scale Self - Management Plan [...] SGLT2 Inhibitor: none Remote Patient Monitoring Vendor: [employer] Device(s): Connected Scale Self - Management Plan [...] Regimen: Beta Zayra Therapy: Metoprolol Succinate (ER) MRAISABEL Inhibitor/ARB Therapy: none Diuretic therapy: Torsemide SGLT2 Inhibitor: none Remote Patient Monitoring Vendor: [employer] Device(s): Connected Scale Self - Management Plan [...] 12/22/13 Steve Hooker III, MD [facility] [place] Facet arthropathy, lumbar 10/07/2013 Type 2 diabetes mellitus wit h hemoglobin A1c goal of less than 8.0% 07/15/2013 Overview (10/13/2015): ICD-10 update of inactive term History of tobacco use 02/18/2013 Hearing loss 02/18/2013 DYSLIPIDEMIA, GOAL LDL BELOW 70 05/30/2009 Overview (05/30/2009): Per Lipid Taxonomy. 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 PT/INR results, Coumadin dose instructions, and next PT/INR date communicated as noted by Pharmacist: Yes NAI CORDOVA CPhT 09/11/2024, 8:07 AM * Lea Espana [facility] - 09/11/2024 7:56 AM EDT Images from the original note were not included. Coumadin Clinic (region specific) Objective Current Warfarin Dose As of 09/11/2024 Warfarin maintenance plan: 4 mg (4 mg x 1) every Tue, Myrna; 6 mg (4 mg x 1.5) all other days INR Result As of 09/11/2024 INR goal: 2.0-3.0 INR used for dosin.6 (09/10/2024) Assessment & Plan Warfarin Plan As of 09/11/2024 Full warfarin instructions: 09/11: 10 mg; Otherwise 4 mg every Sat, Myrna; 6 mg all other days Next INR check: 09/24/2024 Repeat PT/INR in 2 week(s) Weekly dose: not changed Additional Dosing Information: Description GML - Call Rufino with results/dosing Amiodarone decreased 01/2021 Tech to contact patient with dose instructions as noted. Lea Espana RPh 09/11/2024, 7:56 AM documented in this encounter Plan of Treatment Upcoming Encounters Date Type Department Care Team (Late st Contact Info) Description 09/16/2024 1:30 PM EDT [facility], [facility] [place] [address] RN [address] [place] [address] 09/25/2024 6:00 AM EDT Anticoagulation Centralized Clinical Pharmacy Services, Alfred Guevara [address] [place] [address] [place] [address] [facility], [address] [place] [address] Health Maintenance Due Date Last Done Comments Adult Wellness Visit 09/16/2019 09/15/2018 Depression Monitoring 09/16/2019 09/15/2018 Diabetic Foot Exam 09/12/2021 09/12/2020, 0 12/09/2019, 01/07/2019, Additional history exists *BISPHONATE OR OTHER ACCEPTABLE MEDICATION NEEDED FOR OSTEOPOROSIS (REFER TO SMARTSET #1146) 02/17/2022 DXA Scan 12/27/2023 12/26/2021, 12/15, 05/26/2014, Additional history exists COVID-19 Vaccine () 02/16/2024 07/12/2022, 06/01/2021, 10/15/2020, Additional history exists Diabetic Eye Exam 06/07/2024 06/07/2023, , 06/07/2023, Additional history exists HbA1c 01/26/2025 07/29/2024, 04/17, 10/21/2023, Additional history exists DTap/Tdap Vaccines (2 - Td or Tdap) 02/01/2025 02/01/2015, 11/20/2007, 09/21/1998 CKD HGB USE SMARTSET 30046 05/29/202505/29, 08/27/2023, 08/27/2023, Additional history exists Albumin/Creatinine Ratio 07/29/2025 025, 07/27/2021, 01/15/2020, Additional history exists CKD PHOS USE SMARTSET 05069 07/29/202507/18, 10/21/2023, 03/02/2022, Additional history exists Pneumococcal Vaccine: 50+ Years Completed 08/04/2014, 12/29/2009 Zoster Vaccines Completed 11/14/2018, 10/15, 05/30/2018, Additional history exists VITAMIN D LEVEL ONCE IN A LIFETIME-USE SMARTSET# 82598 Completed 07/04/2021, 09/12/2020, 01/11/2020, Additional history exists [...] mood disturbance, or anxiety, unspecified dementia severity ([facility]) Cardiac pacemaker in situ Hemiplegia, 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[facility]) Hemiplegia affecting unspecified side, late effect of cerebrovascular disease Major depressive disorder, recurrent episode, mild (HCC) Major depressive disorder, recurrent episode, mild Polymyalgia rheumatica ([facility]) Polymyalgia rheumatica Hypertensive heart and kidney 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 and stage 3b chronic kidney disease ([facility])- Primary Advanced care planning/counseling discussion Other specified counseling ATHEROSCLEROTIC CORONARY DISEASE Unspecified cardiovascular disease Paroxysmal atrial fibrillation ([facility]) Atrial fibrillation 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[facility]) Sinoatrial node dysfunction Cardiac pacemaker in situ Type 2 diabetes mellitus with stage 3b chronic kidney disease, without long-term current use of insulin ([facility]) DM peripheral angiopathy ([facility]) Type II or unspecified type diabetes mellitus with peripheral circulatory disorders, not stated as uncontrolled Hypertensive heart and kidney 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 and stage 3b chronic kidney disease ([facility])- Primary 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 behavioral disturbance, psychotic disturbance, mood disturbance, or anxiety, unspecified dementia type ([facility]) Paroxysmal atrial fibrillation ([facility]) Atrial fibrillation 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 status epilepticus, unspecified epilepsy type ([facility]) Type 2 diabetes mellitus with diabetic chronic kidney disease, unspecified CKD stage, unspecified whether correction insulin use ([facility]) Open-angle glaucoma, unspecified glaucoma stage, unspecified laterality, unspecified open-angle glaucoma type Atherosclerosis of yuhaaviatam coronary artery without angina pectoris, unspecified whether yuhaaviatam or transplanted heart Hyperparathyroidism, secondary renal ([facility]) Secondary hyperparathyroidism (of renal origin) Hemiplegia, 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[facility]) Hemiplegia affecting unspecified side, late effect of cerebrovascular disease Urinary incontinence, unspecified type Hypertensive heart and kidney 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 and stage 3b chronic kidney disease ([facility])- Primary Hemiplegia, 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[facility]) Hemiplegia affecting unspecified side, late effect of cerebrovascular disease 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 behavioral disturbance, psychotic disturbance, mood disturbance, or anxiety, unspecified dementia type ([facility]) Paroxysmal atrial fibrillation (HCC) Atrial fibrillation 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 status epilepticus, unspecified epilepsy type ([facility]) Type 2 diabetes mellitus with stage 3b chronic kidney disease, without long-term current use of insulin ([facility]) Open-angle glaucoma, unspecified glaucoma stage, unspecified laterality, unspecified open-angle glaucoma type Major depressive disorder, recurrent episode, mild (HCC) Major depressive disorder, recurrent episode, mild Atherosclerosis of yuhaaviatam coronary artery of yuhaaviatam heart without angina pectoris Hyperparathyroidism, secondary renal [...] Advanced care planning/counseling discussion Other specified counseling Anticoagulation management encounter- Primary Encounter for therapeutic drug monitoring documented in this encounter Advance Directives * [...] and were consensually agreed upon. Care Teams Literary Writer Relationship Specialty Start Date End Date Steve Hooker III, MD [address] [place] [address] PCP - General 01/30/1996 documented as of this encounter
--- OUTSIDE RECORDS SUMMARY | 2024-10-06 00:20 | External Medical Summary ---
Author Name Unknown Address Unknown Organization [id number]:[facility] [place] - [address] [place] [address] Laboratory Report Ordering Provider Test Date Status LOURDES DE GUZMAN 09/10/2024 10:59:00 Final Standing order for pt/inr. < br/>Please draw pt/inr every 1 to 4 weeks as requested
Results to [facility]

Warfarin Therapy
INR: 2.0-3.0 conventional anticoagulation
INR: 2.5-3.5 high intensity anticoagulation Observation Date Value Abnormality Reference (Units ) Status PT 09/10/2024 10:59:00 19.3 Above high normal 11 .6-15.2 (seconds) Final INR 09/10/2024 10:59:00 1.6 Above high normal 0. 8-1.2 Final Performing Location [facility] [place] - [address] [place] [address]
--- OUTSIDE RECORDS SUMMARY | 2024-10-06 00:20 | External Medical Summary | Summary of Care ---
Author Name Unknown Organization [facility] Address [address] [facility] [place] [address] Phone [phone] Care Team Providers Care Internet Marketing Executive Name Role Phone Nhung LOPEZ MD, Steve Langston Primary Care Provider [phone] Reason for Visit * Reason Comments Dosage Adjustment Via Phone (anticoag Cl inic) Encounter Details Date Type Department Care Team ([facility] st Contact Info) Description 09/11/2024 6:00 AM EDT Anticoagulation Centralized Clinical Pharmacy Services, Alfred Guevara [address] [place] [address] [place] [address] [facility], [address] [place] [address] Anticoagulation management encounter* Allergies Active Allergy Reactions [...] than 8.0% ([facility]) Use to test once daily DX E11.9 100 Each 3 07/20/19 21 Active Additional Information Patient not taking.Reported on 05/29/2024 Biotin 76184 MCG Oral Tablet Take 1 Tablet by [...] provider. 1 Each 05/26/20 23 Active Depend Bii-Oamp-Lnego-M Use as directed. 30 Each 11 07/03/19 [...] DM peripheral angiopathy 05/26/2023 Atherosclerosis of [place] co ronary artery without angina pectoris 05/26/2023 [...] in the Comments) Remote Patient Monitoring Vendor: Sanlorenzo Device(s): Connected Scale Self - Management Plan [...] SGLT2 Inhibitor: none Remote Patient Monitoring Vendor: Sanlorenzo Device(s): Connected Scale Self - Management Plan [...] SGLT2 Inhibitor: none Remote Patient Monitoring Vendor: Sanlorenzo Device(s): Connected Scale Self - Management Plan [...] 12/22/13 Steve Hooker III, MD [facility] [place] Facet arthropathy, lumbar 10/07/2013 Type 2 diabetes [...] mRNA, LNP-s, No Pre serve, 2-Dose Series (Handseeing Information) 06/01/2021,10/15/2020,09/24/2020 Covid-19, Mrna, Lnp-s, Pf, B ivalent, [...] 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 on file Not on 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 PT/INR results, Coumadin dose instructions, and next PT/INR date communicated as noted by Pharmacist: Yes NAI CORDOVA CPhT 09/11/2024, 8:07 AM * Lea Espana [facility] - 09/11/2024 7:56 AM EDT Images from [...] 1:30 PM EDT Home Visit Lisa at [facility] [address] [facility] [place] [address] RN [address] [facility] [place] [address] 09/24/2024 7:00 AM EDT Laboratory Lab Mobile Phlebotomy [address] [place] [address] [facility] Mobile Home Draw [address] [place] [address] [place] [address] 09/25/2024 6:00 AM EDT Anticoagulation Centralized Clinical Pharmacy Services, Alfred Guevara [address] [place] [address] [place] [address] [place] [address] Health Maintenance Due Date Last Done Comments [...] 02/01/2015, 11/20/2007, 09/21/1998 CKD HGB USE SMARTSET 56925 05/29/202505/29, 08/27/2023, 08/27/2023, Additional history exists Albumin/Creatinine Ratio 07/29/2025 025, 07/27/2021, 01/15/2020, Additional history exists CKD PHOS USE SMARTSET 53528 07/29/202507/18, 10/21/2023, 03/02/2022, Additional history exists Pneumococcal Vaccine: 50+ Years Completed 08/04/2014, 12/29/2009 Zoster Vaccines Completed 11/14/2018, 10/15, 05/30/2018, Additional history exists VITAMIN D LEVEL ONCE IN A LIFETIME-USE SMARTSET# 10435 Completed 07/04/2021, 09/12/2020, 01/11/2020, Additional history exists [...] failure and stage 3b chronic kidney disease ([facility]) 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 disturbance, psychotic disturbance, mood disturbance, or anxiety, unspecified dementia severity ([facility]) Cardiac pacemaker in situ Hemiplegia, 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HCC) Hemiplegia affecting unspecified side, late effect of cerebrovascular disease Major depressive disorder, recurrent episode, mild (HCC) Major depressive disorder, recurrent episode, mild Polymyalgia rheumatica ([facility]) Polymyalgia rheumatica Hypertensive heart and kidney 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 and stage 3b chronic kidney disease ([facility])- Primary Advanced care planning/counseling discussion Other specified counseling ATHEROSCLEROTIC CORONARY DISEASE Unspecified cardiovascular disease Paroxysmal atrial fibrillation (HCC) Atrial fibrillation 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[facility]) Sinoatrial node dysfunction Cardiac pacemaker in situ Type 2 diabetes mellitus with stage 3b chronic kidney disease, without long-term current use of insulin ([facility]) DM peripheral angiopathy ([facility]) Type II or unspecified type diabetes mellitus with peripheral circulatory disorders, not stated as uncontrolled Hypertensive heart and kidney 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 and stage 3b chronic kidney disease ([facility])- Primary 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 behavioral disturbance, psychotic disturbance, mood disturbance, or anxiety, unspecified dementia type (HCC) Paroxysmal atrial fibrillation (HCC) Atrial fibrillation 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 status epilepticus, unspecified epilepsy type ([facility]) Type 2 diabetes mellitus with diabetic chronic kidney disease, unspecified CKD stage, unspecified whether halfway insulin use ([facility]) Open-angle glaucoma, unspecified glaucoma stage, unspecified laterality, unspecified open-angle glaucoma type Atherosclerosis of [place] coronary artery without angina pectoris, unspecified whether [place] or transplanted heart Hyperparathyroidism, secondary renal (HCC) Secondary hyperparathyroidism (of renal origin) Hemiplegia, 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[facility]) Hemiplegia affecting unspecified side, late effect of cerebrovascular disease Urinary incontinence, unspecified type Hypertensive heart and kidney 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 and stage 3b chronic kidney disease ([facility])- Primary Hemiplegia, 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HCC) Hemiplegia affecting unspecified side, late effect of cerebrovascular disease 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 behavioral disturbance, psychotic disturbance, mood disturbance, or anxiety, unspecified dementia type ([facility]) Paroxysmal atrial fibrillation (HCC) Atrial fibrillation 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 status epilepticus, unspecified epilepsy type (HCC) Type 2 diabetes mellitus with stage 3b chronic kidney disease, without long-term current use of insulin (HCC) Open-angle glaucoma, unspecified glaucoma stage, unspecified laterality, unspecified open-angle glaucoma type Major depressive disorder, recurrent episode, mild (HCC) Major depressive disorder, recurrent episode, mild Atherosclerosis of [place] coronary artery of [place] heart without angina pectoris Hyperparathyroidism, secondary renal [...] failure and stage 3b chronic kidney disease ([facility]) Advanced care planning/counseling discussion Other specified counseling [...] and were consensually agreed upon. Care Teams Internet Marketing Executive Relationship Specialty Start Date End Date Steve Hooker III, MD [address] [place] [address] PCP - General 01/30/1996 documented as of this encounter
--- OUTSIDE RECORDS SUMMARY | 2024-10-06 00:20 | External Medical Summary | Summary of Care ---
Author Name Unknown Organization [facility] Address [address] [place] [address] Phone [phone] Care Team Providers Care Storyboard Artist Name Role Phone Nhung LOPEZ MD, Steve Langston Primary Care Provider [phone] Reason for Visit * Reason Onset Date Comments [facility]: Maintenance 09/02/2024 Encounter Details Date Type Department Care Team ([facility] Contact Info) Description 09/02/2024 Telephone [facility], [place] [address] [place] [address] Shirlene Ellsworth, [place] [address] [place] [address] [facility]: Maintenance Allergies Active Allergy Reactions Criticality Noted Date Comments Adhesive Tape 07/05/2022 Doxycycline Nausea/vomiting 11/03/2010 Metoclopramide Hcl Neuro complications (Please comment) 12/07/2010 Developed worsening tremor and lip smacking. Naproxen 01/23/2012 Can not tolerate-gets very emotional and depressed documented as of this encounter (statuses as of 09/02/2024) Medications ASPIRIN 81 MG PO TABS Take [...] than 8.0% ([facility]) Use to test once daily DX E11.9 100 Each 3 07/20/19 21 Active Additional Information Patient not taking.Reported on 05/29/2024 Biotin 83463 MCG Oral Tablet Take 1 Tablet by [...] provider. 1 Each 05/26/20 23 Active Depend Qeh-Dipr-Dsmts-M Use as directed. 30 Each 11 07/03/19 [...] as of this encounter (statuses as of 09/02/2024) Active Problems Problem Noted Date Diagnosed Date [...] 05/26/2023 DM peripheral angiopathy 05/26/2023 Atherosclerosis of [place] co ronary artery without angina pectoris 05/26/2023 [...] in the Comments) Remote Patient Monitoring Vendor: TIME PLUS Q Device(s): Connected Scale Self - Management Plan [...] SGLT2 Inhibitor: none Remote Patient Monitoring Vendor: TIME PLUS Q Device(s): Connected Scale Self - Management Plan [...] SGLT2 Inhibitor: none Remote Patient Monitoring Vendor: TIME PLUS Q Device(s): Connected Scale Self - Management Plan [...] 12/22/13 Steve Hooker III, MD [facility] [place] Facet arthropathy, lumbar 10/07/2013 Type 2 diabetes mellitus wit h hemoglobin A1c goal of less than 8.0% 07/15/2013 Overview (10/13/2015): ICD-10 update of inactive term History of tobacco use 02/18/2013 Hearing loss 02/18/2013 DYSLIPIDEMIA, GOAL LDL BELOW 70 05/30/2009 Overview (05/30/2009): Per Lipid Taxonomy. 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 documented in this encounter Plan of Treatment Upcoming Encounters Date Type Department Care Team (Late st Contact Info) Description 09/08/2024 7:30 AM EDT Laboratory Lab Mobile Phlebotomy [address] [place] [address] [facility] Mobile Home Draw [address] [place] [address] [place] [address] 09/11/2024 6:00 AM EDT Anticoagulation Centralized Clinical Pharmacy Services, Alfred Guevara [address] [place] [address] [place] [address] [place] [address] 09/16/2024 1:30 PM EDT [facility] [address] [place] [address], RN [address] [place] [address] Health Maintenance Due Date Last Done Comments [...] 02/01/2015, 11/20/2007, 09/21/1998 CKD HGB USE SMARTSET 16955 05/29/202505/29, 08/27/2023, 08/27/2023, Additional history exists Albumin/Creatinine Ratio 07/29/2025 025, 07/27/2021, 01/15/2020, Additional history exists CKD PHOS USE SMARTSET 77228 07/29/202507/18, 10/21/2023, 03/02/2022, Additional history exists Pneumococcal Vaccine: 50+ Years Completed 08/04/2014, 12/29/2009 Zoster Vaccines Completed 11/14/2018, 10/15, 05/30/2018, Additional history exists VITAMIN D LEVEL ONCE IN A LIFETIME-USE SMARTSET# 29822 Completed 07/04/2021, 09/12/2020, 01/11/2020, Additional history exists [...] and were consensually agreed upon. Care Teams Storyboard Artist Relationship Specialty Start Date End Date Steve Hooker III, MD [address] [place] [address] PCP - General 01/30/1996 documented as of this encounter
--- OUTSIDE RECORDS SUMMARY | 2024-10-06 00:20 | External Medical Summary | Summary of Care ---
Author Name Unknown Organization [facility] Address [address] [place] [address] Phone [phone] Care Team Providers Care Service Cleaner Name Role Phone Nhung LOPEZ MD, John E Primary Care Provider [phone] Encounter Details Date Type Department Care Team (Late st Contact Info) Description 08/28/2024 Result Scan Unspecified Department Steve Hooker III, MD [address] [place] [address] <No scans attached> Allergies Active Allergy Reactions Criticality Noted Date Comments Adhesive Tape 07/05/2022 Doxycycline Nausea/vomiting 11/03/2010 Metoclopramide Hcl Neuro complications (Please comment) 12/07/2010 Developed worsening tremor and lip smacking. Naproxen 01/23/2012 Can not tolerate-gets very emotional and depressed documented as of this encounter (statuses as of 09/14/2024) Medications ASPIRIN 81 MG PO TABS Take [...] Information Patient not taking.Reported on 05/29/2024 Biotin 75767 MCG Oral Tablet Take 1 Tablet by [...] provider. 1 Each 05/26/20 23 Active Depend Eqh-Yjsz-Khdiz-M Use as directed. 30 Each 11 07/03/19 [...] as of this encounter (statuses as of 09/14/2024) Active Problems Problem Noted Date Diagnosed Date [...] 05/26/2023 DM peripheral angiopathy 05/26/2023 Atherosclerosis of [place] co ronary artery without angina pectoris 05/26/2023 [...] in the Comments) Remote Patient Monitoring Vendor: DishOpinion Device(s): Connected Scale Self - Management Plan [...] SGLT2 Inhibitor: none Remote Patient Monitoring Vendor: DishOpinion Device(s): Connected Scale Self - Management Plan [...] SGLT2 Inhibitor: none Remote Patient Monitoring Vendor: DishOpinion Device(s): Connected Scale Self - Management Plan [...] 12/22/13 Steve Hooker III, MD [facility] [place] Facet arthropathy, lumbar 10/07/2013 Type 2 diabetes mellitus wit h hemoglobin A1c goal of less than 8.0% 07/15/2013 Overview (10/13/2015): ICD-10 update of inactive term History of tobacco use 02/18/2013 Hearing loss 02/18/2013 DYSLIPIDEMIA, GOAL LDL BELOW 70 05/30/2009 Overview (05/30/2009): Per Lipid Taxonomy. 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 Not on file Not on file [employer] Not on file Not on file Not on file documented as of this encounter Plan of Treatment Upcoming Encounters Date Type Department Care Team (Late st Contact Info) Description 09/16/2024 1:30 PM EDT [facility] [address] [place] [address], RN [address] [place] [address] 09/24/2024 7:00 AM EDT Laboratory Lab Mobile Phlebotomy [place] [address] [facility] [place] [address] [facility] Mobile Home Draw [facility] [place] [address] 09/25/2024 6:00 AM EDT Anticoagulation Centralized Clinical Pharmacy Services, Alfred Guevara [address] [place] [address] [place] [address] [facility] [place] [address] Health Maintenance Due Date Last Done Comments [...] 02/01/2015, 11/20/2007, 09/21/1998 CKD HGB USE SMARTSET 60895 05/29/202505/29, 08/27/2023, 08/27/2023, Additional history exists Albumin/Creatinine Ratio 07/29/2025 025, 07/27/2021, 01/15/2020, Additional history exists CKD PHOS USE SMARTSET 22834 07/29/202507/18, 10/21/2023, 03/02/2022, Additional history exists Pneumococcal Vaccine: 50+ Years Completed 08/04/2014, 12/29/2009 Zoster Vaccines Completed 11/14/2018, 10/15, 05/30/2018, Additional history exists VITAMIN D LEVEL ONCE IN A LIFETIME-USE SMARTSET# 88384 Completed 07/04/2021, 09/12/2020, 01/11/2020, Additional history exists [...] Procedure Name Priority Date/Time Associated Diagnosis Comments OUTSIDE LAB RESULTS 08/28/2024 documented in this encounter Results * OUTSIDE LAB RESULTS (08/28/2024) 08/28/2024 Steve Hooker III, MD LABORATORY Final Resul t documented in this encounter Advance Directives * [...] were consensually agreed upon. Care Teams Service Cleaner Relationship Specialty Start Date End Date Steve Hooker III, MD [address] [place] [address] PCP - General 01/30/1996 documented as of this encounter
--- OUTSIDE RECORDS SUMMARY | 2024-10-06 00:21 | External Medical Summary | Summary of Care ---
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 External - [facility] Comments Documentation of Mfri-bb-Nmii Encounter Addendum Patient Name: Rhea Diaz I certify that this patient is under my care and that I, or a nurse practitioner or physician's carpenter assistant working with me, had a uphy-qt-gqss encounter that meets the physician clug-yq-crwn encounter requirements with this patient on: 09/01/2024 The encounter with the patient was in whole, or in part, for the following medical condition, which is the primary reason for home health care (List medical condition): Gait dysfunction I certify that, based on my findings, the following services are medically necessary home health services: Nursing and Physical Therapy To provide the following care/treatments: (All hospitalists not following the patient after discharge should complete this section): eval and treat Primary Care Physician to follow home care plan of care after discharge: Steve Hooker III, MD My clinical findings support the need for the above services because: recent fall Further, I certify that my clinical findings support that this patient is homebound (i.e. Absences from home require considerable and taxing effort and are for medical reasons or nondenominational services or infrequently or of short duration when for other reason) because: Requires assistive device, transportation difficulty Physician Signature: Date of Signature: Physician Printed Name: Alma Rosa Washburn PA-C Encounter Details Date Type Department Care Team (Late st Contact Info) Description 09/01/2024 3:00 PM EDT Home Visit [facility] [address] [facility] [place] [id number] Alma Rosa Washburn PA-C [address] [place] [id number] Fall in home, initial encounter*; Traumatic ecchymosis of right hip, initial encounter; 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 behavioral disturbance, psychotic disturbance, mood disturbance, or anxiety, unspecified dementia type (HCC); Hypertensive heart and kidney 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 and stage 3b chronic kidney disease (HCC); Advanced care planning/counseling discussion Allergies Active Allergy Reactions Criticality Noted Date [...] hemoglobin A1c goal of less than 8.0% ([facility]) Use to test once daily DX E11.9 100 Each 3 07/20/19 21 Active Additional Information Patient not taking.Reported on 05/29/2024 Biotin 62938 MCG Oral Tablet Take 1 Tablet by [...] provider. 1 Each 05/26/20 23 Active Depend Shn-Awhv-Fnzgz-M Use as directed. 30 Each 11 07/03/20 24 Active buPROPion HCl ER (SR) 100 MG Oral Tablet Extended Release 12 Hour (Wellbutrin SR) Take 1 Tablet by mouth in the morning. 30 Tablet 5 12:05 PM EDT 09/08/19 24 Active [...] FIRST MEAL OF THE DAY 100 Capsule 5 9:11 AM EST 06/19/19 25 026 [...] 05/26/2023 DM peripheral angiopathy 05/26/2023 Atherosclerosis of [place] co ronary artery without angina pectoris 05/26/2023 [...] in the Comments) Remote Patient Monitoring Vendor: [employer] Device(s): Connected Scale Self - Management Plan [...] SGLT2 Inhibitor: none Remote Patient Monitoring Vendor: [employer] Device(s): Connected Scale Self - Management Plan [...] SGLT2 Inhibitor: none Remote Patient Monitoring Vendor: [facility] Device(s): Connected Scale Self - Management Plan [...] 12/22/13 Steve Hooker III, MD [facility] [place] Facet arthropathy, lumbar 10/07/2013 Type 2 diabetes [...] mRNA, LNP-s, No Pre serve, 2-Dose Series (Bioapter) 06/01/2021,10/15/2020,09/24/2020 Covid-19, Mrna, Lnp-s, Pf, B ivalent, [...] Industry Job Start Date Job End Date [employer] Not on file Not 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 [facility] Provider Visit Assessment and Plan Assessment & Plan Fall in home, initial encounter Bruising to right hip, otherwise no significant injuries Continue to use walker Has life alert Will add PT referral for home health Orders: HOME HEALTH REFERRAL OP Traumatic ecchymosis of right hip, initial encounter S/p fall, 5 days ago Orders: HOME HEALTH REFERRAL OP 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 behavioral disturbance, psychotic disturbance, mood disturbance, or anxiety, unspecified dementia type (HCC) Family assisting with IADLs Orders: HOME HEALTH REFERRAL OP Hypertensive heart and kidney 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 and stage 3b chronic kidney disease (HCC) Stable, continue torsemide Chronic leg swelling/lymphedema Advanced care planning/counseling discussion Additional Medical Decision Making: Patient lives alone, single story home Son stops daily, son/daughter both helps with meals Daughter does pill box weekly on Saturdays Recent fall, no significant injury. Life alert already in place Discussed goals of care, remains full code/treatment Realizes she will not be able to safely live alone forever. Has considered SNF as only option, although feels she will not be able to afford it when needed. For now will continue to live alone with support from family. Scheduled appointments in the next 60 days: Future Appointments-next 60 days Date/Time Provider Specialty Dept Phone 06/29/2024 11:00 AM Alma Rosa Washburn PA-C [facility] [phone] 06/30/2024 6:00 AM [facility] [phone] 07/01/2024 3:00 PM (Arrive by 2:45 PM) Laila Bragg CRNP Cardiology [phone] A total of 40 minutes was spent face to face (via video-based telemedicine if designated as a telemedicine visit) Subjective Subjective Is this a Telemedicine Visit? No, this is an Home Visit. Reason For [facility] Visit: Follow-Up Current Concerns: Rhea Diaz is a 89 year old female seen today for a [facility] provider visit. PMH includes CHF, HTN, afib, dyslipidemia, depression, PMR, tachy-amy s/p pacemaker, DM2 06/27-06/29/23 - [facility] - encephalopathy, UTI, HARJEET 07/14/24 - [facility] ER - cat scratch, required 3 sutures Today's concerns are: Cat scratch as above, wound is healed at this time Had a fall at home on 08/27 (5 days ago) Reports she stood up from her recliner and fell into the tv Landed into the tv and entertainment center with her butt/hip and fell onto the floor Forgot that she was wearing her life alert, and did not use it She was able to crawl to the furniture and get herself up Complains of chronic pain, but nothing worse than usual Has some bruising to her right hip Able to stand and ambulate as usual Continues to use walker Using oxy/apap approx 3 times daily Denies any SOB or CHOUDHARY Remains fairly sedentary Additional Current Outpatient Medications Medication Sig Dispense Refill [...] mouth every 8 hours as needed forGas. OneTouch Delica Lancets 30G Use to test once daily DX E11.9 (Patient not taking: Reported on 05/29/2024) 100 Each 3 Biotin 93247 MCG Oral Tablet Take 1 Tablet by mouth daily. OneTouch Ultra Blue In Vitro Strip (Glucose Blood) Use to test once daily DX E11.9 (Patient not taking: Reported on 05/29/2024) 100 Strip 3 Cetirizine HCl 10 MG Oral Tablet Take 1 Tablet by mouth in the morning. Vitamin D 50 MCG (2000 UT) Oral Tablet Take 2,000 Units by mouth in the morning. DIURETIC TITRATION PLAN If no improvement on day 3, contact heart failure managing provider. 1 Each0 Depend Flv-Wtid-Rbprx-M Use as directed. 30 Each 11 buPROPion HCl ER (SR) 100 MG Oral Tablet Extended Release 12 Hour (Wellbutrin SR) Take 1 Tablet by mouth in the morning. 30 Tablet 11 Diclofenac Sodium 1 % External Gel (Voltaren) APPLY 4 GRAMS TOPICALLY TO RIGHT HIP FOUR TIMES A PHR919 g 3 Triamcinolone Acetonide 0.1 % External Ointment (Aristocort) Apply topically to affected area 2 times a day. 60 g 5 Warfarin Sodium 4 MG Oral Tablet (Coumadin) TAKE ONE TO ONE AND ONE-HALF TABLETS BY MOUTH EVERY DAYAS DIRECTED BY ANTICOAGULATION PHARMACIST 135 Tablet 3 traZODone HCl 50 MG Oral Tablet (Desyrel) TAKE 1/2 TABLET BY MOUTH AT BEDTIME 45 Tablet 1 Omeprazole 20 MG Oral Capsule Delayed Release [...] needed for Pain, Severe. 120 Tablet 0 No current facility-administered medications for this visit. I have reviewed the following results: CMP and CBC Lab Results Component Value Date/Time LEFT VENTRICULAR EJECTION FRACTION 55 03/23/2020 02:35 PM Objective Objective Vitals: 09/01/24 1011 Pulse: 62 SpO2: 97% BP: 118/70 Last Weights: Wt Readings from Last 3 Encounters: 07/29/24 74.6 kg (164 lb 6.4 oz) 05/29/24 73.4 kg (161 lb 14.4 oz) 05/07/24 72.6 kg (160 lb) Last BPs: BP Readings from Last 4 Encounters: 09/01/24 118/70 02/12/25 126/76 06/19/24 108/68 05/29/24 118/86 General: alert and no distress Neuro: alert & oriented x 3 with fluent speech Heart: irregularly irregular, +murmur Lungs: lungs clear to auscultation, no wheeze, no rales, no rhonchi Abdomen: abdomen soft, non-tender, and normal bowel sounds Ext: +non pitting edema bilat LE, right hip with ecchymosis noted, non tender with palpation or movement documented in this encounter Miscellaneous Notes * Assessment & Plan Note - Alma Rosa Washburn PA-C - 09/01/2024 8:54 PM EDT Associated Problem(s): Unspecified dementia, unspecified severity, without behavioral disturbance, psychotic disturbance, mood disturbance, and anxiety (HCC) Family assisting with IADLs Orders: HOME HEALTH REFERRAL OP * Assessment & Plan Note - Alma Rosa Washburn PA-C - 09/01/2024 8:54 PM EDT Associated Problem(s): Hypertensive heart and kidney 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 and stage 3b chronic kidney disease (HCC) Stable, continue torsemide Chronic leg swelling/lymphedema * Assessment & Plan Note - Alma Rosa Washburn PA-C - 09/01/2024 8:54 PM EDT Associated Problem(s): Advanced care planning/counseling discussion * ACP (Advance Care Planning) - Alma Rosa Washburn PA-C - 09/01/2024 8:54 PM EDT Patient-centered Communication 09/01/2024 The patient/surrogate voluntarily agreed to participate in advance care planning discussion. Location: Home Individual(s) present for conversation: Patient Decisions (Aligning Care with What Matters Most): Most Recent Choice Selection Comments CPR Perform CPR if Needed (09/01/2024 8:51 PM) Intubation Intubate if Needed (09/01/2024 8:51 PM) Non-Invasive Ventilation Patient chooses non-invasive ventilation. Select interventions below (12/30/2023 11:32 AM) Antibiotics Give Antibiotics if Needed (09/01/2024 8:51 PM) Artificial Nutrition Patient chooses Artificial nutrition (12/30/2023 11:32 AM) IV Hydration Provide IV Hydration if Needed (09/01/2024 8:51 PM) Chemotherapy Patient chooses Chemotherapy (12/30/2023 11:32 AM) Radiation Therapy Surgical Procedure Blood Transfusions Patient chooses Blood transfusion (12/30/2023 11:32 AM) Lab Draws Draw Blood if Needed (09/01/2024 8:51 PM) Hospice Going to Hospital / ER Patient chooses Transport (12/30/2023 11:32 AM) Dying at Home Dialysis Patient chooses Dialysis (12/30/2023 11:32 AM) Overall Comments Pt states 'I want everything done and tried. If they do everything and I have a tube in my throat and nothing else can be done, then they can let me go but I want them to try everything first." (12/30/2023 11:32 AM) Source: Content from [employer] Program Discussion and Background (Discerning What Matters Most): The Patient's Current Experience and Understanding of their Illness: "I know my memory is bad sometimes" (09/01/2024 8:52 PM) Their Past Experience with Healthcare or Illness: Their Understanding of Prognosis and their Anticipated Course: Their Fears and Worries about the Future: "I know i wont be able to safely live alone at home forever" (09/01/2024 8:52 PM) Their Hopes for the Future: Important Spiritual or Cultural Elements for them: Additional Important Elements: Source: Content from [employer] Program Documents Reviewed: POLST discussion Ongoing (09/01/2024 8:53 PM) AD Not Available, SDM Identified (09/01/2024 8:53 PM) Verbally-Identified Shared Decision Maker: Samuel (son) (09/01/2024 8:53 PM) Materials Shared with Patient and Family: 15 minutes spent in direct [id number] discussion Alma Rosa estrada PA-C documented in this encounter Plan of Treatment Upcoming Encounters Date Type Department Care Team (Late st Contact Info) Description 09/08/2024 7:30 AM EDT Laboratory Lab Mobile Phlebotomy [place] [phone] [employer] [place] [phone] [place], [facility] Mobile Home Draw [address] [place] [address] [place] [id number] 09/11/2024 6:00 AM EDT Anticoagulation [facility], Alfred Guevara [address] [place] [address] [place] [address] [facility], [address] [place] [id number] 09/16/2024 1:30 PM EDT Home Visit [facility] [address] [facility] [place] [address], RN [address] [facility] [place] [id number] Scheduled Referrals Name Type Priority Associated Diagnoses Orde r Schedule HOME HEALTH REFERRAL OP Referral Within 10 days (routine) Fall in home, initial encounter Traumatic ecchymosis of right hip, initial encounter 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 behavioral disturbance, psychotic disturbance, mood disturbance, or anxiety, unspecified dementia type (HCC) Ordered: 09/01/2024 Health Maintenance Due Date Last Done Comments [...] 02/01/2015, 11/20/2007, 09/21/1998 CKD HGB USE SMARTSET 54596 05/29/202505/29, 08/27/2023, 08/27/2023, Additional history exists Albumin/Creatinine Ratio 07/29/2025 025, 07/27/2021, 01/15/2020, Additional history exists CKD PHOS USE SMARTSET [id number] 07/29/202507/18, 10/21/2023, 03/02/2022, Additional history exists Pneumococcal Vaccine: 50+ Years Completed 08/04/2014, 12/29/2009 Zoster Vaccines Completed 11/14/2018, 10/15, 05/30/2018, Additional history exists VITAMIN D LEVEL ONCE IN A LIFETIME-USE SMARTSET# [id number] Completed 07/04/2021, 09/12/2020, 01/11/2020, Additional history exists [...] failure and stage 3b chronic kidney disease ([facility]) 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 disturbance, psychotic disturbance, mood disturbance, or anxiety, unspecified dementia severity ([facility]) Cardiac pacemaker in situ Hemiplegia, 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[facility]) Hemiplegia affecting unspecified side, late effect of cerebrovascular disease Major depressive disorder, recurrent episode, mild (HCC) Major depressive disorder, recurrent episode, mild Polymyalgia rheumatica ([facility]) Polymyalgia rheumatica Hypertensive heart and kidney 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 and stage 3b chronic kidney disease ([facility])- Primary Advanced care planning/counseling discussion Other specified counseling ATHEROSCLEROTIC CORONARY DISEASE Unspecified cardiovascular disease Paroxysmal atrial fibrillation (HCC) Atrial fibrillation 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 Cardiac pacemaker in situ Type 2 diabetes mellitus with stage 3b chronic kidney disease, without long-term current use of insulin ([facility]) DM peripheral angiopathy ([facility]) Type II or unspecified type diabetes mellitus with peripheral circulatory disorders, not stated as uncontrolled Hypertensive heart and kidney 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 and stage 3b chronic kidney disease ([facility])- Primary 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 behavioral disturbance, psychotic disturbance, mood disturbance, or anxiety, unspecified dementia type ([facility]) Paroxysmal atrial fibrillation (HCC) Atrial fibrillation 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 status epilepticus, unspecified epilepsy type ([facility]) Type 2 diabetes mellitus with diabetic chronic kidney disease, unspecified CKD stage, unspecified whether terminal block assembler insulin use ([facility]) Open-angle glaucoma, unspecified glaucoma stage, unspecified laterality, unspecified open-angle glaucoma type Atherosclerosis of [place] coronary artery without angina pectoris, unspecified whether [place] or transplanted heart Hyperparathyroidism, secondary renal ([facility]) Secondary hyperparathyroidism (of renal origin) Hemiplegia, 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[facility]) Hemiplegia affecting unspecified side, late effect of cerebrovascular disease Urinary incontinence, unspecified type Hypertensive heart and kidney 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 and stage 3b chronic kidney disease ([facility])- Primary Hemiplegia, 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HCC) Hemiplegia [...] depressive disorder, recurrent episode, mild Atherosclerosis of [place] coronary artery of [place] heart without angina pectoris Hyperparathyroidism, secondary renal [...] Advanced care planning/counseling discussion Other specified counseling documented in this encounter Advance Directives * [...] and were consensually agreed upon. Care Teams Backup Engineer Relationship Specialty Start Date End Date Steve Hooker III, MD [address] [place] [place] [address] PCP - General 01/30/1996 documented as of this encounter
--- OUTSIDE RECORDS SUMMARY | 2024-10-06 00:21 | External Medical Summary | Summary of Care ---
Author Name Unknown Organization [facility] Address [address] [place] [address] Phone [phone] Care Team Providers Care Real Property Appraiser Name Role Phone Nhung LOPEZ MD, Steve Langston Primary Care Provider [phone] Reason for Visit * Reason Comments Medication Refill Encounter Details Date Type Department Care Team (Late st Contact Info) Description 08/31/2024 Refill Family Practice [facility] [address] [facility] [place] [address] Steve Hooker III, MD 200 [facility] [place] [address] Pain Allergies Active Allergy Reactions Criticality Noted Date Comments Adhesive Tape 07/05/2022 Doxycycline Nausea/vomiting 11/03/2010 Metoclopramide Hcl Neuro complications (Please comment) 12/07/2010 Developed worsening tremor and lip smacking. Naproxen 01/23/2012 Can not tolerate-gets very emotional and depressed documented as of this encounter (statuses as of 09/01/2024) Medications ASPIRIN 81 MG PO TABS Take [...] Information Patient not taking.Reported on 05/29/2024 Biotin 91406 MCG Oral Tablet Take 1 Tablet by [...] provider. 1 Each 05/26/20 23 Active Depend Rae-Pkah-Epcnk-M Use as directed. 30 Each 11 07/03/19 24 Active buPROPion HCl ER (SR) 100 MG Oral Tablet Extended Release 12 Hour (Wellbutrin SR) Take 1 Tablet by mouth in the morning. 30 Tablet 11 5 12:05 PM EST 09/08/19 24 Active Diclofenac Sodium 1 % [...] 90 Capsule 3 5 3:41 PM EST 03/05/20 25 Active Torsemide 20 MG Oral Tablet (Demadex) Take 1 Tablet by mouth in the morning and 1 Tablet in the evening. 90 Tablet 1 7:40 AM EDT 08/25/19 25 Active oxyCODONE-Acetami nophen 10-325 MG Oral TabletIndications :Pain Take 1 Tablet by mouth every 6 hours as needed for Pain, Severe. 120 Tablet 08/30/19 25 Active documented as of this encounter (statuses as of 09/01/2024) Active Problems Problem Noted Date Diagnosed Date [...] 05/26/2023 DM peripheral angiopathy 05/26/2023 Atherosclerosis of [place] co ronary artery without angina pectoris 05/26/2023 Assessment & Plan (06/29/2024 12:17 PM EST): Advanced care planning/counseling discussion Assessment & Plan (12/27/2022 12:44 PM EDT): -patient does not have living will in writing -would like to make decisions based on the circumstances of the situation -encouraged patient and family to fill out documentation left by RN WALLACE Unspecified dementia, unspec ified severity, without behavioral disturbance, psychotic disturbance, mood disturbance, and anxiety 07/20/2022 Assessment & Plan (06/29/2024 12:17 PM EST): [...] chronic kidney disease 07/19/2021 Assessment & Plan (06/29/2024 12:17 PM EST): "RED FLAG" HF Symptoms: Leg Swelling Increased dyspnea on exertion Medication Regimen: Beta Zayra Therapy: Metoprolol Succinate (ER) MARISABEL Inhibitor/ARB Therapy: No MARISABEL/ARB/ARNI secondary to: orthostasis Diuretic therapy: Torsemide SGLT2 Inhibitor: No Current SGLT2 (Describe in the Comments) Remote Patient Monitoring Vendor: Appforma Device(s): Connected Scale Self - Management Plan [...] SGLT2 Inhibitor: none Remote Patient Monitoring Vendor: Appforma Device(s): Connected Scale Self - Management Plan [...] SGLT2 Inhibitor: none Remote Patient Monitoring Vendor: Appforma Device(s): Connected Scale Self - Management Plan [...] ON 06/29/2024 3:10 PM BY ALMA ROSA CLEMONS PA-C Hgba1c at goal Diet controlled Cardiac [...] 12/22/13 Steve Hooker III, MD [facility] [place] Facet arthropathy, lumbar 10/07/2013 Type 2 diabetes mellitus wit h hemoglobin A1c goal of less than 8.0% 07/15/2013 Overview (10/13/2015): ICD-10 update of inactive term History of tobacco use 02/18/2013 Hearing loss 02/18/2013 DYSLIPIDEMIA, GOAL LDL BELOW 70 05/30/2009 Overview (05/30/2009): Per Lipid Taxonomy. 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 Medicine Specialist Not on file Not on file Not on file [employer] Not on file Not on file Not on file documented as of this encounter Miscellaneous Notes * Telephone Encounter - Stacie Shafer, [facility] - 08/31/2024 5:47 PM EDT No prescriptions requested or ordered in this encounter documented in this encounter Plan of Treatment Upcoming Encounters Date Type Department Care Team (Late st Contact Info) Description 09/01/2024 3:00 PM EDT [facility] [address] [place] [address] Alma Rosa Clemons PA-C [address] [place] [address] 09/10/2024 7:05 AM EDT Laboratory Lab [facility] Phlebotomy [address] [place] [address] [facility] Mobile Home Draw [address] [place], [place] [address] [address] 09/11/2024 6:00 AM EDT Anticoagulation [facility], [address] [place] [address] [place] [address] 09/16/2024 1:30 PM EDT [facility] [address] [address] [address], RN [address] [address] [address] Health Maintenance Due Date Last Done Comments [...] 02/01/2015, 11/20/2007, 09/21/1998 CKD HGB USE SMARTSET 42905 05/29/202505/29, 08/27/2023, 08/27/2023, Additional history exists Albumin/Creatinine Ratio 07/29/2025 025, 07/27/2021, 01/15/2020, Additional history exists CKD PHOS USE SMARTSET 81890 07/29/202507/18, 10/21/2023, 03/02/2022, Additional history exists Pneumococcal Vaccine: 50+ Years Completed 08/04/2014, 12/29/2009 Zoster Vaccines Completed 11/14/2018, 10/15, 05/30/2018, Additional history exists VITAMIN D LEVEL ONCE IN A LIFETIME-USE SMARTSET# [id number] Completed 07/04/2021, 09/12/2020, 01/11/2020, Additional history exists [...] stage 3b chronic kidney disease (HCC)- Primary 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 behavioral disturbance, psychotic disturbance, mood disturbance, or anxiety, unspecified dementia type (HCC) Paroxysmal atrial fibrillation (HCC) Atrial fibrillation 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 status epilepticus, unspecified epilepsy type (HCC) Type 2 diabetes mellitus with diabetic chronic kidney disease, unspecified CKD stage, unspecified whether technician terminal and repeater insulin use (HCC) Open-angle glaucoma, unspecified glaucoma stage, unspecified laterality, unspecified open-angle glaucoma type Atherosclerosis of [place] coronary artery without angina pectoris, unspecified whether [place] or transplanted heart Hyperparathyroidism, secondary renal (HCC) Secondary hyperparathyroidism (of renal origin) Hemiplegia, 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HCC) Hemiplegia affecting unspecified side, late effect of cerebrovascular disease Urinary incontinence, unspecified type Hypertensive heart and kidney 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 and stage 3b chronic kidney disease (HCC)- Primary Hemiplegia, 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HCC) Hemiplegia affecting unspecified [...] depressive disorder, recurrent episode, mild Atherosclerosis of [place] coronary artery of [place] heart without angina pectoris Hyperparathyroidism, secondary renal (HCC) Secondary hyperparathyroidism (of renal origin) Age-related osteoporosis without current pathological fracture Senile osteoporosis Lymphedema Other lymphedema Pain Generalized pain documented in this encounter Advance Directives * [...] and were consensually agreed upon. Care Teams Real Property Appraiser Relationship Specialty Start Date End Date Steve Hooker III, MD [address] [place] [address] PCP - General 01/30/1996 documented as of this encounter
--- OUTSIDE RECORDS SUMMARY | 2024-10-06 00:21 | External Medical Summary | Summary of Care ---
Author Name Unknown Organization [facility] Address [address] [place] [address] Phone [phone] Care Team Providers Care Gypsum Roofer Name Role Phone Nhung LOPEZ MD, John E Primary Care Provider [phone] Reason for Referral * Medication Prior Authorization - Pending Review Specialty Diagnoses / Procedures Referred By Lizabeth sim Referred To Contact Diagnoses Pain Christiano Harkins III, MD [address] [place], [place] [address] Phone: tel: fax: Referral ID Status Reason Start Date Expiration Date V isits Requested Visits Authorized [id number] Pending Review [phone] Reason for Visit * Reason Onset Date Comments Medication Refill 08/27/2024 Encounter Details Date Type Department Care Team (Late st Contact Info) Description 08/27/2024 Refill Family [facility] [address] [place] [address] Christiano Harkins III, MD [address] [place] [address] Pain Allergies Active Allergy Reactions Criticality Noted Date Comments Adhesive Tape 07/05/2022 Doxycycline Nausea/vomiting 11/03/2010 Metoclopramide Hcl Neuro complications (Please comment) 12/07/2010 Developed worsening tremor and lip smacking. Naproxen 01/23/2012 Can not tolerate-gets very emotional and depressed documented as of this encounter (statuses as of 08/29/2024) Medications ASPIRIN 81 MG PO TABS Take [...] Information Patient not taking.Reported on 05/29/2024 Biotin 61923 MCG Oral Tablet Take 1 Tablet by [...] provider. 1 Each 05/26/20 23 Active Depend Vtt-Jnrb-Xrtec-M Use as directed. 30 Each 11 07/03/19 [...] DAY 400 g 3 09/16/19 24 2024 Active Triamcinolone Acetonide 0.1 % External Ointment [...] Pain, Severe. 120 Tablet 08/30/19 25 Active oxyCODONE-Acetami nophen 10-325 MG Oral TabletIndications :Pain Take 1 Tablet by mouth every 6 hours as needed for Pain, Severe. 120 Tablet 5 12:07 PM EST 07/28/19 25 2024 Disconti nued(Ref ill) documented as of this encounter (statuses as of 08/29/2024) Active Problems Problem Noted Date Diagnosed Date [...] 05/26/2023 DM peripheral angiopathy 05/26/2023 Atherosclerosis of unga co ronary artery without angina pectoris 05/26/2023 [...] in the Comments) Remote Patient Monitoring Vendor: Rocket Software Device(s): Connected Scale Self - Management Plan [...] SGLT2 Inhibitor: none Remote Patient Monitoring Vendor: Rocket Software Device(s): Connected Scale Self - Management Plan [...] SGLT2 Inhibitor: none Remote Patient Monitoring Vendor: Rocket Software Device(s): Connected Scale Self - Management Plan [...] USE AGREEMENT 06/22/2014 Overview (06/22/2014): Signed 12/22/13 Christiano Harkins III, MD [facility] [place] Facet arthropathy, lumbar 10/07/2013 Type 2 diabetes mellitus wit h hemoglobin A1c goal of less than 8.0% 07/15/2013 Overview (10/13/2015): ICD-10 update of inactive term History of tobacco use 02/18/2013 Hearing loss 02/18/2013 DYSLIPIDEMIA, GOAL LDL BELOW 70 05/30/2009 Overview (05/30/2009): Per Lipid Taxonomy. S/P angioplasty with stent 09/05/2002 documented as of this encounter (statuses as of 08/29/2024) Resolved Problems Problem Noted Date Diagnosed Date [...] as of this encounter (statuses as of 08/29/2024) Immunizations Name Administration Dates Next Due COVID-19 mRNA, LNP-s, No Pre serve, 2-Dose Series (Thomas-Krenn) 06/01/2021,10/15/2020,09/24/2020 Covid-19, Mrna, Lnp-s, Pf, B ivalent, 10 Mcg, IM, 5-11 yrs (Pfizer) 07/12/2022 H1N1 2009 Influenza, IM 06/28/2009 PPD 07/06/2022 Pneumococcal Conjugate Vacc, 13 Valent (Prevnar) 08/04/2014 Pneumococcal Conjugate Vacci ne, 7 Valent 03/27/2002 Pneumococcal Polysaccharide PPV23 (Pneumovax) 12/29/2009 RSV Vac., Bivalent, Perfusio n F, Pf,0.5 Ml (Abrysvo) 07/03/2023 Season Influenza, Quad, PF, Adjuvanted, 65+ Yrs, IM (FLUAD) 06/08/2020 Seasonal Influenza Vac., MDV , IM, 0.5 mL (Fluzone) 05/04/2014,02/25/2013,02/27/2012,03/18,04/04/2010,06/13/2009,04/05/20 08,03/26/2007,04/15/2006,03/27/2005,1 06/21/2002,03/27/2002,05/27/2000 05/28/2001 Seasonal Influenza, High Dos e, Trivalent, PF, IM (Fluzone HD) 05/29/2024 Seasonal Influenza, PF, 6 M & above, IM , (FluLaval or Fluzone) 03/11/2018,05/29/2017 Seasonal Influenza, Quadriva lent Hd (Fluzone Hd) 04/03/2023,03/27/2021 Seasonal Influenza, Quadriva lent Hd, 65+ Yrs 07/10/2022 Seasonal Influenza, Quadriva lent, No Preserve, IM 02/27/2016 Seasonal Influenza, Trivalen t, Adjuvanted, 65+ YRS, PF, (Fluad) 04/21/2019 TD - Tetanus/Diptheria (ADULT) 11/20/2007,1998 TDAP [...] 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 Thank you, Parth Finch Scales Inspector I [facility] ([facility]) 08/29/2024,8:40 AM * Telephone Encounter - Christiano Harkins III, MD - 08/29/2024 8:28 AM EDTSigned Prescriptions: Disp Refills oxyCODONE-Acetaminophen 10-325 MG Oral Tab*120 Ta*0 Sig: Take 1 Tablet by mouth every 6 hours as needed for Pain, Severe.Authorizing Provider: CRHISTIANO HARKINS III----- * Telephone Encounter - Gracie Nogueira [facility] - 08/28/2024 3:57 PM EDTPending Prescriptions: Disp Refills oxyCODONE-Acetaminophen 10-325 MG Oral Tab*120 Ta*0 Sig: Take 1 Tablet by mouth every 6 hours as needed for Pain, Severe. * Telephone Encounter - Gracie Nogueria [facility] - 08/28/2024 3:56 PM EDT I have reviewed the patient’s controlled substance dispensing history in the Prescription Drug Monitoring Program in compliance with the [facility] regulations before prescribing a controlled substance. PDMP checked on 08/28/2024. Pending Prescriptions: Disp Refills oxyCODONE-Acetaminophen 10-325 MG Oral Ta*120 Ta*0 Sig: Take 1 Tablet by mouth every 6 hours as needed for Pain, Severe. Last Visit: 07/29/2024 (in office), 11/21/2022 (telemedicine) Next Visit: Visit date not found Date medication was last filled: 07/31/24 Date medication is due for refill: 08/30/24 Pharmacy: [facility] Is this request for a controlled substance? Yes and Urine Drug Screen was completed Toxicology results: Results for orders placed or performed in visit on 07/29/24 PAIN MANAGEMENT DRUG PANEL, URINE W/ INTERPRETATION Result Value Pain Management Interpretation Based on the medication information provided: The positive oxycodone screening result is CONSISTENT with oxycodone use. Confirmatory testing is available upon request. Amphetamines Screen, U Negative Benzodiazepines Screen, U Negative Cannabinoids Screen, U Negative Cocaine Metabolite Screen, U Negative Fentanyl Screen, U Negative Hydrocodone Screen, U Negative Methadone Metabolite Screen, U Negative Morphine/Codeine Screen, U Negative Oxycodone Screen, U Positive (A) Specimen Validity Interpretation Normal Creatinine, U 81 Narrative Cutoff Concentrations: Drug Level Amphetamines 500 ng/mL Benzodiazepines 100 ng/mL Cannabinoids 50 ng/mL Cocaine Metabolite 150 ng/mL Fentanyl 1 ng/mL Hydrocodone / Hydromorphone 300 ng/mL Methadone Metabolite 100 ng/mL Morphine / Codeine 300 ng/mL Oxycodone / Oxymorphone 100 ng/mL Screening results are presumptive and can only be used for medical purposes. Confirmatory testing is available upon request. *Note: Due to a large number of results and/or encounters for the requested time period, some results have not been displayed. A complete set of results can be found in Results Review. Please approve if appropriate. Thank you, Gracie Nogueira PharmD Clinical Pharmacist [facility] ([facility]) 08/28/24 3:56 PM [phone] * Telephone Encounter - Sofía Regalado PHARM Tech - 08/27/2024 12:58 PM EDT Did you pend patient's preferred pharmacy and medication before forwarding?yes Pharmacy: [facility] Pending Prescriptions: Disp Refills oxyCODONE-Acetaminophen 10-325 MG Oral Ta*120 Ta*0 Sig: Take 1 Tablet by mouth every 6 hours as needed for Pain, Severe. Last Visit: 07/29/2024 (in office), 11/21/2022 (telemedicine) Next Visit: Visit date not found If no future appointments scheduled, and last appointment is greater than a year ago, please schedule patient for a follow-up appointment Last date the medication was ordered: 07/28/2024 Is this request for a controlled substance?Yes, What was the last refill date 07/28/2024 w/ [id number] and dosage 10-325mg and Urine Drug Screen was completed Urine Drug Screen: Results for orders placed or performed in visit on 07/29/24 PAIN MANAGEMENT DRUG PANEL, URINE W/ INTERPRETATION Result Value Pain Management Interpretation Based on the medication information provided: The positive oxycodone screening result is CONSISTENT with oxycodone use. Confirmatory testing is available upon request. Amphetamines Screen, U Negative Benzodiazepines Screen, U Negative Cannabinoids Screen, U Negative Cocaine Metabolite Screen, U Negative Fentanyl Screen, U Negative Hydrocodone Screen, U Negative Methadone Metabolite Screen, U Negative Morphine/Codeine Screen, U Negative Oxycodone Screen, U Positive (A) Specimen Validity Interpretation Normal Creatinine, U 81 Narrative Cutoff Concentrations: Drug Level Amphetamines 500 ng/mL Benzodiazepines 100 ng/mL Cannabinoids 50 ng/mL Cocaine Metabolite 150 ng/mL Fentanyl 1 ng/mL Hydrocodone / Hydromorphone 300 ng/mL Methadone Metabolite 100 ng/mL Morphine / Codeine 300 ng/mL Oxycodone / Oxymorphone 100 ng/mL Screening results are presumptive and can only be used for medical purposes. Confirmatory testing is available upon request. *Note: Due to a large number of results and/or encounters for the requested time period, some results have not been displayed. A complete set of results can be found in Results Review. Patient Phone Numbers Labs: Lab Results Component Value Date/Time CREAT 1.5 (H) 07/29/2024 12:00 PM CREAT 1.30 (A) 06/03/2020 12:00 AM CREAT 1.5 (H) 03/23/2020 03:39 PM CREAT 0.7 08/21/1996 08:30 AM POTASSIUM 4.3 07/29/2024 12:00 PM POTASSIUM 4.2 06/03/2020 12:00 AM POTASSIUM 4.2 03/23/2020 03:39 PM POTASSIUM 4.3 08/21/1996 08:30 AM TSH 2.04 12/21/2021 12:27 PM TSH 1.320 06/03/2020 12:00 AM TSH 1.79 03/23/2020 03:39 PM TSH 1.24 08/28/1996 02:50 PM LDL 65 07/29/2024 12:00 PM LDL 65 01/14/2023 10:05 AM LDL 69 03/23/2020 03:39 PM LDL NOT APPLICABLE 03/23/2020 03:39 PM LDL 111. 08/21/1996 08:30 AM ALT 42 (H) 05/29/2024 02:03 PM ALT 18 03/23/2020 03:39 PM ALT 21 08/21/1996 08:30 AM HGBA1C 5.6 07/29/2024 12:00 PM HGBA1C 5.6 03/27/2021 11:49 AM HGBA1C 6.1 (A) 11/26/2019 12:00 AM HGBA1C 6.2 (H) 03/09/2019 03:08 PM documented in this encounter Plan of Treatment Upcoming Encounters Date Type Department Care Team (Late st Contact Info) Description 09/01/2024 3:00 PM EDT [facility] [address] [place] [address] Alma Rosa Washburn PA-C [address] [address] [address] 09/10/2024 7:05 AM EDT Laboratory Lab Mobile Phlebotomy [address] [place] [address] [facility] Mobile Home Draw [address] [place] [address] [place] [address] 09/11/2024 6:00 AM EDT Anticoagulation Central[facility]acy Services, [address] [place] [address] [place] [address] 09/16/2024 1:30 PM EDT [facility] [place], [facility] [address] [address] [address], [facility] [address] [place] [address] Health Maintenance Due Date Last Done Comments [...] 02/01/2015, 11/20/2007, 09/21/1998 CKD HGB USE SMARTSET 10119 05/29/202505/29, 08/27/2023, 08/27/2023, Additional history exists Albumin/Creatinine Ratio 07/29/2025 025, 07/27/2021, 01/15/2020, Additional history exists CKD PHOS USE SMARTSET 06258 07/29/202507/18, 10/21/2023, 03/02/2022, Additional history exists Pneumococcal Vaccine: 50+ Years Completed 08/04/2014, 12/29/2009 Zoster Vaccines Completed 11/14/2018, 10/15, 05/30/2018, Additional history exists VITAMIN D LEVEL ONCE IN A LIFETIME-USE SMARTSET# [id number] Completed 07/04/2021, 09/12/2020, 01/11/2020, Additional history exists [...] failure and stage 3b chronic kidney disease ([facility]) 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 disturbance, psychotic disturbance, mood disturbance, or anxiety, unspecified dementia severity ([facility]) Cardiac pacemaker in situ Hemiplegia, 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HCC) Hemiplegia affecting unspecified side, late effect of cerebrovascular disease Major depressive disorder, recurrent episode, mild (HCC) Major depressive disorder, recurrent episode, mild Polymyalgia rheumatica ([facility]) Polymyalgia rheumatica Hypertensive heart and kidney 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 and stage 3b chronic kidney disease ([facility])- Primary Advanced care planning/counseling discussion Other specified counseling ATHEROSCLEROTIC CORONARY DISEASE Unspecified cardiovascular disease Paroxysmal atrial fibrillation (HCC) Atrial fibrillation 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[facility]) Sinoatrial node dysfunction Cardiac pacemaker in situ Type 2 diabetes mellitus with stage 3b chronic kidney disease, without long-term current use of insulin ([facility]) DM peripheral angiopathy ([facility]) Type II or unspecified type diabetes mellitus with peripheral circulatory disorders, not stated as uncontrolled Hypertensive heart and kidney 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 and stage 3b chronic kidney disease ([facility])- Primary 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 behavioral disturbance, psychotic disturbance, mood disturbance, or anxiety, unspecified dementia type ([facility]) Paroxysmal atrial fibrillation (HCC) Atrial fibrillation 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 status epilepticus, unspecified epilepsy type ([facility]) Type 2 diabetes mellitus with diabetic chronic kidney disease, unspecified CKD stage, unspecified whether bed bug exterminator insulin use ([facility]) Open-angle glaucoma, unspecified glaucoma stage, unspecified laterality, unspecified open-angle glaucoma type Atherosclerosis of unga coronary artery without angina pectoris, unspecified whether unga or transplanted heart Hyperparathyroidism, secondary renal (HCC) Secondary hyperparathyroidism (of renal origin) Hemiplegia, 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HCC) Hemiplegia affecting unspecified side, late effect of cerebrovascular disease Urinary incontinence, unspecified type Hypertensive heart and kidney 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 and stage 3b chronic kidney disease ([facility])- Primary Hemiplegia, 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HCC) Hemiplegia [...] depressive disorder, recurrent episode, mild Atherosclerosis of unga coronary artery of unga heart without angina pectoris Hyperparathyroidism, secondary renal [...] and were consensually agreed upon. Care Teams Gypsum Roofer Relationship Specialty Start Date End Date Christiano Harkins III, MD [address] [place] [address] PCP - General 01/30/1996 documented as of this encounter
--- OUTSIDE RECORDS SUMMARY | 2024-10-06 00:21 | External Medical Summary | Summary of Care ---
Author Name Unknown Organization [facility] Address [address] [place] [address] Phone [phone] Care Team Providers Care Tier In Name Role Phone Nhung LOPEZ MD, Steve Langston Primary Care Provider [phone] Reason for Visit * Reason Onset Date Comments Order Request 08/25/2024 Encounter Details Date Type Department Care Team ([facility] Contact Info) Description 08/25/2024 Telephone Family Practice [facility] [place] [address] [facility] [address] Steve Hooker III, MD [address] [place] [address] Order Request Allergies Active Allergy Reactions Criticality Noted Date Comments Adhesive Tape 07/05/2022 Doxycycline Nausea/vomiting 11/03/2010 Metoclopramide Hcl Neuro complications (Please comment) 12/07/2010 Developed worsening tremor and lip smacking. Naproxen 01/23/2012 Can not tolerate-gets very emotional and depressed documented as of this encounter (statuses as of 08/26/2024) Medications ASPIRIN 81 MG PO TABS Take [...] Information Patient not taking.Reported on 05/29/2024 Biotin 63275 MCG Oral Tablet Take 1 Tablet by [...] provider. 1 Each 05/26/20 23 Active Depend Rox-Zfrb-Knzis-M Use as directed. 30 Each 11 07/03/19 [...] 5 2:13 PM EST 07/23/19 25 Active oxyCODONE-Acetami nophen 10-325 MG Oral TabletIndications :Pain Take 1 Tablet by mouth every 6 hours as needed for Pain, Severe. 120 Tablet 5 12:07 PM EST 07/28/19 25 Active Atorvastatin Calcium 40 MG Oral [...] 100 Tablet 3 5 9:07 AM EST 02/24/20 25 Active DULoxetine HCl 60 MG Oral Capsule Delayed Release Particles (Cymbalta)Indicat ions:Moderate persistent asthma without complication TAKE ONE CAPSULE BY MOUTH EVERY MORNING DO NOT CUT, CRUSH OR CHEW 90 Capsule 3 5 3:41 PM EST 08/20/19 25 Active Torsemide 20 MG Oral Tablet (Demadex) Take 1 Tablet by mouth in the morning and 1 Tablet in the evening. 90 Tablet 1 08/25/19 25 Active documented as of this encounter (statuses as of 08/26/2024) Active Problems Problem Noted Date Diagnosed Date [...] 05/26/2023 DM peripheral angiopathy 05/26/2023 Atherosclerosis of [place] co ronary artery without angina pectoris 05/26/2023 [...] PM EDT): Stable, interactive today Age-related osteoporosis shahla fletcher current pathological fracture 02/14/2022 Assessment & Plan [...] in the Comments) Remote Patient Monitoring Vendor: Quickshift Device(s): Connected Scale Self - Management Plan [...] SGLT2 Inhibitor: none Remote Patient Monitoring Vendor: Quickshift Device(s): Connected Scale Self - Management Plan [...] SGLT2 Inhibitor: none Remote Patient Monitoring Vendor: Quickshift Device(s): Connected Scale Self - Management Plan [...] 12/22/13 Steve Hooker III, MD [facility] [place] Facet arthropathy, lumbar 10/07/2013 Type 2 diabetes mellitus wit h hemoglobin A1c goal of less than 8.0% 07/15/2013 Overview (10/13/2015): ICD-10 update of inactive term History of tobacco use 02/18/2013 Hearing loss 02/18/2013 DYSLIPIDEMIA, GOAL LDL BELOW 70 05/30/2009 Overview (05/30/2009): Per Lipid Taxonomy. 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 * Telephone Encounter - Cherelle Gallo LPN - 08/25/2024 2:21 PM EDT Requested orders pended. * Telephone Encounter - Vesta Molina OSA - 08/25/2024 1:44 PM EDT Merari with [facility] called advising pt recently completed antibiotic for a UTI however, pt iscomplaining of urination urges and is unable to void. Merari tried to collect urine sample to perform a dipstick test however, pt still unable to void while at her home. Due to this, Merari is requesting a urinalysis and culture to be ordered and faxed to them. An order was requested for this patient. Name of Requesting Provider: [facility] Order Requested: Urinalysis and urine culture Diagnosis/Reason for Request: Frequent urges and difficulty voiding If order request is for Mammogram: Is the patient having any breast symptoms? N/A Is there a chance of ? N/A Has the patient had any breast problems in the past? NA What location AND department does the patient wish to have their order completed at? [facility] Fax Number, if applicable: [phone] If the caller is not a current patient, please advise the patient to call their current PCP to havethe order's prior to being seen in our office. The patient was informed that our providers would not order anything (medication, labs, etc.) prior to being seen. documented in this encounter Plan of Treatment Upcoming Encounters Date Type Department Care Team (Late st Contact Info) Description 09/01/2024 3:00 PM EDT Home Visit Lisa at [facility] [address] [place] [address] Alma Rosa Washburn PA-C [address] [place] [address] 09/10/2024 7:05 AM EDT Laboratory Lab Mobile Phlebotomy [address] [place] [address] [place], [facility] Mobile Home Draw [address] [place] [address] [place] [address] 09/11/2024 6:00 AM EDT Anticoagulation [facility], Alfred Guevara [address] [place] [address] [place] [address] [facility], [address] [place] [address] 09/16/2024 1:30 PM EDT Home Visit Lisa at [facility] [address] [place] [address], [facility] [address] [place] [address] Scheduled Orders Name Type Priority Associated Diagnoses Orde r Schedule CULTURE, URINE, QUANTITATIVE Lab Routine Urge incontinence Expected: 08/26/2024, Expires: 08/26/2025 URINALYSIS, REFLEX TO MICROSCOPIC Lab Routine Urge incontinence Expected: 08/26/2024, Expires: 08/25/2025 Health Maintenance Due Date Last Done Comments [...] 02/01/2015, 11/20/2007, 09/21/1998 CKD HGB USE SMARTSET 03578 05/29/202505/29, 08/27/2023, 08/27/2023, Additional history exists Albumin/Creatinine Ratio 07/29/2025 025, 07/27/2021, 01/15/2020, Additional history exists CKD PHOS USE SMARTSET 90272 07/29/202507/18, 10/21/2023, 03/02/2022, Additional history exists Pneumococcal Vaccine: 50+ Years Completed 08/04/2014, 12/29/2009 Zoster Vaccines Completed 11/14/2018, 10/15, 05/30/2018, Additional history exists VITAMIN D LEVEL ONCE IN A LIFETIME-USE SMARTSET# [id number] Completed 07/04/2021, 09/12/2020, 01/11/2020, Additional history exists [...] failure and stage 3b chronic kidney disease ([facility]) 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 disturbance, psychotic disturbance, mood disturbance, or anxiety, unspecified dementia severity ([facility]) Cardiac pacemaker in situ Hemiplegia, 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HCC) Hemiplegia affecting unspecified side, late effect of cerebrovascular disease Major depressive disorder, recurrent episode, mild (HCC) Major depressive disorder, recurrent episode, mild Polymyalgia rheumatica (HCC) Polymyalgia rheumatica Hypertensive heart and kidney 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 and stage 3b chronic kidney disease ([facility])- Primary Advanced care planning/counseling discussion Other specified counseling ATHEROSCLEROTIC CORONARY DISEASE Unspecified cardiovascular disease Paroxysmal atrial fibrillation (HCC) Atrial fibrillation 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[facility]) Sinoatrial node dysfunction Cardiac pacemaker in situ Type 2 diabetes mellitus with stage 3b chronic kidney disease, without long-term current use of insulin ([facility]) DM peripheral angiopathy ([facility]) Type II or unspecified type diabetes mellitus with peripheral circulatory disorders, not stated as uncontrolled Hypertensive heart and kidney 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 and stage 3b chronic kidney disease ([facility])- Primary 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 behavioral disturbance, psychotic disturbance, mood disturbance, or anxiety, unspecified dementia type (HCC) Paroxysmal atrial fibrillation (HCC) Atrial fibrillation 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 status epilepticus, unspecified epilepsy type ([facility]) Type 2 diabetes mellitus with diabetic chronic kidney disease, unspecified CKD stage, unspecified whether full charge bookkeeper insulin use ([facility]) Open-angle glaucoma, unspecified glaucoma stage, unspecified laterality, unspecified open-angle glaucoma type Atherosclerosis of [place] coronary artery without angina pectoris, unspecified whether [place] or transplanted heart Hyperparathyroidism, secondary renal (HCC) Secondary hyperparathyroidism (of renal origin) Hemiplegia, 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HCC) Hemiplegia affecting unspecified side, late effect of cerebrovascular disease Urinary incontinence, unspecified type Hypertensive heart and kidney 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 and stage 3b chronic kidney disease ([facility])- Primary Hemiplegia, 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HCC) Hemiplegia affecting unspecified side, late effect of cerebrovascular disease 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 behavioral disturbance, psychotic disturbance, mood disturbance, or anxiety, unspecified dementia type ([facility]) Paroxysmal atrial fibrillation (HCC) Atrial fibrillation 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 status epilepticus, unspecified epilepsy type ([facility]) Type 2 diabetes mellitus with stage 3b chronic kidney disease, without long-term current use of insulin (HCC) Open-angle glaucoma, unspecified glaucoma stage, unspecified laterality, unspecified open-angle glaucoma type Major depressive disorder, recurrent episode, mild (HCC) Major depressive disorder, recurrent episode, mild Atherosclerosis of [place] coronary artery of [place] heart without angina pectoris Hyperparathyroidism, secondary renal (HCC) Secondary hyperparathyroidism (of renal origin) Age-related osteoporosis without current pathological fracture Senile osteoporosis Lymphedema Other lymphedema Urge incontinence- Primary documented in this encounter Advance Directives [...] and were consensually agreed upon. Care Teams Tier In Relationship Specialty Start Date End Date Steve Hooker III, MD [address] [place] [address] PCP - General 01/30/1996 documented as of this encounter
--- OUTSIDE RECORDS SUMMARY | 2024-10-06 00:21 | External Medical Summary | Summary of Care ---
Author Name Unknown Organization [facility] Address [address] [place] [address] Phone [phone] Care Team Providers Care Rn Clinical Coordinator Name Role Phone Nhung LOPEZ MD, Steve Langston Primary Care Provider [phone] Reason for Visit * Reason Onset Date Comments [facility]: Maintenance 08/31/2024 Encounter Details Date Type Department Care Team (Late st Contact Info) Description 08/31/2024 Telephone [facility], [place] [address] [place] [id number] Jazmine Alas, [place] [address] [place] [address] [facility]: Maintenance Allergies Active Allergy Reactions Criticality Noted Date Comments Adhesive Tape 07/05/2022 Doxycycline Nausea/vomiting 11/03/2010 Metoclopramide Hcl Neuro complications (Please comment) 12/07/2010 Developed worsening tremor and lip smacking. Naproxen 01/23/2012 Can not tolerate-gets very emotional and depressed documented as of this encounter (statuses as of 08/31/2024) Medications ASPIRIN 81 MG PO TABS Take [...] Information Patient not taking.Reported on 05/29/2024 Biotin 59385 MCG Oral Tablet Take 1 Tablet by [...] provider. 1 Each 05/26/20 23 Active Depend Nqq-Cukn-Vwfpu-M Use as directed. 30 Each 11 07/03/19 [...] Capsule 3 5 3:41 PM EST 08/20/19 Active Torsemide 20 MG Oral Tablet (Demadex) Take 1 Tablet by mouth in the morning and 1 Tablet in the evening. 90 Tablet 1 5 7:40 AM EDT 08/25/19 Active oxyCODONE-Acetami nophen 10-325 MG Oral TabletIndications :Pain Take 1 Tablet by mouth every 6 hours as needed for Pain, Severe. 120 Tablet 08/30/19 25 Active documented as of this encounter (statuses as of 08/31/2024) Active Problems Problem Noted Date Diagnosed Date [...] 05/26/2023 DM peripheral angiopathy 05/26/2023 Atherosclerosis of [place] co ronary artery without angina pectoris 05/26/2023 [...] in the Comments) Remote Patient Monitoring Vendor: Idea Shower Device(s): Connected Scale Self - Management Plan [...] SGLT2 Inhibitor: none Remote Patient Monitoring Vendor: Idea Shower Device(s): Connected Scale Self - Management Plan [...] SGLT2 Inhibitor: none Remote Patient Monitoring Vendor: Idea Shower Device(s): Connected Scale Self - Management Plan [...] 12/22/13 Steve Hooker III, MD [facility] [place] Facet arthropathy, lumbar 10/07/2013 Type 2 diabetes mellitus wit h hemoglobin A1c goal of less than 8.0% 07/15/2013 Overview (10/13/2015): ICD-10 update of inactive term History of tobacco use 02/18/2013 Hearing loss 02/18/2013 DYSLIPIDEMIA, GOAL LDL BELOW 70 05/30/2009 Overview (05/30/2009): Per Lipid Taxonomy. S/P angioplasty with stent 09/05/2002 documented as of this encounter (statuses as of 08/31/2024) Resolved Problems Problem Noted Date Diagnosed Date [...] as of this encounter (statuses as of 08/31/2024) Immunizations Name Administration Dates Next Due COVID-19 mRNA, LNP-s, No Pre serve, 2-Dose Series ([employer]) 06/01/2021,10/15/2020,09/24/2020 Covid-19, Mrna, Lnp-s, Pf, B ivalent, [...] No 05/07/2024 Does the household have a presbyterian espa[facility]ola hospitallar source of income? 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 She is needing the visit notes from the visit with Mandy Clemons on 06/29. The one she has does not say electronically signed. Faxed the note that shows signed to Yloanda at [phone]. documented in this encounter Plan of Treatment Upcoming Encounters Date Type Department Care Team (Late st Contact Info) Description 09/01/2024 3:00 PM EDT [facility] Visit [facility] [address] [address] Alma Rosa Clemons PA-C [address] [address] 09/10/2024 7:05 AM EDT Laboratory Lab Mobile Phlebotomy [address] [place] [address] [facility] Mobile Home Draw [address] [place] [address] [place] [address] 09/11/2024 6:00 AM EDT Anticoagulation [facility], Alfred Guevara [address] [place] [address] [place] [address] [place] [address] 09/16/2024 1:30 PM EDT [facility] [address] [place] [address], [facility] [address] [place] [address] Health Maintenance Due Date Last Done Comments [...] 02/01/2015, 11/20/2007, 09/21/1998 CKD HGB USE SMARTSET 52104 05/29/202505/29, 08/27/2023, 08/27/2023, Additional history exists Albumin/Creatinine Ratio 07/29/2025 025, 07/27/2021, 01/15/2020, Additional history exists CKD PHOS USE SMARTSET 81284 07/29/202507/18, 10/21/2023, 03/02/2022, Additional history exists Pneumococcal Vaccine: 50+ Years Completed 08/04/2014, 12/29/2009 Zoster Vaccines Completed 11/14/2018, 10/15, 05/30/2018, Additional history exists VITAMIN D LEVEL ONCE IN A LIFETIME-USE SMARTSET# [id number] Completed 07/04/2021, 09/12/2020, 01/11/2020, Additional history exists [...] and were consensually agreed upon. Care Teams Rn Clinical Coordinator Relationship Specialty Start Date End Date Steve Hooker III, MD [address] [place] [address] PCP - General 01/30/1996 documented as of this encounter
--- OUTSIDE RECORDS SUMMARY | 2024-10-06 00:21 | External Medical Summary | Summary of Care ---
Author Name Unknown Organization [facility] Address [address] [place] [address] Phone [phone] Care Team Providers Care Fiberglass Technician Name Role Phone Nhung LOPEZ MD, John E Primary Care Provider [phone] Reason for Referral * Medication Prior Authorization - Pending Review Specialty Diagnoses / Procedures Referred By Lizabeth sim Referred To Contact Diagnoses Pain Christiano Harkins III, MD [address] [place], [place] [address] Phone: tel: fax: Referral ID Status Reason Start Date Expiration Date V isits Requested Visits Authorized [id number] Pending Review [phone] Reason for Visit * Reason Onset Date Comments Medication Refill 08/27/2024 Encounter Details Date Type Department Care Team (Late st Contact Info) Description 08/27/2024 Refill Family Practice State [facility] [place] [address] [place] [id number] Christiano Harkins III, MD [address] [place] [id number] Pain Allergies Active Allergy Reactions Criticality Noted [...] hemoglobin A1c goal of less than 8.0% ([facility]) Use to test once daily DX E11.9 100 Each 3 07/20/19 21 Active Additional Information Patient not taking.Reported on 05/29/2024 Biotin 54647 MCG Oral Tablet Take 1 Tablet by [...] provider. 1 Each 05/26/20 23 Active Depend Jxj-Jgdr-Ahzzd-M Use as directed. 30 Each 11 07/03/19 [...] 05/26/2023 DM peripheral angiopathy 05/26/2023 Atherosclerosis of [place] co ronary artery without angina pectoris 05/26/2023 [...] in the Comments) Remote Patient Monitoring Vendor: Sazze Device(s): Connected Scale Self - Management Plan [...] SGLT2 Inhibitor: none Remote Patient Monitoring Vendor: Sazze Device(s): Connected Scale Self - Management Plan [...] SGLT2 Inhibitor: none Remote Patient Monitoring Vendor: Sazze Device(s): Connected Scale Self - Management Plan [...] 12/22/13 Christiano Harkins III, MD [facility] [place] Facet arthropathy, lumbar 10/07/2013 Type 2 [...] mRNA, LNP-s, No Pre serve, 2-Dose Series (Androcial) 06/01/2021,10/15/2020,09/24/2020 Covid-19, Mrna, Lnp-s, Pf, B ivalent, [...] Industry 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 Thank you, Parth Finch Electronic Systems Security Assessment I [facility]ized [facility] Services ([facility]) 08/29/2024,8:40 AM * Telephone Encounter - Christiano Harkins III, MD - 08/29/2024 8:28 AM EDTSigned Prescriptions: Disp Refills oxyCODONE-Acetaminophen 10-325 MG Oral Tab*120 Ta*0 Sig: Take 1 Tablet by mouth every 6 hours as needed for Pain, Severe.Authorizing Provider: CHRISTIANO HARKINS III----- * Telephone Encounter - Gracie Nogueira [facility] - 08/28/2024 3:57 PM EDTPending Prescriptions: Disp Refills oxyCODONE-Acetaminophen 10-325 MG Oral Tab*120 Ta*0 Sig: Take 1 Tablet by mouth every 6 hours as needed for Pain, Severe. * Telephone Encounter - Gracie Nogueira [facility] - 08/28/2024 3:56 PM EDT I have reviewed the patient’s controlled substance dispensing history in the Prescription Drug Monitoring Program in compliance with the [facility] regulations before prescribing a controlled substance. PDMP checked on 08/28/2024. Pending Prescriptions: Disp Refills oxyCODONE-Acetaminophen 10-325 MG Oral Ta*120 Ta*0 Sig: Take 1 Tablet by mouth every 6 hours as needed for Pain, Severe. Last Visit: 07/29/2024 (in office), 11/21/2022 (telemedicine) Next Visit: Visit date not found Date medication was last filled: 07/31/24 Date medication is due for refill: 08/30/24 Pharmacy: [facility] Is this request for [...] Clinical Pharmacy Services ([facility]) 08/28/24 3:56 PM [phone] * Telephone Encounter - Sofía Regalado PHARM Tech - 08/27/2024 12:58 PM EDT Did you pend patient's preferred pharmacy and medication before forwarding?yes Pharmacy: [facility] Pending Prescriptions: Disp Refills [...] was the last refill date 07/28/2024 w/ and dosage 10-325mg and Urine Drug Screen [...] 3:00 PM EDT [facility] [address] [place] [address] Alma Rosa Washburn PA-C [address] [place] [address] 09/10/2024 7:05 AM EDT Laboratory Lab Mobile Phlebotomy [address] [place] [address] [facility] Mobile Home Draw [address] [place] [address] [place] [address] 09/11/2024 6:00 AM EDT Anticoagulation Centralized Clinical Pharmacy Services, [address] [place] [address] [place] [address] 09/16/2024 1:30 PM EDT [facility] [place] [address] [place] [address], [place] [address] [place] [address] Health Maintenance Due Date Last Done Comments [...] 02/01/2015, 11/20/2007, 09/21/1998 CKD HGB USE SMARTSET 64801 05/29/202505/29, 08/27/2023, 08/27/2023, Additional history exists Albumin/Creatinine Ratio 07/29/2025 025, 07/27/2021, 01/15/2020, Additional history exists CKD PHOS USE SMARTSET 51227 07/29/202507/18, 10/21/2023, 03/02/2022, Additional history exists Pneumococcal Vaccine: 50+ Years Completed 08/04/2014, 12/29/2009 Zoster Vaccines Completed 11/14/2018, 10/15, 05/30/2018, Additional history exists VITAMIN D LEVEL ONCE IN A LIFETIME-USE SMARTSET# [id number] Completed 07/04/2021, 09/12/2020, 01/11/2020, Additional history exists [...] failure and stage 3b chronic kidney disease ([facility]) 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 disturbance, psychotic disturbance, mood disturbance, or anxiety, unspecified dementia severity ([facility]) Cardiac pacemaker in situ Hemiplegia, 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HCC) Hemiplegia affecting unspecified side, late effect of cerebrovascular disease Major depressive disorder, recurrent episode, mild (HCC) Major depressive disorder, recurrent episode, mild Polymyalgia rheumatica ([facility]) Polymyalgia rheumatica Hypertensive heart and kidney 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 and stage 3b chronic kidney disease ([facility])- Primary Advanced care planning/counseling discussion Other specified counseling ATHEROSCLEROTIC CORONARY DISEASE Unspecified cardiovascular disease Paroxysmal atrial fibrillation (HCC) Atrial fibrillation 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[facility]) Sinoatrial node dysfunction Cardiac pacemaker in situ Type 2 diabetes mellitus with stage 3b chronic kidney disease, without long-term current use of insulin ([facility]) DM peripheral angiopathy ([facility]) Type II or unspecified type diabetes mellitus with peripheral circulatory disorders, not stated as uncontrolled Hypertensive heart and kidney 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 and stage 3b chronic kidney disease ([facility])- Primary 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 behavioral disturbance, psychotic disturbance, mood disturbance, or anxiety, unspecified dementia type ([facility]) Paroxysmal atrial fibrillation (HCC) Atrial fibrillation 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 status epilepticus, unspecified epilepsy type ([facility]) Type 2 diabetes mellitus with diabetic chronic kidney disease, unspecified CKD stage, unspecified whether 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 insulin use ([facility]) Open-angle glaucoma, unspecified glaucoma stage, unspecified laterality, unspecified open-angle glaucoma type Atherosclerosis of [place] coronary artery without angina pectoris, unspecified whether [place] or transplanted heart Hyperparathyroidism, secondary renal (HCC) Secondary hyperparathyroidism (of renal origin) Hemiplegia, 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HCC) Hemiplegia affecting unspecified side, late effect of cerebrovascular disease Urinary incontinence, unspecified type Hypertensive heart and kidney 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 and stage 3b chronic kidney disease ([facility])- Primary Hemiplegia, 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HCC) Hemiplegia affecting unspecified [...] depressive disorder, recurrent episode, mild Atherosclerosis of [place] coronary artery of [place] heart without angina pectoris Hyperparathyroidism, secondary renal [...] and were consensually agreed upon. Care Teams Fiberglass Technician Relationship Specialty Start Date End Date Christiano Harkins III, MD [address] [place] [address] PCP - General 01/30/1996 documented as of this encounter
--- OUTSIDE RECORDS SUMMARY | 2024-10-06 00:22 | External Medical Summary | Summary of Care ---
Author Name Unknown Organization [facility] Address [address] [facility] [place] [address] Phone [phone] Care Team Providers Care Industrial Engineering Professor Name Role Phone Nhung LOPEZ MD, Steve Langston Primary Care Provider [phone] Reason for Visit * Reason Comments Dosage Adjustment Via Phone (anticoag Cl inic) Encounter Details Date Type Department Care Team ([facility] st Contact Info) Description 08/21/2024 6:00 AM EST Anticoagulation Centralized Clinical Pharmacy Services, Alfred Guevara [address] [place] [address] [place] [address] [facility], [address] [place] [address] Anticoagulation management encounter* Allergies Active Allergy Reactions Criticality Noted Date Comments Adhesive Tape 07/05/2022 Doxycycline Nausea/vomiting 11/03/2010 Metoclopramide Hcl Neuro complications (Please comment) 12/07/2010 Developed worsening tremor and lip smacking. Naproxen 01/23/2012 Can not tolerate-gets very emotional and depressed documented as of this encounter (statuses as of 08/21/2024) Medications ASPIRIN 81 MG PO TABS Take [...] A1c goal of less than 8.0% ([facility]) Use to test once daily DX E11.9 100 Each 3 07/20/19 21 Active Additional Information Patient not taking.Reported on 05/29/2024 Biotin 68410 MCG Oral Tablet Take 1 Tablet by [...] provider. 1 Each 05/26/20 23 Active Depend Nyi-Jtpd-Qiczk-M Use as directed. 30 Each 11 07/03/19 [...] 5 12:05 PM EST 04/03/20 24 Active Torsemide 20 MG Oral Tablet (Demadex) Take 1 Tablet by mouth in the morning and 1 Tablet in the evening. 90 Tablet 1 4 12:35 PM EST 06/02/20 24 Active Omeprazole 20 MG Oral Capsule [...] Tablet 3 5 9:07 AM EST 08/10/19 Active DULoxetine HCl 60 MG Oral Capsule Delayed Release Particles (Cymbalta)Indicat ions:Moderate persistent asthma without complication TAKE ONE CAPSULE BY MOUTH EVERY MORNING DO NOT CUT, CRUSH OR CHEW 90 Capsule 3 5 3:41 PM EST 08/20/19 Active documented as of this encounter (statuses as of 08/21/2024) Active Problems Problem Noted Date Diagnosed Date [...] EDT): Stable, interactive today Age-related osteoporosis wit hodevang current pathological fracture 02/14/2022 Assessment & Plan [...] in the Comments) Remote Patient Monitoring Vendor: Sirrus Technology Device(s): Connected Scale Self - Management Plan [...] SGLT2 Inhibitor: none Remote Patient Monitoring Vendor: Sirrus Technology Device(s): Connected Scale Self - Management Plan [...] SGLT2 Inhibitor: none Remote Patient Monitoring Vendor: Sirrus Technology Device(s): Connected Scale Self - Management Plan [...] 12/22/13 Steve Hooker III, MD [facility] [place] Facet arthropathy, lumbar 10/07/2013 Type 2 diabetes mellitus wit h hemoglobin A1c goal of less than 8.0% 07/15/2013 Overview (10/13/2015): ICD-10 update of inactive term History of tobacco use 02/18/2013 Hearing loss 02/18/2013 DYSLIPIDEMIA, GOAL LDL BELOW 70 05/30/2009 Overview (05/30/2009): Per Lipid Taxonomy. S/P angioplasty with stent 09/05/2002 documented as of this encounter (statuses as of 08/21/2024) Resolved Problems Problem Noted Date Diagnosed Date [...] as of this encounter (statuses as of 08/21/2024) Immunizations Name Administration Dates Next Due COVID-19 mRNA, LNP-s, No Pre serve, 2-Dose Series (Uniken [employer]) 06/01/2021,10/15/2020,09/24/2020 Covid-19, Mrna, Lnp-s, Pf, B [...] No 05/07/2024 Does the household have a [facility] source of income? 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 Lea Espana Rph, Pharm.D. Clinical Pharmacist [facility] [phone] 08/21/2024,9:27 AM * Royal Rankin PHARM Student - 08/21/2024 8:28 AM EST Medication Therapy Disease Management - Anticoagulation Patient: Rhea Diaz | : 1935 Subjective Contacts Contact Date/Time Type Contact Phone/Fax 08/21/2024 10:15 AM EST Phone (Outgoing) RUFINO MCCALLUM (Emergency Contact) [phone] (M) Left Message Objective Current Warfarin Dose As of 08/21/2024 Warfarin maintenance plan: 4 mg (4 mg x 1) every Tue, Myrna; 6 mg (4 mg x 1.5) all other days INR Result As of 08/21/2024 INR goal: 2.0-3.0 INR used for dosin.9 (08/20/2024) Assessment & Plan Warfarin Plan As of 08/21/2024 Full warfarin instructions: 4 mg every Tue, Myrna; 6 mg all other days No change documented: Royal Rankin PHARM Student Next INR check: 09/10/2024 Repeat PT/INR in 3 week(s) Weekly dose: not changed Additional Dosing Information: Description GML - Call Rufino with results/dosing Amiodarone decreased 01/2021 SARAI Rebollar Clinical Pharmacist 08/21/2024, 8:28 AM Cosigned by Lea Espana RPh at 08/21/2024 4:09 PM EST documented in this encounter Plan of Treatment Upcoming Encounters Date Type Department Care Team (Late st Contact Info) Description 09/01/2024 3:00 PM EDT Home Visit [facility] at [facility] [address] [place] [address] Alma Rosa Washburn PA-C [address] [place] [address] 09/10/2024 7:05 AM EDT Laboratory Lab Mobile Phlebotomy [place] [address] [place] [facility] [place] [address] [facility] Mobile Home Draw [address] [place] [address] [place] [address] 09/11/2024 6:00 AM EDT Anticoagulation Centralized Clinical Pharmacy Services, Alfred [address] [place] [address] [facility]cps, [address] [place] [address] 09/16/2024 1:30 PM EDT Home Visit Lisa at [facility] [address] [place] [address], [facility] [address] [place] [address] Health Maintenance Due Date Last Done Comments [...] 02/01/2015, 11/20/2007, 09/21/1998 CKD HGB USE SMARTSET 95512 05/29/202505/29, 08/27/2023, 08/27/2023, Additional history exists Albumin/Creatinine Ratio 07/29/2025 025, 07/27/2021, 01/15/2020, Additional history exists CKD PHOS USE SMARTSET 13556 07/29/202507/18, 10/21/2023, 03/02/2022, Additional history exists Pneumococcal Vaccine: 50+ Years Completed 08/04/2014, 12/29/2009 Zoster Vaccines Completed 11/14/2018, 10/15, 05/30/2018, Additional history exists VITAMIN D LEVEL ONCE IN A LIFETIME-USE SMARTSET# [id number] Completed 07/04/2021, 09/12/2020, 01/11/2020, Additional history exists [...] and stage 3b chronic kidney disease ([facility]) 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 disturbance, psychotic disturbance, mood disturbance, or anxiety, unspecified dementia severity ([facility]) Cardiac pacemaker in situ Hemiplegia, 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[facility]) Hemiplegia affecting unspecified side, late effect of cerebrovascular disease Major depressive disorder, recurrent episode, mild (HCC) Major depressive disorder, recurrent episode, mild Polymyalgia rheumatica ([facility]) Polymyalgia rheumatica Hypertensive heart and kidney 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 and stage 3b chronic kidney disease ([facility])- Primary Advanced care planning/counseling discussion Other specified counseling ATHEROSCLEROTIC CORONARY DISEASE Unspecified cardiovascular disease Paroxysmal atrial fibrillation ([facility]) Atrial fibrillation 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[facility]) Sinoatrial node dysfunction Cardiac pacemaker in situ Type 2 diabetes mellitus with stage 3b chronic kidney disease, without long-term current use of insulin ([facility]) DM peripheral angiopathy ([facility]) Type II or unspecified type diabetes mellitus with peripheral circulatory disorders, not stated as uncontrolled Hypertensive heart and kidney 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 and stage 3b chronic kidney disease ([facility])- Primary 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 behavioral disturbance, psychotic disturbance, mood disturbance, or anxiety, unspecified dementia type ([facility]) Paroxysmal atrial fibrillation ([facility]) Atrial fibrillation 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 status epilepticus, unspecified epilepsy type ([facility]) Type 2 diabetes mellitus with diabetic chronic kidney disease, unspecified CKD stage, unspecified whether assistant terminal manager insulin use ([facility]) Open-angle glaucoma, unspecified glaucoma stage, unspecified laterality, unspecified open-angle glaucoma type Atherosclerosis of [place] coronary artery without angina pectoris, unspecified whether [place] or transplanted heart Hyperparathyroidism, secondary renal ([facility]) Secondary hyperparathyroidism (of renal origin) Hemiplegia, 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[facility]) Hemiplegia affecting unspecified side, late effect of cerebrovascular disease Urinary incontinence, unspecified type Hypertensive heart and kidney 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 and stage 3b chronic kidney disease ([facility])- Primary Hemiplegia, 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[facility]) Hemiplegia affecting unspecified side, late effect of cerebrovascular disease 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 behavioral disturbance, psychotic disturbance, mood disturbance, or anxiety, unspecified dementia type ([facility]) Paroxysmal atrial fibrillation ([facility]) Atrial fibrillation 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 status epilepticus, unspecified epilepsy type ([facility]) Type 2 diabetes mellitus with stage 3b chronic kidney disease, without long-term current use of insulin ([facility]) Open-angle glaucoma, unspecified glaucoma stage, unspecified laterality, unspecified open-angle glaucoma type Major depressive disorder, recurrent episode, mild (HCC) Major depressive disorder, recurrent episode, mild Atherosclerosis of [place] coronary artery of [place] heart without angina pectoris Hyperparathyroidism, secondary renal (HCC) Secondary hyperparathyroidism (of renal origin) Age-related osteoporosis without current pathological fracture Senile osteoporosis Lymphedema Other lymphedema Anticoagulation management encounter- Primary Encounter for therapeutic [...] and were consensually agreed upon. Care Teams Industrial Engineering Professor Relationship Specialty Start Date End Date Steve Hooker III, MD [address] [facility] [place] [address] PCP - General 01/30/1996 documented as of this encounter
--- OUTSIDE RECORDS SUMMARY | 2024-10-06 00:22 | External Medical Summary | Summary of Care ---
Author Name Unknown Organization [facility] Address [address] [place] [address] Phone [phone] Care Team Providers Care Biology Faculty Member Name Role Phone Nhung LOPEZ MD, Steve Langston Primary Care Provider [phone] Reason for Visit * Reason Onset Date Comments Appointment 08/21/2024 Encounter Details Date Type Department Care Team ([facility] Contact Info) Description 08/21/2024 [facility]phone [facility] [address] [facility] [place] [address] Yajaira De La Torre OSA [address] [place] [address] Appointment Allergies Active Allergy Reactions Criticality Noted [...] goal of less than 8.0% ([facility]) Use to test once daily DX E11.9 100 Each 3 07/20/19 21 Active Additional Information Patient not taking.Reported on 05/29/2024 Biotin 00232 MCG Oral Tablet Take 1 Tablet by [...] provider. 1 Each 05/26/20 23 Active Depend Qgb-Tuws-Cgcim-M Use as directed. 30 Each 11 07/03/19 [...] 05/26/2023 DM peripheral angiopathy 05/26/2023 Atherosclerosis of [place] co ronary artery without angina pectoris 05/26/2023 [...] in the Comments) Remote Patient Monitoring Vendor: Tokopedia Device(s): Connected Scale Self - Management Plan [...] SGLT2 Inhibitor: none Remote Patient Monitoring Vendor: Tokopedia Device(s): Connected Scale Self - Management Plan [...] Regimen: Beta Zayra Therapy: Metoprolol Succinate (ER) MAIRSABEL Inhibitor/ARB Therapy: none Diuretic therapy: Torsemide SGLT2 Inhibitor: none Remote Patient Monitoring Vendor: Tokopedia Device(s): Connected Scale Self - Management Plan [...] 12/22/13 Steve Hooker III, MD [facility] [place] Facet arthropathy, lumbar 10/07/2013 Type 2 diabetes [...] mRNA, LNP-s, No Pre serve, 2-Dose Series (Smarty Ring) 06/01/2021,10/15/2020,09/24/2020 Covid-19, Mrna, Lnp-s, Pf, B ivalent, [...] Industry Job Start Date Job End Date [employer] Not on file 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 Called lmom to confirm if 4/2 at 1:30pm is a good date and time. documented in this encounter Plan of Treatment Upcoming Encounters Date Type Department Care Team (Late st Contact Info) Description 09/01/2024 3:00 PM EDT Home Visit [facility] [address] [place] [address] Alma Rosa Clemons PA-C [address] [place] [address] 09/16/2024 1:30 PM EDT [facility] Visit [facility] [address] [place] [address], [facility] [address] [place] [address] Health Maintenance Due Date Last Done Comments [...] 02/01/2015, 11/20/2007, 09/21/1998 CKD HGB USE SMARTSET 97551 05/29/202505/29, 08/27/2023, 08/27/2023, Additional history exists Albumin/Creatinine Ratio 07/29/2025 025, 07/27/2021, 01/15/2020, Additional history exists CKD PHOS USE SMARTSET 02588 07/29/202507/18, 10/21/2023, 03/02/2022, Additional history exists Pneumococcal Vaccine: 50+ Years Completed 08/04/2014, 12/29/2009 Zoster Vaccines Completed 11/14/2018, 10/15, 05/30/2018, Additional history exists VITAMIN D LEVEL ONCE IN A LIFETIME-USE SMARTSET# 26970 Completed 07/04/2021, 09/12/2020, 01/11/2020, Additional history exists [...] and were consensually agreed upon. Care Teams Biology Faculty Member Relationship Specialty Start Date End Date Steve Hooker III, MD [address] [facility] [place] [address] PCP - General 01/30/1996 documented as of this encounter
--- OUTSIDE RECORDS SUMMARY | 2024-10-06 00:22 | External Medical Summary | Summary of Care ---
Author Name Unknown Organization [facility] Address [address] [place] [address] Phone [phone] Care Team Providers Care Calciner Operator Name Role Phone Nhung LOPEZ MD, Christiano Langston Primary Care Provider [phone] Reason for Visit * Reason Comments Medication Refill Encounter Details Date Type Department Care Team (Late st Contact Info) Description 08/08/2024 Refill Family Practice [facility] [address] [place] [address] Christiano Harkins III, MD 200 [place] [address] ATHEROSCLEROTIC CORONARY DISEASE Allergies Active Allergy Reactions Criticality Noted Date Comments Adhesive Tape 07/05/2022 Doxycycline Nausea/vomiting 11/03/2010 Metoclopramide Hcl Neuro complications (Please comment) 12/07/2010 Developed worsening tremor and lip smacking. Naproxen 01/23/2012 Can not tolerate-gets very emotional and depressed documented as of this encounter (statuses as of 08/10/2024) Medications ASPIRIN 81 MG PO TABS Take [...] goal of less than 8.0% ([facility]) Use to test once daily DX E11.9 100 Each 3 07/20/19 21 Active Additional Information Patient not taking.Reported on 05/29/2024 Biotin 82464 MCG Oral Tablet Take 1 Tablet by [...] provider. 1 Each 05/26/20 23 Active Depend Fpi-Cmwy-Cphle-M Use as directed. 30 Each 11 07/03/19 24 Active DULoxetine HCl 60 MG Oral Capsule Delayed Release Particles (Cymbalta)Indicat ions:Moderate persistent asthma without complication TAKE ONE CAPSULE BY MOUTH EVERY MORNING DO NOT CUT, CRUSH OR CHEW 90 Capsule 3 4 6:15 AM EST 08/29/19 24 Active buPROPion HCl ER (SR) 100 [...] 5 10:09 AM EST 08/05/19 25 Active Amoxicillin 500 MG Oral Capsule (Amoxil) Take 1 Capsule by mouth in the morning and 1 Capsule before bedtime. Do all this for 7 days. 14 Capsule 5 11:43 AM EST 08/03/19 25 2024 Active Potassium Chloride Elvi ER 10 MEQ Oral Tablet Extended ReleaseIndication s:ASCVD (arteriosclerotic cardiovascular disease) Take 1 Tablet by mouth daily. 100 Tablet 3 08/10/19 25 Active Potassium Chloride Elvi ER 10 MEQ Oral Tablet Extended ReleaseIndication s:ASCVD (arteriosclerotic cardiovascular disease) Take 1 Tablet by mouth daily. 100 Tablet 3 4 11:25 AM EST 07/12/19 24 2024 Disconti nued(Ref ill) documented as of this encounter (statuses as of 08/10/2024) Active Problems Problem Noted Date Diagnosed Date [...] 05/26/2023 DM peripheral angiopathy 05/26/2023 Atherosclerosis of [place] co ronary artery without angina pectoris 05/26/2023 [...] in the Comments) Remote Patient Monitoring Vendor: [employer]oomly Device(s): Connected Scale Self - Management Plan [...] SGLT2 Inhibitor: none Remote Patient Monitoring Vendor: [employer] Device(s): Connected Scale Self - Management Plan [...] SGLT2 Inhibitor: none Remote Patient Monitoring Vendor: [employer] Device(s): Connected Scale Self - Management Plan [...] 12/22/13 Christiano Harkins III, MD [facility] [place] Facet arthropathy, lumbar 10/07/2013 Type 2 diabetes mellitus wit h hemoglobin A1c goal of less than 8.0% 07/15/2013 Overview (10/13/2015): ICD-10 update of inactive term History of tobacco use 02/18/2013 Hearing loss 02/18/2013 DYSLIPIDEMIA, GOAL LDL BELOW 70 05/30/2009 Overview (05/30/2009): Per Lipid Taxonomy. 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 Not on file Not on file [employer] Not on file Not on file Not on file documented as of this encounter Miscellaneous Notes * Telephone Encounter - Chey Burton RP - 08/10/2024 7:51 AM ESTSigned Prescriptions: Disp Refills Potassium Chloride Elvi ER 10 MEQ Oral Tab*100 Ta*3 Sig: Take 1Tablet by mouth daily.Authorizing Provider: CHRISTIANO HARKINS III User: CHEY BURTON---- documented in this encounter Plan of Treatment Upcoming Encounters Date Type Department Care Team (Late st Contact Info) Description 08/18/2024 3:00 PM EST Home Visit [facility] at [facility] [address] [address] [place] [address] Alma Rosa Washburn PA-C [address] [address] 08/20/2024 7:05 AM EST Laboratory Lab [facility] [address] [facility] [place] [address] [facility] Mobile Home Draw [address] [facility] [place] [address] 08/21/2024 6:00 AM EST Anticoagulation Centralized Clinical Pharmacy Services, Alfred Guevara [address] [place] [address] [place] [address] [address], [facility] [address] [place] [address] 09/10/2024 11:30 AM EDT [facility] Visit [facility], [facility] [address] [place] [address], [facility] [address] [place] [address] Health Maintenance Due Date Last Done Comments [...] Additional history exists CKD PHOS USE SMARTSET 90264 07/29/202507/18, 10/21/2023, 03/02/2022, Additional history exists Pneumococcal Vaccine: 50+ Years Completed 08/04/2014, 12/29/2009 Zoster Vaccines Completed 11/14/2018, 10/15, 05/30/2018, Additional history exists VITAMIN D LEVEL ONCE IN A LIFETIME-USE SMARTSET# 80474 Completed 07/04/2021, 09/12/2020, 01/11/2020, Additional history exists [...] CKD stage, unspecified whether correction insulin use (HCC) Open-angle glaucoma, unspecified glaucoma stage, unspecified laterality, unspecified open-angle glaucoma type Atherosclerosis of [place] coronary artery without angina pectoris, unspecified whether [place] or transplanted heart Hyperparathyroidism, secondary renal (HCC) [...] depressive disorder, recurrent episode, mild Atherosclerosis of [place] coronary artery of [place] heart without angina pectoris Hyperparathyroidism, secondary renal (HCC) Secondary hyperparathyroidism (of renal origin) Age-related osteoporosis without current pathological fracture Senile osteoporosis Lymphedema Other lymphedema ATHEROSCLEROTIC CORONARY DISEASE Unspecified cardiovascular disease documented in this encounter Advance Directives * [...] and were consensually agreed upon. Care Teams Calciner Operator Relationship Specialty Start Date End Date Christiano Harkins III, MD [address] [place] [address], [place] [address] PCP - General 01/30/1996 documented as of this encounter
--- OUTSIDE RECORDS SUMMARY | 2024-10-06 00:22 | External Medical Summary | Summary of Care ---
Author Name Unknown Organization [facility] Address [address] [place] [address] Phone [phone] Care Team Providers Care Hydroelectric Production Manager Name Role Phone Nhung LOPEZ MD, Christiano Langston Primary Care Provider [phone] Reason for Visit * Reason Comments Medication Refill Encounter Details Date Type Department Care Team (Late st Contact Info) Description 08/17/2024 Refill Family Practice [facility] [address] [place] [address] Christiano Harkins III, MD 200 [place] [address] Moderate persistent asthma without complication Allergies Active Allergy Reactions Criticality Noted Date Comments Adhesive Tape 07/05/2022 Doxycycline Nausea/vomiting 11/03/2010 Metoclopramide Hcl Neuro complications (Please comment) 12/07/2010 Developed worsening tremor and lip smacking. Naproxen 01/23/2012 Can not tolerate-gets very emotional and depressed documented as of this encounter (statuses as of 08/19/2024) Medications ASPIRIN 81 MG PO TABS Take [...] Information Patient not taking.Reported on 05/29/2024 Biotin 20968 MCG Oral Tablet Take 1 Tablet by [...] provider. 1 Each 05/26/20 23 Active Depend Iea-Rjvu-Wjfxr-M Use as directed. 30 Each 11 07/03/19 [...] CUT, CRUSH OR CHEW 90 Capsule 3 08/20/19 25 Active DULoxetine HCl 60 MG Oral Capsule Delayed Release Particles (Cymbalta)Indicat ions:Moderate persistent asthma without complication TAKE ONE CAPSULE BY MOUTH EVERY MORNING DO NOT CUT, CRUSH OR CHEW 90 Capsule 3 4 6:15 AM EST 08/29/19 24 2024 Disconti nued(Ref ill) documented as of this encounter (statuses as of 08/19/2024) Active Problems Problem Noted Date Diagnosed Date [...] 05/26/2023 DM peripheral angiopathy 05/26/2023 Atherosclerosis of [place] co ronary artery without angina pectoris 05/26/2023 [...] in the Comments) Remote Patient Monitoring Vendor: [employer] Device(s): Connected Scale Self - Management Plan [...] SGLT2 Inhibitor: none Remote Patient Monitoring Vendor: [employer] Device(s): Connected Scale Self - Management Plan [...] SGLT2 Inhibitor: none Remote Patient Monitoring Vendor: [employer] Device(s): Connected Scale Self - Management Plan [...] 12/22/13 Christiano Harkins III, MD [facility] [place] Facet arthropathy, lumbar 10/07/2013 Type 2 diabetes mellitus wit h hemoglobin A1c goal of less than 8.0% 07/15/2013 Overview (10/13/2015): ICD-10 update of inactive term History of tobacco use 02/18/2013 Hearing loss 02/18/2013 DYSLIPIDEMIA, GOAL LDL BELOW 70 05/30/2009 Overview (05/30/2009): Per Lipid Taxonomy. 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 Not on file 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 Not on file Not on file [employer] Not on file Not on file Not on file documented as of this encounter Miscellaneous Notes * Telephone Encounter - Christiano Harkins III, MD - 08/19/2024 7:35 AM ESTSigned Prescriptions: Disp Refills DULoxetine HCl 60 MG Oral Capsule Delayed *90 Cap*3 Sig: TAKE ONE CAPSULE BY MOUTH EVERY MORNING DO NOT CUT, CRUSH OR CHEWAuthorizing Provider: CHRISTIANO HARKINS III--- * Telephone Encounter - Chey Cardona [facility] - 08/18/2024 10:48 AM EST Pending Prescriptions: Disp Refills DULoxetine HCl 60 MG Oral Capsule Delayed *90 Cap*3 Sig: TAKE ONE CAPSULE BY MOUTH EVERY MORNING DO NOT CUT, CRUSH OR CHEW * Telephone Encounter - Chey Cardona [facility] - 08/18/2024 10:48 AM EST Serum creatinine: 1.5 mg/dL (H) 07/29/24 1200 Estimated creatinine clearance: 25.3 mL/min (A) CrCl <30 mL/minute: The rn clinician's labeling recommends to avoid use; duloxetine and inactivemetabolites AUC expected to increase significantly (Ref). When necessary, some experts recommend cautious use of lower initial doses (eg, 30 mg daily); titrate slowly, not to exceed 60 mg once daily;monitor closely for adverse effects documented in this encounter Plan of Treatment Upcoming Encounters Date Type Department Care Team (Late st Contact Info) Description 08/20/2024 7:05 AM EST Laboratory Lab Mobile Phlebotomy [address] [place] [address] [place], [facility] Mobile Home Draw [address] [place] [address] [place] [address] 08/21/2024 6:00 AM EST Anticoagulation Centralized Clinical Pharmacy Services, [facility] [place] [address] [place] [address] [place] [address] [facility], [address] [place] [address] 09/01/2024 3:00 PM EDT [facility] Visit [facility] [place], [facility] [address] [place] [address] [address] Alma Rosa Washburn PA-C [address] [place] [address] 09/10/2024 11:30 AM EDT [facility] Visit [facility] [address] [place] [address], RN [address] [place] [address] Health Maintenance Due Date Last Done Comments [...] 02/01/2015, 11/20/2007, 09/21/1998 CKD HGB USE SMARTSET 79377 05/29/202505/29, 08/27/2023, 08/27/2023, Additional history exists Albumin/Creatinine Ratio 07/29/2025 025, 07/27/2021, 01/15/2020, Additional history exists CKD PHOS USE SMARTSET 22390 07/29/202507/18, 10/21/2023, 03/02/2022, Additional history exists Pneumococcal Vaccine: 50+ Years Completed 08/04/2014, 12/29/2009 Zoster Vaccines Completed 11/14/2018, 10/15, 05/30/2018, Additional history exists VITAMIN D LEVEL ONCE IN A LIFETIME-USE SMARTSET# 99720 Completed 07/04/2021, 09/12/2020, 01/11/2020, Additional history exists [...] failure and stage 3b chronic kidney disease ([facility]) 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 disturbance, psychotic disturbance, mood disturbance, or anxiety, unspecified dementia severity ([facility]) Cardiac pacemaker in situ Hemiplegia, 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HCC) Hemiplegia affecting unspecified side, late effect of cerebrovascular disease Major depressive disorder, recurrent episode, mild (HCC) Major depressive disorder, recurrent episode, mild Polymyalgia rheumatica ([facility]) Polymyalgia rheumatica Hypertensive heart and kidney 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 and stage 3b chronic kidney disease ([facility])- Primary Advanced care planning/counseling discussion Other specified counseling ATHEROSCLEROTIC CORONARY DISEASE Unspecified cardiovascular disease Paroxysmal atrial fibrillation (HCC) Atrial fibrillation 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[facility]) Sinoatrial node dysfunction Cardiac pacemaker in situ Type 2 diabetes mellitus with stage 3b chronic kidney disease, without long-term current use of insulin ([facility]) DM peripheral angiopathy ([facility]) Type II or unspecified type diabetes mellitus with peripheral circulatory disorders, not stated as uncontrolled Hypertensive heart and kidney 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 and stage 3b chronic kidney disease ([facility])- Primary 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 behavioral disturbance, psychotic disturbance, mood disturbance, or anxiety, unspecified dementia type (HCC) Paroxysmal atrial fibrillation (HCC) Atrial fibrillation 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 status epilepticus, unspecified epilepsy type ([facility]) Type 2 diabetes mellitus with diabetic chronic kidney disease, unspecified CKD stage, unspecified whether snf insulin use ([facility]) Open-angle glaucoma, unspecified glaucoma stage, unspecified laterality, unspecified open-angle glaucoma type Atherosclerosis of [place] coronary artery without angina pectoris, unspecified whether [place] or transplanted heart Hyperparathyroidism, secondary renal (HCC) Secondary hyperparathyroidism (of renal origin) Hemiplegia, 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HCC) Hemiplegia affecting unspecified side, late effect of cerebrovascular disease Urinary incontinence, unspecified type Hypertensive heart and kidney 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 and stage 3b chronic kidney disease ([facility])- Primary Hemiplegia, 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HCC) Hemiplegia affecting unspecified [...] depressive disorder, recurrent episode, mild Atherosclerosis of [place] coronary artery of [place] heart without angina pectoris Hyperparathyroidism, secondary renal (HCC) Secondary hyperparathyroidism (of renal origin) Age-related osteoporosis without current pathological fracture Senile osteoporosis Lymphedema Other lymphedema Moderate persistent asthma without complication Unspecified asthma documented in this encounter Advance Directives * [...] and were consensually agreed upon. Care Teams Hydroelectric Production Manager Relationship Specialty Start Date End Date Christiano Harkins III, MD [address] [place] [address] PCP - General 01/30/1996 documented as of this encounter
--- OUTSIDE RECORDS SUMMARY | 2024-10-06 00:22 | External Medical Summary ---
Author Name Unknown Address Unknown Organization K01:[facility] [address] [place] [address] Laboratory Report Ordering Provider Test Date Status LOURDES DE GUZMAN 08/20/2024 10:41:00 Final Standing order for pt/inr. < br/>Please draw pt/inr every 1 to 4 weeks as requested
Results to [facility]

Warfarin Therapy
INR: 2.0-3.0 conventional anticoagulation
INR: 2.5-3.5 high intensity anticoagulation Observation Date Value Abnormality Reference (Units ) Status PT 08/20/2024 10:41:00 30.4 Above high normal 11 .6-15.2 (seconds) Final INR 08/20/2024 10:41:00 2.9 Above high normal 0. 8-1.2 Final Performing Location [facility] [facility] [address] [place] [address]
--- OUTSIDE RECORDS SUMMARY | 2024-10-06 00:22 | External Medical Summary | Summary of Care ---
Author Name Unknown Organization [facility] Address [address] [place] [address] Phone [phone] Care Team Providers Care Athlete Marketing Agent Name Role Phone Nhung LOPEZ MD, Steve Langston Primary Care Provider [phone] Reason for Visit * Reason Onset Date Comments Appointment 08/18/2024 Encounter Details Date Type Department Care Team ([facility] Contact Info) Description 08/18/2024 Telephone [facility] [place] [address] [place] [address] Shirlene Ellsworth, [place] [address] [place] [address] Appointment Allergies Active Allergy Reactions Criticality Noted Date Comments Adhesive Tape 07/05/2022 Doxycycline Nausea/vomiting 11/03/2010 Metoclopramide Hcl Neuro complications (Please comment) 12/07/2010 Developed worsening tremor and lip smacking. Naproxen 01/23/2012 Can not tolerate-gets very emotional and depressed documented as of this encounter (statuses as of 08/18/2024) Medications ASPIRIN 81 MG PO TABS Take [...] goal of less than 8.0% ([facility]) Use to test once daily DX E11.9 100 Each 3 07/20/19 21 Active Additional Information Patient not taking.Reported on 05/29/2024 Biotin 44250 MCG Oral Tablet Take 1 Tablet by [...] provider. 1 Each 05/26/20 23 Active Depend Hea-Ffpa-Gzgca-M Use as directed. 30 Each 11 07/03/19 [...] 5 9:07 AM EST 08/10/19 25 Active documented as of this encounter (statuses as of 08/18/2024) Active Problems Problem Noted Date Diagnosed Date [...] 05/26/2023 DM peripheral angiopathy 05/26/2023 Atherosclerosis of [place] co ronary artery without angina pectoris 05/26/2023 [...] in the Comments) Remote Patient Monitoring Vendor: [employer] Device(s): Connected Scale Self - Management Plan [...] SGLT2 Inhibitor: none Remote Patient Monitoring Vendor: [employer] Device(s): Connected Scale Self - Management Plan [...] SGLT2 Inhibitor: none Remote Patient Monitoring Vendor: [employer] Device(s): Connected Scale Self - Management Plan [...] 12/22/13 Steve Hooker III, MD [facility] [place] Facet arthropathy, lumbar 10/07/2013 Type 2 diabetes mellitus wit h hemoglobin A1c goal of less than 8.0% 07/15/2013 Overview (10/13/2015): ICD-10 update of inactive term History of tobacco use 02/18/2013 Hearing loss 02/18/2013 DYSLIPIDEMIA, GOAL LDL BELOW 70 05/30/2009 Overview (05/30/2009): Per Lipid Taxonomy. 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 Spoke with patient and confirmed. documented in this encounter Plan of Treatment Upcoming Encounters Date Type Department Care Team (Late st Contact Info) Description 08/20/2024 7:05 AM EST Laboratory Lab Mobile Phlebotomy [address] [place] [address] [facility] Mobile Home Draw [address] [place] [address] [place] [address] 08/21/2024 6:00 AM EST Anticoagulation Centralized Clinical Pharmacy Services, Alfred Guevara [address] [place] [address] [place] [address] [facility] [place] [address] 09/01/2024 3:00 PM EDT [facility] Visit [facility] [place], [facility] [address] [place] [address] Alma Rosa Clemons PA-C [address] [place] [address] 09/10/2024 11:30 AM EDT [facility] Visit [facility], [facility] [address] [place] [address], [facility] [address] [place] [address] Health Maintenance Due Date Last Done Comments [...] 02/01/2015, 11/20/2007, 09/21/1998 CKD HGB USE SMARTSET 06783 05/29/202505/29, 08/27/2023, 08/27/2023, Additional history exists Albumin/Creatinine Ratio 07/29/2025 025, 07/27/2021, 01/15/2020, Additional history exists CKD PHOS USE SMARTSET 56487 07/29/202507/18, 10/21/2023, 03/02/2022, Additional history exists Pneumococcal Vaccine: 50+ Years Completed 08/04/2014, 12/29/2009 Zoster Vaccines Completed 11/14/2018, 10/15, 05/30/2018, Additional history exists VITAMIN D LEVEL ONCE IN A LIFETIME-USE SMARTSET# 66559 Completed 07/04/2021, 09/12/2020, 01/11/2020, Additional history exists [...] and were consensually agreed upon. Care Teams Athlete Marketing Agent Relationship Specialty Start Date End Date Steve Hooker III, MD [address] [place] [address] PCP - General 01/30/1996 documented as of this encounter
--- OUTSIDE RECORDS SUMMARY | 2024-10-06 00:22 | External Medical Summary | Summary of Care ---
Author Name Unknown Organization [facility] Address [address] [facility] [place] [address] Phone [phone] Care Team Providers Care Cotton Broker Name Role Phone Nhung LOPEZ MD, Steve Langston Primary Care Provider [phone] Reason for Visit * Reason Onset Date Comments [facility]: Maintenance 08/17/2024 Encounter Details Date Type Department Care Team ([facility] st Contact Info) Description 08/17/2024 Telephone [facility], [facility] [address] [facility] [place] [address] Elinor Rai RN [address] [facility] [place] [phone] [facility]: Maintenance Allergies Active Allergy [...] goal of less than 8.0% ([facility]) Use to test once daily DX E11.9 100 Each 3 07/20/19 21 Active Additional Information Patient not taking.Reported on 05/29/2024 Biotin 65278 MCG Oral Tablet Take 1 Tablet by [...] provider. 1 Each 05/26/20 23 Active Depend Hrs-Ikxu-Whuic-M Use as directed. 30 Each 11 07/03/19 [...] 05/26/2023 DM peripheral angiopathy 05/26/2023 Atherosclerosis of [place] co ronary artery without angina pectoris 05/26/2023 [...] in the Comments) Remote Patient Monitoring Vendor: Nomadesk Device(s): Connected Scale Self - Management Plan [...] SGLT2 Inhibitor: none Remote Patient Monitoring Vendor: Nomadesk Device(s): Connected Scale Self - Management Plan [...] SGLT2 Inhibitor: none Remote Patient Monitoring Vendor: Nomadesk Device(s): Connected Scale Self - Management Plan [...] 12/22/13 Steve Hooker III, MD [facility] [place] Facet arthropathy, lumbar 10/07/2013 Type 2 diabetes [...] mRNA, LNP-s, No Pre serve, 2-Dose Series (Alverix) 06/01/2021,10/15/2020,09/24/2020 Covid-19, Mrna, Lnp-s, Pf, B ivalent, [...] No 05/07/2024 Does the household have a [facility] source of income? 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 i had to add an acute in her slot. Objective: 07/29/2024 10:49 AM 06/19/2024 1:15 PM 05/29/2024 1:11 PM 05/07/2024 12:30 PM 04/28/2024 10:45 AM VITALS ACROSS ENCOUNTERS BP 126/76 108/68 118/86 140/100 120/80 Pulse 60 62 64 62 60 Weight 74.6 kg 73.4 kg 72.6 kg 73.9 kg BMI 29.57 BMI 29.59 kg/m2 29.14 kg/m2 28.8 kg/m2 29.34 kg/m2 Remote Patient Monitoring: NONE Oxygen Needs: NO supplemental oxygen needs identified DME Needs: NO DME needs identified Medications: Has there been any recent medication changes? no Does pt need any refills on medications? No medication or dose adjustments made during acute episode Subjective: Condition Status: No change in symptoms Current Concerns: Outgoing call to the pt's daughter Saray's phone number but the voice mailbox is full. Outgoing call to the pt who states that she has her good days and her bad days. She states that today is "so- so". She reports that she gets tired very easily. That she gets pain in her back, her legand the back of her head. She denies SOB, denies chest pain. She states that she knows to use her inhalers if she becomes SOB. She mentions that she seldomly misses any of her medications as her son d oes check in on her daily. She denies any falls. She denies any NVD. She did have 2 BM's today. Shehas edema of ankles, L>R. She can fit into her shoes. She denies abdominal bloating. She states that she is wearing jeans and has not noticed any tightness. HPI: Constitutional: no weight loss, no weakness, and + fatigue Resp: no cough, no sputum, no wheezing, and no SOB Cardiac: no chest pain, no orthopnea, and no dyspnea on exertion GI: no pain, no heartburn, no diarrhea, no constipation Musculoskeletal: no significant joint or muscle pain and + swelling Neuro: no weakness Education Provided: Call [facility] for new or worsening symptoms Disposition: Issue resolved. All appropriate follow up scheduled. Will send to [facility] scheduling to reschedule the appt with Mandy Washburn PA-C Future Visits Scheduled: Future Appointments-next 60 days Date/Time Provider Specialty Dept Phone 08/18/2024 3:00 PM Alma Rosa Washburn PA-C [facility] [phone] 08/20/2024 7:05 AM [facility] Mobile Home Draw Laboratory Processing [phone] 08/21/2024 6:[address] [facility] [phone] 09/10/2024 11:[address] RN [facility] [phone] Elinor Rai, RN documented in this encounter Plan of Treatment Upcoming Encounters Date Type Department Care Team (Late st Contact Info) Description 08/20/2024 7:05 AM EST Laboratory Lab Mobile Phlebotomy [address] [place] [address] [facility] Mobile Home Draw [address] [place] [address] [place] [address] 08/21/2024 6:00 AM EST Anticoagulation Centralized Clinical Pharmacy Services, Alfred Guevara [address] [place] [address] [place] [address] [place] [address] 09/10/2024 11:30 AM EDT Home Visit [facility], [facility] [address] [place] [address], [facility] [address] [place] [address] Health Maintenance Due Date Last Done Comments [...] 02/01/2015, 11/20/2007, 09/21/1998 CKD HGB USE SMARTSET 27548 05/29/202505/29, 08/27/2023, 08/27/2023, Additional history exists Albumin/Creatinine Ratio 07/29/2025 025, 07/27/2021, 01/15/2020, Additional history exists CKD PHOS USE SMARTSET 29132 07/29/202507/18, 10/21/2023, 03/02/2022, Additional history exists Pneumococcal Vaccine: 50+ Years Completed 08/04/2014, 12/29/2009 Zoster Vaccines Completed 11/14/2018, 10/15, 05/30/2018, Additional history exists VITAMIN D LEVEL ONCE IN A LIFETIME-USE SMARTSET# 10527 Completed 07/04/2021, 09/12/2020, 01/11/2020, Additional history exists [...] and were consensually agreed upon. Care Teams Cotton Broker Relationship Specialty Start Date End Date Steve Hooker III, MD [address] [place] [address] PCP - General 01/30/1996 documented as of this encounter
--- OUTSIDE RECORDS SUMMARY | 2024-10-06 00:22 | External Medical Summary | Summary of Care ---
Author Name Unknown Organization [facility] Address [address] [place] [address] Phone [phone] Care Team Providers Care Tobacco Sizer Name Role Phone Nhung LOPEZ MD, Christiano Langston Primary Care Provider [phone] Reason for Visit * Reason Comments Medication Refill Encounter Details Date Type Department Care Team (Late st Contact Info) Description 08/24/2024 Refill [facility], [place] [address] [place] [id number] Christiano Harkins III, MD [address] [place] [address] Allergies Active Allergy Reactions Criticality Noted Date Comments Adhesive Tape 07/05/2022 Doxycycline Nausea/vomiting 11/03/2010 Metoclopramide Hcl Neuro complications (Please comment) 12/07/2010 Developed worsening tremor and lip smacking. Naproxen 01/23/2012 Can not tolerate-gets very emotional and depressed documented as of this encounter (statuses as of 08/24/2024) Medications ASPIRIN 81 MG PO TABS Take [...] Information Patient not taking.Reported on 05/29/2024 Biotin 24658 MCG Oral Tablet Take 1 Tablet by [...] provider. 1 Each 05/26/20 23 Active Depend Dvi-Uzbf-Yfcoo-M Use as directed. 30 Each 11 07/03/19 [...] evening. 90 Tablet 1 08/25/19 25 Active Torsemide 20 MG Oral Tablet (Demadex) Take 1 Tablet by mouth in the morning and 1 Tablet in the evening. 90 Tablet 1 4 12:35 PM EST 06/02/20 24 2024 Disconti nued(Ref ill) documented as of this encounter (statuses as of 08/24/2024) Active Problems Problem Noted Date Diagnosed Date [...] 05/26/2023 DM peripheral angiopathy 05/26/2023 Atherosclerosis of [place] co ronary artery without angina pectoris 05/26/2023 [...] in the Comments) Remote Patient Monitoring Vendor: PBS-Bio Device(s): Connected Scale Self - Management Plan [...] SGLT2 Inhibitor: none Remote Patient Monitoring Vendor: [employer]-Bio Device(s): Connected Scale Self - Management Plan [...] SGLT2 Inhibitor: none Remote Patient Monitoring Vendor: PBS-Bio Device(s): Connected Scale Self - Management Plan [...] 12/22/13 Christiano Harkins III, MD [facility] [place] Facet arthropathy, lumbar 10/07/2013 Type 2 diabetes mellitus wit h hemoglobin A1c goal of less than 8.0% 07/15/2013 Overview (10/13/2015): ICD-10 update of inactive term History of tobacco use 02/18/2013 Hearing loss 02/18/2013 DYSLIPIDEMIA, GOAL LDL BELOW 70 05/30/2009 Overview (05/30/2009): Per Lipid Taxonomy. 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 Authorizing Provider: CHRISTIANO HARKINS III * Telephone Encounter - Christiano Harkins III, MD - 08/24/2024 1:06 PM EDTSigned Prescriptions: Disp Refills Torsemide 20 MG Oral Tablet (Demadex) 90 Tab*1 Sig: Take 1 Tablet by mouth in the morning and 1 Tablet in the evening. Authorizing Provider: CHRISTIANO HARKINS III * Telephone Encounter - Nuria Garner LPN - 08/24/2024 12:48 PM EDT Did you pend patient's preferred pharmacy and medication before forwarding?yes Pharmacy: [facility] Pending Prescriptions: Disp Refills Torsemide 20 MG Oral Tablet (Demadex) 90 Tab*1 Sig: Take 1 Tablet by mouth in the morning and 1 Tablet in the evening. Last Visit: Visit date not found (in office), 02/26/2023 (telemedicine) Next Visit: Visit date not found If no future appointments scheduled, and last appointment is greater than a year ago, please schedule patient for a follow-up appointment Last date the medication was ordered: 06/03/24 Is this request for a controlled substance?No Urine Drug Screen: Results for orders placed [...] AM HGBA1C 6.2 (H) 03/09/2019 03:08 PM * Telephone Encounter - Chela Vargas RPh - 08/24/2024 7:03 AM EDT Pending Prescriptions: Disp Refills Torsemide 20 MG Oral Tablet (Demadex) 90 Tab*1 Sig: Take 1 Tablet by mouth in the morning and 1 Tablet in the evening. documented in this encounter Plan of Treatment Upcoming Encounters Date Type Department Care Team (Late st Contact Info) Description 09/01/2024 3:00 PM EDT Home Visit [facility] [place], [facility] [address] [place] [address] Alma Rosa Washburn PA-C [address] [place] [address] 09/10/2024 7:05 AM EDT Laboratory Lab Mobile Phlebotomy [address] [place] [address] [facility] Mobile Home Draw [facility] [address] 09/11/2024 6:00 AM EDT Anticoagulation Centralized Clinical Pharmacy Services, Alfred Guevara [address] [place] [address] [place] [address] [facility], [address] [place] [address] 09/16/2024 1:30 PM EDT [facility] Visit [facility], [facility] [address] [place] [address], RN [address] [place] [address] Health Maintenance Due Date Last Done Comments [...] 02/01/2015, 11/20/2007, 09/21/1998 CKD HGB USE SMARTSET 14637 05/29/202505/29, 08/27/2023, 08/27/2023, Additional history exists Albumin/Creatinine Ratio 07/29/2025 025, 07/27/2021, 01/15/2020, Additional history exists CKD PHOS USE SMARTSET 29376 07/29/202507/18, 10/21/2023, 03/02/2022, Additional history exists Pneumococcal Vaccine: 50+ Years Completed 08/04/2014, 12/29/2009 Zoster Vaccines Completed 11/14/2018, 10/15, 05/30/2018, Additional history exists VITAMIN D LEVEL ONCE IN A LIFETIME-USE SMARTSET# 34859 Completed 07/04/2021, 09/12/2020, 01/11/2020, Additional history exists [...] and were consensually agreed upon. Care Teams Tobacco Sizer Relationship Specialty Start Date End Date Christiano Harkins III, MD [address] [facility] [place] [address] PCP - General 01/30/1996 documented as of this encounter
--- OUTSIDE RECORDS SUMMARY | 2024-10-06 00:23 | External Medical Summary | Summary of Care ---
Author Name Unknown Organization [facility] Address [address] [facility] [place] [address] Phone [phone] Care Team Providers Care Provider Relations Specialist Name Role Phone Nhung LOPEZ MD, Steve Langston Primary Care Provider [phone] Reason for Visit * Reason Comments Dosage Adjustment Via Phone (anticoag Cl inic) Encounter Details Date Type Department Care Team ([facility] st Contact Info) Description 08/07/2024 6:00 AM EST Anticoagulation Centralized Clinical Pharmacy Services, Alfred Guevara [address] [place] [address] [place] [address] [facility], [address] [place] [address] Anticoagulation management encounter* Allergies Active Allergy Reactions Criticality Noted Date Comments Adhesive Tape 07/05/2022 Doxycycline Nausea/vomiting 11/03/2010 Metoclopramide Hcl Neuro complications (Please comment) 12/07/2010 Developed worsening tremor and lip smacking. Naproxen 01/23/2012 Can not tolerate-gets very emotional and depressed documented as of this encounter (statuses as of 08/07/2024) Medications ASPIRIN 81 MG PO TABS Take [...] Information Patient not taking.Reported on 05/29/2024 Biotin 14305 MCG Oral Tablet Take 1 Tablet by [...] provider. 1 Each 05/26/20 23 Active Depend Pnv-Davz-Kuzvt-M Use as directed. 30 Each 11 07/03/19 24 Active Potassium Chloride Elvi ER 10 MEQ Oral Tablet Extended ReleaseIndication s:ASCVD (arteriosclerotic cardiovascular disease) Take 1 Tablet by mouth daily. 100 Tablet 3 4 11:25 AM EST 07/12/19 24 Active DULoxetine HCl 60 MG Oral [...] all this for 7 days. 14 Capsule 08/03/19 25 025 Active documented as of this encounter (statuses as of 08/07/2024) Active Problems Problem Noted Date Diagnosed Date [...] 05/26/2023 DM peripheral angiopathy 05/26/2023 Atherosclerosis of [place] co ronary artery without angina pectoris 05/26/2023 [...] in the Comments) Remote Patient Monitoring Vendor: marshallindex Device(s): Connected Scale Self - Management Plan [...] SGLT2 Inhibitor: none Remote Patient Monitoring Vendor: marshallindex Device(s): Connected Scale Self - Management Plan [...] SGLT2 Inhibitor: none Remote Patient Monitoring Vendor: marshallindex Device(s): Connected Scale Self - Management Plan [...] 12/22/13 Steve Hooker III, MD [facility] [place] Facet arthropathy, lumbar 10/07/2013 Type 2 diabetes mellitus wit h hemoglobin A1c goal of less than 8.0% 07/15/2013 Overview (10/13/2015): ICD-10 update of inactive term History of tobacco use 02/18/2013 Hearing loss 02/18/2013 DYSLIPIDEMIA, GOAL LDL BELOW 70 05/30/2009 Overview (05/30/2009): Per Lipid Taxonomy. 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 PT/INR results, Coumadin dose instructions, and next PT/INR date communicated as noted by Pharmacist: Yes NAI SERRANO CPhT 08/07/2024, 8:26 AM * Lea Espana RPh - 08/07/2024 7:58 AM EST Coumadin Clinic (region specific) Objective Current Warfarin Dose As of 08/07/2024 Warfarin maintenance plan: 4 mg (4 mg x 1) every Tue, Myrna; 6 mg (4 mg x 1.5) all other days INR Result As of 08/07/2024 INR goal: 2.0-3.0 INR used for dosin.9 (08/06/2024) Assessment & Plan Warfarin Plan As of 08/07/2024 Full warfarin instructions: 4 mg every Tue, Myrna; 6 mg all other days No change documented: Lea Espana RPh Next INR check: 08/20/2024 Repeat PT/INR in 2 week(s) Weekly dose: not changed Additional Dosing Information: Description GML - Call Rufino with results/dosing Amiodarone decreased 01/2021 Tech to contact patient with dose instructions as noted. Lea Espana RPh 08/07/2024, 7:58 AM documented in this encounter Plan of Treatment Upcoming Encounters Date Type Department Care Team (Late st Contact Info) Description 08/18/2024 3:00 PM EST [facility] [address] [place] [address] Alma Rosa Washburn PA-C [address] [place] [address] 08/21/2024 6:00 AM EST Anticoagulation Centralized Clinical Pharmacy Services, Alfred Guevara [address] [place] [address] [place] [address] [facility], [address] [place] [address] 09/10/2024 11:30 AM EDT [facility] Visit [facility], [facility] [address] [place] [address] RN [address] [place] [address] Health Maintenance Due Date Last Done Comments [...] 02/01/2015, 11/20/2007, 09/21/1998 CKD HGB USE SMARTSET 37038 05/29/202505/29, 08/27/2023, 08/27/2023, Additional history exists Albumin/Creatinine Ratio 07/29/2025 025, 07/27/2021, 01/15/2020, Additional history exists CKD PHOS USE SMARTSET 29738 07/29/202507/18, 10/21/2023, 03/02/2022, Additional history exists Pneumococcal Vaccine: 50+ Years Completed 08/04/2014, 12/29/2009 Zoster Vaccines Completed 11/14/2018, 10/15, 05/30/2018, Additional history exists VITAMIN D LEVEL ONCE IN A LIFETIME-USE SMARTSET# 13314 Completed 07/04/2021, 09/12/2020, 01/11/2020, Additional history exists [...] (HCC) Cardiac pacemaker in situ Hemiplegia, 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[facility]) Hemiplegia affecting unspecified side, late effect of cerebrovascular disease Major depressive disorder, recurrent episode, mild (HCC) Major depressive disorder, recurrent episode, mild Polymyalgia rheumatica ([facility]) Polymyalgia rheumatica Hypertensive heart and kidney 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 and stage 3b chronic kidney disease ([facility])- Primary Advanced care planning/counseling discussion Other specified counseling ATHEROSCLEROTIC CORONARY DISEASE Unspecified cardiovascular disease Paroxysmal atrial fibrillation (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) Sinoatrial node dysfunction Cardiac pacemaker in situ Type 2 diabetes mellitus with stage 3b chronic kidney disease, without long-term current use of insulin ([facility]) DM peripheral angiopathy ([facility]) Type II or unspecified type diabetes mellitus with peripheral circulatory disorders, not stated as uncontrolled Hypertensive heart and kidney 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 and stage 3b chronic kidney disease ([facility])- Primary 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 behavioral disturbance, psychotic disturbance, mood disturbance, or anxiety, unspecified dementia type ([facility]) Paroxysmal atrial fibrillation ([facility]) Atrial fibrillation 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 status epilepticus, unspecified epilepsy type ([facility]) Type 2 diabetes mellitus with diabetic chronic kidney disease, unspecified CKD stage, unspecified whether fpc insulin use ([facility]) Open-angle glaucoma, unspecified glaucoma stage, unspecified laterality, unspecified open-angle glaucoma type Atherosclerosis of [place] coronary artery without angina pectoris, unspecified whether [place] or transplanted heart Hyperparathyroidism, secondary renal (HCC) Secondary hyperparathyroidism (of renal origin) Hemiplegia, 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[facility]) Hemiplegia affecting unspecified side, late effect of cerebrovascular disease Urinary incontinence, unspecified type Hypertensive heart and kidney 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 and stage 3b chronic kidney disease ([facility])- Primary Hemiplegia, 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[facility]) Hemiplegia affecting unspecified side, late effect of cerebrovascular disease 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 behavioral disturbance, psychotic disturbance, mood disturbance, or anxiety, unspecified dementia type ([facility]) Paroxysmal atrial fibrillation ([facility]) Atrial fibrillation 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 status epilepticus, unspecified epilepsy type ([facility]) Type 2 diabetes mellitus with stage 3b chronic kidney disease, without long-term current use of insulin ([facility]) Open-angle glaucoma, unspecified glaucoma stage, unspecified laterality, unspecified open-angle glaucoma type Major depressive disorder, recurrent episode, mild (HCC) Major depressive disorder, recurrent episode, mild Atherosclerosis of [place] coronary artery of [place] heart without angina pectoris Hyperparathyroidism, secondary renal [...] and were consensually agreed upon. Care Teams Provider Relations Specialist Relationship Specialty Start Date End Date Nhung LOPEZ, Steve Langston MD [address] [place] [address] PCP - General 01/30/1996 documented as of this encounter
--- OUTSIDE RECORDS SUMMARY | 2024-10-06 00:23 | External Medical Summary ---
Author Name Unknown Address Unknown Organization K01:[facility] [place] [address] [address] Laboratory Report Ordering Provider Test Date Status LOURDES DE GUZMAN 08/06/2024 10:19:00 Final Standing order for pt/inr. < br/>Please draw pt/inr every 1 to 4 weeks as requested
Results to [facility]

Warfarin Therapy
INR: 2.0-3.0 conventional anticoagulation
INR: 2.5-3.5 high intensity anticoagulation Observation Date Value Abnormality Reference (Units ) Status PT 08/06/2024 10:19:00 30.9 Above high normal 11 .6-15.2 (seconds) Final INR 08/06/2024 10:19:00 2.9 Above high normal 0. 8-1.2 Final Performing Location [facility] [place] [address] [address]
--- OUTSIDE RECORDS SUMMARY | 2024-10-06 00:23 | External Medical Summary | Summary of Care ---
Author Name Unknown Organization [facility] Address [address] [place] [address] Phone [phone] Care Team Providers Care Broomcorn Scraper Name Role Phone Nhung LOPEZ MD, Steve Langston Primary Care Provider [phone] Reason for Visit * Reason Comments Medication Refill Encounter Details Date Type Department Care Team (Late st Contact Info) Description 08/03/2024 Refill Cardiology, [facility] [address] [place] [address] Jose Boyce PA-C [address] [place] [address] Allergies Active Allergy Reactions Criticality Noted Date Comments Adhesive Tape 07/05/2022 Doxycycline Nausea/vomiting 11/03/2010 Metoclopramide Hcl Neuro complications (Please comment) 12/07/2010 Developed worsening tremor and lip smacking. Naproxen 01/23/2012 Can not tolerate-gets very emotional and depressed documented as of this encounter (statuses as of 08/05/2024) Medications ASPIRIN 81 MG PO TABS Take [...] Information Patient not taking.Reported on 05/29/2024 Biotin 74172 MCG Oral Tablet Take 1 Tablet by [...] provider. 1 Each 05/26/20 23 Active Depend Tyf-Fawf-Yizlu-M Use as directed. 30 Each 11 07/03/19 [...] by mouth in the morning. 100 Tablet 08/05/19 25 Active Amoxicillin 500 MG Oral Capsule (Amoxil) Take 1 Capsule by mouth in the morning and 1 Capsule before bedtime. Do all this for 7 days. 14 Capsule 08/03/19 25 2024 Active Metoprolol Succinate ER 25 MG Oral Tablet Extended Release 24 Hour (toPROL XL) Take 1 Tablet by mouth in the morning. 100 Tablet 4 1:58 PM EST 04/27/20 24 2024 Disconti nued(Ref ill) documented as of this encounter (statuses as of 08/05/2024) Active Problems Problem Noted Date Diagnosed Date [...] 05/26/2023 DM peripheral angiopathy 05/26/2023 Atherosclerosis of [place] co ronary artery without angina pectoris 05/26/2023 [...] in the Comments) Remote Patient Monitoring Vendor: Optensity Device(s): Connected Scale Self - Management Plan [...] SGLT2 Inhibitor: none Remote Patient Monitoring Vendor: Optensity Device(s): Connected Scale Self - Management Plan [...] SGLT2 Inhibitor: none Remote Patient Monitoring Vendor: Optensity Device(s): Connected Scale Self - Management Plan [...] 12/22/13 Steve Hooker III, MD [facility] [place] Facet arthropathy, lumbar 10/07/2013 Type 2 diabetes mellitus wit h hemoglobin A1c goal of less than 8.0% 07/15/2013 Overview (10/13/2015): ICD-10 update of inactive term History of tobacco use 02/18/2013 Hearing loss 02/18/2013 DYSLIPIDEMIA, GOAL LDL BELOW 70 05/30/2009 Overview (05/30/2009): Per Lipid Taxonomy. 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 Authorizing Provider: JOSE BOYCE * Telephone Encounter - Beth Denson CPhT - 08/05/2024 9:41 AM ESTPending Prescriptions: Disp Refills Metoprolol Succinate ER 25 MG Oral Tablet *100 Ta*0 Sig: Take 1 Tablet by mouth in the morning. * Telephone Encounter - Beth Denson CPhT - 08/05/2024 9:41 AM EST Received message from [facility] regarding patient needing an appointment. Call Placed, Left message on voicemail to call back and schedule appointment. Thank you, Beth Denson CPhT Clinical Operations Leader [facility] ([facility]) 08/05/2024,9:41 AM * Telephone Encounter - Jenna Novoa RPh - 08/04/2024 2:22 PM ESTPending Prescriptions: Disp Refills Metoprolol Succinate ER 25 MG Oral Tablet *100 Ta*0 Sig: Take 1 Tablet by mouth in the morning. * Telephone Encounter - Jenna Novoa RPh - 08/04/2024 2:15 PM EST Unable to authorize medication refills for pended medication(s) at this time. Part of the protocol criteria used for refill authorization was not satisfied. Per refill protocol patient should have office visit on file within past year. Please contact patient to schedule office visit with CARDIOLOGY. Last Visit: 04/03/2023 (in office), Return in about 6 months (around 10/03/2023); apt cancelled 07/01/24 Next Visit: Visit date not found After contacting patient, please forward request to Jose Boyce PA-C. Thank you, Jenna Novoa, PharmD Clinical Pharmacist [facility] ([facility]) [phone] 08/04/2024, 2:20 PM documented in this encounter Plan of Treatment Upcoming Encounters Date Type Department Care Team (Late st Contact Info) Description 08/06/2024 7:00 AM EST Laboratory Lab Mobile Phlebotomy [facility] [address] [facility], [place] [id number] [facility] Mobile Home Draw [address] [place] [address] 08/07/2024 6:00 AM EST Anticoagulation [facility], Alfred Guevara [address] [place] [address] [place] [address] [facility], [address] [place] [address] 08/18/2024 3:00 PM EST [facility], [facility] [address] [place] [address] Alma Rosa Washburn PA-C [address] [place] [address] 09/10/2024 11:30 AM EDT [facility], [facility] [address] [place] [address], [facility] [address] [place] [address] Health Maintenance Due Date Last Done Comments [...] 02/01/2015, 11/20/2007, 09/21/1998 CKD HGB USE SMARTSET 01096 05/29/202505/29, 08/27/2023, 08/27/2023, Additional history exists Albumin/Creatinine Ratio 07/29/2025 025, 07/27/2021, 01/15/2020, Additional history exists CKD PHOS USE SMARTSET 74205 07/29/202507/18, 10/21/2023, 03/02/2022, Additional history exists Pneumococcal Vaccine: 50+ Years Completed 08/04/2014, 12/29/2009 Zoster Vaccines Completed 11/14/2018, 10/15, 05/30/2018, Additional history exists VITAMIN D LEVEL ONCE IN A LIFETIME-USE SMARTSET# 57317 Completed 07/04/2021, 09/12/2020, 01/11/2020, Additional history exists [...] and were consensually agreed upon. Care Teams Broomcorn Scraper Relationship Specialty Start Date End Date Steve Hooker III, MD [address] [facility] [place] [address] PCP - General 01/30/1996 documented as of this encounter
--- OUTSIDE RECORDS SUMMARY | 2024-10-06 00:23 | External Medical Summary | Summary of Care ---
Author Name Unknown Organization [facility] Address [address] [place] [address] Phone [phone] Care Team Providers Care Metal Tile Setter Name Role Phone Nhung LOPEZ MD, Christiano Langston Primary Care Provider [phone] Reason for Visit * Reason Comments Medication Refill Encounter Details Date Type Department Care Team (Late st Contact Info) Description 07/30/2024 Refill Family Practice [facility] [address] [place] [address] Christiano Harkins III, MD [address] [place] [address] Allergies Active Allergy Reactions Criticality Noted Date Comments Adhesive Tape 07/05/2022 Doxycycline Nausea/vomiting 11/03/2010 Metoclopramide Hcl Neuro complications (Please comment) 12/07/2010 Developed worsening tremor and lip smacking. Naproxen 01/23/2012 Can not tolerate-gets very emotional and depressed documented as of this encounter (statuses as of 07/30/2024) Medications ASPIRIN 81 MG PO TABS Take [...] goal of less than 8.0% ([facility]) Use to test once daily DX E11.9 100 Each 3 07/20/19 21 Active Additional Information Patient not taking.Reported on 05/29/2024 Biotin 89873 MCG Oral Tablet Take 1 Tablet by [...] provider. 1 Each 05/26/20 23 Active Depend Vfo-Ljgg-Lpvnt-M Use as directed. 30 Each 11 07/03/19 [...] DIRECTED BY ANTICOAGULATION PHARMACIST 135 Tablet 3 4 11:25 AM EST 02/06/20 24 Active traZODone HCl 50 MG Oral Tablet (Desyrel) TAKE 1/2 TABLET BY MOUTH AT BEDTIME 45 Tablet 1 5 12:05 PM EST 04/03/20 24 Active Metoprolol Succinate ER 25 MG Oral Tablet Extended Release 24 Hour (toPROL XL) Take 1 Tablet by mouth in the morning. 100 Tablet 4 1:58 PM EST 04/27/20 24 Active Torsemide 20 MG Oral Tablet [...] as needed for Pain, Severe. 120 Tablet 07/28/19 25 Active Atorvastatin Calcium 40 MG Oral Tablet (Lipitor) TAKE ONE TABLET BY MOUTH EVERY DAY 100 Tablet 3 07/30/19 25 Active Atorvastatin Calcium 40 MG Oral Tablet (Lipitor) TAKE ONE TABLET BY MOUTH EVERY DAY 100 Tablet 3 4 1:58 PM EST 06/04/20 23 2024 Disconti nued(Ref ill) documented as of this encounter (statuses as of 07/30/2024) Active Problems Problem Noted Date Diagnosed Date [...] 05/26/2023 DM peripheral angiopathy 05/26/2023 Atherosclerosis of [place] co ronary artery without angina pectoris 05/26/2023 [...] in the Comments) Remote Patient Monitoring Vendor: GoingOn Device(s): Connected Scale Self - Management Plan [...] SGLT2 Inhibitor: none Remote Patient Monitoring Vendor: GoingOn Device(s): Connected Scale Self - Management Plan [...] SGLT2 Inhibitor: none Remote Patient Monitoring Vendor: GoingOn Device(s): Connected Scale Self - Management Plan [...] 12/22/13 Christiano Harkins III, MD [facility] [place] Facet arthropathy, lumbar 10/07/2013 Type 2 diabetes mellitus wit h hemoglobin A1c goal of less than 8.0% 07/15/2013 Overview (10/13/2015): ICD-10 update of inactive term History of tobacco use 02/18/2013 Hearing loss 02/18/2013 DYSLIPIDEMIA, GOAL LDL BELOW 70 05/30/2009 Overview (05/30/2009): Per Lipid Taxonomy. 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 - 07/30/2024 12:20 PM ESTSigned Prescriptions: Disp Refills Atorvastatin Calcium 40 MG Oral Tablet (Li*100 Ta*3 Sig: TAKE ONE TABLET BY MOUTH EVERY DAYAuthorizing Provider: CHRISTIANO HARKINS III User: SHANDA CONTRERAS---- documented in this encounter Plan of Treatment Upcoming Encounters Date Type Department Care Team (Late st Contact Info) Description 08/06/2024 7:00 AM EST Laboratory Lab Mobile Phlebotomy [facility] [address] [facility] [place] [address] [facility], [facility] Mobile [facility] Draw [facility] [facility] [address] 08/07/2024 6:00 AM EST Anticoagulation [facility], [address] [place] [address] [place] [address] 08/18/2024 3:00 PM EST [facility] Visit [facility] [place], [facility] [address] [place] [address] Alma Rosa Clemons PA-C [address] [place] [address] 09/10/2024 11:30 AM EDT Home Visit [facility] [place], [facility] [address] [place] [address], RN [address] [place] [address] Health Maintenance Due Date Last Done Comments [...] 02/01/2015, 11/20/2007, 09/21/1998 CKD HGB USE SMARTSET 54372 05/29/202505/29, 08/27/2023, 08/27/2023, Additional history exists Albumin/Creatinine Ratio 07/29/2025 025, 07/27/2021, 01/15/2020, Additional history exists CKD PHOS USE SMARTSET 43960 07/29/202507/18, 10/21/2023, 03/02/2022, Additional history exists Pneumococcal Vaccine: 50+ Years Completed 08/04/2014, 12/29/2009 Zoster Vaccines Completed 11/14/2018, 10/15, 05/30/2018, Additional history exists VITAMIN D LEVEL ONCE IN A LIFETIME-USE SMARTSET# 84245 Completed 07/04/2021, 09/12/2020, 01/11/2020, Additional history exists [...] and were consensually agreed upon. Care Teams Metal Tile Setter Relationship Specialty Start Date End Date Christiano Harkins III, MD [address] [place] [address] PCP - General 01/30/1996 documented as of this encounter
--- OUTSIDE RECORDS SUMMARY | 2024-10-06 00:23 | External Medical Summary | Summary of Care ---
Author Name Unknown Organization [facility] Address [address] [place] [address] Phone [phone] Care Team Providers Care Supervisor Printing And Stamping Name Role Phone Nhung LOPEZ MD, Steve Langston Primary Care Provider [phone] Reason for Visit * Reason Onset Date Comments Advice 05/05/2024 Encounter Details Date Type Department Care Team ([facility] Contact Info) Description 05/05/2024 Telephone Family Practice [facility] [place] [address] [place] [address] Steve Hooker III, MD 200 [place] [address] Advice Allergies Active Allergy Reactions Criticality Noted [...] goal of less than 8.0% ([facility]) Use to test once daily DX E11.9 100 Each 3 07/20/19 21 Active Additional Information Patient not taking.Reported on 05/29/2024 Biotin 53995 MCG Oral Tablet Take 1 Tablet by [...] provider. 1 Each 05/26/20 23 Active Depend Sru-Txyq-Hlwem-M Use as directed. 30 Each 11 07/03/19 [...] 4 1:58 PM EST 04/27/20 24 Active Isosorbide Mononitrate ER 30 MG Oral Tablet Extended Release 24 Hour (Imdur)Indication s:CHOUDHARY (dyspnea on exertion) TAKE ONE TABLET BY MOUTH EVERY DAY IN THE MORNING 100 Tablet 3 4 1:02 PM EST 06/04/20 23 2024 Disconti nued(Ref ill) Atorvastatin Calcium 40 MG Oral Tablet (Lipitor) TAKE ONE TABLET BY MOUTH EVERY DAY 100 Tablet 3 4 1:58 PM EST 06/04/20 23 2024 Disconti nued(Ref ill) Magnesium Oxide 400 MG Oral TabletIndications :ASCVD (arteriosclerotic cardiovascular disease) TAKE ONE TABLET BY MOUTH EVERY MORNING 90 Tablet 3 4 12:22 PM EDT 10/10/19 24 2024 Disconti nued(Med ication List Clean Up) Omeprazole 20 MG Oral Capsule Delayed Release (PriLOSEC) TAKE ONE CAPSULE BY MOUTH IN THE MORNING 30 MINUTES BEFORE THE FIRST MEAL OF THE DAY 100 Capsule 1 4 6:40 AM EDT 12/06/19 24 2024 Disconti nued(Ref ill) levETIRAcetam 500 MG Oral Tablet (Keppra) Take 1 Tablet by mouth in the morning and 1 Tablet before bedtime. 180 Tablet 1 4 11:29 AM EST 01/22/20 24 2024 Disconti nued(Ref ill) Torsemide 20 MG Oral Tablet (Demadex) Take 1 Tablet by mouth in the morning and 1 Tablet in the evening. 90 Tablet 1 4 9:23 AM EDT 03/03/20 24 2023 Disconti nued(Ref ill) oxyCODONE-Acetami nophen 10-325 MG Oral TabletIndications :Pain Take 1 Tablet by mouth every 6 hours as needed for Pain, Severe. 120 Tablet 4 11:20 AM EST 04/22/20 24 2023 Disconti nued(Ref ill) documented as of this [...] 05/26/2023 DM peripheral angiopathy 05/26/2023 Atherosclerosis of [place] co ronary artery without angina pectoris 05/26/2023 [...] in the Comments) Remote Patient Monitoring Vendor: [employer] Device(s): Connected Scale Self - Management Plan [...] SGLT2 Inhibitor: none Remote Patient Monitoring Vendor: [employer] Device(s): Connected Scale Self - Management Plan [...] SGLT2 Inhibitor: none Remote Patient Monitoring Vendor: [employer] Device(s): Connected Scale Self - Management Plan [...] 12/22/13 Steve Hooker III, MD [facility] [place] Facet arthropathy, lumbar 10/07/2013 Type 2 diabetes [...] mRNA, LNP-s, No Pre serve, 2-Dose Series (g-Nostics) 06/01/2021,10/15/2020,09/24/2020 Covid-19, Mrna, Lnp-s, Pf, B ivalent, [...] 0.5 mL (Fluzone) 05/04/2014,02/25/2013,02/27/2012,04/11,04/04/2010,06/13/2009,04/05/2008 ,03/26/2007,04/15/2006 Seasonal Influenza, PF, 6 M & above, [...] 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 Pts son called back stating that [facility] is advising that they have not received order and pts son did not hear back from us to discuss further. Pts son is very upset stating that this hasbeen going on for months and has still not been resolved. Pts son is requesting that office reach out to [facility] to complete order for pt. Thank You! Patient Called after 48 hour timeframe and escalation e-mail was sent to clinic leadership. * Telephone Encounter - Nancy Bridges OSA - 05/20/2024 3:25 PM EST Reason for patient's call: for a update the form I call the office and that stated that the fax it over many time and she said that are going to fax it again * Telephone Encounter - Ranjana Payne OSA - 05/19/2024 3:01 PM EST Pts son asking about the form asking to have the form faxed to [phone] if it is filled out. * Telephone Encounter - Ruth Zamora MD - 05/19/2024 10:49 AM EST I saw this patient only once and they were quite a few back in 410 counters regards to her diagnosis of type 2 diabetes mellitus. Also as far as I remember I did sign the form and it was put in orange folder. If not and by any chance patient has to resubmit it can be done through PCP office too. * Telephone Encounter - Valarie Adhikari LPN - 05/13/2024 4:[address] Zamora - this form was placed in your folder - was this done? * Telephone Encounter - Vicki Mendez OSA - 05/11/2024 8:26 AM EST Patient calling in to check on the status of previous message. Patient Called within forms 5-7 business day turnaround timeframe. Reminded patient of 5-7 businessday policy for forms requests. * Telephone Encounter - Yovani Walls OSA - 05/05/2024 2:22 PM EST [facility] want to speak with first officer and flight instructor Ref: diabatic shoe. Please to call elias [phone] ext [phone] documented in this encounter Plan of Treatment Upcoming Encounters Date Type Department Care Team (Late st Contact Info) Description 08/06/2024 7:00 AM EST Laboratory Lab Mobile Phlebotomy [facility] [address] [place] [address] [facility], [facility] Mobile Home Draw [address] [place] [address] 08/07/2024 6:00 AM EST Anticoagulation [facility], Alfred Guevara [address] [place] [address] [place] [address] [facility] [address] [place] [address] 08/18/2024 3:00 PM EST [facility], [facility] [address] [place] [address] Alma Rosa Washburn PA-C [address] [place] [address] 09/10/2024 11:30 AM EDT [facility], [facility] [address] [place] [address] RN [address] [place] [address] Health Maintenance Due Date Last Done Comments [...] 02/01/2015, 11/20/2007, 09/21/1998 CKD HGB USE SMARTSET 62577 05/29/202505/29, 08/27/2023, 08/27/2023, Additional history exists Albumin/Creatinine Ratio 07/29/2025 025, 07/27/2021, 01/15/2020, Additional history exists CKD PHOS USE SMARTSET 70056 07/29/202507/18, 10/21/2023, 03/02/2022, Additional history exists Pneumococcal Vaccine: 50+ Years Completed 08/04/2014, 12/29/2009 Zoster Vaccines Completed 11/14/2018, 10/15, 05/30/2018, Additional history exists VITAMIN D LEVEL ONCE IN A LIFETIME-USE SMARTSET# 61464 Completed 07/04/2021, 09/12/2020, 01/11/2020, Additional history exists [...] and were consensually agreed upon. Care Teams Supervisor Printing And Stamping Relationship Specialty Start Date End Date Steve Hooker III, MD [address] [facility] [place] [address] PCP - General 01/30/1996 documented as of this encounter
--- OUTSIDE RECORDS SUMMARY | 2024-10-06 00:23 | External Medical Summary | Summary of Care ---
Author Name Unknown Organization [facility] Address [address] [place] [address] Phone [phone] Care Team Providers Care Academic Counselor Name Role Phone Nhung LOPEZ MD, John E Primary Care Provider [phone] Reason for Visit * Reason Onset Date Comments Test Results 08/03/202408/07-lmom Encounter Details Date Type Department Care Team ([facility] Contact Info) Description 08/03/2024 Telephone Family Practice [facility] [address] [facility] [place] [address] Steve Hooker III, MD [address] [place] [address] Test Results (08/07-lmom ) Allergies Active Allergy Reactions Criticality Noted Date [...] A1c goal of less than 8.0% ([facility]) Use to test once daily DX E11.9 100 Each 3 07/20/19 21 Active Additional Information Patient not taking.Reported on 05/29/2024 Biotin 37339 MCG Oral Tablet Take 1 Tablet by [...] provider. 1 Each 05/26/20 23 Active Depend Ryx-Itzb-Ckygi-M Use as directed. 30 Each 11 07/03/19 [...] 05/26/2023 DM peripheral angiopathy 05/26/2023 Atherosclerosis of [place] ronary artery without angina pectoris 05/26/2023 [...] in the Comments) Remote Patient Monitoring Vendor: [employer] Device(s): Connected Scale Self - Management Plan [...] SGLT2 Inhibitor: none Remote Patient Monitoring Vendor: [employer] Device(s): Connected Scale Self - Management Plan [...] SGLT2 Inhibitor: none Remote Patient Monitoring Vendor: [employer] Device(s): Connected Scale Self - Management Plan [...] 12/22/13 Steve Hooker III, MD [facility] [place] Facet arthropathy, lumbar 10/07/2013 Type 2 diabetes [...] mRNA, LNP-s, No Pre serve, 2-Dose Series (Piqniq) 06/01/2021,10/15/2020,09/24/2020 Covid-19, Mrna, Lnp-s, Pf, B ivalent, 10 Mcg, IM, 5-11 yrs (Piqniq) 07/12/2022 H1N1 2009 Influenza, IM 06/28/2009 PPD [...] 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 Please make patient aware of results noted below. I have also sent her a my g message. * Telephone Encounter - Veronica Landeros LPN - 08/03/2024 11:19 AM EST Called, left message for patient to return call. * Telephone Encounter - Veronica Landeros LPN - 08/03/2024 11:18 AM EST ----- Message from Steve Hooker MD sent at 08/03/2024 9:48 AM EST ----- Call please kidney function stable urine tox screen as expected has urinary tract infection prescription sent to [facility] pharmacy hemoglobin A1c very good LDL cholesterol good no medication changes documented in this encounter Plan of Treatment Upcoming Encounters Date Type Department Care Team (Late st Contact Info) Description 08/18/2024 3:00 PM EST [facility] [address] [place] [address] Alma Rosa Clemons PA-C [address] [place] [address] 08/20/2024 7:05 AM EST Laboratory Lab Mobile Phlebotomy [facility] [address] [employer] [place] [address] [facility] Mobile Home Draw [address] [employer] [place] [address] 08/21/2024 6:00 AM EST Anticoagulation [facility], [place] [address] [place] [address] [facility], [address] [place] [address] 09/10/2024 11:30 AM EDT [facility] Visit [facility] [address] [place] [address], [facility] [address] [place] [address] Health Maintenance Due Date Last Done Comments [...] 02/01/2015, 11/20/2007, 09/21/1998 CKD HGB USE SMARTSET 21981 05/29/202505/29, 08/27/2023, 08/27/2023, Additional history exists Albumin/Creatinine Ratio 07/29/2025 025, 07/27/2021, 01/15/2020, Additional history exists CKD PHOS USE SMARTSET 41862 07/29/202507/18, 10/21/2023, 03/02/2022, Additional history exists Pneumococcal Vaccine: 50+ Years Completed 08/04/2014, 12/29/2009 Zoster Vaccines Completed 11/14/2018, 10/15, 05/30/2018, Additional history exists VITAMIN D LEVEL ONCE IN A LIFETIME-USE SMARTSET# [id number] Completed 07/04/2021, 09/12/2020, 01/11/2020, Additional history exists [...] and were consensually agreed upon. Care Teams Academic Counselor Relationship Specialty Start Date End Date Steve Hooker III, MD [address] [facility] [place] [address] PCP - General 01/30/1996 documented as of this encounter
--- OUTSIDE RECORDS SUMMARY | 2024-10-06 00:23 | External Medical Summary | Summary of Care ---
Author Name Unknown Organization [facility] Address [address] [place] [address] Phone [phone] Care Team Providers Care Youth Care Professional Name Role Phone Nhung LOPEZ MD, Steve Langston Primary Care Provider [phone] Reason for Visit * Reason Comments Outpatient Testing Encounter Details Date Type Department Care Team (Late st Contact Info) Description 07/29/2024 12:00 PM EST Laboratory [facility] [place] [address] [place] [id number] [place], Lab [facility] [address] [place] [address] Confusion; Dysuria; Type 2 diabetes mellitus with hemoglobin A1c goal of less than 8.0% ([facility]); Other chronic pain; Type 2 diabetes mellitus with stage 3b chronic kidney disease, without long-term current use of insulin ([facility]); Dyslipidemia, goal LDL below 70 Allergies Active Allergy Reactions Criticality Noted Date Comments Adhesive Tape 07/05/2022 Doxycycline Nausea/vomiting 11/03/2010 Metoclopramide Hcl Neuro complications (Please comment) 12/07/2010 Developed worsening tremor and lip smacking. Naproxen 01/23/2012 Can not tolerate-gets very emotional and depressed documented as of this encounter (statuses as of 07/29/2024) Medications ASPIRIN 81 MG PO TABS Take [...] hemoglobin A1c goal of less than 8.0% ([facility]) Use to test once daily DX E11.9 100 Each 3 07/20/19 21 Active Additional Information Patient not taking.Reported on 05/29/2024 Biotin 51135 MCG Oral Tablet Take 1 Tablet by [...] managing provider. 1 Each 05/26/20 23 Active Atorvastatin Calcium 40 MG Oral Tablet (Lipitor) TAKE ONE TABLET BY MOUTH EVERY DAY 100 Tablet 3 4 1:58 PM EST 06/04/20 23 Active Depend Xmv-Izhr-Aowuj-M Use as directed. 30 Each 11 07/03/19 [...] Pain, Severe. 120 Tablet 07/28/19 25 Active documented as of this encounter (statuses as of 07/29/2024) Active Problems Problem Noted Date Diagnosed Date [...] peripheral angiopathy 05/26/2023 Atherosclerosis of [place] co ronary artery without angina pectoris 05/26/2023 [...] in the Comments) Remote Patient Monitoring Vendor: [employer] Device(s): Connected Scale Self - Management Plan [...] SGLT2 Inhibitor: none Remote Patient Monitoring Vendor: [employer] Device(s): Connected Scale Self - Management Plan [...] SGLT2 Inhibitor: none Remote Patient Monitoring Vendor: [employer] Device(s): Connected Scale Self - Management Plan [...] 12/22/13 Steve Hooker III, MD [facility] [place] Facet arthropathy, lumbar 10/07/2013 Type 2 diabetes mellitus wit h hemoglobin A1c goal of less than 8.0% 07/15/2013 Overview (10/13/2015): ICD-10 update of inactive term History of tobacco use 02/18/2013 Hearing loss 02/18/2013 DYSLIPIDEMIA, GOAL LDL BELOW 70 05/30/2009 Overview (05/30/2009): Per Lipid Taxonomy. 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 file Not on file Not on file [employer] Not on file Not on file Not on file documented as of this encounter Plan of Treatment Upcoming Encounters Date Type Department Care Team (Late st Contact Info) Description 08/06/2024 7:00 AM EST Laboratory Lab Mobile Phlebotomy [facility] [address] [email or web address] [place] [address] [facility], [facility] Mobile Home Draw [address] [email or web address] [place] [address] 08/07/2024 6:00 AM EST Anticoagulation Centralized Clinical Pharmacy Services, [place] [address] [place] [address] [place] [address] [place] [address] 08/18/2024 3:00 PM EST [facility] Visit [facility] [address] [place] [address] Alma Rosa Clemons PA-C [address] [place] [address] Pending Results Name Type Priority Associated Diagnoses Date /Time HEMOGLOBIN A1C Lab Routine Type 2 diabetes mellitus with hemoglobin A1c goal of less than 8.0% ([facility]) 07/29/2024 12:00 PM EST PAIN MANAGEMENT DRUG PANEL, URINE W/ INTERPRETATION Lab Routine Other chronic pain 07/29/2024 12:00 PM EST LDL CHOLESTEROL (DIRECT MEASURE) Lab Routine Dyslipidemia, goal LDL below 70 07/29/2024 12:00 PM EST EXTRA URINE ALIQUOT Lab Routine Other chronic pain 07/29/2024 12:00 PM EST CULTURE, URINE, QUANTITATIVE Lab Routine Confusion 07/29/2024 12:00 PM EST Health Maintenance Due Date Last Done Comments Adult Wellness Visit 09/16/2019 09/15/2018 Depression Monitoring 09/16/2019 09/15/2018 Diabetic Foot Exam 09/12/2021 09/12/2020, 0 12/09/2019, 01/07/2019, Additional history exists *BISPHONATE OR OTHER ACCEPTABLE MEDICATION NEEDED FOR OSTEOPOROSIS (REFER TO SMARTSET #1146) 02/17/2022 Albumin/Creatinine Ratio 07/27/2022 025, 07/27/2021, 01/15/2020, Additional history exists DXA Scan 12/27/2023 12/26/2021, 12/15, 05/26/2014, Additional history exists COVID-19 Vaccine ( season) 2024 07/12/2022, 06/01/2021, 10/15/2020, Additional history exists Diabetic Eye Exam 06/07/2024 06/07/2023, , 06/07/2023, Additional history exists HbA1c 11/02/2024 05/05/2024, 05/0 11/2023, 11/27/2022, Additional history exists DTap/Tdap Vaccines (2 - Td or Tdap) 02/01/2025 02/01/2015, 11/20/2007, 09/21/1998 CKD HGB USE SMARTSET 37181 05/29/202505/29, 08/27/2023, 08/27/2023, Additional history exists CKD PHOS USE SMARTSET 62363 07/29/202507/18, 10/21/2023, 03/02/2022, Additional history exists Pneumococcal Vaccine: 50+ Years Completed 08/04/2014, 12/29/2009 Zoster Vaccines Completed 11/14/2018, 10/15, 05/30/2018, Additional history exists VITAMIN D LEVEL ONCE IN A LIFETIME-USE SMARTSET# 92687 Completed 07/04/2021, 09/12/2020, 01/11/2020, Additional history exists [...] Diagnosis Comments URINALYSIS, REFLEX TO CULTURE Routine 07/29/2024 12:00 PM EST Confusion URINALYSIS, REFLEX TO CULTURE (CUP ONLY) Routine 07/29/2024 12:00 PM EST Confusion URINALYSIS, REFLEX TO CULTURE (NOT FOR NEUTROPENIC PATIENTS) Routine 07/29/2024 12:00 PM EST Confusion RENAL FUNCTION PANEL Routine 07/29/2024 12:00 PM EST Type 2 diabetes mellitus with stage 3b chronic kidney disease, without long-term current use of insulin (HCC) ALBUMIN / CREATININE RATIO, URINE Routine 07/29/2024 12:00 PM EST Type 2 diabetes mellitus with hemoglobin A1c goal of less than 8.0% ([facility]) documented in this encounter Results * (ABNORMAL) URINALYSIS, REFLEX TO CULTURE (07/29/2024 12:00 PM EST) Color, Urine Yellow Light Yellow, Yellow, Dark Yellow 07/29/2024 12:36 PM [facility] [place] 56-02 Clarity, Urine Slightly Cloudy(A) Clear 07/29/2024 12:36 PM [facility] [place] 56-02 Glucose, Urine Negative Negative mg/dL 07/29/2024 12:36 PM [facility] 56-02 Bilirubin, Urine Negative Negative 07/29/2024 12:36 PM [facility] 56-02 Ketone, Urine Negative Negative mg/dL 07/29/2024 12:36 PM [facility] 56-02 Specific Barnes, Urine 1.015 1.003 - 1.030 07/29/2024 12:36 PM [facility] [place] 56-02 Blood, Urine Negative Negative 07/29/2024 12:36 PM [facility] [place] 56-02 pH, Urine 7.5 5.0 - 7.5 Units 07/29/2024 12:36 PM [facility] [place] 56-02 Protein, Urine Trace(A) Negative mg/dL 07/29/2024 12:[address] Urobilinogen, Urine 0.2 0.2, 1.0 mg/dL 07/29/2024 12:[address] Nitrite, Urine Negative Negative 07/29/2024 12:36 PM EST [address] Esterase, Urine Moderate(A) Negative 07/29/2024 12:[address] RBC, Urine 0-2 0 - 2 /HPF 07/29/2024 12:[address] WBC, Urine 50+(A) 0 - 2 /HPF 07/29/2024 12:[address] Bacteria, Urine 0-25 0 - 25 /HPF 07/29/2024 12:[address] Culture, Urine 07/29/2024 12:36 PM [place] [address] Comment:Quantitative urine c ulture to be performed Urine Urine specimen obtained by clean catch procedure / Unknown Non-blood Collection / Unknown 07/29/2024 12:00 PM EST 07/29/2024 12:00 PM EST us Steve Hooker III, MD LAB URINE ORDERABLES Final Result [place] [address] [address] [place] [address] * URINALYSIS, REFLEX TO CULTURE (CUP ONLY) (07/29/2024 12:00 PM EST) Urinalysis, Reflex to Culture Specimen Specimen collected and received 07/29/2024 1:02 PM [place] [address] Urine Urine specimen obtained by clean catch procedure / Unknown Non-blood Collection / Unknown 07/29/2024 12:00 PM EST 07/29/2024 12:00 PM EST us Steve Hooker III, MD LAB URINE ORDERABLES Final Result [place] [address] [address] [place] [address] * (ABNORMAL) RENAL FUNCTION PANEL (07/29/2024 12:00 PM EST) BUN 28(H) 6 - 20 mg/dL 07/29/2024 12:57 PM [facility] 56- CREATININE 1.5(H) 0.5 - 1.0 mg/dL 07/29/2024 12:57 PM [facility] 56- EGFR 32(L) >=60 mL/min 07/29/2024 12:57 PM [facility] 56- Comment:eGFR is calculated b ased on the CKD-EPI 2020 equation. SODIUM 141 135 - 146 mmol/L 07/29/2024 12:57 PM [facility] 56- POTASSIUM 4.3 3.5 - 5.1 mmol/L 07/29/2024 12:57 PM [facility] 56- CHLORIDE 104 98 - 107 mmol/L 07/29/2024 12:57 PM [facility] 56- CO2 28 22 - 32 mmol/L 07/29/2024 12:57 PM [facility] 56- ANION GAP 9 7 - 15 mmol/L 07/29/2024 12:57 PM [facility] 56- GLUCOSE 99 70 - 120 mg/dL 07/29/2024 12:57 PM [facility] 56- CALCIUM 10.1 8.4 - 10.2 mg/dL 07/29/2024 12:57 PM [facility] 56- Albumin 4.0 3.8 - 5.0 g/dL 07/29/2024 12:57 PM [facility] 56- Phosphorus 3.0 2.5 - 4.8 mg/dL 07/29/2024 12:57 PM [facility] 56-02 Blood Venous blood specimen / Unknown Venipuncture / Unknown 07/29/2024 12:00 PM EST 07/29/2024 12:00 PM EST us Steve Hooker III, MD LAB BLOOD ORDERABLES Final Result [facility] 56- [address] [place] [address] * (ABNORMAL) ALBUMIN / CREATININE RATIO, URINE (07/29/2024 12:00 PM EST) Albumin, Random Urine 4.00 mg/dL 07/29/2024 5:39 PM EST LAB[facility]ORY [facility] Creatinine, Random Urine 85 mg/dL 07/29/2024 5:39 PM EST [facility] Albumin / Creatinine Ratio, Urine 47(H) <30 mg/g Creat 07/29/2024 5:39 PM EST [facility] Urine Urine specimen obtained by clean catch procedure / Unknown Non-blood Collection / Unknown 07/29/2024 12:00 PM EST 07/29/2024 12:00 PM EST Narrative LAB[facility]ATORY [facility] - 07/29/2024 5:39 PM EST Normal: <30 mg/g creatinine High: 30-300 mg/g creatinine Very High: >300 mg/g creatinine Nephrotic: >2200 mg/g creatinine [facility] LAB URINE ORDERABLES Final Resul t LABORATORY [facility] [address] [place] [address] documented in this encounter Visit Diagnoses Diagnosis [...] kidney disease, unspecified CKD stage, unspecified whether long term care phlebotomist insulin use (HCC) Open-angle glaucoma, unspecified glaucoma stage, unspecified laterality, unspecified open-angle glaucoma type Atherosclerosis of [place] coronary artery without angina pectoris, unspecified whether [place] or transplanted heart Hyperparathyroidism, secondary renal (HCC) [...] depressive disorder, recurrent episode, mild Atherosclerosis of [place] coronary artery of [place] heart without angina pectoris Hyperparathyroidism, secondary renal (HCC) Secondary hyperparathyroidism (of renal origin) Age-related osteoporosis without current pathological fracture Senile osteoporosis Lymphedema Other lymphedema Confusion Unspecified psychosis Dysuria Type 2 diabetes mellitus with hemoglobin A1c goal of less than 8.0% (HCC) Other chronic pain Type 2 diabetes mellitus with stage 3b chronic kidney disease, without long-term current use of insulin (HCC) Dyslipidemia, goal LDL below 70 Other and unspecified hyperlipidemia documented in this encounter Advance Directives * [...] and were consensually agreed upon. Care Teams Youth Care Professional Relationship Specialty Start Date End Date Steve Hooker III, MD [address] [place] [address], [place] [address] PCP - General 01/30/1996 documented as of this encounter
--- OUTSIDE RECORDS SUMMARY | 2024-10-06 00:24 | External Medical Summary ---
Author Name Unknown Address Unknown Organization [id number]:LAB[facility]ATORY [facility] [place] [address] [place] [address] Laboratory Report Ordering Provider Test Date Status TORIN ALVARADO III 07/29/2024 12:00:36 Final Observation Date Value Abnormality Reference (Units ) Status HbA1C 07/29/2024 12:00:36 5.6 4.0-5.6 (% ) Final The use of HbA1c to monitor glycemic status is based on normal hemoglobin and HbA composition. This test should not be used in patients with abnormal hemoglobin that affects the half life of the red blood cell or the in vivo glycation rates. Glucose, estimated average 07/29/2024 12:00:36 114 <126 (mg/dL) Final Performing Location LAB[facility]ORY [facility] [address] [place] [address]
--- OUTSIDE RECORDS SUMMARY | 2024-10-06 00:24 | External Medical Summary ---
Author Name Unknown Address Unknown Organization [id number]:LABORATORY [facility] - [address] [place] [address] Laboratory Report Ordering Provider Test Date Status CHRISTIANOOTRIN III 07/29/2024 12:00:36 Final <10,000 colonies/ml mixed no rmal jack Observation Date Value Abnormality Reference (Units ) Status Bacteria identified in Specimen by Culture 07/29/2024 12:00:36 [id number]^ENTEROC OCCUS SPECIES Abnormal Final >100,000 colonies/mL Enteroc occus species Performing Location LABORATORY [facility] - [address] [place] [address] Ordering Provider Test Date Status CHRISTIANOTORIN III 07/29/2024 12:00:36 Final Observation Date Value Abnormality Reference (Units ) Status Ampicillin 07/29/2024 12:00:36 <=2 Susceptible Final Nitrofurantoin susceptibility 07/29/2024 12:00:36 <=16 Susceptible Final Tetracyclinesusceptibility 07/29/2024 12:00:36 >=16 Resistant Final Vancomycinsusceptibility 07/29/2024 12:00:36 1 Susceptible Final Test: Culture, Urine, Quanti tative
Specimen Source: Urine, Clean Catch
Specimen Type: Urine
Specimen Date: 07/29/2024 1200
Result Date: 08/01/2024 1056
Result Status: Final result
Abnormal: Yes
Resulting Lab: LABORATORY [facility]
[address]
[place] [address]

CULTURE

>100,000 colonies/mL Enterococcus species (Abnormal)

<10,000 colonies/ml mixed normal jack

SUSCEPTIBILITY

Enterococcus
species
METHOD MICROBROTH
DILUTIONS

AMPICILLIN <=2 Susceptible
NITROFURANTOIN <=16 Susceptible
TETRACYCLINE >=16 Resistant
VANCOMYCIN 1 Susceptible

null Performing Location LABORATORY [facility] - [address] [facility] [address]
--- OUTSIDE RECORDS SUMMARY | 2024-10-06 00:24 | External Medical Summary ---
Author Name Unknown Address Unknown Organization K01:LABORATORY [facility] - [address] [place] [address] Laboratory Report Ordering Provider Test Date Status TORIN ALVARADO III 07/29/2024 12:00:36 Final Observation Date Value Abnormality Reference (Units ) Status LDL, (direct) 07/29/2024 12:00:36 65 <=129 (mg/dL) Final LDL Cholesterol Reference Ra nges (mg/dL):
<70 � � Target level for high risk ASCVD patient
<100 � �Optimal for general population
100-129 Near optimal for general population
130-159 Borderline high
160-189 High
>=190 � Very high Performing Location LABORATORY [facility] - [address] [facility] [address]
--- OUTSIDE RECORDS SUMMARY | 2024-10-06 00:24 | External Medical Summary | Summary of Care ---
Author Name Unknown Organization [facility] Address [address] [facility] [place] [address] Phone [phone] Care Team Providers Care Curriculum Development Manager Name Role Phone Nhung LOPEZ MD, Steve Langston Primary Care Provider [phone] Reason for Visit * Reason Comments Dosage Adjustment Via Phone (anticoag Cl inic) Encounter Details Date Type Department Care Team ([facility] st Contact Info) Description 07/28/2024 6:00 AM EST Anticoagulation Centralized Clinical Pharmacy Services, Alfred Guevara [address] [place] [address] [place] [address] [facility], [address] [place] [address] Anticoagulation management encounter* Allergies Active Allergy Reactions Criticality Noted Date Comments Adhesive Tape 07/05/2022 Doxycycline Nausea/vomiting 11/03/2010 Metoclopramide Hcl Neuro complications (Please comment) 12/07/2010 Developed worsening tremor and lip smacking. Naproxen 01/23/2012 Can not tolerate-gets very emotional and depressed documented as of this encounter (statuses as of 07/28/2024) Medications ASPIRIN 81 MG PO TABS Take [...] goal of less than 8.0% ([facility]) Use to test once daily DX E11.9 100 Each 3 07/20/19 21 Active Additional Information Patient not taking.Reported on 05/29/2024 Biotin 42314 MCG Oral Tablet Take 1 Tablet by [...] 1:58 PM EST 06/04/20 23 Active Depend Mnh-Avds-Qpepj-M Use as directed. 30 Each 11 07/03/19 [...] 9:11 AM EST 06/19/19 25 026 Active oxyCODONE-Acetami nophen 10-325 MG Oral TabletIndications :Pain Take 1 Tablet by mouth every 6 hours as needed for Severe Pain 120 Tablet 5 12:05 PM EST 06/25/19 25 Active Magnesium Oxide -Mg Supplement 400 (240 Mg) MG Oral Tablet (Mag-Ox) take 1 tablet by mouth every morning 90 Tablet 2 5 12:05 PM EST 04/25/20 24 Active levETIRAcetam 500 MG Oral Tablet (Keppra) Take 1 Tablet by mouth in the morning and 1 Tablet before bedtime. 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 behavi oral disturbance, psychotic disturbance, mood disturbance, or anxiety 06/29/2024 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 status epileptic us 08/07/2023 Assessment & Plan (06/29/2024 3:10 PM EST): Stable on current dose keppra Assessment & Plan (08/07/2023 2:31 PM EST): H/o post stroke seizure Continue keppra No recent seizure activity 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 DM peripheral angiopathy 05/26/2023 Atherosclerosis of zuni co ronary artery without angina pectoris 05/26/2023 [...] Plan (02/27/2023 10:12 PM EDT): Amiodarone, coumadin Polymyalgia rheumatica 07/19/2021 Hypertensive heart and kidne y disease [...] in the Comments) Remote Patient Monitoring Vendor: rollApp Device(s): Connected Scale Self - Management Plan [...] SGLT2 Inhibitor: none Remote Patient Monitoring Vendor: rollApp Device(s): Connected Scale Self - Management Plan [...] SGLT2 Inhibitor: none Remote Patient Monitoring Vendor: rollApp Device(s): Connected Scale Self - Management Plan [...] 12/22/13 Steve Hooker III, MD [facility] Facet arthropathy, lumbar 10/07/2013 Type 2 diabetes mellitus wit h hemoglobin A1c goal of less than 8.0% 07/15/2013 Overview (10/13/2015): ICD-10 update of inactive term History of tobacco use 02/18/2013 Hearing loss 02/18/2013 DYSLIPIDEMIA, GOAL LDL BELOW 70 05/30/2009 Overview (05/30/2009): Per Lipid Taxonomy. S/P angioplasty with stent 09/05/2002 documented as of this encounter (statuses as of 07/28/2024) Resolved Problems Problem Noted Date Diagnosed Date Resolved Date Type 2 diabetes mellitus wit h diabetic [...] Comments A1c at goal Hypothyroidism 08/07/2023 08/07/2023 Hypothyroidism 09/12/2020 11/08/2021 Hypertensive heart and kidne [...] as of this encounter (statuses as of 07/28/2024) Immunizations Name Administration Dates Next Due COVID-19 mRNA, LNP-s, No Pre serve, 2-Dose Series ([id number]) 06/01/2021,10/15/2020,09/24/2020 Covid-19, Mrna, Lnp-s, Pf, B ivalent, [...] No 05/07/2024 Does the household have a [facility] source of income? 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 on file Not on file Not on vanda e [employer] Not on file Not on file Not on file [employer] Not on file Not on file Not on file documented as of this encounter Progress Notes * NemesioLacey jerry CPhT - 07/28/2024 9:14 AM EST Contacts Contact Date/Time Type Contact Phone/Fax 07/28/2024 09:11 AM EST Phone (Outgoing) RUFINO MCCALLUM (Emergency Contact) [phone] (M) Left Message - Left voicemail/ Outgoing voicemail identified the patient's contact lens cutter's phone number listed in the side bar note Subjective Advised patient to contact Anticoagulation Clinic if any unusual bruising or bleeding, recent illness, changes in medication, or questions/concerns. PT/INR results, Coumadin dose instructions, and next PT/INR date communicated as noted by Pharmacist: Yes LACEY JAY CPhT 07/28/2024, 9:14 AM * Lea Espana RPh - 07/28/2024 7:59 AM EST Images from the original note were not included. Coumadin Clinic (region specific) Objective Current Warfarin Dose As of 07/28/2024 Warfarin maintenance plan: 4 mg (4 mg x 1) every Myrna; 6 mg (4 mg x 1.5) all other days INR Result As of 07/28/2024 INR goal: 2.0-3.0 INR used for dosin.1 (07/27/2024) Assessment & Plan Warfarin Plan As of 07/28/2024 Full warfarin instructions: 4 mg every Tue, Myrna; 6 mg all other days Next INR check: 08/06/2024 Repeat PT/INR in 1.5 week(s) Weekly dose: decreased Additional Dosing Information: Description GML - Call Rufino with results/dosing Amiodarone decreased 01/2021 Tech to contact patient with dose instructions as noted. Lea Espana RPh 07/28/2024, 7:59 AM documented in this encounter Plan of Treatment Upcoming Encounters Date Type Department Care Team (Late Contact Info) Description 08/07/2024 6:00 AM EST Anticoagulation Centralized Clinical Pharmacy Services, Alfred Guevara [address] [place] [address] [place] [address] [facility], [facility] [address] [place] [address] 08/18/2024 3:00 PM EST Home Visit [facility], [facility] [address] [place] [address] Alma Rosa Washburn PA-C [address] [place] [address] Health Maintenance Due Date Last Done Comments Adult Wellness Visit 09/16/2019 09/15/2018 Depression Monitoring 09/16/2019 09/15/2018 Diabetic Foot Exam 09/12/2021 09/12/2020, 0 12/09/2019, 01/07/2019, Additional history exists *BISPHONATE OR OTHER ACCEPTABLE MEDICATION NEEDED FOR OSTEOPOROSIS (REFER TO SMARTSET #1146) 02/17/2022 Albumin/Creatinine Ratio 07/27/2022 022, 01/15/2020, 04/07/2019, Additional history exists DXA Scan 12/27/2023 12/26/2021, 12/15, 05/26/2014, Additional history exists COVID-19 Vaccine ( season) 2024 07/12/2022, 06/01/2021, 10/15/2020, Additional history exists Diabetic Eye Exam 06/07/2024 06/07/2023, , 06/07/2023, Additional history exists CKD PHOS USE SMARTSET 77721 10/20/2024 05/0 11/2023, 03/02/2022, 07/04/2021, Additional history exists HbA1c 11/02/2024 05/05/2024, 05/0 11/2023, 11/27/2022, Additional history exists DTap/Tdap Vaccines (2 - Td or Tdap) 02/01/2025 02/01/2015, 11/20/2007, 09/21/1998 CKD HGB USE SMARTSET 54167 05/29/202505/29, 08/27/2023, 08/27/2023, Additional history exists Pneumococcal Vaccine: 50+ Years Completed 08/04/2014, 12/29/2009 Zoster Vaccines Completed 11/14/2018, 10/15, 05/30/2018, Additional history exists VITAMIN D LEVEL ONCE IN A LIFETIME-USE SMARTSET# [id number] Completed 07/04/2021, 09/12/2020, 01/11/2020, Additional history exists [...] kidney disease, unspecified CKD stage, unspecified whether nursing home insulin use (HCC) Open-angle glaucoma, unspecified glaucoma stage, unspecified laterality, unspecified open-angle glaucoma type Atherosclerosis of zuni coronary artery without angina pectoris, unspecified whether zuni or transplanted heart Hyperparathyroidism, secondary renal (HCC) [...] depressive disorder, recurrent episode, mild Atherosclerosis of zuni coronary artery of zuni heart without angina pectoris Hyperparathyroidism, secondary renal [...] and were consensually agreed upon. Care Teams Curriculum Development Manager Relationship Specialty Start Date End Date Steve Hooker III, MD [address] [place] [address] PCP - General 01/30/1996 documented as of this encounter
--- OUTSIDE RECORDS SUMMARY | 2024-10-06 00:24 | External Medical Summary ---
Author Name Unknown Address Unknown Organization [id number]:[facility] - [address] [facility] [address] Laboratory Report Ordering Provider Test Date Status TORIN ALVARADO III 07/29/2024 12:00:36 Final Drugs that require complianc e testing:

Opioids:
Oxycodone:

Date/Time of last Dose 07/29/24 [id number]

Cutoff Concentrations:
Drug Level
Amphetamines 500 ng/mL
Benzodiazepines 100 ng/mL
Cannabinoids 50 ng/mL
Cocaine Metabolite 150 ng/mL
Fentanyl 1 ng/mL
Hydrocodone / Hydromorphone 300 ng/mL
Methadone Metabolite 100 ng/mL
Morphine / Codeine 300 ng/mL
Oxycodone / Oxymorphone 100 ng/mL

Screening results are presumptive and can only be used for medical purposes. Confirmatory testing is available upon request. Observation Date Value Abnormality Reference (Units) Status COMPLIANCE INTERPRETATION 07/29/2024 12:00:36 Based on the medication information provided: Final COMPLIANCE INTERPRETATION 07/29/2024 12:00:36 The positive oxycodone screening result is CONSISTENT with oxycodone use. Confirmatory testing is available upon request. Final Changed Report: Previously r eported on 07/30/2024 at 1422 EST. See Results History in EPIC for previous versions of the report. Amphetamines, Urine screen 07/29/2024 12:00:36 Negative Negative Final Benzodiazepines, Urine screen 07/29/2024 12:00:36 Negative Negative Final Cannabinoids, Urine screen 07/29/2024 12:00:36 Negative Negative Final Cocaine Metabolite, Urine screen 07/29/2024 12:00:36 Negativ e Negative Final fentaNYL [Presence] in Urine by Screen method 07/29/2024 12:00:36 Negative Negative Final HYDROcodone [Presence] in Ur ine by Screen method 07/29/2024 12:00:36 Negative Negative Chiquita l 5-Pspxyuwiug-8,4-Wymzehgx-2, 3-Di phenylpyrrolidine (EDDP) [Presence] in Urine 07/29/2024 12:00:36 Negative Negative F inal Opiates, Urine screen 07/29/2024 12:00:36 Negative Negative Final oxyCODONE [Presence] in Urin e by Screen method 07/29/2024 12:00:36 Positive Abnormal Negative Final FORENSIC VALID INTERPRETATION 07/29/2024 12:00:36 Normal Final Creatinine, Urine 07/29/2024 12:00:36 81 (m g/dL) Final Performing Location [facility] - [address] [facility] [address]
--- OUTSIDE RECORDS SUMMARY | 2024-10-06 00:24 | External Medical Summary | Summary of Care ---
Author Name Unknown Organization [facility] Address [address] [place] [address] Phone [phone] Care Team Providers Care Landman Name Role Phone Nhung LOPEZ MD, Steve Langston Primary Care Provider [phone] Reason for Referral * Evaluate & Treat - Unlimited Visits (Within 10 days (routine)) - Authorized Specialty Diagnoses / Procedures Referred By Lizabeth sim Referred To Contact SPECIAL OFFICER [employer] - Urogynecology / Gynecology Urology Diagnoses Stress incontinence Urge incontinence Steve Hooker III, MD [address] [place] [address] Phone: tel: fax: Referral ID Status Reason Start Date Expiration Date Visits Requested Visits Authorized [id number] Authorized Specialty Services Required 07/29/[phone] Question Answer Referral Priority Within 10 days (routine) Where should this appointment be scheduled? [facility] What condition is the patient being referred for? 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[facility]); Moderate persistent asthma without complication; Dementia in other diseases classified elsewhere, mild, with mood disturbance ([facility]); Type 2 diabetes mellitus with hemoglobin A1c goal of less than 8.0% ([facility]); Type 2 diabetes mellitus with stage 3b chronic kidney disease, without long-term current use of insulin ([facility]); Stress incontinence; Urge incontinence; Other chronic pain; Laceration of left upper extremity, subsequent encounter Allergies Active Allergy Reactions Criticality Noted Date [...] than 8.0% ([facility]) Use to test once daily DX E11.9 100 Each 3 07/20/19 21 Active Additional Information Patient not taking.Reported on 05/29/2024 Biotin 57200 MCG Oral Tablet Take 1 Tablet by [...] 1:58 PM EST 06/04/20 23 Active Depend Knq-Gkaz-Cphyf-M Use as directed. 30 Each 11 07/03/19 [...] 05/26/2023 DM peripheral angiopathy 05/26/2023 Atherosclerosis of ramona co ronary artery without angina pectoris 05/26/2023 [...] in the Comments) Remote Patient Monitoring Vendor: [employer] Device(s): Connected Scale Self - Management Plan [...] SGLT2 Inhibitor: none Remote Patient Monitoring Vendor: [employer] Device(s): Connected Scale Self - Management Plan [...] SGLT2 Inhibitor: none Remote Patient Monitoring Vendor: [facility] Device(s): Connected Scale Self - Management Plan [...] 12/22/13 Steve Hooker III, MD [facility] [place] Facet arthropathy, lumbar 10/07/2013 Type 2 diabetes [...] mRNA, LNP-s, No Pre serve, 2-Dose Series ([employer]) 06/01/2021,10/15/2020,09/24/2020 Covid-19, Mrna, Lnp-s, Pf, B ivalent, [...] 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5") 07/29/2024 10:49 AM ES T Body Mass Index 29.59 07/29/2024 10:49 AM EST documented in this encounter Progress Notes * Steve Hooker III, MD - 07/29/2024 11:16 AM EST Subjective: Rhea Diaz is a 89 year old female. 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 post stroke none since that patient or son is aware of marked swelling of her ankles worse on the left than the right incontinence both stress and urge having more breathing issues fumes related to a furnace problem to be checked out today PHM: Patient Active Problem List Diagnosis S/P angioplasty with stent DYSLIPIDEMIA, GOAL LDL BELOW 70 History of tobacco use Hearing loss Type 2 diabetes mellitus with hemoglobin A1c goal of less than 8.0% (HCC) Facet arthropathy, lumbar MEDICATION USE AGREEMENT Venous insufficiency Moderate persistent asthma without complication 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, secondary renal (HCC) Gastroesophageal reflux disease without esophagitis Unspecified open-angle glaucoma, stage unspecified Cardiac pacemaker in situ Hemiplegia, 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HCC) Major depressive disorder, recurrent episode, mild (HCC) Paroxysmal atrial fibrillation (HCC) Polymyalgia rheumatica (HCC) Hypertensive heart and kidney 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 and stage 3b chronic kidney disease (HCC) Age-related osteoporosis without current pathological fracture Unspecified dementia, unspecified severity, without behavioral disturbance, psychotic disturbance, mood disturbance, and anxiety (HCC) Advanced care planning/counseling discussion 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HCC) DM peripheral angiopathy (HCC) 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 status epilepticus (HCC) Atherosclerosis of ramona coronary artery without angina 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 1 Each0 Atorvastatin Calcium 40 MG Oral Tablet (Lipitor) TAKE ONE TABLET BY MOUTH EVERY DAY 100 Tablet 3 Depend Nsh-Ixkc-Riekj-M Use as directed. 30 Each 11 Potassium Chloride Elvi ER 10 MEQ Oral Tablet Extended Release Take 1 Tablet by mouth daily. 100 Tablet 3 DULoxetine HCl 60 MG Oral Capsule Delayed Release Particles (Cymbalta) TAKE ONE CAPSULE BY MOUTH EVERY MORNING DO NOT CUT, CRUSH OR CHEW 90 Capsule 3 buPROPion HCl ER (SR) 100 MG Oral Tablet Extended Release 12 Hour (Wellbutrin SR) Take 1 Tablet by mouth in the morning. 30 Tablet 11 Diclofenac Sodium 1 % External Gel (Voltaren) APPLY 4 GRAMS TOPICALLY TO RIGHT HIP FOUR TIMES A RAP893 g 3 Triamcinolone Acetonide 0.1 % External Ointment (Aristocort) Apply topically to affected area 2 times a day. 60 g 5 Warfarin Sodium 4 MG Oral Tablet (Coumadin) TAKE ONE TO ONE AND ONE-HALF TABLETS BY MOUTH EVERY DAYAS DIRECTED BY ANTICOAGULATION PHARMACIST 135 Tablet 3 traZODone HCl 50 MG Oral Tablet (Desyrel) TAKE 1/2 TABLET BY MOUTH AT BEDTIME 45 Tablet 1 Metoprolol Succinate ER 25 MG Oral Tablet Extended Release 24 Hour (toPROL XL) Take 1 Tablet by mouth in the morning. 100 Tablet 0 Torsemide 20 MG Oral Tablet (Demadex) Take 1 Tablet by mouth in the morning and 1 Tablet in the evening. 90 Tablet 1 Omeprazole 20 MG Oral Capsule [...] DAY IN THE MORNING 100 Tablet 1 oxyCODONE-Acetaminophen 10-325 MG Oral Tablet [...] performed by Aidan Ferrera DO at ENDOSCOPY [facility] CORONARY ARTERY DILATION, BALLOON 1994 PTCA CYSTO/URETERO W/LITHOTRIPSY Left 03/08/2017 CYSTOURETHROSCOPY URETEROSCOPY WITH LITHOTRIPSY AND STENT INSERTION performed by Lea Villasenor MD at OR [facility] CYSTO/URETERO W/LITHOTRIPSY Left 03/22/2017 CYSTOURETHROSCOPY URETEROSCOPY WITH LITHOTRIPSY AND STENT INSERTION performed by Lea Villasenor MD at OR [facility] CYSTOSCOPY 05-16-2015 DIABETIC EYE EXAM 03/10/13 EGD, FLEXIBLE, DIAGNOSTIC 10/09/2010 hiatal hernia HEMORRHOIDECTOMY, SIMPLE, 1 COLUMN 10/16/2013 HEMORRHOIDECTOMY EXTERNAL AND INTERNAL SIMPLE performed by Neri Heaton MD at OR [facility] INFORMATION 11.7.02 intravitreal kenalog injection left eye for macular edema INFORMATION foot surgery bilateral INJECT DX/THER SUBSTANCE INTERLAMINAR LUMBAR/SACRAL W IMAGE GUIDE 04/13/2019 INJECTION SPINE LUMBAR OR SACRAL performed by Fredrick Mcdaniels, at OR [facility] KNEE ARTHROSCOPY, DIAGNOSTIC Left L-/S-SPINE PARAVERTEBRAL FACET INJ,1 LEVEL 03/02/2019 L-/S-SPINE PARAVERTEBRAL FACET INJ, 1 LEVEL performed by Fredrick Mcdaniels, at OR [facility] L-/S-SPINE PARAVERTEBRAL FACET INJ,1 LEVEL 06/01/2019 L-/S-SPINE PARAVERTEBRAL FACET INJ, 1 LEVEL performed by Fredrick Mcdaniels DO at OR [facility] LAPAROSCOPY; CHOLECYSTECTOMY 08/17/10 Dr. Messina LIGATE/CUT OVIDUCT(S) 1964 Tubal Ligation MAMMOGRAM - BILATERAL 05/07/03 birad [...] performed by Fredrick Mcdaniels, DO at OR [facility] SLEEP STUDY, W/O CPAP (APNEA SCREEN) [...] tolerate-gets very emotional and depressed Objective: BP 126/76 | Pulse 60 | Temp 99.1 °F (37.3 °C) (Tympanic) | Ht 5' 2.5" (1.588 m) | Wt 164 lb 6.4 oz (74.6 kg) | SpO2 99% | BMI 29.59 kg/m² | BSA 1.81 m² Physical Exam: General: alert, healthy, and no distress Eye Exam: PERRLA, extraocular movements intact, conjunctiva are pink and non- injected, sclera clear Oropharynx: no exudate, no erythema, lips, buccal mucosa, and tongue normal, and mucous membranes are moist Heart: regular rate & rhythm, no murmur, and no gallops Lungs: lungs clear to auscultation Extremities: no clubbing, no cyanosis, +1-2 2 edema bilaterally a little worse on the left than right Laceration left forearm no evidence of secondary infection cleaning with alcohol sutures removed ASSESSMENT/PLAN: 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 Medications & HM reviewed. documented in this encounter Plan of Treatment Upcoming Encounters Date Type Department Care Team (Late st Contact Info) Description 08/06/2024 7:00 AM EST Laboratory Lab Mobile [facility]bot[facility] [address] [place] [id number] [facility] Draw [address] [place] [id number] 08/07/2024 6:00 AM EST Anticoagulation [facility], Alfred Guevara [address] [place] [address] [address] [place] [address] [place], [facility] [address] [place] [address] 08/18/2024 3:00 PM EST Home Visit [facility] at Home, [facility] [address] [place] [address] Alma Rosa Washburn PA-C [address] [place] [id number] Pending Results Name Type Priority Associated Diagnoses Date /Time HEMOGLOBIN A1C Lab Routine Type 2 diabetes mellitus with hemoglobin A1c goal of less than 8.0% (HCC) 07/29/2024 12:00 PM EST PAIN MANAGEMENT DRUG PANEL, URINE W/ INTERPRETATION Lab Routine Other chronic pain 07/29/2024 12:00 PM EST LDL CHOLESTEROL (DIRECT MEASURE) Lab Routine Dyslipidemia, goal LDL below 70 07/29/2024 12:00 PM EST Scheduled Orders Name Type Priority Associated Diagnoses Orde r Schedule HEMOGLOBIN A1C Lab Routine Type 2 diabetes mellitus with hemoglobin A1c goal of less than 8.0% (HCC) Expected: 07/29/2024 (Approximate), Expires: 07/29/2025 PAIN MANAGEMENT DRUG PANEL, URINE W/ INTERPRETATION Lab Routine Other chronic pain Expected: 07/29/2024 (Approximate), Expires: 07/29/2025 SUTURE REMOVAL-BY OTHER PROVIDER Procedures Routine Laceration of left upper extremity, subsequent encounter Ordered: 07/29/2024 LDL CHOLESTEROL (DIRECT MEASURE) Lab Routine Dyslipidemia, goal LDL below 70 Expected: 07/29/2024 (Approximate), Expires: 07/29/2025 Scheduled Referrals Name Type Priority Associated Diagnoses Orde r Schedule UROGYNECOLOGY CLINIC REFERRAL OP (FEMALE ONLY) Referral Within 10 days (routine) Stress incontinence Urge incontinence Ordered: 07/29/2024 Health Maintenance Due Date Last Done Comments [...] 06/07/2023, Additional history exists HbA1c 11/02/2024 05/05/2024, 05/11/2023, 11/27/2022, Additional history exists DTap/Tdap Vaccines (2 - Td or Tdap) 02/01/2025 02/01/2015, 11/20/2007, 09/21/1998 CKD HGB USE SMARTSET 44428 05/29/202505/29, 08/27/2023, 08/27/2023, Additional history exists CKD PHOS USE SMARTSET [id number] 07/29/202507/18, 10/21/2023, 03/02/2022, Additional history exists Pneumococcal Vaccine: 50+ Years Completed 08/04/2014, 12/29/2009 Zoster Vaccines Completed 11/14/2018, 10/15, 05/30/2018, Additional history exists VITAMIN D LEVEL ONCE IN A LIFETIME-USE SMARTSET# [id number] Completed 07/04/2021, 09/12/2020, 01/11/2020, Additional history exists [...] Not on filedocumented as of this encounter Results * (ABNORMAL) RENAL FUNCTION PANEL (07/29/2024 12:00 PM EST) BUN 28(H) 6 - 20 mg/dL 07/29/2024 12:57 PM [facility] 56- CREATININE 1.5(H) 0.5 - 1.0 mg/dL 07/29/2024 12:57 PM [facility] 56- EGFR 32(L) >=60 mL/min 07/29/2024 12:57 PM [facility] 56-02 Comment:eGFR is calculated b ased on the CKD-EPI 2020 equation. SODIUM 141 135 - 146 mmol/L 07/29/2024 12:57 PM [facility] 56-02 POTASSIUM 4.3 3.5 - 5.1 mmol/L 07/29/2024 12:57 PM [facility] 56- CHLORIDE 104 98 - 107 mmol/L 07/29/2024 12:57 PM [facility] 56- CO2 28 22 - 32 mmol/L 07/29/2024 12:57 PM [facility] 56- ANION GAP 9 7 - 15 mmol/L 07/29/2024 12:57 PM [facility] 56- GLUCOSE 99 70 - 120 mg/dL 07/29/2024 12:57 PM [facility] 56- CALCIUM 10.1 8.4 - 10.2 mg/dL 07/29/2024 12:57 PM [facility] 56- Albumin 4.0 3.8 - 5.0 g/dL 07/29/2024 12:57 PM [facility] 56-02 Phosphorus 3.0 2.5 - 4.8 mg/dL 07/29/2024 12:57 PM [facility] 56-02 Blood Venous blood specimen / Unknown Venipuncture / Unknown 07/29/2024 12:00 PM EST 07/29/2024 12:00 PM EST us Steve Hooker III, MD LAB BLOOD ORDERABLES Final Result [facility] [address]- [address] [place] [address] documented in this encounter Visit Diagnoses Diagnosis Advanced care planning/counseling discussion- Primary Other specified counseling Moderate persistent asthma without complication Unspecified asthma Paroxysmal atrial fibrillation (HCC)- Primary Atrial fibrillation Hypertensive heart and kidney 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 and stage 3b chronic kidney disease ([facility]) 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 disturbance, psychotic disturbance, mood disturbance, or anxiety, unspecified dementia severity ([facility]) Cardiac pacemaker in situ Hemiplegia, 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HCC) Hemiplegia affecting unspecified side, late effect of cerebrovascular disease Major depressive disorder, recurrent episode, mild (HCC) Major depressive disorder, recurrent episode, mild Polymyalgia rheumatica ([facility]) Polymyalgia rheumatica Hypertensive heart and kidney 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 and stage 3b chronic kidney disease ([facility])- Primary Advanced care planning/counseling discussion Other specified counseling ATHEROSCLEROTIC CORONARY DISEASE Unspecified cardiovascular disease Paroxysmal atrial fibrillation (HCC) Atrial fibrillation 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[facility]) Sinoatrial node dysfunction Cardiac pacemaker in situ Type 2 diabetes mellitus with stage 3b chronic kidney disease, without long-term current use of insulin ([facility]) DM peripheral angiopathy ([facility]) Type II or unspecified type diabetes mellitus with peripheral circulatory disorders, not stated as uncontrolled Hypertensive heart and kidney 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 and stage 3b chronic kidney disease ([facility])- Primary 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 behavioral disturbance, psychotic disturbance, mood disturbance, or anxiety, unspecified dementia type ([facility]) Paroxysmal atrial fibrillation (HCC) Atrial fibrillation 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 status epilepticus, unspecified epilepsy type ([facility]) Type 2 diabetes mellitus with diabetic chronic kidney disease, unspecified CKD stage, unspecified whether [place] [facility] insulin use ([facility]) Open-angle glaucoma, unspecified glaucoma stage, unspecified laterality, unspecified open-angle glaucoma type Atherosclerosis of ramona coronary artery without angina pectoris, unspecified whether ramona or transplanted heart Hyperparathyroidism, secondary renal (HCC) Secondary hyperparathyroidism (of renal origin) Hemiplegia, 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[facility]) Hemiplegia affecting unspecified side, late effect of cerebrovascular disease Urinary incontinence, unspecified type Hypertensive heart and kidney 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 and stage 3b chronic kidney disease ([facility])- Primary Hemiplegia, 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HCC) Hemiplegia affecting unspecified side, late effect of cerebrovascular disease 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 behavioral disturbance, psychotic disturbance, mood disturbance, or anxiety, unspecified dementia type ([facility]) Paroxysmal atrial fibrillation (HCC) Atrial fibrillation 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 status epilepticus, unspecified epilepsy type (HCC) Type 2 diabetes mellitus with stage 3b chronic kidney disease, without long-term current use of insulin (HCC) Open-angle glaucoma, unspecified glaucoma stage, unspecified laterality, unspecified open-angle glaucoma type Major depressive disorder, recurrent episode, mild (HCC) Major depressive disorder, recurrent episode, mild Atherosclerosis of ramona coronary artery of ramona heart without angina pectoris Hyperparathyroidism, secondary renal (HCC) Secondary hyperparathyroidism (of renal origin) Age-related osteoporosis without current pathological fracture Senile osteoporosis Lymphedema Other lymphedema 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 behavioral disturbance, psychotic disturbance, mood disturbance, or anxiety, unspecified dementia type (HCC)- Primary Dyslipidemia, goal LDL below 70 Other and unspecified hyperlipidemia 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HCC) Sinoatrial node dysfunction Moderate persistent asthma without complication Unspecified asthma Dementia in other diseases classified elsewhere, mild, with mood disturbance (HCC) Type 2 diabetes mellitus with hemoglobin A1c goal of less than 8.0% (HCC) Type 2 diabetes mellitus with stage 3b chronic kidney disease, without long-term current use of insulin (HCC) Stress incontinence Female stress incontinence Urge incontinence Other chronic pain Laceration of left upper extremity, subsequent encounter documented in this encounter Advance Directives * [...] and were consensually agreed upon. Care Teams Landman Relationship Specialty Start Date End Date Steve Hooker III, MD [address] [place] [address] PCP - General 01/30/1996 documented as of this encounter
--- OUTSIDE RECORDS SUMMARY | 2024-10-06 00:24 | External Medical Summary ---
Author Name Unknown Address Unknown Organization [id number]:LABORATORY [facility] - [address] [place] [address] Laboratory Report Ordering Provider Test Date Status LOURDES DE GUZMAN 07/27/2024 10:04:00 Final Standing order for pt/inr. < br/>Please draw pt/inr every 1 to 4 weeks as requested
Results to [facility]

Warfarin Therapy
INR: 2.0-3.0 conventional anticoagulation
INR: 2.5-3.5 high intensity anticoagulation Observation Date Value Abnormality Reference (Units ) Status PT 07/27/2024 10:04:00 32.6 Above high normal 11 .6-15.2 (seconds) Final INR 07/27/2024 10:04:00 3.1 Above high normal 0. 8-1.2 Final Performing Location LAB[facility]ORY [facility] - [address] [place] [address]
--- OUTSIDE RECORDS SUMMARY | 2024-10-06 00:24 | External Medical Summary ---
Author Name Unknown Address Unknown Organization [id number]:[facility] [place] [address] [place] [address] Laboratory Report Ordering Provider Test Date Status CONNIE,DURA 07/29/2024 12:00:36 Final Normal: <30 mg/g creatinine< br/>High: 30-300 mg/g creatinine
Very High: >300 mg/g creatinine
Nephrotic: >2200 mg/g creatinine Observation Date Value Abnormality Reference (Units ) Status Albumin, Urine 07/29/2024 12:00:36 4.00 (mg/dL) Final Creatinine, Urine 07/29/2024 12:00:36 85 (mg/dL) Final Albumin/Creatinine [Mass Ratio] in Urine 07/29/2024 12:00:36 47 Above high normal <30 (mg/g Creat) Final Performing Location [facility]ORY [facility] - [address] [place] [address]
--- OUTSIDE RECORDS SUMMARY | 2024-10-06 00:24 | External Medical Summary | Summary of Care ---
Author Name Unknown Organization [facility] Address [address] [place] [address] Phone [phone] Care Team Providers Care Grounds Cleaner Name Role Phone Nhung LOPEZ MD, Steve Langston Primary Care Provider [phone] Encounter Details Date Type Department Care Team (Late st Contact Info) Description 07/28/2024 Population Health External Data Unspecified Department Allergies Active Allergy Reactions Criticality Noted Date [...] Information Patient not taking.Reported on 05/29/2024 Biotin 20478 MCG Oral Tablet Take 1 Tablet by [...] 1:58 PM EST 06/04/20 23 Active Depend Cgw-Hdlc-Dgjwj-M Use as directed. 30 Each 11 07/03/19 [...] 05/26/2023 DM peripheral angiopathy 05/26/2023 Atherosclerosis of kaibab co ronary artery without angina pectoris 05/26/2023 [...] in the Comments) Remote Patient Monitoring Vendor: 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 [address] [facility], [address] [place] [address] 08/18/2024 3:00 PM EST [facility] Visit [facility], [facility] [address] [place] [address] Alma Rosa Clemons PA-C [address] [place] [address] Health Maintenance Due Date Last Done Comments [...] 02/01/2015, 11/20/2007, 09/21/1998 CKD HGB USE SMARTSET 94600 05/29/202505/29, 08/27/2023, 08/27/2023, Additional history exists CKD PHOS USE SMARTSET 09086 07/29/202507/18, 10/21/2023, 03/02/2022, Additional history exists Pneumococcal Vaccine: 50+ Years Completed 08/04/2014, 12/29/2009 Zoster Vaccines Completed 11/14/2018, 10/15, 05/30/2018, Additional history exists VITAMIN D LEVEL ONCE IN A LIFETIME-USE SMARTSET# 44590 Completed 07/04/2021, 09/12/2020, 01/11/2020, Additional history exists [...] and were consensually agreed upon. Care Teams Grounds Cleaner Relationship Specialty Start Date End Date Steve Hooker III, MD [address] [facility] [place] [address] PCP - General 01/30/1996 documented as of this encounter
--- OUTSIDE RECORDS SUMMARY | 2024-10-06 00:24 | External Medical Summary | Summary of Care ---
Author Name Unknown Organization [facility] Address [address] [place] [address] Phone [phone] Care Team Providers Care Collection Technician Name Role Phone Nhung LOPEZ MD, Christiano Langston Primary Care Provider [phone] Reason for Visit * Reason Onset Date Comments Medication Refill 07/27/2024 Encounter Details Date Type Department Care Team (Late st Contact Info) Description 07/27/2024 Refill Family Practice [facility] [place] [address] [facility] [place] [facility] [place] [address] Christiano Harkins III, MD [address] [facility] [place] [address] Pain Allergies Active Allergy Reactions Criticality Noted [...] hemoglobin A1c goal of less than 8.0% ([facility]) Use to test once daily DX E11.9 100 Each 3 07/20/19 21 Active Additional Information Patient not taking.Reported on 05/29/2024 Biotin 27181 MCG Oral Tablet Take 1 Tablet by [...] 1:58 PM EST 06/04/20 23 Active Depend Vdm-Xozt-Nwely-M Use as directed. 30 Each 11 07/03/19 [...] Pain, Severe. 120 Tablet 07/28/19 25 Active oxyCODONE-Acetami nophen 10-325 MG Oral TabletIndications :Pain Take 1 Tablet by mouth every 6 hours as needed for Severe Pain 120 Tablet 5 12:05 PM EST 06/25/19 25 2024 Disconti nued(Ref ill) documented as [...] in the Comments) Remote Patient Monitoring Vendor: [employer] Device(s): Connected Scale Self - Management Plan [...] SGLT2 Inhibitor: none Remote Patient Monitoring Vendor: [employer] Device(s): Connected Scale Self - Management Plan [...] SGLT2 Inhibitor: none Remote Patient Monitoring Vendor: [employer] Device(s): Connected Scale Self - Management Plan [...] 12/22/13 Christiano Harkins III, MD [facility] [place] Facet arthropathy, lumbar 10/07/2013 Type 2 diabetes [...] mRNA, LNP-s, No Pre serve, 2-Dose Series ([employer]) 06/01/2021,10/15/2020,09/24/2020 Covid-19, Mrna, Lnp-s, Pf, B ivalent, [...] 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 on file Not on vanda 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 Not on file Not on file [employer] Not on file Not on file Not on file documented as of this encounter Miscellaneous Notes * Telephone Encounter - Christiano Harkins III, MD - 07/28/2024 1:18 PM ESTSigned Prescriptions: Disp Refills oxyCODONE-Acetaminophen 10-325 MG Oral Tab*120 Ta*0 Sig: Take 1Tablet by mouth every 6 hours as needed for Pain, Severe.Authorizing Provider: CHRISTIANO HARKINS III---- * Telephone Encounter - Nini Berg [facility] - 07/28/2024 12:31 PM EST Pending Prescriptions: Disp Refills oxyCODONE-Acetaminophen 10-325 MG Oral Tab*120 Ta*0 Sig: Take 1 Tablet by mouth every 6 hours as needed for Pain, Severe. * Telephone Encounter - Nini Berg [facility] - 07/28/2024 12:29 PM EST I have reviewed the patient’s controlled substance dispensing history in the Prescription Drug Monitoring Program in compliance with the [place] regulations before prescribing a controlled substance. PDMP checked on 07/28/2024. Pending Prescriptions: Disp Refills oxyCODONE-Acetaminophen 10-325 MG Oral Ta*120 Ta*0 Sig: Take 1 Tablet by mouth every 6 hours as needed for Pain, Severe. Last Visit: 07/03/2023 (in office), 11/21/2022 (telemedicine) Next Visit: 07/29/2024 Date medication was last filled: 06/29/24 Date medication is due for refill: 07/28/24 Pharmacy: [facility] Is this request for a controlled substance? Yes and Urine Drug Screen Not completed Toxicology results: No results found. However, due to the size of the patient record, not all encounters were searched.Please check Results Review for a complete set of results. Please approve if appropriate. Thanks, Nini Berg PharmD Clinical Pharmacist [facility] ([facility]) [phone] 07/28/2024 12:29 PM * Telephone Encounter - Jas Vega, superintendent board mill - 07/27/2024 2:11 PM EST Did you pend patient's preferred pharmacy and medication before forwarding?yes [facility] Pending Prescriptions: Disp Refills oxyCODONE-Acetaminophen 10-325 MG Oral Ta*120 Ta*0 Sig: Take 1 Tablet by mouth every 6 hours as needed for Pain, Severe. Last Visit: 07/03/2023 (in office), 11/21/2022 (telemedicine) Next Visit: Visit date not found If no future appointments scheduled, and last appointment is greater than a year ago, please schedule patient for a follow-up appointment Last date the medication was ordered: 06/25/2024 Is this request for a controlled substance?Yes, What was the last refill date 06/25/2024 w/ quantity 120 and dosage 10-325 and Urine Drug Screen Not completed Urine Drug Screen:No results found. However, due to the size of the patient record, not all encounters were searched. Please check Results Review for a complete set of results. Patient Phone Numbers Labs: Lab Results Component Value Date/Time CREAT 1.6 (H) 05/29/2024 02:03 PM CREAT 1.30 (A) 06/03/2020 12:00 AM CREAT 1.5 (H) 03/23/2020 03:39 PM CREAT 0.7 08/21/1996 08:30 AM POTASSIUM 4.0 05/29/2024 02:03 PM POTASSIUM 4.2 06/03/2020 12:00 AM POTASSIUM 4.2 03/23/2020 03:39 PM POTASSIUM 4.3 08/21/1996 08:30 AM TSH 2.04 12/21/2021 12:27 PM TSH 1.320 06/03/2020 12:00 AM TSH 1.79 03/23/2020 03:39 PM TSH 1.24 08/28/1996 02:50 PM LDL 65 01/14/2023 10:05 AM LDL 69 03/23/2020 03:39 PM LDL NOT APPLICABLE 03/23/2020 03:39 PM LDL 111. 08/21/1996 08:30 AM ALT 42 (H) 05/29/2024 02:03 PM ALT 18 03/23/2020 03:39 PM ALT 21 08/21/1996 08:30 AM HGBA1C 5.8 (H) 05/05/2024 10:40 AM HGBA1C 5.6 03/27/2021 11:49 AM HGBA1C 6.1 (A) 11/26/2019 12:00 AM HGBA1C 6.2 (H) 03/09/2019 03:08 PM documented in this encounter Plan of Treatment Upcoming Encounters Date Type Department Care Team (Late st Contact Info) Description 07/29/2024 10:40 AM EST Office Visit Family Practice [facility] [address] [facility] [place] [address] Christiano Harkins III, MD [address] [facility] [place] [address] 08/06/2024 7:00 AM EST Laboratory Lab Mobile Phlebotomy [facility] [address] [place] [address] [facility], Gml Mobile Home Draw [address] [place] [address] 08/07/2024 6:00 AM EST Anticoagulation Central[facility] Clinical [facility] Services, Alfred Guevara [address] [place] [address] [place] [address] [facility] [address] [place] [address] 08/18/2024 3:00 PM EST [facility], [facility] [address] [place] [address] Alma Rosa Washburn PA-C [address] [place] [address] Health Maintenance Due Date Last Done Comments [...] Additional history exists CKD PHOS USE SMARTSET 38915 10/20/2024 05/0 11/2023, 03/02/2022, 07/04/2021, Additional history exists HbA1c 11/02/2024 05/05/2024, 05/0 11/2023, 11/27/2022, Additional history exists DTap/Tdap Vaccines (2 - Td or Tdap) 02/01/2025 02/01/2015, 11/20/2007, 09/21/1998 CKD HGB USE SMARTSET 77303 05/29/202505/29, 08/27/2023, 08/27/2023, Additional history exists Pneumococcal Vaccine: 50+ Years Completed 08/04/2014, 12/29/2009 Zoster Vaccines Completed 11/14/2018, 10/15, 05/30/2018, Additional history exists VITAMIN D LEVEL ONCE IN A LIFETIME-USE SMARTSET# 78270 Completed 07/04/2021, 09/12/2020, 01/11/2020, Additional history exists [...] kidney disease, unspecified CKD stage, unspecified whether terminologist insulin use (HCC) Open-angle glaucoma, unspecified glaucoma stage, unspecified laterality, unspecified open-angle glaucoma type Atherosclerosis of soboba coronary artery without angina pectoris, unspecified whether soboba or transplanted heart Hyperparathyroidism, secondary renal (HCC) [...] depressive disorder, recurrent episode, mild Atherosclerosis of soboba coronary artery of soboba heart without angina pectoris Hyperparathyroidism, secondary renal [...] and were consensually agreed upon. Care Teams Collection Technician Relationship Specialty Start Date End Date Christiano Harkins III, MD [address] [facility] [place] [address] PCP - General 01/30/1996 documented as of this encounter
--- OUTSIDE RECORDS SUMMARY | 2024-10-06 00:24 | External Medical Summary ---
Author Name Unknown Address Unknown Organization K09[facility] [place] [address] Laboratory Report Ordering Provider Test Date Status TORIN ALVARADO III 07/29/2024 12:00:36 Final Observation Date Value Abnormality Reference (Units ) Status BUN 07/29/2024 12:00:36 28 Above high normal 6-20 (mg/dL) Final Creatinine 07/29/2024 12:00:36 1.5 Above high normal 0.5-1.0 (mg/dL) Final Glomerular filtration rate/1.73 sq M.predicted [Volume Rate/Area] in Serum, Plasma or Blood by Creatinine-based formula (CKD-EPI) 07/29/2024 12:00:36 32 Below low normal >=60 (mL/min) Final eGFR is calculated based on the CKD-EPI 2020 equation. Sodium 07/29/2024 12:00:36 141 135-146 (m mol/L) Final Potassium 07/29/2024 12:00:36 4.3 3.5-5.1 (m mol/L) Final Cl 07/29/2024 12:00:36 104 98-107 (mm ol/L) Final CO2 07/29/2024 12:00:36 28 22-32 (mmo l/L) Final Anion gap 07/29/2024 12:00:36 9 7-15 (mmol /L) Final Glucose 07/29/2024 12:00:36 99 70-120 (mg /dL) Final Calcium 07/29/2024 12:00:36 10.1 8.4-10.2 ( mg/dL) Final Albumin 07/29/2024 12:00:36 4.0 3.8-5.0 (g /dL) Final Phosphate 07/29/2024 12:00:36 3.0 2.5-4.8 (m g/dL) Final Performing Location [facility] [place] [address]
--- OUTSIDE RECORDS SUMMARY | 2024-10-06 00:24 | External Medical Summary | Summary of Care ---
Author Name Unknown Organization [facility] Address [address] [place] [address] Phone [phone] Care Team Providers Care Seed Laboratory Technician Name Role Phone Nhung LOPEZ MD, Christiano Langston Primary Care Provider [phone] Reason for Visit * Reason Comments Medication Refill Encounter Details Date Type Department Care Team (Late st Contact Info) Description 07/23/2024 Refill Family Practice [facility] [address] [place] [address] Christiano Harkins III, MD [address] [place] [address] CHOUDHARY (dyspnea on exertion) Allergies Active Allergy Reactions Criticality Noted Date Comments Adhesive Tape 07/05/2022 Doxycycline Nausea/vomiting 11/03/2010 Metoclopramide Hcl Neuro complications (Please comment) 12/07/2010 Developed worsening tremor and lip smacking. Naproxen 01/23/2012 Can not tolerate-gets very emotional and depressed documented as of this encounter (statuses as of 07/23/2024) Medications ASPIRIN 81 MG PO TABS Take [...] goal of less than 8.0% ([facility]) Use to test once daily DX E11.9 100 Each 3 07/20/19 21 Active Additional Information Patient not taking.Reported on 05/29/2024 Biotin 99547 MCG Oral Tablet Take 1 Tablet by [...] 1:58 PM EST 06/04/20 23 Active Depend Wkn-Ytlv-Dzeef-M Use as directed. 30 Each 11 07/03/19 [...] 9:11 AM EST 06/19/19 25 2025 Active oxyCODONE-Acetami nophen 10-325 MG Oral TabletIndications [...] MORNING 100 Tablet 1 07/23/19 25 Active Isosorbide Mononitrate ER 30 MG Oral Tablet Extended Release 24 Hour (Imdur)Indication s:CHOUDHARY (dyspnea on exertion) TAKE ONE TABLET BY MOUTH EVERY DAY IN THE MORNING 100 Tablet 3 4 1:02 PM EST 06/04/20 23 2024 Disconti nued(Ref ill) documented as of this encounter (statuses as of 07/23/2024) Active Problems Problem Noted Date Diagnosed Date [...] DM peripheral angiopathy 05/26/2023 Atherosclerosis of confederated coos co ronary artery without angina pectoris 05/26/2023 [...] in the Comments) Remote Patient Monitoring Vendor: [employer] Device(s): Connected Scale Self - Management Plan [...] SGLT2 Inhibitor: none Remote Patient Monitoring Vendor: [employer] Device(s): Connected Scale Self - Management Plan [...] SGLT2 Inhibitor: none Remote Patient Monitoring Vendor: [employer] Device(s): Connected Scale Self - Management Plan [...] 12/22/13 Christiano Harkins III, MD [facility] [place] Facet arthropathy, lumbar 10/07/2013 Type 2 diabetes mellitus wit h hemoglobin A1c goal of less than 8.0% 07/15/2013 Overview (10/13/2015): ICD-10 update of inactive term History of tobacco use 02/18/2013 Hearing loss 02/18/2013 DYSLIPIDEMIA, GOAL LDL BELOW 70 05/30/2009 Overview (05/30/2009): Per Lipid Taxonomy. 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 Not on file Not on vanda e 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 Not on file Not on file [employer] Not on file Not on file Not on file documented as of this encounter Miscellaneous Notes * Telephone Encounter - Yefri Valiente, [facility] - 07/23/2024 12:45 PM ESTSigned Prescriptions: Disp Refills Isosorbide Mononitrate ER 30 MG Oral Table*100 Ta*1 Sig: TAKE ONE TABLET BY MOUTH EVERY DAY IN THE MORNINGAuthorizing Provider: CHRISTIANO HARKINS III User: YEFRI MARIANO documented in this encounter Plan of Treatment Upcoming Encounters Date Type Department Care Team (Late st Contact Info) Description 07/27/2024 7:15 AM EST Laboratory Lab Mobile Phlebotomy [facility] [address] [facility] [place] [address] [facility], [facility] Mobile Home Draw [address] [facility] [place] [address] 07/28/2024 6:00 AM EST Anticoagulation Centralized Clinical [facility]acy Services, [address] [place] [address] [place] [address] 08/18/2024 3:00 PM EST [facility] [address] [place] [address] Alma Rosa Clemons PA-C [address] [place] [address] Health Maintenance Due Date Last Done Comments [...] Additional history exists CKD PHOS USE SMARTSET 61829 10/20/2024 05/0 11/2023, 03/02/2022, 07/04/2021, Additional history exists HbA1c 11/02/2024 05/05/2024, 05/0 11/2023, 11/27/2022, Additional history exists DTap/Tdap Vaccines (2 - Td or Tdap) 02/01/2025 02/01/2015, 11/20/2007, 09/21/1998 CKD HGB USE SMARTSET 35864 05/29/202505/29, 08/27/2023, 08/27/2023, Additional history exists Pneumococcal Vaccine: 50+ Years Completed 08/04/2014, 12/29/2009 Zoster Vaccines Completed 11/14/2018, 10/15, 05/30/2018, Additional history exists VITAMIN D LEVEL ONCE IN A LIFETIME-USE SMARTSET# 50010 Completed 07/04/2021, 09/12/2020, 01/11/2020, Additional history exists [...] kidney disease, unspecified CKD stage, unspecified whether ferry terminal agent insulin use (HCC) Open-angle glaucoma, unspecified glaucoma stage, unspecified laterality, unspecified open-angle glaucoma type Atherosclerosis of confed[place] coos coronary artery without angina pectoris, unspecified whether [place] or transplanted heart Hyperparathyroidism, secondary renal (HCC) [...] depressive disorder, recurrent episode, mild Atherosclerosis of confederated coos coronary artery of confed[place] coos heart without angina pectoris Hyperparathyroidism, secondary renal (HCC) Secondary hyperparathyroidism (of renal origin) Age-related osteoporosis without current pathological fracture Senile osteoporosis Lymphedema Other lymphedema CHOUDHARY (dyspnea on exertion) Other dyspnea and respiratory abnormality documented in this encounter Advance Directives * [...] and were consensually agreed upon. Care Teams Seed Laboratory Technician Relationship Specialty Start Date End Date Christiano Harkins III, MD [address] [place] [address] PCP - General 01/30/1996 documented as of this encounter
[2024-10-06] MEDS ORDERED: GLUCAGON FOR INJ 1 MG VIAL SQ PRN (00:43)
[2024-10-06] MEDS ORDERED: DEXTROSE 50% 50 ML SYRINGE IV PRN (00:43)
[2024-10-06] MEDS ORDERED: GLUCOSE 40% GEL 15 GM TUBE PO PRN (00:43)
[2024-10-06] MEDS: PIPERACILLIN/TAZOBACTAM 4.5 GM/100 ML BAG IV SCH (02:44)
[2024-10-06] MEDS: INSULIN ASPART PER UNIT CHARGE SC SCH (02:45)
--- OUTSIDE RECORDS SUMMARY | 2024-10-06 02:52 | External Medical Summary | Summary of Care ---
Author Name Unknown Organization [facility] Address [address] [facility] [place] [address] Phone [phone] Care Team Providers Care Education Associate Name Role Phone Nhung LOPEZ MD, Steve Langston Primary Care Provider [phone] Reason for Visit * Reason Onset Date Comments [facility]: Acute 10/05/2024 Encounter Details Date Type Department Care Team ([facility] st Contact Info) Description 10/05/2024 Telephone [facility], [place] [address] [place] [address] [place] [address] Nerissa Soto, IMER [address] [facility] [place] [address] [facility]: Acute Allergies Active Allergy Reactions Criticality Noted Date Comments Adhesive Tape 07/05/2022 Doxycycline Nausea/vomiting 11/03/2010 Metoclopramide Hcl Neuro complications (Please comment) 12/07/2010 Developed worsening tremor and lip smacking. Naproxen 01/23/2012 Can not tolerate-gets very emotional and depressed documented as of this encounter (statuses as of 10/05/2024) Medications ASPIRIN 81 MG PO TABS Take [...] Information Patient not taking.Reported on 05/29/2024 Biotin 49439 MCG Oral Tablet Take 1 Tablet by [...] provider. 1 Each 05/26/20 23 Active Depend Nhg-Dopu-Gfulo-M Use as directed. 30 Each 11 07/03/19 [...] 5 8:54 AM EDT 10/01/19 25 Active Hospital, Clinic, or Other Facility Administered Medication Ordered Dose Route Frequency Start Date End Date Status cefTRIAXone (Rocephin) inj 1 gIndications:UTI symptoms 1 g IM ONCE 10/05/2024 10/07/19 Active documented as of this encounter (statuses as of 10/05/2024) Active Problems Problem Noted Date Diagnosed Date [...] 05/26/2023 DM peripheral angiopathy 05/26/2023 Atherosclerosis of king salmon co ronary artery without angina pectoris 05/26/2023 [...] in the Comments) Remote Patient Monitoring Vendor: Painting With A Twist Device(s): Connected Scale Self - Management Plan [...] SGLT2 Inhibitor: none Remote Patient Monitoring Vendor: Painting With A Twist Device(s): Connected Scale Self - Management Plan [...] SGLT2 Inhibitor: none Remote Patient Monitoring Vendor: Painting With A Twist Device(s): Connected Scale Self - Management Plan [...] 12/22/13 Steve Hooker III, MD [facility] [place] Facet arthropathy, lumbar 10/07/2013 Type 2 diabetes mellitus wit h hemoglobin A1c goal of less than 8.0% 07/15/2013 Overview (10/13/2015): ICD-10 update of inactive term History of tobacco use 02/18/2013 Hearing loss 02/18/2013 DYSLIPIDEMIA, GOAL LDL BELOW 70 05/30/2009 Overview (05/30/2009): Per Lipid Taxonomy. 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 When reviewing chart however 1 of my concerns could be that confusion could be from not taking or stopping abruptly some of her psychiatric medications. The fact that she is on Wellbutrin SR twice a day, a fairly large dose of trazodone at bedtime, opiates, as well as an SNRI alongside an antiseizure medication can lead to increased confusion when stopping abruptly. Will place order for urine andagree with Leonie's visit Orders: Plan Urinalysis, Reflex to Culture (Not for Neutropenic Patients) To Do: Please see below for follow up items to be completed and correspondence: MILAGROS to Rhea's Care Team Agree with advice given and plan of care. No further action needed. Routed to sender as an FYI thatmessage was addressed. Kevin Anders DO Remote Medical Command - [facility] / [facility] 10/05/2024 Scheduled appointments in the next 60 days: Future Appointments-next 60 days Date/Time Provider Specialty Dept Phone 10/06/2024 9:00 AM [facility], Nurse [facility] [phone] 10/12/2024 7:05 AM [facility] Mobile Home Draw Laboratory Processing [phone] 10/13/2024 6:00 AM [facility] [phone] 11/11/2024 9:[address] RN [facility] [phone] The above documentation was completed using the voice recognition dictation program [employer] Direct.As such, there may be misspellings, word substitutions, or other variations that should not change the essence of the clinical content of this encounter note. If there are questions, concerns or needfor further clarification, please contact me. Thank you. 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 HPI: Rhea Diaz is a 89 year old female whose Occupational therapist is calling [facility] to report that he found patient this morning with increased confusion, increased swelling to BLE's, wrappings to ble's were removed by her over the weekend, has not taken her medications fora few days as he found medications in her room in cups not taken, was incontinent and saturated with urine upon his arrival and did a urine strip that tested positive for a UTI. 110/70-66, 96% on RA,T-97 Nursing Assessment: Patient's chief complaint for this call: Urinary symptoms Pain Denies pain Baseline Assessment Able to performing ADLs at baseline (walking, daily tasks, etc.): Yes Chief Complaint is related to a chronic condition: Unknown Patient prescribed oxygen? 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 ERROL Liu Registered Nurse Navigator Triage [facility] documented in this encounter Plan of Treatment Upcoming Encounters Date Type Department Care Team (Late st Contact Info) Description 10/06/2024 9:00 AM EDT Scheduled Telephone [facility] [address] [place] [address] [facility], Nurse [address] [place] [address] 10/12/2024 7:05 AM EDT Laboratory Lab Mobile Phlebotomy [address] [place] [address] [facility] Mobile Home Draw [address] [place] [address] [place] [address] 10/13/2024 6:00 AM EDT Anticoagulation [facility], Alfred Guevara [address] [place] [address] [place] [address] [place] [address] 11/11/2024 9:30 AM EDT [facility] [address] [place] [address], IMER [address] [place] [address] Scheduled Orders Name Type Priority Associated Diagnoses Orde r Schedule URINALYSIS, REFLEX TO CULTURE (NOT FOR NEUTROPENIC PATIENTS) Lab Routine UTI symptoms Expected: 10/05/2024, Expires: 10/05/2025 CBC WITH WBC DIFFERENTIAL Lab Routine UTI symptoms Expected: 10/05/2024 (Approximate), Expires: 10/05/2025 COMPREHENSIVE METABOLIC PANEL Lab Routine UTI symptoms Expected: 10/05/2024 (Approximate), Expires: 10/05/2025 URINALYSIS, REFLEX TO CULTURE (NOT FOR NEUTROPENIC PATIENTS) Lab Routine UTI symptoms Expected: 10/05/2024, Expires: 10/05/2025 LEVETIRACETAM LEVEL Lab Routine UTI symptoms Expected: 10/05/2024, Expires: 10/05/2025 Health Maintenance Due Date Last Done Comments [...] 02/01/2015, 11/20/2007, 09/21/1998 CKD HGB USE SMARTSET 41670 05/29/202505/29, 08/27/2023, 08/27/2023, Additional history exists Albumin/Creatinine Ratio 07/29/2025 025, 07/27/2021, 01/15/2020, Additional history exists CKD PHOS USE SMARTSET 14747 07/29/202507/18, 10/21/2023, 03/02/2022, Additional history exists Pneumococcal Vaccine: 50+ Years Completed 08/04/2014, 12/29/2009 Zoster Vaccines Completed 11/14/2018, 10/15, 05/30/2018, Additional history exists VITAMIN D LEVEL ONCE IN A LIFETIME-USE SMARTSET# 25832 Completed 07/04/2021, 09/12/2020, 01/11/2020, Additional history exists [...] this encounter Medical Devices Implanted Type Area Decision Support Analyst Device Identifier Shelf Expiration Date Model / Serial / Lot Dahlen Xt Mri-11/16/2019 Implanted: 020 by Unique Hoko DO (Quantity not on file) MEDTRONIC : CARDIAC SURGERY [id number] / [id number] / Description:[email or web address] df AJR 09/30/24 1.5 OR [...] file) [employer] : CARDIAC SURGERY 5076-45 / [id number] / Description:[email or web address]/content/[email or web address] df AJR 09/30/24 1.5 OR [...] file) [employer] : CARDIAC SURGERY 5076-52 / [id number] / Description:[email or web address]://[email or web address]/content/[email or web address] df AJR 09/30/24 1.5 OR [...] without long-term current use of insulin ([facility]) DM peripheral angiopathy ([facility]) Type II or unspecified type [...] without status epilepticus, unspecified epilepsy type ([facility]) Type 2 diabetes mellitus with diabetic chronic kidney disease, unspecified CKD stage, unspecified whether terminal operations supervisor insulin use ([facility]) Open-angle glaucoma, unspecified glaucoma stage, unspecified laterality, unspecified open-angle glaucoma type Atherosclerosis of king salmon coronary artery without angina pectoris, unspecified whether king salmon or transplanted heart Hyperparathyroidism, secondary renal (HCC) Secondary hyperparathyroidism (of renal origin) Hemiplegia, 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[facility]) Hemiplegia affecting unspecified side, late effect of cerebrovascular disease Urinary incontinence, unspecified type Hypertensive heart and kidney 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 and stage 3b chronic kidney disease ([facility])- Primary Hemiplegia, 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[facility]) Hemiplegia affecting unspecified side, late effect of cerebrovascular disease 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 behavioral disturbance, psychotic disturbance, mood disturbance, or anxiety, unspecified dementia type ([facility]) Paroxysmal atrial fibrillation (HCC) Atrial fibrillation 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 status epilepticus, unspecified epilepsy type ([facility]) Type 2 diabetes mellitus with stage 3b chronic kidney disease, without long-term current use of insulin (HCC) Open-angle glaucoma, unspecified glaucoma stage, unspecified laterality, unspecified open-angle glaucoma type Major depressive disorder, recurrent episode, mild (HCC) Major depressive disorder, recurrent episode, mild Atherosclerosis of king salmon coronary artery of king salmon heart without angina pectoris Hyperparathyroidism, secondary renal (HCC) Secondary hyperparathyroidism (of renal origin) Age-related osteoporosis without current pathological fracture Senile osteoporosis Lymphedema Other lymphedema Fall in home, initial encounter- Primary Traumatic ecchymosis of right hip, initial encounter 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 behavioral disturbance, psychotic disturbance, mood disturbance, or anxiety, unspecified dementia type ([facility]) Hypertensive heart and kidney 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 and stage 3b chronic kidney disease ([facility]) Advanced care planning/counseling discussion Other specified counseling UTI symptoms- Primary Other symptoms involving urinary system documented in this encounter Advance Directives * [...] and were consensually agreed upon. Care Teams Education Associate Relationship Specialty Start Date End Date Steve Hooker III, MD [address] [place] [address] PCP - General 01/30/1996 documented as of this encounter
--- OUTSIDE RECORDS SUMMARY | 2024-10-06 02:52 | External Medical Summary | Summary of Care ---
Author Name Unknown Organization [facility] Address [address] [place] [facility] [place] [address] Phone [phone] Care Team Providers Care Business Insurance Agent Name Role Phone Nhung LOPEZ MD, Steve Langston Primary Care Provider [phone] Reason for Visit * Reason Onset Date Comments [facility]: Acute 10/05/2024 Encounter Details Date Type Department Care Team ([facility] st Contact Info) Description 10/05/2024 Telephone [facility], [place] [address] [place] [address] [place] [address] Nerissa Soto, IMER [address] [facility] [place] [address] [facility]: [...] A1c goal of less than 8.0% ([facility]) Use to test once daily DX E11.9 100 Each 3 07/20/19 21 Active Additional Information Patient not taking.Reported on 05/29/2024 Biotin 62122 MCG Oral Tablet Take 1 Tablet by [...] provider. 1 Each 05/26/20 23 Active Depend Kgx-Wicl-Zjvio-M Use as directed. 30 Each 11 07/03/19 [...] 05/26/2023 DM peripheral angiopathy 05/26/2023 Atherosclerosis of swinomish co ronary artery without angina pectoris 05/26/2023 [...] in the Comments) Remote Patient Monitoring Vendor: Krikle Device(s): Connected Scale Self - Management Plan [...] SGLT2 Inhibitor: none Remote Patient Monitoring Vendor: Krikle Device(s): Connected Scale Self - Management Plan [...] SGLT2 Inhibitor: none Remote Patient Monitoring Vendor: Krikle Device(s): Connected Scale Self - Management Plan [...] 12/22/13 Steve Hooker III, MD [facility] [place] Facet arthropathy, lumbar 10/07/2013 Type 2 diabetes [...] mRNA, LNP-s, No Pre serve, 2-Dose Series ([place]) 06/01/2021,10/15/2020,09/24/2020 Covid-19, Mrna, Lnp-s, Pf, B ivalent, [...] 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 Remote Medical Command Note Recommendations: Agree with [...] DO Remote Medical Command - [facility] / [facility] 10/05/2024 Scheduled appointments in the next 60 days: Future Appointments-next 60 days Date/Time Provider Specialty Dept Phone 10/06/2024 9:00 AM [facility], Nurse [facility] [phone] 10/12/2024 7:05 AM [facility] Mobile Home Draw Laboratory Processing [phone] 10/13/2024 6:00 AM [facility] [phone] 11/11/2024 9:[address] RN [facility] [phone] The above documentation was completed using the voice recognition dictation program [employer] Direct.As such, there may be misspellings, word substitutions, or other variations that should not change the essence of the clinical content of this encounter note. If there are questions, concerns or needfor further clarification, please contact me. Thank you. 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 ERROL Liu Registered Nurse Navigator Triage [facility] documented in this encounter Plan of Treatment Upcoming Encounters Date Type Department Care Team (Late st Contact Info) Description 10/06/2024 9:00 AM EDT Scheduled Telephone [facility] [address] [place] [address] [facility], Nurse [address] [place] [address] 10/12/2024 7:05 AM EDT Laboratory Lab Mobile Phlebotomy [address] [place] [address] [facility] Mobile Home Draw [address] [place] [address] [place] [address] 10/13/2024 6:00 AM EDT Anticoagulation [facility] Services, Alfred Guevara [address] [place] [address] [place] [address] [place] [address] 11/11/2024 9:30 AM EDT [facility] [address] [place] [address], IMER [address] [place] [address] Scheduled Orders Name Type Priority Associated Diagnoses [...] 02/01/2015, 11/20/2007, 09/21/1998 CKD HGB USE SMARTSET 08754 05/29/202505/29, 08/27/2023, 08/27/2023, Additional history exists Albumin/Creatinine Ratio 07/29/2025 025, 07/27/2021, 01/15/2020, Additional history exists CKD PHOS USE SMARTSET 84069 07/29/202507/18, 10/21/2023, 03/02/2022, Additional history exists Pneumococcal Vaccine: 50+ Years Completed 08/04/2014, 12/29/2009 Zoster Vaccines Completed 11/14/2018, 10/15, 05/30/2018, Additional history exists VITAMIN D LEVEL ONCE IN A LIFETIME-USE SMARTSET# 20260 Completed 07/04/2021, 09/12/2020, 01/11/2020, Additional history exists [...] this encounter Medical Devices Implanted Type Area Raspberry Checker Device Identifier Shelf Expiration Date Model / Serial / Lot Alta Xt Mri-11/16/2019 Implanted: 020 by Unique Hook DO (Quantity not on file) [employer] : CARDIAC SURGERY [id number] / [id number] / Description:[email or web address] df AJR 09/30/24 1.5 OR [...] file) [employer] : CARDIAC SURGERY 5076-45 / [id number] / Description:[email or web address]/content/[email or web address] df AJR 09/30/24 1.5 OR [...] file) [employer] : CARDIAC SURGERY 5076-52 / [id number] / Description:[email or web address]/content/[email or web address] df AJR 09/30/24 1.5 OR [...] without long-term current use of insulin ([facility]) DM peripheral angiopathy ([facility]) Type II or unspecified type diabetes [...] without status epilepticus, unspecified epilepsy type ([facility]) Type 2 diabetes mellitus with diabetic chronic kidney disease, unspecified CKD stage, unspecified whether long chain quiller tender insulin use ([facility]) Open-angle glaucoma, unspecified glaucoma stage, unspecified laterality, unspecified open-angle glaucoma type Atherosclerosis of swinomish coronary artery without angina pectoris, unspecified whether swinomish or transplanted heart Hyperparathyroidism, secondary renal (HCC) Secondary hyperparathyroidism (of renal origin) Hemiplegia, 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[facility]) Hemiplegia affecting unspecified side, late effect of cerebrovascular disease Urinary incontinence, unspecified type Hypertensive heart and kidney 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 and stage 3b chronic kidney disease ([facility])- Primary Hemiplegia, 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[facility]) Hemiplegia affecting unspecified side, late effect of cerebrovascular disease 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 behavioral disturbance, psychotic disturbance, mood disturbance, or anxiety, unspecified dementia type ([facility]) Paroxysmal atrial fibrillation (HCC) Atrial fibrillation 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 status epilepticus, unspecified epilepsy type ([facility]) Type 2 diabetes mellitus with stage 3b chronic kidney disease, without long-term current use of insulin (HCC) Open-angle glaucoma, unspecified glaucoma stage, unspecified laterality, unspecified open-angle glaucoma type Major depressive disorder, recurrent episode, mild (HCC) Major depressive disorder, recurrent episode, mild Atherosclerosis of swinomish coronary artery of swinomish heart without angina pectoris Hyperparathyroidism, secondary renal (HCC) Secondary hyperparathyroidism (of renal origin) Age-related osteoporosis without current pathological fracture Senile osteoporosis Lymphedema Other lymphedema Fall in home, initial encounter- Primary Traumatic ecchymosis of right hip, initial encounter 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 behavioral disturbance, psychotic disturbance, mood disturbance, or anxiety, unspecified dementia type ([facility]) Hypertensive heart and kidney 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 and stage 3b chronic kidney disease ([facility]) Advanced care planning/counseling discussion Other specified [...] and were consensually agreed upon. Care Teams Business Insurance Agent Relationship Specialty Start Date End Date Steve Hooker III, MD [address] [facility] [place] [address] PCP - General 01/30/1996 documented as of this encounter
[2024-10-06 06:14] LABS: BUN Creatinine Ratio 16.8 (10-20); Calcium 9.5 mg/dl (8.6-10.3); Creatinine Clr Calc Pharmacy 37.8 ml/min; Potassium 3.9 mmol/L (3.5-5.1)
[2024-10-06 06:25] LABS: INR 1.5 (0.9-1.1); Prothrombin Time 15.5 Seconds (9.0-12.0)
[2024-10-06 06:30] LABS: Basophils # (auto) 0.03 K/uL (0.00-0.20); Basophils % (auto) 0.5 %; Eosinophils # (auto) 0.33 K/uL (0.00-0.50); Hematocrit (blood only) 41.5 % (37.0-47.0); Hemoglobin 13.7 g/dl (12.0-16.0); Immature Granulocytes # (auto) 0.01 K/uL (0.01-0.20); Immature Granulocytes % (auto) 0.2 %; Lymphocytes # (auto) 2.13 K/uL (1.20-3.40); Lymphocytes % (auto) 32.3 %; Mean Corpuscular Hemoglobin 29.7 pg (25.0-34.0); Mean Platelet Volume 10.8 fL (9.4-12.4); Monocytes # (auto) 0.45 K/uL (0.11-0.59); Monocytes % (auto) 6.8 %; Neutrophils # (auto) 3.65 K/uL (1.40-6.50); Neutrophils % (auto) 55.2 %; Platelet Count 169 K/uL (130-400); RDW Coefficient of Variation 13.9 % (11.5-14.5); RDW Standard Deviation 45.6 fL (36.4-46.3); Red Blood Count 4.61 M/uL (4.20-5.40)
[2024-10-06] MEDS: PANTOprazole 40 MG TAB PO SCH (06:38)
[2024-10-06] MEDS: ALBUMIN 25% 25 GM/100 ML VIAL IV ONE (08:20)
[2024-10-06] MEDS: ACETAMINOPHEN 325 MG TAB PO PRN (08:25)
[2024-10-06] MEDS: CHOLECALCIFEROL 25 MCG (1000 UNITS) TAB PO SCH (08:25)
[2024-10-06] MEDS: METOPROLOL SUCC 25MG EXT REL TAB PO SCH (08:27)
[2024-10-06] MEDS: ISOSORBIDE MONO EXTENDED REL 30 MG TABCR PO SCH (08:27)
[2024-10-06] MEDS: DULoxetine HCL 60 MG CAP PO SCH (08:27)
--- NOTE | 2024-10-06 10:14 | Electrocardiogram Report ---
Test Reason : Blood Pressure : */* mmHG Vent. Rate : 61 BPM Atrial Rate : 74 BPM P-R Int : * ms QRS Dur : 162 ms QT Int : 488 ms P-R-T Axes : * -88 61 degrees QTcB Int : 491 ms Ventricular-paced rhythm Abnormal ECG When compared with ECG of 26-Jun-2023 18:00, Vent. rate has decreased by 7 bpm Confirmed by Huey Gibbs ([id number]) on 10/06/2024 10:13:35 AM Referred By: REFERRED SELF Confirmed By: Huey Gibbs
--- NOTE | 2024-10-06 13:50 | Hospitalist Progress Note ---
Date of Service October 06, 2024 Assessment & Plan (1) Encephalopathy: Plan: per previous hospitalist notes with addendum: Encephalopathy: Plan: Delirium on dementia Multifactorial complicated UTI/mild diverticulitis, no sepsis for now Uncontrolled hypertension ARF on CKD Narcotic/neuropsychotropic medications contributory 10/06 oriented x 2 today Answering most questions appropriately Follow-up urine and blood cultures Continue with Zosyn Creatinine improved with gentle IV fluids chronic diastolic heart failure (EF 60 to 65%, TTE 2019) hx CAD status post angioplasty SSS status post PPM on Coumadin, INR subtherapeutic valvular heart disease (mild AR/MR/TR) hx CVA hyperlipidemia, on statin Rx COPD, lung status at baseline DM 2 diet-controlled, well-controlled as of last hemoglobin A1c of 5.6 2022 hypothyroidism, euthyroid as of recent TSH last June, seizure disorder, stable on Keppra Need for placement past tobacco abuse Social service re: discharge planning, patient family requesting for placement. DVT prophylaxis. Coumadin INR goal between 2 and 3 DNR as per son, Mr. Daniel Diaz. Admission and Anticipated Discharge Date Admission Date: October 05, 2024 Subjective ff up for AMS, UTI, Diverticulitis, etc seen resting in chair, comfortable oriented x 2 states she feels ok has some generalized abdominal discomfort No nausea or vomiting no chest pain, dyspnea, palpitations, dizziness no other new symptoms Review of Systems Review of Systems: all noted and negative except for above Physical Exam Physical Exam: General- oriented x 2, not in distress, speaks in sentences with no effort or accessory muscle use Eyes- anicteric Neck- no JVD Lungs- clear breath sounds bilaterally, no rales/wheezes Heart- normal rate, regular rhythm; no murmurs Abdomen- normal bowel sounds, nondistended, soft, nontender Extremities- no pretibial edema, no calf tenderness Neuro- alert, oriented x 2; no gross focal neurologic deficits Skin- warm & dry Results & Data Results & Data Vital Signs (Past 12 Hours) Vital Signs Temp Pulse Pulse Resp BP BP Pulse Ox 10/06/24 11:41 36.7 C 81 17 130/78 92 10/06/24 05:41 60 10/06/24 02:30 10/06/24 02:30 36.8 C 62 20 164/115 H 94 10/06/24 02:00 62 O2 Del Method 10/06/24 11:41 Room Air 10/06/24 05:41 10/06/24 02:30 Room Air 10/06/24 02:30 Room Air 10/06/24 02:00 all noted and reviewed including below
[2024-10-06] MEDS: WARFARIN SOD 5 MG TAB PO SCH (16:21)
[2024-10-06] MEDS: ADVANCED PROBIOTIC 625 MG CAPSULE PO SCH (20:52)
[2024-10-06] MEDS: CEROVITE ADV FORMULA TAB PO SCH (20:52)
[2024-10-06] MEDS: ATORVASTATIN 40 MG TAB PO SCH (20:52)
[2024-10-06] MEDS: CETIRIZINE HCL 10 MG TABLET PO SCH (20:53)
[2024-10-07] MEDS: CARBOHYDRATES FOR HYPOGLYCEMIA PO PRN (08:05)
[2024-10-07] MEDS: ASPIRIN 81 MG ECTAB PO SCH (09:08)
[2024-10-07] MEDS: GLUCOSE 10 TAB/TUBE PO PRN (09:30)
[2024-10-07 10:29] LABS: Basophils # (auto) 0.04 K/uL (0.00-0.20); Basophils % (auto) 0.6 %; Eosinophils # (auto) 0.42 K/uL (0.00-0.50); Eosinophils % (auto) 6.2 %; Hematocrit (blood only) 43.3 % (37.0-47.0); Hemoglobin 14.3 g/dl (12.0-16.0); Immature Granulocytes # (auto) 0.01 K/uL (0.01-0.20); Immature Granulocytes % (auto) 0.1 %; Lymphocytes # (auto) 1.55 K/uL (1.20-3.40); Lymphocytes % (auto) 22.7 %; Mean Corpuscular Hemoglobin 29.9 pg (25.0-34.0); Mean Corpuscular Volume 90.6 fL (80.0-100.0); Mean Platelet Volume 10.8 fL (9.4-12.4); Monocytes # (auto) 0.46 K/uL (0.11-0.59); Monocytes % (auto) 6.7 %; Neutrophils # (auto) 4.34 K/uL (1.40-6.50); Neutrophils % (auto) 63.7 %; Platelet Count 202 K/uL (130-400); RDW Standard Deviation 46.1 fL (36.4-46.3); Red Blood Count 4.78 M/uL (4.20-5.40); White Blood Count 6.82 K/ul (4.8-10.8)
[2024-10-07 10:30] LABS: BUN Creatinine Ratio 12.6 (10-20); Calcium 10.2 mg/dl (8.6-10.3); Creatinine Clr Calc Pharmacy 25.7 ml/min
[2024-10-07 10:41] LABS: INR 1.7 (0.9-1.1); Prothrombin Time 17.2 Seconds (9.0-12.0)
--- NOTE | 2024-10-07 13:52 | Hospitalist Progress Note ---
Date of Service October 07, 2024 Assessment & Plan (1) Encephalopathy: Plan: per previous hospitalist notes with addendum: Metabolic Encephalopathy Moderate Dementia Complicated UTI, resolved Dvierticulitis -weight appears to be around baseline although much down from 6 months ago -cultures negative so far -asymptomatic mild diverticulitis, has received appropriate inpatient/outpatient course of abx for UA Plan: -oriented x 2 today -Answering most questions appropriately -medically ready for discharge home -stop zosyn -awaiting placement chronic diastolic heart failure (EF 60 to 65%, TTE 2019) hx CAD status post angioplasty SSS status post PPM on Coumadin, INR subtherapeutic valvular heart disease (mild AR/MR/TR) hx CVA hyperlipidemia, on statin Rx COPD, lung status at baseline DM 2 diet-controlled, well-controlled as of last hemoglobin A1c of 5.6 2022 hypothyroidism, euthyroid as of recent TSH last June, seizure disorder, stable on Keppra I spent a total of 45 minutes in direct patient care, including [id number] time with the patient and/or family, reviewing medical records, ordering and reviewing diagnostic tests, and coordinating care with other healthcare providers. This time includes: history taking, physical examination, medical decision making, counseling, ECG interpretation, imaging interpretation, lab interpretation, orders, and education, excluding time spent in the performance of separately billed services. Admission and Anticipated Discharge Date Admission Date: October 05, 2024 Subjective Patient seen and examined at bedside. Patient doing okay today, alert and oriented to self and location but not place or time. Feels well overall. Review of Systems Review of Systems: CONSTITUTIONAL: Patient denies fevers, chills, sweats and weight changes. EYES: Patient denies any visual symptoms. EARS, NOSE, AND THROAT: No difficulties with hearing. No symptoms of rhinitis or sore throat. CARDIOVASCULAR: Patient denies chest pains, palpitations, orthopnea and paroxysmal nocturnal dyspnea. RESPIRATORY: No dyspnea on exertion, no wheezing or cough. GI: No nausea, vomiting, diarrhea, constipation, abdominal pain, hematochezia or melena. : No urinary hesitancy or dribbling. No nocturia or urinary frequency. No abnormal urethral discharge. MUSCULOSKELETAL: No myalgias or arthralgias. NEUROLOGIC: No chronic headaches, no seizures. Patient denies numbness, tingling or weakness. PSYCHIATRIC: Patient denies problems with mood disturbance. No problems with anxiety. ENDOCRINE: No excessive urination or excessive thirst. DERMATOLOGIC: Patient denies any rashes or skin changes. Physical Exam Physical Exam: Gen: A&O 2 NAD HEENT: NCAT, EOMI, not icteric. External ears normal. No rhinorrhea. Moist mucous membranes. Neck: Supple, full range of motion, no observable masses, No meningeal sign. Lungs: No Respiratory distress. CV: RRR, no edema. Abdomen: Soft, nondistended, No rebound tenderness. MSK: No joint swelling, no redness. Skin: No rashes, petechiae, lesions. Normal color per patient. Neuro: Normal Gait, Grossly intact. Psych: Appropriate for situation. Results & Data Results & Data Vital Signs (Past 12 Hours) Vital Signs Temp Pulse Pulse Resp BP Pulse Ox O2 Del Method 10/07/24 12:54 Room Air 10/07/24 11:08 36.3 C L 60 20 135/80 97 Room Air 10/07/24 07:34 36.3 C L 66 20 143/86 H 100 Room Air 10/07/24 06:02 60 10/07/24 03:15 36.3 C L 71 16 147/80 H 94 Room Air Laboratory Results -personally reviewed, creatinine continues to downtrend, Hgb at baseline Medications Administered Acetaminophen (Acetaminophen 325 Mg Tab) 650 mg PO QID PRN PRN Reason: pain/fever Stop: 11/04/24 21:16 Last Admin: 10/07/24 09:18 Dose: 650 mg Documented By: Admin: 10/06/24 08:25 Dose: 650 mg Documented By: CHARBEL Aspirin (Aspirin 81 Mg Ectab) 81 mg PO MoWeFr@0900 [facility] Stop: 11/06/24 08:59 Last Admin: 10/07/24 09:08 Dose: 81 mg Documented By: CHARBEL Atorvastatin Calcium (Atorvastatin 40 Mg Tab) 40 mg PO HS [facility] Stop: 11/05/24 20:59 Last Admin: 10/06/24 20:52 Dose: 40 mg Documented By: JEAN CLAUDE Duloxetine HCl (Duloxetine Hcl 60 Mg Cap) [facility] [place] Stop: 11/05/24 08:59 Last Admin: 10/07/24 09:08 Dose: 60 mg Documented By: Admin: 10/06/24 08:27 Dose: 60 mg Documented By: CHARBEL Glucose (Glucose 10 Tab/Tube) 4 - 8 tab PO UD PRN; Protocol PRN Reason: Hypoglycemia Protocol Stop: 11/05/24 00:42 Last Admin: 10/07/24 09:30 Dose: 4 tab Documented By: CHARBEL Piperacillin Sod/Tazobactam Sod (Zosyn) 4.5 gm in 100 mls @ 25 mls/hr IV Q8H [facility]; Protocol Stop: 10/16/24 01:59 Last Admin: 10/07/24 09:09 Dose: 25 mls/hr Documented By: Infusion: 10/07/24 06:40 Dose: Infused Documented By: JEAN CLAUDE Admin: 10/07/24 02:12 Dose: 25 mls/hr Documented By: JEAN CLAUDE Infusion: 10/06/24 23:05 Dose: Infused Documented By: JEAN CLAUDE Admin: 10/06/24 18:37 Dose: 25 mls/hr Documented By: Infusion: 10/06/24 14:20 Dose: Infused Documented By: Admin: 10/06/24 10:17 Dose: 25 mls/hr Documented By: Infusion: 10/06/24 07:34 Dose: Infused Documented By: Admin: 10/06/24 02:44 Dose: 25 mls/hr Documented By: DASHAWN Insulin Aspart (Insulin Aspart Per Unit Charge) 0 units SC ACHS [facility] Stop: 11/05/24 00:42 Last Admin: 10/07/24 12:39 Dose: Not Given Documented By: Admin: 10/07/24 08:22 Dose: Not Given Documented By: Admin: 10/06/24 20:49 Dose: Not Given Documented By: JEAN CLAUDE Admin: 10/06/24 18:33 Dose: Not Given Documented By: Admin: 10/06/24 13:00 Dose: Not Given Documented By: Admin: 10/06/24 09:59 Dose: Not Given Documented By: Admin: 10/06/24 02:45 Dose: Not Given Documented By: REGIK Isosorbide Mononitrate (Isosorbide [place] Extended Rel 30 Mg Tabcr) 30 mg PO QAM [facility] Stop: 11/05/24 08:59 Last Admin: 10/07/24 09:09 Dose: 30 mg Documented By: Admin: 10/06/24 08:27 Dose: 30 mg Documented By: CHARBEL Lactobacillus Acidophilus (Advanced Probiotic 625 Mg Capsule) 625 mg PO HS [facility] Stop: 11/05/24 20:59 Last Admin: 10/06/24 20:52 Dose: 625 mg Documented By: JEAN CLAUDE Levetiracetam (Levetiracetam 500 Mg Tab) 500 mg PO BID [facility] Stop: 11/04/24 21:29 Last Admin: 10/07/24 09:08 Dose: 500 mg Documented By: Admin: 10/06/24 20:52 Dose: 500 mg Documented By: JEAN CLAUDE Admin: 10/06/24 08:26 Dose: 500 mg Documented By: Admin: 10/05/24 23:30 Dose: 500 mg Documented By: TITUS Metoprolol Succinate (Metoprolol Succ 25mg Ext Rel Tab) 25 mg PO DAILY [facility] Stop: 11/05/24 08:59 Last Admin: 10/07/24 09:08 Dose: 25 mg Documented By: Admin: 10/06/24 08:27 Dose: 25 mg Documented By: CHARBEL Multivitamins/Minerals (Cerovite Adv Formula Tab) 1 tab PO HS [facility] Stop: 11/05/24 20:59 Last Admin: 10/06/24 20:52 Dose: 1 tab Documented By: JEAN CLAUDE Pantoprazole Sodium (Pantoprazole 40 Mg Tab) 40 mg PO DAILYBB [facility] Stop: 11/05/24 06:29 Last Admin: 10/07/24 06:42 Dose: 40 mg Documented By: JEAN CLAUDE Admin: 10/06/24 06:38 Dose: 40 mg Documented By: DASHAWN Vitamin D (Cholecalciferol 25 Mcg (1000 Units) Tab) 50 mcg PO DAILY [facility] Stop: 11/05/24 08:59 Last Admin: 10/07/24 09:08 Dose: 50 mcg Documented By: Admin: 10/06/24 08:25 Dose: 50 mcg Documented By: CHARBEL Warfarin Sodium (Warfarin Sod 5 Mg Tab) 5 mg PO DAILY@1600 [facility] Stop: 11/05/24 15:59 Last Admin: 10/06/24 16:21 Dose: 5 mg Documented By: CHARBEL
[2024-10-08] MEDS: LORazepam 0.5 MG TAB PO STA (06:54)
[2024-10-08 07:23] LABS: Hematocrit (blood only) 39.5 % (37.0-47.0); Hemoglobin 13.4 g/dl (12.0-16.0); Mean Corpuscular Hemoglobin 30.2 pg (25.0-34.0); Mean Corpuscular Hgb Conc 33.9 g/dL (32.0-36.0); Mean Platelet Volume 10.7 fL (9.4-12.4); Platelet Count 185 K/uL (130-400); RDW Standard Deviation 45.2 fL (36.4-46.3); Red Blood Count 4.44 M/uL (4.20-5.40); White Blood Count 7.04 K/ul (4.8-10.8)
[2024-10-08 07:43] LABS: BUN Creatinine Ratio 12.5 (10-20); Calcium 9.7 mg/dl (8.6-10.3); Creatinine Clr Calc Pharmacy 25.8 ml/min; Potassium 3.6 mmol/L (3.5-5.1)
[2024-10-08 16:04] LABS: INR 1.8 (0.9-1.1); Prothrombin Time 18.9 Seconds (9.0-12.0)
[2024-10-09] MEDS: MELATONIN 3 MG TAB PO PRN (01:45)
[2024-10-09] MEDS: hydrALAZINE HCL 20 MG/ML VIAL IV ONE (05:02)
[2024-10-09 06:53] LABS: Hematocrit (blood only) 37.2 % (37.0-47.0); Hemoglobin 12.5 g/dl (12.0-16.0); Mean Corpuscular Hemoglobin 29.6 pg (25.0-34.0); Mean Corpuscular Hgb Conc 33.6 g/dL (32.0-36.0); Mean Corpuscular Volume 88.2 fL (80.0-100.0); Mean Platelet Volume 10.5 fL (9.4-12.4); Platelet Count 180 K/uL (130-400); RDW Coefficient of Variation 14.2 % (11.5-14.5); RDW Standard Deviation 44.9 fL (36.4-46.3); Red Blood Count 4.22 M/uL (4.20-5.40); White Blood Count 8.53 K/ul (4.8-10.8)
[2024-10-09 07:20] LABS: BUN Creatinine Ratio 22.9 (10-20); Calcium 9.7 mg/dl (8.6-10.3); Creatinine Clr Calc Pharmacy 27.3 ml/min; Potassium 3.6 mmol/L (3.5-5.1)
[2024-10-09 07:31] VITALS: RESP 18; O2SAT 97
[2024-10-09 11:41] VITALS: TEMP 97.3
[2024-10-09 14:23] VITALS: BP 173/96; PULSE 65
--- NOTE | 2024-10-09 16:28 | Discharge Summary ---
Discharge Summary Date of Service October 09, 2024 Principal Dx & Hospital Course #1 = Principal Diagnosis (1) Encephalopathy: per previous hospitalist notes with addendum: Metabolic Encephalopathy Moderate Dementia Complicated UTI, resolved Dvierticulitis -weight appears to be around baseline although much down from 6 months ago -cultures negative so far -asymptomatic mild diverticulitis, has received appropriate inpatient/outpatient course of abx for UA Plan: -oriented x 2 today -Answering most questions appropriately -medically ready for discharge home -stop zosyn -awaiting placement chronic diastolic heart failure (EF 60 to 65%, TTE 2019) hx CAD status post angioplasty SSS status post PPM on Coumadin, INR subtherapeutic valvular heart disease (mild AR/MR/TR) hx CVA hyperlipidemia, on statin Rx COPD, lung status at baseline DM 2 diet-controlled, well-controlled as of last hemoglobin A1c of 5.6 2022 hypothyroidism, euthyroid as of recent TSH last June, seizure disorder, stable on Keppra Notes For Next Care Provider 89 yo female with pmhx Medical history significant for chronic diastolic heart failure (EF 60 to 65%, TTE 2019), CAD status post angioplasty, SSS status post PPM on Coumadin, valvular heart disease (mild AR/MR/TR), CVA, hypertension, hyperlipidemia, COPD, GERD, DM 2 diet-controlled, hypothyroidism, CRI (baseline creatinine 1.4-1.5), recurrent UTIs, PMR, seizure disorder, dementia as per records, anxiety/mood disorder, past tobacco abuse who presented for confusion. On medicine, given fluids and abx with improvement. Received 6 total day course of abx. On 10/09/2024 patient back to baseline and family wanted to take her home. To do: [ ] f/u with home healthcare, will need to consider terminal clerk care [ ] please consider weaning opioids, likely contributing to worsening memory/behavior Medication Changes From Visit -see below Admission HPI Per Admitting Provider History obtained from patient, family, and records. Limited history from patient secondary to confusion. Medical history significant for chronic diastolic heart failure (EF 60 to 65%, TTE 2019), CAD status post angioplasty, SSS status post PPM on Coumadin, valvular heart disease (mild AR/MR/TR), CVA, hypertension, hyperlipidemia, COPD, GERD, DM 2 diet-controlled, hypothyroidism, CRI (baseline creatinine 1.4-1.5), recurrent UTIs, PMR, seizure disorder, dementia as per records, anxiety/mood disorder, past tobacco abuse. Last confinement June 2023 for encephalopathy secondary to Enterococcus faecalis UTI. Patient with dysuria symptoms 3 weeks ago. Outpatient UA grew Enterococcus. Patient completed amoxicillin course. Patient noted to be increasingly confused over the last 2 days. Patient not eating well. Denies headache, chest pain, SOB. Achy abdominal pain. Patient brought to ER for evaluation. SBP 170s upon arrival at the ER. IV ceftriaxone administered at the ER. 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 External ears normal. No rhinorrhea. Moist mucous membranes. Neck: Supple, full range of motion, no observable masses, No meningeal sign. Lungs: No Respiratory distress. CV: RRR, no edema. Abdomen: Soft, nondistended, No rebound tenderness. MSK: No joint swelling, no redness. Skin: No rashes, petechiae, lesions. Normal color per patient. Neuro: Normal Gait, Grossly intact. Psych: Appropriate for situation. Updated Medication List Medication Instructions Recorded Confirmed Type aspirin 81 mg tablet,delayed 81 mg PO [id number] 08/20/19 10/05/24 History release atorvastatin 40 mg tablet 40 mg PO HS 08/20/19 10/05/24 History isosorbide mononitrate 30 mg 30 mg PO QAM 08/20/19 10/05/24 History tablet,extended release 24 hr magnesium oxide 400 mg PO QAM 08/20/19 10/05/24 History omeprazole 20 mg capsule,delayed 20 mg PO DAILYBB 08/20/19 10/05/24 History release potassium chloride 10 mEq 10 meq PO UD 08/20/19 10/05/24 History tablet,extended release(part/cryst) (Klor-Con M) acetaminophen 500 mg tablet 1,000 mg PO Q6H PRN Pain 06/20/21 10/05/24 History (Tylenol Extra Strength) levetiracetam 500 mg tablet 500 mg PO BID 06/20/21 10/05/24 History metoprolol succinate 25 mg 25 mg PO DAILY 06/20/21 10/05/24 History tablet,extended release 24 hr multivitamin-ferrous 1 tab PO HS 06/20/21 10/05/24 History fumarate-folic acid 18 mg-400 mcg tablet (Centrum) oxycodone-acetaminophen 10 mg-325 1 tab PO Q6H PRN Severe Pain 06/20/21 10/05/24 History mg tablet (Scale Score 7-10) trazodone 50 mg tablet 25 mg PO HS 06/20/21 10/05/24 History warfarin 4 mg tablet 4 - 6 mg PO DIRECTED 06/20/21 10/05/24 History duloxetine 60 mg capsule,delayed 60 mg PO QAM 06/28/22 10/05/24 History release cetirizine 10 mg tablet (Zyrtec) 10 mg PO HS 06/26/23 10/05/24 History cholecalciferol (vitamin D3) 50 50 mcg PO DAILY 06/26/23 10/05/24 History mcg (2,000 unit) capsule (Vitamin D3) polyethylene glycol 3350 17 17 g PO DAILY PRN Constipation 06/26/23 10/05/24 History gram/dose oral powder (Miralax) torsemide 20 mg tablet 20 mg PO BID 06/26/23 10/05/24 History bupropion HCl 100 mg tablet,12 hr 100 mg PO DAILY 10/05/24 10/05/24 History sustained-release triamcinolone acetonide 0.1 % 1 applic topical BID 10/05/24 10/05/24 History topical ointment Hospital Stay Data Consultations 10/05/24 19:39 ED Decision to Admit Stat Diagnostic Imagining Performed 10/05/24 18:12 CT head/brain wo con Stat 10/05/24 21:07 CT Abd and Pelvis [CT abd pelvis wo con] Stat Pending Results Patient Have Any Pending Studies at Discharge: No Discharge Instructions Given to Patient (Per Discharging Provider) 1. Please follow up with PCP. 2. Please take all medications as prescribed. Total Time Total Time Spent Total Time Spent (In Minutes): I spent a total of 35 minutes in direct patient care, including [id number] time with the patient and/or family, reviewing medical records, ordering and reviewing diagnostic tests, and coordinating care with other healthcare providers. This time includes: history taking, physical examination, medical decision making, counseling, ECG interpretation, imaging interpretation, lab interpretation, orders, and education, excluding time spent in the performance of separately billed services.
== END 2024-10-09 17:29 | disposition home health service (06) | DRG 689 ==
LOC: ED 17:01 → EDINP 20:09 → SUATTDRO 20:09 → 2N 10-06 01:14
DX: Z88.1 Allergy status to other antibiotic agents; F03.B0 Unspecified dementia, moderate, without behavioral disturbance, psychotic disturbance, mood disturbance, and anxiety; N39.0 Urinary tract infection, site not specified; I25.10 Atherosclerotic heart disease of native coronary artery without angina pectoris; E11.22 Type 2 diabetes mellitus with diabetic chronic kidney disease; Z95.0 Presence of cardiac pacemaker; I48.20 Chronic atrial fibrillation, unspecified; Z79.82 Long term (current) use of aspirin; Z95.5 Presence of coronary angioplasty implant and graft; I13.0 Hypertensive heart and chronic kidney disease with heart failure and stage 1 through stage 4 chronic kidney disease, or unspecified chronic kidney disease; E78.5 Hyperlipidemia, unspecified; M35.3 Polymyalgia rheumatica; G92.8 Other toxic encephalopathy; T43.505A Adverse effect of unspecified antipsychotics and neuroleptics, initial encounter; Z86.73 Personal history of transient ischemic attack (TIA), and cerebral infarction without residual deficits; G40.909 Epilepsy, unspecified, not intractable, without status epilepticus; Z87.891 Personal history of nicotine dependence; N17.9 Acute kidney failure, unspecified; N18.30 Chronic kidney disease, stage 3 unspecified; Z79.01 Long term (current) use of anticoagulants; K57.92 Diverticulitis of intestine, part unspecified, without perforation or abscess without bleeding; I50.32 Chronic diastolic (congestive) heart failure

== ENCOUNTER 2024-12-27 15:41 | Inpatient (IN) ==
--- NOTE | 2024-12-27 16:00 | Emergency Department Note ---
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 Referrals: Steve Hooker MD [Primary Care Provider] - Discharge Problem: Injury of right elbow Qualifiers: Encounter type: initial encounter Qualified Code(s): S59.901A - Unspecified injury of right elbow, initial encounter
[2024-12-27] MEDS: LIDOCAINE/EPINEPH/TETRACAINE 1 EA SYR EXT ONE (16:24)
[2024-12-27 17:05] LABS: Hematocrit (blood only) 40.4 % (37.0-47.0); Hemoglobin 13.0 g/dl (12.0-16.0); Immature Granulocytes # (auto) 0.01 K/uL (0.01-0.20); Immature Granulocytes % (auto) 0.1 %; Mean Corpuscular Hemoglobin 29.0 pg (25.0-34.0); Mean Corpuscular Volume 90.0 fL (80.0-100.0); Platelet Count 256 K/uL (130-400); RDW Standard Deviation 50.5 fL (36.4-46.3); Red Blood Count 4.49 M/uL (4.20-5.40); White Blood Count 7.01 K/ul (4.8-10.8)
--- NOTE | 2024-12-27 17:08 | CT Scan Report ---
CT head without contrast History: Trauma Comparison: None Technique: Using multidetector thin collimation helical acquisition technique, axial, coronal and sagittal CT images from the skull base to the vertex were obtained without intravenous contrast. Dose reduction techniques were achieved by using automatic exposure control and/or adjustment of mA and/or kV according to patient size and/or use of iterative reconstruction technique. Findings: No intracranial hemorrhage, mass-effect, or midline shift. The ventricles are proportionate to the cerebral sulci. The logan to white matter differentiation of the cerebral hemispheres is preserved. The basal cisterns are patent. Moderate cerebral atrophy. The visualized paranasal sinuses are clear. Mastoid air cells are clear. Impression: No acute intracranial pathology. Electronically signed by Marbin Bauer 12-27-2024 5:07 PM
[2024-12-27] MEDS: DIPHTHER/TETAN/PERTUS Vaccine (Tdap, Adol/Adult) 0.5mL IM ONE (17:13)
[2024-12-27] MEDS: SODIUM CHLORIDE 0.9% 250 ML IV ONE (17:14)
[2024-12-27 17:46] LABS: Appearance Urine Cloudy (Clear); Bacteria Urine Automated 4+ (None Seen); Glucose Urine UA Negative (Negative); RBC Urine Automated 0-2 /hpf (0-2); WBC Urine Automated >50 /hpf (0-5)
[2024-12-27 17:49] LABS: Alanine Aminotransferase 47 U/L (7-52); Albumin Globulin Ratio 1.3 (0.9-2); Alkaline Phosphatase 182 U/L (34-104); Anion Gap 8 (3-11); Bilirubin,Total 0.3 mg/dl (0.2-1.0); Blood Urea Nitrogen 36 mg/dl (6-23); Calcium 9.6 mg/dl (8.6-10.3); Carbon Dioxide 30 mmol/L (21-32); Chloride 102 mmol/L (98-107); Globulin 2.7 gm/dl (2.5-4.0); Glucose 178 mg/dl (70-99(Fasting)); Magnesium 2.4 mg/dl (1.7-2.4); Sodium 140 mmol/L (136-145); Total Protein 6.2 gm/dl (6.0-8.3)
[2024-12-27 18:25] LABS: Partial Thromboplastin Time 57 Seconds (21-31); Prothrombin Time > 90.0 Seconds (9.0-12.0)
[2024-12-27] MEDS: GELATIN SPONGE 12-7MM ONE (18:28)
[2024-12-27] MEDS: ACETAMINOPHEN 1,000 MG/100 ML VIAL IV STA (18:28)
[2024-12-27 18:30] LABS: INR > 9.5 (0.9-1.1)
[2024-12-27] MEDS: cefTRIAXone SODIUM 2,000 MG/50 ML BAG IV STA (18:46)
--- NOTE | 2024-12-27 18:53 | XRay Report ---
EXAMINATION: X-ray elbow right minimum 3 view routine CLINICAL HISTORY: Trauma, pain PRIORS: None TECHNIQUE: 3 views right elbow. FINDINGS: Moderate bordering on advanced osseous demineralization noted. No anterior or posterior elbow joint effusion. Mild to moderate soft tissue swelling posterior to the distal humerus identified on the lateral view. No displaced fracture or dislocation. Small osteophyte or enthesophyte of the lateral epicondyle of the humerus. IMPRESSION: No plain film evidence of an acute osseous abnormality. Electronically signed by Esperanza Coates 12-27-2024 6:53 PM
[2024-12-27] MEDS: PHYTONADIONE 5 MG in DEXTROSE 5% 50 ML IV ONE (19:11)
--- NOTE | 2024-12-27 21:36 | History & Physical Report ---
Date of Service December 27, 2024 Assessment & Plan (1) Supratherapeutic INR: (2) Acute kidney injury superimposed on chronic kidney disease: (3) Skin tear of right upper extremity: (4) Acute UTI: (5) Anticoagulated on Coumadin: Plan: 89-year-old female with history of dementia, recurrent UTI, urinary continence, CHF diastolic type, CAD, sick sinus syndrome status post pacemaker placement, paroxysmal atrial fibrillation on Coumadin, seizure disorder, presenting with bleeding from the left arm which started yesterday. Left arm skin tear with bleeding Supratherapeutic INR, on Coumadin for chronic paroxysmal atrial fibrillation Skin tear may have been sustained from car seat belt 1 day ago as per daughter INR greater than 9, vitamin K given hemoglobin at baseline As per patient's daughter Saray, she is the one giving her mother her daily medications, no recent changes, takes 4 mg Tuesdays and , 6 mg other days, no recent antibiotic usage Check INR daily Wound care nurse consult possible Recurrent UTI Urinary continence History of Proteus, and Enterococcus faecalis from previous urine cultures follow-up urine culture empiric IV Zosyn Mild acute kidney injury gentle IV fluids hold torsemide other chronic medical problems: chronic diastolic heart failure (EF 60 to 65%, TTE 2019) hx CAD status post angioplasty SSS status post PPM on Coumadin- hold coumadin valvular heart disease (mild AR/MR/TR) hx CVA hyperlipidemia COPD DM 2 diet-controlled, well-controlled as of last hemoglobin A1c of 5.6 2022 hypothyroidism, euthyroid as of recent TSH last June, Seizure disorder, stable on Keppra DVT prophylaxis INR supratherapeutic CODE STATUS DNR/DNI confirmed with patient's daughter Disposition Lives with Daughter at home plan of care discussed with patient's daughter in detail and at length all questions answered she is understanding, agreeable, comfortable with the plan of care History of Present Illness Chief Complaint: bleeding from L arm since yesterday Primary Care Provider: Steve Hooker MD 89-year-old female with history of dementia, recurrent UTI, urinary continence, CHF diastolic type, CAD, sick sinus syndrome status post pacemaker placement, paroxysmal atrial fibrillation on Coumadin, seizure disorder, presenting with bleeding from the left arm which started yesterday. History obtained from patient's daughter Saray over the phone. Saray currently lives with her mother and is her main caregiver. She sets her mother's medications daily. Yesterday, after coming from her son's house, she was noted to have what looks like a burn emma on her left arm. Family thinks it could have been from the seatbelt strap she was wearing recently. Yesterday, the burn ansari started to bleed and family applied dressings on it to stop the bleeding. Unfortunately, bleeding continued, hence patient was brought to the urgent care and was directed to go to the ER. At the ER, Afebrile, patient received with stable vital signs overall. INR found to be more than 9 hemoglobin 13 which is her baseline Left elbow x-ray did not show any signs of fractures. Head CT no acute process. UA showing possible UTI Urine cultures pending ER team applied Steri-Strips on the skin tears of the left arm and applied dressing as well. she was given vitamin K 5 mg IV. on my exam, patient seen resting in bed, comfortable, not in distress She is pleasantly confused but able to state that she is in the hospital and able to state children's names. Has mild discomfort over the left arm and lower abdomen. Denies fevers or chills, shortness of breath, cough, nausea or vomiting Allergies Allergy/AdvReac Type Severity Reaction Status Date / Time metoclopramide Allergy Intermediate neuro Verified 12/27/24 17:05 complications adhesive Allergy Unknown ALLERGY TO Verified 12/27/24 17:05 TAPE doxycycline AdvReac Intermediate NAUSEA/VOMI Verified 12/27/24 17:05 TING naproxen [From Naprosyn] AdvReac Intermediate CAN'T Verified 12/27/24 17:05 TOLERATE, DEPRESSED, EMOTIONAL Home Medications Medication Instructions Recorded Confirmed Type aspirin 81 mg tablet,delayed 81 mg PO 3XWK 08/20/19 12/27/24 History release atorvastatin 40 mg tablet 40 mg PO DAILY 08/20/19 12/27/24 History isosorbide mononitrate 30 mg 30 mg PO QAM 08/20/19 12/27/24 History tablet,extended release 24 hr magnesium oxide 400 mg PO QAM 08/20/19 12/27/24 History omeprazole 20 mg capsule,delayed 20 mg PO DAILYBB 08/20/19 12/27/24 History release potassium chloride 10 mEq 10 meq PO DAILY 08/20/19 12/27/24 History tablet,extended release(part/cryst) (Klor-Con M) acetaminophen 500 mg tablet 1,000 mg PO Q6H PRN Pain 06/20/21 12/27/24 History (Tylenol Extra Strength) levetiracetam 500 mg tablet 500 mg PO BID 06/20/21 12/27/24 History metoprolol succinate 25 mg 25 mg PO DAILY 06/20/21 12/27/24 History tablet,extended release 24 hr multivitamin-ferrous 1 tab PO DAILY 06/20/21 12/27/24 History fumarate-folic acid 18 mg-400 mcg tablet (Centrum) oxycodone-acetaminophen 10 mg-325 1 tab PO Q6H PRN Severe Pain 06/20/21 12/27/24 History mg tablet (Scale Score 7-10) trazodone 50 mg tablet 25 mg PO HS 06/20/21 12/27/24 History warfarin 4 mg tablet See Rx Instructions .Route .COMPLEX 06/20/21 12/27/24 History duloxetine 60 mg capsule,delayed 60 mg PO QAM 06/28/22 12/27/24 History release cetirizine 10 mg tablet (Zyrtec) 10 mg PO QAM 06/26/23 12/27/24 History cholecalciferol (vitamin D3) 50 50 mcg PO DAILY 06/26/23 12/27/24 History mcg (2,000 unit) capsule (Vitamin D3) polyethylene glycol 3350 17 17 g PO DAILY PRN Constipation 06/26/23 12/27/24 History gram/dose oral powder (Miralax) torsemide 20 mg tablet 20 mg PO BID 06/26/23 12/27/24 History bupropion HCl 100 mg tablet,12 hr 100 mg PO DAILY 10/05/24 12/27/24 History sustained-release triamcinolone acetonide 0.1 % 1 applic topical BID PRN Skin 10/05/24 12/27/24 History topical ointment Irritation docusate sodium 100 mg capsule 200 mg PO BID 12/27/24 12/27/24 History Past Med/Surg History Problem List (Updated 12/27/24 @ 21:10 by Jolly Richey PA-C) Injury of right elbow (Acute) Skin tear of right upper extremity (Acute) Anticoagulated on Coumadin (Acute) Acute UTI (Acute) Supratherapeutic INR (Acute) Acute confusion (Acute) Acute kidney injury superimposed on chronic kidney disease (Acute) Generalized weakness (Acute) Encephalopathy Dehydration (Acute) Acute UTI (Acute) HARJEET (acute kidney injury) (Acute) Acute confusion (Acute) Localized osteoarthritis of left knee Knee injury Urinary tract infection due to Proteus Chronic atrial fibrillation Preop cardiovascular exam Closed intertrochanteric fracture of left femur CKD (chronic kidney disease), stage III Chronic diastolic heart failure Abnormal finding on urinalysis Fall (Acute) Hematuria Weakness (Acute) Need for physical therapy assessment (Acute) Weakness (Acute) Chronic pain CVA (cerebral vascular accident) Warfarin therapy started Anticoagulated (Acute) Seizure-like activity (Acute) Status post placement of cardiac pacemaker Paroxysmal atrial fibrillation Acute kidney injury superimposed on CKD (Acute) Polymyalgia rheumatica (Chronic) 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Acute) Symptomatic bradycardia (Acute) Diastolic CHF (Chronic) Hypomagnesemia (Chronic) HTN (hypertension) (Chronic) Chronic back pain (Chronic) GERD (gastroesophageal reflux disease) (Chronic) CKD stage 3 due to type 1 diabetes mellitus (Chronic) DM type 2 (diabetes mellitus, type 2) (Chronic) Dyslipidemia (Chronic) CAD (coronary artery disease) (Chronic) "1997 - PTCA to RCA 2011 - cath that showed patent RCA and no further disease" Medical History History of nephrolithiasis Surgical History S/P hysterectomy S/P appendectomy S/P cholecystectomy History of lithotripsy History of cystoscopy History of PTCA Family History Aunt Breast cancer Mother Diabetes Coronary heart disease Father Silicosis Social History Smoking Status: Never smoker Tobacco Type: Cigarettes packs per day: 0.5; Second Hand Exposure: No; Do You Dip or Chew Tobacco: No; Hx Alcohol Use: No Hx Substance Use: No Preferred Language: Pashto Communication Ability: Impaired Visual Impairment: 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 Required: No Beliefs That Will Affect Care: None marital status: / Current Living Situation: Alone Current Living Situation Comment: children help with care but do not live with her Feels Safe at Home: Yes Assistive Devices: Walker Review of Systems Review of Systems: all noted and negative except for above Physical Exam Physical Exam: General- oriented x 1-2, not in distress, speaks in sentences with no effort or accessory muscle use Head- atraumatic Eyes- PERRL, EOMI, anicteric ENT- oropharynx clear Neck- supple, no JVD, no adenopathy, no thyromegaly; carotids +2/2, no bruits appreciated Lungs- clear to auscultation bilaterally, no rales/wheezes Heart- normal rate, regular rhythm; no murmur, no gallop, no rub appreciated Abdomen- normal bowel sounds, nondistended, soft, nontender, no masses or hepatosplenomegaly Extremities- Right forearm heavy dressing in place, no bleeding mild lower extremity edema, but no redness warmth or tenderness Neuro- alert, oriented x 1-2; pleasantly confused,CN 2-12 grossly intact; motor 5/5 bilaterally;sensation 100% on all extremities; no other gross focal neur ologic deficits Skin- warm & dry Results & Data Results & Data Vital Signs (Past 12 Hours) Vital Signs Temp Pulse Pulse Resp BP BP Pulse Ox 12/27/24 21:10 78 19 151/90 H 92 12/27/24 19:00 63 18 151/106 H 99 12/27/24 18:36 63 12/27/24 17:42 72 20 133/70 90 12/27/24 16:16 96 12/27/24 15:49 36.6 C 84 20 123/89 95 O2 Del Method 12/27/24 21:10 Room Air 12/27/24 19:00 Room Air 12/27/24 18:36 12/27/24 17:42 Room Air 12/27/24 16:16 Room Air 12/27/24 15:49 Room Air all noted and reviewed including below Code Status & VTE Plan VTE Prophylaxis Plan VTE Prophylaxis will be ordered: Yes
[2024-12-27] MEDS ORDERED: POLYETHYLENE (MIRALAX) 17 GM PACK PO PRN (21:45)
[2024-12-27] MEDS ORDERED: ACETAMINOPHEN 325 MG TAB PO PRN (21:49)
[2024-12-27] MEDS: SODIUM CHLORIDE 0.9% 500 ML IV SCH (21:59)
[2024-12-27] MEDS: PIPERACILLIN/TAZOBACTAM 4.5 GM/100 ML BAG IV SCH (22:05)
[2024-12-27] MEDS: Patient's HEIGHT &/or WEIGHT Needed STA (22:36)
[2024-12-27] MEDS: levETIRAcetam 500 MG TAB PO SCH (22:50)
[2024-12-27] MEDS: ACETAMINOPHEN 500 MG TAB PO PRN (22:51)
[2024-12-27 23:05] LABS: Potassium 4.0 mmol/L (3.5-5.1)
[2024-12-28] MEDS: PIPERACILLIN/TAZOBACTAM 4.5 GM/100 ML BAG IV SCH (01:58)
[2024-12-28] MEDS: CETIRIZINE HCL 10 MG TABLET PO SCH (07:47)
[2024-12-28] MEDS: CHOLECALCIFEROL 25 MCG (1000 UNITS) TAB PO SCH (07:47)
[2024-12-28] MEDS: ATORVASTATIN 40 MG TAB PO SCH (07:48)
[2024-12-28] MEDS: CEROVITE ADV FORMULA TAB PO SCH (07:48)
[2024-12-28] MEDS: ISOSORBIDE MONO EXTENDED REL 30 MG TABCR PO SCH (07:48)
[2024-12-28] MEDS: METOPROLOL SUCC 25MG EXT REL TAB PO SCH (07:49)
[2024-12-28] MEDS: MAGNESIUM OXIDE 400 MG TAB PO SCH (07:49)
[2024-12-28] MEDS: POTASSIUM CHLORIDE 10 MEQ TABCR PO SCH (08:10)
[2024-12-28] MEDS: DOCUSATE SODIUM 100 MG CAP PO SCH (08:10)
[2024-12-28 08:20] LABS: Hematocrit (blood only) 38.0 % (37.0-47.0); Hemoglobin 12.3 g/dl (12.0-16.0); Immature Granulocytes # (auto) 0.03 K/uL (0.01-0.20); Immature Granulocytes % (auto) 0.4 %; Mean Corpuscular Hemoglobin 28.9 pg (25.0-34.0); Mean Corpuscular Volume 89.4 fL (80.0-100.0); Platelet Count 218 K/uL (130-400); RDW Standard Deviation 49.7 fL (36.4-46.3); Red Blood Count 4.25 M/uL (4.20-5.40); White Blood Count 6.98 K/ul (4.8-10.8)
[2024-12-28 08:40] LABS: Alanine Aminotransferase 40.0 U/L (7-52); Albumin Globulin Ratio 1.2 (0.9-2); Alkaline Phosphatase 156.0 U/L (34-104); Anion Gap 6.0 (3-11); Bilirubin,Total 0.7 mg/dl (0.2-1.0); Blood Urea Nitrogen 31.0 mg/dl (6-23); Calcium 9.2 mg/dl (8.6-10.3); Carbon Dioxide 31.0 mmol/L (21-32); Chloride 103.0 mmol/L (98-107); Creatinine Clr Calc Pharmacy 23.7 ml/min; Globulin 2.6 gm/dl (2.5-4.0); Glucose 93.0 mg/dl (70-99(Fasting)); Potassium 3.6 mmol/L (3.5-5.1); Sodium 140.0 mmol/L (136-145); Total Protein 5.8 gm/dl (6.0-8.3)
[2024-12-28 08:44] LABS: INR 1.7 (0.9-1.1); Prothrombin Time 17.7 Seconds (9.0-12.0)
[2024-12-28] MEDS ORDERED: FAMOTIDINE 20 MG TAB PO PRN (11:51)
--- NOTE | 2024-12-28 15:22 | Hospitalist Progress Note ---
Date of Service December 28, 2024 Assessment & Plan (1) Supratherapeutic INR: (2) Acute kidney injury superimposed on chronic kidney disease: (3) Skin tear of right upper extremity: (4) Acute UTI: (5) Anticoagulated on Coumadin: Plan: 89-year-old female with history of dementia, recurrent UTI, urinary continence, CHF diastolic type, CAD, sick sinus syndrome status post pacemaker placement, paroxysmal atrial fibrillation on Coumadin, seizure disorder, presenting with bleeding from the left arm which started yesterday. Left arm skin tear with bleeding Supratherapeutic INR, on Coumadin for chronic paroxysmal atrial fibrillation -Skin tear may have been sustained from car seat belt 1 day ago as per daughter -INR greater than 9, vitamin K given -hemoglobin at baseline -As per patient's daughter Saray, she is the one giving her mother her daily medications, no recent changes, takes 4 mg Tuesdays and , 6 mg other days, no recent antibiotic usage Plan: -Check INR daily -Wound care nurse consult -PT/OT ordered #E. coli Complicated UTI #Urinary continence -History of Proteus, and Enterococcus faecalis from previous urine cultures -urine culture growing E. coli Plan: -follow-up urine culture -empiric IV Zosyn until sensitivities back Mild acute kidney injury -hold torsemide other chronic medical problems: chronic diastolic heart failure (EF 60 to 65%, TTE 2019) hx CAD status post angioplasty SSS status post PPM on Coumadin- hold coumadin valvular heart disease (mild AR/MR/TR) hx CVA hyperlipidemia COPD DM 2 diet-controlled, well-controlled as of last hemoglobin A1c of 5.6 2022 hypothyroidism, euthyroid as of recent TSH last June, Seizure disorder, stable on Keppra I spent a total of 45 minutes in direct patient care, including [id number] time with the patient and/or family, reviewing medical records, ordering and reviewing diagnostic tests, and coordinating care with other healthcare providers. This time includes: history taking, physical examination, medical decision making, counseling, ECG interpretation, imaging interpretation, lab interpretation, orders, and education, excluding time spent in the performance of separately billed services. Admission and Anticipated Discharge Date Admission Date: December 27, 2024 Subjective Patient seen and examined at bedside. Patient doing ok today. She states she is comfortable at this time. Review of Systems Review of Systems: CONSTITUTIONAL: Patient denies fevers, chills, sweats and weight changes. EYES: Patient denies any visual symptoms. EARS, NOSE, AND THROAT: No difficulties with hearing. No symptoms of rhinitis or sore throat. CARDIOVASCULAR: Patient denies chest pains, palpitations, orthopnea and paroxysmal nocturnal dyspnea. RESPIRATORY: No dyspnea on exertion, no wheezing or cough. GI: No nausea, vomiting, diarrhea, constipation, abdominal pain, hematochezia or melena. : No urinary hesitancy or dribbling. No nocturia or urinary frequency. No abnormal urethral discharge. MUSCULOSKELETAL: right arm wound NEUROLOGIC: No chronic headaches, no seizures. Patient denies numbness, tingling or weakness. PSYCHIATRIC: Patient denies problems with mood disturbance. No problems with anxiety. ENDOCRINE: No excessive urination or excessive thirst. DERMATOLOGIC: Patient denies any rashes or skin changes. Physical Exam Physical Exam: Gen: A&O 3 NAD HEENT: NCAT, EOMI, not icteric. External ears normal. No rhinorrhea. Moist mucous membranes. Neck: Supple, full range of motion, no observable masses, No meningeal sign. Lungs: No Respiratory distress. CV: RRR, no edema. Abdomen: Soft, nondistended, No rebound tenderness. MSK: appears weak overall, sarcopenia noted, right arm in wound wrappings Skin: No rashes, petechiae, lesions. Normal color per patient. Neuro: Normal Gait, Grossly intact. Psych: Appropriate for situation. Results & Data Results & Data Vital Signs (Past 12 Hours) Vital Signs Temp Pulse Pulse Resp BP Pulse Ox O2 Del Method 12/28/24 11:49 36.3 C L 60 20 132/81 99 Room Air 12/28/24 08:23 36.3 C L 64 20 152/81 H 97 Room Air 12/28/24 08:00 62 Laboratory Results -personally reviewed, INR 1.7 today, creatinine around baseline Medications Administered Acetaminophen (Acetaminophen 500 Mg Tab) 1,000 mg PO Q6H PRN PRN Reason: Pain Stop: 01/26/25 21:44 Last Admin: 12/28/24 06:13 Dose: 1,000 mg Documented By: Admin: 12/27/24 22:51 Dose: 1,000 mg Documented By: AES Atorvastatin Calcium (Atorvastatin 40 Mg Tab) 40 mg PO DAILY [facility] Stop: 01/27/25 08:59 Last Admin: 12/28/24 07:48 Dose: 40 mg Documented By: KATHYA Bupropion HCl (Bupropion Sr 100 Mg Tabcr) 100 mg PO DAILY [facility] Stop: 01/27/25 08:59 Last Admin: 12/28/24 07:49 Dose: 100 mg Documented By: KATHYA Docusate Sodium (Docusate Sodium 100 Mg Cap) 200 mg PO BID [facility] Stop: 01/27/25 08:59 Last Admin: 12/28/24 08:10 Dose: 200 mg Documented By: KATHYA Duloxetine HCl (Duloxetine Hcl 60 Mg Cap) 60 mg PO QAM [facility] Stop: 01/27/25 08:59 Last Admin: 12/28/24 07:47 Dose: 60 mg Documented By: KATHYA Piperacillin Sod/Tazobactam Sod (Zosyn) 4.5 gm in 100 mls @ 25 mls/hr IV Q8H [facility]; Protocol Stop: 01/02/25 01:59 Last Infusion: 12/28/24 13:37 Dose: Infused Documented By: Admin: 12/28/24 09:34 Dose: 25 mls/hr Documented By: RLUrban Infusion: 12/28/24 07:45 Dose: Infused Documented By: Infusion: 12/28/24 03:30 Dose: 25 mls/hr Documented By: Infusion: 12/28/24 02:41 Dose: 0 mls/hr Documented By: Admin: 12/28/24 01:58 Dose: 25 mls/hr Documented By: AES Isosorbide Mononitrate (Isosorbide [place] Extended Rel 30 Mg Tabcr) 30 mg PO QAM [facility] Stop: 01/27/25 08:59 Last Admin: 12/28/24 07:48 Dose: 30 mg Documented By: KATHYA Levetiracetam (Levetiracetam 500 Mg Tab) 500 mg PO BID [facility] Stop: 01/26/25 21:59 Last Admin: 12/28/24 07:48 Dose: 500 mg Documented By: RLUrban Admin: 12/27/24 22:50 Dose: 500 mg Documented By: MANUEL Magnesium Oxide (Magnesium Oxide 400 Mg Tab) 400 mg PO QAM [facility] Stop: 01/27/25 08:59 Last Admin: 12/28/24 07:49 Dose: 400 mg Documented By: RLUrban Metoprolol Succinate (Metoprolol Succ 25mg Ext Rel Tab) 25 mg PO DAILY [facility] Stop: 01/27/25 08:59 Last Admin: 12/28/24 07:49 Dose: 25 mg Documented By: RLUrban Multivitamins/Minerals (Cerovite Adv Formula Tab) 1 tab PO DAILY [facility] Stop: 01/27/25 08:59 Last Admin: 12/28/24 07:48 Dose: 1 tab Documented By: KATHYA Pantoprazole Sodium (Pantoprazole 40 Mg Tab) 40 mg PO DAILYBB [facility] Stop: 01/27/25 06:29 Last Admin: 12/28/24 06:13 Dose: 40 mg Documented By: AES Potassium Chloride (Potassium Chloride 10 Meq Tabcr) 10 meq PO DAILY [facility] Stop: 01/27/25 08:59 Last Admin: 12/28/24 08:10 Dose: 10 meq Documented By: KATHYA Vitamin D (Cholecalciferol 25 Mcg (1000 Units) Tab) 50 mcg PO DAILY [facility] Stop: 01/27/25 08:59 Last Admin: 12/28/24 07:47 Dose: 50 mcg Documented By: KATHYA
[2024-12-29 06:46] LABS: Hematocrit (blood only) 37.0 % (37.0-47.0); Hemoglobin 12.2 g/dl (12.0-16.0); Mean Corpuscular Hemoglobin 29.8 pg (25.0-34.0); Mean Corpuscular Volume 90.2 fL (80.0-100.0); Platelet Count 220 K/uL (130-400); RDW Standard Deviation 50.4 fL (36.4-46.3); Red Blood Count 4.10 M/uL (4.20-5.40); White Blood Count 7.68 K/ul (4.8-10.8)
[2024-12-29 07:17] LABS: INR 1.3 (0.9-1.1); Prothrombin Time 13.5 Seconds (9.0-12.0)
[2024-12-29 07:32] LABS: Anion Gap 6.0 (3-11); Blood Urea Nitrogen 30.0 mg/dl (6-23); Calcium 9.4 mg/dl (8.6-10.3); Carbon Dioxide 28.0 mmol/L (21-32); Chloride 107.0 mmol/L (98-107); Creatinine Clr Calc Pharmacy 21.5 ml/min; Glucose 101.0 mg/dl (70-99(Fasting)); Magnesium 2.3 mg/dl (1.7-2.4); Potassium 3.5 mmol/L (3.5-5.1); Sodium 141.0 mmol/L (136-145)
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
[2024-12-29] MEDS: cefTRIAXone SODIUM 2,000 MG/50 ML BAG IV SCH (17:12)
[2024-12-30 06:13] LABS: Hematocrit (blood only) 35.2 % (37.0-47.0); Hemoglobin 11.5 g/dl (12.0-16.0); Mean Corpuscular Hemoglobin 29.3 pg (25.0-34.0); Mean Corpuscular Volume 89.8 fL (80.0-100.0); Platelet Count 206 K/uL (130-400); RDW Standard Deviation 49.6 fL (36.4-46.3); Red Blood Count 3.92 M/uL (4.20-5.40); White Blood Count 6.82 K/ul (4.8-10.8)
[2024-12-30 06:32] LABS: Anion Gap 4.0 (3-11); Blood Urea Nitrogen 28.0 mg/dl (6-23); Calcium 9.4 mg/dl (8.6-10.3); Carbon Dioxide 29.0 mmol/L (21-32); Chloride 108.0 mmol/L (98-107); Creatinine Clr Calc Pharmacy 21.4 ml/min; Glucose 100.0 mg/dl (70-99(Fasting)); Potassium 3.7 mmol/L (3.5-5.1); Sodium 141.0 mmol/L (136-145)
[2024-12-30 06:50] LABS: INR 1.2 (0.9-1.1); Prothrombin Time 12.9 Seconds (9.0-12.0)
[2024-12-30 07:40] VITALS: RESP 16; O2SAT 95
[2024-12-30 11:49] VITALS: TEMP 97.7
[2024-12-30 14:17] VITALS: BP 151/90; PULSE 63
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
== END 2024-12-30 15:00 | disposition home health service (06) | DRG 813 ==
LOC: ED 15:41 → 2W 19:18 → SUATTDRO 19:18 → 2W 21:10